=== PATIENT | female | born 1955 | race Caucasian/White ===

== ENCOUNTER 2016-03-07 19:33 | Emergency (ER) | payer BC ==
[~2016-03-07 19:33] MED LIST: /PANT40TA OR; /SUCR1TA OR; ACIPHEX OR; ALBUTEROL INH; ATEN100T OR; BACL10TA2; BACL10TA2 OR; BACL10TA2 PO; CETI10TA OR; CLON0.5T OR; DYMI137S; EFFE150C OR; ESTRACE CREAM PV; FLON0.05; Hydrocodone OR; KEFL500C7 PO; LAST0.25 OU; LIDO5DIS EXT; LIPI20TA OR; LISI10TA4 OR; LOSA25TA8 PO; LOTEMAX OU; MAGN500T2 PO; METO25TA2; MIRALEX OR; MULTIVIT PO; NEUR100C OR; NORT10CA2 OR; OMEP20TA7 OR; OMEPRAZOLE BICARB PO; PATADAY OU; PENNSAID TOP; RESTASIS EYE DROPS OU; SAVELLA OR; SEPT800T OR; SING10TA31 OR; TOPI50TA OR; TPS CREAM TOP; TRAM50TA2; TRAM50TA2 OR; TRAMADOL OR; TRAZ50TA OR; ULTR200T OR; ULTR300T; VENL100T PO; VENL25TA2 OR; VENTAER IN; VICO10TA11 PO; VICO5TAB; VICODINES TAB PO; VITAMIN B-6 PO; VOLT1GEL EX; VOLT1GEL TOP; ZOLO50TA PO; [UNRECOGNIZED DRUG - CODE] OR
[2016-03-07] MEDS ORDERED: CLOPIDOGREL 300 MG TAB (PLAVIX) ONE (19:34)
[2016-03-07] MEDS ORDERED: TENECTEPLASE 50 MG KIT (TNKase)(J3101) ONE (19:34)
[2016-03-07] MEDS ORDERED: NITROGLYCERIN 2% OINT 1 GM *U/D* PKT As Ordered ONE (20:07)
[2016-03-07] MEDS ORDERED: ISOVUE-370 76% 100ML VIAL (Q9967) As Ordered ONE (20:12)
[2016-03-07 20:19] LABS: BASO % 0.2 % (0.0-1.0); EOS # 0.1 K/mm3 (0.0-0.50); LARGE UNSTAINED CELL # 0.3 K/mm3 (0.0-0.4); LARGE UNSTAINED CELL % 2.4 % (0.0-4.0); LYMPH # 2.4 K/mm3 (1.5-4.5); LYMPH % 20.4 % (24.0-44.0); MEAN CORPUSCULAR HGB CONC 34.8 g/dl (32.0-36.5); MONO # 0.6 K/mm3 (0.0-0.8); MONO % 4.7 % (0.0-5.0); NEUTROPHILS # 8.3 K/mm3 (1.8-7.7); NEUTROPHILS % 71.3 % (36.0-66.0); PLATELET COUNT, AUTOMATED 302 k/mm3 (150-450); RED CELL DISTRIBUTION WIDTH 12.9 % (11.5-14.5); WHITE BLOOD COUNT 11.6 K/mm3 (4.0-10.0)
[2016-03-07 20:26] LABS: INR 0.91
[2016-03-07] MEDS ORDERED: LABETALOL HCL 100 MG/20 ML VIAL As Ordered ONE (20:33)
[2016-03-07] MEDS ORDERED: fentaNYL 100 MCG/2 ML INJECTION (J3010) As Ordered ONE ×2 (20:33→21:15)
[2016-03-07 20:40] LABS: ANION GAP 12 MEQ/L (8-16); BLOOD UREA NITROGEN 12 MG/DL (7-18); CALCIUM LEVEL 8.8 MG/DL (8.8-10.2); CARBON DIOXIDE LEVEL 24 MEQ/L (21-32); CHLORIDE LEVEL 104 MEQ/L (98-107); CREATININE FOR GFR 0.67 MG/DL (0.55-1.02); GLOMERULAR FILTRATION RATE > 60.0 (>45); GLUCOSE, FASTING 138 MG/DL (80-110); POTASSIUM SERUM 3.3 MEQ/L (3.5-5.1); SODIUM LEVEL 140 MEQ/L (136-145)
[2016-03-07] MEDS ORDERED: hydrALAZINE INJ 20 MG/ML VIAL As Ordered ONE (20:56)
[2016-03-07] MEDS ORDERED: FAMOTIDINE 20 MG TAB As Ordered ONE (20:56)
[2016-03-07] MEDS ORDERED: HEPARIN SOD (PORCINE) 5000 UNITS/ML VIAL As Ordered ONE (20:56)
[2016-03-07] MEDS ORDERED: HEPARIN 25,000 UNITS/250 ML D5W BAG (100 UNITS/ML) As Ordered ONE (20:56)
--- NOTE | 2016-03-07 21:00 | REPUSA ---
Reason for examination : Rule out dissection Comparison: None. Technique: CAT scan of the thoracic and abdominal aorta was obtained with initial precontrast localiz ation. Post contrast thin section dynamic CAT scan was obtained and three-dimensional reconstructions were performed on an independent work station. Findings: AORTA: No aneurysmal dilatation or dissection. Scattered atherosclerotic calcifications noted. LUNG PARENCHYMA : No acute infiltrate, effusion, mass, suspicious nodule, or pneumothorax. Mild bilat eral lower linear atelectasis. HILUM AND MEDIASTINUM : No mass, suspicious cystic lesion, or enlarged adenopathy.. PLEURA : No mass or suspicious thickening. LOWER NECK/THYROID : Unremarkable AXILLA: No mass or enlarged adenopathy. Solid organs of the abdomen and pelvis are suboptimally evaluated the phase of injection. LIVER : Unremarkable GALLBLADDER : Unremarkable SPLEEN : Unremarkable PANCREAS : Unremarkable ADRENAL GLANDS : Unremarkable KIDNEYS : Unremarkable RETROPERITONEUM : No ascites, extraluminal air, or enlarged adenopathy. BOWEL : Normal caliber PELVIS : Uterus and adnexa are unremarkable. Left gluteal spinal stimulator device with wiring termin ating in the dorsal spinal canal at approximately T6-T7. OSSEOUS STRUCTURES : No acute fracture or suspicious lesion. Multilevel degenerative spurring of the spine. IMPRESSION: No aortic aneurysm or dissection.
--- NOTE | 2016-03-07 21:38 | EDDOCDS ---
Nurse's Notes [facility] Name: Lianne Tuttle Age: 60 yrs Sex: Female : 1955 Arrival Date: 03/07/2016 Time: 19:33 Bed 4 Private MD: Bill Tapia M.D. Diagnosis: ST elevation (STEMI) myocardial infarction of anterior wall Presentation: 03/07 19:41 Red Flag criteria, patient assessed and taken directly to a bed. 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 4 baby aspirin. Adult Sepsis Screening: The patient does not have new or worsening altered mentation. Patient has a respiratory rate of greater than or equal to 22 (1 point). Suicide/Homicide risk assessment- the patient denies having any suicidal and/or homicidal ideations and does not present with any other emotional, behavioral or mental health complaints. 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 Transition of care: patient was not received from another setting of care. 19:42 Acuity: JACLYN Level 2 sls1 19:42 Method Of Arrival: Walkin/Carried/Asstd sls1 21:29 Adult Sepsis Screening: Patient has a qSOFA score of 0- Negative Sepsis Screen. tm5 Triage Assessment: 19:51 General: Appears uncomfortable, Behavior is appropriate for age, cooperative. Pain: sls1 Location: chest Pain currently is 10 out of 10 on a pain scale. Pt Declines HIV testing. The patient is triaged at the bedside. See Assessment in Nurses Notes section of ED record. Neurological: No deficits noted. Cardiovascular: Chest pain is described as Pain is 10 out of 10 on a pain scale. radiates Does not radiate. episodes are continuous began 30 minutes prior to arrival. Respiratory: Airway is patent Respiratory effort is even, unlabored, Respiratory pattern is regular, symmetrical, Parent/caregiver reports the patient having shortness of breath at rest on exertion. Derm: No deficits noted. Historical: - Allergies: darvocet; Darvon; Morphine (Anxiety); - Home Meds: 1. naproxen 500 mg Oral tab 1 tab 2. Ventolin HFA 90 mcg/actuation Nebulizer HFAA 1 puff every 4 hours 3. Boniva 150 mg oral tab 1 tab monthly 4. rizatriptan 10 mg oral tab 1 tab 5. alendronate 70 mg/75 mL oral soln 75 mL once wkly 6. Lidoderm 5 % Topical ptmd 1 patch once daily 7. baclofen 10 mg Oral tab 1 tab 3 times per day 8. albuterol sulfate 90 mcg/actuation Inhl aepb 2 puffs every 4 hours 9. atenolol 100 mg Oral tab 50 mg once daily 10. Lipitor 20 mg Oral tab 1 tab once daily 11. Zyrtec 10 mg Oral cap 10 mg daily 12. clonazepam 0.5 mg Oral TbDL 1 tab 2 times per day 13. Voltaren 1 % Topical gel 4 times per day 14. gabapentin 400 mg Oral cap 1 cap 3 times per day 15. magnesium oxide 400 mg Oral tab twice a day 16. montelukast 10 mg oral tab 1 tab once daily 17. multivitamin Oral tab 1 tab daily 18. nortriptyline 25 mg Oral cap nightly 19. Protonix 40 mg Oral TbEC 1 tab 2 times per day 20. Restasis 0.05 % ophthalmic dpet 1 drop 2 times per day 21. Carafate 1 gram Oral tab 1 tab 4 times per day 22. Topamax 100 mg Oral tab 1 tab 2 times per day 23. Randolph 10-325 mg Oral tab every 8 hours 24. trazodone 50 mg Oral tab 3 tabs nightly 25. losartan 25 mg oral tab 1 tab once daily 26. Lastacaft 0.25 % ophthalmic drop once daily 27. Zoloft 50 mg Oral tab 1 tab once daily 28. Dymista 137-50 mcg/spray nasal spry - PMHx: Fibromyalgia; Hypertension; Migraine Headaches; hyperlipidemia; Anxiety; GERD; - PSHx: LASER DISC SURGERY LOWER BACK; Tonsillectomy; Cervical Discectomy; ; Sinus Surgery; Cataract Surgery- Bilateral; - Social history: Smoking status: Patient states was never smoker of tobacco. No barriers to communication noted, The patient speaks fluent Chinese, Speaks appropriately for age. - Family history: Not pertinent. - : The pt / caregiver states he / she is not on anticoagulants. Home medication list is obtained from the patient. - Exposure Risk Screening:: None identified. Screenin:01 Screening information is obtained from the patient. Fall risk: At risk due to prior tm5 history of falls. Assistance ADL's: requires no assistance with activities of daily living. Abuse/DV Screen: The patient / caregiver reports he/she is: not in a situation that causes fear, pain or injury. Nutritional screening: No deficits noted. Advance Directives: Currently, there is a health care proxy, [place]. home support is adequate. Assessment: 19:59 General: Appears uncomfortable, Behavior is appropriate for age, cooperative. Pain: tm5 Location: xyphoid area and mid-sternal area Pain currently is 8 out of 10 on a pain scale. Quality of pain is described as heavy, pressure, sharp, Pain began 30 min ago. Neurological: Level of Consciousness is awake, alert, Oriented to person, place, time. Cardiovascular: Capillary refill < 3 seconds in right fingers Heart tones S1 S2 present Rhythm is sinus bradycardia. Respiratory: Airway is patent Respiratory effort is even, unlabored, Respiratory pattern is regular, symmetrical, Breath sounds are clear bilaterally. GI: No deficits noted. : No deficits noted. Derm: Skin is pink, warm & dry. normal. Musculoskeletal: No deficits noted. 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 tm5 20:30 Reassessment: Patient states symptoms have improved. per pt chest pain is about 9/10 at tm5 this time, MD aware of this . Cardiovascular: Rhythm is sinus rhythm No ectopy. 21:26 Reassessment: Patient appears in no apparent distress at this time. Patient states tm5 symptoms have improved. pt still complains of mid sternal chest pain 9/10. Cardiovascular: Rhythm is sinus rhythm No ectopy. Vital Signs: 19:35 Pulse 48; Resp 22; Temp 96.3; Pulse Ox 100% ; Weight 90.72 kg; Height 5 ft. 2 in. cmb (157.48 cm); Pain 8/10; 19:41 Pulse 42 LA; mb9 19:51 BP 212 / 115; sls1 19:51 BP 198 / 105 (auto/); tm5 19:51 Pulse 62 MON; Resp 20 S; Pulse Ox 99% on 2 lpm NC; Pain 8/10; tm5 20:03 Weight 104.24 kg; Height 5 ft. 2 in. (157.48 cm) (M); feb 20:04 BP 203 / 95 (auto/); tm5 20:05 Pulse 58 MON; Pulse Ox 97% ; tm5 20:13 BP 181 / 93 (auto/); tm5 20:13 Pulse 60 MON; Pulse Ox 97% ; tm5 20:15 BP 174 / 96; Pulse 69; Resp 20; Pulse Ox 98% on R/A; Pain 8/10; tm5 20:29 BP 185 / 109 (auto/); tm5 20:29 Pulse 64 MON; Resp 20 S; Pulse Ox 98% on 4 lpm NC; Pain 9/10; tm5 20:35 BP 191 / 98 (auto/); tm5 20:35 Pulse 62 MON; Pulse Ox 98% on 4 lpm NC; tm5 21:10 BP 162 / 85; Pulse 77; Resp 20; Pulse Ox 98% on 4 lpm NC; Pain 9/10; tm5 21:10 BP 174 / 96; Pulse 74; Resp 20; Pulse Ox 98% on 4 lpm NC; Pain 8/10; tm5 21:26 BP 126 / 75; Pulse 88; Resp 20; Temp 98.6(O); Pulse Ox 98% on 4 lpm NC; Pain 8/10; tm5 20:03 Body Mass Index 42.03 (104.24 kg, 157.48 cm) ankita Vitals: 19:35 Log In Time: March 07, 2016 at 19:33. b ED Course: 19:34 Patient visited by [place]. cmb 19:34 Patient moved to Waiting cmb 19:35 Bill Tapia is Private Physician. cmb 19:38 RN notified that patient meets Red Flag criteria. cmb 19:39 Patient moved to 4 cmb 19:44 Triage Initiated sls1 19:46 Howard Rockwell DO is Attending Physician. mm11 19:46 Patient visited by Howard Rockwell DO. mm11 19:48 EKG done. (by ED staff). Reviewed by Howard Rockwell DO. ls3 19:57 Patient visited by Minerva Mancuso RN. tm5 19:57 Inserted saline lock: 18 gauge in right antecubital area The patient tolerated the tm5 procedure well. 19:58 ED physician to see patient. tm5 19:58 Inserted saline lock: 20 gauge in left antecubital area The patient tolerated the tm5 procedure well. 19:58 Missed attempts: 20 gauge X 2 in right hand, in left hand. tm5 20:01 The patient / caregiver is instructed regarding the plan of care and ED course. Cardiac tm5 monitor on. Pulse ox on. NIBP on. Family accompanied patient. 20:01 Warm blanket given. Pillow given. tm5 20:01 O2 via nasal cannula \T\ 2L/min. tm5 20:03 Patient visited by Howard Rockwell DO. mm11 20:24 Daphney Mccurdy,SHABANA is Primary Nurse. [facility] 20:29 Patient visited by Minerva Mancuso RN. tm5 20:29 Patient moved back from CT. tm5 20:31 Patient visited by Minerva Mancuso RN. tm5 20:31 [facility] [place] was scanned into [employer] and attached to record. gjb 20:31 Notified attending ED physician of MD aware of pt's blood pressure remaining elevated & tm5 her chest pain is still severe 10/29. 20:36 Patient visited by Minerva Mancuso RN. tm5 21:13 CT Chest Angio R/O PE Returned. EDMS 21:25 Patient visited by Minerva Mancuso RN. tm5 21:26 EKG done. (by ED staff). Reviewed by Howard Rockwell DO. armond 21:27 Patient visited by Mariann Ruiz PCA. armond 21:28 No procedures done that require assistance. tm5 Administered Medications: 20:06 Not Given (Duplicate Order): heparin (Thrombolytic Protocol, 12 units/kg/hr)) 56614 mm11 units IV at 12 units/kg/hr once; Max. dose 1000units/hr. No Lovenox past 18hrs/ draw labs. 20:06 Not Given (Duplicate Order): heparin (Thrombolytic Protocol, 60 units/kg)) 60 units/kg mm11 IVP once; max 4000 units. Ensure no Lovenox in past 18hr, labs drawn 20:15 Drug: Nitro-Bid 1 inches [Nitro-Bid 2 % transdermal ointment (1 inches)] Route: mgs Transdermal; Site: anterior chest wall; 20:36 Drug: fentaNYL (PF) 50 mcg [fentanyl (PF) 50 mcg/mL injection solution (1 mL)] Route: tm5 IVP; Site: left antecubital; 21:10 Follow up: BP 174 / 96; Pulse 74 bpm; Resp 20 bpm; Pulse Ox 98% 4 lpm Nasal Cannula; tm5 Pain 8/10 Adult; Response: No Adverse Reaction; Pain is decreased 20:38 Drug: Labetalol 10 mg [labetalol 5 mg/mL intravenous solution (2 mL)] Route: IVP; Rate: mgs bolus; Infused Over: 2 mins; Site: right antecubital; 21:26 Follow up: Response: Blood pressure is improved; No Adverse Reaction tm5 21:05 Drug: Tenecteplase (pt >90kg) 50 mg [tenecteplase 50 mg intravenous kit] Route: IV; mgs Rate: bolus; Site: right antecubital; :32 Follow up: Response: No Adverse Reaction tm5 21:09 Drug: hydrALAZINE 20 mg [hydralazine 20 mg/mL injection solution] Route: IV; Rate: tm5 bolus; Site: left antecubital; : Follow up: Response: Blood pressure is improved; No Adverse Reaction tm5 21:12 Drug: heparin (Thrombolytic Protocol, 60 units/kg)) 4000 units [heparin (porcine) 5,000 tm5 unit/mL injection solution (0.8 mL)] {Co-Signature: mgs (Howard Saxena RN).} Route: IVP; Site: right antecubital; :25 Follow up: Response: No Adverse Reaction; No significant change. tm5 21:13 Drug: Famotidine 20 mg [famotidine 20 mg tablet (1 tabs)] Route: PO; tm5 21:13 Drug: heparin (Thrombolytic Protocol, 12 units/kg/hr)) 73790 units [heparin (porcine) tm5 25,000 unit/250 mL (100 unit/mL) in dextrose 5 % IV] {Co-Signature: mgs (Howard Saxena RN).} Route: IV; Rate: 1000 units/hr; Site: right antecubital; :25 Follow up: IV Status: Infusion continued on transport tm5 21:25 Drug: fentaNYL (PF) 75 mcg [fentanyl (PF) 50 mcg/mL injection solution (1.5 mL)] Route: tm5 IVP; Site: left antecubital; :26 Follow up: Response: Pt left department before re-evaluation is appropriate tm5 21:25 Drug: Plavix - Clopidogrel 300 mg [clopidogrel 75 mg tablet (4 tabs)] Route: PO; mar 11: Follow up: Response: Pt left department before re-evaluation is appropriate tm5 Order Results: Lab Order: Basic Metabolic Profile; SPEC'M 03/07/16 19:47 Test: GLUCOSE, FASTING; Value: 138; Range: 80-110; Abnormal: Above high normal; Units: MG/DL; Status: F Test: BLOOD UREA NITROGEN; Value: 12; Range: 7-18; Units: MG/DL; Status: F Test: CREATININE FOR GFR; Value: 0.67; Range: 0.55-1.02; Units: MG/DL; Status: F Test: GLOMERULAR FILTRATION RATE; Value: > 60.0; Range: >45; Status: F Test: SODIUM LEVEL; Value: 140; Range: 136-145; Units: MEQ/L; Status: F Test: POTASSIUM SERUM; Value: 3.3; Range: 3.5-5.1; Abnormal: Below low normal; Units: MEQ/L; Status: F Test: CHLORIDE LEVEL; Value: 104; Range: 98-107; Units: MEQ/L; Status: F Test: CARBON DIOXIDE LEVEL; Value: 24; Range: 21-32; Units: MEQ/L; Status: F Test: ANION GAP; Value: 12; Range: 8-16; Units: MEQ/L; Status: F Test: CALCIUM LEVEL; Value: 8.8; Range: 8.8-10.2; Units: MG/DL; Status: F Test Note: ; Units are mL/min/1.73 m2 Chronic Kidney Disease Staging per NKF: Stage I & II GFR >=60 Normal to Mildly Decreased Stage III GFR 30-59 Moderately Decreased Stage IV GFR 15-29 Severely Decreased Stage V GFR <15 Very Little GFR Left ESRD GFR <15 [address] TEACHERS' AIDE Lab Order: CBC with Diff; SPEC'M 03/07/16 19:47 Test: WHITE BLOOD COUNT; Value: 11.6; Range: 4.0-10.0; Abnormal: Above high normal; Units: K/mm3; Status: F Test: RED BLOOD COUNT; Value: 4.24; Range: 4.00-5.40; Units: M/mm3; Status: F Test: HEMOGLOBIN; Value: 13.5; Range: 12.0-16.0; Units: g/dl; Status: F Test: HEMATOCRIT; Value: 39.0; Range: 36.0-47.0; Units: %; Status: F Test: MEAN CORPUSCULAR VOLUME; Value: 92.0; Range: 80.0-96.0; Units: fl; Status: F Test: MEAN CORPUSCULAR HEMOGLOBIN; Value: 32.0; Range: 27.0-33.0; Units: pg; Status: F Test: MEAN CORPUSCULAR HGB CONC; Value: 34.8; Range: 32.0-36.5; Units: g/dl; Status: F Test: RED CELL DISTRIBUTION WIDTH; Value: 12.9; Range: 11.5-14.5; Units: %; Status: F Test: PLATELET COUNT, AUTOMATED; Value: 302; Range: 150-450; Units: k/mm3; Status: F Test: NEUTROPHILS %; Value: 71.3; Range: 36.0-66.0; Abnormal: Above high normal; Units: %; Status: F Test: LYMPH %; Value: 20.4; Range: 24.0-44.0; Abnormal: Below low normal; Units: %; Status: F Test: MONO %; Value: 4.7; Range: 0.0-5.0; Units: %; Status: F Test: EOS %; Value: 1.0; Range: 0.0-3.0; Units: %; Status: F Test: BASO %; Value: 0.2; Range: 0.0-1.0; Units: %; Status: F Test: LARGE UNSTAINED CELL %; Value: 2.4; Range: 0.0-4.0; Units: %; Status: F Test: NEUTROPHILS #; Value: 8.3; Range: 1.8-7.7; Abnormal: Above high normal; Units: K/mm3; Status: F Test: LYMPH #; Value: 2.4; Range: 1.5-4.5; Units: K/mm3; Status: F Test: MONO #; Value: 0.6; Range: 0.0-0.8; Units: K/mm3; Status: F Test: EOS #; Value: 0.1; Range: 0.0-0.50; Units: K/mm3; Status: F Test: BASO #; Value: 0.0; Range: 0.0-0.2; Units: K/mm3; Status: F Test: LARGE UNSTAINED CELL #; Value: 0.3; Range: 0.0-0.4; Units: K/mm3; Status: F Lab Order: Cardiac Injury Profile; [facility] 03/07/16 19:47 Test: CPK CREATINE PHOSPHOKINASE; Value: 106; Range: 26-192; Units: U/L; Status: F Test: CK-MB VALUE MASS; Value: 5.6; Range: 0.0-3.6; Abnormal: Above high normal; Units: NG/ML; Status: F Test: MB/CK RELATIVE INDEX; Value: 5.28; Range: < OR =4; Abnormal: Above high normal; Status: F Test Note: ; DIAGNOSIS CRITERIA MMB ng/ml Relative Index (RI) NON-AMI < or = 5 N/A PERKINS ZONE > 5 < or = 4 AMI > 5 > 4 Lab Order: PT/INR; [facility] 03/07/16 19:47 Test: PROTHROMBIN TIME; Value: 12.4; Range: 12.3-14.5; Units: SECONDS; Status: F Test: INR; Value: 0.91; Status: F Test Note: ; THERAPUTIC HUMAN INR VALUES INDICATIONS NORMAL RANGES PROPHYLAXIS/TREATMENT OF: VENOUS THROMBOSIS 2.0-3.0 PULMONARY EMBOLISM 2.0-3.0 PREVENTION OF SYSTEMIC EMBOLISM FROM: TISSUE HEART VALVES 2.0-3.0 ACUTE MYOCARDIAL INFARCTION 2.0-3.0 VALVULAR HEART DISEASE 2.0-3.0 ATRIAL FIBRILLATION 2.0-3.0 MECHANICAL VALVES(HIGH RISK) 2.5-3.5 RECURRENT MYOCARDIAL INFARCTION 2.5-3.5 Lab Order: PTT; [facility] 03/07/16 19:47 Test: PARTIAL THROMBOPLASTIN TIME; Value: 24.9; Range: 26.6-37.1; Abnormal: Below low normal; Units: SECONDS; Status: F Lab Order: Troponin; [facility] 03/07/16 19:47 Test: TROPONIN I; Value: 1.20; Range: < 0.10; Abnormal: Above high normal; Units: NG/ML; Status: F Test Note: ; Troponin I Reference Interval for Siemens [place] LOCI: 99th Percentile= 0.00-0.045 ng/ml Risk Stratification: <= 0.10 ng/ml Decreased Risk for Adverse Clinical Events. 0.10-1.50 ng/ml Increased Risk for Adverse Clinical Events. Evaluation of additional criterion and/or repeat testing in 2-6 hours is suggested to rule out myocardial damage. >= 1.50 ng/ml Indicative of Myocardial Injury. Radiology Order: CT Chest Angio R/O PE Test: CT Chest Angio R/O PE REASON FOR EXAMINATION: r/o dissection; ; Reason for examination : Rule out dissection; Comparison: None.; Technique: CAT scan of the thoracic and abdominal aorta was obtained with initial precontrast localiz; ation. Post contrast thin section dynamic CAT scan was obtained and three-dimensional reconstructions; were performed on an independent work station.; Findings:; AORTA: No aneurysmal dilatation or dissection. Scattered atherosclerotic calcifications noted.; LUNG PARENCHYMA : No acute infiltrate, effusion, mass, suspicious nodule, or pneumothorax. Mild bilat; eral lower linear atelectasis.; HILUM AND MEDIASTINUM : No mass, suspicious cystic lesion, or enlarged adenopathy..; PLEURA : No mass or suspicious thickening.; LOWER NECK/THYROID : Unremarkable; AXILLA: No mass or enlarged adenopathy.; Solid organs of the abdomen and pelvis are suboptimally evaluated the phase of injection.; LIVER : Unremarkable; GALLBLADDER : Unremarkable; SPLEEN : Unremarkable; PANCREAS : Unremarkable; ADRENAL GLANDS : Unremarkable; KIDNEYS : Unremarkable; RETROPERITONEUM : No ascites, extraluminal air, or enlarged adenopathy.; BOWEL : Normal caliber; PELVIS : Uterus and adnexa are unremarkable. Left gluteal spinal stimulator device with wiring termin; ating in the dorsal spinal canal at approximately T6-T7.; OSSEOUS STRUCTURES : No acute fracture or suspicious lesion. Multilevel degenerative spurring of the; spine.; IMPRESSION:; No aortic aneurysm or dissection.; ; Outcome: 20:59 ER care complete, transfer ordered by Provider. mm11 21:28 Discharge Assessment: Patient awake, alert and oriented x 3. No cognitive and/or tm5 functional deficits noted. Patient verbalized understanding of disposition instructions. patient administered narcotics - yes. Patient was admitted to the hospital or transferred to another facility. The following High Risk Discharge criteria are identified: None. Transferred to [facility]. by EMS ground report to accompanying personnel Julee Reyes & dice spotter Radha Larsen. Condition: good Condition: stable Condition: improved. CT Study completed. Property :Personal belongings accompany Pt. 21:34 Condition: unchanged. Admission hand-off: Report called to Renee Patterson RN on D unit [facility]. 21:37 Patient left the ED. ankita Signatures: Dispatcher [employer] EDMS Tiffany Smart RN Howard Plata, DO mm11 Mariann Ruiz, DIRECTOR NON PROFIT DIRECTOR NON PROFIT armond Karol Mack RN RN sls1 Daphney Mccurdy,RN RN [facility] [place] cmb Howard Saxena,SHABANA RN mgs Thomas SpragueRN RN mb9 Naomi Dover, DIRECTOR NON PROFIT DIRECTOR NON PROFIT ls3 Joanne Mireles Minerva AlbarranRN RN tm5 Howard Saxena RN mgs Corrections: (The following items were deleted from the chart) 19:39 19:35 Pulse 48bpm; Resp 22bpm; Pulse Ox 100%; Temp 96.3F; 90.72 kg; Height 5 ft. 2 in.; cmb BMI: 36.5; Pain 8/10; cmb MTDD
--- NOTE | 2016-03-07 21:38 | EDDOCDS ---
Physician Documentation [facility] Name: Lianne Tuttle Age: 60 yrs Sex: Female : 1955 Arrival Date: 03/07/2016 Time: 19:33 Bed 4 Private MD: Bill Tapia M.D. Disposition: 03/07/16 20:59 Transfer ordered to [facility]. Diagnosis is ST elevation (STEMI) myocardial infarction of anterior wall. - Reason for transfer: Higher level of care. - Accepting physician is Yuan. - Condition is Unchanged. - Problem is an acute exacerbation. - Symptoms have improved. Historical: - Allergies: darvocet; Darvon; Morphine (Anxiety); - Home Meds: 1. naproxen 500 mg Oral tab 1 tab 2. Ventolin HFA 90 mcg/actuation Nebulizer HFAA 1 puff every 4 hours 3. Boniva 150 mg oral tab 1 tab monthly 4. rizatriptan 10 mg oral tab 1 tab 5. alendronate 70 mg/75 mL oral soln 75 mL once wkly 6. Lidoderm 5 % Topical ptmd 1 patch once daily 7. baclofen 10 mg Oral tab 1 tab 3 times per day 8. albuterol sulfate 90 mcg/actuation Inhl aepb 2 puffs every 4 hours 9. atenolol 100 mg Oral tab 50 mg once daily 10. Lipitor 20 mg Oral tab 1 tab once daily 11. Zyrtec 10 mg Oral cap 10 mg daily 12. clonazepam 0.5 mg Oral TbDL 1 tab 2 times per day 13. Voltaren 1 % Topical gel 4 times per day 14. gabapentin 400 mg Oral cap 1 cap 3 times per day 15. magnesium oxide 400 mg Oral tab twice a day 16. montelukast 10 mg oral tab 1 tab once daily 17. multivitamin Oral tab 1 tab daily 18. nortriptyline 25 mg Oral cap nightly 19. Protonix 40 mg Oral TbEC 1 tab 2 times per day 20. Restasis 0.05 % ophthalmic dpet 1 drop 2 times per day 21. Carafate 1 gram Oral tab 1 tab 4 times per day 22. Topamax 100 mg Oral tab 1 tab 2 times per day 23. [place] 10-325 mg Oral tab every 8 hours 24. trazodone 50 mg Oral tab 3 tabs nightly 25. losartan 25 mg oral tab 1 tab once daily 26. Lastacaft 0.25 % ophthalmic drop once daily 27. Zoloft 50 mg Oral tab 1 tab once daily 28. Dymista 137-50 mcg/spray nasal spry - PMHx: Fibromyalgia; Hypertension; Migraine Headaches; hyperlipidemia; Anxiety; GERD; - PSHx: LASER DISC SURGERY LOWER BACK; Tonsillectomy; Cervical Discectomy; ; Sinus Surgery; Cataract Surgery- Bilateral; - Social history: Smoking status: Patient states was never smoker of tobacco. No barriers to communication noted, The patient speaks fluent Azeri, Speaks appropriately for age. - Family history: Not pertinent. - : The pt / caregiver states he / she is not on anticoagulants. Home medication list is obtained from the patient. - Exposure Risk Screening:: None identified. Vital Signs: 03/07 19:35 Pulse 48; Resp 22; Temp 96.3; Pulse Ox 100% ; Weight 90.72 kg / 200 lbs; Height 5 ft. 2 cmb in. (157.48 cm); Pain 8/10; 19:41 Pulse 42 LA; mb9 19:51 BP 212 / 115; sls1 19:51 BP 198 / 105 (auto/); tm5 19:51 Pulse 62 MON; Resp 20 S; Pulse Ox 99% on 2 lpm NC; Pain 8/10; tm5 20:03 Weight 104.24 kg / 229.81 lbs; Height 5 ft. 2 in. (157.48 cm) (M); feb 20:04 BP 203 / 95 (auto/); tm5 20:05 Pulse 58 MON; Pulse Ox 97% ; tm5 20:13 BP 181 / 93 (auto/); tm5 20:13 Pulse 60 MON; Pulse Ox 97% ; tm5 20:15 BP 174 / 96; Pulse 69; Resp 20; Pulse Ox 98% on R/A; Pain 8/10; tm5 20:29 BP 185 / 109 (auto/); tm5 20:29 Pulse 64 MON; Resp 20 S; Pulse Ox 98% on 4 lpm NC; Pain 9/10; tm5 20:35 BP 191 / 98 (auto/); tm5 20:35 Pulse 62 MON; Pulse Ox 98% on 4 lpm NC; tm5 21:10 BP 162 / 85; Pulse 77; Resp 20; Pulse Ox 98% on 4 lpm NC; Pain 9/10; tm5 21:10 BP 174 / 96; Pulse 74; Resp 20; Pulse Ox 98% on 4 lpm NC; Pain 8/10; tm5 21:26 BP 126 / 75; Pulse 88; Resp 20; Temp 98.6(O); Pulse Ox 98% on 4 lpm NC; Pain 8/10; tm5 20:03 Body Mass Index 42.03 (104.24 kg, 157.48 cm) ankita MDM: 19:43 ECG WITH READING ER PHYS+CARDIAG ordered. EDMS 20:03 Famotidine 20 mg PO once ordered. mm11 20:03 Nitro-Bid Ointment 2 % 1 inches Transdermal once ordered. mm11 20:03 Tenecteplase (pt >90kg) 50 mg IV at bolus bolus; IV push over 5 seconds, flush line mm11 with 10mL of NS or D5W. ordered. 20:03 heparin (Thrombolytic Protocol, 12 units/kg/hr)) 94983 units IV at 12 units/kg/hr once; mm11 Max. dose 1000units/hr. No Lovenox past 18hrs/ draw labs. ordered. 20:03 heparin (Thrombolytic Protocol, 60 units/kg)) 60 units/kg IVP once; max 4000 units. mm11 Ensure no Lovenox in past 18hr, labs drawn ordered. 20:03 Cupola Mechanic/Pulse Ox/q 15 min VS ordered. mm11 20:03 Draw and hold 1 red top tube ordered. mm11 20:03 IV Saline Lock x 2 ordered. mm11 20:03 Oxygen at 4L/Min NC or Home dosage ordered. mm11 20:03 Rhythm Strip to chart ordered. mm11 20:04 Basic Metabolic Profile Ordered. EDMS 20:04 CBC with Diff Ordered. EDMS 20:04 Cardiac Injury Profile Ordered. EDMS 20:04 PT/INR Ordered. EDMS 20:04 PTT Ordered. EDMS 20:04 Troponin Ordered. EDMS 20:04 Chest, 1 View Ordered. EDMS 20:04 CT Chest Angio R/O PE Ordered. EDMS 20:05 CT ABD & PELVIS: IV Contrast Only Ordered. EDMS 20:07 heparin (Thrombolytic Protocol, 12 units/kg/hr)) 49985 units IV at 1000 units/hr once; mm11 Max. dose 1000units/hr. No Lovenox past 18hrs/ draw labs. ordered. 20:07 heparin (Thrombolytic Protocol, 60 units/kg)) 4000 units IVP once; max 4000 units. mm11 Ensure no Lovenox in past 18hr, labs drawn ordered. 20:30 Labetalol 10 mg IVP at bolus once over 2 mins ordered. mm11 20:31 [facility] Payment Agreement was scanned into [employer] and attached to record. gjb 20:31 Financial registration complete. gjb 20:33 fentaNYL (PF) 50 mcg IVP once ordered. mm11 20:53 hydrALAZINE 20 mg IV at bolus once ordered. mm11 20:55 fentaNYL (PF) 75 mcg IVP once ordered. mm11 20:58 Basic Metabolic Profile Reviewed. mm11 20:58 CBC with Diff Reviewed. mm11 20:58 Cardiac Injury Profile Reviewed. mm11 20:58 PTT Reviewed. mm11 20:58 Troponin Reviewed. mm11 20:58 PT/INR Reviewed. mm11 21:22 Plavix - Clopidogrel 300 mg PO once ordered. mm11 21:23 ECG WITH READING ER PHYS+CARDIAG ordered. EDMS Administered Medications: 20:06 Not Given (Duplicate Order): heparin (Thrombolytic Protocol, 12 units/kg/hr)) 36096 mm11 units IV at 12 units/kg/hr once; Max. dose 1000units/hr. No Lovenox past 18hrs/ draw labs. 20:06 Not Given (Duplicate Order): heparin (Thrombolytic Protocol, 60 units/kg)) 60 units/kg mm11 IVP once; max 4000 units. Ensure no Lovenox in past 18hr, labs drawn 20:15 Drug: Nitro-Bid 1 inches [Nitro-Bid 2 % transdermal ointment (1 inches)] Route: mgs Transdermal; Site: anterior chest wall; 20:36 Drug: fentaNYL (PF) 50 mcg [fentanyl (PF) 50 mcg/mL injection solution (1 mL)] Route: tm5 IVP; Site: left antecubital; 21:10 Follow up: BP 174 / 96; Pulse 74 bpm; Resp 20 bpm; Pulse Ox 98% 4 lpm Nasal Cannula; tm5 Pain 8/10 Adult; Response: No Adverse Reaction; Pain is decreased 20:38 Drug: Labetalol 10 mg [labetalol 5 mg/mL intravenous solution (2 mL)] Route: IVP; Rate: mgs bolus; Infused Over: 2 mins; Site: right antecubital; : Follow up: Response: Blood pressure is improved; No Adverse Reaction tm5 21:05 Drug: Tenecteplase (pt >90kg) 50 mg [tenecteplase 50 mg intravenous kit] Route: IV; mgs Rate: bolus; Site: right antecubital; :32 Follow up: Response: No Adverse Reaction tm5 21:09 Drug: hydrALAZINE 20 mg [hydralazine 20 mg/mL injection solution] Route: IV; Rate: tm5 bolus; Site: left antecubital; Follow up: Response: Blood pressure is improved; No Adverse Reaction tm5 21:12 Drug: heparin (Thrombolytic Protocol, 60 units/kg)) 4000 units [heparin (porcine) 5,000 tm5 unit/mL injection solution (0.8 mL)] {Co-Signature: mgs (Howard Saxena RN).} Route: IVP; Site: right antecubital; Follow up: Response: No Adverse Reaction; No significant change. tm5 21:13 Drug: Famotidine 20 mg [famotidine 20 mg tablet (1 tabs)] Route: PO; 5 21:13 Drug: heparin (Thrombolytic Protocol, 12 units/kg/hr)) 06512 units [heparin (porcine) tm5 25,000 unit/250 mL (100 unit/mL) in dextrose 5 % IV] {Co-Signature: mgs (Howard Saxena RN).} Route: IV; Rate: 1000 units/hr; Site: right antecubital; Follow up: IV Status: Infusion continued on transport tm5 21:25 Drug: fentaNYL (PF) 75 mcg [fentanyl (PF) 50 mcg/mL injection solution (1.5 mL)] Route: tm5 IVP; Site: left antecubital; Follow up: Response: Pt left department before re-evaluation is appropriate tm5 21:25 Drug: Plavix - Clopidogrel 300 mg [clopidogrel 75 mg tablet (4 tabs)] Route: PO; mar 11 Follow up: Response: Pt left department before re-evaluation is appropriate tm5 Signatures: Dispatcher [employer] Tiffany Morley RN RN jan Maynard, Matthew, DO DO mm11 Karol Mack RN RN sls1 Joanne Mireles Tonya, RN RN tm5 Howard Saxena RN mgs Howard Saxena RN mgs The chart was reviewed and I authenticate all verbal orders and agree with the evaluation and treatment provided.Corrections: (The following items were deleted from the chart) 21:32 20:03 Oxygen at 15 Liters/Minute NRB Mask ordered. mm11 tm5 Attachments: 20:31 [facility] Payment Agreement gjb MTDD
--- NOTE | 2016-03-08 06:48 | REP ---
Clinical: Chest pain and suspected dissection . Comparison: 09/03/2015 . Findings: The mediastinum and cardiac silhouette are stable and within normal limits for portable technique. The lung avalos demonstrate minimal chronic changes and subtle linear plate-like atelectasis at the left lower lung zone. No acute consolidation, effusion, or pneumothorax. Skeletal structures are intact. Impression: Trace linear atelectasis in the left lung zone. Signed by Ari Francis MD 03/08/2016 06:39 A
--- NOTE | 2016-03-08 08:05 | ECGEPIP ---
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
--- NOTE | 2016-03-08 08:07 | ECGEPIP ---
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
--- NOTE | 2016-03-09 22:38 | EDDOCDS ---
Physician Documentation [facility] Name: Lianne Tuttle Age: 60 yrs Sex: Female : 1955 Arrival Date: 03/07/2016 Time: 19:33 Bed 4 Private MD: Bill Tapia M.D. Disposition: 03/07/16 20:59 Transfer ordered to [facility]. Diagnosis is ST elevation (STEMI) myocardial infarction of anterior wall. - Reason for transfer: Higher level of care. - Accepting physician is Yuan. - Condition is Unchanged. - Problem is an acute exacerbation. - Symptoms have improved. Historical: - Allergies: darvocet; Darvon; Morphine (Anxiety); - Home Meds: 1. naproxen 500 mg Oral tab 1 tab 2. Ventolin HFA 90 mcg/actuation Nebulizer HFAA 1 puff every 4 hours 3. Boniva 150 mg oral tab 1 tab monthly 4. rizatriptan 10 mg oral tab 1 tab 5. alendronate 70 mg/75 mL oral soln 75 mL once wkly 6. Lidoderm 5 % Topical ptmd 1 patch once daily 7. baclofen 10 mg Oral tab 1 tab 3 times per day 8. albuterol sulfate 90 mcg/actuation Inhl aepb 2 puffs every 4 hours 9. atenolol 100 mg Oral tab 50 mg once daily 10. Lipitor 20 mg Oral tab 1 tab once daily 11. Zyrtec 10 mg Oral cap 10 mg daily 12. clonazepam 0.5 mg Oral TbDL 1 tab 2 times per day 13. Voltaren 1 % Topical gel 4 times per day 14. gabapentin 400 mg Oral cap 1 cap 3 times per day 15. magnesium oxide 400 mg Oral tab twice a day 16. montelukast 10 mg oral tab 1 tab once daily 17. multivitamin Oral tab 1 tab daily 18. nortriptyline 25 mg Oral cap nightly 19. Protonix 40 mg Oral TbEC 1 tab 2 times per day 20. Restasis 0.05 % ophthalmic dpet 1 drop 2 times per day 21. Carafate 1 gram Oral tab 1 tab 4 times per day 22. Topamax 100 mg Oral tab 1 tab 2 times per day 23. [place] 10-325 mg Oral tab every 8 hours 24. trazodone 50 mg Oral tab 3 tabs nightly 25. losartan 25 mg oral tab 1 tab once daily 26. Lastacaft 0.25 % ophthalmic drop once daily 27. Zoloft 50 mg Oral tab 1 tab once daily 28. Dymista 137-50 mcg/spray nasal spry - PMHx: Fibromyalgia; Hypertension; Migraine Headaches; hyperlipidemia; Anxiety; GERD; - PSHx: LASER DISC SURGERY LOWER BACK; Tonsillectomy; Cervical Discectomy; ; Sinus Surgery; Cataract Surgery- Bilateral; - Social history: Smoking status: Patient states was never smoker of tobacco. No barriers to communication noted, The patient speaks fluent Croatian, Speaks appropriately for age. - Family history: Not pertinent. - : The pt / caregiver states he / she is not on anticoagulants. Home medication list is obtained from the patient. - Exposure Risk Screening:: None identified. Vital Signs: 03/07 19:35 Pulse 48; Resp 22; Temp 96.3; Pulse Ox 100% ; Weight 90.72 kg / 200 lbs; Height 5 ft. 2 cmb in. (157.48 cm); Pain 8/10; 19:41 Pulse 42 LA; mb9 19:51 BP 212 / 115; sls1 19:51 BP 198 / 105 (auto/); tm5 19:51 Pulse 62 MON; Resp 20 S; Pulse Ox 99% on 2 lpm NC; Pain 8/10; tm5 20:03 Weight 104.24 kg / 229.81 lbs; Height 5 ft. 2 in. (157.48 cm) (M); feb 20:04 BP 203 / 95 (auto/); tm5 20:05 Pulse 58 MON; Pulse Ox 97% ; tm5 20:13 BP 181 / 93 (auto/); tm5 20:13 Pulse 60 MON; Pulse Ox 97% ; tm5 20:15 BP 174 / 96; Pulse 69; Resp 20; Pulse Ox 98% on R/A; Pain 8/10; tm5 20:29 BP 185 / 109 (auto/); tm5 20:29 Pulse 64 MON; Resp 20 S; Pulse Ox 98% on 4 lpm NC; Pain 9/10; tm5 20:35 BP 191 / 98 (auto/); tm5 20:35 Pulse 62 MON; Pulse Ox 98% on 4 lpm NC; tm5 21:10 BP 162 / 85; Pulse 77; Resp 20; Pulse Ox 98% on 4 lpm NC; Pain 9/10; tm5 21:10 BP 174 / 96; Pulse 74; Resp 20; Pulse Ox 98% on 4 lpm NC; Pain 8/10; tm5 21:26 BP 126 / 75; Pulse 88; Resp 20; Temp 98.6(O); Pulse Ox 98% on 4 lpm NC; Pain 8/10; tm5 20:03 Body Mass Index 42.03 (104.24 kg, 157.48 cm) ankita MDM: 19:43 ECG WITH READING ER PHYS+CARDIAG ordered. EDMS 20:03 Famotidine 20 mg PO once ordered. mm11 20:03 Nitro-Bid Ointment 2 % 1 inches Transdermal once ordered. mm11 20:03 Tenecteplase (pt >90kg) 50 mg IV at bolus bolus; IV push over 5 seconds, flush line mm11 with 10mL of NS or D5W. ordered. 20:03 heparin (Thrombolytic Protocol, 12 units/kg/hr)) 31637 units IV at 12 units/kg/hr once; mm11 Max. dose 1000units/hr. No Lovenox past 18hrs/ draw labs. ordered. 20:03 heparin (Thrombolytic Protocol, 60 units/kg)) 60 units/kg IVP once; max 4000 units. mm11 Ensure no Lovenox in past 18hr, labs drawn ordered. 20:03 Surg Nurse/Pulse Ox/q 15 min VS ordered. mm11 20:03 Draw and hold 1 red top tube ordered. mm11 20:03 IV Saline Lock x 2 ordered. mm11 20:03 Oxygen at 4L/Min NC or Home dosage ordered. mm11 20:03 Rhythm Strip to chart ordered. mm11 20:04 Basic Metabolic Profile Ordered. EDMS 20:04 CBC with Diff Ordered. EDMS 20:04 Cardiac Injury Profile Ordered. EDMS 20:04 PT/INR Ordered. EDMS 20:04 PTT Ordered. EDMS 20:04 Troponin Ordered. EDMS 20:04 Chest, 1 View Ordered. EDMS 20:04 CT Chest Angio R/O PE Ordered. EDMS 20:05 CT ABD & PELVIS: IV Contrast Only Ordered. EDMS 20:07 heparin (Thrombolytic Protocol, 12 units/kg/hr)) 54352 units IV at 1000 units/hr once; mm11 Max. dose 1000units/hr. No Lovenox past 18hrs/ draw labs. ordered. 20:07 heparin (Thrombolytic Protocol, 60 units/kg)) 4000 units IVP once; max 4000 units. mm11 Ensure no Lovenox in past 18hr, labs drawn ordered. 20:30 Labetalol 10 mg IVP at bolus once over 2 mins ordered. mm11 20:31 [facility] Payment Agreement was scanned into [employer] and attached to record. gjb 20:31 Financial registration complete. gjb 20:33 fentaNYL (PF) 50 mcg IVP once ordered. mm11 20:53 hydrALAZINE 20 mg IV at bolus once ordered. mm11 20:55 fentaNYL (PF) 75 mcg IVP once ordered. mm11 20:58 Basic Metabolic Profile Reviewed. mm11 20:58 CBC with Diff Reviewed. mm11 20:58 Cardiac Injury Profile Reviewed. mm11 20:58 PTT Reviewed. mm11 20:58 Troponin Reviewed. mm11 20:58 PT/INR Reviewed. mm11 21:22 Plavix - Clopidogrel 300 mg PO once ordered. mm11 21:23 ECG WITH READING ER PHYS+CARDIAG ordered. EDMS 03/08 10:10 T-Sheet-- Draft Copy was scanned into [employer] and attached to record. gb 10:11 ECG/EKG was scanned into [employer] and attached to record. gb Administered Medications: 03/07 20:06 Not Given (Duplicate Order): heparin (Thrombolytic Protocol, 12 units/kg/hr)) 21242 mm11 units IV at 12 units/kg/hr once; Max. dose 1000units/hr. No Lovenox past 18hrs/ draw labs. 20:06 Not Given (Duplicate Order): heparin (Thrombolytic Protocol, 60 units/kg)) 60 units/kg mm11 IVP once; max 4000 units. Ensure no Lovenox in past 18hr, labs drawn 20:15 Drug: Nitro-Bid 1 inches [Nitro-Bid 2 % transdermal ointment (1 inches)] Route: mgs Transdermal; Site: anterior chest wall; 20:36 Drug: fentaNYL (PF) 50 mcg [fentanyl (PF) 50 mcg/mL injection solution (1 mL)] Route: tm5 IVP; Site: left antecubital; 21:10 Follow up: BP 174 / 96; Pulse 74 bpm; Resp 20 bpm; Pulse Ox 98% 4 lpm Nasal Cannula; tm5 Pain 8/10 Adult; Response: No Adverse Reaction; Pain is decreased 20:38 Drug: Labetalol 10 mg [labetalol 5 mg/mL intravenous solution (2 mL)] Route: IVP; Rate: mgs bolus; Infused Over: 2 mins; Site: right antecubital; 21:26 Follow up: Response: Blood pressure is improved; No Adverse Reaction tm5 21:05 Drug: Tenecteplase (pt >90kg) 50 mg [tenecteplase 50 mg intravenous kit] Route: IV; mgs Rate: bolus; Site: right antecubital; 21:32 Follow up: Response: No Adverse Reaction tm5 21:09 Drug: hydrALAZINE 20 mg [hydralazine 20 mg/mL injection solution] Route: IV; Rate: tm5 bolus; Site: left antecubital; 21:26 Follow up: Response: Blood pressure is improved; No Adverse Reaction tm5 21:12 Drug: heparin (Thrombolytic Protocol, 60 units/kg)) 4000 units [heparin (porcine) 5,000 tm5 unit/mL injection solution (0.8 mL)] {Co-Signature: mgs (Howard Saxena RN).} Route: IVP; Site: right antecubital; 21:25 Follow up: Response: No Adverse Reaction; No significant change. tm5 21:13 Drug: Famotidine 20 mg [famotidine 20 mg tablet (1 tabs)] Route: PO; tm5 21:13 Drug: heparin (Thrombolytic Protocol, 12 units/kg/hr)) 82215 units [heparin (porcine) tm5 25,000 unit/250 mL (100 unit/mL) in dextrose 5 % IV] {Co-Signature: mgs (Howard Saxena RN).} Route: IV; Rate: 1000 units/hr; Site: right antecubital; 21:25 Follow up: IV Status: Infusion continued on transport tm5 21:25 Drug: fentaNYL (PF) 75 mcg [fentanyl (PF) 50 mcg/mL injection solution (1.5 mL)] Route: tm5 IVP; Site: left antecubital; 21:26 Follow up: Response: Pt left department before re-evaluation is appropriate tm5 21:25 Drug: Plavix - Clopidogrel 300 mg [clopidogrel 75 mg tablet (4 tabs)] Route: PO; mar 11: Follow up: Response: Pt left department before re-evaluation is appropriate tm5 Signatures: Dispatcher [employer] Tiffany Morley, RN RN Yasmine Gillespie, Reg Reg gb Howard Rockwell, DO mm11 Karol Mack RN RN sls1 Joanne Mireles [facility] Minerva Mancuso RN RN tm5 Howard Saxena RN mgs Howard Saxena RN mgs The chart was reviewed and I authenticate all verbal orders and agree with the evaluation and treatment provided.Corrections: (The following items were deleted from the chart) 21:32 20:03 Oxygen at 15 Liters/Minute NRB Mask ordered. mm11 tm5 Attachments: 20:31 [facility] Payment Agreement b 03/08 10:10 T-Sheet-- Draft Copy gb 10:11 ECG/EKG gb Chart Complete MTDD
--- NOTE | 2016-03-09 22:38 | EDDOCDS ---
Physician Documentation [facility] Name: Lianne Tuttle Age: 60 yrs Sex: Female : 1955 Arrival Date: 03/07/2016 Time: 19:33 Bed 4 Private MD: Bill Tapia M.D. Disposition: 03/07/16 20:59 Transfer ordered to [facility]. Diagnosis is ST elevation (STEMI) myocardial infarction of anterior wall. - Reason for transfer: Higher level of care. - Accepting physician is Yuan. - Condition is Unchanged. - Problem is an acute exacerbation. - Symptoms have improved. Historical: - Allergies: darvocet; Darvon; Morphine (Anxiety); - Home Meds: 1. naproxen 500 mg Oral tab 1 tab 2. Ventolin HFA 90 mcg/actuation Nebulizer HFAA 1 puff every 4 hours 3. Boniva 150 mg oral tab 1 tab monthly 4. rizatriptan 10 mg oral tab 1 tab 5. alendronate 70 mg/75 mL oral soln 75 mL once wkly 6. Lidoderm 5 % Topical ptmd 1 patch once daily 7. baclofen 10 mg Oral tab 1 tab 3 times per day 8. albuterol sulfate 90 mcg/actuation Inhl aepb 2 puffs every 4 hours 9. atenolol 100 mg Oral tab 50 mg once daily 10. Lipitor 20 mg Oral tab 1 tab once daily 11. Zyrtec 10 mg Oral cap 10 mg daily 12. clonazepam 0.5 mg Oral TbDL 1 tab 2 times per day 13. Voltaren 1 % Topical gel 4 times per day 14. gabapentin 400 mg Oral cap 1 cap 3 times per day 15. magnesium oxide 400 mg Oral tab twice a day 16. montelukast 10 mg oral tab 1 tab once daily 17. multivitamin Oral tab 1 tab daily 18. nortriptyline 25 mg Oral cap nightly 19. Protonix 40 mg Oral TbEC 1 tab 2 times per day 20. Restasis 0.05 % ophthalmic dpet 1 drop 2 times per day 21. Carafate 1 gram Oral tab 1 tab 4 times per day 22. Topamax 100 mg Oral tab 1 tab 2 times per day 23. Milford 10-325 mg Oral tab every 8 hours 24. trazodone 50 mg Oral tab 3 tabs nightly 25. losartan 25 mg oral tab 1 tab once daily 26. Lastacaft 0.25 % ophthalmic drop once daily 27. Zoloft 50 mg Oral tab 1 tab once daily 28. Dymista 137-50 mcg/spray nasal spry - PMHx: Fibromyalgia; Hypertension; Migraine Headaches; hyperlipidemia; Anxiety; GERD; - PSHx: LASER DISC SURGERY LOWER BACK; Tonsillectomy; Cervical Discectomy; ; Sinus Surgery; Cataract Surgery- Bilateral; - Social history: Smoking status: Patient states was never smoker of tobacco. No barriers to communication noted, The patient speaks fluent Swedish, Speaks appropriately for age. - Family history: Not pertinent. - : The pt / caregiver states he / she is not on anticoagulants. Home medication list is obtained from the patient. - Exposure Risk Screening:: None identified. Vital Signs: 03/07 19:35 Pulse 48; Resp 22; Temp 96.3; Pulse Ox 100% ; Weight 90.72 kg / 200 lbs; Height 5 ft. 2 cmb in. (157.48 cm); Pain 8/10; 19:41 Pulse 42 LA; mb9 19:51 BP 212 / 115; sls1 19:51 BP 198 / 105 (auto/); tm5 19:51 Pulse 62 MON; Resp 20 S; Pulse Ox 99% on 2 lpm NC; Pain 8/10; tm5 20:03 Weight 104.24 kg / 229.81 lbs; Height 5 ft. 2 in. (157.48 cm) (M); feb 20:04 BP 203 / 95 (auto/); tm5 20:05 Pulse 58 MON; Pulse Ox 97% ; tm5 20:13 BP 181 / 93 (auto/); tm5 20:13 Pulse 60 MON; Pulse Ox 97% ; tm5 20:15 BP 174 / 96; Pulse 69; Resp 20; Pulse Ox 98% on R/A; Pain 8/10; tm5 20:29 BP 185 / 109 (auto/); tm5 20:29 Pulse 64 MON; Resp 20 S; Pulse Ox 98% on 4 lpm NC; Pain 9/10; tm5 20:35 BP 191 / 98 (auto/); tm5 20:35 Pulse 62 MON; Pulse Ox 98% on 4 lpm NC; tm5 21:10 BP 162 / 85; Pulse 77; Resp 20; Pulse Ox 98% on 4 lpm NC; Pain 9/10; tm5 21:10 BP 174 / 96; Pulse 74; Resp 20; Pulse Ox 98% on 4 lpm NC; Pain 8/10; tm5 21:26 BP 126 / 75; Pulse 88; Resp 20; Temp 98.6(O); Pulse Ox 98% on 4 lpm NC; Pain 8/10; tm5 20:03 Body Mass Index 42.03 (104.24 kg, 157.48 cm) ankita MDM: 19:43 ECG WITH READING ER PHYS+CARDIAG ordered. EDMS 20:03 Famotidine 20 mg PO once ordered. mm11 20:03 Nitro-Bid Ointment 2 % 1 inches Transdermal once ordered. mm11 20:03 Tenecteplase (pt >90kg) 50 mg IV at bolus bolus; IV push over 5 seconds, flush line mm11 with 10mL of NS or D5W. ordered. 20:03 heparin (Thrombolytic Protocol, 12 units/kg/hr)) 41479 units IV at 12 units/kg/hr once; mm11 Max. dose 1000units/hr. No Lovenox past 18hrs/ draw labs. ordered. 20:03 heparin (Thrombolytic Protocol, 60 units/kg)) 60 units/kg IVP once; max 4000 units. mm11 Ensure no Lovenox in past 18hr, labs drawn ordered. 20:03 Equine Vet/Pulse Ox/q 15 min VS ordered. mm11 20:03 Draw and hold 1 red top tube ordered. mm11 20:03 IV Saline Lock x 2 ordered. mm11 20:03 Oxygen at 4L/Min NC or Home dosage ordered. mm11 20:03 Rhythm Strip to chart ordered. mm11 20:04 Basic Metabolic Profile Ordered. EDMS 20:04 CBC with Diff Ordered. EDMS 20:04 Cardiac Injury Profile Ordered. EDMS 20:04 PT/INR Ordered. EDMS 20:04 PTT Ordered. EDMS 20:04 Troponin Ordered. EDMS 20:04 Chest, 1 View Ordered. EDMS 20:04 CT Chest Angio R/O PE Ordered. EDMS 20:05 CT ABD & PELVIS: IV Contrast Only Ordered. EDMS 20:07 heparin (Thrombolytic Protocol, 12 units/kg/hr)) 70837 units IV at 1000 units/hr once; mm11 Max. dose 1000units/hr. No Lovenox past 18hrs/ draw labs. ordered. 20:07 heparin (Thrombolytic Protocol, 60 units/kg)) 4000 units IVP once; max 4000 units. mm11 Ensure no Lovenox in past 18hr, labs drawn ordered. 20:30 Labetalol 10 mg IVP at bolus once over 2 mins ordered. mm11 20:31 [facility] Payment Agreement was scanned into [employer] and attached to record. gjb 20:31 Financial registration complete. gjb 20:33 fentaNYL (PF) 50 mcg IVP once ordered. mm11 20:53 hydrALAZINE 20 mg IV at bolus once ordered. mm11 20:55 fentaNYL (PF) 75 mcg IVP once ordered. mm11 20:58 Basic Metabolic Profile Reviewed. mm11 20:58 CBC with Diff Reviewed. mm11 20:58 Cardiac Injury Profile Reviewed. mm11 20:58 PTT Reviewed. mm11 20:58 Troponin Reviewed. mm11 20:58 PT/INR Reviewed. mm11 21:22 Plavix - Clopidogrel 300 mg PO once ordered. mm11 21:23 ECG WITH READING ER PHYS+CARDIAG ordered. EDMS 03/08 10:10 T-Sheet-- Draft Copy was scanned into [employer] and attached to record. gb 10:11 ECG/EKG was scanned into [employer] and attached to record. gb Administered Medications: 03/07 20:06 Not Given (Duplicate Order): heparin (Thrombolytic Protocol, 12 units/kg/hr)) 98627 mm11 units IV at 12 units/kg/hr once; Max. dose 1000units/hr. No Lovenox past 18hrs/ draw labs. 20:06 Not Given (Duplicate Order): heparin (Thrombolytic Protocol, 60 units/kg)) 60 units/kg mm11 IVP once; max 4000 units. Ensure no Lovenox in past 18hr, labs drawn 20:15 Drug: Nitro-Bid 1 inches [Nitro-Bid 2 % transdermal ointment (1 inches)] Route: mgs Transdermal; Site: anterior chest wall; 20:36 Drug: fentaNYL (PF) 50 mcg [fentanyl (PF) 50 mcg/mL injection solution (1 mL)] Route: tm5 IVP; Site: left antecubital; 21:10 Follow up: BP 174 / 96; Pulse 74 bpm; Resp 20 bpm; Pulse Ox 98% 4 lpm Nasal Cannula; tm5 Pain 8/10 Adult; Response: No Adverse Reaction; Pain is decreased 20:38 Drug: Labetalol 10 mg [labetalol 5 mg/mL intravenous solution (2 mL)] Route: IVP; Rate: mgs bolus; Infused Over: 2 mins; Site: right antecubital; 21:26 Follow up: Response: Blood pressure is improved; No Adverse Reaction tm5 21:05 Drug: Tenecteplase (pt >90kg) 50 mg [tenecteplase 50 mg intravenous kit] Route: IV; mgs Rate: bolus; Site: right antecubital; 21:32 Follow up: Response: No Adverse Reaction tm5 21:09 Drug: hydrALAZINE 20 mg [hydralazine 20 mg/mL injection solution] Route: IV; Rate: tm5 bolus; Site: left antecubital; 21:26 Follow up: Response: Blood pressure is improved; No Adverse Reaction tm5 21:12 Drug: heparin (Thrombolytic Protocol, 60 units/kg)) 4000 units [heparin (porcine) 5,000 tm5 unit/mL injection solution (0.8 mL)] {Co-Signature: mgs (Howard Saxena RN).} Route: IVP; Site: right antecubital; 21:25 Follow up: Response: No Adverse Reaction; No significant change. tm5 21:13 Drug: Famotidine 20 mg [famotidine 20 mg tablet (1 tabs)] Route: PO; tm5 21:13 Drug: heparin (Thrombolytic Protocol, 12 units/kg/hr)) 58420 units [heparin (porcine) tm5 25,000 unit/250 mL (100 unit/mL) in dextrose 5 % IV] {Co-Signature: mgs (Howard Saxena RN).} Route: IV; Rate: 1000 units/hr; Site: right antecubital; 21:25 Follow up: IV Status: Infusion continued on transport tm5 21:25 Drug: fentaNYL (PF) 75 mcg [fentanyl (PF) 50 mcg/mL injection solution (1.5 mL)] Route: tm5 IVP; Site: left antecubital; 21:26 Follow up: Response: Pt left department before re-evaluation is appropriate tm5 21:25 Drug: Plavix - Clopidogrel 300 mg [clopidogrel 75 mg tablet (4 tabs)] Route: PO; mar 11: Follow up: Response: Pt left department before re-evaluation is appropriate tm5 Signatures: Dispatcher [employer] Tiffany Morley, RN RN Yasmine Gillespie, Reg Reg gb Howard Rockwell, DO mm11 Karol Mack RN RN sls1 Joanne Mireles [facility] Minerva Mancuso RN RN tm5 Howard Saxena RN mgs Howard Saxena RN mgs The chart was reviewed and I authenticate all verbal orders and agree with the evaluation and treatment provided.Corrections: (The following items were deleted from the chart) 21:32 20:03 Oxygen at 15 Liters/Minute NRB Mask ordered. mm11 tm5 Attachments: 20:31 [facility] Payment Agreement b 03/08 10:10 T-Sheet-- Draft Copy gb 10:11 ECG/EKG gb Chart Complete MTDD
--- NOTE | 2016-03-09 22:38 | EDDOCDS ---
Nurse's Notes [facility] Name: Madyson Tuttle Age: 60 yrs Sex: Female : 1955 Arrival Date: 03/07/2016 Time: 19:33 Bed 4 Private MD: Bill Tapia M.D. Diagnosis: ST elevation (STEMI) myocardial infarction of anterior wall Presentation: 03/07 19:41 Red Flag criteria, patient assessed and taken directly to a bed. 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 4 baby aspirin. Adult Sepsis Screening: The patient does not have new or worsening altered mentation. Patient has a respiratory rate of greater than or equal to 22 (1 point). Suicide/Homicide risk assessment- the patient denies having any suicidal and/or homicidal ideations and does not present with any other emotional, behavioral or mental health complaints. Status: Patient is not a vice president consulting services or dependent. Transition of care: patient was not received from another setting of care. 19:42 Acuity: JACLYN Level 2 sls1 19:42 Method Of Arrival: Walkin/Carried/Asstd sls1 21:29 Adult Sepsis Screening: Patient has a qSOFA score of 0- Negative Sepsis Screen. tm5 Triage Assessment: 19:51 General: Appears uncomfortable, Behavior is appropriate for age, cooperative. Pain: sls1 Location: chest Pain currently is 10 out of 10 on a pain scale. Pt Declines HIV testing. The patient is triaged at the bedside. See Assessment in Nurses Notes section of ED record. Neurological: No deficits noted. Cardiovascular: Chest pain is described as Pain is 10 out of 10 on a pain scale. radiates Does not radiate. episodes are continuous began 30 minutes prior to arrival. Respiratory: Airway is patent Respiratory effort is even, unlabored, Respiratory pattern is regular, symmetrical, Parent/caregiver reports the patient having shortness of breath at rest on exertion. Derm: No deficits noted. Historical: - Allergies: darvocet; Darvon; Morphine (Anxiety); - Home Meds: 1. naproxen 500 mg Oral tab 1 tab 2. Ventolin HFA 90 mcg/actuation Nebulizer HFAA 1 puff every 4 hours 3. Boniva 150 mg oral tab 1 tab monthly 4. rizatriptan 10 mg oral tab 1 tab 5. alendronate 70 mg/75 mL oral soln 75 mL once wkly 6. Lidoderm 5 % Topical ptmd 1 patch once daily 7. baclofen 10 mg Oral tab 1 tab 3 times per day 8. albuterol sulfate 90 mcg/actuation Inhl aepb 2 puffs every 4 hours 9. atenolol 100 mg Oral tab 50 mg once daily 10. Lipitor 20 mg Oral tab 1 tab once daily 11. Zyrtec 10 mg Oral cap 10 mg daily 12. clonazepam 0.5 mg Oral TbDL 1 tab 2 times per day 13. Voltaren 1 % Topical gel 4 times per day 14. gabapentin 400 mg Oral cap 1 cap 3 times per day 15. magnesium oxide 400 mg Oral tab twice a day 16. montelukast 10 mg oral tab 1 tab once daily 17. multivitamin Oral tab 1 tab daily 18. nortriptyline 25 mg Oral cap nightly 19. Protonix 40 mg Oral TbEC 1 tab 2 times per day 20. Restasis 0.05 % ophthalmic dpet 1 drop 2 times per day 21. Carafate 1 gram Oral tab 1 tab 4 times per day 22. Topamax 100 mg Oral tab 1 tab 2 times per day 23. Mesick 10-325 mg Oral tab every 8 hours 24. trazodone 50 mg Oral tab 3 tabs nightly 25. losartan 25 mg oral tab 1 tab once daily 26. Lastacaft 0.25 % ophthalmic drop once daily 27. Zoloft 50 mg Oral tab 1 tab once daily 28. Dymista 137-50 mcg/spray nasal spry - PMHx: Fibromyalgia; Hypertension; Migraine Headaches; hyperlipidemia; Anxiety; GERD; - PSHx: LASER DISC SURGERY LOWER BACK; Tonsillectomy; Cervical Discectomy; ; Sinus Surgery; Cataract Surgery- Bilateral; - Social history: Smoking status: Patient states was never smoker of tobacco. No barriers to communication noted, The patient speaks fluent Maori, Speaks appropriately for age. - Family history: Not pertinent. - : The pt / caregiver states he / she is not on anticoagulants. Home medication list is obtained from the patient. - Exposure Risk Screening:: None identified. Screenin:01 Screening information is obtained from the patient. Fall risk: At risk due to prior tm5 history of falls. Assistance ADL's: requires no assistance with activities of daily living. Abuse/DV Screen: The patient / caregiver reports he/she is: not in a situation that causes fear, pain or injury. Nutritional screening: No deficits noted. Advance Directives: Currently, there is a health care proxy, Y[place]. home support is adequate. Assessment: 19:59 General: Appears uncomfortable, Behavior is appropriate for age, cooperative. Pain: tm5 Location: xyphoid area and mid-sternal area Pain currently is 8 out of 10 on a pain scale. Quality of pain is described as heavy, pressure, sharp, Pain began 30 min ago. Neurological: Level of Consciousness is awake, alert, Oriented to person, place, time. Cardiovascular: Capillary refill < 3 seconds in right fingers Heart tones S1 S2 present Rhythm is sinus bradycardia. Respiratory: Airway is patent Respiratory effort is even, unlabored, Respiratory pattern is regular, symmetrical, Breath sounds are clear bilaterally. GI: No deficits noted. : No deficits noted. Derm: Skin is pink, warm & dry. normal. Musculoskeletal: No deficits noted. 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 tm5 20:30 Reassessment: Patient states symptoms have improved. per pt chest pain is about 9/10 at tm5 this time, MD aware of this . Cardiovascular: Rhythm is sinus rhythm No ectopy. 21:26 Reassessment: Patient appears in no apparent distress at this time. Patient states tm5 symptoms have improved. pt still complains of mid sternal chest pain 9/10. Cardiovascular: Rhythm is sinus rhythm No ectopy. Vital Signs: 19:35 Pulse 48; Resp 22; Temp 96.3; Pulse Ox 100% ; Weight 90.72 kg; Height 5 ft. 2 in. cmb (157.48 cm); Pain 8/10; 19:41 Pulse 42 LA; mb9 19:51 BP 212 / 115; sls1 19:51 BP 198 / 105 (auto/); tm5 19:51 Pulse 62 MON; Resp 20 S; Pulse Ox 99% on 2 lpm NC; Pain 8/10; tm5 20:03 Weight 104.24 kg; Height 5 ft. 2 in. (157.48 cm) (M); feb 20:04 BP 203 / 95 (auto/); tm5 20:05 Pulse 58 MON; Pulse Ox 97% ; tm5 20:13 BP 181 / 93 (auto/); tm5 20:13 Pulse 60 MON; Pulse Ox 97% ; tm5 20:15 BP 174 / 96; Pulse 69; Resp 20; Pulse Ox 98% on R/A; Pain 8/10; tm5 20:29 BP 185 / 109 (auto/); tm5 20:29 Pulse 64 MON; Resp 20 S; Pulse Ox 98% on 4 lpm NC; Pain 9/10; tm5 20:35 BP 191 / 98 (auto/); tm5 20:35 Pulse 62 MON; Pulse Ox 98% on 4 lpm NC; tm5 21:10 BP 162 / 85; Pulse 77; Resp 20; Pulse Ox 98% on 4 lpm NC; Pain 9/10; tm5 21:10 BP 174 / 96; Pulse 74; Resp 20; Pulse Ox 98% on 4 lpm NC; Pain 8/10; tm5 21:26 BP 126 / 75; Pulse 88; Resp 20; Temp 98.6(O); Pulse Ox 98% on 4 lpm NC; Pain 8/10; tm5 20:03 Body Mass Index 42.03 (104.24 kg, 157.48 cm) ankita Vitals: 19:35 Log In Time: March 07, 2016 at 19:33. b ED Course: 19:34 Patient visited by [place]. cmb 19:34 Patient moved to Waiting cmb 19:35 Bill Tapia is Private Physician. cmb 19:38 RN notified that patient meets Red Flag criteria. cmb 19:39 Patient moved to 4 cmb 19:44 Triage Initiated sls1 19:46 Brandie Rockwell DO is Attending Physician. mm11 19:46 Patient visited by Brandie Rockwell DO. mm11 19:48 EKG done. (by ED staff). Reviewed by Brandie Rockwell DO. ls3 19:57 Patient visited by Minerva Mancuso RN. tm5 19:57 Inserted saline lock: 18 gauge in right antecubital area The patient tolerated the tm5 procedure well. 19:58 ED physician to see patient. tm5 19:58 Inserted saline lock: 20 gauge in left antecubital area The patient tolerated the tm5 procedure well. 19:58 Missed attempts: 20 gauge X 2 in right hand, in left hand. tm5 20:01 The patient / caregiver is instructed regarding the plan of care and ED course. Cardiac tm5 monitor on. Pulse ox on. NIBP on. Family accompanied patient. 20:01 Warm blanket given. Pillow given. tm5 20:01 O2 via nasal cannula \T\ 2L/min. tm5 20:03 Patient visited by Brandie Rockwell DO. mm11 20:24 Daphney Mccurdy,SHABANA is Primary Nurse. [facility] 20:29 Patient visited by Minerva Mancuso,SHABANA. tm5 20:29 Patient moved back from CT. tm5 20:31 Patient visited by Minerva Mancuso RN. tm5 20:31 [facility] Payment Agreement was scanned into Cognotion and attached to record. gjb 20:31 Notified attending ED physician of MD aware of pt's blood pressure remaining elevated & tm5 her chest pain is still severe 10/29. 20:36 Patient visited by Minerva Mancuso RN. tm5 21:13 CT Chest Angio R/O PE Returned. EDMS 21:25 Patient visited by Minerva Mancuso RN. tm5 21:26 EKG done. (by ED staff). Reviewed by Brandie Rockwell DO. armond 21:27 Patient visited by Mariann Ruiz PCA. armond 21:28 No procedures done that require assistance. tm5 18 06:58 Chest, 1 View Returned. EDMS 08:22 EKG-ADULT Returned. EDMS 08:22 EKG-ADULT Returned. EDMS 10:10 T-Sheet-- Draft Copy was scanned into Cognotion and attached to record. gb 10:11 ECG/EKG was scanned into Cognotion and attached to record. gb Administered Medications: 03/07 20:06 Not Given (Duplicate Order): heparin (Thrombolytic Protocol, 12 units/kg/hr)) 58540 mm11 units IV at 12 units/kg/hr once; Max. dose 1000units/hr. No Lovenox past 18hrs/ draw labs. 20:06 Not Given (Duplicate Order): heparin (Thrombolytic Protocol, 60 units/kg)) 60 units/kg mm11 IVP once; max 4000 units. Ensure no Lovenox in past 18hr, labs drawn 20:15 Drug: Nitro-Bid 1 inches [Nitro-Bid 2 % transdermal ointment (1 inches)] Route: mgs Transdermal; Site: anterior chest wall; 20:36 Drug: fentaNYL (PF) 50 mcg [fentanyl (PF) 50 mcg/mL injection solution (1 mL)] Route: tm5 IVP; Site: left antecubital; 21:10 Follow up: BP 174 / 96; Pulse 74 bpm; Resp 20 bpm; Pulse Ox 98% 4 lpm Nasal Cannula; tm5 Pain 8/10 Adult; Response: No Adverse Reaction; Pain is decreased 20:38 Drug: Labetalol 10 mg [labetalol 5 mg/mL intravenous solution (2 mL)] Route: IVP; Rate: mgs bolus; Infused Over: 2 mins; Site: right antecubital; 21:26 Follow up: Response: Blood pressure is improved; No Adverse Reaction tm5 21:05 Drug: Tenecteplase (pt >90kg) 50 mg [tenecteplase 50 mg intravenous kit] Route: IV; mgs Rate: bolus; Site: right antecubital; 21:32 Follow up: Response: No Adverse Reaction tm5 21:09 Drug: hydrALAZINE 20 mg [hydralazine 20 mg/mL injection solution] Route: IV; Rate: tm5 bolus; Site: left antecubital; 21:26 Follow up: Response: Blood pressure is improved; No Adverse Reaction tm5 21:12 Drug: heparin (Thrombolytic Protocol, 60 units/kg)) 4000 units [heparin (porcine) 5,000 tm5 unit/mL injection solution (0.8 mL)] {Co-Signature: mgs (Brandie Saxena RN).} Route: IVP; Site: right antecubital; 21:25 Follow up: Response: No Adverse Reaction; No significant change. tm5 21:13 Drug: Famotidine 20 mg [famotidine 20 mg tablet (1 tabs)] Route: PO; tm5 21:13 Drug: heparin (Thrombolytic Protocol, 12 units/kg/hr)) 88907 units [heparin (porcine) tm5 25,000 unit/250 mL (100 unit/mL) in dextrose 5 % IV] {Co-Signature: mgs (Brandie Saxena RN).} Route: IV; Rate: 1000 units/hr; Site: right antecubital; : Follow up: IV Status: Infusion continued on transport tm5 :25 Drug: fentaNYL (PF) 75 mcg [fentanyl (PF) 50 mcg/mL injection solution (1.5 mL)] Route: tm5 IVP; Site: left antecubital; : Follow up: Response: Pt left department before re-evaluation is appropriate tm5 : Drug: Plavix - Clopidogrel 300 mg [clopidogrel 75 mg tablet (4 tabs)] Route: PO; mar 11 Follow up: Response: Pt left department before re-evaluation is appropriate tm5 Order Results: Lab Order: Basic Metabolic Profile; SPEC'M 03/07/16 19:47 Test: GLUCOSE, FASTING; Value: 138; Range: 80-110; Abnormal: Above high normal; Units: MG/DL; Status: F Test: BLOOD UREA NITROGEN; Value: 12; Range: 7-18; Units: MG/DL; Status: F Test: CREATININE FOR GFR; Value: 0.67; Range: 0.55-1.02; Units: MG/DL; Status: F Test: GLOMERULAR FILTRATION RATE; Value: > 60.0; Range: >45; Status: F Test: SODIUM LEVEL; Value: 140; Range: 136-145; Units: MEQ/L; Status: F Test: POTASSIUM SERUM; Value: 3.3; Range: 3.5-5.1; Abnormal: Below low normal; Units: MEQ/L; Status: F Test: CHLORIDE LEVEL; Value: 104; Range: 98-107; Units: MEQ/L; Status: F Test: CARBON DIOXIDE LEVEL; Value: 24; Range: 21-32; Units: MEQ/L; Status: F Test: ANION GAP; Value: 12; Range: 8-16; Units: MEQ/L; Status: F Test: CALCIUM LEVEL; Value: 8.8; Range: 8.8-10.2; Units: MG/DL; Status: F Test Note: ; Units are mL/min/1.73 m2 Chronic Kidney Disease Staging per NKF: Stage I & II GFR >=60 Normal to Mildly Decreased Stage III GFR 30-59 Moderately Decreased Stage IV GFR 15-29 Severely Decreased Stage V GFR <15 Very Little GFR Left ESRD GFR <15 on HYDROGRAPHIC SURVEYOR Lab Order: CBC with Diff; SPEC'M 03/07/16 19:47 Test: WHITE BLOOD COUNT; Value: 11.6; Range: 4.0-10.0; Abnormal: Above high normal; Units: K/mm3; Status: F Test: RED BLOOD COUNT; Value: 4.24; Range: 4.00-5.40; Units: M/mm3; Status: F Test: HEMOGLOBIN; Value: 13.5; Range: 12.0-16.0; Units: g/dl; Status: F Test: HEMATOCRIT; Value: 39.0; Range: 36.0-47.0; Units: %; Status: F Test: MEAN CORPUSCULAR VOLUME; Value: 92.0; Range: 80.0-96.0; Units: fl; Status: F Test: MEAN CORPUSCULAR HEMOGLOBIN; Value: 32.0; Range: 27.0-33.0; Units: pg; Status: F Test: MEAN CORPUSCULAR HGB CONC; Value: 34.8; Range: 32.0-36.5; Units: g/dl; Status: F Test: RED CELL DISTRIBUTION WIDTH; Value: 12.9; Range: 11.5-14.5; Units: %; Status: F Test: PLATELET COUNT, AUTOMATED; Value: 302; Range: 150-450; Units: k/mm3; Status: F Test: NEUTROPHILS %; Value: 71.3; Range: 36.0-66.0; Abnormal: Above high normal; Units: %; Status: F Test: LYMPH %; Value: 20.4; Range: 24.0-44.0; Abnormal: Below low normal; Units: %; Status: F Test: MONO %; Value: 4.7; Range: 0.0-5.0; Units: %; Status: F Test: EOS %; Value: 1.0; Range: 0.0-3.0; Units: %; Status: F Test: BASO %; Value: 0.2; Range: 0.0-1.0; Units: %; Status: F Test: LARGE UNSTAINED CELL %; Value: 2.4; Range: 0.0-4.0; Units: %; Status: F Test: NEUTROPHILS #; Value: 8.3; Range: 1.8-7.7; Abnormal: Above high normal; Units: K/mm3; Status: F Test: LYMPH #; Value: 2.4; Range: 1.5-4.5; Units: K/mm3; Status: F Test: MONO #; Value: 0.6; Range: 0.0-0.8; Units: K/mm3; Status: F Test: EOS #; Value: 0.1; Range: 0.0-0.50; Units: K/mm3; Status: F Test: BASO #; Value: 0.0; Range: 0.0-0.2; Units: K/mm3; Status: F Test: LARGE UNSTAINED CELL #; Value: 0.3; Range: 0.0-0.4; Units: K/mm3; Status: F Lab Order: Cardiac Injury Profile; [facility]' 03/07/16 19:47 Test: CPK CREATINE PHOSPHOKINASE; Value: 106; Range: 26-192; Units: U/L; Status: F Test: CK-MB VALUE MASS; Value: 5.6; Range: 0.0-3.6; Abnormal: Above high normal; Units: NG/ML; Status: F Test: MB/CK RELATIVE INDEX; Value: 5.28; Range: < OR =4; Abnormal: Above high normal; Status: F Test Note: ; DIAGNOSIS CRITERIA MMB ng/ml Relative Index (RI) NON-AMI < or = 5 N/A PERKINS ZONE > 5 < or = 4 AMI > 5 > 4 Lab Order: PT/INR; [facility]' 03/07/16 19:47 Test: PROTHROMBIN TIME; Value: 12.4; Range: 12.3-14.5; Units: SECONDS; Status: F Test: INR; Value: 0.91; Status: F Test Note: ; THERAPUTIC HUMAN INR VALUES INDICATIONS NORMAL RANGES PROPHYLAXIS/TREATMENT OF: VENOUS THROMBOSIS 2.0-3.0 PULMONARY EMBOLISM 2.0-3.0 PREVENTION OF SYSTEMIC EMBOLISM FROM: TISSUE HEART VALVES 2.0-3.0 ACUTE MYOCARDIAL INFARCTION 2.0-3.0 VALVULAR HEART DISEASE 2.0-3.0 ATRIAL FIBRILLATION 2.0-3.0 MECHANICAL VALVES(HIGH RISK) 2.5-3.5 RECURRENT MYOCARDIAL INFARCTION 2.5-3.5 Lab Order: PTT; SPEC'M 03/07/16 19:47 Test: PARTIAL THROMBOPLASTIN TIME; Value: 24.9; Range: 26.6-37.1; Abnormal: Below low normal; Units: SECONDS; Status: F Lab Order: Troponin; SPEC'M 03/07/16 19:47 Test: TROPONIN I; Value: 1.20; Range: < 0.10; Abnormal: Above high normal; Units: NG/ML; Status: F Test Note: ; Troponin I Reference Interval for Siemens [place] LOCI: 99th Percentile= 0.00-0.045 ng/ml Risk Stratification: <= 0.10 ng/ml Decreased Risk for Adverse Clinical Events. 0.10-1.50 ng/ml Increased Risk for Adverse Clinical Events. Evaluation of additional criterion and/or repeat testing in 2-6 hours is suggested to rule out myocardial damage. >= 1.50 ng/ml Indicative of Myocardial Injury. 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; : 1955 Requested By: BRANDIE Kingston; Order Number: [id number] Reading MD: Myra Irving; Measurements; Intervals [place]; Rate: 65 P: -12; MA: 150 QRS: -10; QRSD: 88 T: 12; QT: 405; QTc: 424; Interpretive Statements; SINUS RHYTHM WITH FREQUENT VENTRICULAR PREMATURE COMPLEXES IN A BIGEMINAL; PATTERN; LOW QRS VOLTAGE IN PRECORDIAL LEADS; INFERIOR MYOCARDIAL INFARCTION, OF INDETERMINATE AGE WITH POSTERIOR EXTENSION; MARKED ST ELEVATION, CONSIDER ANTERIOR ACUTE HI; CLINICAL CORRELATION; Electronically Signed On 03-08-2016 8:04:57 EST by Myra Irving; Radiology Order: Chest, 1 View Test: Chest, 1 View REASON FOR EXAMINATION: prethrombolytic; Clinical: Chest pain and suspected dissection .; ; Comparison: 09/03/2015 .; ; Findings:; The mediastinum and cardiac silhouette are stable and within normal limits for; portable technique. The lung avalos demonstrate minimal chronic changes and; subtle linear plate-like atelectasis at the left lower lung zone. No acute; consolidation, effusion, or pneumothorax. Skeletal structures are intact.; ; Impression:; Trace linear atelectasis in the left lung zone.; ; ; Signed by; Ari Francis MD 03/08/2016 06:39 A; Radiology Order: CT Chest Angio R/O PE Test: CT Chest Angio R/O PE REASON FOR EXAMINATION: r/o dissection; ; Reason for examination : Rule out dissection; Comparison: None.; Technique: CAT scan of the thoracic and abdominal aorta was obtained with initial precontrast localiz; ation. Post contrast thin section dynamic CAT scan was obtained and three-dimensional reconstructions; were performed on an independent work station.; Findings:; AORTA: No aneurysmal dilatation or dissection. Scattered atherosclerotic calcifications noted.; LUNG PARENCHYMA : No acute infiltrate, effusion, mass, suspicious nodule, or pneumothorax. Mild bilat; eral lower linear atelectasis.; HILUM AND MEDIASTINUM : No mass, suspicious cystic lesion, or enlarged adenopathy..; PLEURA : No mass or suspicious thickening.; LOWER NECK/THYROID : Unremarkable; AXILLA: No mass or enlarged adenopathy.; Solid organs of the abdomen and pelvis are suboptimally evaluated the phase of injection.; LIVER : Unremarkable; GALLBLADDER : Unremarkable; SPLEEN : Unremarkable; PANCREAS : Unremarkable; ADRENAL GLANDS : Unremarkable; KIDNEYS : Unremarkable; RETROPERITONEUM : No ascites, extraluminal air, or enlarged adenopathy.; BOWEL : Normal caliber; PELVIS : Uterus and adnexa are unremarkable. Left gluteal spinal stimulator device with wiring termin; ating in the dorsal spinal canal at approximately T6-T7.; OSSEOUS STRUCTURES : No acute fracture or suspicious lesion. 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 mm11 21:28 Discharge Assessment: Patient awake, alert and oriented x 3. No cognitive and/or tm5 functional deficits noted. Patient verbalized understanding of disposition instructions. patient administered narcotics - yes. Patient was admitted to the hospital or transferred to another facility. The following High Risk Discharge criteria are identified: None. Transferred to [facility]. by EMS ground report to accompanying personnel Julee Reyes & radiology rn Radha Larsen. Condition: good Condition: stable Condition: improved. CT Study completed. Property :Personal belongings accompany Pt. 21:34 Condition: unchanged. Admission hand-off: Report called to Renee Patterson RN on D unit [facility]. 21:37 Patient left the ED. feb Signatures: Dispatcher [employer] EDMS Tiffany Smart RN RN jan Barnhardt, Gloria, Reg Reg Brandie Lozano, DO DO mm11 Mariann Ruiz, PERSONNEL CONSULTANT PERSONNEL CONSULTANT Karlo Tang, RN RN sls1 Daphney Mccurdy,RN RN Fern Abad cmb Brandie Saxena,RN RN mgs Thomas Sprague,RN RN mb9 Naomi Dover, PERSONNEL CONSULTANT PERSONNEL CONSULTANT ls3 Joanne Mirelesb Minerva Mancuso,SHABANA RN tm5 Brandie Saxena RN mgs Corrections: (The following items were deleted from the chart) 19:39 19:35 Pulse 48bpm; Resp 22bpm; Pulse Ox 100%; Temp 96.3F; 90.72 kg; Height 5 ft. 2 in.; cmb BMI: 36.5; Pain 8/10; cmb Chart Complete MTDD
== END 2016-03-07 21:37 | disposition short-term general hospital (02) ==
LOC: M ED 19:33
DX: I21.09 ST elevation (STEMI) myocardial infarction involving other coronary artery of anterior wall (principal); M79.7 Fibromyalgia; I10 Essential (primary) hypertension; G43.909 Migraine, unspecified, not intractable, without status migrainosus; E78.5 Hyperlipidemia, unspecified; F41.9 Anxiety disorder, unspecified; K21.9 Gastro-esophageal reflux disease without esophagitis; Z79.899 Other long term (current) drug therapy; Z88.5 Allergy status to narcotic agent
CPT/HCPCS: 36415; 71010; 71275; 74177; 80048; 82550; 82553; 85025; 85610; 85730; 93005; 93041; 96374; 96375; 96376; 99285; J3010; J3101; Q9967

== ENCOUNTER → 2016-03-17 | Outpatient (CLI) | payer BC ==
[2016-03-17 18:34] LABS: MEAN CORPUSCULAR HGB CONC 33.3 g/dl (32.0-36.5); MEAN CORPUSCULAR VOLUME 93.1 fl (80.0-96.0); RED CELL DISTRIBUTION WIDTH 13.4 % (11.5-14.5); WHITE BLOOD COUNT 10.5 K/mm3 (4.0-10.0)
[2016-03-17 18:43] LABS: ANION GAP 11 MEQ/L (8-16); BLOOD UREA NITROGEN 13 MG/DL (7-18); CALCIUM LEVEL 8.7 MG/DL (8.8-10.2); CARBON DIOXIDE LEVEL 25 MEQ/L (21-32); CHLORIDE LEVEL 100 MEQ/L (98-107); DIGOXIN LEVEL 1.1 NG/ML (0.5-2.0); GLOMERULAR FILTRATION RATE > 60.0 (>45); GLUCOSE, FASTING 89 MG/DL (80-110); POTASSIUM SERUM 3.6 MEQ/L (3.5-5.1); SODIUM LEVEL 136 MEQ/L (136-145)
== END ==
LOC: M LAB 16:51
PROVIDERS: ATTEND Internal Medicine Cardiovascular Disease
DX: I25.10 Atherosclerotic heart disease of native coronary artery without angina pectoris (principal)

== ENCOUNTER → 2016-04-21 | Outpatient (CLI) | payer BC ==
[2016-04-21 15:48] LABS: MEAN CORPUSCULAR HEMOGLOBIN 32.4 pg (27.0-33.0); MEAN CORPUSCULAR VOLUME 95.4 fl (80.0-96.0); RED CELL DISTRIBUTION WIDTH 14.2 % (11.5-14.5); WHITE BLOOD COUNT 7.1 K/mm3 (4.0-10.0)
[2016-04-21 16:07] LABS: ANION GAP 7 MEQ/L (8-16); BLOOD UREA NITROGEN 11 MG/DL (7-18); CALCIUM LEVEL 8.4 MG/DL (8.8-10.2); CARBON DIOXIDE LEVEL 29 MEQ/L (21-32); CHLORIDE LEVEL 105 MEQ/L (98-107); CREATININE FOR GFR 0.73 MG/DL (0.55-1.02); GLOMERULAR FILTRATION RATE > 60.0 (>45); GLUCOSE, FASTING 106 MG/DL (80-110); POTASSIUM SERUM 3.5 MEQ/L (3.5-5.1); SODIUM LEVEL 141 MEQ/L (136-145)
== END ==
LOC: M LAB 15:16
PROVIDERS: ATTEND Internal Medicine Cardiovascular Disease
DX: I25.10 Atherosclerotic heart disease of native coronary artery without angina pectoris (principal)

== ENCOUNTER 2016-08-25 15:24 | Emergency (ER) | payer MEDICARE, BC ==
[~2016-08-25] VITALS: Ht 157.5 cm; Wt 81.9 kg
[~2016-08-25 15:24] MED LIST changes: +KEFL500C17 PO; -KEFL500C7 PO
[2016-08-25] MEDS ORDERED: NITR0.4S14 (15:39)
[2016-08-25] MEDS ORDERED: LISI2.5T3 (15:39)
[2016-08-25] MEDS ORDERED: CLOP75TA2 (15:39)
[2016-08-25] MEDS ORDERED: ASPIRIN 81 MG CHEW TABLET PO ONE (16:00)
--- NOTE | 2016-08-25 16:29 | REP ---
Chest one-view HISTORY: Chest pain Comparison: 03/07/2016 The lungs are clear. The heart is normal in size. The pulmonary vasculature is normal in appearance. Impression: No acute disease. Signed by Anthony Gonzalez MD 08/25/2016 04:21 P
[2016-08-25 16:49] LABS: BASO % 0.5 % (0.0-1.0); EOS # 0.1 K/mm3 (0.0-0.50); EOS % 1.4 % (0.0-3.0); LARGE UNSTAINED CELL # 0.1 K/mm3 (0.0-0.4); LARGE UNSTAINED CELL % 1.2 % (0.0-4.0); MEAN CORPUSCULAR HEMOGLOBIN 31.6 pg (27.0-33.0); MEAN CORPUSCULAR HGB CONC 34.3 g/dl (32.0-36.5); MEAN CORPUSCULAR VOLUME 92.2 fl (80.0-96.0); MONO # 0.4 K/mm3 (0.0-0.8); NEUTROPHILS # 6.5 K/mm3 (1.8-7.7); NEUTROPHILS % 71.9 % (36.0-66.0); PLATELET COUNT, AUTOMATED 243 k/mm3 (150-450); RED CELL DISTRIBUTION WIDTH 13.5 % (11.5-14.5)
[2016-08-25 16:50] LABS: INR 0.89
[2016-08-25 17:11] LABS: ANION GAP 8 MEQ/L (8-16); BLOOD UREA NITROGEN 14 MG/DL (7-18); CALCIUM LEVEL 8.5 MG/DL (8.8-10.2); CARBON DIOXIDE LEVEL 23 MEQ/L (21-32); CHLORIDE LEVEL 107 MEQ/L (98-107); CREATININE FOR GFR 0.82 MG/DL (0.55-1.02); GLOMERULAR FILTRATION RATE > 60.0 (>45); GLUCOSE, FASTING 163 MG/DL (80-110); POTASSIUM SERUM 3.5 MEQ/L (3.5-5.1); SODIUM LEVEL 138 MEQ/L (136-145)
--- NOTE | 2016-08-25 21:02 | ECGEPIP ---
Stationary ECG Study [facility] - ED Test Date: 2016-08-25 Pat Name: MADYSON TRAORE Department: Room: - Gender: F [employer]: tk : 1955 Requested By: Moe Sorto Order Number: [id number] Reading MD: Myra Irving Measurements Intervals [place] Rate: 88 P: 123 ME: 365 QRS: 3 QRSD: 97 T: 17 QT: 356 QTc: 431 Interpretive Statements ARTIFACT SINUS RHYTHM ?PRIOR INFERIOR INFARCT NSTTW ABNORMALITY IN DISTRIBUTION OF 03/07/16 STEMI Electronically Signed On 08-25-2016 21:01:40 EDT by Myra Irving
[2016-08-26 01:05] VITALS: BP 148/81
--- NOTE | 2016-08-26 21:23 | ECGEPIP ---
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
== END 2016-08-26 01:16 | disposition home or self-care (01) ==
LOC: M ED 15:24
DX: I20.8 Other forms of angina pectoris (principal); I25.10 Atherosclerotic heart disease of native coronary artery without angina pectoris; I10 Essential (primary) hypertension; I25.2 Old myocardial infarction

== ENCOUNTER → 2017-03-22 | Outpatient (REF) | payer MEDICARE, BC | LOC: M LAB REF 16:44 | DX: N39.0 Urinary tract infection, site not specified (principal) | CPT/HCPCS: 87186 ==

== ENCOUNTER 2017-04-02 18:42 | Emergency (ER) | payer MEDICARE, BC ==
[2017-04-02] MEDS: ADACEL/BOOSTRIX VACCINE (DIPHTH/PERTUSS/ACELL/TETANUS)0.5ML SYR (90715) IM (20:00)
[2017-04-02] MEDS ORDERED: LIDOCAINE W/EPINEPHRINE 1% 20ML VIAL As Ordered (20:08)
[2017-04-02] MEDS: LIDOCAINE W/EPINEPHRINE 1% 20ML VIAL SC (20:15)
[2017-04-02] MEDS: NS 1,000 ML IV (22:14)
[2017-04-02 22:17] LABS: BASO # 0.1 10^3/uL (0.0-0.2); BASO % 0.4 % (0.0-1.0); EOS % 0.2 % (0.0-3.0); HEMOGLOBIN 11.4 g/dl (12.0-16.0); IMMATURE GRANULOCYTE % 0.4 % (0-3.0); LYMPH # 2.1 10^3/uL (1.5-4.5); LYMPH % 14.8 % (24.0-44.0); MEAN CORPUSCULAR HEMOGLOBIN 31.3 pg (27.0-33.0); MEAN CORPUSCULAR HGB CONC 33.5 g/dl (32.0-36.5); MEAN CORPUSCULAR VOLUME 93.4 fl (80.0-96.0); MONO # 0.7 10^3/uL (0.0-0.8); MONO % 4.9 % (0.0-5.0); NEUTROPHILS # 11.1 10^3/uL (1.8-7.7); NEUTROPHILS % 79.3 % (36.0-66.0); PLATELET COUNT, AUTOMATED 266 10^3/uL (150-450); RED BLOOD COUNT 3.64 10^6/uL (4.00-5.40); RED CELL DISTRIBUTION WIDTH 13.1 % (11.5-14.5); WHITE BLOOD COUNT 14.1 10^3/uL (4.0-10.0)
[2017-04-02] MEDS: ACETAMINOPHEN TAB 650MG DOSE (2X325MG) PO (22:33)
[2017-04-02 22:42] LABS: ANION GAP 10 MEQ/L (8-16); BLOOD UREA NITROGEN 11 MG/DL (7-18); CALCIUM LEVEL 8.5 MG/DL (8.8-10.2); CARBON DIOXIDE LEVEL 26 MEQ/L (21-32); CHLORIDE LEVEL 108 MEQ/L (98-107); CPK CREATINE PHOSPHOKINASE 72 U/L (26-192); GLOMERULAR FILTRATION RATE > 60.0 (>45); GLUCOSE, FASTING 116 MG/DL (70-100); MAGNESIUM LEVEL 2.1 MG/DL (1.8-2.4); MB/CK RELATIVE INDEX 1.38 (< OR =4); PHOSPHORUS LEVEL 3.4 MG/DL (2.5-4.9); POTASSIUM SERUM 3.7 MEQ/L (3.5-5.1); SODIUM LEVEL 144 MEQ/L (136-145); TROPONIN I < 0.02 NG/ML (< 0.10)
== END 2017-04-03 00:43 | disposition home or self-care (01) ==
LOC: M ED 04-03 00:43
DX: S01.01XA Laceration without foreign body of scalp, initial encounter (principal); S50.02XA Contusion of left elbow, initial encounter; W18.30XA Fall on same level, unspecified, initial encounter; Y92.018 Other place in single-family (private) house as the place of occurrence of the external cause; M79.642 Pain in left hand; I10 Essential (primary) hypertension; I25.10 Atherosclerotic heart disease of native coronary artery without angina pectoris; I25.2 Old myocardial infarction; M79.7 Fibromyalgia; Z79.899 Other long term (current) drug therapy; Z88.0 Allergy status to penicillin; Z88.5 Allergy status to narcotic agent; Z88.8 Allergy status to other drugs, medicaments and biological substances
CPT/HCPCS: 90715

== ENCOUNTER 2017-08-08 17:44 | Emergency (ER) | payer MEDICARE, BC ==
[2017-08-08 18:14] LABS: BASO # 0.1 10^3/uL (0.0-0.2); BASO % 0.6 % (0.0-1.0); EOS # 0.1 10^3/uL (0.0-0.50); EOS % 0.8 % (0.0-3.0); HEMATOCRIT 36.3 % (36.0-47.0); HEMOGLOBIN 12.2 g/dl (12.0-15.5); IMMATURE GRANULOCYTE % 0.1 % (0-3.0); LYMPH # 2.2 10^3/uL (1.5-4.5); LYMPH % 27.9 % (24.0-44.0); MEAN CORPUSCULAR HEMOGLOBIN 30.4 pg (27.0-33.0); MEAN CORPUSCULAR HGB CONC 33.6 g/dl (32.0-36.5); MEAN CORPUSCULAR VOLUME 90.5 fl (80.0-96.0); MONO # 0.6 10^3/uL (0.0-0.8); NEUTROPHILS % 62.6 % (36.0-66.0); PLATELET COUNT, AUTOMATED 270 10^3/uL (150-450); RED BLOOD COUNT 4.01 10^6/uL (4.00-5.40); RED CELL DISTRIBUTION WIDTH 13.7 % (11.5-14.5)
[2017-08-08] MEDS: GI COCKTAIL 50ML BTL(HYOSCYAMINE/MAALOX/LIDOCAINE VISCOUS)(1:3:1) PO (18:25)
[2017-08-08 18:31] LABS: INR 0.87; PROTHROMBIN TIME 11.9 SECONDS (12.4-14.5)
[2017-08-08 18:39] LABS: ALBUMIN 3.5 GM/DL (3.2-5.2); ALBUMIN/GLOBULIN RATIO 1.06 (1.00-1.93); ALKALINE PHOSPHATASE 106 U/L (45-117); ALT/SGPT 24 U/L (12-78); ANION GAP 11 MEQ/L (8-16); AST/SGOT 18 U/L (7-37); BILIRUBIN,DIRECT < 0.1 MG/DL (0.0-0.2); BILIRUBIN,TOTAL 0.2 MG/DL (0.2-1.0); BLOOD UREA NITROGEN 10 MG/DL (7-18); CALCIUM LEVEL 8.1 MG/DL (8.8-10.2); CARBON DIOXIDE LEVEL 24 MEQ/L (21-32); CHLORIDE LEVEL 105 MEQ/L (98-107); CPK CREATINE PHOSPHOKINASE 91 U/L (26-192); CREATININE FOR GFR 0.86 MG/DL (0.55-1.30); GLOMERULAR FILTRATION RATE > 60.0 (>45); GLUCOSE, FASTING 111 MG/DL (70-100); POTASSIUM SERUM 3.5 MEQ/L (3.5-5.1); SODIUM LEVEL 140 MEQ/L (136-145); TOTAL PROTEIN 6.8 GM/DL (6.4-8.2); TROPONIN I < 0.02 NG/ML (< 0.10)
[2017-08-08] MEDS: NITROGLYCERIN 0.4 MG SUBL TABLET SL (18:39)
[2017-08-08 18:45] LABS: CK-MB VALUE MASS < 1.0 NG/ML (<3.6); MB/CK RELATIVE INDEX 1.09 (< OR =4); NT-PRO BNP < 5 PG/ML (<125)
[2017-08-08 19:24] LABS: LIPASE 96 U/L (73-393)
[2017-08-09 00:47] LABS: CPK CREATINE PHOSPHOKINASE 84 U/L (26-192); TROPONIN I < 0.02 NG/ML (< 0.10)
[2017-08-09 00:48] LABS: CK-MB VALUE MASS 1.2 NG/ML (<3.6); MB/CK RELATIVE INDEX 1.42 (< OR =4)
== END 2017-08-09 01:26 | disposition home or self-care (01) ==
LOC: M ED 08-09 01:26
DX: R07.89 Other chest pain (principal); R06.02 Shortness of breath; I10 Essential (primary) hypertension; I25.2 Old myocardial infarction; E78.5 Hyperlipidemia, unspecified; J45.909 Unspecified asthma, uncomplicated; Z95.5 Presence of coronary angioplasty implant and graft; Z88.0 Allergy status to penicillin; Z88.5 Allergy status to narcotic agent; Z88.8 Allergy status to other drugs, medicaments and biological substances; Z79.899 Other long term (current) drug therapy; Z79.02 Long term (current) use of antithrombotics/antiplatelets
CPT/HCPCS: 71045

== ENCOUNTER → 2017-11-15 | Outpatient (REF) | payer MEDICARE, BC | LOC: M LAB REF 13:03 | DX: R30.0 Dysuria (principal); N76.0 Acute vaginitis | CPT/HCPCS: 87186 ==

== ENCOUNTER → 2018-04-12 | Outpatient (REF) | payer MEDICARE, BC ==
[~2018-04-12] MED LIST changes: +CLOP75TA2; +LISI2.5T5; +LOSA25TA14 PO; -LOSA25TA8 PO; +NITR0.4S14
[2018-04-12 17:51] LABS: INR 0.92; PROTHROMBIN TIME 12.5 SECONDS (12.1-14.4)
== END ==
LOC: M LAB REF 16:54 → M LABDRAW1 16:54
PROVIDERS: ATTEND Physician Assistant
DX: M17.0 Bilateral primary osteoarthritis of knee (principal)

== ENCOUNTER → 2018-05-27 | Outpatient (REF) | payer MEDICARE, BC ==
[~2018-05-27] MED LIST changes: -/PANT40TA OR; -/SUCR1TA OR; +ADVA115A INH; +ALBU17IN2 INH; +ALL10TAB28 PO; +ATOR40TA75 PO; +BACL1TAB8 PO; +CALCTAB38 PO; +CARV25TA PO; +CLON0.5T17 PO; -CLOP75TA2; +CLOP75TA2 PO; +FLON1SPR; +GABA-845 PO; +LISI-1046 PO; -LISI2.5T5; +MELA10CA2 PO; +MONT10TA2 PO; +NORT25CA2 PO; +OMEG1CAP16 PO; +OXYC30TA84 PO; +PANT40TA3 PO; +PERCOCET PO; +PROT1TAB2 OR; +SUCR1TA PO; +SUCR1TAB56 OR; +TOPI100T9 PO; +TRAZ1TAB14 PO
[2018-05-27 13:11] LABS: APPEARANCE, URINE CLEAR (CLEAR); BACTERIA, URINE AUTO NEGATIVE (NEGATIVE); BILIRUBIN, URINE AUTO NEGATIVE (NEGATIVE); BLOOD, URINE BLOOD NEGATIVE (NEGATIVE); COLOR, URINE STRAW (YELLOW); GLUCOSE, URINE (UA) AUTO NEGATIVE (NEGATIVE); KETONE, URINE AUTO NEGATIVE (NEGATIVE); LEUKOCYTE ESTERASE, URINE AUTO 2+ (NEGATIVE); NITRITE, URINE AUTO NEGATIVE (NEGATIVE); PROTEIN, URINE AUTO NEGATIVE (NEGATIVE); RBC, URINE AUTO 0 /HPF (0-3); SPECIFIC GRAVITY URINE AUTO 1.002 (1.002-1.035); SQUAMOUS EPITHELIAL CELL UR AU 0 /HPF (0-6); UROBILINOGEN, URINE AUTO 0.2 mg/dL (0.0-2.0); WBC, URINE AUTO 16 /HPF (0-3)
== END ==
LOC: M LAB REF 12:16
PROVIDERS: ATTEND Family Medicine
DX: Z01.818 Encounter for other preprocedural examination (principal)

== ENCOUNTER 2018-06-05 06:05 | Day surgery (SDC) | payer MEDICARE, BC ==
[~2018-06-05] VITALS: Ht 157.5 cm; Wt 84.1 kg
[2018-06-05] VITALS (7 sets, daily range): BP systolic 136–162; BP diastolic 57–90
[~2018-06-05 06:05] MED LIST changes: +LIDOCAINE 1% MDV 20ML VIAL SQ PRN
[2018-06-05] MEDS ORDERED: FAMOTIDINE/NS 20 MG/50 ML BAG (S0028) As Ordered ONE (06:39)
[2018-06-05] MEDS ORDERED: PROPOFOL 200 MG/20 ML VIAL As Ordered ONE (06:54)
[2018-06-05] MEDS ORDERED: ONDANSETRON 4MG/2ML VIAL (J2405) As Ordered ONE (06:55)
[2018-06-05] MEDS ORDERED: dexameTHASONE 4 MG/ML 1ML VIAL (J1100) As Ordered ONE (06:55)
[2018-06-05] MEDS ORDERED: KETOROLAC 60 MG/2 ML VIAL (J1885) As Ordered ONE (06:55)
[2018-06-05] MEDS ORDERED: LIDOCAINE 2% INJ 100 MG/5 ML SDV (FOR ANES.) As Ordered ONE (06:55)
[2018-06-05] MEDS ORDERED: ROCURONIUM BROMIDE 50 MG/5 ML VIAL As Ordered ONE (06:55)
[2018-06-05] MEDS ORDERED: SUGAMMADEX SODIUM 500 MG/5 ML VIAL (BRIDION) As Ordered ONE (06:55)
[2018-06-05] MEDS ORDERED: MIDAZOLAM INJ 5 MG/ML VIAL (J2250) As Ordered ONE (06:56)
[2018-06-05] MEDS ORDERED: fentaNYL 100 MCG/2 ML INJECTION (J3010) As Ordered ONE (06:57)
[2018-06-05] MEDS ORDERED: ceFAZolin 2 GM/D5W 50 ML IV BAG (J0690 PER 500MG) As Ordered ONE (07:05)
[2018-06-05] MEDS ORDERED: FLUORESCEIN 10% (100MG/ML) 5 ML VIAL As Ordered ONE (07:13)
[2018-06-05] MEDS ORDERED: BUPIVACAINE/EPIN 0.25% 30 ML VIAL As Ordered ONE (07:13)
[2018-06-05] MEDS ORDERED: KETAMINE HCL 200 MG/20 ML VIAL As Ordered ONE (08:02)
[2018-06-05] MEDS ORDERED: METHOCARBAMOL INJection 1,000 MG, VIAL MATE ADAPTER 1 EACH in NS 250 ML IV ONE (09:00)
[2018-06-05] MEDS ORDERED: LR 1,000 ML IV ONE (09:00)
[2018-06-05] MEDS ORDERED: ONDANSETRON 4MG/2ML VIAL (J2405) IV PRN (09:45)
[2018-06-05] MEDS ORDERED: oxyCODONE 5MG TAB PO PRN (09:45)
[2018-06-05] MEDS ORDERED: HYDROMORPHONE HCL 0.5 MG/ 0.5 ML SYRINGE (J1170 PER 1) IV PRN (09:45)
[2018-06-05] MEDS ORDERED: LR 1,000 ML IV SCH ×2 (09:45)
[2018-06-05] MEDS ORDERED: fentaNYL 100 MCG/2 ML INJECTION (J3010) IV PRN (09:45)
[2018-06-05] MEDS ORDERED: ACETAMINOPHEN 1000MG 100ML IV BTL (OFIRMEV) (J0131 PER 10MG) As Ordered ONE (10:47)
--- NOTE | 2018-06-05 11:11 | RO ---
DATE OF PROCEDURE: 06/05/2018 Lianne is a 63-year-old female with a history of postmenopausal bleeding, fibroid uterus, and ovarian cyst. Endometrial biopsy was done, which was negative. After extensive counseling in the office, a decision was made to proceed with a robotic-assisted total hysterectomy, bilateral salpingo-oophorectomy, and cystoscopy. The patient was met in the recovery room. The informed consent was reaffirmed. She was then taken back to the operating room. PREOPERATIVE DIAGNOSES: 1. Postmenopausal bleeding. 2. Fibroid uterus. 3. Ovarian cyst. POSTOPERATIVE DIAGNOSES: 1. Postmenopausal bleeding. 2. Fibroid uterus. 3. Ovarian cyst. 4. Pelvic adhesion. PROCEDURES: 1. Robotic-assisted total hysterectomy. 2. Bilateral salpingo-oophorectomy. 3. Lysis of adhesions. 4. Cystoscopy. ANESTHESIA: General. SURGEON: Jl Worley DO FISH RECEIVER: INA Randle COMPLICATION: None. ESTIMATED BLOOD LOSS: Less than 50 mL. Enlarged uterus, multiple pelvic adhesions with the bowel adherent to the pelvic sidewall, as well as adhesion on posterior cul-de-sac. The bladder was adherent to the lower uterine segment. On cystoscopy, bilateral ureteral jets were noted. No evidence of any bladder injury or urethral injury. DESCRIPTION OF PROCEDURE: After obtaining informed consent, the patient was taken to the operating room where general anesthetic was found to be adequate. She was then draped and prepped in usual sterile fashion in the dorsal lithotomy position. At this point, a Michelle catheter was placed in the bladder for drainage. We then placed a LETY II uterine manipulator. We then turned our attention to the abdomen, where it insufflated with CO2 gas through a Veress needle. An 8-mm supraumbilical incision was made for the camera port. We then placed two 8-mm left lateral port for robotic arm two and the assist port on the right side an 8-mm lateral port was placed for robotic arm one. At this point, the robot was brought to the patient's right side. The camera port was docked. Proper targeting of the operative site was done after passing the targeting sequence of both arm one and arm two was then docked in the usual fashion. At this point, the vessel sealer was placed in arm two, and the bipolar grasper in arm one. I then unscrubbed and went to the surgeon console and began the surgery. Upon evaluating the pelvis, multiple pelvic adhesions were seen. Using the vessel sealer and the bipolar grasper, those adhesions were taken down. The adhesions on the lower uterine segment were also freed with careful dissection, not to injure the bladder. At this point, the infundibulopelvic ligament was identified. This was grasped with the vessel sealer, cauterized, and cut. Serial bites were taken all the way down to the round ligament, the uterine arteries, which were also cauterized and cut. At this point, the anterior leaflet of the broad ligament was dissected to create a bladder flap. The bladder was pushed completely out of the operative field. The uterine arteries were completely secured with the vessel sealer and the bipolar grasper. I then turned my attention to the opposite side, which was done in a similar fashion, taking down the ovaries, tubes, and the uterine arteries on that side. The anterior leaflet of the broad ligament was dissected on that side also to complete the bladder flap, and the bladder was completely pushed out of the operative field. At this point, the vessel sealer was removed and Endo Shear introduced. Anterior and posterior colpotomy was performed. The uterus, bilateral fallopian tubes, and ovaries were removed through the vagina. This was left in place in the vagina to maintain pneumoperitoneum. The anesthesiologist gave 1 mL of Furacin to assist with cystoscopy. At this point, the Endo Shear was removed. A needle rolloff driver was introduced, and 2-0 V-Loc suture was introduced through the assist port, and the vaginal cuff was then closed in a running fashion using the 2-0 V-Loc suture. The peritoneum over the vaginal cuff was also closed in a running fashion. Pelvis copiously irrigated with normal saline and suctioned out. The needle was removed. All instruments removed. I then rescrubbed and went to the patient's side. Retrograde filled the bladder with approximately 230 mL of normal saline. The Michelle catheter was removed. A cystoscope was inserted, and a cystoscopy was performed. Bilateral ureteral jets were noted with yellow dye coming out of the ureters. No evidence of any bladder injury noted. At this point, the instruments were removed, and a Michelle catheter was replaced back in the bladder for drainage. I then went to the patient's abdomen, where all the robotic trocars were removed, and the ports were closed using 3-0 Vicryl in a subcuticular fashion. 0.25% Marcaine was placed for postoperative pain. The patient tolerated the procedure well. She was then transferred to recovery room in stable condition.
[2018-06-05] MEDS ORDERED: IBUP-1022 PO (12:00)
[2018-06-05] MEDS ORDERED: PERC5TAB12 PO (12:00)
[2018-06-05] MEDS: SIMETHICONE 80 MG CHEW TAB PO SCH ×3 (12:30→23:13)
[2018-06-05] MEDS: IBUPROFEN 800 MG TAB PO SCH ×3 (12:30→23:13)
[2018-06-05] MEDS: PERCOCET 5MG/325MG TAB PO PRN ×2 (12:32→21:29)
[2018-06-05] MEDS ORDERED: NORTRIPTYLINE 25 MG CAP PO SCH (21:00)
[2018-06-05] MEDS ORDERED: BACLOFEN 10 MG TAB PO SCH (21:00)
[2018-06-05] MEDS ORDERED: ATORVASTATIN 20 MG TAB PO SCH (21:00)
[2018-06-05] MEDS ORDERED: traZODone 50 MG TAB PO SCH (21:00)
[2018-06-06] VITALS: BP 139/78
[2018-06-06] MEDS ORDERED: ALBUTEROL 90 MCG/ACT 8GM HFA INHALER INH PRN
[2018-06-06] MEDS: CARVedilol 12.5 MG TAB PO SCH ×2 (01:13→08:28)
[2018-06-06] MEDS: TOPIRAMATE (TopAMAX) 100 MG TAB PO SCH ×2 (01:13→08:27)
[2018-06-06] MEDS: GABAPENTIN 400 MG CAP PO SCH ×2 (01:14→08:27)
[2018-06-06] MEDS: PANTOPRAZOLE 40MG TAB (PROTONIX) PO SCH ×2 (01:14→08:27)
[2018-06-06 04:00] VITALS: BP 131/76
--- NOTE | 2018-06-06 05:54 | CR.PDOC ---
General Date of Consultation: Jun 05, 2018 Referring Provider: MUNA DHILLON MD Attending Physician: Jl Worley DO Consultation REASON FOR CONSULTATION/CHIEF COMPLAINT: . Management of medical comorbidities. HISTORY OF PRESENT ILLNESS: . 63-year-old female with past medical history of hypertension, dyslipidemia, GERD, osteoarthritis, allergic rhinitis, chronic lower back pain, and fibromyalgia was admitted under the [facility] service for history of postmenopausal bleeding, fibroid uterus, and ovarian cyst. An endometrial biopsy was done which was apparently negative according to provider documentation. The patient was admitted here for robotic-assisted total hysterectomy, bilateral salpingectomy oophorectomy, and cystoscopy. The hospitalist service was consulted for management of the patient's medical comorbidities. At this time, patient denies any complaints of fevers, chills, chest pain, palpitations, abdominal pain, or any nausea/vomiting/diarrhea. ALLERGIES: Please see below. HOME MEDICATIONS: Please see below. PAST MEDICAL HISTORY: As noted above. PAST SURGICAL HISTORY: 1. She had back surgery in 2004. 2. Cervical discotomy in 1996. 3. (C) section deliveries in 1985 and 1988. 4. Tonsillectomy in 1962. 5. Sinus surgery in 1956. 6. Colonoscopy February 2013. 7. Inguinal hernia repair January 2013. 8. Sacral dorsal column stimulator implant 07/04/2013. 9. Left knee meniscal tear repair 07/27/2014. 10. Right shoulder surgery July 2013. SOCIAL HISTORY: Denies any tobacco, alcohol, illicit drug use REVIEW OF SYSTEMS: 10 point review of systems negative unless otherwise specified in HPI. PHYSICAL EXAMINATION: VITAL SIGNS: Please see below. GENERAL APPEARANCE: . Awake, alert, in no acute distress HEENT: . Normocephalic, atraumatic RESPIRATORY: . Clear to auscultation bilaterally CARDIOVASCULAR: . Normal rate, normal S1, S2 ABDOMEN: . Soft, robotic-assisted entry portal sites noted on abdominal wall. No tenderness to palpation. EXTREMITIES: . No erythema, no tenderness LABORATORY DATA: Please see below. ASSESSMENT/PLAN: s/p Robotic assisted Total Hysterectomy, B/L Salpingo-Oophorectomy, Lysis of Adhesions, Cystoscopy Further mgmt as per [facility] HTN Cont Current Meds Dyslipidemia Continue statin Chronic pain/fibromyalgia Continue home regimen as ordered Hx of CAD s/p stenting in 2016 May resume Plavix when cleared by [facility] following surgery Cont Coreg, Statin, Lisinopril DVT Prophylaxis SCDs/TEDs Thank you for allowing us to partake in the care of this patient. Please do not hesitate to reach out to our group for any further questions. Vital Signs/I&O Vital Signs Date Time Temp Pulse Resp B/P (MAP) Pulse Ox O2 Delivery O2 Flow Rate FiO2 06/06/18 04:00 98.3 83 20 131/76 (94) 96 2.0 I&O- Last 24 Hours up to 6 AM 06/06/18 06:00 Intake Total 2895 ml Output Total 4100 ml Balance -1205 ml Allergies Coded Allergies: amoxicillin (Unverified Adverse Reaction, Unknown, diarrhea, 05/29/18) cefuroxime (Unverified Adverse Reaction, Unknown, diarrhea, 05/29/18) clavulanic acid (Unverified Adverse Reaction, Unknown, diarrhea, 05/29/18) morphine (Unverified Adverse Reaction, Unknown, muscle twitching, jittery, 05/29/18) pregabalin (Unverified Adverse Reaction, Unknown, blurred vision, 05/29/18) propoxyphene (Unverified Adverse Reaction, Unknown, hallucinations, dizziness, 05/29/18) Home Medications Scheduled Alcaftadine (Lastacaft) 0.25 % Bhavana, 1 DROP OU DAILY, (Reported) Atorvastatin Calcium (Atorvastatin Calcium) 40 Mg Tablet, 40 MG PO DAILY, (Reported) Baclofen (Baclofen) 10 Mg Tablet, 20 MG PO QHS, (Reported) Baclofen (Baclofen) 10 Mg Tablet, 10 MG PO QAM, (Reported) Calcium Carb/Vit D3/Minerals (Calcium 600+D Plus Minerals Tb) 1 Each Tablet, 1 TAB PO DAILY, (Reported) Carvedilol (Carvedilol) 25 Mg Tablet, 25 MG PO BID, (Reported) Cetirizine HCl (Cetirizine HCl) 10 Mg Tablet, 10 MG PO DAILY, (Reported) Clonazepam (Clonazepam) 0.5 Mg Tab.rapdis, 0.5 MG PO BID, (Reported) Clopidogrel Bisulfate (Clopidogrel) 75 Mg Tab, 75 MG PO DAILY, #30 (Reported) Fluticasone Propion/Salmeterol (Advair Hfa 115-21 Mcg Inhaler) 12 Gm Hfa.aer.ad, 2 PUFFS INH BID, (Reported) Fluticasone Propionate (Flonase Allergy Relief) 9.9 Ml Bradley.susp, 50 MCG NA DAILY, (Reported) Gabapentin (Gabapentin) 400 Mg Capsule, 400 MG PO TID, (Reported) Ibuprofen (Ibuprofen) 600 Mg Tablet, 600 MG PO TID for pain for 10 Days, #30 with food Lisinopril (Lisinopril) 2.5 Mg Tab, 2.5 MG PO DAILY, #30 (Reported) Melatonin (Melatonin) 10 Mg Capsule, 10 MG PO QHS, (Reported) Montelukast Sodium (Montelukast Sodium) 10 Mg Tablet, 10 MG PO DAILY, (Reported) Nortriptyline HCl (Nortriptyline HCl) 25 Mg Capsule, 25 MG PO QHS, (Reported) [place]-3/Dha/Epa/Fish Oil ([place] 3 500 Softgel) 1 Each Capsule, 1 CAP PO DAILY, (Reported) Pantoprazole Sodium (Pantoprazole Sodium) 40 Mg Tablet.dr, 40 MG PO BID, (Reported) Sertraline Hcl (Zoloft) 50 Mg Tab, 50 MG PO DAILY, (Reported) Sucralfate (Sucralfate) 1 Gm Tablet, 1 GM PO TID, (Reported) Topiramate (Topiramate) 100 Mg Tablet, 100 MG PO BID, (Reported) Trazodone HCl (Trazodone HCl) 150 Mg Tablet, 150 MG PO QHS, (Reported) [Restasis Eye Drops] , 1 DROP OU BID, (Reported) Scheduled PRN Albuterol Sulfate (Proventil Hfa) 6.7 Gm Hfa.aer.ad, 2 MCG INH Q4HP PRN for SOB/WHEEZING, (Reported) Hydrocodone/Acetaminophen (Vicodin Hp 10-300 mg Tablet) 1 Tab Tab, 1 TAB PO Q6HP PRN for PAIN, (Reported) Nitroglycerin (Nitroglycerin) 0.4 Mg Sub, for CHEST PAIN, #25 (Reported) Oxycodone HCl/Acetaminophen (Percocet 5-325 mg Tablet) 1 Each Tablet, 1 TAB PO Q6H PRN for PAIN, #20 Oxycodone/Acetaminophen (Oxycodone-Acetaminophen 5-325) 1 Each Tablet, 1 TAB PO Q8HP PRN for PAIN, (Reported) MUNA DHILLON MD Jun 06, 2018 05:54
[2018-06-06] MEDS: SIMETHICONE 80 MG CHEW TAB PO SCH (06:06)
[2018-06-06] MEDS: IBUPROFEN 800 MG TAB PO SCH (06:06)
[2018-06-06 08:00] VITALS: BP 183/98
[2018-06-06 08:28] VITALS: BP 183/98
[2018-06-06 09:00] VITALS: BP 168/91
[2018-06-06] MEDS ORDERED: BACLOFEN 10 MG TAB PO SCH (09:00)
[2018-06-06] MEDS ORDERED: FLUTICASONE PROP 0.05% NASAL SPRAY 16 GM (FLONASE) SCH (09:00)
[2018-06-06] MEDS ORDERED: SUCRALFATE 1 GM TAB PO SCH (09:00)
[2018-06-06] MEDS ORDERED: LISINOPRIL *2.5 MG* TAB PO SCH (09:00)
[2018-06-06] MEDS ORDERED: MONTELUKAST 10 MG TAB PO SCH (09:00)
[2018-06-06] MEDS ORDERED: ADVAIR HFA 115/21MCG INHALER INH SCH (09:00)
[2018-06-06] MEDS ORDERED: SERTRALINE HCL 50 MG TAB PO SCH (09:00)
[2018-06-06] MEDS ORDERED: CETIRIZINE (ZyrTEC) 10 MG TAB PO SCH (09:00)
== END 2018-06-06 10:30 | disposition home or self-care (01) ==
LOC: M SDC 06:05 → M PED 11:23 → M SDC 06-06 10:30
PROVIDERS: ATTEND Obstetrics & Gynecology
DX: N95.0 Postmenopausal bleeding (principal); D25.1 Intramural leiomyoma of uterus; D25.2 Subserosal leiomyoma of uterus; N83.201 Unspecified ovarian cyst, right side; N83.02 Follicular cyst of left ovary; N83.8 Other noninflammatory disorders of ovary, fallopian tube and broad ligament; N73.6 Female pelvic peritoneal adhesions (postinfective); I25.10 Atherosclerotic heart disease of native coronary artery without angina pectoris; I25.2 Old myocardial infarction; I10 Essential (primary) hypertension; I49.2 Junctional premature depolarization; I25.5 Ischemic cardiomyopathy; E78.00 Pure hypercholesterolemia, unspecified; K21.9 Gastro-esophageal reflux disease without esophagitis; M12.9 Arthropathy, unspecified; M54.5 Low back pain; G89.29 Other chronic pain; M79.7 Fibromyalgia; G43.001 Migraine without aura, not intractable, with status migrainosus; J30.89 Other allergic rhinitis; R06.83 Snoring; G47.33 Obstructive sleep apnea (adult) (pediatric); Z88.1 Allergy status to other antibiotic agents; Z88.5 Allergy status to narcotic agent; Z88.8 Allergy status to other drugs, medicaments and biological substances; Z79.899 Other long term (current) drug therapy; Z96.89 Presence of other specified functional implants
CPT/HCPCS: 58571; 88307; 94640; J0131; J0690; J1100; J2250; J2405; J2800; J3010

== ENCOUNTER → 2018-07-25 | Outpatient (REF) | payer MEDICARE, BC ==
[~2018-07-25] MED LIST changes: +IBUP-1022 PO; -LIDOCAINE 1% MDV 20ML VIAL SQ PRN; +PERC5TAB12 PO
[2018-07-25 15:52] LABS: BASO # 0.1 10^3/uL (0.0-0.2); BASO % 0.6 % (0.0-1.0); EOS # 0.1 10^3/uL (0.0-0.50); EOS % 0.6 % (0.0-3.0); HEMATOCRIT 40.1 % (36.0-47.0); LYMPH # 2.5 10^3/uL (1.5-4.5); LYMPH % 24.4 % (24.0-44.0); MEAN CORPUSCULAR HGB CONC 32.4 g/dl (32.0-36.5); MEAN CORPUSCULAR VOLUME 95.5 fl (80.0-96.0); MONO # 0.7 10^3/uL (0.0-0.8); NEUTROPHILS # 6.8 10^3/uL (1.8-7.7); PLATELET COUNT, AUTOMATED 282 10^3/uL (150-450); WHITE BLOOD COUNT 10.2 10^3/uL (4.0-10.0)
[2018-07-25 15:57] LABS: C REACTIVE PROTEIN QUANTITATIV 0.51 MG/DL (0.00-0.30); RHEUMATOID FACTOR QUANT < 10.0 IU/ML (<15.0)
[2018-07-25 17:04] LABS: ERYTHROCYTE SEDIMENTATION RATE 17 mm/hr (0-30)
[2018-07-28 00:06] LABS: ANTINUCLEAR ANTIBODIES DIRECT Negative (Negative); Lyme Disease IgG/IgM Antibodie <0.91 ISR (0.00-0.90); Lyme Disease IgM Ab Quantitati <0.80 index (0.00-0.79)
== END ==
LOC: M LABDRAW1 12:19
PROVIDERS: ATTEND Orthopaedic Surgery
DX: M17.12 Unilateral primary osteoarthritis, left knee (principal)

== ENCOUNTER → 2019-03-31 | Outpatient (CLI) | payer MEDICARE, BC ==
[~2019-03-31] MED LIST changes: -ALBU17IN2 INH; -ALL10TAB28 PO; +ALL10TAB29 PO; +GABA600T4 PO; +ISOVUE-M 300 61% 15ML VIAL (Q9967) As Ordered ONE; +LIDOCAINE 1% MDV 20ML VIAL As Ordered ONE; +LIDODERM PATCH TD; +MAGN400C PO; -MONT10TA2 PO; +MONT10TA4 PO; +PROV108A INH; +TIOT18INH INH; +VENTAER INH
[2019-03-31 11:12] LABS: HEMATOCRIT 41.8 % (36.0-47.0); HEMOGLOBIN 13.6 g/dl (12.0-15.5); MEAN CORPUSCULAR HEMOGLOBIN 31.1 pg (27.0-33.0); MEAN CORPUSCULAR HGB CONC 32.5 g/dl (32.0-36.5); MEAN CORPUSCULAR VOLUME 95.7 fl (80.0-96.0); PLATELET COUNT, AUTOMATED 301 10^3/uL (150-450); RED BLOOD COUNT 4.37 10^6/uL (4.00-5.40); WHITE BLOOD COUNT 8.4 10^3/uL (4.0-10.0)
[2019-03-31 11:23] LABS: PROTHROMBIN TIME 12.9 SECONDS (11.8-14.0)
--- NOTE | 2019-03-31 13:11 | REPVR ---
PROCEDURE INFORMATION: Exam: CT Cervical Spine Without Contrast Exam date and time: 03/31/2019 12:23 PM Age: 63 years old Clinical indication: Condition or disease; Disc myelopathy; Vertebra area not specified TECHNIQUE: Imaging protocol: Computed tomography images of the cervical spine without contrast. Myelography was performed prior to imaging, please see separate report for comments on the procedure. Radiation optimization: All CT scans at this facility use at least one of these dose optimization techniques: automated exposure control; mA and/or kV adjustment per patient size (includes targeted exams where dose is matched to clinical indication); or iterative reconstruction. COMPARISON: CT Spine,cervical w/o contrast 04/02/2017 6:58 PM. FINDINGS: Vertebrae: Trace 1-2 mm of degenerative retrolisthesis of C6 on C7, as before. No acute fracture seen. Prior ACDF at C5-C6 with solid osseous bridging across the disc space. Diffuse disc height loss and spondylosis is moderate at C6-C7, as before. A focal, sclerotic lesion in the posterior aspect of C7 is unchanged, likely represents a bone island. Discs/Spinal canal/Neural foramina: C2-C3: Mild uncovertebral arthropathy, more so on the left without contribution to foraminal stenoses. The central spinal canal is patent. C3-C4: Subtle central disc protrusion does not contribute to central spinal canal stenosis. Minimal uncovertebral arthropathy without contribution to foraminal stenoses. C4-C5: 3 mm central disc protrusion nearly entirely effaces CSF anterior to the cord causing mild cord indentation. There is mild posterior ligamentum flavum buckling. Central spinal canal stenosis is [id number]; AP thecal sac diameter approximately 8 mm. The neural foramina remain patent. C5-C6: Prior ACDF. No stenoses. C6-C7: Trace retrolisthesis. Disc osteophyte complex partially effaces ventral thecal sac CSF without contributing to significant central spinal canal stenosis. Mild uncovertebral arthropathy without contribution to foraminal stenoses. C7-T1: Mild facet arthropathy. No stenoses. Soft tissues: Unremarkable. Lungs: Lung apices are normal. IMPRESSION: Central disc protrusion as well as mild posterior ligamentum flavum buckling at C4-C5 causing [id number] central spinal canal stenosis. Electronically signed by: Arielle Esquivel On 03/31/2019 13:09:41 PM
--- NOTE | 2019-03-31 13:20 | REPVR ---
PROCEDURE INFORMATION: Exam: CT Lumbar Spine Without Contrast Exam date and time: 03/31/2019 12:23 PM Age: 63 years old Clinical indication: Condition or disease; Other: Myelopathy TECHNIQUE: Imaging protocol: Computed tomography images of the lumbar spine without contrast. Radiation optimization: All CT scans at this facility use at least one of these dose optimization techniques: automated exposure control; mA and/or kV adjustment per patient size (includes targeted exams where dose is matched to clinical indication); or iterative reconstruction. COMPARISON: CT Spine, lumbar w/o contrast 04/02/2017 9:14 PM FINDINGS: Tubes, catheters and devices: A metallic stimulator device is partially visualized in the left back soft tissues. Vertebrae: Mild upper lumbar levoconvex scoliosis and lower lumbar dextroconvex scoliosis. No acute fracture seen. Exnh-bt-hjungikz disc height loss and spondylosis with vacuum change of disc space at L2-L3. Minimal disc height loss and endplate degenerative changes elsewhere. The conus medullaris ends normally. Discs/Spinal canal/Neural foramina: L1-L2: Mild facet arthropathy. Slight right eccentric disc osteophyte complex. No stenoses. L2-L3: Mild right eccentric disc osteophyte complex as well as mild to moderate right and mild left facet arthropathy. The central spinal canal remains patent. Mild right neural foraminal stenosis. No significant left neural foraminal narrowing. L3-L4: Mild disc bulge as well as mild to moderate facet arthropathy. No stenoses. L4-L5: Moderate facet arthropathy. The central spinal canal is patent. Mild left neural foraminal stenosis. No significant right neural foraminal narrowing. L5-S1: Moderate facet arthropathy. No stenoses. Sacrum/coccyx: Mild degenerative changes of the sacroiliac joints, more so on the right. Vasculature: The aorta demonstrates mild atherosclerosis. Soft tissues: Unremarkable. IMPRESSION: 1. Mild degenerative scoliosis. 2. Yfkz-tg-cnxzvxpp degenerative disc disease at L2-L3. 3. No significant stenoses. Electronically signed by: Arielle Esquivel On 03/31/2019 13:18:48 PM
--- NOTE | 2019-03-31 13:28 | REPVR ---
PROCEDURE INFORMATION: Exam: CT Thoracic Spine Without Contrast Exam date and time: 03/31/2019 12:23 PM Age: 63 years old Clinical indication: Condition or disease; Other: Myelopathy. TECHNIQUE: Imaging protocol: Computed tomography images of the thoracic spine without contrast. Myelography was performed prior to CT imaging, please see separate reports for comments. Radiation optimization: All CT scans at this facility use at least one of these dose optimization techniques: automated exposure control; mA and/or kV adjustment per patient size (includes targeted exams where dose is matched to clinical indication); or iterative reconstruction. COMPARISON: CT Spine,thoracic w/o contrast 04/02/2017 9:14 PM FINDINGS: Tubes, catheters and devices: Leads of the stimulator device enters the dorsal spinal canal beneath the T6 spinous process. Vertebrae: Mild midthoracic dextroconvex scoliosis and lower thoracic levoconvex scoliosis. No acute fracture seen. Discs/Spinal canal/Neural foramina: No significant focal disc protrusion or extrusion seen; a very subtle left paracentral disc protrusion at T6-7 minimally indents left ventral thecal sac. The thoracic central spinal canal appears patent at all levels. No significant foraminal stenoses. There is aiqw-qv-ygejqlrh lower thoracic degenerative disc disease; lower thoracic disc osteophyte complexes causes no more than minimal ventral thecal sac mass effect. Soft tissues: Unremarkable. Heart: There are coronary artery calcifications. Mediastinum: Small hiatal hernia. IMPRESSION: 1. Mild scoliosis. 2. Mcto-hf-wfwuwprc lower thoracic degenerative disc disease. 3. No stenoses. Electronically signed by: Arielle Esquivel On 03/31/2019 13:26:27 PM
[2019-03-31 14:20] VITALS: BP 145/82
--- NOTE | 2019-03-31 17:32 | REP ---
FLUORO GUIDED SPINAL INJECTION FOR CT MYELOGRAPHY The procedure was performed under the personal supervision of Dr. Milton. The patient is referred for CT myelography of the cervical, thoracic and lumbar spine. The benefits and risks including but not limited to pain infection bleeding and anaphylaxis were explained to the patient and informed consent was obtained. The L3-4 interspace was localized using fluoroscopic guidance. The skin was prepped and draped in a sterile fashion. 1% lidocaine was used as a local anesthetic. Using fluoroscopic guidance a 22-gauge spinal needle was inserted and advanced into the thecal sac. 10 ml of Isovue-M 300 was injected. The needle was then removed. The table was then tipped in Trendelenburg position and the contrast was run into the cervical spine. The patient was taken to CT scan for postprocedural imaging. The patient tolerated the procedure well and there were no immediate complications. After the appropriate amount of monitored convalescence the patient was discharged from the department. 0.7 minutes of fluoroscopy time was utilized for this procedure. Electronically Signed by CHARLES Simons 03/31/2019 04:22 P Electronically Signed by Robert Milton MD 03/31/2019 05:23 P
== END ==
LOC: M IRPRO 10:42
PROVIDERS: ATTEND Neurological Surgery
DX: M79.7 Fibromyalgia (principal); I10 Essential (primary) hypertension; E78.5 Hyperlipidemia, unspecified; K21.9 Gastro-esophageal reflux disease without esophagitis; M54.5 Low back pain; M12.9 Arthropathy, unspecified; J45.909 Unspecified asthma, uncomplicated; I20.9 Angina pectoris, unspecified
CPT/HCPCS: 72125; 72128; 72131; 72270; 85027; 85610; Q9967

== ENCOUNTER → 2019-04-24 | Outpatient (CLI) | payer MEDICARE, BC ==
[~2019-04-24] MED LIST changes: -ISOVUE-M 300 61% 15ML VIAL (Q9967) As Ordered ONE; -LIDOCAINE 1% MDV 20ML VIAL As Ordered ONE
== END ==
LOC: M LAB 12:28
PROVIDERS: ATTEND Physical Medicine & Rehabilitation
DX: G56.22 Lesion of ulnar nerve, left upper limb (principal); Z98.1 Arthrodesis status

== ENCOUNTER → 2019-08-01 | Outpatient (CLI) | payer MEDICARE, BC ==
[~2019-08-01] MED LIST changes: -ALL10TAB29 PO; +CETI-24 PO; -LISI-1046 PO; +LISI2.5T2 PO; +OXYC30TA PO; -OXYC30TA84 PO; +PANT40TA29 PO; -PANT40TA3 PO
[2019-08-01 13:29] LABS: PLATELET COUNT, AUTOMATED 307 10^3/uL (150-450)
[2019-08-01 13:37] LABS: INR 0.94; PROTHROMBIN TIME 12.3 SECONDS (11.8-14.0)
[2019-08-01 13:38] LABS: PARTIAL THROMBOPLASTIN TIME 29.6 SECONDS (25.0-38.4)
== END ==
LOC: M LAB 12:43
PROVIDERS: ATTEND Physician Assistant
DX: Z01.812 Encounter for preprocedural laboratory examination (principal); M47.22 Other spondylosis with radiculopathy, cervical region
CPT/HCPCS: 36415; 85027; 85610; 85730; 86235; G0463

== ENCOUNTER → 2019-08-01 | Outpatient (REF) | payer MEDICARE, BC ==
[~2019-08-01] MED LIST changes: +ALL10TAB29 PO; -CETI-24 PO; -PANT40TA29 PO; +PANT40TA3 PO
[2019-08-02 14:08] LABS: SSA SJOGRENS A <0.2 AI (0.0-0.9); SSB SJOGRENS B <0.2 AI (0.0-0.9)
== END ==
LOC: M SFHCRHEU 12:03
PROVIDERS: ATTEND Internal Medicine
DX: E50.7 Other ocular manifestations of vitamin A deficiency (principal)

== ENCOUNTER → 2019-08-08 | Outpatient (CLI) | payer MEDICARE, BC | LOC: M LABSMTC 10:37 | PROVIDERS: ATTEND Physical Medicine & Rehabilitation | DX: Z11.59 Encounter for screening for other viral diseases (principal) ==

== ENCOUNTER → 2019-11-13 | Outpatient (CLI) | payer MEDICARE, BC ==
[~2019-11-13] MED LIST changes: -ALL10TAB29 PO; +CETI-24 PO; +PANT40TA29 PO; -PANT40TA3 PO
--- NOTE | 2019-11-13 12:09 | REPMRS ---
Patient History The patient states she has not had a clinical breast exam in over a year. Patient is postmenopausal and had first child at age 30. Family history of pancreatic cancer at age 67 in brother. No Hormone Replacement Therapy 3D TOMOSYNTHESIS WAS PERFORMED. The [facility] lifetime risk for breast cancer is 7.6%. VOLPARA DENSITY A. Digital Woman Screen Mammo: November 13, 2019 - Exam #: [id number] Bilateral CC and MLO view(s) were taken. Technologist: Arielle Hammonds, Technologist Prior study comparison: November 11, 2018, bilateral digital mammo screening bilat, performed at [facility]. FINDINGS: There are scattered fibroglandular densities. There has been no change in the appearance of the mammogram from the prior studies. There is a mild amount of residual fibroglandular tissue which is fairly symmetric. There is no interval development of dominant mass, architectural distortion, or clustered microcalcification suggestive of malignancy. Assessment: BI-RADS/ACR category 1 mammogram. Negative Mammogram. Recommendation Routine screening mammogram in 1 year (for women over age 40). This mammogram was interpreted with the aid of an FDA-approved computer-aided dectection system. Electronically Signed By: Zhou Diaz MD 11/13/19 [id number]
--- NOTE | 2019-11-24 12:30 | DEXA ---
AP SPINE L1 - L4 1.286 0.7 2.4 LT FEMUR TOTAL 0.856 -1.2 0.1 LT NECK 0.807 -1.7 -0.1 RT FEMUR TOTAL 0.878 -1.0 0.2 RT NECK 0.815 -1.6 -0.1 TOTAL BODY TOTAL OTHER COMMENTS: Normal bone densitometry of the spine. There is low bone density of the hips. The increased density of the spine does represent significant change. The decreased density of the left hip does represent significant change. The decreased density of the right hip does represent a significant change. The density of the spine is increased 4.2% since the initial exam on 07/23/2009. The increased 3.0% since the most recent exam on 11/05/2015. The density of the left hip has decreased 5.0% since the initial exam on 07/23/2009. The density of the left hip has decreased 4.4% since the most recent exam on 11/05/2015. The density of the right hip has decreased 2.0% since the initial exam on 07/23/2009. The density of the right hip has decreased 3.4% since the most recent exam on 11/05/2015. FOLLOW-UP: Recommendation for the next bone density exam: 2 years. GALNIA
== END ==
LOC: M WHC 10:37
PROVIDERS: ATTEND Obstetrics & Gynecology
DX: Z12.31 Encounter for screening mammogram for malignant neoplasm of breast (principal); Z13.820 Encounter for screening for osteoporosis; Z78.0 Asymptomatic menopausal state; Z80.0 Family history of malignant neoplasm of digestive organs; M85.851 Other specified disorders of bone density and structure, right thigh; M85.852 Other specified disorders of bone density and structure, left thigh

== ENCOUNTER 2019-12-29 11:43 | Emergency (ER) | payer MEDICARE, BC ==
[~2019-12-29] VITALS: Ht 152.4 cm; Wt 91.8 kg
--- NOTE | 2019-12-29 12:53 | REP ---
INDICATION: CHEST PAIN. COMPARISON: August 08, 2017.. TECHNIQUE: Portable sitting AP chest x-ray. FINDINGS: Monitoring electrodes are seen. Dorsal column stimulator leads are noted in the thoracic canal. Ventral cervical spine diskectomy fusion plating is noted. There is linear fibrosis in the left base unchanged from the comparison study of August 08, 2017. Right hemidiaphragm remains slightly elevated. No infiltrate is seen. Pleural angles are sharp. Cardiomediastinal silhouette is unremarkable and unchanged. Pulmonary vasculature is not increased. No other bony abnormality. IMPRESSION: Linear fibrosis left base. These findings are unchanged from the comparison study. Dorsal column stimulator leads are noted. Ventral discectomy and fusion plating. Otherwise no acute disease. <Electronically signed by Dejon Milton > 12/29/19 [id number]
[2019-12-29 13:31] LABS: BASO # 0.1 10^3/uL (0.0-0.2); BASO % 0.6 % (0.0-1.0); EOS # 0.1 10^3/uL (0.0-0.5); EOS % 0.6 % (0.0-3.0); HEMATOCRIT 41.5 % (36.0-47.0); HEMOGLOBIN 13.4 g/dl (12.0-15.5); LYMPH # 2.2 10^3/uL (1.5-5.0); LYMPH % 23.3 % (24.0-44.0); MEAN CORPUSCULAR HEMOGLOBIN 30.2 pg (27.0-33.0); MEAN CORPUSCULAR HGB CONC 32.3 g/dl (32.0-36.5); MEAN CORPUSCULAR VOLUME 93.7 fl (80.0-96.0); MONO # 0.7 10^3/uL (0.0-0.8); MONO % 7.7 % (0.0-5.0); NEUTROPHILS # 6.5 10^3/uL (1.5-8.5); NEUTROPHILS % 67.5 % (36.0-66.0); PLATELET COUNT, AUTOMATED 288 10^3/uL (150-450); RED BLOOD COUNT 4.43 10^6/uL (4.00-5.40); WHITE BLOOD COUNT 9.6 10^3/uL (4.0-10.0)
[2019-12-29 14:05] LABS: ALBUMIN 3.5 GM/DL (3.2-5.2); ALT/SGPT 17 U/L (12-78); BILIRUBIN,DIRECT 0.1 MG/DL (0.0-0.2); BILIRUBIN,TOTAL 0.6 MG/DL (0.2-1.0); BLOOD UREA NITROGEN 10 MG/DL (7-18); CARBON DIOXIDE LEVEL 24 MEQ/L (21-32); CHLORIDE LEVEL 105 MEQ/L (98-107); CREATININE FOR GFR 0.84 MG/DL (0.55-1.30); GLOMERULAR FILTRATION RATE > 60.0 (>45); GLUCOSE, FASTING 80 MG/DL (70-100); NT-PRO BNP 176 PG/ML (<125); POTASSIUM SERUM 4.3 MEQ/L (3.5-5.1); SODIUM LEVEL 137 MEQ/L (136-145); TOTAL PROTEIN 6.8 GM/DL (6.4-8.2)
[2019-12-29 14:06] LABS: FREE T4 2.69 NG/DL (0.76-1.46); LIPASE 77 U/L (73-393)
[2019-12-29] MEDS ORDERED: ISOVUE-370 76% 100ML VIAL As Ordered ONE (14:17)
--- NOTE | 2019-12-29 14:45 | REP ---
INDICATION: r/o PE. COMPARISON: Comparison chest CT study with contrast March 07, 2016.. TECHNIQUE: Contrast dose: 75 ML of Isovue [address] technique: Helical scanning is acquired and overlapping 1.5 mm and contiguous 3 mm axial images are reformatted. In addition, maximum intensity projection and multiplanar re-formation images are generated in sagittal and coronal imaging projections. FINDINGS: There is good opacification in the pulmonary arterial tree. There is no evidence of vessel cut off or filling defect to suggest pulmonary embolus. Homogeneous opacity is seen in the thoracic aorta. There is no evidence of aneurysm or dissection. Lung window settings demonstrate linear platelike atelectatic changes in the left lower lobe and lingula at the left lung base and in the right middle lobe above the right hemidiaphragm. No pulmonary mass or significant nodule is appreciated.2 no infiltrate is seen. There are 2 dorsal column stimulators in the thoracic spinal column. The thoracic aorta enhances homogeneously and is normal in caliber. There is slight vascular calcification and some aortic tortuosity. No hilar or mediastinal mass or adenopathy is observed. Normal adrenal glands. The visualized upper abdominal structures are unremarkable. In the upper abdomen, IMPRESSION: No CT evidence of pulmonary embolus. Bibasilar platelike atelectasis. Dorsal column stimulator leads. Otherwise no active disease. <Electronically signed by Dejon Milton > 12/29/19 [id number]
[2019-12-29 17:00] VITALS: BP 146/85
--- NOTE | 2019-12-30 00:53 | ECGEPIP ---
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
--- NOTE | 2019-12-30 00:55 | ECGEPIP ---
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
--- NOTE | 2019-12-30 00:58 | ECGEPIP ---
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
== END 2019-12-29 17:10 | disposition home or self-care (01) ==
LOC: M ED 11:43
DX: R07.89 Other chest pain (principal); I11.0 Hypertensive heart disease with heart failure; I50.9 Heart failure, unspecified; E78.5 Hyperlipidemia, unspecified; G47.33 Obstructive sleep apnea (adult) (pediatric); K21.9 Gastro-esophageal reflux disease without esophagitis; M79.7 Fibromyalgia; G43.909 Migraine, unspecified, not intractable, without status migrainosus; Z79.899 Other long term (current) drug therapy; Z88.0 Allergy status to penicillin; Z88.5 Allergy status to narcotic agent; Z88.8 Allergy status to other drugs, medicaments and biological substances
CPT/HCPCS: 36415; 71045; 71275; 80048; 80076; 83690; 83880; 84439; 84443; 84484; 85025; 93005; 93041; 94760; 99285; Q9967

== ENCOUNTER → 2020-03-05 | Outpatient (REF) | payer MEDICARE, BC ==
[~2020-03-05] MED LIST changes: -MONT10TA4 PO; +MONT5TAB2 PO
== END ==
LOC: M LAB REF 16:28
PROVIDERS: ATTEND Nurse Practitioner Adult Health
DX: N39.0 Urinary tract infection, site not specified (principal)

== ENCOUNTER → 2020-06-17 | Outpatient (CLI) | payer MEDICARE, BC ==
[~2020-06-17] MED LIST changes: +MONT10TA10 PO; -MONT5TAB2 PO
--- NOTE | 2020-06-19 00:52 | ECWPNPC ---
PATIENT NAME: MADYSON TRAORE : 1955 GENDER: FEMALE VISIT DATE: 06/17/2020 DISCHARGE DATE: 06/17/20 1351 VISIT LOCKED DATE TIME: PHYSICIAN: CATRINA WILLS RESOURCE: CATRINA WILLS REASON FOR APPOINTMENT 1. MIGRAINES-TREATING FOR BOTOX ONLY. HISTORY OF PRESENT ILLNESS DEPRESSION SCREENIN-YEAR-OLD FEMALE IN FOR INITIAL PAIN CONSULT REGARDING MIGRAINES. PATIENT ADMITS TO GREATER THAN 15 MIGRAINES A MONTH. SHE FURTHER STATES THE MIGRAINES LASTED GREATER THAN 4 HOURS AND SEVERELY IMPACTS HER LIFE. PATIENT HAS HAD BOTOX INJECTIONS IN THE PAST FOR HER MIGRAINES WITH GOOD RESULTS EVIDENCED BY DECREASED MIGRAINES. PHQ-2 (2015 EDITION) LITTLE INTEREST OR PLEASURE IN DOING THINGS?NOT AT ALL FEELING DOWN, DEPRESSED, OR HOPELESS?NOT AT ALL TOTAL SCORE0 GENERAL: - - -. FALL RISK SCREENING: SCREENING 01/2021 FALL FROM GETTING THE NEWPAPER OUTSIDE IN FROM THE SNOW, HURT HER HIP FROM IT AND DID NOT GO THE ER. PAIN SCREENING: PATIENT HAS A COMPLAINT OF ACUTE OR CHRONIC PAIN :YES LOCATION OF PAIN:HEAD PAIN GOES DOWN INTO BOTH SHOULDERS INTENSITY OF PAIN (SCALE OF 1 TO 10):6 WHAT DOES YOUR PAIN FEEL LIKE:ACHING, TENDER DURATION:CONTINOUS, CONSTANT, ALL DAY PAIN IS INCREASED BY:ACTIVITIES PAIN IS DECREASED BY:USE OF PAIN MEDICATIONS, OTHERS RESTNG AND ICE NURSING NOTE: - - -. PAIN CENTER INTAKE QUESTIONS: DO YOU HAVE A HISTORY OF MRSA? :NO DO YOU TAKE A BLOOD THINNERS? :YES PLAVIX DO YOU HAVE ANY BLEEDING DISORDERS? :NO ANY NEW NUMBNESS OR WEAKNESS IN YOUR LEGS OR ARMS? :YES NUMBNESS IN LEFT LEGS ANY PACEMAKER,DEFIBRILLATOR, OR DORSAL COLUMN STIMULATOR? :YES DCS DO YOU HAVE ANY RASHES OR OPEN SORES? :NO ARE YOU ALLERGIC TO IV DYE? :NO ARE YOU DIABETIC? :NO ANY NEW PROBLEMS WITH YOUR MEDICATIONS? :NO HAVE YOU RECEIVED A VACCINE IN THE PAST 30 DAYS? :NO DO YOU PLAN TO RECEIVE A VACCINE IN THE NEXT 21 DAYS? :NO DO YOU NEED ANY PRESCRIPTION? :NO DO YOU TAKE ANY IMMUNOSUPPRESSIVE MEDICATIONS? :NO IS THERE A CHANCE YOU COULD BE ? :NO ARE YOU BREAST FEEDING? :NO CURRENT MEDICATIONS TAKING BISOPROLOL FUMARATE 10 MG TABLET 1 TABLET ORALLY ONCE A DAY TAKING ISOSORBIDE MONONITRATE ER 30 MG TABLET EXTENDED RELEASE 24 HOUR 1 TABLET IN THE MORNING ORALLY ONCE A DAY TAKING PLAVIX 75 MG TABLET 1 TABLET ORALLY ONCE A DAY TAKING ASPIR-81 TAKING RESTASIS 0.05 % EMULSION 1 DROP INTO AFFECTED EYE OPHTHALMIC TWICE A DAY TAKING ACETAMINOPHEN 500 MG TABLET 1 TABLET NEEDED ORALLY EVERY 6 HRS TAKING MAY USE CPAP BEFORE BEDTIME TAKING ZOLOFT 50 MG TABLET 1 TABLET ORALLY ONCE A DAY TAKING BACLOFEN 10 MG TABLET 1 TABLET NEEDED ORALLY TWICE A DAY TAKING LIDODERM 5 % PATCH 1 PATCH REMOVE AFTER 12 HOURS EXTERNALLY ONCE A DAY TAKING BOTOX 200 UNIT SOLUTION RECONSTITUTED DIRECTED INJECTION TAKING TOPIRAMATE 100 MG TABLET 1 TABLET ORALLY TWICE DAILY TAKING SUCRALFATE 1 GM TABLET 1 TABLET ON AN EMPTY STOMACH ORALLY FOUR TIMES DAILY TAKING NORTRIPTYLINE HCL 25 MG CAPSULE 1 CAPSULE ORALLY ONCE A DAY TAKING MONTELUKAST SODIUM 10 MG TABLET 1 TABLET ORALLY ONCE A DAY TAKING ALBUTEROL SULFATE HFA 108 (90 BASE) MCG/ACT AEROSOL SOLUTION 1 PUFF NEEDED INHALATION EVERY 4 HRS TAKING PANTOPRAZOLE SODIUM 40 MG TABLET DELAYED RELEASE 1 TABLET ORALLY TWICE DAILY TAKING LISINOPRIL 20 MG TABLET 1 TABLET ORALLY ONCE A DAY TAKING ADVAIR HFA 230-21 MCG/ACT AEROSOL 2 PUFFS INHALATION TWICE A DAY TAKING SERTRALINE HCL 50 MG TABLET 1 TABLET ORALLY ONCE A DAY TAKING TRAZODONE HCL 50 MG TABLET 1 TAB ORALLY THREE TIMES DAILY NEEDED TAKING ATORVASTATIN CALCIUM 80 MG TABLET 1 TABLET ORALLY ONCE A DAY TAKING GABAPENTIN 600 MG TABLET 1 TABLET ORALLY EVERY EVENING TAKING FLUTICASONE PROPIONATE 50 MCG/ACT SUSPENSION 1 SPRAY IN EACH NOSTRIL NASALLY TWICE A DAY TAKING SPIRIVA RESPIMAT 1.25 MCG/ACT AEROSOL SOLUTION 2 PUFFS INHALATION ONCE A DAY TAKING RESTASIS 0.05 % EMULSION 1 DROP INTO AFFECTED EYE OPHTHALMIC TWICE A DAY TAKING BACLOFEN 10 MG TABLET 1 TABLET WITH FOOD OR MILK ORALLY TWICE DAILY TAKING GABAPENTIN 400 MG CAPSULE 1 CAPSULE ORALLY EVERY MORNING TAKING MULTIVITAMIN - TABLET 1 TABLET ORALLY ONCE A DAY TAKING CALCIUM 600 MG TABLET 1 TABLET WITH MEALS ORALLY TWICE A DAY TAKING OXYCODONE-ACETAMINOPHEN 5-325 MG TABLET 1 TABLET NEEDED ORALLY EVERY 6 HRS UNKNOWN TOPIRAMATE 100 MG TABLET 1 TABLET ORALLY TWICE DAILY UNKNOWN CARVEDILOL 25 MG TABLET 1 TABLET WITH FOOD ORALLY TWICE A DAY MEDICATION LIST REVIEWED AND RECONCILED WITH THE PATIENT PAST MEDICAL HISTORY HEADACHE HYPERTENSION SLEEP APNEA HIP PAIN CHANGES IN VISION SINCE CATARACT REMOVAL HEART ATTACK HYPERCHOLESTEROLEMIA FIBROMYALGIA ALLERGIES MORPHINE SULFATE: JUMPY/JITTERY - SIDE EFFECTS DARVON: BUGGY/CRAWLING FEELING - SIDE EFFECTS DARVOCET-N 100: BUGGY/CRAWLING FEELING - SIDE EFFECTS LYRICA: VISION PROBLEMS - SIDE EFFECTS SURGICAL HISTORY SINUS SURGERY 1957 TONSILLECTOMY 1963 D&C 1969 C SECTION 2X NECK SURGERY 1996 CATARACTS, BILATERALLY 2008 HERNIA REPAIR 02/18/2013 SHOULDER SURGERY 2013 KNEE ARTHROSCOPY 09/2018 HAMMER TOE 02/2019 DORSAL COLUMN STIMULATOR 07/04/2013 HYSTERECTOMY CARDIAC STENTS FAMILY HISTORY FATHER: 65 YRS MOTHER: 62 YRS SIBLINGS: ALIVE, SISTER- RHEUMATOID ARTHRITIS SON(S): ALIVE 5 BROTHER(S) , 2 SISTER(S) - HEALTHY. 2 SON(S) - HEALTHY. LOST 3 BROTHER LAST YEAR 2019. SOCIAL HISTORY GENERAL: TOBACCO USE ARE YOU A:NONSMOKER LATEX QUESTIONNAIRE LATEX ALLERGY : HAVE YOU EVER DEVELOPED ANY TYPE OF REACTION AFTER HANDLING LATEX PRODUCTS SUCH RUBBER GLOVES, CONDOMS, DIAPHRAGMS, BALLOONS, SOCKS, OR UNDERWEAR?YES TAPE LATEX ALLERGY : HAVE YOU EVER DEVELOPED ANY TYPE OF REACTION DURING OR AFTER DENTAL APPOINTMENT, VAGINAL/RECTAL EXAMINATION, SURGICAL PROCEDURE, OR ANY OTHER EXPOSURE?NO LATEX RISK : HAVE YOU EVER HAD ANY DIFFICULTY BREATHING OR HIVES AFTER EATING OR HANDLING ANY FRUITS, OR VEGETABLES; SUCH KIWI, BANANAS, STONE FRUITS, OR CHESTNUTSNO LATEX RISK : DO YOU HAVE A PREVIOUS PERSONAL HISTORY OF MORE THAN NINE SURGERIES, SPINA BIFIDA, OR REPEATED CATHERIZATIONS? YES - PLEASE INDICATE : > 9 SURGERIES LATEX RISK : ARE YOU FREQUENTLY EXPOSED TO LATEX PRODUCTS IN YOUR OCCUPATION?NO DATE ASKED : 06/17/2020 ALCOHOL USE: YES, ONCE A YEAR. ALCOHOL SCREENING DID YOU HAVE A DRINK CONTAINING ALCOHOL IN THE PAST YEAR?YES HOW OFTEN DID YOU HAVE SIX OR MORE DRINKS ON ONE OCCASION IN THE PAST YEAR?NEVER (0 POINTS) HOW MANY DRINKS DID YOU HAVE ON A TYPICAL DAY WHEN YOU WERE DRINKING IN THE PAST YEAR?1 OR 2 (0 POINTS) HOW OFTEN DID YOU HAVE A DRINK CONTAINING ALCOHOL IN THE PAST YEAR?MONTHLY OR LESS (1 POINT) POINTS1 INTERPRETATIONNEGATIVE CAFFEINE CAFFEINE USE?YES HOW OFTEN AND HOW MUCH? 3/DAY LANGUAGE LANGUAGES SPOKEN:KHMER LEARNING BARRIERS / SPECIAL NEEDS BARRIERS TO LEARNING?NO HEARING IMPAIRED?YES :HEARING AIDES DONT HEAR THEM VISION IMPAIRED?YES :CORRECTIVE LENSES COGNITIVELY IMPAIRED?NO READINESS TO LEARN?YES LEARNING PREFERENCES?YES :HANDOUTS, DEMONSTRATION/VERBAL INSTRUCTION LEARNING CAPABILITIES PRESENT?YES EMOTIONAL BARRIERS?NO SPECIAL DEVICES?NO FINGER BUFF SEWER NEEDED?NO HOSPITALIZATION/MAJOR DIAGNOSTIC PROCEDURE SURGERY / CHILDBIRTH REVIEW OF SYSTEMS CONSTITUTIONAL: ANY RECENT FEVER NO . CHILLS NO . WEIGHT CHANGE OF UNKNOWN REASONS NO . MUSCULOSKELETAL: ANY UNUSUAL JOINT PAIN OR SWELLING NOT MENTIONED NO . SYSTEMIC LUPUS NO . ANY NEUROMUSCULAR DISORDER NOT MENTIONED NO . LYME DISEASE NO . GASTROENTEROLOGY: ANY NEW CHANGE IN BOWEL CONTROL? NO . HISTORY OF LIVER DISORDER NOT MENTIONED NO . HISTORY OF UNUSUAL ABDOMINAL PAIN OR CRAMPING NOT MENTIONED NO . NO CONSTIPATION. GENITOURINARY: ANY NEW CHANGE IN BLADDER CONTROL? NO . ANY RENAL/KIDNEY CONDITON NOT MENTIONED NO . NEUROLOGY: HISTORY OF TBI NOT MENTIONED NO . OTHER NEW NUMBNESS OR PAIN PATTERNS NOT MENTIONED NO . NEW ONSET DIZZINESS OR NEUROLOGICAL CHANGES NOT MENTIONED NO . HISTORY OF SEVERE HEADACHES NOT MENTIONED NO . HISTORY OF STROKE OR NEUROLOGICAL DISORDER NOT MENTIONED NO . CARDIOLOGY: HEART SURGERY NO . CONGESTIVE HEART FAILURE/FLUID OVERLOAD NOT MENTIONED NO . HISTORY OF CHEST PAIN,IRREGULAR HEART BEAT NOT MENTIONED NO . RESPIRATORY: SHORTNESS OF BREATH ON EXERTION, WHEEZES, UNUSUAL COUGH NOT MENTIONED NO . ENDOCRINOLOGY: ADRENAL GLAND OR THYROID DISORDERS NOT MENTIONED NO . UNUSUAL URINATION, DIZZINESS OR LETHARGY NOT MENTIONED NO . VITAL SIGNS WT 202.2 LBS, HT 62 IN, BMI 36.98 INDEX, BP 128/74 MM HG, HR 85 /MIN, RR 18 /MIN, TEMP 97.7 F, OXYGEN SAT % 93%, SAFE IN ENV? (Y/N) YES, NA INITIALS AW 1310T.FIDEL MATHUR. EXAMINATION GENERAL EXAMINATION: GENERALNO ACUTE DISTRESS, WELL NOURISHED AND HYDRATED. PSYCHAPPROPRIATE MOOD AND AFFECT . LUNGS:CLEAR TO AUSCULTATION BILATERALLY, NO WHEEZES, RHONCHI, RALES. HEART:NO MURMURS, REGULAR RATE AND RHYTHM. ASSESSMENTS CHRONIC MIGRAINE W/O AURA W/O STATUS MIGRAINOSUS, NOT INTRACTABLE - G43.709 (PRIMARY) TREATMENT CHRONIC MIGRAINE W/O AURA W/O STATUS MIGRAINOSUS, NOT INTRACTABLE NOTES: GIVEN PRESENTING SYMPTOMS AND RESULTS OF PHYSICAL EXAMINATION RECOMMEND BOTOX INJECTIONS FOR HER MIGRAINE HEADACHES WITH POSTPROCEDURAL FOLLOW-UP. PATIENT HAS EXPRESSED UNDERSTANDING OF AND WAS IN AGREEMENT WITH TREATMENT PLAN. GIVEN TIME TO ASK QUESTIONS AND EXPRESS CONCERNS. PRINTED AND REVIEWED PRE PROCEDURE TEACHING, PATIENT VERBALIZED UNDERSTANDING AARON MATHUR . PROCEDURE CODES [id number] ESTABILISHED PATIENT [facility] CHARGE DISPOSITION & COMMUNICATION FOLLOW UP POST PROCEDURE (REASON: BOTOX INJECTIONS TO THE HEAD, NECK AND SHOULDER AREAS) ELECTRONICALLY SIGNED BY INA JOE ON 06/18/2020 AT 08:47 AM EDT DISCLAIMER : THIS IS A VISIT SUMMARY EXTRACTED FROM THE [employer] CHART. IT IS NOT A COPY OF THE [employer] PROGRESS NOTE. GALINA
== END ==
LOC: M PAIN 13:00
PROVIDERS: ATTEND Family Medicine
DX: G43.709 Chronic migraine without aura, not intractable, without status migrainosus (principal); I10 Essential (primary) hypertension; G47.30 Sleep apnea, unspecified; E78.00 Pure hypercholesterolemia, unspecified; M79.7 Fibromyalgia; I25.2 Old myocardial infarction; H53.9 Unspecified visual disturbance; Z79.891 Long term (current) use of opiate analgesic; Z79.02 Long term (current) use of antithrombotics/antiplatelets; Z79.82 Long term (current) use of aspirin; Z79.899 Other long term (current) drug therapy; Z88.5 Allergy status to narcotic agent; Z88.8 Allergy status to other drugs, medicaments and biological substances

== ENCOUNTER → 2020-06-17 | Outpatient (CLI) | payer MEDICARE, BC ==
[~2020-06-17] MED LIST changes: +GABA-283 PO; -GABA-845 PO
== END ==
LOC: M LABSMTC 11:28
PROVIDERS: ATTEND Internal Medicine Cardiovascular Disease
DX: Z11.52 Encounter for screening for COVID-19 (principal)
CPT/HCPCS: G0463; U0003

== ENCOUNTER → 2020-07-10 | Outpatient (CLI) | payer MEDICARE, BC | LOC: M LABSMTC 11:15 | PROVIDERS: ATTEND Anesthesiology | DX: Z01.812 Encounter for preprocedural laboratory examination (principal); Z20.822 Contact with and (suspected) exposure to COVID-19 ==

== ENCOUNTER → 2020-07-15 | Outpatient (CLI) | payer MEDICARE, BC ==
[~2020-07-15] MED LIST changes: +BOTOX THERAPEUTIC 100 UNIT VIAL (J0585 PER 1 UNIT) IM ONE
--- NOTE | 2020-07-16 00:50 | ECWPNPC ---
PATIENT NAME: MADYSON TRAORE : 1955 GENDER: FEMALE VISIT DATE: 07/15/2020 DISCHARGE DATE: 07/15/20 1212 VISIT LOCKED DATE TIME: PHYSICIAN: KENA OWUSU MD RESOURCE: KENA OWUSU MD REASON FOR APPOINTMENT 1. BOTOX INJECTIONS TO THE HEAD, NECK AND SHOULDER AREAS HISTORY OF PRESENT ILLNESS GENERAL: -. FALL RISK SCREENING: SCREENING : ONE FALL REPORTED IN THE LAST YEAR WITHOUT INJURY. PAIN SCREENING: PATIENT HAS A COMPLAINT OF ACUTE OR CHRONIC PAIN :YES LOCATION OF PAIN:FACE, HEAD INTENSITY OF PAIN (SCALE OF 1 TO 10):5 WHAT DOES YOUR PAIN FEEL LIKE:THROBBING DURATION:CONTINOUS PAIN IS INCREASED BY:ACTIVITIES PAIN IS DECREASED BY: NOTHING NURSING NOTE: -. PAIN CENTER INTAKE QUESTIONS: DO YOU HAVE A HISTORY OF MRSA? :NO DO YOU TAKE A BLOOD THINNERS? :YES PLAVIX FOR A HEART CONDITION DO YOU HAVE ANY BLEEDING DISORDERS? :NO ANY NEW NUMBNESS OR WEAKNESS IN YOUR LEGS OR ARMS? :NO ANY PACEMAKER,DEFIBRILLATOR, OR DORSAL COLUMN STIMULATOR? :YES DCS DO YOU HAVE ANY RASHES OR OPEN SORES? :NO ARE YOU ALLERGIC TO IV DYE? :NO ARE YOU DIABETIC? :NO ANY NEW PROBLEMS WITH YOUR MEDICATIONS? :NO HAVE YOU RECEIVED A VACCINE IN THE PAST 30 DAYS? :NO DO YOU PLAN TO RECEIVE A VACCINE IN THE NEXT 21 DAYS? :NO DO YOU TAKE ANY IMMUNOSUPPRESSIVE MEDICATIONS? :NO ANY HISTORY OF SEIZURES? :NO ANY HISTORY OF CARDIAC ISSUES OR EVENTS? :YES MULTIPLE PA'S, LAST ONE 06/29/20 DO YOU HAVE ANY KIDNEY OR LIVER DISEASE? :NO DO YOU HAVE SLEEP APNEA? :YES DO YOU WEAR A CPAP?YES ANY RECENT HEAD INJURY? :NO DO YOU HAVE ANY NEW INFECTIONS? :NO IS THERE A CHANCE YOU COULD BE ? :NO ARE YOU BREAST FEEDING? :NO WHEN DID YOU LAST EAT? : -07/14/20 @ 1900 WHEN DID YOU LAST DRINK? : -07/15/20@ 0600 WHAT DID YOU LAST DRINK? : - NAME OF PERSON DRIVING YOU HOME? : DO YOU HAVE ANY OTHER QUESTIONS OR CONCERNS? : - CURRENT MEDICATIONS TAKING BISOPROLOL FUMARATE 10 MG TABLET 1 TABLET ORALLY ONCE A DAY TAKING ISOSORBIDE MONONITRATE ER 30 MG TABLET EXTENDED RELEASE 24 HOUR 1 TABLET IN THE MORNING ORALLY ONCE A DAY TAKING PLAVIX 75 MG TABLET 1 TABLET ORALLY ONCE A DAY TAKING ASPIR-81 TAKING RESTASIS 0.05 % EMULSION 1 DROP INTO AFFECTED EYE OPHTHALMIC TWICE A DAY TAKING ACETAMINOPHEN 500 MG TABLET 1 TABLET NEEDED ORALLY EVERY 6 HRS TAKING MAY USE CPAP BEFORE BEDTIME TAKING ZOLOFT 50 MG TABLET 1 TABLET ORALLY ONCE A DAY TAKING BACLOFEN 10 MG TABLET 1 TABLET NEEDED ORALLY TWICE A DAY TAKING LIDODERM 5 % PATCH 1 PATCH REMOVE AFTER 12 HOURS EXTERNALLY ONCE A DAY TAKING BOTOX 200 UNIT SOLUTION RECONSTITUTED DIRECTED INJECTION TAKING TOPIRAMATE 100 MG TABLET 1 TABLET ORALLY TWICE DAILY TAKING SUCRALFATE 1 GM TABLET 1 TABLET ON AN EMPTY STOMACH ORALLY FOUR TIMES DAILY TAKING NORTRIPTYLINE HCL 25 MG CAPSULE 1 CAPSULE ORALLY ONCE A DAY TAKING MONTELUKAST SODIUM 10 MG TABLET 1 TABLET ORALLY ONCE A DAY TAKING ALBUTEROL SULFATE HFA 108 (90 BASE) MCG/ACT AEROSOL SOLUTION 1 PUFF NEEDED INHALATION EVERY 4 HRS TAKING PANTOPRAZOLE SODIUM 40 MG TABLET DELAYED RELEASE 1 TABLET ORALLY TWICE DAILY TAKING LISINOPRIL 20 MG TABLET 1 TABLET ORALLY ONCE A DAY TAKING ADVAIR HFA 230-21 MCG/ACT AEROSOL 2 PUFFS INHALATION TWICE A DAY TAKING SERTRALINE HCL 50 MG TABLET 1 TABLET ORALLY ONCE A DAY TAKING TRAZODONE HCL 50 MG TABLET 1 TAB ORALLY THREE TIMES DAILY NEEDED TAKING ATORVASTATIN CALCIUM 80 MG TABLET 1 TABLET ORALLY ONCE A DAY TAKING GABAPENTIN 600 MG TABLET 1 TABLET ORALLY EVERY EVENING TAKING FLUTICASONE PROPIONATE 50 MCG/ACT SUSPENSION 1 SPRAY IN EACH NOSTRIL NASALLY TWICE A DAY TAKING SPIRIVA RESPIMAT 1.25 MCG/ACT AEROSOL SOLUTION 2 PUFFS INHALATION ONCE A DAY TAKING BACLOFEN 10 MG TABLET 1 TABLET WITH FOOD OR MILK ORALLY TWICE DAILY TAKING GABAPENTIN 400 MG CAPSULE 1 CAPSULE ORALLY EVERY MORNING TAKING MULTIVITAMIN - TABLET 1 TABLET ORALLY ONCE A DAY TAKING CALCIUM 600 MG TABLET 1 TABLET WITH MEALS ORALLY TWICE A DAY TAKING OXYCODONE-ACETAMINOPHEN 5-325 MG TABLET 1 TABLET NEEDED ORALLY EVERY 6 HRS NOT-TAKING RESTASIS 0.05 % EMULSION 1 DROP INTO AFFECTED EYE OPHTHALMIC TWICE A DAY NOT-TAKING BOTOX 100 UNIT SOLUTION RECONSTITUTED FOR IM INJECTION AT THE HEAD, NECK AND SHOULDER MUSCLES ICD G43.709 BOTOX APPOINTMENT ON 07/15/2020 AT 10:40 AM NOT-TAKING CARVEDILOL 25 MG TABLET 1 TABLET WITH FOOD ORALLY TWICE A DAY DISCONTINUED TOPIRAMATE 100 MG TABLET 1 TABLET ORALLY TWICE DAILY PAST MEDICAL HISTORY HEADACHE HYPERTENSION SLEEP APNEA HIP PAIN CHANGES IN VISION SINCE CATARACT REMOVAL HEART ATTACK HYPERCHOLESTEROLEMIA FIBROMYALGIA ALLERGIES MORPHINE SULFATE: JUMPY/JITTERY - SIDE EFFECTS DARVON: BUGGY/CRAWLING FEELING - SIDE EFFECTS DARVOCET-N 100: BUGGY/CRAWLING FEELING - SIDE EFFECTS LYRICA: VISION PROBLEMS - SIDE EFFECTS ADHESIVE BANDAGES PLASTIC FAMILY HISTORY FATHER: 65 YRS MOTHER: 62 YRS SIBLINGS: ALIVE, SISTER- RHEUMATOID ARTHRITIS SON(S): ALIVE 5 BROTHER(S) , 2 SISTER(S) - HEALTHY. 2 SON(S) - HEALTHY. LOST 3 BROTHER LAST YEAR 2019. SOCIAL HISTORY GENERAL: TOBACCO USE ARE YOU A:NONSMOKER LATEX QUESTIONNAIRE LATEX ALLERGY : HAVE YOU EVER DEVELOPED ANY TYPE OF REACTION AFTER HANDLING LATEX PRODUCTS SUCH RUBBER GLOVES, CONDOMS, DIAPHRAGMS, BALLOONS, SOCKS, OR UNDERWEAR?YES TAPE LATEX ALLERGY : HAVE YOU EVER DEVELOPED ANY TYPE OF REACTION DURING OR AFTER DENTAL APPOINTMENT, VAGINAL/RECTAL EXAMINATION, SURGICAL PROCEDURE, OR ANY OTHER EXPOSURE?NO DATE ASKED : 06/17/2020 LATEX RISK : HAVE YOU EVER HAD ANY DIFFICULTY BREATHING OR HIVES AFTER EATING OR HANDLING ANY FRUITS, OR VEGETABLES; SUCH KIWI, BANANAS, STONE FRUITS, OR CHESTNUTSNO LATEX RISK : DO YOU HAVE A PREVIOUS PERSONAL HISTORY OF MORE THAN NINE SURGERIES, SPINA BIFIDA, OR REPEATED CATHERIZATIONS? YES - PLEASE INDICATE : > 9 SURGERIES LATEX RISK : ARE YOU FREQUENTLY EXPOSED TO LATEX PRODUCTS IN YOUR OCCUPATION?NO ALCOHOL USE: YES, ONCE A YEAR. ALCOHOL SCREENING DID YOU HAVE A DRINK CONTAINING ALCOHOL IN THE PAST YEAR?YES HOW OFTEN DID YOU HAVE SIX OR MORE DRINKS ON ONE OCCASION IN THE PAST YEAR?NEVER (0 POINTS) HOW MANY DRINKS DID YOU HAVE ON A TYPICAL DAY WHEN YOU WERE DRINKING IN THE PAST YEAR?1 OR 2 (0 POINTS) HOW OFTEN DID YOU HAVE A DRINK CONTAINING ALCOHOL IN THE PAST YEAR?MONTHLY OR LESS (1 POINT) POINTS1 INTERPRETATIONNEGATIVE CAFFEINE CAFFEINE USE?YES HOW OFTEN AND HOW MUCH? 3/DAY LANGUAGE LANGUAGES SPOKEN:BELARUSIAN LEARNING BARRIERS / SPECIAL NEEDS BARRIERS TO LEARNING?NO HEARING IMPAIRED?YES VISION IMPAIRED?YES COGNITIVELY IMPAIRED?NO :HEARING AIDES DONT HEAR THEM :CORRECTIVE LENSES READINESS TO LEARN?YES LEARNING PREFERENCES?YES :HANDOUTS, DEMONSTRATION/VERBAL INSTRUCTION LEARNING CAPABILITIES PRESENT?YES EMOTIONAL BARRIERS?NO SPECIAL DEVICES?NO BRUSH MAKER MACHINE NEEDED?NO VITAL SIGNS WT 199 LBS, HT 62 IN, BMI 36.39 INDEX, BP 147/84 MM HG, HR 63 /MIN, RR 18 /MIN, TEMP 95.9 F, OXYGEN SAT % 94%, SAFE IN ENV? (Y/N) Y, NA INITIALS TN 10:44, REVIEWED BY: KYLEE. EXAMINATION GENERAL: THE PATIENT IS ALERT, ORIENTED TIMES THREE AND COOPERATIVE. LUNGS ARE CLEAR TO AUSCULTATION. HEART SHOWS REGULAR RHYTHM, NO MURMURS AND NO GALLOPS. ASSESSMENTS CHRONIC MIGRAINE - G43.709 (PRIMARY) TREATMENT CHRONIC MIGRAINE COMPLETION OF PROCEDURAL VISIT WHEN MEETS CRITERIAANGELLINNEA 07/15/2020 12:16:43 PM > CRITERIA MET @1152 OTHERS CONTINUE BISOPROLOL FUMARATE TABLET, 10 MG, 1 TABLET, ORALLY, ONCE A DAY NOTES: PAT DONE 07/14/20 EM. PROCEDURES PAIN NURSING RECORD PROCEDURE IN ROOM 1110, PHYSICIAN IN ROOM 1140, START 1141, FINISH 1151, PHYSICIAN OUT OF ROOM 1151, OUT OF ROOM 1205, ECG N/A, PATIENT SHIELDED N/A, SAFETY STRAP N/A, PREP ALCOHOL DR. OWUSU, DRESSING N/A LOC: 1. ALERT, [facility]IENTED, [facility] 1140 > RESP: 1. REGULAR, NO [facility]A, [facility] COLOR: 1. PINK, [facility]/15/2020 1140 SKIN: 1. WARM, DRY, [facility] 1140 POSITION: 2. SUPINE, 5. SITTING, [facility] 07/15/20 1140 VITALS: EXIT VITALS HR 77, 135/79, 94%, 4/10 PAIN R 14 , [facility] 1152 NOTES Adair ORTIZ RN COMPLETION OF PROCEDURE APPOINTMENT: POST PAIN 4 CHRONIC BACK PAIN, DRESSING SITE NO DRESSING, IV N/A, GAIT STEADY, TEACHING COMPLETED, PATIENT ACKNOWLEDGES UNDERSTANDING YES, PROCEDURE APPOINTMENT COMPLETED AT 1208 PN BOTOX INJECTIONS FIRST INJECTION PRE PROCEDURE DIAGNOSIS CHRONIC MIGRAINE HEADACHES POST PROCEDURE DIAGNOSIS CHRONIC MIGRAINE HEADACHES PROCEDURE BOTOX INJECTION AT THE HEAD, NECK AND SHOULDERS SURGEON DR. KENA OWUSU ORTHOTICS PROSTHETICS TECHNICIAN NONE ANESTHESIA NONE PRE PROCEDURE NOTE THE PATIENT HAS HISTORY OF CHRONIC MIGRAINE HEADACHES. I EVALUATED THE PATIENT AND REVIEWED THE CHART. I WENT OVER THE RISKS, ALTERNATIVES, AND BENEFITS ASSOCIATED WITH THIS PROCEDURE. THE PATIENT WOULD LIKE TO PROCEED AND GAVE CONSENT TO PERFORM THE PROCEDURE. THE PATIENT DENIES UNEXPLAINABLE WEIGHT LOSS, FEVER, CHILLS, OR NEW CHANGES IN URINARY OR BOWEL CONTROL. SHE EXPLAINED TO ME THAT SHE HAS BEE NRECIVING BOTOX INJECTIONS AT DR. MCKEON'S OFFICE FOR 5 YEARS. SHE WAS HAVING SEVERE HEADACHES WITH BLURRINESS AND COULD NOT FUNCTION EVERY DAY OF THE MONTH. SINCE DOING BOTOX, SHE ONLY HAS 3 TO 4 PER MONTH. THE PATIENT HAS USED THE MEDICATIONS LISTED IN THE CHART TO TREAT THE HEADACHES FOR MANY MONTHS BUT THE HEADACHES PERSIST DESCRIBED ABOVE. THE PATIENT IS COVID-19 NEGATIVE DESCRIPTION OF PROCEDURE THE PATIENT WAS BROUGHT TO THE PROCEDURE ROOM AND PLACED IN THE SUPINE POSITION. A TIMEOUT WAS PERFORMED WHERE THE CONSENTED SITE WAS VERIFIED WITH EVERYONE IN THE ROOM FOR THE PROCEDURE I USED A SOLUTION OF 5 UNITS OF BOTOX PER EACH 0.1 ML OF THE SOLUTION. I USED A 30-GAUGE NEEDLE TO INJECT THE SOLUTION AT THE SELECTED LOCATIONS. I INJECTED FIRST THE RIGHT AND LEFT PERMANENT MOLD SUPERVISOR MUSCLES. THE LANDMARK FOR BOTH INJECTIONS WAS APPROXIMATELY 1 CM ABOVE THE SUPERIOR MEDIAL EDGE OF THE EYEBROW. AFTER THESE TWO INJECTIONS, I INJECTED THE PROCERUS MUSCLE AT THE MIDLINE POINT BETWEEN THESE FIRST TWO INJECTIONS. THEN I PROCEEDED TO INJECT THE RIGHT AND LEFT FRONTALIS MUSCLE. TWO INJECTIONS WERE DONE IN EACH SIDE. THE FIRST INJECTION WAS DONE APPROXIMATELY 2 CM ABOVE THE FIRST INJECTION OF THE PERMANENT MOLD SUPERVISOR. THE SECOND INJECTION WAS DONE APPROXIMATELY 1.5 CM LATERAL TO THIS FIST INJECTION OF THE FRONTALIS OF EACH SIDE. AFTER THE INJECTIONS OVER THE FOREHEAD WERE DONE, THE PATIENT'S HEAD WAS TURNED TO THE LEFT SIDE AND WE STARTED TO WORK WITH THE RIGHT TEMPORALIS MUSCLE. FIRST INJECTION WAS DONE IN A VERTICAL LINE OF THE TRAGUS APPROXIMATELY 3 CM ABOVE THE TRAGUS. THE SECOND INJECTION WAS DONE APPROXIMATELY 2 CM ABOVE THE FIRST INJECTION. THE THIRD INJECTION WAS DONE APPROXIMATELY 1 CM FORWARD FROM THIS VERTICAL LINE CREATED AT THE LEVEL OF THE TRAGUS, SHELTER BETWEEN THESE TWO INJECTIONS. THE FOURTH INJECTION WAS DONE APPROXIMATELY 1.5 CM BACK FROM THE SECOND INJECTION TO THE TEMPORALIS IN LINE TO THE MIDPORTION OF THE EAR. THEN, WE PROCEEDED TO INJECT THE LEFT TEMPORALIS MUSCLE. WE CLEANED THE AREA WITH ALCOHOL AND PROCEEDED TO PERFORM THE SAME FOR INJECTIONS DESCRIBED ABOVE BUT IN THE LEFT TEMPORALIS MUSCLE USING THE SAME LANDMARKS. AFTER THESE INJECTIONS WERE DONE, THE PATIENT WAS SEATED. FIRST, WE STARTED TO INJECT THE LEFT AND RIGHT OCCIPITALIS MUSCLE. I INJECTED AT THE FOLLOWING PLACES IN THE RIGHT AND LEFT MUSCLE. THE FIRST INJECTION WAS DONE AT THE MIDPOINT POSITION BETWEEN THE MASTOID PROCESS AND THE INION OF THE OCCIPITAL PROTUBERANCE. THE SECOND INJECTION WAS DONE APPROXIMATELY 1.5 CM SUPERIOR AND LATERAL OF THIS POINT. THE THIRD INJECTION WAS DONE APPROXIMATELY 1.5 CM SUPERIOR AND MEDIAL TO THIS FIRST INJECTION. NEXT, I PROCEEDED TO INJECT THE RIGHT AND LEFT PARASPINAL MUSCLES. LANDMARK OF THE INJECTION WERE APPROXIMATELY: FIRST INJECTION 3 CM BELOW THE INION AND 1 CM LATERAL TO THE MIDLINE AND SECOND INJECTION AT EACH SIDE WAS DONE APPROXIMATELY 1.5 CM SUPERIOR AND LATERAL OF THE FIRST INJECTION. THE LAST GROUP OF INJECTIONS WAS DONE OVER THE RIGHT AND LEFT TRAPEZIUS MUSCLE OVER THE SHOULDERS AREA. THE FIRST INJECTION WAS DONE AT THE MIDPOINT BETWEEN THE INFLECTION POINT BETWEEN THE NECK AND SHOULDER AND THE ACROMION. THE SECOND AND THIRD INJECTIONS WERE DONE APPROXIMATELY 2.5 CM LATERAL AND MEDIAL FROM THIS FIRST INJECTION. SAME TARGETS WERE USED IN THE RIGHT AND LEFT SIDE. IN TOTAL, I INJECTED 155 UNITS OF BOTOX. THE MEDICATIONS WERE VERIFIED WITH THE NURSE. PROCEDURE WAS DONE WITHOUT EVIDENCE OF PARESTHESIA OR ANY COMPLICATIONS. THE PATIENT TOLERATED THE PROCEDURE VERY WELL. ESTIMATED BLOOD LOSS WAS LESS THAN 5 ML. THE PATIENT WAS SENT TO THE RECOVERY ROOM FOR OBSERVATIONS. INJECTIONS WERE DONE AFTER CLEANING WITH ALCOHOL, USING ASEPTIC TECHNIQUES POST PROCEDURE NOTE THE PROCEDURE DONE WAS DISCUSSED WITH THE PATIENT. THE PATIENT WILL BE SEEN IN A FOLLOW UP IN THE NEXT FEW WEEKS. I AM LOOKING FOR LONG LASTING PAIN RELIEF FOR THE PATIENT WITH THIS INTERVENTION. INSTRUCTIONS WERE GIVEN, QUESTIONS WERE ANSWERED, AND THE PATIENT EXPRESSED UNDERSTANDING AND AGREES WITH THE PLAN. I, BUDDY BAIRD, DOCUMENTED THE ABOVE INFORMATION ACTING A SCRIBE FOR DR. OWUSU. I HAVE REVIEWED THE ABOVE DOCUMENT, WRITTEN BY QUAN BAIRD, BURR BENCH OPERATOR, AND I VERIFY THAT IT IS ACCURATE PROCEDURE CODES 15374 CHEMODENERV MUSC MIGRAINE DISPOSITION & COMMUNICATION FOLLOW UP FOLLOW UP WITH EXHAUST MACHINE OPERATOR (REASON: POST BOTOX INJECTIONS TO HEAD, NECK AND SHOULDER AREA) ELECTRONICALLY SIGNED BY KENA OWUSU MD, MD ON 07/15/2020 AT 05:37 PM EDT DISCLAIMER : THIS IS A VISIT SUMMARY EXTRACTED FROM THE [employer] CHART. IT IS NOT A COPY OF THE [facility] PROGRESS NOTE. MTDD
== END ==
LOC: M PAIN 10:40
PROVIDERS: ATTEND Anesthesiology
DX: G43.709 Chronic migraine without aura, not intractable, without status migrainosus (principal); I10 Essential (primary) hypertension; G47.30 Sleep apnea, unspecified; E78.00 Pure hypercholesterolemia, unspecified; M79.7 Fibromyalgia; I25.2 Old myocardial infarction; Z98.49 Cataract extraction status, unspecified eye; Z79.02 Long term (current) use of antithrombotics/antiplatelets; Z79.82 Long term (current) use of aspirin; Z79.891 Long term (current) use of opiate analgesic; Z79.899 Other long term (current) drug therapy; Z88.5 Allergy status to narcotic agent; Z88.8 Allergy status to other drugs, medicaments and biological substances; Z91.048 Other nonmedicinal substance allergy status
CPT/HCPCS: 64615; J0585

== ENCOUNTER → 2020-08-16 | Outpatient (CLI) | payer MEDICARE, BC ==
[~2020-08-16] MED LIST changes: -BOTOX THERAPEUTIC 100 UNIT VIAL (J0585 PER 1 UNIT) IM ONE
--- NOTE | 2020-08-20 03:29 | ECWPNPC ---
PATIENT NAME: MADYSON TRAORE : 1955 GENDER: FEMALE VISIT DATE: 08/16/2020 DISCHARGE DATE: 08/16/20 1125 VISIT LOCKED DATE TIME: PHYSICIAN: CATRINA WILLS RESOURCE: CATRINA WILLS REASON FOR APPOINTMENT 1. POST BOTOX INJECTIONS TO HEAD, NECK AND SHOULDER AREA HISTORY OF PRESENT ILLNESS GENERAL: HPI 65-YEAR-OLD FEMALE IN FOR POST BOTOX INJECTION FOLLOW-UP. PATIENT FEELS THE PROCEDURE WAS SUCCESSFUL STATING THAT SHE HAS EXPERIENCED A SIGNIFICANT DECREASE IN THE STRENGTH OF HER MIGRAINES.. -. FALL RISK SCREENING: SCREENING ONE FALL REPORTED IN THE LAST YEAR WITH INJURY. PATIENT DID NOT SEEK IMMEDIATE MEDICAL TREATMENT.. PAIN SCREENING: PATIENT HAS A COMPLAINT OF ACUTE OR CHRONIC PAIN :YES LOCATION OF PAIN:HEAD, NECK, BOTH SHOULDERS INTENSITY OF PAIN (SCALE OF 1 TO 10):5 WHAT DOES YOUR PAIN FEEL LIKE:ACHING, CONTINOUS, OTHER PRESSURE IN NOSE AREA DURATION:CONTINOUS PAIN IS INCREASED BY:ACTIVITIES, PROLONGED STANDING PAIN IS DECREASED BY:USE OF PAIN MEDICATIONS, SITTING NURSING NOTE: -. PAIN CENTER INTAKE QUESTIONS: DO YOU HAVE A HISTORY OF MRSA? :NO DO YOU TAKE A BLOOD THINNERS? :YES PLAVIX DO YOU HAVE ANY BLEEDING DISORDERS? :NO ANY NEW NUMBNESS OR WEAKNESS IN YOUR LEGS OR ARMS? :YES NUMBNESS IN LEFT LEGS ANY PACEMAKER,DEFIBRILLATOR, OR DORSAL COLUMN STIMULATOR? :YES DCS DO YOU HAVE ANY RASHES OR OPEN SORES? :NO ARE YOU ALLERGIC TO IV DYE? :NO ARE YOU DIABETIC? :NO ANY NEW PROBLEMS WITH YOUR MEDICATIONS? :NO HAVE YOU RECEIVED A VACCINE IN THE PAST 30 DAYS? :NO SECOND COVID VACCINATION 04/17/2020, AND SHINGLES VACCINATION 06/2020. DO YOU PLAN TO RECEIVE A VACCINE IN THE NEXT 21 DAYS? :NO DO YOU NEED ANY PRESCRIPTION? :NO DO YOU TAKE ANY IMMUNOSUPPRESSIVE MEDICATIONS? :NO IS THERE A CHANCE YOU COULD BE ? :NO ARE YOU BREAST FEEDING? :NO CURRENT MEDICATIONS TAKING ISOSORBIDE MONONITRATE ER 30 MG TABLET EXTENDED RELEASE 24 HOUR 1 TABLET IN THE MORNING ORALLY ONCE A DAY TAKING PLAVIX 75 MG TABLET 1 TABLET ORALLY ONCE A DAY TAKING ASPIR-81 TAKING RESTASIS 0.05 % EMULSION 1 DROP INTO AFFECTED EYE OPHTHALMIC TWICE A DAY TAKING ACETAMINOPHEN 500 MG TABLET 1 TABLET NEEDED ORALLY EVERY 6 HRS TAKING MAY USE CPAP BEFORE BEDTIME TAKING ZOLOFT 50 MG TABLET 1 TABLET ORALLY ONCE A DAY TAKING BACLOFEN 10 MG TABLET 1 TABLET NEEDED ORALLY TWICE A DAY TAKING LIDODERM 5 % PATCH 1 PATCH REMOVE AFTER 12 HOURS EXTERNALLY ONCE A DAY TAKING BOTOX 200 UNIT SOLUTION RECONSTITUTED DIRECTED INJECTION TAKING TOPIRAMATE 100 MG TABLET 1 TABLET ORALLY TWICE DAILY TAKING SUCRALFATE 1 GM TABLET 1 TABLET ON AN EMPTY STOMACH ORALLY FOUR TIMES DAILY TAKING NORTRIPTYLINE HCL 25 MG CAPSULE 1 CAPSULE ORALLY ONCE A DAY TAKING MONTELUKAST SODIUM 10 MG TABLET 1 TABLET ORALLY ONCE A DAY TAKING ALBUTEROL SULFATE HFA 108 (90 BASE) MCG/ACT AEROSOL SOLUTION 1 PUFF NEEDED INHALATION EVERY 4 HRS TAKING PANTOPRAZOLE SODIUM 40 MG TABLET DELAYED RELEASE 1 TABLET ORALLY TWICE DAILY TAKING LISINOPRIL 20 MG TABLET 1 TABLET ORALLY ONCE A DAY TAKING ADVAIR HFA 230-21 MCG/ACT AEROSOL 2 PUFFS INHALATION TWICE A DAY TAKING SERTRALINE HCL 50 MG TABLET 1 TABLET ORALLY ONCE A DAY TAKING TRAZODONE HCL 50 MG TABLET 1 TAB ORALLY THREE TIMES DAILY NEEDED TAKING ATORVASTATIN CALCIUM 80 MG TABLET 1 TABLET ORALLY ONCE A DAY TAKING GABAPENTIN 600 MG TABLET 1 TABLET ORALLY EVERY EVENING TAKING FLUTICASONE PROPIONATE 50 MCG/ACT SUSPENSION 1 SPRAY IN EACH NOSTRIL NASALLY TWICE A DAY TAKING SPIRIVA RESPIMAT 1.25 MCG/ACT AEROSOL SOLUTION 2 PUFFS INHALATION ONCE A DAY TAKING BACLOFEN 10 MG TABLET 1 TABLET WITH FOOD OR MILK ORALLY TWICE DAILY TAKING GABAPENTIN 400 MG CAPSULE 1 CAPSULE ORALLY EVERY MORNING TAKING MULTIVITAMIN - TABLET 1 TABLET ORALLY ONCE A DAY TAKING CALCIUM 600 MG TABLET 1 TABLET WITH MEALS ORALLY TWICE A DAY TAKING OXYCODONE-ACETAMINOPHEN 5-325 MG TABLET 1 TABLET NEEDED ORALLY EVERY 6 HRS TAKING BISOPROLOL FUMARATE 10 MG TABLET 1 TABLET ORALLY ONCE A DAY TAKING RESTASIS 0.05 % EMULSION 1 DROP INTO AFFECTED EYE OPHTHALMIC TWICE A DAY TAKING BOTOX 100 UNIT SOLUTION RECONSTITUTED FOR IM INJECTION AT THE HEAD, NECK AND SHOULDER MUSCLES ICD G43.709 BOTOX APPOINTMENT ON 07/15/2020 AT 10:40 AM TAKING CARVEDILOL 25 MG TABLET 1 TABLET WITH FOOD ORALLY TWICE A DAY MEDICATION LIST REVIEWED AND RECONCILED WITH THE PATIENT PAST MEDICAL HISTORY HEADACHE HYPERTENSION SLEEP APNEA HIP PAIN CHANGES IN VISION SINCE CATARACT REMOVAL HEART ATTACK HYPERCHOLESTEROLEMIA FIBROMYALGIA ALLERGIES MORPHINE SULFATE: JUMPY/JITTERY - SIDE EFFECTS DARVON: BUGGY/CRAWLING FEELING - SIDE EFFECTS DARVOCET-N 100: BUGGY/CRAWLING FEELING - SIDE EFFECTS LYRICA: VISION PROBLEMS - SIDE EFFECTS ADHESIVE BANDAGES PLASTIC SOCIAL HISTORY GENERAL: TOBACCO USE ARE YOU A:NONSMOKER LATEX QUESTIONNAIRE LATEX ALLERGY : HAVE YOU EVER DEVELOPED ANY TYPE OF REACTION AFTER HANDLING LATEX PRODUCTS SUCH RUBBER GLOVES, CONDOMS, DIAPHRAGMS, BALLOONS, SOCKS, OR UNDERWEAR?YES TAPE LATEX ALLERGY : HAVE YOU EVER DEVELOPED ANY TYPE OF REACTION DURING OR AFTER DENTAL APPOINTMENT, VAGINAL/RECTAL EXAMINATION, SURGICAL PROCEDURE, OR ANY OTHER EXPOSURE?NO LATEX RISK : HAVE YOU EVER HAD ANY DIFFICULTY BREATHING OR HIVES AFTER EATING OR HANDLING ANY FRUITS, OR VEGETABLES; SUCH KIWI, BANANAS, STONE FRUITS, OR CHESTNUTSNO LATEX RISK : DO YOU HAVE A PREVIOUS PERSONAL HISTORY OF MORE THAN NINE SURGERIES, SPINA BIFIDA, OR REPEATED CATHERIZATIONS? YES - PLEASE INDICATE : > 9 SURGERIES LATEX RISK : ARE YOU FREQUENTLY EXPOSED TO LATEX PRODUCTS IN YOUR OCCUPATION?NO DATE ASKED : 08/16/2020 ALCOHOL USE: YES, ONCE A YEAR. ALCOHOL SCREENING DID YOU HAVE A DRINK CONTAINING ALCOHOL IN THE PAST YEAR?YES HOW OFTEN DID YOU HAVE SIX OR MORE DRINKS ON ONE OCCASION IN THE PAST YEAR?NEVER (0 POINTS) HOW MANY DRINKS DID YOU HAVE ON A TYPICAL DAY WHEN YOU WERE DRINKING IN THE PAST YEAR?1 OR 2 (0 POINTS) HOW OFTEN DID YOU HAVE A DRINK CONTAINING ALCOHOL IN THE PAST YEAR?MONTHLY OR LESS (1 POINT) POINTS1 INTERPRETATIONNEGATIVE RECREATIONAL DRUG USE DRUG USE?NO CAFFEINE CAFFEINE USE?YES HOW OFTEN AND HOW MUCH? 3/DAY LANGUAGE LANGUAGES SPOKEN:BELIZEAN LEARNING BARRIERS / SPECIAL NEEDS CHANGE FROM LAST VISIT?YES BARRIERS TO LEARNING?NO HEARING IMPAIRED?YES :HEARING AIDES DONT HEAR THEM VISION IMPAIRED?YES :CORRECTIVE LENSES COGNITIVELY IMPAIRED?NO READINESS TO LEARN?YES LEARNING PREFERENCES?YES :HANDOUTS, DEMONSTRATION/VERBAL INSTRUCTION LEARNING CAPABILITIES PRESENT?YES EMOTIONAL BARRIERS?NO SPECIAL DEVICES?NO HOUSEKEEPING DIRECTOR NEEDED?NO REVIEW OF SYSTEMS CONSTITUTIONAL: ANY RECENT FEVER NO . CHILLS NO . WEIGHT CHANGE OF UNKNOWN REASONS NO . GASTROENTEROLOGY: NEW UNEXPLAINABLE CHANGES IN BOWEL CONTROL NO . CONSTIPATION NO . GENITOURINARY: ANY NEW CHANGE IN BLADDER CONTROL? NO . NEUROLOGY: NEW ONSET DIZZINESS OR NEUROLOGICAL CHANGES NOT MENTIONED NO . NEW NUMBNESS OR PAIN PATTERNS NOT MENTIONED AND PERTINENT TO TODAY'S VISIT NO . CARDIOLOGY: NEW CHEST PRESSURE NO . PATIENT DENIES NO . RESPIRATORY: UNEXPLAINABLE COUGH NO . NEW SHORTNESS OF BREATH NO . VITAL SIGNS WT 199.6 LBS, HT 62 IN, BMI 36.50 INDEX, BP 171/83 MM HG, REPEAT BP 122/78 MANUAL, HR 83 /MIN, RR 18 /MIN, TEMP 98.6 F, OXYGEN SAT % 95%, SAFE IN ENV? (Y/N) YES, NA INITIALS SC 10:59, REVIEWED BY: SEE BP RETAKEN. 122/78. ADRIANA ANDERSON MA. EXAMINATION GENERAL EXAMINATION: GENERALNO ACUTE DISTRESS, WELL NOURISHED AND HYDRATED. PSYCHAPPROPRIATE MOOD AND AFFECT . LUNGS:CLEAR TO AUSCULTATION BILATERALLY, NO WHEEZES, RHONCHI, RALES. HEART:NO MURMURS, REGULAR RATE AND RHYTHM. ASSESSMENTS OTHER CHRONIC PAIN - G89.29 (PRIMARY) CHRONIC MIGRAINE W/O AURA W/O STATUS MIGRAINOSUS, NOT INTRACTABLE - G43.709, RISK: (NULL) TREATMENT OTHER CHRONIC PAIN PAIN PROCEDURE LOGDATE OF [id number]:BOTOX INJECTIONS TO THE HEAD, NECK AND SHOULDER AREASAMOUNT OF PRE SEDATE0/0RESULT:SIGNIFICANT DECREASE IN THE STRENGTH OF HER MIGRAINES. NOTES: 65-YEAR-OLD FEMALE IN FOR POST BOTOX INJECTION FOLLOW-UP. GIVEN PRESENTING SYMPTOMS RECOMMEND FOLLOW-UP IN 3 MONTHS. PATIENT HAS EXPRESSED UNDERSTANDING OF AND WAS IN AGREEMENT WITH TREATMENT PLAN. GIVEN TIME TO ASK QUESTIONS AND EXPRESS CONCERNS. PROCEDURE CODES FA211 ESTABILISHED PATIENT [facility] FACILITY CHARGE DISPOSITION & COMMUNICATION FOLLOW UP 3 MONTHS (REASON: MIGRAINE ) ELECTRONICALLY SIGNED BY INA JOE ON 08/19/2020 AT 07:56 AM EDT DISCLAIMER : THIS IS A VISIT SUMMARY EXTRACTED FROM THE [employer] CHART. IT IS NOT A COPY OF THE [employer] PROGRESS NOTE. GALINA
== END ==
LOC: M PAIN 10:45
PROVIDERS: ATTEND Family Medicine
DX: G89.29 Other chronic pain (principal); G43.709 Chronic migraine without aura, not intractable, without status migrainosus; I10 Essential (primary) hypertension; G47.30 Sleep apnea, unspecified; I25.2 Old myocardial infarction; E78.00 Pure hypercholesterolemia, unspecified; M79.7 Fibromyalgia; Z79.02 Long term (current) use of antithrombotics/antiplatelets; Z79.82 Long term (current) use of aspirin; Z79.891 Long term (current) use of opiate analgesic; Z79.899 Other long term (current) drug therapy; Z88.5 Allergy status to narcotic agent; Z88.8 Allergy status to other drugs, medicaments and biological substances; Z91.048 Other nonmedicinal substance allergy status

== ENCOUNTER → 2020-08-31 | Outpatient (CLI) | payer MEDICARE, BC ==
--- NOTE | 2020-08-31 12:17 | REP ---
INDICATION: RIGHT FOOT INJURY. COMPARISON: None. TECHNIQUE: Four views FINDINGS: The joint spaces are symmetric and relatively well maintained. There is no evidence of acute fracture or destructive osseous lesion. There are tiny plantar and retrocalcaneal heel spurs IMPRESSION: Chronic changes <Electronically signed by William Smith > 08/31/20 0901
== END ==
LOC: M RAD 11:06
PROVIDERS: ATTEND Physician Assistant Medical
DX: M77.31 Calcaneal spur, right foot (principal)

== ENCOUNTER → 2020-09-30 | Outpatient (CLI) | payer MEDICARE, BC ==
[~2020-09-30] MED LIST changes: -LISI2.5T2 PO; +LISI2.5T9 PO
== END ==
LOC: M PAIN 10:00
PROVIDERS: ATTEND Nurse Practitioner Family
DX: G43.709 Chronic migraine without aura, not intractable, without status migrainosus (principal); I10 Essential (primary) hypertension; G47.30 Sleep apnea, unspecified; E78.00 Pure hypercholesterolemia, unspecified; I25.2 Old myocardial infarction; M79.7 Fibromyalgia; Z98.41 Cataract extraction status, right eye; Z98.42 Cataract extraction status, left eye; Z79.891 Long term (current) use of opiate analgesic; Z79.899 Other long term (current) drug therapy; Z79.02 Long term (current) use of antithrombotics/antiplatelets; Z88.5 Allergy status to narcotic agent; Z88.8 Allergy status to other drugs, medicaments and biological substances; Z91.048 Other nonmedicinal substance allergy status

== ENCOUNTER → 2020-10-04 | Outpatient (REF) | payer MEDICARE, BC | LOC: M LAB REF 16:59 | PROVIDERS: ATTEND Family Medicine | DX: N39.0 Urinary tract infection, site not specified (principal); M54.5 Low back pain; D72.829 Elevated white blood cell count, unspecified ==

== ENCOUNTER 2020-11-01 14:50 | Emergency (ER) | payer MEDICARE, BC ==
[~2020-11-01] VITALS: Ht 154.9 cm; Wt 91.6 kg
--- NOTE | 2020-11-01 15:37 | REPVR ---
PROCEDURE INFORMATION: Exam: CT Head Without Contrast Exam date and time: 11/01/2020 3:20 PM Age: 65 years old Clinical indication: Injury or trauma; Fall; Blunt trauma (contusions or hematomas); Additional info: Fall, hit head, on blood thinner TECHNIQUE: Imaging protocol: Computed tomography of the head without contrast. Radiation optimization: All CT scans at this facility use at least one of these dose optimization techniques: automated exposure control; mA and/or kV adjustment per patient size (includes targeted exams where dose is matched to clinical indication); or iterative reconstruction. COMPARISON: CT Head without contrast 04/02/2017 6:58 PM FINDINGS: Brain: Normal. No hemorrhage. Unremarkable white matter. No mass effect. Cerebral ventricles: No ventriculomegaly. Paranasal sinuses: Visualized sinuses are unremarkable. No fluid levels. Mastoid air cells: Visualized mastoid air cells are well aerated. Vasculature: There is moderate calcification of the carotid siphons. Bones/joints: Unremarkable. No acute fracture. Soft tissues: Unremarkable. IMPRESSION: No acute intracranial abnormality. Electronically signed by: Brennon Ireland On 11/01/2020 15:37:47 PM
--- NOTE | 2020-11-01 15:40 | REPVR ---
PROCEDURE INFORMATION: Exam: CT Cervical Spine Without Contrast Exam date and time: 11/01/2020 3:20 PM Age: 65 years old Clinical indication: Injury or trauma; Fall; Blunt trauma; Additional info: Fall, hit head, on blood thinner TECHNIQUE: Imaging protocol: Computed tomography images of the cervical spine without contrast. Radiation optimization: All CT scans at this facility use at least one of these dose optimization techniques: automated exposure control; mA and/or kV adjustment per patient size (includes targeted exams where dose is matched to clinical indication); or iterative reconstruction. COMPARISON: CT Spine,cervical w/o contrast 03/31/2019 12:31 PM FINDINGS: Bones/joints: There is an ACDF from C5-C6. There is no evidence of fracture. Discs/Spinal canal/Neural foramina: No significant disc protrusion. No severe spinal canal stenosis. No significant neural foraminal narrowing. Thyroid: The thyroid gland is normal. Lungs: Lung apices are normal. Soft tissues: Unremarkable. IMPRESSION: There is no evidence of fracture. Electronically signed by: Brennon Ireland On 11/01/2020 15:40:16 PM
[2020-11-01] MEDS ORDERED: ACETAMINOPHEN 325 MG TAB PO ONE (18:00)
--- NOTE | 2020-11-01 18:40 | REP ---
INDICATION: fall. COMPARISON: None. TECHNIQUE: Four views FINDINGS: No acute fracture or destructive osseous lesion. IMPRESSION: No acute abnormality <Electronically signed by William Smith > 11/01/20 [id number]
--- NOTE | 2020-11-01 18:41 | REP ---
INDICATION: fall COMPARISON: None TECHNIQUE: Five views FINDINGS: There is slight patellar marginal osteophytosis. The compartments are symmetric and well maintained. There is no acute fracture, dislocation, or subluxation. IMPRESSION: Mild patellar degenerative changes. <Electronically signed by iWlliam Smith > 11/01/20 [id number]
[2020-11-01 19:16] LABS: BASO # 0.1 10^3/uL (0.0-0.2); BASO % 0.7 % (0.0-1.0); EOS % 0.4 % (0.0-3.0); HEMATOCRIT 39.5 % (36.0-47.0); HEMOGLOBIN 12.8 g/dl (12.0-15.5); LYMPH # 2.4 10^3/uL (1.5-5.0); LYMPH % 23.4 % (24.0-44.0); MEAN CORPUSCULAR HEMOGLOBIN 30.3 pg (27.0-33.0); MEAN CORPUSCULAR HGB CONC 32.4 g/dl (32.0-36.5); MEAN CORPUSCULAR VOLUME 93.6 fl (80.0-96.0); MONO # 0.7 10^3/uL (0.0-0.8); MONO % 6.9 % (2.0-8.0); NEUTROPHILS % 68.2 % (36.0-66.0); PLATELET COUNT, AUTOMATED 317 10^3/uL (150-450); RED BLOOD COUNT 4.22 10^6/uL (4.00-5.40); WHITE BLOOD COUNT 10.2 10^3/uL (4.0-10.0)
[2020-11-01 19:27] LABS: INR 0.87; PROTHROMBIN TIME 12.2 SECONDS (12.7-14.5)
[2020-11-01 19:28] LABS: PARTIAL THROMBOPLASTIN TIME 25.9 SECONDS (25.9-37.0)
[2020-11-01 20:06] VITALS: BP 170/80
== END 2020-11-01 20:39 | disposition home or self-care (01) ==
LOC: M ED 14:50
DX: S09.90XA Unspecified injury of head, initial encounter (principal); S60.222A Contusion of left hand, initial encounter; S80.01XA Contusion of right knee, initial encounter; S63.602A Unspecified sprain of left thumb, initial encounter; W18.39XA Other fall on same level, initial encounter; Y92.531 Health care provider office as the place of occurrence of the external cause; N39.0 Urinary tract infection, site not specified; I10 Essential (primary) hypertension; M79.7 Fibromyalgia; I25.2 Old myocardial infarction; Z95.5 Presence of coronary angioplasty implant and graft; Z79.01 Long term (current) use of anticoagulants; Z79.899 Other long term (current) drug therapy

== ENCOUNTER → 2020-11-01 | Outpatient (REF) | payer MEDICARE, BC ==
[2020-11-01 17:27] LABS: APPEARANCE, URINE HAZY (CLEAR); BACTERIA, URINE AUTO 2+ (NEGATIVE); BILIRUBIN, URINE AUTO NEGATIVE (NEGATIVE); BLOOD, URINE BLOOD NEGATIVE (NEGATIVE); COLOR, URINE STRAW (YELLOW); GLUCOSE, URINE (UA) AUTO NEGATIVE (NEGATIVE); KETONE, URINE AUTO NEGATIVE (NEGATIVE); LEUKOCYTE ESTERASE, URINE AUTO 1+ (NEGATIVE); MUCUS, URINE SMALL (NEGATIVE); NITRITE, URINE AUTO NEGATIVE (NEGATIVE); PROTEIN, URINE AUTO NEGATIVE (NEGATIVE); RBC, URINE AUTO 1 /HPF (0-3); SPECIFIC GRAVITY URINE AUTO 1.003 (1.002-1.035); SQUAMOUS EPITHELIAL CELL UR AU 3 /HPF (0-6); UROBILINOGEN, URINE AUTO 0.2 mg/dL (0.0-2.0); WBC, URINE AUTO 4 /HPF (0-3)
== END ==
LOC: M LAB REF 17:10
PROVIDERS: ATTEND Family Medicine
DX: N39.0 Urinary tract infection, site not specified (principal)

== ENCOUNTER → 2020-11-03 | Outpatient (CLI) | payer MEDICARE, BC | LOC: M LABSMTC 10:27 | PROVIDERS: ATTEND Anesthesiology | DX: Z11.52 Encounter for screening for COVID-19 (principal); Z20.822 Contact with and (suspected) exposure to COVID-19 ==

== ENCOUNTER → 2020-11-08 | Outpatient (CLI) | payer MEDICARE, BC | LOC: M PAIN 10:40 | PROVIDERS: ATTEND Anesthesiology | DX: G43.709 Chronic migraine without aura, not intractable, without status migrainosus (principal); L03.115 Cellulitis of right lower limb; I10 Essential (primary) hypertension; G47.30 Sleep apnea, unspecified; E78.00 Pure hypercholesterolemia, unspecified; M79.7 Fibromyalgia; I25.2 Old myocardial infarction; Z88.5 Allergy status to narcotic agent; Z88.8 Allergy status to other drugs, medicaments and biological substances; Z91.048 Other nonmedicinal substance allergy status ==

== ENCOUNTER → 2020-11-11 | Outpatient (CLI) | payer MEDICARE, BC ==
[~2020-11-11] MED LIST changes: +ADVA230A INH; +ATOR80TA59 PO; +BISO10TA13 PO; +CEPH500C PO; +DOXY-350 PO; +ISOS1TAB35 PO; +ISOVUE-370 76% 100ML VIAL ONE; +LIDO5DIS41 TD; +LISI20TA33 PO; +OYST500T25 PO; +REST0.05 OU; +TRAZ-257 PO
--- NOTE | 2020-11-11 17:06 | REP ---
INDICATION: CONTUSION OF RIGHT KNEE, SUBSEQUENT ENCOUNTER. COMPARISON: None. TECHNIQUE: Right {lower extremity duplex venous scanning is performed from the groin to the ankle level. FINDINGS: The deep veins are anechoic and fully compressible from the groin to the popliteal fossa in the right lower extremity. Color flow imaging is homogeneous. Spectral Doppler interrogation demonstrates intact respiratory variation in flow and normal manual augmentation of flow. There is no evidence of deep vein thrombosis above the knee. The right calf veins could not be seen due to edema. There is a fairly large prepatellar or peripatellar fluid collection anteriorly. This measures 6.7 x 1.4 x 7.7 cm. Hypoechoic fluid is seen within it. This may be post traumatic prepatellar bursitis or hematoma in the soft tissues. Doppler interrogation of the contralateral common femoral vein shows normal symmetric respiratory phasicity. IMPRESSION: No evidence of DVT in the right lower extremity femoropopliteal veins. No DVT in the visible portions of the calf veins. Prepatellar fluid collection, bursal versus hematoma. <Electronically signed by Dejon Milton > 11/11/20 [id number]
--- NOTE | 2020-11-11 17:57 | REP ---
INDICATION: CONTUSION OF RIGHT KNEE, SUBSEQUENT ENCOUNTER. COMPARISON: None. TECHNIQUE: CT right knee in the axial plane following the intravenous administration of 100 cc of Isovue 370. Sagittal and coronal reconstruction images performed. FINDINGS: There is no acute fracture or dislocation. No intrinsic osseous pathology is seen. There is a prepatellar hematoma measuring 7.7 x 2.0 x 7.4 cm. Venous varicosities are seen superficially medially Z. six there is mild diffuse soft tissue edema circumferentially. No enhancing mass is seen. IMPRESSION: No fracture or dislocation. Prepatellar hematoma. <Electronically signed by Zhou Diaz > 11/11/20 [id number]
== END ==
LOC: M RAD 16:06
PROVIDERS: ATTEND Physician Assistant
DX: M86.9 Osteomyelitis, unspecified (principal); S80.01XD Contusion of right knee, subsequent encounter; Y92.9 Unspecified place or not applicable; Y93.9 Activity, unspecified; Y99.9 Unspecified external cause status
CPT/HCPCS: 73701; 93971; Q9967

== ENCOUNTER 2020-11-12 15:36 | Observation (INO) | payer MEDICARE, BC ==
[~2020-11-12] VITALS: Ht 154.9 cm; Wt 90.3 kg
[~2020-11-12 15:36] MED LIST changes: -ADVA230A INH; -ATOR80TA59 PO; -BISO10TA13 PO; -CEPH500C PO; -DOXY-350 PO; -ISOS1TAB35 PO; -ISOVUE-370 76% 100ML VIAL ONE; -LIDO5DIS41 TD; -LISI20TA33 PO; -OYST500T25 PO; -REST0.05 OU; -TRAZ-257 PO
[2020-11-12] MEDS ORDERED: VANCOMYCIN HCL 1,750 MG in NS 250 ML IV ONE (19:15)
[2020-11-12] MEDS ORDERED: VANCOMYCIN HCL 1,000 MG, VIAL MATE ADAPTER 1 EACH in NS 250 ML IV ONE (19:30)
[2020-11-12] MEDS ORDERED: ATOR80TA59 PO (19:48)
[2020-11-12] MEDS ORDERED: TRAZ-257 PO (19:50)
[2020-11-12] MEDS ORDERED: ADVA230A INH (19:50)
[2020-11-12] MEDS ORDERED: ISOS1TAB35 PO (19:53)
[2020-11-12] MEDS ORDERED: CLOP75TA2 PO (19:53)
[2020-11-12] MEDS ORDERED: CEPH500C PO (19:53)
[2020-11-12] MEDS ORDERED: BISO10TA13 PO (19:53)
[2020-11-12] MEDS ORDERED: LIDO5DIS41 TD (19:53)
[2020-11-12] MEDS ORDERED: REST0.05 OU (19:53)
[2020-11-12] MEDS ORDERED: LISI20TA33 PO (19:54)
[2020-11-12] MEDS ORDERED: OYST500T25 PO (19:59)
[2020-11-12] MEDS ORDERED: HOME MED LIST COMPLETE! XX SCH (20:00)
[2020-11-12 20:26] LABS: BASO # 0.1 10^3/uL (0.0-0.2); BASO % 0.6 % (0.0-1.0); EOS # 0.1 10^3/uL (0.0-0.5); EOS % 1.3 % (0.0-3.0); HEMATOCRIT 38.2 % (36.0-47.0); HEMOGLOBIN 12.2 g/dl (12.0-15.5); LYMPH # 1.8 10^3/uL (1.5-5.0); MEAN CORPUSCULAR HEMOGLOBIN 30.3 pg (27.0-33.0); MEAN CORPUSCULAR HGB CONC 31.9 g/dl (32.0-36.5); MEAN CORPUSCULAR VOLUME 94.8 fl (80.0-96.0); MONO # 0.7 10^3/uL (0.0-0.8); MONO % 7.6 % (2.0-8.0); NEUTROPHILS # 6.1 10^3/uL (1.5-8.5); NEUTROPHILS % 69.2 % (36.0-66.0); PLATELET COUNT, AUTOMATED 304 10^3/uL (150-450); RED BLOOD COUNT 4.03 10^6/uL (4.00-5.40); WHITE BLOOD COUNT 8.8 10^3/uL (4.0-10.0)
[2020-11-12] MEDS ORDERED: VANCOMYCIN HCL 750 MG, VIAL MATE ADAPTER 1 EACH in NS 250 ML IV ONE (20:30)
[2020-11-12 20:48] LABS: ERYTHROCYTE SEDIMENTATION RATE 37 mm/hr (0-30)
[2020-11-12] MEDS: NORTRIPTYLINE 25 MG CAP PO SCH (21:00)
[2020-11-12 21:15] LABS: BLOOD UREA NITROGEN 6 MG/DL (7-18); C REACTIVE PROTEIN QUANTITATIV 3.05 MG/DL (0.00-0.30); CALCIUM LEVEL 7.8 MG/DL (8.8-10.2); CARBON DIOXIDE LEVEL 24 MEQ/L (21-32); CHLORIDE LEVEL 107 MEQ/L (98-107); GLOMERULAR FILTRATION RATE > 60.0 (>45); GLUCOSE, FASTING 78 MG/DL (70-100); POTASSIUM SERUM 5.9 MEQ/L (3.5-5.1); SODIUM LEVEL 138 MEQ/L (136-145)
[2020-11-13] MEDS ORDERED: RAMELTEON 8 MG TAB (ROZEREM) PO PRN (00:20)
[2020-11-13] MEDS ORDERED: ONDANSETRON 4MG/2ML VIAL IV PRN (00:20)
[2020-11-13] MEDS ORDERED: LIDOCAINE 5% (LIDODERM) PATCH TD PRN (00:20)
[2020-11-13] MEDS ORDERED: ALBUTEROL 90 MCG/ACT 8GM HFA INHALER INH PRN (00:20)
[2020-11-13] MEDS ORDERED: PERCOCET 5MG/325MG TAB PO PRN ×2 (00:20→14:00)
[2020-11-13] MEDS ORDERED: ACETAMINOPHEN TAB 650MG DOSE (2X325MG) PO PRN (00:20)
[2020-11-13 01:34] LABS: SOURCE, BODY FLUID RT KNEE; SYNOVIAL FLUID COLOR RED (COLORLESS)
[2020-11-13 02:05] VITALS: BP 164/88
--- NOTE | 2020-11-13 02:23 | HPEPDOC ---
General Date of Admission Nov 13, 2020 at 00:19 Date of Service: Nov 13, 2020 Chief Complaint The patient is a 65-year-old female admitted with a reason for visit of Cellulitis Of Right Knee. Source: Patient History of Present Illness Lianne Tuttle is a 65-year-old female with significant history of hypertension, hyperlipidemia, CAD, GERD, anxiety, chronic back pain, and OA who arrives with complaints of right knee pain. Patient reports that she fell on November 01 on her right knee. She describes she had a migraine and was walking up her front porch steps when the sunlight hit her and she at baseline has typical left lower extremity weakness from a former back surgery and she typically will have to step with her right foot first however she was distracted with the sunlight and her migraine -she stepped with her left leg and described "giving out" and landing on her right knee. She also described catching the right side of her face where she broke her glasses and has superficial bruising to her brow. Patient reports that she went to the ER and had a CAT scan done which was normal and she had abrasion to the right knee at the time. Unfortunately, over the course of the past week she was noted to have increased swelling to the right knee developed redness down towards the right lower extremity and associated moderate aching pain. Patient reports that she had seen her clinic doctor outpatient and was started on Keflex but as symptoms worsen she was recommended to come to the hospital. Patient describes increased bruising to the right lower extremity as well down towards her right foot. She reports that she is on Plavix. Patient describes s evere pain today 8 out of 10 aching and throbbing and a sensation of tightness. She reports that she could not even drive herself home yesterday because of the tightness in her foot as she tried to use the pedal. Pt denies hopkins, sinus congestion, sore throat, productive cough, sob, palpitations, chest pain, n/v/d, abdominal pain, sensory changes or syncope. CT of knee scribes hematoma 7 cm x 2 cm x 7 cm. Ortho consulted in ED and aspirated bloody fluid and sent to culture. Patient will be admitted for further evaluation management of presenting concerns. Home Medications Scheduled Atorvastatin Calcium (Atorvastatin Calcium) 80 Mg Tablet, 80 MG PO QHS, (Reported) Baclofen (Baclofen) 10 Mg Tablet, 10 MG PO BID, (Reported) Bisoprolol Fumarate (Bisoprolol Fumarate) 10 Mg Tablet, 10 MG PO DAILY, (Reported) Calcium Carbonate/Vitamin D3 (Calcium 500-Vit D3 400 Tablet) 1 Each Tablet, 1 TAB PO BID, (Reported) Cephalexin (Cephalexin) 500 Mg Capsule, 500 MG PO TID, (Reported) STARTED 11/08/20 X 10 DAYS Clopidogrel Bisulfate (Clopidogrel) 75 Mg Tablet, 75 MG PO QHS, (Reported) Cyclosporine (Restasis) 0.05% Droperette, 1 DROP OU BID, (Reported) Fluticasone Propion/Salmeterol (Advair Hfa 230-21 Mcg Inhaler) 12 Gm Hfa.aer.ad, 2 PUFF INH BID, (Reported) Fluticasone Propionate (Flonase Allergy Relief) 9.9 Ml Pioneer.susp, 50 MCG NA DAILY, (Reported) Gabapentin (Gabapentin) 400 Mg Capsule, 400 MG PO DAILY, (Reported) Gabapentin (Gabapentin) 600 Mg Tablet, 600 MG PO QHS, (Reported) Isosorbide Mononitrate (Isosorbide Mononitrate ER) 30 Mg Tab.er.24h, 30 MG PO DAILY, (Reported) Lisinopril (Lisinopril) 20 Mg Tablet, 20 MG PO QHS, (Reported) Melatonin (Melatonin) 10 Mg Capsule, 10 MG PO QHS, (Reported) Montelukast Sodium (Montelukast Sodium) 10 Mg Tablet, 10 MG PO DAILY, (Reported) Nortriptyline HCl (Nortriptyline HCl) 25 Mg Capsule, 25 MG PO QHS, (Reported) Pantoprazole Sodium (Pantoprazole Sodium) 40 Mg Tablet.dr, 40 MG PO BID, (Reported) Sertraline Hcl (Zoloft) 50 Mg Tab, 50 MG PO DAILY, (Reported) Sucralfate (Sucralfate) 1 Gm Tablet, 1 GM PO TID, (Reported) Topiramate (Topiramate) 100 Mg Tablet, 100 MG PO BID, (Reported) Trazodone HCl (Trazodone HCl) 100 Mg Tablet, 100 MG PO QHS, (Reported) Scheduled PRN Albuterol Sulfate (Proventil Hfa) 6.7 Gm Hfa.aer.ad, 2 MCG INH Q4HP PRN for SOB/WHEEZING, (Reported) Lidocaine (Lidoderm) 5% Adh..patch, 1 PATCH TD DAILY PRN for PAIN, (Reported) Apply to BACK, Remove patch after 12 hours Nitroglycerin (Nitroglycerin) 0.4 Mg Sub, for CHEST PAIN, (Reported) Oxycodone/Acetaminophen (Oxycodone-Acetaminophen 5-325) 1 Each Tablet, 1 TAB PO Q8HP PRN for PAIN, (Reported) Allergies Coded Allergies: acetaminophen (Verified Allergy, Unknown, 11/13/20) amoxicillin (Unverified Adverse Reaction, Unknown, diarrhea, 05/29/18) cefuroxime (Unverified Adverse Reaction, Unknown, diarrhea, 05/29/18) clavulanic acid (Unverified Adverse Reaction, Unknown, diarrhea, 05/29/18) morphine (Unverified Adverse Reaction, Unknown, muscle twitching, jittery, 05/29/18) pregabalin (Unverified Adverse Reaction, Unknown, blurred vision, 05/29/18) propoxyphene (Unverified Adverse Reaction, Unknown, hallucinations, dizziness, 05/29/18) Past Medical History Medical History Hyperlipidemia, hypertension, CAD, anxiety, GERD, chronic low back pain, JAY Surgical History , hysterectomy, hammertoe repair, cardiac stents, right foot surgery Family History Significant Family History: Cancer, Diabetes, Heart disease, Hypertension Social History * Smoker: Denies (Patient does report growing up in a household where her pare nts chain smoke and thus she was around 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 She reports support from family and helping to take care of him. A-FIB/CHADSVASC A-FIB History Current/History of A-Fib/PAF?: No Current PO Anticoag Therapy: No Review of Systems Constitutional: Denies: Chills, Fever, Night Sweats Eyes: Denies: Pain, Vision change ENT: Denies: Head Aches, Ear Pain, Dysphagia Skin: Denies: Rash, Lesions, Breakdown Pulmonary: Denies: Dyspnea, Cough Cardiovascular: Denies: Chest Pain, Palpitations, Orthopnea, Paroxysmal Noc. Dyspnea, Lt Headedness Gastrointestinal: Denies: Nausea, Vomiting, Abdominal Pain, Diarrhea Genitourinary: Denies: Dysuria, Frequency, Incontinence, Retention Hematologic: Reports: Bruising; Denies: Bleeding Excessively Musculoskeletal: Reports: Joint Pain; Denies: Neck Pain, Back Pain, Muscle Pain, Spasms Neurological: Denies: Weakness, Numbness, Change in speech, Confusion Psych: Reports: Mood Normal; Denies: Depression, Memory Issues Physical Examination General Exam: Positive: Alert, No Acute Distress Eye Exam: Positive: PERRLA, Conjunctiva & lids normal, EOMI; Negative: Sclera icteric ENT Exam: Positive: Atraumatic, Mucous membr. moist/pink, Pharynx Normal Neck Exam: Positive: Supple; Negative: JVD, thyromegaly Chest Exam: Positive: Clear to auscultation, Normal air movement Heart Exam: Positive: Rate Normal, Regular Rhythm, Normal S1, Normal S2; Negative: Murmurs, Rubs Telemetry: Positive: No significant arrhythmia Abdomen Exam: Positive: Normal bowel sounds, Soft; Negative: Tenderness, Hepatospenomegaly Extremity Exam: Positive: Normal pulses, Tenderness, Swelling (Right lower extremity 2 times a size of left lower extremity), Other (Right knee swelling and ecchymosis. Surrounding erythema); Negative: Clubbing, Cyanosis, Edema Skin Exam: Positive: Breakdown (Abrasion right knee), Other skin issue (+ Erythema right lower extremity above-knee down towards toes); Negative: Nl turgor and temperature, Lesion Neuro Exam: Positive: Normal Gait (Limited range of motion given swelling and pain to right knee), Normal Speech, Sensation Intact Psych Exam: Positive: Mental status NL, Mood NL, Oriented x 3 Vital Signs Vital Signs Date Time Temp Pulse Resp B/P (MAP) Pulse Ox O2 Delivery O2 Flow Rate FiO2 11/12/20 15:37 97.4 79 20 150/85 (106) 99 Room Air Laboratory Data Labs 24H Laboratory Tests 2 11/12/20 19:14: Immature Granulocyte % (Auto) 0.3, Neutrophils (%) (Auto) 69.2H, Lymphocytes (%) (Auto) 21.0L, Monocytes (%) (Auto) 7.6, Eosinophils (%) (Auto) 1.3, Basophils (%) (Auto) 0.6, Neutrophils # (Auto) 6.1, Lymphocytes # (Auto) 1.8, Monocytes # (Auto) 0.7, Eosinophils # (Auto) 0.1, Basophils # (Auto) 0.1, Nucleated Red Blood Cells % (auto) 0.0, Erythrocyte Sedimentation Rate 37H, Anion Gap 7L, Glomerular Filtration Rate > 60.0, Calcium Level 7.8L, C-Reactive Protein, Quantitative 3.05H 11/13/20 00:20: CBC/BMP Laboratory Tests 11/12/20 19:14 Microbiology Microbiology 11/13/20 Gram Stain, Received Pending 11/13/20 Wound Culture, Received Pending 11/13/20 Anaerobic Culture, Received Pending 11/12/20 Blood Culture, Received Pending 11/12/20 Blood Culture, Received Pending Assessment/Plan 1. Right knee hematoma: Concern for developing septic bursitis and associated lower extremity cellulitis. Patient afebrile, normotensive, not tachycardic and without leukocytosis. -Monitor for signs symptoms worsening infection -Empiric coverage with Vanco. Follow-up cultures for adjustment -Symptomatic/supportive care-immobilize extremity and elevate. Analgesics as needed. -A.m. labs -Appreciate orthopedic recommendations in a.m. 2. Hypertension: HTN: Monitor BP in setting of above. Continue home medications once reconciled. 3. GERD: Continue Protonix and Carafate. 4. JAY: CPAP at bedtime 5. CAD: Continue patient Plavix for cardiac stents. *Of note, patient reports that she has a back stimulator and this complicates EKG/telemetry monitoring. 6. Obesity: Complicates care 7. Chronic pain: Patient with back stimulator. -Continue as needed home pain management medications. -Encourage nonpharmacologic methods as adjunct. -Pending Ortho recommendations for PT continuation. Patient does report that she has bilateral hip pain and has been working with physical therapy prior to in [facility] [employer]. DVT prophylaxis: Inocencia score 5, heparin subcu CODE STATUS full code Disposition planning: Anticipate 2 midnight stay Plan / VTE VTE Prophylaxis Ordered?: Yes SAMANTHA FAUST NP Nov 13, 2020 00:36
[2020-11-13] MEDS: SUCRALFATE 1 GM TAB PO SCH ×4 (02:32→21:12)
[2020-11-13] MEDS: TOPIRAMATE (TopAMAX) 100 MG TAB PO SCH ×3 (02:33→21:12)
[2020-11-13] MEDS: GABAPENTIN 300 MG CAP PO SCH ×2 (02:33→21:13)
[2020-11-13] MEDS: ATORVASTATIN 20 MG TAB PO SCH ×2 (02:33→21:13)
[2020-11-13] MEDS: BACLOFEN 10 MG TAB PO SCH ×3 (02:34→21:14)
[2020-11-13] MEDS: CALCIUM/VITAMIN D 500 MG TAB PO SCH ×3 (02:34→21:13)
[2020-11-13] MEDS: traZODone 100 MG TAB PO SCH ×2 (02:35→21:12)
[2020-11-13] MEDS: PANTOPRAZOLE 40MG TAB (PROTONIX) PO SCH ×3 (02:35→21:14)
[2020-11-13] MEDS: CLOPIDOGREL 75 MG TAB PO SCH ×2 (02:35→21:13)
[2020-11-13] MEDS ORDERED: VANCOMYCIN HCL 1,000 MG, VIAL MATE ADAPTER 1 EACH in NS 250 ML IV SCH (06:00)
[2020-11-13 06:31] VITALS: BP 117/69
[2020-11-13 06:57] LABS: BASO # 0.1 10^3/uL (0.0-0.2); BASO % 0.6 % (0.0-1.0); EOS % 0.5 % (0.0-3.0); HEMATOCRIT 34.4 % (36.0-47.0); HEMOGLOBIN 11.2 g/dl (12.0-15.5); LYMPH # 1.6 10^3/uL (1.5-5.0); LYMPH % 18.9 % (24.0-44.0); MEAN CORPUSCULAR HEMOGLOBIN 30.5 pg (27.0-33.0); MEAN CORPUSCULAR HGB CONC 32.6 g/dl (32.0-36.5); MEAN CORPUSCULAR VOLUME 93.7 fl (80.0-96.0); MONO # 0.6 10^3/uL (0.0-0.8); MONO % 7.1 % (2.0-8.0); NEUTROPHILS # 6.1 10^3/uL (1.5-8.5); NEUTROPHILS % 72.5 % (36.0-66.0); PLATELET COUNT, AUTOMATED 304 10^3/uL (150-450); RED BLOOD COUNT 3.67 10^6/uL (4.00-5.40); WHITE BLOOD COUNT 8.4 10^3/uL (4.0-10.0)
[2020-11-13 07:42] LABS: BLOOD UREA NITROGEN 6 MG/DL (7-18); CALCIUM LEVEL 8.4 MG/DL (8.8-10.2); CARBON DIOXIDE LEVEL 25 MEQ/L (21-32); CHLORIDE LEVEL 109 MEQ/L (98-107); CREATININE FOR GFR 0.59 MG/DL (0.55-1.30); GLOMERULAR FILTRATION RATE > 60.0 (>45); GLUCOSE, FASTING 81 MG/DL (70-100); POTASSIUM SERUM 4.2 MEQ/L (3.5-5.1); SODIUM LEVEL 142 MEQ/L (136-145)
[2020-11-13] MEDS: LACTOBACILLUS ACIDOPHILUS CAP (BACID) PO SCH (08:15)
[2020-11-13] MEDS: bisoproloL fumarate 10 MG TAB PO SCH (08:15)
[2020-11-13] MEDS: GABAPENTIN 400MG CAP PO SCH (08:15)
[2020-11-13] MEDS: HEPARIN SOD (PORCINE) 5000UNITS/ML 1ML VIAL/SYRINGE SQ SCH ×2 (08:16→21:11)
[2020-11-13] MEDS: SERTRALINE HCL 50 MG TAB PO SCH (08:16)
[2020-11-13] MEDS: MONTELUKAST 10 MG TAB PO SCH (08:16)
[2020-11-13] MEDS: ISOSORBIDE MON. (IMDUR) 30 MG XR TAB PO SCH (08:16)
[2020-11-13] MEDS: FLUTICASONE PROP 0.05% NASAL SPRAY 16 GM (FLONASE) SCH (08:19)
--- NOTE | 2020-11-13 12:33 | ER ---
ER CONSULTATION DATE: 11/12/2020 TIME: 11 p.m. CONSULTING SERVICE: Orthopedic surgery. CONSULTING PHYSICIAN: Ramirez Ching MD HISTORY OF PRESENT ILLNESS: This is a 65-year-old female who fell on her right knee approximately 10 days prior. The patient has a healing eschar over her right knee and does have history of taking blood thinners. The patient has what appears to be septic versus aseptic prepatellar bursitis and surrounding cellulitis and healing anterior knee abrasion. The patient was seen by [facility] a few days prior and they ruled out patellar fracture. The patient presented to [facility] for further evaluation and treatment. MEDICAL HISTORY: Hypertension, hyperlipidemia and myocardial infarction in 2017. SURGICAL HISTORY: Stenting x4 of coronary arteries, esophageal surgery, x2. SOCIAL HISTORY: Nondrinker, nonsmoker, non IV drug user. Lives at home with her . ALLERGIES: MORPHINE. MEDICATIONS: 1. Plavix. 2. Lipitor. 3. Daily Aspirin. 4. Other unknown drugs at this time. REVIEW OF SYSTEMS: 14 point review of systems negative unless otherwise mentioned in HPI above. PHYSICAL EXAMINATION: GENERAL: Alert and oriented to person, time and place. RIGHT KNEE: Demonstrates eschar overlying the patella. This is a scab/eschar which appears to be in the healing phase. She has surrounding cellulitis with circumference of approximately 3 inches. She has had no knee effusion. However, she did have an effusion about the prepatellar region, septic versus aseptic. She had erythema of the skin in this region. The right lower extremity was otherwise neurovascularly intact. She had 5/5 motor strength in EHL, FHL, tibialis anterior, peroneal and yesterday this musculature showed intact to light touch to the deep and superficial peroneal, sural fascia and tibial nerve distributions. She had brisk capillary refill to the digits, 2+ posterior tibial and dorsalis pedis pulse. RADIOGRAPHS: None today. However, 10 days prior demonstrated mild tricompartmental osteoarthritis, no fracture of patella. CT scan obtained approximately two days prior demonstrates fluid collection within the prepatellar region. IMPRESSION: 65-year-old female with septic versus aseptic prepatellar bursitis and surrounding cellulitis. PROCEDURE: The patient was consented for prepatellar aspiration yielding 20 mL of hematogenous appearing fluid. PLAN: At this point in time the patient has a healing abrasion over the patella of her right knee as well as surrounding cellulitis and aseptic or septic prepatellar bursitis with resolving hematoma. Aspiration of the questioned fluid in the prepatellar region is pending laboratory analysis including bursal white blood cell count, aerobic and anaerobic specimens and Gram stain. Pending the cultures and the white blood cell count she will be treated accordingly with IV antibiotics. The patient will receive empirical antibiotics for her surrounding cellulitis of the knee and based on the cultures of the aspirant of the right prepatellar bursitis region these will be tailored to treat the aforementioned. At this point in time we recommend the patient remains toe-touch weightbearing to the right lower extremity and her right knee immobilized with extension with knee immobilizer. She will likely require IV antibiotics for her cellulitis and possible septic prepatellar bursitis. She likely will not require surgical intervention at this time until further laboratory analysis is achieved and likely then will be given several weeks' trial of IV antibiotics prior to any consideration of orthopedic surgery for this condition. Thank you for this interesting consult. GALINA
--- NOTE | 2020-11-13 13:47 | IPNPDOC ---
Text Note Date of Service The patient was seen on 11/13/20. NOTE Subjective: No new acute events overnight. Patient complains of right knee pain 4 out of 10. Objective: GENERAL APPEARANCE: NAD HEENT: no scleral icterus, no JVD, EOMI CARDIOVASCULAR: S1S2 LUNGS: Diminished lung sounds bilaterally ABDOMEN: soft & not tender w palpation MUSCULOSKELETAL: no cyanosis, right knee swelling, erythema of right distal extremity INTEGUMENT: no generalized pallor NEUROLOGICAL: cranial nerve function from 2-12 intact, follows commands, speech not dysarthric Assessment and plan: Patient is 65 years old female with past medical history of hypertension, hyperlipidemia, CAD, GERD, anxiety, chronic back pain, and OA who arrives with complaints of right knee pain. Patient was found to have right knee hematoma with cellulitis Right knee hematoma/bursitis/leg cellulitis/deconditioning Culture of aspiration fluid pending There is concern for prepatellar septic bursitis Continue vancomycin empirically PT/OT According to orthopedic team toe-touch weightbearing to the right lower extremity and her right knee immobilized with extension with knee immobilizer Hypertension Continue home meds Blood pressure under control GERD: Continue Protonix and Carafate. JAY: CPAP at bedtime CAD Patient denies any chest pain Continue home meds Obesity: Complicates care BMI of 37.6 Chronic back pain Continue pain management DVT prophylaxis with heparin twice daily VS,Fishbone, I+O VS, Fishbone, I+O Laboratory Tests 11/12/20 19:14 11/13/20 06:00 Vital Signs Date Time Temp Pulse Resp B/P (MAP) Pulse Ox O2 Delivery O2 Flow Rate FiO2 11/13/20 08:16 117/69 11/13/20 08:15 71 11/13/20 06:31 98.5 18 97 Room Air I&O- Last 24 Hours up to 6 AM 11/13/20 06:00 Intake Total 965 ml Output Total 0 ml Balance 965 ml GUILLAUME DAVILA DO Nov 13, 2020 13:47
[2020-11-13 14:00] VITALS: BP 119/69
[2020-11-13] MEDS: VANCOMYCIN HCL 750 MG, VIAL MATE ADAPTER 1 EACH in NS 250 ML IV SCH (15:59)
[2020-11-13] MEDS: ADVAIR HFA 230/21MCG INHALER INH SCH (20:11)
[2020-11-13] MEDS ORDERED: **NOTE PATIENT COMMENT** MISC XX PRN (21:00)
[2020-11-13] MEDS: NORTRIPTYLINE 25 MG CAP PO SCH (21:14)
[2020-11-13 22:05] VITALS: BP 156/85
[2020-11-14] MEDS: VANCOMYCIN HCL 750 MG, VIAL MATE ADAPTER 1 EACH in NS 250 ML IV SCH (00:08)
[2020-11-14 05:46] LABS: BASO # 0.1 10^3/uL (0.0-0.2); BASO % 0.7 % (0.0-1.0); EOS % 0.4 % (0.0-3.0); HEMATOCRIT 34.5 % (36.0-47.0); HEMOGLOBIN 11.3 g/dl (12.0-15.5); LYMPH # 1.8 10^3/uL (1.5-5.0); LYMPH % 25.7 % (24.0-44.0); MEAN CORPUSCULAR HEMOGLOBIN 30.9 pg (27.0-33.0); MEAN CORPUSCULAR HGB CONC 32.8 g/dl (32.0-36.5); MEAN CORPUSCULAR VOLUME 94.3 fl (80.0-96.0); MONO # 0.5 10^3/uL (0.0-0.8); MONO % 7.6 % (2.0-8.0); NEUTROPHILS # 4.5 10^3/uL (1.5-8.5); NEUTROPHILS % 65.2 % (36.0-66.0); PLATELET COUNT, AUTOMATED 290 10^3/uL (150-450); RED BLOOD COUNT 3.66 10^6/uL (4.00-5.40); WHITE BLOOD COUNT 6.8 10^3/uL (4.0-10.0)
[2020-11-14 06:22] VITALS: BP 152/82
[2020-11-14 07:43] LABS: BLOOD UREA NITROGEN 9 MG/DL (7-18); CALCIUM LEVEL 8.6 MG/DL (8.8-10.2); CARBON DIOXIDE LEVEL 24 MEQ/L (21-32); CHLORIDE LEVEL 109 MEQ/L (98-107); CREATININE FOR GFR 0.72 MG/DL (0.55-1.30); GLOMERULAR FILTRATION RATE > 60.0 (>45); GLUCOSE, FASTING 90 MG/DL (70-100); POTASSIUM SERUM 3.5 MEQ/L (3.5-5.1); SODIUM LEVEL 139 MEQ/L (136-145); VANCOMYCIN LEVEL TROUGH 23.1 UG/ML (10.0-20.0)
[2020-11-14] MEDS: ADVAIR HFA 230/21MCG INHALER INH SCH (07:46)
[2020-11-14] MEDS: TOPIRAMATE (TopAMAX) 100 MG TAB PO SCH (08:32)
[2020-11-14] MEDS: LACTOBACILLUS ACIDOPHILUS CAP (BACID) PO SCH (08:33)
[2020-11-14 08:34] VITALS: BP 152/82
[2020-11-14] MEDS: MONTELUKAST 10 MG TAB PO SCH (08:34)
[2020-11-14] MEDS: bisoproloL fumarate 10 MG TAB PO SCH (08:34)
[2020-11-14] MEDS: SUCRALFATE 1 GM TAB PO SCH (08:34)
[2020-11-14] MEDS: GABAPENTIN 400MG CAP PO SCH (08:35)
[2020-11-14] MEDS: SERTRALINE HCL 50 MG TAB PO SCH (08:35)
[2020-11-14] MEDS: ISOSORBIDE MON. (IMDUR) 30 MG XR TAB PO SCH (08:35)
[2020-11-14] MEDS: CALCIUM/VITAMIN D 500 MG TAB PO SCH (08:36)
[2020-11-14] MEDS: BACLOFEN 10 MG TAB PO SCH (08:36)
[2020-11-14] MEDS: PANTOPRAZOLE 40MG TAB (PROTONIX) PO SCH (08:36)
[2020-11-14] MEDS: HEPARIN SOD (PORCINE) 5000UNITS/ML 1ML VIAL/SYRINGE SQ SCH (08:37)
[2020-11-14] MEDS: FLUTICASONE PROP 0.05% NASAL SPRAY 16 GM (FLONASE) SCH (09:00)
[2020-11-14] MEDS ORDERED: DOXY-350 PO ×2 (09:24→10:28)
--- NOTE | 2020-11-14 12:39 | DS.PDOC ---
Discharge Summary General Date of Admission Nov 13, 2020 at 00:19 Date of Discharge 11/14/20 Discharge Summary PROCEDURES PERFORMED DURING STAY: [None]. ADMITTING DIAGNOSES: Right knee hematoma/bursitis/leg cellulitis/deconditioning Hypertension CAD Obesity Chronic back pain DISCHARGE DIAGNOSES: Right knee hematoma/bursitis/leg cellulitis/deconditioning Hypertension CAD Obesity Chronic back pain COMPLICATIONS/CHIEF COMPLAINT: Cellulitis Of Right Knee. HISTORY OF PRESENT ILLNESS: Lianne Tuttle is a 65-year-old female with significant history of hypertension, hyperlipidemia, CAD, GERD, anxiety, chronic back pain, and OA who arrives with complaints of right knee pain. Patient reports that she fell on November 01 on her right knee. She describes she had a migraine and was walking up her front porch steps when the sunlight hit her and she at baseline has typical left lower extremity weakness from a former back surgery and she typically will have to step with her right foot first however she was distracted with the sunlight and her migraine -she stepped with her left leg and described "giving out" and landing on her right knee. She also described catching the right side of her face where she broke her glasses and has superficial bruising to her brow. Patient reports that she went to the ER and had a CAT scan done which was normal and she had abrasion to the right knee at the time. Unfortunately, over the course of the past week she was noted to have increased swelling to the right knee developed redness down towards the right lower extremity and associated moderate aching pain. Patient reports that she had seen her clinic doctor outpatient and was started on Keflex but as symptoms worsen she was recommended to come to the hospital. Patient describes increased bruising to the right lower extremity as well down towards her right foot. She reports that she is on Plavix. Patient describes severe pain today 8 out of 10 aching and throbbing and a sensation of tightness. She reports that she could not even drive herself home yesterday because of the tightness in her foot as she tried to use the pedal. Pt denies hopkins, sinus congestion, sore throat, productive cough, sob, palpitations, chest pain, n/v/d, abdominal pain, sensory changes or syncope. CT of knee scribes hematoma 7 cm x 2 cm x 7 cm. Ortho consulted in ED and aspirated bloody fluid and sent to culture. Patient will be admitted for further evaluation management of presenting concerns. HOSPITAL COURSE: During the hospital stay the following issue addressed Right knee hematoma/bursitis/leg cellulitis/deconditioning Culture of aspiration fluid negative for microorganism. Anaerobic culture pending I discussed the case with Dr Ching, he recommended to discharge patient with close follow-up with orthopedic team Doxycycline 100 mg twice daily in the outpatient settings for the next 10 days DISCHARGE MEDICATIONS: Please see below. ALLERGIES: Please see below. PHYSICAL EXAMINATION ON DISCHARGE: VITAL SIGNS: Please see below. GENERAL APPEARANCE: NAD HEENT: no scleral icterus, no JVD, EOMI CARDIOVASCULAR: S1S2 LUNGS: Diminished lung sounds bilaterally ABDOMEN: soft & not tender w palpation MUSCULOSKELETAL: no cyanosis, right knee swelling, erythema of right distal extremity INTEGUMENT: no generalized pallor NEUROLOGICAL: cranial nerve function from 2-12 intact, follows commands, speech not dysarthric LABORATORY DATA: Please see below. IMAGING: COMPARISON: None. TECHNIQUE: CT right knee in the axial plane following the intravenous administration of 100 cc of Isovue 370. Sagittal and coronal reconstruction images performed. FINDINGS: There is no acute fracture or dislocation. No intrinsic osseous pathology is seen. There is a prepatellar hematoma measuring 7.7 x 2.0 x 7.4 cm. Venous varicosities are seen superficially medially Z. six there is mild diffuse soft tissue edema circumferentially. No enhancing mass is seen. IMPRESSION: No fracture or dislocation. Prepatellar hematoma. PROGNOSIS: Fair ACTIVITY: [As tolerated]. DIET: Cardiac DISPOSITION: 01 Home, Self-Care. DISCHARGE INSTRUCTIONS: According to orthopedic team toe-touch weightbearing to the right lower extremity and her right knee immobilized with extension with knee immobilizer ITEMS TO FOLLOWUP ON ON OUTPATIENT: Follow-up with orthopedic team DISCHARGE CONDITION: [Stable]. TIME SPENT ON DISCHARGE: 30minutes. Vital Signs/I&Os Vital Signs Date Time Temp Pulse Resp B/P (MAP) Pulse Ox O2 Delivery O2 Flow Rate FiO2 11/14/20 08:34 76 152/82 11/14/20 06:22 97.7 19 97 Room Air I&O- Last 24 Hours up to 6 AM 11/14/20 06:00 Intake Total 850 ml Output Total 1750 ml Balance -900 ml Laboratory Data Labs 24H Laboratory Tests 2 11/13/20 12:59: Vancomycin Level Trough 20.2H 11/14/20 05:10: Immature Granulocyte % (Auto) 0.4, Neutrophils (%) (Auto) 65.2, Lymphocytes (%) (Auto) 25.7, Monocytes (%) (Auto) 7.6, Eosinophils (%) (Auto) 0.4, Basophils (%) (Auto) 0.7, Neutrophils # (Auto) 4.5, Lymphocytes # (Auto) 1.8, Monocytes # (Auto) 0.5, Eosinophils # (Auto) 0.0, Basophils # (Auto) 0.1, Nucleated Red Blood Cells % (auto) 0.0, Lactic Acid Level 0.6 11/14/20 06:54: Vancomycin Level Trough 23.1H, Anion Gap 6L, Glomerular Filtration Rate > 60.0, Calcium Level 8.6L CBC/BMP Laboratory Tests 11/14/20 05:10 11/14/20 06:54 Microbiology Microbiology 11/13/20 Gram Stain - Final, Resulted 11/13/20 Wound Culture, Resulted Pending 11/13/20 Anaerobic Culture, Resulted Pending 11/12/20 Blood Culture - Preliminary, Resulted No growth after 24 hours . All specim... 11/12/20 Blood Culture - Preliminary, Resulted No growth after 24 hours . All specim... Discharge Medications Scheduled Atorvastatin Calcium (Atorvastatin Calcium) 80 Mg Tablet, 80 MG PO QHS, (Reported) Baclofen (Baclofen) 10 Mg Tablet, 10 MG PO BID, (Reported) Bisoprolol Fumarate (Bisoprolol Fumarate) 10 Mg Tablet, 10 MG PO DAILY, (Reported) Calcium Carbonate/Vitamin D3 (Calcium 500-Vit D3 400 Tablet) 1 Each Tablet, 1 TAB PO BID, (Reported) Clopidogrel Bisulfate (Clopidogrel) 75 Mg Tablet, 75 MG PO QHS, (Reported) Cyclosporine (Restasis) 0.05% [place], 1 DROP OU BID, (Reported) Doxycycline Monohydrate (Doxycycline) 100 Mg Capsule, 1 CAP PO BID Take pills with plenty of food Fluticasone Propion/Salmeterol (Advair Hfa 230-21 Mcg Inhaler) 12 Gm Hfa.aer.ad, 2 PUFF INH BID, (Reported) Fluticasone Propionate (Flonase Allergy Relief) 9.9 Ml [place].susp, 50 MCG NA DAILY, (Reported) Gabapentin (Gabapentin) 400 Mg Capsule, 400 MG PO DAILY, (Reported) Gabapentin (Gabapentin) 600 Mg Tablet, 600 MG PO QHS, (Reported) Isosorbide Mononitrate (Isosorbide Mononitrate ER) 30 Mg Tab.er.24h, 30 MG PO DAILY, (Reported) Lisinopril (Lisinopril) 20 Mg Tablet, 20 MG PO QHS, (Reported) Melatonin (Melatonin) 10 Mg Capsule, 10 MG PO QHS, (Reported) Montelukast Sodium (Montelukast Sodium) 10 Mg Tablet, 10 MG PO DAILY, (Reported) Nortriptyline HCl (Nortriptyline HCl) 25 Mg Capsule, 25 MG PO QHS, (Reported) Pantoprazole Sodium (Pantoprazole Sodium) 40 Mg Tablet.dr, 40 MG PO BID, (Reported) Sertraline Hcl (Zoloft) 50 Mg Tab, 50 MG PO DAILY, (Reported) Sucralfate (Sucralfate) 1 Gm Tablet, 1 GM PO TID, (Reported) Topiramate (Topiramate) 100 Mg Tablet, 100 MG PO BID, (Reported) Trazodone HCl (Trazodone HCl) 100 Mg Tablet, 100 MG PO QHS, (Reported) Scheduled PRN Albuterol Sulfate (Proventil Hfa) 6.7 Gm Hfa.aer.ad, 2 MCG INH Q4HP PRN for SOB/WHEEZING, (Reported) Lidocaine (Lidoderm) 5% Adh..patch, 1 PATCH TD DAILY PRN for PAIN, (Reported) Apply to BACK, Remove patch after 12 hours Nitroglycerin (Nitroglycerin) 0.4 Mg Sub, for CHEST PAIN, (Reported) Oxycodone/Acetaminophen (Oxycodone-Acetaminophen 5-325) 1 Each Tablet, 1 TAB PO Q8HP PRN for PAIN, (Reported) Allergies Coded Allergies: acetaminophen (Verified Allergy, Unknown, 11/13/20) amoxicillin (Unverified Adverse Reaction, Unknown, diarrhea, 05/29/18) cefuroxime (Unverified Adverse Reaction, Unknown, diarrhea, 05/29/18) clavulanic acid (Unverified Adverse Reaction, Unknown, diarrhea, 05/29/18) morphine (Unverified Adverse Reaction, Unknown, muscle twitching, jittery, 05/29/18) pregabalin (Unverified Adverse Reaction, Unknown, blurred vision, 05/29/18) propoxyphene (Unverified Adverse Reaction, Unknown, hallucinations, dizziness, 05/29/18) GUILLAUME DAVILA DO Nov 14, 2020 12:39
[2020-11-14] MEDS ORDERED: VANCOMYCIN HCL 1,000 MG, VIAL MATE ADAPTER 1 EACH in NS 250 ML IV SCH (15:00)
--- OUTSIDE RECORDS SUMMARY | 2020-12-09 09:34 | CCD | Continuity of Care Document ---
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 Name Role Phone Bill Tapia MD [facility] [phone] Problems Description No Active Problems Social History Type Date Description Comments Sex Unknown ETOH Use Denies alcohol use Tobacco Use Start: Unknown Patient has never smoked Allergies and adverse reactions Active Allergies Criticality Reaction | Severity Comments Date Darvon Unable to assess criticality | Severe 08/07/2014 Darvocet Unable to assess criticality | Severe 08/07/2014 Morphine Unable to assess criticality | Severe 08/07/2014 Medications Active Medications SIG Qnty Indications Ordering Provide r Date Gabapentin 400mg Capsules 1 tablet in the morning 90caps Elver Ray MD 10/15/2020 Gabapentin 600mg Tablets Take One Tablet By Mouth AT Bedtime 90tabs Elver Ray MD 02/16/20 Diclofenac Sodium 1% Gel apply 2 grams to the neck three times a day 100gm M79.601 Elver Ray MD 1 03/01/2018 Zyrtec Allergy 10mg Capsules 1 by mouth every day Cortney Diaz DO 08/07/2014 Aspirin 81 81mg Tablets 1 by mouth every day Unknown Sertraline HCL 50mg Tablets Tom Kim MD Topiramate 100mg Tablets Ragini Galvin RPA Pantoprazole Sodium 40mg Tablets Bill Tafoya MD Atorvastatin Calcium 40mg Tablets Bill Tapia MD Sucralfate 1gm Tablets Bill Tapia MD Spiriva Respimat 1.25mcg/Act Aerosol Unknown Nortriptyline HCL 25mg Capsules Ragini Galvin RPA Fluticasone Propionate 50mcg/Act Suspension Forrest Cuellar md Lidoderm 5% Patches use as directed on 12 hours off 12 hours up to 3 patches a day Unknown Digox 250mcg Tablets 1 by mouth every day Unknown Advair HFA 230-21mcg/Act Aerosol Unknown Zoloft 50mg Tablets 1 by mouth every day Unknown Lisinopril 2.5mg Tablets take one tablet by mouth at bedtime Unknown Carvedilol 25mg Tablets take 1 tablet by mouth twice a day. Unknown Ventolin HFA 108(90Base) mcg/Act A erosol 2 puffs four times a day as needed Unknown Trazodone HCL 50mg Tablets 3 po qd at bedtime Unknown Carafate 1gm Tablets 1 by mouth four times a day before meals and every at bedtime Unknown Restasis 0.05% Emulsion drop twice a day in ea eye Unknown Protonix 40mg Tablets DR 1 by mouth bid Unknown Montelukast Sodium 10mg Tablets 1 po qd Unknown Lipitor 40mg Tablets 1 by mouth every day Unknown Baclofen 10mg Tablets 1 by mo uth tid Unknown Immunizations Description No Information Available Vital Signs Date Vital Result Comment 11/04/2020 2:11pm Body Temperature 97.1 F Height 60.5 inches 5'0.50" Weight 198.12 lb BMI (Body Mass Index) 38.1 kg/m2 08/17/2020 3:02pm Body Temperature 97.2 F Height 61.75 inches 5'1.75" Weight 197.00 lb BMI (Body Mass Index) 36.3 kg/m2 Results Test Acquired Date Facility Test Result H/L Range Note CBC With Differential 11/23/[address] [address] (315)- - White Blood Count 10.5 10 High 4.0-10.0 Red Blood Count 4.06 10 Normal 4.00-5.40 Hemoglobin 12.5 g/dL Normal 12.0-15.5 Hematocrit 39.2 % Normal 36.0-47.0 Mean Corpuscular Volume 96.6 fl High 80.0-96.0 Mean Corpuscular Hemoglobin 30.8 pg Normal 27.0-33.0 Mean Corpuscular HGB Conc 31.9 g/dL Low 32.0-36.5 Red Cell Distribution Width 14.6 % High 11.5-14.5 Platelet Count, Automated 383 10 Normal 150-450 Neutrophils % 68.7 % High 36.0-66.0 Lymph % 22.5 % Low 24.0-44.0 [place] % 7.2 % Normal 2.0-8.0 Eos % 0.4 % Normal 0.0-3.0 Baso % 0.8 % Normal 0.0-1.0 Immature Granulocyte % 0.4 % Normal 0-3.0 Nucleated Red Blood Cell % 0.0 % Normal 0-0 Neutrophils # 7.2 10 Normal 1.5-8.5 Lymph # 2.4 10 Normal 1.5-5.0 [place] # 0.8 10 Normal 0.0-0.8 Eos # 0.0 10 Normal 0.0-0.5 Baso # 0.1 10 Normal 0.0-0.2 Laboratory test finding 11/23/2020 [facility] [address] [place] [address] (315)- - Erythrocyte Sedimentation Rate 27 mm/hr Normal 0-30 C Reactive Protein Quantitativ 0.94 mg/dL High 0.00-0.30 Procedures Date Code Description Status 11/23/2020 82534 Office/Outpatient Established Lo w MDM 20-29 Min Completed 11/11/2020 76912 Office/Outpatient Established Mo d MDM 30-39 Min Completed 11/11/2020 23031 X-Ray Knee Complete W/Obliques & Tunnel And/Or Standing Views Completed 11/04/2020 80532 Office/Outpatient Established Lo w MDM 20-29 Min Completed 10/29/2020 46245 Therapeutic Procedure, Each 15 M inutes Completed 10/27/2020 03346 Therapeutic Procedure, Each 15 M inutes Completed 10/22/2020 86052 Therapeutic Procedure, Each 15 M inutes Completed 10/19/2020 45552 Therapeutic Procedure, Each 15 M inutes Completed 10/15/2020 48532 Therapeutic Procedure, Each 15 M inutes Completed 10/12/2020 93368 Therapeutic Procedure, Each 15 M inutes Completed 10/08/2020 76993 Therapeutic Procedure, Each 15 M inutes Completed 10/05/2020 22640 Manual Therapy Each 15 Minutes C ompleted 10/05/2020 91743 Therapeutic Procedure, Each 15 M inutes Completed 09/29/2020 28191 Office/Outpatient Established Lo w MDM 20-29 Min Completed 09/29/2020 20682 Manual Therapy Each 15 Minutes C ompleted 09/29/2020 07539 Therapeutic Procedure, Each 15 M inutes Completed 09/29/2020 69503 Inject/Drain Joint/Bursa Major C ompleted 09/27/2020 87648 Therapeutic Procedure, Each 15 M inutes Completed 09/24/2020 43607 Therapeutic Procedure, Each 15 M inutes Completed 09/22/2020 59321 Therapeutic Procedure, Each 15 M inutes Completed 09/16/2020 71658 Manual Therapy Each 15 Minutes C ompleted 09/16/2020 64853 Therapeutic Procedure, Each 15 M inutes Completed 09/13/2020 66236 Manual Therapy Each 15 Minutes C ompleted 09/13/2020 43314 Therapeutic Procedure, Each 15 M inutes Completed 09/10/2020 66517 Manual Therapy Each 15 Minutes C ompleted 09/10/2020 99895 Therapeutic Procedure, Each 15 M inutes Completed 09/06/2020 82531 Manual Therapy Each 15 Minutes C ompleted 09/06/2020 42008 Therapeutic Procedure, Each 15 M inutes Completed 09/03/2020 16905 Manual Therapy Each 15 Minutes C ompleted 09/03/2020 70812 Therapeutic Procedure, Each 15 M inutes Completed 09/01/2020 17598 Manual Therapy Each 15 Minutes C ompleted 09/01/2020 29280 Therapeutic Procedure, Each 15 M inutes Completed 08/26/2020 19521 Physical Therapy Eval - Low Comp lexity Completed 08/17/2020 82250 Office/Outpatient Established Lo w MDM 20-29 Min Completed 08/17/2020 08339 X-Ray Hips Bilateral With Pelvis 3-4 Views Completed Medical Devices Description No Information Available Encounters Type Date Location Provider Dx Diagnosis Office Visit 11/23/2020 11:15a [place] Vivienne Aguero PA-C S80.01x D Contusion of right knee, subsequent encounter L03.115 Cellulitis of right lower li mb Office Visit 11/11/2020 2:40p [place] Tenzin Martin PA-C L0 3.115 Cellulitis of right lower limb M79.661 Pain in right lower leg Office Visit 11/04/2020 2:00p [place] Janeen Adair S80.01xA Contusion of right knee, initial encounter S60.212A Contusion of left wrist, ini tial encounter S60.211A Contusion of right wrist, in itial encounter Office Visit 09/29/2020 11:00a [place] Ol[place] M16.0 Bilateral primary osteoarthritis of hip M70.61 Trochanteric bursitis, right hip M70.62 Trochanteric bursitis, left hip M25.562 Pain in left knee Office Visit 08/17/2020 2:30p [place] [place] M16.0 Bilateral primary osteoarthritis of hip M70.61 Trochanteric bursitis, right hip M70.62 Trochanteric bursitis, left hip Assessments Date Code Description Provider 11/26/2020 M70.62 Trochanteric bursitis, left hip Fam Ksenia Short P.TDiane 11/26/2020 M70.61 Trochanteric bursitis, right hip Fam Ksenia Short P.TDiane 11/26/2020 M16.0 Bilateral primary osteoarthritis of hip Fam Ksenia Short P.TDiane 11/23/2020 S80.01xD Contusion of right knee, subsequ ent encounter Vivienne Aguero PA-C 11/23/2020 L03.115 Cellulitis of right lower limb Renee Aguero PA-C 11/11/2020 L03.115 Cellulitis of right lower limb B mario Martin PA-C 11/11/2020 M79.661 Pain in right lower leg Tenzin Martin PA-C 11/04/2020 S80.01xA Contusion of right knee, initial encounter Thomas Benavides, P.A. 11/04/2020 S60.212A Contusion of left wrist, initial encounter Thomas Benavides, P.A. 11/04/2020 S60.211A Contusion of right wrist, initia l encounter Thomas Benavides, P.A. 10/29/2020 M16.0 Bilateral primary osteoarthritis of hip Latonya Luci Power, TRAIN PLANNER 10/29/2020 M70.61 Trochanteric bursitis, right hip Latonya Luci Power, TRAIN PLANNER 10/29/2020 M70.62 Trochanteric bursitis, left hip Latonya Luci Power, TRAIN PLANNER 10/27/2020 M16.0 Bilateral primary osteoarthritis of hip Latonya Luci Power, TRAIN PLANNER 10/27/2020 M70.61 Trochanteric bursitis, right hip Latonya Luci Power, TRAIN PLANNER 10/27/2020 M70.62 Trochanteric bursitis, left hip Latonya Luci Power, TRAIN PLANNER 10/22/2020 M16.0 Bilateral primary osteoarthritis of hip Latonya Luci Power, TRAIN PLANNER 10/22/2020 M70.61 Trochanteric bursitis, right hip Latonya Luci Power, TRAIN PLANNER 10/22/2020 M70.62 Trochanteric bursitis, left hip Latonya Luci Power, TRAIN PLANNER 10/19/2020 M16.0 Bilateral primary osteoarthritis of hip Latonya Luci Power, TRAIN PLANNER 10/19/2020 M70.61 Trochanteric bursitis, right hip Latonya Luci Power, TRAIN PLANNER 10/19/2020 M70.62 Trochanteric bursitis, left hip Latonya Luci Power, TRAIN PLANNER 10/15/2020 M16.0 Bilateral primary osteoarthritis of hip Latonya Luci Power, TRAIN PLANNER 10/15/2020 M70.61 Trochanteric bursitis, right hip Latonya Luci Power, TRAIN PLANNER 10/15/2020 M70.62 Trochanteric bursitis, left hip Latonya Luci Power, TRAIN PLANNER 10/12/2020 M16.0 Bilateral primary osteoarthritis of hip Latonya Luci Power, TRAIN PLANNER 10/12/2020 M70.61 Trochanteric bursitis, right hip Latonya Luci Power, TRAIN PLANNER 10/12/2020 M70.62 Trochanteric bursitis, left hip Latonya Power, TRAIN PLANNER 10/08/2020 M16.0 Bilateral primary osteoarthritis of hip Latonya Luci Power, TRAIN PLANNER 10/08/2020 M70.61 Trochanteric bursitis, right hip Latonya Power, TRAIN PLANNER 10/08/2020 M70.62 Trochanteric bursitis, left hip Latonya Power, TRAIN PLANNER 10/05/2020 M16.0 Bilateral primary osteoarthritis of hip Fam Ksenia Cook P.T. 10/05/2020 M70.61 Trochanteric bursitis, right hip Fam Ksenia Cook P.T. 10/05/2020 M70.62 Trochanteric bursitis, left hip Fam Mccormack Cook P.T. 09/29/2020 M16.0 Bilateral primary osteoarthritis of hip Latonay Luci Power, TRAIN PLANNER 09/29/2020 M16.0 Bilateral primary osteoarthritis of hip Herrera IDiane Grant, PA 09/29/2020 M70.61 Trochanteric bursitis, right hip Herrera Rosanna Grant, PA 09/29/2020 M70.61 Trochanteric bursitis, right hip Latonya Power, TRAIN PLANNER 09/29/2020 M70.62 Trochanteric bursitis, left hip Herrerakraig Marte Rudy, PA 09/29/2020 M25.562 Pain in left knee Herrera Grant , PA 09/29/2020 M70.62 Trochanteric bursitis, left hip Latonya Power, TRAIN PLANNER 09/27/2020 M16.0 Bilateral primary osteoarthritis of hip Fam Ksenia Cook P.T. 09/27/2020 M70.61 Trochanteric bursitis, right hip Fam Deven. Cook P.T. 09/27/2020 M70.62 Trochanteric bursitis, left hip Fam Deven. Cook P.T. 09/24/2020 M16.0 Bilateral primary osteoarthritis of hip Fam Deven. Cook P.T. 09/24/2020 M70.61 Trochanteric bursitis, right hip Fam Mccormack Cook P.T. 09/24/2020 M70.62 Trochanteric bursitis, left hip Fam Mccormack Cook P.T. 09/22/2020 M16.0 Bilateral primary osteoarthritis of hip Fam Mccormack Cook P.T. 09/22/2020 M70.61 Trochanteric bursitis, right hip Fam Mccormack Cook P.T. 09/22/2020 M70.62 Trochanteric bursitis, left hip Fam Mccormack Cook P.T. 09/16/2020 M16.0 Bilateral primary osteoarthritis of hip Latonya Luci Power, TRAIN PLANNER 09/16/2020 M70.61 Trochanteric bursitis, right hip Latonya Luci Power, TRAIN PLANNER 09/16/2020 M70.62 Trochanteric bursitis, left hip Latonya Luci Power, TRAIN PLANNER 09/13/2020 M16.0 Bilateral primary osteoarthritis of hip Latonya Luci Power, TRAIN PLANNER 09/13/2020 M70.61 Trochanteric bursitis, right hip Latonya Luci Power, TRAIN PLANNER 09/13/2020 M70.62 Trochanteric bursitis, left hip Latonya Luci Power, TRAIN PLANNER 09/10/2020 M16.0 Bilateral primary osteoarthritis of hip Latonya Luci Power, TRAIN PLANNER 09/10/2020 M70.61 Trochanteric bursitis, right hip Latonya Luci Power, TRAIN PLANNER 09/10/2020 M70.62 Trochanteric bursitis, left hip Latonya Luci Power, TRAIN PLANNER 09/06/2020 M16.0 Bilateral primary osteoarthritis of hip Latonya Luci Power, TRAIN PLANNER 09/06/2020 M70.61 Trochanteric bursitis, right hip Latonya Luci Power, TRAIN PLANNER 09/06/2020 M70.62 Trochanteric bursitis, left hip Latonya Luci Power, TRAIN PLANNER 09/03/2020 M16.0 Bilateral primary osteoarthritis of hip Latonya Luci Power, TRAIN PLANNER 09/03/2020 M70.61 Trochanteric bursitis, right hip Latonya Luci Power, TRAIN PLANNER 09/03/2020 M70.62 Trochanteric bursitis, left hip Latonya Luci Power, TRAIN PLANNER 09/01/2020 M16.0 Bilateral primary osteoarthritis of hip Latonya Luci Power, TRAIN PLANNER 09/01/2020 M70.61 Trochanteric bursitis, right hip Latonya Luci Power, TRAIN PLANNER 09/01/2020 M70.62 Trochanteric bursitis, left hip Latonya Power, TRAIN PLANNER 08/26/2020 M16.0 Bilateral primary osteoarthritis of hip Fam Mccormack Han P.T. 08/26/2020 M70.61 Trochanteric bursitis, right hip Fam Mccormack Cook P.T. 08/26/2020 M70.62 Trochanteric bursitis, left hip Fam Mccormack Han P.T. 08/17/2020 M16.0 Bilateral primary osteoarthritis of hip Herrera Grant, RADHA 08/17/2020 M70.61 Trochanteric bursitis, right hip RADHA Pope 08/17/2020 M70.62 Trochanteric bursitis, left hip RADHA Pope Plan of Treatment Future Appointment(s):* 12/07/2020 9:30 am - Tenzin Martin PA-C at [place] * 12/02/2020 1:40 pm - RADHA Pope at [place] Functional Status Description No Information Available Mental Status Description No Information Available Referrals Refer to Dr Reason for Referral Status Appt Date Tenzin Martin PA-C CT RT KNEE With and Without Contrast per medicare no auth req based on medical necessity, per Karol Chau at [facility] no auth req as this is a supplemental plan, ref [id number],passed to [facility] to schedule sw. Created [address] [place] [id number] [phone] Tenzin Martin PA-C CT RT KNEE With and Without Contrast per medicare no auth req based on medical necessity, per Karol Chau at [facility] no auth req as this is a supplemental plan, ref [id number],passed to [facility] to schedule sw. Created [address] [place] [id number] [phone] Fam Short RPT NO AUTH REQUIRED. FOLLOWS R GUIDELINES. REF #[id number]. HW Created [address] [place] [address] [address] [place] [id number] [phone] Herrera Grant I, Pac [facility] Mark Hips no auth req based on medical necessity patient is going [place] [facility] [place] to PT Dept sw. Created [address] [place] [address] [address] [place] [phone]
--- OUTSIDE RECORDS SUMMARY | 2020-12-09 09:34 | CCD | Continuity of Care Document ---
Author Author Lab [facility] Lianne Amador Organization Unknown Address [address] [place] [id number] Phone Unavailable Care Team Providers Care Jewel Inserter Name Role Phone Cortney Diaz MD AUTM [phone] Ragini Galvin AUTM [phone] Forrest Cuellar MD AUTM Pancho Mayorga MD AUTM [phone] Bill Tapia MD AUTM [phone] [facility] Lab AUTM [phone] [facility] AUTM Problems Active Problems Provider Date Disorder of back Bill Tapia M.D. Onset: 06/29/2014 Obstructive sleep apnea syndrome Bill Tapia M.D. Onset: 06/29/2014 Migraine without aura, not refractory Bill Tapia M.D. O nset: 06/29/2014 Pure hypercholesterolemia Bill Tapia M.D. Onset: 2014 Degenerative joint disease involving multiple joints Bill Tapia M.D. Onset: 06/29/2014 Gastroesophageal reflux disease Bill Tapia M.D. Onset: 06/29/2014 Chronic rhinitis Bill Tapia M.D. Onset: 06/29/2014 Anemia Bill Tapia M.D. Onset: 06/29/2014 Edema Bill Tapia M.D. Onset: 06/29/2014 Varicose veins of lower extremity Bill Tapia M.D. Onset : 06/29/2014 Hypothyroidism Bill Tapia M.D. Onset: 06/29/2014 Fibromyositis Onset: Chronic depression Onset: Migraine with aura Onset: Chronic low back pain Onset: 11/14/2009 Varicose veins of lower extremity Bill Tapia M.D. Onset : 12/30/2014 Allergic rhinitis Bill Tapia M.D. Onset: 05/24/2015 Social History Type Date Description Comments Sex Unknown ETOH Use Rarely consumes alcohol Tobacco Use Start: Unknown Patient has never smoked Allergies and adverse reactions Active Allergies Criticality Reaction | Severity Comments Date Prevacid Unable to assess criticality not effectiv e 06/29/2014 Propoxyphene Unable to assess criticality room spinnin g 06/29/2014 Augmentin Unable to assess criticality diarrhea 06/29/2014 Celebrex Unable to assess criticality increased re flux symptoms 06/29/2014 Ceftin Unable to assess criticality diarrhea 06/29/2014 Prilosec Unable to assess criticality diarrhea 06/29/2014 Dexilant (formerly Kapidex) Unable to assess criticality diarrhea 06/29/2014 Codeine Unable to assess criticality constipATION 06/29/2014 Morphine Unable to assess criticality jittery 06/29/2014 Bandaids Unable to assess criticality Itching, redness 09/25/2019 Medications Active Medications SIG Qnty Indications Ordering Provide r Date Lisinopril 20mg Tablets 1 by mouth every day 30tabs Bill Tapia M.D. 07/02/2020 Nystatin 198537Tugl/GM Cream apply to affected area twice a day 90gm Bill Tapia M.D. 0 11/04/2019 Nystatin 550642Wxru/GM Ointment topical three times a day as needed rash 15gm Bill Tapia M.D. 10/06/2019 Trazodone HCL 100mg Tablets take one tablet by mouth at bedtime 90tabs Bill Tapia M.D. 08/15/2019 Advair HFA 115-21mcg/Act Aerosol inhale two puffs by mouth twice a day 36units Mika Wood 04/13/2017 Aspir-[address] 1 by mouth every day Bill Tapia M.D. 03/24/2016 Nitrostat 0.4mg Tablets Sub one under tongue every 5 minutes x 3 as needed for chest discomfort Bill Tapia M.D. 03/24/2016 Sertraline HCL 50mg Tablets Take One Tablet By Mouth Every Day 90tabs Tom Kim MD 02/28/2016 Miralax 3350NF Powder use 17grams daily as needed for constipation in juice or water. 527unjacey Tapia M.D. 09/06/2015 Magnesium 400mg Capsules 1 by mouth bid Bill Tapia M.D. 12/30/2014 Ventolin HFA 108(90Base) mcg/Act A erosol 2 puffs four times a day as needed 1unjacey Tapia M.D. 12/30/2014 Restasis 0.05% Emulsion 1 drop both eyes twice a day Bill Tapia M.D. 06/29/2014 Calcium 600+D 493-332le-Ycng Table ts 1 po bid Bill Tapia M.D. 06/29/2014 Carafate 1gm Tablets one tablet daily before meals and at bedtime 120tabs Mika Vargas 06/29/[address] 1 by mouth twice a day 180tabs Bill Tapia M.D. 06/29/2014 Multivitamins Capsules 1 by mouth every day Bill Tapia M.D. 06/29/2014 Montelukast Sodium 10mg Tablets 1 by mouth every day 90tabs Tom Kim MD 06/29/2014 Cetirizine HCL 10mg Tablets 1 by mouth every day 90tabs Bill Tapia M.D. 06/29/2014 Lidoderm 5% Patches apply 1 patch 12 hours on and 12 hours off as needed Ragini Galvin Baclofen 10mg Tablets 1 po t id Ragini Galvin Gabapentin 400mg Capsules take one capsule by mouth qam and 600mg qpm (per Ncog) Liliya Galvin sa Nortriptyline HCL 25mg Capsules take 1 capsule by mouth at bedtime Ragini Galvin 0 Topamax 100mg Tablets take one tablet by mouth twice a day Ragini Galvin Barker 10-325mg Tablets 1 by mouth every 8 hours as needed pain Hakan Crawford MD Lastacaft 0.25% Solution 1 drop both eyes every morning Pancho Mayorga MD 0 Plavix 75mg Tablets 1 by mouth every day Unknown Isosorbide Mononitrate ER 30mg Tablets ER 24HR 1 by mouth every day Unknown 000 Bisoprolol Fumarate 5mg Tablets 1 by mouth every day Unknown Atorvastatin Calcium 80mg Tablets 1 by mouth every day 90tamandeep Tapia M.D. History Medications Ciprofloxacin HCL 500mg Tablets 1 tab by mouth twice daily x 5 days 10tabs Bill Tapia M.D. 10/21/2020 - 11/11/2020 Medications Administered in Office Medication SIG Qnty Indications Ordering Provider Date Covid-19 vaccine, Unspecified Inj ection Unknown 04/17/2020 Covid-19 vaccine, Unspecified Inj ection Unknown 03/27/2020 Immunizations CPT Code Status Date Vaccine Lot # U-Flu Given 11/24/2019 Influenza,Unspecified 10903 Given 11/24/2019 Prevnar 13 U-Flu Given 11/27/2018 Influenza,Unspecified U-DtapHi Given 04/02/2017 DTap,Hib,IPV,Unspecified Q2037 Given 11/29/2015 Fluvirin Virus Vaccine [id number] 01 Q2037 Given 12/30/2014 Fluvirin Virus Vaccine 08372 01 Vital Signs Date Vital Result Comment 11/12/2020 2:07pm BP Systolic 138 mmHg BP Diastolic 88 mmHg Heart Rate 85 /min Height 61.75 inches 5'1.75" O2 % BldC Oximetry 99 % RM Air 11/11/2020 1:37pm BP Systolic 124 mmHg BP Diastolic 78 mmHg Heart Rate 83 /min Height 61.75 inches 5'1.75" Weight 200.00 lb O2 % BldC Oximetry 96 % RM Air BMI (Body Mass Index) 36.9 kg/m2 Results Test Acquired Date Facility Test Result H/L Range Note Laboratory test finding 11/12/2020 [facility] [address] [place] [address] [phone] Erythrocyte Sedimentation Rate 37 mm/hr High 0 -30 Basic Metabolic Profile 11/12/[address] [address] [phone] Glucose, Fasting 78 mg/dL Normal 70-100 Blood Urea Nitrogen 6 mg/dL Low 7-18 Creatinine For GFR 0.70 mg/dL Normal 0.55-1.30 Glomerular Filtration Rate > 60.0 Normal >45 1 Sodium Level 138 mEq/L Normal 136-145 Potassium Serum 5.9 mEq/L High 3.5-5.1 2 Chloride Level 107 mEq/L Normal 98-107 Carbon Dioxide Level 24 mEq/L Normal 21-32 Anion Gap 7 mEq/L Low 8-16 Calcium Level 7.8 mg/dL Low 8.8-10.2 Laboratory test finding 11/12/[address] [address] [phone] C Reactive Protein Quantitativ 3.05 mg/dL High 0 .00-0.30 CBC With Differential 11/12/[address] [address] [phone] White Blood Count 8.8 10 Normal 4.0-10.0 Red Blood Count 4.03 10 Normal 4.00-5.40 Hemoglobin 12.2 g/dL Normal 12.0-15.5 Hematocrit 38.2 % Normal 36.0-47.0 Mean Corpuscular Volume 94.8 fl Normal 80.0-96.0 Mean Corpuscular Hemoglobin 30.3 pg Normal 27.0-33.0 Mean Corpuscular HGB Conc 31.9 g/dL Low 32.0-36.5 Red Cell Distribution Width 14.4 % Normal 11.5-14.5 Platelet Count, Automated 304 10 Normal 150-450 Neutrophils % 69.2 % High 36.0-66.0 Lymph % 21.0 % Low 24.0-44.0 [place] % 7.6 % Normal 2.0-8.0 Eos % 1.3 % Normal 0.0-3.0 Baso % 0.6 % Normal 0.0-1.0 Immature Granulocyte % 0.3 % Normal 0-3.0 Nucleated Red Blood Cell % 0.0 % Normal 0-0 Neutrophils # 6.1 10 Normal 1.5-8.5 Lymph # 1.8 10 Normal 1.5-5.0 [place] # 0.7 10 Normal 0.0-0.8 Eos # 0.1 10 Normal 0.0-0.5 Baso # 0.1 10 Normal 0.0-0.2 Basic Metabolic Panel 11/10/2020 [facility] Hydraulic Press Operator: [place] [address] [phone] Glucose 79 mg/dL 74 - 99 3 BUN 7 mg/dL 7 - 18 Creatinine 0.8 mg/dL 0.6 - 1.3 Sodium 137 mEq/L 136 - 145 Potassium 3.6 mEq/L 3.5 - 5.1 Chloride 103 mEq/L 98 - 107 Carbon Dioxide 30 mEq/L 21 - 32 Calcium 8.5 mg/dL 8.5 - 10.1 GFR >= 60 mL/min >60 GFR >= 60 mL/min >60 4 Complete Blood Count 11/10/2020 [facility] Hydraulic Press Operator: [place] [address] [phone] WBC 9.2 x10*3/UL 4.1 - 10.9 RBC 3.89 x10*6/UL Low 4.20 - 6.30 Hemoglobin 12.1 g/dL 12.0 - 18.0 Hematocrit 35.1 % Low 37.0 - 51.0 MCV 90.2 fL 80.0 - 97.0 MCH 31.2 pg 26.0 - 32.0 MCHC 34.5 g/dL 31.0 - 38.0 RDW 14.1 % High 11.6 - 13.7 PLT 386 x10*3/UL 140 - 440 MPV 7.9 FL 7.8 - 11.0 Lymph % 17.1 % 10.0 - 58.5 Mid % 4.7 % 1.7 - 9.3 Neut % 78.2 % 37.0 - 92.0 Lymph # 1.5 x10*3/UL 0.6 - 4.1 Mid # 0.5 x10*3/UL 0.1 - 0.6 Neut # 7.2 x10*3/UL 2.0 - 7.8 Laboratory test finding 11/01/[address] [address] [phone] Urine Culture FULL REPORT IN L <SEE NOTE> Normal 5 Ua Routine 11/01/2020 [facility] nter [address] [place] [address] [phone] Appearance, Urine HAZY Normal Clear Color, Urine STRAW Normal Yellow PH,Urine 6.0 units Normal 5.0-9.0 Specific [place] Urine Auto 1.003 Normal 1.002-1.035 Protein, Urine Auto NEGATIVE mg/dL Normal Negative Glucose, Urine (Ua) Auto NEGATIVE mg/dL Normal Negative Ketone, Urine Auto NEGATIVE mg/dL Normal Negative Urobilinogen, Urine Auto 0.2 mg/dL Normal 0.0-2.0 Bilirubin, Urine Auto NEGATIVE Normal Negative Nitrite, Urine Auto NEGATIVE Normal Negative Leukocyte Esterase, Urine Auto 1+ High Negative Blood, Urine Blood NEGATIVE Normal Negative WBC, Urine Auto 4 /HPF High 0-3 RBC, Urine Auto 1 /HPF Normal 0-3 Bacteria, Urine Auto 2+ High Negative Squamous Epithelial Cell Ur AU 3 /HPF Normal 0-6 Mucus, Urine SMALL Normal Negative Hyaline Cast, Urine Auto 0 /LPF Normal 0-1 PT & Aptt 11/01/[address] [address] [phone] Prothrombin Time 12.2 seconds Normal 12.7-14.5 Inr 0.87 Normal 6 Partial Thromboplastin Time 25.9 seconds Normal 25.9-37.0 CBC With Differential 11/01/[address] [address] [phone] White Blood Count 10.2 10 High 4.0-10.0 Red Blood Count 4.22 10 Normal 4.00-5.40 Hemoglobin 12.8 g/dL Normal 12.0-15.5 Hematocrit 39.5 % Normal 36.0-47.0 Mean Corpuscular Volume 93.6 fl Normal 80.0-96.0 Mean Corpuscular Hemoglobin 30.3 pg Normal 27.0-33.0 Mean Corpuscular HGB Conc 32.4 g/dL Normal 32.0-36.5 Red Cell Distribution Width 14.2 % Normal 11.5-14.5 Platelet Count, Automated 317 10 Normal 150-450 Neutrophils % 68.2 % High 36.0-66.0 Lymph % 23.4 % Low 24.0-44.0 [place] % 6.9 % Normal 2.0-8.0 Eos % 0.4 % Normal 0.0-3.0 Baso % 0.7 % Normal 0.0-1.0 Immature Granulocyte % 0.4 % Normal 0-3.0 Nucleated Red Blood Cell % 0.0 % Normal 0-0 Neutrophils # 7.0 10 Normal 1.5-8.5 Lymph # 2.4 10 Normal 1.5-5.0 [place] # 0.7 10 Normal 0.0-0.8 Eos # 0.0 10 Normal 0.0-0.5 Baso # 0.1 10 Normal 0.0-0.2 Istat Chem8+ Panel 11/01/2020 [facility] nter [address] [place] [address] [phone] iSTAT HCT 41.0 % Normal 38.0-51.0 iSTAT Glucose 82 mg/dL Normal 70-105 iSTAT Sodium 137 mEq/L Normal 136-145 iSTAT Potassium 3.4 mEq/L Low 3.5-5.1 iSTAT CA++ 4.7 mg/dL Normal 4.5-5.3 iSTAT Chloride 105 mEq/L Normal 98-109 iSTAT Co2 21.0 MM/L Low 23.0-27.0 iSTAT BUN 5 mg/dL Low 8-26 iSTAT Creatinine 0.6 mg/dL Normal 0.6-1.3 Laboratory test finding 10/04/2020 [facility] [address] [place] [address] [phone] Urine Culture FULL REPORT IN L <SEE NOTE> Normal 7 Periph Smear For Oncol. Review 10/04/[address] [address] [phone] Slide Review Report Normal 8 Source PERIPHERAL SMEAR Normal 9 Reason For Review WBC/LEUKEMIA/CHRISTOPHER <SEE NOTE> Normal 10 Complete Blood Count 10/04/2020 [facility] Hydraulic Press Operator: [place] [address] [phone] WBC 13.3 x10*3/UL High 4.1 - 10.9 11 RBC 4.56 x10*6/UL 4.20 - 6.30 Hemoglobin 13.9 g/dL 12.0 - 18.0 Hematocrit 41.1 % 37.0 - 51.0 MCV 90.1 fL 80.0 - 97.0 MCH 30.5 pg 26.0 - 32.0 MCHC 33.8 g/dL 31.0 - 38.0 RDW 13.4 % 11.6 - 13.7 PLT 386 x10*3/UL 140 - 440 MPV 7.7 FL Low 7.8 - 11.0 Lymph % 16.3 % 10.0 - 58.5 Mid % 5.2 % 1.7 - 9.3 Neut % 78.5 % 37.0 - 92.0 Lymph # 2.1 x10*3/UL 0.6 - 4.1 Mid # 0.8 x10*3/UL High 0.1 - 0.6 Neut # 10.4 x10*3/UL High 2.0 - 7.8 Basic Metabolic Panel 10/04/2020 [facility] [employer]ulic [employer] Operator: Dr Tom Kim [place], [place] [id number] [phone] Glucose 84 mg/dL 74 - 99 12 BUN 9 mg/dL 7 - 18 Creatinine 0.8 mg/dL 0.6 - 1.3 Sodium 133 mEq/L Low 136 - 145 Potassium 3.7 mEq/L 3.5 - 5.1 Chloride 97 mEq/L Low 98 - 107 Carbon Dioxide 30 mEq/L 21 - 32 Calcium 9.0 mg/dL 8.5 - 10.1 GFR >= 60 mL/min >60 GFR >= 60 mL/min >60 13 Ua Dipstick Only 10/04/2020 [facility] Hydraulic Press Operator: Dr Tom Kim [place] [id number] [phone] Urine Color YELLOW Yellow Urine Appearance SL. HAZY Abnormal Clear Urine PH 6.5 units 5.0 - 9.0 Urine Specific [place] 1.005 1.005 - 1.030 Urine Leukocytes LARGE Abnormal Negative Urine Blood TRACE Abnormal Negative Urine Protein NEGATIVE Negative -Trace Urine Glucose NEGATIVE mg/dL Negative Urine Nitrite NEGATIVE Negative Urine Ketone NEGATIVE mg/dL Negative Urine Bilirubin NEGATIVE Negative Urine Urobilinogen 0.2 mg/dL 0.2 - 1.0 Laboratory test finding 10/04/2020 [facility] [address] [place] [address] [phone] Pathology Request For Service (SEE NOTE) 14 Complete Blood Count 09/30/2020 [facility] Hy[employer]ulic Press Operator: [place] [address] [phone] WBC 13.2 x10*3/UL High 4.1 - 10.9 15 RBC 4.37 x10*6/UL 4.20 - 6.30 Hemoglobin 13.3 g/dL 12.0 - 18.0 Hematocrit 39.6 % 37.0 - 51.0 MCV 90.4 fL 80.0 - 97.0 MCH 30.4 pg 26.0 - 32.0 MCHC 33.6 g/dL 31.0 - 38.0 RDW 13.7 % 11.6 - 13.7 PLT 381 x10*3/UL 140 - 440 MPV 7.9 FL 7.8 - 11.0 Lymph % 8.1 % Low 10.0 - 58.5 Mid % 2.9 % 1.7 - 9.3 Neut % 89.0 % 37.0 - 92.0 Lymph # 1.0 x10*3/UL 0.6 - 4.1 Mid # 0.4 x10*3/UL 0.1 - 0.6 Neut # 11.8 x10*3/UL High 2.0 - 7.8 Comprehensive Chem Profile 09/30/2020 [facility] [employer] Operator: [place] [address] [phone] Glucose 103 mg/dL High 74 - 99 16 BUN 8 mg/dL 7 - 18 Creatinine 0.9 mg/dL 0.6 - 1.3 Sodium 131 mEq/L Low 136 - 145 17 Potassium 4.3 mEq/L 3.5 - 5.1 Chloride 97 mEq/L Low 98 - 107 Carbon Dioxide 24 mEq/L 21 - 32 Calcium 9.7 mg/dL 8.5 - 10.1 Alk. Phosphatase 109 mg/dL 46 - 116 Total Bilirubin 0.5 mg/dL 0.2 - 1.0 Ast (Sgot) 23 U/L 15 - 37 Alt (SGPT) 31 U/L 12 - 78 Albumin 3.9 g/dL 3.4 - 5.0 Total Protein 7.0 g/dL 6.4 - 8.2 A/G Ratio 1.26 CALC 1.00 - 1.90 GFR >= 60 mL/min >60 GFR >= 60 mL/min >60 18 Lipid Profile 09/30/2020 [facility] Hydraulic Press Operator: [place] [address] [phone] Cholesterol 163 mg/dL 131 - 200 Triglycerides 93 mg/dL 30 - 150 HDL Cholesterol 72 mg/dL High 35 - 60 LDL (Calculated) 72 CALC 50 - 159 Laboratory test finding 09/30/2020 [facility] Hydraulic Press Operator: [place] [address] [phone] Thyroid Stimulating Hormone 0.38 uIU/mL 0.3 6 - 3.74 T4 Free 1.21 ng/dL 0.76 - 1.46 Coronavirus 2019 Nasopharygeal 06/17/[address] [id number] [phone] Coronavirus 2019 Nasopharygeal ASSAY INFORMATIO <SEE N OTE> 19 1 Units are mL/min/1.73 m2 Chronic Kidney Disease Staging per NKF: Stage I & II GFR >=60 Normal to Mildly Decreased Stage III GFR 30-59 Moderately Decreased Stage IV GFR 15-29 Severely Decreased Stage V GFR <15 Very Little GFR Left ESRD GFR <15 on OUTSOLE CEMENTER MACHINE 2 Testing was performed on a h emolysed specimen. Suggest recollection of specimen for more accurate test results. 3 100-125 mg/dL PRE-DIABET ES/FASTING >126 mg/dL DIABETES/FASTING 4 CHRONIC KIDNEY DISEASE STAGI NG PER NKF STAGE I & II GFR >= 60 NORMAL TO MILDLY DECREASED STAGE III GFR 30-59 MODERATELY DECREASED STAGE IV GFR 15-29 SEVERELY DECREASED STAGE V GFR <15 VERY LITTLE GFR LEFT ESRD GFR <15 ON OUTSOLE CEMENTER MACHINE 5 FULL REPORT IN LAB NOTES (eC W and [facility]). NO GROWTH 6 THERAPUTIC HUMAN INR VALUES INDICATIONS NORMAL RANGES PROPHYLAXIS/TREATMENT OF: VENOUS THROMBOSIS 2.0-3.0 PULMONARY EMBOLISM 2.0-3.0 PREVENTION OF SYSTEMIC EMBOLISM FROM: TISSUE HEART VALVES 2.0-3.0 ACUTE MYOCARDIAL INFARCTION 2.0-3.0 VALVULAR HEART DISEASE 2.0-3.0 ATRIAL FIBRILLATION 2.0-3.0 MECHANICAL VALVES(HIGH RISK) 2.5-3.5 RECURRENT MYOCARDIAL INFARCTION 2.5-3.5 7 FULL REPORT IN LAB NOTES (eC W and [facility]). NO GROWTH 8 Slide and/or specimen referr ed to Pathologist for review. Results of the review are located in the EMR Pathology module under Peripheral Smear when completed. 9 PERIPHERAL SMEAR 10 WBC/LEUKEMIA/BLAST 11 NOTE: RESULT VERIFIED. 12 100-125 mg/dL PRE-DIABET ES/FASTING >126 mg/dL DIABETES/FASTING 13 CHRONIC KIDNEY DISEASE STAGI NG PER NKF STAGE I & II GFR >= 60 NORMAL TO MILDLY DECREASED STAGE III GFR 30-59 MODERATELY DECREASED STAGE IV GFR 15-29 SEVERELY DECREASED STAGE V GFR <15 VERY LITTLE GFR LEFT ESRD GFR <15 ON OUTSOLE CEMENTER MACHINE 14 10/05/2020 - 841 PERPHERAL SMEAR REVIEW Peripheral smear: Leukocytosis associated with an increased in neutrophils. Erythrocytes appear normal in number and are overall normochromic. Nucleated red cells are not seen. Platelet count within normal limits. No blast forms are identified. 10/05/2020 - 841 Signed LUI DONNELLY MD 10/05/2020 0843 15 NOTE: RESULT VERIFIED. 16 100-125 mg/dL PRE-DIABET ES/FASTING >126 mg/dL DIABETES/FASTING 17 NOTE: RESULT VERIFIED. 18 CHRONIC KIDNEY DISEASE STAGI NG PER NKF STAGE I & II GFR >= 60 NORMAL TO MILDLY DECREASED STAGE III GFR 30-59 MODERATELY DECREASED STAGE IV GFR 15-29 SEVERELY DECREASED STAGE V GFR <15 VERY LITTLE GFR LEFT ESRD GFR <15 ON OUTSOLE CEMENTER MACHINE 19 ASSAY INFORMATION: Real Time RT-PCR NOTE: The COVID-19 assay has been cleared by the U.S. Food and Drug Administration under the Emergency Use Authorization (EUA). [facility] and [facility] are designated as high complexity laboratories by the Clinical Laboratory Improvement Amendments of 1988(CLIA) and are qualified to perform this test. Not Detected Procedures Date Code Description Status 11/12/2020 11146 Office/Outpatient Established SF MDM 10-19 Min Completed 11/11/2020 69042 Office/Outpatient Established Lo w MDM 20-29 Min Completed 11/10/2020 46801 Office/Outpatient Established Mo d MDM 30-39 Min Completed 11/01/2020 35519 Office/Outpatient Established Lo w MDM 20-29 Min Completed 10/13/2020 30527 Chronic Care MGMT 20 Mins Clinical Staff Time Per Calendar Month Completed 10/13/2020 87194 Chronic Care Management Services Ea Addl 20 Min Completed 10/04/2020 34189 Office/Outpatient Established Mo d MDM 30-39 Min Completed 08/31/2020 19860 Chronic Care MGMT 20 Mins Clinical Staff Time Per Calendar Month Completed 07/14/2020 77391 Chronic Care MGMT 20 Mins Clinical Staff Time Per Calendar Month Completed 07/14/2020 80297 Chronic Care Management Services Ea Addl 20 Min Completed 06/17/2020 69554 Chronic Care MGMT 20 Mins Clinical Staff Time Per Calendar Month Completed 06/17/2020 26028 Chronic Care Management Services Ea Addl 20 Min Completed 08/24/2011 [id number] Mammogram Completed 07/23/2009 [id number] Bone Mineral Density Test Comple [employer] Description No Information Available Encounters Type Date Location Provider Dx Diagnosis Office Visit 11/12/2020 2:00p Pee Barr JR PA L03.115 Cellulitis of right lower li mb R60.0 Localized edema Office Visit 11/11/2020 1:40p Pee Barr JR PA L03.115 Cellulitis of right lower li mb R60.0 Localized edema Office Visit 11/10/2020 1:40p [facility] collier JR PA L03.115 Cellulitis of right lower li mb R60.0 Localized edema Office Visit 11/01/2020 10:40a [facility] PA S81.011A Laceration without foreign b earlene, right knee, init encntr S61.012A Laceration w/o fb of left th umb w/o damage to nail, init S09.90xA Unspecified injury of head, initial encounter W10.1xxA Fall (on)(from) sidewalk cur b, initial encounter Y92.[address] of occurrence of the external cause I25.10 Athscl heart disease of [place] coronary artery w/o [facility] Office Visit 10/04/2020 11:30a [facility] Bill Tapia M.D. E78.00 Pure hypercholesterolemia, unspecified E03.9 Hypothyroidism, unspecified G47.33 Obstructive sleep apnea (ricki lt) (pediatric) K21.9 Gastro-esophageal reflux dis ease without esophagitis F34.1 Dysthymic disorder I25.10 Athscl heart disease of [place] coronary artery w/o [facility] I42.9 Cardiomyopathy, unspecified G43.001 Migraine w/o aura, not intra ctable, with status migrainosus M54.5 Low back pain M79.7 Fibromyalgia Assessments Date Code Description Provider 11/12/2020 L03.115 Cellulitis of right lower limb R RADHA Burk JR 11/12/2020 R60.0 Localized edema RADHA Chavez JR 11/11/2020 L03.115 Cellulitis of right lower limb R RADHA Burk JR 11/11/2020 R60.0 Localized edema RADHA Chavez JR 11/10/2020 L03.115 Cellulitis of right lower limb R RADHA Burk JR 11/10/2020 R60.0 Localized edema RADHA Chavez JR 11/01/2020 S81.011A Laceration without f oreign body, right knee, initial encounter RADHA Marin JR 11/01/2020 S61.012A Laceration without f oreign body of left thumb without damage to nail, initial encounter RADHA Marin JR 11/01/2020 S09.90xA Unspecified injury of head, init ial encounter RADHA Marin JR 11/01/2020 W10.1xxA Fall (on)(from) sidewalk curb, i nitial encounter RADHA Marin JR 11/01/2020 Y92.[address] of occu rrence of the external cause RADHA Marin JR 11/01/2020 I25.10 Atherosclerotic hear t disease of [place] coronary artery without angina pectoris RADHA Marin JR 10/13/2020 G47.33 Obstructive sleep apnea (adult) (pediatric) Bill Tapia M.D. 10/13/2020 K21.9 Gastro-esophageal reflux disease without esophagitis Bill Tapia M.D. 10/13/2020 E03.9 Hypothyroidism, unspecified Jonathan Tapia M.D. 10/04/2020 E78.00 Pure hypercholesterolemia, unspe cified Bill Tapia M.D. 10/04/2020 E03.9 Hypothyroidism, unspecified Jonathan Tapia M.D. 10/04/2020 G47.33 Obstructive sleep apnea (adult) (pediatric) Bill Tapia M.D. 10/04/2020 K21.9 Gastro-esophageal reflux disease without esophagitis Bill Tapia M.D. 10/04/2020 F34.1 Dysthymic disorder Bill fisher M.D. 10/04/2020 I25.10 Atherosclerotic hear t disease of [place] coronary artery without angina pectoris Bill Tapia M.D. 10/04/2020 I42.9 Cardiomyopathy, unspecified Jonathan Tapia M.D. 10/04/2020 G43.001 Migraine without aur a, not intractable, with status migrainosus Bill Tapia M.D. 10/04/2020 M54.5 Low back pain Bill Tapia M.D. 10/04/2020 M79.7 Fibromyalgia Bill Tapia M.D. 09/30/2020 E78.00 Pure hypercholesterolemia, unspe cified Bill Tapia M.D. 09/30/2020 E78.00 Pure hypercholesterolemia, unspe cified Lab Schedule 09/30/2020 E03.9 Hypothyroidism, unspecified Jonathan Tapia M.D. 09/30/2020 E03.9 Hypothyroidism, unspecified Lab Schedule 08/31/2020 G47.33 Obstructive sleep apnea (adult) (pediatric) Bill Tapia M.D. 08/31/2020 K21.9 Gastro-esophageal reflux disease without esophagitis Bill Tapia M.D. 08/31/2020 E03.9 Hypothyroidism, unspecified Jonathan Tapia M.D. 07/14/2020 G47.33 Obstructive sleep apnea (adult) (pediatric) Bill Tapia M.D. 07/14/2020 K21.9 Gastro-esophageal reflux disease without esophagitis Bill Tapia M.D. 07/14/2020 E78.00 Pure hypercholesterolemia, unspe cified Bill Tapia M.D. 06/17/2020 E78.00 Pure hypercholesterolemia, unspe cified Bill Tapia M.D. 06/17/2020 G47.33 Obstructive sleep apnea (adult) (pediatric) Bill Tapia M.D. 06/17/2020 F34.1 Dysthymic disorder Bill fisher M.D. 06/17/2020 K21.9 Gastro-esophageal reflux disease without esophagitis Bill Tapia M.D. Plan of Treatment Future Appointment(s):* 02/10/2021 10:30 am - [facility] 10/04/2020 - Bill Tapia M.D.* E78.00 Pure hypercholesterolemia, unspecified * E03.9 Hypothyroidism, unspecified * G47.33 Obstructive sleep apnea (adult) (pediatric) * K21.9 Gastro-esophageal reflux disease without esophagitis * F34.1 Dysthymic disorder * I25.10 Athscl heart disease of [place] coronary artery w/o ang pctrs * I42.9 Cardiomyopathy, unspecified * G43.001 Migraine w/o aura, not intractable, with status migrainosus * M54.5 Low back pain * M79.7 Fibromyalgia * * Comments:* 1. Hypercholesterolemia: She has been doing excellent on high- dose atorvastatin daily, will continue and monitor.2. Hypothyroidism: Decreased TSH level, although normal and FT4 normalized. We will continue to monitor.3. JAY: Doing generally well on CPAP most of the night. We discussed importance of regular use and she understands this. We will continue to monitor.4. GERD without esophagitis: Doing with Protonix 40 mg BID and Carafate 3 times a day. Her colonoscopy postponed secondary to her recent stent placement and will follow up appropriately with Dr. Brant Farnsworth. She had scopes for upper GI issues as well prior. We will monitor.5. Dysthymic disorder: Appears to be doing well on current regimen, will continue and monitor.6. Athscl heart disease of [place] coronary artery w/o ang pctrs: Doing well since cardiac catheterization on 06/22/[address] Gualberto Orlando, which showed critical in-stent restenosis in the mid LAD status post TUNG. She now has 2 stents in the LAD and has total 4 stents. She will continue to follow up with Dr. Reyes appropriately. We will continue to monitor.7. Cardiomyopathy: LVEF of 45-50% with heart cath in June 2020. Next echo this winter and will continue to follow up with Dr. Reyes appropriately.8. Migraine w/o aura, not intractable, with status migrainosus: Patient is on a number of medications and is following up Reuben Mederos at [facility] for Botox injections who left the practice. She was under the care of [facility] prior for migraine. She will continue to work with at [facility] to optimize her headaches.9. Low back pain: Chronic, generally stable. She has seen number of providers prior and now sees Dr. Crawford at pain clinic. She will follow up appropriately.10. Fibromyalgia: Stable and following up with multiple pain clinics.Ongoing cares: I am going to see her again in 4 months with CBC and CMP. If she has new problems or issues sooner she will let us know. Functional Status Description No Information Available Mental Status Description No Information Available Referrals Description No Information Available
--- OUTSIDE RECORDS SUMMARY | 2020-12-09 09:34 | CCD | Continuity of Care Document ---
Author Author Lianne LUCIANO PAMiriamC Organization Unknown Address [address] [place] [address] Phone [phone] Care Team Providers Care Brewmaster Name Role Phone Bill Tapia MD [facility] [phone] Problems Description No Active Problems Social History [...] H/L Range Note CBC With Differential 11/23/[address] [address] (315)- - White Blood Count 10.5 10 [...] 36.0-66.0 Lymph % 22.5 % Low 24.0-44.0 [place] % 7.2 % Normal 2.0-8.0 Eos % 0.4 % Normal 0.0-3.0 Baso % 0.8 % Normal 0.0-1.0 Immature Granulocyte % 0.4 % Normal 0-3.0 Nucleated Red Blood Cell % 0.0 % Normal 0-0 Neutrophils # 7.2 10 Normal 1.5-8.5 Lymph # 2.4 10 Normal 1.5-5.0 [place] # 0.8 10 Normal 0.0-0.8 Eos # 0.0 10 Normal 0.0-0.5 Baso # 0.1 10 Normal 0.0-0.2 Laboratory test finding 11/23/2020 [facility] [address] [place] [address] (315)- - Erythrocyte Sedimentation Rate 27 mm/hr Normal 0-30 C Reactive Protein Quantitativ 0.94 mg/dL High 0.00-0.30 Procedures Date Code Description Status 12/07/2020 42513 Office/Outpatient Established Mo d MDM 30-39 Min Completed 12/02/2020 28692 Office/Outpatient Established Lo w MDM 20-29 Min Completed 11/23/2020 37388 Office/Outpatient Established Lo w MDM 20-29 Min Completed 11/11/2020 48639 Office/Outpatient Established Mo d MDM 30-39 Min Completed 11/11/2020 69603 X-Ray Knee Complete W/Obliques & Tunnel And/Or Standing Views Completed 11/04/2020 55717 Office/Outpatient Established Lo w MDM 20-29 Min Completed 10/29/2020 66313 Therapeutic Procedure, Each 15 M inutes Completed 10/27/2020 33356 Therapeutic Procedure, Each 15 M inutes Completed 10/22/2020 37219 Therapeutic Procedure, Each 15 M inutes Completed 10/19/2020 77014 Therapeutic Procedure, Each 15 M inutes Completed 10/15/2020 39350 Therapeutic Procedure, Each 15 M inutes Completed 10/12/2020 33402 Therapeutic Procedure, Each 15 M inutes Completed 10/08/2020 13548 Therapeutic Procedure, Each 15 M inutes Completed 10/05/2020 05215 Manual Therapy Each 15 Minutes C ompleted 10/05/2020 21619 Therapeutic Procedure, Each 15 M inutes Completed 09/29/2020 59429 Inject/Drain Joint/Bursa Major C ompleted 09/29/2020 32189 Therapeutic Procedure, Each 15 M inutes Completed 09/29/2020 18666 Office/Outpatient Established Lo w MDM 20-29 Min Completed 09/29/2020 88052 Manual Therapy Each 15 Minutes C ompleted 09/27/2020 21167 Therapeutic Procedure, Each 15 M inutes Completed 09/24/2020 18923 Therapeutic Procedure, Each 15 M inutes Completed 09/22/2020 52001 Therapeutic Procedure, Each 15 M inutes Completed 09/16/2020 18660 Manual Therapy Each 15 Minutes C ompleted 09/16/2020 19888 Therapeutic Procedure, Each 15 M inutes Completed 09/13/2020 88149 Manual Therapy Each 15 Minutes C ompleted 09/13/2020 60926 Therapeutic Procedure, Each 15 M inutes Completed 09/10/2020 46882 Therapeutic Procedure, Each 15 M inutes Completed 09/10/2020 26531 Manual Therapy Each 15 Minutes C ompleted 09/06/2020 33169 Manual Therapy Each 15 Minutes C ompleted 09/06/2020 48324 Therapeutic Procedure, Each 15 M inutes Completed 09/03/2020 92541 Manual Therapy Each 15 Minutes C ompleted 09/03/2020 80779 Therapeutic Procedure, Each 15 M inutes Completed 09/01/2020 00018 Manual Therapy Each 15 Minutes C ompleted 09/01/2020 77785 Therapeutic Procedure, Each 15 M inutes Completed 08/26/2020 32628 Physical Therapy Eval - Low Comp lexity Completed 08/17/2020 61939 Office/Outpatient Established Lo w MDM 20-29 Min Completed 08/17/2020 30316 X-Ray Hips Bilateral With Pelvis 3-4 Views Completed Medical Devices Description No Information Available Encounters Type Date Location Provider Dx Diagnosis Office Visit 12/07/2020 9:30a [facility] Tenzin Luciano PA-C S8 0.01xD Contusion of right knee, subsequent encounter L03.115 Cellulitis of right lower li mb M70.62 Trochanteric bursitis, left hip M70.61 Trochanteric bursitis, right hip Office Visit 11/23/2020 11:15a Arp Vivienne Aguero PA-C S80.01x D Contusion of right knee, subsequent encounter L03.115 Cellulitis of right lower li mb Office Visit 11/11/2020 2:40p Arp Tenzin Luciano PA-C L0 3.115 Cellulitis of right lower limb M79.661 Pain in right lower leg Office Visit 11/04/2020 2:00p Arp Thomas Benavides, PDianeADiane S80.01xA Contusion of right knee, initial encounter S60.212A Contusion of left wrist, ini tial encounter S60.211A Contusion of right wrist, in itial encounter Office Visit 09/29/2020 11:00a Arp RADHA Pope M16.0 Bilateral primary osteoarthritis of hip M70.61 Trochanteric bursitis, right hip M70.62 Trochanteric bursitis, left hip M25.562 Pain in left knee Office Visit 08/17/2020 2:30p Arp RADHA Pope M16.0 Bilateral primary osteoarthritis of hip M70.61 Trochanteric bursitis, right hip M70.62 Trochanteric bursitis, left hip Assessments Date Code Description Provider 12/07/2020 S80.01xD Contusion of right knee, subsequ ent encounter Tenzin Luciano PA-C 12/07/2020 L03.115 Cellulitis of right lower limb B mario Luciano PA-C 12/07/2020 M70.62 Trochanteric bursitis, left hip Tenzin MikaDiane Luciano, REGINO 12/07/2020 M70.61 Trochanteric bursitis, right hip Mohankelly BrennanDiane Luciano, REGINO 12/02/2020 M70.62 Trochanteric bursitis, left hip Herrera CappsDiane Grant, RADHA 12/02/2020 M70.61 Trochanteric bursitis, right hip Herrera CappsDiane Grant, PA 11/26/2020 M70.62 Trochanteric bursitis, left hip Fam Mccormack Han P.T. 11/26/2020 M70.61 Trochanteric bursitis, right hip Fam Mccormack Han P.T. 11/26/2020 M16.0 Bilateral primary osteoarthritis of hip Fam Mccormack Han P.T. 11/23/2020 S80.01xD Contusion of right knee, subsequ ent encounter Vivienne Aguero PA-C 11/23/2020 L03.115 Cellulitis of right lower limb Renee Aguero PA-C 11/11/2020 L03.115 Cellulitis of right lower limb B mario Luciano PA-C 11/11/2020 M79.661 Pain in right lower leg Tenzin Luciano PA-C 11/04/2020 S80.01xA Contusion of right knee, initial encounter Thomas Benavides, P.A. 11/04/2020 S60.212A Contusion of left wrist, initial encounter Thomas Benavides P.A. 11/04/2020 S60.211A Contusion of right wrist, initia l encounter Thomas Benavides, P.A. 10/29/2020 M16.0 Bilateral primary osteoarthritis of hip Latonya Luci Power, AUDIO PRODUCTION ENGINEER 10/29/2020 M70.61 Trochanteric bursitis, right hip Latonya Luci Power, AUDIO PRODUCTION ENGINEER 10/29/2020 M70.62 Trochanteric bursitis, left hip Latonya Luci Power, AUDIO PRODUCTION ENGINEER 10/27/2020 M16.0 Bilateral primary osteoarthritis of hip Latonya Luci Power, AUDIO PRODUCTION ENGINEER 10/27/2020 M70.61 Trochanteric bursitis, right hip Latonya Luci Power, AUDIO PRODUCTION ENGINEER 10/27/2020 M70.62 Trochanteric bursitis, left hip Latonya Luci Power, AUDIO PRODUCTION ENGINEER 10/22/2020 M16.0 Bilateral primary osteoarthritis of hip Latonya Luci Power, AUDIO PRODUCTION ENGINEER 10/22/2020 M70.61 Trochanteric bursitis, right hip Latonya Luci Power, AUDIO PRODUCTION ENGINEER 10/22/2020 M70.62 Trochanteric bursitis, left hip Latonya Luci Power, AUDIO PRODUCTION ENGINEER 10/19/2020 M16.0 Bilateral primary osteoarthritis of hip Latonya Luci Power, AUDIO PRODUCTION ENGINEER 10/19/2020 M70.61 Trochanteric bursitis, right hip Latonya Luci Power, AUDIO PRODUCTION ENGINEER 10/19/2020 M70.62 Trochanteric bursitis, left hip Latonya Luci Power, AUDIO PRODUCTION ENGINEER 10/15/2020 M16.0 Bilateral primary osteoarthritis of hip Latonya Luci Powre, AUDIO PRODUCTION ENGINEER 10/15/2020 M70.61 Trochanteric bursitis, right hip Latonay Luci Power, AUDIO PRODUCTION ENGINEER 10/15/2020 M70.62 Trochanteric bursitis, left hip Latonya Luci Power, AUDIO PRODUCTION ENGINEER 10/12/2020 M16.0 Bilateral primary osteoarthritis of hip Latonya Luci Power, AUDIO PRODUCTION ENGINEER 10/12/2020 M70.61 Trochanteric bursitis, right hip Latonya Luci Power, AUDIO PRODUCTION ENGINEER 10/12/2020 M70.62 Trochanteric bursitis, left hip Latonya Luci Power, AUDIO PRODUCTION ENGINEER 10/08/2020 M16.0 Bilateral primary osteoarthritis of hip Latonya Luci Power, AUDIO PRODUCTION ENGINEER 10/08/2020 M70.61 Trochanteric bursitis, right hip Latonya Luci Power, AUDIO PRODUCTION ENGINEER 10/08/2020 M70.62 Trochanteric bursitis, left hip Latonya Luci Power, AUDIO PRODUCTION ENGINEER 10/05/2020 M16.0 Bilateral primary osteoarthritis of hip Famrocio Short P.T. 10/05/2020 M70.61 Trochanteric bursitis, right hip Fam Short P.T. 10/05/2020 M70.62 Trochanteric bursitis, left hip Fam Short P.T. 09/29/2020 M16.0 Bilateral primary osteoarthritis of hip Latonya Luci Power, AUDIO PRODUCTION ENGINEER 09/29/2020 M16.0 Bilateral primary osteoarthritis of hip Herrera Marte Rudy, PA 09/29/2020 M70.61 Trochanteric bursitis, right hip Herrera Marte Rudy, PA 09/29/2020 M70.61 Trochanteric bursitis, right hip Latonya Luci Power, AUDIO PRODUCTION ENGINEER 09/29/2020 M70.62 Trochanteric bursitis, left hip Herrera Marte Rudy, PA 09/29/2020 M25.562 Pain in left knee Herrera Marte Rudy , PA 09/29/2020 M70.62 Trochanteric bursitis, left hip Latonya Luci Power, AUDIO PRODUCTION ENGINEER 09/27/2020 M16.0 Bilateral primary osteoarthritis of hip Fam J. Cook P.T. 09/27/2020 M70.61 Trochanteric bursitis, right hip Fam J. Cook P.T. 09/27/2020 M70.62 Trochanteric bursitis, left hip Fam J. Cook P.T. 09/24/2020 M16.0 Bilateral primary osteoarthritis of hip Fam J. Cook P.T. 09/24/2020 M70.61 Trochanteric bursitis, right hip Fam J. Cook P.T. 09/24/2020 M70.62 Trochanteric bursitis, left hip Fam J. Cook P.T. 09/22/2020 M16.0 Bilateral primary osteoarthritis of hip Fam J. Cook P.T. 09/22/2020 M70.61 Trochanteric bursitis, right hip Fam J. Cook P.T. 09/22/2020 M70.62 Trochanteric bursitis, left hip Fam J. Cook P.T. 09/16/2020 M16.0 Bilateral primary osteoarthritis of hip Latonya Luci Power, AUDIO PRODUCTION ENGINEER 09/16/2020 M70.61 Trochanteric bursitis, right hip Latonya Luci Power, AUDIO PRODUCTION ENGINEER 09/16/2020 M70.62 Trochanteric bursitis, left hip Latonya Luci Power, AUDIO PRODUCTION ENGINEER 09/13/2020 M16.0 Bilateral primary osteoarthritis of hip Latonya Luci Power, AUDIO PRODUCTION ENGINEER 09/13/2020 M70.61 Trochanteric bursitis, right hip Latonya Luci Poewr, AUDIO PRODUCTION ENGINEER 09/13/2020 M70.62 Trochanteric bursitis, left hip Latonya Luci Power, AUDIO PRODUCTION ENGINEER 09/10/2020 M16.0 Bilateral primary osteoarthritis of hip Latonya Luci Power, AUDIO PRODUCTION ENGINEER 09/10/2020 M70.61 Trochanteric bursitis, right hip Latonya Luci Power, AUDIO PRODUCTION ENGINEER 09/10/2020 M70.62 Trochanteric bursitis, left hip Latonya Luci Power, AUDIO PRODUCTION ENGINEER 09/06/2020 M16.0 Bilateral primary osteoarthritis of hip Latonya Luci Power, AUDIO PRODUCTION ENGINEER 09/06/2020 M70.61 Trochanteric bursitis, right hip Latonya Luci Power, AUDIO PRODUCTION ENGINEER 09/06/2020 M70.62 Trochanteric bursitis, left hip Latonya Power, AUDIO PRODUCTION ENGINEER 09/03/2020 M16.0 Bilateral primary osteoarthritis of hip Latonya Luci Power, AUDIO PRODUCTION ENGINEER 09/03/2020 M70.61 Trochanteric bursitis, right hip Latonya Luci Power, AUDIO PRODUCTION ENGINEER 09/03/2020 M70.62 Trochanteric bursitis, left hip Latonya Luci Power, AUDIO PRODUCTION ENGINEER 09/01/2020 M16.0 Bilateral primary osteoarthritis of hip Latonya Luci Power, AUDIO PRODUCTION ENGINEER 09/01/2020 M70.61 Trochanteric bursitis, right hip Latonya Power, AUDIO PRODUCTION ENGINEER 09/01/2020 M70.62 Trochanteric bursitis, left hip Latonya Luci Power, AUDIO PRODUCTION ENGINEER 08/26/2020 M16.0 Bilateral primary osteoarthritis of hip Fam Short P.T. 08/26/2020 M70.61 Trochanteric bursitis, right hip Fam Short P.T. 08/26/2020 M70.62 Trochanteric bursitis, left hip Fam Ksenia Short P.T. 08/17/2020 M16.0 Bilateral primary osteoarthritis of hip Herrera Grant, RADHA 08/17/2020 M70.61 Trochanteric bursitis, right hip Herrera Grant, RADHA 08/17/2020 M70.62 Trochanteric bursitis, left hip RADHA Pope Plan of Treatment 12/07/2020 - Tenzin Luciano PA-C* S80.01xD Contusion of right knee, subsequent encounter* New Labs:* CBC With Differential, Ordered: 12/07/20 * Erythrocyte Sedimentation Rate, Ordered: 12/07/20 * High Sensitivity C-Reactive Protein, Ordered: 12/07/20 * Follow up:* in 4 weeks for rt knee recheck with bms * L03.115 Cellulitis of right lower limb * M70.62 Trochanteric bursitis, left hip * M70.61 Trochanteric bursitis, right hip Functional Status Description No Information Available Mental Status Description No Information Available Referrals Refer to Dr Reason for Referral Status Appt Date Tenzin Luciano PA-C CT RT KNEE With and Without Contrast per medicare no auth req based on medical necessity, per Karol Chau at [facility] no auth req as this is a supplemental plan, ref [id number],passed to [facility] to schedule sw. Created [address] [place] [address] [phone] [address]enzin Luciano PA-C CT RT KNEE With and Without Contrast per medicare no auth req based on medical necessity, per Karol Chau at [facility] no auth req as this is a supplemental plan, ref [id number],passed to [facility] to schedule sw. Created [address] [place] [address] [phone] Fam Short RPT NO AUTH REQUIRED. FOLLOWS R GUIDELINES. REF #[id number]. HW Created [address] [place] [address] [phone] Herrera Grant I, [facility] Hips no auth req based on medical necessity [facility] sw. Created [address] [id number] [phone]
--- OUTSIDE RECORDS SUMMARY | 2020-12-09 09:34 | CCD ---
"Continuity of Care Document (CCD) Created on: 12/06/2020 Lianne Tuttle External Reference #: [id number] : [id number] Sex: Female Author Author Lianne GALVIN P.A.-C. Organization Unknown Address [address] [place] [id number] Phone [phone] Care Team Providers Care Set Up Mechanic Coil Winding Machines Name Role Phone Bill Tapia M.D. AUTM [phone] Problems Active Problems Provider Date Migraine without aura Nidhi Gar M.D. Onset: 02/20/2014 Carpal tunnel syndrome Nidhi Gar M.D. Onset: 02/20/2014 Social History Type Date Description Comments Sex Unknown Tobacco Use Start: Unknown Patient has never smoked Allergies and adverse reactions Active Allergies Criticality Reaction | Severity Comments Date Morphine Unable to assess criticality 12/01/2009 Darvon Unable to assess criticality 12/01/2009 Darvocet Unable to assess criticality 12/01/2009 Lyrica Unable to assess criticality eyes bother 12/01/2009 NSAIDs Unable to assess criticality 12/01/2009 Dust Mites Unable to assess criticality 08/13/2013 Mold Unable to assess criticality 08/13/2013 Imitrex Unable to assess criticality palpitations 11/13/2013 Medications Active Medications SIG Qnty Indications Ordering Provide r Date Nortriptyline HCL 25mg Capsules Take One Capsule By Mouth Every Evening 90caps Nidhi Gar M.D. 01/27/2019 Cpap Mask And Supplies richard, g47.33 1units Nidhi Gar M.D. 08/08/2018 Topiramate 100mg Tablets Take One Tablet By Mouth Twice A Day (Maximum Daily Dose =2) 180tabs G43.019 Cesar Gar M.D. 06/05/2018 Lidoderm 5% Patches apply to neck and back for 12 hours on and 12 hours off 180units G43.019 Fran Ellis 08/14/2012 Baclofen 10mg Tablets Take One Tablet By Mouth Twice A Day 180tabs G43.019 Nidhi Gar M.D. 02/09/2012 History Medications Xray Right Foot right foot injury M21.371 Nidhi Gar M.D. 08/31/2020 - 12/01/2020 Immunizations Description No Information Available Vital Signs Date Vital Result Comment 11/30/2020 6:26am BP Systolic 140 mmHg BP Diastolic 80 mmHg Heart Rate 80 /min Respiratory Rate 16 /min 08/31/2020 6:57am BP Systolic 130 mmHg BP Diastolic 80 mmHg Heart Rate 68 /min Respiratory Rate 20 /min Results Description No Information Available Procedures Date Code Description Status 11/30/2020 12523 Office/Outpatient Established Mo d MDM 30-39 Min Completed 11/30/2020 3288F Fall Risk Assessment Documented Completed 08/31/2020 80594 Office/Outpatient Established Mo d MDM 30-39 Min Completed 08/31/2020 3288F Fall Risk Assessment Documented Completed Medical Devices Description No Information Available Encounters Type Date Location Provider Dx Diagnosis Office Visit 11/30/2020 1:45p Main office - [place] Ragini bernal, P.A.-C. G43.719 Chronic migraine w/o aura, intractable, w/o stat migr M54.81 Occipital neuralgia M54.2 Cervicalgia M79.7 Fibromyalgia M54.50 Low back pain, unspecified G63 Polyneuropathy in diseases c lassified elsewhere G47.33 Obstructive sleep apnea (ricki lt) (pediatric) Office Visit 08/31/2020 10:00a Main office - [place] Ragini bernal P.A.-C. M79.7 Fibromyalgia M54.2 Cervicalgia M54.5 Low back pain G63 Polyneuropathy in diseases c lassified elsewhere G43.719 Chronic migraine w/o aura, i ntractable, w/o stat migr M54.81 Occipital neuralgia G47.33 Obstructive sleep apnea (ricki lt) (pediatric) M21.371 Foot drop, right foot M79.605 Pain in left leg Assessments Date Code Description Provider 11/30/2020 G43.719 Chronic migraine wit hout aura, intractable, without status migrainosus Ragini Galvin P.A.-C. 11/30/2020 M54.81 Occipital neuralgia Ragini bernal P.A.-C. 11/30/2020 M54.2 Cervicalgia Ragini Galvin, P.A.-C. 11/30/2020 M79.7 Fibromyalgia Ragini Galvin P.A.-C. 11/30/2020 M54.50 Low back pain, unspecified Ragini aGlvin P.A.-C. 11/30/2020 G63 Polyneuropathy in diseases class ified elsewhere Ragini Galvin P.A.-C. 11/30/2020 G47.33 Obstructive sleep apnea (adult) (pediatric) Sue Blanco.A.-C. 08/31/2020 M79.7 Fibromyalgia Ragini Galvin P.A.-C. 08/31/2020 M54.2 Cervicalgia Ragini Galvin P.A.-C. 08/31/2020 M54.5 Low back pain Ragini Galvin P.A.-C. 08/31/2020 G63 Polyneuropathy in diseases class ified elsewhere Ragini Galvin P.A.-C. 08/31/2020 G43.719 Chronic migraine wit hout aura, intractable, without status migrainosus Ragini aGlvin P.A.-C. 08/31/2020 M54.81 Occipital neuralgia Ragini bernal P.A.-C. 08/31/2020 G47.33 Obstructive sleep apnea (adult) (pediatric) Sue Blanco.A.-C. 08/31/2020 M21.371 Foot drop, right foot Sue Martinez.ADiane-CDiane 08/31/2020 M79.605 Pain in left leg Ragini Galvin P.A.-C. Plan of Treatment Future Appointment(s):* 02/24/2021 9:00 am - Ragini Galvin P.A.-C. at [facility] 11/30/2020 - Ragini Galvin P.A.-C.* G43.719 Chronic migraine without aura, intractable, without status migrainosus* Comments:* Continue Topamax and nortriptyline with Botox injections at the pain clinic. * M54.81 Occipital neuralgia* Comments:* Follow up at [facility]. * M54.2 Cervicalgia* Comments:* Follow up at [facility]. * M79.7 Fibromyalgia* Comments:* She continues baclofen, gabapentin, nortriptyline, with oxycodone as needed. * M54.50 Low back pain, unspecified* Comments:* Follow up at [facility]. * G63 Polyneuropathy in diseases classified elsewhere* Comments:* She continues gabapentin and nortriptyline. * G47.33 Obstructive sleep apnea (adult) (pediatric)* Comments:* Continue CPAP. * Follow up:* 3 months Functional Status Description No Information Available Mental Status Description No Information Available Referrals Description No Information Available"
--- OUTSIDE RECORDS SUMMARY | 2020-12-09 09:34 | CCD | Continuity of Care Document ---
Author Author Lianne GALVIN P.A.-C. Organization Unknown Address [address] [place] [address] Phone [phone] Care Team Providers Care Coremaker Bench Name Role Phone Bill Tapia M.D. AUTM [phone] Problems Active Problems Provider Date Migraine without [...] SIG Qnty Indications Ordering Provide r Date Xray Right Foot right foot injury M21.371 Nidhi Gar M.D. 08/31/2020 Nortriptyline HCL 25mg Capsules Take One Capsule By Mouth Every Evening 90caps Nidhi Gar M.D. 01/27/2019 Cpap Mask And Supplies richard, g47.33 1units Nidhi Gar M.D. 08/08/2018 Topiramate 100mg Tablets Take One Tablet By Mouth Twice A Day (Maximum Daily Dose =2) 180tabs G43.019 Cesar Gar M.D. 06/05/2018 Botox 200Unit Solution Rec inject 155 units intramuscular into head neck and shoulders for migraines every 3 months wasting 45 units 1units Barby Lozoya M.D. 09/07/2015 Lidoderm 5% Patches apply to neck and back for 12 hours on and 12 hours off 180units G43.019 Fran Ellis 08/14/2012 Baclofen 10mg Tablets Take One Tablet By Mouth Twice A Day 180tabs G43.019 Nidhi Gar M.D. 02/09/2012 Zoloft 50mg Tablets 1 by mouth every day Unknown Immunizations Description No Information Available Vital Signs Date Vital Result Comment 08/31/2020 6:57am BP Systolic 130 mmHg BP Diastolic 80 mmHg Heart Rate 68 /min Respiratory Rate 20 /min 11/20/2019 8:26am BP Systolic 118 mmHg BP Diastolic 80 mmHg Heart Rate 76 /min Respiratory Rate 16 /min Results Description No Information Available Procedures Date Code Description Status 08/31/2020 92986 Office/Outpatient Established Mo d MDM 30-39 Min Completed 08/31/2020 3288F Fall Risk Assessment Documented Completed Medical Devices Description No Information Available Encounters Type Date Location Provider Dx Diagnosis Office Visit 08/31/2020 10:00a Main office - [place] Ragini bernal P.A.-C. M79.7 Fibromyalgia M54.2 Cervicalgia [...] wit hout aura, intractable, without status migrainosus Sue Blanco.A.-C. 11/30/2020 M54.81 Occipital neuralgia Sue Hardin.A.-C. 11/30/2020 M54.2 Cervicalgia Sue Blanco.A.-CDiane 11/30/2020 G56.03 Carpal tunnel syndrome, bilatera l upper limbs Jase BlancoA.-C. 11/30/2020 M79.7 Fibromyalgia Ragini Galvin, P.A.-C. 11/30/2020 M54.50 Low back pain, unspecified Ragini Galvin, P.A.-C. 11/30/2020 G63 Polyneuropathy in diseases class ified elsewhere Ragini Galvin P.A.-C. 11/30/2020 M21.371 Foot drop, right foot Ragini Ksenia casas, P.A.-C. 11/30/2020 M79.605 Pain in left leg Ragini Galvin , P.A.-C. 11/30/2020 G47.33 Obstructive sleep apnea (adult) (pediatric) Ragini Galvin P.A.-C. 08/31/2020 M79.7 Fibromyalgia Ragini Galvin, P.A.-C. 08/31/2020 M54.2 Cervicalgia Ragini Galvin P.A.-C. 08/31/2020 M54.5 Low back pain Ragini Galvin, P.A.-C. 08/31/2020 G63 Polyneuropathy in diseases class ified elsewhere Ragini Galvin P.A.-C. 08/31/2020 G43.719 Chronic migraine wit hout aura, intractable, without status migrainosus Ragini Galvin P.A.-C. 08/31/2020 M54.81 Occipital neuralgia Ragini bernal, P.A.-C. 08/31/2020 G47.33 Obstructive sleep apnea (adult) (pediatric) Ragini Galvin P.A.-C. 08/31/2020 M21.371 Foot drop, right foot Ragini casas, P.A.-C. 08/31/2020 M79.605 Pain in left leg Ragini Galvin P.A.-C. Plan of Treatment No Information Available Functional Status Description No Information Available Mental Status Description No Information Available Referrals Description No Information Available"
--- OUTSIDE RECORDS SUMMARY | 2020-12-09 09:34 | CCD | Continuity of Care Document ---
Author Author Lianne AGUERO PAMiriamC Organization Unknown Address [address] [place] [id number] Phone [phone] Care Team Providers Care Laborer Tanbark Name Role Phone Bill Tapia MD [facility] [phone] Problems Description No Active Problems Social History Type Date Description Comments Sex Unknown ETOH Use Denies alcohol use Tobacco Use Start: Unknown Patient has never smoked Allergies, Adverse Reactions, Alerts Active Allergies Criticality Reaction | Severity Comments [...] BMI (Body Mass Index) 36.3 kg/m2 Results Description No Information Available Procedures Date Code Description Status 11/23/2020 56033 Office/Outpatient Established Lo w MDM 20-29 Min Completed 11/11/2020 34462 Office/Outpatient Established Mo d MDM 30-39 Min Completed 11/11/2020 77375 X-Ray Knee Complete W/Obliques & Tunnel And/Or Standing Views Completed 11/04/2020 90319 Office/Outpatient Established Lo w MDM 20-29 Min Completed 10/29/2020 58665 Therapeutic Procedure, Each 15 M inutes Completed 10/27/2020 19076 Therapeutic Procedure, Each 15 M inutes Completed 10/22/2020 65831 Therapeutic Procedure, Each 15 M inutes Completed 10/19/2020 30736 Therapeutic Procedure, Each 15 M inutes Completed 10/15/2020 26678 Therapeutic Procedure, Each 15 M inutes Completed 10/12/2020 36507 Therapeutic Procedure, Each 15 M inutes Completed 10/08/2020 85655 Therapeutic Procedure, Each 15 M inutes Completed 10/05/2020 07792 Manual Therapy Each 15 Minutes C ompleted 10/05/2020 60428 Therapeutic Procedure, Each 15 M inutes Completed 09/29/2020 38824 Office/Outpatient Established Lo w MDM 20-29 Min Completed 09/29/2020 27457 Manual Therapy Each 15 Minutes C ompleted 09/29/2020 80671 Therapeutic Procedure, Each 15 M inutes Completed 09/29/2020 99866 Inject/Drain Joint/Bursa Major C ompleted 09/27/2020 02000 Therapeutic Procedure, Each 15 M inutes Completed 09/24/2020 91644 Therapeutic Procedure, Each 15 M inutes Completed 09/22/2020 35301 Therapeutic Procedure, Each 15 M inutes Completed 09/16/2020 26368 Manual Therapy Each 15 Minutes C ompleted 09/16/2020 37935 Therapeutic Procedure, Each 15 M inutes Completed 09/13/2020 26995 Manual Therapy Each 15 Minutes C ompleted 09/13/2020 44482 Therapeutic Procedure, Each 15 M inutes Completed 09/10/2020 75575 Manual Therapy Each 15 Minutes C ompleted 09/10/2020 13793 Therapeutic Procedure, Each 15 M inutes Completed 09/06/2020 78599 Manual Therapy Each 15 Minutes C ompleted 09/06/2020 47615 Therapeutic Procedure, Each 15 M inutes Completed 09/03/2020 35664 Manual Therapy Each 15 Minutes C ompleted 09/03/2020 61146 Therapeutic Procedure, Each 15 M inutes Completed 09/01/2020 91495 Manual Therapy Each 15 Minutes C ompleted 09/01/2020 45708 Therapeutic Procedure, Each 15 M inutes Completed 08/26/2020 58013 Physical Therapy Eval - Low Comp lexity Completed 08/17/2020 49532 Office/Outpatient Established Lo w MDM 20-29 Min Completed 08/17/2020 29922 X-Ray Hips Bilateral With Pelvis 3-4 Views Completed Medical Devices Description No Information Available Encounters Type Date Location Provider Dx Diagnosis Office Visit 11/23/2020 11:15a [place] Vivienne Aguero PA-C S80.01x D Contusion of right knee, subsequent encounter L03.115 Cellulitis of right lower li mb M70.41 Prepatellar bursitis, right knee Office Visit 11/11/2020 2:40p Jannie Martin PA-C L0 3.115 Cellulitis of right lower limb M79.661 Pain in right lower leg Office Visit 11/04/2020 2:00p [place], PBryon S80.01xA Contusion of right knee, initial encounter S60.212A Contusion of left wrist, ini tial encounter S60.211A Contusion of right wrist, in itial encounter Office Visit 09/29/2020 11:00a RADHA Weinberg M16.0 Bilateral primary osteoarthritis of hip M70.61 Trochanteric bursitis, right hip M70.62 Trochanteric bursitis, left hip M25.562 Pain in left knee Office Visit 08/17/2020 2:[place]p [place] M16.0 Bilateral primary osteoarthritis of hip M70.61 Trochanteric bursitis, right hip M70.62 Trochanteric bursitis, left hip Assessments Date Code Description Provider 11/23/2020 S80.01xD Contusion of right knee, subsequ ent encounter Vivienne Aguero PA-C 11/23/2020 L03.115 Cellulitis of right lower limb Renee Aguero PA-C 11/23/2020 M70.41 Prepatellar bursitis, right knee Vivienne Aguero PA-C 11/11/2020 L03.115 Cellulitis of right lower limb Celso Martin, REGINO 11/11/2020 M79.661 Pain in right lower leg Tenzin Martin, REGINO 11/04/2020 S80.01xA Contusion of right knee, initial encounter Thomas Benavides, P.A. 11/04/2020 S60.212A Contusion of left wrist, initial encounter Thomas Benavides, P.A. 11/04/2020 S60.211A Contusion of right wrist, initia l encounter Thomas Benavides, P.A. 10/29/2020 M16.0 Bilateral primary osteoarthritis of hip Latonya Luci Power, AQUATIC ECOLOGIST 10/29/2020 M70.61 Trochanteric bursitis, right hip Latonya Luci Power, AQUATIC ECOLOGIST 10/29/2020 M70.62 Trochanteric bursitis, left hip Latonya Luci Power, AQUATIC ECOLOGIST 10/27/2020 M16.0 Bilateral primary osteoarthritis of hip Latonya Luci Power, AQUATIC ECOLOGIST 10/27/2020 M70.61 Trochanteric bursitis, right hip Latonya Luci Power, AQUATIC ECOLOGIST 10/27/2020 M70.62 Trochanteric bursitis, left hip Latonya Luci Power, AQUATIC ECOLOGIST 10/22/2020 M16.0 Bilateral primary osteoarthritis of hip Latonya Luci Power, AQUATIC ECOLOGIST 10/22/2020 M70.61 Trochanteric bursitis, right hip Latonya Luci Power, AQUATIC ECOLOGIST 10/22/2020 M70.62 Trochanteric bursitis, left hip Latonya Luci Power, AQUATIC ECOLOGIST 10/19/2020 M16.0 Bilateral primary osteoarthritis of hip Latonya Luci Power, AQUATIC ECOLOGIST 10/19/2020 M70.61 Trochanteric bursitis, right hip Latonya Luci Power, AQUATIC ECOLOGIST 10/19/2020 M70.62 Trochanteric bursitis, left hip Latonya Luci Power, AQUATIC ECOLOGIST 10/15/2020 M16.0 Bilateral primary osteoarthritis of hip Latonya Luci Power, AQUATIC ECOLOGIST 10/15/2020 M70.61 Trochanteric bursitis, right hip Latonya Luci Power, AQUATIC ECOLOGIST 10/15/2020 M70.62 Trochanteric bursitis, left hip Latonya Luci Power, AQUATIC ECOLOGIST 10/12/2020 M16.0 Bilateral primary osteoarthritis of hip Latonya Luci Power, AQUATIC ECOLOGIST 10/12/2020 M70.61 Trochanteric bursitis, right hip Latonya Luci Power, AQUATIC ECOLOGIST 10/12/2020 M70.62 Trochanteric bursitis, left hip Latonya Power, AQUATIC ECOLOGIST 10/08/2020 M16.0 Bilateral primary osteoarthritis of hip Latonya Luci Power, AQUATIC ECOLOGIST 10/08/2020 M70.61 Trochanteric bursitis, right hip Latonya Luci Power, AQUATIC ECOLOGIST 10/08/2020 M70.62 Trochanteric bursitis, left hip Latonya Luci Power, AQUATIC ECOLOGIST 10/05/2020 M16.0 Bilateral primary osteoarthritis of hip Fam Ksenia Short P.T. 10/05/2020 M70.61 Trochanteric bursitis, right hip Famjohnie Short P.T. 10/05/2020 M70.62 Trochanteric bursitis, left hip Fam CarvalhoDiane Short P.T. 09/29/2020 M16.0 Bilateral primary osteoarthritis of hip Latonya Luci Power, AQUATIC ECOLOGIST 09/29/2020 M16.0 Bilateral primary osteoarthritis of hip Hrerera Grant, PA 09/29/2020 M70.61 Trochanteric bursitis, right hip Herrera Grant, PA 09/29/2020 M70.61 Trochanteric bursitis, right hip Latonya Power, AQUATIC ECOLOGIST 09/29/2020 M70.62 Trochanteric bursitis, left hip Herrera Grant, PA 09/29/2020 M25.562 Pain in left knee Herrera Grant , PA 09/29/2020 M70.62 Trochanteric bursitis, left hip Latonya Power, AQUATIC ECOLOGIST 09/27/2020 M16.0 Bilateral primary osteoarthritis of hip Fam Ksenia Short P.T. 09/27/2020 M70.61 Trochanteric bursitis, right hip Famjohnie Short P.T. 09/27/2020 M70.62 Trochanteric bursitis, left hip Fam Mccormack Cook P.T. 09/24/2020 M16.0 Bilateral primary osteoarthritis of hip Fam Mccormack Cook P.T. 09/24/2020 M70.61 Trochanteric bursitis, right hip Fam Mccormack Cook P.T. 09/24/2020 M70.62 Trochanteric bursitis, left hip Fam Mccormack Cook P.T. 09/22/2020 M16.0 Bilateral primary osteoarthritis of hip Fam Mccormack Cook P.T. 09/22/2020 M70.61 Trochanteric bursitis, right hip Fam Mccormack Cook P.T. 09/22/2020 M70.62 Trochanteric bursitis, left hip Fam Mccormack Cook P.T. 09/16/2020 M16.0 Bilateral primary osteoarthritis of hip Latonya Luci Power, AQUATIC ECOLOGIST 09/16/2020 M70.61 Trochanteric bursitis, right hip Latonya Luci Power, AQUATIC ECOLOGIST 09/16/2020 M70.62 Trochanteric bursitis, left hip Latonya Luci Power, AQUATIC ECOLOGIST 09/13/2020 M16.0 Bilateral primary osteoarthritis of hip Latonya Luci Power, AQUATIC ECOLOGIST 09/13/2020 M70.61 Trochanteric bursitis, right hip Latonya Luci Power, AQUATIC ECOLOGIST 09/13/2020 M70.62 Trochanteric bursitis, left hip Latonya Luci Power, AQUATIC ECOLOGIST 09/10/2020 M16.0 Bilateral primary osteoarthritis of hip Latonya Luci Power, AQUATIC ECOLOGIST 09/10/2020 M70.61 Trochanteric bursitis, right hip Latonya Luci Power, AQUATIC ECOLOGIST 09/10/2020 M70.62 Trochanteric bursitis, left hip Latonya Luci Power, AQUATIC ECOLOGIST 09/06/2020 M16.0 Bilateral primary osteoarthritis of hip Latonya Luci Power, AQUATIC ECOLOGIST 09/06/2020 M70.61 Trochanteric bursitis, right hip Latonya Luci Power, AQUATIC ECOLOGIST 09/06/2020 M70.62 Trochanteric bursitis, left hip Latonya Luci Power, AQUATIC ECOLOGIST 09/03/2020 M16.0 Bilateral primary osteoarthritis of hip Latonya Luci Power, AQUATIC ECOLOGIST 09/03/2020 M70.61 Trochanteric bursitis, right hip Latonya Luci Power, AQUATIC ECOLOGIST 09/03/2020 M70.62 Trochanteric bursitis, left hip Latonya Power, AQUATIC ECOLOGIST 09/01/2020 M16.0 Bilateral primary osteoarthritis of hip Latonya Luci Power, AQUATIC ECOLOGIST 09/01/2020 M70.61 Trochanteric bursitis, right hip Latonya Power, AQUATIC ECOLOGIST 09/01/2020 M70.62 Trochanteric bursitis, left hip Latonya Power, AQUATIC ECOLOGIST 08/26/2020 M16.0 Bilateral primary osteoarthritis of hip Fam Mccormack Cook P.T. 08/26/2020 M70.61 Trochanteric bursitis, right hip Fam Mccormack Cook P.T. 08/26/2020 M70.62 Trochanteric bursitis, left hip Fam Mccormack Cook P.T. 08/17/2020 M16.0 Bilateral primary osteoarthritis of hip RADHA Pope 08/17/2020 M70.61 Trochanteric bursitis, right hip RADHA Pope 08/17/2020 M70.62 Trochanteric bursitis, left hip RADHA Pope Plan of Treatment Future Appointment(s):* 12/07/2020 9:30 am - Tenzin Martin PA-C at [place] * 12/02/2020 1:40 pm - RADHA Pope at [place] 11/23/2020 - Vivienne Aguero PA-C* S80.01xD Contusion of right knee, subsequent encounter* New Labs:* CBC With Differential, Ordered: 11/23/20 * Erythrocyte Sedimentation Rate, Ordered: 11/23/20 * High Sensitivity C-Reactive Protein, Ordered: 11/23/20 * Follow up:* 1-2 weeks rt knee recheck with BMS * L03.115 Cellulitis of right lower limb * M70.41 Prepatellar bursitis, right knee Functional Status Description No Information Available Mental Status Description No Information Available Referrals Refer to Dr Reason for Referral Status Appt Date Tenzin Martin PA-C CT RT KNEE With and Without Contrast per medicare no auth req based on medical necessity, per Karol Chau at [facility] no auth req as this is a supplemental plan, ref [id number],passed to carmita to schedule sw. Created [address] [place] [address] [phone] Tenzin Martin, REGINO CT RT KNEE With and Without Contrast per medicare no auth req based on medical necessity, per Karol Chau at [facility] no auth req as this is a supplemental plan, ref [id number],passed to carmita to schedule sw. Created [address] [place] [address] [phone] Fam Short RPT NO AUTH REQUIRED. FOLLOWS R GUIDELINES. REF #[id number]. HW Created [address] [place] [address] [phone] Herrera Grant I, [facility] Hips no auth req based on medical necessity patient is going to [facility] passed to PT Dept sw. Created [address] [place] [phone]
--- OUTSIDE RECORDS SUMMARY | 2020-12-09 09:34 | CCD | Continuity of Care Document ---
Author Author Lianne AGUERO PAMiriamC Organization Unknown Address [address] [place] [address] Phone [phone] Care Team Providers Care Rubber Press Operator Name Role Phone Bill Tapia MD [facility] [phone] Problems Description No Active Problems Social History [...] H/L Range Note CBC With Differential 11/23/[address] [address] (315)- - White Blood Count 10.5 10 [...] 36.0-66.0 Lymph % 22.5 % Low 24.0-44.0 [place] % 7.2 % Normal 2.0-8.0 Eos % 0.4 % Normal 0.0-3.0 Baso % 0.8 % Normal 0.0-1.0 Immature Granulocyte % 0.4 % Normal 0-3.0 Nucleated Red Blood Cell % 0.0 % Normal 0-0 Neutrophils # 7.2 10 Normal 1.5-8.5 Lymph # 2.4 10 Normal 1.5-5.0 [place] # 0.8 10 Normal 0.0-0.8 Eos # 0.0 10 Normal 0.0-0.5 Baso # 0.1 10 Normal 0.0-0.2 Laboratory test finding 11/23/2020 [facility] [address] [place] [address] (315)- - Erythrocyte Sedimentation Rate 27 mm/hr Normal 0-30 C Reactive Protein Quantitativ 0.94 mg/dL High 0.00-0.30 Procedures Date Code Description Status 11/23/2020 84706 Office/Outpatient Established Lo w MDM 20-29 Min Completed 11/11/2020 87966 Office/Outpatient Established Mo d MDM 30-39 Min Completed 11/11/2020 46753 X-Ray Knee Complete W/Obliques & Tunnel And/Or Standing Views Completed 11/04/2020 02595 Office/Outpatient Established Lo w MDM 20-29 Min Completed 10/29/2020 13849 Therapeutic Procedure, Each 15 M inutes Completed 10/27/2020 11225 Therapeutic Procedure, Each 15 M inutes Completed 10/22/2020 07418 Therapeutic Procedure, Each 15 M inutes Completed 10/19/2020 77113 Therapeutic Procedure, Each 15 M inutes Completed 10/15/2020 31114 Therapeutic Procedure, Each 15 M inutes Completed 10/12/2020 33447 Therapeutic Procedure, Each 15 M inutes Completed 10/08/2020 68972 Therapeutic Procedure, Each 15 M inutes Completed 10/05/2020 33631 Manual Therapy Each 15 Minutes C ompleted 10/05/2020 48399 Therapeutic Procedure, Each 15 M inutes Completed 09/29/2020 81426 Office/Outpatient Established Lo w MDM 20-29 Min Completed 09/29/2020 11054 Manual Therapy Each 15 Minutes C ompleted 09/29/2020 31292 Therapeutic Procedure, Each 15 M inutes Completed 09/29/2020 63065 Inject/Drain Joint/Bursa Major C ompleted 09/27/2020 17393 Therapeutic Procedure, Each 15 M inutes Completed 09/24/2020 45954 Therapeutic Procedure, Each 15 M inutes Completed 09/22/2020 39944 Therapeutic Procedure, Each 15 M inutes Completed 09/16/2020 19951 Manual Therapy Each 15 Minutes C ompleted 09/16/2020 64720 Therapeutic Procedure, Each 15 M inutes Completed 09/13/2020 08176 Manual Therapy Each 15 Minutes C ompleted 09/13/2020 30539 Therapeutic Procedure, Each 15 M inutes Completed 09/10/2020 99839 Manual Therapy Each 15 Minutes C ompleted 09/10/2020 25591 Therapeutic Procedure, Each 15 M inutes Completed 09/06/2020 03151 Manual Therapy Each 15 Minutes C ompleted 09/06/2020 95347 Therapeutic Procedure, Each 15 M inutes Completed 09/03/2020 16600 Manual Therapy Each 15 Minutes C ompleted 09/03/2020 90824 Therapeutic Procedure, Each 15 M inutes Completed 09/01/2020 91502 Manual Therapy Each 15 Minutes C ompleted 09/01/2020 74599 Therapeutic Procedure, Each 15 M inutes Completed 08/26/2020 05707 Physical Therapy Eval - Low Comp lexity Completed 08/17/2020 73927 Office/Outpatient Established Lo w MDM 20-29 Min Completed 08/17/2020 22230 X-Ray Hips Bilateral With Pelvis 3-4 Views Completed Medical Devices Description No Information Available Encounters Type Date Location Provider Dx Diagnosis Office Visit 11/23/2020 11:15a [place] Vivienne Aguero PA-C S80.01x D Contusion of right knee, subsequent encounter L03.115 Cellulitis of right lower li mb Office Visit 11/11/2020 2:40p [place] Tenzin Martin PA-C L0 3.115 Cellulitis of right lower limb M79.661 Pain in right lower leg Office Visit 11/04/2020 2:00p [place] Janeen Adair S80.01xA Contusion of right knee, initial encounter S60.212A Contusion of left wrist, ini tial encounter S60.211A Contusion of right wrist, in itial encounter Office Visit 09/[place] M16.0 Bilateral primary osteoarthritis of hip M70.61 Trochanteric bursitis, right hip M70.62 Trochanteric bursitis, left hip M25.562 Pain in left knee Office Visit 08/17/2020 2[facility]p [facility] [place] M16.0 Bilateral primary osteoarthritis of hip [...] primary osteoarthritis of hip Latonya Luci Power, COMPOSING MACHINE OPERATOR/TENDER 10/29/2020 M70.61 Trochanteric bursitis, right hip Latonya Luci Power, COMPOSING MACHINE OPERATOR/TENDER 10/29/2020 M70.62 Trochanteric bursitis, left hip Latonya Luci Power, COMPOSING MACHINE OPERATOR/TENDER 10/27/2020 M16.0 Bilateral primary osteoarthritis of hip Latonya Luci Power, COMPOSING MACHINE OPERATOR/TENDER 10/27/2020 M70.61 Trochanteric bursitis, right hip Latonya Luci Power, COMPOSING MACHINE OPERATOR/TENDER 10/27/2020 M70.62 Trochanteric bursitis, left hip Latonya Luci Power, COMPOSING MACHINE OPERATOR/TENDER 10/22/2020 M16.0 Bilateral primary osteoarthritis of hip Latonya Luci Power, COMPOSING MACHINE OPERATOR/TENDER 10/22/2020 M70.61 Trochanteric bursitis, right hip Latonya Luci Power, COMPOSING MACHINE OPERATOR/TENDER 10/22/2020 M70.62 Trochanteric bursitis, left hip Latonya Luci Power, COMPOSING MACHINE OPERATOR/TENDER 10/19/2020 M16.0 Bilateral primary osteoarthritis of hip Latonya Luci Power, COMPOSING MACHINE OPERATOR/TENDER 10/19/2020 M70.61 Trochanteric bursitis, right hip Latonya Luci Power, COMPOSING MACHINE OPERATOR/TENDER 10/19/2020 M70.62 Trochanteric bursitis, left hip Latonya Luci Power, COMPOSING MACHINE OPERATOR/TENDER 10/15/2020 M16.0 Bilateral primary osteoarthritis of hip Latonya Luci Power, COMPOSING MACHINE OPERATOR/TENDER 10/15/2020 M70.61 Trochanteric bursitis, right hip Latonya Luci Power, COMPOSING MACHINE OPERATOR/TENDER 10/15/2020 M70.62 Trochanteric bursitis, left hip Latonya Luci Power, COMPOSING MACHINE OPERATOR/TENDER 10/12/2020 M16.0 Bilateral primary osteoarthritis of hip Latonya Luci Power, COMPOSING MACHINE OPERATOR/TENDER 10/12/2020 M70.61 Trochanteric bursitis, right hip Latonya Luci Power, COMPOSING MACHINE OPERATOR/TENDER 10/12/2020 M70.62 Trochanteric bursitis, left hip Latonya Power, COMPOSING MACHINE OPERATOR/TENDER 10/08/2020 M16.0 Bilateral primary osteoarthritis of hip Latonya Luci Power, COMPOSING MACHINE OPERATOR/TENDER 10/08/2020 M70.61 Trochanteric bursitis, right hip Latonya Power, COMPOSING MACHINE OPERATOR/TENDER 10/08/2020 M70.62 Trochanteric bursitis, left hip Latonya Power, COMPOSING MACHINE OPERATOR/TENDER 10/05/2020 M16.0 Bilateral primary osteoarthritis of hip Fam Ksenia Cook P.T. 10/05/2020 M70.61 Trochanteric bursitis, right hip Fam Ksenia Cook P.T. 10/05/2020 M70.62 Trochanteric bursitis, left hip Fam Mccormack Cook P.T. 09/29/2020 M16.0 Bilateral primary osteoarthritis of hip Latonya Luci Power, COMPOSING MACHINE OPERATOR/TENDER 09/29/2020 M16.0 Bilateral primary osteoarthritis of hip Herrera IDiane Grant, PA 09/29/2020 M70.61 Trochanteric bursitis, right hip Herrera Rosanna Grant, PA 09/29/2020 M70.61 Trochanteric bursitis, right hip Latonya Poewr, COMPOSING MACHINE OPERATOR/TENDER 09/29/2020 M70.62 Trochanteric bursitis, left hip Herrerakraig Marte Rudy, PA 09/29/2020 M25.562 Pain in left knee Herrera Grant , PA 09/29/2020 M70.62 Trochanteric bursitis, left hip Latonya Power, COMPOSING MACHINE OPERATOR/TENDER 09/27/2020 M16.0 Bilateral primary osteoarthritis of hip [...] primary osteoarthritis of hip Latonya Luci Power, COMPOSING MACHINE OPERATOR/TENDER 09/16/2020 M70.61 Trochanteric bursitis, right hip Latonya Luci Power, COMPOSING MACHINE OPERATOR/TENDER 09/16/2020 M70.62 Trochanteric bursitis, left hip Latonya Luci Power, COMPOSING MACHINE OPERATOR/TENDER 09/13/2020 M16.0 Bilateral primary osteoarthritis of hip Latonya Luci Power, COMPOSING MACHINE OPERATOR/TENDER 09/13/2020 M70.61 Trochanteric bursitis, right hip Latonya Luci Power, COMPOSING MACHINE OPERATOR/TENDER 09/13/2020 M70.62 Trochanteric bursitis, left hip Latonya Luci Power, COMPOSING MACHINE OPERATOR/TENDER 09/10/2020 M16.0 Bilateral primary osteoarthritis of hip Latonya Luci Power, COMPOSING MACHINE OPERATOR/TENDER 09/10/2020 M70.61 Trochanteric bursitis, right hip Latonya Luci Power, COMPOSING MACHINE OPERATOR/TENDER 09/10/2020 M70.62 Trochanteric bursitis, left hip Latonya Luci Power, COMPOSING MACHINE OPERATOR/TENDER 09/06/2020 M16.0 Bilateral primary osteoarthritis of hip Latonya Luci Power, COMPOSING MACHINE OPERATOR/TENDER 09/06/2020 M70.61 Trochanteric bursitis, right hip Latonya Luci Power, COMPOSING MACHINE OPERATOR/TENDER 09/06/2020 M70.62 Trochanteric bursitis, left hip Latonya Luci Power, COMPOSING MACHINE OPERATOR/TENDER 09/03/2020 M16.0 Bilateral primary osteoarthritis of hip Latonya Luci Power, COMPOSING MACHINE OPERATOR/TENDER 09/03/2020 M70.61 Trochanteric bursitis, right hip Latonya Luci Power, COMPOSING MACHINE OPERATOR/TENDER 09/03/2020 M70.62 Trochanteric bursitis, left hip Latonya Luci Power, COMPOSING MACHINE OPERATOR/TENDER 09/01/2020 M16.0 Bilateral primary osteoarthritis of hip Latonya Luci Power, COMPOSING MACHINE OPERATOR/TENDER 09/01/2020 M70.61 Trochanteric bursitis, right hip Latonya Luci Power, COMPOSING MACHINE OPERATOR/TENDER 09/01/2020 M70.62 Trochanteric bursitis, left hip Latonya Power, COMPOSING MACHINE OPERATOR/TENDER 08/26/2020 M16.0 Bilateral primary osteoarthritis of hip [...] 9:30 am - Tenzin Martin PA-C at [place] * 12/02/2020 1:40 pm - RADHA Pope at [place] Functional Status Description No Information Available Mental Status Description No Information Available Referrals Refer to Dr Reason for Referral Status Appt Date Tenzin Martin PA-C CT RT KNEE With and Without Contrast per medicare no auth req based on medical necessity, per Karol Chau at [facility] no auth req as this is a supplemental plan, ref [id number],passed to [facility] to schedule sw. Created [address] [place] [id number] [phone] Tenzin Martin PA-C CT RT KNEE With and Without Contrast per medicare no auth req based on medical necessity, per Karol Chau at [facility] no auth req as this is a supplemental plan, ref [id number],passed to [facility] to schedule sw. Created [address] [place] [phone] Fam Short RPT NO AUTH REQUIRED. FOLLOWS R GUIDELINES. REF #[id number]. HW Created [address] [place] [address] [address] [place] [phone] Herrera Grant I, [facility] Mark Hips no auth req based on medical necessity patient is going [facility] passed to PT Dept sw. Created [address] [place] [address] [address] [place] [phone]
--- OUTSIDE RECORDS SUMMARY | 2020-12-09 09:34 | CCD | Continuity of Care Document ---
Author Author Lianne PHILLIPS Organization Unknown Address [address], [place] [address] Phone [phone] Care Team Providers Care Shuttle Final Inspector Name Role Phone Hussein Zamarripa MD AUTMika Unavailable Adrienne Alejandre Unavailable Problems Active Problems Provider Date Allergic rhinitis due to house dust mite Forrest Phillips M.D. Onset: 10/22/2012 Note: 2+ reaction to dust mite on intrad ermal test. Completed 2012. Allergic rhinitis caused by mold Forrest Phillips M.D. O nset: 10/22/2012 Note: 2+ reaction to mold on intradermal test. Completed 2012. Dry eyes Onset: 06/27/2018 Moderate persistent asthma Onset: 2018 Gastroesophageal reflux disease Onset: 0 10/22/2012 Pure hypercholesterolemia CASH Tracy Onset: 11/26 Essential hypertension CASH Tracy Onset: 11/27/19 19 Social History Type Date Description Comments Sex Unknown Tobacco Use Reviewed: 11/26/20 Patient has never smoked Smoking Status Reviewed: 11/26/20 Patient has never smoked Allergies and adverse reactions Active Allergies Criticality Reaction | Severity Comments Date Morphine Unable to assess criticality muscle twitching/jitterin ess 10/12/2018 Lyrica Unable to assess criticality blurred vision 10/12/2018 Propoxyphene Unable to assess criticality Itching 12/26/2018 Adhesives Unable to assess criticality Itching, rash 12/29/2019 Medications Active Medications SIG Qnty Indications Ordering Provide r Date Bisoprolol Fumarate 10mg Tablets 1 by mouth once daily Forrest Phillips M.D. 05/26 Fluticasone Propionate 50mcg/Act Suspension Inhale 2 Sprays In Each Nostril Once Daily In The Evening 16unit s J30.Ivonne Phillips M.D. 05/26/2020 Isosorbide Dinitrate 30mg Tablets 1 by mouth once daily Forrest Phillips M.D. 05/26 Advair HFA 230-21mcg/Act Aerosol Inhale Two Puffs By Mouth Twice A Day 12units J45.Johnathon gramajo M.D. 05/28/2018 Spiriva Respimat 1.25mcg/Act Aeros ol inhale 2 puffs (2.5 mcg) by inhalation route once daily for 30 days 4gm J45Susan Phillips M.D. 02/23/2017 Trazodone HCL 100mg Tablets Bill Tapia, Clopidogrel Bisulfate 75mg Tablets Tracey Araujo, INSIDE FINISHER- Nitrostat 0.4mg Tablets Sub place 1 tablet (0.4 mg) by buccal route at the first sign of an attack; no more than 3 tabs are recommended within a 15 minute period. Unknown Lipitor 80mg Tablets take 1 tablet (40 mg) by oral route once daily Unknown Lisinopril 2.5mg Tablets take 1 tablet (2.5 mg) by oral route once daily Unknown Ventolin HFA 108(90Base) mcg/Act A erosol inhale 2 puffs by inhalation route every 4-6 hours as needed for coughing, wheezing, SOB 8gm Forrest Phillips M.D. Lidoderm 5% Patches apply 1 patch by transdermal route once daily (May wear up to 12hours.) Unknown Gabapentin 300mg Capsules take 1 capsule (300 mg) by oral route 3 times per day Unknown Cetirizine HCL 10mg Tablets take 1 tablet (10 mg) by oral route once daily 30tabs J30.Ivonne matson M.D. Topiramate 100mg Tablets take 1 tablet by oral route 2 times a day Unknown 00/00/0 000 Sucralfate 1gm Tablets take 1 tablet (1 gram) by oral route 2 times per day on an empty stomach Unknown Restasis Multidose 0.05% Emulsion instill 1 drop into affected eye(s) by ophthalmic route 2 times per day Unknown Pantoprazole Sodium 40mg Tablets D R take 1 tablet (40 mg) by oral route once daily Unknown Nortriptyline HCL 25mg Capsules take 1 capsule by oral route 4 times a day Unknown Singulair 10mg Tablets take 1 tablet (10 mg) by oral route once daily in the evening 30tabs J30.89 Forrest Phillips M.D. Magnesium Oxide 400(241.3Mg) mg Ta blets take 1 tablet by oral route 2 times a day Unknow n Immunizations Description No Information Available Vital Signs Date Vital Result Comment 11/26/2020 10:32am Weight 198.00 lb Heart Rate 85 /min BP Systolic 164 mmHg BP Diastolic 91 mmHg 05/26/2020 10:36am Weight 199.12 lb Height 60 inches 5'0" Heart Rate 92 /min Respiratory Rate 18 /min BP Systolic 145 mmHg BP Diastolic 87 mmHg BMI (Body Mass Index) 38.9 kg/m2 Results Description No Information Available Procedures Description No Information Available Medical Devices Description No Information Available Encounters Description No Information Available Assessments Description No Information Available Plan of Treatment Future Appointment(s):* 05/27/2021 10:00 am - Forrest Phillips M.D. at Main Office Functional Status Description No Information Available Mental Status Description No Information Available Referrals Description No Information Available
--- OUTSIDE RECORDS SUMMARY | 2020-12-09 09:34 | CCD | Continuity of Care Document ---
Author Author Lianne PHILLIPS Organization Unknown Address [address], [place] [address] Phone [phone] Care Team Providers Care Guitar Maker Name Role Phone Hussein Zamarripa MD AUTMika [...] Tapia, Clopidogrel Bisulfate 75mg Tablets Tracey Araujo, AUTOMATION QTP TESTER- Nitrostat 0.4mg Tablets Sub place 1 tablet [...] Information Available Procedures Date Code Description Status 11/26/2020 88935 Office/Outpatient Established Lo w MDM 20-29 Min Completed 11/26/2020 29759 Bronchodilation Resp onsiveness Spirometry Pre/Post Bronchodil Adm Completed Medical Devices Description No Information Available Encounters Type Date Location Provider Dx Diagnosis Office Visit 11/26/2020 10:30a Main Office Forrest Phillips M.D. J45.40 Moderate persistent asthma, uncomplicated J30.89 Other allergic rhinitis Assessments Date Code Description Provider 11/26/2020 J45.40 Moderate persistent asthma, unco mplicated Forrest Phillips M.D. 11/26/2020 J30.89 Other allergic rhinitis Forrest Phillips M.D. Plan of Treatment Future Appointment(s):* 05/27/2021 10:00 am - Forrest Phillips M.D. at Main Office 11/26/2020 - Forrest Chrostowski, M.D.* J45.40 Moderate persistent asthma, uncomplicated* Recommendations:* Should continue on current recommended treatment as directed (Advair BID, Singulair and Spiriva during colds only). It was explained that Advair and Singulair should be used consistently to be effective. I also explained the risks and benefits associated with the inhaled steroid part of this medication and proper MDI technique. It was explained that Singulair should be helping not only with the nasal congestion associated with her allergic rhinitis, but with her moderate persistent asthma as well. The patient should still use Ventolin prn cough and wheezing and for activity prophylaxis. * J30.89 Other allergic rhinitis* Recommendations:* Should stay on Singulair. The patient should restart using nasal spray every night. Flonase should be used consistently in order to be effective. Effective allergen avoidance measures were reviewed and recommended again. May also use oral antihistamine in order to suppress eye itching, itchy nose and sneezing when needed. * All * Follow up:* Routine follow up in 6 months with PFT. Sooner if needed. Functional Status Description No Information Available Mental Status Description No Information Available Referrals Description No Information Available
--- OUTSIDE RECORDS SUMMARY | 2020-12-09 09:35 | CCD | Continuity of Care Document ---
Author Author Lianne BENAVIDES P.A. Organization Unknown Address [address] [place] [address] [place] [address] Phone [phone] Care Team Providers Care Transfusion Aide Name Role Phone Bill Tapia MD [facility] [phone] Problems Description No Active Problems Social History [...] Information Available Procedures Date Code Description Status 11/11/2020 91643 X-Ray Knee Complete W/Obliques & Tunnel And/Or Standing Views Completed 11/11/2020 06786 Office/Outpatient Established Mo d MDM 30-39 Min Completed 11/04/2020 31614 Office/Outpatient Established Lo w MDM 20-29 Min Completed 10/29/2020 24634 Therapeutic Procedure, Each 15 M inutes Completed 10/27/2020 64916 Therapeutic Procedure, Each 15 M inutes Completed 10/22/2020 77263 Therapeutic Procedure, Each 15 M inutes Completed 10/19/2020 16013 Therapeutic Procedure, Each 15 M inutes Completed 10/15/2020 49016 Therapeutic Procedure, Each 15 M inutes Completed 10/12/2020 66744 Therapeutic Procedure, Each 15 M inutes Completed 10/08/2020 71107 Therapeutic Procedure, Each 15 M inutes Completed 10/05/2020 31348 Manual Therapy Each 15 Minutes C ompleted 10/05/2020 35060 Therapeutic Procedure, Each 15 M inutes Completed 09/29/2020 73121 Office/Outpatient Established Lo w MDM 20-29 Min Completed 09/29/2020 68345 Manual Therapy Each 15 Minutes C ompleted 09/29/2020 21193 Therapeutic Procedure, Each 15 M inutes Completed 09/29/2020 20434 Inject/Drain Joint/Bursa Major C ompleted 09/27/2020 24312 Therapeutic Procedure, Each 15 M inutes Completed 09/24/2020 70328 Therapeutic Procedure, Each 15 M inutes Completed 09/22/2020 05716 Therapeutic Procedure, Each 15 M inutes Completed 09/16/2020 76957 Manual Therapy Each 15 Minutes C ompleted 09/16/2020 86963 Therapeutic Procedure, Each 15 M inutes Completed 09/13/2020 16031 Manual Therapy Each 15 Minutes C ompleted 09/13/2020 04079 Therapeutic Procedure, Each 15 M inutes Completed 09/10/2020 28828 Manual Therapy Each 15 Minutes C ompleted 09/10/2020 06670 Therapeutic Procedure, Each 15 M inutes Completed 09/06/2020 76051 Manual Therapy Each 15 Minutes C ompleted 09/06/2020 84573 Therapeutic Procedure, Each 15 M inutes Completed 09/03/2020 96125 Manual Therapy Each 15 Minutes C ompleted 09/03/2020 45943 Therapeutic Procedure, Each 15 M inutes Completed 09/01/2020 72538 Manual Therapy Each 15 Minutes C ompleted 09/01/2020 17720 Therapeutic Procedure, Each 15 M inutes Completed 08/26/2020 54043 Physical Therapy Eval - Low Comp lexity Completed 08/17/2020 39778 Office/Outpatient Established Lo w MDM 20-29 Min Completed 08/17/2020 22662 X-Ray Hips Bilateral With Pelvis 3-4 Views Completed Medical Devices Description No Information Available Encounters Type Date Location Provider Dx Diagnosis Office Visit 11/11/2020 2:40p [place] PA-C S8 0.01xD Contusion of right knee, subsequent encounter Office Visit 11/04/2020 2:00p [place] Thomas Benavides PDianeADiane S80.01xA Contusion of right knee, initial encounter S60.212A Contusion of left wrist, ini tial encounter S60.211A Contusion of right wrist, in itial encounter Office Visit 09/29/2020 11:00a RADHA Weinberg M16.0 Bilateral primary osteoarthritis of hip M70.61 Trochanteric bursitis, right hip M70.62 Trochanteric bursitis, left hip M25.562 Pain in left knee Office Visit 08/17/2020 2:30p RADHA Weinberg M16.0 Bilateral primary osteoarthritis of hip M70.61 Trochanteric bursitis, right hip M70.62 Trochanteric bursitis, left hip Assessments Date Code Description Provider 11/11/2020 S80.01xD Contusion of right knee, subsequ ent encounter Tenzin Martin PA-C 11/04/2020 S80.01xA Contusion of right knee, initial encounter Thomas Benavides, P.A. 11/04/2020 S60.212A Contusion of left wrist, initial encounter Thomas Benavides P.A. 11/04/2020 S60.211A Contusion of right wrist, initia l encounter Thomas Benavides P.A. 10/29/2020 M16.0 Bilateral primary osteoarthritis of hip Latonya Luci Power, STEAM TENDER 10/29/2020 M70.61 Trochanteric bursitis, right hip Latonya Luci Power, STEAM TENDER 10/29/2020 M70.62 Trochanteric bursitis, left hip Latonya Luci Power, STEAM TENDER 10/27/2020 M16.0 Bilateral primary osteoarthritis of hip Latonya Luci Power, STEAM TENDER 10/27/2020 M70.61 Trochanteric bursitis, right hip Latonya Luci Power, STEAM TENDER 10/27/2020 M70.62 Trochanteric bursitis, left hip Latonya Luci Power, STEAM TENDER 10/22/2020 M16.0 Bilateral primary osteoarthritis of hip Latonya Luci Power, STEAM TENDER 10/22/2020 M70.61 Trochanteric bursitis, right hip Latonya Luci Power, STEAM TENDER 10/22/2020 M70.62 Trochanteric bursitis, left hip Latonya Luci Power, STEAM TENDER 10/19/2020 M16.0 Bilateral primary osteoarthritis of hip Latonya Luci Power, STEAM TENDER 10/19/2020 M70.61 Trochanteric bursitis, right hip Latonya Luci Power, STEAM TENDER 10/19/2020 M70.62 Trochanteric bursitis, left hip Latonya Luci Power, STEAM TENDER 10/15/2020 M16.0 Bilateral primary osteoarthritis of hip Latonya Luci Power, STEAM TENDER 10/15/2020 M70.61 Trochanteric bursitis, right hip Latonya Luci Power, STEAM TENDER 10/15/2020 M70.62 Trochanteric bursitis, left hip Latonya Luci Power, STEAM TENDER 10/12/2020 M16.0 Bilateral primary osteoarthritis of hip Latonya Luci Power, STEAM TENDER 10/12/2020 M70.61 Trochanteric bursitis, right hip Latonya Luci Power, STEAM TENDER 10/12/2020 M70.62 Trochanteric bursitis, left hip Latonya Luci Power, STEAM TENDER 10/08/2020 M16.0 Bilateral primary osteoarthritis of hip Latonya Luci Power, STEAM TENDER 10/08/2020 M70.61 Trochanteric bursitis, right hip Latonya Luci Power, STEAM TENDER 10/08/2020 M70.62 Trochanteric bursitis, left hip Latonya Luci Power, STEAM TENDER 10/05/2020 M16.0 Bilateral primary osteoarthritis of hip Fam J. Cook P.T. 10/05/2020 M70.61 Trochanteric bursitis, right hip Fam J. Cook P.T. 10/05/2020 M70.62 Trochanteric bursitis, left hip Fam J. Cook P.T. 09/29/2020 M16.0 Bilateral primary osteoarthritis of hip Latonya Luci Power, STEAM TENDER 09/29/2020 M16.0 Bilateral primary osteoarthritis of hip Herrera Marte Rudy, PA 09/29/2020 M70.61 Trochanteric bursitis, right hip Herrera Marte Rudy, PA 09/29/2020 M70.61 Trochanteric bursitis, right hip Latonya Luci Power, STEAM TENDER 09/29/2020 M70.62 Trochanteric bursitis, left hip Herrera Marte Rudy, PA 09/29/2020 M25.562 Pain in left knee Herrera Grant , PA 09/29/2020 M70.62 Trochanteric bursitis, left hip Latonya Power, STEAM TENDER 09/27/2020 M16.0 Bilateral primary osteoarthritis of hip [...] primary osteoarthritis of hip Latonya Luci Power, STEAM TENDER 09/16/2020 M70.61 Trochanteric bursitis, right hip Latonya Luci Power, STEAM TENDER 09/16/2020 M70.62 Trochanteric bursitis, left hip Latonya Luci Power, STEAM TENDER 09/13/2020 M16.0 Bilateral primary osteoarthritis of hip Latonya Luci Power, STEAM TENDER 09/13/2020 M70.61 Trochanteric bursitis, right hip Latonya Luci Power, STEAM TENDER 09/13/2020 M70.62 Trochanteric bursitis, left hip Latonya Luci Power, STEAM TENDER 09/10/2020 M16.0 Bilateral primary osteoarthritis of hip Latonya Luci Power, STEAM TENDER 09/10/2020 M70.61 Trochanteric bursitis, right hip Latonya Luci Power, STEAM TENDER 09/10/2020 M70.62 Trochanteric bursitis, left hip Latonya Luci Power, STEAM TENDER 09/06/2020 M16.0 Bilateral primary osteoarthritis of hip Latonya Luci Power, STEAM TENDER 09/06/2020 M70.61 Trochanteric bursitis, right hip Latonya Luci Power, STEAM TENDER 09/06/2020 M70.62 Trochanteric bursitis, left hip Latonya Luci Power, STEAM TENDER 09/03/2020 M16.0 Bilateral primary osteoarthritis of hip Latonya Luci Power, STEAM TENDER 09/03/2020 M70.61 Trochanteric bursitis, right hip Latonya Luci Power, STEAM TENDER 09/03/2020 M70.62 Trochanteric bursitis, left hip Latonya Luci Power, STEAM TENDER 09/01/2020 M16.0 Bilateral primary osteoarthritis of hip Latonya Luci Power, STEAM TENDER 09/01/2020 M70.61 Trochanteric bursitis, right hip Latonya Luci Power, STEAM TENDER 09/01/2020 M70.62 Trochanteric bursitis, left hip Latonya Luci Power, STEAM TENDER 08/26/2020 M16.0 Bilateral primary osteoarthritis of hip Fam Short P.T. 08/26/2020 M70.61 Trochanteric bursitis, right hip Fam Short P.T. 08/26/2020 M70.62 Trochanteric bursitis, left hip Fam Ksenia Short P.T. 08/17/2020 M16.0 Bilateral primary osteoarthritis of hip RADHA Pope 08/17/2020 M70.61 Trochanteric bursitis, right hip RADHA Pope 08/17/2020 M70.62 Trochanteric bursitis, left hip RADHA Pope Plan of Treatment Future Appointment(s):* 12/02/2020 1:40 pm - RADHA Pope at [place] Functional Status Description No Information Available Mental Status Description No Information Available Referrals Refer to Dr Reason for Referral Status Appt Date Tenzin Martin PA-C CT RT KNEE With and Without Contrast per medicare no auth req based on medical necessity, per Karol Chau at [facility] no auth req as this is a supplemental plan, ref [id number],passed to [facility] to schedule sw. Created [address] [place] [address] [phone] [address]enzin Martin PA-C CT RT KNEE With and Without Contrast per medicare no auth req based on medical necessity, per Karol Chau at [facility] no auth req as this is a supplemental plan, ref [id number],passed to [facility] to schedule sw. Created [address] [place] [address] [phone] Fam Short RPT NO AUTH REQUIRED. FOLLOWS R GUIDELINES. REF #[id number]. HW Created [address] [place] [address] [phone] [facility] Mark Hips no auth req based on medical necessity patient is going to [facility] passed to PT Dept sw. Created [facility] [place] [address] [phone]
--- OUTSIDE RECORDS SUMMARY | 2020-12-09 09:35 | CCD | Continuity of Care Document ---
Author Author Lianne ALBRECHT PA Organization Unknown Address [address] [facility] [address] [place] [address] Phone [phone] Care Team Providers Care Heart Specialist Name Role Phone Cortney Diaz MD AUT[facility] [phone] Ragini Galvin [facility] [phone] Forrest Cuellar MD [facility] Pancho Mayorga MD [facility] [phone] Bill Tapia MD [facility] [phone] [facility] AUTM [phone] [facility] AUTM Problems Active Problems [...] day 30tabs Bill Tapia M.D. 07/02/2020 Nystatin 509628Fboy/GM Cream apply to affected area twice a day 90gm Bill Tapia M.D. 0 11/04/2019 Nystatin 428702Pewo/GM Ointment topical three times a day as [...] day Bill Tapia M.D. 06/29/2014 Calcium 600+D [id number] Table ts 1 po bid Bill Tapia [...] by mouth twice a day Ragini Galvin Talpa 10-325mg Tablets 1 by mouth every 8 [...] 80mg Tablets 1 by mouth every day 90tabs Bill Tapia M.D. History Medications Ciprofloxacin HCL 500mg Tablets 1 tab by mouth twice daily x 5 days 10tabs Bill Tapia M.D. 10/21/2020 - 11/11/2020 Medications Administered in Office Medication SIG Qnty Indications Ordering Provider Date Covid-19 vaccine, Unspecified Inj ection Unknown 04/17/2020 Covid-19 vaccine, Unspecified Inj ection Unknown 03/27/2020 Immunizations CPT Code Status Date Vaccine Lot # U-Flu Given 11/24/2019 Influenza,Unspecified [id number] Given 11/24/2019 Prevnar 13 U-Flu Given 11/27/2018 Influenza,Unspecified U-[id number] Given 04/02/2017 DTap,Hib,IPV,Unspecified Q2037 Given 11/29/2015 Fluvirin Virus Vaccine 91560 01 Q2037 Given 12/30/2014 Fluvirin Virus Vaccine 44940 01 Vital Signs Date Vital Result Comment [...] H/L Range Note Laboratory test finding 11/12/[address] [address] [phone] Erythrocyte Sedimentation Rate 37 mm/hr High 0 -30 Basic Metabolic Profile 11/12/[address] [address] [phone] Glucose, Fasting 78 mg/dL Normal 70-100 Blood [...] mg/dL Low 8.8-10.2 Laboratory test finding 11/12/[address] [address] [phone] C Reactive Protein Quantitativ 3.05 mg/dL High 0 .00-0.30 CBC With Differential 11/12/[address] [address] [phone] White Blood Count 8.8 10 Normal 4.0-10.0 [...] 36.0-66.0 Lymph % 21.0 % Low 24.0-44.0 Bea[place]gard % 7.6 % Normal 2.0-8.0 Eos % 1.3 % Normal 0.0-3.0 Baso % 0.6 % Normal 0.0-1.0 Immature Granulocyte % 0.3 % Normal 0-3.0 Nucleated Red Blood Cell % 0.0 % Normal 0-0 Neutrophils # 6.1 10 Normal 1.5-8.5 Lymph # 1.8 10 Normal 1.5-5.0 Bea[place]gard # 0.7 10 Normal 0.0-0.8 Eos # 0.1 10 Normal 0.0-0.5 Baso # 0.1 10 Normal 0.0-0.2 Basic Metabolic Panel 11/10/2020 [facility] Claims Consultant: Dr Tom Kim [place], [place] [id number] [phone] Glucose 79 mg/dL 74 - 99 3 [...] mL/min >60 4 Complete Blood Count 11/10/2020 [facility] Claims Consultant: [place] [address] [phone] WBC 9.2 x10*3/UL 4.1 - 10.9 RBC [...] 2.0 - 7.8 Laboratory test finding 11/01/[address] [address] [phone] Urine Culture FULL REPORT IN L <SEE NOTE> Normal 5 Ua Routine 11/01/2020 [facility] [address] [place] [address] [phone] Appearance, Urine HAZY Normal Clear Color, Urine STRAW Normal Yellow PH,Urine 6.0 units Normal 5.0-9.0 Specific [place] Urine Auto 1.003 Normal 1.002-1.035 Protein, Urine [...] /LPF Normal 0-1 PT & Aptt 11/01/2020 [facility] nter [address] [place] [address] [phone] Prothrombin Time 12.2 seconds Normal 12.7-14.5 Inr 0.87 Normal 6 Partial Thromboplastin Time 25.9 seconds Normal 25.9-37.0 CBC With Differential 11/01/[address] [address] [phone] White Blood Count 10.2 10 High 4.0-10.0 [...] 36.0-66.0 Lymph % 23.4 % Low 24.0-44.0 Bea[place]gard % 6.9 % Normal 2.0-8.0 Eos % 0.4 % Normal 0.0-3.0 Baso % 0.7 % Normal 0.0-1.0 Immature Granulocyte % 0.4 % Normal 0-3.0 Nucleated Red Blood Cell % 0.0 % Normal 0-0 Neutrophils # 7.0 10 Normal 1.5-8.5 Lymph # 2.4 10 Normal 1.5-5.0 Bea[place]gard # 0.7 10 Normal 0.0-0.8 Eos # 0.0 10 Normal 0.0-0.5 Baso # 0.1 10 Normal 0.0-0.2 Istat Chem8+ Panel 11/01/2020 [facility] [address] [place] [address] [phone] iSTAT HCT 41.0 % Normal 38.0-51.0 iSTAT Glucose 82 mg/dL Normal 70-105 iSTAT Sodium 137 mEq/L Normal 136-145 iSTAT Potassium 3.4 mEq/L Low 3.5-5.1 iSTAT CA++ 4.7 mg/dL Normal 4.5-5.3 iSTAT Chloride 105 mEq/L Normal 98-109 iSTAT Co2 21.0 MM/L Low 23.0-27.0 iSTAT BUN 5 mg/dL Low 8-26 iSTAT Creatinine 0.6 mg/dL Normal 0.6-1.3 Laboratory test finding 10/04/2020 [facility] [address] [place] [address] [phone] Urine Culture FULL REPORT IN L <SEE NOTE> Normal 7 Periph Smear For Oncol. Review 10/04/2020 [facility] [address] [place] [address] [phone] Slide Review Report Normal 8 Source PERIPHERAL SMEAR Normal 9 Reason For Review WBC/LEUKEMIA/CHRISTOPHER <SEE NOTE> Normal 10 Complete Blood Count 10/04/2020 [facility] Claims Consultant: [place] [address] [phone] WBC 13.3 x10*3/UL High 4.1 - 10.9 [...] 2.0 - 7.8 Basic Metabolic Panel 10/04/2020 [facility] Claims Consultant: [place] [address] [phone] Glucose 84 mg/dL 74 - 99 12 [...] mL/min >60 13 Ua Dipstick Only 10/04/2020 [facility] Claims Consultant: [place] [address] [phone] Urine Color YELLOW Yellow Urine Appearance SL. HAZY Abnormal Clear Urine PH 6.5 units 5.0 - 9.0 Urine Specific [place] 1.005 1.005 - 1.030 Urine Leukocytes LARGE Abnormal Negative Urine Blood TRACE Abnormal Negative Urine Protein NEGATIVE Negative -Trace Urine Glucose NEGATIVE mg/dL Negative Urine Nitrite NEGATIVE Negative Urine Ketone NEGATIVE mg/dL Negative Urine Bilirubin NEGATIVE Negative Urine Urobilinogen 0.2 mg/dL 0.2 - 1.0 Laboratory test finding 10/04/2020 [facility] [address] [place] [address] [phone] Pathology Request For Service (SEE NOTE) 14 Complete Blood Count 09/30/2020 [facility] Claims Consultant: [place] [address] [phone] WBC 13.2 x10*3/UL High 4.1 - 10.9 [...] 2.0 - 7.8 Comprehensive Chem Profile 09/30/2020 [facility] Claims Consultant: [place] [address] [phone] Glucose 103 mg/dL High 74 - 99 [...] 60 mL/min >60 18 Lipid Profile 09/30/2020 [facility] Claims Consultant: Dr Tom Kim [place], [place] [address] [phone] Cholesterol 163 mg/dL 131 - 200 Triglycerides 93 mg/dL 30 - 150 HDL Cholesterol 72 mg/dL High 35 - 60 LDL (Calculated) 72 CALC 50 - 159 Laboratory test finding 09/30/2020 [facility] Claims Consultant: Dr Tom Kim [place] [id number] [phone] Thyroid Stimulating Hormone 0.38 uIU/mL 0.3 6 - 3.74 T4 Free 1.21 ng/dL 0.76 - 1.46 Coronavirus 2019 Nasopharygeal 06/17/[address] [address] [phone] Coronavirus 2019 Nasopharygeal ASSAY INFORMATIO <SEE N OTE> 19 1 Units are mL/min/1.73 m2 Chronic Kidney Disease Staging per NKF: Stage I & II GFR >=60 Normal to Mildly Decreased Stage III GFR 30-59 Moderately Decreased Stage IV GFR 15-29 Severely Decreased Stage V GFR <15 Very Little GFR Left ESRD GFR <15 on MEDICAL OFFICE TECHNOLOGY INSTRUCTOR 2 Testing was performed on a h [...] LITTLE GFR LEFT ESRD GFR <15 ON MEDICAL OFFICE TECHNOLOGY INSTRUCTOR 5 FULL REPORT IN LAB NOTES (eC [...] LITTLE GFR LEFT ESRD GFR <15 ON MEDICAL OFFICE TECHNOLOGY INSTRUCTOR 14 10/05/2020 - 0842 PERPHERAL SMEAR REVIEW Peripheral smear: Leukocytosis associated with an increased in neutrophils. Erythrocytes appear normal in number and are overall normochromic. Nucleated red cells are not seen. Platelet count within normal limits. No blast forms are identified. 10/05/2020 - 42 Signed LUI DONNELLY MD 10/05/2020 0843 15 [...] LITTLE GFR LEFT ESRD GFR <15 ON MEDICAL OFFICE TECHNOLOGY INSTRUCTOR 19 ASSAY INFORMATION: Real Time RT-PCR NOTE: The COVID-19 assay has been cleared by the U.S. Food and Drug Administration under the Emergency Use Authorization (EUA). [facility] are designated as high complexity laboratories by the Clinical Laboratory Improvement Amendments of 1988(CLIA) and are qualified to perform this test. Not Detected Procedures Date Code Description Status 11/12/2020 44971 Office/Outpatient Established SF MDM 10-19 Min Completed 11/11/2020 50846 Office/Outpatient Established Lo w MDM 20-29 Min Completed 11/10/2020 52626 Office/Outpatient Established Mo d MDM 30-39 Min Completed 11/01/2020 15795 Office/Outpatient Established Lo w MDM 20-29 Min Completed 10/13/2020 28670 Chronic Care MGMT 20 Mins Clinical Staff Time Per Calendar Month Completed 10/13/2020 26756 Chronic Care Management Services Ea Addl 20 Min Completed 10/04/2020 18700 Office/Outpatient Established Mo d MDM 30-39 Min Completed 08/31/2020 46155 Chronic Care MGMT 20 Mins Clinical Staff Time Per Calendar Month Completed 07/14/2020 43600 Chronic Care MGMT 20 Mins Clinical Staff Time Per Calendar Month Completed 07/14/2020 59575 Chronic Care Management Services Ea Addl 20 Min Completed 06/17/2020 19786 Chronic Care MGMT 20 Mins Clinical Staff Time Per Calendar Month Completed 06/17/2020 66713 Chronic Care Management Services Ea Addl 20 Min Completed 08/24/2011 29453102 Mammogram Completed 07/23/2009 [id number] Bone Mineral Density Test Comple [employer] Description No Information Available Encounters Type Date Location Provider Dx Diagnosis Office Visit 11/12/2020 2:00p [facility] collier JR PA L03.115 Cellulitis of right lower li mb R60.0 Localized edema Office Visit 11/11/2020 1:40p [facility] collier JR PA L03.115 [...] disease of [place] coronary artery w/o [facility] pctrs Office Visit 10/04/2020 11:[facility]a [facility] 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 I42.9 Cardiomyopathy, unspecified G43.001 Migraine w/o aura, not intra ctable, with status migrainosus M54.5 Low back pain M79.7 Fibromyalgia Assessments Date Code Description Provider 11/12/2020 L03.115 Cellulitis of right lower limb R ginny Albrecht JR, RADHA 11/12/2020 R60.0 Localized edema RADHA Chavez JR 11/11/2020 L03.115 Cellulitis of right lower limb R RADHA Burk JR 11/11/2020 R60.0 Localized edema Jake ruiz JR, RADHA 11/10/2020 L03.115 Cellulitis of right lower limb [...] 11/01/2020 I25.10 Atherosclerotic hear t disease of [place] coronary artery without angina pectoris RADHA Marin [...] 10/04/2020 I25.10 Atherosclerotic hear t disease of [place] coronary artery without angina pectoris Bill Tapia [...] 10:30 am - Bill Tap[facility] at [facility] 10/04/2020 - Bill Tapia M.D.* E78.00 Pure hypercholesterolemia, unspecified * E03.9 Hypothyroidism, unspecified * G47.33 Obstructive sleep apnea (adult) (pediatric) * K21.9 Gastro-esophageal reflux disease without esophagitis * F34.1 Dysthymic disorder * I25.10 Athscl heart disease of [place] coronary artery w/o ang pctrs * I42.9 [...] continue and monitor.6. Athscl heart disease of [place] coronary artery w/o ang pctrs: Doing well [...] and is following up Reuben Mederos at [facility] for Botox injections who left the practice. She was under the care of [facility] prior for migraine. She will continue to work with at [facility] to optimize her headaches.9. Low back pain: [...]
--- OUTSIDE RECORDS SUMMARY | 2020-12-09 09:35 | CCD | Continuity of Care Document ---
Author Author Lianne MARTIN PAMiriamC Organization Unknown Address [address] [place] [id number] Phone [phone] Care Team Providers Care Plate Corrector Name Role Phone Bill Tapia MD [facility] [phone] Problems Description No Active Problems Social History [...] Bill Tapia MD Sucralfate 1gm Tablets Bill Tapai MD Spiriva Respimat 1.25mcg/Act Aerosol Unknown Nortriptyline [...] Available Procedures Date Code Description Status 11/11/2020 84510 X-Ray Knee Complete W/Obliques & Tunnel And/Or Standing Views Completed 11/11/2020 92849 Office/Outpatient Established Mo d MDM 30-39 Min Completed 11/04/2020 19781 Office/Outpatient Established Lo w MDM 20-29 Min Completed 10/29/2020 62172 Therapeutic Procedure, Each 15 M inutes Completed 10/27/2020 53210 Therapeutic Procedure, Each 15 M inutes Completed 10/22/2020 94299 Therapeutic Procedure, Each 15 M inutes Completed 10/19/2020 09355 Therapeutic Procedure, Each 15 M inutes Completed 10/15/2020 15787 Therapeutic Procedure, Each 15 M inutes Completed 10/12/2020 93748 Therapeutic Procedure, Each 15 M inutes Completed 10/08/2020 77630 Therapeutic Procedure, Each 15 M inutes Completed 10/05/2020 34673 Manual Therapy Each 15 Minutes C ompleted 10/05/2020 85258 Therapeutic Procedure, Each 15 M inutes Completed 09/29/2020 58380 Office/Outpatient Established Lo w MDM 20-29 Min Completed 09/29/2020 58125 Manual Therapy Each 15 Minutes C ompleted 09/29/2020 28791 Therapeutic Procedure, Each 15 M inutes Completed 09/29/2020 98108 Inject/Drain Joint/Bursa Major C ompleted 09/27/2020 99879 Therapeutic Procedure, Each 15 M inutes Completed 09/24/2020 78067 Therapeutic Procedure, Each 15 M inutes Completed 09/22/2020 97096 Therapeutic Procedure, Each 15 M inutes Completed 09/16/2020 04952 Manual Therapy Each 15 Minutes C ompleted 09/16/2020 53820 Therapeutic Procedure, Each 15 M inutes Completed 09/13/2020 75779 Manual Therapy Each 15 Minutes C ompleted 09/13/2020 01271 Therapeutic Procedure, Each 15 M inutes Completed 09/10/2020 44203 Manual Therapy Each 15 Minutes C ompleted 09/10/2020 98262 Therapeutic Procedure, Each 15 M inutes Completed 09/06/2020 28644 Manual Therapy Each 15 Minutes C ompleted 09/06/2020 44761 Therapeutic Procedure, Each 15 M inutes Completed 09/03/2020 66840 Manual Therapy Each 15 Minutes C ompleted 09/03/2020 91834 Therapeutic Procedure, Each 15 M inutes Completed 09/01/2020 45689 Manual Therapy Each 15 Minutes C ompleted 09/01/2020 61857 Therapeutic Procedure, Each 15 M inutes Completed 08/26/2020 57116 Physical Therapy Eval - Low Comp lexity Completed 08/17/2020 78129 Office/Outpatient Established w [facility] 20-29 Min Completed 08/17/2020 32155 X-Ray Hips Bilateral With Pelvis 3-4 Views Completed Medical Devices Description No Information Available Encounters Type Date Location Provider Dx Diagnosis Office Visit 11/11/2020 2:40p [place] Tenzin Martin PA-C L0 3.115 Cellulitis of right lower limb M79.661 Pain in right lower leg Office Visit 11/04[place] 2[place] S80.01xA Contusion of right knee, initial encounter [...] hip Assessments Date Code Description Provider 11/11/2020 L03.115 Cellulitis of right lower limb B mario Martin PA-C 11/11/2020 M79.661 Pain in right lower leg Tenzin Martin PA-C 11/04/2020 S80.01xA Contusion of right knee, initial encounter Thomas Benavides PDianeA. 11/04/2020 S60.212A Contusion of left wrist, initial encounter Thomas Benavides PDianeA. 11/04/2020 S60.211A Contusion of right wrist, initia l encounter Thomas Benavides PDianeADiane 10/29/2020 M16.0 Bilateral primary osteoarthritis of hip Latonya Luci Power, HAT SPRAYER 10/29/2020 M70.61 Trochanteric bursitis, right hip Latonya Luci Power, HAT SPRAYER 10/29/2020 M70.62 Trochanteric bursitis, left hip Latonya Luci Power, HAT SPRAYER 10/27/2020 M16.0 Bilateral primary osteoarthritis of hip Latonya Luci Power, HAT SPRAYER 10/27/2020 M70.61 Trochanteric bursitis, right hip Latonya Luci Power, HAT SPRAYER 10/27/2020 M70.62 Trochanteric bursitis, left hip Latonya Luci Power, HAT SPRAYER 10/22/2020 M16.0 Bilateral primary osteoarthritis of hip Latonya Luci Power, HAT SPRAYER 10/22/2020 M70.61 Trochanteric bursitis, right hip Latonya Luci Power, HAT SPRAYER 10/22/2020 M70.62 Trochanteric bursitis, left hip Latonya Luci Power, HAT SPRAYER 10/19/2020 M16.0 Bilateral primary osteoarthritis of hip Latonya Luci Power, HAT SPRAYER 10/19/2020 M70.61 Trochanteric bursitis, right hip Latonya Luci Power, HAT SPRAYER 10/19/2020 M70.62 Trochanteric bursitis, left hip Latonya Luci Power, HAT SPRAYER 10/15/2020 M16.0 Bilateral primary osteoarthritis of hip Latonya Luci Power, HAT SPRAYER 10/15/2020 M70.61 Trochanteric bursitis, right hip Latonya Luci Power, HAT SPRAYER 10/15/2020 M70.62 Trochanteric bursitis, left hip Latonya Luci Power, HAT SPRAYER 10/12/2020 M16.0 Bilateral primary osteoarthritis of hip Latonya Luci Power, HAT SPRAYER 10/12/2020 M70.61 Trochanteric bursitis, right hip Latonya Luci Power, HAT SPRAYER 10/12/2020 M70.62 Trochanteric bursitis, left hip Latonya Luci Power, HAT SPRAYER 10/08/2020 M16.0 Bilateral primary osteoarthritis of hip Latonya Luci Power, HAT SPRAYER 10/08/2020 M70.61 Trochanteric bursitis, right hip Latonya Luci Power, HAT SPRAYER 10/08/2020 M70.62 Trochanteric bursitis, left hip Latonya Luci Power, HAT SPRAYER 10/05/2020 M16.0 Bilateral primary osteoarthritis of hip Fam J. Cook P.T. 10/05/2020 M70.61 Trochanteric bursitis, right hip Fam J. Cook P.T. 10/05/2020 M70.62 Trochanteric bursitis, left hip Fam Deven. Cook P.T. 09/29/2020 M16.0 Bilateral primary osteoarthritis of hip Latonya Luci Power, HAT SPRAYER 09/29/2020 M16.0 Bilateral primary osteoarthritis of hip Herrera IDiane Grant, PA 09/29/2020 M70.61 Trochanteric bursitis, right hip Herrera Rosanna Grant, PA 09/29/2020 M70.61 Trochanteric bursitis, right hip Latonya Power, HAT SPRAYER 09/29/2020 M70.62 Trochanteric bursitis, left hip Herrera Rosanna Grant, PA 09/29/2020 M25.562 Pain in left knee Herrera Grant , PA 09/29/2020 M70.62 Trochanteric bursitis, left hip Latonya Power, HAT SPRAYER 09/27/2020 M16.0 Bilateral primary osteoarthritis of hip [...] primary osteoarthritis of hip Latonya Luci Power, HAT SPRAYER 09/16/2020 M70.61 Trochanteric bursitis, right hip Latonya Luci Power, HAT SPRAYER 09/16/2020 M70.62 Trochanteric bursitis, left hip Latonya Luci Power, HAT SPRAYER 09/13/2020 M16.0 Bilateral primary osteoarthritis of hip Latonya Luci Power, HAT SPRAYER 09/13/2020 M70.61 Trochanteric bursitis, right hip Latonya Luci Power, HAT SPRAYER 09/13/2020 M70.62 Trochanteric bursitis, left hip Latonya Luci Power, HAT SPRAYER 09/10/2020 M16.0 Bilateral primary osteoarthritis of hip Latonya Luci Power, HAT SPRAYER 09/10/2020 M70.61 Trochanteric bursitis, right hip Latonya Luci Power, HAT SPRAYER 09/10/2020 M70.62 Trochanteric bursitis, left hip Latonya Luci Power, HAT SPRAYER 09/06/2020 M16.0 Bilateral primary osteoarthritis of hip Latonya Luci Power, HAT SPRAYER 09/06/2020 M70.61 Trochanteric bursitis, right hip Latonya Luci Power, HAT SPRAYER 09/06/2020 M70.62 Trochanteric bursitis, left hip Latonya Luci Power, HAT SPRAYER 09/03/2020 M16.0 Bilateral primary osteoarthritis of hip Latonya Luci Power, HAT SPRAYER 09/03/2020 M70.61 Trochanteric bursitis, right hip Latonya Luci Power, HAT SPRAYER 09/03/2020 M70.62 Trochanteric bursitis, left hip Latonya Luci Power, HAT SPRAYER 09/01/2020 M16.0 Bilateral primary osteoarthritis of hip Latonya Luci Power, HAT SPRAYER 09/01/2020 M70.61 Trochanteric bursitis, right hip Latonya Luci Power, HAT SPRAYER 09/01/2020 M70.62 Trochanteric bursitis, left hip Latonya Luci Power, HAT SPRAYER 08/26/2020 M16.0 Bilateral primary osteoarthritis of hip Fam Ksenia Short P.T. 08/26/2020 M70.61 Trochanteric bursitis, right hip Fam J. Cook P.TDiane 08/26/2020 M70.62 Trochanteric bursitis, left hip Fam Short P.T. 08/17/2020 M16.0 Bilateral primary osteoarthritis of hip RADHA Pope 08/17/2020 M70.61 Trochanteric bursitis, right hip RADHA Pope 08/17/2020 M70.62 Trochanteric bursitis, left hip RADHA Pope Plan of Treatment Future Appointment(s):* 12/02/2020 1:40 pm - RADHA Pope at [place] Functional Status Description No Information Available Mental Status Description No Information Available Referrals Refer to Dr Reason for Referral Status Appt Date Tenzin Martin PA-C CT RT KNEE With and Without Contrast per medicare no auth req based on medical necessity, per Karol Chau at [facility] no auth req as this is a supplemental plan, ref [id number],passed to [facility] to schedule sw. Created [address] [place] [address] [phone] Tenzin Martin PA-C CT RT KNEE With and Without Contrast per medicare no auth req based on medical necessity, per Karol Chau at [facility] no auth req as this is a supplemental plan, ref [id number],passed to [facility] to schedule sw. Created [address] [place] [address] [phone] Fam Short RPT NO AUTH REQUIRED. FOLLOWS R GUIDELINES. REF #[id number]. HW Created [address] [place] [address] [phone] [facility] Hips no auth req based on medical necessity patient is going to [facility] passed to PT Dept sw. Created [address] [place] [id number] [phone]
--- OUTSIDE RECORDS SUMMARY | 2020-12-09 09:35 | CCD ---
Author Organization Unknown Address [address] [place] [address] Phone [phone] Care Team Providers Care Ammonia Operator Name Role Phone AIME PARK MD 3 [phone] Allergies Code Code System Name Reaction Severity Status Onset DARVOCET-N 100 Active 04/10/2012 Darvon Active 04/10/2012 7052 RxNorm Morphine Active 04/10/2012 Sulfa (Sulfonamide Antibiotics) Hallucinations Moderate Active Medications Name Status Start Date Stop Date Advair HFA 115 mcg-21 mcg/actuation aero ant inhaler 1 spray twice a day Completed 08/19/2018 Advair HFA 230 mcg-21 mcg/actuation aerosol inhaler Active Not available Ajovy Syringe 225 mg/1.5 mL subcutaneous Active Not available albuterol sulfate HFA 90 mcg/actuation aerosol inhaler Active Not available atorvastatin 40 mg tablet Completed 2020 atorvastatin 80 mg tablet Active Not av ailable azelastine 137 mcg (0.1 %) nasal spray a erosol as needed Active Not available azithromycin 250 mg tablet Completed 01/09 baclofen 10 mg tablet Active Not availa ble bisoprolol fumarate 10 mg tablet Active Not available bisoprolol fumarate 5 mg tablet Take 1 tablet every day by oral route. Completed 03/09/2020 carvedilol 12.5 mg tablet Completed 2018 carvedilol 25 mg tablet Completed 11/20/19 cephalexin 500 mg capsule Active Not av ailable ciprofloxacin 250 mg tablet Completed 12/21 ciprofloxacin 500 mg tablet Active Not available clonazepam 0.5 mg tablet Completed 021 clopidogrel 75 mg tablet Active Not laith ilable clotrimazole-betamethasone 1 %-0.05 % topical cream Completed 01/09/2018 diclofenac 1 % topical gel Active Not a vailable doxycycline monohydrate 100 mg capsule Active Not available doxycycline monohydrate 100 mg tablet Completed 04/22/2018 Fluad 2019- 65yr up(PF)45 mcg(15 mcgx3 )/0.5 mL intramuscular syringe INJECT DIRECTED Active Not available fluorometholone 0.1 % eye drops,suspensi on as needed Active Not available fluticasone propionate 50 mcg/actuation nasal spray,suspension A ctive Not available Fluzone High-Dose Quad (PF) 240 mcg/0.7 mL IM syringe PHARMACIST ADMINISTERED IMMUNIZATION ADMINISTERED AT TIME OF DISPENSING Active Not available gabapentin 400 mg capsule Active Not av ailable gabapentin 600 mg tablet Active Not laith ilable hydrocodone 5 mg-acetaminophen 325 mg tablet Completed 03/09/2020 ibuprofen 600 mg tablet Take 1 tablet twice a day by oral route for 10 days. Completed 11/19/2020 isosorbide dinitrate 30 mg tablet Take 1 tablet twice a day by oral route. Completed 01/26/2020 isosorbide mononitrate ER 30 mg tablet,extended release 24 hr Ac tive Not available levofloxacin 250 mg tablet Take by oral route for 5 days. Completed 08/20/19 levofloxacin 500 mg tablet Completed 04/22 lisinopril 10 mg tablet Completed 11/20/19 21 lisinopril 2.5 mg tablet Completed 021 lisinopril 20 mg tablet Active Not avai lable lisinopril 5 mg tablet Completed montelukast 10 mg tablet TAKE ONE TABLET BY MOUTH EVERY DAY Active Not available nitrofurantoin monohydrate/macrocrystals 100 mg capsule Complete d 11/19/2020 nortriptyline 25 mg capsule Active Not available nystatin 100,000 unit/gram topical cream Completed 03/09/2020 nystatin 100,000 unit/gram topical ointm ent APPLY TOPICALLY TO RASH THREE TIMES A DAY NEEDED Active Not available ondansetron HCl 4 mg tablet Completed 08/2019 oxycodone 5 mg tablet Completed 01/26/2020 oxycodone-acetaminophen 5 mg-325 mg tablet Active Not available pantoprazole 40 mg tablet,delayed release Active Not available prednisolone acetate 1 % eye drops,suspension Active Not available Prevnar 13 (PF) 0.5 mL intramuscular syr madhu PHARMACIST ADMINISTERED IMMUNIZATION ADMINISTERED AT TIME OF DISPENSING Active Not available Restasis 0.05 % eye drops in a dropperette Completed 08/19/2018 Restasis MultiDose 0.05 % eye drops three times a day Active Not available sertraline 50 mg tablet Active Not avai lable Spiriva Respimat 1.25 mcg/actuation solution for inhalation Acti ve Not available sucralfate 1 gram tablet Active Not laith ilable sulfamethoxazole 800 mg-trimethoprim 160 mg tablet Completed 01/09/2018 terconazole 0.8 % vaginal cream Completed 01/09/2018 tizanidine 4 mg tablet Take by oral route for 10 days. Completed 019 topiramate 100 mg tablet Active Not laith ilable tramadol 50 mg tablet Take 3 tablets every day by oral route at bedtime. Completed 03/09/2020 trazodone 100 mg tablet Active Not avai lable trazodone 50 mg tablet Completed 0 Problems Name Status Onset Date Source Migraine Active 04/10/2012 History Hypertensive Disorder Active 04/10/2012 History Spondylosis without Myelopathy Active 04/10/2012 H istory Degeneration of Cervical Intervertebral Disc Active History Degeneration of Lumbosacral Intervertebral Disc Unknown 04/10/2012 History Degeneration of Lumbar Intervertebral Disc Active 04/10 History Post-laminectomy Syndrome Active 04/10/2012 Histor y Cervico-occipital Neuralgia Active 04/10/2012 Hist ory Joint Finding Active 04/10/2012 History Fibromyalgia Active 06/26/2012 History Inflammation of Sacroiliac Joint Unknown 09/05/2012 History Lumbosacral Radiculopathy Active 04/18/2013 Histor y Sciatic Neuropathy Active 09/15/2013 History Enthesopathy of Hip Region Unknown 03/26/2014 Histo ry Trochanteric Tendinitis Active 03/26/2014 History Prolapsed Lumbar Intervertebral Disc Active 12/02/2015 History Procedures Date Name Performed by 06/22/2020 Operation on Heart Valve Information not available 01/21/2020 Operation on Heart Valve Information not available 10/19/2019 Neurostimulation of Spinal Cord Tissue I nformation not available 03/18/2019 Hammer Toe Operation Notes: Information not available 02/19/2013 Foot/toes Surgery Procedure Notes: neuroma removed in right foot Information not available 02/19/2013 Knee Arthroscopy/surgery Notes: Information not available 02/19/2013 Shoulder Surgery Notes: bilateral Information not available 02/19/2002 Back Surgery Information not avai lable 02/20/1996 Neck Surgery Information not avai lable 02/20/1988 Section Notes: x2 1985 ,1988 Information not available 02/19/1963 Tonsillectomy Information not avai lable Hysterectomy/bladder Repair Information not available Notes: in 1985 and 1988, tonsi llectomy/adenoidectomy, neck surgery 1992, back surgery x 2 (1996,[address] Lo), DCS implant in 2013 by Robert Dela Cruz and Dr. Castillo, right shoulder in 2014, left shoulder on 06/15/2015. 09/07/2016 Results Lab Results None recorded. Past Encounters 11/19/2020 Lumbar Post-laminectomy Syndrome; Degeneration of Lumbar Intervertebral Disc; Degeneration of Lumbosacral Intervertebral Disc; Displacement of Lumbar Intervertebral Disc without Myelopathy; Intervertebral Disc Disorder; Spondylosis without Myelopathy; Lumbosacral Spondylosis without Myelopathy; Lumbar Radiculopathy; Fibromyalgia; Trochanteric Tendinitis; Cervico-occipital Neuralgia; Degeneration of Cervical Intervertebral Disc; Myofascial Pain Razia Hussein NP: [id number] [address], Ph. 03/09/2020 Lumbar Post-laminectomy Syndrome; Degeneration of Lumbar Intervertebral Disc; Degeneration of Lumbosacral Intervertebral Disc; Displacement of Lumbar Intervertebral Disc without Myelopathy; Intervertebral Disc Disorder; Spondylosis without Myelopathy; Lumbosacral Spondylosis without Myelopathy; Lumbar Radiculopathy; Fibromyalgia; Trochanteric Tendinitis; Cervico-occipital Neuralgia; Degeneration of Cervical Intervertebral Disc; Myofascial Pain Razia Hussein KENNEL ASSISTANT: [id number] [facility] [address], [facility] [email or web address] [place] [address], Ph. 01/26/2020 Lumbar Post-laminectomy Syndrome; Degeneration of Lumbar Intervertebral Disc; Degeneration of Lumbosacral Intervertebral Disc; Displacement of Lumbar Intervertebral Disc without Myelopathy; Intervertebral Disc Disorder; Spondylosis without Myelopathy; Lumbosacral Spondylosis without Myelopathy; Lumbar Radiculopathy; Fibromyalgia; Trochanteric Tendinitis; Cervico-occipital Neuralgia; Degeneration of Cervical Intervertebral Disc Razia Hussein KENNEL ASSISTANT: [id number] [address], Ph. 12/15/2019 Lumbar Post-laminectomy Syndrome; Degeneration of Lumbar Intervertebral Disc; Degeneration of Lumbosacral Intervertebral Disc; Displacement of Lumbar Intervertebral Disc without Myelopathy; Intervertebral Disc Disorder; Spondylosis without Myelopathy; Lumbosacral Spondylosis without Myelopathy; Lumbar Radiculopathy; Fibromyalgia; Trochanteric Tendinitis; Cervico-occipital Neuralgia; Degeneration of Cervical Intervertebral Disc Razia Hussein KENNEL ASSISTANT: [id number] [address], Ph. 11/07/2019 Lumbar Post-laminectomy Syndrome; Degeneration of Lumbar Intervertebral Disc; Degeneration of Lumbosacral Intervertebral Disc; Displacement of Lumbar Intervertebral Disc without Myelopathy; Intervertebral Disc Disorder; Spondylosis without Myelopathy; Lumbosacral Spondylosis without Myelopathy; Lumbar Radiculopathy; Fibromyalgia; Trochanteric Tendinitis; Cervico-occipital Neuralgia; Degeneration of Cervical Intervertebral Disc Razia Hussein KENNEL ASSISTANT: [id number] [address], Ph. 04/21/2019 Lumbar Post-laminectomy Syndrome; Degeneration of Lumbar Intervertebral Disc; Degeneration of Lumbosacral Intervertebral Disc; Displacement of Lumbar Intervertebral Disc without Myelopathy; Intervertebral Disc Disorder; Spondylosis without Myelopathy; Lumbosacral Spondylosis without Myelopathy; Lumbar Radiculopathy; Fibromyalgia; Trochanteric Tendinitis; Cervico-occipital Neuralgia; Degeneration of Cervical Intervertebral Disc Razia Hussein KENNEL ASSISTANT: [id number] [address], Ph. 03/03/2019 Lumbar Post-laminectomy Syndrome; Degeneration of Lumbar Intervertebral Disc; Degeneration of Lumbosacral Intervertebral Disc; Displacement of Lumbar Intervertebral Disc without Myelopathy; Intervertebral Disc Disorder; Spondylosis without Myelopathy; Lumbosacral Spondylosis without Myelopathy; Lumbar Radiculopathy; Fibromyalgia; Trochanteric Tendinitis; Cervico-occipital Neuralgia; Degeneration of Cervical Intervertebral Disc Razia Hussein KENNEL ASSISTANT: [id number] [address], [place] [address], Ph. 01/07/2019 Lumbar Post-laminectomy Syndrome; Degeneration of Lumbar Intervertebral Disc; Degeneration of Lumbosacral Intervertebral Disc; Displacement of Lumbar Intervertebral Disc without Myelopathy; Intervertebral Disc Disorder; Spondylosis without Myelopathy; Lumbosacral Spondylosis without Myelopathy; Lumbar Radiculopathy; Fibromyalgia; Trochanteric Tendinitis; Cervico-occipital Neuralgia; Degeneration of Cervical Intervertebral Disc Razia Hussein NP: [id number] [address] [address], [place] [address], Ph. 11/26/2018 Lumbar Post-laminectomy Syndrome; Degeneration of Lumbar Intervertebral Disc; Degeneration of Lumbosacral Intervertebral Disc; Displacement of Lumbar Intervertebral Disc without Myelopathy; Intervertebral Disc Disorder; Spondylosis without Myelopathy; Lumbosacral Spondylosis without Myelopathy; Lumbar Radiculopathy; Fibromyalgia; Trochanteric Tendinitis; Cervico-occipital Neuralgia; Degeneration of Cervical Intervertebral Disc Razia Hussein KENNEL ASSISTANT: [id number] [address] [address], [place] [address], Ph. 09/25/2018 Cervical Spondylosis without Myelopathy; Degeneration of Cervical Intervertebral Disc; Lumbar Post-laminectomy Syndrome; Degeneration of Lumbar Intervertebral Disc; Degeneration of Lumbosacral Intervertebral Disc; Displacement of Lumbar Intervertebral Disc without Myelopathy; Intervertebral Disc Disorder; Spondylosis without Myelopathy; Lumbosacral Spondylosis without Myelopathy; Lumbar Radiculopathy; Fibromyalgia; Trochanteric Tendinitis; Cervico-occipital Neuralgia Hakan Crawford MD: [id number] [facility] [address], [place] [address], Ph. 09/11/2018 Lumbar Post-laminectomy Syndrome; Degeneration of Lumbar Intervertebral Disc; Degeneration of Lumbosacral Intervertebral Disc; Displacement of Lumbar Intervertebral Disc without Myelopathy; Intervertebral Disc Disorder; Spondylosis without Myelopathy; Lumbosacral Spondylosis without Myelopathy; Lumbar Radiculopathy; Fibromyalgia; Trochanteric Tendinitis; Cervico-occipital Neuralgia; Degeneration of Cervical Intervertebral Disc Razia Hussein, KENNEL ASSISTANT: [id number] [facility] [address], [facility] [email or web address] [place] [address], Ph. 08/29/2018 Lumbar Post-laminectomy Syndrome; Degeneration of Lumbar Intervertebral Disc; Degeneration of Lumbosacral Intervertebral Disc; Displacement of Lumbar Intervertebral Disc without Myelopathy; Intervertebral Disc Disorder; Spondylosis without Myelopathy; Lumbosacral Spondylosis without Myelopathy; Lumbar Radiculopathy; Fibromyalgia; Trochanteric Tendinitis; Cervico-occipital Neuralgia; Degeneration of Cervical Intervertebral Disc Hakan Crawford MD: [id number] [address] [address], [facility] [email or web address] [place] [address], Ph. 08/26/2018 Lumbar Post-laminectomy Syndrome; Lumbar Radiculopathy; Degeneration of Lumbar Intervertebral Disc; Degeneration of Lumbosacral Intervertebral Disc; Displacement of Lumbar Intervertebral Disc without Myelopathy; Intervertebral Disc Disorder; Spondylosis without Myelopathy; Lumbosacral Spondylosis without Myelopathy; Fibromyalgia; Trochanteric Tendinitis; Cervico-occipital Neuralgia; Degeneration of Cervical Intervertebral Disc Hakan Crawford MD: [id number] [place] [address], Ph. 08/19/2018 Lumbar Post-laminectomy Syndrome; Degeneration of Lumbar Intervertebral Disc; Degeneration of Lumbosacral Intervertebral Disc; Displacement of Lumbar Intervertebral Disc without Myelopathy; Intervertebral Disc Disorder; Spondylosis without Myelopathy; Lumbosacral Spondylosis without Myelopathy; Lumbar Radiculopathy; Fibromyalgia; Trochanteric Tendinitis; Cervico-occipital Neuralgia; Degeneration of Cervical Intervertebral Disc Hakan Crawford MD: [id number] [facility] [address], [facility] [email or web address] [place] [address], Ph. 08/12/2018 Prolapsed Lumbar Intervertebral Disc; Fibromyalgia; Lumbosacral Radiculopathy; Degeneration of Lumbar Intervertebral Disc; Post-laminectomy Syndrome; Trochanteric Tendinitis; Sciatic Neuropathy; Spondylosis without Myelopathy; Degeneration of Cervical Intervertebral Disc; Cervico-occipital Neuralgia Razia Hussein KENNEL ASSISTANT: [id number] [address], Ph. 07/01/2018 Prolapsed Lumbar Intervertebral Disc; Fibromyalgia; Lumbosacral Radiculopathy; Degeneration of Lumbar Intervertebral Disc; Post-laminectomy Syndrome; Trochanteric Tendinitis; Sciatic Neuropathy; Spondylosis without Myelopathy; Degeneration of Cervical Intervertebral Disc; Cervico-occipital Neuralgia Razia Hussein, KENNEL ASSISTANT: [id number] [address], Ph. 05/20/2018 Prolapsed Lumbar Intervertebral Disc; Fibromyalgia; Lumbosacral Radiculopathy; Degeneration of Lumbar Intervertebral Disc; Post-laminectomy Syndrome; Trochanteric Tendinitis; Sciatic Neuropathy; Spondylosis without Myelopathy; Degeneration of Cervical Intervertebral Disc; Cervico-occipital Neuralgia Razia Hussein, KENNEL ASSISTANT: [id number] [address], Ph. 04/22/2018 Prolapsed Lumbar Intervertebral Disc; Fibromyalgia; Lumbosacral Radiculopathy; Degeneration of Lumbar Intervertebral Disc; Post-laminectomy Syndrome; Trochanteric Tendinitis; Sciatic Neuropathy; Spondylosis without Myelopathy; Degeneration of Cervical Intervertebral Disc; Cervico-occipital Neuralgia Razia Hussein, KENNEL ASSISTANT: [id number] [address], Ph. 02/05/2018 Prolapsed Lumbar Intervertebral Disc; Fibromyalgia; Lumbosacral Radiculopathy; Degeneration of Lumbar Intervertebral Disc; Post-laminectomy Syndrome; Trochanteric Tendinitis; Sciatic Neuropathy; Spondylosis without Myelopathy; Degeneration of Cervical Intervertebral Disc; Cervico-occipital Neuralgia Hakan Crawford MD: [id number] [address], Ph. 01/09/2018 Prolapsed Lumbar Intervertebral Disc; Fibromyalgia; Lumbosacral Radiculopathy; Degeneration of Lumbar Intervertebral Disc; Post-laminectomy Syndrome; Trochanteric Tendinitis; Sciatic Neuropathy; Spondylosis without Myelopathy; Degeneration of Cervical Intervertebral Disc; Cervico-occipital Neuralgia Razia Alcon Hussein, KENNEL ASSISTANT: [address], [address], [place] [address], Ph. Social History Tobacco Smoking Status Never Smoker Vaccine List None recorded. Plan of Care Reminders Provider Appointments None recorded. Lab None recorded. Referral None recorded. Procedures None recorded. Surgeries None recorded. Imaging None recorded. Vitals 11/19/2020 09:45AM FOLLOW-UP Height Blood Pressure 5 ft 2 in 126/92 mm[Hg] 03/09/2020 11:30AM FOLLOW-UP Height Blood Pressure 5 ft 2 in 161/89 mm[Hg] 01/26/2020 11:15AM FOLLOW-UP Height Blood Pressure 5 ft 2 in 166/95 mm[Hg] 12/15/2019 11:00AM FOLLOW-UP Height Blood Pressure 5 ft 2 in 175/95 mm[Hg] 11/07/2019 10:30AM FOLLOW-UP Height Blood Pressure 5 ft 2 in 147/87 mm[Hg] 04/21/2019 10:00AM FOLLOW-UP Height Blood Pressure 5 ft 2 in 147/87 mm[Hg] 03/03/2019 01:00PM FOLLOW-UP Height Blood Pressure 5 ft 2 in 155/97 mm[Hg] 01/07/2019 03:00PM FOLLOW-UP Height Weight BMI Blood Pressure 5 ft 2 in 190 lbs 34.8 kg/m2 196/105 mm[Hg] 11/26/2018 03:30PM FOLLOW-UP Height Weight BMI Blood Pressure 5 ft 2 in 190 lbs 34.8 kg/m2 135/93 mm[Hg] 09/11/2018 01:45PM FOLLOW-UP Height Weight BMI Blood Pressure 5 ft 2 in 190 lbs 34.8 kg/m2 148/90 mm[Hg] 08/29/2018 01:00PM FOLLOW-UP Height Weight BMI Blood Pressure 5 ft 2 in 190 lbs 34.8 kg/m2 158/95 mm[Hg] 08/26/2018 02:30PM Spinal cord stimulator phase I Height 5 ft 2 in 08/19/2018 01:00PM FOLLOW-UP Height Weight BMI Blood Pressure 5 ft 2 in 190 lbs 34.8 kg/m2 139/88 mm[Hg] 08/12/2018 11:15AM FOLLOW-UP Height Blood Pressure 5 ft 2 in 136/86 mm[Hg] 07/01/2018 11:15AM FOLLOW-UP Height Blood Pressure 5 ft 2 in 162/92 mm[Hg] 05/20/2018 11:00AM FOLLOW-UP Height Weight BMI Blood Pressure 5 ft 2 in 190 lbs 34.8 kg/m2 165/92 mm[Hg] 04/22/2018 11:30AM FOLLOW-UP Height Weight BMI Blood Pressure 5 ft 2 in 190 lbs 34.8 kg/m2 133/80 mm[Hg] 02/05/2018 01:00PM FOLLOW-UP Height Blood Pressure 5 ft 2 in 154/90 mm[Hg] 01/09/2018 01:30PM FOLLOW-UP Height Weight BMI Blood Pressure 5 ft 2 in 190 lbs 34.8 kg/m2 167/85 mm[Hg] 12/13/2017 Blood Pressure 149/96 mm[Hg] 11/16/2017 Blood Pressure 82/53 mm[Hg] 10/05/2017 Blood Pressure 136/88 mm[Hg] 08/24/2017 Weight BMI Blood Pressure 178 lbs 30.66 kg/m2 147/87 mm[Hg] 07/27/2017 Weight BMI Blood Pressure 178 lbs 30.66 kg/m2 110/72 mm[Hg] 06/15/2017 Weight BMI Blood Pressure 178 lbs 30.66 kg/m2 120/78 mm[Hg] 05/17/2017 Weight BMI Blood Pressure 178 lbs 30.66 kg/m2 114/70 mm[Hg] 03/23/2017 Weight BMI Blood Pressure 178 lbs 30.66 kg/m2 129/85 mm[Hg] 02/07/2017 Blood Pressure 133/83 mm[Hg] 01/15/2017 Blood Pressure 139/91 mm[Hg] 12/21/2016 Blood Pressure 143/88 mm[Hg] 12/07/2016 Weight BMI Blood Pressure 178 lbs 30.66 kg/m2 119/83 mm[Hg] 10/26/2016 Weight BMI Blood Pressure 166 lbs 28.60 kg/m2 110/79 mm[Hg] 09/28/2016 Blood Pressure 135/88 mm[Hg] 09/07/2016 Blood Pressure 109/73 mm[Hg] 07/27/2016 Blood Pressure 104/70 mm[Hg] 06/15/2016 Blood Pressure 136/89 mm[Hg] 05/18/2016 Blood Pressure 139/93 mm[Hg] 03/02/2016 Blood Pressure 166/75 mm[Hg] 02/23/2016 Blood Pressure (1) 145/102 mm[Hg] (2) 162/102 mm[Hg] 02/02/2016 Blood Pressure 171/99 mm[Hg] 01/17/2016 Blood Pressure 131/87 mm[Hg] 12/29/2015 Blood Pressure 175/90 mm[Hg] 12/02/2015 Blood Pressure 138/86 mm[Hg] 11/09/2015 Blood Pressure 118/82 mm[Hg] 11/03/2015 Blood Pressure 129/79 mm[Hg] 11/01/2015 Blood Pressure 132/82 mm[Hg] 09/20/2015 Blood Pressure 137/95 mm[Hg] 08/04/2015 Blood Pressure 102/76 mm[Hg] 06/23/2015 Blood Pressure 93/69 mm[Hg] 05/10/2015 Blood Pressure 154/90 mm[Hg] 04/12/2015 Blood Pressure 157/85 mm[Hg] 03/31/2015 Blood Pressure 153/97 mm[Hg] 03/18/2015 Blood Pressure 158/97 mm[Hg] 03/15/2015 Blood Pressure 109/73 mm[Hg] 03/08/2015 Blood Pressure 145/94 mm[Hg] 02/26/2015 Blood Pressure 130/84 mm[Hg] 02/11/2015 Blood Pressure 120/85 mm[Hg] 11/03/2014 Blood Pressure 118/82 mm[Hg] 10/14/2014 Blood Pressure 142/81 mm[Hg] 10/09/2014 Blood Pressure 164/98 mm[Hg] 09/18/2014 Blood Pressure 152/85 mm[Hg] 09/10/2014 Blood Pressure 124/73 mm[Hg] 08/06/2014 Blood Pressure 132/79 mm[Hg] 07/03/2014 Blood Pressure 136/93 mm[Hg] 07/01/2014 Blood Pressure 134/89 mm[Hg] 06/17/2014 Blood Pressure 120/76 mm[Hg] 05/20/2014 Blood Pressure 134/89 mm[Hg] 05/06/2014 Blood Pressure 115/76 mm[Hg] 04/30/2014 Weight BMI Blood Pressure 200 lbs 34.45 kg/m2 104/73 mm[Hg] 04/06/2014 Blood Pressure 143/86 mm[Hg] 03/26/2014 Blood Pressure 116/77 mm[Hg] 03/05/2014 Blood Pressure 160/98 mm[Hg] 02/03/2014 Blood Pressure 156/87 mm[Hg] 12/26/2013 Blood Pressure 116/83 mm[Hg] 11/10/2013 Blood Pressure 142/89 mm[Hg] 10/13/2013 Blood Pressure 93/75 mm[Hg] 09/15/2013 Blood Pressure 117/80 mm[Hg] 08/11/2013 Weight BMI Blood Pressure 197 lbs 33.94 kg/m2 143/85 mm[Hg] 06/30/2013 Blood Pressure 132/86 mm[Hg] 05/19/2013 Blood Pressure 122/76 mm[Hg] 04/23/2013 Blood Pressure 113/84 mm[Hg] 04/18/2013 Blood Pressure 146/93 mm[Hg] 04/14/2013 Blood Pressure 122/85 mm[Hg] 03/25/2013 Weight BMI Blood Pressure 195.8 lbs 33.73 kg/m2 119/82 mm[Hg] 01/22/2013 Blood Pressure 130/94 mm[Hg] 12/24/2012 Blood Pressure 135/89 mm[Hg] 12/10/2012 Blood Pressure 157/91 mm[Hg] 11/06/2012 Weight BMI Blood Pressure 199.8 lbs 34.42 kg/m2 150/96 mm[Hg] 10/14/2012 Blood Pressure 142/92 mm[Hg] 09/30/2012 Blood Pressure 132/82 mm[Hg] 09/24/2012 Weight BMI Blood Pressure 199.8 lbs 34.42 kg/m2 132/87 mm[Hg] 07/29/2012 Weight BMI Blood Pressure 199.8 lbs 34.42 kg/m2 123/79 mm[Hg] 06/10/2012 Weight BMI Blood Pressure 199.8 lbs 34.42 kg/m2 138/93 mm[Hg] 04/10/2012 Height Weight BMI Blood Pressure 5 ft 4 in 199.8 lbs 34.42 kg/m2 125/80 mm[Hg]
--- OUTSIDE RECORDS SUMMARY | 2020-12-09 09:35 | CCD | Continuity of Care Document ---
Author Author Lianne SPANGLER PA Organization Unknown Address [address] [facility] [address] [place] [address] Phone [phone] Care Team Providers Care Allied Health Instructor Name Role Phone Cortney Diaz MD AUTM [phone] Ragini Galvin AUTM [phone] Forrest Cuellar MD AUTM Pancho Mayorga MD AUTM [phone] Bill Tapia MD AUTM [phone] [facility] AUTM [phone] [facility] AUTM [phone] Problems Active Problems Provider Date Disorder of [...] day 30tabs Bill Tapia M.D. 07/02/2020 Nystatin 427893Apcm/GM Cream apply to affected area twice a day 90gm Bill Tapia M.D. 0 11/04/2019 Nystatin 272362Kbkp/GM Ointment topical three times a day as [...] day Bill Tapia M.D. 06/29/2014 Calcium 600+D [id number] Table ts 1 po bid Bill Tapia M.D. 06/29/2014 Carafate 1gm Tablets one tablet daily before meals and at bedtime 120tabs Bill Tapia M.D. 06/29/[address] 1 by mouth twice a day 180tabs Bill Tapia M.D. 06/29/2014 Multivitamins Capsules 1 by mouth every day Bill Tapia M.D. 06/29/2014 Montelukast Sodium 10mg Tablets 1 by mouth every day 90tabs Bill Tapia M.D. 06/29/2014 Cetirizine HCL 10mg Tablets 1 by [...] by mouth twice a day Ragini Galvin [place] 10-325mg Tablets 1 by mouth every 8 [...] Vaccine Lot # U-Flu Given 11/24/2019 Influenza,Unspecified [id number] Given 11/24/2019 Prevnar 13 U-Flu Given 11/27/2018 Influenza,Unspecified U-DtapHi Given 04/02/2017 DTap,Hib,IPV,Unspecified Q2037 Given 11/29/2015 Fluvirin Virus Vaccine 47985 01 Q2037 Given 12/30/2014 Fluvirin Virus Vaccine [id number] 01 Vital Signs Date Vital Result Comment [...] H/L Range Note Laboratory test finding 11/12/[address] [address] [phone] Erythrocyte Sedimentation Rate 37 mm/hr High 0 -30 Basic Metabolic Profile 11/12/[address] [address] [phone] Glucose, Fasting 78 mg/dL Normal 70-100 Blood [...] mg/dL Low 8.8-10.2 Laboratory test finding 11/12/[address] [address] [phone] C Reactive Protein Quantitativ 3.05 mg/dL High 0 .00-0.30 CBC With Differential 11/12/[address] [address] [phone] White Blood Count 8.8 10 Normal 4.0-10.0 [...] 36.0-66.0 Lymph % 21.0 % Low 24.0-44.0 [place] % 7.6 % Normal 2.0-8.0 Eos % 1.3 % Normal 0.0-3.0 Baso % 0.6 % Normal 0.0-1.0 Immature Granulocyte % 0.3 % Normal 0-3.0 Nucleated Red Blood Cell % 0.0 % Normal 0-0 Neutrophils # 6.1 10 Normal 1.5-8.5 Lymph # 1.8 10 Normal 1.5-5.0 [place] # 0.7 10 Normal 0.0-0.8 Eos # 0.1 10 Normal 0.0-0.5 Baso # 0.1 10 Normal 0.0-0.2 Basic Metabolic Panel 11/10/2020 [facility] Cop: [place] [address] [phone] Glucose 79 mg/dL 74 - 99 3 [...] mL/min >60 4 Complete Blood Count 11/10/2020 [facility] Cop: [place] [address] [phone] WBC 9.2 x10*3/UL 4.1 - 10.9 RBC [...] 2.0 - 7.8 Laboratory test finding 11/01/[address] [address] [phone] Urine Culture FULL REPORT IN L <SEE NOTE> Normal 5 Ua Routine 11/01/2020 [facility] nter [address] [place] [address] [phone] Appearance, Urine HAZY Normal Clear Color, Urine STRAW Normal Yellow PH,Urine 6.0 units Normal 5.0-9.0 Specific [place] Urine Auto 1.003 Normal 1.002-1.035 Protein, Urine [...] /LPF Normal 0-1 PT & Aptt 11/01/2020 [facility] nter [address] [place] [address] [phone] Prothrombin Time 12.2 seconds Normal 12.7-14.5 Inr 0.87 Normal 6 Partial Thromboplastin Time 25.9 seconds Normal 25.9-37.0 CBC With Differential 11/01/[address] [address] [phone] White Blood Count 10.2 10 High 4.0-10.0 [...] 36.0-66.0 Lymph % 23.4 % Low 24.0-44.0 [place] % 6.9 % Normal 2.0-8.0 Eos % 0.4 % Normal 0.0-3.0 Baso % 0.7 % Normal 0.0-1.0 Immature Granulocyte % 0.4 % Normal 0-3.0 Nucleated Red Blood Cell % 0.0 % Normal 0-0 Neutrophils # 7.0 10 Normal 1.5-8.5 Lymph # 2.4 10 Normal 1.5-5.0 [place] # 0.7 10 Normal 0.0-0.8 Eos # 0.0 10 Normal 0.0-0.5 Baso # 0.1 10 Normal 0.0-0.2 Istat Chem8+ Panel 11/01/2020 [facility] nter [address] [place] [address] [phone] iSTAT HCT 41.0 % Normal 38.0-51.0 iSTAT Glucose 82 mg/dL Normal 70-105 iSTAT Sodium 137 mEq/L Normal 136-145 iSTAT Potassium 3.4 mEq/L Low 3.5-5.1 iSTAT CA++ 4.7 mg/dL Normal 4.5-5.3 iSTAT Chloride 105 mEq/L Normal 98-109 iSTAT Co2 21.0 MM/L Low 23.0-27.0 iSTAT BUN 5 mg/dL Low 8-26 iSTAT Creatinine 0.6 mg/dL Normal 0.6-1.3 Laboratory test finding 10/04/2020 [facility] [address] [place] [address] [phone] Urine Culture FULL REPORT IN L <SEE NOTE> Normal 7 Periph Smear For Oncol. Review 10/04/2020 [facility] [address] [place] [address] [phone] Slide Review Report Normal 8 Source PERIPHERAL SMEAR Normal 9 Reason For Review WBC/LEUKEMIA/CHRISTOPHER <SEE NOTE> Normal 10 Complete Blood Count 10/04/2020 [facility] Cop: [place] [address] [phone] WBC 13.3 x10*3/UL High 4.1 - 10.9 [...] 2.0 - 7.8 Basic Metabolic Panel 10/04/2020 [facility] Cop: [place] [address] [phone] Glucose 84 mg/dL 74 - 99 12 [...] mL/min >60 13 Ua Dipstick Only 10/04/2020 [facility] Cop: Dr [place] [address] [phone] Urine Color YELLOW Yellow Urine Appearance SL. HAZY Abnormal Clear Urine PH 6.5 units 5.0 - 9.0 Urine Specific [place] 1.005 1.005 - 1.030 Urine Leukocytes LARGE Abnormal Negative Urine Blood TRACE Abnormal Negative Urine Protein NEGATIVE Negative -Trace Urine Glucose NEGATIVE mg/dL Negative Urine Nitrite NEGATIVE Negative Urine Ketone NEGATIVE mg/dL Negative Urine Bilirubin NEGATIVE Negative Urine Urobilinogen 0.2 mg/dL 0.2 - 1.0 Laboratory test finding 10/04/2020 [facility] [address] [place], [place] [address] [phone] Pathology Request For Service (SEE NOTE) 14 Complete Blood Count 09/30/2020 [facility] Cop: [place] [address] [phone] WBC 13.2 x10*3/UL High 4.1 - 10.9 [...] 2.0 - 7.8 Comprehensive Chem Profile 09/30/2020 [facility] Cop: [place] [address] [phone] Glucose 103 mg/dL High 74 - 99 [...] 60 mL/min >60 18 Lipid Profile 09/30/2020 [facility] Cop: [place] [address] [phone] Cholesterol 163 mg/dL 131 - 200 Triglycerides 93 mg/dL 30 - 150 HDL Cholesterol 72 mg/dL High 35 - 60 LDL (Calculated) 72 CALC 50 - 159 Laboratory test finding 09/30/2020 [facility] Cop: [place] [address] [phone] Thyroid Stimulating Hormone 0.38 uIU/mL 0.3 6 - 3.74 T4 Free 1.21 ng/dL 0.76 - 1.46 Coronavirus 2019 Nasopharygeal 06/17/[address] [address] [phone] Coronavirus 2019 Nasopharygeal ASSAY INFORMATIO <SEE N OTE> 19 1 Units are mL/min/1.73 m2 Chronic Kidney Disease Staging per NKF: Stage I & II GFR >=60 Normal to Mildly Decreased Stage III GFR 30-59 Moderately Decreased Stage IV GFR 15-29 Severely Decreased Stage V GFR <15 Very Little GFR Left ESRD GFR <15 on GENERAL TELLER 2 Testing was performed on a h [...] LITTLE GFR LEFT ESRD GFR <15 ON GENERAL TELLER 5 FULL REPORT IN LAB NOTES (eC [...] LITTLE GFR LEFT ESRD GFR <15 ON GENERAL TELLER 14 10/05/2020 - 08 PERPHERAL SMEAR REVIEW Peripheral smear: Leukocytosis associated [...] LITTLE GFR LEFT ESRD GFR <15 ON GENERAL TELLER 19 ASSAY INFORMATION: Real Time RT-PCR NOTE: The COVID-19 assay has been cleared by the U.S. Food and Drug Administration under the Emergency Use Authorization (EUA). [employer] [facility] [employer] are designated as high complexity laboratories by the Clinical Laboratory Improvement Amendments of 1988(CLIA) and are qualified to perform this test. Not Detected Procedures Date Code Description Status 11/11/2020 47315 Office/Outpatient Established Lo w MDM 20-29 Min Completed 11/10/2020 88247 Office/Outpatient Established Mo d MDM 30-39 Min Completed 11/01/2020 61317 Office/Outpatient Established Lo w MDM 20-29 Min Completed 10/04/2020 54528 Office/Outpatient Established Mo d MDM 30-39 Min Completed 08/31/2020 36627 Chronic Care MGMT 20 Mins Clinical Staff Time Per Calendar Month Completed 07/14/2020 58668 Chronic Care MGMT 20 Mins Clinical Staff Time Per Calendar Month Completed 07/14/2020 31238 [facility] Management [facility] Ea Addl 20 Min Completed 06/17/2020 16891 Chronic Care MGMT 20 Mins Clinical Staff Time Per Calendar Month Completed 06/17/2020 35818 Chronic Care Management Services Ea Addl 20 Min Completed 08/24/2011 86224969 Mammogram Completed 07/23/2009 490611657 Bone Mineral Density Test Comple [employer] Description No Information Available Encounters Type Date Location Provider Dx Diagnosis Office Visit 11/11/2020 [facility] L03.115 Cellulitis of right lower li mb R60.0 Localized edema Office Visit 11/10/2020 1:[facility]p [facility] L03.115 Cellulitis of right lower li mb R60.0 Localized edema Office Visit 11/01/2020 10:[facility]a [facility] S81.011A Laceration without foreign b earlene, right knee, init encntr S61.012A Laceration w/o fb of left th umb w/o damage to nail, init S09.90xA Unspecified injury of head, initial encounter W10.1xxA Fall (on)(from) sidewalk cur b, initial encounter Y92.[address] of occurrence of the external cause I25.10 Athscl heart disease of [place] coronary artery w/o ang pctrs Office Visit 10/04/2020 11:30a [facility] Bill Tapia M.D. E78.00 Pure hypercholesterolemia, unspecified E03.9 Hypothyroidism, unspecified G47.33 Obstructive sleep apnea (ricki lt) (pediatric) K21.9 Gastro-esophageal reflux dis ease without esophagitis F34.1 Dysthymic disorder I25.10 Athscl heart disease of [place] coronary artery w/o ang pctrs I42.9 Cardiomyopathy, unspecified G43.001 Migraine w/o aura, not intra ctable, with status migrainosus M54.5 Low back pain M79.7 Fibromyalgia Assessments Date Code Description Provider 11/12/2020 L03.115 Cellulitis of right lower limb R RADHA Burk JR 11/12/2020 R22.41 Localized swelling, mass and lum p, right lower limb RADHA Marin JR 11/11/2020 L03.115 Cellulitis of right lower [...] 11/01/2020 I25.10 Atherosclerotic hear t disease of [place] coronary artery without angina pectoris RADHA Marin JR 10/04/2020 E78.00 Pure hypercholesterolemia, unspe cified Bill Tapia M.D. 10/04/2020 E03.9 Hypothyroidism, unspecified Jonathan Tapia M.D. 10/04/2020 G47.33 Obstructive sleep apnea (adult) (pediatric) Bill Tapia M.D. 10/04/2020 K21.9 Gastro-esophageal reflux disease without esophagitis Bill Tapia M.D. 10/04/2020 F34.1 Dysthymic disorder Bill fisher M.D. 10/04/2020 I25.10 Atherosclerotic hear t disease of [place] coronary artery without angina pectoris Bill Tapia [...] 10:30 am - Bill Tapia M.D. at [facility]. 10/04/2020 - Bill Tapia M.D.* E78.00 Pure hypercholesterolemia, unspecified * E03.9 Hypothyroidism, unspecified * G47.33 Obstructive sleep apnea (adult) (pediatric) * K21.9 Gastro-esophageal reflux disease without esophagitis * F34.1 Dysthymic disorder * I25.10 Athscl heart disease of [place] coronary artery w/o ang pctrs * I42.9 [...] continue and monitor.6. Athscl heart disease of [place] coronary artery w/o ang pctrs: Doing well [...] and is following up Reuben Mederos at [facility] for Botox injections who left the practice. She was under the care of [facility] prior for migraine. She will continue to work with at [facility] to optimize her headaches.9. Low back pain: [...]
--- OUTSIDE RECORDS SUMMARY | 2020-12-09 09:35 | CCD | Continuity of Care Document ---
Author Author Lianne TAPIA M.D. Organization Unknown Address [address] [facility] [address] [place] [address] Phone [phone] Care Team Providers Care Substance Abuse Rn Name Role Phone Cortney Diaz MD AUTM [phone] Ragini Galvin AUTM [phone] Forrest Cuellar MD AUTM [phone] Pancho Mayorga MD AUTM [phone] Bill Tapia MD AUTM [phone] [facility] Lab AUTM [phone] [facility] AUTM [phone] Problems Active Problems Provider Date Disorder of [...] day 30tabs Bill Tapia M.D. 07/02/2020 Nystatin 223432Bnya/GM Cream apply to affected area twice a day 90gm Bill Tapia M.D. 0 11/04/2019 Nystatin 446465Tgcw/GM Ointment topical three times a day as [...] day Bill Tapia M.D. 06/29/2014 Calcium 600+D [id number] Table ts 1 po bid Bill Tapia [...] by mouth twice a day Ragini Galvin [place] 10-325mg Tablets 1 by mouth every 8 [...] Vaccine Lot # U-Flu Given 11/24/2019 Influenza,Unspecified 71265 Given 11/24/2019 Prevnar 13 U-Flu Given 11/27/2018 Influenza,Unspecified U-DtapHi Given 04/02/2017 DTap,Hib,IPV,Unspecified Q2037 Given 11/29/2015 Fluvirin Virus Vaccine 05343 01 Q2037 Given 12/30/2014 Fluvirin Virus Vaccine 67353 01 Vital Signs Date Vital Result Comment [...] H/L Range Note Laboratory test finding 11/12/[address] [address] [phone] Erythrocyte Sedimentation Rate 37 mm/hr High 0 -30 Basic Metabolic Profile 11/12/[address] [address] [phone] Glucose, Fasting 78 mg/dL Normal 70-100 Blood [...] mg/dL Low 8.8-10.2 Laboratory test finding 11/12/[address] [address] [phone] C Reactive Protein Quantitativ 3.05 mg/dL High 0 .00-0.30 CBC With Differential 11/12/[address] [address] [phone] White Blood Count 8.8 10 Normal 4.0-10.0 [...] 36.0-66.0 Lymph % 21.0 % Low 24.0-44.0 [place] % 7.6 % Normal 2.0-8.0 Eos % 1.3 % Normal 0.0-3.0 Baso % 0.6 % Normal 0.0-1.0 Immature Granulocyte % 0.3 % Normal 0-3.0 Nucleated Red Blood Cell % 0.0 % Normal 0-0 Neutrophils # 6.1 10 Normal 1.5-8.5 Lymph # 1.8 10 Normal 1.5-5.0 [place] # 0.7 10 Normal 0.0-0.8 Eos # 0.1 10 Normal 0.0-0.5 Baso # 0.1 10 Normal 0.0-0.2 Basic Metabolic Panel 11/10/2020 [facility] Tin Pot Operator: [place] [address] [phone] Glucose 79 mg/dL 74 - 99 3 [...] mL/min >60 4 Complete Blood Count 11/10/2020 [facility] Tin Pot Operator: [place] [address] [phone] WBC 9.2 x10*3/UL 4.1 - 10.9 RBC [...] 2.0 - 7.8 Laboratory test finding 11/01/[address] [address] [phone] Urine Culture FULL REPORT IN L <SEE NOTE> Normal 5 Ua Routine 11/01/2020 [facility] nter [address] [place] [address] [phone] Appearance, Urine HAZY Normal Clear Color, Urine STRAW Normal Yellow PH,Urine 6.0 units Normal 5.0-9.0 Specific [place] Urine Auto 1.003 Normal 1.002-1.035 Protein, Urine [...] /LPF Normal 0-1 PT & Aptt 11/01/2020 [facility] nter [address] [place] [address] [phone] Prothrombin Time 12.2 seconds Normal 12.7-14.5 Inr 0.87 Normal 6 Partial Thromboplastin Time 25.9 seconds Normal 25.9-37.0 CBC With Differential 11/01/[address] [address] [phone] White Blood Count 10.2 10 High 4.0-10.0 [...] 36.0-66.0 Lymph % 23.4 % Low 24.0-44.0 [place] % 6.9 % Normal 2.0-8.0 Eos % 0.4 % Normal 0.0-3.0 Baso % 0.7 % Normal 0.0-1.0 Immature Granulocyte % 0.4 % Normal 0-3.0 Nucleated Red Blood Cell % 0.0 % Normal 0-0 Neutrophils # 7.0 10 Normal 1.5-8.5 Lymph # 2.4 10 Normal 1.5-5.0 [place] # 0.7 10 Normal 0.0-0.8 Eos # 0.0 10 Normal 0.0-0.5 Baso # 0.1 10 Normal 0.0-0.2 Istat Chem8+ Panel 11/01/2020 [facility] nter [address] [place] [address] [phone] iSTAT HCT 41.0 % Normal 38.0-51.0 iSTAT Glucose 82 mg/dL Normal 70-105 iSTAT Sodium 137 mEq/L Normal 136-145 iSTAT Potassium 3.4 mEq/L Low 3.5-5.1 iSTAT CA++ 4.7 mg/dL Normal 4.5-5.3 iSTAT Chloride 105 mEq/L Normal 98-109 iSTAT Co2 21.0 MM/L Low 23.0-27.0 iSTAT BUN 5 mg/dL Low 8-26 iSTAT Creatinine 0.6 mg/dL Normal 0.6-1.3 Laboratory test finding 10/04/2020 [facility] [address] [place] [address] [phone] Urine Culture FULL REPORT IN L <SEE NOTE> Normal 7 Periph Smear For Oncol. Review 10/04/2020 [facility] [address] [place] [address] [phone] Slide Review Report Normal 8 Source PERIPHERAL SMEAR Normal 9 Reason For Review WBC/LEUKEMIA/CHRISTOPHER <SEE NOTE> Normal 10 Complete Blood Count 10/04/2020 [facility] Tin Pot Operator: [place] [address] [phone] WBC 13.3 x10*3/UL High 4.1 - 10.9 [...] 2.0 - 7.8 Basic Metabolic Panel 10/04/2020 [facility] Tin Pot Operator: [place] [address] [phone] Glucose 84 mg/dL 74 - 99 12 [...] mL/min >60 13 Ua Dipstick Only 10/04/2020 [facility] Tin Pot Operator: [place] [address] [phone] Urine Color YELLOW Yellow Urine Appearance SL. HAZY Abnormal Clear Urine PH 6.5 units 5.0 - 9.0 Urine Specific [place] 1.005 1.005 - 1.030 Urine Leukocytes LARGE Abnormal Negative Urine Blood TRACE Abnormal Negative Urine Protein NEGATIVE Negative -Trace Urine Glucose NEGATIVE mg/dL Negative Urine Nitrite NEGATIVE Negative Urine Ketone NEGATIVE mg/dL Negative Urine Bilirubin NEGATIVE Negative Urine Urobilinogen 0.2 mg/dL 0.2 - 1.0 Laboratory test finding 10/04/2020 [facility] [address] [place] [address] [phone] Pathology Request For Service (SEE NOTE) 14 Complete Blood Count 09/30/2020 [facility] Tin Pot Operator: [place] [address] [phone] WBC 13.2 x10*3/UL High 4.1 - 10.9 [...] 2.0 - 7.8 Comprehensive Chem Profile 09/30/2020 [facility] Tin Pot Operator: [place] [address] [phone] Glucose 103 mg/dL High 74 - 99 [...] 60 mL/min >60 18 Lipid Profile 09/30/2020 [facility] Tin Pot Operator: [place] [address] [phone] Cholesterol 163 mg/dL 131 - 200 Triglycerides 93 mg/dL 30 - 150 HDL Cholesterol 72 mg/dL High 35 - 60 LDL (Calculated) 72 CALC 50 - 159 Laboratory test finding 09/30/2020 [facility] Tin Pot Operator: [place] [address] [phone] Thyroid Stimulating Hormone 0.38 uIU/mL 0.3 6 - 3.74 T4 Free 1.21 ng/dL 0.76 - 1.46 Coronavirus 2019 Nasopharygeal 06/17/[address] [address] [phone] Coronavirus 2019 Nasopharygeal ASSAY INFORMATIO <SEE N OTE> 19 1 Units are mL/min/1.73 m2 Chronic Kidney Disease Staging per NKF: Stage I & II GFR >=60 Normal to Mildly Decreased Stage III GFR 30-59 Moderately Decreased Stage IV GFR 15-29 Severely Decreased Stage V GFR <15 Very Little GFR Left ESRD GFR <15 on COMMERCIAL DEVELOPMENT MANAGER 2 Testing was performed on a h [...] LITTLE GFR LEFT ESRD GFR <15 ON COMMERCIAL DEVELOPMENT MANAGER 5 FULL REPORT IN LAB NOTES (eC [...] LITTLE GFR LEFT ESRD GFR <15 ON COMMERCIAL DEVELOPMENT MANAGER 14 10/05/2020 - 08 PERPHERAL SMEAR REVIEW [...] LITTLE GFR LEFT ESRD GFR <15 ON COMMERCIAL DEVELOPMENT MANAGER 19 ASSAY INFORMATION: Real Time RT-PCR NOTE: The COVID-19 assay has been cleared by the U.S. Food and Drug Administration under the Emergency Use Authorization (EUA). [employer] and [employer] are designated as high complexity laboratories by the Clinical Laboratory Improvement Amendments of 1988(CLIA) and are qualified to perform this test. Not Detected Procedures Date Code Description Status 11/10/2020 67942 Office/Outpatient Established Mo d MDM 30-39 Min Completed 11/01/2020 34531 Office/Outpatient Established Lo w MDM 20-29 Min Completed 10/04/2020 38100 Office/Outpatient Established Mo d MDM 30-39 Min Completed 08/31/2020 52681 Chronic Care MGMT 20 Mins Clinical Staff Time Per Calendar Month Completed 07/14/2020 17983 Chronic Care MGMT 20 Mins Clinical Staff Time Per Calendar Month Completed 07/14/2020 45599 Chronic Care Management Services Ea Addl 20 Min Completed 06/17/2020 35994 Chronic Care MGMT 20 Mins Clinical Staff Time Per Calendar Month Completed 06/17/2020 75419 Chronic Care Management Services Ea Addl 20 Min Completed 08/24/2011 [id number] Mammogram Completed 07/23/2009 [id number] Bone Mineral Density Test Comple [employer] Description No Information Available Encounters Type Date Location Provider Dx Diagnosis Office Visit 11/10/2020 1:40p [facility] L03.115 Cellulitis of right lower li mb R60.0 Localized edema Office Visit 11/01/2020 10:40a [facility] PA S81.011A Laceration without [...] w/o ang pctrs Office Visit 10/04/2020 11:[facility]a [facility] E78.00 Pure hypercholesterolemia, unspecified E03.9 Hypothyroidism, unspecified G47.33 Obstructive sleep apnea (ricki lt) (pediatric) K21.9 Gastro-esophageal reflux dis ease without esophagitis F34.1 Dysthymic disorder I25.10 Athscl heart disease of [place] coronary artery w/o ang pctrs I42.9 Cardiomyopathy, unspecified G43.001 Migraine w/o aura, not intra ctable, with status migrainosus M54.5 Low back pain M79.7 Fibromyalgia Assessments Date Code Description Provider 11/12/2020 L03.115 Cellulitis of right lower limb R ginny Albrecht JR, RADHA 11/12/2020 R22.41 Localized swelling, mass and lum p, right lower limb Jake Albrecht JR, RADHA 11/11/2020 L03.115 Cellulitis of right lower limb R ginny Albrecht JR, RADHA 11/11/2020 R22.41 Localized swelling, mass and lum p, right lower limb Jake Albrecht JR, RADHA 11/10/2020 L03.115 Cellulitis of right lower limb R ginny Albrecht JR, RADHA 11/10/2020 R60.0 Localized edema RADHA Chavez JR [...] 11/01/2020 I25.10 Atherosclerotic hear t disease of [place] coronary artery without angina pectoris RADHA Marin JR 10/04/2020 E78.00 Pure hypercholesterolemia, unspe cified Bill Tapia M.D. 10/04/2020 E03.9 Hypothyroidism, unspecified Jonathan Tapia M.D. 10/04/2020 G47.33 Obstructive sleep apnea (adult) (pediatric) Bill Tapia M.D. 10/04/2020 K21.9 Gastro-esophageal reflux disease without esophagitis Bill Tapia M.D. 10/04/2020 F34.1 Dysthymic disorder Bill fisher M.D. 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 at [facility]. 10/04/2020 - Bill Tapia M.D.* E78.00 Pure hypercholesterolemia, unspecified * E03.9 Hypothyroidism, unspecified * G47.33 Obstructive sleep apnea (adult) (pediatric) * K21.9 Gastro-esophageal reflux disease without esophagitis * F34.1 Dysthymic disorder * I25.10 Athscl heart disease of [place] coronary artery w/o ang pctrs * I42.9 [...] continue and monitor.6. Athscl heart disease of [place] coronary artery w/o ang pctrs: Doing well [...] and is following up Reuben Mederos at [facility] for Botox injections who left the practice. She was under the care of [facility] prior for migraine. She will continue to work with at [facility] to optimize her headaches.9. Low back [...]
--- OUTSIDE RECORDS SUMMARY | 2020-12-09 09:36 | CCD | Continuity of Care Document ---
Author Author Lianne ALBRECHT PA Organization Unknown Address [address] [facility] [address] [place] [address] Phone [phone] Care Team Providers Care Inside Finisher Name Role Phone Cortney Diaz MD AUTM [phone] Ragini Galvin AUTM [phone] Forrest Cuellar MD AUTM Pancho Mayorga MD AUTM [phone] Bill Tapia MD AUTM [phone] [facility] Lab AUTM [phone] [facility] AUTM [phone] Problems Active Problems Provider Date Disorder of [...] day 30tabs Bill Tapia M.D. 07/02/2020 Nystatin 246493Gmpj/GM Cream apply to affected area twice a day 90gm Bill Tapia M.D. 0 11/04/2019 Nystatin 314575Yszb/GM Ointment topical three times a day as [...] day Bill Tapia M.D. 06/29/2014 Calcium 600+D 962-460ug-Dvml Table ts 1 po bid Bill Tapia [...] by mouth twice a day Ragini Galvin [place] 10-325mg Tablets 1 by mouth every 8 [...] Vaccine Lot # U-Flu Given 11/24/2019 Influenza,Unspecified [id number] Given 11/24/2019 Prevnar 13 U-Flu Given 11/27/2018 Influenza,Unspecified U-DtapHi Given 04/02/2017 DTap,Hib,IPV,Unspecified [id number] Given 11/29/2015 Fluvirin Virus Vaccine [id number] 01 Q2037 Given 12/30/2014 Fluvirin Virus Vaccine [id number] 01 Vital Signs Date Vital Result Comment [...] Date Facility Test Result H/L Range Note Complete Blood Count 11/10/2020 [facility] Manager Sustainability: Dr Tom Kim [place], [place] [id number] [phone] WBC 9.2 x10*3/UL 4.1 - 10.9 RBC [...] Neut # 7.2 x10*3/UL 2.0 - 7.8 Basic Metabolic Panel 11/10/2020 [facility] Manager Sustainability: [place] [address] [phone] Glucose 79 mg/dL 74 - 99 1 BUN 7 mg/dL 7 - 18 Creatinine 0.8 mg/dL 0.6 - 1.3 Sodium 137 mEq/L 136 - 145 Potassium 3.6 mEq/L 3.5 - 5.1 Chloride 103 mEq/L 98 - 107 Carbon Dioxide 30 mEq/L 21 - 32 Calcium 8.5 mg/dL 8.5 - 10.1 GFR >= 60 mL/min >60 GFR >= 60 mL/min >60 2 Istat Chem8+ Panel 11/01/2020 [facility] nter [address] [place], [place] [id number] [phone] iSTAT HCT 41.0 % Normal 38.0-51.0 iSTAT Glucose 82 mg/dL Normal 70-105 iSTAT Sodium 137 mEq/L Normal 136-145 iSTAT Potassium 3.4 mEq/L Low 3.5-5.1 iSTAT CA++ 4.7 mg/dL Normal 4.5-5.3 iSTAT Chloride 105 mEq/L Normal 98-109 iSTAT Co2 21.0 MM/L Low 23.0-27.0 iSTAT BUN 5 mg/dL Low 8-26 iSTAT Creatinine 0.6 mg/dL Normal 0.6-1.3 CBC With Differential 11/01/2020 [facility] [address] [place] [address] [phone] White Blood Count 10.2 10 High 4.0-10.0 [...] 36.0-66.0 Lymph % 23.4 % Low 24.0-44.0 [place] % 6.9 % Normal 2.0-8.0 Eos % 0.4 % Normal 0.0-3.0 Baso % 0.7 % Normal 0.0-1.0 Immature Granulocyte % 0.4 % Normal 0-3.0 Nucleated Red Blood Cell % 0.0 % Normal 0-0 Neutrophils # 7.0 10 Normal 1.5-8.5 Lymph # 2.4 10 Normal 1.5-5.0 [place] # 0.7 10 Normal 0.0-0.8 Eos # 0.0 10 Normal 0.0-0.5 Baso # 0.1 10 Normal 0.0-0.2 PT & Aptt 11/01/2020 [facility] nter [address] [place] [address] [phone] Prothrombin Time 12.2 seconds Normal 12.7-14.5 Inr 0.87 Normal 3 Partial Thromboplastin Time 25.9 seconds Normal 25.9-37.0 Ua Routine 11/01/2020 [facility] nter [address] [place] [address] [phone] Appearance, Urine HAZY Normal Clear Color, Urine STRAW Normal Yellow PH,Urine 6.0 units Normal 5.0-9.0 Specific [place] Urine Auto 1.003 Normal 1.002-1.035 Protein, Urine [...] Cast, Urine Auto 0 /LPF Normal 0-1 Laboratory test finding 11/01/[address] [address] [phone] Urine Culture FULL REPORT IN L <SEE NOTE> Normal 4 Periph Smear For Oncol. Review 10/04/[address] [address] [phone] Slide Review Report Normal 5 Source PERIPHERAL SMEAR Normal 6 Reason For Review WBC/LEUKEMIA/CHRISTOPHER <SEE NOTE> Normal 7 Laboratory test finding 10/04/[address] [address] [phone] Pathology Request For Service (SEE NOTE) 8 Ua Dipstick Only 10/04/2020 [facility] Manager Sustainability: [place] [address] [phone] Urine Color YELLOW Yellow Urine Appearance SL. HAZY Abnormal Clear Urine PH 6.5 units 5.0 - 9.0 Urine Specific [place] 1.005 1.005 - 1.030 Urine Leukocytes LARGE Abnormal Negative Urine Blood TRACE Abnormal Negative Urine Protein NEGATIVE Negative -Trace Urine Glucose NEGATIVE mg/dL Negative Urine Nitrite NEGATIVE Negative Urine Ketone NEGATIVE mg/dL Negative Urine Bilirubin NEGATIVE Negative Urine Urobilinogen 0.2 mg/dL 0.2 - 1.0 Basic Metabolic Panel 10/04/2020 [facility] Manager Sustainability: [place] [address] [phone] Glucose 84 mg/dL 74 - 99 9 BUN 9 mg/dL 7 - 18 Creatinine 0.8 mg/dL 0.6 - 1.3 Sodium 133 mEq/L Low 136 - 145 Potassium 3.7 mEq/L 3.5 - 5.1 Chloride 97 mEq/L Low 98 - 107 Carbon Dioxide 30 mEq/L 21 - 32 Calcium 9.0 mg/dL 8.5 - 10.1 GFR >= 60 mL/min >60 GFR >= 60 mL/min >60 10 Complete Blood Count 10/04/2020 [facility] Manager Sustainability: [place] [address] [phone] WBC 13.3 x10*3/UL High 4.1 - 10.9 [...] # 10.4 x10*3/UL High 2.0 - 7.8 Laboratory test finding 10/04/2020 [facility] [address] [place] [address] [phone] Urine Culture FULL REPORT IN L <SEE NOTE> Normal 12 Complete Blood Count 09/30/2020 [facility] Manager Sustainability: [place] [address] [phone] WBC 13.2 x10*3/UL High 4.1 - 10.9 13 RBC 4.37 x10*6/UL 4.20 - 6.30 Hemoglobin [...] 2.0 - 7.8 Comprehensive Chem Profile 09/30/2020 [facility] Manager Sustainability: [place] [address] [phone] Glucose 103 mg/dL High 74 - 99 14 BUN 8 mg/dL 7 - 18 Creatinine 0.9 mg/dL 0.6 - 1.3 Sodium 131 mEq/L Low 136 - 145 15 Potassium 4.3 mEq/L 3.5 - 5.1 Chloride [...] mL/min >60 GFR >= 60 mL/min >60 16 Lipid Profile 09/30/2020 [facility] Manager Sustainability: Dr Tom Kim [place], [place] [id number] [phone] Cholesterol 163 mg/dL 131 - 200 Triglycerides 93 mg/dL 30 - 150 HDL Cholesterol 72 mg/dL High 35 - 60 LDL (Calculated) 72 CALC 50 - 159 Laboratory test finding 09/30/2020 [facility] Manager Sustainability: Dr Tom Kim [place], [place] [address] [phone] Thyroid Stimulating Hormone 0.38 uIU/mL 0.3 6 - 3.74 T4 Free 1.21 ng/dL 0.76 - 1.46 Coronavirus 2019 Nasopharygeal 06/17/2020 [place] [address] [place] [address] [phone] Coronavirus 2019 Nasopharygeal ASSAY INFORMATIO <SEE N OTE> 17 1 100-125 mg/dL PRE-DIABET ES/FASTING >126 mg/dL DIABETES/FASTING 2 CHRONIC KIDNEY DISEASE STAGI NG PER NKF STAGE I & II GFR >= 60 NORMAL TO MILDLY DECREASED STAGE III GFR 30-59 MODERATELY DECREASED STAGE IV GFR 15-29 SEVERELY DECREASED STAGE V GFR <15 VERY LITTLE GFR LEFT ESRD GFR <15 ON MACHINE SET UP OPERATOR PAPER GOODS 3 THERAPUTIC HUMAN INR VALUES INDICATIONS NORMAL RANGES PROPHYLAXIS/TREATMENT OF: VENOUS THROMBOSIS 2.0-3.0 PULMONARY EMBOLISM 2.0-3.0 PREVENTION OF SYSTEMIC EMBOLISM FROM: TISSUE HEART VALVES 2.0-3.0 ACUTE MYOCARDIAL INFARCTION 2.0-3.0 VALVULAR HEART DISEASE 2.0-3.0 ATRIAL FIBRILLATION 2.0-3.0 MECHANICAL VALVES(HIGH RISK) 2.5-3.5 RECURRENT MYOCARDIAL INFARCTION 2.5-3.5 4 FULL REPORT IN LAB NOTES (eC W and Medent). NO GROWTH 5 Slide and/or specimen referr ed to Pathologist for review. Results of the review are located in the EMR Pathology module under Peripheral Smear when completed. 6 PERIPHERAL SMEAR 7 WBC/LEUKEMIA/BLAST 8 10/05/2020 - 0842 PERPHERAL SMEAR REVIEW Peripheral smear: Leukocytosis associated with an increased in neutrophils. Erythrocytes appear normal in number and are overall normochromic. Nucleated red cells are not seen. Platelet count within normal limits. No blast forms are identified. 10/05/2020 - 841 Signed LUI DONNELLY MD 10/05/2020 0843 9 100-125 mg/dL PRE-DIABET ES/FASTING >126 mg/dL DIABETES/FASTING 10 CHRONIC KIDNEY DISEASE STAGI NG PER NKF STAGE I & II GFR >= 60 NORMAL TO MILDLY DECREASED STAGE III GFR 30-59 MODERATELY DECREASED STAGE IV GFR 15-29 SEVERELY DECREASED STAGE V GFR <15 VERY LITTLE GFR LEFT ESRD GFR <15 ON MACHINE SET UP OPERATOR PAPER GOODS 11 NOTE: RESULT VERIFIED. 12 FULL REPORT IN LAB NOTES (eC W and [facility]). NO GROWTH 13 NOTE: RESULT VERIFIED. 14 100-125 mg/dL PRE-DIABET ES/FASTING >126 mg/dL DIABETES/FASTING 15 NOTE: RESULT VERIFIED. 16 CHRONIC KIDNEY DISEASE STAGI NG PER NKF STAGE I & II GFR >= 60 NORMAL TO MILDLY DECREASED STAGE III GFR 30-59 MODERATELY DECREASED STAGE IV GFR 15-29 SEVERELY DECREASED STAGE V GFR <15 VERY LITTLE GFR LEFT ESRD GFR <15 ON MACHINE SET UP OPERATOR PAPER GOODS 17 ASSAY INFORMATION: Real Time RT-PCR NOTE: The COVID-19 assay has been cleared by the U.S. Food and Drug Administration under the Emergency Use Authorization (EUA). [facility] and [facility] are designated as high complexity laboratories by the Clinical Laboratory Improvement Amendments of 1988(CLIA) and are qualified to perform this test. Not Detected Procedures Date Code Description Status 11/10/2020 81756 Office/Outpatient Established Mo d MDM 30-39 Min Completed 11/01/2020 26328 Office/Outpatient Established Lo w MDM 20-29 Min Completed 10/04/2020 31714 Office/Outpatient Established Mo d MDM 30-39 Min Completed 08/31/2020 56271 Chronic Care MGMT 20 Mins Clinical Staff Time Per Calendar Month Completed 07/14/2020 25010 Chronic Care MGMT 20 Mins Clinical Staff Time Per Calendar Month Completed 07/14/2020 29954 Chronic Care Management Services Ea Addl 20 Min Completed 06/17/2020 18082 Chronic Care MGMT 20 Mins Clinical Staff Time Per Calendar Month Completed 06/17/2020 80969 Chronic Care Management Services Ea Addl 20 Min Completed 08/24/2011 44066596 Mammogram Completed 07/23/2009 [id number] Bone Mineral Density Test Comple [place] Description No Information Available Encounters Type Date Location Provider Dx Diagnosis Office Visit 11/10/2020 1:40p [facility] PRADHA Yoder JR L03.115 Cellulitis of right lower li mb R60.0 Localized edema Office Visit 11/01/2020 10[facility] S81.011A Laceration without foreign [...] w/o ang pctrs Office Visit 10/04/2020 11:30a [facility] P.Daxa Tapia M.D. E78.00 Pure hypercholesterolemia, unspecified E03.9 [...] lower limb R RADHA Burk JR 11/11/2020 R22.41 Localized swelling, mass and lum p, right lower limb RADHA Marin JR 11/10/2020 L03.115 Cellulitis of right lower limb R ginny Deven Albrecht JR, RADHA 11/10/2020 R60.0 Localized edema [...] 11/01/2020 I25.10 Atherosclerotic hear t disease of [place] coronary artery without angina pectoris RADHA Marin JR 10/04/2020 E78.00 Pure hypercholesterolemia, unspe cified Bill Tapia M.D. 10/04/2020 E03.9 Hypothyroidism, unspecified Jonathan Tapia M.D. 10/04/2020 G47.33 Obstructive sleep apnea (adult) (pediatric) Bill Tapia M.D. 10/04/2020 K21.9 Gastro-esophageal reflux disease without esophagitis Bill Tapia M.D. 10/04/2020 F34.1 Dysthymic disorder Bill fisher M.D. 10/04/2020 I25.10 Atherosclerotic hear t disease of [place] coronary artery without angina pectoris Bill Tapia [...] 10:30 am - Bill Tapia M.D. at [facility] 10/04/2020 - Bill Tapia M.D.* E78.00 Pure hypercholesterolemia, unspecified * E03.9 Hypothyroidism, unspecified * G47.33 Obstructive sleep apnea (adult) (pediatric) * K21.9 Gastro-esophageal reflux disease without esophagitis * F34.1 Dysthymic disorder * I25.10 Athscl heart disease of [place] coronary artery w/o ang pctrs * I42.9 [...] continue and monitor.6. Athscl heart disease of [place] coronary artery w/o ang pctrs: Doing well [...] and is following up Reuben Mederos at [facility] for Botox injections who left the practice. She was under the care of [facility] prior for migraine. She will continue to work with at [facility] to optimize her headaches.9. Low back [...]
--- OUTSIDE RECORDS SUMMARY | 2020-12-09 09:36 | CCD | Continuity of Care Document ---
Author Author Lianne SPANGLER PA Organization Unknown Address [address] [facility] [address] [place] [address] Phone [phone] Care Team Providers Care Cage Clerk Name Role Phone Cortney Diaz MD AUTM [phone] Ragini Galvin AUTM [phone] Forrest Cuellar MD AUTM Pancho Mayorga MD AUTM [phone] Bill Tapia MD AUTM [phone] [facility] AUTM [phone] [facility] AUTM [phone] Problems Active Problems Provider Date Disorder of [...] day 30tabs Bill Tapia M.D. 07/02/2020 Nystatin 772085Rykc/GM Cream apply to affected area twice a day 90gm Bill Tapia M.D. 0 11/04/2019 Nystatin 445542Omco/GM Ointment topical three times a day as [...] Tablet By Mouth Every Day 90tabs Tom Kmi MD 02/28/2016 Miralax 3350NF Powder use 17grams [...] day Bill Tapia M.D. 06/29/2014 Calcium 600+D 229-864im-Wcac Table ts 1 po bid Bill Tapia [...] by mouth twice a day Ragini Galvin [place] 10-325mg Tablets 1 by mouth every 8 [...] Vaccine Lot # U-Flu Given 11/24/2019 Influenza,Unspecified 93832 Given 11/24/2019 Prevnar 13 U-Flu Given 11/27/2018 Influenza,Unspecified U-DtapHi Given 04/02/2017 DTap,Hib,IPV,Unspecified Q2037 Given 11/29/2015 Fluvirin Virus Vaccine 10541 01 Q2037 Given 12/30/2014 Fluvirin Virus Vaccine 79054 01 Vital Signs Date Vital Result Comment 11/11/2020 1:37pm BP Systolic 124 mmHg BP Diastolic 78 mmHg Heart Rate 83 /min Height 61.75 inches 5'1.75" Weight 200.00 lb O2 % BldC Oximetry 96 % RM Air BMI (Body Mass Index) 36.9 kg/m2 11/10/2020 1:42pm BP Systolic 132 mmHg BP Diastolic 80 mmHg Heart Rate 96 /min Height 61.75 inches 5'1.75" Weight 200.00 lb BMI (Body Mass Index) 36.9 kg/m2 Results Test Acquired Date Facility Test Result H/L Range Note Complete Blood Count 11/10/2020 [facility] Sock Lining Examiner: [place] [address] [phone] WBC 9.2 x10*3/UL 4.1 - 10.9 RBC [...] 2.0 - 7.8 Basic Metabolic Panel 11/10/2020 [facility] Sock Lining Examiner: Dr Tom Kim [place], [place] [address] [phone] Glucose 79 mg/dL 74 - 99 1 [...] mL/min >60 2 Istat Chem8+ Panel 11/01/2020 [facility] nter [address] [place] [address] [phone] iSTAT HCT 41.0 % Normal 38.0-51.0 iSTAT Glucose 82 mg/dL Normal 70-105 iSTAT Sodium 137 mEq/L Normal 136-145 iSTAT Potassium 3.4 mEq/L Low 3.5-5.1 iSTAT CA++ 4.7 mg/dL Normal 4.5-5.3 iSTAT Chloride 105 mEq/L Normal 98-109 iSTAT Co2 21.0 MM/L Low 23.0-27.0 iSTAT BUN 5 mg/dL Low 8-26 iSTAT Creatinine 0.6 mg/dL Normal 0.6-1.3 CBC With Differential 11/01/2020 [facility] [address] [place], [place] [address] [phone] White Blood Count 10.2 10 High 4.0-10.0 [...] 36.0-66.0 Lymph % 23.4 % Low 24.0-44.0 [place] % 6.9 % Normal 2.0-8.0 Eos % 0.4 % Normal 0.0-3.0 Baso % 0.7 % Normal 0.0-1.0 Immature Granulocyte % 0.4 % Normal 0-3.0 Nucleated Red Blood Cell % 0.0 % Normal 0-0 Neutrophils # 7.0 10 Normal 1.5-8.5 Lymph # 2.4 10 Normal 1.5-5.0 [place] # 0.7 10 Normal 0.0-0.8 Eos # 0.0 10 Normal 0.0-0.5 Baso # 0.1 10 Normal 0.0-0.2 PT & Aptt 11/01/2020 [facility] nter [address] [place] [address] [phone] Prothrombin Time 12.2 seconds Normal 12.7-14.5 Inr 0.87 Normal 3 Partial Thromboplastin Time 25.9 seconds Normal 25.9-37.0 Ua Routine 11/01/2020 [facility] nter [address] [place] [address] [phone] Appearance, Urine HAZY Normal Clear Color, Urine STRAW Normal Yellow PH,Urine 6.0 units Normal 5.0-9.0 Specific [place] Urine Auto 1.003 Normal 1.002-1.035 Protein, Urine [...] /LPF Normal 0-1 Laboratory test finding 11/01/[address] [address] [phone] Urine Culture FULL REPORT IN L <SEE NOTE> Normal 4 Periph Smear For Oncol. Review 10/04/[address] [address] [phone] Slide Review Report Normal 5 Source PERIPHERAL SMEAR Normal 6 Reason For Review WBC/LEUKEMIA/CHRISTOPHER <SEE NOTE> Normal 7 Laboratory test finding 10/04/[address] [address] [phone] Pathology Request For Service (SEE NOTE) 8 Ua Dipstick Only 10/04/2020 [facility] Sock Lining Examiner: [place] [address] [phone] Urine Color YELLOW Yellow Urine Appearance SL. HAZY Abnormal Clear Urine PH 6.5 units 5.0 - 9.0 Urine Specific [place] 1.005 1.005 - 1.030 Urine Leukocytes LARGE Abnormal Negative Urine Blood TRACE Abnormal Negative Urine Protein NEGATIVE Negative -Trace Urine Glucose NEGATIVE mg/dL Negative Urine Nitrite NEGATIVE Negative Urine Ketone NEGATIVE mg/dL Negative Urine Bilirubin NEGATIVE Negative Urine Urobilinogen 0.2 mg/dL 0.2 - 1.0 Basic Metabolic Panel 10/04/2020 [facility] Sock Lining Examiner: [place] [address] [phone] Glucose 84 mg/dL 74 - 99 9 [...] mL/min >60 10 Complete Blood Count 10/04/2020 [facility] Sock Lining Examiner: [place] [address] [phone] WBC 13.3 x10*3/UL High 4.1 - 10.9 [...] 2.0 - 7.8 Laboratory test finding 10/04/2020 [facility] [address] [place] [address] [phone] Urine Culture FULL REPORT IN L <SEE NOTE> Normal 12 Complete Blood Count 09/30/2020 [facility]fsa norris Sock Lining Examiner: [place] [address] [phone] WBC 13.2 x10*3/UL High 4.1 - 10.9 [...] 2.0 - 7.8 Comprehensive Chem Profile 09/30/2020 [facility] Sock Lining Examiner: [place] [address] [phone] Glucose 103 mg/dL High 74 - 99 [...] 60 mL/min >60 16 Lipid Profile 09/30/2020 [facility] Sock Lining Examiner: [place] [address] [phone] Cholesterol 163 mg/dL 131 - 200 Triglycerides 93 mg/dL 30 - 150 HDL Cholesterol 72 mg/dL High 35 - 60 LDL (Calculated) 72 CALC 50 - 159 Laboratory test finding 09/30/2020 [facility] Sock Lining Examiner: [place] [address] [phone] Thyroid Stimulating Hormone 0.38 uIU/mL 0.3 6 - 3.74 T4 Free 1.21 ng/dL 0.76 - 1.46 Coronavirus 2019 Nasopharygeal 06/17/2020 [place] [address] [place] 3706134 [phone] Coronavirus 2019 Nasopharygeal ASSAY INFORMATIO <SEE N OTE> 17 1 100-125 mg/dL PRE-DIABET ES/FASTING >126 mg/dL DIABETES/FASTING 2 CHRONIC KIDNEY DISEASE STAGI NG PER NKF STAGE I & II GFR >= 60 NORMAL TO MILDLY DECREASED STAGE III GFR 30-59 MODERATELY DECREASED STAGE IV GFR 15-29 SEVERELY DECREASED STAGE V GFR <15 VERY LITTLE GFR LEFT ESRD GFR <15 ON DISC RULER OPERATOR 3 THERAPUTIC HUMAN INR VALUES INDICATIONS NORMAL [...] LITTLE GFR LEFT ESRD GFR <15 ON DISC RULER OPERATOR 11 NOTE: RESULT VERIFIED. 12 FULL REPORT [...] LITTLE GFR LEFT ESRD GFR <15 ON DISC RULER OPERATOR 17 ASSAY INFORMATION: Real Time RT-PCR NOTE: The COVID-19 assay has been cleared by the U.S. Food and Drug Administration under the Emergency Use Authorization (EUA). [facility] and [facility] are designated as high complexity laboratories by the Clinical Laboratory Improvement Amendments of 1988(CLIA) and are qualified to perform this test. Not Detected Procedures Date Code Description Status 11/01/2020 78354 Office/Outpatient Established Lo w MDM 20-29 Min Completed 10/04/2020 00890 Office/Outpatient Established Mo d MDM 30-39 Min Completed 08/31/2020 68605 Chronic Care MGMT 20 Mins Clinical Staff Time Per Calendar Month Completed 07/14/2020 06914 Chronic Care MGMT 20 Mins Clinical Staff Time Per Calendar Month Completed 07/14/2020 65705 Chronic Care Management Services Ea Addl 20 Min Completed 06/17/2020 87724 Chronic Care MGMT 20 Mins Clinical Staff Time Per Calendar Month Completed 06/17/2020 25996 Chronic Care Management Services Ea Addl 20 Min Completed 08/24/2011 [id number] Mammogram Completed 07/23/2009 031233424 Bone Mineral Density Test Comple [place] Description No Information Available Encounters Type Date Location Provider Dx Diagnosis Office Visit 11/01/2020 10:40a [facility]RADHA Arroyo JR S81.011A Laceration without foreign b earlene, right [...] w/o ang pctrs Office Visit 10/04/2020 11:30a [facility]CDiane Tapia M.D. E78.00 Pure hypercholesterolemia, [...] M79.7 Fibromyalgia Assessments Date Code Description Provider 11/11/2020 L03.115 Cellulitis of right lower limb R RADHA Burk JR 11/11/2020 R22.41 Localized swelling, mass and lum p, right lower limb RADHA Marin JR 11/10/2020 L03.115 Cellulitis of right lower limb R RADHA Burk JR 11/10/2020 R22.41 Localized swelling, mass and lum p, right lower limb RADHA Marin JR 11/01/2020 S81.011A Laceration without f oreign [...] 11/01/2020 I25.10 Atherosclerotic hear t disease of [place] coronary artery without angina pectoris RADHA Marin JR 10/04/2020 E78.00 Pure hypercholesterolemia, unspe cified Bill Tapia M.D. 10/04/2020 E03.9 Hypothyroidism, unspecified Jonathan Tapia M.D. 10/04/2020 G47.33 Obstructive sleep apnea (adult) (pediatric) Blil Tapia M.D. 10/04/2020 K21.9 Gastro-esophageal reflux disease without esophagitis Bill Tapia M.D. 10/04/2020 F34.1 Dysthymic disorder Bill fisher M.D. 10/04/2020 I25.10 Atherosclerotic hear t disease of [place] coronary artery without angina pectoris Bill [...] 10:30 am - Bill Tapia M.D. at [facility] 10/04/2020 - Bill Tapia M.D.* E78.00 Pure hypercholesterolemia, unspecified * E03.9 Hypothyroidism, unspecified * G47.33 Obstructive sleep apnea (adult) (pediatric) * K21.9 Gastro-esophageal reflux disease without esophagitis * F34.1 Dysthymic disorder * I25.10 Athscl heart disease of [place] coronary artery w/o ang pctrs * [...] continue and monitor.6. Athscl heart disease of [place] coronary artery w/o ang pctrs: Doing [...] and is following up Reuben Mederos at [facility] for Botox injections who left the practice. She was under the care of [facility] prior for migraine. She will continue to work with at [facility] to optimize her headaches.9. Low back [...]
--- OUTSIDE RECORDS SUMMARY | 2020-12-09 09:36 | CCD | Continuity of Care Document ---
Author Author Lianne SPANGLER PA Organization Unknown Address [address] [facility] [address] [place] [address] Phone [phone] Care Team Providers Care Apparatus Repair Mechanic Name Role Phone Cortney Diaz MD AUTM [phone] Ragini Galvin AUTM [phone] Forrest Cuellar MD AUTM [phone] Pancho Mayorga MD AUTM [phone] Bill Tapia MD AUTM [phone] [facility] AUTM [phone] [facility] AUTM Problems Active Problems [...] day 30tabs Bill Tapia M.D. 07/02/2020 Nystatin 919167Ketk/GM Cream apply to affected area twice a day 90gm Bill Tapia M.D. 0 11/04/2019 Nystatin 508943Dwuu/GM Ointment topical three times a day as [...] day Bill Tapia M.D. 06/29/2014 Calcium 600+D 249-285wy-Fyzu Table ts 1 po bid Bill Tapia M.D. 06/29/2014 Carafate 1gm Tablets one tablet daily before meals and at bedtime 120tabs Bill Tapia M.D. 06/29/[address] 1 by mouth twice a day 180tabs Bill Tapia M.D. 06/29/2014 Multivitamins Capsules 1 by mouth every day Bill aTpia M.D. 06/29/2014 Montelukast Sodium 10mg Tablets 1 by mouth every day 90tabs Bill Tpaia M.D. 06/29/2014 Cetirizine HCL 10mg Tablets 1 [...] by mouth twice a day Ragini Galvin [place] 10-325mg Tablets 1 by mouth every [...] Vaccine Lot # U-Flu Given 11/24/2019 Influenza,Unspecified 88537 Given 11/24/2019 Prevnar 13 U-Flu Given 11/27/2018 Influenza,Unspecified U-DtapHi Given 04/02/2017 DTap,Hib,IPV,Unspecified Q2037 Given 11/29/2015 Fluvirin Virus Vaccine 49156 01 Q2037 Given 12/30/2014 Fluvirin Virus Vaccine 52087 01 Vital Signs Date Vital Result Comment [...] H/L Range Note Complete Blood Count 11/10/2020 [facility] Communicable Disease Specialist: [place] [address] [phone] WBC 9.2 x10*3/UL 4.1 - 10.9 RBC [...] 2.0 - 7.8 Basic Metabolic Panel 11/10/2020 [facility] Communicable Disease Specialist: Dr Tom Kim [place], [place] [id number] [phone] Glucose 79 mg/dL 74 - 99 1 [...] mL/min >60 2 Istat Chem8+ Panel 11/01/2020 [facility] nter [address] [place] [address] [phone] iSTAT HCT 41.0 % Normal 38.0-51.0 iSTAT Glucose 82 mg/dL Normal 70-105 iSTAT Sodium 137 mEq/L Normal 136-145 iSTAT Potassium 3.4 mEq/L Low 3.5-5.1 iSTAT CA++ 4.7 mg/dL Normal 4.5-5.3 iSTAT Chloride 105 mEq/L Normal 98-109 iSTAT Co2 21.0 MM/L Low 23.0-27.0 iSTAT BUN 5 mg/dL Low 8-26 iSTAT Creatinine 0.6 mg/dL Normal 0.6-1.3 CBC With Differential 11/01/2020 [facility] [address] [place], [place] [id number] [phone] White Blood Count 10.2 10 High 4.0-10.0 [...] 36.0-66.0 Lymph % 23.4 % Low 24.0-44.0 [place] % 6.9 % Normal 2.0-8.0 Eos % 0.4 % Normal 0.0-3.0 Baso % 0.7 % Normal 0.0-1.0 Immature Granulocyte % 0.4 % Normal 0-3.0 Nucleated Red Blood Cell % 0.0 % Normal 0-0 Neutrophils # 7.0 10 Normal 1.5-8.5 Lymph # 2.4 10 Normal 1.5-5.0 [place] # 0.7 10 Normal 0.0-0.8 Eos # 0.0 10 Normal 0.0-0.5 Baso # 0.1 10 Normal 0.0-0.2 PT & Aptt 11/01/2020 [facility] nter [address] [place] [address] [phone] Prothrombin Time 12.2 seconds Normal 12.7-14.5 Inr 0.87 Normal 3 Partial Thromboplastin Time 25.9 seconds Normal 25.9-37.0 Ua Routine 11/01/2020 [facility] nter [address] [place] [address] [phone] Appearance, Urine HAZY Normal Clear Color, Urine STRAW Normal Yellow PH,Urine 6.0 units Normal 5.0-9.0 Specific [place] Urine Auto 1.003 Normal 1.002-1.035 Protein, Urine [...] /LPF Normal 0-1 Laboratory test finding 11/01/[address] [address] [phone] Urine Culture FULL REPORT IN L <SEE NOTE> Normal 4 Periph Smear For Oncol. Review 10/04/[address] [address] [phone] Slide Review Report Normal 5 Source PERIPHERAL SMEAR Normal 6 Reason For Review WBC/LEUKEMIA/CHRISTOPHER <SEE NOTE> Normal 7 Laboratory test finding 10/04/[address] [address] [phone] Pathology Request For Service (SEE NOTE) 8 Ua Dipstick Only 10/04/2020 [facility] Communicable Disease Specialist: [place] [address] [phone] Urine Color YELLOW Yellow Urine Appearance SL. HAZY Abnormal Clear Urine PH 6.5 units 5.0 - 9.0 Urine Specific [place] 1.005 1.005 - 1.030 Urine Leukocytes LARGE Abnormal Negative Urine Blood TRACE Abnormal Negative Urine Protein NEGATIVE Negative -Trace Urine Glucose NEGATIVE mg/dL Negative Urine Nitrite NEGATIVE Negative Urine Ketone NEGATIVE mg/dL Negative Urine Bilirubin NEGATIVE Negative Urine Urobilinogen 0.2 mg/dL 0.2 - 1.0 Basic Metabolic Panel 10/04/2020 [facility] Communicable Disease Specialist: [place] [address] [phone] Glucose 84 mg/dL 74 - 99 9 [...] mL/min >60 10 Complete Blood Count 10/04/2020 [facility] Communicable Disease Specialist: [place] [address] [phone] WBC 13.3 x10*3/UL High 4.1 - 10.9 [...] 2.0 - 7.8 Laboratory test finding 10/04/2020 [facility] [address] [place] [address] [phone] Urine Culture FULL REPORT IN L <SEE NOTE> Normal 12 Complete Blood Count 09/30/2020 [facility] hafsa norris Communicable Disease Specialist: [place] [address] [phone] WBC 13.2 x10*3/UL High 4.1 - 10.9 [...] 2.0 - 7.8 Comprehensive Chem Profile 09/30/2020 [facility] reid Communicable Disease Specialist: [place] [address] [phone] Glucose 103 mg/dL High 74 - 99 [...] 60 mL/min >60 16 Lipid Profile 09/30/2020 [facility] Communicable Disease Specialist: [place] [address] [phone] Cholesterol 163 mg/dL 131 - 200 Triglycerides 93 mg/dL 30 - 150 HDL Cholesterol 72 mg/dL High 35 - 60 LDL (Calculated) 72 CALC 50 - 159 Laboratory test finding 09/30/2020 [facility] Communicable Disease Specialist: [place] [address] [phone] Thyroid Stimulating Hormone 0.38 uIU/mL 0.3 6 - 3.74 T4 Free 1.21 ng/dL 0.76 - 1.46 Coronavirus 2019 Nasopharygeal 06/17/2020 [place] [address] [place] [address]22 [phone] Coronavirus 2019 Nasopharygeal ASSAY INFORMATIO <SEE N OTE> 17 1 100-125 mg/dL PRE-DIABET ES/FASTING >126 mg/dL DIABETES/FASTING 2 CHRONIC KIDNEY DISEASE STAGI NG PER NKF STAGE I & II GFR >= 60 NORMAL TO MILDLY DECREASED STAGE III GFR 30-59 MODERATELY DECREASED STAGE IV GFR 15-29 SEVERELY DECREASED STAGE V GFR <15 VERY LITTLE GFR LEFT ESRD GFR <15 ON SQL BI DEVELOPER 3 THERAPUTIC HUMAN INR VALUES INDICATIONS NORMAL [...] LITTLE GFR LEFT ESRD GFR <15 ON SQL BI DEVELOPER 11 NOTE: RESULT VERIFIED. 12 FULL REPORT [...] LITTLE GFR LEFT ESRD GFR <15 ON SQL BI DEVELOPER 17 ASSAY INFORMATION: Real Time RT-PCR NOTE: The COVID-19 assay has been cleared by the U.S. Food and Drug Administration under the Emergency Use Authorization (EUA). [facility] [employer] are designated as high complexity laboratories by the Clinical Laboratory Improvement Amendments of 1988(CLIA) and are qualified to perform this test. Not Detected Procedures Date Code Description Status 11/01/2020 84366 Office/Outpatient Established Lo w MDM 20-29 Min Completed 10/04/2020 35349 Office/Outpatient Established Mo d MDM 30-39 Min Completed 08/31/2020 47776 Chronic Care MGMT 20 Mins Clinical Staff Time Per Calendar Month Completed 07/14/2020 78865 Chronic Care MGMT 20 Mins Clinical Staff Time Per Calendar Month Completed 07/14/2020 40721 [facility] Management [facility] Ea Addl 20 Min Completed 06/17/2020 27876 Chronic Care MGMT 20 Mins Clinical Staff Time Per Calendar Month Completed 06/17/2020 72688 Chronic Care Management Services Ea Addl 20 Min Completed 08/24/2011 [id number] Mammogram Completed 07/23/2009 [id number] Bone Mineral Density Test Comple [employer] [facility] Description No Information Available Encounters Type Date Location Provider Dx Diagnosis Office Visit 11/01/2020 10:40a [facility]RADHA Arroyo JR S81.011A Laceration without [...] w/o ang pctrs Office Visit 10/04/2020 11:30a [facility]CDiane Tapia M.D. E78.00 Pure hypercholesterolemia, [...] 11/01/2020 I25.10 Atherosclerotic hear t disease of [place] coronary artery without angina pectoris RADHA Marin JR 10/04/2020 E78.00 Pure hypercholesterolemia, unspe cified Bill Tapia M.D. 10/04/2020 E03.9 Hypothyroidism, unspecified Jonathan Tapia M.D. 10/04/2020 G47.33 Obstructive sleep apnea (adult) (pediatric) Bill Tapia M.D. 10/04/2020 K21.9 Gastro-esophageal reflux disease without esophagitis Bill Tapia M.D. 10/04/2020 F34.1 Dysthymic disorder Bill fisher M.D. 10/04/2020 I25.10 Atherosclerotic hear t disease of [place] coronary artery without angina pectoris Bill Tapia [...] 10:30 am - Bill Tapia M.D. at [facility] 10/04/2020 - Bill Tapia M.D.* E78.00 Pure hypercholesterolemia, unspecified * E03.9 Hypothyroidism, unspecified * G47.33 Obstructive sleep apnea (adult) (pediatric) * K21.9 Gastro-esophageal reflux disease without esophagitis * F34.1 Dysthymic disorder * I25.10 Athscl heart disease of [place] coronary artery w/o ang pctrs * I42.9 [...] continue and monitor.6. Athscl heart disease of [place] coronary artery w/o ang pctrs: Doing well [...] and is following up Reuben Mederos at [facility] for Botox injections who left the practice. She was under the care of [facility] prior for migraine. She will continue to work with at [facility] to optimize her headaches.9. Low [...]
--- OUTSIDE RECORDS SUMMARY | 2020-12-09 09:36 | CCD | Continuity of Care Document ---
Author Author Lianne SPANGLER PA Organization Unknown Address [address] [facility] [address] [place] [address] Phone [phone] Care Team Providers Care Financial Consultant Name Role Phone Cortney Diaz MD AUTM [phone] Ragini Galvin AUTM [phone] Forrest Cuellar MD AUTM Pancho Mayorga MD AUTM [phone] Bill Tapia MD AUTM [phone] [facility] AUTM [phone] [facility] AUTM [phone] Problems Active Problems Provider Date Disorder of [...] day 30tabs Bill Tapia M.D. 07/02/2020 Nystatin 250147Ykxf/GM Cream apply to affected area twice a day 90gm Bill Tapia M.D. 0 11/04/2019 Nystatin 093821Nkgm/GM Ointment topical three times a day as [...] day Bill Tapia M.D. 06/29/2014 Calcium 600+D 926-150mq-Umht Table ts 1 po bid Bill Tapia [...] Baclofen 10mg Tablets 1 po t id Raigni Galvin Gabapentin 400mg Capsules take one capsule by mouth qam and 600mg qpm (per Ncog) Liliya Galvin sa Nortriptyline HCL 25mg Capsules take 1 capsule by mouth at bedtime Ragini Galvin 0 Topamax 100mg Tablets take one tablet by mouth twice a day Ragini Galvin [place] 10-325mg Tablets 1 by mouth every 8 [...] Vaccine Lot # U-Flu Given 11/24/2019 Influenza,Unspecified 37075 Given 11/24/2019 Prevnar 13 U-Flu Given 11/27/2018 Influenza,Unspecified U-DtapHi Given 04/02/2017 DTap,Hib,IPV,Unspecified Q2037 Given 11/29/2015 Fluvirin Virus Vaccine 21459 01 Q2037 Given 12/30/2014 Fluvirin Virus Vaccine 39950 01 Vital Signs Date Vital Result Comment [...] H/L Range Note Complete Blood Count 11/10/2020 [facility] Nipple Maker: Dr Tom Kim [place], [place] [id number] [phone] WBC 9.2 x10*3/UL 4.1 - 10.9 RBC [...] 2.0 - 7.8 Basic Metabolic Panel 11/10/2020 [facility] Nipple Maker: [place] [address] [phone] Glucose 79 mg/dL 74 - 99 1 [...] mL/min >60 2 Istat Chem8+ Panel 11/01/2020 [facility] nter [address] [place], [place] [id number] [phone] iSTAT HCT 41.0 % Normal 38.0-51.0 iSTAT Glucose 82 mg/dL Normal 70-105 iSTAT Sodium 137 mEq/L Normal 136-145 iSTAT Potassium 3.4 mEq/L Low 3.5-5.1 iSTAT CA++ 4.7 mg/dL Normal 4.5-5.3 iSTAT Chloride 105 mEq/L Normal 98-109 iSTAT Co2 21.0 MM/L Low 23.0-27.0 iSTAT BUN 5 mg/dL Low 8-26 iSTAT Creatinine 0.6 mg/dL Normal 0.6-1.3 CBC With Differential 11/01/2020 [facility] [address] [place] [address] [phone] White Blood Count 10.2 10 High 4.0-10.0 [...] 36.0-66.0 Lymph % 23.4 % Low 24.0-44.0 [place] % 6.9 % Normal 2.0-8.0 Eos % 0.4 % Normal 0.0-3.0 Baso % 0.7 % Normal 0.0-1.0 Immature Granulocyte % 0.4 % Normal 0-3.0 Nucleated Red Blood Cell % 0.0 % Normal 0-0 Neutrophils # 7.0 10 Normal 1.5-8.5 Lymph # 2.4 10 Normal 1.5-5.0 [place] # 0.7 10 Normal 0.0-0.8 Eos # 0.0 10 Normal 0.0-0.5 Baso # 0.1 10 Normal 0.0-0.2 PT & Aptt 11/01/2020 [facility] nter [address] [place] [address] [phone] Prothrombin Time 12.2 seconds Normal 12.7-14.5 Inr 0.87 Normal 3 Partial Thromboplastin Time 25.9 seconds Normal 25.9-37.0 Ua Routine 11/01/2020 [facility] nter [address] [place] [address] [phone] Appearance, Urine HAZY Normal Clear Color, Urine STRAW Normal Yellow PH,Urine 6.0 units Normal 5.0-9.0 Specific [place] Urine Auto 1.003 Normal 1.002-1.035 Protein, Urine [...] /LPF Normal 0-1 Laboratory test finding 11/01/[address] [address] [phone] Urine Culture FULL REPORT IN L <SEE NOTE> Normal 4 Periph Smear For Oncol. Review 10/04/[address] [address] [phone] Slide Review Report Normal 5 Source PERIPHERAL SMEAR Normal 6 Reason For Review WBC/LEUKEMIA/CHRISTOPHER <SEE NOTE> Normal 7 Laboratory test finding 10/04/[address] [address] [phone] Pathology Request For Service (SEE NOTE) 8 Ua Dipstick Only 10/04/2020 [facility] Nipple Maker: [place] [address] [phone] Urine Color YELLOW Yellow Urine Appearance SL. HAZY Abnormal Clear Urine PH 6.5 units 5.0 - 9.0 Urine Specific [place] 1.005 1.005 - 1.030 Urine Leukocytes LARGE Abnormal Negative Urine Blood TRACE Abnormal Negative Urine Protein NEGATIVE Negative -Trace Urine Glucose NEGATIVE mg/dL Negative Urine Nitrite NEGATIVE Negative Urine Ketone NEGATIVE mg/dL Negative Urine Bilirubin NEGATIVE Negative Urine Urobilinogen 0.2 mg/dL 0.2 - 1.0 Basic Metabolic Panel 10/04/2020 [facility] Nipple Maker: [place] [address] [phone] Glucose 84 mg/dL 74 - 99 9 [...] mL/min >60 10 Complete Blood Count 10/04/2020 [facility] Nipple Maker: [place] [address] [phone] WBC 13.3 x10*3/UL High 4.1 - 10.9 [...] 2.0 - 7.8 Laboratory test finding 10/04/2020 [facility] [address] [place] [address] [phone] Urine Culture FULL REPORT IN L <SEE NOTE> Normal 12 Complete Blood Count 09/30/2020 [facility] Nipple Maker: [place] [address] [phone] WBC 13.2 x10*3/UL High 4.1 - 10.9 [...] 2.0 - 7.8 Comprehensive Chem Profile 09/30/2020 [facility] Nipple Maker: [place] [address] [phone] Glucose 103 mg/dL High 74 - 99 [...] 60 mL/min >60 16 Lipid Profile 09/30/2020 [facility] Nipple Maker: Dr Tom Kim [place], [place] [address] [phone] Cholesterol 163 mg/dL 131 - 200 Triglycerides 93 mg/dL 30 - 150 HDL Cholesterol 72 mg/dL High 35 - 60 LDL (Calculated) 72 CALC 50 - 159 Laboratory test finding 09/30/2020 [facility] Nipple Maker: Dr Tom Kim [place], [place] [address] [phone] Thyroid Stimulating Hormone 0.38 uIU/mL 0.3 6 - 3.74 T4 Free 1.21 ng/dL 0.76 - 1.46 Coronavirus 2019 Nasopharygeal 06/17/2020 [place] [address] [place] [address] [phone] Coronavirus 2019 Nasopharygeal ASSAY INFORMATIO <SEE N OTE> 17 1 100-125 mg/dL PRE-DIABET ES/FASTING >126 mg/dL DIABETES/FASTING 2 CHRONIC KIDNEY DISEASE STAGI NG PER NKF STAGE I & II GFR >= 60 NORMAL TO MILDLY DECREASED STAGE III GFR 30-59 MODERATELY DECREASED STAGE IV GFR 15-29 SEVERELY DECREASED STAGE V GFR <15 VERY LITTLE GFR LEFT ESRD GFR <15 ON MANAGER ERP 3 THERAPUTIC HUMAN INR VALUES INDICATIONS NORMAL [...] 42 Signed LUI DONNELLY MD 10/05/2020 0843 9 100-125 mg/dL PRE-DIABET ES/FASTING >126 mg/dL DIABETES/FASTING 10 CHRONIC KIDNEY DISEASE STAGI NG PER NKF STAGE I & II GFR >= 60 NORMAL TO MILDLY DECREASED STAGE III GFR 30-59 MODERATELY DECREASED STAGE IV GFR 15-29 SEVERELY DECREASED STAGE V GFR <15 VERY LITTLE GFR LEFT ESRD GFR <15 ON MANAGER ERP 11 NOTE: RESULT VERIFIED. 12 FULL REPORT [...] LITTLE GFR LEFT ESRD GFR <15 ON MANAGER ERP 17 ASSAY INFORMATION: Real Time RT-PCR NOTE: The COVID-19 assay has been cleared by the U.S. Food and Drug Administration under the Emergency Use Authorization (EUA). [employer] and [employer] are designated as high complexity laboratories by the Clinical Laboratory Improvement Amendments of 1988(CLIA) and are qualified to perform this test. Not Detected Procedures Date Code Description Status 11/01/2020 32282 Office/Outpatient Established Lo w MDM 20-29 Min Completed 10/04/2020 49027 Office/Outpatient Established Mo d MDM 30-39 Min Completed 08/31/2020 07020 Chronic Care MGMT 20 Mins Clinical Staff Time Per Calendar Month Completed 07/14/2020 31204 Chronic Care MGMT 20 Mins Clinical Staff Time Per Calendar Month Completed 07/14/2020 81292 Chronic Care Management Services Ea Addl 20 Min Completed 06/17/2020 82960 Chronic Care MGMT 20 Mins Clinical Staff Time Per Calendar Month Completed 06/17/2020 45101 Chronic Care Management Services Ea Addl 20 Min Completed 08/24/2011 [id number] Mammogram Completed 07/23/2009 [id number] Bone Mineral Density Test Comple [facility] Description No Information Available Encounters Type Date Location Provider Dx Diagnosis Office Visit 11/01/2020 10:40a [facility]CRADHA Zayas JR S81.011A Laceration without foreign b earlene, [...] w/o ang pctrs Office Visit 10/04/2020 11:30a [facility]CDiane Tapia M.D. E78.00 Pure hypercholesterolemia, [...] (on)(from) sidewalk curb, i nitial encounter RADHA aMrin JR 11/01/2020 Y92.[address] the [address] of occu rrence of the external cause RADHA Marin JR 11/01/2020 I25.10 Atherosclerotic hear t disease of [place] coronary artery without angina pectoris RADHA Marin JR 10/04/2020 E78.00 Pure hypercholesterolemia, unspe cified Bill Tapia M.D. 10/04/2020 E03.9 Hypothyroidism, unspecified Jonathan Tapia M.D. 10/04/2020 G47.33 Obstructive sleep apnea (adult) (pediatric) Bill Tapia M.D. 10/04/2020 K21.9 Gastro-esophageal reflux disease without esophagitis Bill Tapia M.D. 10/04/2020 F34.1 Dysthymic disorder Bill fisher M.D. 10/04/2020 I25.10 Atherosclerotic hear t disease of [place] coronary artery without angina pectoris Bill Tapia [...] 10:30 am - Bill Tapia M.D. at [facility] Functional Status Description No Information Available Mental Status Description No Information Available Referrals Description No Information Available
--- OUTSIDE RECORDS SUMMARY | 2020-12-09 09:40 | CCD ---
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 Name Role Phone [facility]aci [facility] Unavailable Unavailabl e Fish, [facility], PA-C Unavailable Unavailabl e Fish, [facility], PA-C Unavailable Unavailabl e Fish, [facility], PA-C Unavailable Unavailabl e Fish, [facility], PA-C Unavailable Unavailabl e Fish, [facility], PA-C Unavailable Unavailabl e Fish, [facility], PA-C Unavailable Unavailabl e Fish, [facility], PA-C Unavailable Unavailabl e Fish, [facility], PA-C Unavailable Unavailabl e Fish, [facility], PA-C Unavailable Unavailabl e Fish, [facility], PA-C Unavailable Unavailabl e Fish, [facility], PA-C Unavailable Unavailabl e Fish, [facility], PA-C Unavailable Unavailabl e Fish, [facility], PA-C Unavailable Unavailabl e Fish, [facility], PA-C Unavailable Unavailabl e Fish, [facility], PA-C Unavailable Unavailabl e Fish, [facility], PA-C Unavailable Unavailabl e Fish, [facility], PA-C Unavailable Unavailabl e Fish, [facility], PA-C Unavailable Unavailabl e Fish, [facility], PA-C Unavailable Unavailabl e Fish, [facility], PA-C Unavailable Unavailabl e Fish, [facility], PA-C Unavailable Unavailabl e Fish, [facility], PA-C Unavailable Unavailabl e Fish, [facility], PA-C Unavailable Unavailabl e Fish, [facility], PA-C Unavailable Unavailabl e Fish, [facility], PA-C Unavailable Unavailabl e Fish, [facility], PA-C Unavailable Unavailabl e Fish, [facility], PA-C Unavailable Unavailabl e Fish, [facility], PA-C Unavailable Unavailabl e Fish, [facility], PA-C Unavailable Unavailabl e Fish, [facility], PA-C Unavailable Unavailabl e Fish, [facility], PA-C Unavailable Unavailabl e Fish, [facility], PA-C Unavailable Unavailabl e Fish, [facility], PA-C Unavailable Unavailabl e Fish, [facility], PA-C Unavailable Unavailabl e JOHN PHILLIPS MD Unavailable Unavailable JOHN PHILLIPS MD Unavailable Unavailable JOHN PHILLIPS MD Unavailable Unavailable JOHN PHILLIPS MD Unavailable Unavailable JOHN PHILLIPS MD Unavailable Unavailable JOHN PHILLIPS MD Unavailable Unavailable JOHN PHILLIPS MD Unavailable Unavailable JOHN PHILLIPS MD Unavailable Unavailable JOHN PHILLIPS MD Unavailable Unavailable JOHN PHILLIPS MD Unavailable Unavailable JOHN PHILLIPS MD Unavailable Unavailable JOHN PHILLIPS MD Unavailable Unavailable JOHN PHILLIPS MD Unavailable Unavailable JOHN PHILLIPS MD Unavailable Unavailable JOHN PHILLIPS MD Unavailable Unavailable JOHN PHILLIPS MD Unavailable Unavailable JOHN PHILLIPS MD Unavailable Unavailable JOHN PHILLIPS MD Unavailable Unavailable CHROSTOWSKI, JOHN MD Unavailable Unavailable CHROSTOWSKI, JOHN MD Unavailable Unavailable CHROSTOWSKI, JOHN MD Unavailable Unavailable CHROSTOWSKI, JOHN MD Unavailable Unavailable CHROSTOWSKI, JOHN MD Unavailable Unavailable CHROSTOWSKI, JOHN MD Unavailable Unavailable CHROSTOWSKI, JOHN MD Unavailable Unavailable CHROSTOWSKI, JOHN MD Unavailable Unavailable CHROSTOWSKI, JOHN MD Unavailable Unavailable CHROSTOWSKI, JOHN MD Unavailable Unavailable CHROSTOWSKI, JOHN MD Unavailable Unavailable CHROSTOWSKI, JOHN MD Unavailable Unavailable CHROSTOWSKI, JOHN MD Unavailable Unavailable CHROSTOWSKI, JOHN MD Unavailable Unavailable CHROSTOWSKI, JOHN MD Unavailable Unavailable CHROSTOWSKI, JOHN MD Unavailable Unavailable CHROSTOWSKI, JOHN MD Unavailable Unavailable CHROSTOWSKI, JOHN MD Unavailable Unavailable CHROSTOWSKI, JOHN MD Unavailable Unavailable CHROSTOWSKI, JOHN MD Unavailable Unavailable CHROSTOWSKI, JOHN MD Unavailable Unavailable El-Khally, A Ziad MD Unavailable Unavailable El-Khally, A Ziad MD Unavailable Unavailable El-Khally, A Ziad MD Unavailable Unavailable El-Khally, A Ziad MD Unavailable Unavailable El-Khally, A Ziad MD Unavailable Unavailable El-Khally, A Ziad MD Unavailable Unavailable El-Khally, A Ziad MD Unavailable Unavailable El-Khally, A Ziad MD Unavailable Unavailable El-Khally, A Ziad MD Unavailable Unavailable El-Khally, A Ziad MD Unavailable Unavailable El-Khally, A Ziad MD Unavailable Unavailable El-Khally, A Ziad MD Unavailable Unavailable El-Khally, A Ziad MD Unavailable Unavailable El-Khally, A Ziad MD Unavailable Unavailable El-Khally, A Ziad MD Unavailable Unavailable El-Khally, A Ziad MD Unavailable Unavailable El-Khally, A Ziad MD Unavailable Unavailable El-Khally, A Ziad MD Unavailable Unavailable El-Khally, A Ziad MD Unavailable Unavailable El-Khally, A Ziad MD Unavailable Unavailable El-Khally, A Ziad MD Unavailable Unavailable El-Khally, A Ziad MD Unavailable Unavailable El-Khally, A Ziad MD Unavailable Unavailable El-Khally, A Ziad MD Unavailable Unavailable El-Khally, A Ziad MD Unavailable Unavailable El-Khally, A Ziad MD Unavailable Unavailable El-Khally, A Ziad MD Unavailable Unavailable El-Khally, A Ziad MD Unavailable Unavailable El-Khally, A Ziad MD Unavailable Unavailable El-Khally, A Ziad MD Unavailable Unavailable El-Khally, A Ziad MD Unavailable Unavailable El-Khally, A Ziad MD Unavailable Unavailable El-Khally, A Ziad MD Unavailable Unavailable El-Khally, A Ziad MD Unavailable Unavailable El-Khally, A Ziad MD Unavailable Unavailable El-Khally, A Ziad MD Unavailable Unavailable El-Khally, A Ziad MD Unavailable Unavailable El-Khally, A Ziad MD Unavailable Unavailable El-Khally, A Ziad MD Unavailable Unavailable El-Khally, A Ziad MD Unavailable Unavailable El-Khally, A Ziad MD Unavailable Unavailable El-Khally, A Ziad MD Unavailable Unavailable El-Khally, A Ziad MD Unavailable Unavailable Trickey, J Ragini PA Unavailable Unavailable Trickey, J Ragini PA Unavailable Unavailable Trickey, J Ragini PA Unavailable Unavailable Trickey, J Ragini PA Unavailable Unavailable Trickey, J Ragini PA Unavailable Unavailable Trickey, J Ragini PA Unavailable Unavailable Trickey, J Ragini PA Unavailable Unavailable Trickey, J Ragini PA Unavailable Unavailable Trickey, J Ragini PA Unavailable Unavailable Trickey, J Ragini PA Unavailable Unavailable Trickey, J Ragini PA Unavailable Unavailable Trickey, J Ragini PA Unavailable Unavailable Trickey, J Ragini PA Unavailable Unavailable Trickey, J Ragini PA Unavailable Unavailable Trickey, J Ragini PA Unavailable Unavailable Trickey, J Ragini PA Unavailable Unavailable Trickey, J Ragini PA Unavailable Unavailable Trickey, J Ragini PA Unavailable Unavailable Trickey, J Ragini PA Unavailable Unavailable Trickey, J Ragini PA Unavailable Unavailable Trickey, J Ragini PA Unavailable Unavailable Trickey, J Ragini PA Unavailable Unavailable Trickey, J Ragini PA Unavailable Unavailable Trickey, J Ragini PA Unavailable Unavailable Trickey, J Ragini PA Unavailable Unavailable Trickey, J Ragini PA Unavailable Unavailable Trickey, J Ragini PA Unavailable Unavailable Trickey, J Ragini PA Unavailable Unavailable Trickey, J Ragini PA Unavailable Unavailable Trickey, J Ragini PA Unavailable Unavailable Trickey, J Ragini PA Unavailable Unavailable Trickey, J Ragini PA Unavailable Unavailable Trickey, J Ragini PA Unavailable Unavailable Trickey, J Ragini PA Unavailable Unavailable Trickey, J Ragini PA Unavailable Unavailable Trickey, J Ragini PA Unavailable Unavailable Trickey, J Ragini PA Unavailable Unavailable Trickey, J Ragini PA Unavailable Unavailable Trickey, J Ragini PA Unavailable Unavailable Trickey, J Ragini PA Unavailable Unavailable Trickey, J Ragini PA Unavailable Unavailable Trickey, J Ragini PA Unavailable Unavailable Trickey, J Ragini PA Unavailable Unavailable Trickey, J Ragini PA Unavailable Unavailable Trickey, J Ragini PA Unavailable Unavailable Trickey, J Ragini PA Unavailable Unavailable Trickey, J Ragini PA Unavailable Unavailable Trickey, J Ragini PA Unavailable Unavailable Trickey, J Ragini PA Unavailable Unavailable Dela Cruz, M Robert PA Unavailable Unavailable Dela Cruz, M Robert PA Unavailable Unavailable Dela Cruz, M Robert PA Unavailable Unavailable Dela Cruz, M Robert PA Unavailable Unavailable Dela Cruz, M Robert PA Unavailable Unavailable Dela Cruz, M Robert PA Unavailable Unavailable Dela Cruz, M Robert PA Unavailable Unavailable Dela Cruz, M Robert PA Unavailable Unavailable Dela Cruz, M Robert PA Unavailable Unavailable Dela Cruz, M Robert PA Unavailable Unavailable Dela Cruz, M Robert PA Unavailable Unavailable Dela Cruz, M Robert PA Unavailable Unavailable Dela Cruz, M Robert PA Unavailable Unavailable Dela Cruz, M Orbert PA Unavailable Unavailable Dela Cruz, M Robert PA Unavailable Unavailable Dela Cruz, M Robert PA Unavailable Unavailable Dela Cruz, M Robert PA Unavailable Unavailable Dela Cruz, M Robert PA Unavailable Unavailable Dela Cruz, M Robert PA Unavailable Unavailable Dela Cruz, M Robert PA Unavailable Unavailable Dela Cruz, M Robert PA Unavailable Unavailable Dela Cruz, M Robert PA Unavailable Unavailable Dela Cruz, M Robert PA Unavailable Unavailable Dela Cruz, M Robert PA Unavailable Unavailable Dela Cruz, M Robert PA Unavailable Unavailable Dela Cruz, M Robert PA Unavailable Unavailable Dela Cruz, M Robert PA Unavailable Unavailable Dela Cruz, M Robert PA Unavailable Unavailable Dela Cruz, M Robetr PA Unavailable Unavailable Deal Cruz, M Robert PA Unavailable Unavailable Dela Cruz, M Robert PA Unavailable Unavailable Dela Cruz, M Robert PA Unavailable Unavailable Dela Cruz, M Robert PA Unavailable Unavailable Dela Cruz, M Robert PA Unavailable Unavailable Dela Cruz, M Robert PA Unavailable Unavailable Dela Cruz, M Robert PA Unavailable Unavailable Dela Cruz, M Robert PA Unavailable Unavailable Dela Cruz, M Robert PA Unavailable Unavailable Dela Cruz, M Robert PA Unavailable Unavailable Dela Cruz, M Robert PA Unavailable Unavailable Dela Cruz, M Robert PA Unavailable Unavailable Dela Cruz, M Robert PA Unavailable Unavailable Dela Cruz, M Robert PA Unavailable Unavailable Dela Cruz, M Robert PA Unavailable Unavailable Dela Cruz, M Robert PA Unavailable Unavailable Dela Cruz, M Robert PA Unavailable Unavailable Dela Cruz, M Robert PA Unavailable Unavailable Dela Cruz, M Robert PA Unavailable Unavailable Dela Cruz, M Robert PA Unavailable Unavailable Martin, M Barratt PA Unavailable Unavailable Martin, M Barratt PA Unavailable Unavailable Martin, M Barratt PA Unavailable Unavailable Martin, M Barratt PA Unavailable Unavailable Martin, M Barratt PA Unavailable Unavailable Martin, M Barratt PA Unavailable Unavailable Martin, M Barratt PA Unavailable Unavailable Martin, M Barratt PA Unavailable Unavailable Martin, M Barratt PA Unavailable Unavailable Martin, M Barratt PA Unavailable Unavailable Martin, M Barratt PA Unavailable Unavailable Martin, M Barratt PA Unavailable Unavailable Martin, M Barratt PA Unavailable Unavailable Martin, M Barratt PA Unavailable Unavailable Martin, M Barratt PA Unavailable Unavailable Martin, M Barratt PA Unavailable Unavailable Martin, M Barratt PA Unavailable Unavailable Martin, M Barratt PA Unavailable Unavailable Martin, M Barratt PA Unavailable Unavailable Martin, M Barratt PA Unavailable Unavailable Martin, M Barratt PA Unavailable Unavailable Martin, M Barratt PA Unavailable Unavailable Martin, M Barratt PA Unavailable Unavailable Martin, M Barratt PA Unavailable Unavailable Martin, M Barratt PA Unavailable Unavailable Martin, M Barratt PA Unavailable Unavailable Martin, M Barratt PA Unavailable Unavailable Martin, M Barratt PA Unavailable Unavailable Martin, M Barratt PA Unavailable Unavailable JOSE, BHUPENDRA PA Unavailable Unavailable JOSE, BHUPENDRA PA Unavailable Unavailable JOSE, BHUPENDRA PA Unavailable Unavailable JOSE, BHUPENDRA PA Unavailable Unavailable JOSE, BHUPENDRA PA Unavailable Unavailable JOSE, BHUPENDRA PA Unavailable Unavailable JOSE, BHUPENDRA PA Unavailable Unavailable JOSE, BHUPENDRA PA Unavailable Unavailable JOSE, BHUPENDRA PA Unavailable Unavailable JOSE, BHUPENDRA PA Unavailable Unavailable JOSE, BHUPENDRA PA Unavailable Unavailable JOSE, BHUPENDRA PA Unavailable Unavailable JOSE, BHUPENDRA PA Unavailable Unavailable JOSE, BHUPENDRA PA Unavailable Unavailable JOSE, BHUPENDRA PA Unavailable Unavailable JOSE, BHUPENDRA PA Unavailable Unavailable JOSE, BHUPENDRA PA Unavailable Unavailable JOSE, BHUPENDRA PA Unavailable Unavailable JOSE, BHUPENDRA PA Unavailable Unavailable JOSE, BHUPENDRA PA Unavailable Unavailable JOSE, BHUPENDRA PA Unavailable Unavailable JOSE, BHUPENDRA PA Unavailable Unavailable JOSE, BHUPENDRA PA Unavailable Unavailable JOSE, BHUPENDRA PA Unavailable Unavailable JOSE, BHUPENDRA PA Unavailable Unavailable JOSE, BHUPENDRA PA Unavailable Unavailable JOSE, BHUPENDRA PA Unavailable Unavailable JOSE, BHUPENDRA PA Unavailable Unavailable JOSE, BHUPENDRA PA Unavailable Unavailable JOSE, BHUPENDRA PA Unavailable Unavailable JOSE, BHUPENDRA PA Unavailable Unavailable JOSE, BHUPENDRA PA Unavailable Unavailable JOSE, BHUPENDRA PA Unavailable Unavailable JOSE, BHUPENDRA PA Unavailable Unavailable JOSE, BHUPENDRA PA Unavailable Unavailable JOSE, BHUPENDRA PA Unavailable Unavailable Jumalon, M Razia SUPERVISOR PHOTOCOMPOSITION Unavailable Unavailable Jumalon, M Razia SUPERVISOR PHOTOCOMPOSITION Unavailable Unavailable Jumalon, M Razia SUPERVISOR PHOTOCOMPOSITION Unavailable Unavailable Jumalon, M Razia SUPERVISOR PHOTOCOMPOSITION Unavailable Unavailable Jumalon, M Razia SUPERVISOR PHOTOCOMPOSITION Unavailable Unavailable Jumalon, M Razia SUPERVISOR PHOTOCOMPOSITION Unavailable Unavailable Jumalon, M Razia SUPERVISOR PHOTOCOMPOSITION Unavailable Unavailable Jumalon, M Razia SUPERVISOR PHOTOCOMPOSITION Unavailable Unavailable Jumalon, M Razia SUPERVISOR PHOTOCOMPOSITION Unavailable Unavailable Jumalon, M Razia SUPERVISOR PHOTOCOMPOSITION Unavailable Unavailable Jumalon, M Razia SUPERVISOR PHOTOCOMPOSITION Unavailable Unavailable Jumalon, M Razia SUPERVISOR PHOTOCOMPOSITION Unavailable Unavailable Jumalon, M Razia SUPERVISOR PHOTOCOMPOSITION Unavailable Unavailable Jumalon, M Razia SUPERVISOR PHOTOCOMPOSITION Unavailable Unavailable Jumalon, M Razia SUPERVISOR PHOTOCOMPOSITION Unavailable Unavailable Jumalon, M Razia SUPERVISOR PHOTOCOMPOSITION Unavailable Unavailable Jumalon, M Razia SUPERVISOR PHOTOCOMPOSITION Unavailable Unavailable Jumalon, M Razia SUPERVISOR PHOTOCOMPOSITION Unavailable Unavailable Jumalon, M Razia SUPERVISOR PHOTOCOMPOSITION Unavailable Unavailable Jumalon, M Razia SUPERVISOR PHOTOCOMPOSITION Unavailable Unavailable Jumalon, M Razia SUPERVISOR PHOTOCOMPOSITION Unavailable Unavailable Jumalon, M Razia SUPERVISOR PHOTOCOMPOSITION Unavailable Unavailable Jumalon, M Razia SUPERVISOR PHOTOCOMPOSITION Unavailable Unavailable Jumalon, M Razia SUPERVISOR PHOTOCOMPOSITION Unavailable Unavailable Jumalon, M Razia SUPERVISOR PHOTOCOMPOSITION Unavailable Unavailable Jumalon, M Razia SUPERVISOR PHOTOCOMPOSITION Unavailable Unavailable Jumalon, M Razia SUPERVISOR PHOTOCOMPOSITION Unavailable Unavailable Jumalon, M Razia SUPERVISOR PHOTOCOMPOSITION Unavailable Unavailable Jumalon, M Razia SUPERVISOR PHOTOCOMPOSITION Unavailable Unavailable Jumalon, M Razia SUPERVISOR PHOTOCOMPOSITION Unavailable Unavailable Rena Larsen, Kandi Deleon MD, FACS Unavailable Unavailable Kandi Clay MD, FACS Unavailable Unavailable Kandi Clay MD, FACS Unavailable Unavailable Kandi Clay MD, FACS Unavailable Unavailable Kandi Clay MD, FACS Unavailable Unavailable Chase Larsen, Kandi Deleon MD, FACS Unavailable Unavailable Chase Larsen, Kandi Deleon MD, FACS Unavailable Unavailable Chase Larsen, Kandi Deleon MD, FACS Unavailable Unavailable Chase Larsen, Kandi Deleon MD, FACS Unavailable Unavailable Chase Larsen, Kandi Deleon MD, FACS Unavailable Unavailable Chase Larsen, Kandi Deleon MD, FACS Unavailable Unavailable Chase Larsen, Kandi Deleon MD, FACS Unavailable Unavailable Chase Larsen, Kandi Deleon MD, FACS Unavailable Unavailable Chase Larsen, Kandi Deleon MD, FACS Unavailable Unavailable Chase Larsen, Kandi Deleon MD, FACS Unavailable Unavailable Chase Larsen, Kandi Deleon MD, FACS Unavailable Unavailable Chase Larsen, Kandi Deleon MD, FACS Unavailable Unavailable Chase Larsen, Kandi Deleon MD, FACS Unavailable Unavailable Chase Larsen, Kandi Deleon MD, FACS Unavailable Unavailable Chase Larsen, Kandi Deleon MD, FACS Unavailable Unavailable Chase Larsen, Kandi Deleon MD, FACS Unavailable Unavailable Chase Larsen, Kandi Deleon MD, FACS Unavailable Unavailable Chase Larsen, Kandi Deleon MD, FACS Unavailable Unavailable Chase Larsen, Kandi Deleon MD, FACS Unavailable Unavailable Chase Larsen, Kandi Deleon MD, FACS Unavailable Unavailable Chase Larsen, Kandi Deleon MD, FACS Unavailable Unavailable Chase Larsen, Kandi Deleon MD, FACS Unavailable Unavailable Chase Larsen, Kandi Deleon MD, FACS Unavailable Unavailable Chase Larsen, Kandi Deleon MD, FACS Unavailable Unavailable Chase Larsen, Kandi Deleon MD, FACS Unavailable Unavailable Chase Larsen, Kandi Deleon MD, FACS Unavailable Unavailable Chase Larsen, Kandi Deleon MD, FACS Unavailable Unavailable Chase Larsen, Kandi Deleon MD, FACS Unavailable Unavailable Chase Larsen, Kandi Deleon MD, FACS Unavailable Unavailable Chase Larsen, Kandi Deleon MD, FACS Unavailable Unavailable Chase Larsen, Kandi Deleon MD, FACS Unavailable Unavailable Chase Larsen, Kandi Deleon MD, FACS Unavailable Unavailable Chase Larsen, Kandi Deleon MD, FACS Unavailable Unavailable Chase Larsen, Kandi Deleon MD, FACS Unavailable Unavailable SleShayy miles MD Unavailable Unavailable SlemagokaShayy MD Unavailable Unavailable SlezkaShayy MD Unavailable Unavailable SlezkaDonovanjleanna LOPEZ Unavailable Unavailable SlezkaCostatech Unavailable Unavailable SlezkaDonovanjtech Unavailable Unavailable SlezkaShayy MD Unavailable Unavailable SlezkaDonovanjtech Unavailable Unavailable SlezkaDonovanjtech Unavailable Unavailable SlezkaDonovanjtech Unavailable Unavailable SlezkaDonovanjtech Unavailable Unavailable SlezkaDonovanjtech Unavailable Unavailable SlezkaDonovanjtech Unavailable Unavailable SlezkaDonovanjtech Unavailable Unavailable Slezka, Vojtech Unavailable Unavailable Slezka, Vojtech Unavailable Unavailable Shayy Reyes MD Unavailable Unavailable Shayy Reyes MD Unavailable Unavailable Shayy Reyes MD Unavailable Unavailable Shayy Reyes MD Unavailable Unavailable Shayy Reyes MD Unavailable Unavailable Shayy Reyes MD Unavailable Unavailable Shayy Reyes MD Unavailable Unavailable Shayy Reyes MD Unavailable Unavailable Shayy Reyes MD Unavailable Unavailable Shayy Reyes MD Unavailable Unavailable Shayy Reyes MD Unavailable Unavailable Shayy Reyes MD Unavailable Unavailable Shayy Reyes MD Unavailable Unavailable Shayy Reyes MD Unavailable Unavailable Shayy Reyes MD Unavailable Unavailable Shayy Reyes MD Unavailable Unavailable Shayy Reyes MD Unavailable Unavailable Shayy Reyes MD Unavailable Unavailable Shayy Reyes MD Unavailable Unavailable Shayy Reyes MD Unavailable Unavailable Shayy Reyes MD Unavailable Unavailable Shayy Reyes MD Unavailable Unavailable Shayy Reyes MD Unavailable Unavailable Shayy Reyes MD Unavailable Unavailable Shayy Reyes MD Unavailable Unavailable Shayy Reyes MD Unavailable Unavailable Shayy Reyes MD Unavailable Unavailable Shayy Reyes MD Unavailable Unavailable Shayy Reyes MD Unavailable Unavailable Shayy Reyes MD Unavailable Unavailable Shayy Reyes MD Unavailable Unavailable Shayy Reyes MD Unavailable Unavailable Shayy Reyes MD Unavailable Unavailable Shayy Reyes MD Unavailable Unavailable Shayy Reyes MD Unavailable Unavailable Shayy Reyes MD Unavailable Unavailable Shayy Reyes MD Unavailable Unavailable Shayy Reyes MD Unavailable Unavailable Shayy Reyes MD Unavailable Unavailable Shayy eRyes MD Unavailable Unavailable Shayy Reyes MD Unavailable Unavailable Shayy Reyes MD Unavailable Unavailable LePine, M Tracey OUTSOLE CEMENTER MACHINE Unavailable Unavailable LePine, M Tracey OUTSOLE CEMENTER MACHINE Unavailable Unavailable LePine, M Tracey OUTSOLE CEMENTER MACHINE Unavailable Unavailable LePine, M Tracey OUTSOLE CEMENTER MACHINE Unavailable Unavailable LePine, M Tracey OUTSOLE CEMENTER MACHINE Unavailable Unavailable LePine, M Tracey OUTSOLE CEMENTER MACHINE Unavailable Unavailable LePine, M Tracey OUTSOLE CEMENTER MACHINE Unavailable Unavailable LePine, M Tracey OUTSOLE CEMENTER MACHINE Unavailable Unavailable LePine, M Tracey OUTSOLE CEMENTER MACHINE Unavailable Unavailable LePine, M Tracey OUTSOLE CEMENTER MACHINE Unavailable Unavailable LePine, M Tracey OUTSOLE CEMENTER MACHINE Unavailable Unavailable LePine, M Tracey OUTSOLE CEMENTER MACHINE Unavailable Unavailable LePine, M Tracey OUTSOLE CEMENTER MACHINE Unavailable Unavailable LePine, M Tracey OUTSOLE CEMENTER MACHINE Unavailable Unavailable LePine, M Tracey OUTSOLE CEMENTER MACHINE Unavailable Unavailable LePine, M Tracey OUTSOLE CEMENTER MACHINE Unavailable Unavailable LePine, M Tracey OUTSOLE CEMENTER MACHINE Unavailable Unavailable LePine, M Tracey OUTSOLE CEMENTER MACHINE Unavailable Unavailable LePine, M Tracey OUTSOLE CEMENTER MACHINE Unavailable Unavailable LePine, M Tracey OUTSOLE CEMENTER MACHINE Unavailable Unavailable LePine, M Tracey OUTSOLE CEMENTER MACHINE Unavailable Unavailable LePine, M Tracey OUTSOLE CEMENTER MACHINE Unavailable Unavailable LePine, M Tracey OUTSOLE CEMENTER MACHINE Unavailable Unavailable LePine, M Tracey OUTSOLE CEMENTER MACHINE Unavailable Unavailable LePine, M Tracey OUTSOLE CEMENTER MACHINE Unavailable Unavailable LePine, M Tracey OUTSOLE CEMENTER MACHINE Unavailable Unavailable LePine, M Tracey OUTSOLE CEMENTER MACHINE Unavailable Unavailable LePine, M Tracey OUTSOLE CEMENTER MACHINE Unavailable Unavailable LePine, M Tracey OUTSOLE CEMENTER MACHINE Unavailable Unavailable LePine, M Tracey OUTSOLE CEMENTER MACHINE Unavailable Unavailable LePine, M Tracey OUTSOLE CEMENTER MACHINE Unavailable Unavailable LePine, M Tracey OUTSOLE CEMENTER MACHINE Unavailable Unavailable LePine, M Tracey OUTSOLE CEMENTER MACHINE Unavailable Unavailable LePine, M Tracey OUTSOLE CEMENTER MACHINE Unavailable Unavailable LePine, M Tracey OUTSOLE CEMENTER MACHINE Unavailable Unavailable LePine, M Tracey OUTSOLE CEMENTER MACHINE Unavailable Unavailable LePine, M Tracey OUTSOLE CEMENTER MACHINE Unavailable Unavailable LePine, M Tracey OUTSOLE CEMENTER MACHINE Unavailable Unavailable LePine, M Tracey OUTSOLE CEMENTER MACHINE Unavailable Unavailable LePine, M Tracey OUTSOLE CEMENTER MACHINE Unavailable Unavailable LePine, M Tracey OUTSOLE CEMENTER MACHINE Unavailable Unavailable LePine, M Tracey OUTSOLE CEMENTER MACHINE Unavailable Unavailable LePine, M Tracey OUTSOLE CEMENTER MACHINE Unavailable Unavailable LePine, M Tracey OUTSOLE CEMENTER MACHINE Unavailable Unavailable LePine, M Tracey OUTSOLE CEMENTER MACHINE Unavailable Unavailable LePine, M Tracey OUTSOLE CEMENTER MACHINE Unavailable Unavailable LePine, M Tracey OUTSOLE CEMENTER MACHINE Unavailable Unavailable LePine, M Tracey OUTSOLE CEMENTER MACHINE Unavailable Unavailable LePine, M Tracey OUTSOLE CEMENTER MACHINE Unavailable Unavailable LePine, M Tracey OUTSOLE CEMENTER MACHINE Unavailable Unavailable LePine, M Tracey OUTSOLE CEMENTER MACHINE Unavailable Unavailable LePine, M Tracey OUTSOLE CEMENTER MACHINE Unavailable Unavailable LePine, M Tracey OUTSOLE CEMENTER MACHINE Unavailable Unavailable LePine, M Tracey OUTSOLE CEMENTER MACHINE Unavailable Unavailable LePine, M Tracey OUTSOLE CEMENTER MACHINE Unavailable Unavailable LePine, M Tracey OUTSOLE CEMENTER MACHINE Unavailable Unavailable Jamshid Tapia MD Unavailable Unavailable Jamshid Tapia MD Unavailable Unavailable Jamshid Tapia MD Unavailable Unavailable Jamshid Tapia MD Unavailable Unavailable Jamshid Tapia MD Unavailable Unavailable Jamshid Tapia MD Unavailable Unavailable Jamshid Tapia MD Unavailable Unavailable Jamshid Tapia MD Unavailable Unavailable Jamshid Tapia MD Unavailable Unavailable Jamshid Tapia MD Unavailable Unavailable Jamshid Tapia MD Unavailable Unavailable Jamshid Tapia MD Unavailable Unavailable Jamshid Tapia MD Unavailable Unavailable Jamshid Tapia MD Unavailable Unavailable Jamshid Tapia MD Unavailable Unavailable Jamshid Tapia MD Unavailable Unavailable Jamshid Tapia Bill LOPEZ Unavailable Unavailable White F Bill LOPEZ Unavailable Unavailable White F Bill LOPEZ Unavailable Unavailable White F Bill LOPEZ Unavailable Unavailable White F Bill LOPEZ Unavailable Unavailable White F Bill LOPEZ Unavailable Unavailable White F Bill LOPEZ Unavailable Unavailable White F Bill LOPEZ Unavailable Unavailable White F Bill LOPEZ Unavailable Unavailable White F Bill LOPEZ Unavailable Unavailable White F Bill LOPEZ Unavailable Unavailable Regina F Bill LOPEZ Unavailable Unavailable White F Bill LOPEZ Unavailable Unavailable White F Bill LOPEZ Unavailable Unavailable White F Bill LOPEZ Unavailable Unavailable White F Bill LOPEZ Unavailable Unavailable White F Bill LOPEZ Unavailable Unavailable White F Bill LOPEZ Unavailable Unavailable White F Bill LOPEZ Unavailable Unavailable White F Bill LOPEZ Unavailable Unavailable White F Bill LOPEZ Unavailable Unavailable White F Bill LOPEZ Unavailable Unavailable White F Bill LOPEZ Unavailable Unavailable White F Bill LOPEZ Unavailable Unavailable Regina F Bill LOPEZ Unavailable Unavailable Regina F Bill LOPEZ Unavailable Unavailable Regina F Bill LOPEZ Unavailable Unavailable Regina F Bill LOPEZ Unavailable Unavailable Regina F Bill LOPEZ Unavailable Unavailable Regina F Bill LOPEZ Unavailable Unavailable Regina F Bill LOPEZ Unavailable Unavailable Regina F Bill LOPEZ Unavailable Unavailable Regina F Bill LOPEZ Unavailable Unavailable Regina F Bill LOPEZ Unavailable Unavailable Jamshid Tapia MD Unavailable Unavailable Jamshid Tapia MD Unavailable Unavailable Jamshid Tapia MD Unavailable Unavailable Jamshid Tapia MD Unavailable Unavailable Jamshid Tapia MD Unavailable Unavailable Jamshid Tapia MD Unavailable Unavailable Jamshid Tapia MD Unavailable Unavailable Jamshid Tapia MD Unavailable Unavailable Jamshid Tapia MD Unavailable Unavailable Jamshid Tapia MD Unavailable Unavailable Jamshid Tapia MD Unavailable Unavailable Jamshid Tapia MD Unavailable Unavailable Jamshid Tapia MD Unavailable Unavailable Jamshid Tapia MD Unavailable Unavailable Regina F Bill LOPEZ Unavailable Unavailable Regina F Bill LOPEZ Unavailable Unavailable Jamshid Tapia MD Unavailable Unavailable Jamshid Tapia MD Unavailable Unavailable Jamshid Tapia MD Unavailable Unavailable Jamshid Tapia MD Unavailable Unavailable Jamshid Tapia MD Unavailable Unavailable Jamshid Tapia MD Unavailable Unavailable Jamshid Tapia MD Unavailable Unavailable Jamshid Tapia MD Unavailable Unavailable Jamshid Tapia MD Unavailable Unavailable Jamshid Tapia MD Unavailable Unavailable Jamshid Tapia MD Unavailable Unavailable MCELHERAN, RUBÉN PA Unavailable Unavailable MCELHERAN, RUBÉN PA Unavailable Unavailable MCELHERAN, RUBÉN PA Unavailable Unavailable MCELHERAN, RUBÉN PA Unavailable Unavailable MCELHERAN, RUBÉN PA Unavailable Unavailable MCELHERAN, RUBÉN PA Unavailable Unavailable MCELHERAN, RUBÉN PA Unavailable Unavailable MCELHERAN, RUBÉN PA Unavailable Unavailable MCELHERAN, RUBÉN PA Unavailable Unavailable MCELHERAN, RUBÉN PA Unavailable Unavailable MCELHERAN, RUBÉN PA Unavailable Unavailable MCELHERAN, RUBÉN PA Unavailable Unavailable MCELHERAN, RUBÉN PA Unavailable Unavailable MCELHERAN, RUBÉN PA Unavailable Unavailable MCELHERAN, RUBÉN PA Unavailable Unavailable MCELHERAN, RUBÉN PA Unavailable Unavailable MCELHERAN, RUBÉN PA Unavailable Unavailable MCELHERAN, RUBÉN PA Unavailable Unavailable MCELHERAN, RUBÉN PA Unavailable Unavailable MCELHERAN, RUBÉN PA Unavailable Unavailable MCELHERAN, RUBÉN PA Unavailable Unavailable MCELHERAN, RUBÉN PA Unavailable Unavailable MCELHERAN, RUBÉN PA Unavailable Unavailable MCELHERAN, RUBÉN PA Unavailable Unavailable MCELHERAN, RUBÉN PA Unavailable Unavailable MCELHERAN, RUBÉN PA Unavailable Unavailable MCELHERAN, RUBÉN PA Unavailable Unavailable MCELHERAN, RUBÉN PA Unavailable Unavailable MCELHERAN, RUBÉN PA Unavailable Unavailable Jamshid Tapia MD Unavailable Unavailable Jamshid Tapia MD Unavailable Unavailable Jamshid Tapia MD Unavailable Unavailable Jamshid Tapia MD Unavailable Unavailable Jamshid Tapia MD Unavailable Unavailable Jamshid Tapia MD Unavailable Unavailable Jamshid Tapia MD Unavailable Unavailable Jamshid Tapia MD Unavailable Unavailable Jamshid Tapia MD Unavailable Unavailable Jamshid Tapia MD Unavailable Unavailable Jamshid Tapia MD Unavailable Unavailable Jamshid Tapia MD Unavailable Unavailable Jamshid Tapia MD Unavailable Unavailable Jamshid Tapia MD Unavailable Unavailable Jamshid Tapia MD Unavailable Unavailable Jamshid Tapia MD Unavailable Unavailable aJmshid Tapia MD Unavailable Unavailable Jamshid Tapia MD Unavailable Unavailable Jamshid Tapia MD Unavailable Unavailable Jamshid Tapia MD Unavailable Unavailable Jamshid Tapia MD Unavailable Unavailable Jamshid Tapia MD Unavailable Unavailable Jamshid Tapia MD Unavailable Unavailable Jamshid Tapia MD Unavailable Unavailable Jamshid Tpaia MD Unavailable Unavailable Jamshid Tapia MD Unavailable Unavailable Jamshid Tapia MD Unavailable Unavailable Jamshid Tapia MD Unavailable Unavailable Jamshid Tapia MD Unavailable Unavailable Jamshid Tapia MD Unavailable Unavailable Jamshid Tapia MD Unavailable Unavailable Jamshid Tapia MD Unavailable Unavailable Jamshid Tapia MD Unavailable Unavailable Jamshid Tapia MD Unavailable Unavailable Jamshid Tapia MD Unavailable Unavailable Jamshid Tapia MD Unavailable Unavailable Jamshid Tapia MD Unavailable Unavailable Jamshid Tapia MD Unavailable Unavailable Jamshid Tapia MD Unavailable Unavailable Jamshid Tapia MD Unavailable Unavailable Jamshid Tapia MD Unavailable Unavailable Jamshid Tapia MD Unavailable Unavailable Jamshid Tapia MD Unavailable Unavailable Jamshid Tapia MD Unavailable Unavailable Jamshid Tapia MD Unavailable Unavailable Jamshid Tapia MD Unavailable Unavailable Jamshid Tapai MD Unavailable Unavailable Jamshid Tapia MD Unavailable Unavailable Jamshid Tapia MD Unavailable Unavailable Jamshid Tapia MD Unavailable Unavailable Jamshid Tapia MD Unavailable Unavailable Jamshid Tapia MD Unavailable Unavailable Jamshid Tapia MD Unavailable Unavailable Jamshid Tapia MD Unavailable Unavailable Jamshid Tapia MD Unavailable Unavailable Jamshid Tapia MD Unavailable Unavailable Jamshid Tapia MD Unavailable Unavailable Jamshid Tapia MD Unavailable Unavailable Jamshid Tapia MD Unavailable Unavailable Jamshid Tapia MD Unavailable Unavailable Jamshid Tapia MD Unavailable Unavailable Jamshid Tapia MD Unavailable Unavailable Jamshid Tapia MD Unavailable Unavailable Jamshid Tapia MD Unavailable Unavailable Jamshid Tapia MD Unavailable Unavailable Jamshid Tapia MD Unavailable Unavailable Jamshid Tapia MD Unavailable Unavailable Jamshid Tapia MD Unavailable Unavailable Jamshid Tapia MD Unavailable Unavailable Jamshid Tapia MD Unavailable Unavailable Jamshid Tapia MD Unavailable Unavailable Jamshid Tapia MD Unavailable Unavailable Jamshid Tapia MD Unavailable Unavailable Jamshid Tapia MD Unavailable Unavailable Jamshid Tapia MD Unavailable Unavailable Jamshid Tapia MD Unavailable Unavailable Jamshid Tapia MD Unavailable Unavailable PICKERAL JR, J MARLENE PA-C Unavailable Unavailable PICKERAL JR, J MARLENE PA-C Unavailable Unavailable PICKERAL JR, J MARLENE PA-C Unavailable Unavailable PICKERAL JR, J MARLENE PA-C Unavailable Unavailable PICKERAL JR, J MARLENE PA-C Unavailable Unavailable PICKERAL JR, J MARLENE PA-C Unavailable Unavailable PICKERAL JR, J MARLENE PA-C Unavailable Unavailable PICKERAL JR, J MARLENE PA-C Unavailable Unavailable PICKERAL JR, J MARLENE PA-C Unavailable Unavailable PICKERAL JR, J MARLENE PA-C Unavailable Unavailable PICKERAL JR, J MARLENE PA-C Unavailable Unavailable PICKERAL JR, J MARLENE PA-C Unavailable Unavailable PICKERAL JR, J MARLENE PA-C Unavailable Unavailable PICKERAL JR, J MARLENE PA-C Unavailable Unavailable PICKERAL JR, J MARLENE PA-C Unavailable Unavailable PICKERAL JR, J MARLENE PA-C Unavailable Unavailable PICKERAL JR, J MARLENE PA-C Unavailable Unavailable PICKERAL JR, J MARLENE PA-C Unavailable Unavailable PICKERAL JR, J MARLENE PA-C Unavailable Unavailable PICKERAL JR, J MARLENE PA-C Unavailable Unavailable PICKERAL JR, J MARLENE PA-C Unavailable Unavailable PICKERAL JR, J MARLENE PA-C Unavailable Unavailable PICKERAL JR, J MARLENE PA-C Unavailable Unavailable PICKERAL JR, J MARLENE PA-C Unavailable Unavailable PICKERAL JR, J MARLENE PA-C Unavailable Unavailable PICKERAL JR, J MARLENE PA-C Unavailable Unavailable PICKERAL JR, J MARLENE PA-C Unavailable Unavailable DRAZEK, I KENA PA Unavailable Unavailable DRAZEK, I KENA PA Unavailable Unavailable DRAZEK, I KENA PA Unavailable Unavailable DRAZEK, I KENA PA Unavailable Unavailable DRAZEK, I KENA PA Unavailable Unavailable DRAZEK, I KENA PA Unavailable Unavailable DRAZEK, I KENA PA Unavailable Unavailable DRAZEK, I KENA PA Unavailable Unavailable DRAZEK, I KENA PA Unavailable Unavailable DRAZEK, I KENA PA Unavailable Unavailable DRAZEK, I KENA PA Unavailable Unavailable DRAZEK, I KENA PA Unavailable Unavailable DRAZEK, I KENA PA Unavailable Unavailable DRAZEK, I KENA PA Unavailable Unavailable DRAZEK, I KENA PA Unavailable Unavailable DRAZEK, I KENA PA Unavailable Unavailable DRAZEK, I KENA PA Unavailable Unavailable DRAZEK, I KENA PA Unavailable Unavailable DRAZEK, I KENA PA Unavailable Unavailable DRAZEK, I KENA PA Unavailable Unavailable DRAZEK, I KENA PA Unavailable Unavailable DRAZEK, I KENA PA Unavailable Unavailable DRAZEK, I KENA PA Unavailable Unavailable DRAZEK, I KENA PA Unavailable Unavailable DRAZEK, I KENA PA Unavailable Unavailable DRAZEK, I KENA PA Unavailable Unavailable DRAZEK, I KENA PA Unavailable Unavailable DRAZEK, I KENA PA Unavailable Unavailable DRAZEK, I KENA PA Unavailable Unavailable DRAZEK, I KENA PA Unavailable Unavailable Fons, M Tracey SUPERVISOR PHOTOCOMPOSITION Unavailable Unavailable Fons, M Tracey SUPERVISOR PHOTOCOMPOSITION Unavailable Unavailable Fons, M Tracey SUPERVISOR PHOTOCOMPOSITION Unavailable Unavailable Fons, M Tracey SUPERVISOR PHOTOCOMPOSITION Unavailable Unavailable Fons, M Tracey SUPERVISOR PHOTOCOMPOSITION Unavailable Unavailable Fons, M Tracey SUPERVISOR PHOTOCOMPOSITION Unavailable Unavailable Fons, M Tracey SUPERVISOR PHOTOCOMPOSITION Unavailable Unavailable Fons, M Tracey SUPERVISOR PHOTOCOMPOSITION Unavailable Unavailable Fons, M Tracey SUPERVISOR PHOTOCOMPOSITION Unavailable Unavailable Fons, M Tracey SUPERVISOR PHOTOCOMPOSITION Unavailable Unavailable Fons, M Tracey SUPERVISOR PHOTOCOMPOSITION Unavailable Unavailable Fons, M Tracey SUPERVISOR PHOTOCOMPOSITION Unavailable Unavailable Fons, M Tracey SUPERVISOR PHOTOCOMPOSITION Unavailable Unavailable Fons, M Tracey SUPERVISOR PHOTOCOMPOSITION Unavailable Unavailable Fons, M Tracey SUPERVISOR PHOTOCOMPOSITION Unavailable Unavailable Fons, M Tracey SUPERVISOR PHOTOCOMPOSITION Unavailable Unavailable Fons, M Tracey SUPERVISOR PHOTOCOMPOSITION Unavailable Unavailable Fons, M Tracey SUPERVISOR PHOTOCOMPOSITION Unavailable Unavailable Fons, M Tracey SUPERVISOR PHOTOCOMPOSITION Unavailable Unavailable Fons, M Tracey SUPERVISOR PHOTOCOMPOSITION Unavailable Unavailable Fons, M Tracey SUPERVISOR PHOTOCOMPOSITION Unavailable Unavailable Fons, M Tracey SUPERVISOR PHOTOCOMPOSITION Unavailable Unavailable Fons, M Tracey SUPERVISOR PHOTOCOMPOSITION Unavailable Unavailable Fons, M Tracey SUPERVISOR PHOTOCOMPOSITION Unavailable Unavailable Fons, M Tracey SUPERVISOR PHOTOCOMPOSITION Unavailable Unavailable Fons, M Tracey SUPERVISOR PHOTOCOMPOSITION Unavailable Unavailable Fons, M Tracey SUPERVISOR PHOTOCOMPOSITION Unavailable Unavailable Fons, M Tracey SUPERVISOR PHOTOCOMPOSITION Unavailable Unavailable Fons, M Tracey SUPERVISOR PHOTOCOMPOSITION Unavailable Unavailable Fons, M Tracey SUPERVISOR PHOTOCOMPOSITION Unavailable Unavailable Fons, M Tracey SUPERVISOR PHOTOCOMPOSITION Unavailable Unavailable Fons, M Tracey SUPERVISOR PHOTOCOMPOSITION Unavailable Unavailable Fons, M Tracey SUPERVISOR PHOTOCOMPOSITION Unavailable Unavailable Fons, M Tracey SUPERVISOR PHOTOCOMPOSITION Unavailable Unavailable Fons, M Tracey SUPERVISOR PHOTOCOMPOSITION Unavailable Unavailable Fons, M Tracey SUPERVISOR PHOTOCOMPOSITION Unavailable Unavailable Fons, M Tracey SUPERVISOR PHOTOCOMPOSITION Unavailable Unavailable Fons, M Tracey SUPERVISOR PHOTOCOMPOSITION Unavailable Unavailable Fons, M Tracey SUPERVISOR PHOTOCOMPOSITION Unavailable Unavailable Fons, M Tracey SUPERVISOR PHOTOCOMPOSITION Unavailable Unavailable Fons, M Tracey SUPERVISOR PHOTOCOMPOSITION Unavailable Unavailable Fons, M Tracey SUPERVISOR PHOTOCOMPOSITION Unavailable Unavailable Fons, M Tracey SUPERVISOR PHOTOCOMPOSITION Unavailable Unavailable Fons, M Tracey SUPERVISOR PHOTOCOMPOSITION Unavailable Unavailable Fons, M Tracey SUPERVISOR PHOTOCOMPOSITION Unavailable Unavailable Fons, M Tracey SUPERVISOR PHOTOCOMPOSITION Unavailable Unavailable Fons, M Tracey SUPERVISOR PHOTOCOMPOSITION Unavailable Unavailable Fons, M Tracey SUPERVISOR PHOTOCOMPOSITION Unavailable Unavailable Fons, M Tracey SUPERVISOR PHOTOCOMPOSITION Unavailable Unavailable Fons, M Tracey SUPERVISOR PHOTOCOMPOSITION Unavailable Unavailable Fons, M Tracey SUPERVISOR PHOTOCOMPOSITION Unavailable Unavailable Fons, M Tracey SUPERVISOR PHOTOCOMPOSITION Unavailable Unavailable Fons, M Tracey SUPERVISOR PHOTOCOMPOSITION Unavailable Unavailable Nancy, V JIA PA-C Unavailable Unavailable Perry, V JIA PA-C Unavailable Unavailable Perry, V JIA PA-C Unavailable Unavailable Nancy, V JIA PA-C Unavailable Unavailable Perry, V JIA PA-C Unavailable Unavailable Perry, V JIA PA-C Unavailable Unavailable Perry, V JIA PA-C Unavailable Unavailable Perry, V JIA PA-C Unavailable Unavailable Perry, V JIA PA-C Unavailable Unavailable Perry, V JIA PA-C Unavailable Unavailable Perry, V JIA PA-C Unavailable Unavailable Perry, V JIA PA-C Unavailable Unavailable Perry, V JIA PA-C Unavailable Unavailable Nancy, V JIA PA-C Unavailable Unavailable Deven Farnsworth JR, MD Unavailable Unavailable Deven Farnsworth JR, MD Unavailable Unavailable Deven Farnsworth JR, MD Unavailable Unavailable Deven Farnsworth JR, MD Unavailable Unavailable Deven Farnsworth JR, MD Unavailable Unavailable Deven Farnsworth JR, MD Unavailable Unavailable Deven Farnsworth JR, MD Unavailable Unavailable Deven Farnsworth JR, MD Unavailable Unavailable Deven Farnsworth JR, MD Unavailable Unavailable Deven Farnsworth JR, MD Unavailable Unavailable Deven Farnsworth JR, MD Unavailable Unavailable Deven Farnsworth JR, MD Unavailable Unavailable Deven Farnsworth JR, MD Unavailable Unavailable Deven Farnsworth JR, MD Unavailable Unavailable Deven Farnsworth JR, MD Unavailable Unavailable Deven Farnsworth JR, MD Unavailable Unavailable Deven Farnsworth JR, MD Unavailable Unavailable Deven Farnsworth JR, MD Unavailable Unavailable Deven Farnsworth JR, MD Unavailable Unavailable Deven Farnsworth JR, MD Unavailable Unavailable Deven Farnsworth JR, MD Unavailable Unavailable Deven Farnsworth JR, MD Unavailable Unavailable Deven Farnsworth JR, MD Unavailable Unavailable Deven Farnsworth JR, MD Unavailable Unavailable Deven Farnsworth JR, MD Unavailable Unavailable Deven Farnsworth JR, MD Unavailable Unavailable Deven Fransworth JR, MD Unavailable Unavailable Deven Farnsworth JR, MD Unavailable Unavailable Deven Farnsworth JR, MD Unavailable Unavailable Deven Farnsworth JR, MD Unavailable Unavailable Deven Farnsworth JR, MD Unavailable Unavailable Deven Farnsworth JR, MD Unavailable Unavailable Deven Farnsworth JR, MD Unavailable Unavailable Deven Farnsworth JR, MD Unavailable Unavailable Deven Farnsworth JR, MD Unavailable Unavailable Deven Farnsworth JR, MD Unavailable Unavailable Deven Farnsworth JR, MD Unavailable Unavailable Deven Farnsworth JR, MD Unavailable Unavailable Deven Farnsworth JR, MD Unavailable Unavailable Deven Farnsworth JR, MD Unavailable Unavailable Daja JR, J Brant MD Unavailable Unavailable Daja JR, J Brant MD Unavailable Unavailable Daja JR, J Brant MD Unavailable Unavailable Daja JR, J Brant MD Unavailable Unavailable Daja JR, J Brant MD Unavailable Unavailable Daja JR, J Brant MD Unavailable Unavailable Daja JR, J Brant MD Unavailable Unavailable Daja JR, J Brant MD Unavailable Unavailable Daja JR, J Brant MD Unavailable Unavailable Daja JR, J Brant MD Unavailable Unavailable Daja JR, J Brant MD Unavailable Unavailable Daja JR, J Brant MD Unavailable Unavailable Daja JR, J Brant MD Unavailable Unavailable Daja JR, J Brant MD Unavailable Unavailable Re-disclosure Warning The records that you are about to access may contain information from federally-assisted alcohol or drug abuse programs. If such information is present, then the following federally mandated warning applies: This information has been disclosed to you from records protected by federal confidentiality rules (42 CFR part 2). The federal rules prohibit you from making any further disclosure of this information unless further disclosure is expressly permitted by the written consent of the person to whom it pertains or as otherwise permitted by 42 CFR part 2. A general authorization for the release of medical or other information is NOT sufficient for this purpose. The Federal rules restrict any use of the information to criminally investigate or prosecute any alcohol or drug abuse patient.The records that you are about to access may contain highly sensitive health information, the redisclosure of which is protected by Article 27-F of the [facility] Public Health law. If you continue you may have access to information: Regarding HIV / AIDS; Provided by facilities licensed or operated by the [facility] Office of Mental Health; or Provided by the [facility] Office for People With Developmental Disabilities. If such information is present, then the following [facility] mandated warning applies: This information has been disclosed to you from confidential records which are protected by state law. State law prohibits you from making any further disclosure of this information without the specific written consent of the person to whom it pertains, or as otherwise permitted by law. Any unauthorized further disclosure in violation of state law may result in a fine or senior care sentence or both. A general authorization for the release of medical or other information is NOT sufficient authorization for further disc losure. Allergies and Adverse Reactions Type Description Substance Reaction Status Data Source(s ) Propensity to adverse reactions MORPHINE Morphine Acti ve [facility] Propensity to adverse reactions ADHESIVE TAPE Adhesive Tape Rash Low Active [facility] Low Family History Family Member Name Family Member Gender Family Member Status Date o f Status Description Data Source(s) Unknown Unknown Problem [facility] ([facility]) brothers in 40's with [place] and survived. Encounters Encounter Providers Location Date Indications Data Source(s ) Outpatient Attender: Tenzin GARCIA Physical Therapy 09:30:00 AM EDT [facility] ([facility]) Outpatient Attender: Ragini GARCIA Main office - [facility] 11/30/2020 01:45:00 PM EDT [facility] ([facility]) Outpatient Attender: JOHN PHILLIPS MD Main Office 11/26/2020 10:30:00 AM EDT [facility] ([facility]) OFFICE OUTPATIENT VISIT 15 MINUTES Attender: RADHA Collado-C Physical Therapy 11/23/2020 11:15:00 AM EDT [facility] ([facility]) Razia Hussein SEM MANAGER: [id number], [address], [place] [address], Ph. Attender: Razia Hussein [facility] - [facility] - Main Office 11/19/2020 12:00:00 AM EDT ATHE NA ([facility]) Outpatient Attender: MARLENE Escalante 0 11/12/2020 02:00:00 PM EDT [facility] ([facility] ) Outpatient Attender: Tenzin GARCIA Physical Therapy 02:40:00 PM EDT [facility] ([facility]) Outpatient Attender: MARLENE Escalante 0 11/11/2020 01:40:00 PM EDT [facility] ([facility] ) Outpatient Attender: MARLENE Escalante 0 11/10/2020 01:40:00 PM EDT [facility] ([facility] ) Outpatient Attender: BHUPENDRA García ry 11/08/2020 01:50:00 PM EDT [facility] ([facility]) Outpatient [address] [facility] [id number] 11/08/2020 12:00:00 AM EDT eCW1 ([facility]) OFFICE OUTPATIENT VISIT 15 MINUTES Attender: RUBÉN GARCIA Physical Therapy 11/04/2020 02:00:00 PM EDT [facility] ([facility]) Unknown [address] [facility] [place] [address] 11/04/2020 12:00:00 AM EDT eCW1 ([facility]) Outpatient Attender: MARLENE Escalante 0 11/01/2020 10:40:00 AM EDT [facility] ([facility] ) Unknown [address] [facility] [id number] 11/01/2020 12:00:00 AM EDT eCW1 ([facility]) Outpatient Attender: Bill Escalante 10/04 11:30:00 AM EDT [facility] ([facility] ) Outpatient [address] [facility] [id number] 09/30/2020 12:00:00 AM EDT eCW1 ([facility]) Unknown [address] [facility] [place] [address] 09/30/2020 12:00:00 AM EDT eCW1 ([facility]) OFFICE OUTPATIENT VISIT 15 MINUTES Attender: KENA GARCIA Phys ical Therapy 09/29/2020 11:00:00 AM EDT [facility] ([facility]) Outpatient Attender: Tracey BUCKLEY SJP.[email or web address].LEOPOLDO 12:00:00 AM EDT - 09/28/2020 10:42:[address] [facility] Outpatient Attender: Ragini GARCIA Main office - [facility] 08/31/2020 10:00:00 AM EDT [facility] ([facility]) OFFICE OUTPATIENT VISIT 15 MINUTES Attender: KENA GARCIA Phys ical Therapy 08/17/2020 02:30:00 PM EDT [facility] ([facility]) Outpatient [address] [facility] [address] 08/16/2020 12:00:00 AM EDT eCW1 ([facility]) (PN Proc 45) Pain Procedure 45 [address] [place] [address] 07/15/2020 12:00:00 AM EDT eCW1 ([facility]) Unknown [address] [facility] [id number] 07/14/2020 12:00:00 AM EDT eCW1 ([facility]) Unknown [address] [facility] [id number] 07/08/2020 12:00:00 AM EDT eCW1 ([facility]) Outpatient Attender: Tracey VASQUEZ-SJPDianeLEOPOLDO 11:10:28 AM EDT - 06/29/2020 12:17:[address] [facility] Outpatient Attender: Audra Gomes MDAdmitter: Audra su MD [email or web address] 06/22/2020 11:07:00 AM EDT - 06/22/2020 06:00:[address] [facility] Patient discharged. Unknown [address] [facility] [id number] 06/22/2020 12:00:00 AM EDT eCW1 ([facility]) Outpatient Attender: Tracey VASQUEZ-SJPDianeLEOPOLDO 06/17/2020 12:00:[address] [facility] Outpatient [address] [facility] [address] 06/17/2020 12:00:00 AM EDT eCW1 ([facility]) Outpatient Attender: Tracey Araujo FNPReferrer: Tracey HANKSP .LEOPOLDO-[email or web address].LEOPOLDO 06/15/2020 10:50:41 AM EDT - 06/15/2020 12:24:[address] [facility] Outpatient Attender: Tracey Araujo FNPReferrer: Tracey BUCKLEY SJP .LEOPOLDO-SJP 06/15/2020 10:50:16 AM EDT - 06/15/2020 12:23:33 PM EDT [facility] Outpatient Attender: JOHN PHILLIPS MD Main Office 05/26/2020 10:30:00 AM EDT [facility] ([facility]) Outpatient Attender: Brant Zamarripa/Kasey/Amrit/Jon miller 05/24/2020 03:15:00 PM EDT MEDENT ([facility], ) Outpatient Attender: Ragini GARCIA Main office [facility] 05/24/2020 11:30:00 AM EDT MEDENT ([facility] og, ) Outpatient Attender: Bill Escalante 05/03 03:00:00 PM EDT MEDENT ([facility] ) <td ID="encounterTypeDescriptionID0">1 Y ear Follow-Up</td><td>Pancho Larsen MD, FACS</td><td>Pancho Mayorga MD [facility]</td><td>04/27/2020</td><td>9:16AM</td><td>04/25/2019 11:59PM</td><td> <content ID="encounterDiagnosisID0-0">Essential Hypertension</content>, <content ID="encounterDiagnosisID0-1">Retinopathy Hypertensive</content>, <content ID="encounterDiagnosisID0-2">Conjunctivitis Chronic Allergic</content>, <content ID="encounterDiagnosisID0-3">Dry Eye Syndrome Both Eyes</content></td>Outpatient Attender: Pancho Larsen MD, FACS Pancho Mayorga MD [facility] 04/27/2020 09:16:00 AM EST - 04/25/2019 11:59:00 PM EST Retinopathy HypertensiveDry Eye Syndrome Both EyesEssential HypertensionConjunctivitis Chronic Allergic JERI (Pancho Larsen MD 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 Outpatient Attender: JIA WOODSLEOPOLDO-SJPDianeLEOPOLDO 12:00:00 AM EST - 03/11/2020 03:15:[address] [facility] Razia Hussein, SEM MANAGER: [address], [place] [address], Ph. Attender: Razia Jualma [facility] 03/09/2020 12:00:00 AM EST ATHE NA ([facility]) Razia Hussein, SEM MANAGER: [address], [place] [address], Ph. Attender: Razia Hussein [facility] 03/09/2020 12:00:00 AM EST ATHE NA ([facility]) Outpatient Attender: Tracey Escalante 03/05 02:00:00 PM EST MEDENT ([facility] ) Office Visit Attender: Ragini GARCIA [facility] 02/23/2020 09:45:00 AM EST MEDENT ([facility] ADEOLA hassan) Outpatient Attender: Tracey WOODSLEOPOLDO-SJPDianeLEOPOLDO 01/29/2020 12:00:[address] [facility] Outpatient Attender: Bill Escalante 01/27 10:30:00 AM EST MEDENT ([facility] ) Raziaamador Hussein, SEM MANAGER: [address], [place] [address], Ph. Attender: Razia Hussein [facility] - [facility] Office 01/26/2020 12:00:00 AM EST ATHE NA ([facility]) Razia Hussein, SEM MANAGER: [address], [place] [address], Ph. Attender: Razia Hussein [facility] - [facility] 01/26/2020 12:00:00 AM EST ATHE NA ([facility]) Razia Hussein, SEM MANAGER: [address], [facility] [place] [address], Ph. Attender: Razia Hussein [facility] - [facility] Office 01/26/2020 12:00:00 AM EST ATHE NA ([facility]) Outpatient Attender: Audra Gomes MDAdmitter: Audra us MD [id number] 01/21/2020 08:39:00 AM EST - 01/23/2020 03:40:[address] [facility] Patient discharged. Outpatient Referrer: Shayy VALVERDE.LEOPOLDO-[email or web address] 12/20 12:00:00 AM EST - 01/07/2020 12:39:[address] [facility] Outpatient Attender: Robert Dela Cruz PAConsultant: Bill fisher MD 01/05/2020 11:25:00 AM EST - 01/05/2020 11:25:00 AM EST [facility] Outpatient Attender: Shayy WOODSLEOPOLDO-SJP.LEOPOLDO 12/20 12:00:00 AM EST - 12/30/2019 02:49:[address] [facility] Outpatient Attender: JOHN PHILLIPS MD Main Office 12/29/2019 10:00:00 AM EST MEDENT ([facility] Razia Hussein, SEM MANAGER: [address], [place] [address], Ph. Attender: Razia Hussein [facility] 12/15/2019 12:00:00 AM EDT ATHE NA ([facility]) Raziaaguilar Rondon Sarahysoo, SEM MANAGER: [address], [address], [place] [address], Ph. Attender: Razia Hussein [facility] 12/15/2019 12:00:00 AM EDT ATHE NA ([facility]) Raziaamador Rondon Jovita, SEM MANAGER: [address], [place] [address], Ph. Attender: Razia Hussein [facility] 12/15/2019 12:00:00 AM EDT ATHE NA ([facility]) Raziaamador Rondon Jovita, SEM MANAGER: [address], [place] [address], Ph. Attender: Razia Hussein [facility] 12/15/2019 12:00:00 AM EDT ATHE NA ([facility]) Outpatient Attender: MARLENE Cee 11:00:00 AM EDT MEDENT ([facility] ) Outpatient Attender: Ragini GARCIA [facility] 11/20/2019 09:15:00 AM EDT MEDENT ([facility]) Razia Valenzuelaratnasoo, SEM MANAGER: [address], [place] [address], Ph. Attender: Razia Hussein [facility] 11/07/2019 12:00:00 AM EDT ATHAmador NA ([facility]) Razia Husesin, SEM MANAGER: [address], [place] [address], Ph. Attender: Razia Hussein [facility] 11/07/2019 12:00:00 AM EDT ATHAmador NA ([facility]) Razia Hussein, SEM MANAGER: [address], [place] [address], Ph. Attender: Razia Hussein [facility] 11/07/2019 12:00:00 AM EDT ATHAmador NA ([facility]) Razia Hussein, SEM MANAGER: [address], [place] [address], Ph. Attender: Razia Hussein [facility] 11/07/2019 12:00:00 AM EDT ATHAmador NA ([facility]) Razia Hussein, SEM MANAGER: [address], [place] [address], Ph. Attender: Razia Hussein [facility] 11/07/2019 12:00:00 AM EDT ATHAmador NA ([facility]) Immunizations Vaccine Date Status Description Data Source(s) COVID-19 VACCINE Let[employer] 04/17/2020 12:00:00 AM EST completed [facility] Vaccine Series Complete: YESThis Data wa s Submitted to [facility] Via [employer]. COVID-19 VACCINE Pfizer 03/27/2020 12:00:00 AM EST completed [facility] Vaccine Series Complete: NOThis Data was Submitted to [facility] Via [employer]. Pneumococcal conjugate PCV 13 11/24/2019 09:57:00 AM EDT completed MEDENT ([facility]) This CVX code allows reporting of a vacc ination when formulation is unknown (for example, when recording a Influenza vaccination when noted on a vaccination card) 11/24/2019 09:56:00 AM EDT completed MEDEN T ([facility]) Medications Medication Brand Name Start Date Product Form Dose Route Admi nistrative Instructions Pharmacy Instructions Status Indications Reaction Description Data Source(s) Cephalexin 500 MG Oral Tablet Cephalexin 11/08/2020 12:00:00 AM EDT ORAL active MEDENT ([facility]) onabotulinumtoxinA 100 UNT/ML Injectable Solution [Bot ox] Botox 100 UNIT Botox 100 UNIT 11/01/2020 12:00:00 AM EDT active Botox 100 UNIT eCW1 ([facility]) onabotulinumtoxinA 100 UNT/ML Injectable Solution [Bot ox] Botox 100 UNIT Botox 100 UNIT 11/01/2020 12:00:00 AM EDT active Botox 100 UNIT eCW1 ([facility]) onabotulinumtoxinA 100 UNT/ML Injectable Solution [Bot ox] Botox 100 UNIT Botox 100 UNIT 11/01/2020 12:00:00 AM EDT active Botox 100 UNIT eCW1 ([facility]) Ciprofloxacin 500 MG Oral Tablet Ciprofloxacin HCL 10/21/2020 12:00 :00 AM EDT ORAL completed MEDENT ([facility]) gabapentin 400 MG Oral Capsule Gabapentin 10/15/2020 12:00:00 AM EDT active Gabapentin MEDENT ([facility]) Xray Right Foot 08/31/2020 12:00:00 AM EDT co mpleted MEDENT ([facility]) onabotulinumtoxinA 100 UNT/ML Injectable Solution [Bot ox] Botox 100 UNIT Botox 100 UNIT 07/08/2020 12:00:00 AM EDT active Botox 100 UNIT eCW1 ([facility]) onabotulinumtoxinA 100 UNT/ML Injectable Solution [Bot ox] Botox 100 UNIT Botox 100 UNIT 07/08/2020 12:00:00 AM EDT active Botox 100 UNIT eCW1 ([facility]) onabotulinumtoxinA 100 UNT/ML Injectable Solution [Bot ox] Botox 100 UNIT Botox 100 UNIT 07/08/2020 12:00:00 AM EDT suspended Botox 100 UNIT eCW1 ([facility]) onabotulinumtoxinA 100 UNT/ML Injectable Solution [Bot ox] Botox 100 UNIT Botox 100 UNIT 07/08/2020 12:00:00 AM EDT active Botox 100 UNIT eCW1 ([facility]) onabotulinumtoxinA 100 UNT/ML Injectable Solution [Bot ox] Botox 100 UNIT Botox 100 UNIT 07/08/2020 12:00:00 AM EDT active Botox 100 UNIT eCW1 ([facility]) onabotulinumtoxinA 100 UNT/ML Injectable Solution [Bot ox] Botox 100 UNIT Botox 100 UNIT 07/08/2020 12:00:00 AM EDT active Botox 100 UNIT eCW1 ([facility]) onabotulinumtoxinA 100 UNT/ML Injectable Solution [Bot ox] Botox 100 UNIT Botox 100 UNIT 07/08/2020 12:00:00 AM EDT suspended Botox 100 UNIT eCW1 ([facility]) onabotulinumtoxinA 100 UNT/ML Injectable Solution [Bot ox] Botox 100 UNIT Botox 100 UNIT 07/08/2020 12:00:00 AM EDT active eCW1 ([facility]) onabotulinumtoxinA 100 UNT/ML Injectable Solution [Bot ox] Botox 100 UNIT Botox 100 UNIT 07/08/2020 12:00:00 AM EDT active Botox 100 UNIT eCW1 ([facility]) Lisinopril 20 MG Oral Tablet Lisinopril 07/02/2020 12:00:00 AM EDT ORAL active MEDENT ([facility]) Lisinopril 20 MG Oral Tablet lisinopril (PRINIVIL,ZEST RIL) 20 MG tablet lisinopril (PRINIVIL,ZESTRIL) 20 MG tablet 06/24/2020 12:00:00 AM EDT 20 mg Oral active Take 1 tablet (20 mg total) by mouth daily [facility] sodium chloride 0.9% (NS) infusion 2943-3312-50 06/22/2020 03:00:00 P M EDT Intravenous active at 100 mL/hr, Intravenous, Continuous, Starting on Sun06/22/20 at 1500, For 4 hours, Post-op [facility] Medication administered onsite normal saline flush 0.9 % injection 3 mL 33491-960-72 06/22/2020 03:00:00 PM EDT 3 mL Intravenous active 3 mL , Intravenous, PROTOCOL, First dose on Sun06/22/20 at 1500, Pre-op
flush per protocol, D/C Main IV fluid if appropriate
[facility] Medication administered onsite Nitroglycerin 0.4 MG Sublingual Tablet n itroglycerin (NITROSTAT) SL tablet 0.4 mg nitroglycerin (NITROSTAT) SL tablet 0.4 mg 06/22/2020 02:18:36 P M EDT 0.4 mg Sublingual active 0.4 mg, S ublingual, Every 5 min PRN, chest pain, Starting on Sun06/22/20 at 1418, Post-op
May administer every 5 minutes for 3 doses and call cardio lab MD.
[facility] Medication administered onsite 10 ML Atropine Sulfate 0.1 MG/ML Prefill ed Syringe atropine sulfate injection 0.5 mg atropine sulfate injection 0.5 mg 06/22/2020 02:18:35 PM EDT 0.5 mg active 0.5 mg, Intrave nous Push, Every 5 min PRN, other, As needed, for heart rate less than 60 BPM and the patient is hemodynamically unstable and/or SBP is less than 90mmHg, Starting on Sun06/22/20 at 1418, For 1 day, Post-op
Not to exceed a total of 3 mg or 0.04 mg/kg. Max of [address]
[facility] Medication administered onsite normal saline flush 0.9 % injection 3 mL [id number] 06/22/2020 02:00:00 PM EDT 3 mL Intravenous active 3 mL , Intravenous, Every 8 hours (scheduled), First dose on Sun06/22/20 at 1400, Pre-op
Rapid push positive pressure flushing shall be performed with a 10 cc normal saline syringe to check the PATENCY of a PIV site prior to any infusion therapy initiation unless resistance is met.
[facility] Medication administered onsite normal saline flush 0.9 % injection 3 mL 12272-753-50 06/22/2020 02:00:00 PM EDT 3 mL Intravenous active 3 mL , Intravenous, Every 8 hours (scheduled), First dose on Sun06/22/20 at 1400, Pre-op
Rapid push positive pressure flushing shall be performed with a 10 cc normal saline syringe to check the PATENCY of a PIV site prior to any infusion therapy initiation unless resistance is met.
[facility] Medication administered onsite clopidogrel 75 MG Oral Tablet clopidogrel (PLAVIX) tab let clopidogrel (PLAVIX) tablet 06/22/2020 01:43:32 PM EDT active As needed, Starting on Sun06/22/20 at 1343, Intra-Procedure [facility] Medication administered onsite iopamidol (ISOVUE-370) 76 % [id number] 06/22/2020 01:39:07 PM EDT active As needed, Starting on Sun06/22/20 at 1339, Intra-Proce [facility] Medication administered onsite 1 ML heparin sodium, porcine 1000 UNT/ML Injection hep nataliya (porcine) injection heparin (porcine) injection 06/22/2020 01:24:36 PM EDT active As needed, Starting on Sun06/22/20 at 1324, Intra-Procedure [facility] Medication administered onsite lidocaine 1 % injection 4751-1149-58 06/22/2020 01:19:50 PM EDT active As needed, Starting on Sun 1 at 1319, Intra-Procedure [facility] Medication administered onsite fentaNYL Citrate (PF) (SUBLIMAZE) injection 7873-9108-62 06/22/2020 01:12:36 PM EDT active As neede d, Starting on Sun06/22/20 at 1312, Intra-Procedure [facility] Medication administered onsite 2 ML Midazolam 1 MG/ML Injection midazolam (VERSED) in jection midazolam (VERSED) injection 06/22/2020 01:12:17 PM EDT active As needed, Starting on Sun06/22/20 at 1312, Intra-Procedure [facility] Medication administered onsite Aspirin 325 MG Oral Tablet aspirin tablet 325 mg aspirin tab let 325 mg 06/22/2020 01:00:00 PM EDT 325 mg Oral completed 325 mg, Oral, Once, On Sun06/22/20 at 1300, For 1 dose, Pre-op
Give if scheduled for cardiac or peripheral angioplasty/stent or carotid stenting. Administer AM dose prior to procedure if NOT taken at home. Max of 1 dose per day.
[facility] Medication administered onsite sodium chloride 0.9% (NS) infusion 4401-9478-38 06/22/2020 01:00:00 PM EDT 100 mL/h Intravenous active at 100 m L/hr, 100 mL/hr, Intravenous, Continuous, Starting on Sun06/22/20 at 1300, Pre-op
Start two hours prior to scheduled start time
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 Medication administered onsite clopidogrel 75 MG Oral Tablet clopidogrel (PLAVIX) 75 MG tablet clopidogrel (PLAVIX) 75 MG tablet 06/22/2020 12:00:00 AM EDT 75 mg Oral active Take 1 tablet (75 mg total) by mouth daily [facility] 24 HR Isosorbide Mononitrate 30 MG Exten ded Release Oral Tablet isosorbide mononitrate (IMDUR) 30 MG 24 hr tablet isosorbide mononitrate (IMDUR) 30 MG 24 hr tablet 06/16/2020 12:00:00 AM EDT active TAKE ONE TABLET BY MOUTH EVERY DAY [facility] Lisinopril 20 MG Oral Tablet lisinopril (PRINIVIL,ZEST RIL) 20 MG tablet lisinopril (PRINIVIL,ZESTRIL) 20 MG tablet 06/15/2020 12:00:00 AM EDT 20 mg Oral aborted Take 1 tablet (20 mg total) by mouth daily [facility] prednisolone acetate 10 MG/ML Ophthalmic Suspension prednisoLONE acetate (PRED FORTE) 1 % ophthalmic suspension prednisoLONE acetate (PRED FORTE) 1 % ophthalmic suspension 05/28/2020 12:00:00 AM EDT 1 [drp] active Administer 1 drop to both eyes as needed [facility] Fluticasone Propionate Fluticasone Propionate 05/26/2020 12:00:00 AM E DT active MEDENT ([facility] Isosorbide Dinitrate 30 MG Oral Tablet Isosorbide Dinitrate 05/26/2020 12:00:00 AM EDT ORAL active MEDENT ([facility] Bisoprolol Fumarate 10 MG Oral Tablet Bisoprolol Fumarate 12:00:00 AM EDT ORAL active MEDENT ([facility] clopidogrel 75 MG Oral Tablet clopidogrel (PLAVIX) 75 MG tablet clopidogrel (PLAVIX) 75 MG tablet 05/19/2020 12:00:00 AM EDT 75 mg Oral aborted Take 1 tablet (75 mg total) by mouth daily [facility] atorvastatin 80 MG Oral Tablet atorvastatin (LIPITOR) 80 MG tablet atorvastatin (LIPITOR) 80 MG tablet 04/28/2020 12:00:00 AM EST 80 mg Oral active Take 1 tablet (80 mg total) by mouth daily [facility] Bisoprolol Fumarate 10 MG Oral Tablet bisoprolol (ZEBE TA) 10 MG tablet bisoprolol (ZEBETA) 10 MG tablet 04/28/2020 12:00:00 AM EST active TAKE ONE TABLET BY MOUTH EVERY DAY [facility] gabapentin 400 MG Oral Capsule Gabapentin 400 MG Oral Capsule Gabapentin 400 MG Oral Capsule 04/27/2020 12:00:00 AM EST 1 activ e gabapentin 400 MG Oral Capsule JERI (Pancho Larsen MD [facility]) 24 HR Isosorbide Mononitrate 30 MG Exten ded Release Oral Tablet Isosorbide Mononitrate ER 30 MG Oral Tablet Extended Release 24 Hour Isosorbide Mononitrate ER 30 MG Oral Tablet Extended Release 24 Hour 04/27/2020 12:00:00 AM EST 1 active 24 HR isosorbide mononitr ate 30 MG Extended Release Oral Tablet JERI (Pancho Larsen MD [facility]) Bisoprolol Fumarate 10 MG Oral Tablet Bisoprolol Fumarate 10 MG Oral Tablet 04/27/2020 12:00:00 AM EST 1 active bisoprolol fumarate 10 MG Oral Tablet JERI (Pancho Larsen MD [facility]) prednisolone acetate 10 MG/ML Ophthalmic Suspension prednisoLONE Acetate 1% Ophthalmic Suspension prednisoLONE Acetate 1% Ophthalmic Suspension 04/28/19 12:00:00 AM EST active prednisolone acetate 10 MG/ML Ophthalmic Suspension JERI (Pancho Larsen MD [facility]) Lisinopril 10 MG Oral Tablet Lisinopril 10 MG Oral Tablet 12:00:00 AM EST 1 active lisinopril 10 MG Oral Tablet JERI (Pancho Larsen MD [facility]) atorvastatin 80 MG Oral Tablet [Lipitor] Lipitor 80 MG Oral Tablet Lipitor 80 MG Oral Tablet 04/27/2020 12:00:00 AM EST 1 activ e atorvastatin 80 MG Oral Tablet [Lipitor] JERI (Pancho Larsen MD [facility]) Trazodone Hydrochloride 100 MG Oral Tablet traZODone H Cl 100 MG Oral Tablet traZODone HCl 100 MG Oral Tablet 04/27/2020 12:00:00 AM EST 1 active trazodone hydrochloride 100 MG Oral Tablet JERI (Vashti Larsen MD [facility]) gabapentin 600 MG Oral Tablet Gabapentin 600 MG Oral T ablet Gabapentin 600 MG Oral Tablet 04/27/2020 12:00:00 AM EST 1 active gabapentin 600 MG Oral Tablet JERI (Pancho Larsen MD [facility]) 75 mg 04/20/2020 12:00:00 AM EST tablet 30 TAKE ONE TABLET BY MOUTH EVERY DAY TAKE ONE TABLET BY MOUTH EVERY DAY SOLD: 04/20/2020 [facility] Covid-19 vaccine, Unspecified 04/17/2020 12:00:00 AM EST completed [facility] ([facility]) Medication administered onsite Covid-19 vaccine, Unspecified 03/27/2020 12:00:00 AM EST completed MEDENT ([facility]) Medication administered onsite Lisinopril 10 MG Oral Tablet lisinopril (PRINIVIL,ZEST RIL) 10 MG tablet lisinopril (PRINIVIL,ZESTRIL) 10 MG tablet 03/11/2020 12:00:00 AM EST 10 mg Oral active Take 1 tablet (10 mg total) by mouth daily [facility] 120 ACTUAT Fluticasone propionate 0.23 M G/ACTUAT / salmeterol 0.021 MG/ACTUAT Metered Dose Inhaler [Advair] ADVAIR HFA 230-21 MCG/ACT inhaler ADVAIR HFA 230- 21 MCG/ACT inhaler 03/06/2020 12:00:00 AM EST 2 {puff} Inhalation active Inhale 2 puffs 2 (two) times a day [facility] NITROFURANTOIN, MACROCRYSTALS 25 MG / Ni trofurantoin, Monohydrate 75 MG Oral Capsule Nitrofurantoin Monohyd Macro 03/05/2020 12:00:00 AM EST active MEDENT ([facility]) 24 HR Isosorbide Mononitrate 30 MG Extended Release Or al Tablet ISOSORBIDE MONONITRATE 02/20/2020 12:00:00 AM EST tablet extended release 24 hr 30 TAKE ONE TABLET BY MOUTH EVERY DAY TAKE ONE TABLET BY MOUTH EVERY DAY SOLD: 02/20/2020 [facility] gabapentin 600 MG Oral Tablet Gabapentin 02/16/2020 12:00:00 AM EST active MEDENT ([facility] gabapentin 400 MG Oral Capsule Gabapentin 01/30/2020 12:00:00 AM EST active MEDENT ([facility]) Bisoprolol Fumarate 10 MG Oral Tablet bisoprolol (ZEBE TA) 10 MG tablet bisoprolol (ZEBETA) 10 MG tablet 01/29/2020 12:00:00 AM EST 10 mg Oral active Take 1 tablet (10 mg total) by m outh daily [facility] atorvastatin 80 MG Oral Tablet atorvastatin (LIPITOR) 80 MG tablet atorvastatin (LIPITOR) 80 MG tablet 01/29/2020 12:00:00 AM EST 80 mg Oral active Take 1 tablet (80 mg total) by mouth daily [facility] 24 HR Isosorbide Mononitrate 30 MG Exten ded Release Oral Tablet isosorbide mononitrate (IMDUR) 30 MG 24 hr tablet isosorbide mononitrate (IMDUR) 30 MG 24 hr tablet 01/24/2020 12:00:00 AM EST 30 mg Oral active Take 1 tablet (30 mg total) by mouth daily [facility] Bisoprolol Fumarate 5 MG Oral Tablet bisoprolol (ZEBET A) 5 MG tablet bisoprolol (ZEBETA) 5 MG tablet 01/24/2020 12:00:00 AM EST 5 mg Oral aborted Take 1 tablet (5 mg total) by mouth daily [facility] Lisinopril 5 MG Oral Tablet lisinopril (PRINIVIL,ZESTR IL) 5 MG tablet lisinopril (PRINIVIL,ZESTRIL) 5 MG tablet 01/23/2020 12:00:00 AM EST 5 mg O ral aborted Take 1 tablet (5 mg total) by mo uth daily [facility] clopidogrel 75 MG Oral Tablet clopidogrel (PLAVIX) 75 MG tablet clopidogrel (PLAVIX) 75 MG tablet 01/23/2020 12:00:00 AM EST 75 mg Oral completed Take 1 tablet (75 mg total) by mouth daily [facility] iopamidol (ISOVUE-370) 76 % 70 mL [id number] 01/22/2020 09:48:[address] 70 mL Intravenous completed 70 mL, Intrav enous, Once in imaging, contrast, Starting Nivia 01/22/20 at 2148, For [address] [facility] Medication administered onsite 24 HR Isosorbide Mononitrate 30 MG Exten ded Release Oral Tablet isosorbide mononitrate (IMDUR) 24 hr tablet 30 mg isosorbide mononitrate (IMDUR) 24 hr tablet 30 mg 01/22/2020 02:00:00 PM EST 30 mg Oral activ e 30 mg, Oral, Daily, First dose on Nivia 01/22/20 at 1400
Hold for SBP <100
[facility] Medication administered onsite Bisoprolol Fumarate 5 MG Oral Tablet bisoprolol (ZEBET A) tablet 5 mg bisoprolol (ZEBETA) tablet 5 mg 01/22/2020 02:00:00 PM EST 5 mg Oral active 5 mg, Oral, Daily, First dose on Sun01/22/[address] [facility] Medication administered onsite Aspirin 81 MG Delayed Release Oral Tablet aspirin EC t ablet 81 mg aspirin EC tablet 81 mg 01/22/2020 09:00:00 AM EST 81 mg Oral activ e 81 mg, Oral, Daily, First dose on Sun01/22/[address] [facility] Medication administered onsite gabapentin 800 MG Oral Tablet gabapentin (NEURONTIN) t ablet 400 mg gabapentin (NEURONTIN) tablet 400 mg 01/22/2020 09:00:00 AM EST 400 mg Oral active 400 mg, Oral, Daily, First dose on Sun01/22/[address] [facility] Medication administered onsite Famotidine (PEPCID) injection 20 mg [id number] 01/21/2020 11:00:0 0 PM EST 20 mg Intravenous completed 20 mg, I ntravenous, Once, Sun01/21/20 at 2300, For 1 dose
Refrigerated only product. Located in med refrigerator on unit. Dilute with sodium chloride 0.9% to equal 10 ml. Administration Rate = 20mg/[address]
[facility] Medication administered onsite Baclofen 10 MG Oral Tablet baclofen (LIORESAL) tablet 10 mg baclofen (LIORESAL) tablet 10 mg 01/21/2020 09:00:00 PM EST 10 mg Oral activ e 10 mg, Oral, 2 times daily, First dose on Sun01/21/[address] [facility] Medication administered onsite Cyclosporine 0.5 MG/ML Ophthalmic Suspen jag cycloSPORINE (RESTASIS) 0.05 % ophthalmic emulsion 1 drop cycloSPORINE (RESTASIS) 0.05 % ophthalmi c emulsion 1 drop 01/21/2020 09:00:00 PM EST 1 [drp] active 1 drop, Both Eyes, 2 times daily, First dose on Sun01/21/20 at 2100
For administration and preparation considerations, refer to Hazardous Drugs in the Workplace Policy on Intranet.
[facility] Medication administered onsite fluticasone (FLONASE) 50 MCG/ACT nasal spray 1 spray [id number] 01/21/2020 09:00:00 PM EST 1 {spray} active 1 spray, Each Nare, 2 times daily, First dose on Sun01/21/[address] [facility] Medication administered onsite lidocaine (ASPERCREME) 4 % 2 patch [id number] 01/21/2020 09:00:00 PM EST 2 {patch} Transdermal active 2 patch, [place] sdermal, Administer over 12 Hours, Every 24 hours (relative), First dose on Sun01/21/[address] [facility] Medication administered onsite Nortriptyline 25 MG Oral Capsule nortriptyline (PAMELO R) capsule 25 mg nortriptyline (PAMELOR) capsule 25 mg 01/21/2020 09:00:00 PM EST 25 m g Oral active 25 mg, Oral, Nightly, First dose on Sun01/21/[address] [facility] Medication administered onsite montelukast 10 MG Oral Tablet montelukast (SINGULAIR) tablet 10 mg montelukast (SINGULAIR) tablet 10 mg 01/21/2020 09:00:00 PM EST 10 mg Oral active 10 mg, Oral, Nightly, First dose on Sun01/21/[address] [facility] Medication administered onsite pantoprazole 40 MG Delayed Release Oral Tablet pantoprazole (PROTONIX) EC tablet 40 mg pantoprazole (PROTONIX) EC tablet 40 mg 01/21/2020 09:00:[address] 40 mg Oral active Gastroesophageal Reflux Diseas e 40 mg, Oral, 2 times daily, Indications: Gastroesophageal Reflux Disease, First dose on Sun01/21/[address] [facility] Gastroesophageal Reflux Disease Medication administered onsite Sucralfate 1000 MG Oral Tablet sucralfate (CARAFATE) t ablet 1 g sucralfate (CARAFATE) tablet 1 g 01/21/2020 09:00:00 PM EST 1 g Oral active 1 g, Oral, 2 times daily, First dose on Sun01/21/20 at 2100
If patient is unable to swallow the tablet, Nursing should dissolve tablet in 10-15 ml of water prior to administration. Sucralfate should NOT be administered via feeding tubes.
[facility] Medication administered onsite traZODone (DESYREL) tablet 150 mg 01/21/2020 09:00:00 PM EST 150 mg Oral active 150 mg, Oral, Nightly, First dose on Sun01/21/[address] [facility] Medication administered onsite topiramate 100 MG Oral Tablet topiramate (TOPAMAX) tab let 100 mg topiramate (TOPAMAX) tablet 100 mg 01/21/2020 09:00:00 PM EST 100 mg Oral active 100 mg, Oral, 2 times daily, First dose on Sun01/21/20 at 2100
For administration and preparation considerations, refer to Hazardous Drugs in the Workplace Policy on Intranet.
[facility] Medication administered onsite gabapentin 300 MG Oral Capsule gabapentin (NEURONTIN) capsule 600 mg gabapentin (NEURONTIN) capsule 600 mg 01/21/2020 09:00:00 PM EST 600 mg Oral active 600 mg, Oral, Nightly, First dose on Sun01/21/[address] [facility] Medication administered onsite carvedilol 25 MG Oral Tablet carvedilol (COREG) tablet 25 mg carvedilol (COREG) tablet 25 mg 01/21/2020 06:00:00 PM EST 25 mg Oral abort ed 25 mg, Oral, 2 times daily with meals, First dose on Sun01/21/[address] [facility] Medication administered onsite Sertraline 50 MG Oral Tablet sertraline (ZOLOFT) table t 50 mg sertraline (ZOLOFT) tablet 50 mg 01/21/2020 06:00:00 PM EST 50 mg Oral active 50 mg, Oral, Daily, First dose on Sun01/21/[address] [facility] Medication administered onsite Ipratropium [place]ou[place] 0.2 MG/ML Inhalant S olution ipratropium (ATROVENT) 0.02 % nebulizer solution 0.5 mg ipratropium (ATROVENT) 0.02 % nebulizer solution 0.5 mg 01/21/2020 04:00:00 PM EST 0.5 mg active 0.5 mg, Nebulization, 4 times daily, First dose on Sun01/21/[address] [facility] Medication administered onsite atorvastatin 40 MG Oral Tablet atorvastatin (LIPITOR) tablet 40 mg atorvastatin (LIPITOR) tablet 40 mg 01/21/2020 02:00:00 PM EST 40 mg Oral active 40 mg, Oral, Daily, First dose on Sun01/21/[address] [facility] Medication administered onsite clopidogrel 75 MG Oral Tablet clopidogrel (PLAVIX) tab let 75 mg clopidogrel (PLAVIX) tablet 75 mg 01/21/2020 02:00:00 PM EST 75 mg Oral active 75 mg, Oral, Daily, First dose on Sun01/21/[address] [facility] Medication administered onsite 60 ACTUAT formoterol fumarate 0.005 MG/A CTUAT / mometasone furoate 0.2 MG/ACTUAT Metered Dose Inhaler mometasone-formoterol (DULERA) 200-5 MCG/ACT inhaler 2 puff mometasone-formoterol (DULERA) 200-5 MCG/ACT inhaler 2 puff 01/21/2020 02:00:00 PM EST 2 {puff} Inhalation active 2 puff, Inhalation, 2 times daily, First dose on Sun01/21/[address] [facility] Medication administered onsite Nitroglycerin 0.4 MG Sublingual Tablet n itroglycerin (NITROSTAT) SL tablet 0.4 mg nitroglycerin (NITROSTAT) SL tablet 0.4 mg 01/21/2020 01:13:58 P M EST 0.4 mg Sublingual active 0.4 mg, S ublingual, Every 5 min PRN, chest pain, Starting Sun01/21/20 at 1313, Post-op
May administer every 5 minutes for 3 doses and call cardio lab MD.
[facility] Medication administered onsite Acetaminophen 325 MG Oral Tablet acetaminophen (TYLENO L) 325 MG tablet 650 mg acetaminophen (TYLENOL) 325 MG tablet 650 mg 01/21/2020 01:13:58 PM EST 650 mg Oral active 650 mg, Or al, Every 4 hours PRN, headaches, and non cardiac pain, Starting Sun01/21/20 at 1313, Post-op
"Maximum dose of acetaminophen is 4,000 mg from all sources in 24 hours."
[facility] Medication administered onsite Acetaminophen 325 MG / Oxycodone Hydroch loride 5 MG Oral Tablet oxyCODONE- acetaminophen (PERCOCET) 5-325 MG 1 tablet oxyCODONE-acetaminophen (PERCOCET) 5- 325 MG 1 tablet 01/21/2020 12:58:31 PM EST 1 {tbl} Oral a ctive 1 tablet, Oral, Every 8 hours PRN, moderate pain (4-6), Starting Sun01/21/20 at 1258, For [address] [facility] Medication administered onsite Albuterol 0.83 MG/ML Inhalant Solution a lbuterol (PROVENTIL) nebulizer solution 2.5 mg albuterol (PROVENTIL) nebulizer solution 2.5 mg 2019 12:57:10 PM EST 2.5 mg active 2.5 mg, Nebulization, RT every 4 hours as needed, shortness of breath, Starting Sun01/21/[address] [facility] Medication administered onsite sodium chloride 0.9% (NS) infusion [id number] 01/21/2020 10:00:00 AM EST 100 mL/h Intravenous active at 100 m L/hr, 100 mL/hr, Intravenous, Continuous, Starting Sun01/21/20 at 1000, Pre-op
Start two hours prior to scheduled start time
[facility] Medication administered onsite Aspirin 325 MG Oral Tablet aspirin tablet 325 mg aspirin tab let 325 mg 01/21/2020 10:00:00 AM EST 325 mg Oral completed 325 mg, Oral, Once, Sun01/21/20 at 1000, For 1 dose, Pre-op
Give if scheduled for cardiac or peripheral angioplasty/stent or carotid stenting. Administer AM dose prior to procedure if NOT taken at home. Max of 1 dose per day.
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 Medication administered onsite Trazodone Hydrochloride 100 MG Oral Tablet traZODone ( DESYREL) 100 MG tablet traZODone (DESYREL) 100 MG tablet 01/08/2020 12:00:00 AM EST 100 mg active 100 mg nightly [facility] clopidogrel 75 MG Oral Tablet clopidogrel (PLAVIX) 75 MG tablet clopidogrel (PLAVIX) 75 MG tablet 12/30/2019 12:00:00 AM EST 75 mg Oral aborted Take 1 tablet (75 mg total) by mouth daily [facility] 120 ACTUAT Fluticasone propionate 0.23 M G/ACTUAT / salmeterol 0.021 MG/ACTUAT Metered Dose Inhaler [Advair] ADVAIR HFA 230-21 MCG/ACT inhaler ADVAIR HFA 230- 21 MCG/ACT inhaler 12/09/2019 12:00:00 AM EDT 1 {inhaler} Oral aborted Take 1 Inhaler by mouth 2 (two) times a day [facility] gabapentin 600 MG Oral Tablet gabapentin (NEURONTIN) 6 00 MG tablet gabapentin (NEURONTIN) 600 MG tablet 11/11/2019 12:00:[address] [facility] Nystatin [id number] UNT/ML Topical Cream Nystatin 11/04/2019 12:00:00 AM EDT active [facility] ([facility]) montelukast 10 MG Oral Tablet MONTELUKAST SODIUM 10/15/2019 12:0 0:00 AM EDT tablet 90 TAKE ONE TABLET BY MOUTH EVERY D AY TAKE ONE TABLET BY MOUTH EVERY DAY SOLD: 08/19/2020 [facility] montelukast 10 MG Oral Tablet MONTELUKAST SODIUM 10/15/2019 12:0 0:00 AM EDT tablet 90 TAKE ONE TABLET BY MOUTH EVERY D AY TAKE ONE TABLET BY MOUTH EVERY DAY SOLD: 02/02/2020 [facility] montelukast 10 MG Oral Tablet MONTELUKAST SODIUM 10/15/2019 12:0 0:00 AM EDT tablet 90 TAKE ONE TABLET BY MOUTH EVERY D AY TAKE ONE TABLET BY MOUTH EVERY DAY SOLD: 10/21/2019 [facility] montelukast 10 MG Oral Tablet MONTELUKAST SODIUM 10/15/2019 12:0 0:00 AM EDT tablet 90 TAKE ONE TABLET BY MOUTH EVERY D AY TAKE ONE TABLET BY MOUTH EVERY DAY SOLD: 05/20/2020 [facility] Magnesium Hydroxide 80 MG/ML Oral Suspen jag magnesium hydroxide (MILK OF MAGNESIA) 400 MG/5ML suspension 45 mL magnesium hydroxide (MILK OF MAGNESIA) 4 00 MG/5ML suspension 45 mL 09/15/2019 10:00:00 PM EDT 45 mL Oral active 45 mL, Oral, Nightly, First dose on Sun09/15/19 at 2200, For 30 days
If serum creatinine > 2 notify provider before administering.
[facility] Medication administered onsite sennosides, SNF 8.6 MG Oral Tablet senna tablet 2 tablet sen na tablet 2 tablet 09/15/2019 11:07:07 AM EDT 2 {tbl} Oral active 2 tablet, Oral, Nightly PRN, Constipation, Starting Sun09/15/19 at 1107, For 30 days [facility] Medication administered onsite sennosides, SNF 35.2 MG/ML Oral Solution senna (SENOKO T) syrup 10 mL senna (SENOKOT) syrup 10 mL 09/15/2019 11:07:07 AM EDT 10 mL Oral active 10 mL, Oral, Nightly PRN, Constipation, Starting Sun09/15/19 at 1107, For 30 days [facility] Medication administered onsite Acetaminophen 325 MG Oral Tablet acetaminophen (TYLENO L) tablet 650 mg acetaminophen (TYLENOL) tablet 650 mg 09/15/2019 11:07:06 AM EDT 65 0 mg Oral active 650 mg, Oral, E very 6 hours PRN, Mild Pain (Pain Scale Score 1- 3), Headaches, Fever, Starting Sun09/15/19 at 1107, For 30 days
Maximum daily dose of acetaminophen is 3,000 mg from all sources in 24 hours.
[facility] Medication administered onsite Bisacodyl 10 MG Rectal Suppository bisacodyl (DULCOLAX ) suppository 10 mg bisacodyl (DULCOLAX) suppository 10 mg 09/15/2019 11:07:06 AM EDT 10 mg Rectal active 10 mg, Rectal, Every 72 hours PRN, Constipation, Starting 09/15/19 at 1107, For 30 days
Hold if patient has had BM within the past 2 days.
[facility] Medication administered onsite carvedilol 25 MG Oral Tablet carvedilol (COREG) 25 MG tablet carvedilol (COREG) 25 MG tablet 08/11/2019 12:00:00 AM EDT 25 mg Oral abort ed Take 1 tablet (25 mg total) by mouth 2 (two) times a day with meals [facility] atorvastatin 40 MG Oral Tablet [Lipitor] Lipitor 40 MG Oral Tablet Lipitor 40 MG Oral Tablet 04/25/2019 12:00:00 AM EST 1 abort ed atorvastatin 40 MG Oral Tablet [Lipitor] JERI (Pancho Larsen MD [facility]) carvedilol 25 MG Oral Tablet Carvedilol 25 MG Oral Tab let Carvedilol 25 MG Oral Tablet 04/25/2019 12:00:00 AM EST 1 aborted carvedilol 25 MG Oral Tablet JERI (Pancho Larsen MD [facility]) fluticasone (FLONASE) 50 MCG/ACT nasal spray [id number] 02/22/2019 12:00:00 AM EST aborted [facility] Lisinopril 2.5 MG Oral Tablet Lisinopril 2.5MG Oral Ta blet Lisinopril 2.5MG Oral Tablet 04/16/2018 12:00:00 AM EST 1 aborted lisinopril 2.5 MG Oral Tablet JERI (Pancho Larsen MD [facility]) loteprednol etabonate 0.005 MG/MG Ophtha lmic Ointment [Lotemax] Lotemax 0.5% Ophthalmic Ointment Lotemax 0.5% Ophthalmic Ointment 02/08/2018 12:00:00 AM EST aborted loteprednol etab karlie 0.005 MG/MG Ophthalmic Ointment [Lotemax] JERI (Pancho Larsen MD [facility]) Lisinopril 2.5 MG Oral Tablet lisinopril (PRINIVIL,ZES TRIL) 2.5 MG tablet lisinopril (PRINIVIL,ZESTRIL) 2.5 MG tablet 05/17/2016 12:00:00 AM EDT 2.5 mg Oral aborted Take 2.[address] [facility] atorvastatin 40 MG Oral Tablet atorvastatin (LIPITOR) 40 MG tablet atorvastatin (LIPITOR) 40 MG tablet 03/17/2016 12:00:00 AM EST aborted LIPITOR [address] [facility] Melatonin 10 MG Oral Tablet Melatonin 10 MG TABS Melatonin 1 0 MG TABS 03/17/2016 12:00:00 AM EST 10 mg Oral aborted Take 1 [address] mouth [address] [facility] alcaftadine 2.5 MG/ML Ophthalmic Solutio n [Lastacaft] Lastacaft 0.25% Ophthalmic Solution Lastacaft 0.25% Ophthalmic Solution 01/20/2016 12:00:00 AM EST 1 aborted alcaftadine 2.5 MG/ML Oph thalmic Solution [Lastacaft] JERI (Pancho Larsen MD [facility]) gabapentin 400 MG Oral Capsule Gabapentin 400 MG Capsu le Gabapentin 400 MG Capsule 11/03/2014 12:00:00 AM EDT 1 aborted gabapentin 400 MG Oral Capsule JERI (Pancho Larsen MD [facility]) Trazodone Hydrochloride 50 MG Oral Tablet traZODone HC l 50 MG OR TABS traZODone HCl 50 MG OR TABS 01/12/2014 12:00:00 AM EST 3 aborted trazodone hydrochloride 50 MG Oral Tablet JERI (Pancho Larsen MD [facility]) tramadol hydrochloride 50 MG Oral Tablet tramadol 50 mg tablet Take 3 tablets every day by oral route at bedtime. tramadol 50 mg tablet Take 3 tablets coral ry day by oral route at bedtime. 3 complete d tramadol hydrochloride [address] ([facility]) Lisinopril 2.5 MG Oral Tablet lisinopril 2.5 mg tablet lisin opril 2.5 mg tablet completed lisinopril 2.[address] ([facility]) Bisoprolol Fumarate 5 MG Oral Tablet bis oprolol fumarate 5 mg tablet Take 1 tablet every day by oral route. bisoprolol fumarate 5 mg tablet Take 1 t ablet every day by oral route. 1 completed bisoprolol fumarate [address] ([facility]) Diclofenac Sodium 0.01 MG/MG Topical Gel Diclofenac So dium 1 % GEL Diclofenac Sodium 1 % GEL aborted diclofena c 1 % topical gel [facility] Acetaminophen 325 MG / Hydrocodone Miranda trate 5 MG Oral Tablet hydrocodone 5 mg- acetaminophen 325 mg tablet hydrocodone 5 mg-acetaminophen 325 mg tablet completed acetaminophen 325 MG / hydrocodone bitartrate [address] ([facility]) atorvastatin 40 MG Oral Tablet atorvastatin 40 mg tabl et atorvastatin 40 mg tablet completed atorvastatin [address] ([facility]) Ondansetron 4 MG Oral Tablet ondansetron HCl 4 mg tabl et ondansetron HCl 4 mg tablet completed ondansetron 4 M G Oral Tablet COURT ([facility]) Oxycodone Hydrochloride 5 MG Oral Tablet oxycodone 5 m g tablet oxycodone 5 mg tablet completed oxycodone hydro chloride [address] ([facility]) Oxycodone Hydrochloride 5 MG Oral Tablet oxyCODONE (ROXICODONE) 5 MG immediate release tablet oxyCODONE (ROXICODONE) 5 MG immediate release tablet aborted oxycodone 5 mg tablet [facility] fluticasone propionate 50 mcg/actuation nasal spray,suspension [id number] completed fluticasone propionate 0.05 MG/ACTUAT Metered Dose Nasal [place] [address] ([facility]) Nystatin [id number] UNT/ML Topical Cream nystatin 100,000 unit/gram topical cream nystatin 100,000 unit/gram topical cream completed nystatin [id number] UNT/ML Topical Cream COURT ([facility]) Trazodone Hydrochloride 150 MG Oral Tablet traZODone ( DESYREL) 150 MG tablet traZODone (DESYREL) 150 MG tablet 150 mg Oral abor benitez Take 150 mg by mouth nightly [facility] atorvastatin 40 MG Oral Tablet atorvastatin 40 mg tabl et atorvastatin 40 mg tablet completed atorvastatin [address] ([facility]) Acetaminophen 325 MG / Hydrocodone Miranda trate 5 MG Oral Tablet hydrocodone 5 mg- acetaminophen 325 mg tablet hydrocodone 5 mg-acetaminophen 325 mg tablet completed acetaminophen 325 MG / hydrocodone bitartrate [address] ([facility]) Ondansetron 4 MG Oral Tablet ondansetron HCl 4 mg tabl et ondansetron HCl 4 mg tablet completed ondansetron 4 M G Oral Tablet COURT ([facility]) 24 HR Isosorbide Mononitrate 30 MG Exten ded Release Oral Tablet isosorbide mononitrate (IMDUR) 30 MG 24 hr tablet isosorbide mononitrate (IMDUR) 30 MG 24 hr tablet aborted isosor bide mononitrate ER 30 mg tablet,extended release 24 hr TAKE ONE TABLET BY MOUTH EVERY DAY [facility] NITROFURANTOIN, MACROCRYSTALS 25 MG / Ni trofurantoin, Monohydrate 75 MG Oral Capsule nitrofurantoin monohydrate/macrocrystals 100 mg capsule nitrofurantoin monohydrate/macrocrystals 100 mg capsule completed nitrofurantoin, macrocrystals 25 MG / nitrofurantoin, monohydrate [address] ([facility]) Lisinopril 5 MG Oral Tablet lisinopril 5 mg tablet lisinopril 5 mg ta blet completed lisinopril [address] ([facility]) Oxycodone Hydrochloride 5 MG Oral Tablet oxycodone 5 m g tablet oxycodone 5 mg tablet completed oxycodone hydro chloride [address] ([facility]) Trazodone Hydrochloride 50 MG Oral Tablet trazodone 50 mg tablet trazodone 50 mg tablet completed trazodone hydr ochloride [address] ([facility]) tramadol hydrochloride 50 MG Oral Tablet tramadol 50 mg tablet Take 3 tablets every day by oral route at bedtime. tramadol 50 mg tablet Take 3 tablets coral ry day by oral route at bedtime. 3 complete d tramadol hydrochloride [address] ([facility]) Trazodone Hydrochloride 50 MG Oral Tablet trazodone 50 mg tablet trazodone 50 mg tablet completed trazodone hydr ochloride [address] ([facility]) CALCIUM CARBONATE-VITAMIN D PO 1 {tbl} Oral aborted Take 1 tablet by mouth 2 (two) times a day [facility] Oxycodone Hydrochloride 5 MG Oral Tablet oxycodone 5 m g tablet oxycodone 5 mg tablet completed oxycodone hydro chloride [address] ([facility]) Isosorbide Dinitrate 30 MG Oral Tablet i sosorbide dinitrate 30 mg tablet Take 1 tablet twice a day by oral route. isosorbide dinitrate 30 mg tablet Take 1 tablet twice a day by oral route. 1 comp leted isosorbide dinitrate [address] ([facility]) Isosorbide Dinitrate 30 MG Oral Tablet i sosorbide dinitrate 30 mg tablet Take 1 tablet twice a day by oral route. isosorbide dinitrate 30 mg tablet Take 1 tablet twice a day by oral route. 1 comp leted isosorbide dinitrate [address] ([facility]) Ibuprofen 600 MG Oral Tablet ibuprofen 6 00 mg tablet Take 1 tablet twice a day by oral route for 10 days. ibuprofen 600 mg tablet Take 1 tablet tw ice a day by oral route for 10 days. 1 completed ibuprofen [address] ([facility]) Clonazepam 0.5 MG Oral Tablet clonazepam 0.5 mg tablet clona zepam 0.5 mg tablet completed clonazepam 0.[address] ([facility]) Nystatin [id number] UNT/ML Topical Cream nystatin 100,000 unit/gram topical cream nystatin 100,000 unit/gram topical cream completed nystatin [id number] UNT/ML Topical Cream COURT ([facility]) Bisoprolol Fumarate 5 MG Oral Tablet bis oprolol fumarate 5 mg tablet Take 1 tablet every day by oral route. bisoprolol fumarate 5 mg tablet Take 1 t ablet every day by oral route. 1 completed bisoprolol fumarate [address] ([facility]) fluticasone propionate 50 mcg/actuation nasal spray,suspension [id number] completed fluticasone propionate 0.05 MG/ACTUAT Metered Dose Nasal [place] [address] ([facility]) Lisinopril 10 MG Oral Tablet lisinopril 10 mg tablet lisinopril 10 mg tablet completed lisinopril [address] ([facility]) carvedilol 25 MG Oral Tablet carvedilol 25 mg tablet carvedilol 25 mg tablet completed carvedilol [address] ([facility]) 120 ACTUAT Fluticasone propionate 0.115 MG/ACTUAT / salmeterol 0.021 MG/ACTUAT Metered Dose Inhaler fluticasone-salmeterol (ADVAIR HFA) 115-21 MCG/ACT inhaler fluticasone-salmeterol (ADVAIR HFA) 115-21 MCG/ACT inhaler 2 {puff} Oral aborted Take [address] by mouth daily [facility] Lisinopril 2.5 MG Oral Tablet lisinopril 2.5 mg tablet lisin opril 2.5 mg tablet completed lisinopril 2.[address] ([facility]) Ondansetron 4 MG Oral Tablet ondansetron HCl 4 mg tabl et ondansetron HCl 4 mg tablet completed ondansetron 4 M G Oral Tablet [facility] ([facility] [facility]) Isosorbide Dinitrate 30 MG Oral Tablet i sosorbide dinitrate 30 mg tablet Take 1 tablet twice a day by oral route. isosorbide dinitrate 30 mg tablet Take 1 tablet twice a day by oral route. 1 comp leted isosorbide dinitrate [address] ([facility]) Trazodone Hydrochloride 50 MG Oral Tablet trazodone 50 mg tablet trazodone 50 mg tablet completed trazodone hydr ochloride [address] ([facility]) Insurance Providers Payer name Policy type / Coverage type Policy ID Covered libertarian ID Covered libertarian's relationship to hogan Policy Hogan Plan Information [facility] Part B [id number] 2.16.840.1.151628.3.227.99.991.946458.0 Family Dependent [id number] [facility] Part B [id number] Family Dependent [id number] [facility] Part B [id number] 2.840.1.482875.3.227.99.991.039517.0 Family Dependent [id number] BS [employer] Part B [id number] 2.16840.1.791500.3.227.99.991.741201.0 Family Dependent [id number] BS [employer] Medig[employer] Part B [id number] 2.16840.1.377186.3.227.99.991.133392.0 Family Dependent [id number] BS [employer] Medigap Part B [id number] 2.840.1.392069.3.227.99.991.243581.0 Family Dependent [id number] BS [employer] Medigap Part B [id number] MRN.[id number] Family Dependent [id number] BS [employer] Med[employer] Part B [id number] 2.0.1.239156.3.227.99.991.685779.0 Family Dependent [id number] BS [employer] Medig[employer] Part B [id number] MRN.[id number] Family Dependent [id number] BS [employer] Medig[employer] Part B [id number] 2.840.1.319120.3.227.99.991.081770.0 Family Dependent [id number] BS [employer] Medigap Part B [id number] MRN.[id number] Family Dependent [id number] BS [employer] Med[employer] Part B [id number] 2.0.1.118028.3.227.99.991.678009.0 Family Dependent [id number] BS [employer] Medig[employer] Part B [id number] 2.0.1.155354.3.227.99.991.669791.0 Family Dependent [id number] BS [employer] Medig[employer] Part B [id number] 2.0.1.044483.3.227.99.991.867335.0 Family Dependent [id number] BS [employer] Medig[employer] Part B [id number] 2...128169.3.227.99.991.656469.0 Family Dependent [id number] [employer] MEDICAL CLAIMS [id number] HU2 [id number] [employer] PPO 2 [id number] 2 [id number] Lifetime Benefit Solut Medigap Part B 84574 Family Depen dent Rmsco/Lifetime Nacho Solut Medigap Part B 53626 Family Dep endent Lifetime Benefit Solut Medigap Part B 36975 Family Depen dent Rmsco/Lifetime Nacho Solut [place] Part B 35550 Family Dep endent BS [employer] Medig[employer] Part B [id number] 2..1.559001.3.227.99.991.230725.0 Self [id number] BS [employer] Medigap Part B [id number] Self BS [employer] Commercial 302/802 035395 Self 302/802 BS Filiberto Trad/MX Medigap Part B [id number] 2.0.1.900395.3.227.99.4595.72824.0 Self [id number] [facility] HMO/PPO/POS [id number] 0 [id number] BS [employer] Medigap Part B [id number] 2..1.380513.3.227.99.991.650174.0 Self [id number] Excellus [facility] Medigap Part B [id number] 2.0.1.21833 3.3.227.99.8646.4431.0 Self [id number] BS [employer] Commercial [id number] 2.0.1.624740.3.227.99.991.317074.0 Self [id number] BS [place] Trad/MX Commercial 802 [id number] Self 802 Excellus [facility] Health Maintenance Organization (HMO) [id number] 2.0.1.994603.3.227.99.8646.4431.0 Self U [id number] [facility]OTHER [id number] 0 [id number] Blue Ppo Commercial [id number] Self EXCELLUS H [id number] Self [id number] EBS-RMSCO [id number] 1 [id number] EBSRMSCO LIFETIME BENEFIT SOLU [id number] Spo [id number] RMSCO [id number] 1 [id number] EBS-RMSCO [id number] 1 [id number] EXCELLUS [facility] [id number] Nichole UFU [id number] Lifetime Benefit Solution Medigap Part B [id number] 2..1.623177.3.227.99.991.979124.0 Family Dependent [id number] Lifetime Benefit Solution Medigap Part B 488346 Family De pendent BS [place] Trad/MX Medigap Part B [id number] 2..1.781658.3.227.99.4595.75261.0 Family Dependent [id number] BS [place] Trad/MX Medigap Part B [id number] 2..1.679591.3.227.99.4595.74962.0 Family Dependent [id number] BS [place] Trad/MX Commercial 802 64947 Self 802 BS [place] Trad/MX Commercial [id number] 2..1.268422.3.227.99.4595.92489.0 Self [id number] BS [place] Trad/MX Medigap Part B [id number] 2.0.1.015985.3.227.99.4595.97134.0 Self [id number] BCBS [place] PPO 302/307 [id number] SP [id number] BS [place] Trad/MX Medigap Part B [id number] 2.0.1.885607.3.227.99.4595.20528.0 Self [id number] BS [place] Trad/MX Medigap Part B [id number] 2.0.1.358564.3.227.99.4595.98590.0 Self [id number] BS [place] Trad/MX Commercial [id number] Self BS [place] Trad/MX Medigap Part B [id number] 2.0.1.606769.3.227.99.4595.81446.0 Self [id number] BS [place] Trad/MX Commercial [id number] 2.0.1.879295.3.227.99.4595.61590.0 Self [id number] BCBS OF [place] 306/806 [id number] SP [id number] MEDICARE [id number] xxxxxxxxxxx [id number] MEDICARE A [id number] Self [id number] A MEDICARE A [id number] Self [id number] MEDICARE [id number] Nichole [id number] Y51 BS [employer] Medig[employer] Part B [id number] 2..1.689002.3.227.99.991.653220.0 Family Dependent [id number] BS [employer] Medigap Part B [id number] 2.0.1.266969.3.227.99.991.014275.0 Family Dependent [id number] BS [employer] Medigap Part B [id number] MRN.[id number] Family Dependent [id number] BS [employer] Medigap Part B [id number] 2.0.1.491071.3.227.99.991.907393.0 Family Dependent [id number] BS [employer] Medigap Part B 302/802 749273 Family Dependent 302/802 BS [employer] Medigap Part B [id number] 2.0.1.450414.3.227.99.991.266704.0 Family Dependent [id number] BS [employer] Medigap Part B [id number] 2...317938.3.227.99.991.479692.0 Family Dependent [id number] BS [employer] Medigap Part B [id number] MRN.[id number] Family Dependent [id number] BS [employer] Medigap Part B [id number] 2..1.104784.3.227.99.991.839793.0 Family Dependent [id number] BS [employer] Medigap Part B [id number] 2.0.1.480296.3.227.99.991.753181.0 Family Dependent [id number] BS [employer] Medigap Part B [id number] 2..1.655302.3.227.99.991.355631.0 Family Dependent [id number] BS [employer] Medigap Part B [id number] MRN.[id number] Family Dependent [id number] BS [employer] Medigap Part B [id number] 2.0.1.279697.3.227.99.991.439950.0 Family Dependent [id number] BS [employer] Medigap Part B [id number] 2.0.1.191910.3.227.99.991.685779.0 Family Dependent [id number] BS [employer] Medigap Part B [id number] 2.0.1.419351.3.227.99.991.353805.0 Family Dependent [id number] BS [employer] Medigap Part B [id number] MRN.[id number] Family Dependent [id number] BS [employer] Medig[employer] Part B [id number] 2.0.1.419473.3.227.99.991.194968.0 Family Dependent [id number] BS [employer]ig[employer] Part B [id number] 2.0.1.333480.3.227.99.991.442917.0 Family Dependent [id number] BS [employer] Medigap Part B [id number] 2.0.1.590093.3.227.99.991.517367.0 Family Dependent [id number] BS [employer] Medigap Part B [id number] 2.0.1.050520.3.227.99.991.877558.0 Family Dependent [id number] BS [employer] Medig[employer] Part B [id number] 2.0.1.295538.3.227.99.991.562267.0 Family Dependent [id number] EXCELLUS BCBS [id number] xxxxxxxxxxxx [phone] [id number] EXCELLUS BCBS [id number] Spo VYW [id number] EXCELLUS BCBS [id number] Spo VYW [id number] MEDICARE [id number] Nichole [id number] A Medicare Natl Govt Servic Medicare Primary [id number] 2.840.1.611474.3.227.99.4595.03242.0 Self [id number] Medicare Natl Govt Servic Medicare Primary [id number] 2.16840.1.253695.3.227.99.4595.23084.0 Self [id number] Medicare Natl Govt Servic Medicare Primary [id number] 2.840.1.679404.3.227.99.4595.73320.0 Self [id number] Medicare Natl Govt Servic Medicare Primary [id number] 2.840.1.540702.3.227.99.4595.17372.0 Self [id number] Medicare Natl Govt Servic Medicare Primary [id number] 2.16840.1.915004.3.227.99.4595.75259.0 Self [id number] Medicare Natl Govt Servic Medicare Primary [id number] 2.840.1.299831.3.227.99.4595.47742.0 Self [id number] BS [employer] Medig[employer] Part B [id number] 2.840.1.441383.3.227.99.991.261026.0 Family Dependent [id number] BS [employer] Medigap Part B [id number] 2.840.1.428132.3.227.99.991.617900.0 Family Dependent [id number] EXCELLUS C [id number] Spouse [id number] [facility] Part B [id number] 2.0.1.909592.3.227.99.991.742006.0 Family Dependent [id number] [place] Medicare Primary [id number] MRN.[id number] Self [id number] Medicare [place] Medicare Primary [id number] MRN.[id number] Self [id number] [place] Medicare Primary [id number] 2.0.1.227792.3.227.99.991.742720.0 Self [id number] [place] Medicare Primary [id number] MRN.[id number] Self [id number] Medicare [place] Medicare Primary [id number] 2.840.1.310269.3.227.99.991.484359.0 Self [id number] Medicare [place] Medicare Primary [id number] 2.16840.1.960263.3.227.99.991.584318.0 Self [id number] [place] Medicare Primary [id number] MRN.[id number] Self [id number] Medicare [place] Medicare Primary [id number] 2.840.1.702953.3.227.99.991.890923.0 Self [id number] Medicare [place] Medicare Primary [id number] 2.16840.1.270827.3.227.99.991.771009.0 Self [id number] Medicare [place] Medicare Primary [id number] 2.0.1.270075.3.227.99.991.362297.0 Self [id number] Medicare [place] Medicare Primary [id number] 2.840.1.448214.3.227.99.991.577024.0 Self [id number] MEDICARE [id number] SP [id number] Y51 EXCELLUS BC-BS PPO 306 [id number] SP [id number] BCBS of [facility] [place] Other 0 [id number] Family D ependent Eric Fleming 0 Medicare Part B of [facility] 0 [id number] 1 Self 0 EXCELLUS [place] BS [id number] 01 [id number] MEDICARE PART A [facility] [id number] 18 [id number] MEDICARE C [id number] S [id number] Y51 EXCELLUS BCBS B [id number] S [id number] MEDICARE [id number] SP [id number] Y51 BCBS [place] PPO 302/307 [id number] HU2 [id number] BCBS of [facility] [place] Other 0 [id number] Family D ependent Eric Fleming 0 Medicare Part B of [facility] Other 0 [id number] 1 Self 0 EXCELLUS [place] BS UNAVAILABLE 01 UNAVAILABLE BCBS ..1.840403.3.441 [id number] Blue Cross/Bl ue Shield .0.1.662288.3.441 Lifetime Benefit Solutions .0.1.215589.3.441 105 [id number] Commercial Insurance Co. .1.403170.3.441 EBS[employer] 2.16.840.1.941401.3.441 [id number] Commercial Insurance Co. 2.840.1.181733.3.441 BCBS 2.840.1.821608.3.441 [id number] Blue Cross/Bl ue Shield 2.840.1.769510.3.441 BCBS 2.840.1.828822.3.441 [id number] Blue Cross/Bl ue Shield 2.0.1.055532.3.441 Medicare 2.840.1.172020.3.441 [id number] Medicare Part B 2.0.1.665587.3.441 BC/BS Of [facility] Part B [id number] MRN.[id number] Self [id number] Medicare Part B Medicare Primary [id number] MRN.[id number] Self [id number] BC/BS Of [facility] Part B [id number] MRN.[id number] Family Dependent [id number] Lifetime Benefit ([employer]) Commercial [id number] 2.0.1.367179.3.227.99.4595.69444.0 Family Dependent [id number] BCBS OF [place] 306/806 [id number] [id number] BC/BS Of [facility] [id number] 2.0.1.849997.3.227.99.1037.28843.0 Self [id number] Medicare Part B Medicare Primary [id number] 2.0.1.764372.3.227.99.1037.98751.0 Self [id number] BC/BS Of [facility] Part B [id number] 2.16.840.1.737053.3.227.99.1037.00299.0 Self [id number] Medicare Part B Medicare Primary [id number] 2.16.840.1.065167.3.227.99.1037.89009.0 Self [id number] BLUE CROSS BLUE SHIELD -O/P [id number] 01 [id number] MEDICARE PART A -O/P [id number] 18 [id number] BC[facility]BS [facility] [id number] 2.16840.1.677635.3.227.99.1037.02567.0 Self [id number] Medicare Part B Medicare Primary [id number] 2.16840.1.775921.3.227.99.1037.60956.0 Self [id number] MEDICARE C [id number] S [id number] A MEDICARE PART A -O/P [id number] 18 [id number] MEDICARE PART A [facility] [id number] 18 [id number] MEDICARE [id number] SP [id number] A BC/BS Of [facility] Part B [id number] 2.16840.1.580993.3.227.99.1037.34993.0 Self [id number] Medicare Part B Medicare Primary [id number] 2.16.840.1.499144.3.227.99.1037.68404.0 Self [id number] Medicare [place] Medicare Primary [id number] 2.16840.1.391752.3.227.99.991.577449.0 Self [id number] Medicare [place] Medicare Primary [id number] 2.16.840.1.460242.3.227.99.991.592834.0 Self [id number] Medicare [place] Medicare Primary [id number] 2.16.840.1.258709.3.227.99.991.284073.0 Self [id number] BC/BS Of [facility] Part B [id number] 2.0.1.209755.3.227.99.1037.51310.0 Self [id number] Medicare Part B Medicare Primary [id number] 2.0.1.225733.3.227.99.1037.88219.0 Self [id number] [employer] [place] OPTIONS C [id number] S [id number] Medicare [place] Medicare Primary [id number] 2.0.1.613395.3.227.99.991.940092.0 Self [id number] BC/BS Of [facility] Part B [id number] 2.0.1.505798.3.227.99.1037.03821.0 Self [id number] Medicare Part B Medicare Primary [id number] 2..1.673662.3.227.99.1037.96348.0 Self [id number] Medicare [place] Medicare Primary [id number] 2..1.341446.3.227.99.991.478507.0 Self [id number] EXCELLUS BCBS B [id number] S UFU [id number] EXCELLUS BCBS B [id number] S [id number] [id number] Medicare [place] Medicare Primary [id number] 2.0.1.254496.3.227.99.991.677298.0 Self [id number] Medicare [place] Medicare Primary [id number] 2.0.1.351976.3.227.99.991.026470.0 Self [id number] BC/BS Of [facility] Part B [id number] 2.0.1.838867.3.227.99.1037.06463.0 Self [id number] Medicare Part B Medicare Primary [id number] 2.0.1.513318.3.227.99.1037.51932.0 Self [id number] Lifetime Benefit Solution Medigap Part B [id number] 2.160.1.702994.3.227.99.991.358545.0 Family Dependent [id number] Medicare [place] Medicare Primary [id number] 2.16.0.1.679829.3.227.99.991.533277.0 Self [id number] Excellus BCBS Medigap Part B [id number] 2.160.1.35664 3.3.227.99.8646.4431.0 Self [id number] Medicare [place]/NGS Medicare Primary [id number] 2.160.1.516440.3.227.99.8646.4431.0 Self 0 [id number] MEDICARE C [id number] S [id number] Excellus BCBS Medigap Part B [id number] 2.0.1.45709 3.3.227.99.8646.4431.0 Self [id number] BC/BS Of [employer] [facility] [employer] [id number] 2.0.1.256265.3.227.99.1037.68149.0 Self [id number] BC/BS Of [employer] [place] Commercial [id number] 2.0.1.656075.3.227.99.1037.59114.0 Family Dependent [id number] BC/BS Of [facility] Medigap Part B [id number] 2.0.1.919011.3.227.99.1037.15132.0 Self [id number] Lifetime Benefit Solution Medigap Part B [id number] 2.0.1.399529.3.227.99.991.835693.0 Family Dependent [id number] Lifetime Benefit Solution Medigap Part B [id number] Family De pendent EXCELLUS BS B [id number] S UFU [id number] Lifetime Benefit ([employer]) Commercial [id number] Family Depende nt BC/BS Of [employer] [facility] Medigap Part B 93894 Family Dep endent BC/BS Of [employer] [place] Commercial 79435 Self LIFETIME BENEFIT SOLUTIO O [id number] P [id number] BCBS Excellus Ppo U/W Medigap Part B 17569 Self BCBS Excellus Ppo U/W Medigap Part B 37941 Self BCBS Excellus Ppo U/W Medigap Part B 25553 Family Depend ent BCBS Excellus Ppo U/W Commercial 43618 Self BC/BS Of [employer] [place] Commercial 08467 Family Depende nt BCBS [place] PPO 302/307 [id number] SP [id number] BLUE CROSS OTHER 1 [id number] SP [id number] EXCELLUS BCBS B UNAVAILABLE P UNAV AILABLE BC/BS [employer] [place] Medigap Part B 38565 Self BC/BS [employer] [facility] Medigap Part B 66743 Self LIFETIME BENEFIT SOLUTIONS [id number] SP [id number] BCBS [place] PPO 302/307 [id number] SP [id number] Lifetime Benefit Solution Commercial 36244 Family Depend ent LIFETIME BENEFIT SOLUTIO S [id number] P [id number] RMSCO S [id number] S [id number] SELF PAY 2 UNAVAILABLE 1 UNAVAILA BLE BC EXC PLANS 1 [id number] 1 [id number] EXCELLUS BC-BS PPO 306 [id number] HU2 [id number] Problems, Conditions, and Diagnoses Code Display Name Description Problem Type Effective Dates Data Source(s) E66.09 Other obesity due to excess calories Oth er obesity due to excess calories Diagnosis 09/28/2020 09:58:[address] 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 G47.33 Obstructive sleep apnea (adult) (pediatr ic) Obstructive sleep apnea (adult) (pediatr Diagnosis 09/28/2020 09:58:[address] [facility] E78.49 Other hyperlipidemia Other hyperlipidemia Diagnosis 09/28/2020 09:58:[address] [facility] I10 Essential (primary) hypertension Essential (primary) h ypertension Diagnosis 09/28/2020 09:58:[address] 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 I25.5 Ischemic cardiomyopathy Ischemic cardiomyopathy Diagno sis 09/28/2020 09:58:[address] [facility] I25.2 Old myocardial infarction Old myocardial infarction Di agnosis 06/22/2020 11:07:[address] [facility] R07.89 Other chest pain Other chest pain Diagnosis 06/22/2020 11 :07:[address] [facility] Z98.61 Coronary angioplasty status Coronary angioplasty statu s Diagnosis 06/22/2020 11:07:[address] [facility] Z01.810 Encounter for preprocedural cardiovascul ar examination Encounter for preprocedural cardiovascul Diagnosis 06/15/2020 10:50:41 AM EDT [facility] E78.5 Hyperlipidemia, unspecified Hyperlipidemia, unspecifie d Diagnosis 04/02/2020 11:02:[address] [facility] I21.02 ST elevation (STEMI) myocard ial infarction involving left anterior descending coronary artery ST elevation (STEMI) myocardial infarcti Diagnosis 01/21/2020 08:39:[address] [facility] G89.29 Chronic pain Other chronic pain Problem 08/13/2020 12:0 0:00 AM EDT eCW1 ([facility]) G43.709 [id number] Chronic migraine Problem 07/15/2020 12:00:00 AM EDT eCW1 ([facility]) G43.709 [id number] Chronic migraine w/o aura w/o status migrainosus, not intractable Problem 06/17/2020 12:00:00 AM EDT eCW1 ([facility]) I25.[address] elevation myocardial infar ction (STEMI) History of ST elevation myocardial infarction (STEMI) [id number] 06/17/2020 12:00:[address] [facility] R07.89 Other chest pain Other chest pain [id number] 06/17/2020 12 :00:[address] [facility] Z98.61 Coronary angioplasty status Coronary angioplasty statu s [id number] 06/17/2020 12:00:[address] [facility] G47.33 JAY on CPAP JAY on CPAP [id number] 01/14/2020 12:00:00 AM [facility] I10 Essential hypertension Essential hypertension [id number] 01/14/2020 12:00:00 AM [facility] Surgeries/Procedures Procedure Description Date Indications Data Source(s) OFFICE OUTPATIENT VISIT 25 MINUTES 12/07/2020 12:00:00 AM EDT [facility] ([facility] ) OFFICE OUTPATIENT VISIT 15 MINUTES 12/02/2020 12:00:00 AM EDT [facility] ([facility] ) FALLS RISK ASSESSMENT DOCUMENTED 11/30/2020 12:00:00 A M EDT [facility] ([facility]) OFFICE OUTPATIENT VISIT 25 MINUTES 11/30/2020 12:00:00 AM EDT [facility] ([facility] ) BRNCDILAT RSPSE SPMTRY PRE&POST-BRNCDILAT ADMN 021 12:00:00 AM EDT [facility] ([facility]) OFFICE OUTPATIENT VISIT 15 MINUTES 11/26/2020 12:00:00 AM EDT [facility] ([facility]) OFFICE OUTPATIENT VISIT 15 MINUTES 11/23/2020 12:00:00 AM EDT [facility] ([facility] ) OFFICE OUTPATIENT VISIT 10 MINUTES 11/12/2020 12:00:00 AM EDT [facility] ([facility]) RADIOLOGIC EXAM KNEE COMPLETE 4/MORE VIEWS 11/11/2020 12:00:00 AM EDT [facility] ([facility] ) OFFICE OUTPATIENT VISIT 25 MINUTES 11/11/2020 12:00:00 AM EDT [facility] ([facility] ) OFFICE OUTPATIENT VISIT 15 MINUTES 11/11/2020 12:00:00 AM EDT [facility] ([facility]) OFFICE OUTPATIENT VISIT 25 MINUTES 11/10/2020 12:00:00 AM EDT [facility] ([facility]) OFFICE OUTPATIENT NEW 30 MINUTES 11/08/2020 12:00:00 A M EDT [facility] OFFICE OUTPATIENT VISIT 15 MINUTES 11/04/2020 12:00:00 AM EDT [facility] ([facility] ) OFFICE OUTPATIENT VISIT 15 MINUTES 11/01/2020 12:00:00 AM EDT [facility] ([facility]) THERAPEUTIC PX 1/> AREAS EACH 15 MIN EXERCISES 12:00:00 AM EDT [facility] ([facility] ) THERAPEUTIC PX 1/> AREAS EACH 15 MIN EXERCISES 12:00:00 AM EDT [facility] ([facility] ) THERAPEUTIC PX 1/> AREAS EACH 15 MIN EXERCISES 12:00:00 AM EDT [facility] ([facility] ) THERAPEUTIC PX 1/> AREAS EACH 15 MIN EXERCISES 12:00:00 AM EDT [facility] ([facility] ) THERAPEUTIC PX 1/> AREAS EACH 15 MIN EXERCISES 12:00:00 AM EDT [facility] ([facility] ) APPLICATION MODALITY 1/> AREAS HOT/COLD PACKS 10/16/19 12:00:00 AM EDT [facility] ([facility] ) Chronic Care Management Services Ea Addl 20 Min 2020 12:00:00 AM EDT [facility] ([facility]) Chronic Care MGMT 20 Mins Clinical Staff Time Per Calendar M onth 10/13/2020 12:00:00 AM EDT [facility] ([facility] ) THERAPEUTIC PX 1/> AREAS EACH 15 MIN EXERCISES 12:00:00 AM EDT [facility] ([facility] ) THERAPEUTIC PX 1/> AREAS EACH 15 MIN EXERCISES 12:00:00 AM EDT [facility] ([facility] ) THERAPEUTIC PX 1/> AREAS EACH 15 MIN EXERCISES 12:00:00 AM EDT [facility] ([facility] ) MANUAL THERAPY TQS 1/> REGIONS EACH 15 MINUTES 12:00:00 AM EDT [facility] ([facility] ) OFFICE OUTPATIENT VISIT 25 MINUTES 10/04/2020 12:00:00 AM EDT [facility] ([facility]) MANUAL THERAPY TQS 1/> REGIONS EACH 15 MINUTES 12:00:00 AM EDT [facility] ([facility] ) OFFICE OUTPATIENT VISIT 15 MINUTES 09/29/2020 12:00:00 AM EDT [facility] ([facility] ) THERAPEUTIC PX 1/> AREAS EACH 15 MIN EXERCISES 12:00:00 AM EDT [facility] ([facility] ) ARTHROCENTESIS ASPIR&/INJECTION MAJOR JT/BURSA 12:00:00 AM EDT [facility] ([facility] ) THERAPEUTIC PX 1/> AREAS EACH 15 MIN EXERCISES 12:00:00 AM EDT [facility] ([facility] ) THERAPEUTIC PX 1/> AREAS EACH 15 MIN EXERCISES 12:00:00 AM EDT [facility] [facility] THERAPEUTIC PX 1/> AREAS EACH 15 MIN EXERCISES 12:00:00 AM EDT MED[facility] ([facility] ) THERAPEUTIC PX 1/> AREAS EACH 15 MIN EXERCISES 12:00:00 AM EDT [facility] ([facility] ) MANUAL THERAPY TQS 1/> REGIONS EACH 15 MINUTES 12:00:00 AM EDT [facility] ([facility] ) THERAPEUTIC PX 1/> AREAS EACH 15 MIN EXERCISES 12:00:00 AM EDT [facility] ([facility] ) MANUAL THERAPY TQS 1/> REGIONS EACH 15 MINUTES 12:00:00 AM EDT [facility] ([facility] ) MANUAL THERAPY TQS 1/> REGIONS EACH 15 MINUTES 12:00:00 AM EDT [facility] ([facility] ) THERAPEUTIC PX 1/> AREAS EACH 15 MIN EXERCISES 12:00:00 AM EDT [facility] ([facility] ) THERAPEUTIC PX 1/> AREAS EACH 15 MIN EXERCISES 12:00:00 AM EDT [facility] ([facility] ) MANUAL THERAPY TQS 1/> REGIONS EACH 15 MINUTES 12:00:00 AM EDT [facility] ([facility] ) THERAPEUTIC PX 1/> AREAS EACH 15 MIN EXERCISES 12:00:00 AM EDT [facility] ([facility] ) MANUAL THERAPY TQS 1/> REGIONS EACH 15 MINUTES 12:00:00 AM EDT [facility] ([facility] ) THERAPEUTIC PX 1/> AREAS EACH 15 MIN EXERCISES 12:00:00 AM EDT [facility] ([facility] ) MANUAL THERAPY TQS 1/> REGIONS EACH 15 MINUTES 12:00:00 AM EDT [facility] ([facility] ) FALLS RISK ASSESSMENT DOCUMENTED 08/31/2020 12:00:00 A M EDT MED[facility] ([facility] ) OFFICE OUTPATIENT VISIT 25 MINUTES 08/31/2020 12:00:00 AM EDT [facility] ([facility] ) Chronic Care MGMT 20 Mins Clinical Staff Time Per Calendar M [facility] 08/31/2020 12:00:00 AM EDT [facility] ([facility] ) Physical Therapy Eval - Low Complexity 08/26/2020 12:0 0:00 AM EDT [facility] ([facility] ) X-Ray Hips Bilateral With Pelvis 3-4 Views 08/17/2020 12:00:00 AM EDT [facility] ([facility] ) OFFICE OUTPATIENT VISIT 15 MINUTES 08/17/2020 12:00:00 AM EDT [facility] ([facility] ) OFFICE OUTPATIENT VISIT 25 MINUTES 08/17/2020 12:00:00 AM EDT [facility] ([facility] ) Pain Procedure Log 08/16/2020 12:00:00 AM EDT eCW1 ([facility]) Chronic Care Management Services Ea Addl 20 Min 2020 12:00:00 AM EDT MEDHEIDI ([facility]) Chronic Care MGMT 20 Mins Clinical Staff Time Per Calendar M ont 07/14/2020 12:00:00 AM EDT MEDENT ([facility] ) ECG ROUTINE ECG W/LEAST 12 LDS TRCG ONLY W/O I&R <td>E CG 12- LEAD</td><td>Routine</td><td>06/22/2020 2:28 PM EDT</td><td></td><td></td> 06/22/2020 02:28:[address] [facility] CARDIAC CATHETERIZATION <td>CARDIAC CATHETERIZATION</td><td>Routine</td><td>06/22/2020 1:36 PM EDT</td><td> Cardiomyopathy, ischemic Coronary artery disease involving sycuan coronary artery of sycuan heart without angina pectoris Coronary angioplasty status Other chest pain Other hyperlipidemia Essential hypertension JAY on CPAP Obesity due to excess calories, unspecified classification, unspecified whether serious comorbidity present History of ST elevation myocardial infarction (STEMI)</td><td> </td> 06/22/2020 01:36:[address] elevation myocardial infar ction (STEMI)Obesity due to excess calories, unspecified classification, unspecified whether serious comorbidity presentOSA on CPAPEssential hypertensionOther hyperlipidemiaOther chest painCoronary angioplasty statusCoronary artery disease involving sycuan coronary artery of sycuan heart without angina pectorisCardiomyopathy, ischemic [facility] History of ST elevation myocardial infar ction (STEMI) Obesity due to excess calories, unspecif ied classification, unspecified whether serious comorbidity present JAY on CPAP Essential hypertension Other hyperlipidemia Other chest pain Coronary angioplasty status Coronary artery disease involving sycuan coronary artery of sycuan heart without angina pectoris Cardiomyopathy, ischemic ECG ROUTINE ECG W/LEAST 12 LDS TRCG ONLY W/O I&R <td>E CG 12- LEAD</td><td>Routine</td><td>06/22/2020 11:46 AM EDT</td><td></td><td></td> 06/22/2020 11:46:[address] [facility] Operation on Heart Valve 06/22/2020 12:00:[address] ([facility]) Chronic Care Management Services Ea Addl 20 Min 2020 12:00:00 AM EDT MEDENT ([facility]) Chronic Care MGMT 20 Mins Clinical Staff Time Per Calendar M onth 06/17/2020 12:00:00 AM EDT MEDENT ([facility] ) BRNCDILAT RSPSE SPMTRY PRE&POST-BRNCDILAT ADMN 021 12:00:00 AM EDT [facility] ([facility]) OFFICE OUTPATIENT VISIT 25 MINUTES 05/24/2020 12:00:00 AM EDT MED[facility] ([facility] ) OFFICE OUTPATIENT VISIT 25 MINUTES 05/03/2020 12:00:00 AM EDT MED[facility] ([facility]) Surgical / procedural history : 2 C-Sect ions, Cautery in nose due to nose bleed (Dr. Hussein Zamarripa), Stimulator inserted into back June 2013, Right Shoulder Surgery in July 2013, Throat [id number], Left Knee Surgery 07/2014, 1 heart stent 02/2016, Hysterectomy June 2018, Knee Surgery September 2018, Hammer Toe Surgery 02/2019, 2 heart stents and cleaning of other stent 02/2019 Surgical / procedural history : 2 C-Sections, Cautery in nose due to nose bleed (Dr. Hussein Zamarripa), Stimulator inserted into back June 2013, Right Shoulder Surgery in July 2013, Throat [id number], Left Knee Surgery 07/2014, 1 heart stent 02/2016, Hysterectomy June 2018, Knee Surgery September 2018, Hammer Toe Surgery 02/2019, 2 heart stents and cleaning of other stent 02/201904/27/2020 12:00:00 AM EST JERI (Pancho Larsen MD [facility]) Comprehensive eye exam established patient Comprehensi ve eye exam established patient 04/27/2020 12:00:00 AM EST JERI (Chauncey Larsen MD [facility]) CHEMODNRVTJ MUSC MUSC INNERVATED FACIAL NRV 03/12/2020 12:00:00 AM EST [facility] ([facility] ) TROPONIN QUANTITATIVE <td>TROPONIN I</td><td>Routi ne</td><td>01/23/2020 6:20 AM EST</td><td></td><td> </td> 01/23/2020 11:20:[address] [facility] BLOOD COUNT COMPLETE AUTOMATED <td>CBC</td><td>Routine </td><td>01/23/2020 6:20 AM EST</td><td></td><td> </td> 01/23/2020 11:20:[address] [facility] BASIC METABOLIC PANEL CALCIUM TOTAL <td>BASIC METABOLI C PANEL</td><td>Routine</td><td>01/23/2020 6:20 AM EST</td><td></td><td> </td> 01/23/2020 11:20:[address] [facility] CT ANGIOGRAPHY CHEST W/CONTRAST/NONCONTRAST <td>CT ANG IOGRAM CHEST</td><td>Routine</td><td>01/22/2020 10:06 PM EST</td><td></td><td> </td> 01/23/2020 03:06:[address] [facility] CREATINE KINASE MB FRACTION ONLY <td>CKMB</td><td>Rout ine</td><td>01/22/2020 9:02 PM EST</td><td></td><td> </td> 01/23/2020 02:02:[address] [facility] TROPONIN QUANTITATIVE <td>TROPONIN I</td><td>Add-O n</td><td>01/22/2020 4:14 PM EST</td><td></td><td> </td> 01/22/2020 09:14:[address] [facility] FIBRIN DGRADJ PRODUCTS D-DIMER QUANTITATIVE <td>D-DIME R, QUANTITATIVE</td><td>STAT</td><td>01/22/2020 4:14 PM EST</td><td></td><td> </td> 01/22/2020 09:14:[address] [facility] CMB <td>CMB</td><td>STAT</td><td >01/22/2020 1:26 PM EST</td><td></td><td> </td> 01/22/2020 06:26:[address] [facility] TROPONIN QUANTITATIVE <td>TROPONIN I</td><td>STAT< /td><td>01/22/2020 1:26 PM EST</td><td></td><td> </td> 01/22/2020 06:26:[address] [facility] CREATINE KINASE MB FRACTION ONLY <td>CKMB</td><td>STAT </td><td>01/22/2020 1:26 PM EST</td><td></td><td> </td> 01/22/2020 06:26:[address] [facility] ECG ROUTINE ECG W/LEAST 12 LDS W/I&R <td>ECG 12- LEAD</td><td>Routine</td><td>01/22/2020 11:51 AM EST</td><td></td><td></td> 01/22/2020 04:51:[address] [facility] ECG ROUTINE ECG W/LEAST 12 LDS TRCG ONLY W/O I&R <td>E CG 12- LEAD</td><td>Routine</td><td>01/22/2020 5:11 AM EST</td><td></td><td></td> 01/22/2020 10:11:[address] [facility] BASIC METABOLIC PANEL CALCIUM TOTAL <td>BASIC METABOLI C PANEL</td><td>Routine</td><td>01/22/2020 4:43 AM EST</td><td></td><td> </td> 01/22/2020 09:43:[address] [facility] ECG ROUTINE ECG W/LEAST 12 LDS TRCG ONLY W/O I&R <td>E CG 12- LEAD</td><td>Routine</td><td>01/21/2020 1:19 PM EST</td><td></td><td></td> 01/21/2020 06:19:[address] [facility] CARDIAC CATHETERIZATION <td>CARDIAC CATHETERIZATION</td><td>Routine</td><td>01/21/2020 12:47 PM EST</td><td> Coronary angioplasty status Cardiomyopathy, ischemic Hyperlipidemia, unspecified hyperlipidemia type ST elevation (STEMI) myocardial infarction involving left anterior descending coronary artery Essential hypertension JAY on CPAP</td><td> </td> 01/21/2020 05:47:04 PM EST JAY on CPAPEssential hypertensionST elev ation (STEMI) myocardial infarction involving left anterior descending coronary arteryHyperlipidemia, unspecified hyperlipidemia typeCardiomyopathy, ischemicCoronary angioplasty status [facility] JAY on CPAP Essential hypertension ST elevation (STEMI) myocardial infarcti on involving left anterior descending coronary artery Hyperlipidemia, unspecified hyperlipidem ia type Cardiomyopathy, ischemic Coronary angioplasty status ECG ROUTINE ECG W/LEAST 12 LDS TRCG ONLY W/O I&R <td>E CG 12- LEAD</td><td>Routine</td><td>01/21/2020 8:59 AM EST</td><td></td><td></td> 01/21/2020 01:59:[address] [facility] Operation on Heart Valve 01/21/2020 12:00:[address] ([facility]) Operation on Heart Valve 01/21/2020 12:00:[address] ([facility]) CHEMODNRVTJ MUSC MUSC INNERVATED FACIAL NRV 12/11/2019 12:00:00 AM EDT MEDENT ([facility] ) Needle electromyography, each extremity, with related paraspinal areas, when performed, done with nerve conduction, amplitude and latency/velocity study; complete, five or more muscles studied, innervated by three or more nerves or four or more spinal levels (list separately in addition to the code for primary procedure). 11/24/2019 12:00:00 AM EDT MEDEN T ([facility] ) Needle electromyography, each extremity, with related paraspinal areas, when performed, done with nerve conduction, amplitude and latency/velocity study; complete, five or more muscles studied, innervated by three or more nerves or four or more spinal levels (list separately in addition to the code for primary procedure). 11/24/2019 12:00:00 AM EDT MEDEN T ([facility] ) Needle Electromyography Non Extremity Done With Nerve Conduc tion 11/24/2019 12:00:00 AM EDT [facility] ([facility]) [address] Nerve conduction studies 13 or more studies NEW 201211/24/2019 12:00:00 AM EDT [facility] ([facility] ) Neurostimulation of Spinal Cord Tissue 10/19/2019 12:0 0:[address] ([facility]) Neurostimulation of Spinal Cord Tissue 10/19/2019 12:0 0:[address] ([facility]) Neurostimulation of Spinal Cord Tissue 10/19/2019 12:0 0:[address] ([facility]) Neurostimulation of Spinal Cord Tissue 10/19/2019 12:0 0:[address] ([facility]) Neurostimulation of Spinal Cord Tissue 10/19/2019 12:0 0:[address] ([facility]) Results ID Date Data Source [id number] 11/23/2020 01:12:00 PM EDT [facility] ([facility]) Name Value Range Interpretation Code Description Data Viki rce(s) Supporting Document(s) C reactive protein [Mass/volume] in Serum or Plasma by High sensitivity method 0.94 mg/dL 0.00-0.30 [facility] ([facility]) Erythrocyte sedimentation rate by Westergren method 27 mm/hr 0-30 [facility] ([facility]) ID Date Data Source [id number] 11/23/2020 01:12:00 PM EDT [facility] ([facility]) Name Value Range Interpretation Code Description Data Viki e(s) Supporting Document(s) Red Blood Count 4.06 10 4.00-5.40 [facility] ([facility]) Hemoglobin 12.5 g/dL 12.0-15.5 MED[facility] ([facility]) White Blood Count 10.5 10 4.0-10.0 MED[facility] ([facility]) Mean Corpuscular Volume 96.6 fl 80.0-96.0 M EDENT ([facility]) Hematocrit 39.2 % 36.0-47.0 MED[facility] ([facility]) Red Cell Distribution Width 14.6 % 11.5-14.5 MED[facility] ([facility]) Mean Corpuscular HGB Conc 31.9 g/dL 32.0-36.5 MED[facility] ([facility]) Mean Corpuscular Hemoglobin 30.8 pg 27.0-33.0 MED[facility] ([facility]) Platelet Count, Automated 383 10 150-450 MED[facility] ([facility]) Neutrophils % 68.7 % 36.0-66.0 MED[facility] ([facility]) Eos % 0.4 % 0.0-3.0 [facility] ([facility]) Lymph % 22.5 % 24.0-44.0 MED[facility] ([facility]) [place] % 7.2 % 2.0-8.0 MED[facility] ([facility]) Nucleated Red Blood Cell % 0.0 % 0-0 MED ENT ([facility]) Immature Granulocyte % 0.4 % 0-3.0 [facility] ([facility]) Baso % 0.8 % 0.0-1.0 [facility] ([facility]) Neutrophils # 7.2 10 1.5-8.5 MED[facility] ([facility]) Lymph # 2.4 10 1.5-5.0 [facility] ([facility]) Baso # 0.1 10 0.0-0.2 [facility] ([facility]) Eos # 0.0 10 0.0-0.5 [facility] ([facility]) [place] # 0.8 10 0.0-0.8 MED[facility] ([facility]) ID Date Data Source [id number] 11/13/2020 12:31:00 AM EDT [facility] Name Value Range Interpretation Code Description Data Viki rce(s) Supporting Document(s) SARS coronavirus 2 RNA [Presence] in Res piratory specimen by BRO with probe detection NEGATIVE [place] This lab was ordered by [facility] a nd reported by [facility]. ID Date Data Source [id number] 11/12/2020 07:14:00 PM EDT MEDENT ([facility]) Name Value Range Interpretation Code Description Data Viki rce(s) Supporting Document(s) White Blood Count 8.8 10 4.0-10.0 MEDENT ([facility]) Hemoglobin 12.2 g/dL 12.0-15.5 [facility] Red Blood Count 4.03 10 4.00-5.40 MEDENT ([facility]) Mean Corpuscular Volume 94.8 fl 80.0-96.0 MEDENT ([facility]) Mean Corpuscular Hemoglobin 30.3 pg 27.0-33.0 ME DENT ([facility]) Hematocrit 38.2 % 36.0-47.0 MEDENT ([facility]) Mean Corpuscular HGB Conc 31.9 g/dL 32.0-36.5 MEDE NT ([facility]) Red Cell Distribution Width 14.4 % 11.5-14.5 [place] DENT ([facility]) Neutrophils % 69.2 % 36.0-66.0 MEDENT ([facility]) Lymph % 21.0 % 24.0-44.0 [facility]) Platelet Count, Automated 304 10 150-450 MEDE NT ([facility]) [place] % 7.6 % 2.0-8.0 [facility]) Eos % 1.3 % 0.0-3.0 [facility]) Baso % 0.6 % 0.0-1.0 [facility]) Immature Granulocyte % 0.3 % 0-3.0 MEDENT ([facility]) Nucleated Red Blood Cell % 0.0 % 0-0 MED ENT ([facility]) Neutrophils # 6.1 10 1.5-8.5 MEDENT ([facility]) Lymph # 1.8 10 1.5-5.0 [facility]) [place] # 0.7 10 0.0-0.8 [facility] Baso # 0.1 10 0.0-0.2 [facility] Eos # 0.1 10 0.0-0.5 [facility]) ID Date Data Source [id number] 11/12/2020 07:14:00 PM EDT MEDENT ([facility]) Name Value Range Interpretation Code Description Data Viki rce(s) Supporting Document(s) C reactive protein [Mass/volume] in Serum or Plasma by High sensitivity method 3.05 mg/dL 0.00-0.30 MEDENT ([facility] ) ID Date Data Source [id number] 11/12/2020 07:14:00 PM EDT MED[facility] ([facility]) Name Value Range Interpretation Code Description Data Viki rce(s) Supporting Document(s) Glucose, Fasting 78 mg/dL 70-100 MEDENT ([facility]) Blood Urea Nitrogen 6 mg/dL 7-18 MEDENT ([facility]) Creatinine For GFR 0.70 mg/dL 0.55-1.30 MEDENT ([facility]) Glomerular Filtration Rate Laboratory test result [facility] ([facility]) <content>Units are mL/min/1.73 m2</content>
<content></content>
<content>Chronic Kidney Disease Staging per NKF:</content>
<content></content>
<content>Stage I & II GFR >=60 Normal to Mildly Decreased</content>
<content>Stage III GFR 30- 59 Moderately Decreased</content>
<content>Stage IV GFR 15-29 Severely Decreased</content>
<content>Stage V GFR <15 Very Little GFR Left</content>
<content>ESRD GFR <15 on ACTIVITIES ATTENDANT</content>
<content></content> Potassium Serum 5.9 meq/L 3.5-5.1 MEDENT ([facility]) Testing was performed on a hemolysed spe cimen. Suggest recollection of specimen for more accurate test results. Sodium Level 138 meq/L 136-145 MEDENT ([facility]) Carbon Dioxide Level 24 meq/L 21-32 MEDENT ([facility]) Anion Gap 7 meq/L 8-16 [facility] ([facility] Chloride Level 107 meq/L 98-107 MEDENT ([facility]) Calcium Level 7.8 mg/dL 8.8-10.2 MEDENT ([facility]) ID Date Data Source [id number] 11/12/2020 07:14:00 PM EDT MEDENT ([facility]) Name Value Range Interpretation Code Description Data Ivki rce(s) Supporting Document(s) Erythrocyte sedimentation rate by Westergren method 37 mm/hr 0-30 MEDENT ([facility]) ID Date Data Source [id number] 11/10/2020 01:59:00 PM EDT MED[facility] ([facility] Name Value Range Interpretation Code Description Data Viki rce(s) Supporting Document(s) Erythrocytes [#/volume] in Blood by Automated count 3.89 x10*6/UL 4.2 0-6.30 MEDENT ([facility]) Leukocytes [#/volume] in Blood by Automated count 9.2 x10*3/UL 4.1-10 .9 MEDENT ([facility]) Hemoglobin [Mass/volume] in Blood 12.1 g/dL 12.0-18.0 MED[facility] ([facility]) MCV 90.2 fL 80.0-97.0 [facility] ([facility]) MCH 31.2 pg 26.0-32.0 [facility] ([facility]) Hematocrit [Volume Fraction] of Blood by Automated count 35.1 % 3 7.0-51.0 MEDENT ([facility]) Platelets [#/volume] in Blood by Automated count 386 x10*3/UL 140-440 MED[facility] ([facility]) Erythrocyte distribution width [Ratio] by Automated count 14.1 % 11.6-13.7 MED[facility] ([facility]) MCHC 34.5 g/dL 31.0-38.0 [facility] Mid % 4.7 % 1.7-9.3 [facility] Lymph % 17.1 % 10.0-58.5 [facility] ([facility]) MPV 7.9 FL 7.8-11.0 [facility] ([facility]) Mid # 0.5 x10*3/UL 0.1-0.6 MED[facility] ([facility]) Neut % 78.2 % 37.0-92.0 [facility] ([facility]) Lymph # 1.5 x10*3/UL 0.6-4.1 MED[facility] ([facility]) Neut # 7.2 x10*3/UL 2.0-7.8 MED[facility] ([facility]) ID Date Data Source [id number] 11/10/2020 01:59:00 PM EDT MEDENT ([facility]) Name Value Range Interpretation Code Description Data Viki rce(s) Supporting Document(s) Glucose [Mass/volume] in Serum or Plasma 79 mg/dL 74-99 MED[facility] ([facility]) 100-125 mg/dL PRE-DIABETES/FASTING >126 mg/dL DIABETES/FASTING Urea nitrogen [Mass/volume] in Serum or Plasma 7 mg/dL 7-18 MED[facility] ([facility]) Creatinine 0.8 mg/dL 0.6-1.3 MEDENT ([facility]) Sodium [Moles/volume] in Serum or Plasma 137 meq/L 136-145 MED[facility] ([facility]) Potassium [Moles/volume] in Serum or Plasma 3.6 meq/L 3.5-5.1 MED[facility] ([facility]) Chloride [Moles/volume] in Serum or Plasma 103 meq/L 98-107 [facility] Carbon dioxide, total [Moles/volume] in Serum or Plasma 30 meq/L 21 -32 [facility] ([facility]) Glomerular filtration rate/1.73 sq M pre dicted among blacks [Volume Rate/Area] in Serum or Plasma by Creatinine-based formula (MDRD) Laboratory test result [facility] ([facility]) <content>CHRONIC KIDNEY DISEASE STAGING PER NKF</content>
<content></content>
<content>STAGE I & II GFR >= 60 NORMAL TO MILDLY DECREASED</content>
<content>STAGE III GFR 30-59 MODERATELY DECREASED</content>
<content>STAGE IV GFR 15-29 SEVERELY DECREASED</content>
<content>STAGE V GFR <15 VERY LITTLE GFR LEFT</content>
<content>ESRD GFR <15 ON ACTIVITIES ATTENDANT</content>
<content></content> Glomerular filtration rate/1.73 sq M pre dicted among non-blacks [Volume Rate/Area] in Serum or Plasma by Creatinine-based formula (MDRD) Laboratory test result [facility] ([facility] ) Calcium [Mass/volume] in Serum or Plasma 8.5 mg/dL 8.5-10.1 [facility] ([facility]) ID Date Data Source [id number] 11/03/2020 10:30:00 AM EDT [facility] Name Value Range Interpretation Code Description Data Viki rce(s) Supporting Document(s) SARS-CoV-2 (COVID-19) RNA [Presence] in Respiratory specimen by BRO with probe detection Not Detected [facility] This lab was ordered by [facility] and reported by [employer]. ID Date Data Source [id number] 11/01/2020 06:49:00 PM EDT [facility] ([facility] Name Value Range Interpretation Code Description Data Viki rce(s) Supporting Document(s) Laboratory test finding (navigational concept) 41.0 % 38.0-51.0 [facility] Laboratory test finding (navigational concept) 137 meq/L 136-145 [facility] ([facility]) Laboratory test finding (navigational concept) 82 mg/dL 70-105 [facility] ([facility]) Laboratory test finding (navigational concept) 3.4 meq/L 3.5-5.1 [facility] ([facility]) Laboratory test finding (navigational concept) 21.0 MM/L 23.0-27.0 [facility] ([facility]) Laboratory test finding (navigational concept) 105 meq/L 98-109 [facility] ([facility]) Laboratory test finding (navigational concept) 4.7 mg/dL 4.5-5.3 [facility] ([facility]) Laboratory test finding (navigational concept) 5 mg/dL 8-26 [facility] ([facility]) Laboratory test finding (navigational concept) 0.6 mg/dL 0.6-1.3 [facility] ([facility]) ID Date Data Source [id number] 11/01/2020 06:44:00 PM EDT [facility] ([facility]) Name Value Range Interpretation Code Description Data Viki rce(s) Supporting Document(s) White Blood Count 10.2 10 4.0-10.0 MED[facility] ([facility]) Red Blood Count 4.22 10 4.00-5.40 MED[facility] ([facility]) Hemoglobin 12.8 g/dL 12.0-15.5 [facility] ([facility]) Hematocrit 39.5 % 36.0-47.0 [facility] ([facility]) Mean Corpuscular Volume 93.6 fl 80.0-96.0 [facility] ([facility]) Mean Corpuscular HGB Conc 32.4 g/dL 32.0-36.5 MEDE NT ([facility]) Mean Corpuscular Hemoglobin 30.3 pg 27.0-33.0 [place] D[place] ([facility]) Platelet Count, Automated 317 10 150-450 MEDE NT ([facility]) Neutrophils % 68.2 % 36.0-66.0 MED[facility] ([facility]) Red Cell Distribution Width 14.2 % 11.5-14.5 ME DENT ([facility] [facility] Lymph % 23.4 % 24.0-44.0 [facility] ([facility]) Eos % 0.4 % 0.0-3.0 [facility] ([facility]) [place] % 6.9 % 2.0-8.0 [facility] ([facility]) Immature Granulocyte % 0.4 % 0-3.0 [facility] ([facility]) Baso % 0.7 % 0.0-1.0 [facility] ([facility]) Neutrophils # 7.0 10 1.5-8.5 [facility] ([facility]) Nucleated Red Blood Cell % 0.0 % 0-0 [facility] ([facility]) Eos # 0.0 10 0.0-0.5 [facility] ([facility]) [place] # 0.7 10 0.0-0.8 [facility] ([facility]) Lymph # 2.4 10 1.5-5.0 [facility] ([facility]) Baso # 0.1 10 0.0-0.2 [facility] ([facility]) ID Date Data Source [id number] 11/01/2020 06:44:00 PM EDT [facility] ([facility]) Name Value Range Interpretation Code Description Data Viki rce(s) Supporting Document(s) Inr 0.87 [facility] ([facility]) THERAPUTIC HUMAN INR VALUES INDICATIONS NORMAL RANGES PROPHYLAXIS/TREATMENT OF: VENOUS THROMBOSIS 2.0-3.0 PULMONARY EMBOLISM 2.0-3.0 PREVENTION OF SYSTEMIC EMBOLISM FROM: TISSUE HEART VALVES 2.0-3.0 ACUTE MYOCARDIAL INFARCTION 2.0-3.0 VALVULAR HEART DISEASE 2.0-3.0 ATRIAL FIBRILLATION 2.0-3.0 MECHANICAL VALVES(HIGH RISK) 2.5-3.5 RECURRENT MYOCARDIAL INFARCTION 2.5-3.5 Prothrombin Time 12.2 s 12.7-14.5 [facility] ([facility]) Partial Thromboplastin Time 25.9 s 25.9-37.0 [facility] ([facility]) ID Date Data Source [id number] 11/01/2020 10:46:00 AM EDT [facility] ([facility]) Name Value Range Interpretation Code Description Data Viki rce(s) Supporting Document(s) Appearance, Urine Laboratory test result [facility] ([facility]) Color, Urine Laboratory test result [facility] NT ([facility]) PH,Urine 6.0 units 5.0-9.0 [facility]) Protein, Urine Auto Laboratory test result [facility] ([facility]) Specific [place] Urine Auto 1.003 1.002-1.035 [facility] ([facility]) Glucose, Urine (Ua) Auto Laboratory test result [facility] ([facility]) Ketone, Urine Auto Laboratory test result [facility] ([facility]) Urobilinogen, Urine Auto 0.2 mg/dL 0.0-2.0 [facility] T ([facility]) Bilirubin, Urine Auto Laboratory test result [facility] ([facility]) Nitrite, Urine Auto Laboratory test result [facility] ([facility]) Leukocyte Esterase, Urine Auto Laboratory test result [facility] ([facility]) WBC, Urine Auto 4 /HPF 0-3 [facility] ([facility]) Blood, Urine Blood Laboratory test result [facility] ([facility]) Bacteria, Urine Auto Laboratory test result [facility] ([facility]) RBC, Urine Auto 1 /HPF 0-3 [facility] ([facility]) Mucus, Urine Laboratory test result [facility] NT ([facility]) Squamous Epithelial Cell Ur AU 3 /HPF 0-6 [facility] ([facility]) Hyaline Cast, Urine Auto 0 /LPF 0-1 [facility] T ([facility]) ID Date Data Source [id number] 11/01/2020 10:46:00 AM EDT [facility]) Name Value Range Interpretation Code Description Data Viki rce(s) Supporting Document(s) Bacteria identified in Urine by Culture Laboratory test result [facility] ([facility]) FULL REPORT IN LAB NOTES (eCW and [facility] ). NO GROWTH ID Date Data Source [id number] 10/04/2020 01:10:00 PM EDT [facility] ([facility]) Name Value Range Interpretation Code Description Data Viki rce(s) Supporting Document(s) Slide Review Laboratory test result [facility] NT ([facility]) Slide and/or specimen referred to Pathol ogmeghana for review. Results of the review are located in the EMR Pathology module under Peripheral Smear when completed. Reason For Review Laboratory test result [facility] ([facility]) WBC/LEUKEMIA/BLAST Source Laboratory test result [facility] ([facility]) PERIPHERAL SMEAR ID Date Data Source [id number] 10/04/2020 01:10:00 PM EDT [facility] ([facility]) Name Value Range Interpretation Code Description Data Viki rce(s) Supporting Document(s) Bacteria identified in Urine by Culture Laboratory test result [facility] ([facility]) FULL REPORT IN LAB NOTES (eCW and [facility] ). NO GROWTH ID Date Data Source [id number] 10/04/2020 12:42:00 PM EDT [facility] ([facility]) Name Value Range Interpretation Code Description Data Viki rce(s) Supporting Document(s) Surgical pathology study Laboratory test result [facility] ([facility]) 10/05/2020 - 0842 PERPHERAL SMEAR REVIEW Peripheral smear: Leukocytosis associated with an increased in neutrophils. Erythrocytes appear normal in number and are overall normochromic. Nucleated red cells are not seen. Platelet count within normal limits. No blast forms are identified. 10/05/2020 - 42 Signed LUI DONNELLY MD 10/05/2020 0843 ID Date Data Source [id number] 10/04/2020 12:42:00 PM EDT [facility] ([facility]) Name Value Range Interpretation Code Description Data Viki rce(s) Supporting Document(s) Urine PH 6.5 units 5.0-9.0 [facility]) Urine Appearance Laboratory test result Abnormal (applies to non-numeric results) [facility] ([facility]) Urine Color Laboratory test result [facility] T ([facility]) Urine Blood Laboratory test result Abnormal (applies to non-numeric results) [facility] ([facility]) Urine Leukocytes Laboratory test result Abnormal (applies to non-numeric results) [facility] ([facility]) Specific gravity of Urine 1.005 1.005-1.030 [place] [facility] ([facility]) Urine Protein Laboratory test result 0-0 [facility] ([facility]) Glucose [Presence] in Urine Laboratory test result [facility] ([facility]) Urine Nitrite Laboratory test result [facility] ([facility]) Urine Urobilinogen 0.2 mg/dL 0.2-1.0 [facility] Urine Ketone Laboratory test result [facility] [place] [place] [facility] ([facility]) Bilirubin.total [Mass/volume] in Serum or Plasma Laboratory test resu lt [facility] ([facility]) ID Date Data Source [id number] 10/04/2020 12:42:00 PM EDT [facility] ([facility]) Name Value Range Interpretation Code Description Data Viki rce(s) Supporting Document(s) Glucose [Mass/volume] in Serum or Plasma 84 mg/dL 74-99 [facility] ([facility]) 100-125 mg/dL PRE-DIABETES/FASTING >126 mg/dL DIABETES/FASTING Sodium [Moles/volume] in Serum or Plasma 133 meq/L 136-145 [facility] ([facility]) Urea nitrogen [Mass/volume] in Serum or Plasma 9 mg/dL 7-18 [facility]) Creatinine 0.8 mg/dL 0.6-1.3 [facility] Carbon dioxide, total [Moles/volume] in Serum or Plasma 30 meq/L 21 -32 [facility] ([facility]) Chloride [Moles/volume] in Serum or Plasma 97 meq/L 98-107 [facility] ([facility]) Calcium [Mass/volume] in Serum or Plasma 9.0 mg/dL 8.5-10.1 [facility] ([facility]) Potassium [Moles/volume] in Serum or Plasma 3.7 meq/L 3.5-5.1 [facility] ([facility]) Glomerular filtration rate/1.73 sq M pre dicted among non-blacks [Volume Rate/Area] in Serum or Plasma by Creatinine-based formula (MDRD) Laboratory test result [facility] ([facility] ) Glomerular filtration rate/1.73 sq M pre dicted among blacks [Volume Rate/Area] in Serum or Plasma by Creatinine-based formula (MDRD) Laboratory test result [facility] ([facility]) <content>CHRONIC KIDNEY DISEASE STAGING PER NKF</content>
<content></content>
<content>STAGE I & II GFR >= 60 NORMAL TO MILDLY DECREASED</content>
<content>STAGE III GFR 30-59 MODERATELY DECREASED</content>
<content>STAGE IV GFR 15-29 SEVERELY DECREASED</content>
<content>STAGE V GFR <15 VERY LITTLE GFR LEFT</content>
<content>ESRD GFR <15 ON ACTIVITIES ATTENDANT</content>
<content></content> ID Date Data Source [id number] 10/04/2020 12:42:00 PM EDT [facility] ([facility]) Name Value Range Interpretation Code Description Data Viki rce(s) Supporting Document(s) Erythrocytes [#/volume] in Blood by Automated count 4.56 x10*6/UL 4.2 0-6.30 [facility] ([facility]) Leukocytes [#/volume] in Blood by Automated count 13.3 x10*3/UL 4.1-1 0.9 [facility] ([facility]) NOTE: RESULT VERIFIED. Hemoglobin [Mass/volume] in Blood 13.9 g/dL 12.0-18.0 [facility] ([facility]) MCV 90.1 fL 80.0-97.0 [facility] ([facility]) MCH 30.5 pg 26.0-32.0 [facility] ([facility]) Hematocrit [Volume Fraction] of Blood by Automated count 41.1 % 3 7.0-51.0 [facility] ([facility]) Erythrocyte distribution width [Ratio] by Automated count 13.4 % 11.6-13.7 [facility] ([facility]) Platelets [#/volume] in Blood by Automated count 386 x10*3/UL 140-440 [facility] ([facility]) MCHC 33.8 g/dL 31.0-38.0 [facility]) Mid % 5.2 % 1.7-9.3 [facility]) MPV 7.7 FL 7.8-11.0 [facility]) Lymph % 16.3 % 10.0-58.5 [facility]) Mid # 0.8 x10*3/UL 0.1-0.6 [facility] ([facility]) Neut % 78.5 % 37.0-92.0 [facility]) Lymph # 2.1 x10*3/UL 0.6-4.1 [facility] ([facility]) Neut # 10.4 x10*3/UL 2.0-7.8 [facility] ([facility]) ID Date Data Source [id number] 09/30/2020 11:39:00 AM EDT [facility] ([facility]) Name Value Range Interpretation Code Description Data Viki rce(s) Supporting Document(s) Thyrotropin [Units/volume] in Serum or Plasma by Detec tion limit <= 0.05 mIU/L 0.38 uIU/mL 0.36-3.74 [facility] ([facility] ) Thyroxine (T4) free [Mass/volume] in Serum or Plasma 1.21 ng/dL 0.76- 1.46 [facility] ([facility]) ID Date Data Source [id number] 09/30/2020 11:39:00 AM EDT [facility] ([facility]) Name Value Range Interpretation Code Description Data Viki rce(s) Supporting Document(s) Cholesterol [Mass/volume] in Serum or Plasma 163 mg/dL 131-200 [facility] ([facility]) Cholesterol in HDL [Mass/volume] in Serum or Plasma 72 mg/dL 35-60 [facility] ([facility]) Triglyceride [Mass/volume] in Serum or Plasma 93 mg/dL 30-150 [facility] ([facility]) Cholesterol in LDL [Mass/volume] in Serum or Plasma by calcu lation 72 CALC 50-159 [facility] ([facility]) ID Date Data Source [id number] 09/30/2020 11:39:00 AM EDT [facility] ([facility]) Name Value Range Interpretation Code Description Data Viki rce(s) Supporting Document(s) Glucose [Mass/volume] in Serum or Plasma 103 mg/dL 74-99 [facility] ([facility]) 100-125 mg/dL PRE-DIABETES/FASTING >126 mg/dL DIABETES/FASTING Urea nitrogen [Mass/volume] in Serum or Plasma 8 mg/dL 7-18 [facility] ([facility]) Creatinine 0.9 mg/dL 0.6-1.3 [facility] ([facility]) Sodium [Moles/volume] in Serum or Plasma 131 meq/L 136-145 [facility] ([facility]) NOTE: RESULT VERIFIED. Chloride [Moles/volume] in Serum or Plasma 97 meq/L 98-107 [facility] ([facility]) Potassium [Moles/volume] in Serum or Plasma 4.3 meq/L 3.5-5.1 [facility] ([facility]) Calcium [Mass/volume] in Serum or Plasma 9.7 mg/dL 8.5-10.1 [facility] ([facility]) Carbon dioxide, total [Moles/volume] in Serum or Plasma 24 meq/L 21 -32 [facility] ([facility]) Total Bilirubin 0.5 mg/dL 0.2-1.0 [facility] ([facility]) Alkaline phosphatase isoenzyme [Units/volume] in Serum or Pl asma 109 mg/dL 46-116 [facility] ([facility]) Aspartate aminotransferase [Enzymatic activity/volume] in Serum or Plasma 23 U/L 15-37 [facility] ([facility] ) Proteinase 3 Ab [Units/volume] in Serum 7.0 g/dL 6.4-8.2 [facility] ([facility]) Albumin [Mass/volume] in Serum or Plasma 3.9 g/dL 3.4-5.0 [facility] ([facility]) Alanine aminotransferase [Enzymatic activity/volume] in Seru m or Plasma 31 U/L 12-78 [facility] ([facility]) A/G Ratio 1.26 CALC 1.00-1.90 [facility] ([facility]) Glomerular filtration rate/1.73 sq M pre dicted among non-blacks [Volume Rate/Area] in Serum or Plasma by Creatinine-based formula (MDRD) Laboratory test result [facility] ([facility] ) Glomerular filtration rate/1.73 sq M pre dicted among blacks [Volume Rate/Area] in Serum or Plasma by Creatinine-based formula (MDRD) Laboratory test result [facility] ([facility]) <content>CHRONIC KIDNEY DISEASE STAGING PER NKF</content>
<content></content>
<content>STAGE I & II GFR >= 60 NORMAL TO MILDLY DECREASED</content>
<content>STAGE III GFR 30-59 MODERATELY DECREASED</content>
<content>STAGE IV GFR 15-29 SEVERELY DECREASED</content>
<content>STAGE V GFR <15 VERY LITTLE GFR LEFT</content>
<content>ESRD GFR <15 ON ACTIVITIES ATTENDANT</content>
<content></content> ID Date Data Source [id number] 09/30/2020 11:39:00 AM EDT [facility] ([facility]) Name Value Range Interpretation Code Description Data Viki rce(s) Supporting Document(s) Leukocytes [#/volume] in Blood by Automated count 13.2 x10*3/UL 4.1-1 0.9 [facility] ([facility]) NOTE: RESULT VERIFIED. Hemoglobin [Mass/volume] in Blood 13.3 g/dL 12.0-18.0 [facility] ([facility]) Erythrocytes [#/volume] in Blood by Automated count 4.37 x10*6/UL 4.2 0-6.30 [facility] ([facility]) MCV 90.4 fL 80.0-97.0 [facility] ([facility]) Hematocrit [Volume Fraction] of Blood by Automated count 39.6 % 3 7.0-51.0 [facility] ([facility]) MCH 30.4 pg 26.0-32.0 [facility] ([facility]) Erythrocyte distribution width [Ratio] by Automated count 13.7 % 11.6-13.7 [facility] ([facility]) Platelets [#/volume] in Blood by Automated count 381 x10*3/UL 140-440 [facility] ([facility]) MCHC 33.6 g/dL 31.0-38.0 [facility]) MPV 7.9 FL 7.8-11.0 [facility] Lymph % 8.1 % 10.0-58.5 [facility] Mid % 2.9 % 1.7-9.3 [facility] Lymph # 1.0 x10*3/UL 0.6-4.1 [facility] ([facility]) Neut % 89.0 % 37.0-92.0 [facility] Neut # 11.8 x10*3/UL 2.0-7.8 [facility] ([facility]) Mid # 0.4 x10*3/UL 0.1-0.6 [facility] ([facility]) ID Date Data Source [id number] 07/10/2020 11:30:00 AM EDT [facility] Name Value Range Interpretation Code Description Data Viki rce(s) Supporting Document(s) SARS-CoV-2 (COVID-19) RNA [Presence] in Respiratory specimen by BRO with probe detection Not Detected [facility] This lab was ordered by [facility] and reported by [employer] ID Date Data Source [id number] 06/22/2020 03:28:[address] [facility] Name Value Range Interpretation Code Description Data Viki rce(s) Supporting Document(s) EKG [facility] HCWILu3jAyDTEtZso0YsNaLkTHEtKY3xirq4C9L7bSYnY7JctKBec4zdQ0SyZ9GhOVTsPUCFRI8PvWPg jb2 [file] +5dSs/Pharmacy Picking Tech/7DQg6NdK9Idz/8JtzIZ2vFPo4ZOt7lGM p8b3mp8nY8Cjjh7vnADppGnLN58j4pR4luJSKomuopKtXx9o8dT7odZLVvnirgRSk72Jyc7Rrr1TRLb0 0WId95mquMzXve1U6pPnzZ5xzHhXhk8nyjUsGfb2RZe4UwQDCv/ZtGW3olHgNpvxqAScM+hm7EkAs36w aWIkiwReWtWx/Eh5aU+EfZqxwGy54a3YAahLJJhKRS kicZKAHMYTWceiTj/Utoa0gdLKQPNL6bwJF8SIElwqqfyYY6vX2UFQn40fRMdjyh7V042AS86iDKwafA M/WG59DaPTHdxLQDH1nOVPZe4tFjwVTYWx1nSo+ZkgIoc4OnWRjQmcKMVT7NMRL3KllAyEbo2V3yIYid R8Gg/zgwHQtUx0TzsgeXSuVdpdGZ6Qh0mjhPqcKtsD AEwlsNieJXFE0sEDajpLLVUNRXE5h//j//O//rv7LJH/jMr/+v/99//6/8r/+7//9f//7//4X9WX+9/7 Rd6+3Bf/7+rL/Q/F7Djxw1l76qxI/EH1n7C5z5rCk/bmqN6vVhLIb4sn8zZ8u7c+tZYdhRV0r6/cE/X5 lRv1+ZW76/JK0cQEvHU/7VQCEDA7MEk1Vx9gVYkXcB ksz1ZlqpxOyOjdF+LqiI7ExlZ1wqi4l1LP+Gcgguasn2f2BzALL/SILkJnEY1dnK7qW+6pz6/cU5//k/ tPv/q6UWunMF/g/MNS+Pxh/XKb1obDN7hLEt6c7vkpR6V4k3ioEVVqvxzsHLD9jVEplNy2DcFZIIf3Gb +q468Nbs60I0doJtutsWlfuPYFGMT09XIdcZM8tEB/ z/xWensQ1qPYuNJje+0QcG29zOAm0TgykXbDfmnm9naCu48c+WHFd+O7MFmpRciu/m9cMmCzcOPd0pwY ebgjyam3hBI1W6cSN3xu675V+nSi2JS7rii6YXqmWycVKOc6YzdIkHlqR+QuXO+y3xy+Wx89t+/ORz+P d+Pjn8P/rtL+cK9j/vCqz6/cdT/7B3ir717qgw4+5d 6flLrN9f++sXa/crM+/6IjYHf3v7e/cLmGGziBz+A/e/ADXmcRHwcOWlAnJCJ10usk1QLOrMGPh9g2ty w6nrjydaj9ob/uxg/jHdv0epyDy6seMKh7Jzjsidf4+t16tzV+ENXB3Z1b7ood8m/8b2LqqbX2qJI/C7 kHcg/pLyyvy8O7nr0d9nA13o1yTx/q2k/iO+enj5W9 ckxfmcEek8Mdp4G+n/apSnA86v4ZsdH33+KRb74X4uqb5n4bM8/fvb4bF+04SwjXve7/dapft/18Kit7 UwT6315+uOC1qeXrEp+iPp/rNRl/w/XLGzIHmyXLlpZ59BKtjESy68+YIbJQvKPVtPQrOPD2tXGJ5hIp Idls9ad37e5waaU7eURn/G/i8/VijSoyhhPuzPUo1e 4kf5NYcfxj/2temV1rAEvvRqE3ZKrihGFqUuiKkKcM8+/gfGgdmk5Ef23dXf6xZ/NZfzHV9wIIVV3wT0 lAVBonvVcO0BFkqSnJICtLioMv2wmjngm+lcG/MvhXBv/CDqEU0roV8u/8qwX/pv3ye9ruiRf8aA79xB bzRz61pnpSGid8SsuKhID62S2H/VcuNgtjNmjohV9Z YMjVGeelc3+FFsBGY87z4CoFg+b+Cwa4jToILd+OPRFos6ejmGk4y9BZp4VH+Srinivas/JdseN94kGq/6vpU azk+D3w+/tUq/8rrO+xkd3ora/btsVz+FtPwr6g19ZyZQziRs7/qqiC1QhkkyV25olxq0a2/8fGOJr2g Yrrt8Jx2ov91F8udSAYZ2zdeo+Qwp7K1wVkfRIxbu1 /N/+u+5U8QEKnRL3ATs+AEPoPLXjWWkZWQW/xl1WRH0JNwxQwB2QNM0i3gfchF0aw/F3X4twSOk6tz// JmMyfhsj1j1igT1jf68lj+e87c0L/LlXUj/y73+mcUl0fzh2x5c/vPN+oe035bjw7z0G0stdd//aUb8m 9/ycteXf/KBsn3d2fmF7y409PMdnkhuMadyK6ouJEj uYyf4/IpMWaKfR7KZEfCCOuEOhSxrw7jvFNm2914N73XIUDKETFZlo6fLCLLba0aYfs6eU2Q39bhqScz U2V3eIzXStPu8PM1VxoqhR3b3oBm4pcxaI/ADhzAuL+O++eoR1t3bTEKpgcx0Nk9cd2lb7/l8K8c/pVH As/71/fEcxz+le95H/Michelle+r0ATtfOZ/8bwLP+8jhXz n8K4d/8FslH10ao851nPLVsxBv5QTnkSLyjo/7EWAFNmDILf+gtOVl4DKuccQgMrJ0p8W/LtGqWs5OyC 8K+FcB/zzbYaJ6l0Q9jeMzedUte6qiXO/lEXXzyo189X6G71ie1TXWBPzFMJEYqSZ9hMNVTvvyoL7IWz pX4qTJIdZUvckuB4Pod/p8/+IZRKJJdZojTe2ipv+6 MZYo/6qx/nySKP/K6/P1iy9F+Xu2iHXc/JxYGziBz+Dyr+47K8q/OxVSo5lN29bkx2K+d+AYfcq/unGw 8ImbhU/3DTO0zVi2wzNJXdpZwN9T+sml6kisEdO5n2w/brGHYtYzIPWYWuWQJoUFujD02YLeptZ13w5a D0MWEcCGhdCuS948JJElB9VTn+t67/fP+JNxBBjjfG ie2dix620CORkAM4l6TO7RSlmKoz/AwDX1L6t7y09cV065/Jf5Iu397Z+PI7zwLzx0pBOtV014RkIV5c /LHwV6aCYtvIRM3mCKXEzMK/0MpnXmIOOIa2bNQ41LkcnhVen8gdl7vpj0sxf1ppttq0139Ny6nnH+tR G/3qjxfoZegp90nIo8A0Sy8CtC1odBABvZHQsLS/DY 571mHbpXAmNe+QMswPM+2j7vo+4G8TCNDr0k+7w9gc/gsleNBXjWvztm/btjATtwAG/iSH49jvT/uLcA Q+3u71yk1nwsl/L3JwNY86n51i9w/+8ZnGOfN/dbaCbaDOCT6TUKjQZChCv3iK4pyL3JjjQ8QS9M5QJ6 V8PN7Z5DR7fWSz3kEHzozC2E5/Bj5TO1416687AETj [file] ++ipn6D1i9e1fnITt8i6bz+35/0/3652j7/tUd43xE iZnPbu+3WMa+P7z8/zHI21LIX6vn6y4wC6SGc9+4vaflTlecVBo/OkPW9IA255dNTT/NamPXJ/uTQ3f7 v7vP/9j4x2MscFyF9O7ZAH5UU2n4cx9woVdesPak11F0h5OT20Qw5n2rD66/398+/aNCp4tkh47jChzh XpUaWhOawci04YRnqa0MexAeRm9pkpo56w4d+Can3c 32/bMLZyWUX/j5y/jesi/GtZNmUarl3YA9x+/t9jE55Bg97PZ6IAAGLtN6okya/tvA2qzS2jpoAjXnpdxH PH3+5Tf0z7L/Qw1gz3T4ya7ziZxy2PuhdSZc1abV3pHVrmhoKytCWcOG5TJI5ik5PqUnU3TQDrl2CcKM gqEUj1xESrKMptwyEue9VkqjlbN9Gxi7GzPjGiZNLj JtZkNax8DQOoBiJ8tXGaCfIeBPTeV0FqCCWzYrL3XmIjSTNZOK5VZJDfnaXzWvNiMRY+CkFnEK0lggmc YSEnf5MnGXnkYKyjZJLvZ0S1eMhpNAIwV0HeiN02WRGtS9FnnuF5AMJ1YWGsTsClKAGowDMvLCEpNHU+ NwBiYY5yzznkACHrd9ChAYzxKRZ9fG6eVMpMGTUREA lRRNzsPqC4h22xrpXMMSBkEAZfRU0DnrFmcUqnviGfxPSxRXG8AhMzASS6FCTbSLR9PRNUQDVrAVTzAD YhIGWtI9DuaZquZKjQNHEEFDkEBUdbDhIen2K3VQHvlzHIEevWKPeyLoICCMMpLKMtFhW0FLArKAWvA8 ByciXwpGAeHZLZGEgmMpatYGZaqH1gqXdyX3OnLUE3 h0NoAV0VS2OuRDSyOXLUGGB8x6BrELRvgqjomrstRkGwPVJmIXBuERXlCB5Roa2orNWitwZpTGOMSNcy HdufEC0yaWqjduouN4DzqMMeYUR+OdPdHM2vzt6+DwWjNRKfQnz7WGAyNSjzVAIySDQwMLGsZ4goFMTk RmRxMCCpXaDmFK3Jf0ZamGZxZb1fzqCyHkgMtFSlTm vhSJVhXRSrLLTyFrQEMMTwJORuVNOhARY6CGRyORBoEMrjNZIaAYF0QXz4BMOfBDQiHV7iSbVwVYTyRO s5KKSoTPFaEEBwykQWIXLkCSV0WAkwNJKhQPQmDJCyRAqvKMQpWLUkCYIoCPW3ILT0CMUuAhGxKFNiLK TkAHOjWUSoFRCpwnHHFBKcVWZnMXB5TYUiKFHnVEJf RJosWERnMCSqFYtdIHBdCRZjKE6nVnPdLHYuDTDyEFrcMQGxYTGkeqRTTVPeGJIrBALzAOQrVCOpRZJa DCtoNXIlWMYdWNZnUTIeRITfQY0pVfOgZIUlLLA6KWJoHXDoEDGukfHGEPAmNKSxWKc8TAMnVZTmZPHd WNkjUZFvFGZcWJU9QQToRRKdVO9xHcTdNXJqEAS4Ry GnYXAeAJYhupALKATqKKKyTPB8VjDuGWAwVXBuCRnaSAHlYAXqJUdqDOPhJRUnHT1yOtPoMVMuOSDgFY krEKVwOHMpvfSQDTWkZQGkNXYbPmKyBIDiKAQtQHeqXSBhDBP7IhQaJVRkGNFiQC6pBdXgRXSbZDI5QR kgMDAwMDAgbiAKMDAwMDAwMTczNCAwMDAwBuIAow DMUiDVStNVT2MRAhFHYmQO2bNlMiFHTzBTSwTPAkYmQ4TdHpXsDUwQHwyGkbbtj7PMxmT6c9GZMcLIcz AC4itrUqEPYyLybcAd0elLO7QKWeKsyZXt4Zw7EgvcV8dsZfBxK7KvNqVtIhMD7E ID Date Data Source [id number] 06/22/2020 01:40:[address] [facility] Name Value Range Interpretation Code Description Data Viki rce(s) Supporting Document(s) &PDF [facility] TPXOVs9oZzGOSmKz30/FAQwsKKAao3XqOJdbODj1OGixFQWxH6HokZsmGNiNFWpSBWvMPfJZRWMqHSL9 waW [file] stoker [file] 3HMqDHWRE5MFFPI1lx+SEM MANAGER+oh0F6zNCeruve1ha/azKA4VrsJWZO2YtE6GbgnhRWyY1sW7vxPo08j3eTh [file] yjx2GyJ4eLINgLBf3aoERIOA3QN3XaCscUvX+KIjSXOK+vVq3kDpz4IaxqjaILaUyeEHFn0SmM+project management director/d [file] XbnyOvLuKG6RZy4AEiU5UHB7uQPjYf7PZGKcEGRZTqLdEA0NNNb= ID Date Data Source [id number] 06/22/2020 12:40:[address] [facility] Name Value Range Interpretation Code Description Data Viki rce(s) Supporting Document(s) EKG [facility] TBUGEv8sZzPYHwIbu3UvYtKjUIVnWX8vknd9H4Q6rUYvJ2WjtADyu6dlB0QgE8HfNEPuUPPRHN3LbXGh jb2 [file] q6E6qvZDTDamRoQ17dhYgMp8fwym5waJt4hvgJ+MfDLJE/D4zq7k8wBBc//5Fp4/0/znv//care center manager//8ZePP f//r58DP//394w00I2/917/99b/87f/40/z587f/+6//9re/4By1f8ALc5Qeg//7t3/2f0dqc94s//zz [file] t/Sb/7oSbUhYZQ+xzHHemM77kajZny/c/yu5dM [file] HfRapBFv8Qo0OcdaW7ndLlMwPgFVskIgNbIF3A ID Date Data Source [id number] 06/18/2020 07:38:00 AM EDT [facility] FASTING: UNKNOWNReceived: 06/18/2020 at 07:10:00 QPT: [facility], [address], [address] [place] [address], [phone], Efra Mendez MD Received: 06/18/2020 at 07:10:00 QPT : [facility], [address], [address] [place] [address], [phone], Efra Mendez MD Received: 06/18/2020 at 07:10:00 QPT : [facility], [address], [address] [place] [address], [phone], Efra Mendez MD Name Value Range Interpretation Code Description Data Viki rce(s) Supporting Document(s) Cholesterol [Mass/volume] in Serum or Plasma 152 mg/dL <20 0 Normal (applies to non-numeric results) [facility] Cholesterol in HDL [Mass/volume] in Serum or Plasma 57 mg/dL > OR = 50 Normal (applies to non-numeric results) [facility] Triglyceride [Mass/volume] in Serum or Plasma 131 mg/dL <1 50 Normal (applies to non-numeric results) [facility] Cholesterol in LDL [Mass/volume] in Serum or Plasma by calculation 74 mg/dL (calc) Normal (applies to non-numeric results) [facility] Reference range: <100Desirable range <10 0 mg/dL for primary prevention;<70 mg/dL for patients with CHD or diabetic patientswith > or = 2 CHD risk factors.LDL-C is now calculated using the Jadyncalculation, which is a validated novel method providingbetter accuracy than the Friedewald equation in theestimation of LDL-C.Sergey SS et al. MARYCARMEN. 2013;310(19): 2489-4169(http://education.iSoccer.CityCiv/faq/YXG416) Cholesterol.total/Cholesterol in HDL [Mass Ratio] in Serum o r Plasma 2.7 (calc) <5.0 Normal (applies to non-numeric results) [facility] Cholesterol non HDL [Mass/volume] in Serum or Plasma 95 mg/dL (c alc) <130 Normal (applies to non-numeric results) [facility] For patients with diabetes plus 1 major ASCVD riskfactor, treating to a non-HDL-C goal of <100 mg/dL(LDL-C of <70 mg/dL) is considered a therapeuticoption. ID Date Data Source [id number] 06/18/2020 07:38:00 AM EDT [facility] FASTING: UNKNOWNReceived: 06/18/2020 at 07:10:00 QPT: [facility], [address], [address] [place], [phone], Efra Mendez MD Received: 06/18/2020 at 07:10:00 QPT : [facility] [facility], [address], [address] [place], [address], Efra Mendez MD Received: 06/18/2020 at 07:10:00 QPT : [facility], [address], [address] [place], [address], Efra Mendez MD Name Value Range Interpretation Code Description Data Viki rce(s) Supporting Document(s) Glucose [Mass/volume] in Serum or Plasma 95 mg/dL 65-99 Normal (applies to non- numeric results) [facility] Fasting reference interval Urea nitrogen [Mass/volume] in Serum or Plasma 8 mg/dL 7 -25 Normal (applies to non-numeric results) [facility] Creatinine [Mass/volume] in Serum or Plasma 0.79 mg/dL 0.50 -0.99 Normal (applies to non-numeric results) [facility] For patients >49 years of age, the refer ence limitfor Creatinine is approximately 13% higher for peopleidentified as -Australian. eGFR NON-AFR. FRENCH 77 mL/min/1.73m2 > OR = 60 Normal ( applies to non-numeric results) [facility] eGFR 90 mL/min/1.73m2 > OR = 60 Normal (a pplies to non-numeric results) [facility] Urea nitrogen/Creatinine [Mass Ratio] in Serum or Plasma NOT APPLICABLE (calc) 6-22 [facility] Sodium [Moles/volume] in Serum or Plasma 134 mmol/L 135-146 Below low normal [facility] Potassium [Moles/volume] in Serum or Plasma 4.1 mmol/L 3.5- 5.3 Normal (applies to non-numeric results) [facility] Chloride [Moles/volume] in Serum or Plasma 101 mmol/L 98-11 0 Normal (applies to non-numeric results) [facility] Carbon dioxide, total [Moles/volume] in Serum or Plasma 26 mmol/ L 20-32 Normal (applies to non-numeric results) [facility] Calcium [Mass/volume] in Serum or Plasma 9.1 mg/dL 8.6-10. 4 Normal (applies to non-numeric results) [facility] ID Date Data Source [id number] 06/18/2020 07:38:00 AM EDT [facility] FASTING: UNKNOWNReceived: 06/18/2020 at 07:10:00 QPT: [facility], [address], [address] [place], [address], Efra Mendez MD Received: 06/18/2020 at 07:10:00 QPT : [facility], [address], [address] [place], [address], Efra Mendez MD Received: 06/18/2020 at 07:10:00 QPT : [facility], [address], [address] [place], [address], Efra Mendez MD Name Value Range Interpretation Code Description Data Viki rce(s) Supporting Document(s) Leukocytes [#/volume] in Blood by Automated count 8.7 Thousand/u L 3.8-10.8 Normal (applies to non-numeric results) [facility] Erythrocytes [#/volume] in Blood by Automated count 4.24 Million /uL 3.80-5.10 Normal (applies to non-numeric results) [facility] Hemoglobin [Mass/volume] in Blood 13.1 g/dL 11.7-15.5 Normal (applies to non- numeric results) [facility] Hematocrit [Volume Fraction] of Blood by Automated count 37.8 % 35.0-45.0 Normal (applies to non-numeric results) [facility] Erythrocyte mean corpuscular volume [Entitic volume] by Auto mated count 89.2 fL 80.0-100.0 Normal (applies to non-numeric results) [facility] Erythrocyte mean corpuscular hemoglobin [Entitic mass] by Automated count 30.9 pg 27.0-33.0 Normal (applies to non-numeric results) [facility] Erythrocyte mean corpuscular hemoglobin concentration [Mass/volume] by Automated count 34.7 g/dL 32.0-36.0 Normal (applies to non-numeric results) [facility] Erythrocyte distribution width [Ratio] by Automated count 13.3 % 11.0-15.0 Normal (applies to non-numeric results) [facility] Platelets [#/volume] in Blood by Automated count 319 Thousand/uL 140-400 Normal (applies to non-numeric results) [facility] Platelet mean volume [Entitic volume] in Blood by Love 10. 0 fL 7.5-12.5 Normal (applies to non-numeric results) [facility] Neutrophils [#/volume] in Blood by Automated count 5725 cells/uL 3406-9482 Normal (applies to non-numeric results) [facility] Lymphocytes [#/volume] in Blood by Automated count 2192 cells/uL 850-3900 Normal (applies to non-numeric results) [facility] Monocytes [#/volume] in Blood by Automated count 661 cells/uL 200-950 Normal (applies to non-numeric results) [facility] Eosinophils [#/volume] in Blood by Automated count 61 cells/uL 15-500 Normal (applies to non-numeric results) [facility] Basophils [#/volume] in Blood by Automated count 61 cells/uL 0-200 Normal (applies to non-numeric results) [facility] Neutrophils/100 leukocytes in Blood by Automated count 65.8 % 38-80 Normal (applies to non-numeric results) [facility] Lymphocytes/100 leukocytes in Blood by Automated count 25.2 % 15-49 Normal (applies to non-numeric results) [facility] Monocytes/100 leukocytes in Blood by Automated count 7.6 % 0-13 Normal (applies to non-numeric results) [facility] Eosinophils/100 leukocytes in Blood by Automated count 0.7 % 0-8 Normal (applies to non-numeric results) [facility] Basophils/100 leukocytes in Blood by Automated count 0.7 % 0-2 Normal (applies to non-numeric results) [facility] ID Date Data Source [id number] 06/17/2020 11:30:00 AM EDT [facility] ([facility]) Name Value Range Interpretation Code Description Data Viki rce(s) Supporting Document(s) Coronavirus 2019 Nasopharygeal Laboratory test result [facility]) ASSAY INFORMATION: Real Time RT-PCR NOTE: The COVID-19 assay has been cleared by the U.S. Food and Drug Administration under the Emergency Use Authorization (EUA). [employer] and [employer] are designated as high complexity laboratories by the Clinical Laboratory Improvement Amendments of 1988(CLIA) and are qualified to perform this test. Not Detected ID Date Data Source [id number] 06/17/2020 11:30:00 AM EDT [facility] Name Value Range Interpretation Code Description Data Viki rce(s) Supporting Document(s) SARS-CoV-2 (COVID-19) RNA [Presence] in Respiratory specimen by BRO with probe detection Not Detected [facility] This lab was ordered by [facility] and reported by [employer]. ID Date Data Source [id number] 06/15/2020 07:10:[address] [facility] Name Value Range Interpretation Code Description Data Viki rce(s) Supporting Document(s) &PDF [facility] PFSJVz5bOsLGCwXl68/DGPauZKNhr3AoTLvvRIl4TBiuCAIlW5WsaCluAYeRZGrHYSxHEnRVXLZdKMW7 FcG [file] AgICAgICAgICAgICAgICAgICAgICAgICAgICAgICAg DEJvIDXeTPBiJDRrPAVyBLPaRFCfXXXoYLFhFRHxEXUvQWPsLAWoOFSfSOPlHBUsSHOoPNXjMT4CXRWh ICAgICAgICAgICAgICAgICAgICAgICAgICAgICAgICAgICAgICAgICAgICAgICAgICAgICAgICAgICAg ICAgICAgICAgICAgICAgICAgICAgICAgICAgICAgIC AhQYRfZI4XPUBfUMIdUBXeKIDlSRSoHUPwJCBlAZSpRGUmFSJrIIDoRMSuWUMeWBXqQEBvSGMnWXIqVR TwGMAlBCTfXMHiKVPwIHVlTDAjNUQuYNCdZCIjQMGlGJKkQSMaOPPoQOZcRHBgKY2AMLHzOYUkAQZwFR AgICAgICAgICAgICAgICAgICAgICAgICAgICAgICAg JFXwXGCvDEOiGGUkNMZeEISuMAYsCOPvKSBvLDXuYOBcORXrGNKiVWLwHQMfAPWrADTbHXHnHTDkTV3R ICAgICAgICAgICAgICAgICAgICAgICAgICAgICAgICAgICAgICAgICAgICAgICAgICAgICAgICAgICAg ICAgICAgICAgICAgICAgICAgICAgICAgICAgICAgIC YsFZYaCBRkGG5RFVWuGANlFMQoTRKaUSFgDNFbAMAiZFVjLKZmOMMeLIRaXZHlADBcOGCuWPRmZCMvML YsGUXsSPTtHCGkDDDtMQUaXZKvCBIhYYRkPQQsKQXwZIBwLJPhTBMvWWSqILVzNVWeLO6AVKGtOWYxSH AgICAgICAgICAgICAgICAgICAgICAgICAgICAgICAg ICAgICAgICAgICAgICAgICAgICAgICAgICAgICAgICAgICAgICAgICAgICAgICAgICAgICAgICAgICAg WV1OJEUyTLPxKTWaBFFxAXJuSEWzUDUxCJQqKCEdRIYoEOQzJUZfTRSgMXOuROKgKKFxAJCuKSUlBLVk ICAgICAgICAgICAgICAgICAgICAgICAgICAgICAgIC QsJJRnZKKeILUfHG4XZHNgWZKoLAFpMTItMNTrQYExGYIkVWWvIDIjLOPrPCJlALFrACFtVODfHCQlUQ XtQGApBQTxJSLvXBYoLZRdQUIuZYPkQXUjPLJjPJFfUUOnOQXvCPZjUKKxGIPmMKSuDBMoJK5UBW57uS Aop2C3EHCbVD6aclt/Wm3ZGNdcqmTbwLAtUW9XNbMu VR1xnc3BVzHqOI9bmu0SJRsKDeYoZ6N2nQLgIIEgTGXZUbYgM08mKSrdIa55JWmnXHVsMoUcLHx7Fg8F UgSyW3fgJCBuMgD3XNLmEjI5VBEhCgYcZVzsCV5Fj7EmzNGoUOq+Jw5IME1tx1JyVZkcVQIqJS5woj1T SMmOPtKlZ0B9eCPvQ4O5WPulHr4PLGHsTFKaCuFxZC YAFQukTO3GWQ8ytjO0IC6CdNUgWJCoJDEajSPrBXt6N41mkIYiAQjhYS2RAGD+Bryan+Km6GRKDyQJJmDV KvXyQbUQFQGtKhK64yzLTkIVRaZBR1DJWqLu9YCTJvQ8TsuhCisSbnukJfBRYpDFSXRV4TOHoizjXnrN NltGmpOL58hDmqGC0AVh1CCfGlBZ2cey9SgASfSp9S YGVzNM6ZEIZyNUXdTTJyOFK9TQUjHlIsRSzxNPEyVLYfUII5SQPcWTExHY8ITqLvUDJfDZRoYYGaKMWn CMJmmz3PLOMlJBNjGTh1JmTcPFRhJFDnPWhvHNItSHCoKEupOTCtKKIgHC2JElSnEKJhCDC9MYhpNOWx GZDifh6JZXGsLXYjSUX7JZDeNIRuLUCfPWsyLZEqIR W2LpG3LUQmCOAdGQ2GQtVmRMIbCIE9AiQgBRQnAQRmwu3TJNApQKWnLabxHRQlKZVoMHDzOXiuCGFlPK F3BCL5MJMcRUXyYZ4UGvRuHNLfPMyfGACaIJFfQLWczf4AHKNqNFXcAYM9BSPpZNJgLYUjRIwfDSJkRX P1NjT0RKGaWNRmMN1FSpUwJHVlULx1WKMxFFBgFLEp cg5CPSEtYWCbZPQvIeXkXNZoOEFuHGxzSIAqYFD2ZiL6FSXgQRAoSA9UGnLlIFOzUVr2ZNzuUJAzLTQs oi4ESFLdSMZgXSq2NbXxRTGbDDEzPFnqUEBmMESmXLM1PDEoACCsBV4YVpXqHXTbSCJkWMAwAUImHMJw kg8BFKFoNEQkRTR6YIKdCJWuDGLlKYruAVDjYRIbWG q0ECGjTFUuKX3VCvGgACPvJGHlDtYcUIPoTMAdat3BVBMxZXOxUkK8VjXaGMUkZTDoMMomVXYtFTDwBl poUHKmPLVvND9USdRwSVQiVVW6TYCmLZMjLPBxgx7JFNIcNOGcFuFoTzKwWYRjDXJkTEnaMBOuXPO2QP R2EQEdMMEjQW6GAqQcNGpvMDWGDpv7QVkeM2s4LKPf TA7JR5Nhv3LcNoipCJHBVEjnVF8qqeHaQWLiIm0YY1wUSqwhDmLhNvJjA4SdDOccOXV0ZnIhGiX5AAWr ZgTrH0U7QK3bLYQdJRCdJNSbBMX6OYIdSkmpZ3VmZmtcWKCnSAD5VRsaLsUoYV2XSd5WXlO3POI4zWUw Tx9ADUQuNXLJFfXoEI3EIHn= ID Date Data Source [id number] 05/03/2020 02:47:00 PM EDT [facility] ([facility]) Name Value Range Interpretation Code Description Data Viki rce(s) Supporting Document(s) Glucose [Mass/volume] in Serum or Plasma 103 mg/dL 74-99 [facility] ([facility]) 100-125 mg/dL PRE-DIABETES/FASTING >126 mg/dL DIABETES/FASTING Urea nitrogen [Mass/volume] in Serum or Plasma 7 mg/dL 7-18 [facility] ([facility]) Creatinine 0.9 mg/dL 0.6-1.3 [facility] ([facility]) Sodium [Moles/volume] in Serum or Plasma 137 meq/L 136-145 [facility] ([facility]) Potassium [Moles/volume] in Serum or Plasma 3.8 meq/L 3.5-5.1 [facility] ([facility]) Carbon dioxide, total [Moles/volume] in Serum or Plasma 26 meq/L 21 -32 [facility] ([facility]) Chloride [Moles/volume] in Serum or Plasma 101 meq/L 98-107 [facility] ([facility]) Calcium [Mass/volume] in Serum or Plasma 8.6 mg/dL 8.5-10.1 [facility] ([facility]) Alkaline phosphatase isoenzyme [Units/volume] in Serum or Pl asma 112 mg/dL 46-116 [facility] ([facility]) Aspartate aminotransferase [Enzymatic activity/volume] in Serum or Plasma 20 U/L 15-37 [facility] ([facility] ) Total Bilirubin 0.3 mg/dL 0.2-1.0 [facility] ([facility]) Alanine aminotransferase [Enzymatic activity/volume] in Seru m or Plasma 25 U/L 12-78 [facility] ([facility]) Proteinase 3 Ab [Units/volume] in Serum 6.8 g/dL 6.4-8.2 [facility] ([facility]) Albumin [Mass/volume] in Serum or Plasma 3.8 g/dL 3.4-5.0 [facility] ([facility]) A/G Ratio 1.27 CALC 1.00-1.90 [facility] ([facility]) Glomerular filtration rate/1.73 sq M pre dicted among blacks [Volume Rate/Area] in Serum or Plasma by Creatinine-based formula (MDRD) Laboratory test result [facility] ([facility]) <content>CHRONIC KIDNEY DISEASE STAGING PER NKF</content>
<content></content>
<content>STAGE I & II GFR >= 60 NORMAL TO MILDLY DECREASED</content>
<content>STAGE III GFR 30-59 MODERATELY DECREASED</content>
<content>STAGE IV GFR 15-29 SEVERELY DECREASED</content>
<content>STAGE V GFR <15 VERY LITTLE GFR LEFT</content>
<content>ESRD GFR <15 ON ACTIVITIES ATTENDANT</content>
<content></content> Glomerular filtration rate/1.73 sq M pre dicted among non-blacks [Volume Rate/Area] in Serum or Plasma by Creatinine-based formula (MDRD) Laboratory test result [facility] ([facility] ) ID Date Data Source [id number] 05/03/2020 02:47:00 PM EDT [facility] ([facility]) Name Value Range Interpretation Code Description Data Viki rce(s) Supporting Document(s) Leukocytes [#/volume] in Blood by Automated count 9.9 x10*3/UL 4.1-10 .9 [facility] ([facility]) Erythrocytes [#/volume] in Blood by Automated count 4.18 x10*6/UL 4.2 0-6.30 [facility] ([facility]) Hemoglobin [Mass/volume] in Blood 13.0 g/dL 12.0-18.0 [facility] ([facility]) MCV 90.1 fL 80.0-97.0 [facility] ([facility]) MCH 31.0 pg 26.0-32.0 [facility] ([facility]) Hematocrit [Volume Fraction] of Blood by Automated count 37.7 % 3 7.0-51.0 [facility] ([facility]) MCHC 34.4 g/dL 31.0-38.0 [facility] ([facility]) Erythrocyte distribution width [Ratio] by Automated count 13.3 % 11.6-13.7 [facility] ([facility]) Platelets [#/volume] in Blood by Automated count 310 x10*3/UL 140-440 [facility] ([facility]) MPV 8.0 FL 7.8-11.0 [facility] ([facility]) Lymph % 21.1 % 10.0-58.5 [facility] ([facility]) Mid % 4.8 % 1.7-9.3 [facility] ([facility]) Neut % 74.1 % 37.0-92.0 [facility] ([facility]) Lymph # 2.1 x10*3/UL 0.6-4.1 [facility] ([facility]) Mid # 0.4 x10*3/UL 0.1-0.6 [facility] ([facility]) Neut # 7.4 x10*3/UL 2.0-7.8 [facility] ([facility]) ID Date Data Source [id number] 03/05/2020 03:00:00 PM EST [facility] ([facility]) Name Value Range Interpretation Code Description Data Viki rce(s) Supporting Document(s) Bacteria identified in Urine by Culture Laboratory test result [facility] ([facility]) FULL REPORT IN LAB NOTES ([facility] and [facility] ). SPECIMEN APPEARS CONTAMINATED ID Date Data Source [id number] 03/05/2020 03:00:00 PM EST [facility] ([facility]) Name Value Range Interpretation Code Description Data Viki rce(s) Supporting Document(s) Urine PH 6.0 units 5.0-9.0 [facility] ([facility]) Urine Appearance Laboratory test result Abnormal (applies to non-numeric results) [facility] ([facility]) Urine Color Laboratory test result [facility] ([facility]) Urine Blood Laboratory test result Abnormal (applies to non-numeric results) [facility] ([facility]) Urine Leukocytes Laboratory test result Abnormal (applies to non-numeric results) [facility] ([facility]) Specific gravity of Urine 1.005 1.005-1.030 [facility] ([facility]) Urine Protein Laboratory test result 0-0 [facility] ([facility]) Glucose [Presence] in Urine Laboratory test result [facility] ([facility]) Urine Nitrite Laboratory test result [facility] ([facility]) Bilirubin.total [Mass/volume] in Serum or Plasma Laboratory test resu lt [facility] ([facility]) Urine Ketone Laboratory test result [facility] ([facility]) Urine Urobilinogen 0.2 mg/dL 0.2-1.0 [facility] ([facility]) ID Date Data Source [id number] 01/28/2020 11:20:00 AM EST [facility] ([facility]) Name Value Range Interpretation Code Description Data Viki rce(s) Supporting Document(s) Thyrotropin [Units/volume] in Serum or Plasma by Detec tion limit <= 0.05 mIU/L 2.85 uIU/mL 0.36-3.74 [facility] ([facility] ) ID Date Data Source [id number] 01/28/2020 11:20:00 AM EST [facility] ([facility]) Name Value Range Interpretation Code Description Data Viki rce(s) Supporting Document(s) Cholesterol [Mass/volume] in Serum or Plasma 167 mg/dL 131-200 [facility] Cholesterol in LDL [Mass/volume] in Serum or Plasma by calcu lation 82 CALC 50-159 [facility] ([facility]) Cholesterol in HDL [Mass/volume] in Serum or Plasma 59 mg/dL 35-60 [facility] ([facility]) Triglyceride [Mass/volume] in Serum or Plasma 129 mg/dL 30-150 [facility] ID Date Data Source [id number] 01/28/2020 11:20:00 AM EST [facility] ([facility]) Name Value Range Interpretation Code Description Data Viki rce(s) Supporting Document(s) Glucose [Mass/volume] in Serum or Plasma 90 mg/dL 74-99 [facility] ([facility]) 100-125 mg/dL PRE-DIABETES/FASTING >126 mg/dL DIABETES/FASTING Urea nitrogen [Mass/volume] in Serum or Plasma 10 mg/dL 7-18 [facility] ([facility]) Sodium [Moles/volume] in Serum or Plasma 140 meq/L 136-145 [facility] ([facility]) Creatinine 0.9 mg/dL 0.6-1.3 [facility] Chloride [Moles/volume] in Serum or Plasma 102 meq/L 98-107 [facility] ([facility]) Carbon dioxide, total [Moles/volume] in Serum or Plasma 31 meq/L 21 -32 [facility] ([facility]) Potassium [Moles/volume] in Serum or Plasma 4.0 meq/L 3.5-5.1 [facility] ([facility]) Calcium [Mass/volume] in Serum or Plasma 9.4 mg/dL 8.5-10.1 [facility] ([facility]) Total Bilirubin 0.5 mg/dL 0.2-1.0 [facility] ([facility]) Alkaline phosphatase isoenzyme [Units/volume] in Serum or Pl asma 107 mg/dL 46-116 [facility] ([facility]) Alanine aminotransferase [Enzymatic activity/volume] in Seru m or Plasma 22 U/L 12-78 [facility] ([facility]) Aspartate aminotransferase [Enzymatic activity/volume] in Serum or Plasma 17 U/L 15-37 [facility] ([facility] ) Albumin [Mass/volume] in Serum or Plasma 3.9 g/dL 3.4-5.0 [facility] ([facility]) A/G Ratio 1.26 CALC 1.00-1.90 [facility]) Proteinase 3 Ab [Units/volume] in Serum 7.0 g/dL 6.4-8.2 [facility] ([facility]) Glomerular filtration rate/1.73 sq M pre dicted among non-blacks [Volume Rate/Area] in Serum or Plasma by Creatinine-based formula (MDRD) Laboratory test result [facility] ) Glomerular filtration rate/1.73 sq M pre dicted among blacks [Volume Rate/Area] in Serum or Plasma by Creatinine-based formula (MDRD) Laboratory test result [facility] ([facility]) <content>CHRONIC KIDNEY DISEASE STAGING PER NKF</content>
<content></content>
<content>STAGE I & II GFR >= 60 NORMAL TO MILDLY DECREASED</content>
<content>STAGE III GFR 30-59 MODERATELY DECREASED</content>
<content>STAGE IV GFR 15-29 SEVERELY DECREASED</content>
<content>STAGE V GFR <15 VERY LITTLE GFR LEFT</content>
<content>ESRD GFR <15 ON ACTIVITIES ATTENDANT</content>
<content></content> ID Date Data Source [id number] 01/28/2020 11:20:00 AM EST [facility] ([facility]) Name Value Range Interpretation Code Description Data Viki rce(s) Supporting Document(s) Leukocytes [#/volume] in Blood by Automated count 7.7 x10*3/UL 4.1-10 .9 [facility] ([facility]) Hemoglobin [Mass/volume] in Blood 13.4 g/dL 12.0-18.0 [facility] ([facility]) Erythrocytes [#/volume] in Blood by Automated count 4.41 x10*6/UL 4.2 0-6.30 [facility] ([facility]) Hematocrit [Volume Fraction] of Blood by Automated count 39.5 % 3 7.0-51.0 [facility] ([facility]) MCV 89.6 fL 80.0-97.0 [facility] MCH 30.3 pg 26.0-32.0 [facility] ([facility]) Erythrocyte distribution width [Ratio] by Automated count 13.4 % 11.6-13.7 [facility] ([facility]) MCHC 33.8 g/dL 31.0-38.0 [facility]) MPV 8.5 FL 7.8-11.0 [facility]) Platelets [#/volume] in Blood by Automated count 313 x10*3/UL 140-440 [facility] ([facility]) Mid % 5.7 % 1.7-9.3 [facility]) Neut % 72.1 % 37.0-92.0 [facility]) Lymph % 22.2 % 10.0-58.5 [facility]) Mid # 0.4 x10*3/UL 0.1-0.6 [facility] ([facility]) Neut # 5.6 x10*3/UL 2.0-7.8 [facility] ([facility]) Lymph # 1.7 x10*3/UL 0.6-4.1 [facility] ([facility]) ID Date Data Source [id number] 01/23/2020 01:33:19 PM EST [facility] INFORMATIONPatient MRN Name Date of Age Gend*PT [id number] Lianne Tuttle 1955 64 years F OBSPT Location Admission Date/Time Visit ID Attending [id number] 01/21/20 0839 --- Audra Gomes MD([id number]) EPI ID CSN Admitting Provider [id number] Audra Gmoes MD([id number])Physician Discharge Summary Lianne TuttleMRN: [id number] date: 01/21/2020Attending Physician: Audra Gomes MDAdmission Diagnosis: Unstable anginaSecondary Diagnoses: Active Problems: ST elevation (STEMI) myocardial infarction involving left anterior descendingcoronary artery Hyperlipidemia Cardiomyopathy, ischemic Coronary angioplasty status Essential hypertension JAY on CPAPPrinciple Procedures:Cardiac catheterization 01/21/2020:64-year-old woman with coronary artery disease post myocardial infarction andbare-metal stent to the LAD in 2017 now presenting with recurrent angina and anabnormal stress test. She had a prolonged episode of angina this morning atrest.1. Total occlusion inside the previously deployed stent with diffuse diseasedistal to the stent status post difficult recanalization with 2 overlappingdrug-eluting stents.2. Moderate left ventricular systolic dysfunction.3. Right radial access. The patient will be on dual antiplatelet therapy for at least a year. CTA chest 01/22/2020:No filling defects from the main pulmonary artery to the proximal segmentalarterial branches to suggest a pulmonary embolism. Evaluation of the distalbranches is limited due to motion artifact. Mild multifocal bilateral ground-glass opacity. These findings are nonspecificand may be related to motion. Imaging characteristics can also be seen in viralor atypical infections, pulmonary edema or inflammatory pneumonitis.Indication for Admission: post cardiac catheterizationHospital Course & Complications:HPI: the patient is a 64 year old female with history of ischemiccardiomyopathy, hypertension, JAY, GERD and asthma. She had prior stenting tothe LAD in 2016 and presented with recurrent angina and an abnormal stresstest. She had resting angina in the morning and presented for cardiaccatheterization on 01/21/2020. She was found to have a total occlusion inside herpreviously deployed stent with diffuse disease distal to the stent. Stp PCI withDES x2 overlapping. It was a difficult intervention and she was kept forobservation. DAPT was recommended for at least one year. She continued to havemild intermittent chest pain as well as exertional dyspnea. No changes on ECG.Her d-dimer was borderline and she had a CTA of her chest that did not show apulmonary embolism. Her telemetry has been quiet. She tells me she still hasintermittent chest pressure that is a 1-2/10 at rest. She has ambulated aroundthe unit and denies recurrence of dyspnea and no chest pain with activity. Herblood pressure this morning was significantly elevated. Her carvedilol has beenchanged to Zebeta, imdur has been added. Her renal function is normal. Her JACOB-Ihas been held due to dye load and will be restarted as an outpatient. We willincrease the dose for better blood pressure control. The patient is stable fordischarge. She will follow up with Dr. Reyes's office next week.Past Medical History:Past Medical History:Diagnosis Date Asthma Cardiomyopathy, ischemic Chronic low back pain Essential hypertension Fibromyalgia affecting multiple sites Gastroesophageal reflux disease without esophagitis History of nuclear stress test 08/2016 LVEF 62%, small area of apical infarct but no ischemia Hx of cardiac cath 03/07/2016 EF 45%. PCI/BMS to mLAD for 1v CAD. No reflow in dLAD. Intra-aortic balloonpump. Hyperlipidemia JAY on CPAP ST elevation (STEMI) myocardial infarction involving left anterior descendingcoronary artery 03/07/2016Most Recent Labs:BMP:Lab ResultsComponent Value Date NA 140 01/23/2020 K 3.9 01/23/2020 CL 109 (H) 01/23/2020 CO2 22 01/23/2020 ANIONGAP 9 01/23/2020 CALCIUM 8.9 01/23/2020 GLU 73 01/23/2020 BUN 13 01/23/2020 CREATININE 0.75 01/23/2020 GFRAA >60 01/23/2020 GFRNONAA >60 01/23/2020Cardiac:Lab ResultsComponent Value Date TROPONINI 0.06 (H) 01/23/2020 PROBNP 176 12/29/2019CBC Brief:Lab ResultsComponent Value Date WBC 8.4 01/23/2020 HGB 12.5 01/23/2020 HCT 37.6 01/23/2020 PLT 251 01/23/2020D-Dimer:Lab ResultsComponent Value Date DDAT 0.58 (H) 01/22/2020HgbA1c:Lab ResultsComponent Value Date HGBA1C 5.6 03/08/2016Hyperlipidemia:Lab ResultsComponent Value Date CHOL 171 08/29/2019 TRIG 130 08/29/2019 HDL 62 08/29/2019 CHOLHDL 3.3 03/08/2016 LDL 105 04/30/2017 LDLCALC 83 08/29/2019Thyroid:Lab ResultsComponent Value Date TSH 1.00 12/29/2019Medications:Your medication listSTART taking these medications Instructions Last Dose Given Morning Afternoon Evening Bedtime As Neededbisoprolol 5 MG tabletCommonly known as: ZEBETAStart taking on: January 24, 2020 Take 1 tablet (5 mg total) by mouth dailyisosorbide mononitrate 30 MG 24 hr tabletCommonly known as: IMDURStart taking on: January 24, 2020 Take 1 tablet (30 mg total) by mouth dailyCHANGE how you take these medications Instructions Last Dose Given Morning Afternoon Evening Bedtime As NeededAdvair HFA 115-21 MCG/ACT inhalerGeneric drug: fluticasone-salmeterolWhat changed: Another medication with the same name was removed. Continuetaking this medication, and follow the directions you see here. Take 2 puffs by mouth dailylisinopril 5 MG tabletCommonly known as: CLAUDIOZESTRILWhat changed: medication strength how much to take Take 1 tablet (5 mg total) by mouth dailyMelatonin 1 MG CapsWhat changed: Another medication with the same name was removed. Continuetaking this medication, and follow the directions you see here. 10 mgCONTINUE taking these medications Instructions Last Dose Given Morning Afternoon Evening Bedtime As Neededalbuterol 108 (90 Base) MCG/ACT inhalerCommonly known as: PROVENTIL HFA;VENTOLIN HFA Inhale 2 puffs every 4 (four) hours as needed for wheezingaspirin 81 MG EC tablet ASPIRIN 81 MG TBECbaclofen 10 MG tabletCommonly known as: LIORESAL Take 10 mg by mouth 2 (two) times a dayCALCIUM 1200 PO Take 1 tablet by mouth dailycetirizine 10 MG tabletCommonly known as: ZyrTEC Take 10 mg by mouth dailyclopidogrel 75 MG tabletCommonly known as: PLAVIX Take 1 tablet (75 mg total) by mouth dailycycloSPORINE 0.05 % ophthalmic emulsionCommonly known as: RESTASIS Administer 1 drop to both eyes 2 (two) times a dayDaily Estephania per tablet Take 1 tablet by mouth dailygabapentin 400 MG capsuleFor: 600mg at bedtime 400 mg in amCommonly known as: NEURONTIN Take 600 mg by mouth 2 (two) times a daylidocaine 5 %Commonly known as: LIDODERM Place 2 patches on the skin daily (1 patch to lower back, 1 patch to left hip)Remove & Discard patch within 12 hours or as directed by Lipitor 40 MG tabletGeneric drug: atorvastatin LIPITOR 40 MG TABSmagnesium oxide 400 MG tabletCommonly known as: MAG-OX Take 400 mg by mouthMiraLax 17 GM/SCOOP powderGeneric drug: polyethylene glycol Take 17 g by mouthmontelukast 10 MG tabletCommonly known as: SINGULAIR Take 10 mg by mouth nightlyNitrostat 0.4 MG SL tabletGeneric drug: nitroglycerin NITROSTAT 0.4 MG SUBLnortriptyline 25 MG capsuleCommonly known as: PAMELOR Take 25 mg by mouth nightlynystatin creamCommonly known as: MYCOSTATIN Apply 1 application topicallyoxyCODONE-acetaminophen 5-325 MG per tabletCommonly known as: PERCOCET Take 1 tablet by mouth every 8 (eight) hours as needed for painpantoprazole 40 MG tabletCommonly known as: PROTONIX Take 40 mg by mouth 2 (two) times a daysertraline 50 MG tabletCommonly known as: ZOLOFT Take 50 mg by mouth dailySpiriva Respimat 1.25 MCG/ACT AersGeneric drug: Tiotropium Allouez Monohydratesucralfate 1 g tabletCommonly known as: CARAFATE Take 1 g by mouth 2 (two) times a daytopiramate 100 MG tabletCommonly known as: TOPAMAX Take 100 mg by mouth 2 (two) times a daytraZODone 150 MG tabletCommonly known as: DESYREL Take 150 mg by mouth nightlySTOP taking these medicationsCALCIUM CARBONATE-VITAMIN D POcarvedilol 25 MG tabletCommonly known as: COREGfluticasone 50 MCG/ACT nasal sprayCommonly known as: FLONASEWhere to Get Your MedicationsThese medications were sent to [facility] [id number] [address] bisoprolol 5 MG tablet clopidogrel 75 MG tablet isosorbide mononitrate 30 MG 24 hr tablet lisinopril 5 MG tabletDischarge Exam:Vitals: Temp: [97.4 F-98 F] 97.6 FHeart Rate: [70-89] 77Resp: [16-18] 17BP: (131-180)/(71-94) 157/92Pleasant, comfortable, not in acute distress.Awake, alert, oriented times 3.Moves all extremities.Lungs: Clear to auscultation bilaterally.Heart: regular rate and rhythm, S1, S2 normal, no murmur, click, rub or gallopAbdomen: Soft, nontender, bowel sounds present.Extremities: No edema. +2 pulses bilaterally radial, femoral, and dorsalis pedis. Right radial sitewith no bleeding, no complications, healing appropriately.Skin: No rash or lumps.Discharged Condition:stableDisposition: Home or Self CareFollow Up: As scheduled with Tracey Araujo NPSignature: HUBER Phelpsate: January 23, 2020Time: 12:19 PM Name Value Range Interpretation Code Description Data Viki rce(s) Supporting Document(s) ID Date Data Source [id number] 01/23/2020 08:04:21 AM EST [facility] Name Value Range Interpretation Code Description Data Viki rce(s) Supporting Document(s) TROPONIN I 0.06 ng/mL (<0.05) H [facility] Less than 0.05: Myocardial injury unlike lyGreater than or equal to 0.05: Highly suggestive of myocardial injuryCorrelation with rise and/or fall ofserial troponins, clinical symptomsand ECG changes is necessary. ID Date Data Source [id number] 01/23/2020 08:04:21 AM EST [facility] Name Value Range Interpretation Code Description Data Viki rce(s) Supporting Document(s) SODIUM 140 mmol/L (136-145) [facility] POTASSIUM 3.9 mmol/L (3.6-5.2) [facility] CHLORIDE 109 mmol/L (100-108) H [facility] CO2 22 mmol/L (22-31) [facility] ANION GAP 9 mmol/L (7-16) [facility] UREA NITROGEN 13 mg/dL (7-24) [facility] CREATININE 0.75 mg/dL (0.60-1.00) [facility] BUN/CREAT RATIO 17.3 RATIO (10.0-20.0) [facility] GLUCOSE 73 mg/dL (70-99) [facility] CALCIUM 8.9 mg/dL (8.4-10.2) [facility] GFR >60 ml/min/1.73m2 (>59) [facility] GFR ( AMER) >60 ml/min/1.73m2 (>59) [facility] GFR INTERPRETATION [facility] --NORMAL KIDNEY FUNCTION OR MILD DISEASE - GFR >OR= 60CHRONIC KIDNEY DISEASE - GFR 15 - 59RENAL FAILURE - GFR <15 Est. GFR calculation based on the MDRDstudy equation, which assumes a steadystate for creatinine. Est. GFR should notbe used for medication dosing. ID Date Data Source [id number] 01/23/2020 07:25:09 AM EST [facility] Name Value Range Interpretation Code Description Data Viki rce(s) Supporting Document(s) WBC 8.4 10*3/uL (4.1-11.0) [facility] RBC 4.06 10*6/uL (4.00-5.40) [facility] HGB 12.5 g/dL (12.0-16.0) [facility] HCT 37.6 % (36.0-47.0) [facility] PERFORMED AT [address] [place] [address] [address] [place] [address] MCV 92.6 fL (80.0-95.0) [facility] MCH 30.8 pg (27.0-32.0) [facility] MCHC 33.2 g/dL (32.0-36.0) [facility] RDW 13.9 % (10.5-14.5) [facility] PLT 251 10*3/uL (150-450) [facility] MPV 8.6 fL (7.1-10.7) [facility] ID Date Data Source [id number] 01/22/2020 11:41:26 PM EST [address] [id number] Name: Lianne EscamillaGeraldo: 1955Sex: FOrdering Provider: CARLOS Mary Prov: CARLOS Sethi Provider: Procedure Performed: CT ANGIOGRAM CHESTExam Date: 01/22/2020 21:55MRN: [id number] Number: [id number] Class: INFORMATION: Exam: CT Angiography Chest With Contrast Exam date and time: 01/22/2020 9:55 PM Age: 64 years old Clinical indication: Abnormal findings; Abnormal diagnostic tests; Elevated d-dimer; Prior surgery; Surgery type: 3 stents placed - spinal cord stimulator; Additional info: Chest pain, pe suspected, low/intermediate prob, positive d- dimer TECHNIQUE: Imaging protocol: Computed tomographic angiography of the chest with intravenous contrast. 3D rendering (Not supervised by radiologist): MIP and/or 3D reconstructed images were created by the technologist. Radiation optimization: All CT scans at this facility use at least one of these dose optimization techniques: automated exposure control; mA and/or kV adjustment per patient size (includes targeted exams where dose is matched to clinical indication); or iterative reconstruction. Contrast material: ISOVUE 370; Contrast volume: 70 ml; Contrast route: INTRAVENOUS (IV); COMPARISON: CR XR CHEST PORTABLE 03/15/2016 7:21 AM FINDINGS: Pulmonary arteries: No filling defects from the main pulmonary artery to the proximal segmental arterial branches to suggest a pulmonary embolism. Evaluation of the distal branches is limited due to motion artifact. Aorta: No aortic aneurysm. No aortic dissection. Lungs: Bilateral dependent atelectasis. Nonspecific mild multifocal ground-glass opacity .Pleural space: No pneumothorax. No pleural effusion. Heart: Evidence of prior cardiac surgery. The heart is borderline enlarged. There is atherosclerotic calcification of the coronary arteries. Lymph nodes: No lymphadenopathy by CT size criteria. Bones/joints: Intracanicular neurostimulator wires entering the spinal canal at T10-T11 and terminating at T9-T10 , also at T7-T8 and terminating at T6-T7. Partially visualized lower cervical metallic anterior spinal fixation. Multilevel degenerative changes of the spine. There is no evidence of acute fracture. Soft tissues: No fluid collection or focal mass. IMPRESSION: No filling defects from the main pulmonary artery to the proximal segmental arterial branches to suggest a pulmonary embolism. Evaluation of the distal branches is limited due to motion artifact. Mild multifocal bilateral ground-glass opacity. These findings are nonspecific and may be related to motion. Imaging characteristics can also be seen in viral or atypical infections, pulmonary edema or inflammatory pneumonitis.Report electronically signed by: CARMEN SALAZAR MD on 01/22/2020 23:41:26 Name Value Range Interpretation Code Description Data Viki rce(s) Supporting Document(s) ID Date Data Source [id number] 01/22/2020 11:07:30 PM EST [facility] Name Value Range Interpretation Code Description Data Viki rce(s) Supporting Document(s) CK 53 U/L (26-192) [facility] TOTAL CK <56, MASS MB NOT INDICATED. ID Date Data Source [id number] 01/22/2020 07:00:59 PM EST [facility] Name Value Range Interpretation Code Description Data Viki rce(s) Supporting Document(s) TROPONIN I 0.08 ng/mL (<0.05) H [facility] Less than 0.05: Myocardial injury unlike lyGreater than or equal to 0.05: Highly suggestive of myocardial injuryCorrelation with rise and/or fall ofserial troponins, clinical symptomsand ECG changes is necessary. ID Date Data Source [id number] 01/22/2020 05:39:38 PM EST [facility] Name Value Range Interpretation Code Description Data Viki rce(s) Supporting Document(s) D-DIMER,SENSITIVE 0.58 mg/L (<0.50) H [facility] ID Date Data Source [id number] 01/22/2020 04:34:23 PM EST [facility] Name Value Range Interpretation Code Description Data Viki rce(s) Supporting Document(s) CKMB 1.3 ng/mL (0.0-5.0) [facility] CKMB RELATIVE INDEX 2.2 {index_val} (0.0-4.0) [facility] ID Date Data Source [id number] 01/22/2020 04:22:12 PM EST [facility] Name Value Range Interpretation Code Description Data Viki rce(s) Supporting Document(s) TROPONIN I 0.10 ng/mL (<0.05) H [facility] Less than 0.05: Myocardial injury unlike lyGreater than or equal to 0.05: Highly suggestive of myocardial injuryCorrelation with rise and/or fall ofserial troponins, clinical symptomsand ECG changes is necessary. ID Date Data Source [id number] 01/22/2020 04:22:12 PM EST [facility] Name Value Range Interpretation Code Description Data Viki rce(s) Supporting Document(s) CK 59 U/L (26-192) [facility] ID Date Data Source [id number] 01/22/2020 12:48:[address] [facility] Name Value Range Interpretation Code Description Data Viki rce(s) Supporting Document(s) EKG [facility] COBYAm7oOjODUgKra9RdHuLrALNmHH2jzmt9V5J2yFMnU7SenFEmu4wpN2LgO6IaZQZjHRKGXX6GoNZr jb2 [file] [id number]+L+tQM4g8nd943WjAQh3m0u yedU7f2Ez1Mv9G8iopZHUsM3gALyizLlyMP2+Gt3jv12B95bywZI/3iOb+KWUv5ya76x2/pLk/WPTT3g dpfWF9Wmwn+4MlH+3N/oJFq8F250Z/8IZBb/ysab/K+lG6Fsaik8GYmcHbNaXR0JHihJnSWB9N2eVSvA u8vH59v/b3oM7+RkLYG1jQvNS5Y5/l/174KumNrzTx PwMz4GfEe8Gslt6N1tD/UNN+dcOg9/dzZa1usF6RBq513AoHBq+v4v9V/L+G/6bzN4ymw5TBvkEuy/8q 9hf50ahkLm35y/cY1m6fxl+KbpBjoPuHcOs/0Rx0ECqZ+gU5G/T+3lfH+T87uEbUWjX1tZdOqms281rq 6PNDuOeBxFclB+70S47pivTHVD+Px4u8o73xl3Nle8 D3+41EiFt5qv2+9OxGxy0tfML/C2tytm2xhW3Bvmd9c1/2wy6SRxSesd7xarP6lUU7zS7cfxy7v//tO5 j/nP5/9NPeDK/k5JHN1j0ND/iOp9TSxZYunhDf+c6BnEP/T7uqMi5Z/qdBhl7068cSt+C/zsmc8/725f l1y7vwZKQp/GvvC4O+QD/gpiyq6WZey0eArYal9u/Z ev5M6NSZ7G4DFBscq491QuCRW1D+62hvm9oMgyKpeRI552NRitX9F478gmA+EgpBWmoRznN0oT0jCHyg /nbO9Fd/U8w6wq40X/pr7joH+mvusq/FR8c2lTQ4jgsomCSLAf6nG3m7w4crXY/UWlP7rX+ds8c5b3w2 IGdDfs/ZnrckoKQ5IB/drrJfZVhafuKrrNuYoE/Q+z iFwX2qdBL5F+1LjNX6B4l17e4hNByZw2iLopT/K78ggkp6TtxoebzD8E0ngyfScj3omPXj/JUlvso+U+ evUo52/qEWXsnukQgd0wnSL2YUlRnsy103az0G03a+OSfzaxydg/rUy671/Uf5n5Jry/tk2TbthQ6y+Y Afj9K0nqWzZ/l/N6Wa5B097DsT/9nIB9wbjl/nnMP4 Z+L/pM01O0yo9j011/ZyDuL/nYp6Ao5AK+m9/5utoqcL0dvHZf5x5m/7pr2/PMi09gMbBVtUaX5Z749d xt834AYmMH9RfevLgTy95JzymOQAc9G/TYxc3tgr0+4/ia+ybob+GRwcCB3f1rj/ZmivTciZXR/D+DX0 Z+AxU9Y22JGI9sLQ5pBxFHRuTeQ+qrIwXyW+Srq3vd 2891PMGz+bY/y6IL10/R3/r+P/dfy/ohIqePjkfs47Mr4b1/0jc/y/ycxLQO2yvco5Qj9EFL/MV4H/Nz EqYm5rDnAm7Ttkai22nrTd/5BCcPnlp3Z4aM0PTtsUfq+k8WK8iJ/TflXpF+Wj5Gzm01R/Xh/oo/Ww+n kDVqtrbaE94wsdrG0CLCj/mP1/QooI0Var6Vmbg7Zw dKy/eU8Q6gyQgMPtN/Z5b6OlmSxUN/PVHqCnfSPT9/ja023pjli6L60B7Fl+Ybk/HIZR1l41ilej9bra rH+rs5q3wBR01/fgOQ5//2yI4fexj/jX/dm/D/Darek/Cvvxf86/Hria+KPj+EQe/sHF57jpMTY7yeWgt5 s3+O9L0/1Iywckl4Hqt73xcr56f/Bj831RV/B330fO RSc3Jis+crH/9726UW0/nZR3//+xFTTtP89Hx/1Efvh/pAewfam/iq6rlQ/4X0+30/pcGfBPp1Gmy8L/ UcW0xPiOECJg8v1ifE81+ZlrlhpbF9wP122VU6Fk8zgBU0iqWdG2q0eJgQO+1ZsmED6rvUrYUrOFisyx zvUJ/zQ/h9z/lDmxorUf58/q69kx08RkEQmrVbU/rz HUxkVpnp06mp8iTZqUWeTy9RuoNbHc7NHU5CDpeVnc7APM8IA5822Pw/83LRDd5icdvdj8y6pI/e8PtO d92g9/e+2/jnXS0h57K4b31nNP1dSs8auk2o5gd64zitd9oE5J8ptazP9hu4Jo4TN7Fshx7Pydj85Uzf zb+jo9A82fSlc/y/Vg5Qrh8UA+vBJ+Kpti8vrumE4N 29Qbut14t7yJ/lpgg7bvS61r3Qad6ad7Z/3C2QidXBs8Drt+/vuefHHnq9ubzOnb7dOMXBQ6Z+WodPe7 MOab/aAfnL7G202hq/fuxXL/tlxdfos11I/+d3zf220DuawhB32hhcSamyQ89ywjvoN0X9W69rkkk+de m/0m7AYGZtdd3EplRKtRjqT4kzn1Ztgx+78bZn2m4E n8d+FJq02mbZYgn3Yqs7BQuxc515X3u5tLp83wv699tu078vvRzdU90TU1EDkYL3246d4Z1OX7LV2+9u +7Pvxs++MypQ5hS+7gX5C/PWvmS9fzUkn8hi20T35e8gE11gSTPoe5Xfs0tNA+ON+EjcV9fsuOUXYAEs kL7bG5+LZmlcJJzy0IZ6zaa7iqlyBQb5b8cEm9tDGm X9ECyuoZ+3vsTo+ZvNzitNhHvneHBy2tS6SmDn6e9g+v+N/5+vO4oufPLId3+XClsUKkabcat1d4/OPo RUWSvn3+E2HUud75MGGccaJIF94rxaf9O+1Tdd1uN8nZ6V70/n1tXhcU63pY9Q67TatU71bo/5ynNtXP kqdTJ+5au0t/ErX6V+uk594mMEgdIj/NXnVPrqc+75 i1985yJtr4/LTnc30xp+mC3MdeApk02ou+Pa5yNP+OaXhLonn46+D/ps+dln6+w2pq0SQ6+/nveD+V5m f78O+smwXwhmB56v8nI613OQjuY3q9PL+sbamD5AY7wGY4cd5VrDr/nZlyBfka/Ib/qI09Z2CT/KV5W2 0jsqx6Hws5Q6RxxEW5OdX7/10nhuIB/7lWG/sr4/cm h9j69dHsvL5/D92kR+smdj15QbzV+dj9m42n3y/luvKu9LV2x+1g5obLiuFtkj1nnZ1jxo0kXL3z4/+u 7zke/+H/fTdc3HR+0FRkhKhbUekNmz0dabW/z47Brc3G4N9tTw4fCZg2M0Is3WB/dzcT/ojvXseL+O9Z c7d9xc7Mkzri2dR8s05tzsmA//Kenneth/9J3148iW/sr9 IL/i3r56On49t+8H+/Physical [employer] Employee/aRDf+Fyr0fnt93wMmC8/shP22/4WSjf+is/hvyN/L4/2mPKt6W/gC21oxkf [file] ggMDAwMDAgbiAKMDAwMDAwMDQwOSAwMDAwMCBuIAow TZIvWMNlOXSlMOZbGLYdMW4bCbIkCQUhVLS2FQKmYZFtMOXxagWNJDWhQAMqVMd7XTDoJQIrRCJdDGxb NTZmYCAeYGX4CTBnEBOtUX1oSqQoXUErOVY6MtDsYYOkOWCpmyENCUTrXXYpQPG6UsKfTUNhVWBrJEqy HQUqYDTrXPjxNWVbIUDpWR1oIyAzULCzZUMvDWzbQU HoKVXkfcLGIANpGVQiWAZqTrRhKEDvERTdWNapOBOwZXb5GVUsFPXqFWOwPG2hRoJaFOTiLLF6ERejNW EiKEGlpyOMTFXdCEBiROhmMKFfYOGvLXCvCEglGJBmINWdAJU5NJAdCTXzKK2yKzXaLUCcUDWgEWFqHg P0TuUkYbJQiCFljKgdfdz5UYtgL2y5JIGmBTvlWT1v yqOpYVQuGvmyPx0jdUQ0NSYjGcwHSk3Uz0CmjiB5yaYjObd2ACAhAzCcVP7P ID Date Data Source [id number] 01/22/2020 07:27:[address] [facility] Name Value Range Interpretation Code Description Data Viki rce(s) Supporting Document(s) EKG [facility] DAAPUb1pQlNFKeUyd9VyPxMvHBBgEF1bbgo4F1T8tTWoM5VdzHMcd0ajZ2CgN3KlVMZnQPQPPY8PbGRh jb2 [file] 1j24uiBl/vp analysis/k5N90mW56606S//k3jea86Y+9+6q1Ndv44t/bnbGm+osBRP7x6fvYYL09+2ApNhG0PVn [file] ZiAKMDAwMDAwMDAxNiAwMDAwMCBuIAowMDAwMDAwMD g8NOPfQHDaJV8vOfPtKFWtFTBpFLDfENMrVFLackKEQSCrOHRxHPY2WVCxWWDkRPCxXOarCEEyYETyLA Y6HNFbHSXnMH5eXhToHQInVQH7HbIeDHTmEBUqszEQBDUiRGAhUUE4VYHvUQRpCFOmHZwtCVNmAZBkSg R6HIZgSLYoZK5gZrRiOEAcEIX1CCOrWPVsHDJbbwMR YRYpIGXtKYp6ExLzRUIvOWLsQVhqCAOyFGLrNXlgXPXuDBLsRQ2aDcZiCJInBYMxOPLoLRYqLOYvrzAN YCQqUWAaOCK0GoHoXPGuOEBwMWgdPTPvWRCoULT9XUBeLTPdQS2tRuOcIXEaWAZ4TvVuVDUzMOEujtED CKPyZMLyIYCoCPWhKJPjKUBfSPdxGRNqZRVoQnD6FR ElIOQjZJ3vYjZvKOBqNJQ0OZArWCWwMAAoggWXGRPnCOXxWQVdDQZ6IIIdUSVsJXr9lxVaiGAwUlq1Mo 1HjLkmJAB6Np0XegTmTIYyUIKHYi7Lk329YDLqDCEDSpg+TzhxvQMlsLvqKXQOVLC2MhGTUQJJE1Y= ID Date Data Source [id number] 01/22/2020 07:49:53 AM EST [facility] Name Value Range Interpretation Code Description Data Viki rce(s) Supporting Document(s) SODIUM 141 mmol/L (136-145) [facility] POTASSIUM 3.9 mmol/L (3.6-5.2) [facility] CHLORIDE 110 mmol/L (100-108) H [facility] CO2 25 mmol/L (22-31) [facility] ANION GAP 6 mmol/L (7-16) L [facility] UREA NITROGEN 12 mg/dL (7-24) [facility] CREATININE 0.72 mg/dL (0.60-1.00) [facility] BUN/CREAT RATIO 16.7 RATIO (10.0-20.0) [facility] GLUCOSE 83 mg/dL (70-99) [facility] CALCIUM 8.3 mg/dL (8.4-10.2) L [facility] GFR >60 ml/min/1.73m2 (>59) [facility] GFR ( AMER) >60 ml/min/1.73m2 (>59) [facility] GFR INTERPRETATION [facility] --NORMAL KIDNEY FUNCTION OR MILD DISEASE - GFR >OR= 60CHRONIC KIDNEY DISEASE - GFR 15 - 59RENAL FAILURE - GFR <15 Est. GFR calculation based on the MDRDstudy equation, which assumes a steadystate for creatinine. Est. GFR should notbe used for medication dosing. ID Date Data Source [id number] 01/21/2020 02:12:[address] [facility] Name Value Range Interpretation Code Description Data Viki rce(s) Supporting Document(s) EKG [facility] XTWRZh9hCaVVRnVfp4NaCaGqVTAnAK5pnhd8R2N1iULsY5MuyNFuq5hzV3NoI0LiOQRpXNCZLO7JrPSv jb2 [file] NwolJUVPRg== ID Date Data Source [id number] 01/21/2020 12:51:[address] [facility] Name Value Range Interpretation Code Description Data Viki rce(s) Supporting Document(s) &PDF [facility] SZPGZt6fDrLOFuSn64/OULdxJNMba6KwXDaxLDh3UJmwTUHcZ7FthTweMGjSDWwHHQxBZeEAAKBcBULx FcG [file] YKw252b73xKN+cF/xaAiFu9OPRCbCwsCa/qCTuH7+HGh+kXRAwMDLrNsrpmaQnbld0G7hG+care center manager+ZCX3g9 [file] rsS+IDQQAEx9mESf2LVIw3zdwhOKw1/374df9trQKO0fhU4934vCyv0f+student education specialist+bUO+6L5p89C5LgI7uY8 [file] /deep fat fry [file] ICAgICAgICAgICAgICAgICAgICAgICAgICAgICAgIC AgICAgICAgICAgICAgICAgICAgICAgICAgICAgICAgICAgICAgICAgICAgICAgICAgICANCiAgICAgIC AgICAgICAgICAgICAgICAgICAgICAgICAgICAgICAgICAgICAgICAgICAgICAgICAgICAgICAgICAgIC AgICAgICAgICAgICAgICAgICAgICAgICAgICAgICAg ICANCiAgICAgICAgICAgICAgICAgICAgICAgICAgICAgICAgICAgICAgICAgICAgICAgICAgICAgICAg ICAgICAgICAgICAgICAgICAgICAgICAgICAgICAgICAgICAgICAgICAgICANCiAgICAgICAgICAgICAg ICAgICAgICAgICAgICAgICAgICAgICAgICAgICAgIC AgICAgICAgICAgICAgICAgICAgICAgICAgICAgICAgICAgICAgICAgICAgICAgICAgICAgICANCiAgIC AgICAgICAgICAgICAgICAgICAgICAgICAgICAgICAgICAgICAgICAgICAgICAgICAgICAgICAgICAgIC AgICAgICAgICAgICAgICAgICAgICAgICAgICAgICAg ICAgICANCiAgICAgICAgICAgICAgICAgICAgICAgICAgICAgICAgICAgICAgICAgICAgICAgICAgICAg ICAgICAgICAgICAgICAgICAgICAgICAgICAgICAgICAgICAgICAgICAgICAgICANCiAgICAgICAgICAg ICAgICAgICAgICAgICAgICAgICAgICAgICAgICAgIC AgICAgICAgICAgICAgICAgICAgICAgICAgICAgICAgICAgICAgICAgICAgICAgICAgICAgICAgICANCi AgICAgICAgICAgICAgICAgICAgICAgICAgICAgICAgICAgICAgICAgICAgICAgICAgICAgICAgICAgIC AgICAgICAgICAgICAgICAgICAgICAgICAgICAgICAg ICAgICAgICANCiAgICAgICAgICAgICAgICAgICAgICAgICAgICAgICAgICAgICAgICAgICAgICAgICAg ICAgICAgICAgICAgICAgICAgICAgICAgICAgICAgICAgICAgICAgICAgICAgICAgICANCiAgICAgICAg ICAgICAgICAgICAgICAgICAgICAgICAgICAgICAgIC AgICAgICAgICAgICAgICAgICAgICAgICAgICAgICAgICAgICAgICAgICAgICAgICAgICAgICAgICAgIC ANCjw/bSRfJ7ruuAQzhdY8Y9ioYx7YUs8WEE4el0TeGGOcVGscgrWkXnpYTiMaEQXwZjoVFwi6PIvhFR 0AfXNbZ0BhN4AaXOjrPS2TVOFrFJMvlJOfDANoHFWi PvE2JJDjXVzfAJ9FoUPaEKvcOXIbJFSeMlLhVEScXHZlSNZdSUYpMQYVGARzYCYbFaZtOPQuIQSwNYab VDCGJE3BLjBgC6OusI91ZNhEEv3+UEwfzgUdBdlGZpV0LBSds6OdJOd6BR9KNFUtRnhhu9OeTyEbRALU QBqeNQ6IIEX8OHZ1IGWhUm1KJUBjJ589qaAgRP8KYn 9FMzQvXK9qdt1JShOtSUUtBniTVnc2XEhdWD6ByKPtAIzDtQRlQX29vmzAPqPrM6Anl8YqVkE9CFOdFd FhHUnmTAAyPmI9DO95aUhdKN0BRHZeCTJuDM99SGF2VXMlLx0JTt3RWtZvBX4bps5SFhOgTXRuNwwEIm h9QKvqPL9RbVOoB7CmpULjr2mPUxYwU8OVSVGoRWGo Mx4MBTZhUoGzVGOnMUrtZI6fUXCzRQQIyFrqsvB0MX6KRO5ucqSyRV4AUkKeBd4hCw9ZRaBnM2IyO3Oc QXMuEYEPOXlxQN5WFMtkXR0dHH3Ll9EHlCYkwY6xfs9SMVLeADNmEzncjb6ETctgJ2K4tSgaTZPsEhIx ULCWDQfjME4FPRAwYVL1XMNbBlCjVQGBHoGoQ26aUS 5MR2Wfa65rRsJ4JRJnAmHqRXhmKM72vBjfrdXodBIxhMowLT4PPo2+DQplbmRvYmoNCnhyZWYNCjAgMz yFSjZhQVCiNJVtBUSrKbJ8BdAaGs8USDWgDBEhIQJgLpBiJKXeTUZyDNccSCRvGXreOfV4UEBuYEMdRR 2UBaFdOVBmDBAgCOjjYRNqBJShqe6PKOJtKOItYQL1 HSSyZUQvQKNeKXmdXCDoZMXzFwUgPCHrAQKdXM5XKlDwCIDzAXB2MnFlJQElRVQojp4IEFZyBSEpCKZj QXHqIQPnJSKmJKhoCIQtNZD2HVRbGUFnHNRsXL5ADkMxWVVlMYG8EMGvGFFjNTSqhw6DXBInLLJoNxDq GOMcWRNtTEHfIYmlGFGnWUY0Juq4GSMkLKKoTX4ANu UtLYDzCVe6RRVtOFOoGVMpbj5WQKWzIIEsKPC7SAGfICFtUXSnXCkoKYXuVFCnJiW2PCFjGJCwRT6LOq EnYZBrMAK8AiSeSPIpQITdlv1QKOSbIWBlVDqwXKZbSTOiEGFyHGdvZCAcMUHdRGJ7NJJkFKEgLY4MAx VvGWZsOHIdNdDfCQHcVFXtzw4EFUKtEDSyEQXxFYNi IGCdEKCaVLhwQSZlEUQ3GWDjBWSqTBLqMH2VQiFeMJOpKCM3HCHrGAHoQVSrwy2EXOXeTWWlQJZ0NtIl SSJnKIQlGZcwZCFsOGC7LQV9JBAlPSPjGS3ZRoDhQSSsBVUyZKUyXMJnOUEvde5TOZUdOHClOGk5UzYk SGCbKGXdJMugWZUyABEoZqK2HVOoBLUfYF8YVqOlQA VdBaN8FsOpHTSuNKXeki0ZGOGxWYE7SmE4FwOiCIWkBCEmCGuaSYIkGIFdHHTnOWPgHQSuXU9CSxPfUK QdMqXzJVkmKFUcYQZulp0PCRUaKBB1HqZsYxJrDRJoTHWcTHuoGKPhATwsSmC7NBPtZDUiGI6NEzVoXG JaZRK9PXcbYWUqJIVnqc1GDRCcPGR0VFGgSIDrETFm RDPfPWzmMJKmVUc6Cnv2PGPcSBHrXZ9WRwJrXGDjWGW4QSMcAJZaKNElyk3SvFHnqHuruo8PDLdEYl8E zVpzIVN1HIxcOt3ckYWhHlYsIDWMZw8BpgQsXLSiPKNUDOdaCCXaVJtkI4SuOeWnG6JoRAc9TjQiTLBs ToNgJpOdOYZ6NcXdNfF7BGOiFJZcRBP4YzPvWSzzVL MwYjNmYWNjMzAwZDliNGE+RX5cASo+Fu3Gn6BtjvY1ehKqPCm2RApzPN0IJIIXL8LKSl== ID Date Data Source [id number] 01/21/2020 09:20:[address] [facility] Name Value Range Interpretation Code Description Data Viki rce(s) Supporting Document(s) EKG 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/8PvZn8MY+pFoEPvFLxiifWscfhb4rO+18 [file] 93XjCh3ng8frdM/3Qb64p6grURuD7yS837YK5V9ky6 Kvwrpvo+3kjLaTM/V0D9727/uUV49IywSifszQ1dc50puRZ+NqYzzvfo/vvKSKPWU6QH/IBnlBdsgBGX vAnvNw73CeO4bGqxHvzP3cKGAp4VzLqfPbCqZ/IkmsSMELkOfsT9BZ8vmgxcg0cbYfERbOHT1eqT/Br2 wT85Ki2YrMhBYEL1A4Wttjg56qEy9XelD/WaujQV3s O17zbFhWwF/gVwZ+EpQVYe9e1Yts/X8U1jhUHost+5ugZnV6LuMJXdwbek7KSiPvtq52NC7p/5Ulvzrz piW/pixj0LdX15oF3g3+Qyb8YxnTjd35G+Q7L6812lsRI8psW+DDcVZ0oJqyA2Pn1KdqjmVikgydUddm Df0JO4XQefut0L+teARsOzRSw43xoCI6HxSj+121v5 dqfVP397tq4ZL0tTb8Yyp5m0410ld6p4xcb67na06r7lSCD+Xhi705L68Sl19H2Gvg9PtUioSk/SU9/6 5jr/Xn92GAtI5L3d+59N8dPO0p+K+K7f0id1cqPbk9qdMwKuUeycWt06DLn1dqtMk22Ifu0EgYk5Fmgw bn2ShKQgp23n8n+KHPcGdPghDmJjiKhb2UUeSsJ+Se say82Lm24ocpx/8l737bt6x8k8+3N0xid95qoo4lMxanr5t59Uxju197SDihHD/X1/5imNf6Ao+9Sh61 bp7GLsOQD6CR6Jytqi/OsTAr+bZXJ0kdQmDF/wb8ahW/Otcp/2Q9faGaALgmd/Mn676VwdtF5d4dpua2 post splitter/oo5OaeRm+MK9GFO1mDo9D0xg6pmPky/g+YJfrc B7tB/UKgpoE4vSH+GOp8C8u4do1IzP/5XDf+SeXoz2Tj6+5U/u9du5sy6vwR49OLx0csg3gzh8bWOyPa /4I169Dwa+oGN/6NWmZVpGic4s/UcYotj1qjChFJIVbXcsC8JB+/g8tF7Gp+UrRfognyPsHukFn7271V ZREfmtvbSeTxxFi650+MWECkh8rgV/2pIhW94WZbQV /TfDtsz4rt08M72s0x+J41it9S9IppfhlYQ/ro521jUMJuJr3YH8Fcg6i/3tvtpO+up1qK/aby4rs6vt 9a87+tlxv95+DAoxN25DAUZb+CKNDhs2qFDgXnmVp322+ULJJea4mZNpJeaUu802/Audie/5XDf+AEf887 [file] dsOH+y+3n/578/FId6fWMOqjXK5yLE+O3tp+3V0Pf/tmnh9Zo/9C6tabytoW0eBTbe/un/+6f4/2+wells fB0Gz60Z80WRKO8R+uu7DNJY4v/RNVEZ9BhLIn8E1ybqoeVK++Lej5jft6/+v53frFE4R0uuTMGm4SN7 +TqwSAVrnbqEx4a4Hw/n5OVDfax7a/iotw6u6v7y3W Bhoc5Pa6jir6g5/aekS/931b0xU//bYDKOwkS5j52/7/sP7+c/eypvob8ik3GpsB/nL/O6+eMYXRZjT4 bd0wOm7r+3zqmIyn2JH0QOoVh9ys0Gzk9jR8rwr3z/OwSBgwd8Hc4umy1vdGpReX5KLSIbLOQ1eAwh88 1ZVBVOrZgoV4/u/wFpH+q0JjPfPXD9hfLkkMjvjzGa YdjBFIdrELZuMga8HH6VcMVdOSVdQ5T7FXFhgc1gNHKoSAQyoWYyHgUiMWWMHO2NiLKuPF2LKVh1OFHc GSZjEoTaGKBzdbS1GVNiYGHqRARcE0DqvdQmeAJwALEwHy6+EP8as0IwEqTqNCMlZop3MN4KdJTwOL6S iVLeeQ4lvsRlG266rdIdHNQxIdclg0UxGEoqTAUUOS 3MFUD1JFC7YQPgPy3+HX7qe7ByEaOmDHXjKfh2MB6LwGBao6IzQO8OP8FkUWWsBTTNZVI9f2EnZBPais ambitpL2VoVGZ4iD1rZOZ8DCJlUCcoXBYjIOMsUeT7ZuEqOWpwEGXzONTkYAIjBJVoRCc6tXPcUE2FG0 AwDWAvXLPDHYAybgWqHm9gSIpZKPtSCWCWHB3WDUNt TOLwFYXfEOOdOD8SoOXzXGM2VFmVILKGMOrXXVcpVjKjl2S9MYCnX5OmETZcnpKfIXXCGMlyVjbqUY4a tVkokakgG8GanOFlBDXRGOTaNJYcJJGlANAlO9Iec5A1T2ZhQAqGFZDTFPtJEGarVrP1b38mhlLWUMYt ZXMpID4+ZN5sp9VvIf0HMSYpGT8vqne5FW0KdAEeBF 7XSKofdqApP8bxauJuZdCkTKRYYG1yJ6VprN09UPM+ErIuIG1dmae4syJaLpKcUJMmBYTcPTMtYQnzYH YbIRPgZNXwSHG0DNX2CBLiZxKuFGEvDQLbVtnkDMKnGCMrlwDKADRjBMZ2DSykZYVrUMDsINMuZJpsNB XmBICuQtwvSVHcBEXdMN1kPaTfYHMgYXTvRIAvOoV8 GsWiGsCQKCNbAZTmVEXyDgVhCIDsKVYaFEmpHDGcLPLrCKl5BYXuMKJkDZ0zSdXzGKPlKUSxRYTjDTTv PKYwksCPBURzLRMiCHT8SBZzOZSjRKDfHOcjNXGcKVKyPNK3PKBkECVsLX6fLjUrODWeBRU4JjGkSCEy PSDkdkAEQNDoHHMtEOH0XIDtSXIrMGMxAMbmWILzVE PbLwH1PEWbWOLdZK2vLpZfHZXvTNG3ZRElHKTuKTBmhqXUCTYdKUGbBXq8LxQyAMCwEELbLScpKPUsUU RtEZbbORAuZKFkCW5tNsMlKCVaYWGfYNLaPRFwJTBvfyUXQMOsWLRaCWW3XnMrWGInISGnGBkvZMKnUV OxIJN1UGKnALZtGD3wYdXtWGEpLGT7YNPlZYEgUDMn rdSKVDRbVJMxBIEzRHPkMGIdRKCiASlcTLBeYHFyNrU9AQBwGOXsLO9hIlCfQAEcQRB2BXEnEQXuSNIs ujNYISDcXJMxMFDlWZP7HFJoQJGsJUh6ikXjfKVfZzm9Kd3QaYogBWQ3Av5OdqCqYOCwFFZITj7Tt914 IDUgMCBSCgo+LtbspNAncPvrVHVLZPOtFLXVPJQTM8M= ID Date Data Source [id number] 01/16/2020 12:00:00 AM EST [facility] Name Value Range Interpretation Code Description Data Viki rce(s) Supporting Document(s) SARS coronavirus 2 RNA [Presence] in Res piratory specimen by BRO with probe detection [facility] This lab was ordered by Molina Valderrama and reported by [facility]. ID Date Data Source [id number] 12/29/2019 03:20:00 PM EST MEDENT ([facility]) Name Value Range Interpretation Code Description Data Viki rce(s) Supporting Document(s) Laboratory test finding (navigational concept) 0.01 ng/mL 0.00-0.08 [facility] ([facility]) ID Date Data Source [id number] 12/29/2019 12:36:00 PM EST MEDENT ([facility]) Name Value Range Interpretation Code Description Data Viki rce(s) Supporting Document(s) Lipoprotein lipase [Enzymatic activity/volume] in Serum or Plasm a 77 U/L 73-393 [facility] Natriuretic peptide.B prohormone N-Terminal [Mass/volu me] in Serum or Plasma 176 pg/mL [facility] ([facility] ) Thyrotropin [Units/volume] in Serum or Plasma by Detec tion limit <= 0.05 mIU/L 1.020 uIU/ML 0.358-3.740 [facility] ) Thyroxine (T4) free [Mass/volume] in Serum or Plasma 2.69 ng/dL 0.76- 1.46 [facility]) ID Date Data Source [id number] 12/29/2019 12:36:00 PM EST MEDENT ([facility]) Name Value Range Interpretation Code Description Data Viki rce(s) Supporting Document(s) Glucose, Fasting 80 mg/dL 70-100 MED[facility] ([facility]) Blood Urea Nitrogen 10 mg/dL 7-18 MEDENT ([facility]) Creatinine For GFR 0.84 mg/dL 0.55-1.30 MED[facility] ([facility]) Sodium Level 137 meq/L 136-145 MED[facility] ([facility]) Glomerular Filtration Rate Laboratory test result [facility] ([facility]) <content>Units are mL/min/1.73 m2</content>
<content></content>
<content>Chronic Kidney Disease Staging per NKF:</content>
<content></content>
<content>Stage I & II GFR >=60 Normal to Mildly Decreased</content>
<content>Stage III GFR 30- 59 Moderately Decreased</content>
<content>Stage IV GFR 15-29 Severely Decreased</content>
<content>Stage V GFR <15 Very Little GFR Left</content>
<content>ESRD GFR <15 on ACTIVITIES ATTENDANT</content>
<content></content> Potassium Serum 4.3 meq/L 3.5-5.1 MEDENT ([facility]) Carbon Dioxide Level 24 meq/L 21-32 MED[facility] ([facility]) Chloride Level 105 meq/L 98-107 MEDENT ([facility]) Calcium Level 9.0 mg/dL 8.8-10.2 MEDENT ([facility]) Anion Gap 8 meq/L 8-16 [facility] ([facility]) ID Date Data Source [id number] 12/29/2019 12:36:00 PM EST MEDENT ([facility]) Name Value Range Interpretation Code Description Data Viki rce(s) Supporting Document(s) Ast/Sgot 16 U/L 7-37 [facility] ([facility]) Bilirubin,Total 0.6 mg/dL 0.2-1.0 MED[facility] ([facility]) Alt/SGPT 17 U/L 12-78 [facility] ([facility]) Alkaline Phosphatase 114 U/L 45-117 MEDENT ([facility]) Bilirubin,Direct 0.1 mg/dL 0.0-0.2 MEDENT ([facility]) Albumin/Globulin Ratio 1.1 1.2-2.2 MED[facility] ([facility]) Total Protein 6.8 GM/DL 6.4-8.2 MEDENT ([facility]) Albumin 3.5 GM/DL 3.2-5.2 [facility] ([facility]) ID Date Data Source [id number] 12/29/2019 12:36:00 PM EST MEDENT ([facility]) Name Value Range Interpretation Code Description Data Viki rce(s) Supporting Document(s) White Blood Count 9.6 10 4.0-10.0 MEDENT ([facility]) Red Blood Count 4.43 10 4.00-5.40 MED[facility] ([facility]) Hemoglobin 13.4 g/dL 12.0-15.5 [facility] ([facility]) Hematocrit 41.5 % 36.0-47.0 [facility] Mean Corpuscular Hemoglobin 30.2 pg 27.0-33.0 ME DENT ([facility]) Mean Corpuscular Volume 93.7 fl 80.0-96.0 MEDENT ([facility]) Red Cell Distribution Width 13.5 % 11.5-14.5 [facility] D[facility] ([facility]) Mean Corpuscular HGB Conc 32.3 g/dL 32.0-36.5 MEDE NT ([facility]) Platelet Count, Automated 288 10 150-450 MEDE NT ([facility]) Neutrophils % 67.5 % 36.0-66.0 MEDENT ([facility]) Lymph % 23.3 % 24.0-44.0 [facility] ([facility]) [place] % 7.7 % 0.0-5.0 [facility] ([facility]) Eos % 0.6 % 0.0-3.0 [facility] ([facility]) Immature Granulocyte % 0.3 % 0-3.0 MED[facility] ([facility]) Baso % 0.6 % 0.0-1.0 [facility] ([facility]) Nucleated Red Blood Cell % 0.0 % 0-0 MED ENT ([facility]) Neutrophils # 6.5 10 1.5-8.5 MEDENT ([facility]) [place] # 0.7 10 0.0-0.8 [facility] ([facility]) Lymph # 2.2 10 1.5-5.0 [facility] ([facility]) Eos # 0.1 10 0.0-0.5 [facility] ([facility]) Baso # 0.1 10 0.0-0.2 [facility] ([facility]) ID Date Data Source [id number] 12/29/2019 12:36:00 PM EST MEDENT ([facility]) Name Value Range Interpretation Code Description Data Viki rce(s) Supporting Document(s) Laboratory test finding (navigational concept) 0.00 ng/mL 0.00-0.08 MEDENT ([facility]) ID Date Data Source [id number] 12/22/2019 12:00:00 AM EST [facility] Patient Name: LIANNE [id number] [facility] Date of : 1955RENNY Valderrama [address] Date of Exam: 12/22/2019PH#: Fax: [phone] EXAM: CT CERVICAL SPINE WITHOUT CONTRASTCLINICAL INFORMATION: Neck pain. Numbness in both hands. History ofsurgery 1996.Comparison study 03/31/2019.CT FINDINGS:The patient is status post ventral diskectomy and fusion plating across theC5-6 disc level as before. Vertebral body heights are preserved.Alignment is normal. There is mild degenerative narrowing of the C4-5 kownlnd-hx-rzwrycgs degenerative narrowing of the C6-7 disc spaces. There isanterior osteophyte formation at C6-7 and mild posterior osteophyticridging is seen at C6-7. No neural foraminal narrowing is appreciated.At C4-5, there is mild right-sided uncovertebral spurring. No significantforaminal stenosis is seen.At C3-4 and C2-3, there is no significant abnormality. 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 The C5-6 disc appears fused with no evidence of residual orrecurrent disc protrusion.Degenerative disc disease at C4-5 and C6-7, unchanged from the comparisonCT study 03/31/2019. The prior study was a CT myelogram and it showed tobetter advantage a central focal disc protrusion at C4-5. This is lessconspicuous but probably unchanged. There is some right-sideduncovertebral spurring at C4-5. No new disc protrusion seen.Accredited by the [employer] in [place].BRADLEY Campos/Mustapha euceda for referring LIANNE TUTTLE to our office.Electronically Signed - ROBERT CHILDERS MD 12/23/19 14:53 Name Value Range Interpretation Code Description Data Viki rce(s) Supporting Document(s) Procedure Social History Code Duration Value Status Description Data Source(s ) Smoking 11/26/2020 12:00:00 AM EDT Patient has never smoked co mpleted Patient has never smoked MEDENT ([facility] ) Smoking 11/04/2020 12:00:00 AM EDT Never Smoker completed Never S moker eCW1 ([facility]) Smoking 11/04/2020 12:00:00 AM EDT Never Smoker completed Never S moker eCW1 ([facility]) Smoking 09/30/2020 12:00:00 AM EDT Never Smoker completed Never S moker eCW1 ([facility]) Smoking 09/30/2020 12:00:00 AM EDT Never Smoker completed Never S moker eCW1 ([facility]) Smoking 09/30/2020 12:00:00 AM EDT Never Smoker completed Never S moker eCW1 ([facility]) Smoking 08/16/2020 12:00:00 AM EDT Never Smoker completed Never S moker eCW1 ([facility]) Smoking 07/15/2020 12:00:00 AM EDT Never Smoker completed Never S moker eCW1 ([facility]) Smoking 07/14/2020 12:00:00 AM EDT Never Smoker completed Never S moker eCW1 ([facility]) Smoking 07/01/2020 12:00:00 AM EDT Never Smoker completed Never S moker eCW1 ([facility]) Alcohol intake 06/29/2020 12:00:00 AM EDT Ex-drinker (finding) comp leted Ex- drinker (finding) [facility] Alcohol intake 06/22/2020 12:00:00 AM EDT Ex-drinker (finding) comp leted Ex- drinker (finding) [facility] Smoking 06/17/2020 12:00:00 AM EDT Never Smoker completed Never S moker eCW1 ([facility]) Smoking 06/17/2020 12:00:00 AM EDT Never Smoker completed Never S moker eCW1 ([facility]) Smoking 04/27/2020 09:54:39 AM EST Never smoked tobacco (findi ng) completed Never smoked tobacco (finding) JERI (Pancho Larsen [facility]) Alcohol intake 03/11/2020 12:00:00 AM EST Not Currently completed [facility] Smoking 03/11/2020 12:00:00 AM EST Never smoker completed Never s moker [facility] Alcohol intake 01/29/2020 12:00:00 AM EST Not Currently completed [facility] Smoking 01/29/2020 12:00:00 AM EST Never smoker completed Never s moker [facility] Alcohol intake 01/21/2020 12:00:00 AM EST Not Currently completed [facility] Smoking 01/21/2020 12:00:00 AM EST Never smoker completed Never s moker [facility] Vital Signs ID Date Data Source [id number] Name Value Range Interpretation Code Description Data Source(s) Systolic blood pressure 140 mm[Hg] 140 mm[Hg] M EDENT ([facility]) Respiratory rate 16 /min 16 /min MEDENT ( [facility]) Diastolic blood pressure 80 mm[Hg] 80 mm[Hg] MEDENT ([facility]) Heart rate 80 /min 80 /min MEDENT ([facility]) Diastolic blood pressure 91 mm[Hg] 91 mm[Hg] [facility] ([facility]) Body weight 198.00 [lb_av] 198.00 [lb_av] MEDEN T ([facility]) Heart rate 85 /min 85 /min [facility] ([facility] Systolic blood pressure 164 mm[Hg] 164 mm[Hg] M EDENT ([facility]) Diastolic blood pressure 92 mm[Hg] 92 mm[Hg] COURT ([facility]) Body height 62 [in_i] 62 [in_i] COURT ([facility]) Systolic blood pressure 126 mm[Hg] 126 mm[Hg] A THENA ([facility]) Diastolic blood pressure 88 mm[Hg] 88 mm[Hg] MEDENT ([facility]) Heart rate 85 /min 85 /min [facility] ([facility]) Body height 61.75 [in_i] 61.75 [in_i] MEDENT ([facility]) 5'1.75" Systolic blood pressure 138 mm[Hg] 138 mm[Hg] M EDENT ([facility]) Oxygen saturation in Arterial blood by Pulse oximetry 99 % 99 % MEDENT ([facility]) RM Air Body height 61.75 [in_i] 61.75 [in_i] MEDENT ([facility]) 5'1.75" Body weight 200.00 [lb_av] 200.00 [lb_av] MEDEN T ([facility]) Diastolic blood pressure 78 mm[Hg] 78 mm[Hg] MEDENT ([facility]) Systolic blood pressure 124 mm[Hg] 124 mm[Hg] M EDENT ([facility]) Heart rate 83 /min 83 /min MED[facility] ([facility]) Oxygen saturation in Arterial blood by Pulse oximetry 96 % 96 % MEDENT ([facility]) RM Air Body mass index (BMI) [Ratio] 36.9 kg/m2 36.9 k g/m2 MEDENT ([facility]) Systolic blood pressure 132 mm[Hg] 132 mm[Hg] M EDENT ([facility]) Diastolic blood pressure 80 mm[Hg] 80 mm[Hg] MEDENT ([facility]) Heart rate 96 /min 96 /min MED[facility] ([facility]) Body height 61.75 [in_i] 61.75 [in_i] MEDENT ([facility]) 5'1.75" Body weight 200.00 [lb_av] 200.00 [lb_av] MEDEN T ([facility]) Body mass index (BMI) [Ratio] 36.9 kg/m2 36.9 k g/m2 MEDENT ([facility]) Systolic blood pressure 152 mm[Hg] 152 mm[Hg] M EDENT ([facility], [facility]) Diastolic blood pressure 89 mm[Hg] 89 mm[Hg] MEDENT ([facility] [place], [facility]) Heart rate 90 /min 90 /min MEDENT ([facility], [facility]) Respiratory rate 16 /min 16 /min MEDENT ( [facility] [place], [facility]) Oxygen saturation in Arterial blood by Pulse oximetry 97 % 97 % MEDENT ([facility] [place], [facility]) Body temperature 98.5 [degF] 98.5 [degF] MEDENT ([facility], [facility]) Body weight 200.00 [lb_av] 200.00 [lb_av] MEDEN T ([facility], [facility]) Body height 64 [in_i] 64 [in_i] MEDENT ([facility]) 5'4" Body mass index (BMI) [Ratio] 34.3 kg/m2 34.3 k g/m2 MEDENT ([facility] [place], [facility]) Body weight 199.6 [lb_av] 199.6 [lb_av] eCW1 ([facility]) Body weight 90.54 kg 90.54 kg W1 ([facility]) Body height 62 [in_i] 62 [in_i] eCW1 ([facility]) Body mass index (BMI) [Ratio] 36.50 kg/m2 36.50 kg/m2 eCW1 ([facility]) Heart rate 80 /min 80 /min eCW1 ([facility]) Respiratory rate 18 /min 18 /min eCW1 ([facility]) Body temperature 97.6 [degF] 97.6 [degF] eCW1 ( [facility]) Systolic blood pressure 190 mm[Hg] 190 mm[Hg] e CW1 ([facility]) Diastolic blood pressure 86 mm[Hg] 86 mm[Hg] eCW1 ([facility]) Body height 60.5 [in_i] 60.5 [in_i] MEDENT ([facility]) 5'0.50" Body weight 198.12 [lb_av] 198.12 [lb_av] MEDEN T ([facility]) Body mass index (BMI) [Ratio] 38.1 kg/m2 38.1 k g/m2 MEDENT ([facility]) Body temperature 97.1 [degF] 97.1 [degF] MEDENT ([facility]) Systolic blood pressure 138 mm[Hg] 138 mm[Hg] M EDENT ([facility]) Diastolic blood pressure 88 mm[Hg] 88 mm[Hg] MEDENT ([facility]) Heart rate 85 /min 85 /min MEDENT ([facility]) Body height 61.75 [in_i] 61.75 [in_i] MEDENT ([facility]) 5'1.75" Body weight 201.00 [lb_av] 201.00 [lb_av] MEDEN T ([facility]) Oxygen saturation in Arterial blood by Pulse oximetry 96 % 96 % MEDENT ([facility]) Air Body mass index (BMI) [Ratio] 37.1 kg/m2 37.1 k g/m2 MEDENT ([facility]) Body height 61.75 [in_i] 61.75 [in_i] MEDENT ([facility]) 5'1.75" Body weight 197.00 [lb_av] 197.00 [lb_av] MEDEN T ([facility]) Body mass index (BMI) [Ratio] 36.3 kg/m2 36.3 k g/m2 MEDENT ([facility]) Systolic blood pressure 130 mm[Hg] 130 mm[Hg] M EDENT ([facility]) Diastolic blood pressure 74 mm[Hg] 74 mm[Hg] MEDENT ([facility]) Heart rate 76 /min 76 /min MEDENT ([facility]) Body height 62 [in_i] 62 [in_i] W1 ([facility]) Body weight 198 [lb_av] 198 [lb_av] eCW1 ([facility]) Body mass index (BMI) [Ratio] 36.21 kg/m2 36.21 kg/m2 [facility] ([facility]) Heart rate 83 /min 83 /min eCW1 ([facility]) Respiratory rate 18 /min 18 /min eCW1 ([facility]) Body temperature 98.2 [degF] 98.2 [degF] eCW1 ( [facility]) Systolic blood pressure 181 mm[Hg] 181 mm[Hg] e CW1 ([facility]) Diastolic blood pressure 98 mm[Hg] 98 mm[Hg] eCW1 ([facility]) Heart rate 68 /min 68 /min MEDENT ([facility] ) Diastolic blood pressure 80 mm[Hg] 80 mm[Hg] MEDENT ([facility] ) Respiratory rate 20 /min 20 /min MEDENT ( [facility] ) Systolic blood pressure 130 mm[Hg] 130 mm[Hg] M EDENT ([facility] ) Body temperature 97.2 [degF] 97.2 [degF] MEDENT ([facility] ) Body mass index (BMI) [Ratio] 36.3 kg/m2 36.3 k g/m2 MEDENT ([facility] ) Body weight 197.00 [lb_av] 197.00 [lb_av] MEDEN T ([facility] ) Body height 61.75 [in_i] 61.75 [in_i] MEDENT ([facility] ) 5'1.75" Body mass index (BMI) [Ratio] 36.50 kg/m2 36.50 kg/m2 eCW1 ([facility]) Body weight 199.6 [lb_av] 199.6 [lb_av] eCW1 ([facility]) Body height 62 [in_i] 62 [in_i] eCW1 ([facility]) Heart rate 83 /min 83 /min eCW1 ([facility]) Respiratory rate 18 /min 18 /min eCW1 ([facility]) Body temperature 98.6 [degF] 98.6 [degF] eCW1 ( [facility]) Systolic blood pressure 171 mm[Hg] 171 mm[Hg] e CW1 ([facility]) Diastolic blood pressure 83 mm[Hg] 83 mm[Hg] eCW1 ([facility]) Body weight 199 [lb_av] 199 [lb_av] eCW1 ([facility]) Body height 62 [in_i] 62 [in_i] eCW1 ([facility]) Body mass index (BMI) [Ratio] 36.39 kg/m2 36.39 kg/m2 eCW1 ([facility]) Heart rate 63 /min 63 /min eCW1 ([facility]) Respiratory rate 18 /min 18 /min eCW1 ([facility]) Body temperature 95.9 [degF] 95.9 [degF] eCW1 ( [facility]) Systolic blood pressure 147 mm[Hg] 147 mm[Hg] e CW1 ([facility]) Diastolic blood pressure 84 mm[Hg] 84 mm[Hg] eCW1 ([facility]) Systolic blood pressure 138 mm[Hg] 138 mm[Hg] [facility] Diastolic blood pressure 90 mm[Hg] 90 mm[Hg] [facility] Heart rate 74 /min 74 /min [facility] Respiratory rate 18 /min 18 /min [facility] Body weight 91.[address] [facility] Body mass index (BMI) [Ratio] 33.71 kg/m2 33.71 kg/m2 [facility] Oxygen saturation in Arterial blood by Pulse oximetry 96 % 96 % [facility] Systolic blood pressure 107 mm[Hg] 107 mm[Hg] [facility] Diastolic blood pressure 81 mm[Hg] 81 mm[Hg] [facility] Heart rate 75 /min 75 /min [facility] Body temperature 36.56 Joan 36.56 Joan [facility] Respiratory rate 18 /min 18 /min [facility] Oxygen saturation in Arterial blood by Pulse oximetry 96 % 96 % [facility] Body height 165.[address] [facility] Body weight 88.[address] [facility] Body mass index (BMI) [Ratio] 32.61 kg/m2 32.61 kg/m2 [facility] Body weight 202.2 [lb_av] 202.2 [lb_av] eCW1 ([facility]) Body height 62 [in_i] 62 [in_i] eCW1 ([facility]) Body mass index (BMI) [Ratio] 36.98 kg/m2 36.98 kg/m2 eCW1 ([facility]) Heart rate 85 /min 85 /min eCW1 ([facility]) Respiratory rate 18 /min 18 /min eCW1 ([facility]) Body temperature 97.7 [degF] 97.7 [degF] eCW1 ( [facility]) Systolic blood pressure 128 mm[Hg] 128 mm[Hg] e CW1 ([facility]) Diastolic blood pressure 74 mm[Hg] 74 mm[Hg] eCW1 ([facility]) Body height 60 [in_i] 60 [in_i] MEDENT ([facility]" Body weight 199.12 [lb_av] 199.12 [lb_av] MEDEN T ([facility]) Diastolic blood pressure 87 mm[Hg] 87 mm[Hg] MEDENT ([facility]) Body mass index (BMI) [Ratio] 38.9 kg/m2 38.9 k g/m2 MEDENT ([facility]) Heart rate 92 /min 92 /min MEDENT ([facility] Respiratory rate 18 /min 18 /min MEDENT ( [facility]) Systolic blood pressure 145 mm[Hg] 145 mm[Hg] M EDENT ([facility]) Systolic blood pressure 155 mm[Hg] 155 mm[Hg] M EDENT ([facility] ) Body weight 202.25 [lb_av] 202.25 [lb_av] MEDEN T ([facility], ) Body mass index (BMI) [Ratio] 35.8 kg/m2 35.8 k g/m2 MEDENT ([facility]) [place] body weight 115 [lb_av] 115 [lb_av] MEDEN T ([facility]) Body weight 91.741 kg 91.741 kg MEDENT ([facility]) Body surface area Derived from formula 1.94 m2 1.94 m2 MEDENT ([facility]) Diastolic blood pressure 94 mm[Hg] 94 mm[Hg] MEDENT ([facility]) Body height 63 [in_i] 63 [in_i] MEDENT ([facility]) 5'3" Systolic blood pressure 120 mm[Hg] 120 mm[Hg] M EDENT ([facility]) Body weight 201.38 [lb_av] 201.38 [lb_av] MEDEN T ([facility]) Oxygen saturation in Arterial blood by Pulse oximetry 99 % 99 % MEDENT ([facility]) Air Body mass index (BMI) [Ratio] 37.1 kg/m2 37.1 k g/m2 MEDENT ([facility]) Diastolic blood pressure 80 mm[Hg] 80 mm[Hg] MEDENT ([facility]) Heart rate 87 /min 87 /min MEDENT ([facility]) Body height 61.75 [in_i] 61.75 [in_i] MEDENT ([facility]) 5'1.75" Systolic blood pressure 126 mm[Hg] 126 mm[Hg] [place] [facility] pressure 74 mm[Hg] 74 mm[Hg] [facility] Heart rate 78 /min 78 /min [facility] Body weight 91.[address] [facility] Body mass index (BMI) [Ratio] 36.76 kg/m2 36.76 kg/m2 [facility] Oxygen saturation in Arterial blood by Pulse oximetry 97 % 97 % [facility] Diastolic blood pressure 89 mm[Hg] 89 mm[Hg] COURT ([facility] Body height 62 [in_i] 62 [in_i] COURT ([facility]) Systolic blood pressure 161 mm[Hg] 161 mm[Hg] A THENA ([facility]) Diastolic blood pressure 89 mm[Hg] 89 mm[Hg] COURT ([facility]) Body height 62 [in_i] 62 [in_i] COURT ([facility]) Systolic blood pressure 161 mm[Hg] 161 mm[Hg] A THENA ([facility]) Diastolic blood pressure 90 mm[Hg] 90 mm[Hg] MEDENT ([facility]) Systolic blood pressure 134 mm[Hg] 134 mm[Hg] M EDENT ([facility]) Body weight 200.00 [lb_av] 200.00 [lb_av] MEDEN T ([facility]) Oxygen saturation in Arterial blood by Pulse oximetry 98 % 98 % MEDENT ([facility]) Body mass index (BMI) [Ratio] 36.9 kg/m2 36.9 k g/m2 MEDENT ([facility]) Body height 61.75 [in_i] 61.75 [in_i] MEDENT ([facility]) 5'1.75" Heart rate 80 /min 80 /min MEDENT ([facility]) Systolic blood pressure 128 mm[Hg] 128 mm[Hg] [facility] Diastolic blood pressure 90 mm[Hg] 90 mm[Hg] [facility] Heart rate 91 /min 91 /min [facility] Body height 157.[address] [facility] Body weight 90.[address] [facility] Body mass index (BMI) [Ratio] 36.58 kg/m2 36.58 kg/m2 [facility] Oxygen saturation in Arterial blood by Pulse oximetry 95 % 95 % [facility] Heart rate 80 /min 80 /min MEDENT ([facility]) Systolic blood pressure 178 mm[Hg] 178 mm[Hg] M EDENT ([facility]) headaches Systolic blood pressure 150 mm[Hg] 150 mm[Hg] M EDENT ([facility]) Body mass index (BMI) [Ratio] 36.9 kg/m2 36.9 k g/m2 MEDENT ([facility]) Diastolic blood pressure 100 mm[Hg] 100 mm[Hg] MEDENT ([facility]) headaches Diastolic blood pressure 88 mm[Hg] 88 mm[Hg] MEDENT ([facility]) Body height 61.75 [in_i] 61.75 [in_i] THAIENT ([facility]) 5'1.75" Body weight 200.00 [lb_av] 200.00 [lb_av] MEDEN T ([facility]) Diastolic blood pressure 95 mm[Hg] 95 mm[Hg] COURT ([facility]) Body height 62 [in_i] 62 [in_i] COURT ([facility]) Systolic blood pressure 166 mm[Hg] 166 mm[Hg] A THENA ([facility]) Diastolic blood pressure 95 mm[Hg] 95 mm[Hg] COURT ([facility]) Body height 62 [in_i] 62 [in_i] COURT ([facility]) Systolic blood pressure 166 mm[Hg] 166 mm[Hg] A THENA ([facility]) Diastolic blood pressure 95 mm[Hg] 95 mm[Hg] COURT ([facility]) Body height 62 [in_i] 62 [in_i] COURT ([facility]) Systolic blood pressure 166 mm[Hg] 166 mm[Hg] A THENA ([facility]) Systolic blood pressure 157 mm[Hg] 157 mm[Hg] [facility] Diastolic blood pressure 92 mm[Hg] 92 mm[Hg] [facility] Heart rate 77 /min 77 /min [facility] Body temperature 36.44 Joan 36.44 Joan [facility] Respiratory rate 17 /min 17 /min [facility] Oxygen saturation in Arterial blood by Pulse oximetry 95 % 95 % [facility] Body weight 89.[address] [facility] Body mass index (BMI) [Ratio] 38.53 kg/m2 38.53 kg/m2 [facility] Body height 152.[address] [facility] Systolic blood pressure 145 mm[Hg] 145 mm[Hg] M EDENT ([facility]) Diastolic blood pressure 96 mm[Hg] 96 mm[Hg] MEDENT ([facility]) Heart rate 74 /min 74 /min MEDENT ([facility]) Body temperature 97.1 [degF] 97.1 [degF] MEDENT ([facility]) Respiratory rate 16 /min 16 /min MEDENT ( [facility]) Oxygen saturation in Arterial blood by Pulse oximetry 94 % 94 % MEDENT ([facility]) Heart rate 87 /min 87 /min MEDENT ([facility] Respiratory rate 16 /min 16 /min MEDENT ( [facility] Body weight 202.50 [lb_av] 202.50 [lb_av] MEDEN T ([facility]) Body height 60 [in_i] 60 [in_i] MEDENT ([facility] 5'0" Systolic blood pressure 151 mm[Hg] 151 mm[Hg] M EDENT ([facility] Diastolic blood pressure 87 mm[Hg] 87 mm[Hg] MED[facility] ([facility] Body mass index (BMI) [Ratio] 39.5 kg/m2 39.5 k g/m2 MED[facility] ([facility] Diastolic blood pressure 95 mm[Hg] 95 mm[Hg] COURT ([facility]) Body height 62 [in_i] 62 [in_i] COURT ([facility]) Systolic blood pressure 175 mm[Hg] 175 mm[Hg] A THENA ([facility]) Diastolic blood pressure 95 mm[Hg] 95 mm[Hg] COURT ([facility]) Body height 62 [in_i] 62 [in_i] COURT ([facility]) Systolic blood pressure 175 mm[Hg] 175 mm[Hg] A THENA ([facility]) Diastolic blood pressure 95 mm[Hg] 95 mm[Hg] COURT ([facility]) Body height 62 [in_i] 62 [in_i] COURT ([facility]) Systolic blood pressure 175 mm[Hg] 175 mm[Hg] A THENA ([facility]) Diastolic blood pressure 95 mm[Hg] 95 mm[Hg] COURT ([facility]) Body height 62 [in_i] 62 [in_i] COURT ([facility]) Systolic blood pressure 175 mm[Hg] 175 mm[Hg] A THENA ([facility]) Diastolic blood pressure 80 mm[Hg] 80 mm[Hg] MEDENT ([facility]) Systolic blood pressure 130 mm[Hg] 130 mm[Hg] M EDENT ([facility]) Body mass index (BMI) [Ratio] 37.6 kg/m2 37.6 k g/m2 MEDENT ([facility]) Body weight 204.00 [lb_av] 204.00 [lb_av] MEDEN T ([facility]) Body height 61.75 [in_i] 61.75 [in_i] MEDENT ([facility]) 5'1.75" Heart rate 76 /min 76 /min MEDENT ([facility] ) Respiratory rate 16 /min 16 /min MEDENT ( [facility]) Systolic blood pressure 118 mm[Hg] 118 mm[Hg] [facility] Diastolic blood pressure 80 mm[Hg] 80 mm[Hg] MEDENT ([facility] ) Diastolic blood pressure 87 mm[Hg] 87 mm[Hg] COURT ([facility]) Diastolic blood pressure 87 mm[Hg] 87 mm[Hg] COURT ([facility]) Body height 62 [in_i] 62 [in_i] COURT ([facility]) Systolic blood pressure 147 mm[Hg] 147 mm[Hg] A THENA ([facility]) Body height 62 [in_i] 62 [in_i] COURT ([facility]) Systolic blood pressure 147 mm[Hg] 147 mm[Hg] A THENA ([facility]) Diastolic blood pressure 87 mm[Hg] 87 mm[Hg] COURT ([facility]) Body height 62 [in_i] 62 [in_i] COURT ([facility]) Systolic blood pressure 147 mm[Hg] 147 mm[Hg] A THENA ([facility]) Diastolic blood pressure 87 mm[Hg] 87 mm[Hg] COURT ([facility]) Body height 62 [in_i] 62 [in_i] COURT ([facility]) Systolic blood pressure 147 mm[Hg] 147 mm[Hg] A THENA ([facility]) Diastolic blood pressure 87 mm[Hg] 87 mm[Hg] COURT ([facility]) Body height 62 [in_i] 62 [in_i] COURT ([facility]) Systolic blood pressure 147 mm[Hg] 147 mm[Hg] A THENA ([facility]) Patient Treatment Plan of Care Planned Activity Planned Date Details Description Data Source (s) onabotulinumtoxinA 100 UNT/ML Injectable Solution [Bot ox] 11/01/2020 12:00:00 AM EDT eCW1 ([facility]) onabotulinumtoxinA 100 UNT/ML Injectable Solution [Bot ox] 07/08/2020 12:00:00 AM EDT eCW1 ([facility]) Lisinopril 20 MG Oral Tablet 06/24/2020 12:00:[address] [facility] normal saline flush 0.9 % injection 3 mL 06/22/2020 03:00:[address] [facility] sodium chloride 0.9% (NS) infusion 06/22/2020 03:00:[address] [facility] Nitroglycerin 0.4 MG Sublingual Tablet 06/22/2020 02:18:[address] [facility] 10 ML Atropine Sulfate 0.1 MG/ML Prefilled Syringe 06/22/2020 02 :18:[address] [facility] normal saline flush 0.9 % injection 3 mL 06/22/2020 02:00:[address] [facility] normal saline flush 0.9 % injection 3 mL 06/22/2020 02:00:[address] [facility] clopidogrel 75 MG Oral Tablet 06/22/2020 12:00:[address] [facility] 24 HR Isosorbide Mononitrate 30 MG Extended Release Or al Tablet 06/16/2020 12:00:[address] [facility] Lisinopril 20 MG Oral Tablet 06/15/2020 12:00:[address] [facility] prednisolone acetate 10 MG/ML Ophthalmic Suspension 05/29/19 12:00:[address] [facility] clopidogrel 75 MG Oral Tablet 05/19/2020 12:00:[address] [facility] atorvastatin 80 MG Oral Tablet 04/28/2020 12:00:[address] [facility] Bisoprolol Fumarate 10 MG Oral Tablet 04/28/2020 12:00:[address] [facility] prednisolone acetate 10 MG/ML Ophthalmic Suspension 04/28/19 12:00:00 AM EST [place] (Pancho Larsen MD [facility]) Lisinopril 10 MG Oral Tablet 03/11/2020 12:00:[address] [facility] 120 ACTUAT Fluticasone propionate 0.23 M G/ACTUAT / salmeterol 0.021 MG/ACTUAT Metered Dose Inhaler [Advair] 03/06/2020 12:00:[address] [facility] Bisoprolol Fumarate 10 MG Oral Tablet 01/29/2020 12:00:[address] [facility] atorvastatin 80 MG Oral Tablet 01/29/2020 12:00:[address] [facility] 24 HR Isosorbide Mononitrate 30 MG Extended Release Or al Tablet 01/24/2020 12:00:[address] [facility] Bisoprolol Fumarate 5 MG Oral Tablet 01/24/2020 12:00:[address] [facility] Lisinopril 5 MG Oral Tablet 01/23/2020 12:00:[address] [facility] clopidogrel 75 MG Oral Tablet 01/23/2020 12:00:[address] [facility] Trazodone Hydrochloride 100 MG Oral Tablet 01/08/2020 12:00:00 AM E [facility] clopidogrel 75 MG Oral Tablet 12/30/2019 12:00:[address] [facility] 120 ACTUAT Fluticasone propionate 0.23 M G/ACTUAT / salmeterol 0.021 MG/ACTUAT Metered Dose Inhaler [Advair] 12/09/2019 12:00:[address] [facility] gabapentin 600 MG Oral Tablet 11/11/2019 12:00:[address] [facility] Magnesium Hydroxide 80 MG/ML Oral Suspension 09/15/2019 10:00:00 PM [facility] 8.6 MG Oral Tablet 09/15/2019 11:07:07 AM [facility] 35.2 MG/ML Oral Solution 09/15/2019 11:07:07 AM [facility] Acetaminophen 325 MG Oral Tablet 09/15/2019 11:07:06 AM [facility] Bisacodyl 10 MG Rectal Suppository 09/15/2019 11:07:06 AM [facility] carvedilol 25 MG Oral Tablet 08/11/2019 12:00:[address] [facility] fluticasone (FLONASE) 50 MCG/ACT nasal spray 02/22/2019 12:00:[address] [facility] loteprednol etabonate 0.005 MG/MG Ophthalmic Ointment [Lotemax] 02/08/2018 12:00:00 AM [facility] (Pancho Larsen MD [facility]) Lisinopril 2.5 MG Oral Tablet 05/17/2016 12:00:[address] [facility] atorvastatin 40 MG Oral Tablet 03/17/2016 12:00:[address] [facility] Melatonin 10 MG Oral Tablet 03/17/2016 12:00:[address] [facility] alcaftadine 2.5 MG/ML Ophthalmic Solution [Lastacaft] 01/20/2016 12:00:00 AM EST [place] (Pancho Larsen MD [facility]) Trazodone Hydrochloride [address] ([facility]) tramadol hydrochloride [address] ([facility]) Oxycodone Hydrochloride [address] ([facility]) Ondansetron [address] ([facility]) Nystatin 767229 UNT/ML Topical Cream COURT ([facility]) NITROFURANTOIN, MACROCRYSTALS 25 MG / Ni trofurantoin, Monohydrate [address] ([facility]) Lisinopril [address] ([facility]) Lisinopril 2.[address] ([facility] Lisinopril [address] ([facility]) Isosorbide Dinitrate [address] ([facility]) Ibuprofen [address] ([facility]) Acetaminophen 325 MG / Hydrocodone Bitartrate [address] ([facility]) Clonazepam 0.[address] ([facility]) carvedilol [address] ([facility]) Bisoprolol Fumarate [address] ([facility]) atorvastatin [address] ([facility]) 24 HR Isosorbide Mononitrate 30 MG Extended Release Oral Tablet [facility] Oxycodone Hydrochloride [address] [facility] Diclofenac Sodium 0.01 MG/MG Topical Gel [facility] 120 ACTUAT Fluticasone propionate 0.115 MG/ACTUAT / salmeterol 0.021 MG/ACTUAT Metered Dose Inhaler [facility] Trazodone Hydrochloride [address] [facility] Trazodone Hydrochloride [address] ([facility]) tramadol hydrochloride [address] ([facility]) Oxycodone Hydrochloride [address] ([facility]) Ondansetron [address] ([facility]) Nystatin 126958 UNT/ML Topical Cream COURT ([facility]) Lisinopril 2.[address] ([facility]) Isosorbide Dinitrate [address] ([facility]) Acetaminophen 325 MG / Hydrocodone Bitartrate [address] ([facility]) fluticasone propionate 50 mcg/actuation nasal spray,suspension COURT ([facility]) Bisoprolol Fumarate [address] ([facility]) atorvastatin [address] ([facility]) Oxycodone Hydrochloride [address] ([facility]) Ondansetron [address] ([facility]) Isosorbide Dinitrate [address] ([facility]) fluticasone propionate 50 mcg/actuation nasal spray,suspension COURT ([facility]) CALCIUM CARBONATE-VITAMIN D PO [facility] Trazodone Hydrochloride [address] ([facility])
== END 2020-11-14 11:15 | disposition home or self-care (01) ==
LOC: M ED 15:36 → M MS5PR 15:37 → UNDOADMOB 11-13 00:19 → M ED INP 11-13 00:19 → M MS5PR 11-13 02:03 → UNDODISOB 11-14 11:15
PROVIDERS: ADMIT Internal Medicine; ATTEND Internal Medicine
DX: M70.41 Prepatellar bursitis, right knee (principal); L03.115 Cellulitis of right lower limb; S80.211A Abrasion, right knee, initial encounter; S80.01XA Contusion of right knee, initial encounter; W01.0XXA Fall on same level from slipping, tripping and stumbling without subsequent striking against object, initial encounter; Y92.018 Other place in single-family (private) house as the place of occurrence of the external cause; M17.11 Unilateral primary osteoarthritis, right knee; I10 Essential (primary) hypertension; E78.5 Hyperlipidemia, unspecified; I25.2 Old myocardial infarction; Z95.5 Presence of coronary angioplasty implant and graft; I25.10 Atherosclerotic heart disease of native coronary artery without angina pectoris; J45.909 Unspecified asthma, uncomplicated; K21.9 Gastro-esophageal reflux disease without esophagitis; M54.9 Dorsalgia, unspecified; Z96.82 Presence of neurostimulator; E66.9 Obesity, unspecified; F41.9 Anxiety disorder, unspecified; Z79.899 Other long term (current) drug therapy; Z79.02 Long term (current) use of antithrombotics/antiplatelets; Z79.82 Long term (current) use of aspirin; Z79.2 Long term (current) use of antibiotics; Z88.6 Allergy status to analgesic agent; Z88.0 Allergy status to penicillin; Z88.1 Allergy status to other antibiotic agents; Z88.5 Allergy status to narcotic agent; Z88.8 Allergy status to other drugs, medicaments and biological substances
CPT/HCPCS: 20610; 36415; 80048; 80202; 83605; 85025; 85652; 86140; 87040; 87070; 87075; 87205; 89051; 96365; 96366; 96372; 97161; 99284; G0378; J1644; J3370; U0002

== ENCOUNTER → 2020-11-23 | Outpatient (CLI) | payer MEDICARE, BC ==
[~2020-11-23] MED LIST changes: +ADVA230A INH; +ATOR80TA59 PO; +BISO10TA13 PO; +CEPH500C PO; +DOXY-350 PO; +ISOS1TAB35 PO; +LIDO5DIS41 TD; +LISI20TA33 PO; +OYST500T25 PO; +REST0.05 OU; +TRAZ-257 PO
[2020-11-23 14:05] LABS: BASO # 0.1 10^3/uL (0.0-0.2); BASO % 0.8 % (0.0-1.0); EOS % 0.4 % (0.0-3.0); HEMATOCRIT 39.2 % (36.0-47.0); HEMOGLOBIN 12.5 g/dl (12.0-15.5); LYMPH # 2.4 10^3/uL (1.5-5.0); LYMPH % 22.5 % (24.0-44.0); MEAN CORPUSCULAR HEMOGLOBIN 30.8 pg (27.0-33.0); MEAN CORPUSCULAR HGB CONC 31.9 g/dl (32.0-36.5); MEAN CORPUSCULAR VOLUME 96.6 fl (80.0-96.0); MONO # 0.8 10^3/uL (0.0-0.8); MONO % 7.2 % (2.0-8.0); NEUTROPHILS # 7.2 10^3/uL (1.5-8.5); NEUTROPHILS % 68.7 % (36.0-66.0); PLATELET COUNT, AUTOMATED 383 10^3/uL (150-450); RED BLOOD COUNT 4.06 10^6/uL (4.00-5.40); WHITE BLOOD COUNT 10.5 10^3/uL (4.0-10.0)
[2020-11-23 14:25] LABS: ERYTHROCYTE SEDIMENTATION RATE 27 mm/hr (0-30)
== END ==
LOC: M LAB 12:49
PROVIDERS: ATTEND Physician Assistant Surgical
DX: S80.01XD Contusion of right knee, subsequent encounter (principal)

== ENCOUNTER → 2020-12-07 | Outpatient (CLI) | payer MEDICARE, BC ==
[2020-12-07 13:00] LABS: BASO # 0.1 10^3/uL (0.0-0.2); BASO % 0.7 % (0.0-1.0); EOS % 0.5 % (0.0-3.0); HEMATOCRIT 38.5 % (36.0-47.0); HEMOGLOBIN 12.3 g/dl (12.0-15.5); LYMPH % 24.9 % (24.0-44.0); MEAN CORPUSCULAR HEMOGLOBIN 30.2 pg (27.0-33.0); MEAN CORPUSCULAR HGB CONC 31.9 g/dl (32.0-36.5); MEAN CORPUSCULAR VOLUME 94.6 fl (80.0-96.0); MONO # 0.6 10^3/uL (0.0-0.8); MONO % 6.8 % (2.0-8.0); NEUTROPHILS # 5.4 10^3/uL (1.5-8.5); NEUTROPHILS % 66.6 % (36.0-66.0); PLATELET COUNT, AUTOMATED 311 10^3/uL (150-450); RED BLOOD COUNT 4.07 10^6/uL (4.00-5.40); WHITE BLOOD COUNT 8.1 10^3/uL (4.0-10.0)
[2020-12-07 13:35] LABS: ERYTHROCYTE SEDIMENTATION RATE 24 mm/hr (0-30)
== END ==
LOC: M LAB 11:43
PROVIDERS: ATTEND Physician Assistant
DX: S80.01XD Contusion of right knee, subsequent encounter (principal); X58.XXXD Exposure to other specified factors, subsequent encounter; Y92.89 Other specified places as the place of occurrence of the external cause

== ENCOUNTER 2021-01-22 21:10 | Inpatient (IN) | payer MEDICARE, BC ==
[~2021-01-22] VITALS: Ht 154.9 cm; Wt 88.5 kg
--- OUTSIDE RECORDS SUMMARY | 2021-01-22 21:21 | CCD | Continuity of Care Document ---
Author Author Lianne PAINTER [facility] Organization Unknown Address [address] [place] [address] [place] [address] Phone [phone] Care Team Providers Care Land Clearer Name Role Phone Bill Tapia MD [facility] [phone] Problems Description No Information Available Social History Type Date Description Comments Sex Unknown ETOH Use Denies alcohol use Tobacco Use Start: Unknown Patient has never smoked Tobacco Use Start: Unknown The Patient Has Never Vaped Smoking Status Reviewed: 01/07/21 The Patient Has Never Vaped Allergies and adverse reactions Active Allergies Criticality Reaction | Severity Comments Date Morphine Unable to assess criticality jittery 11/23/2011 Lyrica Unable to assess criticality blurred vision 11/23/2011 Darvocet Unable to assess criticality hallucinations 11/23/2011 Medications Active Medications SIG Qnty Indications Ordering Provide r Date Amoxicillin 875mg Tablets take one tablet every 12 hrs.x 10 days. 20tabs J01.10 Tom Kim JR., M.D. 01/07/2021 Albuterol Fha 90mcg/Act Aerosol 2 puffs q4hrs./prn sob or wheezing Unknown Flonase Allergy Relief Unknown Advair Diskus Unknown Ec-[id number] Unknown Plavix Unknown Lisinopril 20mg Tablets 1 by mouth every day Unknown Oxycodone-Acetaminophen 5-325mg Ta blets last dose yesterday Unknown Trazodone HCL 50mg Tablets po qhs 30tabs Unknown Topiramate 100mg Tablets bid Unknown Sucralfate 1gm Tablets qid Unknown Restasis 0.05% Emulsion Unknown Miralax [id number] Packet one dose daily as needed if no bowel movement for 3 days. Unknown Pantoprazole Sodium 40mg Tablets DR bid Unknown Nortriptyline HCL 25mg Capsules qd Unknown Mvi daily Unknown Singulair 10mg Tablets 1hs - take one tablet by mouth at bedtime Unknown Magnesium 400mg Capsules bid Unknown Lidocaine Patches od Unknown 000 Gabapentin 100mg Capsules tid Unknown Flonase 50mcg/Act Suspension 1 spray per nostril bid Unknown Clonazepam 0.5mg Tablets bid Unknown Cetirizine HCL 10mg Tablets 1 po qd Unknown Atorvastatin Calcium 20mg Tablets 1 po qd Unknown Atenolol 100mg Tablets qd Unknown History Medications Cephalexin 500mg Tablets 1 tab by mouth three times a day for 10 days 30tabs L03.116 Tom Kim JR., M.D. 11/08/2020 - 11/17/2020 Immunizations Description No Information Available Vital Signs Date Vital Result Comment 01/07/2021 2:11pm BP Systolic 123 mmHg BP Diastolic 84 mmHg Heart Rate 98 /min Respiratory Rate 12 /min O2 % BldC Oximetry 98 % Body Temperature 97.8 F Weight 200.00 lb Height 62 inches 5'2" BMI (Body Mass Index) 36.6 kg/m2 Pain Level 6 11/08/2020 4:34pm BP Systolic 152 mmHg BP Diastolic 89 mmHg Heart Rate 90 /min Respiratory Rate 16 /min O2 % BldC Oximetry 97 % Body Temperature 98.5 F Weight 200.00 lb Height 64 inches 5'4" BMI (Body Mass Index) 34.3 kg/m2 Pain Level 9 Results Description No Information Available Procedures Date Code Description Status 01/07/2021 51162 Office/Outpatient Established Lo w MDM 20-29 Min Completed 11/08/2020 30610 Office/Outpatient New Low MDM 30 -44 Minutes Completed Medical Devices Description No Information Available Encounters Type Date Location Provider Dx Diagnosis Office Visit 01/07/2021 12:25p Main Office RADHA Benjamin J01 .10 Acute frontal sinusitis, unspecified R05.9 Cough, unspecified Z20.828 Contact w and exposure to ot h viral communicable diseases Office Visit 11/08/2020 1:50p Main Office Oswaldo Laws, P.A. L0 3.116 Cellulitis of left lower limb Assessments Date Code Description Provider 01/07/2021 J01.10 Acute frontal sinusitis, unspeci fied RADHA Benjamin 01/07/2021 R05.9 Cough, unspecified RADHA Akhtar 01/07/2021 Z20.828 Contact with and (heard spected) exposure to other viral communicable diseases RADHA Benjamin 11/08/2020 L03.116 Cellulitis of left lower limb Chanel Laws, P.A. Plan of Treatment No Information Available Functional Status Description No Information Available Mental Status Description No Information Available Referrals Description No Information Available
--- OUTSIDE RECORDS SUMMARY | 2021-01-22 21:21 | CCD | Continuity of Care Document ---
Author Author Lianne SUMMERS DPT Organization Unknown Address [address] [place] [id number] Phone [phone] Care Team Providers Care Fisher Lampara Net Name Role Phone Bill Tapia MD [facility] [phone] Problems Description No Active Problems Social History [...] Result H/L Range Note CBC With Differential 12/07/[address] [address] (315)- - White Blood Count 8.1 10 Normal 4.0-10.0 Red Blood Count 4.07 10 Normal 4.00-5.40 Hemoglobin 12.3 g/dL Normal 12.0-15.5 Hematocrit 38.5 % Normal 36.0-47.0 Mean Corpuscular Volume 94.6 fl Normal 80.0-96.0 Mean Corpuscular Hemoglobin 30.2 pg Normal 27.0-33.0 Mean Corpuscular HGB Conc 31.9 g/dL Low 32.0-36.5 Red Cell Distribution Width 14.3 % Normal 11.5-14.5 Platelet Count, Automated 311 10 Normal 150-450 Neutrophils % 66.6 % High 36.0-66.0 Lymph % 24.9 % Normal 24.0-44.0 [place] % 6.8 % Normal 2.0-8.0 Eos % 0.5 % Normal 0.0-3.0 Baso % 0.7 % Normal 0.0-1.0 Immature Granulocyte % 0.5 % Normal 0-3.0 Nucleated Red Blood Cell % 0.0 % Normal 0-0 Neutrophils # 5.4 10 Normal 1.5-8.5 Lymph # 2.0 10 Normal 1.5-5.0 [place] # 0.6 10 Normal 0.0-0.8 Eos # 0.0 10 Normal 0.0-0.5 Baso # 0.1 10 Normal 0.0-0.2 Laboratory test finding 12/07/2020 [facility] [address] [place] [address] [phone] - Erythrocyte Sedimentation Rate 24 mm/hr Normal 0-30 C Reactive Protein Quantitativ 0.95 mg/dL High 0.00-0.30 CBC With Differential 11/23/2020 [facility] [address] [place] [address] (315)- - White Blood Count 10.5 10 [...] 36.0-66.0 Lymph % 22.5 % Low 24.0-44.0 [place] % 7.2 % Normal 2.0-8.0 Eos % 0.4 % Normal 0.0-3.0 Baso % 0.8 % Normal 0.0-1.0 Immature Granulocyte % 0.4 % Normal 0-3.0 Nucleated Red Blood Cell % 0.0 % Normal 0-0 Neutrophils # 7.2 10 Normal 1.5-8.5 Lymph # 2.4 10 Normal 1.5-5.0 [place] # 0.8 10 Normal 0.0-0.8 Eos # 0.0 10 Normal 0.0-0.5 Baso # 0.1 10 Normal 0.0-0.2 Laboratory test finding 11/23/2020 [facility] [address] [place] [address] [phone])- - Erythrocyte Sedimentation Rate 27 mm/hr Normal 0-30 C Reactive Protein Quantitativ 0.94 mg/dL High 0.00-0.30 Procedures Date Code Description Status 12/27/2020 45823 Therapeutic Procedure, Each 15 M inutes Completed 12/23/2020 63935 Manual Therapy Each 15 Minutes C ompleted 12/23/2020 70495 Therapeutic Procedure, Each 15 M inutes Completed 12/20/2020 89140 Physical Therapy Eval - Low Comp lexity Completed 12/07/2020 09378 Office/Outpatient Established Mo d MDM 30-39 Min Completed 12/02/2020 37918 Phone Evaluation/Management By Sue marquez 5-10 Mins Completed 11/23/2020 45625 Office/Outpatient Established Lo w MDM 20-29 Min Completed 11/11/2020 02220 Office/Outpatient Established Mo d MDM 30-39 Min Completed 11/11/2020 22653 X-Ray Knee Complete W/Obliques & Tunnel And/Or Standing Views Completed 11/04/2020 96727 Office/Outpatient Established Lo w MDM 20-29 Min Completed 10/29/2020 07627 Therapeutic Procedure, Each 15 M inutes Completed 10/27/2020 00824 Therapeutic Procedure, Each 15 M inutes Completed 10/22/2020 57157 Therapeutic Procedure, Each 15 M inutes Completed 10/19/2020 51069 Therapeutic Procedure, Each 15 M inutes Completed 10/15/2020 90069 Therapeutic Procedure, Each 15 M inutes Completed 10/12/2020 39794 Therapeutic Procedure, Each 15 M inutes Completed 10/08/2020 66307 Therapeutic Procedure, Each 15 M inutes Completed 10/05/2020 10669 Manual Therapy Each 15 Minutes C ompleted 10/05/2020 12269 Therapeutic Procedure, Each 15 M inutes Completed 09/29/2020 15099 Inject/Drain Joint/Bursa Major C ompleted 09/29/2020 37318 Manual Therapy Each 15 Minutes C ompleted 09/29/2020 79475 Office/Outpatient Established Lo w MDM 20-29 Min Completed 09/29/2020 30334 Therapeutic Procedure, Each 15 M inutes Completed 09/27/2020 32929 Therapeutic Procedure, Each 15 M inutes Completed 09/24/2020 49285 Therapeutic Procedure, Each 15 M inutes Completed 09/22/2020 75442 Therapeutic Procedure, Each 15 M inutes Completed 09/16/2020 31185 Manual Therapy Each 15 Minutes C ompleted 09/16/2020 68602 Therapeutic Procedure, Each 15 M inutes Completed 09/13/2020 14329 Manual Therapy Each 15 Minutes C ompleted 09/13/2020 31086 Therapeutic Procedure, Each 15 M inutes Completed 09/10/2020 31762 Therapeutic Procedure, Each 15 M inutes Completed 09/10/2020 11233 Manual Therapy Each 15 Minutes C ompleted 09/06/2020 82149 Manual Therapy Each 15 Minutes C ompleted 09/06/2020 68079 Therapeutic Procedure, Each 15 M inutes Completed 09/03/2020 97709 Manual Therapy Each 15 Minutes C ompleted 09/03/2020 37619 Therapeutic Procedure, Each 15 M inutes Completed 09/01/2020 68313 Manual Therapy Each 15 Minutes C ompleted 09/01/2020 44164 Therapeutic Procedure, Each 15 M inutes Completed 08/26/2020 08596 Physical Therapy Eval - Low Comp lexity Completed 08/17/2020 50928 Office/Outpatient Established Lo w MDM 20-29 Min Completed 08/17/2020 28556 X-Ray Hips Bilateral With Pelvis 3-4 Views Completed Medical Devices Description No Information Available Encounters Type Date Location Provider Dx Diagnosis Office Visit 12/07/2020 9:30a Jannie Martin PA-C S8 0.01xD Contusion of right knee, subsequent encounter L03.115 Cellulitis of right lower li mb M70.62 Trochanteric bursitis, left hip M70.61 Trochanteric bursitis, right hip Office Visit 12/02/2020 1:40p RADHA Weinberg M70.62 Trochanteric bursitis, left hip M70.61 Trochanteric bursitis, right hip Office Visit 11/23/2020 11:15a Jannie Aguero PA-C S80.01x D Contusion of right knee, subsequent encounter L03.115 Cellulitis of right lower li mb Office Visit 11/11/2020 2:40p Jannei Martin PA-C L0 3.115 Cellulitis of right lower limb M79.661 Pain in right lower leg Office Visit 11/04/2020 2:00p Jannie Benavides, P.ADiane S80.01xA Contusion of right knee, initial encounter [...] left hip Assessments Date Code Description Provider 12/27/2020 S80.01xD Contusion of right knee, subsequ ent encounter Latonya Power, WIRE DRAWER 12/27/2020 M70.62 Trochanteric bursitis, left hip Latonya Power, WIRE DRAWER 12/23/2020 S80.01xD Contusion of right knee, subsequ ent encounter Vin Peters Elginkraig, PT, DPT 12/23/2020 M70.62 Trochanteric bursitis, left hip Vin Peters Elginkraig, PT, DPT 12/20/2020 S80.01xD Contusion of right knee, subsequ ent encounter Vin Peters Melina, PT, DPT 12/20/2020 M70.62 Trochanteric bursitis, left hip Vin Peters Melina, PT, DPT 12/07/2020 S80.01xD Contusion of right knee, subsequ ent encounter Tenzin Martin PA-C 12/07/2020 L03.115 Cellulitis of right lower limb B mario Martin PA-C 12/07/2020 M70.62 Trochanteric bursitis, left hip Tenzin Martin PA-C 12/07/2020 M70.61 Trochanteric bursitis, right hip Tenzin Martin PA-C 12/02/2020 M70.62 Trochanteric bursitis, left hip Herrera Grant, RADHA 12/02/2020 M70.61 Trochanteric bursitis, right hip Herrera Grant, PA 11/26/2020 M70.62 Trochanteric bursitis, left hip Fam Short P.T. 11/26/2020 M70.61 Trochanteric bursitis, right hip Fam Short P.T. 11/26/2020 M16.0 Bilateral primary osteoarthritis of hip Fam Short P.T. 11/23/2020 S80.01xD Contusion of right knee, [...] primary osteoarthritis of hip Latonya Luci Power, WIRE DRAWER 10/29/2020 M70.61 Trochanteric bursitis, right hip Latonya Luci Power, WIRE DRAWER 10/29/2020 M70.62 Trochanteric bursitis, left hip Latonya Luci Power, WIRE DRAWER 10/27/2020 M16.0 Bilateral primary osteoarthritis of hip Latonya Luci Power, WIRE DRAWER 10/27/2020 M70.61 Trochanteric bursitis, right hip Latonya Luci Power, WIRE DRAWER 10/27/2020 M70.62 Trochanteric bursitis, left hip Latonya Luci Power, WIRE DRAWER 10/22/2020 M16.0 Bilateral primary osteoarthritis of hip Latonya Luci Power, WIRE DRAWER 10/22/2020 M70.61 Trochanteric bursitis, right hip Latonya Luci Power, WIRE DRAWER 10/22/2020 M70.62 Trochanteric bursitis, left hip Latonya Luci Power, WIRE DRAWER 10/19/2020 M16.0 Bilateral primary osteoarthritis of hip Latonya Luci Power, WIRE DRAWER 10/19/2020 M70.61 Trochanteric bursitis, right hip Latonya Luci Power, WIRE DRAWER 10/19/2020 M70.62 Trochanteric bursitis, left hip Latonya Luci Power, WIRE DRAWER 10/15/2020 M16.0 Bilateral primary osteoarthritis of hip Latonya Luci Power, WIRE DRAWER 10/15/2020 M70.61 Trochanteric bursitis, right hip Latonya Luci Power, WIRE DRAWER 10/15/2020 M70.62 Trochanteric bursitis, left hip Latonya Luci Power, WIRE DRAWER 10/12/2020 M16.0 Bilateral primary osteoarthritis of hip Latonya Luci Power, WIRE DRAWER 10/12/2020 M70.61 Trochanteric bursitis, right hip Latonya Lcui Power, WIRE DRAWER 10/12/2020 M70.62 Trochanteric bursitis, left hip Latonya Power, WIRE DRAWER 10/08/2020 M16.0 Bilateral primary osteoarthritis of hip Latonya Luci Power, WIRE DRAWER 10/08/2020 M70.61 Trochanteric bursitis, right hip Latonya Power, WIRE DRAWER 10/08/2020 M70.62 Trochanteric bursitis, left hip Latonya Power, WIRE DRAWER 10/05/2020 M16.0 Bilateral primary osteoarthritis of hip Fam Deven. Cook P.T. 10/05/2020 M70.61 Trochanteric bursitis, right hip Fam Deven. Cook P.T. 10/05/2020 M70.62 Trochanteric bursitis, left hip Fam Deven. Cook P.T. 09/29/2020 M16.0 Bilateral primary osteoarthritis of hip Latonya Luci Power, WIRE DRAWER 09/29/2020 M16.0 Bilateral primary osteoarthritis of hip Herrera Rosanna Rudy, PA 09/29/2020 M70.61 Trochanteric bursitis, right hip Herrera Marte Rudy, PA 09/29/2020 M70.61 Trochanteric bursitis, right hip Latonya Power, WIRE DRAWER 09/29/2020 M70.62 Trochanteric bursitis, left hip Herrera Marte Rudy, PA 09/29/2020 M25.562 Pain in left knee Herrera Grant , PA 09/29/2020 M70.62 Trochanteric bursitis, left hip Latonya Power, WIRE DRAWER 09/27/2020 M16.0 Bilateral primary osteoarthritis of hip Fam Deven. Cook P.T. 09/27/2020 M70.61 Trochanteric bursitis, right hip Fam J. Cook P.T. 09/27/2020 M70.62 Trochanteric bursitis, left hip Fam J. Cook P.T. 09/24/2020 M16.0 Bilateral primary osteoarthritis of hip Fam J. Cook P.T. 09/24/2020 M70.61 Trochanteric bursitis, right hip Fam J. Cook P.T. 09/24/2020 M70.62 Trochanteric bursitis, left hip Fam Mccormack Han P.T. 09/22/2020 M16.0 Bilateral primary osteoarthritis of hip Fam Short P.T. 09/22/2020 M70.61 Trochanteric bursitis, right hip Fam Short P.T. 09/22/2020 M70.62 Trochanteric bursitis, left hip Fam Short P.T. 09/16/2020 M16.0 Bilateral primary osteoarthritis of hip Latonya Luci Power, WIRE DRAWER 09/16/2020 M70.61 Trochanteric bursitis, right hip Latonya Luci Power, WIRE DRAWER 09/16/2020 M70.62 Trochanteric bursitis, left hip Latonya Luci Power, WIRE DRAWER 09/13/2020 M16.0 Bilateral primary osteoarthritis of hip Latonya Luci Power, WIRE DRAWER 09/13/2020 M70.61 Trochanteric bursitis, right hip Latonya Luci Power, WIRE DRAWER 09/13/2020 M70.62 Trochanteric bursitis, left hip Latonya Luci Power, WIRE DRAWER 09/10/2020 M16.0 Bilateral primary osteoarthritis of hip Latonya Luci Power, WIRE DRAWER 09/10/2020 M70.61 Trochanteric bursitis, right hip Latonya Luci Power, WIRE DRAWER 09/10/2020 M70.62 Trochanteric bursitis, left hip Latonya Luci Power, WIRE DRAWER 09/06/2020 M16.0 Bilateral primary osteoarthritis of hip Latonya Luci Power, WIRE DRAWER 09/06/2020 M70.61 Trochanteric bursitis, right hip Latonya Luci Power, WIRE DRAWER 09/06/2020 M70.62 Trochanteric bursitis, left hip Latonya Luci Power, WIRE DRAWER 09/03/2020 M16.0 Bilateral primary osteoarthritis of hip Latonya Luci Power, WIRE DRAWER 09/03/2020 M70.61 Trochanteric bursitis, right hip Latonya Luci Power, WIRE DRAWER 09/03/2020 M70.62 Trochanteric bursitis, left hip Latonya Luci Power, WIRE DRAWER 09/01/2020 M16.0 Bilateral primary osteoarthritis of hip Latonya Luci Power, WIRE DRAWER 09/01/2020 M70.61 Trochanteric bursitis, right hip Latonya Power, WIRE DRAWER 09/01/2020 M70.62 Trochanteric bursitis, left hip Latonya Power, WIRE DRAWER 08/26/2020 M16.0 Bilateral primary osteoarthritis of hip Fam Mccormack Cook P.T. 08/26/2020 M70.61 Trochanteric bursitis, right hip Fam Mccormack Cook P.T. 08/26/2020 M70.62 Trochanteric bursitis, left hip Fam Mccormack Han P.T. 08/17/2020 M16.0 Bilateral primary osteoarthritis of hip Herrera Grant, PA 08/17/2020 M70.61 Trochanteric bursitis, right hip Herrera Grant, PA 08/17/2020 M70.62 Trochanteric bursitis, left hip RADHA Pope Plan of Treatment Future Appointment(s):* 01/07/2021 11:30 am - Vin Summers, PT, DPT at Physical Therapy * 01/03/2021 11:00 am - Latonya Power WIRE DRAWER at Physical Therapy * 12/30/2020 11:00 am - Latonya Power PTA at Physical Therapy * 01/07/2021 10:45 am - Tenzin Martin PA-C at [place] Functional Status Description No Information Available Mental Status Description No Information Available Referrals Refer to Dr Reason for Referral Status Appt Date Tenzin Martin PA-C CT RT KNEE With and Without Contrast per medicare no auth req based on medical necessity, per Karol Chau at [facility] no auth req as this is a supplemental plan, ref [id number],passed to carmita to schedule sw. Created [address] [place] [address] [phone] Tenzin Martin PA-C CT RT KNEE With and Without Contrast per medicare no auth req based on medical necessity, per Karol Chau at [facility] no auth req as this is a supplemental plan, ref [id number],passed to carmita to schedule sw. Created [address] [address] [phone] Fam Short, RPT NO AUTH REQUIRED. FOLLOWS [facility] GUIDELINES. REF #[id number]. HW Created [facility] [place] [phone] Herrera Grant I, Pac [facility] Mark Hips no auth req based on medical necessity patient is going to [facility] passed to PT Dept sw. Created [address] [place] [phone]
--- OUTSIDE RECORDS SUMMARY | 2021-01-22 21:21 | CCD | Continuity of Care Document ---
Author Author Lianne POWER [facility] Organization Unknown Address [address] [address] Phone [phone] Care Team Providers Care Panel Machine Tender Name Role Phone Bill Tapia MD [facility] [email or web address]] [phone] Problems Description No Active Problems Social History [...] H/L Range Note CBC With Differential 12/07/2020 [facility] [address] [place] [address] (315)- - White Blood Count 8.1 10 [...] 36.0-66.0 Lymph % 24.9 % Normal 24.0-44.0 Yates % 6.8 % Normal 2.0-8.0 Eos % 0.5 % Normal 0.0-3.0 Baso % 0.7 % Normal 0.0-1.0 Immature Granulocyte % 0.5 % Normal 0-3.0 Nucleated Red Blood Cell % 0.0 % Normal 0-0 Neutrophils # 5.4 10 Normal 1.5-8.5 Lymph # 2.0 10 Normal 1.5-5.0 Yates # 0.6 10 Normal 0.0-0.8 Eos # 0.0 10 Normal 0.0-0.5 Baso # 0.1 10 Normal 0.0-0.2 Laboratory test finding 12/07/2020 [facility] [address] [place] [phone] - Erythrocyte Sedimentation Rate 24 mm/hr Normal 0-30 C Reactive Protein Quantitativ 0.95 mg/dL High 0.00-0.30 CBC With Differential 11/23/[address] [address] (315)- - White Blood Count 10.5 10 [...] 36.0-66.0 Lymph % 22.5 % Low 24.0-44.0 Yates % 7.2 % Normal 2.0-8.0 Eos % 0.4 % Normal 0.0-3.0 Baso % 0.8 % Normal 0.0-1.0 Immature Granulocyte % 0.4 % Normal 0-3.0 Nucleated Red Blood Cell % 0.0 % Normal 0-0 Neutrophils # 7.2 10 Normal 1.5-8.5 Lymph # 2.4 10 Normal 1.5-5.0 Yates # 0.8 10 Normal 0.0-0.8 Eos # 0.0 10 Normal 0.0-0.5 Baso # 0.1 10 Normal 0.0-0.2 Laboratory test finding 11/23/2020 [facility] [address] [place] [address] [phone])- - Erythrocyte Sedimentation Rate 27 mm/hr Normal 0-30 C Reactive Protein Quantitativ 0.94 mg/dL High 0.00-0.30 Procedures Date Code Description Status 12/27/2020 98351 Therapeutic Procedure, Each 15 M inutes Completed 12/23/2020 07065 Manual Therapy Each 15 Minutes C ompleted 12/23/2020 42545 Therapeutic Procedure, Each 15 M inutes Completed 12/20/2020 46218 Physical Therapy Eval - Low Comp lexity Completed 12/07/2020 74079 Office/Outpatient Established Mo d MDM 30-39 Min Completed 12/02/2020 78643 Phone Evaluation/Management By Sue marquez 5-10 Mins Completed 11/23/2020 41541 Office/Outpatient Established Lo w MDM 20-29 Min Completed 11/11/2020 37214 Office/Outpatient Established Mo d MDM 30-39 Min Completed 11/11/2020 96975 X-Ray Knee Complete W/Obliques & Tunnel And/Or Standing Views Completed 11/04/2020 05528 Office/Outpatient Established Lo w MDM 20-29 Min Completed 10/29/2020 67989 Therapeutic Procedure, Each 15 M inutes Completed 10/27/2020 23037 Therapeutic Procedure, Each 15 M inutes Completed 10/22/2020 44092 Therapeutic Procedure, Each 15 M inutes Completed 10/19/2020 73025 Therapeutic Procedure, Each 15 M inutes Completed 10/15/2020 54631 Therapeutic Procedure, Each 15 M inutes Completed 10/12/2020 17684 Therapeutic Procedure, Each 15 M inutes Completed 10/08/2020 48104 Therapeutic Procedure, Each 15 M inutes Completed 10/05/2020 01986 Manual Therapy Each 15 Minutes C ompleted 10/05/2020 68540 Therapeutic Procedure, Each 15 M inutes Completed 09/29/2020 25063 Inject/Drain Joint/Bursa Major C ompleted 09/29/2020 30643 Manual Therapy Each 15 Minutes C ompleted 09/29/2020 10192 Office/Outpatient Established Lo w MDM 20-29 Min Completed 09/29/2020 45420 Therapeutic Procedure, Each 15 M inutes Completed 09/27/2020 69303 Therapeutic Procedure, Each 15 M inutes Completed 09/24/2020 67140 Therapeutic Procedure, Each 15 M inutes Completed 09/22/2020 90403 Therapeutic Procedure, Each 15 M inutes Completed 09/16/2020 78070 Manual Therapy Each 15 Minutes C ompleted 09/16/2020 60517 Therapeutic Procedure, Each 15 M inutes Completed 09/13/2020 32915 Manual Therapy Each 15 Minutes C ompleted 09/13/2020 88823 Therapeutic Procedure, Each 15 M inutes Completed 09/10/2020 00429 Therapeutic Procedure, Each 15 M inutes Completed 09/10/2020 31104 Manual Therapy Each 15 Minutes C ompleted 09/06/2020 32225 Manual Therapy Each 15 Minutes C ompleted 09/06/2020 52712 Therapeutic Procedure, Each 15 M inutes Completed 09/03/2020 70657 Manual Therapy Each 15 Minutes C ompleted 09/03/2020 64971 Therapeutic Procedure, Each 15 M inutes Completed 09/01/2020 51312 Manual Therapy Each 15 Minutes C ompleted 09/01/2020 87824 Therapeutic Procedure, Each 15 M inutes Completed 08/26/2020 96380 Physical Therapy Eval - Low Comp lexity Completed 08/17/2020 60045 Office/Outpatient Established Lo w MDM 20-29 Min Completed 08/17/2020 42249 X-Ray Hips Bilateral With Pelvis 3-4 Views [...] lower li mb Office Visit 11/11/2020 2:40p Jannie Martin PA-C [...] right knee, subsequ ent encounter Latonya Power, [employer]OTHING AND TEXTILES TEACHER 12/27/2020 M70.62 Trochanteric bursitis, left hip Latonya Luci Power, [employer]OTH[employer] AND TEXTIL[employer] TEACHER 12/23/2020 S80.01xD Contusion of right knee, subsequ ent encounter Vin Summers, PT, DPT 12/23/2020 M70.62 Trochanteric bursitis, left hip Vin Summers, PT, DPT 12/20/2020 S80.01xD Contusion of right knee, subsequ ent encounter Vin Peters Elginkraig, PT, DPT 12/20/2020 M70.62 Trochanteric bursitis, left hip Vin Peters Elginkraig, PT, DPT 12/07/2020 S80.01xD Contusion of right knee, subsequ ent encounter Tenzin Martin PA-C 12/07/2020 L03.115 Cellulitis of right lower limb B mario Martin PA-C 12/07/2020 M70.62 Trochanteric bursitis, left hip Tenzin Martin PA-C 12/07/2020 M70.61 Trochanteric bursitis, right hip Tenzin Martin PA-C 12/02/2020 M70.62 Trochanteric bursitis, left hip Herrera Grant, RADHA 12/02/2020 M70.61 Trochanteric bursitis, right hip Herrera Grant, RADHA 11/26/2020 M70.62 Trochanteric bursitis, left hip Fam Short P.TDiane 11/26/2020 M70.61 Trochanteric bursitis, right hip Fam Short P.T. 11/26/2020 M16.0 Bilateral primary osteoarthritis of hip Famrocio Short P.T. 11/23/2020 S80.01xD Contusion of right [...] primary osteoarthritis of hip Latonya Luci Power, [employer] TEACHER 10/29/2020 M70.61 Trochanteric bursitis, right hip Latonya Luci Power, [employer]OTH[employer] AND TEXTIL[employer] TEACHER 10/29/2020 M70.62 Trochanteric bursitis, left hip Latonya Luci Power, [employer]OTH[employer] AND TEXTILES TEACHER 10/27/2020 M16.0 Bilateral primary osteoarthritis of hip Latonya Luci Power, [employer]OTH[employer] AND TEXTILES TEACHER 10/27/2020 M70.61 Trochanteric bursitis, right hip Latonya Luci Power, [employer]OTH[employer] AND TEXTIL[employer] TEACHER 10/27/2020 M70.62 Trochanteric bursitis, left hip Latonya Luci Power, [employer]OTH[employer] AND TEXTIL[employer] TEACHER 10/22/2020 M16.0 Bilateral primary osteoarthritis of hip Latonya Luci Power, [employer]OTH[employer] AND TEXTIL[employer] TEACHER 10/22/2020 M70.61 Trochanteric bursitis, right hip Latonya Luci Power, [employer]OTH[employer] AND TEXTILES TEACHER 10/22/2020 M70.62 Trochanteric bursitis, left hip Latonya Luci Power, [employer]OTH[employer] AND TEXTILES TEACHER 10/19/2020 M16.0 Bilateral primary osteoarthritis of hip Latonya Luci Power, [employer]OTH[employer] AND TEXTILES TEACHER 10/19/2020 M70.61 Trochanteric bursitis, right hip Latonya Luci Power, [employer]OTH[employer] AND TEXTILES TEACHER 10/19/2020 M70.62 Trochanteric bursitis, left hip Latonya Luci Power, [employer]OTH[employer] AND TEXTIL[employer] TEACHER 10/15/2020 M16.0 Bilateral primary osteoarthritis of hip Latonya Luci Power, [employer]OTH[employer] AND TEXTILES TEACHER 10/15/2020 M70.61 Trochanteric bursitis, right hip Latonya Luci Power, [employer]OTH[employer] AND TEXTILES TEACHER 10/15/2020 M70.62 Trochanteric bursitis, left hip Latonya Luci Power, [employer]OTH[employer] AND TEXTIL[employer] TEACHER 10/12/2020 M16.0 Bilateral primary osteoarthritis of hip Latonya Luci Power, [employer]OTH[employer] AND TEXTIL[employer] TEACHER 10/12/2020 M70.61 Trochanteric bursitis, right hip Latonya Luci Power, [employer]OTH[employer] AND TEXTIL[employer] TEACHER 10/12/2020 M70.62 Trochanteric bursitis, left hip Latonya Power, [employer]OTH[employer] AND TEXTILES TEACHER 10/08/2020 M16.0 Bilateral primary osteoarthritis of hip Latonya Luci Power, [employer]OTH[employer] AND TEXTIL[employer] TEACHER 10/08/2020 M70.61 Trochanteric bursitis, right hip Latonya Power, [employer]OTH[employer] AND TEXTIL[employer] TEACHER 10/08/2020 M70.62 Trochanteric bursitis, left hip Latonya Power, [employer]OTH[employer] AND TEXTILES TEACHER 10/05/2020 M16.0 Bilateral primary osteoarthritis of hip Fam Deven. Cook P.T. 10/05/2020 M70.61 Trochanteric bursitis, right hip Fam Deven. Cook P.T. 10/05/2020 M70.62 Trochanteric bursitis, left hip Fam Deven. Cook P.T. 09/29/2020 M16.0 Bilateral primary osteoarthritis of hip Latonya Luci Power, [employer]OTH[employer] AND TEXTIL[employer] TEACHER 09/29/2020 M16.0 Bilateral primary osteoarthritis of hip Herrera Rosanna Rudy, PA 09/29/2020 M70.61 Trochanteric bursitis, right hip Herrera CappsDiane Grant, PA 09/29/2020 M70.61 Trochanteric bursitis, right hip Latonya Power, [employer] AND TEXTIL[employer] TEACHER 09/29/2020 M70.62 Trochanteric bursitis, left hip Herrera Marte Rudy, PA 09/29/2020 M25.562 Pain in left knee Herrera Grant , PA 09/29/2020 M70.62 Trochanteric bursitis, left hip Latonya Power, [employer]OTH[employer] AND TEXTILES TEACHER 09/27/2020 M16.0 Bilateral primary osteoarthritis of hip Fam Deven. Cook P.T. 09/27/2020 M70.61 Trochanteric bursitis, right hip Fam Deven. Cook P.T. 09/27/2020 M70.62 Trochanteric bursitis, left hip Fam Deven. Cook P.T. 09/24/2020 M16.0 Bilateral primary osteoarthritis of hip Fam J. Cook P.T. 09/24/2020 M70.61 Trochanteric bursitis, right hip Fam Deven. Cook P.T. 09/24/2020 M70.62 Trochanteric bursitis, left hip Fam Mccormack Cook P.T. 09/22/2020 M16.0 Bilateral primary osteoarthritis of hip Fam Short P.T. 09/22/2020 M70.61 Trochanteric bursitis, right hip Fam Short P.T. 09/22/2020 M70.62 Trochanteric bursitis, left hip Fam Short P.T. 09/16/2020 M16.0 Bilateral primary osteoarthritis of hip Latonya Luci Power, [employer]OTH[employer] AND TEXTILES TEACHER 09/16/2020 M70.61 Trochanteric bursitis, right hip Latonya Luci Power, [employer]OTH[employer] AND TEXTILES TEACHER 09/16/2020 M70.62 Trochanteric bursitis, left hip Latonya Luci Power, [employer]OTH[employer] AND TEXTILES TEACHER 09/13/2020 M16.0 Bilateral primary osteoarthritis of hip Latonya Luci Power, [employer]OTH[employer] AND TEXTILES TEACHER 09/13/2020 M70.61 Trochanteric bursitis, right hip Latonya Luci Power, [employer]OTH[employer] AND TEXTILES TEACHER 09/13/2020 M70.62 Trochanteric bursitis, left hip Latonya Luci Power, [employer]OTH[employer] AND TEXTILES TEACHER 09/10/2020 M16.0 Bilateral primary osteoarthritis of hip Latonya Luci Power, [employer]OTH[employer] AND TEXTILES TEACHER 09/10/2020 M70.61 Trochanteric bursitis, right hip Latonya Luci Power, CLOTHING AND TEXTILES TEACHER 09/10/2020 M70.62 Trochanteric bursitis, left hip Latonya Luci Power, [employer]OTHING AND TEXTILES TEACHER 09/06/2020 M16.0 Bilateral primary osteoarthritis of hip Latonya Luci Power, [employer]OTH[employer] AND TEXTILES TEACHER 09/06/2020 M70.61 Trochanteric bursitis, right hip Latonya Luci Power, [employer]OTH[employer] AND TEXTILES TEACHER 09/06/2020 M70.62 Trochanteric bursitis, left hip Latonya Luci Power, CLOTH[employer] AND TEXTILES TEACHER 09/03/2020 M16.0 Bilateral primary osteoarthritis of hip Latonya Luci Power, [employer]OTH[employer] AND TEXTILES TEACHER 09/03/2020 M70.61 Trochanteric bursitis, right hip Latonya Luci Power, CLOTHING AND TEXTILES TEACHER 09/03/2020 M70.62 Trochanteric bursitis, left hip Latonya Luci Power, [employer]OTH[employer] AND TEXTILES TEACHER 09/01/2020 M16.0 Bilateral primary osteoarthritis of hip Latonya Luci Power, [employer]OTH[employer] AND TEXTILES TEACHER 09/01/2020 M70.61 Trochanteric bursitis, right hip Latonya Power, [employer]OTH[employer] AND TEXTILES TEACHER 09/01/2020 M70.62 Trochanteric bursitis, left hip Latonya Power, [employer]OTH[employer] AND TEXTILES TEACHER 08/26/2020 M16.0 Bilateral primary osteoarthritis of hip [...] * 01/03/2021 11:00 am - Latonya Power CLOTHING AND TEXTILES TEACHER at Physical Therapy * 12/30/2020 11:00 am - Latonya Power PTA at Physical Therapy * 01/07/2021 10:45 am - Tenzin Martin PA-C at [place] Functional Status Description No Information Available Mental Status Description No Information Available Referrals Refer to Dr Reason for Referral Status Appt Date Tenzin Martin PA-C CT RT KNEE With and Without Contrast per medicare no auth req based on medical necessity, per Karol Chau at [facility] no auth req as this is a supplemental plan, ref [id number],passed to carmita to schedule sw. Created [address] [place], [place] [id number] [phone] Tenzin Martin PA-C CT RT KNEE With and Without Contrast per medicare no auth req based on medical necessity, per Karol Chau at [facility] no auth req as this is a supplemental plan, ref [id number],passed to carmita to schedule sw. Created [facility] [address] [address] [phone] Fam Short, RPT NO AUTH REQUIRED. FOLLOWS [facility] GUIDELINES. REF #[id number]. HW Created [address] [place], [place] [id number] [phone] Herrera Grant I, Pac Physical Therapy Mark Hips no auth req based on medical necessity patient is going to [facility] passed to PT Dept sw. Created [address] [place] [id number] [phone]
--- OUTSIDE RECORDS SUMMARY | 2021-01-22 21:21 | CCD | Continuity of Care Document ---
Author Author Lianne [facility] Organization Unknown Address [address], [address] [place] [address] Phone [phone] Care Team Providers Care Charging Crane Operator Name Role Phone Bill Tapia MD [facility] [phone] Problems Description No Information Available Social History Type Date Description Comments Sex Unknown ETOH Use Rarely consumes alcohol Tobacco Use Start: Unknown Patient has never smoked Sun Exposure minimum amount of sun exposure Sun Exposure Has never used tanning bed Sun Exposure Has never experienced blistering from sunburns Sun Exposure Does not use sunscreen Allergies and adverse reactions Active Allergies Criticality Reaction | Severity Comments Date sulfa Unable to assess criticality 01/02/2019 Propoxyphene Unable to assess criticality 01/02/2019 Morphine Sulfate Unable to assess criticality 01/02/2019 Medications Active Medications SIG Qnty Indications Ordering Provide r Date Nitrostat 0.4mg Tablets Sub [facility] 01/02/2019 Trazodone HCL 50mg Tablets [facility] 01/02/2019 Topamax 100mg Tablets [facility] 01/02/2019 Restasis 0.05% Emulsion [facility] 01/02/2019 Protonix 40mg Packet [facility] 01/02/2019 Nortriptyline HCL 25mg Capsules [facility] 01/02/2019 Montelukast Sodium 10mg Tablets 1 by mouth every day 90tabs [facility] 01/02/2019 Gabapentin 600mg Tablets [facility] 01/02/2019 Lipitor 20mg Tablets take 1 by mouth at bedtime with water 30tabs [facility] 019 Albuterol Sulfate (2 .5mg/3ML) 0.083% Nebulizer [facility] 2018 Baclofen 10mg Tablets [facility] 01/02/2019 Lidoderm 5% Patches [facility] 01/02/2019 Ventolin HFA 108(90Base) mcg/Act A erosol 1-2 puffs every 4 hours as needed [facility] 01/02/2019 Lisinopril 2.5mg Tablets [facility] 01/02/2019 Advair HFA 45-21mcg/Act Aerosol [facility] 01/02/2019 Zyrtec Allergy 10mg Capsules 1 by mouth every day 90caps [facility] 01/02/2019 Clopidogrel Bisulfate Unknown Sucralfate Unknown Spiriva Respimat Unknown 00 Sertraline HCL Unknown Pantoprazole Sodium Unknown Oxycodone-Acetaminophen Unknown 0 Aspirin Unknown Miralax Unknown Melatonin Unknown Magnesium Oxide Unknown 0 Plavix Unknown Immunizations Description No Information Available Vital Signs Date Vital Result Comment 12/16/2020 2:53pm BP Systolic 155 mmHg BP Diastolic 88 mmHg Heart Rate 85 /min Weight 200.00 lb 01/13/2020 9:50am BP Systolic 140 mmHg BP Diastolic 80 mmHg Weight 201.00 lb Body Temperature 99.0 F Results Test Acquired Date Facility Test Result H/L Range Note [facility] Pathology 12/16/2020 [facility] Icd9 Code ICD9 Code: D22.5 1, 2 PDFReport SEE IMAGE 1 No further treatment 2 ICD9 Code: D22.5 Protocol: mario Clinical Text: ATYPICAL NEVUS Final Diagnosis: COMPOUND MELANOCYTIC NEVUS. Gross Text: Two specimens were received in the same vial. The first specimen grossly was oval in shape and measured 5 x 3 mm. on the surface and 1 mm. deep. The second specimen grossly was oval in shape and measured 5 x 3 mm. on the surface and 1 mm. deep. All of the tissue was submitted for processing. Microscopic Description: Sections show nests of small nevomelanocytes along the dermoepidermal junction and in the dermis. CPT: 09044*1 Procedures Date Code Description Status 12/16/2020 37598 Office/Outpatient Established Mo d MDM 30-39 Min Completed 12/16/2020 90221 Shave Biopsy Of Skin, Single Les ion Completed Medical Devices Description No Information Available Encounters Type Date Location Provider Dx Diagnosis Office Visit 12/16/2020 2:30p Main Office CASH [facility]ulk[facility] D 48.5 Neoplasm of uncertain behavior of skin D22.5 Melanocytic nevi of trunk L82.1 Other seborrheic keratosis I83.93 Asymptomatic varicose veins of bilateral lower extremities D22.72 Melanocytic nevi of left low er limb, including hip D22.71 Melanocytic nevi of right lo wer limb, including hip Z12.83 Encounter for screening for malignant neoplasm of skin Assessments Date Code Description Provider 12/16/2020 D48.5 Neoplasm of uncertain behavior o f skin PAIGE FaulknerC 12/16/2020 D22.5 Melanocytic nevi of trunk INA Faulkner-C 12/16/2020 L82.1 Other seborrheic keratosis INA Bolton-C 12/16/2020 I83.93 Asymptomatic varicose veins of b ilateral lower extremities INA Faulkner-C 12/16/2020 D22.72 Melanocytic nevi of left lower l imb, including hip INA Faulkner-C 12/16/2020 D22.71 Melanocytic nevi of right lower limb, including hip INA Faulkner-C 12/16/2020 Z12.83 Encounter for screening for sherly gnant neoplasm of skin CASH Faulkner Plan of Treatment Future Appointment(s):* 12/19/2021 11:30 am - CASH Faulkner at Main Office 12/16/2020 - CASH Faulkner* D48.5 Neoplasm of uncertain behavior of skin* Comments:* Shave biopsy today, L buttock - atypical nevusDiscussed risks of biopsy to includes scarring, infection, need for further treatment. Alternative to the biopsy is watchful waitingInformed consent for biopsy signed and photographs takenVerified , name and sites. The area was prepped with alcohol and anesthesized with 1% Lidocaine with Epinephrine. The wound was dressed with band-aid and Vaseline. Patient tolerated well with no complications. Specimen sent to pathology Wound care instructions given Will call with pathology when availableInstructed to call with any problems * D22.5 Melanocytic nevi of trunk* Comments:* Nevi on trunk appear healthy. Monitor for changes. Sun protection and sunscreen use discussed. Literature given on monthly self-skin evaluations Should any moles change in shape or color, itch, bleed or burn, pt. will contact office for evaluation sooner than their interval appointment. * L82.1 Other seborrheic keratosis* Comments:* Reassurance.Discussed seborrheic keratoses are benign warty growths, patients will get more of them as they age. * I83.93 Asymptomatic varicose veins of bilateral lower extremities* Comments:* Discussed that no treatment is necessary for these unless they become symptomatic.Reassurance.Call with problems. * D22.72 Melanocytic nevi of left lower limb, including hip* Comments:* Nevi on L leg appear healthy. Monitor for changes. * D22.71 Melanocytic nevi of right lower limb, including hip* Comments:* Nevi on R leg appear healthy. Monitor for changes. * Z12.83 Encounter for screening for malignant neoplasm of skin* Comments:* See above. * Follow up:* Yearly/PRN - [facility] Functional Status Description No Information Available Mental Status Description No Information Available Referrals Description No Information Available"
--- OUTSIDE RECORDS SUMMARY | 2021-01-22 21:21 | CCD | Continuity of Care Document ---
Author Author Lianne PAINTER [facility] Organization Unknown Address [address] [place] [address] [place] [address] Phone [phone] Care Team Providers Care Director Software Quality Assurance Name Role Phone Bill Tapia MD [facility] [phone] Problems Description No Information Available Social History [...] Available Procedures Date Code Description Status 01/07/2021 64105 Office/Outpatient Established Lo w MDM 20-29 Min Completed 11/08/2020 81716 Office/Outpatient New Low MDM 30 -44 Minutes [...]
--- OUTSIDE RECORDS SUMMARY | 2021-01-22 21:21 | CCD | Continuity of Care Document ---
Author Author Lianne SUMMERS DPT Organization Unknown Address [address] [place] [address] Phone [phone] Care Team Providers Care Dispatcher Maintenance Name Role Phone Bill Tapia MD [facility] [phone] Problems Description No Active Problems Social History [...] every day Unknown Sertraline HCL 50mg Tablets Tmo Kim MD Topiramate 100mg Tablets Ragini Galvin [...] H/L Range Note CBC With Differential 12/07/[address] [address] (315)- - White Blood Count 8.1 10 [...] 36.0-66.0 Lymph % 24.9 % Normal 24.0-44.0 [place] % 6.8 % Normal 2.0-8.0 Eos % 0.5 % Normal 0.0-3.0 Baso % 0.7 % Normal 0.0-1.0 Immature Granulocyte % 0.5 % Normal 0-3.0 Nucleated Red Blood Cell % 0.0 % Normal 0-0 Neutrophils # 5.4 10 Normal 1.5-8.5 Lymph # 2.0 10 Normal 1.5-5.0 [place] # 0.6 10 Normal 0.0-0.8 Eos # 0.0 10 Normal 0.0-0.5 Baso # 0.1 10 Normal 0.0-0.2 Laboratory test finding 12/07/2020 [facility] [address] [place] [address] (315)- - Erythrocyte Sedimentation Rate 24 mm/hr Normal 0-30 C Reactive Protein Quantitativ 0.95 mg/dL High 0.00-0.30 CBC With Differential 11/23/2020 [facility] [address] [place] [address] (315)- - White Blood Count 10.5 10 [...] 10 Normal 0.0-0.2 Laboratory test finding 11/23/2020 [facility] [address] [place] [address] ([phone] - Erythrocyte Sedimentation Rate 27 mm/hr Normal 0-30 C Reactive Protein Quantitativ 0.94 mg/dL High 0.00-0.30 Procedures Date Code Description Status 12/27/2020 87100 Therapeutic Procedure, Each 15 M inutes Completed 12/23/2020 10029 Manual Therapy Each 15 Minutes C ompleted 12/23/2020 05014 Therapeutic Procedure, Each 15 M inutes Completed 12/20/2020 72566 Physical Therapy Eval - Low Comp lexity Completed 12/07/2020 46635 Office/Outpatient Established Mo d MDM 30-39 Min Completed 12/02/2020 70980 Phone Evaluation/Management By Sue marquez 5-10 Mins Completed 11/23/2020 51173 Office/Outpatient Established Lo w MDM 20-29 Min Completed 11/11/2020 29541 Office/Outpatient Established Mo d MDM 30-39 Min Completed 11/11/2020 38424 X-Ray Knee Complete W/Obliques & Tunnel And/Or Standing Views Completed 11/04/2020 47074 Office/Outpatient Established Lo w MDM 20-29 Min Completed 10/29/2020 91054 Therapeutic Procedure, Each 15 M inutes Completed 10/27/2020 90824 Therapeutic Procedure, Each 15 M inutes Completed 10/22/2020 29242 Therapeutic Procedure, Each 15 M inutes Completed 10/19/2020 37261 Therapeutic Procedure, Each 15 M inutes Completed 10/15/2020 90058 Therapeutic Procedure, Each 15 M inutes Completed 10/12/2020 84779 Therapeutic Procedure, Each 15 M inutes Completed 10/08/2020 48234 Therapeutic Procedure, Each 15 M inutes Completed 10/05/2020 39856 Manual Therapy Each 15 Minutes C ompleted 10/05/2020 57086 Therapeutic Procedure, Each 15 M inutes Completed 09/29/2020 22208 Inject/Drain Joint/Bursa Major C ompleted 09/29/2020 92234 Manual Therapy Each 15 Minutes C ompleted 09/29/2020 90760 Office/Outpatient Established Lo w MDM 20-29 Min Completed 09/29/2020 03918 Therapeutic Procedure, Each 15 M inutes Completed 09/27/2020 79449 Therapeutic Procedure, Each 15 M inutes Completed 09/24/2020 69841 Therapeutic Procedure, Each 15 M inutes Completed 09/22/2020 77421 Therapeutic Procedure, Each 15 M inutes Completed 09/16/2020 40291 Manual Therapy Each 15 Minutes C ompleted 09/16/2020 69311 Therapeutic Procedure, Each 15 M inutes Completed 09/13/2020 78757 Manual Therapy Each 15 Minutes C ompleted 09/13/2020 73471 Therapeutic Procedure, Each 15 M inutes Completed 09/10/2020 29004 Therapeutic Procedure, Each 15 M inutes Completed 09/10/2020 65184 Manual Therapy Each 15 Minutes C ompleted 09/06/2020 81333 Manual Therapy Each 15 Minutes C ompleted 09/06/2020 48293 Therapeutic Procedure, Each 15 M inutes Completed 09/03/2020 50365 Manual Therapy Each 15 Minutes C ompleted 09/03/2020 94416 Therapeutic Procedure, Each 15 M inutes Completed 09/01/2020 09572 Manual Therapy Each 15 Minutes C ompleted 09/01/2020 77469 Therapeutic Procedure, Each 15 M inutes Completed 08/26/2020 77569 Physical Therapy Eval - Low Comp lexity Completed 08/17/2020 07677 Office/Outpatient Established Lo w MDM 20-29 Min Completed 08/17/2020 45699 X-Ray Hips Bilateral With Pelvis 3-4 Views [...] right knee, subsequ ent encounter Latonya Power, [employer] 12/27/2020 M70.62 Trochanteric bursitis, left hip Latonya Power, [employer] CLE[employer]ER 12/23/2020 S80.01xD Contusion of right knee, subsequ [...] primary osteoarthritis of hip Latonya Luci Power, [employer]ER 10/29/2020 M70.61 Trochanteric bursitis, right hip Latonya Luci Power, [employer] CLE[employer]ER 10/29/2020 M70.62 Trochanteric bursitis, left hip Latonya Luci Power, [employer] CLE[employer]ER 10/27/2020 M16.0 Bilateral primary osteoarthritis of hip Latonya Luci Power, [employer] CLE[employer]ER 10/27/2020 M70.61 Trochanteric bursitis, right hip Latonya Luci Power, [employer] CLE[employer]ER 10/27/2020 M70.62 Trochanteric bursitis, left hip Latonya Luci Power, [employer] CLE[employer]ER 10/22/2020 M16.0 Bilateral primary osteoarthritis of hip Latonya Luci Power, [employer] CLE[employer]ER 10/22/2020 M70.61 Trochanteric bursitis, right hip Latonya Luci Power, [employer]RINE CLE[employer]ER 10/22/2020 M70.62 Trochanteric bursitis, left hip Latonya Luci Power, [employer] CLE[employer]ER 10/19/2020 M16.0 Bilateral primary osteoarthritis of hip Latonya Luci Power, [employer] CLE[employer]ER 10/19/2020 M70.61 Trochanteric bursitis, right hip Latonya Luci Power, [employer]INE CLE[employer]ER 10/19/2020 M70.62 Trochanteric bursitis, left hip Latonya Luci Power, [employer] CLE[employer]ER 10/15/2020 M16.0 Bilateral primary osteoarthritis of hip Latonya Luci Power, [employer] CLE[employer]ER 10/15/2020 M70.61 Trochanteric bursitis, right hip Latonya Luci Power, [employer] CLE[employer]ER 10/15/2020 M70.62 Trochanteric bursitis, left hip Latonya Luci Power, [employer] CLE[employer]ER 10/12/2020 M16.0 Bilateral primary osteoarthritis of hip Latonya Luci Power, [employer] CLE[employer]ER 10/12/2020 M70.61 Trochanteric bursitis, right hip Latonya Luci Power, [employer] CLE[employer]ER 10/12/2020 M70.62 Trochanteric bursitis, left hip Latonya Power, [employer] CLE[employer]ER 10/08/2020 M16.0 Bilateral primary osteoarthritis of hip Latonya Luci Power, [employer] CLE[employer]ER 10/08/2020 M70.61 Trochanteric bursitis, right hip Latonya Power, [employer] CLE[employer]ER 10/08/2020 M70.62 Trochanteric bursitis, left hip Latonya Power, [employer] CLE[employer]ER 10/05/2020 M16.0 Bilateral primary osteoarthritis of hip Fam Deven. Cook P.T. 10/05/2020 M70.61 Trochanteric bursitis, right hip Fam Deven. Cook P.T. 10/05/2020 M70.62 Trochanteric bursitis, left hip Fam Deven. Cook P.T. 09/29/2020 M16.0 Bilateral primary osteoarthritis of hip Latonya Luci Power, [employer] 09/29/2020 M16.0 Bilateral primary osteoarthritis of hip Herrera Rosanna Rudy, PA 09/29/2020 M70.61 Trochanteric bursitis, right hip Herrera Marte Rudy, PA 09/29/2020 M70.61 Trochanteric bursitis, right hip Latonya Power, [employer] 09/29/2020 M70.62 Trochanteric bursitis, left hip Herrera Marte Rudy, PA 09/29/2020 M25.562 Pain in left knee Herrera Grant , PA 09/29/2020 M70.62 Trochanteric bursitis, left hip Latonya Power, [employer]ER 09/27/2020 M16.0 Bilateral primary osteoarthritis of hip [...] primary osteoarthritis of hip Latonya Luci Power, [employer] CLE[employer]ER 09/16/2020 M70.61 Trochanteric bursitis, right hip Latonya Luci Power, [employer] CLE[employer]ER 09/16/2020 M70.62 Trochanteric bursitis, left hip Latonya Luci Power, [employer] CLE[employer]ER 09/13/2020 M16.0 Bilateral primary osteoarthritis of hip Latonya Luci Power, [employer] CLE[employer]ER 09/13/2020 M70.61 Trochanteric bursitis, right hip Latonya Luci Power, [employer] CLE[employer]ER 09/13/2020 M70.62 Trochanteric bursitis, left hip Latonya Luci Power, [employer] CLE[employer]ER 09/10/2020 M16.0 Bilateral primary osteoarthritis of hip Latonya Luci Power, [employer] CLE[employer]ER 09/10/2020 M70.61 Trochanteric bursitis, right hip Latonya Luci Power, [employer] CLE[employer]ER 09/10/2020 M70.62 Trochanteric bursitis, left hip Latonya Luci Power, [employer] CLE[employer]ER 09/06/2020 M16.0 Bilateral primary osteoarthritis of hip Latonya Luci Power, [employer] CLE[employer]ER 09/06/2020 M70.61 Trochanteric bursitis, right hip Latonya Luci Power, [employer] CLE[employer]ER 09/06/2020 M70.62 Trochanteric bursitis, left hip Latonya Luci Power, [employer] CLE[employer]ER 09/03/2020 M16.0 Bilateral primary osteoarthritis of hip Latonya Luci Power, [employer] CLE[employer]ER 09/03/2020 M70.61 Trochanteric bursitis, right hip Latonya Luci Power, [employer]INE CLE[employer]ER 09/03/2020 M70.62 Trochanteric bursitis, left hip Latonya Luci Power, [employer] CLE[employer]ER 09/01/2020 M16.0 Bilateral primary osteoarthritis of hip Latonya Luci Power, [employer] CLE[employer]ER 09/01/2020 M70.61 Trochanteric bursitis, right hip Latonya Power, [employer] CLE[employer]ER 09/01/2020 M70.62 Trochanteric bursitis, left hip Latonya Power, [employer]INE CLE[employer]ER 08/26/2020 M16.0 Bilateral primary osteoarthritis of hip [...] * 01/03/2021 11:00 am - Latonya Power [employer]RINE CLEANER at Physical Therapy * 12/30/2020 11:00 am - Latonya Power PTA at Physical Therapy * 01/07/2021 10:45 am - Tenzin Martin PA-C at [facility] Functional Status Description No Information Available Mental Status Description No Information Available Referrals Refer to Dr Reason for Referral Status Appt Date Tenzin Martin PA-C CT RT KNEE With and Without Contrast per medicare no auth req based on medical necessity, per Karol Chau at [facility] no auth req as this is a supplemental plan, ref [id number],passed to carmita to schedule sw. Created [address] [place] [address] [phone] Tenzin Martin PA-C CT RT KNEE With and Without Contrast per medicare no auth req based on medical necessity, per Karol Chau at [facility] no auth req as this is a supplemental plan, ref [id number],passed to carmita to schedule sw. Created [address] [address] [phone] Fam Short, RPT NO AUTH REQUIRED. FOLLOWS [facility] GUIDELINES. REF #[id number]. HW Created [facility] [place] [id number] [phone] Herrera Grant I, Pac Physical Therapy Mark Hips no auth req based on medical necessity patient is going to [facility] passed to PT Dept sw. Created [address] [place] [address] [phone]
--- OUTSIDE RECORDS SUMMARY | 2021-01-22 21:21 | CCD ---
Author Organization Unknown Address [address] [place] [address] Phone [phone] Care Team Providers Care Backend Java Developer Name Role Phone AIME PARK MD 3 [phone] Allergies Code Code System Name Reaction Severity Status Onset DARVOCET-N 100 Active 04/10 Darvon Active 04/10/2012 7052 RxNorm Morphine Active 04/10/2012 Sulfa (Sulfonamide Antibiotics) Hallucinations Mod erate Active Medications Name Status Start Date Stop [...] tablet Completed 11/20/19 cephalexin 500 mg capsule Completed 2020 ciprofloxacin 250 mg tablet Completed 12/21 ciprofloxacin 500 mg tablet Active Not available clonazepam 0.5 mg tablet Completed 021 clopidogrel 75 mg tablet Active Not laith ilable clotrimazole-betamethasone 1 %-0.05 % topical cream Completed 01/09/2018 diclofenac 1 % topical gel Active Not a vailable doxycycline monohydrate 100 mg capsule Completed 12/31/2020 doxycycline monohydrate 100 mg tablet Completed 04/22/2018 [...] mg tablet Completed montelukast 10 mg tablet Active Not laith ilable nitrofurantoin monohydrate/macrocrystals 100 mg capsule Complete d [...] avai lable trazodone 50 mg tablet Completed Problems Name Status Onset Date Source Migraine [...] Results Lab Results None recorded. Past Encounters 12/31/2020 Lumbar Post-laminectomy Syndrome; Degeneration of Lumbar Intervertebral Disc; Degeneration of Lumbosacral Intervertebral Disc; Displacement of Lumbar Intervertebral Disc without Myelopathy; Intervertebral Disc Disorder; Spondylosis without Myelopathy; Lumbosacral Spondylosis without Myelopathy; Lumbar Radiculopathy; Fibromyalgia; Trochanteric Tendinitis; Cervico-occipital Neuralgia; Degeneration of Cervical Intervertebral Disc; Myofascial Pain Razia Hussein RAILROAD SHOP INSPECTOR: [id number] [facility] [address], [facility] [place] [address], Ph. 11/19/2020 Lumbar Post-laminectomy Syndrome; Degeneration of Lumbar Intervertebral Disc; Degeneration of Lumbosacral Intervertebral Disc; Displacement of Lumbar Intervertebral Disc without Myelopathy; Intervertebral Disc Disorder; Spondylosis without Myelopathy; Lumbosacral Spondylosis without Myelopathy; Lumbar Radiculopathy; Fibromyalgia; Trochanteric Tendinitis; Cervico-occipital Neuralgia; Degeneration of Cervical Intervertebral Disc; Myofascial Pain Razia Hussein RAILROAD SHOP INSPECTOR: [id number] [facility] [address], [facility] [place] [address], Ph. 03/09/2020 Lumbar Post-laminectomy Syndrome; Degeneration of Lumbar Intervertebral Disc; Degeneration of Lumbosacral Intervertebral Disc; Displacement of Lumbar Intervertebral Disc without Myelopathy; Intervertebral Disc Disorder; Spondylosis without Myelopathy; Lumbosacral Spondylosis without Myelopathy; Lumbar Radiculopathy; Fibromyalgia; Trochanteric Tendinitis; Cervico-occipital Neuralgia; Degeneration of Cervical Intervertebral Disc; Myofascial Pain Razia Hussein [employer]ILRO[employer] SHOP INSPECTOR: [id number] [address], [place] [address], Ph. 01/26/2020 Lumbar Post-laminectomy Syndrome; Degeneration of Lumbar Intervertebral Disc; Degeneration of Lumbosacral Intervertebral Disc; Displacement of Lumbar Intervertebral Disc without Myelopathy; Intervertebral Disc Disorder; Spondylosis without Myelopathy; Lumbosacral Spondylosis without Myelopathy; Lumbar Radiculopathy; Fibromyalgia; Trochanteric Tendinitis; Cervico-occipital Neuralgia; Degeneration of Cervical Intervertebral Disc Razia Hussein RAILRO[employer] SHOP INSPECTOR: [id number] [address], [place] [address], Ph. 12/15/2019 Lumbar Post-laminectomy Syndrome; Degeneration of Lumbar Intervertebral Disc; Degeneration of Lumbosacral Intervertebral Disc; Displacement of Lumbar Intervertebral Disc without Myelopathy; Intervertebral Disc Disorder; Spondylosis without Myelopathy; Lumbosacral Spondylosis without Myelopathy; Lumbar Radiculopathy; Fibromyalgia; Trochanteric Tendinitis; Cervico-occipital Neuralgia; Degeneration of Cervical Intervertebral Disc Razia Hussein RAILRO[employer] SHOP INSPECTOR: [address] [address], Ph. 11/07/2019 Lumbar Post-laminectomy Syndrome; Degeneration of Lumbar Intervertebral Disc; Degeneration of Lumbosacral Intervertebral Disc; Displacement of Lumbar Intervertebral Disc without Myelopathy; Intervertebral Disc Disorder; Spondylosis without Myelopathy; Lumbosacral Spondylosis without Myelopathy; Lumbar Radiculopathy; Fibromyalgia; Trochanteric Tendinitis; Cervico-occipital Neuralgia; Degeneration of Cervical Intervertebral Disc Razia Hussein [employer]RO[employer] SHOP INSPECTOR: [id number] [facility] [address], [place] [address], Ph. 04/21/2019 Lumbar Post-laminectomy Syndrome; Degeneration of Lumbar Intervertebral Disc; Degeneration of Lumbosacral Intervertebral Disc; Displacement of Lumbar Intervertebral Disc without Myelopathy; Intervertebral Disc Disorder; Spondylosis without Myelopathy; Lumbosacral Spondylosis without Myelopathy; Lumbar Radiculopathy; Fibromyalgia; Trochanteric Tendinitis; Cervico-occipital Neuralgia; Degeneration of Cervical Intervertebral Disc Razia Hussein, RAILRO[employer] SHOP INSPECTOR: [id number] [facility] [address], [place] [address], Ph. 03/03/2019 Lumbar Post-laminectomy Syndrome; Degeneration of Lumbar Intervertebral Disc; Degeneration of Lumbosacral Intervertebral Disc; Displacement of Lumbar Intervertebral Disc without Myelopathy; Intervertebral Disc Disorder; Spondylosis without Myelopathy; Lumbosacral Spondylosis without Myelopathy; Lumbar Radiculopathy; Fibromyalgia; Trochanteric Tendinitis; Cervico-occipital Neuralgia; Degeneration of Cervical Intervertebral Disc Razia Hussein, [employer]RO[employer] SHOP INSPECTOR: [id number] [facility] [address], [place] [address], Ph. 01/07/2019 Lumbar Post-laminectomy Syndrome; Degeneration of Lumbar Intervertebral Disc; Degeneration of Lumbosacral Intervertebral Disc; Displacement of Lumbar Intervertebral Disc without Myelopathy; Intervertebral Disc Disorder; Spondylosis without Myelopathy; Lumbosacral Spondylosis without Myelopathy; Lumbar Radiculopathy; Fibromyalgia; Trochanteric Tendinitis; Cervico-occipital Neuralgia; Degeneration of Cervical Intervertebral Disc Razia Hussein, RAILRO[employer] SHOP INSPECTOR: [id number] [address], [place] [address], Ph. 11/26/2018 Lumbar Post-laminectomy Syndrome; Degeneration of Lumbar Intervertebral Disc; Degeneration of Lumbosacral Intervertebral Disc; Displacement of Lumbar Intervertebral Disc without Myelopathy; Intervertebral Disc Disorder; Spondylosis without Myelopathy; Lumbosacral Spondylosis without Myelopathy; Lumbar Radiculopathy; Fibromyalgia; Trochanteric Tendinitis; Cervico-occipital Neuralgia; Degeneration of Cervical Intervertebral Disc Razia Hussein, RAILRO[employer] SHOP INSPECTOR: [id number] [facility] [address], [place] [address], Ph. 09/25/2018 Cervical Spondylosis without Myelopathy; Degeneration of Cervical Intervertebral Disc; Lumbar Post-laminectomy Syndrome; Degeneration of Lumbar Intervertebral Disc; Degeneration of Lumbosacral Intervertebral Disc; Displacement of Lumbar Intervertebral Disc without Myelopathy; Intervertebral Disc Disorder; Spondylosis without Myelopathy; Lumbosacral Spondylosis without Myelopathy; Lumbar Radiculopathy; Fibromyalgia; Trochanteric Tendinitis; Cervico-occipital Neuralgia Hakan Crawford MD: [id number] [address], [place] [address], Ph. 09/11/2018 Lumbar Post-laminectomy Syndrome; Degeneration of Lumbar Intervertebral Disc; Degeneration of Lumbosacral Intervertebral Disc; Displacement of Lumbar Intervertebral Disc without Myelopathy; Intervertebral Disc Disorder; Spondylosis without Myelopathy; Lumbosacral Spondylosis without Myelopathy; Lumbar Radiculopathy; Fibromyalgia; Trochanteric Tendinitis; Cervico-occipital Neuralgia; Degeneration of Cervical Intervertebral Disc Razia Hussein NP: [id number] [address], Ph. 08/29/2018 Lumbar Post-laminectomy Syndrome; Degeneration of Lumbar Intervertebral Disc; Degeneration of Lumbosacral Intervertebral Disc; Displacement of Lumbar Intervertebral Disc without Myelopathy; Intervertebral Disc Disorder; Spondylosis without Myelopathy; Lumbosacral Spondylosis without Myelopathy; Lumbar Radiculopathy; Fibromyalgia; Trochanteric Tendinitis; Cervico-occipital Neuralgia; Degeneration of Cervical Intervertebral Disc Hakan Crawford MD: [address] [address], Ph. 08/26/2018 Lumbar Post-laminectomy Syndrome; Lumbar Radiculopathy; Degeneration of Lumbar Intervertebral Disc; Degeneration of Lumbosacral Intervertebral Disc; Displacement of Lumbar Intervertebral Disc without Myelopathy; Intervertebral Disc Disorder; Spondylosis without Myelopathy; Lumbosacral Spondylosis without Myelopathy; Fibromyalgia; Trochanteric Tendinitis; Cervico-occipital Neuralgia; Degeneration of Cervical Intervertebral Disc Hakan Crawford MD: [id number] [address], [place] [address], Ph. 08/19/2018 Lumbar Post-laminectomy Syndrome; Degeneration of Lumbar Intervertebral Disc; Degeneration of Lumbosacral Intervertebral Disc; Displacement of Lumbar Intervertebral Disc without Myelopathy; Intervertebral Disc Disorder; Spondylosis without Myelopathy; Lumbosacral Spondylosis without Myelopathy; Lumbar Radiculopathy; Fibromyalgia; Trochanteric Tendinitis; Cervico-occipital Neuralgia; Degeneration of Cervical Intervertebral Disc Hakan Crawford MD: [id number] [address] [address], [place] [address], Ph. 08/12/2018 Prolapsed Lumbar Intervertebral Disc; Fibromyalgia; Lumbosacral Radiculopathy; Degeneration of Lumbar Intervertebral Disc; Post-laminectomy Syndrome; Trochanteric Tendinitis; Sciatic Neuropathy; Spondylosis without Myelopathy; Degeneration of Cervical Intervertebral Disc; Cervico-occipital Neuralgia Razia Hussein, [employer]ILRO[employer] SHOP INSPECTOR: [address] [address], Ph. 07/01/2018 Prolapsed Lumbar Intervertebral Disc; Fibromyalgia; Lumbosacral Radiculopathy; Degeneration of Lumbar Intervertebral Disc; Post-laminectomy Syndrome; Trochanteric Tendinitis; Sciatic Neuropathy; Spondylosis without Myelopathy; Degeneration of Cervical Intervertebral Disc; Cervico-occipital Neuralgia Razia Hussein [employer]ILRO[employer] SHOP INSPECTOR: [address] [place] [address], Ph. 05/20/2018 Prolapsed Lumbar Intervertebral Disc; Fibromyalgia; Lumbosacral Radiculopathy; Degeneration of Lumbar Intervertebral Disc; Post-laminectomy Syndrome; Trochanteric Tendinitis; Sciatic Neuropathy; Spondylosis without Myelopathy; Degeneration of Cervical Intervertebral Disc; Cervico-occipital Neuralgia Razia Hussein [employer]ILRO[employer] SHOP INSPECTOR: [address] [address], Ph. 04/22/2018 Prolapsed Lumbar Intervertebral Disc; Fibromyalgia; Lumbosacral Radiculopathy; Degeneration of Lumbar Intervertebral Disc; Post-laminectomy Syndrome; Trochanteric Tendinitis; Sciatic Neuropathy; Spondylosis without Myelopathy; Degeneration of Cervical Intervertebral Disc; Cervico-occipital Neuralgia Razia Hussein [employer]RO[employer] SHOP INSPECTOR: [id number] [address], [place] [address], Ph. 02/05/2018 Prolapsed Lumbar Intervertebral Disc; Fibromyalgia; Lumbosacral Radiculopathy; Degeneration of Lumbar Intervertebral Disc; Post-laminectomy Syndrome; Trochanteric Tendinitis; Sciatic Neuropathy; Spondylosis without Myelopathy; Degeneration of Cervical Intervertebral Disc; Cervico-occipital Neuralgia Hakan Crawford MD: [id number] [address], [place] [address], Ph. 01/09/2018 Prolapsed Lumbar Intervertebral Disc; Fibromyalgia; Lumbosacral Radiculopathy; Degeneration of Lumbar Intervertebral Disc; Post-laminectomy Syndrome; Trochanteric Tendinitis; Sciatic Neuropathy; Spondylosis without Myelopathy; Degeneration of Cervical Intervertebral Disc; Cervico-occipital Neuralgia Razia Hussein NP: [id number] [facility] [address], [facility] [place] [address], Ph. Social History Tobacco Smoking Status Never [...]
--- OUTSIDE RECORDS SUMMARY | 2021-01-22 21:21 | CCD ---
Author Organization Unknown Address [address] [place] [address] Phone [phone] Care Team Providers Care Life Agent Name Role Phone AIME PARK MD 3 [phone] Allergies Code Code System Name Reaction Severity [...] Cervical Intervertebral Disc; Myofascial Pain Razia Hussein BREAD WRAPPING MACHINE FEEDER: [id number] [facility] [address], [facility] [place] [address], Ph. 11/19/2020 Lumbar Post-laminectomy Syndrome; Degeneration of Lumbar Intervertebral Disc; Degeneration of Lumbosacral Intervertebral Disc; Displacement of Lumbar Intervertebral Disc without Myelopathy; Intervertebral Disc Disorder; Spondylosis without Myelopathy; Lumbosacral Spondylosis without Myelopathy; Lumbar Radiculopathy; Fibromyalgia; Trochanteric Tendinitis; Cervico-occipital Neuralgia; Degeneration of Cervical Intervertebral Disc; Myofascial Pain Razia Hussein BREAD WRAPPING MACHINE FEEDER: [address] [facility] [address], [facility] [place] [address], Ph. 03/09/2020 Lumbar Post-laminectomy Syndrome; Degeneration of Lumbar Intervertebral Disc; Degeneration of Lumbosacral Intervertebral Disc; Displacement of Lumbar Intervertebral Disc without Myelopathy; Intervertebral Disc Disorder; Spondylosis without Myelopathy; Lumbosacral Spondylosis without Myelopathy; Lumbar Radiculopathy; Fibromyalgia; Trochanteric Tendinitis; Cervico-occipital Neuralgia; Degeneration of Cervical Intervertebral Disc; Myofascial Pain Razia Hussein BREAD WRAPPING MACHINE FEEDER: [address] [address], [place] [address], Ph. 01/26/2020 Lumbar Post-laminectomy Syndrome; Degeneration of Lumbar Intervertebral Disc; Degeneration of Lumbosacral Intervertebral Disc; Displacement of Lumbar Intervertebral Disc without Myelopathy; Intervertebral Disc Disorder; Spondylosis without Myelopathy; Lumbosacral Spondylosis without Myelopathy; Lumbar Radiculopathy; Fibromyalgia; Trochanteric Tendinitis; Cervico-occipital Neuralgia; Degeneration of Cervical Intervertebral Disc Razia Hussein BREAD WRAPPING MACHINE FEEDER: [address] [address], [place] [address], Ph. 12/15/2019 Lumbar Post-laminectomy Syndrome; Degeneration of Lumbar Intervertebral Disc; Degeneration of Lumbosacral Intervertebral Disc; Displacement of Lumbar Intervertebral Disc without Myelopathy; Intervertebral Disc Disorder; Spondylosis without Myelopathy; Lumbosacral Spondylosis without Myelopathy; Lumbar Radiculopathy; Fibromyalgia; Trochanteric Tendinitis; Cervico-occipital Neuralgia; Degeneration of Cervical Intervertebral Disc Razia Hussein BREAD WRAPPING MACHINE FEEDER: [address] [address], Ph. 11/07/2019 Lumbar Post-laminectomy Syndrome; Degeneration of Lumbar Intervertebral Disc; Degeneration of Lumbosacral Intervertebral Disc; Displacement of Lumbar Intervertebral Disc without Myelopathy; Intervertebral Disc Disorder; Spondylosis without Myelopathy; Lumbosacral Spondylosis without Myelopathy; Lumbar Radiculopathy; Fibromyalgia; Trochanteric Tendinitis; Cervico-occipital Neuralgia; Degeneration of Cervical Intervertebral Disc Razia Hussein BREAD WRAPPING MACHINE FEEDER: [address] [facility] [address], [place] [address], Ph. 04/21/2019 Lumbar Post-laminectomy Syndrome; Degeneration of Lumbar Intervertebral Disc; Degeneration of Lumbosacral Intervertebral Disc; Displacement of Lumbar Intervertebral Disc without Myelopathy; Intervertebral Disc Disorder; Spondylosis without Myelopathy; Lumbosacral Spondylosis without Myelopathy; Lumbar Radiculopathy; Fibromyalgia; Trochanteric Tendinitis; Cervico-occipital Neuralgia; Degeneration of Cervical Intervertebral Disc Razia Hussein, BREAD WRAPPING MACHINE FEEDER: [address] [facility] [address], [place] [address], Ph. 03/03/2019 Lumbar Post-laminectomy Syndrome; Degeneration of Lumbar Intervertebral Disc; Degeneration of Lumbosacral Intervertebral Disc; Displacement of Lumbar Intervertebral Disc without Myelopathy; Intervertebral Disc Disorder; Spondylosis without Myelopathy; Lumbosacral Spondylosis without Myelopathy; Lumbar Radiculopathy; Fibromyalgia; Trochanteric Tendinitis; Cervico-occipital Neuralgia; Degeneration of Cervical Intervertebral Disc Razia Hussein, BREAD WRAPPING MACHINE FEEDER: [address] [facility] [address], [place] [address], Ph. 01/07/2019 Lumbar Post-laminectomy Syndrome; Degeneration of Lumbar Intervertebral Disc; Degeneration of Lumbosacral Intervertebral Disc; Displacement of Lumbar Intervertebral Disc without Myelopathy; Intervertebral Disc Disorder; Spondylosis without Myelopathy; Lumbosacral Spondylosis without Myelopathy; Lumbar Radiculopathy; Fibromyalgia; Trochanteric Tendinitis; Cervico-occipital Neuralgia; Degeneration of Cervical Intervertebral Disc Razia Hussein, BREAD WRAPPING MACHINE FEEDER: [address] [address], [place] [address], Ph. 11/26/2018 Lumbar Post-laminectomy Syndrome; Degeneration of Lumbar Intervertebral Disc; Degeneration of Lumbosacral Intervertebral Disc; Displacement of Lumbar Intervertebral Disc without Myelopathy; Intervertebral Disc Disorder; Spondylosis without Myelopathy; Lumbosacral Spondylosis without Myelopathy; Lumbar Radiculopathy; Fibromyalgia; Trochanteric Tendinitis; Cervico-occipital Neuralgia; Degeneration of Cervical Intervertebral Disc Razia Hussein, BREAD WRAPPING MACHINE FEEDER: [address] [facility] [address], [place] [address], Ph. 09/25/2018 Cervical Spondylosis without Myelopathy; Degeneration of Cervical Intervertebral Disc; Lumbar Post-laminectomy Syndrome; Degeneration of Lumbar Intervertebral Disc; Degeneration of Lumbosacral Intervertebral Disc; Displacement of Lumbar Intervertebral Disc without Myelopathy; Intervertebral Disc Disorder; Spondylosis without Myelopathy; Lumbosacral Spondylosis without Myelopathy; Lumbar Radiculopathy; Fibromyalgia; Trochanteric Tendinitis; Cervico-occipital Neuralgia Hakan Crawford MD: [address] [address], [place] [address], Ph. 09/11/2018 Lumbar Post-laminectomy Syndrome; Degeneration of Lumbar Intervertebral Disc; Degeneration of Lumbosacral Intervertebral Disc; Displacement of Lumbar Intervertebral Disc without Myelopathy; Intervertebral Disc Disorder; Spondylosis without Myelopathy; Lumbosacral Spondylosis without Myelopathy; Lumbar Radiculopathy; Fibromyalgia; Trochanteric Tendinitis; Cervico-occipital Neuralgia; Degeneration of Cervical Intervertebral Disc Razia Hussein NP: [id number] [address], Ph. 08/29/2018 Lumbar Post-laminectomy Syndrome; Degeneration of Lumbar Intervertebral Disc; Degeneration of Lumbosacral Intervertebral Disc; Displacement of Lumbar Intervertebral Disc without Myelopathy; Intervertebral Disc Disorder; Spondylosis without Myelopathy; Lumbosacral Spondylosis without Myelopathy; Lumbar Radiculopathy; Fibromyalgia; Trochanteric Tendinitis; Cervico-occipital Neuralgia; Degeneration of Cervical Intervertebral Disc Hakan Crawford MD: [address] [address], Ph. 08/26/2018 Lumbar Post-laminectomy Syndrome; Lumbar Radiculopathy; Degeneration of Lumbar Intervertebral Disc; Degeneration of Lumbosacral Intervertebral Disc; Displacement of Lumbar Intervertebral Disc without Myelopathy; Intervertebral Disc Disorder; Spondylosis without Myelopathy; Lumbosacral Spondylosis without Myelopathy; Fibromyalgia; Trochanteric Tendinitis; Cervico-occipital Neuralgia; Degeneration of Cervical Intervertebral Disc Hakan Crawford MD: [address] [address], [place] [address], Ph. 08/19/2018 Lumbar Post-laminectomy Syndrome; Degeneration of Lumbar Intervertebral Disc; Degeneration of Lumbosacral Intervertebral Disc; Displacement of Lumbar Intervertebral Disc without Myelopathy; Intervertebral Disc Disorder; Spondylosis without Myelopathy; Lumbosacral Spondylosis without Myelopathy; Lumbar Radiculopathy; Fibromyalgia; Trochanteric Tendinitis; Cervico-occipital Neuralgia; Degeneration of Cervical Intervertebral Disc Hakan Crawford MD: [address] [address], [place] [address], Ph. 08/12/2018 Prolapsed Lumbar Intervertebral Disc; Fibromyalgia; Lumbosacral Radiculopathy; Degeneration of Lumbar Intervertebral Disc; Post-laminectomy Syndrome; Trochanteric Tendinitis; Sciatic Neuropathy; Spondylosis without Myelopathy; Degeneration of Cervical Intervertebral Disc; Cervico-occipital Neuralgia Razia Hussein, BREAD WRAPPING MACHINE FEEDER: [address] [address], Ph. 07/01/2018 Prolapsed Lumbar Intervertebral Disc; Fibromyalgia; Lumbosacral Radiculopathy; Degeneration of Lumbar Intervertebral Disc; Post-laminectomy Syndrome; Trochanteric Tendinitis; Sciatic Neuropathy; Spondylosis without Myelopathy; Degeneration of Cervical Intervertebral Disc; Cervico-occipital Neuralgia Razia Hussein BREAD WRAPPING MACHINE FEEDER: [address] [place] [address], Ph. 05/20/2018 Prolapsed Lumbar Intervertebral Disc; Fibromyalgia; Lumbosacral Radiculopathy; Degeneration of Lumbar Intervertebral Disc; Post-laminectomy Syndrome; Trochanteric Tendinitis; Sciatic Neuropathy; Spondylosis without Myelopathy; Degeneration of Cervical Intervertebral Disc; Cervico-occipital Neuralgia Razia Hussein BREAD WRAPPING MACHINE FEEDER: [address] [address], Ph. 04/22/2018 Prolapsed Lumbar Intervertebral Disc; Fibromyalgia; Lumbosacral Radiculopathy; Degeneration of Lumbar Intervertebral Disc; Post-laminectomy Syndrome; Trochanteric Tendinitis; Sciatic Neuropathy; Spondylosis without Myelopathy; Degeneration of Cervical Intervertebral Disc; Cervico-occipital Neuralgia Razia Hussein BREAD WRAPPING MACHINE FEEDER: [address] [address], [place] [address], Ph. 02/05/2018 Prolapsed Lumbar Intervertebral Disc; Fibromyalgia; Lumbosacral Radiculopathy; Degeneration of Lumbar Intervertebral Disc; Post-laminectomy Syndrome; Trochanteric Tendinitis; Sciatic Neuropathy; Spondylosis without Myelopathy; Degeneration of Cervical Intervertebral Disc; Cervico-occipital Neuralgia Hakan Crawford MD: [address] [address], [place] [address], Ph. 01/09/2018 Prolapsed Lumbar Intervertebral Disc; Fibromyalgia; Lumbosacral Radiculopathy; Degeneration of Lumbar Intervertebral Disc; Post-laminectomy Syndrome; Trochanteric Tendinitis; Sciatic Neuropathy; Spondylosis without Myelopathy; Degeneration of Cervical Intervertebral Disc; Cervico-occipital Neuralgia Razia Hussein NP: [id number] [facility] [address], [facility] [place] [address], Ph. Social History Tobacco Smoking Status Never [...]
--- OUTSIDE RECORDS SUMMARY | 2021-01-22 21:22 | CCD | Continuity of Care Document ---
Author Author Lianne SUMMERS DPT Organization Unknown Address [address] [place] [address] Phone [phone] Care Team Providers Care Felt Finisher Name Role Phone Bill Tapia MD [facility] [phone] Problems Description No Active Problems Social History [...] H/L Range Note CBC With Differential 12/07/[address] [address] (315)- - White Blood Count 8.1 10 [...] 36.0-66.0 Lymph % 24.9 % Normal 24.0-44.0 [place] % 6.8 % Normal 2.0-8.0 Eos % 0.5 % Normal 0.0-3.0 Baso % 0.7 % Normal 0.0-1.0 Immature Granulocyte % 0.5 % Normal 0-3.0 Nucleated Red Blood Cell % 0.0 % Normal 0-0 Neutrophils # 5.4 10 Normal 1.5-8.5 Lymph # 2.0 10 Normal 1.5-5.0 [place] # 0.6 10 Normal 0.0-0.8 Eos # 0.0 10 Normal 0.0-0.5 Baso # 0.1 10 Normal 0.0-0.2 Laboratory test finding 12/07/2020 [facility] [address] [place] [address] (315)- - Erythrocyte Sedimentation Rate 24 mm/hr Normal 0-30 C Reactive Protein Quantitativ 0.95 mg/dL High 0.00-0.30 CBC With Differential 11/23/2020 [facility] [address] [place] [address] (315)- - White Blood Count 10.5 10 [...] 36.0-66.0 Lymph % 22.5 % Low 24.0-44.0 [place] % 7.2 % Normal 2.0-8.0 Eos % 0.4 % Normal 0.0-3.0 Baso % 0.8 % Normal 0.0-1.0 Immature Granulocyte % 0.4 % Normal 0-3.0 Nucleated Red Blood Cell % 0.0 % Normal 0-0 Neutrophils # 7.2 10 Normal 1.5-8.5 Lymph # 2.4 10 Normal 1.5-5.0 [place] # 0.8 10 Normal 0.0-0.8 Eos # 0.0 10 Normal 0.0-0.5 Baso # 0.1 10 Normal 0.0-0.2 Laboratory test finding 11/23/2020 [facility] [address] [place] [address] (547)- - Erythrocyte Sedimentation Rate 27 mm/hr Normal 0-30 C Reactive Protein Quantitativ 0.94 mg/dL High 0.00-0.30 Procedures Date Code Description Status 12/20/2020 39197 Physical Therapy Eval - Low Comp lexity Completed 12/07/2020 87637 Office/Outpatient Established Mo d MDM 30-39 Min Completed 12/02/2020 48272 Phone Evaluation/Management By Sue marquez 5-10 Mins Completed 11/23/2020 10665 Office/Outpatient Established Lo w MDM 20-29 Min Completed 11/11/2020 36641 Office/Outpatient Established Mo d MDM 30-39 Min Completed 11/11/2020 00485 X-Ray Knee Complete W/Obliques & Tunnel And/Or Standing Views Completed 11/04/2020 64057 Office/Outpatient Established Lo w MDM 20-29 Min Completed 10/29/2020 80021 Therapeutic Procedure, Each 15 M inutes Completed 10/27/2020 78421 Therapeutic Procedure, Each 15 M inutes Completed 10/22/2020 50941 Therapeutic Procedure, Each 15 M inutes Completed 10/19/2020 92932 Therapeutic Procedure, Each 15 M inutes Completed 10/15/2020 48499 Therapeutic Procedure, Each 15 M inutes Completed 10/12/2020 01500 Therapeutic Procedure, Each 15 M inutes Completed 10/08/2020 09376 Therapeutic Procedure, Each 15 M inutes Completed 10/05/2020 03144 Manual Therapy Each 15 Minutes C ompleted 10/05/2020 68689 Therapeutic Procedure, Each 15 M inutes Completed 09/29/2020 37570 Inject/Drain Joint/Bursa Major C ompleted 09/29/2020 66374 Therapeutic Procedure, Each 15 M inutes Completed 09/29/2020 71894 Office/Outpatient Established Lo w MDM 20-29 Min Completed 09/29/2020 03878 Manual Therapy Each 15 Minutes C ompleted 09/27/2020 46899 Therapeutic Procedure, Each 15 M inutes Completed 09/24/2020 44366 Therapeutic Procedure, Each 15 M inutes Completed 09/22/2020 98286 Therapeutic Procedure, Each 15 M inutes Completed 09/16/2020 72719 Manual Therapy Each 15 Minutes C ompleted 09/16/2020 89728 Therapeutic Procedure, Each 15 M inutes Completed 09/13/2020 77355 Manual Therapy Each 15 Minutes C ompleted 09/13/2020 99792 Therapeutic Procedure, Each 15 M inutes Completed 09/10/2020 83776 Therapeutic Procedure, Each 15 M inutes Completed 09/10/2020 27377 Manual Therapy Each 15 Minutes C ompleted 09/06/2020 12593 Manual Therapy Each 15 Minutes C ompleted 09/06/2020 92141 Therapeutic Procedure, Each 15 M inutes Completed 09/03/2020 61724 Manual Therapy Each 15 Minutes C ompleted 09/03/2020 80746 Therapeutic Procedure, Each 15 M inutes Completed 09/01/2020 45544 Manual Therapy Each 15 Minutes C ompleted 09/01/2020 92469 Therapeutic Procedure, Each 15 M inutes Completed 08/26/2020 04519 Physical Therapy Eval - Low Comp lexity Completed 08/17/2020 56895 Office/Outpatient Established Lo w MDM 20-29 Min Completed 08/17/2020 05619 X-Ray Hips Bilateral With Pelvis 3-4 Views Completed Medical Devices Description No Information Available Encounters Type Date Location Provider Dx Diagnosis Office Visit 12/07/2020 9:30a [place] Tenzin Martin PA-C S8 0.01xD Contusion of right knee, subsequent encounter L03.115 Cellulitis of right lower li mb M70.62 Trochanteric bursitis, left hip M70.61 Trochanteric bursitis, right hip Office Visit 12/02/2020 1:40p [place] RADHA Pope M70.62 Trochanteric bursitis, left hip M70.61 Trochanteric bursitis, right hip Office Visit 11/23/2020 11:15a [place] Aguero PA-C S80.01x D Contusion of right knee, subsequent encounter L03.115 Cellulitis of right lower li mb Office Visit 11/11/2020 2:40p [place] Tenzin Martin PA-C L0 3.115 Cellulitis of right lower limb M79.661 Pain in right lower leg Office Visit 11/04/2020 2:00p [place] Janeen Adair S80.01xA Contusion of right knee, initial encounter S60.212A Contusion of left wrist, ini tial encounter S60.211A Contusion of right wrist, in itial encounter Office Visit 09/29/2020 11:00a [place] Olmedo M16.0 Bilateral primary osteoarthritis of hip M70.61 Trochanteric bursitis, right hip M70.62 Trochanteric bursitis, left hip M25.562 Pain in left knee Office Visit 08/17/2020 2:30p [place] Olmed[place] M16.0 Bilateral primary osteoarthritis of hip M70.61 Trochanteric bursitis, right hip M70.62 Trochanteric bursitis, left hip Assessments Date Code Description Provider 12/20/2020 S80.01xD Contusion of right knee, subsequ ent encounter Vin Summers PT, DPT 12/20/2020 M70.62 Trochanteric bursitis, left hip Vin Summers PT, DPT 12/07/2020 S80.01xD Contusion of right knee, subsequ ent encounter Tenzin Martin PA-C 12/07/2020 L03.115 Cellulitis of right lower limb B mario Martin PA-C 12/07/2020 M70.62 Trochanteric bursitis, left hip Tenizn Martin, REGINO 12/07/2020 M70.61 Trochanteric bursitis, right hip Tenzin MikaDiane Martin, REGINO 12/02/2020 M70.62 Trochanteric bursitis, left hip Herrera CappsDiane Grant, PA 12/02/2020 M70.61 Trochanteric bursitis, right hip Herrera Rosanna Grant, PA 11/26/2020 M70.62 Trochanteric bursitis, left hip Fam Mccormack Han P.T. 11/26/2020 M70.61 Trochanteric bursitis, right hip Fam Mccormack Han P.T. 11/26/2020 M16.0 Bilateral primary osteoarthritis of hip Fam CarvalhoDiane Short P.T. 11/23/2020 S80.01xD Contusion of right knee, subsequ ent encounter Vivienne Aguero PA-C 11/23/2020 L03.115 Cellulitis of right lower limb Renee Aguero PA-C 11/11/2020 L03.115 Cellulitis of right lower limb B mario Martin PA-C 11/11/2020 M79.661 Pain in right lower leg Tenzin Martin PA-C 11/04/2020 S80.01xA Contusion of right knee, initial encounter Thomas Benavides, P.ADiane 11/04/2020 S60.212A Contusion of left wrist, initial encounter Thomas Benavides P.ADiane 11/04/2020 S60.211A Contusion of right wrist, initia l encounter Thomas Benavides P.ADiane 10/29/2020 M16.0 Bilateral primary osteoarthritis of hip Latonya Luci Power, RESEARCH ADVISOR 10/29/2020 M70.61 Trochanteric bursitis, right hip Latonya Power, RESEARCH ADVISOR 10/29/2020 M70.62 Trochanteric bursitis, left hip Latonyamaxim Power, RESEARCH ADVISOR 10/27/2020 M16.0 Bilateral primary osteoarthritis of hip Latonya Luci Tono, RESEARCH ADVISOR 10/27/2020 M70.61 Trochanteric bursitis, right hip Latonya Luci Power, RESEARCH ADVISOR 10/27/2020 M70.62 Trochanteric bursitis, left hip Latonya Luci Power, RESEARCH ADVISOR 10/22/2020 M16.0 Bilateral primary osteoarthritis of hip Latonya Luci Power, RESEARCH ADVISOR 10/22/2020 M70.61 Trochanteric bursitis, right hip Latonya Luci Power, RESEARCH ADVISOR 10/22/2020 M70.62 Trochanteric bursitis, left hip Latonya Luci Power, RESEARCH ADVISOR 10/19/2020 M16.0 Bilateral primary osteoarthritis of hip Latonya Luci Power, RESEARCH ADVISOR 10/19/2020 M70.61 Trochanteric bursitis, right hip Latonya Luci Power, RESEARCH ADVISOR 10/19/2020 M70.62 Trochanteric bursitis, left hip Latonya Luci Power, RESEARCH ADVISOR 10/15/2020 M16.0 Bilateral primary osteoarthritis of hip Latonya Luci Power, RESEARCH ADVISOR 10/15/2020 M70.61 Trochanteric bursitis, right hip Latonya Luci Power, RESEARCH ADVISOR 10/15/2020 M70.62 Trochanteric bursitis, left hip Latonya Luci Power, RESEARCH ADVISOR 10/12/2020 M16.0 Bilateral primary osteoarthritis of hip Latonya Luci Power, RESEARCH ADVISOR 10/12/2020 M70.61 Trochanteric bursitis, right hip Latonya Luci Power, RESEARCH ADVISOR 10/12/2020 M70.62 Trochanteric bursitis, left hip Latonya Luci Power, RESEARCH ADVISOR 10/08/2020 M16.0 Bilateral primary osteoarthritis of hip Latonya Luci Power, RESEARCH ADVISOR 10/08/2020 M70.61 Trochanteric bursitis, right hip Latonya Luci Power, RESEARCH ADVISOR 10/08/2020 M70.62 Trochanteric bursitis, left hip Latonya Luci Power, RESEARCH ADVISOR 10/05/2020 M16.0 Bilateral primary osteoarthritis of hip Fam Short P.T. 10/05/2020 M70.61 Trochanteric bursitis, right hip Fam Short P.T. 10/05/2020 M70.62 Trochanteric bursitis, left hip Fam Deven. Cook P.T. 09/29/2020 M16.0 Bilateral primary osteoarthritis of hip Latonya Luci Power, RESEARCH ADVISOR 09/29/2020 M16.0 Bilateral primary osteoarthritis of hip Herrera Marte Rudy, PA 09/29/2020 M70.61 Trochanteric bursitis, right hip Herrera Marte Rudy, PA 09/29/2020 M70.61 Trochanteric bursitis, right hip Latonya Luci Power, RESEARCH ADVISOR 09/29/2020 M70.62 Trochanteric bursitis, left hip Herrera Marte Rudy, PA 09/29/2020 M25.562 Pain in left knee Herrerakraig Marte Rudy , PA 09/29/2020 M70.62 Trochanteric bursitis, left hip Latonya Power, RESEARCH ADVISOR 09/27/2020 M16.0 Bilateral primary osteoarthritis of hip [...] primary osteoarthritis of hip Latonya Luci Power, RESEARCH ADVISOR 09/16/2020 M70.61 Trochanteric bursitis, right hip Latonya Luci Power, RESEARCH ADVISOR 09/16/2020 M70.62 Trochanteric bursitis, left hip Latonya Luci Power, RESEARCH ADVISOR 09/13/2020 M16.0 Bilateral primary osteoarthritis of hip Latonya Luci Power, RESEARCH ADVISOR 09/13/2020 M70.61 Trochanteric bursitis, right hip Latonya Luci Power, RESEARCH ADVISOR 09/13/2020 M70.62 Trochanteric bursitis, left hip Latonya Luci Power, RESEARCH ADVISOR 09/10/2020 M16.0 Bilateral primary osteoarthritis of hip Latonya Luci Power, RESEARCH ADVISOR 09/10/2020 M70.61 Trochanteric bursitis, right hip Latonya Luci Power, RESEARCH ADVISOR 09/10/2020 M70.62 Trochanteric bursitis, left hip Latonya Luci Power, RESEARCH ADVISOR 09/06/2020 M16.0 Bilateral primary osteoarthritis of hip Latonya Luci Power, RESEARCH ADVISOR 09/06/2020 M70.61 Trochanteric bursitis, right hip Latonya Luci Power, RESEARCH ADVISOR 09/06/2020 M70.62 Trochanteric bursitis, left hip Latonya Luci Power, RESEARCH ADVISOR 09/03/2020 M16.0 Bilateral primary osteoarthritis of hip Latonya Luci Power, RESEARCH ADVISOR 09/03/2020 M70.61 Trochanteric bursitis, right hip Latonya Luci Power, RESEARCH ADVISOR 09/03/2020 M70.62 Trochanteric bursitis, left hip Latonya Luci Power, RESEARCH ADVISOR 09/01/2020 M16.0 Bilateral primary osteoarthritis of hip Latonya Luci Power, RESEARCH ADVISOR 09/01/2020 M70.61 Trochanteric bursitis, right hip Latonya Luci Power, RESEARCH ADVISOR 09/01/2020 M70.62 Trochanteric bursitis, left hip Latonya Luci Power, RESEARCH ADVISOR 08/26/2020 M16.0 Bilateral primary osteoarthritis of hip Fam Short P.T. 08/26/2020 M70.61 Trochanteric bursitis, right hip Fam Ksenia Short P.T. 08/26/2020 M70.62 Trochanteric bursitis, left hip Famrocio Short P.T. 08/17/2020 M16.0 Bilateral primary osteoarthritis of hip Herrera Grant, [place] 08/17/2020 M70.61 Trochanteric bursitis, right hip RADHA Pope 08/17/2020 M70.62 Trochanteric bursitis, left hip RADHA Pope Plan of Treatment Future Appointment(s):* 12/27/2020 11:00 am - Latonya Power, RESEARCH ADVISOR at Physical Therapy * 12/30/2020 11:00 am - Latonya Power, RESEARCH ADVISOR at Physical Therapy * 01/07/2021 10:45 am - Tenzin Martin PA-C at [place] Functional Status Description No Information Available Mental Status Description No Information Available Referrals Refer to Dr Reason for Referral Status Appt Date Tenzin Martin PA-C CT RT KNEE With and Without Contrast per medicare no auth req based on medical necessity, per Karol Chau at [facility] no auth req as this is a supplemental plan, ref [id number],passed to [facility] to schedule sw. Created [address] [place] [address] [phone] Tenzin Martin PA-C CT RT KNEE With and Without Contrast per medicare no auth req based on medical necessity, per Karol Chau at [facility] no auth req as this is a supplemental plan, ref [id number],passed to [facility] to schedule sw. Created [address] [place] [address] [phone] Fam Short RPT NO AUTH REQUIRED. FOLLOWS R GUIDELINES. REF #[id number]. HW Created [address] [place] [address] [phone] [facility] Mark Hips no auth req based on medical necessity patient is going to [facility] passed to PT Dept sw. Created [facility] [place] [address] [phone]
--- OUTSIDE RECORDS SUMMARY | 2021-01-22 21:22 | CCD | Continuity of Care Document ---
Author Author Lianne ALAMO PA Organization Unknown Address [address] [place] [address], [address] [address] Phone [phone] Care Team Providers Care Security Guard Name Role Phone Bill Tapia MD [facility] [phone] Problems Description No Active Problems Social History [...] H/L Range Note CBC With Differential 12/07/2020 [facility] [address] [place] [address] (315)- - White Blood Count 8.1 10 [...] 36.0-66.0 Lymph % 24.9 % Normal 24.0-44.0 Green[place] % 6.8 % Normal 2.0-8.0 Eos % 0.5 % Normal 0.0-3.0 Baso % 0.7 % Normal 0.0-1.0 Immature Granulocyte % 0.5 % Normal 0-3.0 Nucleated Red Blood Cell % 0.0 % Normal 0-0 Neutrophils # 5.4 10 Normal 1.5-8.5 Lymph # 2.0 10 Normal 1.5-5.0 Greenwood # 0.6 10 Normal 0.0-0.8 Eos # 0.0 10 Normal 0.0-0.5 Baso # 0.1 10 Normal 0.0-0.2 Laboratory test finding 12/07/2020 [facility] [address] [place] [address] (315)- - Erythrocyte Sedimentation Rate 24 mm/hr Normal 0-30 C Reactive Protein Quantitativ 0.95 mg/dL High 0.00-0.30 CBC With Differential 11/23/2020 [facility] [address] [place] [address] (315)- - White Blood Count 10.5 10 [...] 36.0-66.0 Lymph % 22.5 % Low 24.0-44.0 Greenwood % 7.2 % Normal 2.0-8.0 Eos % 0.4 % Normal 0.0-3.0 Baso % 0.8 % Normal 0.0-1.0 Immature Granulocyte % 0.4 % Normal 0-3.0 Nucleated Red Blood Cell % 0.0 % Normal 0-0 Neutrophils # 7.2 10 Normal 1.5-8.5 Lymph # 2.4 10 Normal 1.5-5.0 Greenwood # 0.8 10 Normal 0.0-0.8 Eos # 0.0 10 Normal 0.0-0.5 Baso # 0.1 10 Normal 0.0-0.2 Laboratory test finding 11/23/2020 [facility] [address] [place] [address] [phone])- - Erythrocyte Sedimentation Rate 27 mm/hr Normal 0-30 C Reactive Protein Quantitativ 0.94 mg/dL High 0.00-0.30 Procedures Date Code Description Status 12/07/2020 55080 Office/Outpatient Established Mo d MDM 30-39 Min Completed 12/02/2020 15507 Phone Evaluation/Management By Sue marquez 5-10 Mins Completed 11/23/2020 57964 Office/Outpatient Established Lo w MDM 20-29 Min Completed 11/11/2020 19944 Office/Outpatient Established Mo d MDM 30-39 Min Completed 11/11/2020 70204 X-Ray Knee Complete W/Obliques & Tunnel And/Or Standing Views Completed 11/04/2020 71730 Office/Outpatient Established Lo w MDM 20-29 Min Completed 10/29/2020 79770 Therapeutic Procedure, Each 15 M inutes Completed 10/27/2020 10480 Therapeutic Procedure, Each 15 M inutes Completed 10/22/2020 27318 Therapeutic Procedure, Each 15 M inutes Completed 10/19/2020 41737 Therapeutic Procedure, Each 15 M inutes Completed 10/15/2020 77313 Therapeutic Procedure, Each 15 M inutes Completed 10/12/2020 89534 Therapeutic Procedure, Each 15 M inutes Completed 10/08/2020 71360 Therapeutic Procedure, Each 15 M inutes Completed 10/05/2020 83787 Manual Therapy Each 15 Minutes C ompleted 10/05/2020 74876 Therapeutic Procedure, Each 15 M inutes Completed 09/29/2020 01929 Inject/Drain Joint/Bursa Major C ompleted 09/29/2020 29431 Therapeutic Procedure, Each 15 M inutes Completed 09/29/2020 35754 Office/Outpatient Established Lo w MDM 20-29 Min Completed 09/29/2020 96955 Manual Therapy Each 15 Minutes C ompleted 09/27/2020 15501 Therapeutic Procedure, Each 15 M inutes Completed 09/24/2020 09691 Therapeutic Procedure, Each 15 M inutes Completed 09/22/2020 14741 Therapeutic Procedure, Each 15 M inutes Completed 09/16/2020 16496 Manual Therapy Each 15 Minutes C ompleted 09/16/2020 85423 Therapeutic Procedure, Each 15 M inutes Completed 09/13/2020 78366 Manual Therapy Each 15 Minutes C ompleted 09/13/2020 62350 Therapeutic Procedure, Each 15 M inutes Completed 09/10/2020 17188 Therapeutic Procedure, Each 15 M inutes Completed 09/10/2020 31488 Manual Therapy Each 15 Minutes C ompleted 09/06/2020 65559 Manual Therapy Each 15 Minutes C ompleted 09/06/2020 13064 Therapeutic Procedure, Each 15 M inutes Completed 09/03/2020 45657 Manual Therapy Each 15 Minutes C ompleted 09/03/2020 84860 Therapeutic Procedure, Each 15 M inutes Completed 09/01/2020 59032 Manual Therapy Each 15 Minutes C ompleted 09/01/2020 93709 Therapeutic Procedure, Each 15 M inutes Completed 08/26/2020 59793 Physical Therapy Eval - Low Comp lexity Completed 08/17/2020 81595 Office/Outpatient Established Lo w MDM 20-29 Min Completed 08/17/2020 29393 X-Ray Hips Bilateral With Pelvis 3-4 Views Completed Medical Devices Description No Information Available Encounters Type Date Location Provider Dx Diagnosis Office Visit 12/07/2020 9:30a [facility] Barratt M. Martin, PA-C S8 0.01xD Contusion of right knee, subsequent encounter L03.115 Cellulitis of right lower li mb M70.62 Trochanteric bursitis, left hip M70.61 Trochanteric bursitis, right hip Office Visit 12/02/2020 1:40p [facility] RADHA Pope M70.62 Trochanteric bursitis, left hip M70.61 Trochanteric bursitis, right hip Office Visit 11/23/2020 11:15a [facility] Vivienne Aguero PA-C S80.01x D Contusion of right knee, subsequent encounter L03.115 Cellulitis of right lower li mb Office Visit 11/11/2020 2:40p [facility] Tenzin Martin PA-C L0 3.115 Cellulitis of right lower limb M79.661 Pain in right lower leg Office Visit 11/04/2020 2:00p [facility] Thomas Benavides PDianeADiane S80.01xA Contusion of right knee, initial encounter S60.212A Contusion of left wrist, ini tial encounter S60.211A Contusion of right wrist, in itial encounter Office Visit 09/29/2020 11:00a [facility] M16.0 Bilateral primary osteoarthritis of hip M70.61 Trochanteric bursitis, right hip M70.62 Trochanteric bursitis, left hip M25.562 Pain in left knee Office Visit 08/17/2020 2:30p [facility] M16.0 Bilateral primary osteoarthritis of hip [...] 12/02/2020 M70.62 Trochanteric bursitis, left hip Herrera Rosanna Alamo, RADHA 12/02/2020 M70.61 Trochanteric bursitis, right hip Herrera Rosanna Alamo, RADHA 11/26/2020 M70.62 Trochanteric bursitis, left hip [...] primary osteoarthritis of hip Latonya Luci Power, CREDIT COLLECTIONS CLERK 10/29/2020 M70.61 Trochanteric bursitis, right hip Latonya Luci Power, CREDIT COLLECTIONS CLERK 10/29/2020 M70.62 Trochanteric bursitis, left hip Latonya Luci Power, CREDIT COLLECTIONS CLERK 10/27/2020 M16.0 Bilateral primary osteoarthritis of hip Latonya Luci Power, CREDIT COLLECTIONS CLERK 10/27/2020 M70.61 Trochanteric bursitis, right hip Latonya Luci Power, CREDIT COLLECTIONS CLERK 10/27/2020 M70.62 Trochanteric bursitis, left hip Latonya Luci Power, CREDIT COLLECTIONS CLERK 10/22/2020 M16.0 Bilateral primary osteoarthritis of hip Latonya Luci Power, CREDIT COLLECTIONS CLERK 10/22/2020 M70.61 Trochanteric bursitis, right hip Latnoya Luci Power, CREDIT COLLECTIONS CLERK 10/22/2020 M70.62 Trochanteric bursitis, left hip Latonya Luci Power, CREDIT COLLECTIONS CLERK 10/19/2020 M16.0 Bilateral primary osteoarthritis of hip Latonya Luci Power, CREDIT COLLECTIONS CLERK 10/19/2020 M70.61 Trochanteric bursitis, right hip Latonya Luci Power, CREDIT COLLECTIONS CLERK 10/19/2020 M70.62 Trochanteric bursitis, left hip Latonya Luci Power, CREDIT COLLECTIONS CLERK 10/15/2020 M16.0 Bilateral primary osteoarthritis of hip Latonya Luci Power, CREDIT COLLECTIONS CLERK 10/15/2020 M70.61 Trochanteric bursitis, right hip Latonya Luci Power, CREDIT COLLECTIONS CLERK 10/15/2020 M70.62 Trochanteric bursitis, left hip Latonya Luci Power, CREDIT COLLECTIONS CLERK 10/12/2020 M16.0 Bilateral primary osteoarthritis of hip Latonya Luci Power, CREDIT COLLECTIONS CLERK 10/12/2020 M70.61 Trochanteric bursitis, right hip Latonya Luci Power, CREDIT COLLECTIONS CLERK 10/12/2020 M70.62 Trochanteric bursitis, left hip Latonya Luci Power, CREDIT COLLECTIONS CLERK 10/08/2020 M16.0 Bilateral primary osteoarthritis of hip Latonya Luci Power, CREDIT COLLECTIONS CLERK 10/08/2020 M70.61 Trochanteric bursitis, right hip Latonya Luci Power, CREDIT COLLECTIONS CLERK 10/08/2020 M70.62 Trochanteric bursitis, left hip Latonya Luci Power, CREDIT COLLECTIONS CLERK 10/05/2020 M16.0 Bilateral primary osteoarthritis of hip Fam Ksenia Short P.T. 10/05/2020 M70.61 Trochanteric bursitis, right hip Fam Ksenia Short P.T. 10/05/2020 M70.62 Trochanteric bursitis, left hip Fam Ksenia Short P.T. 09/29/2020 M16.0 Bilateral primary osteoarthritis of hip Latonya Luci Power, CREDIT COLLECTIONS CLERK 09/29/2020 M16.0 Bilateral primary osteoarthritis of hip Herrera Alamo, PA 09/29/2020 M70.61 Trochanteric bursitis, right hip Herrera Marte Rudy, PA 09/29/2020 M70.61 Trochanteric bursitis, right hip Latonya Luci Power, CREDIT COLLECTIONS CLERK 09/29/2020 M70.62 Trochanteric bursitis, left hip Herrera Marte Rudy, PA 09/29/2020 M25.562 Pain in left knee Herrerakraig Marte Rudy , PA 09/29/2020 M70.62 Trochanteric bursitis, left hip Latonya Luci Power, CREDIT COLLECTIONS CLERK 09/27/2020 M16.0 Bilateral primary osteoarthritis of hip Fam J. Cook P.T. 09/27/2020 M70.61 Trochanteric bursitis, right hip Fam Deven. Cook P.T. 09/27/2020 M70.62 Trochanteric bursitis, left hip Fam Deven. Cook P.T. 09/24/2020 M16.0 Bilateral primary osteoarthritis of hip Fam J. Cook P.T. 09/24/2020 M70.61 Trochanteric bursitis, right hip Fam J. Cook P.T. 09/24/2020 M70.62 Trochanteric bursitis, left hip Fma J. Cook P.T. 09/22/2020 M16.0 Bilateral primary osteoarthritis of hip Fam J. Cook P.T. 09/22/2020 M70.61 Trochanteric bursitis, right hip Fam Deven. Cook P.T. 09/22/2020 M70.62 Trochanteric bursitis, left hip Fam Deven. Cook P.T. 09/16/2020 M16.0 Bilateral primary osteoarthritis of hip Latonya Luci Power, CREDIT COLLECTIONS CLERK 09/16/2020 M70.61 Trochanteric bursitis, right hip Latonya Luci Power, CREDIT COLLECTIONS CLERK 09/16/2020 M70.62 Trochanteric bursitis, left hip Latonya Luci Power, CREDIT COLLECTIONS CLERK 09/13/2020 M16.0 Bilateral primary osteoarthritis of hip Latonya Luci Power, CREDIT COLLECTIONS CLERK 09/13/2020 M70.61 Trochanteric bursitis, right hip Latonya Luci Power, CREDIT COLLECTIONS CLERK 09/13/2020 M70.62 Trochanteric bursitis, left hip Latonya Luci Power, CREDIT COLLECTIONS CLERK 09/10/2020 M16.0 Bilateral primary osteoarthritis of hip Latonya Luci Power, CREDIT COLLECTIONS CLERK 09/10/2020 M70.61 Trochanteric bursitis, right hip Latonya Luci Power, CREDIT COLLECTIONS CLERK 09/10/2020 M70.62 Trochanteric bursitis, left hip Latonya Luci Power, CREDIT COLLECTIONS CLERK 09/06/2020 M16.0 Bilateral primary osteoarthritis of hip Latonya Luci Power, CREDIT COLLECTIONS CLERK 09/06/2020 M70.61 Trochanteric bursitis, right hip Latonya Luci Power, CREDIT COLLECTIONS CLERK 09/06/2020 M70.62 Trochanteric bursitis, left hip Latonya Luci Power, CREDIT COLLECTIONS CLERK 09/03/2020 M16.0 Bilateral primary osteoarthritis of hip Latonya Luci Power, CREDIT COLLECTIONS CLERK 09/03/2020 M70.61 Trochanteric bursitis, right hip Latonya Luci Power, CREDIT COLLECTIONS CLERK 09/03/2020 M70.62 Trochanteric bursitis, left hip Latonya Luci Power, CREDIT COLLECTIONS CLERK 09/01/2020 M16.0 Bilateral primary osteoarthritis of hip Latonya Luci Power, CREDIT COLLECTIONS CLERK 09/01/2020 M70.61 Trochanteric bursitis, right hip Latonya Luci Power, CREDIT COLLECTIONS CLERK 09/01/2020 M70.62 Trochanteric bursitis, left hip Latonya Luci Power, CREDIT COLLECTIONS CLERK 08/26/2020 M16.0 Bilateral primary osteoarthritis of hip Fam Ksenia Short P.T. 08/26/2020 M70.61 Trochanteric bursitis, right hip Fam Ksenia Short P.T. 08/26/2020 M70.62 Trochanteric bursitis, left hip Fam J. Han P.T. 08/17/2020 M16.0 Bilateral primary osteoarthritis of hip RADHA Pope 08/17/2020 M70.61 Trochanteric bursitis, right hip RADHA Pope 08/17/2020 M70.62 Trochanteric bursitis, left hip RADHA Pope Plan of Treatment Future Appointment(s):* 12/20/2020 10:30 am - Vin Summers, PT, DPT at Physical Therapy * 01/07/2021 10:45 am - Tenzin Martin PA-C at [facility] Functional Status Description No Information Available Mental Status Description No Information Available Referrals Refer to Dr Reason for Referral Status Appt Date Tenzin Martin PA-C CT RT KNEE With and Without Contrast per medicare no auth req based on medical necessity, per Karol Chau at [facility] no auth req as this is a supplemental plan, ref [id number],passed to [facility] to schedule sw. Created [address] [place] [address] [phone] Tenzin Martin PA-C CT RT KNEE With and Without Contrast per medicare no auth req based on medical necessity, per Karol Chau at [facility] no auth req as this is a supplemental plan, ref [id number],passed to [facility] to schedule sw. Created [address] [place] [address] [phone] Fam Short, JAYA NO AUTH REQUIRED. FOLLOWS R GUIDELINES. REF #[id number]. HW Created [address] [place] [address] [phone] Herrera Alamo I, Pac [facility] Mark Hips no auth req based on medical necessity patient is going to [facility] passed to PT Dept sw. Created [address] [address] [phone]
--- OUTSIDE RECORDS SUMMARY | 2021-01-22 21:22 | CCD | Continuity of Care Document ---
Author Author Lianne LUCIANO PAMiriamC Organization Unknown Address [address] [place] [id number] Phone [phone] Care Team Providers Care Consumer Marketing Specialist Name Role Phone Bill Tapia MD [facility] [phone] Problems Description No Active Problems Social History [...] H/L Range Note CBC With Differential 12/07/2020 [facility] [address] [place] [address] (315)- - White Blood Count 8.1 10 [...] 36.0-66.0 Lymph % 24.9 % Normal 24.0-44.0 Burnet % 6.8 % Normal 2.0-8.0 Eos % 0.5 % Normal 0.0-3.0 Baso % 0.7 % Normal 0.0-1.0 Immature Granulocyte % 0.5 % Normal 0-3.0 Nucleated Red Blood Cell % 0.0 % Normal 0-0 Neutrophils # 5.4 10 Normal 1.5-8.5 Lymph # 2.0 10 Normal 1.5-5.0 Burnet # 0.6 10 Normal 0.0-0.8 Eos # 0.0 10 Normal 0.0-0.5 Baso # 0.1 10 Normal 0.0-0.2 Laboratory test finding 12/07/2020 [facility] [address] [place] [address] (315)- - Erythrocyte Sedimentation Rate 24 mm/hr Normal 0-30 C Reactive Protein Quantitativ 0.95 mg/dL High 0.00-0.30 CBC With Differential 11/23/2020 [facility] [address] [place] [address] (315)- - White Blood Count 10.5 10 [...] 36.0-66.0 Lymph % 22.5 % Low 24.0-44.0 Burnet % 7.2 % Normal 2.0-8.0 Eos % 0.4 % Normal 0.0-3.0 Baso % 0.8 % Normal 0.0-1.0 Immature Granulocyte % 0.4 % Normal 0-3.0 Nucleated Red Blood Cell % 0.0 % Normal 0-0 Neutrophils # 7.2 10 Normal 1.5-8.5 Lymph # 2.4 10 Normal 1.5-5.0 Burnet # 0.8 10 Normal 0.0-0.8 Eos # 0.0 10 Normal 0.0-0.5 Baso # 0.1 10 Normal 0.0-0.2 Laboratory test finding 11/23/2020 [facility] [address] [place] [address] [phone] - Erythrocyte Sedimentation Rate 27 mm/hr Normal 0-30 C Reactive Protein Quantitativ 0.94 mg/dL High 0.00-0.30 Procedures Date Code Description Status 12/07/2020 21227 Office/Outpatient Established Mo d MDM 30-39 Min Completed 12/02/2020 40324 Phone Evaluation/Management By Sue marquez 5-10 Mins Completed 11/23/2020 02763 Office/Outpatient Established Lo w MDM 20-29 Min Completed 11/11/2020 81785 Office/Outpatient Established Mo d MDM 30-39 Min Completed 11/11/2020 95090 X-Ray Knee Complete W/Obliques & Tunnel And/Or Standing Views Completed 11/04/2020 01580 Office/Outpatient Established Lo w MDM 20-29 Min Completed 10/29/2020 26294 Therapeutic Procedure, Each 15 M inutes Completed 10/27/2020 06661 Therapeutic Procedure, Each 15 M inutes Completed 10/22/2020 59047 Therapeutic Procedure, Each 15 M inutes Completed 10/19/2020 27560 Therapeutic Procedure, Each 15 M inutes Completed 10/15/2020 76619 Therapeutic Procedure, Each 15 M inutes Completed 10/12/2020 59953 Therapeutic Procedure, Each 15 M inutes Completed 10/08/2020 02906 Therapeutic Procedure, Each 15 M inutes Completed 10/05/2020 29357 Manual Therapy Each 15 Minutes C ompleted 10/05/2020 86924 Therapeutic Procedure, Each 15 M inutes Completed 09/29/2020 29904 Inject/Drain Joint/Bursa Major C ompleted 09/29/2020 96193 Therapeutic Procedure, Each 15 M inutes Completed 09/29/2020 50592 Office/Outpatient Established Lo w MDM 20-29 Min Completed 09/29/2020 46512 Manual Therapy Each 15 Minutes C ompleted 09/27/2020 33820 Therapeutic Procedure, Each 15 M inutes Completed 09/24/2020 42302 Therapeutic Procedure, Each 15 M inutes Completed 09/22/2020 01226 Therapeutic Procedure, Each 15 M inutes Completed 09/16/2020 60773 Manual Therapy Each 15 Minutes C ompleted 09/16/2020 46412 Therapeutic Procedure, Each 15 M inutes Completed 09/13/2020 55965 Manual Therapy Each 15 Minutes C ompleted 09/13/2020 59581 Therapeutic Procedure, Each 15 M inutes Completed 09/10/2020 88538 Therapeutic Procedure, Each 15 M inutes Completed 09/10/2020 99368 Manual Therapy Each 15 Minutes C ompleted 09/06/2020 81829 Manual Therapy Each 15 Minutes C ompleted 09/06/2020 57378 Therapeutic Procedure, Each 15 M inutes Completed 09/03/2020 51038 Manual Therapy Each 15 Minutes C ompleted 09/03/2020 57029 Therapeutic Procedure, Each 15 M inutes Completed 09/01/2020 17845 Manual Therapy Each 15 Minutes C ompleted 09/01/2020 44366 Therapeutic Procedure, Each 15 M inutes Completed 08/26/2020 17201 Physical Therapy Eval - Low Comp lexity Completed 08/17/2020 52938 Office/Outpatient Established Lo w MDM 20-29 Min Completed 08/17/2020 18633 X-Ray Hips Bilateral With Pelvis 3-4 Views Completed Medical Devices Description No Information Available Encounters Type Date Location Provider Dx Diagnosis Office Visit 12/07/2020 9:30a Jannie Luciano PA-C S8 0.01xD Contusion of right knee, subsequent encounter L03.115 Cellulitis of right lower li mb M70.62 Trochanteric bursitis, left hip M70.61 Trochanteric bursitis, right hip Office Visit 12/02/2020 1:40p [place] RADHA Pope M70.62 Trochanteric bursitis, left hip M70.61 Trochanteric bursitis, right hip Office Visit 11/23/2020 11:15a [place] Vivienne Aguero PA-C S80.01x D Contusion of right knee, subsequent encounter L03.115 Cellulitis of right lower li mb Office Visit 11/11/2020 2:40p [place] Tenzin Luciano PA-C L0 3.115 Cellulitis of right lower limb M79.661 Pain in right lower leg Office Visit 11/04/2020 2:00p [place] Janeen Adair S80.01xA Contusion of right knee, initial encounter S60.212A Contusion of left wrist, ini tial encounter S60.211A Contusion of right wrist, in itial encounter Office Visit 09/29/2020 11[place] M16.0 Bilateral primary osteoarthritis of hip M70.61 Trochanteric bursitis, right hip M70.62 Trochanteric bursitis, left hip M25.562 Pain in left knee Office Visit 08/17/2020 2:30p [place] RADHA Pope M16.0 Bilateral primary osteoarthritis of hip M70.61 Trochanteric bursitis, right hip M70.62 Trochanteric bursitis, left hip Assessments Date Code Description Provider 12/07/2020 S80.01xD Contusion of right knee, subsequ ent encounter Tenzin Luciano PA-C 12/07/2020 L03.115 Cellulitis of right lower limb B mario Luciano PA-C 12/07/2020 M70.62 Trochanteric bursitis, left hip Tenzin Luciano PA-C 12/07/2020 M70.61 Trochanteric bursitis, right hip Tenzin Luciano PA-C 12/02/2020 M70.62 Trochanteric bursitis, left hip Herrera Rosanna Grant, RADHA 12/02/2020 M70.61 Trochanteric bursitis, right hip Herrera CappsDiane Grant, RADHA 11/26/2020 M70.62 Trochanteric bursitis, left [...] primary osteoarthritis of hip Latonya Luci Power, PERINATAL NURSE 10/29/2020 M70.61 Trochanteric bursitis, right hip Latonya Luci Power, PERINATAL NURSE 10/29/2020 M70.62 Trochanteric bursitis, left hip Latonya Luci Power, PERINATAL NURSE 10/27/2020 M16.0 Bilateral primary osteoarthritis of hip Latonya Luci Power, PERINATAL NURSE 10/27/2020 M70.61 Trochanteric bursitis, right hip Latonya Luci Power, PERINATAL NURSE 10/27/2020 M70.62 Trochanteric bursitis, left hip Latonya Luci Power, PERINATAL NURSE 10/22/2020 M16.0 Bilateral primary osteoarthritis of hip Latonya Luci Power, PERINATAL NURSE 10/22/2020 M70.61 Trochanteric bursitis, right hip Latonya Luci Power, PERINATAL NURSE 10/22/2020 M70.62 Trochanteric bursitis, left hip Latonya Lcui Power, PERINATAL NURSE 10/19/2020 M16.0 Bilateral primary osteoarthritis of hip Latonya Luci Power, PERINATAL NURSE 10/19/2020 M70.61 Trochanteric bursitis, right hip Latonya Luci Power, PERINATAL NURSE 10/19/2020 M70.62 Trochanteric bursitis, left hip Latonya Luci Power, PERINATAL NURSE 10/15/2020 M16.0 Bilateral primary osteoarthritis of hip Latonya Luci Power, PERINATAL NURSE 10/15/2020 M70.61 Trochanteric bursitis, right hip Latonya Luci Power, PERINATAL NURSE 10/15/2020 M70.62 Trochanteric bursitis, left hip Latonya Luci Power, PERINATAL NURSE 10/12/2020 M16.0 Bilateral primary osteoarthritis of hip Latonya Luci Power, PERINATAL NURSE 10/12/2020 M70.61 Trochanteric bursitis, right hip Latonya Luci Power, PERINATAL NURSE 10/12/2020 M70.62 Trochanteric bursitis, left hip Latonya Luci Power, PERINATAL NURSE 10/08/2020 M16.0 Bilateral primary osteoarthritis of hip Latonya Luci Power, PERINATAL NURSE 10/08/2020 M70.61 Trochanteric bursitis, right hip Latonya Luci Power, PERINATAL NURSE 10/08/2020 M70.62 Trochanteric bursitis, left hip Latonya Luci Power, PERINATAL NURSE 10/05/2020 M16.0 Bilateral primary osteoarthritis of hip Fam Short P.T. 10/05/2020 M70.61 Trochanteric bursitis, right hip Fam Ksenia Short P.T. 10/05/2020 M70.62 Trochanteric bursitis, left hip Fam Ksenia Short P.T. 09/29/2020 M16.0 Bilateral primary osteoarthritis of hip Latonya Luci Power, PERINATAL NURSE 09/29/2020 M16.0 Bilateral primary osteoarthritis of hip Herrera Grant, PA 09/29/2020 M70.61 Trochanteric bursitis, right hip Herrera Marte Rudy, PA 09/29/2020 M70.61 Trochanteric bursitis, right hip Latonya Luci Power, PERINATAL NURSE 09/29/2020 M70.62 Trochanteric bursitis, left hip Herrera Marte Rudy, PA 09/29/2020 M25.562 Pain in left knee Herrerakraig Marte Rudy , PA 09/29/2020 M70.62 Trochanteric bursitis, left hip Latonya Luci Power, PERINATAL NURSE 09/27/2020 M16.0 Bilateral primary osteoarthritis of hip [...] primary osteoarthritis of hip Latonya Luci Power, PERINATAL NURSE 09/16/2020 M70.61 Trochanteric bursitis, right hip Latonya Luci Power, PERINATAL NURSE 09/16/2020 M70.62 Trochanteric bursitis, left hip Latonya Luci Power, PERINATAL NURSE 09/13/2020 M16.0 Bilateral primary osteoarthritis of hip Latonya Luci Power, PERINATAL NURSE 09/13/2020 M70.61 Trochanteric bursitis, right hip Latonya Luci Power, PERINATAL NURSE 09/13/2020 M70.62 Trochanteric bursitis, left hip Latonya Luci Power, PERINATAL NURSE 09/10/2020 M16.0 Bilateral primary osteoarthritis of hip Latonya Luci Power, PERINATAL NURSE 09/10/2020 M70.61 Trochanteric bursitis, right hip Latonya Luci Power, PERINATAL NURSE 09/10/2020 M70.62 Trochanteric bursitis, left hip Latonya Luci Power, PERINATAL NURSE 09/06/2020 M16.0 Bilateral primary osteoarthritis of hip Latonya Luci Power, PERINATAL NURSE 09/06/2020 M70.61 Trochanteric bursitis, right hip Latonya Luci Power, PERINATAL NURSE 09/06/2020 M70.62 Trochanteric bursitis, left hip Latonya Luci Power, PERINATAL NURSE 09/03/2020 M16.0 Bilateral primary osteoarthritis of hip Latonya Luci Power, PERINATAL NURSE 09/03/2020 M70.61 Trochanteric bursitis, right hip Latonya Luci Power, PERINATAL NURSE 09/03/2020 M70.62 Trochanteric bursitis, left hip Latonya Luci Power, PERINATAL NURSE 09/01/2020 M16.0 Bilateral primary osteoarthritis of hip Latonya Luci Power, PERINATAL NURSE 09/01/2020 M70.61 Trochanteric bursitis, right hip Latonya Luci Power, PERINATAL NURSE 09/01/2020 M70.62 Trochanteric bursitis, left hip Latonya Luci Power, PERINATAL NURSE 08/26/2020 M16.0 Bilateral primary osteoarthritis of hip Fam Deven. Han P.T. 08/26/2020 M70.61 Trochanteric bursitis, right hip Fam Deven. Han P.T. 08/26/2020 M70.62 Trochanteric bursitis, left hip Fam J. Han P.T. 08/17/2020 M16.0 Bilateral primary osteoarthritis of hip RADHA Pope 08/17/2020 M70.61 Trochanteric bursitis, right hip RADHA Pope 08/17/2020 M70.62 Trochanteric bursitis, left hip RADHA Pope Plan of Treatment Future Appointment(s):* 12/20/2020 10:30 am - Vin Summers, PT, DPT at Physical Therapy * 01/07/2021 10:45 am - Tenzin Luciano PA-C at [place] Functional Status Description No Information Available Mental Status Description No Information Available Referrals Refer to Dr Reason for Referral Status Appt Date Tenzin Luciano PA-C CT RT KNEE With and Without Contrast per medicare no auth req based on medical necessity, per Karol Chau at [facility] no auth req as this is a supplemental plan, ref [id number],passed to [facility] to schedule sw. Created [address] [place] [address] [phone] [address]enzin Luciano PA-C CT RT KNEE With and Without Contrast per medicare no auth req based on medical necessity, per Karol Chau at [facility] no auth req as this is a supplemental plan, ref [id number],passed to [facility] to schedule sw. Created [address] [place] [address] [phone] Fam Short RPT NO AUTH REQUIRED. FOLLOWS R GUIDELINES. REF #[id number]. HW Created [address] [place] [address] [phone] Herrera Grant I, [facility] Mark Hips no auth req based on medical necessity patient is going to [facility] passed to PT Dept sw. Created [address] [place] [id number] [phone]
--- OUTSIDE RECORDS SUMMARY | 2021-01-22 21:22 | CCD | Continuity of Care Document ---
Author Author Lianne POWER [facility] Organization Unknown Address [address] [address] Phone [phone] Care Team Providers Care Soda Flaker Name Role Phone Bill Tapia MD [facility] [phone] Problems Description No Active Problems Social History [...] H/L Range Note CBC With Differential 12/07/2020 [facility] [address] [place] [address] (315)- - White Blood Count 8.1 10 [...] 36.0-66.0 Lymph % 24.9 % Normal 24.0-44.0 [place] % 6.8 % Normal 2.0-8.0 Eos % 0.5 % Normal 0.0-3.0 Baso % 0.7 % Normal 0.0-1.0 Immature Granulocyte % 0.5 % Normal 0-3.0 Nucleated Red Blood Cell % 0.0 % Normal 0-0 Neutrophils # 5.4 10 Normal 1.5-8.5 Lymph # 2.0 10 Normal 1.5-5.0 [place] # 0.6 10 Normal 0.0-0.8 Eos # 0.0 10 Normal 0.0-0.5 Baso # 0.1 10 Normal 0.0-0.2 Laboratory test finding 12/07/2020 [facility] [address] [place] [address] (315)- - Erythrocyte Sedimentation Rate 24 mm/hr Normal 0-30 C Reactive Protein Quantitativ 0.95 mg/dL High 0.00-0.30 CBC With Differential 11/23/[address] [address] (315)- - White Blood Count 10.5 10 [...] 36.0-66.0 Lymph % 22.5 % Low 24.0-44.0 [place] % 7.2 % Normal 2.0-8.0 Eos % 0.4 % Normal 0.0-3.0 Baso % 0.8 % Normal 0.0-1.0 Immature Granulocyte % 0.4 % Normal 0-3.0 Nucleated Red Blood Cell % 0.0 % Normal 0-0 Neutrophils # 7.2 10 Normal 1.5-8.5 Lymph # 2.4 10 Normal 1.5-5.0 [place] # 0.8 10 Normal 0.0-0.8 Eos # 0.0 10 Normal 0.0-0.5 Baso # 0.1 10 Normal 0.0-0.2 Laboratory test finding 11/23/2020 [facility] [address] [place] [address] (824)- - Erythrocyte Sedimentation Rate 27 mm/hr Normal 0-30 C Reactive Protein Quantitativ 0.94 mg/dL High 0.00-0.30 Procedures Date Code Description Status 12/23/2020 52979 Therapeutic Procedure, Each 15 M inutes Completed 12/23/2020 97666 Manual Therapy Each 15 Minutes C ompleted 12/20/2020 27522 Physical Therapy Eval - Low Comp lexity Completed 12/07/2020 01971 Office/Outpatient Established Mo d MDM 30-39 Min Completed 12/02/2020 81083 Phone Evaluation/Management By Sue marquez 5-10 Mins Completed 11/23/2020 57075 Office/Outpatient Established Lo w MDM 20-29 Min Completed 11/11/2020 25916 Office/Outpatient Established Mo d MDM 30-39 Min Completed 11/11/2020 33407 X-Ray Knee Complete W/Obliques & Tunnel And/Or Standing Views Completed 11/04/2020 13896 Office/Outpatient Established Lo w MDM 20-29 Min Completed 10/29/2020 14564 Therapeutic Procedure, Each 15 M inutes Completed 10/27/2020 49264 Therapeutic Procedure, Each 15 M inutes Completed 10/22/2020 04956 Therapeutic Procedure, Each 15 M inutes Completed 10/19/2020 50172 Therapeutic Procedure, Each 15 M inutes Completed 10/15/2020 76857 Therapeutic Procedure, Each 15 M inutes Completed 10/12/2020 37354 Therapeutic Procedure, Each 15 M inutes Completed 10/08/2020 57476 Therapeutic Procedure, Each 15 M inutes Completed 10/05/2020 74067 Manual Therapy Each 15 Minutes C ompleted 10/05/2020 67197 Therapeutic Procedure, Each 15 M inutes Completed 09/29/2020 59642 Inject/Drain Joint/Bursa Major C ompleted 09/29/2020 12981 Therapeutic Procedure, Each 15 M inutes Completed 09/29/2020 67019 Office/Outpatient Established Lo w MDM 20-29 Min Completed 09/29/2020 85567 Manual Therapy Each 15 Minutes C ompleted 09/27/2020 87623 Therapeutic Procedure, Each 15 M inutes Completed 09/24/2020 47477 Therapeutic Procedure, Each 15 M inutes Completed 09/22/2020 55525 Therapeutic Procedure, Each 15 M inutes Completed 09/16/2020 20314 Manual Therapy Each 15 Minutes C ompleted 09/16/2020 94406 Therapeutic Procedure, Each 15 M inutes Completed 09/13/2020 39737 Manual Therapy Each 15 Minutes C ompleted 09/13/2020 17693 Therapeutic Procedure, Each 15 M inutes Completed 09/10/2020 62727 Therapeutic Procedure, Each 15 M inutes Completed 09/10/2020 78050 Manual Therapy Each 15 Minutes C ompleted 09/06/2020 14441 Manual Therapy Each 15 Minutes C ompleted 09/06/2020 65009 Therapeutic Procedure, Each 15 M inutes Completed 09/03/2020 91299 Manual Therapy Each 15 Minutes C ompleted 09/03/2020 17023 Therapeutic Procedure, Each 15 M inutes Completed 09/01/2020 30594 Manual Therapy Each 15 Minutes C ompleted 09/01/2020 91327 Therapeutic Procedure, Each 15 M inutes Completed 08/26/2020 94515 Physical Therapy Eval - Low Comp lexity Completed 08/17/2020 65805 Office/Outpatient Established Lo w MDM 20-29 Min Completed 08/17/2020 75698 X-Ray Hips Bilateral With Pelvis 3-4 Views Completed Medical Devices Description No Information Available Encounters Type Date Location Provider Dx Diagnosis Office Visit 12/07/2020 9:30a [place] PA-C S8 0.01xD Contusion of right knee, subsequent encounter L03.115 Cellulitis of right lower li mb M70.62 Trochanteric bursitis, left hip M70.61 Trochanteric bursitis, right hip Office Visit 12/02/2020 1:[place]p [place] [place] M70.62 Trochanteric bursitis, left hip M70.61 Trochanteric bursitis, right hip Office Visit 11/23/2020 11:15a [place] Agu[place] PA-C S80.01x D Contusion of right knee, subsequent encounter L03.115 Cellulitis of right lower li mb Office Visit 11/11/2020 2:40p [place] Tenzin Martin PA-C L0 3.115 Cellulitis of right lower limb M79.661 Pain in right lower leg Office Visit 11/04/2020 2:00p [place] Benav[place], P.ADiane S80.01xA Contusion of right knee, initial encounter S60.212A Contusion of left wrist, ini tial encounter S60.211A Contusion of right wrist, in itial encounter Office Visit 09/29/2020 11:00a [place] Ol[place] M16.0 Bilateral primary osteoarthritis of hip M70.61 Trochanteric bursitis, right hip M70.62 Trochanteric bursitis, left hip M25.562 Pain in left knee Office Visit 08/17/2020 2:30p [place] Ol[place] M16.0 Bilateral primary osteoarthritis of hip M70.61 Trochanteric bursitis, right hip M70.62 Trochanteric bursitis, left hip Assessments Date Code Description Provider 12/23/2020 S80.01xD Contusion of right knee, subsequ [...] 12/07/2020 M70.62 Trochanteric bursitis, left hip Tenzin Martin, REGINO 12/07/2020 M70.61 Trochanteric bursitis, right hip Tenzin Martin, REGINO 12/02/2020 M70.62 Trochanteric bursitis, left [...] of right wrist, initia l encounter Thomas Saab Mcelheran, P.A. 10/29/2020 M16.0 Bilateral primary osteoarthritis of hip Latonya Luci Power, [employer]ER 10/29/2020 M70.61 Trochanteric bursitis, right hip Latonya Luci Power, [employer]URE [employer]ER 10/29/2020 M70.62 Trochanteric bursitis, left hip Latonya Luci Power, [employer]ER 10/27/2020 M16.0 Bilateral primary osteoarthritis of hip Latonya Luci Power, [employer]URE [employer]ER 10/27/2020 M70.61 Trochanteric bursitis, right hip Latonya Luci Power, [employer]URE [employer]ER 10/27/2020 M70.62 Trochanteric bursitis, left hip Latonya Luci Power, [employer]URE POL[employer]ER 10/22/2020 M16.0 Bilateral primary osteoarthritis of hip Latonya Luci Power, [employer]URE [employer]ER 10/22/2020 M70.61 Trochanteric bursitis, right hip Latonya Luci Power, S[employer]URE POLISHER 10/22/2020 M70.62 Trochanteric bursitis, left hip Latonya Luci Power, [employer]URE POL[employer]ER 10/19/2020 M16.0 Bilateral primary osteoarthritis of hip Latonya Luci Power, [employer]URE [employer]ER 10/19/2020 M70.61 Trochanteric bursitis, right hip Latonya Luci Power, SUTURE POLISHER 10/19/2020 M70.62 Trochanteric bursitis, left hip Latonya Luci Power, S[employer]URE [employer]ISHER 10/15/2020 M16.0 Bilateral primary osteoarthritis of hip Latonya Luci Power, [employer]URE [employer]ER 10/15/2020 M70.61 Trochanteric bursitis, right hip Latonya Luci Power, SUTURE POLISHER 10/15/2020 M70.62 Trochanteric bursitis, left hip Latonya Luci Power, [employer]UTURE POLISHER 10/12/2020 M16.0 Bilateral primary osteoarthritis of hip Latonya Luci Power, [employer]UTURE POLISHER 10/12/2020 M70.61 Trochanteric bursitis, right hip Altonya Luci Power, [employer]URE POLISHER 10/12/2020 M70.62 Trochanteric bursitis, left hip Latonya Luci Power, [employer]URE [employer]ER 10/08/2020 M16.0 Bilateral primary osteoarthritis of hip Latonya Luci Power, [employer]URE POLISHER 10/08/2020 M70.61 Trochanteric bursitis, right hip Latonya Luci Power, [employer]URE POLISHER 10/08/2020 M70.62 Trochanteric bursitis, left hip Latonya Luci Power, [employer]URE POL[employer]ER 10/05/2020 M16.0 Bilateral primary osteoarthritis of hip Fam J. Cook P.T. 10/05/2020 M70.61 Trochanteric bursitis, right hip Fam J. Cook P.T. 10/05/2020 M70.62 Trochanteric bursitis, left hip Fam Deven. Cook P.T. 09/29/2020 M16.0 Bilateral primary osteoarthritis of hip Latonya Luci Power, [employer]ER 09/29/2020 M16.0 Bilateral primary osteoarthritis of hip Herrera CappsDiane Grant, PA 09/29/2020 M70.61 Trochanteric bursitis, right hip Herrera Rosanna Grant, PA 09/29/2020 M70.61 Trochanteric bursitis, right hip Latonya Power, [employer]ER 09/29/2020 M70.62 Trochanteric bursitis, left hip Herrera IDiane Grant, PA 09/29/2020 M25.562 Pain in left knee Herrera Grant , PA 09/29/2020 M70.62 Trochanteric bursitis, left hip Latonya Power, [employer]ER 09/27/2020 M16.0 Bilateral primary osteoarthritis of hip [...] M70.61 Trochanteric bursitis, right hip Fam J. Han P.T. 09/22/2020 M70.62 Trochanteric bursitis, left hip Fam Mccormack Han P.T. 09/16/2020 M16.0 Bilateral primary osteoarthritis of hip Latonya Luci Power, [employer]URE POL[employer]ER 09/16/2020 M70.61 Trochanteric bursitis, right hip Latonya Luci Power, S[employer]URE POLISHER 09/16/2020 M70.62 Trochanteric bursitis, left hip Latonya Luci Power, [employer]URE POLISHER 09/13/2020 M16.0 Bilateral primary osteoarthritis of hip Latonya Luci Power, [employer]URE POLISHER 09/13/2020 M70.61 Trochanteric bursitis, right hip Latonya Luci Power, S[employer]URE POLISHER 09/13/2020 M70.62 Trochanteric bursitis, left hip Latonya Luci Power, [employer]URE POLISHER 09/10/2020 M16.0 Bilateral primary osteoarthritis of hip Latonya Luci Power, [employer]URE POLISHER 09/10/2020 M70.61 Trochanteric bursitis, right hip Latonya Luci Power, SUTURE POLISHER 09/10/2020 M70.62 Trochanteric bursitis, left hip Latonya Luci Power, SUTURE POLISHER 09/06/2020 M16.0 Bilateral primary osteoarthritis of hip Latonya Luci Power, S[employer]URE POLISHER 09/06/2020 M70.61 Trochanteric bursitis, right hip Latonya Luci Power, SUTURE POLISHER 09/06/2020 M70.62 Trochanteric bursitis, left hip Latonya Luci Power, SUTURE POLISHER 09/03/2020 M16.0 Bilateral primary osteoarthritis of hip Latonya Luci Power, SUTURE POLISHER 09/03/2020 M70.61 Trochanteric bursitis, right hip Latonya Luci Power, SUTURE POLISHER 09/03/2020 M70.62 Trochanteric bursitis, left hip Latonya Luci Power, S[employer]URE POLISHER 09/01/2020 M16.0 Bilateral primary osteoarthritis of hip Latonya Luci Power, SUTURE POLISHER 09/01/2020 M70.61 Trochanteric bursitis, right hip Latonya Luci Power, SUTURE POLISHER 09/01/2020 M70.62 Trochanteric bursitis, left hip Latonya Luci Power, SUTURE POLISHER 08/26/2020 M16.0 Bilateral primary osteoarthritis of hip Fam Mccormack Han P.T. 08/26/2020 M70.61 Trochanteric bursitis, right hip Fam Mccormack Han P.T. 08/26/2020 M70.62 Trochanteric bursitis, left hip Fam Mccormack Han P.T. 08/17/2020 M16.0 Bilateral primary osteoarthritis of hip RADHA Pope 08/17/2020 M70.61 Trochanteric bursitis, right hip Herrera IDiane Grant PA 08/17/2020 M70.62 Trochanteric bursitis, left hip Herrera IRADHA Ochoa Plan of Treatment Future Appointment(s):* 01/07/2021 11:30 am - Vin Summers, PT, DPT at Physical Therapy * 01/03/2021 11:00 am - Latonya Power, SUTURE POLISHER at Physical Therapy * 12/30/2020 11:00 am - Latonya Power PTA at Physical Therapy * 01/07/2021 10:45 am - Tenzin Martin PA-C at [place] Functional Status Description No Information Available Mental Status Description No Information Available Referrals Refer to Dr Reason for Referral Status Appt Date Tenzin Martin PA-C CT RT KNEE With and Without Contrast per medicare no auth req based on medical necessity, per Karol Chau at [facility] no auth req as this is a supplemental plan, ref [id number],passed to [facility] to schedule sw. Created [facility] [place] [address] [phone] [address]enzin Martin PA-C CT RT KNEE With and Without Contrast per medicare no auth req based on medical necessity, per Karol Chau at [facility] no auth req as this is a supplemental plan, ref [id number],passed to [facility] to schedule sw. Created [facility] [place] [address] [phone] Fam Short RPT NO AUTH REQUIRED. FOLLOWS R GUIDELINES. REF #[id number]. HW Created [address] [place] [address] [phone] Herrera Grant I, Pac [facility] Mark Hips no auth req based on medical necessity patient is going to [facility] passed to PT Dept sw. Created [address] [facility] [address] [place] [address] [phone]
--- OUTSIDE RECORDS SUMMARY | 2021-01-22 21:25 | CCD ---
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 Name Role Phone Laci Sayda [facility], PA-C Unavailable Unavailabl e Fish, Sayda [facility], PA-C Unavailable Unavailabl e Fish, Sayda [facility], PA-C Unavailable Unavailabl e Fish, Sayda [facility], PA-C Unavailable Unavailabl e Fish, Sayda [facility], PA-C Unavailable Unavailabl e Fish, Sayda [facility], PA-C Unavailable Unavailabl e Fish, Sayda [facility], PA-C Unavailable Unavailabl e Fish, Sayda [facility], PA-C Unavailable Unavailabl e Fish, Sayda [facility], PA-C Unavailable Unavailabl e Fish, Sayda [facility], PA-C Unavailable Unavailabl e Fish, Sayda [facility], PA-C Unavailable Unavailabl e Fish, Sayda [facility], PA-C Unavailable Unavailabl e Fish, Sayda [facility], PA-C Unavailable Unavailabl e Fish, Sayda [facility], PA-C Unavailable Unavailabl e Fish, Sayda [facility], PA-C Unavailable Unavailabl e Fish, Sayda Vivienne [facility], PA-C Unavailable Unavailabl e Fish, [facility], PA-C Unavailable Unavailabl e Fish, [facility], PA-C Unavailable Unavailabl e Fish, [facility], PA-C Unavailable Unavailabl e Fish, [facility], PA-C Unavailable Unavailabl e Fish, [facility], PA-C Unavailable Unavailabl e Fish, [facility], PA-C Unavailable Unavailabl e Fish, [facility], PA-C Unavailable Unavailabl e Fish, [facility], PA-C Unavailable Unavailabl e Fish, [facility], PA-C Unavailable Unavailabl e Fish, [facility], PA-C Unavailable Unavailabl e Fish, [facility], PA-C Unavailable Unavailabl e Fish, [facility], PA-C Unavailable Unavailabl e Fish, [facility], PA-C Unavailable Unavailabl e Fish, [facility], PA-C Unavailable Unavailabl e Fish, [facility], PA-C Unavailable Unavailabl e Fish, [facility], PA-C Unavailable Unavailabl e Fish, [facility], PA-C Unavailable Unavailabl e Fish, [facility], PA-C Unavailable Unavailabl e Fish, [facility], PA-C Unavailable Unavailabl e Fish, [facility], PA-C Unavailable Unavailabl e JOHN PHILLIPS [...] J Ragini PA Unavailable Unavailable Trickey, J Raigni PA Unavailable Unavailable Trickey, J Ragini PA [...] BHUPENDRA PA Unavailable Unavailable Jumalon, M Razia DIE CASTER Unavailable Unavailable Jumalon, M Razia DIE CASTER Unavailable Unavailable Jumalon, M Razia DIE CASTER Unavailable Unavailable Jumalon, M Razia DIE CASTER Unavailable Unavailable Jumalon, M Razia DIE CASTER Unavailable Unavailable Jumalon, M Razia DIE CASTER Unavailable Unavailable Jumalon, M Razia DIE CASTER Unavailable Unavailable Jumalon, M Razia DIE CASTER Unavailable Unavailable Jumalon, M Razia DIE CASTER Unavailable Unavailable Jumalon, M Razia DIE CASTER Unavailable Unavailable Jumalon, M Razia DIE CASTER Unavailable Unavailable Jumalon, M Razia DIE CASTER Unavailable Unavailable Jumalon, M Razia DIE CASTER Unavailable Unavailable Jumalon, M Razia DIE CASTER Unavailable Unavailable Jumalon, M Razia DIE CASTER Unavailable Unavailable Jumalon, M Razia DIE CASTER Unavailable Unavailable Jumalon, M Razia DIE CASTER Unavailable Unavailable Jumalon, M Razia DIE CASTER Unavailable Unavailable Jumalon, M Razia DIE CASTER Unavailable Unavailable Jumalon, M Razia DIE CASTER Unavailable Unavailable Jumalon, M Razia DIE CASTER Unavailable Unavailable Jumalon, M Razia DIE CASTER Unavailable Unavailable Jumalon, M Raiza DIE CASTER Unavailable Unavailable Jumalon, M Razia DIE CASTER Unavailable Unavailable Jumalon, M Razia DIE CASTER Unavailable Unavailable Jumalon, M Razia DIE CASTER Unavailable Unavailable Jumalon, M Razia DIE CASTER Unavailable Unavailable Jumalon, M Razia DIE CASTER Unavailable Unavailable Jumalon, M Razia DIE CASTER Unavailable Unavailable Jumalon, M Razia DIE CASTER Unavailable Unavailable Rena Larsen, Kandi Deleon MD, [...] MD, FACS Unavailable Unavailable Chase Larsen, Kandi eDleon MD, FACS Unavailable Unavailable Chase Larsen, Kandi [...] Larsen, Kandi Deleon MD, FACS Unavailable Unavailable Hcase Larsen, Kandi Deleon MD, FACS Unavailable Unavailable Chase Larsen, Kandi Deleon MD, FACS Unavailable Unavailable Chase Larsen, Kandi Deleon MD, FACS Unavailable Unavailable Chase Larsen, Kandi Deleon MD, FACS Unavailable Unavailable Chase Larsen, Kandi Deleon MD, FACS Unavailable Unavailable Chase Larsen, Kandi Deleon MD, FACS Unavailable Unavailable LePine, M Tracey HEALTH CONSULTANT Unavailable Unavailable LePine, M Tracey HEALTH CONSULTANT Unavailable Unavailable LePine, M Tracey HEALTH CONSULTANT Unavailable Unavailable LePine, M Tracey HEALTH CONSULTANT Unavailable Unavailable LePine, M Tracey HEALTH CONSULTANT Unavailable Unavailable LePine, M Tracey HEALTH CONSULTANT Unavailable Unavailable LePine, M Tracey HEALTH CONSULTANT Unavailable Unavailable LePine, M Tracey HEALTH CONSULTANT Unavailable Unavailable LePine, M Tracey HEALTH CONSULTANT Unavailable Unavailable LePine, M Tracey HEALTH CONSULTANT Unavailable Unavailable LePine, M Tracey HEALTH CONSULTANT Unavailable Unavailable LePine, M Tracey HEALTH CONSULTANT Unavailable Unavailable LePine, M Tracey HEALTH CONSULTANT Unavailable Unavailable LePine, M Tracey HEALTH CONSULTANT Unavailable Unavailable LePine, M Tracey HEALTH CONSULTANT Unavailable Unavailable LePine, M Tracey HEALTH CONSULTANT Unavailable Unavailable LePine, M Tracey HEALTH CONSULTANT Unavailable Unavailable LePine, M Tracey HEALTH CONSULTANT Unavailable Unavailable LePine, M Tracey HEALTH CONSULTANT Unavailable Unavailable LePine, M Tracey HEALTH CONSULTANT Unavailable Unavailable LePine, M Tracey HEALTH CONSULTANT Unavailable Unavailable LePine, M Tracey HEALTH CONSULTANT Unavailable Unavailable LePine, M Tracey HEALTH CONSULTANT Unavailable Unavailable LePine, M Tracey HEALTH CONSULTANT Unavailable Unavailable LePine, M Tracey HEALTH CONSULTANT Unavailable Unavailable LePine, M Tracey HEALTH CONSULTANT Unavailable Unavailable LePine, M Tracey HEALTH CONSULTANT Unavailable Unavailable LePine, M Tracey HEALTH CONSULTANT Unavailable Unavailable LePine, M Tracey HEALTH CONSULTANT Unavailable Unavailable LePine, M Tracey HEALTH CONSULTANT Unavailable Unavailable LePine, M Tracey HEALTH CONSULTANT Unavailable Unavailable LePine, M Tracey HEALTH CONSULTANT Unavailable Unavailable LePine, M Tracey HEALTH CONSULTANT Unavailable Unavailable LePine, M Tracey HEALTH CONSULTANT Unavailable Unavailable LePine, M Tracey HEALTH CONSULTANT Unavailable Unavailable LePine, M Tracey HEALTH CONSULTANT Unavailable Unavailable LePine, M Tracey HEALTH CONSULTANT Unavailable Unavailable LePine, M Tracey HEALTH CONSULTANT Unavailable Unavailable LePine, M Tracey HEALTH CONSULTANT Unavailable Unavailable LePine, M Tracey HEALTH CONSULTANT Unavailable Unavailable LePine, M Tracey HEALTH CONSULTANT Unavailable Unavailable LePine, M Tracey HEALTH CONSULTANT Unavailable Unavailable LePine, M Tracey HEALTH CONSULTANT Unavailable Unavailable LePine, M Tracey HEALTH CONSULTANT Unavailable Unavailable LePine, M Tracey HEALTH CONSULTANT Unavailable Unavailable LePine, M Tracey HEALTH CONSULTANT Unavailable Unavailable LePine, M Tracey HEALTH CONSULTANT Unavailable Unavailable LePine, M Tracey HEALTH CONSULTANT Unavailable Unavailable LePine, M Tracey HEALTH CONSULTANT Unavailable Unavailable LePine, M Tracey HEALTH CONSULTANT Unavailable Unavailable LePine, M Tracey HEALTH CONSULTANT Unavailable Unavailable LePine, M Tracey HEALTH CONSULTANT Unavailable Unavailable LePine, M Tracey HEALTH CONSULTANT Unavailable Unavailable LePine, M Tracey HEALTH CONSULTANT Unavailable Unavailable LePine, M Tracey HEALTH CONSULTANT Unavailable Unavailable LePine, M Tracey HEALTH CONSULTANT Unavailable Unavailable LePine, M Tracey HEALTH CONSULTANT Unavailable Unavailable Jamshid Tapia MD Unavailable Unavailable [...] Unavailable Unavailable Jamshid Tapia MD Unavailable Unavailable LETTIERE, A RUBÉN PA Unavailable Unavailable LETTIERE, A RUBÉN PA Unavailable Unavailable LETTIERE, A RUBÉN PA Unavailable Unavailable LETTIERE, A RUBÉN PA Unavailable Unavailable LETTIERE, A RUBÉN PA Unavailable Unavailable LETTIERE, A RUBÉN PA Unavailable Unavailable LETTIERE, A RUBÉN PA Unavailable Unavailable LETTIERE, A RUBÉN PA Unavailable Unavailable LETTIERE, A RUBÉN PA Unavailable Unavailable LETTIERE, A RUBÉN PA Unavailable Unavailable LETTIERE, A RUBÉN PA Unavailable Unavailable LETTIERE, A RUBÉN PA Unavailable Unavailable LETTIERE, A RUBÉN PA Unavailable Unavailable LETTIERE, A RUBÉN PA Unavailable Unavailable LETTIERE, A RUBÉN PA Unavailable Unavailable LETTIERE, A RUBÉN PA Unavailable Unavailable LETTIERE, A RUBÉN PA Unavailable Unavailable LETTIERE, A RUBÉN PA Unavailable Unavailable LETTIERE, A RUBÉN PA Unavailable Unavailable LETTIERE, A RUBÉN PA Unavailable Unavailable LETTIERE, A RUBÉN PA Unavailable Unavailable LETTIERE, A RUBÉN PA Unavailable Unavailable LETTIERE, A RUBÉN PA Unavailable Unavailable LETTIERE, A RUBÉN PA Unavailable Unavailable LETTIERE, A RUBÉN PA Unavailable Unavailable LETTIERE, A RUBÉN PA Unavailable Unavailable LETTIERE, A RUBÉN PA Unavailable Unavailable LETTIERE, A RUBÉN PA Unavailable Unavailable LETTIERE, A RUBÉN PA Unavailable Unavailable LETTIERE, A RUBÉN PA Unavailable Unavailable LETTIERE, A RUBÉN PA Unavailable Unavailable MCELHERAN, RUBÉN PA [...] Unavailable Unavailable Jamshid Tapia MD Unavailable Unavailable White F Bill LOPEZ Unavailable Unavailable White F Billkimberley LOPEZ Unavailable Unavailable White, F Bill Unavailable Unavailable White F Bill Unavailable Unavailable White F Billkimberley LOPEZ Unavailable Unavailable White F Bill Unavailable Unavailable White F Billkimberley LOPEZ Unavailable Unavailable White F Bill Unavailable Unavailable White, F Bill Unavailable Unavailable White, F Bill Unavailable Unavailable White, F Bill Unavailable Unavailable White F Bill Unavailable Unavailable White F Bill Unavailable Unavailable White, F Bill Unavailable Unavailable White, F Bill Unavailable Unavailable White, F Bill Unavailable Unavailable White, F Bill Unavailable Unavailable White, F Bill Unavailable Unavailable White, F Bill Unavailable Unavailable White, F Bill Unavailable Unavailable White, F Bill Unavailable Unavailable White F Bill Unavailable Unavailable White F Bill LOPEZ Unavailable Unavailable White F Bill LPOEZ Unavailable Unavailable White F Bill LOPEZ Unavailable [...] Unavailable White F Bill LOPEZ Unavailable Unavailable Regnia F Bill LOPEZ Unavailable Unavailable Regina F Bill LOPEZ Unavailable Unavailable Regina F Bill LOPEZ Unavailable Unavailable Regina F Bill LOPEZ Unavailable Unavailable Regina F Bill LOPEZ Unavailable Unavailable Regina F Bill LOPEZ Unavailable Unavailable Jamshid Tapia MD Unavailable Unavailable White, F Bill MD Unavailable Unavailable Jamshid Tapia MD Unavailable [...] PICKERAL JR, J MARLENE PA-C Unavailable Unavailable Pierre, D Apple DIE CASTER-C Unavailable Unavailable Pierre, D Apple DIE CASTER-C Unavailable Unavailable Pierre, D Apple DIE CASTER-C Unavailable Unavailable Pierre, D Apple DIE CASTER-C Unavailable Unavailable Pierre, D Apple DIE CASTER-C Unavailable Unavailable Pierre, D Apple DIE CASTER-C Unavailable Unavailable Pierre, D Apple DIE CASTER-C Unavailable Unavailable Shayy Reyes MD Unavailable Unavailable [...] Unavailable Unavailable Shayy Reyes MD Unavailable Unavailable DRAZEK, I KENA PA Unavailable [...] KENA PA Unavailable Unavailable Fons, M Tracey DIE CASTER Unavailable Unavailable Fons, M Tracey DIE CASTER Unavailable Unavailable Fons, M Tracey DIE CASTER Unavailable Unavailable Fons, M Tracey DIE CASTER Unavailable Unavailable Fons, M Tracey DIE CASTER Unavailable Unavailable Fons, M Tracey DIE CASTER Unavailable Unavailable Fons, M Tracey DIE CASTER Unavailable Unavailable Fons, M Tracey DIE CASTER Unavailable Unavailable Fons, M Tracey DIE CASTER Unavailable Unavailable Fons, M Tracey DIE CASTER Unavailable Unavailable Fons, M Tracey DIE CASTER Unavailable Unavailable Fons, M Tracey DIE CASTER Unavailable Unavailable Fons, M Tracey DIE CASTER Unavailable Unavailable Fons, M Tracey DIE CASTER Unavailable Unavailable Fons, M Tracey DIE CASTER Unavailable Unavailable Fons, M Tracey DIE CASTER Unavailable Unavailable Fons, M Tracey DIE CASTER Unavailable Unavailable Fons, M Tracey DIE CASTER Unavailable Unavailable Fons, M Tracey DIE CASTER Unavailable Unavailable Fons, M Tracey DIE CASTER Unavailable Unavailable Fons, M Tracey DIE CASTER Unavailable Unavailable Fons, M Tracey DIE CASTER Unavailable Unavailable Fons, M Tracey DIE CASTER Unavailable Unavailable Fons, M Tracey DIE CASTER Unavailable Unavailable Fons, M Tracey DIE CASTER Unavailable Unavailable Fons, M Tracey DIE CASTER Unavailable Unavailable Fons, M Tracey DIE CASTER Unavailable Unavailable Fons, M Tracey DIE CASTER Unavailable Unavailable Fons, M Tracey DIE CASTER Unavailable Unavailable Fons, M Tracey DIE CASTER Unavailable Unavailable Fons, M Tracey DIE CASTER Unavailable Unavailable Fons, M Tracey DIE CASTER Unavailable Unavailable Fons, M Tracey DIE CASTER Unavailable Unavailable Fons, M Tracey DIE CASTER Unavailable Unavailable Fons, M Tracey DIE CASTER Unavailable Unavailable Fons, M Tracey DIE CASTER Unavailable Unavailable Fons, M Tracey DIE CASTER Unavailable Unavailable Fons, M Tracey DIE CASTER Unavailable Unavailable Fons, M Tracey DIE CASTER Unavailable Unavailable Fons, M Tracey DIE CASTER Unavailable Unavailable Fons, M Tracey DIE CASTER Unavailable Unavailable Fons, M Tracey DIE CASTER Unavailable Unavailable Fons, M Tracey DIE CASTER Unavailable Unavailable Fons, M Tracey DIE CASTER Unavailable Unavailable Fons, M Tracey DIE CASTER Unavailable Unavailable Fons, M Tracey DIE CASTER Unavailable Unavailable Fons, M Tracey DIE CASTER Unavailable Unavailable Fons, M Tracey DIE CASTER Unavailable Unavailable Fons, M Tracey DIE CASTER Unavailable Unavailable Fons, M Tracey DIE CASTER Unavailable Unavailable Fons, M Tracey DIE CASTER Unavailable Unavailable Fons, M Tracey DIE CASTER Unavailable Unavailable Fons, M Tracey DIE CASTER Unavailable Unavailable Bibb, V JIA PA-C Unavailable Unavailable Nancy, V JIA PA-C Unavailable Unavailable Nancy, V JIA PA-C Unavailable Unavailable Bibb, V JIA PA-C Unavailable Unavailable Bibb, V JIA PA-C Unavailable Unavailable Bibb, V JIA PA-C Unavailable Unavailable Bibb, V JIA PA-C Unavailable Unavailable Bibb, V JIA PA-C Unavailable Unavailable Bibb, V JIA PA-C Unavailable Unavailable Nancy, V JIA PA-C Unavailable Unavailable Bibb, V JIA PA-C Unavailable Unavailable Bibb, V JIA PA-C Unavailable Unavailable Bibb, V JIA PA-C Unavailable Unavailable Nancy, V [...] Unavailable Deven Farnsworth JR, MD Unavailable Unavailable Re-disclosure Warning The records [...] is protected by Article 27-F of the [facility] Public Health law. If you continue you may have access to information: Regarding HIV / AIDS; Provided by facilities licensed or operated by the [facility] Office of Mental Health; or Provided by the [facility] Office for People With Developmental Disabilities. If such information is present, then the following [facility] mandated warning applies: This information [...] may result in a fine or senior living sentence or both. A general authorization for the release of medical or other information is NOT sufficient authorization for further disc losure. Allergies and Adverse Reactions Type Description Substance Reaction Status Data Source(s ) Propensity to adverse reactions MORPHINE Morphine Acti ve [facility] Propensity to adverse reactions ADHESIVE TAPE Adhesive Tape Rash Low Active [facility] Low Family History Family Member Name Family Member Gender Family Member Status Date o f Status Description Data Source(s) Unknown Unknown Problem MEDENT ([facility]) brothers in 40's with [place] and survived. Encounters Encounter Providers Location Date Indications Data Source(s ) Outpatient Attender: RUBÉN chance 01/07/2021 11:25:00 AM EST [facility] ([facility]) Razia Valenzuelaalma, CERTIFIED MEDICAL ASST: [address] [place] [address], Ph. Attender: Razia Hussein [facility] - [facility] - Main Office 12/31/2020 12:00:00 AM EST ATHE NA ([facility]) Razia Alcon Hussein, CERTIFIED MEDICAL ASST: [address], [place] [address], Ph. Attender: Razia Hussein [facility] - Main Office 12/31/2020 12:00:00 AM EST ATHE NA ([facility]) Outpatient Attender: Apple Pierre DIE CASTER-C Main Office 12/16/2020 02:30:00 PM EDT MED[facility] ([facility]) Outpatient Attender: Tenzin GARCIA Physical Therapy 09:30:00 AM EDT MED[facility] ([facility]) Office Visit Attender: KENA GARCIA Physical Therapy 2020 01:40:00 PM EDT [facility] ([facility]) Outpatient Attender: Ragini GARCIA Main office - [facility] 11/30/2020 01:45:00 PM EDT [facility] ([facility]) Outpatient Attender: JOHN PHILLIPS MD Main Office 11/26/2020 10:30:00 AM EDT [facility] ([facility]) OFFICE OUTPATIENT VISIT 15 MINUTES Attender: Vivienne PICKENS PA-C Physical Therapy 11/23/2020 11:15:00 AM EDT MED[facility] ([facility]) Razia Alcon Hussein, CERTIFIED MEDICAL ASST: [address], [address], [place] [address], Ph. Attender: Razia Hussein [facility] 11/19/2020 12:00:00 AM EDT ATHE NA ([facility]) Razia Hussein, CERTIFIED MEDICAL ASST: [address], [address], [place] [address], Ph. Attender: Razia Hussein [facility] 11/19/2020 12:00:00 AM EDT ATHE NA ([facility]) Razia Hussein, CERTIFIED MEDICAL ASST: [address], [place] [address], Ph. Attender: Razia Hussein [facility] 11/19/2020 12:00:00 AM EDT ATHE NA ([facility]) Outpatient Attender: MARLENE Escalante 0 11/12/2020 02:00:00 PM EDT MEDENT ([facility] ) Outpatient Attender: Tenzin GARCIA Physical Therapy 02:40:00 PM EDT MED[facility] ([facility]) Outpatient Attender: MARLENE Escalante 0 11/11/2020 01:40:00 PM EDT MEDENT ([facility] ) Outpatient Attender: MARLENE Escalante 0 11/10/2020 01:40:00 PM EDT MED[facility] ([facility] ) Outpatient Attender: BHUPENDRA scott 11/08/2020 01:50:00 PM EDT [facility] Outpatient [address] [facility] [address] 11/08/2020 12:00:00 AM EDT eCW1 ([facility]) OFFICE OUTPATIENT VISIT 15 MINUTES Attender: RUBÉN GARCIA Physical Therapy 11/04/2020 02:00:00 PM EDT MED[facility] ([facility]) Unknown [address] [facility] [id number] 11/04/2020 12:00:00 AM EDT eCW1 ([facility]) Outpatient Attender: MARLENE Escalante 0 11/01/2020 10:40:00 AM EDT MED[facility] ([facility] ) Unknown [address] [facility] [place] [address] 11/01/2020 12:00:00 AM EDT eCW1 ([facility]) Outpatient Attender: Bill Escalante 10/04 11:30:00 AM EDT [facility] ([facility] ) Outpatient [address] [facility] [place] [address] 09/30/2020 12:00:00 AM EDT eCW1 ([facility]) Unknown [address] [facility] [place] [address] 09/30/2020 12:00:00 AM EDT eCW1 ([facility]) OFFICE OUTPATIENT VISIT 15 MINUTES Attender: KENA GARCIA Phys ical Therapy 09/29/2020 11:00:00 AM EDT MED[facility] ([facility]) Outpatient Attender: Tracey BUCKLEY SJP.LEOPOLDO-SJP.LEOPOLDO 12:00:00 AM EDT - 09/28/2020 10:42:21 AM EDT [facility] Outpatient Attender: Ragini GARCIA Main office - [facility] 08/31/2020 10:00:00 AM EDT MED[facility] ([facility]) OFFICE OUTPATIENT VISIT 15 MINUTES Attender: KENA GARCIA Phys ical Therapy 08/17/2020 02:30:00 PM EDT [facility] ([facility]) Outpatient [address] [facility] [place] [address] 08/16/2020 12:00:00 AM EDT eCW1 ([facility]) (PN Proc 45) Pain Procedure 45 [address] [place] [address] 07/15/2020 12:00:00 AM EDT eCW1 ([facility]) Unknown [address] [facility], [facility] [address] 07/14/2020 12:00:00 AM EDT eCW1 ([facility]) Unknown [address] [facility], [facility] [address] 07/08/2020 12:00:00 AM EDT eCW1 ([facility]) Outpatient Attender: Tracey VASQUEZ-SJPDianeLEOPOLDO 11:10:28 AM EDT - 06/29/2020 12:17:52 PM EDT [facility] Outpatient Attender: Audra Gomes MDAdmitter: Audra us MD [email or web address] 06/22/2020 11:07:00 AM EDT - 06/22/2020 06:00:00 PM EDT [facility] Patient discharged. Unknown [address] [facility] [id number] 06/22/2020 12:00:00 AM EDT eCW1 ([facility]) Outpatient Attender: Tracey VASQUEZ-SJPDianeLEOPOLDO 06/17/2020 12:00:00 AM EDT [facility] Outpatient [address] [facility] [id number] 06/17/2020 12:00:00 AM EDT eCW1 ([facility]) Outpatient Attender: Tracey Araujo FNPReferrer: Tracey MYERS-SJPDianeLEOPOLDO 06/15/2020 10:50:41 AM EDT - 06/15/2020 12:24:30 PM EDT [facility] Outpatient Attender: Tracey Araujo FNPReferrer: Tracey MYERS-SJSue 06/15/2020 10:50:16 AM EDT - 06/15/2020 12:23:33 PM EDT [facility] Outpatient Attender: JOHN PHILLIPS MD Main Office 05/26/2020 10:30:00 AM EDT [facility] ([facility]) Outpatient Attender: Brant Zamarripa/Kasey/Amrit/Rein dl 05/24/2020 03:15:00 PM EDT MED[facility] ([facility]) Outpatient Attender: Ragini GARCIA Main office [facility] 05/24/2020 11:30:00 AM EDT MED[facility] ([facility]) Outpatient Attender: Bill Escalante 05/03 03:00:00 PM EDT MEDENT ([facility] ) Outpatient<td ID="encounterTypeDescripti [email or web address]">1 Year Follow-Up</td><td>Pancho Mayorga MD, FACS</td><td>Pancho Mayorga MD [facility]</td><td>04/27/2020</td><td>9:16AM</td><td>04/25/2019 11:59PM</td> <td><content ID="encounterDiagnosisID0-0">Essential Hypertension</content>, <content ID="encounterDiagnosisID0-1">Retinopathy Hypertensive</content>, <content ID="encounterDiagnosisID0-2">Conjunctivitis Chronic Allergic</content>, <content ID="encounterDiagnosisID0-3">Dry Eye Syndrome Both Eyes</content></td> Attender: Pancho Larsen MD, FACS Pancho Mayorga MD [facility] 04/27/2020 09:16:0 0 AM EST - 04/25/2019 11:59:00 PM EST Retinopathy HypertensiveDry Eye Syndrome Both EyesEssential HypertensionConjunctivitis Chronic Allergic ELLIOTT (Pancho Larsen MD [facility]) 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 Attender: Razia Hussein [facility] 03/09/2020 12:00:00 AM EST ATHE NA ([facility]) Razia Hussein, CERTIFIED MEDICAL ASST: [address], [place] [address], Ph. Attender: Razia Hussein [facility] 03/09/2020 12:00:00 AM EST ATHE NA ([facility]) [facility]ia [facility], CERTIFIED MEDICAL ASST: [address], [place] [address], Ph. Attender: Razia Hussein [facility] 03/09/2020 12:00:00 AM EST ATHE NA ([facility]) Razia Richardson [facility], CERTIFIED MEDICAL ASST: [address], [place] [address], Ph. Attender: Razia Hussein [facility] 03/09/2020 12:00:00 AM EST ATHE NA ([facility]) Outpatient Attender: Tarcey Escalante 03/05 02:00:00 PM EST MEDENT ([facility] ) Office Visit Attender: Ragini GARCIA [facility] 02/23/2020 09:45:00 AM EST MEDENT ([facility]) Outpatient Attender: Tracey BUCKLEY [email or web address] 01/29/2020 12:00:00 AM EST [facility] Outpatient Attender: Bill Escalante 01/27 10:30:00 AM EST MEDENT ([facility] ) Razia Rondon Jovita, CERTIFIED MEDICAL ASST: [address], [place] [address], Ph. Attender: Razia Hussein [facility] 01/26/2020 12:00:00 AM EST ATHE NA ([facility]) Razia Hussein, CERTIFIED MEDICAL ASST: [address], [place] [address], Ph. Attender: Razia Weatherssoo [facility] 01/26/2020 12:00:00 AM EST ATHE NA ([facility]) Razia Rondon Sarahysoo, CERTIFIED MEDICAL ASST: [address], [place] [address], Ph. Attender: Razia Hussein [facility] 01/26/2020 12:00:00 AM EST ATHE NA ([facility]) Razia Rondon Biancaalma, CERTIFIED MEDICAL ASST: [address], [place] [address], Ph. Attender: Razia Hussein [facility] 01/26/2020 12:00:00 AM EST ATHE NA ([facility]) Razia Hussein, CERTIFIED MEDICAL ASST: [address], [place] [address], Ph. Attender: Razia Jovita [facility] 01/26/2020 12:00:00 AM EST ATHE NA ([facility]) Outpatient Attender: Audra Gomes MDAdmitter: Audra us MD [id number] 01/21/2020 08:39:00 AM EST - 01/23/2020 03:40:00 PM EST [facility] Patient discharged. Outpatient Referrer: Shayy Reyes MD [email or web address] 12/20 12:00:00 AM EST - 01/07/2020 12:39:01 PM EST [facility] Outpatient Attender: Rboert Dela Cruz PAConsultant: Bill fisher MD 01/05/2020 11:25:00 AM EST - 01/05/2020 11:25:[address] [facility] Outpatient Attender: Shayy Reyes MD [email or web address] 12/20 12:00:00 AM EST - 12/30/2019 02:49:16 PM EST [facility] Outpatient Attender: JOHN PHILLIPS MD Main Office 12/29/2019 10:00:00 AM EST [facility] ([facility], CERTIFIED MEDICAL ASST: [address], [facility] [place] [address], Ph. Attender: Razia Weatherssoo [facility] Office 12/15/2019 12:00:00 AM EDT ATHE NA ([facility]) Razia Bryantgabrielle [facility], CERTIFIED MEDICAL ASST: [address], [place] [address], Ph. Attender: Razia Valenzuelaalma [facility] Office 12/15/2019 12:00:00 AM EDT ATHE NA ([facility]) Razia Mannylos angeleskimberley Jovita, CERTIFIED MEDICAL ASST: [address], [place] [address], Ph. Attender: Razia Hussein [facility] 12/15/2019 12:00:00 AM EDT ATHAmador NA ([facility]) Razia Hussein, CERTIFIED MEDICAL ASST: [address], [place] [address], Ph. Attender: Razia uHssein [facility] 12/15/2019 12:00:00 AM EDT ATHE NA ([facility]) Razia Hussein, CERTIFIED MEDICAL ASST: [address], [address], [place] [address], Ph. Attender: Razia Hussein [facility] 12/15/2019 12:00:00 AM EDT ATHAmador NA ([facility]) Razia Hussein, CERTIFIED MEDICAL ASST: [address], [place] [address], Ph. Attender: Razia Hussein [facility] 12/15/2019 12:00:00 AM EDT ATHAmador PEARSON ([facility]) Outpatient Attender: MARLENE Cee 11:00:00 AM EDT MEDENT ([facility] ) Immunizations Vaccine Date Status Description Data Source(s) COVID-19 VACCINE Pfizer 12/11/2020 12:00:00 AM EDT completed [facility] Vaccine Series Complete: YESThis Data wa s Submitted to [facility] [employer]. COVID-19 VACCINE Pfizer 04/17/2020 12:00:00 AM EST completed [facility] Vaccine Series Complete: YESThis Data wa s Submitted to [facility] [employer]. COVID-19 VACCINE Pfizer 03/27/2020 12:00:00 AM EST completed [facility] Vaccine Series Complete: NOThis Data was Submitted to [facility] [employer]. Pneumococcal conjugate PCV 13 11/24/2019 09:57:00 AM EDT completed MEDENT ([facility]) This CVX code allows reporting of a vacc ination when formulation is unknown (for example, when recording a Influenza vaccination when noted on a vaccination card) 11/24/2019 09:56:00 AM EDT completed MEDEN T ([facility]) Medications Medication Brand Name Start Date Product Form Dose Route Admi nistrative Instructions Pharmacy Instructions Status Indications Reaction Description Data Source(s) Amoxicillin 875 MG Oral Tablet Amoxicillin 01/07/2021 12:00:00 AM EST active MEDENT ([facility]) Cephalexin 500 MG Oral Tablet Cephalexin 11/08/2020 12:00:00 AM EDT ORAL completed MEDENT ([facility]) onabotulinumtoxinA 100 UNT/ML Injectable Solution [Bot ox] Botox 100 UNIT Botox 100 UNIT 11/01/2020 12:00:00 AM EDT active Botox 100 UNIT eCW1 ([facility]) onabotulinumtoxinA 100 UNT/ML Injectable Solution [Bot ox] Botox 100 UNIT Botox 100 UNIT 11/01/2020 12:00:00 AM EDT active Botox 100 UNIT eCW1 ([facility]) onabotulinumtoxinA 100 UNT/ML Injectable Solution [Bot ox] Botox 100 UNIT Botox 100 UNIT 11/01/2020 12:00:00 AM EDT active Botox 100 UNIT eCW1 ([facility]) Ciprofloxacin 500 MG Oral Tablet Ciprofloxacin HCL 10/21/2020 12:00 :00 AM EDT ORAL completed [facility] ([facility]) gabapentin 400 MG Oral Capsule Gabapentin 10/15/2020 12:00:00 AM EDT active Gabapentin [facility] ([facility]) Xray Right Foot 08/31/2020 12:00:00 AM EDT co mpleted MEDENT ([facility]) onabotulinumtoxinA 100 UNT/ML Injectable Solution [Bot ox] Botox 100 UNIT Botox 100 UNIT 07/08/2020 12:00:00 AM EDT active Botox 100 UNIT eCW1 ([facility]) onabotulinumtoxinA 100 UNT/ML Injectable Solution [Bot ox] Botox 100 UNIT Botox 100 UNIT 07/08/2020 12:00:00 AM EDT active Botox 100 UNIT eCW1 ([facility]) onabotulinumtoxinA 100 UNT/ML Injectable Solution [Bot ox] Botox 100 UNIT Botox 100 UNIT 07/08/2020 12:00:00 AM EDT suspended Botox 100 UNIT eCW1 ([facility]) onabotulinumtoxinA 100 UNT/ML Injectable Solution [Bot ox] Botox 100 UNIT Botox 100 UNIT 07/08/2020 12:00:00 AM EDT active Botox 100 UNIT eCW1 ([facility]) onabotulinumtoxinA 100 UNT/ML Injectable Solution [Bot ox] Botox 100 UNIT Botox 100 UNIT 07/08/2020 12:00:00 AM EDT active Botox 100 UNIT eCW1 ([facility]) onabotulinumtoxinA 100 UNT/ML Injectable Solution [Bot ox] Botox 100 UNIT Botox 100 UNIT 07/08/2020 12:00:00 AM EDT active Botox 100 UNIT eCW1 ([facility]) onabotulinumtoxinA 100 UNT/ML Injectable Solution [Bot ox] Botox 100 UNIT Botox 100 UNIT 07/08/2020 12:00:00 AM EDT suspended Botox 100 UNIT eCW1 ([facility]) onabotulinumtoxinA 100 UNT/ML Injectable Solution [Bot ox] Botox 100 UNIT Botox 100 UNIT 07/08/2020 12:00:00 AM EDT active eCW1 ([facility]) onabotulinumtoxinA 100 UNT/ML Injectable Solution [Bot ox] Botox 100 UNIT Botox 100 UNIT 07/08/2020 12:00:00 AM EDT active Botox 100 UNIT eCW1 ([facility]) Lisinopril 20 MG Oral Tablet Lisinopril 07/02/2020 12:00:00 AM EDT ORAL active MED[facility] ([facility]) Lisinopril 20 MG Oral Tablet lisinopril (PRINIVIL,ZEST RIL) 20 MG tablet lisinopril (PRINIVIL,ZESTRIL) 20 MG tablet 06/24/2020 12:00:00 AM EDT 20 mg Oral active Take 1 tablet (20 mg total) by mouth daily [facility] sodium chloride 0.9% (NS) infusion [id number] 06/22/2020 03:00:00 P M EDT Intravenous active at 100 mL/hr, Intravenous, Continuous, Starting on Sun06/22/20 at 1500, For 4 hours, Post-op [facility] Medication administered onsite normal saline flush 0.9 % injection 3 mL [id number] 06/22/2020 03:00:00 PM EDT 3 mL Intravenous active 3 mL , Intravenous, PROTOCOL, First dose on Sun06/22/20 at 1500, Pre-op
flush per protocol, D/C Main IV fluid if appropriate
[facility] Medication administered onsite Nitroglycerin 0.4 MG Sublingual Tablet n itroglycerin (NITROSTAT) SL tablet 0.4 mg nitroglycerin (NITROSTAT) SL tablet 0.4 mg 06/22/2020 02:18:36 P M EDT 0.4 mg Sublingual active 0.4 mg, S ublingual, Every 5 min PRN, chest pain, Starting on Sun06/22/20 at 1418, Post-op
May administer every 5 minutes for 3 doses and call cardio lab MD.
[facility] Medication administered onsite 10 ML Atropine Sulfate [...] or 0.04 mg/kg. Max of 6 doses
[facility] Medication administered onsite normal saline flush 0.9 % injection 3 mL [id number] 06/22/2020 02:00:00 PM EDT 3 mL Intravenous active 3 mL , Intravenous, Every 8 hours (scheduled), First dose on Sun06/22/20 at 1400, Pre-op
Rapid push positive pressure flushing shall be performed with a 10 cc normal saline syringe to check the PATENCY of a PIV site prior to any infusion therapy initiation unless resistance is met.
[facility] Medication administered onsite normal saline flush 0.9 % injection 3 mL [id number] 06/22/2020 02:00:00 PM EDT 3 mL Intravenous active 3 mL , Intravenous, Every 8 hours (scheduled), First dose on Sun06/22/20 at 1400, Pre-op
Rapid push positive pressure flushing shall be performed with a 10 cc normal saline syringe to check the PATENCY of a PIV site prior to any infusion therapy initiation unless resistance is met.
[facility] Medication administered onsite clopidogrel 75 MG Oral Tablet clopidogrel (PLAVIX) tab let clopidogrel (PLAVIX) tablet 06/22/2020 01:43:32 PM EDT active As needed, Starting on Sun06/22/20 at 1343, Intra-Procedure [facility] Medication administered onsite iopamidol (ISOVUE-370) 76 % [id number] 06/22/2020 01:39:07 PM EDT active As needed, Starting on Sun06/22/20 at 1339, Intra-Proce dure [facility] Medication administered onsite 1 ML heparin sodium, porcine 1000 UNT/ML Injection hep nataliya (porcine) injection heparin (porcine) injection 06/22/2020 01:24:36 PM EDT active As needed, Starting on Sun06/22/20 at 1324, Intra-Procedure [facility] Medication administered onsite lidocaine 1 % injection [id number] 06/22/2020 01:19:50 PM EDT active As needed, Starting on Sun 1 at 1319, Intra-Procedure [facility] Medication administered onsite fentaNYL Citrate (PF) (SUBLIMAZE) injection [id number] 06/22/2020 01:12:36 PM EDT active As neede d, Starting on Sun06/22/20 at 1312, Intra-Procedure [facility] Medication administered onsite 2 ML Midazolam 1 MG/ML Injection midazolam (VERSED) in jection midazolam (VERSED) injection 06/22/2020 01:12:17 PM EDT active As needed, Starting on Sun06/22/20 at 1312, Intra-Procedure [facility] Medication administered onsite Aspirin 325 MG Oral [...] home. Max of 1 dose per day.
[facility] Medication administered onsite sodium chloride 0.9% (NS) infusion [id number] 06/22/2020 01:00:00 PM EDT 100 mL/h Intravenous active at 100 m L/hr, 100 mL/hr, Intravenous, Continuous, Starting on Sun06/22/20 at 1300, Pre-op
Start two hours prior to scheduled start time
[facility] Medication administered onsite Diphenhydramine Hydrochloride 50 MG Oral Capsule diphenhydrAMINE (BENADRYL) capsule 50 mg diphenhydrAMINE (BENADRYL) capsule 50 mg 06/22/2020 01 :00:00 PM EDT 50 mg Oral completed 50 mg, Oral, score caller, On Sun06/22/20 at 1300, For 1 dose, Pre-op [facility] Medication administered onsite clopidogrel 75 MG Oral Tablet clopidogrel (PLAVIX) 75 MG tablet clopidogrel (PLAVIX) 75 MG tablet 06/22/2020 12:00:00 AM EDT 75 mg Oral active Take 1 tablet (75 mg total) by mouth daily [facility] 24 HR Isosorbide Mononitrate 30 MG Exten ded Release Oral Tablet isosorbide mononitrate (IMDUR) 30 MG 24 hr tablet isosorbide mononitrate (IMDUR) 30 MG 24 hr tablet 06/16/2020 12:00:00 AM EDT active TAKE ONE TABLET BY MOUTH EVERY DAY [facility] Lisinopril 20 MG Oral Tablet lisinopril (PRINIVIL,ZEST RIL) 20 MG tablet lisinopril (PRINIVIL,ZESTRIL) 20 MG tablet 06/15/2020 12:00:00 AM EDT 20 mg Oral aborted Take 1 tablet (20 mg total) by mouth daily [facility] prednisolone acetate 10 MG/ML Ophthalmic Suspension prednisoLONE acetate (PRED FORTE) 1 % ophthalmic suspension prednisoLONE acetate (PRED FORTE) 1 % ophthalmic suspension 05/28/2020 12:00:00 AM EDT 1 [drp] active Administer 1 drop to both eyes as needed [facility] Fluticasone Propionate Fluticasone Propionate 05/26/2020 12:00:00 AM E DT active [facility] ([facility] Isosorbide Dinitrate 30 MG Oral Tablet Isosorbide Dinitrate 05/26/2020 12:00:00 AM EDT ORAL active [facility] ([facility] Bisoprolol Fumarate 10 MG Oral Tablet Bisoprolol Fumarate 12:00:00 AM EDT ORAL active [facility] ([facility] clopidogrel 75 MG Oral Tablet clopidogrel (PLAVIX) 75 MG tablet clopidogrel (PLAVIX) 75 MG tablet 05/19/2020 12:00:00 AM EDT 75 mg Oral aborted Take 1 tablet (75 mg total) by mouth daily [facility] atorvastatin 80 MG Oral Tablet atorvastatin (LIPITOR) 80 MG tablet atorvastatin (LIPITOR) 80 MG tablet 04/28/2020 12:00:00 AM EST 80 mg Oral active Take 1 tablet (80 mg total) by mouth daily [facility] Bisoprolol Fumarate 10 MG Oral Tablet bisoprolol (ZEBE TA) 10 MG tablet bisoprolol (ZEBETA) 10 MG tablet 04/28/2020 12:00:00 AM EST active TAKE ONE TABLET BY MOUTH EVERY DAY [facility] gabapentin 400 MG Oral Capsule Gabapentin 400 MG Oral Capsule Gabapentin 400 MG Oral Capsule 04/27/2020 12:00:00 AM EST 1 activ e gabapentin 400 MG Oral Capsule JERI (Pancho Larsen MD [facility]) 24 HR Isosorbide Mononitrate 30 MG Exten ded Release Oral Tablet Isosorbide Mononitrate ER 30 MG Oral Tablet Extended Release 24 Hour Isosorbide Mononitrate ER 30 MG Oral Tablet Extended Release 24 Hour 04/27/2020 12:00:00 AM EST 1 active 24 HR isosorbide mononitr ate 30 MG Extended Release Oral Tablet JERI (Pancho Larsen MD [facility]) Bisoprolol Fumarate 10 MG Oral Tablet Bisoprolol Fumarate 10 MG Oral Tablet 04/27/2020 12:00:00 AM EST 1 active bisoprolol fumarate 10 MG Oral Tablet JERI (Pancho Larsen [facility]) prednisolone acetate 10 MG/ML Ophthalmic Suspension prednisoLONE Acetate 1% Ophthalmic Suspension prednisoLONE Acetate 1% Ophthalmic Suspension 04/28/19 12:00:00 AM EST active prednisolone acetate 10 MG/ML Ophthalmic Suspension JERI (Pancho Larsen [facility]) Lisinopril 10 MG Oral Tablet Lisinopril 10 MG Oral Tablet 12:00:00 AM EST 1 active lisinopril 10 MG Oral Tablet JERI (Pancho Larsen [facility]) atorvastatin 80 MG Oral Tablet [Lipitor] Lipitor 80 MG Oral Tablet Lipitor 80 MG Oral Tablet 04/27/2020 12:00:00 AM EST 1 activ e atorvastatin 80 MG Oral Tablet [Lipitor] JERI (Pancho Larsen MD [facility]) Trazodone Hydrochloride 100 MG Oral Tablet traZODone H Cl 100 MG Oral Tablet traZODone HCl 100 MG Oral Tablet 04/27/2020 12:00:00 AM EST 1 active trazodone hydrochloride 100 MG Oral Tablet JERI (Vashti Larsen [facility]) gabapentin 600 MG Oral Tablet Gabapentin 600 MG Oral T ablet Gabapentin 600 MG Oral Tablet 04/27/2020 12:00:00 AM EST 1 active gabapentin 600 MG Oral Tablet JERI (Pancho Larsen [facility]) 75 mg 04/20/2020 12:00:00 AM EST tablet 30 TAKE ONE TABLET BY MOUTH EVERY DAY TAKE ONE TABLET BY MOUTH EVERY DAY SOLD: 04/20/2020 [facility] Covid-19 vaccine, Unspecified 04/17/2020 12:00:00 AM EST completed [facility] Medication administered onsite Covid-19 vaccine, Unspecified 03/27/2020 12:00:00 AM EST completed [facility] ([facility] Medication administered onsite Lisinopril 10 MG Oral Tablet lisinopril (PRINIVIL,ZEST RIL) 10 MG tablet lisinopril (PRINIVIL,ZESTRIL) 10 MG tablet 03/11/2020 12:00:00 AM EST 10 mg Oral active Take 1 tablet (10 mg total) by mouth daily [facility] 120 ACTUAT Fluticasone propionate 0.23 M G/ACTUAT / salmeterol 0.021 MG/ACTUAT Metered Dose Inhaler [Advair] ADVAIR HFA 230-21 MCG/ACT inhaler ADVAIR HFA 230- 21 MCG/ACT inhaler 03/06/2020 12:00:00 AM EST 2 {puff} Inhalation active Inhale 2 puffs 2 (two) times a day [facility] NITROFURANTOIN, MACROCRYSTALS 25 MG / Ni trofurantoin, Monohydrate 75 MG Oral Capsule Nitrofurantoin Monohyd Macro 03/05/2020 12:00:00 AM EST active MEDENT ([facility]) 24 HR Isosorbide Mononitrate 30 MG Extended Release Or al Tablet ISOSORBIDE MONONITRATE 02/20/2020 12:00:00 AM EST tablet extended release 24 hr 30 TAKE ONE TABLET BY MOUTH EVERY DAY TAKE ONE TABLET BY MOUTH EVERY DAY SOLD: 02/20/2020 [facility] gabapentin 600 MG Oral Tablet Gabapentin 02/16/2020 12:00:00 AM EST active [facility] ([facility] ) gabapentin 400 MG Oral Capsule Gabapentin 01/30/2020 12:00:00 AM EST active [facility] ([facility] ) Bisoprolol Fumarate 10 MG Oral Tablet bisoprolol (ZEBE TA) 10 MG tablet bisoprolol (ZEBETA) 10 MG tablet 01/29/2020 12:00:00 AM EST 10 mg Oral active Take 1 tablet (10 mg total) by m outh daily [facility] atorvastatin 80 MG Oral Tablet atorvastatin (LIPITOR) 80 MG tablet atorvastatin (LIPITOR) 80 MG tablet 01/29/2020 12:00:00 AM EST 80 mg Oral active Take 1 tablet (80 mg total) by mouth daily [facility] 24 HR Isosorbide Mononitrate 30 MG Exten ded Release Oral Tablet isosorbide mononitrate (IMDUR) 30 MG 24 hr tablet isosorbide mononitrate (IMDUR) 30 MG 24 hr tablet 01/24/2020 12:00:00 AM EST 30 mg Oral active Take 1 tablet (30 mg total) by mouth daily [facility] Bisoprolol Fumarate 5 MG Oral Tablet bisoprolol (ZEBET A) 5 MG tablet bisoprolol (ZEBETA) 5 MG tablet 01/24/2020 12:00:00 AM EST 5 mg Oral aborted Take 1 tablet (5 mg total) by mouth daily [facility] Lisinopril 5 MG Oral Tablet lisinopril (PRINIVIL,ZESTR IL) 5 MG tablet lisinopril (PRINIVIL,ZESTRIL) 5 MG tablet 01/23/2020 12:00:00 AM EST 5 mg O ral aborted Take 1 tablet (5 mg total) by mo [facility] daily [facility] clopidogrel 75 MG Oral Tablet clopidogrel (PLAVIX) 75 MG tablet clopidogrel (PLAVIX) 75 MG tablet 01/23/2020 12:00:00 AM EST 75 mg Oral completed Take 1 tablet (75 mg total) by mouth daily [facility] iopamidol (ISOVUE-370) 76 % 70 mL [id number] 01/22/2020 09:48:[address] 70 mL Intravenous completed 70 mL, Intrav enous, Once in imaging, contrast, Starting Nivia 01/22/20 at 2148, For 1 dose [facility] Medication administered onsite 24 HR Isosorbide Mononitrate 30 MG Exten ded Release Oral Tablet isosorbide mononitrate (IMDUR) 24 hr tablet 30 mg isosorbide mononitrate (IMDUR) 24 hr tablet 30 mg 01/22/2020 02:00:00 PM EST 30 mg Oral activ e 30 mg, Oral, Daily, First dose on Sun01/22/20 at 1400
Hold for SBP <100
[facility] Medication administered onsite Bisoprolol Fumarate 5 MG Oral Tablet bisoprolol (ZEBET A) tablet 5 mg bisoprolol (ZEBETA) tablet 5 mg 01/22/2020 02:00:00 PM EST 5 mg Oral active 5 mg, Oral, Daily, First dose on Sun01/22/20 at 1400 [facility] Medication administered onsite Aspirin 81 MG Delayed Release Oral Tablet aspirin EC t ablet 81 mg aspirin EC tablet 81 mg 01/22/2020 09:00:00 AM EST 81 mg Oral activ e 81 mg, Oral, Daily, First dose on Sun01/22/20 at 0900 [facility] Medication administered onsite gabapentin 800 MG Oral Tablet gabapentin (NEURONTIN) t ablet 400 mg gabapentin (NEURONTIN) tablet 400 mg 01/22/2020 09:00:00 AM EST 400 mg Oral active 400 mg, Oral, Daily, First dose on Sun01/22/20 at 0900 [facility] Medication administered onsite Famotidine (PEPCID) injection 20 mg [id number] 01/21/2020 11:00:0 0 PM EST 20 mg Intravenous completed 20 mg, I ntravenous, Once, Sun01/21/20 at 2300, For 1 dose
Refrigerated only product. Located in med refrigerator on unit. Dilute with sodium chloride 0.9% to equal 10 ml. Administration Rate = 20mg/2 minutes
[facility] Medication administered onsite Baclofen 10 MG Oral Tablet baclofen (LIORESAL) tablet 10 mg baclofen (LIORESAL) tablet 10 mg 01/21/2020 09:00:00 PM EST 10 mg Oral activ e 10 mg, Oral, 2 times daily, First dose on Sun01/21/20 at 2100 [facility] Medication administered onsite Cyclosporine 0.5 MG/ML Ophthalmic Suspen jag cycloSPORINE (RESTASIS) 0.05 % ophthalmic emulsion 1 drop cycloSPORINE (RESTASIS) 0.05 % ophthalmi c emulsion 1 drop 01/21/2020 09:00:00 PM EST 1 [drp] active 1 drop, Both Eyes, 2 times daily, First dose on Sun01/21/20 at 2099
For administration and preparation considerations, refer to Hazardous Drugs in the Workplace Policy on [employer].
[facility] Medication administered onsite fluticasone (FLONASE) 50 MCG/ACT nasal spray 1 spray [id number] 01/21/2020 09:00:00 PM EST 1 {spray} active 1 spray, Each Nare, 2 times daily, First dose on Sun01/21/20 at 2099 [facility] Medication administered onsite lidocaine (ASPERCREME) 4 % 2 patch [id number] 01/21/2020 09:00:00 PM EST 2 {patch} Transdermal active 2 patch, [place]man sdermal, Administer over 12 Hours, Every 24 hours (relative), First dose on Sun01/21/20 at 2099 [facility] Medication administered onsite Nortriptyline 25 MG Oral Capsule nortriptyline (PAMELO R) capsule 25 mg nortriptyline (PAMELOR) capsule 25 mg 01/21/2020 09:00:00 PM EST 25 m g Oral active 25 mg, Oral, Nightly, First dose on Sun01/21/20 at 2099 [facility] Medication administered onsite montelukast 10 MG Oral Tablet montelukast (SINGULAIR) tablet 10 mg montelukast (SINGULAIR) tablet 10 mg 01/21/2020 09:00:00 PM EST 10 mg Oral active 10 mg, Oral, Nightly, First dose on Sun01/21/20 at 2099 [facility] Medication administered onsite pantoprazole 40 MG Delayed Release Oral Tablet pantoprazole (PROTONIX) EC tablet 40 mg pantoprazole (PROTONIX) EC tablet 40 mg 01/21/2020 09:00:[address] 40 mg Oral active Gastroesophageal Reflux Diseas e 40 mg, Oral, 2 times daily, Indications: Gastroesophageal Reflux Disease, First dose on Sun01/21/20 at 2099 [facility] Gastroesophageal Reflux Disease Medication administered onsite Sucralfate [...] should NOT be administered via feeding tubes.
[facility] Medication administered onsite traZODone (DESYREL) tablet 150 mg 01/21/2020 09:00:00 PM EST 150 mg Oral active 150 mg, Oral, Nightly, First dose on Sun01/21/20 at 2100 [facility] Medication administered onsite topiramate 100 MG Oral Tablet topiramate (TOPAMAX) tab let 100 mg topiramate (TOPAMAX) tablet 100 mg 01/21/2020 09:00:00 PM EST 100 mg Oral active 100 mg, Oral, 2 times daily, First dose on Sun01/21/20 at 2100
For administration and preparation considerations, refer to Hazardous Drugs in the Workplace Policy on Intranet.
[facility] Medication administered onsite gabapentin 300 MG Oral Capsule gabapentin (NEURONTIN) capsule 600 mg gabapentin (NEURONTIN) capsule 600 mg 01/21/2020 09:00:00 PM EST 600 mg Oral active 600 mg, Oral, Nightly, First dose on Sun01/21/20 at 2100 [facility] Medication administered onsite carvedilol 25 MG Oral Tablet carvedilol (COREG) tablet 25 mg carvedilol (COREG) tablet 25 mg 01/21/2020 06:00:00 PM EST 25 mg Oral abort ed 25 mg, Oral, 2 times daily with meals, First dose on Sun01/21/20 at 1800 [facility] Medication administered onsite Sertraline 50 MG Oral Tablet sertraline (ZOLOFT) table t 50 mg sertraline (ZOLOFT) tablet 50 mg 01/21/2020 06:00:00 PM EST 50 mg Oral active 50 mg, Oral, Daily, First dose on Sun01/21/20 at 1800 [facility] Medication administered onsite Ipratropium [place] 0.2 MG/ML Inhalant S olution ipratropium (ATROVENT) 0.02 % nebulizer solution 0.5 mg ipratropium (ATROVENT) 0.02 % nebulizer solution 0.5 mg 01/21/2020 04:00:00 PM EST 0.5 mg active 0.5 mg, Nebulization, 4 times daily, First dose on Sun01/21/20 at 1600 [facility] Medication administered onsite atorvastatin 40 MG Oral Tablet atorvastatin (LIPITOR) tablet 40 mg atorvastatin (LIPITOR) tablet 40 mg 01/21/2020 02:00:00 PM EST 40 mg Oral active 40 mg, Oral, Daily, First dose on Sun01/21/20 at 1400 [facility] Medication administered onsite clopidogrel 75 MG Oral Tablet clopidogrel (PLAVIX) tab let 75 mg clopidogrel (PLAVIX) tablet 75 mg 01/21/2020 02:00:00 PM EST 75 mg Oral active 75 mg, Oral, Daily, First dose on Sun01/21/20 at 1400 [facility] Medication administered onsite 60 ACTUAT formoterol fumarate 0.005 MG/A CTUAT / mometasone furoate 0.2 MG/ACTUAT Metered Dose Inhaler mometasone-formoterol (DULERA) 200-5 MCG/ACT inhaler 2 puff mometasone-formoterol (DULERA) 200-5 MCG/ACT inhaler 2 puff 01/21/2020 02:00:00 PM EST 2 {puff} Inhalation active 2 puff, Inhalation, 2 times daily, First dose on Sun01/21/20 at 1400 [facility] Medication administered onsite Nitroglycerin 0.4 MG Sublingual Tablet n itroglycerin (NITROSTAT) SL tablet 0.4 mg nitroglycerin (NITROSTAT) SL tablet 0.4 mg 01/21/2020 01:13:58 P M EST 0.4 mg Sublingual active 0.4 mg, S ublingual, Every 5 min PRN, chest pain, Starting Sun01/21/20 at 1313, Post-op
May administer every 5 minutes for 3 doses and call cardio lab MD.
[facility] Medication administered onsite Acetaminophen 325 MG Oral Tablet acetaminophen (TYLENO L) 325 MG tablet 650 mg acetaminophen (TYLENOL) 325 MG tablet 650 mg 01/21/2020 01:13:58 PM EST 650 mg Oral active 650 mg, Or al, Every 4 hours PRN, headaches, and non cardiac pain, Starting Sun01/21/20 at 1313, Post-op
"Maximum dose of acetaminophen is 4,000 mg from all sources in 24 hours."
[facility] Medication administered onsite Acetaminophen 325 MG / Oxycodone Hydroch loride 5 MG Oral Tablet oxyCODONE- acetaminophen (PERCOCET) 5-325 MG 1 tablet oxyCODONE-acetaminophen (PERCOCET) 5- 325 MG 1 tablet 01/21/2020 12:58:31 PM EST 1 {tbl} Oral a ctive 1 tablet, Oral, Every 8 hours PRN, moderate pain (4-6), Starting Sun01/21/20 at 1258, For 7 days [facility] Medication administered onsite Albuterol 0.83 MG/ML Inhalant Solution a lbuterol (PROVENTIL) nebulizer solution 2.5 mg albuterol (PROVENTIL) nebulizer solution 2.5 mg 2019 12:57:10 PM EST 2.5 mg active 2.5 mg, Nebulization, RT every 4 hours as needed, shortness of breath, Starting Sun01/21/20 at 1257 [facility] Medication administered onsite sodium chloride 0.9% (NS) infusion 3954-9568-82 01/21/2020 10:00:00 AM EST 100 mL/h Intravenous active at 100 m L/hr, 100 mL/hr, Intravenous, Continuous, Starting Sun01/21/20 at 1000, Pre-op
Start two hours prior to scheduled start time
[facility] Medication administered onsite Aspirin 325 MG Oral [...] home. Max of 1 dose per day.
[facility] Medication administered onsite Diphenhydramine Hydrochloride 50 MG Oral Capsule diphenhydrAMINE (BENADRYL) capsule 50 mg diphenhydrAMINE (BENADRYL) capsule 50 mg 01/21/2020 10 :00:00 AM EST 50 mg Oral completed 50 mg, Oral, score caller, Sun01/21/20 at 1000, For 1 dose, Pre-op [facility] Medication administered onsite Trazodone Hydrochloride 100 MG Oral Tablet traZODone ( DESYREL) 100 MG tablet traZODone (DESYREL) 100 MG tablet 01/08/2020 12:00:00 AM EST 100 mg active 100 mg nightly [facility] clopidogrel 75 MG Oral Tablet clopidogrel (PLAVIX) 75 MG tablet clopidogrel (PLAVIX) 75 MG tablet 12/30/2019 12:00:00 AM EST 75 mg Oral aborted Take 1 tablet (75 mg total) by mouth daily [facility] 120 ACTUAT Fluticasone propionate 0.23 M G/ACTUAT / salmeterol 0.021 MG/ACTUAT Metered Dose Inhaler [Advair] ADVAIR HFA 230-21 MCG/ACT inhaler ADVAIR HFA 230- 21 MCG/ACT inhaler 12/09/2019 12:00:00 AM EDT 1 {inhaler} Oral aborted Take 1 Inhaler by mouth 2 (two) times a day [facility] gabapentin 600 MG Oral Tablet gabapentin (NEURONTIN) 6 00 MG tablet gabapentin (NEURONTIN) 600 MG tablet 11/11/2019 12:00:00 AM EDT aborted [facility] montelukast 10 MG Oral Tablet MONTELUKAST SODIUM 10/15/2019 12:0 0:00 AM EDT tablet 90 TAKE ONE TABLET BY MOUTH EVERY D AY TAKE ONE TABLET BY MOUTH EVERY DAY SOLD: 08/19/2020 Jose Lopez s montelukast 10 MG Oral Tablet MONTELUKAST SODIUM 10/15/2019 12:0 0:00 AM EDT tablet 90 TAKE ONE TABLET BY MOUTH EVERY D AY TAKE ONE TABLET BY MOUTH EVERY DAY SOLD: 02/02/2020 Jose Lopez s montelukast 10 MG Oral Tablet MONTELUKAST SODIUM 10/15/2019 12:0 0:00 AM EDT tablet 90 TAKE ONE TABLET BY MOUTH EVERY D AY TAKE ONE TABLET BY MOUTH EVERY DAY SOLD: 05/20/2020 Jose norris carvedilol 25 MG Oral Tablet carvedilol (COREG) 25 MG tablet carvedilol (COREG) 25 MG tablet 08/11/2019 12:00:00 AM EDT 25 mg Oral abort ed Take 1 tablet (25 mg total) by mouth 2 (two) times a day with meals [facility] atorvastatin 40 MG Oral Tablet [Lipitor] Lipitor 40 MG Oral Tablet Lipitor 40 MG Oral Tablet 04/25/2019 12:00:00 AM EST 1 abort ed atorvastatin 40 MG Oral Tablet [Lipitor] JERI (Pancho Larsen MD [facility]) carvedilol 25 MG Oral Tablet Carvedilol 25 MG Oral Tab let Carvedilol 25 MG Oral Tablet 04/25/2019 12:00:00 AM EST 1 aborted carvedilol 25 MG Oral Tablet JERI (Pancho Larsen MD [facility]) fluticasone (FLONASE) 50 MCG/ACT nasal spray [id number] 02/22/2019 12:00:00 AM EST aborted [facility] Lisinopril 2.5 MG Oral Tablet Lisinopril 2.5MG Oral Ta blet Lisinopril 2.5MG Oral Tablet 04/16/2018 12:00:00 AM EST 1 aborted lisinopril 2.5 MG Oral Tablet JEIR (Pancho Larsen MD [facility]) loteprednol etabonate 0.005 MG/MG Ophtha lmic Ointment [Lotemax] Lotemax 0.5% Ophthalmic Ointment Lotemax 0.5% Ophthalmic Ointment 02/08/2018 12:00:00 AM EST aborted loteprednol etab karlie 0.005 MG/MG Ophthalmic Ointment [Lotemax] JERI (Pancho Larsen MD [facility]) Lisinopril 2.5 MG Oral Tablet lisinopril (PRINIVIL,ZES TRIL) 2.5 MG tablet lisinopril (PRINIVIL,ZESTRIL) 2.5 MG tablet 05/17/2016 12:00:00 AM EDT 2.5 mg Oral aborted Take 2.5 mg by mouth daily [facility] atorvastatin 40 MG Oral Tablet atorvastatin (LIPITOR) 40 MG tablet atorvastatin (LIPITOR) 40 MG tablet 03/17/2016 12:00:00 AM EST aborted LIPITOR 40 MG TABS [facility] Melatonin 10 MG Oral Tablet Melatonin 10 MG TABS Melatonin 1 0 MG TABS 03/17/2016 12:00:00 AM EST 10 mg Oral aborted Take 1 0 mg by mouth daily [facility] alcaftadine 2.5 MG/ML Ophthalmic Solutio n [Lastacaft] Lastacaft 0.25% Ophthalmic Solution Lastacaft 0.25% Ophthalmic Solution 01/20/2016 12:00:00 AM EST 1 aborted alcaftadine 2.5 MG/ML Oph thalmic Solution [Lastacaft] JERI (Pancho Larsen MD [facility]) gabapentin 400 MG Oral Capsule Gabapentin 400 MG Capsu le Gabapentin 400 MG Capsule 11/03/2014 12:00:00 AM EDT 1 aborted gabapentin 400 MG Oral Capsule JERI (Pancho Larsen MD [facility]) Trazodone Hydrochloride 50 MG Oral Tablet traZODone HC l 50 MG OR TABS traZODone HCl 50 MG OR TABS 01/12/2014 12:00:00 AM EST 3 aborted trazodone hydrochloride 50 MG Oral Tablet JERI (Pancho Larsen MD [facility]) tramadol hydrochloride 50 MG Oral Tablet tramadol 50 mg tablet Take 3 tablets every day by oral route at bedtime. tramadol 50 mg tablet Take 3 tablets coral ry day by oral route at bedtime. 3 complete d tramadol hydrochloride [address] ([facility]) Lisinopril 2.5 MG Oral Tablet lisinopril 2.5 mg tablet lisin opril 2.5 mg tablet completed lisinopril 2.[address] ([facility]) Bisoprolol Fumarate 5 MG Oral Tablet bis oprolol fumarate 5 mg tablet Take 1 tablet every day by oral route. bisoprolol fumarate 5 mg tablet Take 1 t ablet every day by oral route. 1 completed bisoprolol fumarate [address] ([facility]) Diclofenac Sodium 0.01 MG/MG Topical Gel Diclofenac So dium 1 % GEL Diclofenac Sodium 1 % GEL aborted diclofena c 1 % topical gel [facility] Ibuprofen 600 MG Oral Tablet ibuprofen 6 00 mg tablet Take 1 tablet twice a day by oral route for 10 days. ibuprofen 600 mg tablet Take 1 tablet tw ice a day by oral route for 10 days. 1 completed ibuprofen [address] ([facility]) Acetaminophen 325 MG / Hydrocodone Miranda trate 5 MG Oral Tablet hydrocodone 5 mg- acetaminophen 325 mg tablet hydrocodone 5 mg-acetaminophen 325 mg tablet completed acetaminophen 325 MG / hydrocodone bitartrate [address] ([facility]) atorvastatin 40 MG Oral Tablet atorvastatin 40 mg tabl et atorvastatin 40 mg tablet completed atorvastatin [address] ([facility]) Ondansetron 4 MG Oral Tablet ondansetron HCl 4 mg tabl et ondansetron HCl 4 mg tablet completed ondansetron 4 M G Oral Tablet COURT ([facility]) Oxycodone Hydrochloride 5 MG Oral Tablet oxycodone 5 m g tablet oxycodone 5 mg tablet completed oxycodone hydro chloride [address] ([facility]) Oxycodone Hydrochloride 5 MG Oral Tablet oxyCODONE (ROXICODONE) 5 MG immediate release tablet oxyCODONE (ROXICODONE) 5 MG immediate release tablet aborted oxycodone 5 mg tablet [facility] atorvastatin 40 MG Oral Tablet atorvastatin 40 mg tabl et atorvastatin 40 mg tablet completed atorvastatin [address] ([facility]) Trazodone Hydrochloride 50 MG Oral Tablet trazodone 50 mg tablet trazodone 50 mg tablet completed trazodone hydr ochloride [address] ([facility]) Lisinopril 5 MG Oral Tablet lisinopril 5 mg tablet lisinopril 5 mg ta blet completed lisinopril [address] ([facility]) Lisinopril 5 MG Oral Tablet lisinopril 5 mg tablet lisinopril 5 mg ta blet completed lisinopril [address] ([facility]) Lisinopril 2.5 MG Oral Tablet lisinopril 2.5 mg tablet lisin opril 2.5 mg tablet completed lisinopril 2.[address] ([facility]) fluticasone propionate 50 mcg/actuation nasal spray,suspension [id number] completed fluticasone propionate 0.05 MG/ACTUAT Metered Dose Nasal [place] COURT ([facility]) Oxycodone Hydrochloride 5 MG Oral Tablet oxycodone 5 m g tablet oxycodone 5 mg tablet completed oxycodone hydro chloride [address] ([facility]) Lisinopril 10 MG Oral Tablet lisinopril 10 mg tablet lisinopril 10 mg tablet completed lisinopril [address] ([facility]) Nystatin [id number] UNT/ML Topical Cream nystatin 100,000 unit/gram topical cream nystatin 100,000 unit/gram topical cream completed nystatin [id number] UNT/ML Topical Cream COURT ([facility]) Trazodone Hydrochloride 150 MG Oral Tablet traZODone ( DESYREL) 150 MG tablet traZODone (DESYREL) 150 MG tablet 150 mg Oral abor benitez Take 150 mg by mouth nightly [facility] atorvastatin 40 MG Oral Tablet atorvastatin 40 mg tabl et atorvastatin 40 mg tablet completed atorvastatin [address] ([facility]) Acetaminophen 325 MG / Hydrocodone Miranda trate 5 MG Oral Tablet hydrocodone 5 mg- acetaminophen 325 mg tablet hydrocodone 5 mg-acetaminophen 325 mg tablet completed acetaminophen 325 MG / hydrocodone bitartrate [address] ([facility]) Ondansetron 4 MG Oral Tablet ondansetron HCl 4 mg tabl et ondansetron HCl 4 mg tablet completed ondansetron 4 M G Oral Tablet COURT ([facility]) Trazodone Hydrochloride 50 MG Oral Tablet trazodone 50 mg tablet trazodone 50 mg tablet completed trazodone hydr ochloride [address] ([facility]) NITROFURANTOIN, MACROCRYSTALS 25 MG / Ni trofurantoin, Monohydrate 75 MG Oral Capsule nitrofurantoin monohydrate/macrocrystals 100 mg capsule nitrofurantoin monohydrate/macrocrystals 100 mg capsule completed nitrofurantoin, macrocrystals 25 MG / nitrofurantoin, monohydrate [address] ([facility]) Ondansetron 4 MG Oral Tablet ondansetron HCl 4 mg tabl et ondansetron HCl 4 mg tablet completed ondansetron 4 M G Oral Tablet COURT ([facility]) 24 HR Isosorbide Mononitrate 30 MG Exten ded Release Oral Tablet isosorbide mononitrate (IMDUR) 30 MG 24 hr tablet isosorbide mononitrate (IMDUR) 30 MG 24 hr tablet aborted isosor bide mononitrate ER 30 mg tablet,extended release 24 hr TAKE ONE TABLET BY MOUTH EVERY DAY [facility] Isosorbide Dinitrate 30 MG Oral Tablet i sosorbide dinitrate 30 mg tablet Take 1 tablet twice a day by oral route. isosorbide dinitrate 30 mg tablet Take 1 tablet twice a day by oral route. 1 comp leted isosorbide dinitrate [address] ([facility]) Cephalexin 500 MG Oral Capsule cephalexin 500 mg capsu le cephalexin 500 mg capsule completed cephalexin [address] ([facility]) Bisoprolol Fumarate 5 MG Oral Tablet bis oprolol fumarate 5 mg tablet Take 1 tablet every day by oral route. bisoprolol fumarate 5 mg tablet Take 1 t ablet every day by oral route. 1 completed bisoprolol fumarate [address] ([facility]) NITROFURANTOIN, MACROCRYSTALS 25 MG / Ni trofurantoin, Monohydrate 75 MG Oral Capsule nitrofurantoin monohydrate/macrocrystals 100 mg capsule nitrofurantoin monohydrate/macrocrystals 100 mg capsule completed nitrofurantoin, macrocrystals 25 MG / nitrofurantoin, monohydrate [address] ([facility]) tramadol hydrochloride 50 MG Oral Tablet tramadol 50 mg tablet Take 3 tablets every day by oral route at bedtime. tramadol 50 mg tablet Take 3 tablets coral ry day by oral route at bedtime. 3 complete d tramadol hydrochloride [address] ([facility]) Oxycodone Hydrochloride 5 MG Oral Tablet oxycodone 5 m g tablet oxycodone 5 mg tablet completed oxycodone hydro chloride [address] ([facility]) Nystatin [id number] UNT/ML Topical Cream nystatin 100,000 unit/gram topical cream nystatin 100,000 unit/gram topical cream completed nystatin [id number] UNT/ML Topical Cream COURT ([facility]) Lisinopril 5 MG Oral Tablet lisinopril 5 mg tablet lisinopril 5 mg ta blet completed lisinopril [address] ([facility]) Oxycodone Hydrochloride 5 MG Oral Tablet oxycodone 5 m g tablet oxycodone 5 mg tablet completed oxycodone hydro chloride [address] ([facility]) Ondansetron 4 MG Oral Tablet ondansetron HCl 4 mg tabl et ondansetron HCl 4 mg tablet completed ondansetron 4 M G Oral Tablet COURT ([facility]) Nystatin [id number] UNT/ML Topical Cream nystatin 100,000 unit/gram topical cream nystatin 100,000 unit/gram topical cream completed nystatin [id number] UNT/ML Topical Cream COURT ([facility]) Lisinopril 10 MG Oral Tablet lisinopril 10 mg tablet lisinopril 10 mg tablet completed lisinopril [address] ([facility]) Trazodone Hydrochloride 50 MG Oral Tablet trazodone 50 mg tablet trazodone 50 mg tablet completed trazodone hydr ochloride [address] ([facility]) Clonazepam 0.5 MG Oral Tablet clonazepam 0.5 mg tablet clona zepam 0.5 mg tablet completed clonazepam 0.[address] ([facility]) tramadol hydrochloride 50 MG Oral Tablet tramadol 50 mg tablet Take 3 tablets every day by oral route at bedtime. tramadol 50 mg tablet Take 3 tablets coral ry day by oral route at bedtime. 3 complete d tramadol hydrochloride [address] ([facility]) atorvastatin 40 MG Oral Tablet atorvastatin 40 mg tabl et atorvastatin 40 mg tablet completed atorvastatin [address] ([facility]) Trazodone Hydrochloride 50 MG Oral Tablet trazodone 50 mg tablet trazodone 50 mg tablet completed trazodone hydr ochloride [address] ([facility]) Clonazepam 0.5 MG Oral Tablet clonazepam 0.5 mg tablet clona zepam 0.5 mg tablet completed clonazepam 0.[address] ([facility]) NITROFURANTOIN, MACROCRYSTALS 25 MG / Ni trofurantoin, Monohydrate 75 MG Oral Capsule nitrofurantoin monohydrate/macrocrystals 100 mg capsule nitrofurantoin monohydrate/macrocrystals 100 mg capsule completed nitrofurantoin, macrocrystals 25 MG / nitrofurantoin, monohydrate [address] ([facility]) CALCIUM CARBONATE-VITAMIN D PO 1 {tbl} Oral aborted Take 1 tablet by mouth 2 (two) times a day [facility] Oxycodone Hydrochloride 5 MG Oral Tablet oxycodone 5 m g tablet oxycodone 5 mg tablet completed oxycodone hydro chloride [address] ([facility]) tramadol hydrochloride 50 MG Oral Tablet tramadol 50 mg tablet Take 3 tablets every day by oral route at bedtime. tramadol 50 mg tablet Take 3 tablets coral ry day by oral route at bedtime. 3 complete d tramadol hydrochloride [address] ([facility]) carvedilol 25 MG Oral Tablet carvedilol 25 mg tablet carvedilol 25 mg tablet completed carvedilol [address] ([facility]) Ibuprofen 600 MG Oral Tablet ibuprofen 6 00 mg tablet Take 1 tablet twice a day by oral route for 10 days. ibuprofen 600 mg tablet Take 1 tablet tw ice a day by oral route for 10 days. 1 completed ibuprofen [address] ([facility]) Isosorbide Dinitrate 30 MG Oral Tablet i sosorbide dinitrate 30 mg tablet Take 1 tablet twice a day by oral route. isosorbide dinitrate 30 mg tablet Take 1 tablet twice a day by oral route. 1 comp leted isosorbide dinitrate [address] ([facility]) Isosorbide Dinitrate 30 MG Oral Tablet i sosorbide dinitrate 30 mg tablet Take 1 tablet twice a day by oral route. isosorbide dinitrate 30 mg tablet Take 1 tablet twice a day by oral route. 1 comp leted isosorbide dinitrate [address] ([facility]) Acetaminophen 325 MG / Hydrocodone Miranda trate 5 MG Oral Tablet hydrocodone 5 mg- acetaminophen 325 mg tablet hydrocodone 5 mg-acetaminophen 325 mg tablet completed acetaminophen 325 MG / hydrocodone bitartrate [address] ([facility]) Lisinopril 2.5 MG Oral Tablet lisinopril 2.5 mg tablet lisin opril 2.5 mg tablet completed lisinopril 2.[address] ([facility]) Doxycycline Monohydrate 100 MG Oral Caps ule doxycycline monohydrate 100 mg capsule doxycycline monohydrate 100 mg capsule completed doxycycline monohydrate [address] ([facility]) Ibuprofen 600 MG Oral Tablet ibuprofen 6 00 mg tablet Take 1 tablet twice a day by oral route for 10 days. ibuprofen 600 mg tablet Take 1 tablet tw ice a day by oral route for 10 days. 1 completed ibuprofen [address] ([facility]) Clonazepam 0.5 MG Oral Tablet clonazepam 0.5 mg tablet clona zepam 0.5 mg tablet completed clonazepam 0.[address] ([facility]) Nystatin [id number] UNT/ML Topical Cream nystatin 100,000 unit/gram topical cream nystatin 100,000 unit/gram topical cream completed nystatin [id number] UNT/ML Topical Cream COURT ([facility]) Bisoprolol Fumarate 5 MG Oral Tablet bis oprolol fumarate 5 mg tablet Take 1 tablet every day by oral route. bisoprolol fumarate 5 mg tablet Take 1 t ablet every day by oral route. 1 completed bisoprolol fumarate [address] ([facility]) Isosorbide Dinitrate 30 MG Oral Tablet i sosorbide dinitrate 30 mg tablet Take 1 tablet twice a day by oral route. isosorbide dinitrate 30 mg tablet Take 1 tablet twice a day by oral route. 1 comp leted isosorbide dinitrate [address] ([facility]) fluticasone propionate 50 mcg/actuation nasal spray,suspension [id number] completed fluticasone propionate 0.05 MG/ACTUAT Metered Dose Nasal [place] OCURT ([facility]) Acetaminophen 325 MG / Hydrocodone Miranda trate 5 MG Oral Tablet hydrocodone 5 mg- acetaminophen 325 mg tablet hydrocodone 5 mg-acetaminophen 325 mg tablet completed acetaminophen 325 MG / hydrocodone bitartrate [address] ([facility]) Cephalexin 500 MG Oral Capsule cephalexin 500 mg capsu le cephalexin 500 mg capsule completed cephalexin [address] ([facility]) Lisinopril 10 MG Oral Tablet lisinopril 10 mg tablet lisinopril 10 mg tablet completed lisinopril [address] ([facility]) carvedilol 25 MG Oral Tablet carvedilol 25 mg tablet carvedilol 25 mg tablet completed carvedilol [address] ([facility]) carvedilol 25 MG Oral Tablet carvedilol 25 mg tablet carvedilol 25 mg tablet completed carvedilol [address] ([facility]) 120 ACTUAT Fluticasone propionate 0.115 MG/ACTUAT / salmeterol 0.021 MG/ACTUAT Metered Dose Inhaler fluticasone-salmeterol (ADVAIR HFA) 115-21 MCG/ACT inhaler fluticasone-salmeterol (ADVAIR HFA) 115-21 MCG/ACT inhaler 2 {puff} Oral aborted Take 2 puffs by mouth daily [facility] Lisinopril 2.5 MG Oral Tablet lisinopril 2.5 mg tablet lisin opril 2.5 mg tablet completed lisinopril 2.[address] ([facility]) Bisoprolol Fumarate 5 MG Oral Tablet bis oprolol fumarate 5 mg tablet Take 1 tablet every day by oral route. bisoprolol fumarate 5 mg tablet Take 1 t ablet every day by oral route. 1 completed bisoprolol fumarate [address] ([facility]) Ondansetron 4 MG Oral Tablet ondansetron HCl 4 mg tabl et ondansetron HCl 4 mg tablet completed ondansetron 4 M G Oral Tablet COURT ([facility]) Isosorbide Dinitrate 30 MG Oral Tablet i sosorbide dinitrate 30 mg tablet Take 1 tablet twice a day by oral route. isosorbide dinitrate 30 mg tablet Take 1 tablet twice a day by oral route. 1 comp leted isosorbide dinitrate [address] ([facility]) Trazodone Hydrochloride 50 MG Oral Tablet trazodone 50 mg tablet trazodone 50 mg tablet completed trazodone hydr ochloride [address] ([facility]) Doxycycline Monohydrate 100 MG Oral Caps ule doxycycline monohydrate 100 mg capsule doxycycline monohydrate 100 mg capsule completed doxycycline monohydrate [address] ([facility]) Insurance Providers Payer name Policy type / Coverage type Policy ID Covered green party ID Covered green party's relationship to hogan Policy Hogan Plan Information BS [place] Medigap Part B [id number] 2.0.1.387614.3.227.99.991.287473.0 Family Dependent [id number] BS [place] Medigap Part B [id number] Family Dependent [id number] BS [place] [facility] [id number] 2.0.1.437308.3.227.99.991.199507.0 Family Dependent [id number] BS [place] [facility] Part B [id number] 2.0.1.893129.3.227.99.991.420939.0 Family Dependent [id number] BS [place] [facility] Part B [id number] 2.0.1.940791.3.227.99.991.858955.0 Family Dependent [id number] BS [place] Medigap Part B [id number] 2.0.1.434391.3.227.99.991.892326.0 Family Dependent [id number] BS [place] [facility] [id number].[id number] Family Dependent [id number] BS [place] Medigap Part B [id number] 2.0.1.515442.3.227.99.991.438020.0 Family Dependent [id number] BS [place] Medigap Part B [id number] Family Dependent [id number] BS [place] Medigap Part B [id number] 2.0.1.581916.3.227.99.991.167093.0 Family Dependent [id number] BS [place] Medigap Part B [id number].[id number] Family Dependent [id number] BS [place] Medigap Part B [id number] 2.0.1.804204.3.227.99.991.850764.0 Family Dependent [id number] BS [place] Medigap Part B [id number] 2.0.1.255484.3.227.99.991.930428.0 Family Dependent [id number] BS [place] Medigap Part B [id number] 2.0.1.539291.3.227.99.991.853676.0 Family Dependent [id number] BS [place] Medigap Part B [id number] 2.840.1.575083.3.227.99.991.344144.0 Family Dependent [id number] [employer] MEDICAL CLAIMS [id number] HU2 [id number] RMSCO PPO 2 [id number] 2 [id number] Lifetime Benefit Solut Medigap Part B 21249 Family Depen dent Rmsco/Lifetime Nacho Solut Medigap Part B 93400 Family Dep endent Lifetime Benefit Solut Medigap Part B 96615 Family Depen dent Rmsco/Lifetime Nacho Solut Medigap Part B 18891 Family Dep endent BS [place] Medigap Part B [id number] 2.16840.1.770466.3.227.99.991.996803.0 Self [id number] BS [place] Medigap Part B [id number] Self BS [place] Commercial 302/802 [id number] Self 302/802 BS Filiberto Trad/MX [facility] Part B [id number] 2.0.1.977318.3.227.99.4595.43187.0 Self [id number] [facility] [id number] 0 [id number] BS [place] Medigap Part B [id number] 2.0.1.930333.3.227.99.991.326168.0 Self [id number] Excellus [facility] [id number] 2.0.1.77312 3.3.227.99.8646.4431.0 Self [id number] BS [place] Commercial [id number] 2.0.1.883721.3.227.99.991.146460.0 Self [id number] BS [place] Trad/MX Commercial 802 [id number] Self 802 Excellus [facility] Health Maintenance Organization (HMO) [id number] 2.16840.1.712351.3.227.99.8646.4431.0 Self U [id number] [facility] HMO/PPO/POS/EPO/OTHER [id number] 0 [id number] Blue Ppo Commercial [id number] Self EXCELLUS H [id number] Self [id number] EBS-RMSCO [id number] 1 [id number] EBSRMSCO LIFETIME BENEFIT SOLU [id number] Spo [id number] RMSCO [id number] 1 [id number] EBS-RMSCO [id number] 1 [id number] EXCELLUS BCBS [id number] Nichole UFU [id number] Lifetime Benefit Solution Medigap Part B [id number] 2..1.168901.3.227.99.991.715974.0 Family Dependent [id number] Lifetime Benefit Solution Medigap Part B 545414 Family De pendent BS [place] Trad/MX Medigap Part B [id number] 2..1.452863.3.227.99.4595.25367.0 Family Dependent [id number] BS [place] Trad/MX Medigap Part B [id number] 2...933622.3.227.99.4595.40243.0 Family Dependent [id number] BS [place] Trad/MX Commercial 802 17857 Self 802 BS [place] Trad/MX Commercial [id number] 2..1.628860.3.227.99.4595.83588.0 Self [id number] BS [place] Trad/MX Medigap Part B [id number] 2..1.605108.3.227.99.4595.05384.0 Self [id number] BCBS [place] PPO 302/307 [id number] SP [id number] BS [place] Trad/MX Medigap Part B [id number] 2..1.346305.3.227.99.4595.46680.0 Self [id number] BS [place] Trad/MX Medigap Part B [id number] 2..1.424032.3.227.99.4595.46366.0 Self [id number] BS [place] Trad/MX Commercial [id number] Self BS [place] Trad/MX Medigap Part B [id number] 2..1.057564.3.227.99.4595.35034.0 Self [id number] BS [place] Trad/MX Commercial [id number] 2...968067.3.227.99.4595.01696.0 Self [id number] BCBS OF [place] 306/806 [id number] SP [id number] MEDICARE [id number] xxxxxxxxxxx [id number] MEDICARE A [id number] Self [id number] MEDICARE A [id number] Self [id number] MEDICARE [id number] Nichole [id number] Y51 BS [place] Medigap Part B [id number] 2...332905.3.227.99.991.483508.0 Family Dependent [id number] BS [place] Medigap Part B [id number] 2...273714.3.227.99.991.679626.0 Family Dependent [id number] BS [place] Medigap Part B [id number].[id number] Family Dependent [id number] BS [place] Medigap Part B [id number] ...536452.3.227.99.991.630248.0 Family Dependent [id number] BS [place] Medigap Part B 302/802 086167 Family Dependent 302/802 BS [place] Medigap Part B [id number] 2..1.554904.3.227.99.991.848509.0 Family Dependent [id number] BS [place] Medigap Part B [id number] 2..1.483445.3.227.99.991.140028.0 Family Dependent [id number] BS [place] Medigap Part B [id number].[id number] Family Dependent [id number] BS [place] Medigap Part B [id number] 2.0.1.799317.3.227.99.991.273103.0 Family Dependent [id number] BS [place] Medigap Part B [id number] 2.0.1.546484.3.227.99.991.519221.0 Family Dependent [id number] BS [place] Medigap Part B [id number] 2...629971.3.227.99.991.388084.0 Family Dependent [id number] BS [place] Medigap Part B [id number].[id number] Family Dependent [id number] BS [place] Medigap Part B [id number] 2..1.637305.3.227.99.991.075348.0 Family Dependent [id number] BS [place] Medigap Part B [id number] 2..1.735420.3.227.99.991.632511.0 Family Dependent [id number] BS [place] Medigap Part B [id number] 2..1.948133.3.227.99.991.898933.0 Family Dependent [id number] BS [place] Medigap Part B [id number].[id number] Family Dependent [id number] BS [place] Medigap Part B [id number] 2.0.1.096897.3.227.99.991.117156.0 Family Dependent [id number] BS [place] Medigap Part B [id number] 2.0.1.175833.3.227.99.991.051407.0 Family Dependent [id number] BS [place] Medigap Part B [id number] 2.0.1.067509.3.227.99.991.934778.0 Family Dependent [id number] BS [place] Medigap Part B [id number] 2..1.268684.3.227.99.991.168532.0 Family Dependent [id number] BS [place] Medigap Part B [id number] 2..1.928242.3.227.99.991.105371.0 Family Dependent [id number] EXCELLUS BCBS [id number] xxxxxxxxxxxx [phone] [id number] EXCELLUS BCBS [id number] Spo VYW [id number] EXCELLUS BCBS [id number] Spo VYW [id number] MEDICARE [id number] Nichole [id number] A Medicare Natl [facility] Medicare Primary [id number] 2.0.1.211837.3.227.99.4595.38380.0 Self [id number] Medicare Natl Govt Servic Medicare Primary [id number] 2.0.1.726897.3.227.99.4595.24104.0 Self [id number] Medicare Natl [facility] Medicare Primary [id number] 2.0.1.595529.3.227.99.4595.50900.0 Self [id number] Medicare Natl [facility] Medicare Primary [id number] 2.0.1.265240.3.227.99.4595.57606.0 Self [id number] Medicare [facility] Govt Servic Medicare Primary [id number] 2.16.840.1.542694.3.227.99.4595.40989.0 Self [id number] Medicare [facility] Govt Servic Medicare Primary [id number] 2.16840.1.026445.3.227.99.4595.97223.0 Self [id number] BS [place] Medigap Part B [id number] 2.840.1.707828.3.227.99.991.077941.0 Family Dependent [id number] BS [place] Medigap Part B [id number] 2.0.1.573946.3.227.99.991.873205.0 Family Dependent [id number] EXCELLUS C [id number] Spouse [id number] BS [place] Medigap Part B [id number] 2.0.1.173691.3.227.99.991.662945.0 Family Dependent [id number] [place] Primary [id number] MRN.[id number] Self [id number] [place] Medicare Primary [id number] MRN.[id number] Self [id number] [place] Medicare Primary [id number] 2.840.1.400572.3.227.99.991.997741.0 Self [id number] [place] Medicare Primary [id number] MRN.[id number] Self [id number] [place] Medicare Primary [id number] 2.16.840.1.348099.3.227.99.991.316644.0 Self [id number] [place] Medicare Primary [id number] 2.16.840.1.477554.3.227.99.991.094348.0 Self [id number] [place] Medicare Primary [id number] MRN.[id number] Self [id number] [place] Medicare Primary [id number] 2.16.840.1.105716.3.227.99.991.569904.0 Self [id number] [place] Medicare Primary [id number] 2.16.840.1.080954.3.227.99.991.876354.0 Self [id number] [place] Medicare Primary [id number] 2.16.840.1.132841.3.227.99.991.440794.0 Self [id number] [place] Medicare Primary [id number] 2.16.840.1.087688.3.227.99.991.625176.0 Self [id number] MEDICARE [id number] SP [id number] Y51 EXCELLUS BC-BS PPO 306 [id number] SP [id number] BCBS of [place] Other 0 [id number] Family D ependent Eric Ailey 0 Medicare Part B of [place] Other 0 [id number] 1 Self 0 EXCELLUS CNY [facility] BS [id number] 01 [id number] MEDICARE PART A [facility] [id number] 18 [id number] MEDICARE [id number] S [id number] Y51 EXCELLUS BCBS B [id number] S [id number] [id number] MEDICARE [id number] SP [id number] BCBS [place] PPO 302/307 [id number] HU2 [id number] BCBS of [facility] Other 0 [id number] Family D ependent Eric Tuttle 0 Medicare Part B of [place] Other 0 [id number] 1 Self 0 EXCELLUS CNY [place] BS UNAVAILABLE 01 UNAVAILABLE BCBS 2.0.1.126887.3.441 [id number] Blue Cross/Bl ue Shield 2.0.1.843371.3.441 Lifetime Benefit Solutions 2.840.1.802563.3.441 105 [id number] Commercial Insurance Co. 2.0.1.545139.3.441 [employer] 2.0.1.660678.3.441 [id number] Commercial Insurance Co. 2.0.1.724989.3.441 BCBS 2.840.1.348871.3.441 [id number] Blue Cross/Bl ue Shield 2.840.1.587598.3.441 BCBS 2.840.1.284153.3.441 [id number] Blue Cross/Bl ue Shield 2.0.1.266488.3.441 Medicare 2.840.1.820136.3.441 [id number] Medicare Part B 2.0.1.415990.3.441 BC/BS Of Lizzeth Jannie [facility] Part B [id number] MRN.[id number] Self [id number] Medicare Part B Medicare Primary [id number] MRN.[id number] Self [id number] BC/BS Of [place] [facility] Part B [id number] MRN.[id number] Family Dependent [id number] Lifetime Benefit (Rmsco) Commercial [id number] 2.16.840.1.786415.3.227.99.4595.84069.0 Family Dependent [id number] BCBS OF [place] 306/806 [id number] UNK2 [id number] BC/BS Of [place] [facility] Part B [id number] 2.16.840.1.261627.3.227.99.1037.32944.0 Self [id number] Medicare Part B Medicare Primary [id number] 2.16.840.1.066883.3.227.99.1037.24424.0 Self [id number] BC/BS Of [place] [facility] Part B [id number] 2.16.840.1.076777.3.227.99.1037.18380.0 Self [id number] Medicare Part B Medicare Primary [id number] 2.16.840.1.355746.3.227.99.1037.91079.0 Self [id number] BLUE CROSS BLUE SHIELD -O/P [id number] 01 [id number] MEDICARE PART A -O/P [id number] 18 [id number] BC/BS [facility] [place] [facility] Part [facility] [id number] 2.16.840.1.044829.3.227.99.1037.12218.0 Self [id number] Medicare Part B Medicare Primary [id number] 2.16.840.1.311919.3.227.99.1037.45403.0 Self [id number] MEDICARE C [id number] S [id number] A MEDICARE PART A -O/P [id number] 18 [id number] MEDICARE PART A [facility] [id number] 18 [id number] MEDICARE [id number] A BC/BS Of [place] [facility] Part B [id number] 2.16.840.1.045023.3.227.99.1037.21150.0 Self [id number] Medicare Part B Medicare Primary [id number] 2.16.840.1.812314.3.227.99.1037.50455.0 Self [id number] [place] Medicare Primary [id number] 2.16.840.1.585728.3.227.99.991.184523.0 Self [id number] Medicare [place] Medicare Primary [id number] 2.16.840.1.926903.3.227.99.991.698062.0 Self [id number] [place] Medicare Primary [id number] 2.16.0.1.655464.3.227.99.991.765637.0 Self [id number] BC/BS [facility] [place] [facility] [id number] 2.16840.1.358645.3.227.99.1037.15026.0 Self [id number] Medicare Part B Medicare Primary [id number] 2.16.840.1.859129.3.227.99.1037.24113.0 Self [id number] [place] SVC OPTIONS C [id number] S [id number] [place] Medicare Primary [id number] 2.16.840.1.480819.3.227.99.991.001996.0 Self [id number] BC/BS Of [place] [facility] Part B [id number] 2.16.840.1.429804.3.227.99.1037.53632.0 Self [id number] Medicare Part B Medicare Primary [id number] 2.16.840.1.733646.3.227.99.1037.17609.0 Self [id number] [place] Medicare Primary [id number] 2.0.1.420030.3.227.99.991.215515.0 Self [id number] EXCELLUS BS B [id number] S [id number] [id number] EXCELLUS BS B [id number] S [id number] Medicare [place] Medicare Primary [id number] 2.0.1.101606.3.227.99.991.835319.0 Self [id number] Medicare [place] Medicare Primary [id number] 2.0.1.221738.3.227.99.991.702869.0 Self [id number] BC/BS Of [facility] Medigap Part B [id number] 2.0.1.256670.3.227.99.1037.65034.0 Self [id number] Medicare Part B Medicare Primary [id number] 2.0.1.000538.3.227.99.1037.21129.0 Self [id number] Lifetime Benefit Solution Medigap Part B [id number] 2.0.1.563294.3.227.99.991.673435.0 Family Dependent [id number] Medicare [place] Medicare Primary [id number] 2.0.1.170736.3.227.99.991.425854.0 Self [id number] [facility] [id number] 2.0.1.01680 3.3.227.99.8646.4431.0 Self [id number] Medicare [place]/NGS Medicare Primary [id number] 2.0.1.919821.3.227.99.8646.4431.0 Self [id number] MEDICARE C [id number] S [id number] Excellus [facility] Medigap Part B [id number] 2.0.1.68239 3.3.227.99.8646.4431.0 Self [id number] BC/BS Of [place] Commercial [id number] 2.16.840.1.339673.3.227.99.1037.47836.0 Self [id number] BC/BS Of [place] Commercial [id number] 2.16.840.1.897380.3.227.99.1037.23095.0 Family Dependent [id number] BC/BS Of [place] [facility] Part B [id number] 2.16.840.1.055045.3.227.99.1037.45413.0 Self [id number] Lifetime Benefit Solution [facility] Part B [id number] 2..840.1.766798.3.227.99.991.479587.0 Family Dependent [id number] Lifetime Benefit Solution [facility] Part B [id number] Family De pendent EXCELLUS BCBS B [id number] S UFU [id number] Lifetime Benefit ([employer]ms[employer]) Commercial 20484 Family Depende nt BC/BS Of [place] Medigap Part B 26072 Family Dep endent BC/BS Of [place] Commercial 35026 Self LIFETIME BENEFIT SOLUTIO O [id number] P [id number] BCBS Excellus Ppo U/W [facility] Part B 54508 Self BCBS Excellus Ppo U/W [facility] Part B 84098 Self BCBS Excellus Ppo U/W [facility] Part B 21751 Family Depend ent BCBS Excellus Ppo U/W Commercial 11341 Self BC/BS Of [place] Commercial 74523 Family Depende nt BCBS [place] PPO 302/307 [id number] SP [id number] BLUE CROSS OTHER 1 [id number] SP [id number] EXCELLUS BCBS B UNAVAILABLE P UNAV AILABLE BC/BS [place] [facility] 55670 Self BC/BS [place] [facility] Part B 59532 Self LIFETIME BENEFIT SOLUTIONS [id number] SP [id number] BCBS [place] PPO 302/307 [id number] SP [id number] Lifetime Benefit Solution Commercial 18355 Family Depend ent LIFETIME BENEFIT SOLUTIO S [id number] P [id number] RMSCO S [id number] S [id number] SELF PAY 2 UNAVAILABLE 1 UNAVAILA BLE BC EXC PLANS 1 [id number] 1 UFU2 [id number] DAJUAN BC-BS PPO 306 [id number] HU2 [id number] Problems, Conditions, and Diagnoses Code Display Name Description Problem Type Effective Dates Data Source(s) E66.09 Other obesity due to excess calories Oth er obesity due to excess calories Diagnosis 09/28/2020 09:58:02 AM EDT [facility] 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 Dependence on other enabling machines an Diagnosis 09/28/2020 09:58:02 AM EDT [facility] G47.33 Obstructive sleep apnea (adult) (pediatr ic) Obstructive sleep apnea (adult) (pediatr Diagnosis 09/28/2020 09:58:02 AM EDT [facility] E78.49 Other hyperlipidemia Other hyperlipidemia Diagnosis 09/28/2020 09:58:02 AM EDT [facility] I10 Essential (primary) hypertension Essential (primary) h ypertension Diagnosis 09/28/2020 09:58:02 AM EDT [facility] I25.10 Atherosclerotic heart diseas e of [place] coronary artery without angina pectoris Atherosclerotic heart disease of [place] Diagnosis 09/28/2020 09:58:02 AM EDT [facility] I25.5 Ischemic cardiomyopathy Ischemic cardiomyopathy Diagno sis 09/28/2020 09:58:02 AM EDT [facility] I25.2 Old myocardial infarction Old myocardial infarction Di agnosis 06/22/2020 11:07:00 AM EDT [facility] R07.89 Other chest pain Other chest pain Diagnosis 06/22/2020 11 :07:00 AM EDT [facility] Z98.61 Coronary angioplasty status Coronary angioplasty statu s Diagnosis 06/22/2020 11:07:00 AM EDT [facility] Z01.810 Encounter for preprocedural cardiovascul ar examination Encounter for preprocedural cardiovascul Diagnosis 06/15/2020 10:50:[address] [facility] E78.5 Hyperlipidemia, unspecified Hyperlipidemia, unspecifie d Diagnosis 04/02/2020 11:02:09 AM EST [facility] I21.02 ST elevation (STEMI) myocard ial infarction involving left anterior descending coronary artery ST elevation (STEMI) myocardial infarcti Diagnosis 01/21/2020 08:39:00 AM EST [facility] G89.29 Chronic pain Other chronic pain Problem 08/13/2020 12:0 0:00 AM EDT eCW1 ([facility]) G43.709 [id number] Chronic migraine Problem 07/15/2020 12:00:00 AM EDT eC1 ([facility]) G43.709 [id number] Chronic migraine w/o aura w/o status migrainosus, not intractable Problem 06/17/2020 12:00:00 AM EDT eCW1 ([facility]) I25.[address] elevation myocardial infar ction (STEMI) History of ST elevation myocardial infarction (STEMI) [id number] 06/17/2020 12:00:00 AM EDT [facility] R07.89 Other chest pain Other chest pain [id number] 06/17/2020 12 :00:00 AM EDT [facility] Z98.61 Coronary angioplasty status Coronary angioplasty statu s [id number] 06/17/2020 12:00:00 AM EDT [facility] G47.33 JAY on CPAP JAY on CPAP [id number] 01/14/2020 12:00:00 AM [facility] I10 Essential hypertension Essential hypertension [id number] 01/14/2020 12:00:00 AM [facility] Surgeries/Procedures Procedure Description Date Indications Data Source(s) OFFICE OUTPATIENT VISIT 15 MINUTES 01/07/2021 12:00:00 AM [facility]) THERAPEUTIC PX 1/> AREAS EACH 15 MIN EXERCISES 12:00:00 AM EST [facility] ([facility] ) MANUAL THERAPY TQS 1/> REGIONS EACH 15 MINUTES 12:00:00 AM EDT [facility] ([facility]) THERAPEUTIC PX 1/> AREAS EACH 15 MIN EXERCISES 12:00:00 AM EDT [facility] ([facility]) Physical Therapy Eval - Low Complexity 12/20/2020 12:0 0:00 AM EDT [facility] ([facility]) Shave Biopsy Of Skin, Single Lesion 12/16/2020 12:00:0 0 AM EDT [facility] ([facility]) OFFICE OUTPATIENT VISIT 25 MINUTES 12/16/2020 12:00:00 AM EDT [facility] ([facility]) OFFICE OUTPATIENT VISIT 25 MINUTES 12/07/2020 12:00:00 AM EDT [facility] ([facility] ) OFFICE OUTPATIENT VISIT 25 MINUTES 12/07/2020 12:00:00 AM EDT [facility] ([facility]) PHYSICIAN TELEPHONE EVALUATION 5-10 MIN 12/02/2020 12: 00:00 AM EDT [facility] ([facility] ) OFFICE OUTPATIENT VISIT 15 MINUTES 12/02/2020 12:00:00 AM EDT [facility] ([facility] ) FALLS RISK ASSESSMENT DOCUMENTED 11/30/2020 12:00:00 A M EDT [facility] ([facility] ) OFFICE OUTPATIENT VISIT 25 MINUTES 11/30/2020 12:00:00 AM EDT [facility] ([facility] ) BRNCDILAT RSPSE SPMTRY PRE&POST-BRNCDILAT ADMN 12:00:00 AM EDT [facility] ([facility]) OFFICE OUTPATIENT VISIT 15 MINUTES 11/26/2020 12:00:00 AM EDT MEDENT ([facility]) OFFICE OUTPATIENT VISIT 15 MINUTES 11/23/2020 12:00:00 AM EDT MEDENT ([facility] ) OFFICE OUTPATIENT VISIT 10 MINUTES 11/12/2020 12:00:00 AM EDT MEDENT ([facility]) RADIOLOGIC EXAM KNEE COMPLETE 4/MORE VIEWS 11/11/2020 12:00:00 AM EDT MEDENT ([facility]) OFFICE OUTPATIENT VISIT 25 MINUTES 11/11/2020 12:00:00 AM EDT MEDENT ([facility]) OFFICE OUTPATIENT VISIT 15 MINUTES 11/11/2020 12:00:00 AM EDT MEDENT ([facility]) OFFICE OUTPATIENT VISIT 25 MINUTES 11/10/2020 12:00:00 AM EDT MEDENT ([facility]) OFFICE OUTPATIENT NEW 30 MINUTES 11/08/2020 12:00:00 A M EDT MEDENT ([facility]) OFFICE OUTPATIENT VISIT 15 MINUTES 11/04/2020 12:00:00 AM EDT MEDENT ([facility] ) OFFICE OUTPATIENT VISIT 15 MINUTES 11/01/2020 12:00:00 AM EDT MEDENT ([facility]) THERAPEUTIC PX 1/> AREAS EACH 15 MIN EXERCISES 12:00:00 AM EDT MEDENT ([facility] ) THERAPEUTIC PX 1/> AREAS EACH 15 MIN EXERCISES 12:00:00 AM EDT MEDENT ([facility] ) THERAPEUTIC PX 1/> AREAS EACH 15 MIN EXERCISES 12:00:00 AM EDT MEDENT ([facility]) THERAPEUTIC PX 1/> AREAS EACH 15 MIN EXERCISES 12:00:00 AM EDT MEDENT ([facility] ) THERAPEUTIC PX 1/> AREAS EACH 15 MIN EXERCISES 12:00:00 AM EDT MEDENT ([facility] ) APPLICATION MODALITY 1/> AREAS HOT/COLD PACKS 10/16/19 12:00:00 AM EDT MEDENT ([facility] ) Chronic Care Management Services Ea Addl 20 Min 2020 12:00:00 AM EDT MEDENT ([facility]) Chronic Care MGMT 20 Mins Clinical Staff Time Per Calendar M onth 10/13/2020 12:00:00 AM EDT MEDENT ([facility] ) THERAPEUTIC PX 1/> AREAS EACH 15 MIN EXERCISES 12:00:00 AM EDT MEDENT ([facility] ) THERAPEUTIC PX 1/> AREAS EACH 15 MIN EXERCISES 12:00:00 AM EDT MEDENT ([facility] ) THERAPEUTIC PX 1/> AREAS EACH 15 MIN EXERCISES 12:00:00 AM EDT MEDENT ([facility] ) MANUAL THERAPY TQS 1/> REGIONS EACH 15 MINUTES 12:00:00 AM EDT MEDENT ([facility] ) OFFICE OUTPATIENT VISIT 25 MINUTES 10/04/2020 12:00:00 AM EDT MEDENT ([facility]) MANUAL THERAPY TQS 1/> REGIONS EACH 15 MINUTES 12:00:00 AM EDT MEDENT ([facility] ) OFFICE OUTPATIENT VISIT 15 MINUTES 09/29/2020 12:00:00 AM EDT MEDENT ([facility] ) THERAPEUTIC PX 1/> AREAS EACH 15 MIN EXERCISES 12:00:00 AM EDT MEDENT ([facility] ) ARTHROCENTESIS ASPIR&/INJECTION MAJOR JT/BURSA 12:00:00 AM EDT MEDENT ([facility] ) THERAPEUTIC PX 1/> AREAS EACH 15 MIN EXERCISES 12:00:00 AM EDT MEDENT ([facility] ) THERAPEUTIC PX 1/> AREAS EACH 15 MIN EXERCISES 12:00:00 AM EDT MEDENT ([facility] ) THERAPEUTIC PX 1/> AREAS EACH 15 MIN EXERCISES 12:00:00 AM EDT MEDENT ([facility] ) THERAPEUTIC PX 1/> AREAS EACH 15 MIN EXERCISES 12:00:00 AM EDT MEDENT ([facility] ) MANUAL THERAPY TQS 1/> REGIONS EACH 15 MINUTES 12:00:00 AM EDT MEDENT ([facility] ) THERAPEUTIC PX 1/> AREAS EACH 15 MIN EXERCISES 12:00:00 AM EDT MEDENT ([facility] ) MANUAL THERAPY TQS 1/> REGIONS EACH 15 MINUTES 021 12:00:00 AM EDT MEDENT ([facility] ) MANUAL THERAPY TQS 1/> REGIONS EACH 15 MINUTES 12:00:00 AM EDT MEDENT ([facility] ) THERAPEUTIC PX 1/> AREAS EACH 15 MIN EXERCISES 12:00:00 AM EDT MEDENT ([facility] ) THERAPEUTIC PX 1/> AREAS EACH 15 MIN EXERCISES 12:00:00 AM EDT MEDENT ([facility] ) MANUAL THERAPY TQS 1/> REGIONS EACH 15 MINUTES 12:00:00 AM EDT MEDENT ([facility] ) THERAPEUTIC PX 1/> AREAS EACH 15 MIN EXERCISES 12:00:00 AM EDT MEDENT ([facility] ) MANUAL THERAPY TQS 1/> REGIONS EACH 15 MINUTES 12:00:00 AM EDT MEDENT ([facility] ) THERAPEUTIC PX 1/> AREAS EACH 15 MIN EXERCISES 12:00:00 AM EDT MEDENT ([facility] ) MANUAL THERAPY TQS 1/> REGIONS EACH 15 MINUTES 12:00:00 AM EDT MEDENT ([facility] ) FALLS RISK ASSESSMENT DOCUMENTED 08/31/2020 12:00:00 A M EDT MEDENT ([facility]) OFFICE OUTPATIENT VISIT 25 MINUTES 08/31/2020 12:00:00 AM EDT MEDENT ([facility] ) Chronic Care MGMT 20 Mins Clinical Staff Time Per Calendar M ont 08/31/2020 12:00:00 AM EDT MEDENT ([facility] ) Physical Therapy Eval - Low Complexity 08/26/2020 12:0 0:00 AM EDT MEDENT ([facility] ) X-Ray Hips Bilateral With Pelvis 3-4 Views 08/17/2020 12:00:00 AM EDT MEDENT ([facility] ) OFFICE OUTPATIENT VISIT 15 MINUTES 08/17/2020 12:00:00 AM EDT MEDENT ([facility] ) OFFICE OUTPATIENT VISIT 25 MINUTES 08/17/2020 12:00:00 AM EDT MEDENT ([facility] ) Pain Procedure Log 08/16/2020 12:00:00 AM EDT eCW1 ([facility]) Chronic Care Management Services Ea Addl 20 Min 2020 12:00:00 AM EDT MEDHEIDI ([facility]) Chronic Care MGMT 20 Mins Clinical Staff Time Per Calendar M ont 07/14/2020 12:00:00 AM EDT JAMILAH ([facility] ) ECG ROUTINE ECG W/LEAST 12 LDS TRCG ONLY W/O I&R <td>E CG 12- LEAD</td><td>Routine</td><td>06/22/2020 2:28 PM EDT</td><td></td><td></td> 06/22/2020 02:28:03 PM EDT [facility] CARDIAC CATHETERIZATION <td>CARDIAC CATHETERIZATION</td><td>Routine</td><td>06/22/2020 1:36 PM EDT</td><td> Cardiomyopathy, ischemic Coronary artery disease involving galena coronary artery of galena heart without angina pectoris Coronary angioplasty status [...] chest painCoronary angioplasty statusCoronary artery disease involving galena coronary artery of galena heart without angina pectorisCardiomyopathy, ischemic [facility] History of ST elevation myocardial infar ction (STEMI) Obesity due to excess calories, unspecif ied classification, unspecified whether serious comorbidity present JAY on CPAP Essential hypertension Other hyperlipidemia Other chest pain Coronary angioplasty status Coronary artery disease involving galena coronary artery of galena heart without angina pectoris Cardiomyopathy, ischemic ECG ROUTINE ECG W/LEAST 12 LDS TRCG ONLY W/O I&R <td>E CG 12- LEAD</td><td>Routine</td><td>06/22/2020 11:46 AM EDT</td><td></td><td></td> 06/22/2020 11:46:22 AM EDT [facility] Operation on Heart Valve 06/22/2020 12:00:[address] ([facility]) Operation on Heart Valve 06/22/2020 12:00:[address] ([facility]) Operation on Heart Valve 06/22/2020 12:00:[address] ([facility]) Chronic Care Management Services Ea Addl 20 Min 2020 12:00:00 AM EDT MEDENT ([facility]) Chronic Care MGMT 20 Mins Clinical Staff Time Per Calendar M onth 06/17/2020 12:00:00 AM EDT MEDENT ([facility] ) BRNCDILAT RSPSE SPMTRY PRE&POST-BRNCDILAT ADMN 021 12:00:00 AM EDT MEDENT ([facility]) OFFICE OUTPATIENT VISIT 25 MINUTES 05/24/2020 12:00:00 AM EDT MEDENT ([facility] ) OFFICE OUTPATIENT VISIT 25 MINUTES 05/03/2020 12:00:00 AM EDT MEDENT ([facility]) Surgical / procedural history : 2 C-Sect ions, Cautery in nose due to nose bleed (Dr. Hussein Zamarripa), Stimulator inserted into back June 2013, Right Shoulder Surgery in July 2013, Throat [id number], Left Knee Surgery 07/2014, 1 heart stent 02/2016, Hysterectomy June 2018, Knee Surgery September 2018, Hammer Toe Surgery 02/2019, 2 heart stents and cleaning of other stent 02/2019 Surgical / procedural history : 2 C-Sections, Cautery in nose due to nose bleed (Dr. Hussein Zamarripa), Stimulator inserted into back June 2013, Right Shoulder Surgery in July 2013, Throat [id number], Left Knee Surgery 07/2014, 1 heart stent 02/2016, Hysterectomy June 2018, Knee Surgery September 2018, Hammer Toe Surgery 02/2019, 2 heart stents and cleaning of other stent 02/201904/27/2020 12:00:00 AM EST JERI (Pancho Larsen MD [facility]) Comprehensive eye exam established patient Comprehensi ve eye exam established patient 04/27/2020 12:00:00 AM EST JERI (Chauncey Larsen MD [facility]) CHEMODNRVTJ MUSC MUSC INNERVATED FACIAL NRV 03/12/2020 12:00:00 AM EST MEDENT ([facility]) TROPONIN QUANTITATIVE <td>TROPONIN I</td><td>Routi ne</td><td>01/23/2020 6:20 AM EST</td><td></td><td> </td> 01/23/2020 11:20:00 AM EST [facility] BLOOD COUNT COMPLETE AUTOMATED <td>CBC</td><td>Routine </td><td>01/23/2020 6:20 AM EST</td><td></td><td> </td> 01/23/2020 11:20:00 AM EST [facility] BASIC METABOLIC PANEL CALCIUM TOTAL <td>BASIC METABOLI C PANEL</td><td>Routine</td><td>01/23/2020 6:20 AM EST</td><td></td><td> </td> 01/23/2020 11:20:00 AM EST [facility] CT ANGIOGRAPHY CHEST W/CONTRAST/NONCONTRAST <td>CT ANG IOGRAM CHEST</td><td>Routine</td><td>01/22/2020 10:06 PM EST</td><td></td><td> </td> 01/23/2020 03:06:19 AM EST [facility] CREATINE KINASE MB FRACTION ONLY <td>CKMB</td><td>Rout ine</td><td>01/22/2020 9:02 PM EST</td><td></td><td> </td> 01/23/2020 02:02:00 AM EST [facility] TROPONIN QUANTITATIVE <td>TROPONIN I</td><td>Add-O n</td><td>01/22/2020 4:14 PM EST</td><td></td><td> </td> 01/22/2020 09:14:00 PM EST [facility] FIBRIN DGRADJ PRODUCTS D-DIMER QUANTITATIVE <td>D-DIME R, QUANTITATIVE</td><td>STAT</td><td>01/22/2020 4:14 PM EST</td><td></td><td> </td> 01/22/2020 09:14:00 PM EST [facility] CMB <td>CMB</td><td>STAT</td><td >01/22/2020 1:26 PM EST</td><td></td><td> </td> 01/22/2020 06:26:00 PM EST [facility] TROPONIN QUANTITATIVE <td>TROPONIN I</td><td>STAT< /td><td>01/22/2020 1:26 PM EST</td><td></td><td> </td> 01/22/2020 06:26:00 PM EST [facility] CREATINE KINASE MB FRACTION ONLY <td>CKMB</td><td>STAT </td><td>01/22/2020 1:26 PM EST</td><td></td><td> </td> 01/22/2020 06:26:00 PM EST [facility] ECG ROUTINE ECG W/LEAST 12 LDS W/I&R <td>ECG 12- LEAD</td><td>Routine</td><td>01/22/2020 11:51 AM EST</td><td></td><td></td> 01/22/2020 04:51:46 PM EST [facility] ECG ROUTINE ECG W/LEAST 12 LDS TRCG ONLY W/O I&R <td>E CG 12- LEAD</td><td>Routine</td><td>01/22/2020 5:11 AM EST</td><td></td><td></td> 01/22/2020 10:11:01 AM EST [facility] BASIC METABOLIC PANEL CALCIUM TOTAL <td>BASIC METABOLI C PANEL</td><td>Routine</td><td>01/22/2020 4:43 AM EST</td><td></td><td> </td> 01/22/2020 09:43:00 AM EST [facility] ECG ROUTINE ECG W/LEAST 12 LDS TRCG ONLY W/O I&R <td>E CG 12- LEAD</td><td>Routine</td><td>01/21/2020 1:19 PM EST</td><td></td><td></td> 01/21/2020 06:19:33 PM EST [facility] CARDIAC CATHETERIZATION <td>CARDIAC CATHETERIZATION</td><td>Routine</td><td>01/21/2020 12:47 PM EST</td><td> Coronary angioplasty status Cardiomyopathy, ischemic Hyperlipidemia, unspecified hyperlipidemia type ST elevation (STEMI) myocardial infarction involving left anterior descending coronary artery Essential hypertension JAY on CPAP</td><td> </td> 01/21/2020 05:47:04 PM EST JAY on CPAPEssential hypertensionST elev ation (STEMI) myocardial infarction involving left anterior descending coronary arteryHyperlipidemia, unspecified hyperlipidemia typeCardiomyopathy, ischemicCoronary angioplasty status [facility] JAY on CPAP Essential hypertension ST elevation (STEMI) myocardial infarcti on involving left anterior descending coronary artery Hyperlipidemia, unspecified hyperlipidem ia type Cardiomyopathy, ischemic Coronary angioplasty status ECG ROUTINE ECG W/LEAST 12 LDS TRCG ONLY W/O I&R <td>E CG 12- LEAD</td><td>Routine</td><td>01/21/2020 8:59 AM EST</td><td></td><td></td> 01/21/2020 01:59:03 PM EST [facility] Operation on Heart Valve 01/21/2020 12:00:[address] ([facility]) Operation on Heart Valve 01/21/2020 12:00:[address] ([facility]) Operation on Heart Valve 01/21/2020 12:00:[address] ([facility]) Operation on Heart Valve 01/21/2020 12:00:[address] ([facility]) CHEMODNRVTJ MUSC MUSC INNERVATED FACIAL NRV 12/11/2019 12:00:00 AM EDT MEDENT ([facility] ) Needle electromyography, each extremity, with related paraspinal areas, when performed, done with nerve conduction, amplitude and latency/velocity study; complete, five or more muscles studied, innervated by three or more nerves or four or more spinal levels (list separately in addition to the code for primary procedure). 11/24/2019 12:00:00 AM EDT MEDEN T ([facility] ) Needle electromyography, each extremity, with related paraspinal areas, when performed, done with nerve conduction, amplitude and latency/velocity study; complete, five or more muscles studied, innervated by three or more nerves or four or more spinal levels (list separately in addition to the code for primary procedure). 11/24/2019 12:00:00 AM EDT MEDEN T ([facility] ) Needle Electromyography Non Extremity Done With Nerve Conduc tion 11/24/2019 12:00:00 AM EDT MEDENT ([facility]) [address] Nerve conduction studies 13 or more studies NEW 201211/24/2019 12:00:00 AM EDT [facility] Results ID Date Data Source [id number] 01/07/2021 12:00:00 AM EST [facility] Name Value Range Interpretation Code Description Data Viki rce(s) Supporting Document(s) SARS-CoV2 Rapid Antigen Negative [facility] This lab was reported by [facility]. ID Date Data Source [id number] 12/16/2020 03:29:00 PM EDT MEDENT ([facility]) Name Value Range Interpretation Code Description Data Viki rce(s) Supporting Document(s) Laboratory test finding (navigational concept) Laboratory test result MEDENT ([facility]) No further treatment Laboratory test finding (navigational concept) Laboratory test result MEDENT ([facility]) No further treatment ID Date Data Source [id number] 12/07/2020 11:57:00 AM EDT MEDENT ([facility]) Name Value Range Interpretation Code Description Data Viki rce(s) Supporting Document(s) C reactive protein [Mass/volume] in Serum or Plasma by High sensitivity method 0.95 mg/dL 0.00-0.30 MED[facility] ([facility]) Erythrocyte sedimentation rate by Westergren method 24 mm/hr 0-30 MEDENT ([facility]) ID Date Data Source [id number] 12/07/2020 11:57:00 AM EDT MEDENT ([facility]) Name Value Range Interpretation Code Description Data Viki rce(s) Supporting Document(s) White Blood Count 8.1 10 4.0-10.0 MEDENT ([facility]) Red Blood Count 4.07 10 4.00-5.40 MEDENT ([facility]) Hemoglobin 12.3 g/dL 12.0-15.5 MEDENT ([facility]) Mean Corpuscular Volume 94.6 fl 80.0-96.0 M EDENT ([facility]) Mean Corpuscular Hemoglobin 30.2 pg 27.0-33.0 MEDENT ([facility]) Hematocrit 38.5 % 36.0-47.0 MED[facility] ([facility]) Platelet Count, Automated 311 10 150-450 MEDENT ([facility]) Red Cell Distribution Width 14.3 % 11.5-14.5 MEDENT ([facility]) Mean Corpuscular HGB Conc 31.9 g/dL 32.0-36.5 MEDENT ([facility]) Neutrophils % 66.6 % 36.0-66.0 MED[facility] Lymph % 24.9 % 24.0-44.0 [facility] ([facility] Manati % 6.8 % 2.0-8.0 MEDENT ([facility]) Baso % 0.7 % 0.0-1.0 MED[facility] ([facility]) Immature Granulocyte % 0.5 % 0-3.0 MEDENT ([facility]) Eos % 0.5 % 0.0-3.0 MED[facility] ([facility]) Nucleated Red Blood Cell % 0.0 % 0-0 MED ENT ([facility]) Neutrophils # 5.4 10 1.5-8.5 [facility] ([facility] Manati # 0.6 10 0.0-0.8 [facility] ([facility]) Lymph # 2.0 10 1.5-5.0 [facility] ([facility]) Baso # 0.1 10 0.0-0.2 [facility] ([facility] Eos # 0.0 10 0.0-0.5 [facility] ([facility]) ID Date Data Source [id number] 11/23/2020 01:12:00 PM EDT MEDENT ([facility]) Name Value Range Interpretation Code Description Data Viki rce(s) Supporting Document(s) Erythrocyte sedimentation rate by Westergren method 27 mm/hr 0-30 MEDENT ([facility]) C reactive protein [Mass/volume] in Serum or Plasma by High sensitivity method 0.94 mg/dL 0.00-0.30 MED[facility] ([facility]) ID Date Data Source [id number] 11/23/2020 01:12:00 PM EDT MEDENT ([facility]) Name Value Range Interpretation Code Description Data Viki rce(s) Supporting Document(s) White Blood Count 10.5 10 4.0-10.0 MEDENT ([facility]) Red Blood Count 4.06 10 4.00-5.40 MEDENT ([facility]) Hemoglobin 12.5 g/dL 12.0-15.5 MEDENT ([facility]) Hematocrit 39.2 % 36.0-47.0 MEDENT ([facility]) Mean Corpuscular HGB Conc 31.9 g/dL 32.0-36.5 MEDENT ([facility]) Mean Corpuscular Hemoglobin 30.8 pg 27.0-33.0 MEDENT ([facility]) Mean Corpuscular Volume 96.6 fl 80.0-96.0 M EDENT ([facility]) Red Cell Distribution Width 14.6 % 11.5-14.5 MEDENT ([facility]) Platelet Count, Automated 383 10 150-450 MED[facility] ([facility]) Lymph % 22.5 % 24.0-44.0 [facility] Neutrophils % 68.7 % 36.0-66.0 [facility] Manati % 7.2 % 2.0-8.0 [facility] Immature Granulocyte % 0.4 % 0-3.0 [facility] ([facility]) Eos % 0.4 % 0.0-3.0 [facility] Baso % 0.8 % 0.0-1.0 [facility] Nucleated Red Blood Cell % 0.0 % 0-0 MED ENT ([facility]) Neutrophils # 7.2 10 1.5-8.5 [facility] ([facility] Lymph # 2.4 10 1.5-5.0 [facility] Baso # 0.1 10 0.0-0.2 [facility] Eos # 0.0 10 0.0-0.5 [facility] ([facility] Manati # 0.8 10 0.0-0.8 [facility]) ID Date Data Source [id number] 11/13/2020 12:31:00 AM EDT [facility] Name Value Range Interpretation Code Description Data Viki rce(s) Supporting Document(s) SARS coronavirus 2 RNA [Presence] in Res piratory specimen by BRO with probe detection NEGATIVE [facility] This lab was ordered by [facility] a nd reported by [facility]. ID Date Data Source [id number] 11/12/2020 07:14:00 PM EDT MEDENT ([facility]) Name Value Range Interpretation Code Description Data Viki rce(s) Supporting Document(s) White Blood Count 8.8 10 4.0-10.0 MEDENT ([facility]) Hemoglobin 12.2 g/dL 12.0-15.5 [facility] Red Blood Count 4.03 10 4.00-5.40 MEDENT ([facility]) Mean Corpuscular Volume 94.8 fl 80.0-96.0 MEDENT ([facility]) Mean Corpuscular Hemoglobin 30.3 pg 27.0-33.0 ME DENT ([facility]) Hematocrit 38.2 % 36.0-47.0 [facility] Mean Corpuscular HGB Conc 31.9 g/dL 32.0-36.5 MEDE NT ([facility]) Red Cell Distribution Width 14.4 % 11.5-14.5 ME DENT ([facility]) Neutrophils % 69.2 % 36.0-66.0 MEDENT ([facility]) Lymph % 21.0 % 24.0-44.0 [facility]) Platelet Count, Automated 304 10 150-450 MEDE NT ([facility]) Manati % 7.6 % 2.0-8.0 [facility] Eos % 1.3 % 0.0-3.0 [facility] Baso % 0.6 % 0.0-1.0 [facility] Immature Granulocyte % 0.3 % 0-3.0 MEDENT ([facility]) Nucleated Red Blood Cell % 0.0 % 0-0 MED ENT ([facility]) Neutrophils # 6.1 10 1.5-8.5 MEDENT ([facility]) Lymph # 1.8 10 1.5-5.0 [facility] [place] # 0.7 10 0.0-0.8 [facility] Baso # 0.1 10 0.0-0.2 [facility] Eos # 0.1 10 0.0-0.5 [facility] ID Date Data Source [id number] 11/12/2020 07:14:00 PM EDT MEDENT ([facility]) Name Value Range Interpretation Code Description Data Viki rce(s) Supporting Document(s) C reactive protein [Mass/volume] in Serum or Plasma by High sensitivity method 3.05 mg/dL 0.00-0.30 MEDENT ([facility] ) ID Date Data Source [id number] 11/12/2020 07:14:00 PM EDT MEDENT ([facility]) Name Value Range Interpretation Code Description Data Viki rce(s) Supporting Document(s) Glucose, Fasting 78 mg/dL 70-100 MEDENT ([facility]) Blood Urea Nitrogen 6 mg/dL 7-18 MEDENT ([facility]) Creatinine For GFR 0.70 mg/dL 0.55-1.30 MEDENT ([facility]) Glomerular Filtration Rate Laboratory test result MEDENT ([facility]) <content>Units are mL/min/1.73 m2</content>
<content></content>
<content>Chronic Kidney Disease Staging per NKF:</content>
<content></content>
<content>Stage I & II GFR >=60 Normal to Mildly Decreased</content>
<content>Stage III GFR 30- 59 Moderately Decreased</content>
<content>Stage IV GFR 15-29 Severely Decreased</content>
<content>Stage V GFR <15 Very Little GFR Left</content>
<content>ESRD GFR <15 on EVENT EXECUTIVE</content>
<content></content> Potassium Serum 5.9 meq/L 3.5-5.1 MEDENT ([facility]) Testing was performed on a hemolysed spe cimen. Suggest recollection of specimen for more accurate test results. Sodium Level 138 meq/L 136-145 MEDENT ([facility]) Carbon Dioxide Level 24 meq/L 21-32 [facility] Anion Gap 7 meq/L 8-16 MED[facility] ([facility]) Chloride Level 107 meq/L 98-107 MEDENT ([facility]) Calcium Level 7.8 mg/dL 8.8-10.2 MEDENT ([facility]) ID Date Data Source [id number] 11/12/2020 07:14:00 PM EDT MEDENT ([facility]) Name Value Range Interpretation Code Description Data Viki rce(s) Supporting Document(s) Erythrocyte sedimentation rate by Westergren method 37 mm/hr 0-30 MEDENT ([facility]) ID Date Data Source [id number] 11/10/2020 01:59:00 PM EDT MEDENT ([facility]) Name Value Range Interpretation Code Description Data Viki rce(s) Supporting Document(s) Erythrocytes [#/volume] in Blood by Automated count 3.89 x10*6/UL 4.2 0-6.30 MEDENT ([facility]) Leukocytes [#/volume] in Blood by Automated count 9.2 x10*3/UL 4.1-10 .9 MEDENT ([facility]) Hemoglobin [Mass/volume] in Blood 12.1 g/dL 12.0-18.0 MEDENT ([facility]) MCV 90.2 fL 80.0-97.0 [facility] [facility] MCH 31.2 pg 26.0-32.0 MEDENT ([facility]) Hematocrit [Volume Fraction] of Blood by Automated count 35.1 % 3 7.0-51.0 [facility] ([facility]) Platelets [#/volume] in Blood by Automated count 386 x10*3/UL 140-440 [facility] ([facility]) Erythrocyte distribution width [Ratio] by Automated count 14.1 % 11.6-13.7 [facility] ([facility]) MCHC 34.5 g/dL 31.0-38.0 [facility] ([place] [facility]) Mid % 4.7 % 1.7-9.3 [facility] ([place] [facility]) Lymph % 17.1 % 10.0-58.5 [facility] ([place] [facility]) MPV 7.9 FL 7.8-11.0 [facility] ([place] [facility]) Mid # 0.5 x10*3/UL 0.1-0.6 [facility] ([facility]) Neut % 78.2 % 37.0-92.0 [facility] ([place] [facility]) Lymph # 1.5 x10*3/UL 0.6-4.1 [facility] ([facility]) Neut # 7.2 x10*3/UL 2.0-7.8 [facility] ([facility]) ID Date Data Source [id number] 11/10/2020 01:59:00 PM EDT [facility] ([facility]) Name Value Range Interpretation Code Description Data Viki rce(s) Supporting Document(s) Glucose [Mass/volume] in Serum or Plasma 79 mg/dL 74-99 [facility] ([facility]) 100-125 mg/dL PRE-DIABETES/FASTING >126 mg/dL DIABETES/FASTING Urea nitrogen [Mass/volume] in Serum or Plasma 7 mg/dL 7-18 [facility] ([facility]) Creatinine 0.8 mg/dL 0.6-1.3 [facility] ([facility]) Sodium [Moles/volume] in Serum or Plasma 137 meq/L 136-145 [facility] ([facility]) Potassium [Moles/volume] in Serum or Plasma 3.6 meq/L 3.5-5.1 [facility] ([facility]) Chloride [Moles/volume] in Serum or Plasma 103 meq/L 98-107 [facility] ([facility]) Carbon dioxide, total [Moles/volume] in Serum or Plasma 30 meq/L 21 -32 [facility] ([facility]) Glomerular filtration rate/1.73 sq M pre dicted among blacks [Volume Rate/Area] in Serum or Plasma by Creatinine-based formula (MDRD) Laboratory test result [facility] ([facility]) <content>CHRONIC KIDNEY DISEASE STAGING PER NKF</content>
<content></content>
<content>STAGE I & II GFR >= 60 NORMAL TO MILDLY DECREASED</content>
<content>STAGE III GFR 30-59 MODERATELY DECREASED</content>
<content>STAGE IV GFR 15-29 SEVERELY DECREASED</content>
<content>STAGE V GFR <15 VERY LITTLE GFR LEFT</content>
<content>ESRD GFR <15 ON EVENT EXECUTIVE</content>
<content></content> Glomerular filtration rate/1.73 sq M pre dicted among non-blacks [Volume Rate/Area] in Serum or Plasma by Creatinine-based formula (MDRD) Laboratory test result [facility] ([facility] ) Calcium [Mass/volume] in Serum or Plasma 8.5 mg/dL 8.5-10.1 [facility] ([facility]) ID Date Data Source [id number] 11/03/2020 10:30:00 AM EDT [facility] Name Value Range Interpretation Code Description Data Viki rce(s) Supporting Document(s) SARS-CoV-2 (COVID-19) RNA [Presence] in Respiratory specimen by BRO with probe detection Not Detected [facility] This lab was ordered by [facility] and reported by [facility] [employer]. ID Date Data Source [id number] 11/01/2020 06:49:00 PM EDT [facility] ([facility]) Name Value Range Interpretation Code Description Data Viki rce(s) Supporting Document(s) Laboratory test finding (navigational concept) 41.0 % 38.0-51.0 [facility] ([facility]) Laboratory test finding (navigational concept) 137 meq/L 136-145 [facility] ([facility]) Laboratory test finding (navigational concept) 82 mg/dL 70-105 [facility] ([facility]) Laboratory test finding (navigational concept) 3.4 meq/L 3.5-5.1 [facility] ([facility]) Laboratory test finding (navigational concept) 21.0 MM/L 23.0-27.0 [facility] ([facility]) Laboratory test finding (navigational concept) 105 meq/L 98-109 [facility] ([facility]) Laboratory test finding (navigational concept) 4.7 mg/dL 4.5-5.3 [facility] ([facility]) Laboratory test finding (navigational concept) 5 mg/dL 8-26 [facility] ([facility]) Laboratory test finding (navigational concept) 0.6 mg/dL 0.6-1.3 [facility] ([facility]) ID Date Data Source [id number] 11/01/2020 06:44:00 PM EDT [facility] ([facility]) Name Value Range Interpretation Code Description Data Viki rce(s) Supporting Document(s) White Blood Count 10.2 10 4.0-10.0 [facility] ([facility]) Red Blood Count 4.22 10 4.00-5.40 [facility] ([facility]) Hemoglobin 12.8 g/dL 12.0-15.5 [facility] [place] [facility] Hematocrit 39.5 % 36.0-47.0 [facility] [place] [facility] Mean Corpuscular Volume 93.6 fl 80.0-96.0 [facility] ([facility]) Mean Corpuscular HGB Conc 32.4 g/dL 32.0-36.5 [facility] ([facility]) Mean Corpuscular Hemoglobin 30.3 pg 27.0-33.0 [facility] ([facility]) Platelet Count, Automated 317 10 150-450 [facility] ([facility]) Neutrophils % 68.2 % 36.0-66.0 [facility] ([facility]) Red Cell Distribution Width 14.2 % 11.5-14.5 [facility] ([facility]) Lymph % 23.4 % 24.0-44.0 [facility] [facility]) Eos % 0.4 % 0.0-3.0 [facility] ([place] [facility]) [place] % 6.9 % 2.0-8.0 [facility] [facility]) Immature Granulocyte % 0.4 % 0-3.0 [facility] ([facility]) Baso % 0.7 % 0.0-1.0 [facility] ([place] [facility]) Neutrophils # 7.0 10 1.5-8.5 [facility] ([facility]) Nucleated Red Blood Cell % 0.0 % 0-0 [facility] ([facility]) Eos # 0.0 10 0.0-0.5 [facility] ([place] [facility]) [place] # 0.7 10 0.0-0.8 [facility] ([place] [facility]) Lymph # 2.4 10 1.5-5.0 [facility] [facility]) Baso # 0.1 10 0.0-0.2 [facility] ([facility]) ID Date Data Source [id number] 11/01/2020 06:44:00 PM EDT [facility] ([facility]) Name Value Range Interpretation Code Description Data Viki rce(s) Supporting Document(s) Inr 0.87 [facility] ([facility]) THERAPUTIC HUMAN INR VALUES INDICATIONS NORMAL RANGES PROPHYLAXIS/TREATMENT OF: VENOUS THROMBOSIS 2.0-3.0 PULMONARY EMBOLISM 2.0-3.0 PREVENTION OF SYSTEMIC EMBOLISM FROM: TISSUE HEART VALVES 2.0-3.0 ACUTE MYOCARDIAL INFARCTION 2.0-3.0 VALVULAR HEART DISEASE 2.0-3.0 ATRIAL FIBRILLATION 2.0-3.0 MECHANICAL VALVES(HIGH RISK) 2.5-3.5 RECURRENT MYOCARDIAL INFARCTION 2.5-3.5 Prothrombin Time 12.2 s 12.7-14.5 [facility] ([facility]) Partial Thromboplastin Time 25.9 s 25.9-37.0 [facility] ([facility]) ID Date Data Source [id number] 11/01/2020 10:46:00 AM EDT [facility] ([facility]) Name Value Range Interpretation Code Description Data Viki rce(s) Supporting Document(s) Appearance, Urine Laboratory test result [facility] ([facility]) Color, Urine Laboratory test result [facility] ([facility]) PH,Urine 6.0 units 5.0-9.0 [facility] ([facility]) Protein, Urine Auto Laboratory test result [facility] ([facility]) Specific Flom Urine Auto 1.003 1.002-1.035 [facility] ([facility]) Glucose, Urine (Ua) Auto Laboratory test result [facility] ([facility]) Ketone, Urine Auto Laboratory test result [facility] ([facility]) Urobilinogen, Urine Auto 0.2 mg/dL 0.0-2.0 [facility] ([facility]) Bilirubin, Urine Auto Laboratory test result [facility] ([facility]) Nitrite, Urine Auto Laboratory test result [facility] ([facility]) Leukocyte Esterase, Urine Auto Laboratory test result [facility] ([facility]) WBC, Urine Auto 4 /HPF 0-3 [facility] ([facility]) Blood, Urine Blood Laboratory test result [facility] ([facility]) Bacteria, Urine Auto Laboratory test result [facility] ([facility]) RBC, Urine Auto 1 /HPF 0-3 [facility] ([facility]) Mucus, Urine Laboratory test result [facility] ([facility]) Squamous Epithelial Cell Ur AU 3 /HPF 0-6 [facility] ([facility]) Hyaline Cast, Urine Auto 0 /LPF 0-1 [facility] ([facility]) ID Date Data Source [id number] 11/01/2020 10:46:00 AM EDT [facility] ([facility]) Name Value Range Interpretation Code Description Data Viki rce(s) Supporting Document(s) Bacteria identified in Urine by Culture Laboratory test result [facility] ([facility]) FULL REPORT IN LAB NOTES ([facility]CW and [facility] ). NO GROWTH ID Date Data Source [id number] 10/04/2020 01:10:00 PM EDT [facility] ([facility]) Name Value Range Interpretation Code Description Data Viki rce(s) Supporting Document(s) Slide Review Laboratory test result [facility] NT ([facility]) Slide and/or specimen referred to Pathol ogist for review. Results of the review are located in the EMR Pathology module under Peripheral Smear when completed. Reason For Review Laboratory test result [facility] ([facility]) WBC/LEUKEMIA/BLAST Source Laboratory test result [facility] ([facility]) PERIPHERAL SMEAR ID Date Data Source [id number] 10/04/2020 01:10:00 PM EDT [facility] ([facility]) Name Value Range Interpretation Code Description Data Viki rce(s) Supporting Document(s) Bacteria identified in Urine by Culture Laboratory test result [facility] ([facility]) FULL REPORT IN LAB NOTES ([facility] and [facility] ). NO GROWTH ID Date Data Source [id number] 10/04/2020 12:42:00 PM EDT [facility] ([facility]) Name Value Range Interpretation Code Description Data Viki rce(s) Supporting Document(s) Surgical pathology study Laboratory test result [facility] ([facility]) 10/05/2020 - 841 PERPHERAL SMEAR REVIEW Peripheral smear: Leukocytosis associated with an increased in neutrophils. Erythrocytes appear normal in number and are overall normochromic. Nucleated red cells are not seen. Platelet count within normal limits. No blast forms are identified. 10/05/2020 - 841 Signed LUI DONNELLY MD 10/05/2020 0843 ID Date Data Source [id number] 10/04/2020 12:42:00 PM EDT [facility] ([facility]) Name Value Range Interpretation Code Description Data Viki rce(s) Supporting Document(s) Urine PH 6.5 units 5.0-9.0 [facility] ([place] [facility]) Urine Appearance Laboratory test result Abnormal (applies to non-numeric results) [facility] ([facility]) Urine Color Laboratory test result [facility] ([facility]) Urine Blood Laboratory test result Abnormal (applies to non-numeric results) [facility] ([facility]) Urine Leukocytes Laboratory test result Abnormal (applies to non-numeric results) [facility] ([facility]) Specific gravity of Urine 1.005 1.005-1.030 [place] [facility] ([facility]) Urine Protein Laboratory test result 0-0 [facility] ([facility]) Glucose [Presence] in Urine [facility]) Urine Nitrite Laboratory test result [facility] ([facility]) Urine Urobilinogen 0.2 mg/dL 0.2-1.0 [facility] ([facility]) Urine Ketone Laboratory test result [facility] ([facility]) Bilirubin.total [Mass/volume] in Serum or Plasma Laboratory test resu lt [facility] ([facility]) ID Date Data Source [id number] 10/04/2020 12:42:00 PM EDT [facility]) Name Value Range Interpretation Code Description Data Viki rce(s) Supporting Document(s) Glucose [Mass/volume] in Serum or Plasma 84 mg/dL 74-99 [facility] ([facility]) 100-125 mg/dL PRE-DIABETES/FASTING >126 mg/dL DIABETES/FASTING Sodium [Moles/volume] in Serum or Plasma 133 meq/L 136-145 [facility] ([facility]) Urea nitrogen [Mass/volume] in Serum or Plasma 9 mg/dL 7-18 [facility] ([facility]) Creatinine 0.8 mg/dL 0.6-1.3 [facility] ([facility]) Carbon dioxide, total [Moles/volume] in Serum or Plasma 30 meq/L 21 -32 [facility] ([facility]) Chloride [Moles/volume] in Serum or Plasma 97 meq/L 98-107 [facility] ([facility]) Calcium [Mass/volume] in Serum or Plasma 9.0 mg/dL 8.5-10.1 [facility] ([facility]) Potassium [Moles/volume] in Serum or Plasma 3.7 meq/L 3.5-5.1 [facility] ([facility]) Glomerular filtration rate/1.73 sq M pre dicted among non-blacks [Volume Rate/Area] in Serum or Plasma by Creatinine-based formula (MDRD) Laboratory test result [facility] ([facility] ) Glomerular filtration rate/1.73 sq M pre dicted among blacks [Volume Rate/Area] in Serum or Plasma by Creatinine-based formula (MDRD) Laboratory test result [facility] ([facility]) <content>CHRONIC KIDNEY DISEASE STAGING PER NKF</content>
<content></content>
<content>STAGE I & II GFR >= 60 NORMAL TO MILDLY DECREASED</content>
<content>STAGE III GFR 30-59 MODERATELY DECREASED</content>
<content>STAGE IV GFR 15-29 SEVERELY DECREASED</content>
<content>STAGE V GFR <15 VERY LITTLE GFR LEFT</content>
<content>ESRD GFR <15 ON EVENT EXECUTIVE</content>
<content></content> ID Date Data Source [id number] 10/04/2020 12:42:00 PM EDT [facility] ([facility]) Name Value Range Interpretation Code Description Data Viki rce(s) Supporting Document(s) Erythrocytes [#/volume] in Blood by Automated count 4.56 x10*6/UL 4.2 0-6.30 [facility] ([facility]) Leukocytes [#/volume] in Blood by Automated count 13.3 x10*3/UL 4.1-1 0.9 [facility] ([facility]) NOTE: RESULT VERIFIED. Hemoglobin [Mass/volume] in Blood 13.9 g/dL 12.0-18.0 [facility] ([facility]) MCV 90.1 fL 80.0-97.0 [facility] ([place] [facility]) MCH 30.5 pg 26.0-32.0 [facility] ([place] [facility]) Hematocrit [Volume Fraction] of Blood by Automated count 41.1 % 3 7.0-51.0 [facility] ([facility]) Erythrocyte distribution width [Ratio] by Automated count 13.4 % 11.6-13.7 [facility] ([facility]) Platelets [#/volume] in Blood by Automated count 386 x10*3/UL 140-440 [facility] ([facility]) MCHC 33.8 g/dL 31.0-38.0 [facility] ([place] [facility]) Mid % 5.2 % 1.7-9.3 [facility] ([place] [facility]) MPV 7.7 FL 7.8-11.0 [facility] ([place] [facility]) Lymph % 16.3 % 10.0-58.5 [facility] ([place] [facility]) Mid # 0.8 x10*3/UL 0.1-0.6 [facility] ([facility]) Neut % 78.5 % 37.0-92.0 [facility] [facility] Lymph # 2.1 x10*3/UL 0.6-4.1 [facility] ([facility]) Neut # 10.4 x10*3/UL 2.0-7.8 [facility] ([facility]) ID Date Data Source [id number] 09/30/2020 11:39:00 AM EDT [facility] ([facility]) Name Value Range Interpretation Code Description Data Viki rce(s) Supporting Document(s) Thyrotropin [Units/volume] in Serum or Plasma by Detec tion limit <= 0.05 mIU/L 0.38 uIU/mL 0.36-3.74 [facility] ([facility] ) Thyroxine (T4) free [Mass/volume] in Serum or Plasma 1.21 ng/dL 0.76- 1.46 [facility] ([facility]) ID Date Data Source [id number] 09/30/2020 11:39:00 AM EDT [facility] ([facility]) Name Value Range Interpretation Code Description Data Viki rce(s) Supporting Document(s) Cholesterol [Mass/volume] in Serum or Plasma 163 mg/dL 131-200 [facility] ([facility]) Cholesterol in HDL [Mass/volume] in Serum or Plasma 72 mg/dL 35-60 [facility] ([facility]) Triglyceride [Mass/volume] in Serum or Plasma 93 mg/dL 30-150 [facility] ([facility]) Cholesterol in LDL [Mass/volume] in Serum or Plasma by calcu lation 72 CALC 50-159 [facility] ([facility]) ID Date Data Source [id number] 09/30/2020 11:39:00 AM EDT [facility] ([facility]) Name Value Range Interpretation Code Description Data Viki rce(s) Supporting Document(s) Glucose [Mass/volume] in Serum or Plasma 103 mg/dL 74-99 [facility] ([facility]) 100-125 mg/dL PRE-DIABETES/FASTING >126 mg/dL DIABETES/FASTING Urea nitrogen [Mass/volume] in Serum or Plasma 8 mg/dL 7-18 [facility] ([facility]) Creatinine 0.9 mg/dL 0.6-1.3 [facility] ([place] [facility] Sodium [Moles/volume] in Serum or Plasma 131 meq/L 136-145 [facility] ([facility]) NOTE: RESULT VERIFIED. Chloride [Moles/volume] in Serum or Plasma 97 meq/L 98-107 [facility] ([facility]) Potassium [Moles/volume] in Serum or Plasma 4.3 meq/L 3.5-5.1 [facility] ([facility]) Calcium [Mass/volume] in Serum or Plasma 9.7 mg/dL 8.5-10.1 [facility] ([facility]) Carbon dioxide, total [Moles/volume] in Serum or Plasma 24 meq/L 21 -32 [facility] ([facility]) Total Bilirubin 0.5 mg/dL 0.2-1.0 [facility] ([facility]) Alkaline phosphatase isoenzyme [Units/volume] in Serum or Pl asma 109 mg/dL 46-116 [facility] ([facility]) Aspartate aminotransferase [Enzymatic activity/volume] in Serum or Plasma 23 U/L 15-37 [facility] ([facility] ) Proteinase 3 Ab [Units/volume] in Serum 7.0 g/dL 6.4-8.2 [facility] ([facility]) Albumin [Mass/volume] in Serum or Plasma 3.9 g/dL 3.4-5.0 [facility] ([facility]) Alanine aminotransferase [Enzymatic activity/volume] in Seru m or Plasma 31 U/L 12-78 [facility] ([facility]) A/G Ratio 1.26 CALC 1.00-1.90 [facility] ([place] [facility]) Glomerular filtration rate/1.73 sq M pre dicted among non-blacks [Volume Rate/Area] in Serum or Plasma by Creatinine-based formula (MDRD) Laboratory test result [facility] ([facility] ) Glomerular filtration rate/1.73 sq M pre dicted among blacks [Volume Rate/Area] in Serum or Plasma by Creatinine-based formula (MDRD) Laboratory test result [facility] ([facility]) <content>CHRONIC KIDNEY DISEASE STAGING PER NKF</content>
<content></content>
<content>STAGE I & II GFR >= 60 NORMAL TO MILDLY DECREASED</content>
<content>STAGE III GFR 30-59 MODERATELY DECREASED</content>
<content>STAGE IV GFR 15-29 SEVERELY DECREASED</content>
<content>STAGE V GFR <15 VERY LITTLE GFR LEFT</content>
<content>ESRD GFR <15 ON EVENT EXECUTIVE</content>
<content></content> ID Date Data Source [id number] 09/30/2020 11:39:00 AM EDT [facility] ([facility]) Name Value Range Interpretation Code Description Data Viki rce(s) Supporting Document(s) Leukocytes [#/volume] in Blood by Automated count 13.2 x10*3/UL 4.1-1 0.9 [facility] ([facility]) NOTE: RESULT VERIFIED. Hemoglobin [Mass/volume] in Blood 13.3 g/dL 12.0-18.0 [facility] ([facility]) Erythrocytes [#/volume] in Blood by Automated count 4.37 x10*6/UL 4.2 0-6.30 [facility] ([facility]) MCV 90.4 fL 80.0-97.0 [facility] ([place] [facility]) Hematocrit [Volume Fraction] of Blood by Automated count 39.6 % 3 7.0-51.0 [facility] ([facility]) MCH 30.4 pg 26.0-32.0 [facility] ([place] [facility]) Erythrocyte distribution width [Ratio] by Automated count 13.7 % 11.6-13.7 [facility] ([facility]) Platelets [#/volume] in Blood by Automated count 381 x10*3/UL 140-440 [facility] ([facility]) MCHC 33.6 g/dL 31.0-38.0 [facility] [facility] MPV 7.9 FL 7.8-11.0 [facility] [facility] Lymph % 8.1 % 10.0-58.5 [facility] [facility] Mid % 2.9 % 1.7-9.3 [facility] [facility] Lymph # 1.0 x10*3/UL 0.6-4.1 [facility] ([facility]) Neut % 89.0 % 37.0-92.0 [facility] [facility] Neut # 11.8 x10*3/UL 2.0-7.8 [facility] ([facility]) Mid # 0.4 x10*3/UL 0.1-0.6 [facility] ([facility]) ID Date Data Source [id number] 07/10/2020 11:30:00 AM EDT [facility] Name Value Range Interpretation Code Description Data Viki rce(s) Supporting Document(s) SARS-CoV-2 (COVID-19) RNA [Presence] in Respiratory specimen by BRO with probe detection Not Detected [facility] This lab was ordered by [facility] and reported by [facility] [employer]. ID Date Data Source [id number] 06/22/2020 03:28:46 PM EDT [facility] Name Value Range Interpretation Code Description Data Viki rce(s) Supporting Document(s) EKG [facility] QUWBDw3eFsVWNxJie6XqXpGrTTIeKN2vvrp3C1V2qBDsW8LtfOAkz4jwN3JtX0JxGZBtYDPRVU1ReGDk jb2 [file] +5dSs/[employer]/8DZy9AxW9Ksl/3FrkMI8jPPq9ULw2iFC u8c6su9nX7Kovi6zmCGkxCnAS38v1tY1boIKLufknlQxQg4n5jM2uqUFUauxiqQCn10Jyb4Trx1FJYr0 5XNc58vsdErOza1T1qJfiX6zxKhIpr9wxwTcHeb1AAt5FmLHAi/EoVQ3fmChYktmyWWiF+md8KlKl02u aWIkiwReWtWx/Eh5aU+DrZjerWi75a4VPggEEKyHZM kicZKAHMYTWceiTj/Bnmo5qwNJNBPP1bkJF8QYWnyzxmcMR4xH4OYDp88gILpzov7H867YY02aUUdbdH M/IU24VoCWStdTDZT8sBHGZn1pGsqJVSJt7nGa+DsoGnk2CmQZsDpgLGWA9QFOF0CrsYwZdh5P5pAZwj R8Gg/iafXSxFa5WunecHWgNbhjVJ6Ui3zxsAsxVseX IOhppMliRIFH3aDZfkhEMAMXSLL2l//j//O//rv7LJH/jMr/+v/99//6/8r/+7//9f//7//4X9WX+9/7 Rd6+3Bf/7+rL/Q/Q6Cdid6v18gwW/PF3o7Y8t1jUx/evkN9eTqZOe1af0hX7k3a+iTOgiLT0z4/cE/X5 lRv1+ZW76/DD6oCVxPM/6LKMKSY4HXj4Ka8qAMhFxB clf6QmbnlAfZjnW+BsuD2AfjT3qmx2l6QL+Renzybiv4r1GhXUR/TCBkOhHV2mxL3yW+6pz6/cU5//k/ tPv/q9CJxpCI/g/MNS+Pxh/PQl1spBE9kPEi7h1egmS5D1n8ilPAPsytzrCTN8eFTujWl0XbCDDEn7Ec +m449Jzc98R7diNlklnPsseZJVURH86TJrlBB7pPU/ z/uEtnoK2rQCrJQyx+4AqM57jRQc1NwqwKrTuxnx3kkWv04g+WHFd+C1CDpiFgwk/j3iVwNiqLKf7onQ nghikgs8uSP7C7yRL3pf831P+aUc5NH0uej0PNcsHluQHZp4BemAwQghA+QuXO+y3xy+Wx89t+/ORz+P d+Pjn8P/rtL+cK9j/vCqz6/cdT/9T3vr194dhk3+5d 3yvNdI5t++sXa/crM+/3QkEBe3j6z/cLmGGziBz+A/e/AKTqvBGtiCWvByNFH70yqf8ISJfDCIh0x4ez k4ckirnhc7ns/uxg/uYsp3cwmIi2fjITl8Rpwqwih7+t16tzV+MUJI0C3c8rva7e/2c3EzucG2gFX/C7 kHcg/oQwotm7J6nl8v5lX05a5nZb/q2k/iO+enj5W9 seosiiDxx6Daf9P+n/lcIuS60u6SdmU72+MPo78W0jdx6h4jV0/fvb4bF+39SpiGwu8/dapft/18Kit7 MkE8614+vYP0boVoMt+iPp/rNRl/w/XKDhKIvdFVioX64CZmoMEz36+EIyEQiAPPaJLtAKW8jZGT6hMb Slzd4tg45m0vmzS5sSKw/G/i8/FnwFmcduXtgPVx3l 8fn7RVsbpc/6dhjX0oQWcdUxR1ZPbizABhPnfOnOxZ1+/dfDzlfg5Fc60cMs8gO/OMzaKY2bCGWG1rC8 bLLNryzJuO3IDskZlTZCsHzfNm3irkuzj+lcG/MvhXBv/JFaAD8iqF0d/8qwX/eq4cc0rtyYa2fL90vZ jnKq70bvlGSny8LseOzTL90A2G/OngAmhpKxtedE7C YMjVGeelc3+TExYHA88y7MvVs+b+Anv1dBkBUe+EQUNhw4fdbMq6v6CZx8DY+Srinivas/MwcsB62lLh/6vpU azk+D3w+/tUq/8rrO+iqd0pdw/btsVz+NcMkp5s43WkXKmlHs2/xibO6AkdyqE24pqyn3f8/2rOPVw4j Dbys2Qj7ed45O5olNFVV8xlsj+Uqj9I4qQejQNhgw6 /N/+u+1F8HBBdID3RYt+AEPoPLXjWWkZWQW/nw7UQC6RKerRgU2CUD8a0jpwcN1bx/B9Z4keRPh9fg// QdXokwtw5p0xiN3ns99dn+e87c0L/LlXUj/y73+evEw6uft8x6e/vPN+po835oby9d1I2kuqu//aUb8m 9/ycteXf/BCkd9p5fzZ7r056ELmodacLjbzZ2taRFf uYyf4/ChTSqJfI2QHGrOSUqMMsHbfm4azTZz4214A37DQWTLJZGMuq2rZGBKsm9jAst5nG2V68ttrCdv N8C8jCaXApIc9VD7RmvubW5k6cYu4ngbfK/ADhzAuL+O++vzJ5y4kWPEtwfj0Er3za7yn4/l8K8c/pVH As/71/fEcxz+le95H/Michelle+b4GIyvKY/8bwLP+8jhXz n8K4d/2WivH39bp758nUVMxsFy2NXliQNgte/7EWAFNmDILf+fdKPt4XOsqsNfVfB3u3T/SxNqPn6IaG 8K+FcB/ovrOfB5p6G0aoSgzwNjk6kwOU/yDISvss545M2W69kb3UGKYPbTDRQMeES3uYNWWwydtK6RNn vB1gQSPbTIfvchH2Yhu/p8/+RGSXXOrKokGm7pfd+6 MZYo/6qx/nySKP/K6/P1iy9F+Pv6sYDs/JxYGziBz+Dyr+47K8q/WpYCa7mF80rqx9E+d+AYfcq/unGw 8ImbhU/4KOI4eAs7kaNOKvoTcA4K+vlh6mjaDcW3u1m/siMEPyDvQWHKBbAWDwNYdyI02JAzcaG39f7j A7DHMkMUozHxP604EPJoY6YAq+t67/fP+JNxBBjjfG br3imn165YDWnMK8h7NP3FXpwJpc/ZyIN1S9g5o31hE686/Sd8Ev477B+UL8fgSjd8aACbT843LuGL0h /FAcC6fIOclOWO8zOZNKbES/3PnoNqLLZOs5dYU70ViyvkRdd7qci8wbx7fqr8jkhyr4372Ca7bqI+tR G/9rieyrHyst06yCl9W5Os2IsG8weDGEaIKIpXC/DY 571mHbpXAmNe+QMswPM+2j7vo+3I5IPJGz8j+7w9gc/gsleNBXjWvztm/btjATtwAG/hYZ17jxV/uLcA Q+7b27yn1ygcj/K2KzWH63h16d3t/+8ZnGOfN/vzuUypVERX5RRUfWFNxMt2iB2bjS9EjcM6QN4W8RX3 Z6DY4M9KF9uBHn2qRIihvA5I7/Xm2UB5635270PTPw [file] ++llp5R8v9k1ocPHc2v6jz+35/0/3652j7/nHa56tI iZnPbu+3WMa+P7z8/hCO20MTI5ne6l7sO7BQi9+4vaflTlecVBo/DjIL0KC391mCNR/NamPXJ/uTQ3f7 v7vP/5y7k0HazEiB1V8VSN4QG7y4hw4gwDphxEeg33W1z9RC28Cu8d4uT63/398+/qLJe4mtf64mJmxs TpKyImRshey16VYzee5LlhXhMq6empw42x7t+Can3c 32/bMLZyWUX/j5y/jesi/QpUJnWjrl5NG8x+/t1kP50Fy86BP8RXGNDaJ7hiku/caZ9opR6yzsCeCuzldZ PH3+0Cg2m7R/Vt1cg9I8pl3jaBeb2AeqdRVz1ndW6vTCyuncOmeJUiNU0FEN8hx3OsNuH4GDKmp3XiJF xkZHn9hREaZRfapdHxf0OdatqcR6Sat1GcOuHrJMSa EcJgLes4ULGaPyM6fZRoDvNyYWMhG3NfFCRtPgM1SgNqFXQVTN1GCAAupeTyRvGqYXQ+ZhZzKH0dqhpb SENhs9NrZEbjWDbuMRPfK0G9iSdpRNCfL0IzhR54BLScU0MpxqV1WOA3KJTaWyLgNSOenKWcGPGzTRW+ SpBlTG6okjicGVZcg4ZiLFcaOAR5sE5vQQhXOIGZWA vFJSxcQtK0l11duoZYBDOjBAXjRY2LtxWrtYeyjaIffHKmHQJ3MyMbDKX7OEAiXSJ9SYVRNTZtPDQsYY RePUJiB5OghOdhWCrGUIJFTCkWNIywMoMts4Y7JGProkXKDkaJTLhuDkVFHIZaBRZiHlZ0JNCyWAQwY0 YehaQriMPhBWAAAUrcOwpjULIbuZ9hqLhfJ2EhBJL8 l7DuUH2RP1AiNOKwKOMIVJN0c8CrLFKgvmqhyhtrHyTeIXIuTYOrPQQqBM5Cvz1pjWOpzsOcYDYNWDiz BebwQS3swWxxjwvpK7MxhWQrTIR+CkFxMF2vfi9+CxTwBIUkRau3VJLyROcpHMGySHAaXTOpM0yoVVTs TmIrESDeAsImFP9Xt0QziGNkUg7ekpApZhlBhMTbNe ghKTQfOSMaBBYvOgYQHJAoMBLvZFHkTSC3QAGlVZUpZLekDQSsHMA1KMd4NMUkERLgVT1dByJiEKHrBE e4WARoZUVbXOUdltTBECLqPTM3EBusQINmPIEwCXZoHJzkTSKfGDAgBNIdOIY7CQH4YWTzGhChLCOtGT NiLPEfYJIwMAWqhcEWSPFuVHLzJZF8AXGzSIZoCCMf GBxdKWOkRETaZPadBTVtZTAgDF2nPxFyQIWgOBJlBGlyUCFqSYXmvtLCRNOmHZRgBDBnGGUwLOIdBWWp JDzfRYXfPWYdVDCgEWFqVUZeCP9mAhEdVBRwLJU8ONCgURNlLNJoqcXBAQDbXXVsPWw6DLUbOUVeVBBt CQwlQTRbKQSpART1BTEcSRAiLO5mRyXmAHBcZXS4Vx MkRCEiBCCvxtIYSAUqHAHrQKA7GaUqNFTmZWPjWDyiLZRuUVHcHBvqQMDgNMYgZK6iOvAfFCCvDNMbKN xvTBCwZMWkofEZLFWcTUXlJRMrKwWtLQZsEHVbEJtwVSRaTZY2VgTzMJMrWCThXN7mJkDqESRcNTX2AC kgMDAwMDAgbiAKMDAwMDAwMTczNCAwMDAwMCBuIAow YYQbAEBeWPX0LSMeSCSiTE9lImBcDARcBCFfQOVnRdY0PrBmQbESqJFvnSjpliz2ZSumW3e2MQInBHpf DV6wioMvYRVnCeebJf8vuGH1YJMvCqxINz1Lh0NtviN2ggAvGgU5GqUhBbRmLP1V ID Date Data Source [id number] 06/22/2020 01:40:29 PM EDT [facility] Name Value Range Interpretation Code Description Data Viki rce(s) Supporting Document(s) &PDF [facility] VVBXSe5bStQFBhQx30/CXRwnSFHns4KmLTezUOl0WZrjMTSbH1ZhrAjmPEyVAVsNZCiASsINFQXjXUQ8 waW [file] b3gUiYidAXEReR+2LTi9p5oORlSE+UMUhzv3B+dryland farmer [file] 5LMlZHSZK2ACVIL6de+CERTIFIED MEDICAL ASST+fo6Q6wHHubrfe7et/gcFL9HpjMVTK1VdD7ZttjuAUiG9qD4wfEs61c6xGh [file] oeg9SgC3rJHYzXBg4vjTXMNA9IW2FeDubHoE+KIjSXOK+pRj3hNjq3FrkszcILnWqsXNDm0EnG+unloading checker/d [file] AgICAgICAgICAgICAgICAgICAgICAgICAgICAgICAg ULUqMZBjVLUzPIZrMGLiNDJhZGYhRGIsWYNyZNZcZCRqEYZgONRtKIZsZZYfGG9UGWDlHLZuGWBpVLWm ICAgICAgICAgICAgICAgICAgICAgICAgICAgICAgICAgICAgICAgICAgICAgICAgICAgICAgICAgICAg XGNpNOInYSJkJLQwKPQeBBGnEVLfELEmRXWuNS0ROX AgICAgICAgICAgICAgICAgICAgICAgICAgICAgICAgICAgICAgICAgICAgICAgICAgICAgICAgICAgIC MsPFOvMHMhDVRnDPNkSHKnCAIdMNLhBKZzUTIiJOWdSERjPLFkER2RYANjJNNrNNZmCWHoSBUhFBCuKW AgICAgICAgICAgICAgICAgICAgICAgICAgICAgICAg JYOkSVNfESUzTWGtGRZbFRKcMANlEQWoEHWdYYCyZXHzBGAnLQUlOIWsRQCxHUBzGQ3NFRLjFMLpWHUe ICAgICAgICAgICAgICAgICAgICAgICAgICAgICAgICAgICAgICAgICAgICAgICAgICAgICAgICAgICAg ICAgICAgICAgICAgICAgICAgICAgICAgICAgICAgIA 0KICAgICAgICAgICAgICAgICAgICAgICAgICAgICAgICAgICAgICAgICAgICAgICAgICAgICAgICAgIC QeSBPiACWbURBuPBWfGMHkLVQmIDHwAEQlNJZvALMoZQIdNBYvEAUyFK9KQRZtDQQmVXIhTLFeSZVbTE AgICAgICAgICAgICAgICAgICAgICAgICAgICAgICAg XFYfQOJbCINqORZqVXEkLZTcEPLxSRByRTAcJXJvDQRdWLPwKFReNGGkXGLvHPKdVCFnQD0PEUKlDKUw ICAgICAgICAgICAgICAgICAgICAgICAgICAgICAgICAgICAgICAgICAgICAgICAgICAgICAgICAgICAg ICAgICAgICAgICAgICAgICAgICAgICAgICAgICAgIC NyTS4GBJHcMVIwGAHxPKQnLWNyPCVbWCQgQPYxEFGaLMMzXSAvCFTcHGDlUSOkBPHoIVAvDSLzDCMlZZ InCZYfEBGnHHLnQVRcPGRnIEDqXPOvZVEiKOYwIMXjOQJmLCMzZWNlRGHnQJ0ZEDYjNHPbWFPqAYLnYP AgICAgICAgICAgICAgICAgICAgICAgICAgICAgICAg AOVvCAGbFCVuNVSkAFBjDSWxAXWdHPNsHBRhQRShLJQuYLNzPVNkMDOvQLUkFFQxPPMdZKPhLS3VOG62 mZCif8S1EDMzTX9ikeu/Pv6JBTjksfLllGImRA6RLvQrAG2ayb0YYcWmAN9wil4DSJgAZeNlW5X0dXHp UDJqEPUFBiRbN54fCBaiOf25HUisIAEdAdWeJXi3Xy 2LDxDbB4heMVVhXvE1SRIlGhZ2WKJzPaJ7XXAkCaReBDQeABJqQVXtEJZZLZR9KHPjTaFoWJbrIH3Lh8 QgfHJ7VWd+Oi2MFG0ci2FyXOrsMIFoJI9hcu6HAAaMZsRjM9PqqvX4NJX4UJRgWw2YHFSvBVJddEAlID KzZANTVhGhA1AxjS61MOEWXm4+DQplbmRvYmoNCjM1 GTPuw8WfJCe5TL8IAKVfUDh3iEFbRS2hlJQqmTZxWBjlIF7XEYG2JQlyBoFqGPBaM4wZOpEvYQN8BNMi sInxZI8TSzMqV9IavvSrcAScYKKhOQLARg7+UZxccdVvAbfQImU2ELKrs2RbXMl4OT2YRRGpQRhfHZ8Y PGPqeK1ePZlwHT4RJcNmNpZxVRFAFgEyD62onIDtYC u1N7JaMyLnLNCtAhlsHCYiFKivHlKoXLQpGfNoZTgcWE8+ID4+OCarIX8EZDxizqHrQOPyXz4GISZeDP UhFL8tGHVrXVXoO4Y8hYvzGOODBnGsF1mbvnskPM0kCNXlK523eQzdrxCeEKU5MLGjBv4FRSIaUGF0BJ StdNQyClDiWMQERGilZL0GpVJqLUG8mX0aTVgoZLWe URJtM5cVSlLdlDflNO31gCibrpOthEUvTNu+Zu3PUG7zb1XqSMp0nwDpFObjHPC7RGdjHPYqICOtBPVg FZH6GNN8HNFONgBlKCTrAUEpGNitTAArQLXuyu0BHZTlXBR9CQioDEWcASYyMOLeJKgkUVPvPJahOiD6 PAHnEZJxAV2ZMbLeQRXsUKYbJYlyGYXuTEBkyz8POX PiSNVtFkT1PQKiILSeVUXdFIqbLSDkVUAxCpq6GFIuVQZvKG8XLiIqUPIeWXGkNZLiPKLuUXBsrh1UUY WmJYGlNXFoTpKeKSByQPFdKSwqERZzZBE2MaazZLIqTJZqLV4RIgDxPIDxUFJ6GDIdXWOpETTpgk6KHD JgLXXyIUV0KpQkDPAbOTIyFEzfWFEuSJO7TWcmBTNy RMTaSU4EUzXsNGSnBVG6NlciBYOqCWInvn4EACDxNZQbHFh3XFYqVATjGTQaVRjqFWVjVRGpBSV0CRTg ZPChOC9LXuEfETOyOOJhLiVkFVLdVMBdpx7AFHPpHMGtJgP2FUWhRGJjYDMyKLkxNXJvOVRtNcddEFSu UDJlVS9MCxXeZSKnRQB4TeDhBQLrKCRvfz4KCEOxOV UmYSXtFdMaFGApRPYmBWkmHFWnEGD5AdV1JYCqUHZaGI8TTeXdUKAxDHB0MPVgURPhYJWyaw6NAJUoRP ZnBOIaLfWtKBUbCDYzZImsJAZmHNDkROI6OGUoVRYdIX5DQtNqSVOiOjPwZiNkLHMmINVfos8ROMCwEL K1NwZbIQDpQZZfMVAnCQtgRQIiEFDpFZE0SWEtSRXx IM4DFoEwZXXhDsU7TIUfWDEaGSDkrs1OPLWnWXC7ABK9NlTjKOTpNWXxYCtzQCMrIYZ2YlX8UKObAZOf CU6XGpDmOKEiXaLpEdVdHTZhZGZqfi9CPWCpWWG1VPscPkIsKDOjEMQaENhwWMSfUHrmFyU4EYPkRAKj FR2VJmUqCAKcOTA9UkUmIXLbORHuyl5ZUBPuJFP3QW wiUqFdUTGqGFBmJIihWOPhDIbeNDW5WXSdGJRpRW6IObSaBXwxYGSYTsy5ZHveW2i0VKIwAq1RN9Ptu8 WbIiZkMJWXJFrcCE9eqrIyKJTlDy1TO6nABvp9IJN2ExVrSPG1L1M5KzSkRqIeNGE4QGJ5XOM1UGS7Vp 3yFKy0JEkmRkUxBUo4KUFqDVUsQMJ2XdTeTGD4Wxn8 VuimNwFsYZ8BSz4NTlE5LBV9nURdEk9CHOQuWGAZAmRhTB1PYQk= ID Date Data Source [id number] 06/22/2020 12:40:06 PM EDT [facility] Name Value Range Interpretation Code Description Data Viki rce(s) Supporting Document(s) EKG [facility] UDSDBw7gYcZSVdVxj5OeFjWrOXWmJN9jpzs3W3K6aUXsV0GbpJTeu1fxQ9WhQ8GwNQMmJOZBMX9HlHNy jb2 [file] d5O4mnZKLYreLxD88zwRkZz5rmxf5zcPr8wigR+MfDLJE/M9aq2h7tNWt//5Fp4/0/znv//button inspector//8ZePP f//r58DP//429d91E0/917/99b/87f/40/z587f/+6//9re/3Jh6t7HAz2Tpf//7t3/3m7xta78z//zz [file] t/Sb/7oSbUhYZQ+oiMVfhD97ndtGoa/c/yu5dM [file] WwUqaLJc5Qd8IfoaP6bcZdHlRjXBvaApIkVX9F ID Date Data Source [id number] 06/18/2020 07:38:00 AM EDT [facility] FASTING: UNKNOWNReceived: 06/18/2020 at 07:10:00 QPT: [facility], [address], [address] [place] [address], [phone], Efra Mendez MD Received: 06/18/2020 at 07:10:00 QPT : [facility], [address] [place] [address], [phone], Efra Mendez MD Received: 06/18/2020 at 07:10:00 QPT : [facility], [address] , [address] [place] [address], [phone], Efra Mendez MD Name Value Range Interpretation [...] of LDL-C.Sergey SS et al. MARYCARMEN. 2013;310(19): 4901-4917([email or web address]://education.[email or web address]/faq/AUW112) Cholesterol.total/Cholesterol in HDL [Mass Ratio] in Serum [...] considered a therapeuticoption. ID Date Data Source [id number] 06/18/2020 07:38:00 AM EDT [facility] FASTING: UNKNOWNReceived: 06/18/2020 at 07:10:00 QPT: [facility], [address], [address] [place] [address], [phone], Efra Mendez MD Received: 06/18/2020 at 07:10:00 QPT : [facility], [address], [address] [place] [address], [phone], Efra Mendez MD Received: 06/18/2020 at 07:10:00 QPT : [facility], [address], [address] [place] [address], [phone], Efra Mendez MD Name Value Range Interpretation [...] is approximately 13% higher for peopleidentified as -Cymraes. eGFR NON-AFR. NAMIBIAN 77 mL/min/1.73m2 > OR = 60 Normal [...] results) [facility] ID Date Data Source [id number] 06/18/2020 07:38:00 AM EDT [facility] FASTING: UNKNOWNReceived: 06/18/2020 at 07:10:00 QPT: [facility], [address], [address] [place] [address], [phone], Efra Mendez MD Received: 06/18/2020 at 07:10:00 QPT : [facility], [address], [address] [place] [address], [phone] MD Received: 06/18/2020 at 07:10:00 QPT : [facility], [address], [address] [place] [address], [phone], Efra Mendez MD Name Value Range Interpretation [...] mean volume [Entitic volume] in Blood by Terrell-Albaro 10. 0 fL 7.5-12.5 Normal (applies to non-numeric results) [facility] Neutrophils [#/volume] in Blood by Automated count 5725 cells/uL [phone] Normal (applies to non-numeric results) [facility] [...] results) [facility] ID Date Data Source [id number] 06/17/2020 11:30:00 AM EDT [facility] ([facility]) Name Value Range Interpretation Code Description Data Viki rce(s) Supporting Document(s) Coronavirus 2019 Nasopharygeal Laboratory test result [facility] ([facility]) ASSAY INFORMATION: Real Time RT-PCR NOTE: The COVID-19 assay has been cleared by the U.S. Food and Drug Administration under the Emergency Use Authorization (EUA). [employer] and [facility] are designated as high complexity laboratories by the Clinical Laboratory Improvement Amendments of 1988(CLIA) and are qualified to perform this test. Not Detected ID Date Data Source [id number] 06/17/2020 11:30:00 AM EDT [facility] Name Value Range Interpretation Code Description Data Viki rce(s) Supporting Document(s) SARS-CoV-2 (COVID-19) RNA [Presence] in Respiratory specimen by BRO with probe detection Not Detected [facility] This lab was ordered by [facility] and reported by [facility] [employer] [facility]. ID Date Data Source [id number] 06/15/2020 07:10:34 PM EDT [facility] Name Value Range Interpretation Code Description Data Viki rce(s) Supporting Document(s) &PDF [facility] ZIMVGs7eRfXLWzEm93/GIWfaNGVci5ZxRVueUTp8CNpbAJJqA8SurAfwOAvJORpXXEoYCdCSMYXjRMO6 [facility] [file] AgICAgICAgICAgICAgICAgICAgICAgICAgICAgICAg AJPeZPWsJOIbOLPeLJRfTLXmBHZyNJPzKXKdIHNcACMdGFMvXTQoHWIyPRUmMJUgCVGiBMFrRH4AVQAl ICAgICAgICAgICAgICAgICAgICAgICAgICAgICAgICAgICAgICAgICAgICAgICAgICAgICAgICAgICAg ICAgICAgICAgICAgICAgICAgICAgICAgICAgICAgIC NvKWAgCK3ALREbHVVfYHLfZNVwHFNcQBFqYKEkKHZnRNWaMCNrHYUyOIBlKPVvSBOuONBcGVFzGHWwAH WzYQYaYMNzRZZeAGUgPBBtWLYdZBKdAENwNZWpBSMtXIKqGXNmJGBcMHLwKSCvWB5UURFwNSIyCDMbIT AgICAgICAgICAgICAgICAgICAgICAgICAgICAgICAg SCEaOHVxCGGeOPJmWNSoSXCmLTXvRZMyESSrUEKpBGLhJTNtCDCgTWAcXUIpAOPbFDCbFMEeUKNgMK1J ICAgICAgICAgICAgICAgICAgICAgICAgICAgICAgICAgICAgICAgICAgICAgICAgICAgICAgICAgICAg ICAgICAgICAgICAgICAgICAgICAgICAgICAgICAgIC HsSZGdMZLcGB4JYYOhDFOtKOZuOJVhCRLzXNUpQQCiRMRpBBXoOBUzPGZiEKSyZRZwWORyPVHiGXXuQP XxSPGbSKJzNBIuNLLeEQEzMKBpGHNjPXYlWWLhTKKtSNQdAPNxROUnTCWwOKQpFFKnCK9TVHLkKQFjYK AgICAgICAgICAgICAgICAgICAgICAgICAgICAgICAg ICAgICAgICAgICAgICAgICAgICAgICAgICAgICAgICAgICAgICAgICAgICAgICAgICAgICAgICAgICAg AK6QHSMgPLUuNDTcYGXiQNLnKRXjDUEtAMNdHOMeXHStGUAfYBQsJLAfNBInHYRcWOIyVKZuUOPdPBWi ICAgICAgICAgICAgICAgICAgICAgICAgICAgICAgIC BnXEOmSGYgXYRcKM3ONDKmJOGmNZLmYHFnDTIsDSNwFDDmVOTcQSBfLRZiACSpUFOuSZAwTOGlRQBiJF IaLKMxRNVlKCNvAQQgBWCpQDOjJTVuIILxTRPjDEFgDBMrZTDcJCMxZGDtYEOfHOFpZWGxJK6RJH27oS Fqo6P2YSVyKU7nlmp/Sp1SJGvhefIkxKOvXX0MLhPj CD6eie0KWmHkNJ7ogv5DRZyDVdHqQ7C8lXRnMYKhORZUAlHuV94lHEojHn11ZXzsRMPtAsGnCJc9Dp9F OjWrB8tzXNMgCxK6WQXgDaJ0BUAiNyJiDBnvJL5Ik4JfgYHsBBm+Ru5PDR6bt0XsKYbqPKJuSH8xoz1Z YKsLWuFfI1K3rQDkO2M8EVuhNd2VXOCqMSCuXtMfLR XSPYgnWU0TKE1vxrS1OR0PrXOqDMVyMCVdaSCoJTk1S92wiGUkAFhsUA2GAZC+Bryan+Aq8ZSJExFYAuQU TkAuGjRMKFMgLtA51egQYkCKGcHLV0QLZcHf3XZEYfR3VzvrLvaTtzwbZkHBWdZQRSEM6QBWqvmrOyyH HjeGtvIJ84kNgmBU7KUi8HXdMeJW7ogj3NiGKbSr7S KTBuNQ4BFSYpQVPlHSHaNNL1FEAkBkQcOYcyCMYfJUHhBFA1PNSxOKViPD0LItQtUUTsIMCiROUzQREy KVLjdz1RAPImXLUyUGv0DlJbTJAtWUDuZTinANTvFOHmBUoxTDAtYQLdSV5EMxPhJKYvJJE8DFlgCSHt ZMPcvk4IDCWiKWXoMCO9UGIaYSCxQDXkDJygXTSeHW Y8OvC9VRJlKGPhHA9VGsKjGCDjXCB3DgQaWIFpTUBfqx9QXVTpBQCwNqbuDEYmGDDrICOvZBtyOESyDB C2MJR2LDVzIURuCO1XVoQiTMJgZXncPGYeUEZcLONnlf5XXXMgPJWvKKI4KIUfCCNoQMSrGPwhMQAyLC V5MkM5JILrLYTsVY1LYxTvQULuDSb5SEOgLMMvQXNx ku2DUGPtCHBsMIWiUxQhTQPdCWCrQSyrLVJqBAH8BqS1NGNbSBUzOR9ZHxEfCIPiVZc4LZqvSLTjESOo he2HDZBvCQUwKHk7WgWlTFOtPPQnVIwyCKSfRDKoGLQ8XNZcIRJaPE3RZgLzNDNvKFQeNYUgYXBsFIVx gl0ZHVHiWSXvBOY8NOHtLZByIJNpBPzkRFTzVXXtYS g0HYLwGZQkDO4KIfIfDZMxTLLuNfFiGUCcPJLlob5SWLUiRUDtXsX6UjJoBRYqLTTfQEicHCEzBZAbIj tqKNPqXFLsFY4ZRjKfRDYwTXX2TZGgYPKhEVXwny2NSZLqQITpAlNrKxXkFWXjXUZkWExmNDLiELB9NB O2WPOpIUVbHY0NLrKfAOzxUXOWNie1JWgoU6g1DLSh QX9HR7Xsj6MfUurwYZPXYUkdYM6dckFaXLPfMh6GZ4rBFxbmQeBkOqMfX6YlIEutSCH8UoEjMjO1GQOv PqGuG7A9ZM6lRUMdRQQnUSRfTAU1BYApDywqE3KvVayoSPYpNTP1PDigSyFwSL5OKk5XZnV8YQQ0pSZx Sd7YCWOgYBMMIcXjIQ4GBUw= ID Date Data Source [id number] 05/03/2020 02:47:00 PM EDT [facility] ([facility]) Name Value Range Interpretation Code Description Data Viki rce(s) Supporting Document(s) Glucose [Mass/volume] in Serum or Plasma 103 mg/dL 74-99 [facility] ([facility]) 100-125 mg/dL PRE-DIABETES/FASTING >126 mg/dL DIABETES/FASTING Urea nitrogen [Mass/volume] in Serum or Plasma 7 mg/dL 7-18 [facility] ([facility]) Creatinine 0.9 mg/dL 0.6-1.3 [facility] Sodium [Moles/volume] in Serum or Plasma 137 meq/L 136-145 [facility] ([facility]) Potassium [Moles/volume] in Serum or Plasma 3.8 meq/L 3.5-5.1 [facility] ([facility]) Carbon dioxide, total [Moles/volume] in Serum or Plasma 26 meq/L 21 -32 [facility] ([facility]) Chloride [Moles/volume] in Serum or Plasma 101 meq/L 98-107 [facility] ([facility]) Calcium [Mass/volume] in Serum or Plasma 8.6 mg/dL 8.5-10.1 [facility] ([facility]) Alkaline phosphatase isoenzyme [Units/volume] in Serum or Pl asma 112 mg/dL 46-116 [facility] ([facility]) Aspartate aminotransferase [Enzymatic activity/volume] in Serum or Plasma 20 U/L 15-37 [facility] ([facility] ) Total Bilirubin 0.3 mg/dL 0.2-1.0 [facility] ([facility]) Alanine aminotransferase [Enzymatic activity/volume] in Seru m or Plasma 25 U/L 12-78 [facility] ([facility]) Proteinase 3 Ab [Units/volume] in Serum 6.8 g/dL 6.4-8.2 [facility] ([facility]) Albumin [Mass/volume] in Serum or Plasma 3.8 g/dL 3.4-5.0 [facility] ([facility]) A/G Ratio 1.27 CALC 1.00-1.90 [facility] [place]) Glomerular filtration rate/1.73 sq M pre dicted among blacks [Volume Rate/Area] in Serum or Plasma by Creatinine-based formula (MDRD) Laboratory test result [facility]) <content>CHRONIC KIDNEY DISEASE STAGING PER NKF</content>
<content></content>
<content>STAGE I & II GFR >= 60 NORMAL TO MILDLY DECREASED</content>
<content>STAGE III GFR 30-59 MODERATELY DECREASED</content>
<content>STAGE IV GFR 15-29 SEVERELY DECREASED</content>
<content>STAGE V GFR <15 VERY LITTLE GFR LEFT</content>
<content>ESRD GFR <15 ON EVENT EXECUTIVE</content>
<content></content> Glomerular filtration rate/1.73 sq M pre dicted among non-blacks [Volume Rate/Area] in Serum or Plasma by Creatinine-based formula (MDRD) Laboratory test result [facility] ([facility] ) ID Date Data Source [id number] 05/03/2020 02:47:00 PM EDT [facility] ([facility]) Name Value Range Interpretation Code Description Data Viki rce(s) Supporting Document(s) Leukocytes [#/volume] in Blood by Automated count 9.9 x10*3/UL 4.1-10 .9 [facility] ([facility] Erythrocytes [#/volume] in Blood by Automated count 4.18 x10*6/UL 4.2 0-6.30 [facility] ([facility] [place] Hemoglobin [Mass/volume] in Blood 13.0 g/dL 12.0-18.0 [facility] ([facility]) MCV 90.1 fL 80.0-97.0 [facility] [facility]) MCH 31.0 pg 26.0-32.0 [facility] ([facility]) Hematocrit [Volume Fraction] of Blood by Automated count 37.7 % 3 7.0-51.0 [facility] ([facility] [place] [facility] MCHC 34.4 g/dL 31.0-38.0 [facility] ([facility]) Erythrocyte distribution width [Ratio] by Automated count 13.3 % 11.6-13.7 [facility] ([facility] [place] [facility] Platelets [#/volume] in Blood by Automated count 310 x10*3/UL 140-440 [facility] ([facility] [place] MPV 8.0 FL 7.8-11.0 [facility] ([place] [facility]) Lymph % 21.1 % 10.0-58.5 [facility] ([place] [facility]) Mid % 4.8 % 1.7-9.3 [facility] ([place] [facility]) Neut % 74.1 % 37.0-92.0 [facility] ([facility]) Lymph # 2.1 x10*3/UL 0.6-4.1 [facility] ([facility]) Mid # 0.4 x10*3/UL 0.1-0.6 [facility] ([facility]) Neut # 7.4 x10*3/UL 2.0-7.8 [facility] ([facility]) ID Date Data Source [id number] 03/05/2020 03:00:00 PM EST [facility] ([facility]) Name Value Range Interpretation Code Description Data Viki rce(s) Supporting Document(s) Bacteria identified in Urine by Culture Laboratory test result [facility] ([place] [facility]) FULL REPORT IN LAB NOTES ([facility] and [facility] ). SPECIMEN APPEARS CONTAMINATED ID Date Data Source [id number] 03/05/2020 03:00:00 PM EST [facility] ([facility]) Name Value Range Interpretation Code Description Data Viki rce(s) Supporting Document(s) Urine PH 6.0 units 5.0-9.0 [facility] ([facility]) Urine Appearance Laboratory test result Abnormal (applies to non-numeric results) [facility] ([facility]) Urine Color Laboratory test result [facility] ([place] [facility]) Urine Blood Laboratory test result Abnormal (applies to non-numeric results) [facility] [facility]) Urine Leukocytes Laboratory test result Abnormal (applies to non-numeric results) [facility] [place]) Specific gravity of Urine 1.005 1.005-1.030 [place] [facility] ([place]) Urine Protein Laboratory test result 0-0 [facility] ([facility]) Glucose [Presence] in Urine Laboratory test result [facility] ([facility]) Urine Nitrite Laboratory test result [facility] ([facility]) Bilirubin.total [Mass/volume] in Serum or Plasma Laboratory test resu lt [facility] ([facility]) Urine Ketone Laboratory test result [facility] ([place] [facility]) Urine Urobilinogen 0.2 mg/dL 0.2-1.0 [facility] ([facility]) ID Date Data Source [id number] 01/28/2020 11:20:00 AM EST [facility] ([facility]) Name Value Range Interpretation Code Description Data Viki rce(s) Supporting Document(s) Thyrotropin [Units/volume] in Serum or Plasma by Detec tion limit <= 0.05 mIU/L 2.85 uIU/mL 0.36-3.74 [facility] ([facility] ) ID Date Data Source [id number] 01/28/2020 11:20:00 AM EST [facility] ([facility]) Name Value Range Interpretation Code Description Data Viki rce(s) Supporting Document(s) Cholesterol [Mass/volume] in Serum or Plasma 167 mg/dL 131-200 [facility] ([facility]) Cholesterol in LDL [Mass/volume] in Serum or Plasma by calcu lation 82 CALC 50-159 [facility] ([facility]) Cholesterol in HDL [Mass/volume] in Serum or Plasma 59 mg/dL 35-60 [facility] ([facility]) Triglyceride [Mass/volume] in Serum or Plasma 129 mg/dL 30-150 [facility] ([facility]) ID Date Data Source [id number] 01/28/2020 11:20:00 AM EST [facility] ([facility]) Name Value Range Interpretation Code Description Data Viki rce(s) Supporting Document(s) Glucose [Mass/volume] in Serum or Plasma 90 mg/dL 74-99 [facility] ([facility]) 100-125 mg/dL PRE-DIABETES/FASTING >126 mg/dL DIABETES/FASTING Urea nitrogen [Mass/volume] in Serum or Plasma 10 mg/dL 7-18 [facility] ([facility]) Sodium [Moles/volume] in Serum or Plasma 140 meq/L 136-145 [facility] ([facility]) Creatinine 0.9 mg/dL 0.6-1.3 [facility] [place] [facility] Chloride [Moles/volume] in Serum or Plasma 102 meq/L 98-107 [facility] ([facility]) Carbon dioxide, total [Moles/volume] in Serum or Plasma 31 meq/L 21 -32 [facility] ([facility]) Potassium [Moles/volume] in Serum or Plasma 4.0 meq/L 3.5-5.1 [facility] ([facility]) Calcium [Mass/volume] in Serum or Plasma 9.4 mg/dL 8.5-10.1 [facility] ([facility]) Total Bilirubin 0.5 mg/dL 0.2-1.0 [facility] ([facility]) Alkaline phosphatase isoenzyme [Units/volume] in Serum or Pl asma 107 mg/dL 46-116 [facility] ([facility]) Alanine aminotransferase [Enzymatic activity/volume] in Seru m or Plasma 22 U/L 12-78 [facility] ([facility]) Aspartate aminotransferase [Enzymatic activity/volume] in Serum or Plasma 17 U/L 15-37 [facility] ([facility] ) Albumin [Mass/volume] in Serum or Plasma 3.9 g/dL 3.4-5.0 [facility] ([facility]) A/G Ratio 1.26 CALC 1.00-1.90 [facility] [facility]) Proteinase 3 Ab [Units/volume] in Serum 7.0 g/dL 6.4-8.2 [facility] ([facility]) Glomerular filtration rate/1.73 sq M pre dicted among non-blacks [Volume Rate/Area] in Serum or Plasma by Creatinine-based formula (MDRD) Laboratory test result [facility] ([place] [facility] Glomerular filtration rate/1.73 sq M pre dicted among blacks [Volume Rate/Area] in Serum or Plasma by Creatinine-based formula (MDRD) Laboratory test result [facility] ([place] [facility]) <content>CHRONIC KIDNEY DISEASE STAGING PER NKF</content>
<content></content>
<content>STAGE I & II GFR >= 60 NORMAL TO MILDLY DECREASED</content>
<content>STAGE III GFR 30-59 MODERATELY DECREASED</content>
<content>STAGE IV GFR 15-29 SEVERELY DECREASED</content>
<content>STAGE V GFR <15 VERY LITTLE GFR LEFT</content>
<content>ESRD GFR <15 ON EVENT EXECUTIVE</content>
<content></content> ID Date Data Source [id number] 01/28/2020 11:20:00 AM EST [facility] ([facility]) Name Value Range Interpretation Code Description Data Viki rce(s) Supporting Document(s) Leukocytes [#/volume] in Blood by Automated count 7.7 x10*3/UL 4.1-10 .9 [facility] ([facility]) Hemoglobin [Mass/volume] in Blood 13.4 g/dL 12.0-18.0 [facility] ([facility]) Erythrocytes [#/volume] in Blood by Automated count 4.41 x10*6/UL 4.2 0-6.30 [facility] ([facility]) Hematocrit [Volume Fraction] of Blood by Automated count 39.5 % 3 7.0-51.0 [facility] ([facility]) MCV 89.6 fL 80.0-97.0 [facility] [facility]) MCH 30.3 pg 26.0-32.0 [facility] ([place] [facility]) Erythrocyte distribution width [Ratio] by Automated count 13.4 % 11.6-13.7 [facility] ([facility]) MCHC 33.8 g/dL 31.0-38.0 [facility] ([place] [facility]) MPV 8.5 FL 7.8-11.0 [facility] ([place] [facility]) Platelets [#/volume] in Blood by Automated count 313 x10*3/UL 140-440 [facility] ([facility]) Mid % 5.7 % 1.7-9.3 [facility] ([place] [facility]) Neut % 72.1 % 37.0-92.0 [facility] ([place] [facility]) Lymph % 22.2 % 10.0-58.5 [facility] ([place] [facility]) Mid # 0.4 x10*3/UL 0.1-0.6 [facility] ([facility]) Neut # 5.6 x10*3/UL 2.0-7.8 [facility] ([facility]) Lymph # 1.7 x10*3/UL 0.6-4.1 [facility] ([facility]) ID Date Data Source [id number] 01/23/2020 01:33:19 PM [facility] INFORMATIONPatient MRN Name Date of Age Gend*PT [id number] Lianne Tuttle 1955 64 years F OBSPT Location Admission Date/Time Visit ID Attending [id number] 01/21/20 0839 --- Audra Gomes MD([id number]) EPI ID CSN Admitting Provider [id number] Audra Gomes MD([id number])Physician Discharge Summary Lianne TuttleMRN: [id number] date: 01/21/2020Attending Physician: Audra Gomes MDAdmission Diagnosis: [...] She had prior stenting tothe LAD in 2017 and presented with recurrent angina and an [...] mouth dailylisinopril 5 MG tabletCommonly known as: PRINIVIL,ZESTRILWhat changed: medication strength how much to take [...] dailySpiriva Respimat 1.25 MCG/ACT AersGeneric drug: Tiotropium [place] Monohydratesucralfate 1 g tabletCommonly known as: CARAFATE [...] Get Your MedicationsThese medications were sent to [id number] - [place], [place] - [address] [facility] [address] [facility] [address] bisoprolol 5 MG tablet clopidogrel 75 MG [...] rce(s) Supporting Document(s) ID Date Data Source [id number] 01/23/2020 08:04:21 AM EST [facility] Name Value Range Interpretation Code Description Data [facility] rce(s) Supporting Document(s) TROPONIN I 0.06 ng/mL (<0.05) H [facility] Less than 0.05: Myocardial injury unlike lyGreater than or equal to 0.05: Highly suggestive of myocardial injuryCorrelation with rise and/or fall ofserial troponins, clinical symptomsand ECG changes is necessary. ID Date Data Source [id number] 01/23/2020 08:04:21 AM EST [facility] Name Value Range Interpretation Code Description Data Viki rce(s) Supporting Document(s) SODIUM 140 mmol/L (136-145) [facility] POTASSIUM 3.9 mmol/L (3.6-5.2) [facility] CHLORIDE 109 mmol/L (100-108) H [facility] CO2 22 mmol/L (22-31) [facility] ANION GAP 9 mmol/L (7-16) [facility] UREA NITROGEN 13 mg/dL (7-24) [facility] CREATININE 0.75 mg/dL (0.60-1.00) [facility] BUN/CREAT RATIO 17.3 RATIO (10.0-20.0) [facility] GLUCOSE 73 mg/dL (70-99) [facility] CALCIUM 8.9 mg/dL (8.4-10.2) [facility] GFR >60 ml/min/1.73m2 (>59) [facility] GFR ( AMER) >60 ml/min/1.73m2 (>59) [facility] GFR INTERPRETATION [facility] --NORMAL KIDNEY FUNCTION OR MILD DISEASE - GFR >OR= 60CHRONIC KIDNEY DISEASE - GFR 15 - 59RENAL FAILURE - GFR <15 Est. GFR calculation based on the MDRDstudy equation, which assumes a steadystate for creatinine. Est. GFR should notbe used for medication dosing. ID Date Data Source [id number] 01/23/2020 07:25:09 AM EST [facility] Name Value Range Interpretation Code Description Data Viki rce(s) Supporting Document(s) WBC 8.4 10*3/uL (4.1-11.0) [facility] [place] RBC 4.06 10*6/uL (4.00-5.40) [facility] HGB 12.5 g/dL (12.0-16.0) [facility] HCT 37.6 % (36.0-47.0) [facility] PERFORMED AT [address] [place] [address] [place] [address] MCV 92.6 fL (80.0-95.0) [facility] MCH 30.8 pg (27.0-32.0) [facility] MCHC 33.2 g/dL (32.0-36.0) [facility] RDW 13.9 % (10.5-14.5) [facility] PLT 251 10*3/uL (150-450) [facility] MPV 8.6 fL (7.1-10.7) [facility] ID Date Data Source [id number] 01/22/2020 11:41:[address] [address]Hamgubr Name: Lianne AcostaB: 1955Sex: FOrdering Provider: CARLOS Mary Prov: CARLOS Sethi Provider: Procedure Performed: CT ANGIOGRAM CHESTExam Date: 01/22/2020 21:55MRN: [id number] Number: [id number] Class: INFORMATION: Exam: CT Angiography Chest With [...] rce(s) Supporting Document(s) ID Date Data Source [id number] 01/22/2020 11:07:30 PM EST [facility] Name Value Range Interpretation Code Description Data Viki rce(s) Supporting Document(s) CK 53 U/L (26-192) [facility] TOTAL CK <56, MASS MB NOT INDICATED. ID Date Data Source [id number] 01/22/2020 07:00:59 PM EST [facility] Name Value Range Interpretation Code Description Data Viki rce(s) Supporting Document(s) TROPONIN I 0.08 ng/mL (<0.05) H [facility] Less than 0.05: Myocardial injury unlike lyGreater than or equal to 0.05: Highly suggestive of myocardial injuryCorrelation with rise and/or fall ofserial troponins, clinical symptomsand ECG changes is necessary. ID Date Data Source [id number] 01/22/2020 05:39:38 PM EST [facility] Name Value Range Interpretation Code Description Data Viki rce(s) Supporting Document(s) D-DIMER,SENSITIVE 0.58 mg/L (<0.50) H [facility] ID Date Data Source [id number] 01/22/2020 04:34:23 PM EST [facility] Name Value Range Interpretation Code Description Data Viki rce(s) Supporting Document(s) CKMB 1.3 ng/mL (0.0-5.0) [facility] CKMB RELATIVE INDEX 2.2 {index_val} (0.0-4.0) [facility] ID Date Data Source [id number] 01/22/2020 04:22:12 PM EST [facility] Name Value Range Interpretation Code Description Data Viki rce(s) Supporting Document(s) TROPONIN I 0.10 ng/mL (<0.05) H [facility] Less than 0.05: Myocardial injury unlike lyGreater than or equal to 0.05: Highly suggestive of myocardial injuryCorrelation with rise and/or fall ofserial troponins, clinical symptomsand ECG changes is necessary. ID Date Data Source [id number] 01/22/2020 04:22:12 PM EST [facility] Name Value Range Interpretation Code Description Data Viki rce(s) Supporting Document(s) CK 59 U/L (26-192) [facility] ID Date Data Source [id number] 01/22/2020 12:48:55 PM EST [facility] Name Value Range Interpretation Code Description Data Viki rce(s) Supporting Document(s) EKG [facility] JUTDEh6cLvTGViYpd3CsXhJhJETwOI3uifg7S0S2yTDdH6GecTSad7osQ9SnQ3MxZNXtCYXIIR0YvDPc jb2 [file] LUvT4B2k4k8jHcNEKImM0OzZGBF/zdCBoeAfu0jAREyPbwRikl87GjzHsd3rl+business office manager+yayMG1miUIW+2L [file] k31t5el5rj77ceA5DG8+L+cRM4h1uy794NwJYd6v6j dpgA7z1Cm0Kv7K8wfwBHLrN3wIGepfGqvBX9+Qh9hb92E00okuUE/3iOb+YLDn1sz78b6/pLk/WPTT3g ykaCC9Aexq+4MlH+3N/lTQt3Y285A/8IZBb/ysab/K+kI6Wljfj4OAfiWiKgQS2GXlmBvWGB8V4nNCaZ k5zI18n/b3oM7+DhBBO1hGnFD3X0/l/174KumNrzTx MuOy9LtFl9Bwzt2J1qZ/UNN+dcOg9/npJa3qcB7XBc621TwKYh+v4v9V/L+G/4lfL2wxz7LZyiIym/8q 4ro54texEb23s/iG0o9urn+KbpBjoPuHcOs/7Bk7QKbY+gU5G/T+3lfH+S69tLqZZcE9aVuVnhh373ow 6PNDuOeBxFclB+32D60yhtLBDY+Ws8k4d16bk3Fox4 D3+20OeBi3yn8+0GwYzg3jqHQ/D6wian7khC8Txsm1v3/9wt9AQtMzmc4kdzP2oCZ8hC7ucoo0y//tO5 j/nP5/9NPeDK/h2GNE0t6SD/gOv9DMsIHivuQj+c6BnEP/S4urZx3O/frAzm8318fFc+C/zsmc8/725f l1x0cjDDBw/GvvC4O+QD/mcxjv5JJwe7hShXba9x/Z hy5Z9MMB1D7TFYgcr340BjJFX2O+67dog4pBbvZlbOI662XOugJ8M974viG+BqhKIvvYvdF9uS7sHZxc /nbO9Fd/B5d5zp93E/pr7joH+mvusq/VF7w2xIN0fihxxECAQa9hS4v2l6ojXV/OQnN4fH+oe7r5j4t2 IGdDfs/FbfktaIJ4ZW/drrJfZVhafuKrrNuYoE/Q+z wJzR8lvAA7E+9LjEP7K4f48m2yVTlLk0lBkeH/Y91jbmn6EftrdnwA7P6iicwJtn2aoZRr/JUlvso+U+ evUo52/xJAFoetpOga1zmLV5MOyPavz836ve8A38y+OSfzaxydg/aNp993/Jy2g3Mal/jk7EeufV6q+Y Xbj4L1rjScB/l/V4Ok2G725EuB/2oPG0bdqd/nnMP4 Z+L/bA35O1uw4o608/ZyDuL/sMx5Lq6FJ+m9/9klnxgW1wlWWu1g1i/7pr2/CGa11tFvKFnItJ7Z410e cr933TBxAN3HlivTeMl98UfaxOEXd4W/HDoh7lcv1+4/ia+ybob+LMjbOP8x7ix/ZmivTciZXR/D+DX0 Z+HjT3R48PHQ2kRE2fChISVdYrJ+qrIwXyW+Srq3vd 2891PMGz+bY/y6IL10/R3/r+P/dfy/ltHhxWexdt50Pw8u8/0jc/y/vjdMEC3uaur8Gi2BKD/MV4H/Nz DeVz1jTkGr7Ebhll86bcOz/8IHzJonk6N9jR9OHioSdh+g2IM5rU/TflXpF+Zm3Pbb31F/Xh/oo/Ww+n zJVadlihO38yibkI0VDOd/mP1/QjwB8Pxe1Ezzy8Ic dKy/cY3H6fyXvNXpA/Y7u6IpgKgRR/PVHqCnfSPT9/wo532pmra2L90N9Ev+Ybk/STHH1x38fwzk9hvq rH+nc5k6qNM71/fgOQ5//6jV1tzsf/jX/dm/D/Darek/Cvvxf86/Hria+KPj+EQe/kZJ99elHXV8vuSyw2 s3+O9L0/3Zkqpid6Kxi46xyp38q/Ux253ZN/B330fO AQp8Lef+crH/4652RG3/nZR3//+nOUUjS94Fm/1Efvh/pAewfam/iq6rlQ/4X0+30/yuVqDVw8Avm1R/ UwZ5dAuAIGXs7p5quT05+AbwhuwdL2jF210BE8Mq3fvKM5exDaK0v7cYkMM+8VrjJK1osAuZZjYMrumw zvUJ/zQ/h9z/eNnmmkZk23/e49dg00OdSOkeBgS/rz ODexSttj88el2mYYzHTjKw5FggEcBz7EFN0GZfdAnz2HSI5EM5463Pd/58SUOs8iwwlet2r4eA/e8PtO d92g9/e+2/scCV7g27R5z08hBC0sYc4qxm6k7am14piiq8xO3V9reabL3xu7Na9EI1Aiep0Kjwv95Ril zb+rc6M41zGop/y/Jt6Blh6OI+vBJ+Frmz5byfqB7J 15Phle83k9eY/hfrv1ftY33s1Nef8ry9K/0H1JckNNq4Tdd+/terqSQgs7mqsFuz0rQVUMF0I+WodPe7 MOab/rNbcJ2M073dn/fuxXL/iqmsqxh14Q/+d1ai398NbxncK75ccgFvcfB78dsqokX3N5B40oong+de m/5s5JURUzim0SvtRFyXnmH9ukm7Sxco+22cBw9e2D n8d+SEc93iaIFrr4Ahk4OKaps721O9d9nWk33mj974mu630koMrcT65BJ1ZGwYQ6094k6K4XB9KY4+9u +7Pvxs++KalX4cG+7gX5C/JRarN1ejSnh4kq54E84h5fE45kALMti1Hpp6eMJ+ON+LjoY6rmuRLWCPPx kL7bG5+RMbcmKSnn6OQ1tfi5aqlnIYc1v3kKv5yIXg X0EVsvuO+3vsTo+QoVcgbQcQozxJPc8gK0SxUn1v2b+v+N/5+mJ9qprFUAi5+NLwcYIglxrkd0y1/OPo RUWSvn3+X5NOxb43ZUBqokSRA86qktk0B+4Lqj1xC0zI2S08/k0aMftN82eQ1V72AqxC12dp/5ynNtXP kqdTJ+5au0t/ErX6V+bq527wQHwuTh/NXnVPrqc+75 f5532pAfh2/WUtz61ie+uH4KiaWzw31mr+Pa5yNP+WyGeJllb62+D/ps+dln6+e0mn8YM0+/nveD+V5m f78O+gxsOscmC36w4mE710KJtnF9v5GQ+bzrxU4VW6oGW7xs3PbKz/nZlyBfka/Ib/kB82R5DF/KV5W2 5ifdi2Gwx5I7AfnPT4AiR3/10nhuIB/7lWG/sr4/cm l6u24aLuiL4/D92kR+gahu40IqgW+td6v54o7u/xvkFi8ZV1e+3d3unDjqFqkv8jkI1fni2mSK8y8/+u 7zke/+H/kBif9IG+5SMraLvfUrrLct3hnmR/m03Wte5O3A8rQz8rFCp7J0Xa9YE/dzcT/ojvXseL+O9Z y3b1ks1Ndgpc3nE1v48brokR//Kenneth/5Z2143qB/sr9 IL/g3q03Ry28k+8H+/Principal Consultant/aRDf+Bfg5tyo07wPbE4/shP22/4WSjf+is/hvyN/L4/4hIFj4L/dN45ncsc [file] ggMDAwMDAgbiAKMDAwMDAwMDQwOSAwMDAwMCBuIAow OPNxWVReBOQzTISzBVMlJL2lXqSzFWNiQAV6TPEoUPPfCUFcksRFSPDdHWTgREk2QFWgEHVcIHAxAVgr YJZwZHFmGRF2WBOdLDBpKD0oMzAmURSoLSY8RoSaIKGlORXnstZMMCWfAQWnBNQ1HnSwMUMtVENmDUls VEMgGDVePCyoBQCkNTKwRE6oKyLgBFSfTNHvOQktOS VgTWNrjqURPXQpNUPzPZMvDzIvYLPjNFRaFXoiEERsCFv7FPWrBHViICLcWO9dFrFtNYPhWSK5VZeiYT GuBOKfkpWGYMIyVOBsTMsjKFToDJLtZIRyLQbgLPVfJLPeYUS3UGGzNIApIB5tXwPxRLRyIGCxPCArSg G7LbXwTsCAyDKeqJwcfxs2NBxjM9s5MKGuCSiaBR9v nhRdVKCkTxzqIq9cfQD9KIEmSkgKEe1Rp2BuywS7opJpXpg3KVQbCuTjHS5L ID Date Data Source [id number] 01/22/2020 07:27:18 AM EST [facility] Name Value Range Interpretation Code Description Data Viki rce(s) Supporting Document(s) EKG [facility] CIHYDb4uXdGDFnCqq6FlNxMgRQGlFA3ddjf7J9D1jXZmN9RlfLBbo8kpQ0FwQ5JrKXDuDTOQLO6SqCXz jb2 [file] 7n32dvXc/vp biology/y7U17eO83314A//o3sqz01Q+9+4q1Tso72h/bnbGm+sqZEO2j3ucVRL05+3HuKxP1YQz [file] ZiAKMDAwMDAwMDAxNiAwMDAwMCBuIAowMDAwMDAwMD m8PAGqJTPjGB7yJsDpSBXkNJXvRRWrJLDjEVZgddEMRNPtMZPqWPP8NOLwYHMdNATjIHdsAUNpURYoKK A6LLXaKKCpJQ3jOvJhWWMgOGE6EsMkSPPnVPVkqeMODTUtUCVpTHD1NSTbJFGfJAVtIAtvEDKqCIHmZt B1QPGrQJPiWF5pNzKjSRLeMLK2SHHvUGOwXZMlcwES BQRvKKCcWPa9EvLfQATlZZClKGbhAUAoLZKuFPhvNGYjELRhAV7zNyVgPYFfIVDxDBKdHVNoSWYhoyYE YSTbSPMsDEM8TqQsIOYhOXOnNRigQCLdMXMyBDV6LAOvAINhQY1oRsLuHLFyORL1WlExDZQlDBYbyyKW PDAaUDDuDBLlRWBqHIWoARGfFYuxSKBxXOHmIwT0TV KwSTPwEP2cZlSzRXSsQWV9XCUbYIYsUBAjnyKMSOEgQMZpKCRpLNS3MZNdDSVjYUw4lzLhaVSdDae9Iv 8JjFaxCOR1Ob3JxeCtALOaOAGUCv3Yd093ZJIiJLHOAqi+GlaheZWobEhoTKJQIWM5IgDORHDQX1F= ID Date Data Source [id number] 01/22/2020 07:49:53 AM EST [facility] Name Value Range Interpretation Code Description Data Viki rce(s) Supporting Document(s) SODIUM 141 mmol/L (136-145) [facility] POTASSIUM 3.9 mmol/L (3.6-5.2) [facility] CHLORIDE 110 mmol/L (100-108) H [facility] CO2 25 mmol/L (22-31) [facility] ANION GAP 6 mmol/L (7-16) L [facility] UREA NITROGEN 12 mg/dL (7-24) [facility] CREATININE 0.72 mg/dL (0.60-1.00) [facility] BUN/CREAT RATIO 16.7 RATIO (10.0-20.0) [facility] GLUCOSE 83 mg/dL (70-99) [facility] CALCIUM 8.3 mg/dL (8.4-10.2) L [facility] GFR >60 ml/min/1.73m2 (>59) [facility] GFR ( AMER) >60 ml/min/1.73m2 (>59) [facility] GFR INTERPRETATION [facility] --NORMAL KIDNEY FUNCTION OR MILD DISEASE - GFR >OR= 60CHRONIC KIDNEY DISEASE - GFR 15 - 59RENAL FAILURE - GFR <15 Est. GFR calculation based on the MDRDstudy equation, which assumes a steadystate for creatinine. Est. GFR should notbe used for medication dosing. ID Date Data Source [id number] 01/21/2020 02:12:20 PM EST [facility] Name Value Range Interpretation Code Description Data Viki rce(s) Supporting Document(s) EKG [facility] ECLKNd7oRsXLOcLnj7CkGrGdNYXfEO3npqt9T9Y1zVVjA9WukOLkh8iwV2PmE7BfSTCmYEILSI8FmOCy jb2 [file] NwolJUVPRg== ID Date Data Source [id number] 01/21/2020 12:51:43 PM EST [facility] Name Value Range Interpretation Code Description Data Viki rce(s) Supporting Document(s) &PDF [facility] GOYRXb0lXhSKZqCe53/UXYizPKJgb8CbRHjwMAo2SLnsFFDlO6YznPtpVIxCJSfFAAuEXoZBGRZxBPUe FcG [file] SIi186s02uTX+cF/ebOmIo7QCMCfYqlGo/qCTuH7+HGh+sTVCcGIMbIkwqvrLkzgv2P1tO+button inspector+ZCX3g9 [file] rsS+UNVZKLt1cCRb7GSQy8ynecFBl8/324cm0nsFKF5awC2740gEoo0l+grand jury deputy sheriff+bUO+3L1e41U9EbK8wK4 [file] /home management supervisor/Dvw00eb2s1gFdJEIhR4WpX+LqRuniqqoici1akXeswyISdbysrGrFhQI4t16fPh/MAKAieMvDjx [file] ICAgICAgICAgICAgICAgICAgICAgICAgICAgICAgIC AgICAgICAgICAgICAgICAgICAgICAgICAgICAgICAgICAgICAgICAgICAgICAgICAgICANCiAgICAgIC AgICAgICAgICAgICAgICAgICAgICAgICAgICAgICAgICAgICAgICAgICAgICAgICAgICAgICAgICAgIC AgICAgICAgICAgICAgICAgICAgICAgICAgICAgICAg ICANCiAgICAgICAgICAgICAgICAgICAgICAgICAgICAgICAgICAgICAgICAgICAgICAgICAgICAgICAg ICAgICAgICAgICAgICAgICAgICAgICAgICAgICAgICAgICAgICAgICAgICANCiAgICAgICAgICAgICAg ICAgICAgICAgICAgICAgICAgICAgICAgICAgICAgIC AgICAgICAgICAgICAgICAgICAgICAgICAgICAgICAgICAgICAgICAgICAgICAgICAgICAgICANCiAgIC AgICAgICAgICAgICAgICAgICAgICAgICAgICAgICAgICAgICAgICAgICAgICAgICAgICAgICAgICAgIC AgICAgICAgICAgICAgICAgICAgICAgICAgICAgICAg ICAgICANCiAgICAgICAgICAgICAgICAgICAgICAgICAgICAgICAgICAgICAgICAgICAgICAgICAgICAg ICAgICAgICAgICAgICAgICAgICAgICAgICAgICAgICAgICAgICAgICAgICAgICANCiAgICAgICAgICAg ICAgICAgICAgICAgICAgICAgICAgICAgICAgICAgIC AgICAgICAgICAgICAgICAgICAgICAgICAgICAgICAgICAgICAgICAgICAgICAgICAgICAgICAgICANCi AgICAgICAgICAgICAgICAgICAgICAgICAgICAgICAgICAgICAgICAgICAgICAgICAgICAgICAgICAgIC AgICAgICAgICAgICAgICAgICAgICAgICAgICAgICAg ICAgICAgICANCiAgICAgICAgICAgICAgICAgICAgICAgICAgICAgICAgICAgICAgICAgICAgICAgICAg ICAgICAgICAgICAgICAgICAgICAgICAgICAgICAgICAgICAgICAgICAgICAgICAgICANCiAgICAgICAg ICAgICAgICAgICAgICAgICAgICAgICAgICAgICAgIC AgICAgICAgICAgICAgICAgICAgICAgICAgICAgICAgICAgICAgICAgICAgICAgICAgICAgICAgICAgIC ANCjw/qUQjJ6gmrPRjhuM0U6ozXw0NRq8NPQ6kh2DgIWZeTKfojrIzTtzBYyGvTEDmGhgWTfw3FEwlLB 6SkRDoD3LtC1DeVYmaYG4WIZRoKWKogEQdLHRdBPCo AwM4IKSxEAuwRP4AbFMrLBeiVYFzSAEfQeWvVQCyUMAnERJxGNNoUBPLHGBqUIMuMjThHDAtSDKkGIzl VQEGHQ7AMoIfV4CtaA09PAoQQr3+MDqzslOlYyuDLaA8QXSbd8DhEMk5YU5NQHJwZfihp0QzLyBsUJRI UXreVZ1HBNM9CYG3HPApZv6ZCNGtS559lyUwNR4BNs 9VFoYkWO4yvb9TCjOkSNAyUgnONsz2ITdmCK3KpBNrOPpWcYPqPT85udxZTpDsZ9Mpd1TaHqI8ZJDcSw IvWHddHKCpDjU6KR61uLrySS4DVPYpDMVkBX55IRO4ZZHrIe7XMd1MTxGpQI4zus0QYoSfZAIuDaxLGp y6EWmzMO1RdZUrB3WypMWkk9uCGuGgV3XQABSdBPWt Kb0NSWNaMzJzKBWgSDosHT0iUOXpACWVmDsdfjB2SG3HIU1wmzYyDQ0EOcYeIg7jFl2SKpWkN9FtD5Zc EQWdZXKWYQalGO4ISKvkHU1xOP9Qw9FDhKLqgO2tzj3EQBAcQQPuFzbdzc6YBdrvF1I6cPzfHNQyCxBj DNPKNIfeHN0DYAUsOKA4ODGbHpOhSQBQGlXzF53lOY 8IB3Xlv86kZmM2OMIzZoBiNYeoBE39fLmcejIepUZyqUgbZN3JKe4+DQplbmRvYmoNCnhyZWYNCjAgMz hEWyPlUDHbGAAeVDTlOyW3KvWaEk6SQPGxLLRhVQGvJuYzBNCkMIVlBSxjHLRgVHniSiS6MTOmTWLgIA 3GDyPhEIZdSFFwWBkkLPUwMBJrcj0SVMXhKBDxFEP0 HIYxFWKvSAEmFCjmHCMoFELsRcDnARQmHVPyLE9CTlQyJDQdIBN3EkHjILCvAGRmwd4OVBMuKLNyACRp TWXfLTXdXZIjEHknHUZbTCQ7AXIgYRQyZFWpOO1XVdYzEEZnALR9ZKKlJTObBQRotv7VWVGnVWXzBuSl EOYvEZEoQZOyHWzaECDiMAH1Lsa1ORIwWCKdPI0YNu YbIQOaZZp5ZHAdDZLmFZNeqd7ODXTiZITnCGN9AXCwNDChWZRrKNfkFIVrZDGcBxG7ZSUaIYKjKE6IPr NyZBHsEHB0RlOwJMNsFEUbaj5QDARrJSSyTEmdJHWvOJVyCXToWSgeDKOtRHJeGRV1RXSwXKBeIV2NJy YdAKAiOTBgSjOpBIDzIURock8UPGPwZCQoPGAzOVKs UVVqEZRlSVitUIAnWJH5WTPcPIYkEGNfME1AFfZzBCBlMQV9MLKfOPGwUXUoxe0GDLJfRCPuMKQ6PaIl BCBsCGLoGXtxYSRmYAC1RCA3XVZcZIVvYD7HEmAfYIOjUFDkLTBdCBWdZQTpkm6WVSXdCFCyXSy6GhVo KSVvAMLuYScsVRGnJGYvVeJ2HTAkQTZwLQ0FYrKlUJ BrIiQ3QaXaXNHvBSXpko9XUTLmURP4OcA1HeBiFHQpADCkGUxwCPKcHIQvBSAsOFPzYNHvDO9VVeAjNM YuNyBhSRcbDAQcHQGqah3GBCGxXJK5RaCtAhQkIOWuCJLvUEzrUCGaSPjwZpL9OVBuNDTbWG0HGcCwMB GqOYU4AJyeDKYvSLJevl8CXWQoTBD9BUWgQZObMUTy KJUkWAypYALvPLs4Hcl3LAUtLVQbAO6JFkEkLWVlWDX9DBCvISCxDFKopp9KxGPxfFtjor0HXJaUBd5J yRqbHMX5KJizZe9ldZNqUfPkCNZCYf7TtnUtIBJlOBCGWAcuIFBeXSrhP8ClJwZzM5RfWDl7KmLeAJKf NbNcCqTwULI0OfAtRcU7DKAdJRRvFZL3KjRlVXwbVH MwYjNmYWNjMzAwZDliNGE+JV7sGZn+Zg4Qj6AulhH5obZhADp5KOgiSW1PLCXJD5YYJh== ID Date Data Source [id number] 01/21/2020 09:20:05 AM EST [facility] Name Value Range Interpretation Code Description Data Viki rce(s) Supporting Document(s) EKG [facility] FURRRb7zKpVSIbWxo6HhErDbDKJpKN8oczq6P4A4uXRmK0VvkXXuk7dbQ8KsO2FmSSFrGROREB9IiJNi jb2 [file] 42VaOf9px4yigO/2Uf97q2ojIBwF2hZ124RD5D9zw3 Kvwrpvo+3kjLaTM/A1B4671/lON95ScfFiswtW8en17laPM+NqYzzvfo/btBFLVOI2MF/IBnlBdsgBGX uZbyHe36YfL6sVuoPfeT3hCDJb9DtPdxXyUeC/ZvvhHVRDjUhwI7QV3ywqsdl7lcXlAPaNND8frK/Br2 gA35Zq6OqKuKZHN0C0Jtqyk96fZa4FcgN/QvwmDY2a T46ncIxBjL/gVwZ+AtOFDh8o3Cjd/N4B8qfYNjhs+8ojCvV3ZxHZBlhfwu6TXkBorp03MW1s/5Ulvzrz piW/qiaw6LbO28nY2j1+Fuq9DvoVrz01I+L0S1520doIM6poR+KNbBV1hLcwP5Rr8JcmciFewfbkYnyz Hk4XX5BSsiry1U+buEJvGzYTh56tnWI3IxYu+121v5 egyTI559gg6IV9yRz9Kio8d7999en9c3cyt24tn12d2rQYL+Bab131L14Ui30X2Wgm7EsDosDm/SU9/6 5jr/Sj90BBeL6B2a+19L9pOB5z+K+U4x8yk0tvBpg1beChDaMcuxGq31ZDs8bcsBn11Hef7ZnNy1Jehn ys2IjUZxb68u1h+LIUxAnEzpQjXkpWzp9PHcBfC+Se eim75Zc27vhrl/8f430wd4f1g6+4L2fkl49omd1uNtvyt4g46Zqad202QTzhJN/X1/3xpSu0Rq+9Sh61 ss4HIvTKN2OR5Zezfa/OsTAr+jUPZ5kwZvWX/wb8ahW/Otcp/0S3pmUpOLcue/Fu681TznwJ1z0xlwz1 medicare nurse/jz0BkfTh+SE6QQH9rSm0V2bn1yfXue/g+YJfrc B7tB/GUqfbT3uPO+JCe5R2k1na9EbD/5XDf+PfZge0Gy4+5U/x5vs6we8reX33NXs4tfv8bnd5bGVcXh /8N823Mpr+oGN/2UKyKShOzp2z/WwUngn9fqDiQEVKxXzxG7LU+/y7zX8St+XtKbueejUzIvyEc2813R ZBKaldsnOyBxzEp169+WMNEtt6ugS/5tXzB84GDwPI /HrWnff8sj59K62m8h+B24zh6G2FrfiotGO/dy673rFUNjPv5UA7Zox5g/3tvtpO+up1qK/jww5ll0kt 9a87+tlxv95+ZKpoP00XQCCo+JZJJwz1oDBwMwyBo988+DRVFvn2bAXmKbnUv859/Audie/5XDf+CQr007 [file] dsOH+y+3n/578/MTy6lMYCfrVQ6vYB+O3tp+3V0Pf/dnrs1Lk/6D4mpwzkxW5lHZwb/un/+6f4/2+wells cG4Pi74K42FHWO1N+av6SKRI0w/VAIFV8NkOZk1D5irafdXR++Hew4rab0/+l58ctNE3C5roIQYr1JD9 +SfoXWKrkuyLr5b1Ua/d9ULRhkt6f/ywic6i1d7g5W Hnwp0Xk9lpu4p2/aekS/856e6jT//sHLIHtdA2i39/7/sP7+c/kqcfmx3zz7PklO/nL/O6+eMYXRZjT4 nt8nAz1v+5qvmBvt2EN0MEhCv3ct5Pic0qX4xmj7f/OoOPyja5Nb2hbj0plGiAmZ7EPRBvWKY5gMnp87 5WDSCZcRwzY7/u/wFpH+h6ScAtADF0ijKefCckxoWj WioAAVfxAXGwCvt7VQ2EiZXtUTIaS2F0SHAgos2zOSNaLBWpeVFkCwNuQVNCYO7VeBBtLU9VRUx1LIMb OLKyPlNdZJNoarB2QYTeDXFjVSVfH3FwtbJvzQDdGLFfZu3+BN2gj4TsLpDqXGOiDws2CU6DuHKvIK8F nAEnjJ6kfmVsB736xoAfGKQnBmznh0OtTYsgXPQIHB 1JFPV4LLJ5LJOzBq5+TM6va0NcFtAxOBXlKlo0VC3MnZAzv2ItJW6MM6EhILXtEGLAUCV9a5QuJMYsaw sxhepuJ7YvFAI7cK3hTTS5UXMgDBseZLOqDCOjWtI3IjNaYWfhELXgAVKqJJOuYFRqUTv1kVGoOW6WR3 LxTQXwTILDHUJwlqDrYs9nQGpNTDcOGULKNK6NUQXn VLUmZLVnAOTxWG3LfHHzQRH9RVyLCZZFRQhAVEnlQvHoo8J1HSSdZ9StDJHuoyPsLFUZEAaxAxzmQH2m kZfmzgjwS5XhmSMaPXXXWPYnXDCuQERuCJUeA7Vfl9I7H5UnIIdHYQLGYXzJASjxMkA2l90zpdZJFLZo ZXMpID4+YS6tz3AhYm2VQMQwDF1jbmz6UP4CrCQfTQ 9ORQzdqcRuF6kevqSiMjWiYFBSDV6mH8HiwE44RKP+VpRoME7tbcf8wnKeEfUkVCAhVSTwECYaUNzsLD IiKQLcZVPqAIE7ZQX4MZCgClIgXVCmTAJpTnwhCSIqWRAyaeWOTEMtDFP7QAlbHSVkFHOqTPUaKCxzMA PsNXIuCjodPTRlVIZdHT9gDkJzNCBoTPNwXTGeAhS5 SuZrMhWOXGVmTIIzILHpReFqRDAyXNLjEYcjZJLnMZWuYPh1EFYnMDViID7tAwCiELYdTQHhIRBaFLZm EBOmpxHIOSZoFGIgLPM4PSPyBCJvUOLkZYmaYZJuPXIdKXV3ZFYbXCXiUS2lQzKcLPMbMQL8MhUaTPCh CNXiqmVBSHMqGZUfJUY9YVInIUOvSYWiNQepAFJlCF LvOoW7ZMWqAQZwGZ4wQzIcQFEqTLU7ZAEkRHFvRYNwplLAMVQeXTWaZGa8JmMmTNOwKETqQUosPDEmVE IdZBunGYReTNJqOD2pSoLkRGCgFVXdIXBgNOZmETUxpjLYFVNuMCCeIES7UdDgEERhHFLkFVecGXZtEE DeLSS1RQLdPHEoIU7wXvOdRTSiQBI0AQLfVUPsHLJo qyZGTQPrRRAbFYLaLDUbVWAbXHWiZVmhTBOzIOWyEyJ8YHPoMIRzGY1lEhCwUQDhATF9JOXgMARkFIAk taVQPLFyCAAhQPJtLTP7IZCuOGHuLTw2xoVyyOJnMff4Ch7RdQgeZMJ1Wg7GqcQcGMUiVEJUKz0Cg463 IDUgMCBSCgo+LjcboBMfwJuqJHVMWRYiGKMFVAVBH2L= ID Date Data Source [id number] 01/16/2020 12:00:00 AM EST [facility] Name Value Range Interpretation Code Description Data Viki rce(s) Supporting Document(s) SARS coronavirus 2 RNA [Presence] in Res piratory specimen by BRO with probe detection [facility] This lab was ordered by [facility] and reported by [facility]. ID Date Data Source [id number] 12/29/2019 03:20:00 PM EST [facility] ([facility]) Name Value Range Interpretation Code Description Data Viki rce(s) Supporting Document(s) Laboratory test finding (navigational concept) 0.01 ng/mL 0.00-0.08 [facility] ([facility]) ID Date Data Source [id number] 12/29/2019 12:36:00 PM EST [facility] ([facility]) Name Value Range Interpretation Code Description Data Viki rce(s) Supporting Document(s) Lipoprotein lipase [Enzymatic activity/volume] in Serum or Plasm a 77 U/L 73-393 [facility] Natriuretic peptide.B prohormone N-Terminal [Mass/volu me] in Serum or Plasma 176 pg/mL [facility] Thyrotropin [Units/volume] in Serum or Plasma by Detec tion limit <= 0.05 mIU/L 1.020 uIU/ML 0.358-3.740 [facility] Thyroxine (T4) free [Mass/volume] in Serum or Plasma 2.69 ng/dL 0.76- 1.46 [facility] ID Date Data Source [id number] 12/29/2019 12:36:00 PM EST [facility] ([facility]) Name Value Range Interpretation Code Description Data Viki rce(s) Supporting Document(s) Glucose, Fasting 80 mg/dL 70-100 [facility] ([facility]) Blood Urea Nitrogen 10 mg/dL 7-18 [facility] ([facility]) Creatinine For GFR 0.84 mg/dL 0.55-1.30 [facility] ([facility]) Sodium Level 137 meq/L 136-145 [facility] ([facility]) Glomerular Filtration Rate Laboratory test result [facility] ([facility]) <content>Units are mL/min/1.73 m2</content>
<content></content>
<content>Chronic Kidney Disease Staging per NKF:</content>
<content></content>
<content>Stage I & II GFR >=60 Normal to Mildly Decreased</content>
<content>Stage III GFR 30- 59 Moderately Decreased</content>
<content>Stage IV GFR 15-29 Severely Decreased</content>
<content>Stage V GFR <15 Very Little GFR Left</content>
<content>ESRD GFR <15 on EVENT EXECUTIVE</content>
<content></content> Potassium Serum 4.3 meq/L 3.5-5.1 MEDENT ([facility]) Carbon Dioxide Level 24 meq/L 21-32 MEDENT ([facility]) Chloride Level 105 meq/L 98-107 MEDENT ([facility]) Calcium Level 9.0 mg/dL 8.8-10.2 MEDENT ([facility]) Anion Gap 8 meq/L 8-16 MEDENT ([facility]) ID Date Data Source [id number] 12/29/2019 12:36:00 PM EST MEDENT ([facility]) Name Value Range Interpretation Code Description Data Viki rce(s) Supporting Document(s) Ast/Sgot 16 U/L 7-37 MEDENT ([place] [facility]) Bilirubin,Total 0.6 mg/dL 0.2-1.0 MEDENT ([facility]) Alt/SGPT 17 U/L 12-78 MEDENT ([place] [facility]) Alkaline Phosphatase 114 U/L 45-117 MEDENT ([facility]) Bilirubin,Direct 0.1 mg/dL 0.0-0.2 MEDENT ([facility]) Albumin/Globulin Ratio 1.1 1.2-2.2 MEDENT ([place] [facility]) Total Protein 6.8 GM/DL 6.4-8.2 MEDENT ([facility]) Albumin 3.5 GM/DL 3.2-5.2 MEDENT ([place] [facility]) ID Date Data Source [id number] 12/29/2019 12:36:00 PM EST MEDENT ([facility]) Name Value Range Interpretation Code Description Data Viki rce(s) Supporting Document(s) White Blood Count 9.6 10 4.0-10.0 MEDENT ([facility]) Red Blood Count 4.43 10 4.00-5.40 MEDENT ([facility]) Hemoglobin 13.4 g/dL 12.0-15.5 MEDENT ([place] [facility]) Hematocrit 41.5 % 36.0-47.0 MEDENT ([facility]) Mean Corpuscular Hemoglobin 30.2 pg 27.0-33.0 [place] DENT ([place] [facility]) Mean Corpuscular Volume 93.7 fl 80.0-96.0 MEDENT ([place] [facility]) Red Cell Distribution Width 13.5 % 11.5-14.5 [place] DENT ([place] [facility]) Mean Corpuscular HGB Conc 32.3 g/dL 32.0-36.5 MEDE NT ([place] [facility]) Platelet Count, Automated 288 10 150-450 MEDE NT ([place] [facility]) Neutrophils % 67.5 % 36.0-66.0 MEDENT ([facility]) Lymph % 23.3 % 24.0-44.0 MEDENT ([place] [facility]) [place] % 7.7 % 0.0-5.0 MEDENT ([place] [facility]) Eos % 0.6 % 0.0-3.0 MEDENT ([place] [facility]) Immature Granulocyte % 0.3 % 0-3.0 MEDENT ([place] [facility]) Baso % 0.6 % 0.0-1.0 MEDENT ([place] [facility]) Nucleated Red Blood Cell % 0.0 % 0-0 MED ENT ([place] [facility]) Neutrophils # 6.5 10 1.5-8.5 MEDENT ([facility]) [place] # 0.7 10 0.0-0.8 MEDENT ([place] [facility]) Lymph # 2.2 10 1.5-5.0 [facility] [facility] Eos # 0.1 10 0.0-0.5 [facility] [facility] Baso # 0.1 10 0.0-0.2 MEDENT ([place] [facility]) ID Date Data Source [id number] 12/29/2019 12:36:00 PM EST MEDENT ([facility]) Name Value Range Interpretation Code Description Data Viki rce(s) Supporting Document(s) Laboratory test finding (navigational concept) 0.00 ng/mL 0.00-0.08 MEDENT ([place] [facility]) ID Date Data Source [id number] 12/22/2019 12:00:00 AM EST [facility] Patient Name: CASSANDRA TUTTLE [facility] Date of : 1955[place] [address] Date of Exam: 12/22/2019#: Fax: [phone] EXAM: CT CERVICAL SPINE WITHOUT CONTRASTCLINICAL INFORMATION: Neck pain. Numbness in both hands. History ofsurgery 1996.Comparison study 03/31/2019.CT FINDINGS:The patient is status post ventral diskectomy and fusion plating across theC5-6 disc level as before. Vertebral body heights are preserved.Alignment is normal. There is mild degenerative narrowing of the C4-5 [id number] degenerative narrowing of the C6-7 disc spaces. [...] No new disc protrusion seen.Accredited by the [employer] in [place].BRADLEY Campos/Mustapha you for referring LIANNE TUTTLE to our office.Electronically Signed - ROBERT CHILDERS MD 12/23/19 14:53 Name Value Range Interpretation Code Description Data Viki rce(s) Supporting Document(s) Procedure Social History Code Duration Value Status Description Data Source(s ) Smoking 11/26/2020 12:00:00 AM EDT Patient has never smoked co mpleted Patient has never smoked MEDENT ([facility] ) Smoking 11/04/2020 12:00:00 AM EDT Never Smoker completed Never S moker eCW1 ([facility]) Smoking 11/04/2020 12:00:00 AM EDT Never Smoker completed Never S moker eCW1 ([facility]) Smoking 09/30/2020 12:00:00 AM EDT Never Smoker completed Never S moker eCW1 ([facility]) Smoking 09/30/2020 12:00:00 AM EDT Never Smoker completed Never S moker eCW1 ([facility]) Smoking 09/30/2020 12:00:00 AM EDT Never Smoker completed Never S moker eCW1 ([facility]) Smoking 08/16/2020 12:00:00 AM EDT Never Smoker completed Never S moker eCW1 ([facility]) Smoking 07/15/2020 12:00:00 AM EDT Never Smoker completed Never S moker eCW1 ([facility]) Smoking 07/14/2020 12:00:00 AM EDT Never Smoker completed Never S moker eCW1 ([facility]) Smoking 07/01/2020 12:00:00 AM EDT Never Smoker completed Never S moker eCW1 ([facility]) Alcohol intake 06/29/2020 12:00:00 AM EDT Ex-drinker (finding) comp leted Ex- drinker (finding) [facility] Alcohol intake 06/22/2020 12:00:00 AM EDT Ex-drinker (finding) comp leted Ex- drinker (finding) [facility] Smoking 06/17/2020 12:00:00 AM EDT Never Smoker completed Never S moker eCW1 ([facility]) Smoking 06/17/2020 12:00:00 AM EDT Never Smoker completed Never S moker eCW1 ([facility]) Smoking 04/27/2020 09:54:39 AM EST Never smoked tobacco (findi ng) completed Never smoked tobacco (finding) JERI (Pancho Larsen MD [facility]) Alcohol intake 03/11/2020 12:00:00 AM EST Not Currently completed [facility] Smoking 03/11/2020 12:00:00 AM EST Never smoker completed Never s moker [facility] Alcohol intake 01/29/2020 12:00:00 AM EST Not Currently completed [facility] Smoking 01/29/2020 12:00:00 AM EST Never smoker completed Never s moker [facility] Alcohol intake 01/21/2020 12:00:00 AM EST Not Currently completed [facility] Smoking 01/21/2020 12:00:00 AM EST Never smoker completed Never s moker [facility] Vital Signs ID Date Data Source UNK Name Value Range Interpretation Code Description Data Source(s) Body weight 200.00 [lb_av] 200.00 [lb_av] MEDEN T ([facility], [facility]) Systolic blood pressure 123 mm[Hg] 123 mm[Hg] M EDENT ([facility], [facility]) Diastolic blood pressure 84 mm[Hg] 84 mm[Hg] MEDENT ([facility], [facility]) Heart rate 98 /min 98 /min MEDENT ([facility], [facility]) Respiratory rate 12 /min 12 /min [facility] ( [facility]) Oxygen saturation in Arterial blood by Pulse oximetry 98 % 98 % [facility] ([facility]) Body temperature 97.8 [degF] 97.8 [degF] [facility]) Body height 62 [in_i] 62 [in_i] MEDENT ([facility]) 5'2" Body mass index (BMI) [Ratio] 36.6 kg/m2 36.6 k g/m2 [facility] ([facility]) Systolic blood pressure 155 mm[Hg] 155 mm[Hg] M EDENT ([facility]) Diastolic blood pressure 88 mm[Hg] 88 mm[Hg] MEDENT ([facility]) Heart rate 85 /min 85 /min MEDENT ([facility]) Body weight 200.00 [lb_av] 200.00 [lb_av] MEDEN T ([facility]) Systolic blood pressure 140 mm[Hg] 140 mm[Hg] M EDENT ([facility], ) Respiratory rate 16 /min 16 /min MEDENT ( [facility], ) Diastolic blood pressure 80 mm[Hg] 80 mm[Hg] MEDENT ([facility]) Heart rate 80 /min 80 /min MEDENT ([facility], ) Diastolic blood pressure 91 mm[Hg] 91 mm[Hg] MEDENT ([facility]) Body weight 198.00 [lb_av] 198.00 [lb_av] MEDEN T ([facility]) Heart rate 85 /min 85 /min MEDENT ([facility]) Systolic blood pressure 164 mm[Hg] 164 mm[Hg] M EDENT ([facility]) Diastolic blood pressure 92 mm[Hg] 92 mm[Hg] COURT ([facility]) Body height 62 [in_i] 62 [in_i] COURT ([facility]) Systolic blood pressure 126 mm[Hg] 126 mm[Hg] A THENA ([facility]) Diastolic blood pressure 92 mm[Hg] 92 mm[Hg] COURT ([facility]) Body height 62 [in_i] 62 [in_i] COURT ([facility]) Systolic blood pressure 126 mm[Hg] 126 mm[Hg] A THENA ([facility]) Diastolic blood pressure 92 mm[Hg] 92 mm[Hg] COURT ([facility]) Body height 62 [in_i] 62 [in_i] COURT ([facility]) Systolic blood pressure 126 mm[Hg] 126 mm[Hg] A THENA ([facility]) Diastolic blood pressure 88 mm[Hg] 88 mm[Hg] MEDENT ([place] [facility]) Heart rate 85 /min 85 /min MEDENT ([facility]) Body height 61.75 [in_i] 61.75 [in_i] MEDENT ([facility]) 5'1.75" Systolic blood pressure 138 mm[Hg] 138 mm[Hg] M EDHEIDI ([place] [facility]) Oxygen saturation in Arterial blood by Pulse oximetry 99 % 99 % MEDENT ([place] [facility]) Air Body height 61.75 [in_i] 61.75 [in_i] MEDENT ([facility]) 5'1.75" Body weight 200.00 [lb_av] 200.00 [lb_av] MEDEN T ([place] [facility]) Diastolic blood pressure 78 mm[Hg] 78 mm[Hg] MEDHEIDI ([place] [facility]) Systolic blood pressure 124 mm[Hg] 124 mm[Hg] M EDENT ([place] [facility]) Heart rate 83 /min 83 /min [facility] Oxygen saturation in Arterial blood by Pulse oximetry 96 % 96 % MEDENT ([place] [facility]) Air Body mass index (BMI) [Ratio] 36.9 kg/m2 36.9 k g/m2 MEDENT ([place] [facility]) Heart rate 96 /min 96 /min MEDENT ([facility]) Systolic blood pressure 132 mm[Hg] 132 mm[Hg] M EDENT ([place] [facility]) Diastolic blood pressure 80 mm[Hg] 80 mm[Hg] MEDENT ([place] [facility]) Body height 61.75 [in_i] 61.75 [in_i] MEDENT ([facility]) 5'1.75" Body weight 200.00 [lb_av] 200.00 [lb_av] MEDEN T ([place] [facility]) Body mass index (BMI) [Ratio] 36.9 kg/m2 36.9 k g/m2 MEDENT ([place] [facility]) Systolic blood pressure 152 mm[Hg] 152 mm[Hg] EDENT ([place] [facility]) Diastolic blood pressure 89 mm[Hg] 89 mm[Hg] [facility] ([place] [facility]) Heart rate 90 /min 90 /min MED[facility] ([facility]) Respiratory rate 16 /min 16 /min MEDENT ( [place] [facility], [facility]) Oxygen saturation in Arterial blood by Pulse oximetry 97 % 97 % [facility] ([place] [facility]) Body temperature 98.5 [degF] 98.5 [degF] [facility] ([place] [facility], [facility]) Body weight 200.00 [lb_av] 200.00 [lb_av] MEDEN T ([place] [facility], [facility]) Body height 64 [in_i] 64 [in_i] MEDENT ([facility], [facility]) 5'4" Body mass index (BMI) [Ratio] 34.3 kg/m2 34.3 k g/m2 MEDENT ([place] [facility], [facility]) Body weight 199.6 [lb_av] 199.6 [lb_av] eCW1 ([facility]) Body weight 90.54 kg 90.54 kg eCW1 ([facility]) Body height 62 [in_i] 62 [in_i] eCW1 ([facility]) Body mass index (BMI) [Ratio] 36.50 kg/m2 36.50 kg/m2 eCW1 ([facility]) Heart rate 80 /min 80 /min eCW1 ([facility]) Respiratory rate 18 /min 18 /min eCW1 ([facility]) Body temperature 97.6 [degF] 97.6 [degF] eCW1 ( [facility]) Systolic blood pressure 190 mm[Hg] 190 mm[Hg] e CW1 ([facility]) Diastolic blood pressure 86 mm[Hg] 86 mm[Hg] eCW1 ([facility]) Body temperature 97.1 [degF] 97.1 [degF] MEDENT ([facility]) Body mass index (BMI) [Ratio] 38.1 kg/m2 38.1 k g/m2 MEDENT ([facility]) Body height 60.5 [in_i] 60.5 [in_i] MEDENT ([facility]) 5'0.50" Body weight 198.12 [lb_av] 198.12 [lb_av] MEDEN T ([facility]) Systolic blood pressure 138 mm[Hg] 138 mm[Hg] M EDENT ([place] [facility]) Diastolic blood pressure 88 mm[Hg] 88 mm[Hg] MEDENT ([place] [facility]) Heart rate 85 /min 85 /min MEDENT ([facility]) Body height 61.75 [in_i] 61.75 [in_i] MEDENT ([facility]) 5'1.75" Body weight 201.00 [lb_av] 201.00 [lb_av] MEDEN T ([place] [facility]) Oxygen saturation in Arterial blood by Pulse oximetry 96 % 96 % MEDENT ([place] [facility]) RM Air Body mass index (BMI) [Ratio] 37.1 kg/m2 37.1 k g/m2 MEDENT ([place] [facility]) Body height 61.75 [in_i] 61.75 [in_i] MEDENT ([facility] 5'1.75" Body weight 197.00 [lb_av] 197.00 [lb_av] MEDEN T ([place] [facility]) Body mass index (BMI) [Ratio] 36.3 kg/m2 36.3 k g/m2 MEDENT ([place] [facility]) Systolic blood pressure 130 mm[Hg] 130 mm[Hg] M EDENT ([place] [facility]) Diastolic blood pressure 74 mm[Hg] 74 mm[Hg] MEDENT ([place] [facility]) Heart rate 76 /min 76 /min MEDENT ([facility]) Body height 62 [in_i] 62 [in_i] eCW1 ([facility]) Body weight 198 [lb_av] 198 [lb_av] eCW1 ([facility]) Body mass index (BMI) [Ratio] 36.21 kg/m2 36.21 kg/m2 eCW1 ([facility]) Heart rate 83 /min 83 /min eCW1 ([facility]) Respiratory rate 18 /min 18 /min eCW1 ([facility]) Body temperature 98.2 [degF] 98.2 [degF] eCW1 ( [facility]) Systolic blood pressure 181 mm[Hg] 181 mm[Hg] e CW1 ([facility]) Diastolic blood pressure 98 mm[Hg] 98 mm[Hg] eCW1 ([facility]) Heart rate 68 /min 68 /min MEDENT ([facility]) Diastolic blood pressure 80 mm[Hg] 80 mm[Hg] MEDENT ([facility]) Respiratory rate 20 /min 20 /min MEDENT ( [facility]) Systolic blood pressure 130 mm[Hg] 130 mm[Hg] M EDENT ([facility]) Body mass index (BMI) [Ratio] 36.3 kg/m2 36.3 k g/m2 MEDENT ([facility]) Body height 61.75 [in_i] 61.75 [in_i] MEDENT ([facility]) 5'1.75" Body temperature 97.2 [degF] 97.2 [degF] MEDENT ([facility]) Body weight 197.00 [lb_av] 197.00 [lb_av] MEDEN T ([facility]) Heart rate 83 /min 83 /min eCW1 ([facility]) Body mass index (BMI) [Ratio] 36.50 kg/m2 36.50 kg/m2 eCW1 ([facility]) Systolic blood pressure 171 mm[Hg] 171 mm[Hg] e CW1 ([facility]) Body weight 199.6 [lb_av] 199.6 [lb_av] eCW1 ([facility]) Body height 62 [in_i] 62 [in_i] eCW1 ([facility]) Diastolic blood pressure 83 mm[Hg] 83 mm[Hg] eCW1 ([facility]) Respiratory rate 18 /min 18 /min eCW1 ([facility]) Body temperature 98.6 [degF] 98.6 [degF] eCW1 ( [facility]) Body weight 199 [lb_av] 199 [lb_av] eCW1 ([facility]) Body height 62 [in_i] 62 [in_i] eCW1 ([facility]) Body mass index (BMI) [Ratio] 36.39 kg/m2 36.39 kg/m2 eCW1 ([facility]) Heart rate 63 /min 63 /min eCW1 ([facility]) Respiratory rate 18 /min 18 /min eCW1 ([facility]) Body temperature 95.9 [degF] 95.9 [degF] eCW1 ( [facility]) Systolic blood pressure 147 mm[Hg] 147 mm[Hg] e CW1 ([facility]) Diastolic blood pressure 84 mm[Hg] 84 mm[Hg] eCW1 ([facility]) Systolic blood pressure 138 mm[Hg] 138 mm[Hg] [facility] Diastolic blood pressure 90 mm[Hg] 90 mm[Hg] [facility] Heart rate 74 /min 74 /min [facility] Respiratory rate 18 /min 18 /min [facility] Body weight 91.899 kg 91.899 kg [facility] Body mass index (BMI) [Ratio] 33.71 kg/m2 33.71 kg/m2 [facility] Oxygen saturation in Arterial blood by Pulse oximetry 96 % 96 % [facility] Systolic blood pressure 107 mm[Hg] 107 mm[Hg] [facility] Diastolic blood pressure 81 mm[Hg] 81 mm[Hg] [facility] Heart rate 75 /min 75 /min [facility] Body temperature 36.56 Joan 36.56 Joan [facility] Respiratory rate 18 /min 18 /min [facility] Oxygen saturation in Arterial blood by Pulse oximetry 96 % 96 % [facility] Body height 165.1 cm 165.1 cm [facility] Body weight 88.9 kg 88.9 kg [facility] Body mass index (BMI) [Ratio] 32.61 kg/m2 32.61 kg/m2 [facility] Body weight 202.2 [lb_av] 202.2 [lb_av] eCW1 ([facility]) Body height 62 [in_i] 62 [in_i] eCW1 ([facility]) Body mass index (BMI) [Ratio] 36.98 kg/m2 36.98 kg/m2 eCW1 ([facility]) Heart rate 85 /min 85 /min eCW1 ([facility]) Respiratory rate 18 /min 18 /min eCW1 ([facility]) Body temperature 97.7 [degF] 97.7 [degF] eCW1 ( [facility]) Systolic blood pressure 128 mm[Hg] 128 mm[Hg] e CW1 ([facility]) Diastolic blood pressure 74 mm[Hg] 74 mm[Hg] eCW1 ([facility]) Heart rate 92 /min 92 /min MEDENT ([facility] Body height 60 [in_i] 60 [in_i] MEDENT ([facility]) 5'0" Diastolic blood pressure 87 mm[Hg] 87 mm[Hg] [facility] ([facility]) Body mass index (BMI) [Ratio] 38.9 kg/m2 38.9 k g/m2 [facility] ([facility]) Respiratory rate 18 /min 18 /min [facility] ( [facility]) Systolic blood pressure 145 mm[Hg] 145 mm[Hg] [facility]) Body weight 199.12 [lb_av] 199.12 [lb_av] MEDEN T ([facility]) Systolic blood pressure 155 mm[Hg] 155 mm[Hg] [facility] ([facility]) Diastolic blood pressure 94 mm[Hg] 94 mm[Hg] [facility] ([facility]) Body height 63 [in_i] 63 [in_i] [facility] ([facility]) 5'3" Body weight 91.741 kg 91.741 kg [facility] ([facility]) Body surface area Derived from formula 1.94 m2 1.94 m2 [facility] ([facility]) Body weight 202.25 [lb_av] 202.25 [lb_av] MEDEN T ([facility]) Body mass index (BMI) [Ratio] 35.8 kg/m2 35.8 k g/m2 [facility] ([facility]) [place] body weight 115 [lb_av] 115 [lb_av] MEDEN T ([facility]) Body weight 201.38 [lb_av] 201.38 [lb_av] [facility] [facility] Oxygen saturation in Arterial blood by Pulse oximetry 99 % 99 % [facility] ([place] [facility]) Air Body mass index (BMI) [Ratio] 37.1 kg/m2 37.1 k g/m2 [facility] ([place] [facility]) Diastolic blood pressure 80 mm[Hg] 80 mm[Hg] [facility] ([place] [facility]) Systolic blood pressure 120 mm[Hg] 120 mm[Hg] M BHAVNA ([place] [facility]) Heart rate 87 /min 87 /min JAMILAH ([facility]) Body height 61.75 [in_i] 61.75 [in_i] JAMILAH ([facility]) 5'1.75" Systolic blood pressure 126 mm[Hg] 126 mm[Hg] [facility] Diastolic blood pressure 74 mm[Hg] 74 mm[Hg] [facility] Heart rate 78 /min 78 /min [facility] Body weight 91.173 kg 91.173 kg [facility] Body mass index (BMI) [Ratio] 36.76 kg/m2 36.76 kg/m2 [facility] Oxygen saturation in Arterial blood by Pulse oximetry 97 % 97 % [facility] Diastolic blood pressure 89 mm[Hg] 89 mm[Hg] COURT ([facility]) Systolic blood pressure 161 mm[Hg] 161 mm[Hg] A THENA ([facility]) Body height 62 [in_i] 62 [in_i] COURT ([facility]) Systolic blood pressure 161 mm[Hg] 161 mm[Hg] A THENA ([facility]) Diastolic blood pressure 89 mm[Hg] 89 mm[Hg] COURT ([facility]) Body height 62 [in_i] 62 [in_i] COURT ([facility]) Diastolic blood pressure 89 mm[Hg] 89 mm[Hg] COURT ([facility]) Body height 62 [in_i] 62 [in_i] COURT ([facility]) Systolic blood pressure 161 mm[Hg] 161 mm[Hg] A THENA ([facility]) Body height 62 [in_i] 62 [in_i] COURT ([facility]) Systolic blood pressure 161 mm[Hg] 161 mm[Hg] A THENA ([facility]) Diastolic blood pressure 89 mm[Hg] 89 mm[Hg] COURT ([facility]) Systolic blood pressure 134 mm[Hg] 134 mm[Hg] M BHAVNA ([place] [facility]) Body weight 200.00 [lb_av] 200.00 [lb_av] MEDEN T ([facility]) Oxygen saturation in Arterial blood by Pulse oximetry 98 % 98 % MEDENT ([facility] [place] [facility]) Body mass index (BMI) [Ratio] 36.9 kg/m2 36.9 k g/m2 MEDENT ([place] [facility]) Diastolic blood pressure 90 mm[Hg] 90 mm[Hg] MEDENT ([place] [facility]) Body height 61.75 [in_i] 61.75 [in_i] MED[facility] 5'1.75" Heart rate 80 /min 80 /min [facility] ([facility]) Systolic blood pressure 128 mm[Hg] 128 mm[Hg] [facility] Diastolic blood pressure 90 mm[Hg] 90 mm[Hg] [facility] Heart rate 91 /min 91 /min [facility] Body height 157.5 cm 157.5 cm [facility] Body weight 90.719 kg 90.719 kg [facility] Body mass index (BMI) [Ratio] 36.58 kg/m2 36.58 kg/m2 [facility] Oxygen saturation in Arterial blood by Pulse oximetry 95 % 95 % [facility] Heart rate 80 /min 80 /min [facility] ([facility]) Systolic blood pressure 178 mm[Hg] 178 mm[Hg] EDENT ([place] [facility]) headaches Systolic blood pressure 150 mm[Hg] 150 mm[Hg] [facility] [facility] Body mass index (BMI) [Ratio] 36.9 kg/m2 36.9 k g/m2 MEDENT ([facility] [place] [facility]) Diastolic blood pressure 100 mm[Hg] 100 mm[Hg] MEDENT ([facility] [place] [facility]) headaches Diastolic blood pressure 88 mm[Hg] 88 mm[Hg] MEDENT ([facility]) Body height 61.75 [in_i] 61.75 [in_i] MEDENT ([facility]) 5'1.75" Body weight 200.00 [lb_av] 200.00 [lb_av] MEDEN T ([facility]) Diastolic blood pressure 95 mm[Hg] 95 mm[Hg] COURT ([facility]) Body height 62 [in_i] 62 [in_i] COURT ([facility]) Systolic blood pressure 166 mm[Hg] 166 mm[Hg] A THENA ([facility]) Body height 62 [in_i] 62 [in_i] COURT ([facility]) Diastolic blood pressure 95 mm[Hg] 95 mm[Hg] COURT ([facility]) Systolic blood pressure 166 mm[Hg] 166 mm[Hg] A THENA ([facility]) Diastolic blood pressure 95 mm[Hg] 95 mm[Hg] COURT ([facility]) Body height 62 [in_i] 62 [in_i] COURT ([facility]) Systolic blood pressure 166 mm[Hg] 166 mm[Hg] A THENA ([facility]) Diastolic blood pressure 95 mm[Hg] 95 mm[Hg] COURT ([facility]) Body height 62 [in_i] 62 [in_i] COURT ([facility]) Systolic blood pressure 166 mm[Hg] 166 mm[Hg] A THENA ([facility]) Diastolic blood pressure 95 mm[Hg] 95 mm[Hg] COURT ([facility]) Body height 62 [in_i] 62 [in_i] COURT ([facility]) Systolic blood pressure 166 mm[Hg] 166 mm[Hg] A THENA ([facility]) Systolic blood pressure 157 mm[Hg] 157 mm[Hg] [facility] Diastolic blood pressure 92 mm[Hg] 92 mm[Hg] [facility] Heart rate 77 /min 77 /min [facility] Body temperature 36.44 Joan 36.44 Joan [facility] Respiratory rate 17 /min 17 /min [facility] Oxygen saturation in Arterial blood by Pulse oximetry 95 % 95 % [facility] Body weight 89.5 kg 89.5 kg [facility] Body mass index (BMI) [Ratio] 38.53 kg/m2 38.53 kg/m2 [facility] Body height 152.4 cm 152.4 cm [facility] Systolic blood pressure 140 mm[Hg] 140 mm[Hg] M EDENT ([facility]) Diastolic blood pressure 80 mm[Hg] 80 mm[Hg] MEDENT ([facility]) Body weight 201.00 [lb_av] 201.00 [lb_av] MEDEN T ([facility]) Body temperature 99.0 [degF] 99.0 [degF] MEDENT ([facility]) Systolic blood pressure 145 mm[Hg] 145 mm[Hg] M EDENT ([facility]) Diastolic blood pressure 96 mm[Hg] 96 mm[Hg] MEDENT ([facility]) Heart rate 74 /min 74 /min MEDENT ([facility]) Body temperature 97.1 [degF] 97.1 [degF] MEDENT ([facility]) Respiratory rate 16 /min 16 /min MEDENT ( [facility]) Oxygen saturation in Arterial blood by Pulse oximetry 94 % 94 % MEDENT ([facility]) Heart rate 87 /min 87 /min MEDENT ([facility] Respiratory rate 16 /min 16 /min MEDENT ( [facility]) Body weight 202.50 [lb_av] 202.50 [lb_av] MEDEN T ([facility]) Body height 60 [in_i] 60 [in_i] MEDENT ([facility] 5'0" Systolic blood pressure 151 mm[Hg] 151 mm[Hg] M EDENT ([facility]) Diastolic blood pressure 87 mm[Hg] 87 mm[Hg] MEDENT ([facility]) Body mass index (BMI) [Ratio] 39.5 kg/m2 39.5 k g/m2 MEDENT ([facility]) Diastolic blood pressure 95 mm[Hg] 95 mm[Hg] COURT ([facility]) Body height 62 [in_i] 62 [in_i] COURT ([facility]) Systolic blood pressure 175 mm[Hg] 175 mm[Hg] A THENA ([facility]) Systolic blood pressure 175 mm[Hg] 175 mm[Hg] A THENA ([facility]) Diastolic blood pressure 95 mm[Hg] 95 mm[Hg] COURT ([facility]) Body height 62 [in_i] 62 [in_i] COURT ([facility]) Diastolic blood pressure 95 mm[Hg] 95 mm[Hg] COURT ([facility]) Body height 62 [in_i] 62 [in_i] COURT ([facility]) Systolic blood pressure 175 mm[Hg] 175 mm[Hg] A THENA ([facility]) Diastolic blood pressure 95 mm[Hg] 95 mm[Hg] COURT ([facility]) Body height 62 [in_i] 62 [in_i] COURT ([facility]) Systolic blood pressure 175 mm[Hg] 175 mm[Hg] A THENA ([facility]) Diastolic blood pressure 95 mm[Hg] 95 mm[Hg] COURT ([facility]) Body height 62 [in_i] 62 [in_i] COURT ([facility]) Systolic blood pressure 175 mm[Hg] 175 mm[Hg] A THENA ([facility]) Diastolic blood pressure 95 mm[Hg] 95 mm[Hg] COURT ([facility]) Body height 62 [in_i] 62 [in_i] COURT ([facility]) Systolic blood pressure 175 mm[Hg] 175 mm[Hg] A THENA ([facility]) Systolic blood pressure 130 mm[Hg] 130 mm[Hg] M EDHEIDI ([facility]) Body height 61.75 [in_i] 61.75 [in_i] JAMILAH ([facility]) 5'1.75" Diastolic blood pressure 80 mm[Hg] 80 mm[Hg] JAMILAH ([facility]) Body mass index (BMI) [Ratio] 37.6 kg/m2 37.6 k g/m2 JAMILAH ([facility]) Body weight 204.00 [lb_av] 204.00 [lb_av] PETERSON Aguirre ([facility]) Patient Treatment Plan of Care Planned Activity Planned Date Details Description Data Source (s) onabotulinumtoxinA 100 UNT/ML Injectable Solution [Bot ox] 11/01/2020 12:00:00 AM EDT eCW1 ([facility]) onabotulinumtoxinA 100 UNT/ML Injectable Solution [Bot ox] 07/08/2020 12:00:00 AM EDT eCW1 ([facility]) Lisinopril 20 MG Oral Tablet 06/24/2020 12:00:00 AM EDT [facility] normal saline flush 0.9 % injection 3 mL 06/22/2020 03:00:00 PM EDT [facility] sodium chloride 0.9% (NS) infusion 06/22/2020 03:00:00 PM EDT [facility] Nitroglycerin 0.4 MG Sublingual Tablet 06/22/2020 02:18:36 PM EDT [facility] 10 ML Atropine Sulfate 0.1 MG/ML Prefilled Syringe 06/22/2020 02 :18:35 PM EDT [facility] normal saline flush 0.9 % injection 3 mL 06/22/2020 02:00:00 PM EDT [facility] normal saline flush 0.9 % injection 3 mL 06/22/2020 02:00:00 PM EDT [facility] clopidogrel 75 MG Oral Tablet 06/22/2020 12:00:00 AM EDT [facility] 24 HR Isosorbide Mononitrate 30 MG Extended Release Or al Tablet 06/16/2020 12:00:00 AM EDT [facility] Lisinopril 20 MG Oral Tablet 06/15/2020 12:00:00 AM EDT [facility] prednisolone acetate 10 MG/ML Ophthalmic Suspension 05/29/19 12:00:00 AM EDT [facility] clopidogrel 75 MG Oral Tablet 05/19/2020 12:00:00 AM EDT [facility] atorvastatin 80 MG Oral Tablet 04/28/2020 12:00:00 AM EST [facility] Bisoprolol Fumarate 10 MG Oral Tablet 04/28/2020 12:00:00 AM EST [facility] prednisolone acetate 10 MG/ML Ophthalmic Suspension 04/28/19 12:00:00 AM EST ELLIOTT (Pancho [facility]en [facility]) Lisinopril 10 MG Oral Tablet 03/11/2020 12:00:00 AM EST [facility] 120 ACTUAT Fluticasone propionate 0.23 M G/ACTUAT / salmeterol 0.021 MG/ACTUAT Metered Dose Inhaler [Advair] 03/06/2020 12:00:00 AM EST [facility] Bisoprolol Fumarate 10 MG Oral Tablet 01/29/2020 12:00:00 AM EST [facility] atorvastatin 80 MG Oral Tablet 01/29/2020 12:00:00 AM EST [facility] 24 HR Isosorbide Mononitrate 30 MG Extended Release Or al Tablet 01/24/2020 12:00:00 AM EST [facility] Bisoprolol Fumarate 5 MG Oral Tablet 01/24/2020 12:00:00 AM EST [facility] Lisinopril 5 MG Oral Tablet 01/23/2020 12:00:00 AM EST [facility] clopidogrel 75 MG Oral Tablet 01/23/2020 12:00:00 AM EST [facility] Trazodone Hydrochloride 100 MG Oral Tablet 01/08/2020 12:00:00 AM E [facility] clopidogrel 75 MG Oral Tablet 12/30/2019 12:00:00 AM EST [facility] 120 ACTUAT Fluticasone propionate 0.23 M G/ACTUAT / salmeterol 0.021 MG/ACTUAT Metered Dose Inhaler [Advair] 12/09/2019 12:00:00 AM EDT [facility] gabapentin 600 MG Oral Tablet 11/11/2019 12:00:00 AM EDT [facility] carvedilol 25 MG Oral Tablet 08/11/2019 12:00:00 AM EDT [facility] fluticasone (FLONASE) 50 MCG/ACT nasal spray 02/22/2019 12:00:00 AM EST [facility] loteprednol etabonate 0.005 MG/MG Ophthalmic Ointment [Lotemax] 02/08/2018 12:00:00 AM EST JERI ([facility]) Lisinopril 2.5 MG Oral Tablet 05/17/2016 12:00:00 AM EDT [facility] atorvastatin 40 MG Oral Tablet 03/17/2016 12:00:00 AM EST [facility] Melatonin 10 MG Oral Tablet 03/17/2016 12:00:00 AM EST [facility] alcaftadine 2.5 MG/ML Ophthalmic Solution [Lastacaft] 01/20/2016 12:00:00 AM EST JERI ([facility]) Oxycodone Hydrochloride [address] ([facility]) Ondansetron [address] ([facility]) Nystatin 346892 UNT/ML Topical Cream COURT ([facility]) NITROFURANTOIN, MACROCRYSTALS 25 MG / Ni trofurantoin, Monohydrate [address] [facility] Lisinopril [address] ([facility]) Lisinopril 2.[address] ([facility]) Lisinopril [address] ([facility]) Isosorbide Dinitrate [address] ([facility]) Ibuprofen [address] ([facility]) Acetaminophen 325 MG / Hydrocodone Bitartrate [address] ([facility]) Doxycycline Monohydrate [address] ([facility]) Clonazepam 0.[address] ([facility]) Cephalexin [address] ([facility]) carvedilol [address] ([facility]) Bisoprolol Fumarate [address] ([facility]) atorvastatin [address] ([facility]) Trazodone Hydrochloride [address] ([facility]) tramadol hydrochloride [address] ([facility]) Oxycodone Hydrochloride [address] ([facility]) Ondansetron 4 MG Oral Tablet COUTR ([facility]) Nystatin [id number] UNT/ML Topical Cream COURT ([facility]) NITROFURANTOIN, MACROCRYSTALS 25 MG / Ni trofurantoin, Monohydrate [address] [facility] Lisinopril [address] ([facility]) Lisinopril 2.[address] ([facility] Lisinopril [address] ([facility]) Isosorbide Dinitrate [address] ([facility]) Ibuprofen [address] ([facility]) Acetaminophen 325 MG / Hydrocodone Bitartrate [address] ([facility]) Clonazepam 0.[address] ([facility]) carvedilol [address] ([facility]) Bisoprolol Fumarate [address] ([facility]) atorvastatin [address] ([facility]) Trazodone Hydrochloride [address] ([facility]) tramadol hydrochloride [address] ([facility]) Oxycodone Hydrochloride [address] ([facility]) Ondansetron [address] ([facility]) Nystatin [id number] UNT/ML Topical Cream COURT ([facility]) NITROFURANTOIN, MACROCRYSTALS 25 MG / Ni trofurantoin, Monohydrate [address] ([facility]) Lisinopril [address] ([facility]) Lisinopril 2.[address] ([facility]) Lisinopril [address] ([facility]) Isosorbide Dinitrate [address] ([facility]) Ibuprofen [address] ([facility]) Acetaminophen 325 MG / Hydrocodone Bitartrate [address] ([facility]) Doxycycline Monohydrate [address] ([facility]) Clonazepam 0.[address] ([facility]) Cephalexin [address] ([facility]) carvedilol [address] ([facility]) Bisoprolol Fumarate [address] ([facility]) atorvastatin [address] ([facility]) Trazodone Hydrochloride [address] ([facility]) tramadol hydrochloride [address] ([facility]) 24 HR Isosorbide Mononitrate 30 MG Extended Release Oral Tablet [facility] Oxycodone Hydrochloride 5 MG Oral Tablet [facility] Diclofenac Sodium 0.01 MG/MG Topical Gel [facility] 120 ACTUAT Fluticasone propionate 0.115 MG/ACTUAT / salmeterol 0.021 MG/ACTUAT Metered Dose Inhaler [facility] Trazodone Hydrochloride 150 MG Oral Tablet [facility] Trazodone Hydrochloride [address] ([facility]) tramadol hydrochloride [address] ([facility]) Oxycodone Hydrochloride [address] ([facility]) Ondansetron [address] ([facility]) Nystatin 860300 UNT/ML Topical Cream COURT ([facility]) Lisinopril 2.[address] ([facility]) Isosorbide Dinitrate [address] ([facility]) Acetaminophen 325 MG / Hydrocodone Bitartrate [address] ([facility]) fluticasone propionate 50 mcg/actuation nasal spray,suspension COURT ([facility]) Bisoprolol Fumarate [address] ([facility]) atorvastatin [address] ([facility]) Oxycodone Hydrochloride [address] ([facility]) Ondansetron [address] ([facility]) Isosorbide Dinitrate [address] ([facility]) fluticasone propionate 50 mcg/actuation nasal spray,suspension COURT ([facility]) CALCIUM CARBONATE-VITAMIN D PO [facility] Trazodone Hydrochloride [address] ([facility])
[2021-01-22 22:17] LABS: VENOUS BASE EXCESS -1.1 (-2.0-2.0); VENOUS HCO3 23.8 MEQ/L (23.0-27.0); VENOUS O2 SATURATION 70.7 % (60.0-80.0); VENOUS PARTIAL PRESSURE CO2 40.6 mmHg (38.0-50.0); VENOUS PARTIAL PRESSURE O2 36.2 mmHg (30.0-50.0); VENOUS PH 7.386 UNITS (7.330-7.430); VENOUS STANDARD HCO3 22.9 MEQ/L; VENOUS TOTAL CO2 25.1 MEQ/L (24.0-28.0)
[2021-01-22 22:40] LABS: BASO # 0.1 10^3/uL (0.0-0.2); BASO % 0.4 % (0.0-1.0); EOS % 0.3 % (0.0-3.0); HEMATOCRIT 38.3 % (36.0-47.0); HEMOGLOBIN 12.5 g/dl (12.0-15.5); LYMPH # 1.1 10^3/uL (1.5-5.0); LYMPH % 9.5 % (24.0-44.0); MEAN CORPUSCULAR HEMOGLOBIN 30.1 pg (27.0-33.0); MEAN CORPUSCULAR HGB CONC 32.6 g/dl (32.0-36.5); MEAN CORPUSCULAR VOLUME 92.3 fl (80.0-96.0); MONO # 1.3 10^3/uL (0.0-0.8); MONO % 11.3 % (2.0-8.0); PLATELET COUNT, AUTOMATED 324 10^3/uL (150-450); RED BLOOD COUNT 4.15 10^6/uL (4.00-5.40); WHITE BLOOD COUNT 11.5 10^3/uL (4.0-10.0)
--- OUTSIDE RECORDS SUMMARY | 2021-01-22 22:41 | CCD ---
Author Author [facility] Organization [facility] Address Unknown Phone Unavailable Care Team Providers Care Quilting Supervisor Name Role Phone Laci Sayda Palafox [facility], PA-C Unavailable Unavailabl e Fish, Sayda [facility], PA-C Unavailable Unavailabl e Fish, Sayda [facility], PA-C Unavailable Unavailabl e Fish, Sayda [facility], PA-C Unavailable Unavailabl e Fish, Sayda [facility], PA-C Unavailable Unavailabl e Fish, Sayda [facility], PA-C Unavailable Unavailabl e Fish, Sayda [facility], PA-C Unavailable Unavailabl e Fish, Sayda [facility], PA-C Unavailable Unavailabl e Fish, Sayda [facility], PA-C Unavailable Unavailabl e Fish, Sayda [facility], PA-C Unavailable Unavailabl e Fish, Sayda [facility], PA-C Unavailable Unavailabl e Fish, Sayda [facility], PA-C Unavailable Unavailabl e Fish, Sayda [facility], PA-C Unavailable Unavailabl e Fish, Sayda [facility], PA-C Unavailable Unavailabl e Fish, Sayda [facility], PA-C Unavailable Unavailabl e Fish, Sayda Vivienne [facility], PA-C Unavailable Unavailabl e Fish, [facility], PA-C Unavailable Unavailabl e Fish, [facility], PA-C Unavailable Unavailabl e Fish, [facility], PA-C Unavailable Unavailabl e Fish, [facility], PA-C Unavailable Unavailabl e Fish, [facility], PA-C Unavailable Unavailabl e Fish, [facility], PA-C Unavailable Unavailabl e Fish, [facility], PA-C Unavailable Unavailabl e Fish, [facility], PA-C Unavailable Unavailabl e Fish, [facility], PA-C Unavailable Unavailabl e Fish, [facility], PA-C Unavailable Unavailabl e Fish, [facility], PA-C Unavailable Unavailabl e Fish, [facility], PA-C Unavailable Unavailabl e Fish, [facility], PA-C Unavailable Unavailabl e Fish, [facility], PA-C Unavailable Unavailabl e Fish, [facility], PA-C Unavailable Unavailabl e Fish, [facility], PA-C Unavailable Unavailabl e Fish, [facility], PA-C Unavailable Unavailabl e Fish, [facility], PA-C Unavailable Unavailabl e Fish, [facility], PA-C Unavailable Unavailabl e Fish, [facility], PA-C Unavailable Unavailabl e JOHN PHILLIPS [...] Unavailable Martin, M Barratt PA Unavailable Unavailable Mratin, M Barratt PA Unavailable Unavailable Martin, M [...] Unavailable Unavailable JOSE, BHUPENDRA PA Unavailable Unavailable OJSE, BHUPENDRA PA Unavailable Unavailable JOSE, BHUPENDRA PA Unavailable Unavailable JOSE, BHUPENDRA PA Unavailable Unavailable JOSE, BHUPENDRA PA Unavailable Unavailable JOSE, BHUPENDAR PA Unavailable Unavailable JOSE, BHUPENDRA PA Unavailable [...] BHUPENDRA PA Unavailable Unavailable Jumalon, M Razia CELERY STRIPPER Unavailable Unavailable Jumalon, M Razia CELERY STRIPPER Unavailable Unavailable Jumalon, M Razia CELERY STRIPPER Unavailable Unavailable Jumalon, M Razia CELERY STRIPPER Unavailable Unavailable Jumalon, M Razia CELERY STRIPPER Unavailable Unavailable Jumalon, M Razia CELERY STRIPPER Unavailable Unavailable Jumalon, M Razia CELERY STRIPPER Unavailable Unavailable Jumalon, M Razia CELERY STRIPPER Unavailable Unavailable Jumalon, M Razia CELERY STRIPPER Unavailable Unavailable Jumalon, M Razia CELERY STRIPPER Unavailable Unavailable Jumalon, M Razia CELERY STRIPPER Unavailable Unavailable Jumalon, M Razia CELERY STRIPPER Unavailable Unavailable Jumalon, M Razia CELERY STRIPPER Unavailable Unavailable Jumalon, M Razia CELERY STRIPPER Unavailable Unavailable Jumalon, M Razia CELERY STRIPPER Unavailable Unavailable Jumalon, M Razia CELERY STRIPPER Unavailable Unavailable Jumalon, M Razia CELERY STRIPPER Unavailable Unavailable Jumalon, M Razia CELERY STRIPPER Unavailable Unavailable Jumalon, M Razia CELERY STRIPPER Unavailable Unavailable Jumalon, M Razia CELERY STRIPPER Unavailable Unavailable Jumalon, M Razia CELERY STRIPPER Unavailable Unavailable Jumalon, M Razia CELERY STRIPPER Unavailable Unavailable Jumalon, M Razia CELERY STRIPPER Unavailable Unavailable Jumalon, M Razia CELERY STRIPPER Unavailable Unavailable Jumalon, M Razia CELERY STRIPPER Unavailable Unavailable Jumalon, M Razia CELERY STRIPPER Unavailable Unavailable Jumalon, M Razia CELERY STRIPPER Unavailable Unavailable Jumalon, M Razia CELERY STRIPPER Unavailable Unavailable Jumalon, M Razia CELERY STRIPPER Unavailable Unavailable Jumalon, M Razia CELERY STRIPPER Unavailable Unavailable Rena Larsen, Kandi Deleon MD, [...] MD, FACS Unavailable Unavailable LePine, M Tracey ROLL ON MAN Unavailable Unavailable LePine, M Tracey ROLL ON MAN Unavailable Unavailable LePine, M Tracey ROLL ON MAN Unavailable Unavailable LePine, M Tracey ROLL ON MAN Unavailable Unavailable LePine, M Tracey ROLL ON MAN Unavailable Unavailable LePine, M Tracey ROLL ON MAN Unavailable Unavailable LePine, M Tracey ROLL ON MAN Unavailable Unavailable LePine, M Tracey ROLL ON MAN Unavailable Unavailable LePine, M Tracey ROLL ON MAN Unavailable Unavailable LePine, M Tracey ROLL ON MAN Unavailable Unavailable LePine, M Tracey ROLL ON MAN Unavailable Unavailable LePine, M Tracey ROLL ON MAN Unavailable Unavailable LePine, M Tracey ROLL ON MAN Unavailable Unavailable LePine, M Tracey ROLL ON MAN Unavailable Unavailable LePine, M Tracey ROLL ON MAN Unavailable Unavailable LePine, M Tracey ROLL ON MAN Unavailable Unavailable LePine, M Tracey ROLL ON MAN Unavailable Unavailable LePine, M Tracey ROLL ON MAN Unavailable Unavailable LePine, M Tracey ROLL ON MAN Unavailable Unavailable LePine, M Tracey ROLL ON MAN Unavailable Unavailable LePine, M Tracey ROLL ON MAN Unavailable Unavailable LePine, M Tracey ROLL ON MAN Unavailable Unavailable LePine, M Tracey ROLL ON MAN Unavailable Unavailable LePine, M Tracey ROLL ON MAN Unavailable Unavailable LePine, M Tracey ROLL ON MAN Unavailable Unavailable LePine, M Tracey ROLL ON MAN Unavailable Unavailable LePine, M Tracey ROLL ON MAN Unavailable Unavailable LePine, M Tracey ROLL ON MAN Unavailable Unavailable LePine, M Tracey ROLL ON MAN Unavailable Unavailable LePine, M Tracey ROLL ON MAN Unavailable Unavailable LePine, M Tracey ROLL ON MAN Unavailable Unavailable LePine, M Tracey ROLL ON MAN Unavailable Unavailable LePine, M Tracey ROLL ON MAN Unavailable Unavailable LePine, M Tracey ROLL ON MAN Unavailable Unavailable LePine, M Tracey ROLL ON MAN Unavailable Unavailable LePine, M Tracey ROLL ON MAN Unavailable Unavailable LePine, M Tracey ROLL ON MAN Unavailable Unavailable LePine, M Tracey ROLL ON MAN Unavailable Unavailable LePine, M Tracey ROLL ON MAN Unavailable Unavailable LePine, M Tracey ROLL ON MAN Unavailable Unavailable LePine, M Tracey ROLL ON MAN Unavailable Unavailable LePine, M Tracey ROLL ON MAN Unavailable Unavailable LePine, M Tracey ROLL ON MAN Unavailable Unavailable LePine, M Tracey ROLL ON MAN Unavailable Unavailable LePine, M Tracey ROLL ON MAN Unavailable Unavailable LePine, M Tracey ROLL ON MAN Unavailable Unavailable LePine, M Tracey ROLL ON MAN Unavailable Unavailable LePine, M Tracey ROLL ON MAN Unavailable Unavailable LePine, M Tracey ROLL ON MAN Unavailable Unavailable LePine, M Tracey ROLL ON MAN Unavailable Unavailable LePine, M Tracey ROLL ON MAN Unavailable Unavailable LePine, M Tracey ROLL ON MAN Unavailable Unavailable LePine, M Tracey ROLL ON MAN Unavailable Unavailable LePine, M Tracey ROLL ON MAN Unavailable Unavailable LePine, M Tracey ROLL ON MAN Unavailable Unavailable LePine, M Tracey ROLL ON MAN Unavailable Unavailable LePine, M Tracey ROLL ON MAN Unavailable Unavailable Jamshid Tapia MD Unavailable Unavailable [...] Unavailable Unavailable Jamshid Tapia MD Unavailable Unavailable Jamsihd Tapia MD Unavailable Unavailable Jamshid Tapia MD [...] Unavailable Jamshid Tapia MD Unavailable Unavailable Jamshid aTpia MD Unavailable Unavailable Jamshid Tapia MD Unavailable [...] MARLENE PA-C Unavailable Unavailable Pierre, D Apple CELERY STRIPPER-C Unavailable Unavailable Pierre, D Apple CELERY STRIPPER-C Unavailable Unavailable Pierre, D Appel CELERY STRIPPER-C Unavailable Unavailable Pierre, D Apple CELERY STRIPPER-C Unavailable Unavailable Pierre, D Apple CELERY STRIPPER-C Unavailable Unavailable Pierre, D Apple CELERY STRIPPER-C Unavailable Unavailable Pierre, D Apple CELERY STRIPPER-C Unavailable Unavailable Shayy Reyes MD Unavailable Unavailable [...] KENA PA Unavailable Unavailable Fons, M Tracey CELERY STRIPPER Unavailable Unavailable Fons, M Tracey CELERY STRIPPER Unavailable Unavailable Fons, M Tracey CELERY STRIPPER Unavailable Unavailable Fons, M Tracey CELERY STRIPPER Unavailable Unavailable Fons, M Tracey CELERY STRIPPER Unavailable Unavailable Fons, M Tracey CELERY STRIPPER Unavailable Unavailable Fons, M Tracey CELERY STRIPPER Unavailable Unavailable Fons, M Tracey CELERY STRIPPER Unavailable Unavailable Fons, M Tracey CELERY STRIPPER Unavailable Unavailable Fons, M Tracey CELERY STRIPPER Unavailable Unavailable Fons, M Tracey CELERY STRIPPER Unavailable Unavailable Fons, M Tracey CELERY STRIPPER Unavailable Unavailable Fons, M Tracey CELERY STRIPPER Unavailable Unavailable Fons, M Tracey CELERY STRIPPER Unavailable Unavailable Fons, M Tracey CELERY STRIPPER Unavailable Unavailable Fons, M Tracey CELERY STRIPPER Unavailable Unavailable Fons, M Tracey CELERY STRIPPER Unavailable Unavailable Fons, M Tracey CELERY STRIPPER Unavailable Unavailable Fons, M Tracey CELERY STRIPPER Unavailable Unavailable Fons, M Tracey CELERY STRIPPER Unavailable Unavailable Fons, M Tracey CELERY STRIPPER Unavailable Unavailable Fons, M Tracey CELERY STRIPPER Unavailable Unavailable Fons, M Tracey CELERY STRIPPER Unavailable Unavailable Fons, M Tracey CELERY STRIPPER Unavailable Unavailable Fons, M Tracey CELERY STRIPPER Unavailable Unavailable Fons, M Tracey CELERY STRIPPER Unavailable Unavailable Fons, M Tracey CELERY STRIPPER Unavailable Unavailable Fons, M Tracey CELERY STRIPPER Unavailable Unavailable Fons, M Tracey CELERY STRIPPER Unavailable Unavailable Fons, M Tracey CELERY STRIPPER Unavailable Unavailable Fons, M Tracey CELERY STRIPPER Unavailable Unavailable Fons, M Tracey CELERY STRIPPER Unavailable Unavailable Fons, M Tracey CELERY STRIPPER Unavailable Unavailable Fons, M Tracey CELERY STRIPPER Unavailable Unavailable Fons, M Tracey CELERY STRIPPER Unavailable Unavailable Fons, M Tracey CELERY STRIPPER Unavailable Unavailable Fons, M Tracey CELERY STRIPPER Unavailable Unavailable Fons, M Tracey CELERY STRIPPER Unavailable Unavailable Fons, M Tracey CELERY STRIPPER Unavailable Unavailable Fons, M Tracey CELERY STRIPPER Unavailable Unavailable Fons, M Tracey CELERY STRIPPER Unavailable Unavailable Fons, M Tracey CELERY STRIPPER Unavailable Unavailable Fons, M Tracey CELERY STRIPPER Unavailable Unavailable Fons, M Tracey CELERY STRIPPER Unavailable Unavailable Fons, M Tracey CELERY STRIPPER Unavailable Unavailable Fons, M Tracey CELERY STRIPPER Unavailable Unavailable Fons, M Tracey CELERY STRIPPER Unavailable Unavailable Fons, M Tracey CELERY STRIPPER Unavailable Unavailable Fons, M Tracey CELERY STRIPPER Unavailable Unavailable Fons, M Tracey CELERY STRIPPER Unavailable Unavailable Fons, M Tracey CELERY STRIPPER Unavailable Unavailable Fons, M Tracey CELERY STRIPPER Unavailable Unavailable Fons, M Tracey CELERY STRIPPER Unavailable Unavailable Campbell, V JIA PA-C Unavailable Unavailable Nancy, V JIA PA-C Unavailable Unavailable Nancy, V JIA PA-C Unavailable Unavailable Campbell, V JIA PA-C Unavailable Unavailable Campbell, V JIA PA-C Unavailable Unavailable Campbell, V JIA PA-C Unavailable Unavailable Campbell, V JIA PA-C Unavailable Unavailable Campbell, V JIA PA-C Unavailable Unavailable Campbell, V JIA PA-C Unavailable Unavailable Nancy, V JIA PA-C Unavailable Unavailable Campbell, V JIA PA-C Unavailable Unavailable Campbell, V JIA PA-C Unavailable Unavailable Campbell, V JIA PA-C Unavailable Unavailable Nancy, V [...] Unavailable Deven Farnsworth JR, MD Unavailable Unavailable Deevn Farnsworth JR, MD Unavailable Unavailable Deven Farnsworth [...] is protected by Article 27-F of the [facility] Public Health law. If you continue you may have access to information: Regarding HIV / AIDS; Provided by facilities licensed or operated by the [facility] Office of Mental Health; or Provided by the [facility] Office for People With Developmental Disabilities. If such information is present, then the following [facility] mandated warning applies: This information has [...] law may result in a fine or usp sentence or both. A general authorization for the release of medical or other information is NOT sufficient authorization for further disc losure. Allergies and Adverse Reactions Type Description Substance Reaction Status Data Source(s ) Propensity to adverse reactions MORPHINE Morphine Acti ve [facility] Propensity to adverse reactions ADHESIVE TAPE Adhesive Tape Rash Low Active [facility] Low Family History Family Member Name Family Member Gender Family Member Status Date o f Status Description Data Source(s) Unknown Unknown Problem MEDENT ([facility]) brothers in 40's with [place] and survived. Encounters Encounter Providers Location Date Indications Data Source(s ) Outpatient Attender: RUBÉN chance 01/07/2021 11:25:00 AM EST [facility] ([facility], [facility]) Razia Valenzuelaalma, 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: [address], [place] [address], Ph. Attender: Razia Hussein [facility] - [facility] - Main Office 12/31/2020 12:00:00 AM EST ATHE NA ([facility]) Razia Alcon Hussein, 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: [address], [place] [address], Ph. Attender: Razia Hussein [facility] - Main Office 12/31/2020 12:00:00 AM EST ATHE NA ([facility]) Outpatient Attender: Apple Pierre CELERY STRIPPER-C Main Office 12/16/2020 02:30:00 PM EDT [facility] ([facility]) Outpatient Attender: Tenzin GARCIA Physical Therapy 09:30:00 AM EDT MEDENT ([facility]) Office Visit Attender: KENA GARCIA Physical Therapy 2020 01:40:00 PM EDT MED[facility] ([facility]) Outpatient Attender: Ragini GARCIA Main office - [facility] 11/30/2020 01:45:00 PM EDT MED[facility] ([facility]) Outpatient Attender: JOHN PHILLIPS MD Main Office 11/26/2020 10:30:00 AM EDT [facility] ([facility]) OFFICE OUTPATIENT VISIT 15 MINUTES Attender: Vivienne PICKENS PA-C Physical Therapy 11/23/2020 11:15:00 AM EDT MEDENT ([facility]) Razia Alcon Hussein, 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: [address], [address], [place] [address], Ph. Attender: Razia Hussein [facility] 11/19/2020 12:00:00 AM EDT ATHE NA ([facility]) Razia Hussein, 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: [address], [address], [place] [address], Ph. Attender: Razia Hussein [facility] 11/19/2020 12:00:00 AM EDT ATHE NA ([facility]) Razia Hussein, 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: [address], [place] [address], Ph. Attender: Razia Hussein [facility] 11/19/2020 12:00:00 AM EDT ATHE NA ([facility]) Outpatient Attender: MARLENE Escalante 0 11/12/2020 02:00:00 PM EDT MEDENT ([facility] ) Outpatient Attender: Tenzin GARCIA Physical Therapy 02:40:00 PM EDT MEDENT ([facility]) Outpatient Attender: MARLENE Escalante 0 11/11/2020 01:40:00 PM EDT MED[facility] ([facility] ) Outpatient Attender: MARLENE Escalante 0 11/10/2020 01:40:00 PM EDT MED[facility] ([facility] ) Outpatient Attender: BHUPENDRA scott 11/08/2020 01:50:00 PM EDT [facility] ([facility] Out[place] [address] [facility] [address] 11/08/2020 12:00:00 AM EDT eCW1 ([facility]) OFFICE OUTPATIENT VISIT 15 MINUTES Attender: RUBÉN GARCIA Physical Therapy 11/04/2020 02:00:00 PM EDT MEDENT ([facility]) Unknown [address] [facility] [address] 11/04/2020 12:00:00 AM EDT eCW1 ([facility]) Outpatient Attender: MARLENE Escalante 0 11/01/2020 10:40:00 AM EDT MED[facility] ([facility] ) Unknown [address] [facility] [place] [address] 11/01/2020 12:00:00 AM EDT eCW1 ([facility]) Outpatient Attender: Bill Escalante 10/04 11:30:00 AM EDT [facility] ([facility] ) Outpatient [address] [facility] [place] [address] 09/30/2020 12:00:00 AM EDT eCW1 ([facility]) Unknown [address] [facility] Y [address] 09/30/2020 12:00:00 AM EDT eCW1 ([facility]) OFFICE OUTPATIENT VISIT 15 MINUTES Attender: KENA GARCIA Phys ical Therapy 09/29/2020 11:00:00 AM EDT MEDENT ([facility]) Outpatient Attender: Tracey BUCKLEY SJP.LEOPOLDO-SJP.LEOPOLDO 12:00:00 AM EDT - 09/28/2020 10:42:21 AM EDT [facility] Outpatient Attender: Ragini GARCIA Main office - [facility] 08/31/2020 10:00:00 AM EDT MEDENT ([facility]) OFFICE OUTPATIENT VISIT 15 MINUTES Attender: KENA GARCIA Phys ical Therapy 08/17/2020 02:30:00 PM EDT MED[facility] ([facility]) Outpatient [address] [facility] [place] [address] 08/16/2020 12:00:00 AM EDT eCW1 ([facility]) (PN Proc 45) Pain Procedure 45 [address] [place] [address] 07/15/2020 12:00:00 AM EDT eCW1 ([facility]) Unknown [address] [facility], [facility] [address] 07/14/2020 12:00:00 AM EDT eCW1 ([facility]) Unknown [address] [facility], [facility] [address] 07/08/2020 12:00:00 AM EDT eCW1 ([facility]) Outpatient Attender: Tracey VASQUEZ-SJPDianeLEOPOLDO 11:10:28 AM EDT - 06/29/2020 12:17:52 PM EDT [facility] Outpatient Attender: Audra Gomes MDAdmitter: Audra us MD [email or web address] 06/22/2020 11:07:00 AM EDT - 06/22/2020 06:00:00 PM EDT [facility] Patient discharged. Unknown [address] [facility] [id number] 06/22/2020 12:00:00 AM EDT eCW1 ([facility]) Outpatient Attender: Tracey VASQUEZ-SJPDianeLEOPOLDO 06/17/2020 12:00:00 AM EDT [facility] Outpatient [address] [facility] [id number] 06/17/2020 12:00:00 AM EDT eCW1 ([facility]) Outpatient Attender: Tracey Araujo FNPReferrer: Tracey MYERS-SJPDianeLEOPOLDO 06/15/2020 10:50:41 AM EDT - 06/15/2020 12:24:30 PM EDT [facility] Outpatient Attender: Trcaey Araujo FNPReferrer: Tracey MYERS-SJSue 06/15/2020 10:50:16 AM EDT - 06/15/2020 12:23:33 PM EDT [facility] Outpatient Attender: JOHN PHILLIPS MD Main Office 05/26/2020 10:30:00 AM EDT MED[facility] ([facility]) Outpatient Attender: Brant Zamarripa/Kasey/Amrit/Rein dl 05/24/2020 03:15:00 PM EDT MEDENT ([facility]) Outpatient Attender: Ragini GARCIA Main office [facility] 05/24/2020 11:30:00 AM EDT MEDENT ([facility]) Outpatient Attender: Bill Escalante 05/03 03:00:00 PM EDT MEDENT ([facility] ) <td ID="encounterTypeDescriptionID0">1 Y ear Follow-Up</td><td>Pancho Larsen MD, FACS</td><td>Pancho Mayorga MD [facility]</td><td>04/27/2020</td><td>9:16AM</td><td>04/25/2019 11:59PM</td><td> <content ID="encounterDiagnosisID0-0">Essential Hypertension</content>, <content ID="encounterDiagnosisID0-1">Retinopathy Hypertensive</content>, <content ID="encounterDiagnosisID0-2">Conjunctivitis Chronic Allergic</content>, <content ID="encounterDiagnosisID0-3">Dry Eye Syndrome Both Eyes</content></td>Outpatient Attender: Pancho Larsen MD, FACS Pancho Mayorga MD [facility] 04/27/2020 09:16:00 AM EST - 04/25/2019 11:59:00 PM EST Retinopathy HypertensiveDry Eye Syndrome Both EyesEssential HypertensionConjunctivitis Chronic Allergic JERI (Pancho Larsen MD [facility]) 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 Attender: Razia Hussein [facility] 03/09/2020 12:00:00 AM EST ATHE NA ([facility]) Razia Hussein, 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: [address], [place] [address], Ph. Attender: Razia Hussein [facility] 03/09/2020 12:00:00 AM EST ATHE NA ([facility]) [facility], 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: [address], [place] [address], Ph. Attender: Razia Hussein [facility] 03/09/2020 12:00:00 AM EST ATHE NA ([facility]) [facility], 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: [address], [place] [address], Ph. Attender: Razia Hussein [facility] 03/09/2020 12:00:00 AM EST ATHE NA ([facility]) Outpatient Attender: Tracey Escalante 03/05 02:00:00 PM EST MEDENT ([facility] ) Office Visit Attender: Ragini GARCIA [facility] 02/23/2020 09:45:00 AM EST MEDENT ([facility]) Outpatient Attender: Tracey BUCKLEY SJP.LEOPOLDO-SJP.LOEPOLDO 01/29/2020 12:00:00 AM EST [facility] Outpatient Attender: Bill Escalante 01/27 10:30:00 AM EST MEDENT ([facility] ) Razia Rondon Jovita, 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: [address], [place] [address], Ph. Attender: Razia Weatherssoo [facility] 01/26/2020 12:00:00 AM EST ATHE NA ([facility]) Razia Hussein, 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: [address], [place] [address], Ph. Attender: Razia Jovita [facility] 01/26/2020 12:00:00 AM EST ATHE NA ([facility]) Razia Rondon Sarahysoo, 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: [address], [place] [address], Ph. Attender: Razia Biancaalma [facility] 01/26/2020 12:00:00 AM EST ATHE NA ([facility]) Razia Rondon Sarahysoo, 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: [address], [place] [address], Ph. Attender: Razia Hussein [facility] 01/26/2020 12:00:00 AM EST ATHE NA ([facility]) Razia Hussein, 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: [address], [place] [address], Ph. Attender: Razia Hussein [facility] 01/26/2020 12:00:00 AM EST ATHE NA ([facility]) Outpatient Attender: Audra Gomes MDAdmitter: Audra us MD [id number] 01/21/2020 08:39:00 AM EST - 01/23/2020 03:40:00 PM EST [facility] Patient discharged. Outpatient Referrer: Shayy Reyes MD [email or web address] 12/20 12:00:00 AM EST - 01/07/2020 12:39:01 PM EST [facility] Outpatient Attender: Robert Dela Cruz PAConsultant: Bill fisher MD 01/05/2020 11:25:00 AM EST - 01/05/2020 11:25:00 AM EST [facility] Outpatient Attender: Shayy Reyes MD [email or web address] 12/20 12:00:00 AM EST - 12/30/2019 02:49:16 PM EST [facility] Outpatient Attender: JOHN PHILLIPS MD Main Office 12/29/2019 10:00:00 AM EST MEDENT ([facility] [place], 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: [address], [place] [address], Ph. Attender: Razia Valenzuelaalma [facility] Office 12/15/2019 12:00:00 AM EDT ATHE NA ([facility]) Razia [facility], 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: [address], [place] [address], Ph. Attender: Razia Hussein [facility] - Main Office 12/15/2019 12:00:00 AM EDT ATHE NA ([facility]) [facility]ia [facility], 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: [address], [place] [address], Ph. Attender: Razia Hussein [facility] 12/15/2019 12:00:00 AM EDT ATHAmador NA ([facility]) Razia Hussein, 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: [address], [place] [address], Ph. Attender: Razia Hussein [facility] 12/15/2019 12:00:00 AM EDT ATHE NA ([facility]) Razia Hussein, 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: [address], [place] [address], Ph. Attender: Razia Hussein [facility] 12/15/2019 12:00:00 AM EDT ATHAmador NA ([facility]) Razia Hussein, 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: [address], [place] [address], Ph. Attender: Razia Hussein [facility] 12/15/2019 12:00:00 AM EDT DOMENICA PEARSON ([facility]) Outpatient Attender: MARLENE Cee 11:00:00 AM EDT MEDENT ([facility] ) Immunizations Vaccine Date Status Description Data Source(s) COVID-19 VACCINE Pfizer 12/11/2020 12:00:00 AM EDT completed [place] Vaccine Series Complete: YESThis Data wa s Submitted to [facility] Via [employer]. COVID-19 VACCINE Pfizer 04/17/2020 12:00:00 AM EST completed [place] Vaccine Series Complete: YESThis Data wa s Submitted to [facility] Via [employer]. COVID-19 VACCINE Pfizer 03/27/2020 12:00:00 AM EST completed [place] Vaccine Series Complete: NOThis Data was Submitted to [facility] Via [employer]. Pneumococcal conjugate PCV 13 11/24/2019 09:57:00 AM EDT completed MEDENT ([facility]) This CVX code allows reporting of a vacc ination when formulation is unknown (for example, when recording a Influenza vaccination when noted on a vaccination card) 11/24/2019 09:56:00 AM EDT completed MEDEN T ([facility]) Medications Medication Brand Name Start Date Product Form Dose Route Admi nistrative Instructions Pharmacy Instructions Status Indications Reaction Description Data Source(s) Amoxicillin 875 MG Oral Tablet Amoxicillin 01/07/2021 12:00:00 AM EST active MEDENT ([facility]) Cephalexin 500 MG Oral Tablet Cephalexin 11/08/2020 12:00:00 AM EDT ORAL completed MEDENT ([facility]) onabotulinumtoxinA 100 UNT/ML Injectable Solution [Bot ox] Botox 100 UNIT Botox 100 UNIT 11/01/2020 12:00:00 AM EDT active Botox 100 UNIT eCW1 ([facility]) onabotulinumtoxinA 100 UNT/ML Injectable Solution [Bot ox] Botox 100 UNIT Botox 100 UNIT 11/01/2020 12:00:00 AM EDT active Botox 100 UNIT eCW1 ([facility]) onabotulinumtoxinA 100 UNT/ML Injectable Solution [Bot ox] Botox 100 UNIT Botox 100 UNIT 11/01/2020 12:00:00 AM EDT active Botox 100 UNIT eCW1 ([facility]) Ciprofloxacin 500 MG Oral Tablet Ciprofloxacin HCL 10/21/2020 12:00 :00 AM EDT ORAL completed MEDENT ([facility]) gabapentin 400 MG Oral Capsule Gabapentin 10/15/2020 12:00:00 AM EDT active Gabapentin MEDENT ([facility]) Xray Right Foot 08/31/2020 12:00:00 AM EDT co mpleted MEDENT ([facility]) onabotulinumtoxinA 100 UNT/ML Injectable Solution [Bot ox] Botox 100 UNIT Botox 100 UNIT 07/08/2020 12:00:00 AM EDT active Botox 100 UNIT eCW1 ([facility]) onabotulinumtoxinA 100 UNT/ML Injectable Solution [Bot ox] Botox 100 UNIT Botox 100 UNIT 07/08/2020 12:00:00 AM EDT active Botox 100 UNIT eCW1 ([facility]) onabotulinumtoxinA 100 UNT/ML Injectable Solution [Bot ox] Botox 100 UNIT Botox 100 UNIT 07/08/2020 12:00:00 AM EDT suspended Botox 100 UNIT eCW1 ([facility]) onabotulinumtoxinA 100 UNT/ML Injectable Solution [Bot ox] Botox 100 UNIT Botox 100 UNIT 07/08/2020 12:00:00 AM EDT active Botox 100 UNIT eCW1 ([facility]) onabotulinumtoxinA 100 UNT/ML Injectable Solution [Bot ox] Botox 100 UNIT Botox 100 UNIT 07/08/2020 12:00:00 AM EDT active Botox 100 UNIT eCW1 ([facility]) onabotulinumtoxinA 100 UNT/ML Injectable Solution [Bot ox] Botox 100 UNIT Botox 100 UNIT 07/08/2020 12:00:00 AM EDT active Botox 100 UNIT eCW1 ([facility]) onabotulinumtoxinA 100 UNT/ML Injectable Solution [Bot ox] Botox 100 UNIT Botox 100 UNIT 07/08/2020 12:00:00 AM EDT suspended Botox 100 UNIT eCW1 ([facility]) onabotulinumtoxinA 100 UNT/ML Injectable Solution [Bot ox] Botox 100 UNIT Botox 100 UNIT 07/08/2020 12:00:00 AM EDT active eCW1 ([facility]) onabotulinumtoxinA 100 UNT/ML Injectable Solution [Bot ox] Botox 100 UNIT Botox 100 UNIT 07/08/2020 12:00:00 AM EDT active Botox 100 UNIT eCW1 ([facility]) Lisinopril 20 MG Oral Tablet Lisinopril 07/02/2020 12:00:00 AM EDT ORAL active MEDENT ([facility]) Lisinopril 20 MG Oral Tablet lisinopril (PRINIVIL,ZEST RIL) 20 MG tablet lisinopril (PRINIVIL,ZESTRIL) 20 MG tablet 06/24/2020 12:00:00 AM EDT 20 mg Oral active Take 1 tablet (20 mg total) by mouth daily [facility] sodium chloride 0.9% (NS) infusion [id number] 06/22/2020 03:00:00 P M EDT Intravenous active at 100 mL/hr, Intravenous, Continuous, Starting on Sun06/22/20 at 1500, For 4 hours, Post-op [facility] Medication administered onsite normal saline flush 0.9 % injection 3 mL [id number] 06/22/2020 03:00:00 PM EDT 3 mL Intravenous active 3 mL , Intravenous, PROTOCOL, First dose on Sun06/22/20 at 1500, Pre-op
flush per protocol, D/C Main IV fluid if appropriate
[facility] Medication administered onsite Nitroglycerin 0.4 MG Sublingual Tablet n itroglycerin (NITROSTAT) SL tablet 0.4 mg nitroglycerin (NITROSTAT) SL tablet 0.4 mg 06/22/2020 02:18:36 P M EDT 0.4 mg Sublingual active 0.4 mg, S ublingual, Every 5 min PRN, chest pain, Starting on Sun06/22/20 at 1418, Post-op
May administer every 5 minutes for 3 doses and call cardio lab MD.
[facility] Medication administered onsite 10 ML Atropine Sulfate [...] or 0.04 mg/kg. Max of 6 doses
[facility] Medication administered onsite normal saline flush 0.9 % injection 3 mL [id number] 06/22/2020 02:00:00 PM EDT 3 mL Intravenous active 3 mL , Intravenous, Every 8 hours (scheduled), First dose on Sun06/22/20 at 1400, Pre-op
Rapid push positive pressure flushing shall be performed with a 10 cc normal saline syringe to check the PATENCY of a PIV site prior to any infusion therapy initiation unless resistance is met.
[facility] Medication administered onsite normal saline flush 0.9 % injection 3 mL [id number] 06/22/2020 02:00:00 PM EDT 3 mL Intravenous active 3 mL , Intravenous, Every 8 hours (scheduled), First dose on Sun06/22/20 at 1400, Pre-op
Rapid push positive pressure flushing shall be performed with a 10 cc normal saline syringe to check the PATENCY of a PIV site prior to any infusion therapy initiation unless resistance is met.
[facility] Medication administered onsite clopidogrel 75 MG Oral Tablet clopidogrel (PLAVIX) tab let clopidogrel (PLAVIX) tablet 06/22/2020 01:43:32 PM EDT active As needed, Starting on Sun06/22/20 at 1343, Intra-Procedure [facility] Medication administered onsite iopamidol (ISOVUE-370) 76 % [id number] 06/22/2020 01:39:07 PM EDT active As needed, Starting on Sun06/22/20 at 1339, Intra-Proce dure [facility] Medication administered onsite 1 ML heparin sodium, porcine 1000 UNT/ML Injection hep nataliya (porcine) injection heparin (porcine) injection 06/22/2020 01:24:36 PM EDT active As needed, Starting on Sun06/22/20 at 1324, Intra-Procedure [facility] Medication administered onsite lidocaine 1 % injection [id number] 06/22/2020 01:19:50 PM EDT active As needed, Starting on Sun 1 at 1319, Intra-Procedure [facility] Medication administered onsite fentaNYL Citrate (PF) (SUBLIMAZE) injection [id number] 06/22/2020 01:12:36 PM EDT active As neede d, Starting on Sun06/22/20 at 1312, Intra-Procedure [facility] Medication administered onsite 2 ML Midazolam 1 MG/ML Injection midazolam (VERSED) in jection midazolam (VERSED) injection 06/22/2020 01:12:17 PM EDT active As needed, Starting on Sun06/22/20 at 1312, Intra-Procedure [facility] Medication administered onsite Aspirin 325 MG Oral [...] home. Max of 1 dose per day.
[facility] Medication administered onsite sodium chloride 0.9% (NS) infusion [id number] 06/22/2020 01:00:00 PM EDT 100 mL/h Intravenous active at 100 m L/hr, 100 mL/hr, Intravenous, Continuous, Starting on Sun06/22/20 at 1300, Pre-op
Start two hours prior to scheduled start time
[facility] Medication administered onsite Diphenhydramine Hydrochloride 50 MG Oral Capsule diphenhydrAMINE (BENADRYL) capsule 50 mg diphenhydrAMINE (BENADRYL) capsule 50 mg 06/22/2020 01 :00:00 PM EDT 50 mg Oral completed 50 mg, Oral, call out clerk, On Sun06/22/20 at 1300, For 1 dose, Pre-op [facility] Medication administered onsite clopidogrel 75 MG Oral Tablet clopidogrel (PLAVIX) 75 MG tablet clopidogrel (PLAVIX) 75 MG tablet 06/22/2020 12:00:00 AM EDT 75 mg Oral active Take 1 tablet (75 mg total) by mouth daily [facility] 24 HR Isosorbide Mononitrate 30 MG Exten ded Release Oral Tablet isosorbide mononitrate (IMDUR) 30 MG 24 hr tablet isosorbide mononitrate (IMDUR) 30 MG 24 hr tablet 06/16/2020 12:00:00 AM EDT active TAKE ONE TABLET BY MOUTH EVERY DAY [facility] Lisinopril 20 MG Oral Tablet lisinopril (PRINIVIL,ZEST RIL) 20 MG tablet lisinopril (PRINIVIL,ZESTRIL) 20 MG tablet 06/15/2020 12:00:00 AM EDT 20 mg Oral aborted Take 1 tablet (20 mg total) by mouth daily [facility] prednisolone acetate 10 MG/ML Ophthalmic Suspension prednisoLONE acetate (PRED FORTE) 1 % ophthalmic suspension prednisoLONE acetate (PRED FORTE) 1 % ophthalmic suspension 05/28/2020 12:00:00 AM EDT 1 [drp] active Administer 1 drop to both eyes as needed [facility] Fluticasone Propionate Fluticasone Propionate 05/26/2020 12:00:00 AM E DT active MEDENT ([facility] Isosorbide Dinitrate 30 MG Oral Tablet Isosorbide Dinitrate 05/26/2020 12:00:00 AM EDT ORAL active MEDENT ([facility] Bisoprolol Fumarate 10 MG Oral Tablet Bisoprolol Fumarate 12:00:00 AM EDT ORAL active MEDENT ([facility] clopidogrel 75 MG Oral Tablet clopidogrel (PLAVIX) 75 MG tablet clopidogrel (PLAVIX) 75 MG tablet 05/19/2020 12:00:00 AM EDT 75 mg Oral aborted Take 1 tablet (75 mg total) by mouth daily [facility] atorvastatin 80 MG Oral Tablet atorvastatin (LIPITOR) 80 MG tablet atorvastatin (LIPITOR) 80 MG tablet 04/28/2020 12:00:00 AM EST 80 mg Oral active Take 1 tablet (80 mg total) by mouth daily [facility] Bisoprolol Fumarate 10 MG Oral Tablet bisoprolol (ZEBE TA) 10 MG tablet bisoprolol (ZEBETA) 10 MG tablet 04/28/2020 12:00:00 AM EST active TAKE ONE TABLET BY MOUTH EVERY DAY [facility] gabapentin 400 MG Oral Capsule Gabapentin 400 MG Oral Capsule Gabapentin 400 MG Oral Capsule 04/27/2020 12:00:00 AM EST 1 activ e gabapentin 400 MG Oral Capsule JERI (Pancho Larsen MD [facility]) 24 HR Isosorbide Mononitrate 30 MG Exten ded Release Oral Tablet Isosorbide Mononitrate ER 30 MG Oral Tablet Extended Release 24 Hour Isosorbide Mononitrate ER 30 MG Oral Tablet Extended Release 24 Hour 04/27/2020 12:00:00 AM EST 1 active 24 HR isosorbide mononitr ate 30 MG Extended Release Oral Tablet JERI (Pancho Larsen MD [facility]) Bisoprolol Fumarate 10 MG Oral Tablet Bisoprolol Fumarate 10 MG Oral Tablet 04/27/2020 12:00:00 AM EST 1 active bisoprolol fumarate 10 MG Oral Tablet JERI (Pancho Larsen MD [facility]) prednisolone acetate 10 MG/ML Ophthalmic Suspension prednisoLONE Acetate 1% Ophthalmic Suspension prednisoLONE Acetate 1% Ophthalmic Suspension 04/28/19 12:00:00 AM EST active prednisolone acetate 10 MG/ML Ophthalmic Suspension JERI (Pancho Larsen MD [facility]) Lisinopril 10 MG Oral Tablet Lisinopril 10 MG Oral Tablet 12:00:00 AM EST 1 active lisinopril 10 MG Oral Tablet JERI (Pancho Larsen MD [facility]) atorvastatin 80 MG Oral Tablet [Lipitor] Lipitor 80 MG Oral Tablet Lipitor 80 MG Oral Tablet 04/27/2020 12:00:00 AM EST 1 activ e atorvastatin 80 MG Oral Tablet [Lipitor] JERI (Pancho Larsen MD [facility]) Trazodone Hydrochloride 100 MG Oral Tablet traZODone H Cl 100 MG Oral Tablet traZODone HCl 100 MG Oral Tablet 04/27/2020 12:00:00 AM EST 1 active trazodone hydrochloride 100 MG Oral Tablet JERI (Vashti Larsen MD [facility]) gabapentin 600 MG Oral Tablet Gabapentin 600 MG Oral T ablet Gabapentin 600 MG Oral Tablet 04/27/2020 12:00:00 AM EST 1 active gabapentin 600 MG Oral Tablet JERI (Pancho Larsen MD [facility]) 75 mg 04/20/2020 12:00:00 AM EST tablet 30 TAKE ONE TABLET BY MOUTH EVERY DAY TAKE ONE TABLET BY MOUTH EVERY DAY SOLD: 04/20/2020 [facility] Covid-19 vaccine, Unspecified 04/17/2020 12:00:00 AM EST completed MEDENT ([facility]) Medication administered onsite Covid-19 vaccine, Unspecified 03/27/2020 12:00:00 AM EST completed MEDENT ([facility]) Medication administered onsite Lisinopril 10 MG Oral Tablet lisinopril (PRINIVIL,ZEST RIL) 10 MG tablet lisinopril (PRINIVIL,ZESTRIL) 10 MG tablet 03/11/2020 12:00:00 AM EST 10 mg Oral active Take 1 tablet (10 mg total) by mouth daily [facility] 120 ACTUAT Fluticasone propionate 0.23 M G/ACTUAT / salmeterol 0.021 MG/ACTUAT Metered Dose Inhaler [Advair] ADVAIR HFA 230-21 MCG/ACT inhaler ADVAIR HFA 230- 21 MCG/ACT inhaler 03/06/2020 12:00:00 AM EST 2 {puff} Inhalation active Inhale 2 puffs 2 (two) times a day [facility] NITROFURANTOIN, MACROCRYSTALS 25 MG / Ni [...] Gabapentin 02/16/2020 12:00:00 AM EST active MEDENT ([facility] gabapentin 400 MG Oral Capsule Gabapentin 01/30/2020 12:00:00 AM EST active MEDENT ([facility] ) Bisoprolol Fumarate 10 MG Oral Tablet bisoprolol (ZEBE TA) 10 MG tablet bisoprolol (ZEBETA) 10 MG tablet 01/29/2020 12:00:00 AM EST 10 mg Oral active Take 1 tablet (10 mg total) by m outh daily [facility] atorvastatin 80 MG Oral Tablet atorvastatin (LIPITOR) 80 MG tablet atorvastatin (LIPITOR) 80 MG tablet 01/29/2020 12:00:00 AM EST 80 mg Oral active Take 1 tablet (80 mg total) by mouth daily [facility] 24 HR Isosorbide Mononitrate 30 MG Exten ded Release Oral Tablet isosorbide mononitrate (IMDUR) 30 MG 24 hr tablet isosorbide mononitrate (IMDUR) 30 MG 24 hr tablet 01/24/2020 12:00:00 AM EST 30 mg Oral active Take 1 tablet (30 mg total) by mouth daily [facility] Bisoprolol Fumarate 5 MG Oral Tablet bisoprolol (ZEBET A) 5 MG tablet bisoprolol (ZEBETA) 5 MG tablet 01/24/2020 12:00:00 AM EST 5 mg Oral aborted Take 1 tablet (5 mg total) by mouth daily [facility] Lisinopril 5 MG Oral Tablet lisinopril (PRINIVIL,ZESTR IL) 5 MG tablet lisinopril (PRINIVIL,ZESTRIL) 5 MG tablet 01/23/2020 12:00:00 AM EST 5 mg O ral aborted Take 1 tablet (5 mg total) by mo [facility] daily [facility] clopidogrel 75 MG Oral Tablet clopidogrel (PLAVIX) 75 MG tablet clopidogrel (PLAVIX) 75 MG tablet 01/23/2020 12:00:00 AM EST 75 mg Oral completed Take 1 tablet (75 mg total) by mouth daily [facility] iopamidol (ISOVUE-370) 76 % 70 mL [id number] 01/22/2020 09:48:[address] 70 mL Intravenous completed 70 mL, Intrav enous, Once in imaging, contrast, Starting Nivia 01/22/20 at 2148, For 1 dose [facility] Medication administered onsite 24 HR Isosorbide Mononitrate 30 MG Exten ded Release Oral Tablet isosorbide mononitrate (IMDUR) 24 hr tablet 30 mg isosorbide mononitrate (IMDUR) 24 hr tablet 30 mg 01/22/2020 02:00:00 PM EST 30 mg Oral activ e 30 mg, Oral, Daily, First dose on Sun01/22/20 at 1400
Hold for SBP <100
[facility] Medication administered onsite Bisoprolol Fumarate 5 MG Oral Tablet bisoprolol (ZEBET A) tablet 5 mg bisoprolol (ZEBETA) tablet 5 mg 01/22/2020 02:00:00 PM EST 5 mg Oral active 5 mg, Oral, Daily, First dose on Sun01/22/20 at 1400 [facility] Medication administered onsite Aspirin 81 MG Delayed Release Oral Tablet aspirin EC t ablet 81 mg aspirin EC tablet 81 mg 01/22/2020 09:00:00 AM EST 81 mg Oral activ e 81 mg, Oral, Daily, First dose on Sun01/22/20 at 0900 [facility] Medication administered onsite gabapentin 800 MG Oral Tablet gabapentin (NEURONTIN) t ablet 400 mg gabapentin (NEURONTIN) tablet 400 mg 01/22/2020 09:00:00 AM EST 400 mg Oral active 400 mg, Oral, Daily, First dose on Sun01/22/20 at 0900 [facility] Medication administered onsite Famotidine (PEPCID) injection 20 mg [id number] 01/21/2020 11:00:0 0 PM EST 20 mg Intravenous completed 20 mg, I ntravenous, Once, Sun01/21/20 at 2300, For 1 dose
Refrigerated only product. Located in med refrigerator on unit. Dilute with sodium chloride 0.9% to equal 10 ml. Administration Rate = 20mg/2 minutes
[facility] Medication administered onsite Baclofen 10 MG Oral Tablet baclofen (LIORESAL) tablet 10 mg baclofen (LIORESAL) tablet 10 mg 01/21/2020 09:00:00 PM EST 10 mg Oral activ e 10 mg, Oral, 2 times daily, First dose on Sun01/21/20 at 2100 [facility] Medication administered onsite Cyclosporine 0.5 MG/ML Ophthalmic Suspen jag cycloSPORINE (RESTASIS) 0.05 % ophthalmic emulsion 1 drop cycloSPORINE (RESTASIS) 0.05 % ophthalmi c emulsion 1 drop 01/21/2020 09:00:00 PM EST 1 [drp] active 1 drop, Both Eyes, 2 times daily, First dose on Sun01/21/20 at 2099
For administration and preparation considerations, refer to Hazardous Drugs in the Workplace Policy on Intr[employer].
[facility] Medication administered onsite fluticasone (FLONASE) 50 MCG/ACT nasal spray 1 spray [id number] 01/21/2020 09:00:00 PM EST 1 {spray} active 1 spray, Each Nare, 2 times daily, First dose on Sun01/21/20 at 2099 [facility] Medication administered onsite lidocaine (ASPERCREME) 4 % 2 patch [id number] 01/21/2020 09:00:00 PM EST 2 {patch} Transdermal active 2 patch, [place] sdermal, Administer over 12 Hours, Every 24 hours (relative), First dose on Sun01/21/20 at 2099 [facility] Medication administered onsite Nortriptyline 25 MG Oral Capsule nortriptyline (PAMELO R) capsule 25 mg nortriptyline (PAMELOR) capsule 25 mg 01/21/2020 09:00:00 PM EST 25 m g Oral active 25 mg, Oral, Nightly, First dose on Sun01/21/20 at 2099 [facility] Medication administered onsite montelukast 10 MG Oral Tablet montelukast (SINGULAIR) tablet 10 mg montelukast (SINGULAIR) tablet 10 mg 01/21/2020 09:00:00 PM EST 10 mg Oral active 10 mg, Oral, Nightly, First dose on Sun01/21/20 at 2099 [facility] Medication administered onsite pantoprazole 40 MG Delayed Release Oral Tablet pantoprazole (PROTONIX) EC tablet 40 mg pantoprazole (PROTONIX) EC tablet 40 mg 01/21/2020 09:00:[address] 40 mg Oral active Gastroesophageal Reflux Diseas e 40 mg, Oral, 2 times daily, Indications: Gastroesophageal Reflux Disease, First dose on Sun01/21/20 at 2099 [facility] Gastroesophageal Reflux Disease Medication administered onsite Sucralfate [...] should NOT be administered via feeding tubes.
[facility] Medication administered onsite traZODone (DESYREL) tablet 150 mg 01/21/2020 09:00:00 PM EST 150 mg Oral active 150 mg, Oral, Nightly, First dose on Sun01/21/20 at 2100 [facility] Medication administered onsite topiramate 100 MG Oral Tablet topiramate (TOPAMAX) tab let 100 mg topiramate (TOPAMAX) tablet 100 mg 01/21/2020 09:00:00 PM EST 100 mg Oral active 100 mg, Oral, 2 times daily, First dose on Sun01/21/20 at 2100
For administration and preparation considerations, refer to Hazardous Drugs in the Workplace Policy on Intr[employer]et.
[facility] Medication administered onsite gabapentin 300 MG Oral Capsule gabapentin (NEURONTIN) capsule 600 mg gabapentin (NEURONTIN) capsule 600 mg 01/21/2020 09:00:00 PM EST 600 mg Oral active 600 mg, Oral, Nightly, First dose on Sun01/21/20 at 2100 [facility] Medication administered onsite carvedilol 25 MG Oral Tablet carvedilol (COREG) tablet 25 mg carvedilol (COREG) tablet 25 mg 01/21/2020 06:00:00 PM EST 25 mg Oral abort ed 25 mg, Oral, 2 times daily with meals, First dose on Sun01/21/20 at 1800 [facility] Medication administered onsite Sertraline 50 MG Oral Tablet sertraline (ZOLOFT) table t 50 mg sertraline (ZOLOFT) tablet 50 mg 01/21/2020 06:00:00 PM EST 50 mg Oral active 50 mg, Oral, Daily, First dose on Sun01/21/20 at 1800 [facility] Medication administered onsite Ipratropium Galt 0.2 MG/ML Inhalant S olution ipratropium (ATROVENT) 0.02 % nebulizer solution 0.5 mg ipratropium (ATROVENT) 0.02 % nebulizer solution 0.5 mg 01/21/2020 04:00:00 PM EST 0.5 mg active 0.5 mg, Nebulization, 4 times daily, First dose on Sun01/21/20 at 1600 [facility] Medication administered onsite atorvastatin 40 MG Oral Tablet atorvastatin (LIPITOR) tablet 40 mg atorvastatin (LIPITOR) tablet 40 mg 01/21/2020 02:00:00 PM EST 40 mg Oral active 40 mg, Oral, Daily, First dose on Sun01/21/20 at 1400 [facility] Medication administered onsite clopidogrel 75 MG Oral Tablet clopidogrel (PLAVIX) tab let 75 mg clopidogrel (PLAVIX) tablet 75 mg 01/21/2020 02:00:00 PM EST 75 mg Oral active 75 mg, Oral, Daily, First dose on Sun01/21/20 at 1400 [facility] Medication administered onsite 60 ACTUAT formoterol fumarate 0.005 MG/A CTUAT / mometasone furoate 0.2 MG/ACTUAT Metered Dose Inhaler mometasone-formoterol (DULERA) 200-5 MCG/ACT inhaler 2 puff mometasone-formoterol (DULERA) 200-5 MCG/ACT inhaler 2 puff 01/21/2020 02:00:00 PM EST 2 {puff} Inhalation active 2 puff, Inhalation, 2 times daily, First dose on Sun01/21/20 at 1400 [facility] Medication administered onsite Nitroglycerin 0.4 MG Sublingual Tablet n itroglycerin (NITROSTAT) SL tablet 0.4 mg nitroglycerin (NITROSTAT) SL tablet 0.4 mg 01/21/2020 01:13:58 P M EST 0.4 mg Sublingual active 0.4 mg, S ublingual, Every 5 min PRN, chest pain, Starting Sun01/21/20 at 1313, Post-op
May administer every 5 minutes for 3 doses and call cardio lab MD.
[facility] Medication administered onsite Acetaminophen 325 MG Oral Tablet acetaminophen (TYLENO L) 325 MG tablet 650 mg acetaminophen (TYLENOL) 325 MG tablet 650 mg 01/21/2020 01:13:58 PM EST 650 mg Oral active 650 mg, Or al, Every 4 hours PRN, headaches, and non cardiac pain, Starting Sun01/21/20 at 1313, Post-op
"Maximum dose of acetaminophen is 4,000 mg from all sources in 24 hours."
[facility] Medication administered onsite Acetaminophen 325 MG / Oxycodone Hydroch loride 5 MG Oral Tablet oxyCODONE- acetaminophen (PERCOCET) 5-325 MG 1 tablet oxyCODONE-acetaminophen (PERCOCET) 5- 325 MG 1 tablet 01/21/2020 12:58:31 PM EST 1 {tbl} Oral a ctive 1 tablet, Oral, Every 8 hours PRN, moderate pain (4-6), Starting Sun01/21/20 at 1258, For 7 days [facility] Medication administered onsite Albuterol 0.83 MG/ML Inhalant Solution a lbuterol (PROVENTIL) nebulizer solution 2.5 mg albuterol (PROVENTIL) nebulizer solution 2.5 mg 2019 12:57:10 PM EST 2.5 mg active 2.5 mg, Nebulization, RT every 4 hours as needed, shortness of breath, Starting Sun01/21/20 at 1257 [facility] Medication administered onsite sodium chloride 0.9% (NS) infusion 0772-8259-30 01/21/2020 10:00:00 AM EST 100 mL/h Intravenous active at 100 m L/hr, 100 mL/hr, Intravenous, Continuous, Starting Sun01/21/20 at 1000, Pre-op
Start two hours prior to scheduled start time
[facility] Medication administered onsite Aspirin 325 MG Oral [...] home. Max of 1 dose per day.
[facility] Medication administered onsite Diphenhydramine Hydrochloride 50 MG Oral Capsule diphenhydrAMINE (BENADRYL) capsule 50 mg diphenhydrAMINE (BENADRYL) capsule 50 mg 01/21/2020 10 :00:00 AM EST 50 mg Oral completed 50 mg, Oral, call out clerk, Sun01/21/20 at 1000, For 1 dose, Pre-op [facility] Medication administered onsite Trazodone Hydrochloride 100 MG Oral Tablet traZODone ( DESYREL) 100 MG tablet traZODone (DESYREL) 100 MG tablet 01/08/2020 12:00:00 AM EST 100 mg active 100 mg nightly [facility] clopidogrel 75 MG Oral Tablet clopidogrel (PLAVIX) 75 MG tablet clopidogrel (PLAVIX) 75 MG tablet 12/30/2019 12:00:00 AM EST 75 mg Oral aborted Take 1 tablet (75 mg total) by mouth daily [facility] 120 ACTUAT Fluticasone propionate 0.23 M G/ACTUAT / salmeterol 0.021 MG/ACTUAT Metered Dose Inhaler [Advair] ADVAIR HFA 230-21 MCG/ACT inhaler ADVAIR HFA 230- 21 MCG/ACT inhaler 12/09/2019 12:00:00 AM EDT 1 {inhaler} Oral aborted Take 1 Inhaler by mouth 2 (two) times a day [facility] gabapentin 600 MG Oral Tablet gabapentin (NEURONTIN) 6 00 MG tablet gabapentin (NEURONTIN) 600 MG tablet 11/11/2019 12:00:00 AM EDT aborted [facility] montelukast 10 MG Oral Tablet MONTELUKAST SODIUM [...] 2 (two) times a day with meals [facility] atorvastatin 40 MG Oral Tablet [Lipitor] Lipitor 40 MG Oral Tablet Lipitor 40 MG Oral Tablet 04/25/2019 12:00:00 AM EST 1 abort ed atorvastatin 40 MG Oral Tablet [Lipitor] JERI (Pancho Larsen MD [facility]) carvedilol 25 MG Oral Tablet Carvedilol 25 MG Oral Tab let Carvedilol 25 MG Oral Tablet 04/25/2019 12:00:00 AM EST 1 aborted carvedilol 25 MG Oral Tablet JERI (Pancho Larsen MD [facility]) fluticasone (FLONASE) 50 MCG/ACT nasal spray [id number] 02/22/2019 12:00:00 AM EST aborted [facility] Lisinopril 2.5 MG Oral Tablet Lisinopril 2.5MG Oral Ta blet Lisinopril 2.5MG Oral Tablet 04/16/2018 12:00:00 AM EST 1 aborted lisinopril 2.5 MG Oral Tablet JERI (Pancho Larsen MD [facility]) loteprednol etabonate 0.005 MG/MG Ophtha lmic Ointment [Lotemax] Lotemax 0.5% Ophthalmic Ointment Lotemax 0.5% Ophthalmic Ointment 02/08/2018 12:00:00 AM EST aborted loteprednol etab karlie 0.005 MG/MG Ophthalmic Ointment [Lotemax] JERI (Pancho Larsen MD [facility]) Lisinopril 2.5 MG Oral Tablet lisinopril (PRINIVIL,ZES TRIL) 2.5 MG tablet lisinopril (PRINIVIL,ZESTRIL) 2.5 MG tablet 05/17/2016 12:00:00 AM EDT 2.5 mg Oral aborted Take 2.5 mg by mouth daily [facility] atorvastatin 40 MG Oral Tablet atorvastatin (LIPITOR) 40 MG tablet atorvastatin (LIPITOR) 40 MG tablet 03/17/2016 12:00:00 AM EST aborted LIPITOR 40 MG TABS [facility] Melatonin 10 MG Oral Tablet Melatonin 10 MG TABS Melatonin 1 0 MG TABS 03/17/2016 12:00:00 AM EST 10 mg Oral aborted Take 1 0 mg by mouth daily [facility] alcaftadine 2.5 MG/ML Ophthalmic Solutio n [Lastacaft] Lastacaft 0.25% Ophthalmic Solution Lastacaft 0.25% Ophthalmic Solution 01/20/2016 12:00:00 AM EST 1 aborted alcaftadine 2.5 MG/ML Oph thalmic Solution [Lastacaft] JERI (Pancho Larsen MD [facility]) gabapentin 400 MG Oral Capsule Gabapentin 400 MG Capsu le Gabapentin 400 MG Capsule 11/03/2014 12:00:00 AM EDT 1 aborted gabapentin 400 MG Oral Capsule JERI (Pancho Larsen MD [facility]) Trazodone Hydrochloride 50 MG Oral Tablet traZODone HC l 50 MG OR TABS traZODone HCl 50 MG OR TABS 01/12/2014 12:00:00 AM EST 3 aborted trazodone hydrochloride 50 MG Oral Tablet JERI (Pancho Larsen MD [facility]) tramadol hydrochloride 50 MG Oral Tablet tramadol 50 mg tablet Take 3 tablets every day by oral route at bedtime. tramadol 50 mg tablet Take 3 tablets coral ry day by oral route at bedtime. 3 complete d tramadol hydrochloride [address] ([facility]) Lisinopril 2.5 MG Oral Tablet lisinopril 2.5 mg tablet lisin opril 2.5 mg tablet completed lisinopril 2.[address] ([facility]) Bisoprolol Fumarate 5 MG Oral Tablet bis oprolol fumarate 5 mg tablet Take 1 tablet every day by oral route. bisoprolol fumarate 5 mg tablet Take 1 t ablet every day by oral route. 1 completed bisoprolol fumarate [address] ([facility]) Diclofenac Sodium 0.01 MG/MG Topical Gel Diclofenac So dium 1 % GEL Diclofenac Sodium 1 % GEL aborted diclofena c 1 % topical gel [facility] Ibuprofen 600 MG Oral Tablet ibuprofen 6 00 mg tablet Take 1 tablet twice a day by oral route for 10 days. ibuprofen 600 mg tablet Take 1 tablet tw ice a day by oral route for 10 days. 1 completed ibuprofen [address] ([facility]) Acetaminophen 325 MG / Hydrocodone Miranda trate 5 MG Oral Tablet hydrocodone 5 mg- acetaminophen 325 mg tablet hydrocodone 5 mg-acetaminophen 325 mg tablet completed acetaminophen 325 MG / hydrocodone bitartrate [address] ([facility]) atorvastatin 40 MG Oral Tablet atorvastatin 40 mg tabl et atorvastatin 40 mg tablet completed atorvastatin [address] ([facility]) Ondansetron 4 MG Oral Tablet ondansetron HCl 4 mg tabl et ondansetron HCl 4 mg tablet completed ondansetron 4 M G Oral Tablet COURT ([facility]) Oxycodone Hydrochloride 5 MG Oral Tablet oxycodone 5 m g tablet oxycodone 5 mg tablet completed oxycodone hydro chloride [address] ([facility]) Oxycodone Hydrochloride 5 MG Oral Tablet oxyCODONE (ROXICODONE) 5 MG immediate release tablet oxyCODONE (ROXICODONE) 5 MG immediate release tablet aborted oxycodone 5 mg tablet [facility] atorvastatin 40 MG Oral Tablet atorvastatin 40 mg tabl et atorvastatin 40 mg tablet completed atorvastatin [address] ([facility]) Trazodone Hydrochloride 50 MG Oral Tablet trazodone 50 mg tablet trazodone 50 mg tablet completed trazodone hydr ochloride [address] ([facility]) Lisinopril 5 MG Oral Tablet lisinopril 5 mg tablet lisinopril 5 mg ta blet completed lisinopril [address] ([facility]) Lisinopril 5 MG Oral Tablet lisinopril 5 mg tablet lisinopril 5 mg ta blet completed lisinopril [address] ([facility]) Lisinopril 2.5 MG Oral Tablet lisinopril 2.5 mg tablet lisin opril 2.5 mg tablet completed lisinopril 2.[address] ([facility]) fluticasone propionate 50 mcg/actuation nasal spray,suspension [id number] completed fluticasone propionate 0.05 MG/ACTUAT Metered Dose Nasal [place] COURT ([facility]) Oxycodone Hydrochloride 5 MG Oral Tablet oxycodone 5 m g tablet oxycodone 5 mg tablet completed oxycodone hydro chloride [address] ([facility]) Lisinopril 10 MG Oral Tablet lisinopril 10 mg tablet lisinopril 10 mg tablet completed lisinopril [address] ([facility]) Nystatin [id number] UNT/ML Topical Cream nystatin 100,000 unit/gram topical cream nystatin 100,000 unit/gram topical cream completed nystatin 478317 UNT/ML Topical Cream COURT ([facility]) Trazodone Hydrochloride 150 MG Oral Tablet traZODone ( DESYREL) 150 MG tablet traZODone (DESYREL) 150 MG tablet 150 mg Oral abor benitez Take 150 mg by mouth nightly [facility] atorvastatin 40 MG Oral Tablet atorvastatin 40 mg tabl et atorvastatin 40 mg tablet completed atorvastatin [address] ([facility]) Acetaminophen 325 MG / Hydrocodone Miranda trate 5 MG Oral Tablet hydrocodone 5 mg- acetaminophen 325 mg tablet hydrocodone 5 mg-acetaminophen 325 mg tablet completed acetaminophen 325 MG / hydrocodone bitartrate [address] ([facility]) Ondansetron 4 MG Oral Tablet ondansetron HCl 4 mg tabl et ondansetron HCl 4 mg tablet completed ondansetron 4 M G Oral Tablet COURT ([facility]) Trazodone Hydrochloride 50 MG Oral Tablet trazodone 50 mg tablet trazodone 50 mg tablet completed trazodone hydr ochloride [address] ([facility]) NITROFURANTOIN, MACROCRYSTALS 25 MG / Ni trofurantoin, Monohydrate 75 MG Oral Capsule nitrofurantoin monohydrate/macrocrystals 100 mg capsule nitrofurantoin monohydrate/macrocrystals 100 mg capsule completed nitrofurantoin, macrocrystals 25 MG / nitrofurantoin, monohydrate [address] ([facility]) Ondansetron 4 MG Oral Tablet ondansetron HCl 4 mg tabl et ondansetron HCl 4 mg tablet completed ondansetron 4 M G Oral Tablet COURT ([facility]) 24 HR Isosorbide Mononitrate 30 MG Exten ded Release Oral Tablet isosorbide mononitrate (IMDUR) 30 MG 24 hr tablet isosorbide mononitrate (IMDUR) 30 MG 24 hr tablet aborted isosor bide mononitrate ER 30 mg tablet,extended release 24 hr TAKE ONE TABLET BY MOUTH EVERY DAY [facility] Isosorbide Dinitrate 30 MG Oral Tablet i sosorbide dinitrate 30 mg tablet Take 1 tablet twice a day by oral route. isosorbide dinitrate 30 mg tablet Take 1 tablet twice a day by oral route. 1 comp leted isosorbide dinitrate [address] ([facility]) Cephalexin 500 MG Oral Capsule cephalexin 500 mg capsu le cephalexin 500 mg capsule completed cephalexin [address] ([facility]) Bisoprolol Fumarate 5 MG Oral Tablet bis oprolol fumarate 5 mg tablet Take 1 tablet every day by oral route. bisoprolol fumarate 5 mg tablet Take 1 t ablet every day by oral route. 1 completed bisoprolol fumarate [address] ([facility]) NITROFURANTOIN, MACROCRYSTALS 25 MG / Ni trofurantoin, Monohydrate 75 MG Oral Capsule nitrofurantoin monohydrate/macrocrystals 100 mg capsule nitrofurantoin monohydrate/macrocrystals 100 mg capsule completed nitrofurantoin, macrocrystals 25 MG / nitrofurantoin, monohydrate [address] ([facility]) tramadol hydrochloride 50 MG Oral Tablet tramadol 50 mg tablet Take 3 tablets every day by oral route at bedtime. tramadol 50 mg tablet Take 3 tablets coral ry day by oral route at bedtime. 3 complete d tramadol hydrochloride [address] ([facility]) Oxycodone Hydrochloride 5 MG Oral Tablet oxycodone 5 m g tablet oxycodone 5 mg tablet completed oxycodone hydro chloride [address] ([facility]) Nystatin 459453 UNT/ML Topical Cream nystatin 100,000 unit/gram topical cream nystatin 100,000 unit/gram topical cream completed nystatin 035818 UNT/ML Topical Cream COURT ([facility]) Lisinopril 5 MG Oral Tablet lisinopril 5 mg tablet lisinopril 5 mg ta blet completed lisinopril [address] ([facility]) Oxycodone Hydrochloride 5 MG Oral Tablet oxycodone 5 m g tablet oxycodone 5 mg tablet completed oxycodone hydro chloride [address] ([facility]) Ondansetron 4 MG Oral Tablet ondansetron HCl 4 mg tabl et ondansetron HCl 4 mg tablet completed ondansetron 4 M G Oral Tablet COURT ([facility]) Nystatin [id number] UNT/ML Topical Cream nystatin 100,000 unit/gram topical cream nystatin 100,000 unit/gram topical cream completed nystatin 755907 UNT/ML Topical Cream COURT ([facility]) Lisinopril 10 MG Oral Tablet lisinopril 10 mg tablet lisinopril 10 mg tablet completed lisinopril [address] ([facility]) Trazodone Hydrochloride 50 MG Oral Tablet trazodone 50 mg tablet trazodone 50 mg tablet completed trazodone hydr ochloride [address] ([facility]) Clonazepam 0.5 MG Oral Tablet clonazepam 0.5 mg tablet clona zepam 0.5 mg tablet completed clonazepam 0.[address] ([facility]) tramadol hydrochloride 50 MG Oral Tablet tramadol 50 mg tablet Take 3 tablets every day by oral route at bedtime. tramadol 50 mg tablet Take 3 tablets coral ry day by oral route at bedtime. 3 complete d tramadol hydrochloride [address] ([facility]) atorvastatin 40 MG Oral Tablet atorvastatin 40 mg tabl et atorvastatin 40 mg tablet completed atorvastatin [address] ([facility]) Trazodone Hydrochloride 50 MG Oral Tablet trazodone 50 mg tablet trazodone 50 mg tablet completed trazodone hydr ochloride [address] ([facility]) Clonazepam 0.5 MG Oral Tablet clonazepam 0.5 mg tablet clona zepam 0.5 mg tablet completed clonazepam 0.[address] ([facility]) NITROFURANTOIN, MACROCRYSTALS 25 MG / Ni trofurantoin, Monohydrate 75 MG Oral Capsule nitrofurantoin monohydrate/macrocrystals 100 mg capsule nitrofurantoin monohydrate/macrocrystals 100 mg capsule completed nitrofurantoin, macrocrystals 25 MG / nitrofurantoin, monohydrate [address] ([facility]) CALCIUM CARBONATE-VITAMIN D PO 1 {tbl} Oral aborted Take 1 tablet by mouth 2 (two) times a day [facility] Oxycodone Hydrochloride 5 MG Oral Tablet oxycodone 5 m g tablet oxycodone 5 mg tablet completed oxycodone hydro chloride [address] ([facility]) tramadol hydrochloride 50 MG Oral Tablet tramadol 50 mg tablet Take 3 tablets every day by oral route at bedtime. tramadol 50 mg tablet Take 3 tablets coral ry day by oral route at bedtime. 3 complete d tramadol hydrochloride [address] ([facility]) carvedilol 25 MG Oral Tablet carvedilol 25 mg tablet carvedilol 25 mg tablet completed carvedilol [address] ([facility]) Ibuprofen 600 MG Oral Tablet ibuprofen 6 00 mg tablet Take 1 tablet twice a day by oral route for 10 days. ibuprofen 600 mg tablet Take 1 tablet tw ice a day by oral route for 10 days. 1 completed ibuprofen [address] ([facility]) Isosorbide Dinitrate 30 MG Oral Tablet i sosorbide dinitrate 30 mg tablet Take 1 tablet twice a day by oral route. isosorbide dinitrate 30 mg tablet Take 1 tablet twice a day by oral route. 1 comp leted isosorbide dinitrate [address] ([facility]) Isosorbide Dinitrate 30 MG Oral Tablet i sosorbide dinitrate 30 mg tablet Take 1 tablet twice a day by oral route. isosorbide dinitrate 30 mg tablet Take 1 tablet twice a day by oral route. 1 comp leted isosorbide dinitrate [address] ([facility]) Acetaminophen 325 MG / Hydrocodone Miranda trate 5 MG Oral Tablet hydrocodone 5 mg- acetaminophen 325 mg tablet hydrocodone 5 mg-acetaminophen 325 mg tablet completed acetaminophen 325 MG / hydrocodone bitartrate [address] ([facility]) Lisinopril 2.5 MG Oral Tablet lisinopril 2.5 mg tablet lisin opril 2.5 mg tablet completed lisinopril 2.[address] ([facility]) Doxycycline Monohydrate 100 MG Oral Caps ule doxycycline monohydrate 100 mg capsule doxycycline monohydrate 100 mg capsule completed doxycycline monohydrate [address] ([facility]) Ibuprofen 600 MG Oral Tablet ibuprofen 6 00 mg tablet Take 1 tablet twice a day by oral route for 10 days. ibuprofen 600 mg tablet Take 1 tablet tw ice a day by oral route for 10 days. 1 completed ibuprofen [address] ([facility]) Clonazepam 0.5 MG Oral Tablet clonazepam 0.5 mg tablet clona zepam 0.5 mg tablet completed clonazepam 0.[address] ([facility]) Nystatin [id number] UNT/ML Topical Cream nystatin 100,000 unit/gram topical cream nystatin 100,000 unit/gram topical cream completed nystatin 486406 UNT/ML Topical Cream COURT ([facility]) Bisoprolol Fumarate 5 MG Oral Tablet bis oprolol fumarate 5 mg tablet Take 1 tablet every day by oral route. bisoprolol fumarate 5 mg tablet Take 1 t ablet every day by oral route. 1 completed bisoprolol fumarate [address] ([facility]) Isosorbide Dinitrate 30 MG Oral Tablet i sosorbide dinitrate 30 mg tablet Take 1 tablet twice a day by oral route. isosorbide dinitrate 30 mg tablet Take 1 tablet twice a day by oral route. 1 comp leted isosorbide dinitrate [address] ([facility]) fluticasone propionate 50 mcg/actuation nasal spray,suspension [id number] completed fluticasone propionate 0.05 MG/ACTUAT Metered Dose Nasal [place] COURT ([facility]) Acetaminophen 325 MG / Hydrocodone Miranda trate 5 MG Oral Tablet hydrocodone 5 mg- acetaminophen 325 mg tablet hydrocodone 5 mg-acetaminophen 325 mg tablet completed acetaminophen 325 MG / hydrocodone bitartrate [address] ([facility]) Cephalexin 500 MG Oral Capsule cephalexin 500 mg capsu le cephalexin 500 mg capsule completed cephalexin [address] ([facility]) Lisinopril 10 MG Oral Tablet lisinopril 10 mg tablet lisinopril 10 mg tablet completed lisinopril [address] ([facility]) carvedilol 25 MG Oral Tablet carvedilol 25 mg tablet carvedilol 25 mg tablet completed carvedilol [address] ([facility]) carvedilol 25 MG Oral Tablet carvedilol 25 mg tablet carvedilol 25 mg tablet completed carvedilol [address] ([facility]) 120 ACTUAT Fluticasone propionate 0.115 MG/ACTUAT / salmeterol 0.021 MG/ACTUAT Metered Dose Inhaler fluticasone-salmeterol (ADVAIR HFA) 115-21 MCG/ACT inhaler fluticasone-salmeterol (ADVAIR HFA) 115-21 MCG/ACT inhaler 2 {puff} Oral aborted Take 2 puffs by mouth daily [facility] Lisinopril 2.5 MG Oral Tablet lisinopril 2.5 mg tablet lisin opril 2.5 mg tablet completed lisinopril 2.[address] ([facility]) Bisoprolol Fumarate 5 MG Oral Tablet bis oprolol fumarate 5 mg tablet Take 1 tablet every day by oral route. bisoprolol fumarate 5 mg tablet Take 1 t ablet every day by oral route. 1 completed bisoprolol fumarate [address] ([facility]) Ondansetron 4 MG Oral Tablet ondansetron HCl 4 mg tabl et ondansetron HCl 4 mg tablet completed ondansetron 4 M G Oral Tablet COURT ([facility]) Isosorbide Dinitrate 30 MG Oral Tablet i sosorbide dinitrate 30 mg tablet Take 1 tablet twice a day by oral route. isosorbide dinitrate 30 mg tablet Take 1 tablet twice a day by oral route. 1 comp leted isosorbide dinitrate [address] ([facility]) Trazodone Hydrochloride 50 MG Oral Tablet trazodone 50 mg tablet trazodone 50 mg tablet completed trazodone hydr ochloride [address] ([facility]) Doxycycline Monohydrate 100 MG Oral Caps ule doxycycline monohydrate 100 mg capsule doxycycline monohydrate 100 mg capsule completed doxycycline monohydrate 100 MG Oral Capsule CUORT ([facility]) Insurance Providers Payer name Policy type / Coverage type Policy ID Covered libertarian ID Covered libertarian's relationship to hogan Policy [employer] Plan Information BS [place] [employer] [place] [id number] Family Dependent [id number] [place] [employer] [place] [id number] Family Dependent [id number] BS [place] [facility] Part B [id number] Family Dependent [id number] [place] [facility] Part B [id number] Family Dependent [id number] BS [place] [facility] Part B [id number] Family Dependent [id number] BS [place] [facility] Part B [id number] Family Dependent [id number] BS [place] [facility] Part B [id number] Family Dependent [id number] BS [place] [employer] Part [employer] [id number] Family Dependent [id number] BS [place] [employer] [id number] Family Dependent [id number] BS [place] Medigap Part B [id number] 2.0.1.069112.3.227.99.991.508486.0 Family Dependent [id number] BS [place] Medigap Part B [id number].[id number] Family Dependent [id number] BS [place] Medigap Part B [id number] 2.0.1.609225.3.227.99.991.599836.0 Family Dependent [id number] BS [place] Medigap Part B [id number] 2.0.1.609324.3.227.99.991.070744.0 Family Dependent [id number] BS [place] Medigap Part B [id number] 2.0.1.523328.3.227.99.991.095574.0 Family Dependent [id number] BS [place] Medigap Part B [id number] 2.0.1.579413.3.227.99.991.151553.0 Family Dependent [id number] RMSCO MEDICAL CLAIMS [id number] HU2 [id number] RMSCO PPO 2 [id number] 2 [id number] Lifetime Benefit Solut Medigap Part B 53036 Family Depen dent Rmsco/Lifetime Nacho Solut Medigap Part B 67272 Family Dep endent Lifetime Benefit Solut Medigap Part B 63295 Family Depen dent Rmsco/Lifetime Nacho Solut Medigap Part B 60622 Family Dep endent BS [place] Medigap Part B [id number] 2.16840.1.007416.3.227.99.991.141794.0 Self [id number] BS [place] Medigap Part B 058423 Self BS [place] Commercial 302/802 660372 Self 302/802 BS Filiberto Trad/MX Medigap Part B [id number] 2.160.1.225302.3.227.99.4595.69615.0 Self [id number] [facility] [id number] 0 [id number] BS [place] Medigap Part B [id number] 2.0.1.234653.3.227.99.991.382211.0 Self [id number] [facility] [id number] 2.0.1.04735 3.3.227.99.8646.4431.0 Self [id number] BS [place] Commercial [id number] 2.0.1.676208.3.227.99.991.310295.0 Self [id number] BS [place] Trad/MX Commercial 802 [id number] Self 802 Excellus [facility] Health Maintenance Organization (HMO) [id number] 2.16840.1.566574.3.227.99.8646.4431.0 Self U [id number] [facility] HMO/PPO/POS/EPO/OTHER [id number] 0 [id number] Blue Ppo Commercial [id number] Self EXCELLUS H [id number] Self [id number] EBS-RMSCO [id number] 1 [id number] EBSRMSCO LIFETIME BENEFIT SOLU [id number] Spo [id number] RMSCO [id number] 1 [id number] EBS-RMSCO [id number] 1 [id number] EXCELLUS BCBS [id number] Nichole UFU [id number] Lifetime Benefit Solution Medigap Part B [id number] 2..1.980927.3.227.99.991.711567.0 Family Dependent [id number] Lifetime Benefit Solution Medigap Part B 330380 Family De pendent BS [place] Trad/MX Medigap Part B [id number] 2..1.103226.3.227.99.4595.45608.0 Family Dependent [id number] BS [place] Trad/MX Medigap Part B [id number] 2..1.938952.3.227.99.4595.97481.0 Family Dependent [id number] BS Fil[place]erto Trad/MX Commercial 802 61666 Self 802 BS [place] Trad/MX Commercial [id number] 2..1.693495.3.227.99.4595.33089.0 Self [id number] BS [place] Trad/MX Medigap Part B [id number] 2..1.470671.3.227.99.4595.53162.0 Self [id number] BCBS [place] PPO 302/307 [id number] SP [id number] BS [place] Trad/MX Medigap Part B [id number] 2..1.571684.3.227.99.4595.02773.0 Self [id number] BS [place] Trad/MX Medigap Part B [id number] 2..1.159645.3.227.99.4595.77189.0 Self [id number] BS [place] Trad/MX Commercial 84522 Self BS Filiberto Trad/MX Medigap Part B [id number] 2..1.686489.3.227.99.4595.55943.0 Self [id number] BS [place] Trad/MX Commercial [id number] 2...120838.3.227.99.4595.58078.0 Self [id number] BCBS OF [place] 306/806 [id number] SP [id number] MEDICARE [id number] xxxxxxxxxxx [id number] MEDICARE A [id number] Self [id number] A MEDICARE A [id number] Self [id number] Y51 MEDICARE [id number] Nichole [id number] Y51 BS [place] Medigap Part B [id number] 2...691901.3.227.99.991.824238.0 Family Dependent [id number] BS [place] Medigap Part B [id number] 2...581877.3.227.99.991.926017.0 Family Dependent [id number] BS [place] Medigap Part B [id number] MRN.[id number] Family Dependent [id number] BS [place] Medigap Part B [id number] ...887744.3.227.99.991.765272.0 Family Dependent [id number] BS [place] Medigap Part B 302/802 644342 Family Dependent 302/802 BS [place] Medigap Part B [id number] 2..1.035490.3.227.99.991.337353.0 Family Dependent [id number] BS [place] Medigap Part B [id number] 2..1.380471.3.227.99.991.159907.0 Family Dependent [id number] BS [place] Medigap Part B [id number] MRN.[id number] Family Dependent [id number] BS [place] Medigap Part B [id number] 2.0.1.343659.3.227.99.991.040423.0 Family Dependent [id number] BS [place] Medigap Part B [id number] 2.0.1.408550.3.227.99.991.189290.0 Family Dependent [id number] BS [place] Medigap Part B [id number] 2.0.1.641476.3.227.99.991.423882.0 Family Dependent [id number] BS [place] Medigap Part B [id number] MRN.[id number] Family Dependent [id number] BS [place] Medigap Part B [id number] 2.0.1.103728.3.227.99.991.436675.0 Family Dependent [id number] BS [place] Medigap Part B [id number] 2..1.672086.3.227.99.991.666274.0 Family Dependent [id number] BS [place] Medigap Part B [id number] 2.0.1.170520.3.227.99.991.362468.0 Family Dependent [id number] BS [place] Medigap Part B [id number] MRN.[id number] Family Dependent [id number] BS [place] Medigap Part B [id number] 2.0.1.056130.3.227.99.991.360234.0 Family Dependent [id number] BS [place] Medigap Part B [id number] 2.0.1.187386.3.227.99.991.701460.0 Family Dependent [id number] BS [place] Medigap Part B [id number] 2.0.1.844878.3.227.99.991.587666.0 Family Dependent [id number] BS [place] Medigap Part B [id number] 2..1.262042.3.227.99.991.435435.0 Family Dependent [id number] BS [place] Medig[place] Part B [id number] 2..1.218104.3.227.99.991.369384.0 Family Dependent [id number] EXCELLUS BCBS [id number] xxxxxxxxxxxx [phone] [id number] EXCELLUS BCBS [id number] Spo VYW [id number] EXCELLUS BCBS [id number] Spo VYW [id number] MEDICARE [id number] Nichole [id number] A Medicare Natl Govt Servic Medicare Primary [id number] 2.0.1.780695.3.227.99.4595.19699.0 Self [id number] Medicare Natl Govt Servic Medicare Primary [id number] 2.0.1.438901.3.227.99.4595.02771.0 Self [id number] Medicare Natl Govt Servic Medicare Primary [id number] 2.0.1.623887.3.227.99.4595.34076.0 Self [id number] Medicare [facility]l [facility] Primary [id number] 2.16.840.1.455916.3.227.99.4595.53085.0 Self [id number] Medicare Natl Govt Servic Medicare Primary [id number] 2..840.1.505051.3.227.99.4595.32798.0 Self [id number] Medicare [facility] Govt Servic Medicare Primary [id number] 2.840.1.786425.3.227.99.4595.61553.0 Self [id number] BS [place] Medigap Part B [id number] 2.840.1.643235.3.227.99.991.297663.0 Family Dependent [id number] BS [place] Medigap Part B [id number] 2.0.1.272456.3.227.99.991.946327.0 Family Dependent [id number] EXCELLUS C [id number] Spouse [id number] BS [place] Medigap Part B [id number] 2.840.1.343781.3.227.99.991.269786.0 Family Dependent [id number] [place] Primary [id number] MRN.[id number] Self [id number] [place] Medicare Primary [id number] MRN.[id number] Self [id number] [place] Medicare Primary [id number] 2.840.1.129591.3.227.99.991.671725.0 Self [id number] [place] Medicare Primary [id number] MRN.[id number] Self [id number] [place] Medicare Primary [id number] 2.16.840.1.353113.3.227.99.991.240930.0 Self [id number] [place] Medicare Primary [id number] 2.16.840.1.457394.3.227.99.991.696031.0 Self [id number] [place] Medicare Primary [id number] MRN.[id number] Self [id number] Medicare [place] Medicare Primary [id number] 2.16.840.1.029266.3.227.99.991.875088.0 Self [id number] [place] Medicare Primary [id number] 2.16.840.1.986459.3.227.99.991.647645.0 Self [id number] [place] Medicare Primary [id number] 2.16.840.1.779810.3.227.99.991.892661.0 Self [id number] [place] Medicare Primary [id number] 2.16.840.1.509585.3.227.99.991.339541.0 Self [id number] MEDICARE [id number] SP [id number] Y51 EXCELLUS BC-BS PPO 306 [id number] SP [id number] BCBS of [place] Other 0 [id number] Family D ependent [place] 0 Medicare Part B of [place] Other 0 [id number] 1 Self 0 EXCELLUS CNY [facility] [id number] 01 [id number] MEDICARE PART A [facility] [id number] 18 [id number] MEDICARE [id number] S [id number] Y51 EXCELLUS BCBS B [id number] S VYW [id number] MEDICARE [id number] SP [id number] Y51 BCBS [place] PPO 302/307 [id number] HU2 [id number] BCBS of [facility] Other 0 [id number] Family D ependent Eric [place] 0 Medicare Part B of [facility] Other 0 [id number] Self 0 EXCELLUS CN[place] BS UNAVAILABLE 01 UNAVAILABLE BCBS 2.0.1.254566.3.441 [id number] Blue Cross/Bl ue Shield 2.0.1.056108.3.441 Lifetime Benefit Solutions 2.840.1.272698.3.441 105 [id number] Commercial Insurance Co. 2.0.1.806732.3.441 [employer] 2.0.1.682669.3.441 [id number] Commercial Insurance Co. 2.0.1.260875.3.441 BCBS 2.840.1.085971.3.441 [id number] Blue Cross/Bl ue Shield 2.840.1.125330.3.441 BCBS 2.840.1.141485.3.441 [id number] Blue Cross/Bl ue Shield 2.0.1.488716.3.441 Medicare 2.840.1.758384.3.441 [id number] Medicare Part B 2.0.1.896955.3.441 BC/BS Of Lizzeth Jannie [facility] Part B [id number] MRN.[id number] Self [id number] Medicare Part B Medicare Primary [id number] MRN.[id number] Self [id number] BC/BS Of [place] [facility] Part B [id number] MRN.[id number] Family Dependent [id number] Lifetime Benefit (Rms[employer]) Commercial [id number] 2.16.840.1.580133.3.227.99.4595.53279.0 Family Dependent [id number] BCBS OF [place] 306/806 [id number] [id number] BC/BS Of [place] [facility] Part B [id number] 2.16.840.1.291576.3.227.99.1037.92270.0 Self [id number] Medicare Part B Medicare Primary [id number] 2.16.840.1.169914.3.227.99.1037.41532.0 Self [id number] [facility] [facility] [id number] 2.16.840.1.573401.3.227.99.1037.23693.0 Self [id number] Medicare Part B Medicare Primary [id number] 2.16.840.1.540925.3.227.99.1037.13231.0 Self [id number] BLUE CROSS BLUE SHIELD -O/P [id number] 01 [id number] MEDICARE PART A -O/P [id number] 18 [id number] BC/BS [facility] [place] [facility] Part B [id number] 2.16.840.1.880705.3.227.99.1037.24567.0 Self [id number] Medicare Part B Medicare Primary [id number] 2.16.840.1.942225.3.227.99.1037.58141.0 Self [id number] MEDICARE C [id number] S [id number] A MEDICARE PART A -O/P [id number] 18 [id number] MEDICARE PART A [facility] [id number] 18 [id number] MEDICARE [id number] BC/BS [facility] [place] [facility] Part B [id number] 2.16.840.1.353875.3.227.99.1037.99944.0 Self [id number] Medicare Part B Medicare Primary [id number] 2.16.840.1.585576.3.227.99.1037.99832.0 Self [id number] [place] Medicare Primary [id number] 2.16.840.1.976256.3.227.99.991.021383.0 Self [id number] [place] Medicare Primary [id number] 2.16.840.1.878470.3.227.99.991.639735.0 Self [id number] [place] Medicare Primary [id number] 2.16.840.1.441455.3.227.99.991.671349.0 Self [id number] BC/BS [facility] [place] [facility] Part B [id number] 2.16.840.1.313768.3.227.99.1037.17972.0 Self [id number] Medicare Part B Medicare Primary [id number] 2.16.840.1.947071.3.227.99.1037.43990.0 Self [id number] [place] S[employer] OPTIONS C [id number] S [id number] [place] Medicare Primary [id number] 2.16.840.1.127036.3.227.99.991.481271.0 Self [id number] BC/BS Of [place] [facility] Part B [id number] 2.16.840.1.747015.3.227.99.1037.07248.0 Self [id number] Medicare Part B Medicare Primary [id number] 2.16.840.1.623467.3.227.99.1037.97191.0 Self [id number] [place] Medicare Primary [id number] 2.0.1.554597.3.227.99.991.145655.0 Self [id number] EXCELLUS BS B [id number] S UFU [id number] EXCELLUS BS B [id number] S [id number] [id number] [place] Medicare Primary [id number] 2.0.1.629071.3.227.99.991.221247.0 Self [id number] [place] Medicare Primary [id number] 2.0.1.050550.3.227.99.991.685623.0 Self [id number] BC/BS Of [facility] Medigap Part B [id number] 2.0.1.749555.3.227.99.1037.37302.0 Self [id number] Medicare Part B Medicare Primary [id number] 2.0.1.379134.3.227.99.1037.55774.0 Self [id number] Lifetime Benefit Solution Medigap Part B [id number] 2.0.1.572245.3.227.99.991.647945.0 Family Dependent [id number] Medicare [place] Medicare Primary [id number] 2.0.1.862673.3.227.99.991.869612.0 Self [id number] [facility] [id number] 2.0.1.42155 3.3.227.99.8646.4431.0 Self [id number] Medicare [place]/NGS Medicare Primary [id number] 2.0.1.123509.3.227.99.8646.4431.0 Self [id number] MEDICARE C [id number] S [id number] Excellus BS Medigap Part B [id number] 2.0.1.93303 3.3.227.99.8646.4431.0 Self [id number] BC/BS Of [place] Commercial [id number] 2.16.840.1.798388.3.227.99.1037.85252.0 Self [id number] BC/BS Of [place] Commercial [id number] 2.16.840.1.820600.3.227.99.1037.56510.0 Family Dependent [id number] BC/BS Of [place] [facility] Part B [id number] 2.16.840.1.760460.3.227.99.1037.49938.0 Self [id number] Lifetime Benefit Solution [facility] Part B [id number] 2..840.1.488562.3.227.99.991.482614.0 Family Dependent [id number] Lifetime Benefit Solution [facility] Part B 764391 Family De pendent EXCELLUS BCBS B [id number] S UFU [id number] Lifetime Benefit ([employer]ms[employer]) Commercial [id number] Family Depende nt BC/BS [facility] [place] [facility] 36225 Family Dep endent BC/BS Of [place] Commercial [id number] Self LIFETIME BENEFIT SOLUTIO O [id number] P [id number] BCBS Excellus Ppo U[facility]W [facility] 55677 Self BCBS Excellus Ppo U[facility]W [facility] Part [facility] 59363 Self BCBS Excellus Ppo U[facility]W [facility] Part [facility] 05280 Family Depend ent BCBS Excellus Ppo U/W Commercial [id number] Self BC/BS Of [place] Commercial [id number] Family Depende nt BCBS [place] PPO 302/307 [id number] SP [id number] BLUE CROSS OTHER 1 [id number] SP [id number] EXCELLUS BCBS B UNAVAILABLE P UNAV AILABLE BC/BS [place] [facility] Part [facility] 18734 Self BC/BS [place] [facility] Part [facility] 27851 Self LIFETIME BENEFIT SOLUTIONS [id number] SP [id number] BCBS [place] PPO 302/307 [id number] SP [id number] Lifetime Benefit Solution Commercial [id number] Family Depend ent LIFETIME BENEFIT SOLUTIO S [id number] P [id number] RMSCO S [id number] S [id number] SELF PAY 2 UNAVAILABLE 1 UNAVAILA BLE BC EXC PLANS 1 [id number] UFU2 [id number] DAJUAN BC-BS PPO 306 [id number] HU2 [id number] Problems, Conditions, and Diagnoses Code Display Name Description Problem Type Effective Dates Data Source(s) E66.09 Other obesity due to excess calories Oth er obesity due to excess calories Diagnosis 09/28/2020 09:58:02 AM EDT [facility] 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 Dependence on other enabling machines an Diagnosis 09/28/2020 09:58:02 AM EDT [facility] G47.33 Obstructive sleep apnea (adult) (pediatr ic) Obstructive sleep apnea (adult) (pediatr Diagnosis 09/28/2020 09:58:02 AM EDT [facility] E78.49 Other hyperlipidemia Other hyperlipidemia Diagnosis 09/28/2020 09:58:02 AM EDT [facility] I10 Essential (primary) hypertension Essential (primary) h ypertension Diagnosis 09/28/2020 09:58:02 AM EDT [facility] I25.10 Atherosclerotic heart diseas e of [place] coronary artery without angina pectoris Atherosclerotic heart disease of [place] Diagnosis 09/28/2020 09:58:02 AM EDT [facility] I25.5 Ischemic cardiomyopathy Ischemic cardiomyopathy Diagno sis 09/28/2020 09:58:02 AM EDT [facility] I25.2 Old myocardial infarction Old myocardial infarction Di agnosis 06/22/2020 11:07:00 AM EDT [facility] R07.89 Other chest pain Other chest pain Diagnosis 06/22/2020 11 :07:00 AM EDT [facility] Z98.61 Coronary angioplasty status Coronary angioplasty statu s Diagnosis 06/22/2020 11:07:00 AM EDT [facility] Z01.810 Encounter for preprocedural cardiovascul ar examination Encounter for preprocedural cardiovascul Diagnosis 06/15/2020 10:50:41 AM EDT [facility] E78.5 Hyperlipidemia, unspecified Hyperlipidemia, unspecifie d Diagnosis 04/02/2020 11:02:09 AM EST [facility] I21.02 ST elevation (STEMI) myocard ial infarction involving left anterior descending coronary artery ST elevation (STEMI) myocardial infarcti Diagnosis 01/21/2020 08:39:00 AM EST [facility] G89.29 Chronic pain Other chronic pain Problem 08/13/2020 12:0 0:00 AM EDT eC1 ([facility]) G43.709 [id number] Chronic migraine Problem 07/15/2020 12:00:00 AM EDT eC ([facility]) G43.709 [id number] Chronic migraine w/o aura w/o status migrainosus, not intractable Problem 06/17/2020 12:00:00 AM EDT eCW1 ([facility]) I25.[address] elevation myocardial infar ction (STEMI) History of ST elevation myocardial infarction (STEMI) [id number] 06/17/2020 12:00:00 AM EDT [facility] R07.89 Other chest pain Other chest pain [id number] 06/17/2020 12 :00:00 AM EDT [facility] Z98.61 Coronary angioplasty status Coronary angioplasty statu s [id number] 06/17/2020 12:00:00 AM EDT [facility] G47.33 JAY on CPAP JAY on CPAP [id number] 01/14/2020 12:00:[address] [facility] I10 Essential hypertension Essential hypertension [id number] 01/14/2020 12:00:[address] [facility] Surgeries/Procedures Procedure Description Date Indications Data Source(s) OFFICE OUTPATIENT VISIT 15 MINUTES 01/07/2021 12:00:00 AM EST [facility] ([facility]) THERAPEUTIC PX 1/> AREAS EACH 15 MIN EXERCISES 12:00:00 AM EST [facility] ([facility] ) MANUAL THERAPY TQS 1/> REGIONS EACH 15 MINUTES 12:00:00 AM EDT [facility] ([facility] ) THERAPEUTIC PX 1/> AREAS EACH 15 MIN EXERCISES 12:00:00 AM EDT [facility] ([facility]) Physical Therapy Eval - Low Complexity 12/20/2020 12:0 0:00 AM EDT [facility] ([facility]) Shave Biopsy Of Skin, Single Lesion 12/16/2020 12:00:0 0 AM EDT [facility] ([facility]) OFFICE OUTPATIENT VISIT 25 MINUTES 12/16/2020 12:00:00 AM EDT [facility] ([facility]) OFFICE OUTPATIENT VISIT 25 MINUTES 12/07/2020 12:00:00 AM EDT [facility] ([facility] ) OFFICE OUTPATIENT VISIT 25 MINUTES 12/07/2020 12:00:00 AM EDT [facility] ([facility]) PHYSICIAN TELEPHONE EVALUATION 5-10 MIN 12/02/2020 12: 00:00 AM EDT [facility] ([facility] ) OFFICE OUTPATIENT VISIT 15 MINUTES 12/02/2020 12:00:00 AM EDT [facility] ([facility] ) FALLS RISK ASSESSMENT DOCUMENTED 11/30/2020 12:00:00 A M EDT [facility] ([facility] ) OFFICE OUTPATIENT VISIT 25 MINUTES 11/30/2020 12:00:00 AM EDT [facility] ([facility] ) BRNCDILAT RSPSE SPMTRY PRE&POST-BRNCDILAT ADMN 12:00:00 AM EDT [facility] ([facility]) OFFICE OUTPATIENT VISIT 15 MINUTES 11/26/2020 12:00:00 AM EDT [facility] ([facility]) OFFICE OUTPATIENT VISIT 15 MINUTES 11/23/2020 12:00:00 AM EDT [facility] ([facility] ) OFFICE OUTPATIENT VISIT 10 MINUTES 11/12/2020 12:00:00 AM EDT [facility] ([facility]) RADIOLOGIC EXAM KNEE COMPLETE 4/MORE VIEWS 11/11/2020 12:00:00 AM EDT [facility] ([facility]) OFFICE OUTPATIENT VISIT 25 MINUTES 11/11/2020 12:00:00 AM EDT [facility] ([facility]) OFFICE OUTPATIENT VISIT 15 MINUTES 11/11/2020 12:00:00 AM EDT [facility] ([facility]) OFFICE OUTPATIENT VISIT 25 MINUTES 11/10/2020 12:00:00 AM EDT [facility] ([facility]) OFFICE OUTPATIENT NEW 30 MINUTES 11/08/2020 12:00:00 A M EDT [facility] ([facility]) OFFICE OUTPATIENT VISIT 15 MINUTES 11/04/2020 12:00:00 AM EDT [facility] ([facility] OFFICE OUTPATIENT VISIT 15 MINUTES 11/01/2020 12:00:00 AM EDT [facility] ([facility]) THERAPEUTIC PX 1/> AREAS EACH 15 MIN EXERCISES 12:00:00 AM EDT [facility] ([facility] ) THERAPEUTIC PX 1/> AREAS EACH 15 MIN EXERCISES 12:00:00 AM EDT [facility] ([facility] ) THERAPEUTIC PX 1/> AREAS EACH 15 MIN EXERCISES 12:00:00 AM EDT [facility] ([facility] ) THERAPEUTIC PX 1/> AREAS EACH 15 MIN EXERCISES 12:00:00 AM EDT [facility] ([facility] ) THERAPEUTIC PX 1/> AREAS EACH 15 MIN EXERCISES 12:00:00 AM EDT [facility] ([facility] ) APPLICATION MODALITY 1/> AREAS HOT/COLD PACKS 10/16/19 12:00:00 AM EDT [facility] ([facility] ) Chronic Care Management Services Ea Addl 20 Min 2020 12:00:00 AM EDT [facility] ([facility]) Chronic Care MGMT 20 Mins Clinical Staff Time Per Calendar M onth 10/13/2020 12:00:00 AM EDT [facility] ([facility] ) THERAPEUTIC PX 1/> AREAS EACH 15 MIN EXERCISES 12:00:00 AM EDT [facility] ([facility] ) THERAPEUTIC PX 1/> AREAS EACH 15 MIN EXERCISES 12:00:00 AM EDT [facility] ([facility] ) THERAPEUTIC PX 1/> AREAS EACH 15 MIN EXERCISES 12:00:00 AM EDT [facility] ([facility] ) MANUAL THERAPY TQS 1/> REGIONS EACH 15 MINUTES 12:00:00 AM EDT [facility] ([facility] ) OFFICE OUTPATIENT VISIT 25 MINUTES 10/04/2020 12:00:00 AM EDT [facility] ([facility]) MANUAL THERAPY TQS 1/> REGIONS EACH 15 MINUTES 12:00:00 AM EDT [facility] ([facility] ) OFFICE OUTPATIENT VISIT 15 MINUTES 09/29/2020 12:00:00 AM EDT [facility] ([facility] ) THERAPEUTIC PX 1/> AREAS EACH 15 MIN EXERCISES 12:00:00 AM EDT [facility] ([facility] ) ARTHROCENTESIS ASPIR&/INJECTION MAJOR JT/BURSA 12:00:00 AM EDT [facility] ([facility] ) THERAPEUTIC PX 1/> AREAS EACH 15 MIN EXERCISES 12:00:00 AM EDT [facility] ([facility] ) THERAPEUTIC PX 1/> AREAS EACH 15 MIN EXERCISES 12:00:00 AM EDT [facility] ([facility] ) THERAPEUTIC PX 1/> AREAS EACH 15 MIN EXERCISES 12:00:00 AM EDT [facility] ([facility] ) THERAPEUTIC PX 1/> AREAS EACH 15 MIN EXERCISES 12:00:00 AM EDT [facility] ([facility] ) MANUAL THERAPY TQS 1/> REGIONS EACH 15 MINUTES 12:00:00 AM EDT [facility] ([facility] ) THERAPEUTIC PX 1/> AREAS EACH 15 MIN EXERCISES 12:00:00 AM EDT [facility] ([facility] ) MANUAL THERAPY TQS 1/> REGIONS EACH 15 MINUTES 12:00:00 AM EDT [facility] ([facility] ) MANUAL THERAPY TQS 1/> REGIONS EACH 15 MINUTES 12:00:00 AM EDT [facility] ([facility] ) THERAPEUTIC PX 1/> AREAS EACH 15 MIN EXERCISES 12:00:00 AM EDT [facility] ([facility] ) THERAPEUTIC PX 1/> AREAS EACH 15 MIN EXERCISES 12:00:00 AM EDT [facility] ([facility] ) MANUAL THERAPY TQS 1/> REGIONS EACH 15 MINUTES 12:00:00 AM EDT MEDENT ([facility] ) THERAPEUTIC PX 1/> AREAS EACH 15 MIN EXERCISES 12:00:00 AM EDT MEDENT ([facility] ) MANUAL THERAPY TQS 1/> REGIONS EACH 15 MINUTES 12:00:00 AM EDT MEDENT ([facility] ) THERAPEUTIC PX 1/> AREAS EACH 15 MIN EXERCISES 12:00:00 AM EDT MEDENT ([facility] ) MANUAL THERAPY TQS 1/> REGIONS EACH 15 MINUTES 12:00:00 AM EDT MEDENT ([facility] ) FALLS RISK ASSESSMENT DOCUMENTED 08/31/2020 12:00:00 A M EDT MEDENT ([facility]) OFFICE OUTPATIENT VISIT 25 MINUTES 08/31/2020 12:00:00 AM EDT MEDENT ([facility] ) Chronic Care MGMT 20 Mins Clinical Staff Time Per Calendar M [facility] 08/31/2020 12:00:00 AM EDT MEDENT ([facility] ) Physical Therapy Eval - Low Complexity 08/26/2020 12:0 0:00 AM EDT MEDENT ([facility] ) X-Ray Hips Bilateral With Pelvis 3-4 Views 08/17/2020 12:00:00 AM EDT MEDENT ([facility] ) OFFICE OUTPATIENT VISIT 15 MINUTES 08/17/2020 12:00:00 AM EDT MEDENT ([facility] ) OFFICE OUTPATIENT VISIT 25 MINUTES 08/17/2020 12:00:00 AM EDT MEDENT ([facility] ) Pain Procedure Log 08/16/2020 12:00:00 AM EDT [email or web address] ([facility]) Chronic Care Management Services Ea Addl 20 Min 2020 12:00:00 AM EDT MEDENT ([facility]) Chronic Care MGMT 20 Mins Clinical Staff Time Per Calendar M ont 07/14/2020 12:00:00 AM EDT JAMILAH ([facility] ) ECG ROUTINE ECG W/LEAST 12 LDS TRCG ONLY W/O I&R <td>E CG 12- LEAD</td><td>Routine</td><td>06/22/2020 2:28 PM EDT</td><td></td><td></td> 06/22/2020 02:28:03 PM EDT [facility] CARDIAC CATHETERIZATION <td>CARDIAC CATHETERIZATION</td><td>Routine</td><td>06/22/2020 1:36 PM EDT</td><td> Cardiomyopathy, ischemic Coronary artery disease involving [place] coronary artery of [place] heart without angina pectoris Coronary angioplasty status [...] chest painCoronary angioplasty statusCoronary artery disease involving [place] coronary artery of [place] heart without angina pectorisCardiomyopathy, ischemic [facility] History of ST elevation myocardial infar ction (STEMI) Obesity due to excess calories, unspecif ied classification, unspecified whether serious comorbidity present JAY on CPAP Essential hypertension Other hyperlipidemia Other chest pain Coronary angioplasty status Coronary artery disease involving [place] coronary artery of [place] heart without angina pectoris Cardiomyopathy, ischemic ECG ROUTINE ECG W/LEAST 12 LDS TRCG ONLY W/O I&R <td>E CG 12- LEAD</td><td>Routine</td><td>06/22/2020 11:46 AM EDT</td><td></td><td></td> 06/22/2020 11:46:22 AM EDT [facility] Operation on Heart Valve 06/22/2020 12:00:[address] ([facility]) Operation on Heart Valve 06/22/2020 12:00:[address] ([facility]) Operation on Heart Valve 06/22/2020 12:00:[address] ([facility]) Chronic Care Management Services Ea Addl 20 Min 2020 12:00:00 AM EDT MEDENT ([facility]) Chronic Care MGMT 20 Mins Clinical Staff Time Per Calendar M onth 06/17/2020 12:00:00 AM EDT MEDENT ([facility] ) BRNCDILAT RSPSE SPMTRY PRE&POST-BRNCDILAT ADMN 021 12:00:00 AM EDT MEDENT ([facility]) OFFICE OUTPATIENT VISIT 25 MINUTES 05/24/2020 12:00:00 AM EDT MEDENT ([facility] ) OFFICE OUTPATIENT VISIT 25 MINUTES 05/03/2020 12:00:00 AM EDT MEDENT ([facility]) Surgical / procedural history : 2 C-Sect ions, Cautery in nose due to nose bleed (Dr. Hussein Zamarripa), Stimulator inserted into back June 2013, Right Shoulder Surgery in July 2013, Throat [id number], Left Knee Surgery 07/2014, 1 heart stent 02/2016, Hysterectomy June 2018, Knee Surgery September 2018, Hammer Toe Surgery 02/2019, 2 heart stents and cleaning of other stent 02/2019 Surgical / procedural history : 2 C-Sections, Cautery in nose due to nose bleed (Dr. Hussein Zamarripa), Stimulator inserted into back June 2013, Right Shoulder Surgery in July 2013, Throat [id number], Left Knee Surgery 07/2014, 1 heart stent 02/2016, Hysterectomy June 2018, Knee Surgery September 2018, Hammer Toe Surgery 02/2019, 2 heart stents and cleaning of other stent 02/201904/27/2020 12:00:00 AM EST JERI (Pancho Larsen MD [facility]) Comprehensive eye exam established patient Comprehensi ve eye exam established patient 04/27/2020 12:00:00 AM EST JERI (Chauncey Larsen MD [facility]) CHEMODNRVTJ MUSC MUSC INNERVATED FACIAL NRV 03/12/2020 12:00:00 AM EST MEDENT ([facility]) TROPONIN QUANTITATIVE <td>TROPONIN I</td><td>Routi ne</td><td>01/23/2020 6:20 AM EST</td><td></td><td> </td> 01/23/2020 11:20:00 AM EST [facility] BLOOD COUNT COMPLETE AUTOMATED <td>CBC</td><td>Routine </td><td>01/23/2020 6:20 AM EST</td><td></td><td> </td> 01/23/2020 11:20:00 AM EST [facility] BASIC METABOLIC PANEL CALCIUM TOTAL <td>BASIC METABOLI C PANEL</td><td>Routine</td><td>01/23/2020 6:20 AM EST</td><td></td><td> </td> 01/23/2020 11:20:00 AM EST [facility] CT ANGIOGRAPHY CHEST W/CONTRAST/NONCONTRAST <td>CT ANG IOGRAM CHEST</td><td>Routine</td><td>01/22/2020 10:06 PM EST</td><td></td><td> </td> 01/23/2020 03:06:19 AM EST [facility] CREATINE KINASE MB FRACTION ONLY <td>CKMB</td><td>Rout ine</td><td>01/22/2020 9:02 PM EST</td><td></td><td> </td> 01/23/2020 02:02:00 AM EST [facility] TROPONIN QUANTITATIVE <td>TROPONIN I</td><td>Add-O n</td><td>01/22/2020 4:14 PM EST</td><td></td><td> </td> 01/22/2020 09:14:00 PM EST [facility] FIBRIN DGRADJ PRODUCTS D-DIMER QUANTITATIVE <td>D-DIME R, QUANTITATIVE</td><td>STAT</td><td>01/22/2020 4:14 PM EST</td><td></td><td> </td> 01/22/2020 09:14:00 PM EST [facility] CMB <td>CMB</td><td>STAT</td><td >01/22/2020 1:26 PM EST</td><td></td><td> </td> 01/22/2020 06:26:00 PM EST [facility] TROPONIN QUANTITATIVE <td>TROPONIN I</td><td>STAT< /td><td>01/22/2020 1:26 PM EST</td><td></td><td> </td> 01/22/2020 06:26:00 PM EST [facility] CREATINE KINASE MB FRACTION ONLY <td>CKMB</td><td>STAT </td><td>01/22/2020 1:26 PM EST</td><td></td><td> </td> 01/22/2020 06:26:00 PM EST [facility] ECG ROUTINE ECG W/LEAST 12 LDS W/I&R <td>ECG 12- LEAD</td><td>Routine</td><td>01/22/2020 11:51 AM EST</td><td></td><td></td> 01/22/2020 04:51:46 PM EST [facility] ECG ROUTINE ECG W/LEAST 12 LDS TRCG ONLY W/O I&R <td>E CG 12- LEAD</td><td>Routine</td><td>01/22/2020 5:11 AM EST</td><td></td><td></td> 01/22/2020 10:11:01 AM EST [facility] BASIC METABOLIC PANEL CALCIUM TOTAL <td>BASIC METABOLI C PANEL</td><td>Routine</td><td>01/22/2020 4:43 AM EST</td><td></td><td> </td> 01/22/2020 09:43:00 AM EST [facility] ECG ROUTINE ECG W/LEAST 12 LDS TRCG ONLY W/O I&R <td>E CG 12- LEAD</td><td>Routine</td><td>01/21/2020 1:19 PM EST</td><td></td><td></td> 01/21/2020 06:19:33 PM EST [facility] CARDIAC CATHETERIZATION <td>CARDIAC CATHETERIZATION</td><td>Routine</td><td>01/21/2020 12:47 PM EST</td><td> Coronary angioplasty status Cardiomyopathy, ischemic Hyperlipidemia, unspecified hyperlipidemia type ST elevation (STEMI) myocardial infarction involving left anterior descending coronary artery Essential hypertension JAY on CPAP</td><td> </td> 01/21/2020 05:47:04 PM EST JAY on CPAPEssential hypertensionST elev ation (STEMI) myocardial infarction involving left anterior descending coronary arteryHyperlipidemia, unspecified hyperlipidemia typeCardiomyopathy, ischemicCoronary angioplasty status [facility] JAY on CPAP Essential hypertension ST elevation (STEMI) myocardial infarcti on involving left anterior descending coronary artery Hyperlipidemia, unspecified hyperlipidem ia type Cardiomyopathy, ischemic Coronary angioplasty status ECG ROUTINE ECG W/LEAST 12 LDS TRCG ONLY W/O I&R <td>E CG 12- LEAD</td><td>Routine</td><td>01/21/2020 8:59 AM EST</td><td></td><td></td> 01/21/2020 01:59:03 PM EST [facility] Operation on Heart Valve 01/21/2020 12:00:[address] ([facility]) Operation on Heart Valve 01/21/2020 12:00:[address] ([facility]) Operation on Heart Valve 01/21/2020 12:00:[address] ([facility]) Operation on Heart Valve 01/21/2020 12:00:[address] ([facility]) CHEMODNRVTJ MUSC MUSC INNERVATED FACIAL NRV 12/11/2019 12:00:00 AM EDT MEDENT ([facility] ) Needle electromyography, each extremity, with related paraspinal areas, when performed, done with nerve conduction, amplitude and latency/velocity study; complete, five or more muscles studied, innervated by three or more nerves or four or more spinal levels (list separately in addition to the code for primary procedure). 11/24/2019 12:00:00 AM EDT MEDEN T ([facility] ) Needle electromyography, each extremity, with related paraspinal areas, when performed, done with nerve conduction, amplitude and latency/velocity study; complete, five or more muscles studied, innervated by three or more nerves or four or more spinal levels (list separately in addition to the code for primary procedure). 11/24/2019 12:00:00 AM EDT MEDEN T ([facility] ) Needle Electromyography Non Extremity Done With Nerve Conduc tion 11/24/2019 12:00:00 AM EDT MEDENT ([facility]) [id number] Nerve conduction studies 13 or more studies NEW 201211/24/2019 12:00:00 AM EDT MEDENT ([facility] ) Results ID Date Data Source [id number] 01/07/2021 12:00:00 AM EST [facility] Name Value Range Interpretation Code Description Data Viki rce(s) Supporting Document(s) SARS-CoV2 Rapid Antigen Negative [facility] This lab was reported by Jannie Cazares. ID Date Data Source [id number] 12/16/2020 03:29:00 PM EDT MEDENT ([facility]) Name Value Range Interpretation Code Description Data Viki rce(s) Supporting Document(s) Laboratory test finding (navigational concept) Laboratory test result MEDENT ([facility]) No further treatment Laboratory test finding (navigational concept) Laboratory test result MEDENT ([facility]) No further treatment ID Date Data Source [id number] 12/07/2020 11:57:00 AM EDT MEDENT ([facility]) Name Value Range Interpretation Code Description Data Viki rce(s) Supporting Document(s) C reactive protein [Mass/volume] in Serum or Plasma by High sensitivity method 0.95 mg/dL 0.00-0.30 [facility] ([facility]) Erythrocyte sedimentation rate by Westergren method 24 mm/hr 0-30 MED[facility] ([facility]) ID Date Data Source [id number] 12/07/2020 11:57:00 AM EDT MEDENT ([facility]) Name Value Range Interpretation Code Description Data Viki rce(s) Supporting Document(s) White Blood Count 8.1 10 4.0-10.0 MEDENT ([facility]) Red Blood Count 4.07 10 4.00-5.40 MED[facility] ([facility]) Hemoglobin 12.3 g/dL 12.0-15.5 MEDENT ([facility]) Mean Corpuscular Volume 94.6 fl 80.0-96.0 M EDENT ([facility]) Mean Corpuscular Hemoglobin 30.2 pg 27.0-33.0 MEDENT ([facility]) Hematocrit 38.5 % 36.0-47.0 MED[facility] ([facility]) Platelet Count, Automated 311 10 150-450 MED[facility] ([facility]) Red Cell Distribution Width 14.3 % 11.5-14.5 MED[facility] ([facility]) Mean Corpuscular HGB Conc 31.9 g/dL 32.0-36.5 MEDENT ([facility]) Neutrophils % 66.6 % 36.0-66.0 MED[facility] ([facility]) Lymph % 24.9 % 24.0-44.0 [facility]) Childress % 6.8 % 2.0-8.0 MEDENT ([facility]) Baso % 0.7 % 0.0-1.0 MEDENT ([facility]) Immature Granulocyte % 0.5 % 0-3.0 MEDENT ([facility]) Eos % 0.5 % 0.0-3.0 [facility] ([facility]) Nucleated Red Blood Cell % 0.0 % 0-0 MED ENT ([facility]) Neutrophils # 5.4 10 1.5-8.5 MEDENT ([facility]) Childress # 0.6 10 0.0-0.8 [facility] ([facility]) Lymph # 2.0 10 1.5-5.0 [facility] ([facility]) Baso # 0.1 10 0.0-0.2 [facility] ([facility]) Eos # 0.0 10 0.0-0.5 [facility] ([facility]) ID Date Data Source [id number] 11/23/2020 01:12:00 PM EDT MEDENT ([facility]) Name Value Range Interpretation Code Description Data Viki rce(s) Supporting Document(s) Erythrocyte sedimentation rate by Westergren method 27 mm/hr 0-30 MED[facility] ([facility]) C reactive protein [Mass/volume] in Serum or Plasma by High sensitivity method 0.94 mg/dL 0.00-0.30 [facility] ([facility]) ID Date Data Source [id number] 11/23/2020 01:12:00 PM EDT MED[facility] ([facility]) Name Value Range Interpretation Code Description Data Viki rce(s) Supporting Document(s) White Blood Count 10.5 10 4.0-10.0 [facility] ([facility]) Red Blood Count 4.06 10 4.00-5.40 MED[facility] ([facility]) Hemoglobin 12.5 g/dL 12.0-15.5 MEDENT ([facility]) Hematocrit 39.2 % 36.0-47.0 MED[facility] ([facility]) Mean Corpuscular HGB Conc 31.9 g/dL 32.0-36.5 MEDENT ([facility]) Mean Corpuscular Hemoglobin 30.8 pg 27.0-33.0 MED[facility] ([facility]) Mean Corpuscular Volume 96.6 fl 80.0-96.0 M EDENT ([facility]) Red Cell Distribution Width 14.6 % 11.5-14.5 MEDENT ([facility]) Platelet Count, Automated 383 10 150-450 [facility] ([facility]) Lymph % 22.5 % 24.0-44.0 [facility] Neutrophils % 68.7 % 36.0-66.0 [facility]) Childress % 7.2 % 2.0-8.0 [facility] Immature Granulocyte % 0.4 % 0-3.0 [facility] ([facility]) Eos % 0.4 % 0.0-3.0 [facility] Baso % 0.8 % 0.0-1.0 [facility] Nucleated Red Blood Cell % 0.0 % 0-0 MED ENT ([facility]) Neutrophils # 7.2 10 1.5-8.5 [facility]) Lymph # 2.4 10 1.5-5.0 [facility] Baso # 0.1 10 0.0-0.2 [facility] Eos # 0.0 10 0.0-0.5 [facility] Child[place] # 0.8 10 0.0-0.8 [facility] ID Date Data Source [id number] 11/13/2020 12:31:00 AM EDT [facility] Name Value Range Interpretation Code Description Data Viki rce(s) Supporting Document(s) SARS coronavirus 2 RNA [Presence] in Res piratory specimen by BRO with probe detection NEGATIVE [facility] This lab was ordered by [facility] a nd reported by [facility]. ID Date Data Source [id number] 11/12/2020 07:14:00 PM EDT MEDENT ([facility]) Name Value Range Interpretation Code Description Data Viki rce(s) Supporting Document(s) White Blood Count 8.8 10 4.0-10.0 MEDENT ([facility]) Hemoglobin 12.2 g/dL 12.0-15.5 [facility] Red Blood Count 4.03 10 4.00-5.40 MEDENT ([facility]) Mean Corpuscular Volume 94.8 fl 80.0-96.0 MEDENT ([facility]) Mean Corpuscular Hemoglobin 30.3 pg 27.0-33.0 ME DENT ([facility]) Hematocrit 38.2 % 36.0-47.0 [facility] Mean Corpuscular HGB Conc 31.9 g/dL 32.0-36.5 MEDE NT ([facility]) Red Cell Distribution Width 14.4 % 11.5-14.5 ME DENT ([facility]) Neutrophils % 69.2 % 36.0-66.0 MEDENT ([facility]) Lymph % 21.0 % 24.0-44.0 [facility]) Platelet Count, Automated 304 10 150-450 MEDE NT ([facility]) Childress % 7.6 % 2.0-8.0 [facility]) Eos % 1.3 % 0.0-3.0 [facility]) Baso % 0.6 % 0.0-1.0 [facility]) Immature Granulocyte % 0.3 % 0-3.0 MEDENT ([facility]) Nucleated Red Blood Cell % 0.0 % 0-0 MED ENT ([facility]) Neutrophils # 6.1 10 1.5-8.5 MEDENT ([facility]) Lymph # 1.8 10 1.5-5.0 [facility]) Childress # 0.7 10 0.0-0.8 [facility]) Baso # 0.1 10 0.0-0.2 [facility]) Eos # 0.1 10 0.0-0.5 [facility]) ID Date Data Source [id number] 11/12/2020 07:14:00 PM EDT MEDENT ([facility]) Name Value Range Interpretation Code Description Data Viki rce(s) Supporting Document(s) C reactive protein [Mass/volume] in Serum or Plasma by High sensitivity method 3.05 mg/dL 0.00-0.30 MEDENT ([facility] ) ID Date Data Source [id number] 11/12/2020 07:14:00 PM EDT MEDENT ([facility]) Name Value Range Interpretation Code Description Data Viki rce(s) Supporting Document(s) Glucose, Fasting 78 mg/dL 70-100 MEDENT ([facility]) Blood Urea Nitrogen 6 mg/dL 7-18 MEDENT ([facility]) Creatinine For GFR 0.70 mg/dL 0.55-1.30 MEDENT ([facility]) Glomerular Filtration Rate Laboratory test result MEDENT ([facility]) <content>Units are mL/min/1.73 m2</content>
<content></content>
<content>Chronic Kidney Disease Staging per NKF:</content>
<content></content>
<content>Stage I & II GFR >=60 Normal to Mildly Decreased</content>
<content>Stage III GFR 30- 59 Moderately Decreased</content>
<content>Stage IV GFR 15-29 Severely Decreased</content>
<content>Stage V GFR <15 Very Little GFR Left</content>
<content>ESRD GFR <15 on LADIES' HAT TRIMMER</content>
<content></content> Potassium Serum 5.9 meq/L 3.5-5.1 MEDENT ([facility]) Testing was performed on a hemolysed spe cimen. Suggest recollection of specimen for more accurate test results. Sodium Level 138 meq/L 136-145 MEDENT ([facility]) Carbon Dioxide Level 24 meq/L 21-32 [facility] Anion Gap 7 meq/L 8-16 [facility] [facility]) Chloride Level 107 meq/L 98-107 MEDENT ([facility]) Calcium Level 7.8 mg/dL 8.8-10.2 MEDENT ([facility]) ID Date Data Source [id number] 11/12/2020 07:14:00 PM EDT MEDENT ([facility]) Name Value Range Interpretation Code Description Data Viki rce(s) Supporting Document(s) Erythrocyte sedimentation rate by Westergren method 37 mm/hr 0-30 MEDENT ([facility]) ID Date Data Source [id number] 11/10/2020 01:59:00 PM EDT MEDENT ([facility]) Name Value Range Interpretation Code Description Data Viki rce(s) Supporting Document(s) Erythrocytes [#/volume] in Blood by Automated count 3.89 x10*6/UL 4.2 0-6.30 MEDENT ([facility]) Leukocytes [#/volume] in Blood by Automated count 9.2 x10*3/UL 4.1-10 .9 MEDENT ([facility]) Hemoglobin [Mass/volume] in Blood 12.1 g/dL 12.0-18.0 MEDENT ([facility]) MCV 90.2 fL 80.0-97.0 [facility] [facility] MCH 31.2 pg 26.0-32.0 MEDENT ([facility]) Hematocrit [Volume Fraction] of Blood by Automated count 35.1 % 3 7.0-51.0 [facility] Platelets [#/volume] in Blood by Automated count 386 x10*3/UL 140-440 [facility] Erythrocyte distribution width [Ratio] by Automated count 14.1 % 11.6-13.7 [facility] MCHC 34.5 g/dL 31.0-38.0 [facility] [facility]) Mid % 4.7 % 1.7-9.3 [facility] [facility]) Lymph % 17.1 % 10.0-58.5 [facility] [facility] MPV 7.9 FL 7.8-11.0 [facility] [facility]) Mid # 0.5 x10*3/UL 0.1-0.6 MED[facility] ([facility]) Neut % 78.2 % 37.0-92.0 [facility] [facility] Lymph # 1.5 x10*3/UL 0.6-4.1 MEDENT ([facility]) Neut # 7.2 x10*3/UL 2.0-7.8 MEDENT ([facility]) ID Date Data Source [id number] 11/10/2020 01:59:00 PM EDT MEDENT ([facility]) Name Value Range Interpretation Code Description Data Viki rce(s) Supporting Document(s) Glucose [Mass/volume] in Serum or Plasma 79 mg/dL 74-99 MED[facility] ([facility]) 100-125 mg/dL PRE-DIABETES/FASTING >126 mg/dL DIABETES/FASTING Urea nitrogen [Mass/volume] in Serum or Plasma 7 mg/dL 7-18 MEDENT ([facility]) Creatinine 0.8 mg/dL 0.6-1.3 MEDENT ([facility]) Sodium [Moles/volume] in Serum or Plasma 137 meq/L 136-145 MED[facility] ([facility]) Potassium [Moles/volume] in Serum or Plasma 3.6 meq/L 3.5-5.1 MEDENT ([facility]) Chloride [Moles/volume] in Serum or Plasma 103 meq/L 98-107 MED[facility] ([facility]) Carbon dioxide, total [Moles/volume] in Serum or Plasma 30 meq/L 21 -32 [facility] Glomerular filtration rate/1.73 sq M pre dicted among blacks [Volume Rate/Area] in Serum or Plasma by Creatinine-based formula (MDRD) Laboratory test result [facility] <content>CHRONIC KIDNEY DISEASE STAGING PER NKF</content>
<content></content>
<content>STAGE I & II GFR >= 60 NORMAL TO MILDLY DECREASED</content>
<content>STAGE III GFR 30-59 MODERATELY DECREASED</content>
<content>STAGE IV GFR 15-29 SEVERELY DECREASED</content>
<content>STAGE V GFR <15 VERY LITTLE GFR LEFT</content>
<content>ESRD GFR <15 ON LADIES' HAT TRIMMER</content>
<content></content> Glomerular filtration rate/1.73 sq M pre dicted among non-blacks [Volume Rate/Area] in Serum or Plasma by Creatinine-based formula (MDRD) Laboratory test result MEDENT ([facility] ) Calcium [Mass/volume] in Serum or Plasma 8.5 mg/dL 8.5-10.1 [facility] ([facility]) ID Date Data Source [id number] 11/03/2020 10:30:00 AM EDT [facility] Name Value Range Interpretation Code Description Data Viki rce(s) Supporting Document(s) SARS-CoV-2 (COVID-19) RNA [Presence] in Respiratory specimen by BRO with probe detection Not Detected [facility] This lab was ordered by [facility] and reported by [employer]. ID Date Data Source [id number] 11/01/2020 06:49:00 PM EDT [facility] Name Value Range Interpretation Code Description Data Viki rce(s) Supporting Document(s) Laboratory test finding (navigational concept) 41.0 % 38.0-51.0 MED[facility] ([facility]) Laboratory test finding (navigational concept) 137 meq/L 136-145 [facility] ([facility]) Laboratory test finding (navigational concept) 82 mg/dL 70-105 [facility] ([facility]) Laboratory test finding (navigational concept) 3.4 meq/L 3.5-5.1 [facility] ([facility]) Laboratory test finding (navigational concept) 21.0 MM/L 23.0-27.0 [facility] ([facility]) Laboratory test finding (navigational concept) 105 meq/L 98-109 [facility] ([facility]) Laboratory test finding (navigational concept) 4.7 mg/dL 4.5-5.3 [facility] ([facility]) Laboratory test finding (navigational concept) 5 mg/dL 8-26 [facility] ([facility]) Laboratory test finding (navigational concept) 0.6 mg/dL 0.6-1.3 [facility] ([facility]) ID Date Data Source [id number] 11/01/2020 06:44:00 PM EDT [facility] ([facility] Name Value Range Interpretation Code Description Data Viki rce(s) Supporting Document(s) White Blood Count 10.2 10 4.0-10.0 [facility] ([facility]) Red Blood Count 4.22 10 4.00-5.40 [facility] ([facility]) Hemoglobin 12.8 g/dL 12.0-15.5 [facility] Hematocrit 39.5 % 36.0-47.0 [facility] Mean Corpuscular Volume 93.6 fl 80.0-96.0 [facility] ([facility]) Mean Corpuscular HGB Conc 32.4 g/dL 32.0-36.5 MEDE NT ([facility]) Mean Corpuscular Hemoglobin 30.3 pg 27.0-33.0 ME D[facility] ([facility]) Platelet Count, Automated 317 10 150-450 [facility] NT ([facility]) Neutrophils % 68.2 % 36.0-66.0 [facility] Red Cell Distribution Width 14.2 % 11.5-14.5 [facility] ([facility]) Lymph % 23.4 % 24.0-44.0 [facility] Eos % 0.4 % 0.0-3.0 [facility] [place] % 6.9 % 2.0-8.0 [facility] Immature Granulocyte % 0.4 % 0-3.0 [facility] ([facility]) Baso % 0.7 % 0.0-1.0 [facility] Neutrophils # 7.0 10 1.5-8.5 [facility] ([facility]) Nucleated Red Blood Cell % 0.0 % 0-0 MED ENT ([facility]) Eos # 0.0 10 0.0-0.5 [facility] [place] # 0.7 10 0.0-0.8 [facility] Lymph # 2.4 10 1.5-5.0 [facility] Baso # 0.1 10 0.0-0.2 [facility] ([facility]) ID Date Data Source [id number] 11/01/2020 06:44:00 PM EDT [facility] Name Value Range Interpretation Code Description Data Viki rce(s) Supporting Document(s) Inr 0.87 [facility] ([facility]) THERAPUTIC HUMAN INR VALUES INDICATIONS NORMAL RANGES PROPHYLAXIS/TREATMENT OF: VENOUS THROMBOSIS 2.0-3.0 PULMONARY EMBOLISM 2.0-3.0 PREVENTION OF SYSTEMIC EMBOLISM FROM: TISSUE HEART VALVES 2.0-3.0 ACUTE MYOCARDIAL INFARCTION 2.0-3.0 VALVULAR HEART DISEASE 2.0-3.0 ATRIAL FIBRILLATION 2.0-3.0 MECHANICAL VALVES(HIGH RISK) 2.5-3.5 RECURRENT MYOCARDIAL INFARCTION 2.5-3.5 Prothrombin Time 12.2 s 12.7-14.5 [facility] ([facility] Partial Thromboplastin Time 25.9 s 25.9-37.0 [facility] ID Date Data Source [id number] 11/01/2020 10:46:00 AM EDT [facility] Name Value Range Interpretation Code Description Data Viki rce(s) Supporting Document(s) Appearance, Urine Laboratory test result [facility] Color, Urine Laboratory test result [facility] PH,Urine 6.0 units 5.0-9.0 [facility] ([facility]) Protein, Urine Auto Laboratory test result [facility] Specific [place] Urine Auto 1.003 1.002-1.035 [facility] Glucose, Urine (Ua) Auto Laboratory test result [facility] Ketone, Urine Auto Laboratory test result [facility] Urobilinogen, Urine Auto 0.2 mg/dL 0.0-2.0 [facility] T [facility] Bilirubin, Urine Auto Laboratory test result [facility] Nitrite, Urine Auto Laboratory test result [facility] ([facility]) Leukocyte Esterase, Urine Auto Laboratory test result [facility] ([facility]) WBC, Urine Auto 4 /HPF 0-3 [facility] ([facility]) Blood, Urine Blood Laboratory test result [facility] ([facility]) Bacteria, Urine Auto Laboratory test result [facility] RBC, Urine Auto 1 /HPF 0-3 [facility] ([facility]) Mucus, Urine Laboratory test result [facility] Squamous Epithelial Cell Ur AU 3 /HPF 0-6 [facility] Hyaline Cast, Urine Auto 0 /LPF 0-1 [facility] ID Date Data Source [id number] 11/01/2020 10:46:00 AM EDT [facility] ([facility] Name Value Range Interpretation Code Description Data Viki rce(s) Supporting Document(s) Bacteria identified in Urine by Culture Laboratory test result [facility] FULL REPORT IN LAB NOTES (eCW and [facility] ). NO GROWTH ID Date Data Source [id number] 10/04/2020 01:10:00 PM EDT [facility] ([facility] Name Value Range Interpretation Code Description Data Viki rce(s) Supporting Document(s) Slide Review Laboratory test result MEDE NT ([facility]) Slide and/or specimen referred to Pathol ogist for review. Results of the review are located in the EMR Pathology module under Peripheral Smear when completed. Reason For Review Laboratory test result [facility] WBC/LEUKEMIA/BLAST Source Laboratory test result [facility] PERIPHERAL SMEAR ID Date Data Source [id number] 10/04/2020 01:10:00 PM EDT [facility] ([facility] Name Value Range Interpretation Code Description Data Viki rce(s) Supporting Document(s) Bacteria identified in Urine by Culture Laboratory test result [facility] FULL REPORT IN LAB NOTES ([facility] and [facility] ). NO GROWTH ID Date Data Source [id number] 10/04/2020 12:42:00 PM EDT [facility] ([facility]) Name Value Range Interpretation Code Description Data Viki rce(s) Supporting Document(s) Surgical pathology study Laboratory test result [facility] ([facility]) 10/05/2020 - 841 PERPHERAL SMEAR REVIEW Peripheral smear: Leukocytosis associated with an increased in neutrophils. Erythrocytes appear normal in number and are overall normochromic. Nucleated red cells are not seen. Platelet count within normal limits. No blast forms are identified. 10/05/2020 - 841 Signed LUI DONNELLY MD 10/05/2020 0843 ID Date Data Source [id number] 10/04/2020 12:42:00 PM EDT [facility] Name Value Range Interpretation Code Description Data Viki rce(s) Supporting Document(s) Urine PH 6.5 units 5.0-9.0 [facility] Urine Appearance Laboratory test result Abnormal (applies to non-numeric results) [facility] ([facility]) Urine Color Laboratory test result [facility]EN T ([facility]) Urine Blood Laboratory test result Abnormal (applies to non-numeric results) [facility] ([facility]) Urine Leukocytes Laboratory test result Abnormal (applies to non-numeric results) [facility] Specific gravity of Urine 1.005 1.005-1.030 [facility] ([facility]) Urine Protein Laboratory test result 0-0 MED ENT ([facility]) Glucose [Presence] in [facility]rine [facility] Urine Nitrite Laboratory test result [facility] ([facility]) Urine Urobilinogen 0.2 mg/dL 0.2-1.0 [facility] ([facility]) Urine Ketone Laboratory test result [facility] Bilirubin.total [Mass/volume] in Serum or Plasma Laboratory test resu lt [facility] ([facility]) ID Date Data Source [id number] 10/04/2020 12:42:[address] [facility] Name Value Range Interpretation Code Description Data Viki rce(s) Supporting Document(s) Glucose [Mass/volume] in Serum or Plasma 84 mg/dL 74-99 [facility] ([facility]) 100-125 mg/dL PRE-DIABETES/FASTING >126 mg/dL DIABETES/FASTING Sodium [Moles/volume] in Serum or Plasma 133 meq/L 136-145 [facility] ([facility]) Urea nitrogen [Mass/volume] in Serum or Plasma 9 mg/dL 7-18 [facility] ([facility]) Creatinine 0.8 mg/dL 0.6-1.3 [facility] Carbon dioxide, total [Moles/volume] in Serum or Plasma 30 meq/L 21 -32 [facility] ([facility]) Chloride [Moles/volume] in Serum or Plasma 97 meq/L 98-107 [facility] ([facility]) Calcium [Mass/volume] in Serum or Plasma 9.0 mg/dL 8.5-10.1 [facility] ([facility]) Potassium [Moles/volume] in Serum or Plasma 3.7 meq/L 3.5-5.1 [facility] ([facility]) Glomerular filtration rate/1.73 sq M pre dicted among non-blacks [Volume Rate/Area] in Serum or Plasma by Creatinine-based formula (MDRD) Laboratory test result [facility] ([facility] ) Glomerular filtration rate/1.73 sq M pre dicted among blacks [Volume Rate/Area] in Serum or Plasma by Creatinine-based formula (MDRD) Laboratory test result [facility] ([facility]) <content>CHRONIC KIDNEY DISEASE STAGING PER NKF</content>
<content></content>
<content>STAGE I & II GFR >= 60 NORMAL TO MILDLY DECREASED</content>
<content>STAGE III GFR 30-59 MODERATELY DECREASED</content>
<content>STAGE IV GFR 15-29 SEVERELY DECREASED</content>
<content>STAGE V GFR <15 VERY LITTLE GFR LEFT</content>
<content>ESRD GFR <15 ON LADIES' HAT TRIMMER</content>
<content></content> ID Date Data Source [id number] 10/04/2020 12:42:00 PM EDT [facility] ([facility]) Name Value Range Interpretation Code Description Data Viki rce(s) Supporting Document(s) Erythrocytes [#/volume] in Blood by Automated count 4.56 x10*6/UL 4.2 0-6.30 [facility] ([facility]) Leukocytes [#/volume] in Blood by Automated count 13.3 x10*3/UL 4.1-1 0.9 [facility] ([facility]) NOTE: RESULT VERIFIED. Hemoglobin [Mass/volume] in Blood 13.9 g/dL 12.0-18.0 [facility] ([facility]) MCV 90.1 fL 80.0-97.0 [facility] [facility] MCH 30.5 pg 26.0-32.0 [facility] [facility] Hematocrit [Volume Fraction] of Blood by Automated count 41.1 % 3 7.0-51.0 [facility] ([facility]) Erythrocyte distribution width [Ratio] by Automated count 13.4 % 11.6-13.7 [facility] ([facility]) Platelets [#/volume] in Blood by Automated count 386 x10*3/UL 140-440 [facility] ([facility]) MCHC 33.8 g/dL 31.0-38.0 [facility] [facility]) Mid % 5.2 % 1.7-9.3 [facility] [facility] MPV 7.7 FL 7.8-11.0 [facility] [facility] Lymph % 16.3 % 10.0-58.5 [facility] [facility] Mid # 0.8 x10*3/UL 0.1-0.6 [facility] ([facility]) Neut % 78.5 % 37.0-92.0 [facility] [facility] Lymph # 2.1 x10*3/UL 0.6-4.1 [facility] ([facility]) Neut # 10.4 x10*3/UL 2.0-7.8 [facility] ([facility]) ID Date Data Source [id number] 09/30/2020 11:39:00 AM EDT [facility] ([facility]) Name Value Range Interpretation Code Description Data Viki rce(s) Supporting Document(s) Thyrotropin [Units/volume] in Serum or Plasma by Detec tion limit <= 0.05 mIU/L 0.38 uIU/mL 0.36-3.74 [facility] ([facility] ) Thyroxine (T4) free [Mass/volume] in Serum or Plasma 1.21 ng/dL 0.76- 1.46 [facility] ([facility]) ID Date Data Source [id number] 09/30/2020 11:39:00 AM EDT [facility] ([facility]) Name Value Range Interpretation Code Description Data Viki rce(s) Supporting Document(s) Cholesterol [Mass/volume] in Serum or Plasma 163 mg/dL 131-200 [facility] ([facility]) Cholesterol in HDL [Mass/volume] in Serum or Plasma 72 mg/dL 35-60 [facility] ([facility]) Triglyceride [Mass/volume] in Serum or Plasma 93 mg/dL 30-150 [facility] ([facility]) Cholesterol in LDL [Mass/volume] in Serum or Plasma by calcu lation 72 CALC 50-159 [facility] ID Date Data Source [id number] 09/30/2020 11:39:00 AM EDT [facility] Name Value Range Interpretation Code Description Data Viki rce(s) Supporting Document(s) Glucose [Mass/volume] in Serum or Plasma 103 mg/dL 74-99 [facility] ([facility]) 100-125 mg/dL PRE-DIABETES/FASTING >126 mg/dL DIABETES/FASTING Urea nitrogen [Mass/volume] in Serum or Plasma 8 mg/dL 7-18 [facility] ([facility]) Creatinine 0.9 mg/dL 0.6-1.3 [facility] Sodium [Moles/volume] in Serum or Plasma 131 meq/L 136-145 [facility] ([facility]) NOTE: RESULT VERIFIED. Chloride [Moles/volume] in Serum or Plasma 97 meq/L 98-107 [facility] ([facility]) Potassium [Moles/volume] in Serum or Plasma 4.3 meq/L 3.5-5.1 [facility] ([facility]) Calcium [Mass/volume] in Serum or Plasma 9.7 mg/dL 8.5-10.1 [facility] ([facility]) Carbon dioxide, total [Moles/volume] in Serum or Plasma 24 meq/L 21 -32 [facility] ([facility]) Total Bilirubin 0.5 mg/dL 0.2-1.0 [facility] ([facility]) Alkaline phosphatase isoenzyme [Units/volume] in Serum or Pl asma 109 mg/dL 46-116 [facility] ([facility]) Aspartate aminotransferase [Enzymatic activity/volume] in Serum or Plasma 23 U/L 15-37 [facility] ([facility] ) Proteinase 3 Ab [Units/volume] in Serum 7.0 g/dL 6.4-8.2 [facility] ([facility]) Albumin [Mass/volume] in Serum or Plasma 3.9 g/dL 3.4-5.0 [facility] ([facility]) Alanine aminotransferase [Enzymatic activity/volume] in Seru m or Plasma 31 U/L 12-78 [facility] ([facility]) A/G Ratio 1.26 CALC 1.00-1.90 [facility] Glomerular filtration rate/1.73 sq M pre dicted among non-blacks [Volume Rate/Area] in Serum or Plasma by Creatinine-based formula (MDRD) Laboratory test result [facility] Glomerular filtration rate/1.73 sq M pre dicted among blacks [Volume Rate/Area] in Serum or Plasma by Creatinine-based formula (MDRD) Laboratory test result [facility] ([facility]) <content>CHRONIC KIDNEY DISEASE STAGING PER NKF</content>
<content></content>
<content>STAGE I & II GFR >= 60 NORMAL TO MILDLY DECREASED</content>
<content>STAGE III GFR 30-59 MODERATELY DECREASED</content>
<content>STAGE IV GFR 15-29 SEVERELY DECREASED</content>
<content>STAGE V GFR <15 VERY LITTLE GFR LEFT</content>
<content>ESRD GFR <15 ON LADIES' HAT TRIMMER</content>
<content></content> ID Date Data Source [id number] 09/30/2020 11:39:00 AM EDT [facility] ([facility]) Name Value Range Interpretation Code Description Data Viki rce(s) Supporting Document(s) Leukocytes [#/volume] in Blood by Automated count 13.2 x10*3/UL 4.1-1 0.9 [facility] ([facility]) NOTE: RESULT VERIFIED. Hemoglobin [Mass/volume] in Blood 13.3 g/dL 12.0-18.0 [facility] ([facility]) Erythrocytes [#/volume] in Blood by Automated count 4.37 x10*6/UL 4.2 0-6.30 [facility] ([facility]) MCV 90.4 fL 80.0-97.0 [facility] [facility] Hematocrit [Volume Fraction] of Blood by Automated count 39.6 % 3 7.0-51.0 [facility] ([facility]) MCH 30.4 pg 26.0-32.0 [facility] [facility] Erythrocyte distribution width [Ratio] by Automated count 13.7 % 11.6-13.7 [facility] ([facility]) Platelets [#/volume] in Blood by Automated count 381 x10*3/UL 140-440 [facility] ([facility]) MCHC 33.6 g/dL 31.0-38.0 [facility] [facility] MPV 7.9 FL 7.8-11.0 [facility] [facility] Lymph % 8.1 % 10.0-58.5 [facility] [facility] Mid % 2.9 % 1.7-9.3 [facility] [facility] Lymph # 1.0 x10*3/UL 0.6-4.1 [facility] ([facility]) Neut % 89.0 % 37.0-92.0 [facility] [facility] Neut # 11.8 x10*3/UL 2.0-7.8 [facility] ([facility]) Mid # 0.4 x10*3/UL 0.1-0.6 [facility] ([facility]) ID Date Data Source [id number] 07/10/2020 11:30:00 AM EDT [facility] Name Value Range Interpretation Code Description Data Viki rce(s) Supporting Document(s) SARS-CoV-2 (COVID-19) RNA [Presence] in Respiratory specimen by BRO with probe detection Not Detected [facility] This lab was ordered by [facility] and reported by [employer]. ID Date Data Source [id number] 06/22/2020 03:28:46 PM EDT [facility] Name Value Range Interpretation Code Description Data Viki rce(s) Supporting Document([facility]) [facility]x7aXrFVRjWot3AzEcAtSHVfUQ1kimw3Q8D4fAIaJ6NpjBPja9ghU0BbO9QlZMQmKWEYMB3LjFMa jb2 [file] +5dSs/[employer]/4MGc1TdN9Hju/2CoqLP9cXDy5UTh8mCW t6z8sw0pO0Tfui6cfFSftIdPG76d9jS2oiPYXlrgfeFmGp6g1oU6zhCCIjtbiuBWx45Edq1Knv9YWLa8 9WAy75kacYmDks4T0rAgiE3ojKpLsi4ozyHzTef5XNb6ZtDWRl/ZdPX3jgHdAstgmDSpO+vk7PfDe31c aWIkiwReWtWx/Eh5aU+VvSnjfVp70x2ACqpXTAyTTX kicZKAHMYTWceiTj/Ztgt4fkDPRXRT3osJQ2VWZwimwrxVO5mX0UXXa15bLIugxk2D469LU12iIFzxzN M/ZR18XcZUWgvFZDZ3rZGDLb9zRfvZTUZo3vUc+RadRwc3IiZXuZtrNQWW4DNRS2WmfKbKgm3X3bUZmw R8Gg/apcLSqEz2FnpmdLQaShokXP4Xa8eltSrsVohU AHiwqYtbWJXI1uUGrvxCHIHGILP7l//j//O//rv7LJH/jMr/+v/99//6/8r/+7//9f//7//4X9WX+9/7 Rd6+3Bf/7+rL/Q/X7Cchi6v16cnP/QM8a9Z7a6kIp/bjxI5nAiXZo2qs2yG0z9i+vXLhwBQ9q2/cE/X5 lRv1+ZW76/AR5hOFbKC/4DZLXFL3IWz9Xm9fHOzDmS mti0LrcvfJqQheH+MifH2IqsU1huk0k2OH+Gghvkmxz8t1VwYYQ/WPFmVeNQ4fiU9nC+6pz6/cU5//k/ tPv/k5RQnoST/g/MNS+Pxh/CHj5qgRQ5lKBa6b9jfsE4L1w6noJFKokjbgKXM4fHFrmKd6QwVTJMt3Yo +z034Wgm86T5bhHvptgJthiRZWWGM81WHtjEZ2nRZ/ z/lWbqrV6cWYiARol+5DjY23pKOe5DjqkVvFfgfe7beRo96q+WHFd+E7DZowIepx/d2gZbZfeSYe0gsU jydffxx5tCV9Q0iJC4cg086Z+dTp6RB3jhr2EGpvPfvZVVs0ApoUfLrzA+QuXO+y3xy+Wx89t+/ORz+P d+Pjn8P/rtL+cK9j/vCqz6/cdT/3S4ga572tum6+5d 0auNjR0x++sXa/crM+/7XqSDt0n1o/cLmGGziBz+A/e/IZUpkEDpuAYvDhBMQ73sbf5SEHkCJEt0v2go e9zwkhkxj6ig/uxg/gNar7vuoIu5lkQPj3Glvlozc9+t16tzV+MIKD9J1l5haw3h/5c3DqbiA0vCF/C7 kHcg/mIyrhy3C8oh5x1mO56m5jNb/q2k/iO+enj5W9 tocbvzKpi7Lha9Z+n/ilPjD34g6UroQ49+JPy79H2ovf7e9fH6/fvb4bF+43BsfXwn3/dapft/18Kit7 BgG7524+sZK0lbMqLb+iPp/rNRl/w/APVxGLtiJVhkF21LAntMOk18+SLeKWaOMUsOKtLHF5aQPS6eOw Xeik0pb37w9awgY5sLTo/G/i8/CakZzetaGasDYs3i 9xz7RGxqth/2clpV5lSFduXvP9VGxyuJTvZeiQbWcA3+/leKcmzw4Iy44sOx3yJ/AVtnLA0dQYGI2eI7 hJXJdtiKlL6UIlhRhIGEyStbIs4zckkkv+lcG/MvhXBv/LOuDL2gaC2b/8qwX/vv9or2mcnYz2dJ74mI qkHx59mxwLQmx2JgmUlXU85J8R/XnzApooWfrdiF6O YMjVGeelc3+FOcPJC85y0MtQl+b+Fku3sEoHDi+MGAXvg3cvpQe4d8BBy6RZ+Srinivas/PothY09uHh/6vpU azk+D3w+/tUq/8rrO+cdf3jtw/btsVz+RhQwl9o08YoCRndFv8/rdxI4QlptjZ45bxrc3h4/5xMISe3k Moky7Vt0rc47U9ufVPJR1yyzd+Msm7H1tPkkMRszs3 /N/+u+1W7ELOhPF4EEx+AEPoPLXjWWkZWQW/rx0DGG5FEkrTdT8DUB2a5zhoqL5qa/T7Y1xaIJo5ni// JrWqthsv6m4stB0cg70zb+e87c0L/LlXUj/y73+zvUu8qlo6z9j/vPN+tv103nse3m9Z4dife//aUb8m 9/ycteXf/NQug5w4mdS0e911LOqdasqFwqcW8ugWLz uYyf4/AmVTzSwL1MVHpVVMmFUrGfcr6gkUNm7765P14WOZDIUGGHew6lINEXqs6xRxb6tW2P93tzkEnm W0W8jAuSDlQl4BO3LsgmqM4d7oEp3kpyfK/ADhzAuL+O++xrH8b6oJICtyoc3Si3sm8yu5/l8K8c/pVH As/71/fEcxz+le95H/Michelle+n8INcjWH/8bwLP+8jhXz n8K4d/0CgdE64zw604aGFUabCs5GLfmKOvuw/7EWAFNmDILf+jrQYd7IJicgPbWyY8c7M/RzLiHy4XlH 8K+FcB/nhhAqG0f2V0yjAegyAnf4hsBW/tFEMbvm016Z9R95om3COZDEgOLTPCkAG7cESOPofhkE1PKp pO5pJAVmPKjxcxB9Qzp/p8/+PLHOSWsBwgTe3fhh+6 MZYo/6qx/nySKP/K6/P1iy9F+Hw0wKPr/JxYGziBz+Dyr+47K8q/YjAKl2uF46jgt1S+d+AYfcq/unGw 8ImbhU/9ZXO1fOu1hpUHEnnVeE0S+tyw4srcUwL7q9p/jcXJLmNqRVIFYgJZPeEThdR95SQvwmN18b7j T8VERiXVcsWtK470BRIcC7MSu+t67/fP+JNxBBjjfG cs9rdz453GEGrUE9k6CO1UOrcRsd/ZzDX1Y0v8p94lQ708/Ug6Gm051C+ED3tqGmd9sDJxK765UxBZ9l /BMaD5tCFpdJHG9yORVIbEY/4XrhBrGHOQg7mRS23VcoskXhy4pbr6qqu8rnt2csdcf9656Vb1snY+tR G/9ljgcqObeb95mEb6G9Pf0OdH8juLNQnIEFnTL/DY 571mHbpXAmNe+QMswPM+2j7vo+7U2KFEBl0t+7w9gc/gsleNBXjWvztm/btjATtwAG/bWV85ygT/uLcA Q+1t22ey5qqvy/D4ZqDB53b35d0l/+8ZnGOfN/wscNbwFIGW4JHKvJCRtPb3uC7njF4ExuD6UY4Z2SB6 C1SX8R1NH5dVMh8bXWaohR3C4/[id number] [file] ++vvi3I0d5a0ssKPc5r1ob+35/0/3652j7/dFm10qG iZnPbu+3WMa+P7z8/qWD16DLC3dl2p7oA8HGo9+4vaflTlecVBo/SeKO7WK620eNDB/NamPXJ/uTQ3f7 v7vP/8o2r8KtpSdE8N6RCT3ZM9n4zm1aqLusnQbg41G0z2OS60Tx7n5yP51/398+/iGHk7yhe39iBcoq FeYuBoZxway62ATfeh1OemCzTi0imie09d0g+Can3c 32/bMLZyWUX/j5y/jesi/AwKKgDpjm0BP9v+/x3sQ38Mr85GE9OUNQOnM0dnsu/mhJ0oyK4ivxSsWmzghC PH3+4Ea4t4D/Km6fv5W7zr1xeHzf4HowcVMe4svG8rSWpobsZmwHDaEO9HXX9ax5DfInH7DCVvj7DjEF dtJHa7nLIuFFfzbiImp4DcpggvP1Lqe1SlUpQmBQZr WnAaBwv5QBQxZwU8bYIfZwYbXPAzS9EfLYZxRfM3NmHsMCNTHK7KCZFjugVtJfPsJPD+IvWkLA5mraqp WNQmq8TwQMobSPpeFQXnZ3C8eAcsVDFzX8EtoF82MMUiP2NmgmK1SYI5FOBxLzQkVYTelEKlDHYsSSV+ TuQqHV6hmfkpAWWps3OtMGrqASA3yW1vCTcHBSUXRE cGZGfkLfB3l88hzfGRDNLoDJNwPP0DycJnsDhxzlMemAMuQKT5MzIkLFQ2KXKtSYO5ZWRYPCLmUPWhGP TgUOMvX5AvhIzjNIwNLNHFMVoJRRmlTaYjj0F2TUBvchWNZztIFCphIyWVGRXxHYLpNtK7GKZqDOCzZ4 QnczNqmAVmYJREVMljZzhuYLQpfY4kkSrrE6PdOVT5 a4McVT0GJ7PxQDHhYCTDKYJ7c4SwDHSubklfrmftWcTdYXFcJKBqUEZyHN6Jpr4vgSRaqnGjYHWHBOvs QirtLP9wrCnbbwlaN5LhmFEnPCO+XeIqEB2whw4+NvEsWZIxVev2KHFeLZrpTWLjETDpQLAtQ5wkLOZy NbOrPQDdPaFvCX6Da0JenFJeQs0tqdXmRnyMwTWvRo erQTPeCGBmOHMdCoEFZXSvREXyAAUrHDR1XTDyGQHzWYyyRKSmDHJ0GRd8YMZgXBKsBH4rSdBkOZViOT c3SBYaFGWxAFWsopOXWTIuTQW0RMfwOHEbPKWpHMWqPTciTNDxQXCdCVDbCAF3QAA4BCOcPyKaRTIuFP LrYUUnGHNvXYPbfwHFBUMvUVSnTHS6LHUeGFKjJQEt GLjpMFRzYQWaEXfdHNBdQYKsQU6oJqHwEVFxXSAnTSdbQSLoQJCphoPGCCBqDIYzVSRfOUOqZBWiWLVk WDciINLxNKIuYLEnHBKyGYZmNV1rFsTrABHyDTF2YSPoNBVpUBHmwlHBXPXdDPDrIWe7PHKmVAEpVOVn ECgjYWQyFUFoUOK5ZHGmCOTiAF6gImBuZZTgANZ0Gt RaCYAkLHDwdcHPPFMqPZXbMYJ4XvBqUNIuTCYsIIfmPCZaPSSaFEqvSXWzQSRsAH7eDbPmKVXyRIPuVA lgTOEeCHHmwrGAMSWqJMKiVEJyKcFyUBKkYHAtRFopGPOuMRM1DuNrHXVmRPHeFB3jDqLvDVGdSCB1DG kgMDAwMDAgbiAKMDAwMDAwMTczNCAwMDAwMCBuIAow DEOmOEElXEV2AEZzICMzXV3aCoKsFTXbNRNoCLRpKgT5RzBxZnYThMAwtSrzyyu1ZPjuS4c8SEXhKCdl XZ5gsuLnZFNlEvlsAc0ytUH2XXNyNurPRg3Qb6XtreC2xrRbKhC8WqVnEtInVN3N ID Date Data Source [id number] 06/22/2020 01:40:29 PM EDT [facility] Name Value Range Interpretation Code Description Data Viki rce(s) Supporting Document(s) &PDF [facility] CHHEEt5wTkVBXpWm25/NZPrzPUMtj4YrNCzhLTw8DKqpZVSmL0LmnTprVJmJXXjWAZjMIaJPBPYfETZ5 waW [file] m6jEjTyxPTTFmG+1BVk6h7fGAiKG+JXRhba7Y+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 [file] 7BOpUFGVR7RULVV7ye+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+be6V5sSAagxpq7nw/ocPC6OmtBOLU8VzN8OabjmEPgA5xW4ccMt40i2uSy [file] vld0HfW2nIEGgOAa5slBCMDL7PN2YrSjnZuX+KIjSXOK+aKo9bCin3JrathyGJsBbwCYFm9XvN+abstract writer/d [file] AgICAgICAgICAgICAgICAgICAgICAgICAgICAgICAg GHVxMVLxIKOkCMVbCVUfEDGnIQXgZIHnGRKhYFTlXQTmTNXiJIXmMFSiAILwCL7IRLMqHXBqZAGbEXCj ICAgICAgICAgICAgICAgICAgICAgICAgICAgICAgICAgICAgICAgICAgICAgICAgICAgICAgICAgICAg SEZvERApAERlEABeDFVcRIHbJSPaBQAbIBZrPI4MNI AgICAgICAgICAgICAgICAgICAgICAgICAgICAgICAgICAgICAgICAgICAgICAgICAgICAgICAgICAgIC KaJFKxUDUmTKXzHHSaJNHlMVZxPTNcCVUjEMXrQWEoMMLmEIYbCI9EEHUcPZVxDCZiADNgIRWxAIMpWY AgICAgICAgICAgICAgICAgICAgICAgICAgICAgICAg SIUwHCUqVHCkHXJhQNUtWRApLXOqCYJdKEMsCXZmVOEiDEWjRPNhPEZdXBJfSAFdPT7KHDFpUYDvDTMv ICAgICAgICAgICAgICAgICAgICAgICAgICAgICAgICAgICAgICAgICAgICAgICAgICAgICAgICAgICAg ICAgICAgICAgICAgICAgICAgICAgICAgICAgICAgIA 0KICAgICAgICAgICAgICAgICAgICAgICAgICAgICAgICAgICAgICAgICAgICAgICAgICAgICAgICAgIC CgNHVtBUJsYRYfOYYaGQDaBXMwHVYwYTLqCKItDMVdNOBlPSYfMECiPJ0OFELsPYEuBSOhHMFiIYRsJN AgICAgICAgICAgICAgICAgICAgICAgICAgICAgICAg NGJcBNRmDPAdSXBhAVSiMNDzEZHuFRIkIMGqXDXrCVKuCYEhHBIiYYGdAWSyEJZaHNInPD6JURWxCMLm ICAgICAgICAgICAgICAgICAgICAgICAgICAgICAgICAgICAgICAgICAgICAgICAgICAgICAgICAgICAg ICAgICAgICAgICAgICAgICAgICAgICAgICAgICAgIC BbYA0ZNKAyHIJoTDXfPOHrVHMiNCUqZIUdXTXwCRTbHVUqLCIcUTOmFJKaZQLwDQHcOYIvSZDmOAEnWV MzVCGiRWQeGVNiEKJkUNLlCKYzLGWyUSIaYUSaLBZnGVMcZICbGFFeIIXjFU7QIGLfIAPhDKRwDRWsYP AgICAgICAgICAgICAgICAgICAgICAgICAgICAgICAg GSEtPOVrORAkZOQgWKYxKIUiCDSrDJHpUVVkGDLpFCVsQROhGXPrMOLhPSLyBTEsSMVnKDIhFF5BFL97 lOLyq2N7NUWhRN9svoc/Gv1MUYafhgZymYJaEQ7GXdXpVZ2yse2TNtQeLC1xfu2XBMeDItOpB2D0kMTp CSMwLBIJGrHvI31vPGnkSp44JTfkPWXhRdXoMFs0Vs 7SCmHtS9jxCOZmIzZ0HEYtUsQ5JOWtUrM3GQRfWlBqGGHcSDBvCJVbWMOCZYL2UGHqBlVyWHkiLK2Za0 WqvXN7NIe+Pa5CCU0fy4FlNAcmAKWkWR2kko5GYIhIJxFbU2BgoaP3YZD8BPDlGi7WNGXcPCGzjXMpRU XgSVJSVeDlY1IkjV10FGPUZr2+DQplbmRvYmoNCjM1 RQPwt8KeCZu7TE8UZCBtSBh6dKKkXI2cyOYoqLKdLJenSS3GMYE9LCnqCwXiYGUtN5iMIjSgUVI4WELq vYipKB1JIhRxT2ZqitHggMTqAHQkWLECVy0+LAdtufIfBhnQHuC5TBVzc0OuBRw7GP0DHQKeBFfiZT0V OXLhvV3tRDdaKQ9EXfBtNcFkJBSAAfAaY73hfOAmUJ j2O9WwTaTvNRGkMlflIDLaZTpcVxRxKKWaLtKrAQurHT7+ID4+EAptEU0JDOllpkMlEKAfLn3GOSLvNN PeHG4gUYEsNBJhP4T4xZutXSWGIeZmT4payhqpWS1iIOYqA330vClkjeDuIZT1WAUbJt2NLARjAPH1QJ SwyEGdUcCbHOZUCEgeUC5FjXDsNWC3lS6sFPkiXDWs MCPmH1qLNwAwiTtyGD23tJiijkMmqLPeJWe+Xo3CRC4xs7QtHDs1nfAxPPmbQXH9XUjyLRYsLPThLFXx VUD8PBW9UGYPAlPmTLIvBTNiREczQKDzNIPzii3ZMNAaZDN0CHztGCYnFXGoROGqNMliIHVbUXaqYfP1 IUIwVECaKH9CNxYqWZTlWRLvBWvqGUYaUNVuwf5MGT UfFNAwXsP7PFXiEVEyMWOuAAkoSYBdKBWiCuu4GOFtVWBgJQ5MNyPfMTVzHAAtMYTgRANeYSUrok6TGN NhWCPtKHMpKfXmJTUfKLOkWRqbQUZqPHD2UqzjHQOuKTCfRC2OGyAkRDCdHCS1SCQtZHXwTGHcma8FSW MhBMGdSJG7IuLbFXMtUBJuBGcoYOTwMKF1QKqxIFIr WGYmPR7UQmWvTRGaFFL9ZimkLKXbVTVjlx3OXXTrNHKdLZk2DYBsOERwKXXmJZhsOYXmFYIoBSM0QMDy UGMfRD6SKfEsAPClDJTtFrPnIFLpEHDlpr9ZUCFxECOpPrB7PODwHHUsLWAhETzeKUDqOYRiCtemQFXs YCCaML4BSiJnZYHgWNT9HlPaKJVvWENhuu5YPGXfGP PiEWItJtHfGDCgPAOoEGfvEEFvWFV2JuJ0NCCzNQUeMQ8QTmQtNEIxJBJ7VWYmDEXuQTNdhw1LFGZwZS PuTYUzDcPlJOFgCPKnAZexTNCbOGCmWIX2DCPnPGHlHW0APyQrYAXjUmAbByUcTPOyYTBgpv9SYEIpNW V6ZmFaLFUrDFWaDLAvSXydZHZrBCMwNQC4PTVbXUIh SU4SNgDdHUIcQpW9QCWeIOTvGSAuht9TMLOcGLP8HEU3JhPhTWYsNVJnLPloJRJxWBV2MgH9SHLtRBGx KL5GSaYrVWOxLdRxGiZrGXQcWFVoog3UYFFnUTP9ADclSzHbIGMsWFVkGYtlVUPfPOmkLbI9TKNwQSZm KY1SDsZvBLSsUHG9QkOfYPJaLUIeiq4UASOkIIU6OS beDqPwBCKhZVFkTQpiVHUwSKahMAZ6XBJdLXZkRJ3TUvSgODrsPJJLEcd1PCvbN5x6NEMlFu8GN8Luf3 DeKzPvGWSWYYerXM5lidGkUCPmQx3RJ2xTQpp7IKC8LmEkYVC0K4D4OhQmMhSnNIL1TTC6AIS8JUV3Fn 2uVBi9IZxcKcUiYTr0AWChSAYgSVJ9DdCvVMT2Cad8 TqbqQdKfTX8SGf0ZGzE6BZU2fZOjAy0IIXBsHFEVWjCdKH4KIQg= ID Date Data Source [id number] 06/22/2020 12:40:06 PM EDT [facility] Name Value Range Interpretation Code Description Data Viki rce(s) Supporting Document(s) EKG [facility] QHWKHk5nGkDLOpRmh1AxCvPvZCGdHP7qiig9I8D2aOXfT0RkhKLvi5vwS5DpP7FlDHMeXPKZEF9AyXWb jb2 [file] l8V2jrMEEPhaLwH54fnKlTf2oljy8euHy5anaT+MfDLJE/I7vj1m9uEVp//5Fp4/0/znv//facility practice specialist//8ZePP f//r58DP//927d85N0/917/99b/87f/40/z587f/+6//9re/1Ym4q6CYl2Pyt//7t3/1w1day61m//zz [file] t/Sb/7oSbUhYZQ+boZIjqD96kcdKve/c/yu5dM [file] TrRwzCNu6Vf0MvxrY5vsTkNeGvPFvlPgLdGH1S ID Date Data Source [id number] 06/18/2020 07:38:00 AM EDT [facility] FASTING: UNKNOWNReceived: 06/18/2020 at 07:10:00 QPT: [facility], [address], [address] [place] [address], [phone], Efra Mendez MD Received: 06/18/2020 at 07:10:00 QPT : [facility], [address] , [address] [place] [address], [phone], Efra Mendez MD Received: 06/18/2020 at 07:10:00 QPT : [facility], [address] , [address] [place] [address], [phone], Efra Mendez MD Name Value Range Interpretation [...] of LDL-C.Sergey SS et al. MARYCARMEN. 2013;310(19): 0843-2049(http://education.[employer]/faq/WNE578) Cholesterol.total/Cholesterol in HDL [Mass Ratio] in Serum [...] considered a therapeuticoption. ID Date Data Source [id number] 06/18/2020 07:38:00 AM EDT [facility] FASTING: UNKNOWNReceived: 06/18/2020 at 07:10:00 QPT: [facility], [address], [address] [place] [address], [phone], Efra Mendez MD Received: 06/18/2020 at 07:10:00 QPT : [facility], [address], [address] [place] [address], [phone], Efra Mendez MD Received: 06/18/2020 at 07:10:00 QPT : [facility], [address], [address] [place] [address], [phone], Efra Mendez MD Name Value Range Interpretation [...] is approximately 13% higher for peopleidentified as -Argent[place]. eGFR NON-AFR. SCOTTISH 77 mL/min/1.73m2 > OR = 60 Normal [...] results) [facility] ID Date Data Source [id number] 06/18/2020 07:38:00 AM EDT [facility] FASTING: UNKNOWNReceived: 06/18/2020 at 07:10:00 QPT: [facility], [address], [address] [place] [address], [phone], Efra Mendez MD Received: 06/18/2020 at 07:10:00 QPT : [facility], [address], [address] [place] [address], [phone], Efra Mendez MD Received: 06/18/2020 at 07:10:00 QPT : [facility], [address], [address] [place] [address], [phone], Efra Mendez MD Name Value Range Interpretation [...] in Blood by Automated count 5725 cells/uL [id number] Normal (applies to non-numeric results) [facility] [...] results) [facility] ID Date Data Source [id number] 06/17/2020 11:30:00 AM EDT [facility] ([facility]) Name Value Range Interpretation Code Description Data Viki rce(s) Supporting Document(s) Coronavirus 2019 Nasopharygeal Laboratory test result [facility] ([facility]) ASSAY INFORMATION: Real Time RT-PCR NOTE: The COVID-19 assay has been cleared by the U.S. Food and Drug Administration under the Emergency Use Authorization (EUA). [facility] and [employer] are designated as high complexity laboratories by the Clinical Laboratory Improvement Amendments of 1988(CLIA) and are qualified to perform this test. Not Detected ID Date Data Source [id number] 06/17/2020 11:30:00 AM EDT [facility] Name Value Range Interpretation Code Description Data Viki rce(s) Supporting Document(s) SARS-CoV-2 (COVID-19) RNA [Presence] in Respiratory specimen by BRO with probe detection Not Detected [facility] This lab was ordered by [facility] and reported by [employer]. ID Date Data Source [id number] 06/15/2020 07:10:34 PM EDT [facility] Name Value Range Interpretation Code Description Data Viki rce(s) Supporting Document(s) &PDF [facility] FHYTUr5wAxBTVfUo04/SJNwyZMHtv5NiTDhuXJh9ARomSSRsV5TysHxbIBmQTLmHXVrZNqUJHALxSFB2 [facility] [place] AgICAgICAgICAgICAgICAgICAgICAgICAgICAgICAg AREeZFEuVHVoDEKjUSJwKIYhEUSzHKTuCULjPPVkFVPwRFReBPIpKFUbLXUfBNOhGLEsORZxCO3DDYTl ICAgICAgICAgICAgICAgICAgICAgICAgICAgICAgICAgICAgICAgICAgICAgICAgICAgICAgICAgICAg ICAgICAgICAgICAgICAgICAgICAgICAgICAgICAgIC VwHXEePV2WCAAxOCIqRDSuDBQmJJEkHDFvQTUeIUIsGTQmKMUzEGTjVZXhNCGcIXMsYDCmJXSuJDMfDK XbPVWgPFAeQJDvYVQdCZRnIUGoEEAxCZFcRLYxLQYcISVaWYAgCWPaCEExIYAtAD7AJALfUWLhSUPuZP AgICAgICAgICAgICAgICAgICAgICAgICAgICAgICAg KLRxIQRuUKOmASKeMVZcOTKyVQGuQVQmXKJsXTVjOKUnTUPxKLDhDNDdZSKrLSUmHRGxXAAoCFRvNE0K ICAgICAgICAgICAgICAgICAgICAgICAgICAgICAgICAgICAgICAgICAgICAgICAgICAgICAgICAgICAg ICAgICAgICAgICAgICAgICAgICAgICAgICAgICAgIC FjHHNqKEBvVV3XNEZcGLXxJRQwTTQwRVQlXGOjHTGgAYBkUYIcXAXhDEHkKFPdIZUeGXLoVTPuIYCjPN ZaRQTdMMQsOSApQGCtMGStZUAlUYNoYKEhFLPzYLZgBHQkTVKbGVLuMXMsAFYlJVHqIZ7XKBXfPIQqQU AgICAgICAgICAgICAgICAgICAgICAgICAgICAgICAg ICAgICAgICAgICAgICAgICAgICAgICAgICAgICAgICAgICAgICAgICAgICAgICAgICAgICAgICAgICAg CW2YUHYuQEGcWEYrJKWqGKKbKJRjPZWkNTEhEMWjRSCbUEToNKVkNBEeHEBuAJRbLWGqRYPoKSFfHSCp ICAgICAgICAgICAgICAgICAgICAgICAgICAgICAgIC YdJRTpZLQbDDEgIF5YUFHiVZGlEIUjSTHsEWQnNSBdXVCyTUPtLYMtMRBtRIHnVQBpFSYyPOAvGPWiMN JoSEFeUAUtFYCmDDFeSQXjBTLjSEYfDTMcATBxTSAgLYAyQZHkMWRiLVJeLIUqJWNhAHDfDT8ORH61aA Ncl0U1PYWxCY1mgvr/Jm2BSNummgQosLNcDV1BCzYq ES2dgs5UYaTnLN6fqt9BOQsNAtHlI0K3zGZqMYDgTDUIBpVrD18hMDedGg65ODedABYlGkSoMZu4Od0J UkPqD2ffWJCwOgU1PCEwPtA0XTLuIiQoZHexHC2Li7QffDAaOLr+Lk3HMP1ka2XfEFfnSKNhTC6fek7Q OMuJNdTdM6N6bVNdB2H6VRdiBf0GNMLwYMMsOjKaAU XLGQemMY6UPY1mvoN8WB2NhTSyGVCpFVUbjKCwXKn6F24vgJTsNRbcJJ1WLCZ+Bryan+Vi8DLBJdQCFjIO LwAcLeDJOOAnIlQ81huFRoGOAqULA1LHPhFw1GNBWaB3NvytEoqCrbysVnVHBtEMFYPY5BEOcsauOwzF QylLohEJ81cVisWF6UEt8FRtYjGS8qgo8HmFBjQf7H NDUeHA2XIZNyQMDdPJFfRZX1HSSdVtMuYJcmSWXgDUXmCXJ2KNXsKSKwQR9IPsLgEKXtFCZxYLLuBQKs JUMwik2QUEXtRFRgOEc6DlXfVTYaCFDvMDksVFFhGVSgYInjTXFsTJMhXW2HXfOmNNQtLYQ2EVeuZJIf UUBfla4CBQNbACHgXID4YJMyZVNrXIViFNrpXKEzWQ I0RhT0PITkKMWaCM2DEmKjNOPhEET4LpVbBIZpJEYjxy8WVJMtYTAvZytbFURgBVUaUQRxXIfxAMYlUI Z8CHU2OZZrQRNaUW4JAbEpPIGuALbuUNOfLXHkRQJizh9PWULhLJFlRZL2LYPoBURjGIPrAJbsOHHpEO Z7XyJ9HIJaAVWpOD2UWoMsTFMhESu0HXJsUGMcAYZb bm1BYZTwVIVaPECoLxYaWSPtQTJhSGtfGMViPSU8BpT0XROkNFAdCG5NLyGbNSWgBUn9XWlfPZRyIQRz ye1KBHQjTYOuIKz6HiTjOBKwUZGqRPfeGORgHQZoNOW3FXYuIEZpHF4OMsTiNRInDQHdMQYbYNVhEMBo qd2YSSUgNONpMRY4NBQdUHWfRCVfWWriGNQvIXAhAQ w0FOHjFMNnYV8JUbGcUYZrNUQvQhQvASEpCMRqcz4IAQVtXPIiCbZ7MzBcPCUkWBRaUOsjSYWhVZAtFv uvLCLpJIAxZW6KNhOfSTFqCIJ4CWUhHAKaZJRnmd3CUVUtUIShBbIePwZhAPDfNPThUNfpFCWrRIY9GH C8OOZaWMIdEC3JDkUjCFztALYXZjh6AXmdW3c7IGEh VU6ZU8Lny7UvPltxFQNPEDvdMW4czjUoGBDbLf4DU1oKQfexQhXzSdNdE7UsBQxiKVU9LqNvTmI1RNUm BnNgJ0P7QH9wBXPyMJIoWOIjYHT8NPPrYzfcZ6WkVwzlAGNzHBG5JTmfNlOxZX7NMf6KVhZ8GRE3oSVz Og3KBAKzYFGZQuVsTW0BGBd= ID Date Data Source [id number] 05/03/2020 02:47:00 PM EDT [facility] ([facility]) Name Value Range Interpretation Code Description Data Viki rce(s) Supporting Document(s) Glucose [Mass/volume] in Serum or Plasma 103 mg/dL 74-99 [facility] ([facility]) 100-125 mg/dL PRE-DIABETES/FASTING >126 mg/dL DIABETES/FASTING Urea nitrogen [Mass/volume] in Serum or Plasma 7 mg/dL 7-18 [facility] ([facility]) Creatinine 0.9 mg/dL 0.6-1.3 [facility] Sodium [Moles/volume] in Serum or Plasma 137 meq/L 136-145 [facility] ([facility]) Potassium [Moles/volume] in Serum or Plasma 3.8 meq/L 3.5-5.1 [facility] ([facility]) Carbon dioxide, total [Moles/volume] in Serum or Plasma 26 meq/L 21 -32 [facility] ([facility]) Chloride [Moles/volume] in Serum or Plasma 101 meq/L 98-107 [facility] ([facility]) Calcium [Mass/volume] in Serum or Plasma 8.6 mg/dL 8.5-10.1 [facility] ([facility]) Alkaline phosphatase isoenzyme [Units/volume] in Serum or Pl asma 112 mg/dL 46-116 [facility] ([facility]) Aspartate aminotransferase [Enzymatic activity/volume] in Serum or Plasma 20 U/L 15-37 [facility] ([facility] ) Total Bilirubin 0.3 mg/dL 0.2-1.0 [facility] ([facility]) Alanine aminotransferase [Enzymatic activity/volume] in Seru m or Plasma 25 U/L 12-78 [facility] ([facility]) Proteinase 3 Ab [Units/volume] in Serum 6.8 g/dL 6.4-8.2 [facility] ([facility]) Albumin [Mass/volume] in Serum or Plasma 3.8 g/dL 3.4-5.0 [facility] ([facility]) A/G Ratio 1.27 CALC 1.00-1.90 [facility] Glomerular filtration rate/1.73 sq M pre dicted among blacks [Volume Rate/Area] in Serum or Plasma by Creatinine-based formula (MDRD) Laboratory test result [facility] <content>CHRONIC KIDNEY DISEASE STAGING PER NKF</content>
<content></content>
<content>STAGE I & II GFR >= 60 NORMAL TO MILDLY DECREASED</content>
<content>STAGE III GFR 30-59 MODERATELY DECREASED</content>
<content>STAGE IV GFR 15-29 SEVERELY DECREASED</content>
<content>STAGE V GFR <15 VERY LITTLE GFR LEFT</content>
<content>ESRD GFR <15 ON LADIES' HAT TRIMMER</content>
<content></content> Glomerular filtration rate/1.73 sq M pre dicted among non-blacks [Volume Rate/Area] in Serum or Plasma by Creatinine-based formula (MDRD) Laboratory test result [facility] ID Date Data Source [id number] 05/03/2020 02:47:00 PM EDT [facility] Name Value Range Interpretation Code Description Data Viki rce(s) Supporting Document(s) Leukocytes [#/volume] in Blood by Automated count 9.9 x10*3/UL 4.1-10 .9 [facility] Erythrocytes [#/volume] in Blood by Automated count 4.18 x10*6/UL 4.2 0-6.30 [facility] Hemoglobin [Mass/volume] in Blood 13.0 g/dL 12.0-18.0 [facility] ([facility]) MCV 90.1 fL 80.0-97.0 [facility] MCH 31.0 pg 26.0-32.0 [facility] ([facility]) Hematocrit [Volume Fraction] of Blood by Automated count 37.7 % 3 7.0-51.0 [facility] MCHC 34.4 g/dL 31.0-38.0 [facility] ([facility]) Erythrocyte distribution width [Ratio] by Automated count 13.3 % 11.6-13.7 [facility] Platelets [#/volume] in Blood by Automated count 310 x10*3/UL 140-440 [facility] ([facility]) MPV 8.0 FL 7.8-11.0 [facility] Lymph % 21.1 % 10.0-58.5 [facility] Mid % 4.8 % 1.7-9.3 [facility] Neut % 74.1 % 37.0-92.0 [facility] Lymph # 2.1 x10*3/UL 0.6-4.1 [facility] ([facility]) Mid # 0.4 x10*3/UL 0.1-0.6 [facility] ([facility]) Neut # 7.4 x10*3/UL 2.0-7.8 [facility] ([facility]) ID Date Data Source [id number] 03/05/2020 03:00:00 PM EST [facility] ([facility]) Name Value Range Interpretation Code Description Data Viki rce(s) Supporting Document(s) Bacteria identified in Urine by Culture Laboratory test result [facility] FULL REPORT IN LAB NOTES ([facility] and [facility] ). SPECIMEN APPEARS CONTAMINATED ID Date Data Source [id number] 03/05/2020 03:00:00 PM EST [facility] ([facility]) Name Value Range Interpretation Code Description Data Viki rce(s) Supporting Document(s) Urine PH 6.0 units 5.0-9.0 [facility] ([facility]) Urine Appearance Laboratory test result Abnormal (applies to non-numeric results) [facility] ([facility]) Urine Color Laboratory test result [facility] ([facility]) Urine Blood Laboratory test result Abnormal (applies to non-numeric results) [facility] ([facility]) Urine Leukocytes Laboratory test result Abnormal (applies to non-numeric results) [facility] ([facility]) Specific gravity of Urine 1.005 1.005-1.030 [facility] Urine Protein Laboratory test result 0-0 [facility] ([facility]) Glucose [Presence] in Urine Laboratory test result [facility] ([facility]) Urine Nitrite Laboratory test result [facility] ([facility]) Bilirubin.total [Mass/volume] in Serum or Plasma Laboratory test resu lt [facility] ([facility]) Urine Ketone Laboratory test result [facility] ([facility]) Urine Urobilinogen 0.2 mg/dL 0.2-1.0 [facility] ([facility]) ID Date Data Source [id number] 01/28/2020 11:20:00 AM EST [facility] ([facility]) Name Value Range Interpretation Code Description Data Viki rce(s) Supporting Document(s) Thyrotropin [Units/volume] in Serum or Plasma by Detec tion limit <= 0.05 mIU/L 2.85 uIU/mL 0.36-3.74 [facility] ([facility] ) ID Date Data Source [id number] 01/28/2020 11:20:00 AM EST [facility] ([facility]) Name Value Range Interpretation Code Description Data Viki rce(s) Supporting Document(s) Cholesterol [Mass/volume] in Serum or Plasma 167 mg/dL 131-200 [facility] ([facility]) Cholesterol in LDL [Mass/volume] in Serum or Plasma by calcu lation 82 CALC 50-159 [facility] ([facility]) Cholesterol in HDL [Mass/volume] in Serum or Plasma 59 mg/dL 35-60 [facility] ([facility]) Triglyceride [Mass/volume] in Serum or Plasma 129 mg/dL 30-150 [facility] ([facility]) ID Date Data Source [id number] 01/28/2020 11:20:00 AM EST [facility] ([facility]) Name Value Range Interpretation Code Description Data Viki rce(s) Supporting Document(s) Glucose [Mass/volume] in Serum or Plasma 90 mg/dL 74-99 [facility] ([facility]) 100-125 mg/dL PRE-DIABETES/FASTING >126 mg/dL DIABETES/FASTING Urea nitrogen [Mass/volume] in Serum or Plasma 10 mg/dL 7-18 [facility] ([facility]) Sodium [Moles/volume] in Serum or Plasma 140 meq/L 136-145 [facility] ([facility]) Creatinine 0.9 mg/dL 0.6-1.3 [facility] Chloride [Moles/volume] in Serum or Plasma 102 meq/L 98-107 [facility] ([facility]) Carbon dioxide, total [Moles/volume] in Serum or Plasma 31 meq/L 21 -32 [facility] ([facility]) Potassium [Moles/volume] in Serum or Plasma 4.0 meq/L 3.5-5.1 [facility] ([facility]) Calcium [Mass/volume] in Serum or Plasma 9.4 mg/dL 8.5-10.1 [facility] ([facility]) Total Bilirubin 0.5 mg/dL 0.2-1.0 [facility] ([facility]) Alkaline phosphatase isoenzyme [Units/volume] in Serum or Pl asma 107 mg/dL 46-116 [facility] ([facility]) Alanine aminotransferase [Enzymatic activity/volume] in Seru m or Plasma 22 U/L 12-78 [facility] ([facility]) Aspartate aminotransferase [Enzymatic activity/volume] in Serum or Plasma 17 U/L 15-37 [facility] ([facility] ) Albumin [Mass/volume] in Serum or Plasma 3.9 g/dL 3.4-5.0 [facility] ([facility]) A/G Ratio 1.26 CALC 1.00-1.90 [facility] Proteinase 3 Ab [Units/volume] in Serum 7.0 g/dL 6.4-8.2 [facility] ([facility]) Glomerular filtration rate/1.73 sq M pre dicted among non-blacks [Volume Rate/Area] in Serum or Plasma by Creatinine-based formula (MDRD) Laboratory test result [facility] Glomerular filtration rate/1.73 sq M pre dicted among blacks [Volume Rate/Area] in Serum or Plasma by Creatinine-based formula (MDRD) Laboratory test result [facility] <content>CHRONIC KIDNEY DISEASE STAGING PER NKF</content>
<content></content>
<content>STAGE I & II GFR >= 60 NORMAL TO MILDLY DECREASED</content>
<content>STAGE III GFR 30-59 MODERATELY DECREASED</content>
<content>STAGE IV GFR 15-29 SEVERELY DECREASED</content>
<content>STAGE V GFR <15 VERY LITTLE GFR LEFT</content>
<content>ESRD GFR <15 ON LADIES' HAT TRIMMER</content>
<content></content> ID Date Data Source [id number] 01/28/2020 11:20:00 AM EST [facility] ([facility]) Name Value Range Interpretation Code Description Data Viki rce(s) Supporting Document(s) Leukocytes [#/volume] in Blood by Automated count 7.7 x10*3/UL 4.1-10 .9 [facility] ([facility]) Hemoglobin [Mass/volume] in Blood 13.4 g/dL 12.0-18.0 [facility] ([facility]) Erythrocytes [#/volume] in Blood by Automated count 4.41 x10*6/UL 4.2 0-6.30 [facility] ([facility]) Hematocrit [Volume Fraction] of Blood by Automated count 39.5 % 3 7.0-51.0 [facility] ([facility]) MCV 89.6 fL 80.0-97.0 [facility] MCH 30.3 pg 26.0-32.0 [facility] Erythrocyte distribution width [Ratio] by Automated count 13.4 % 11.6-13.7 [facility] ([facility]) MCHC 33.8 g/dL 31.0-38.0 [facility] MPV 8.5 FL 7.8-11.0 [facility] Platelets [#/volume] in Blood by Automated count 313 x10*3/UL 140-440 [facility] ([facility]) Mid % 5.7 % 1.7-9.3 [facility] Neut % 72.1 % 37.0-92.0 [facility] [facility] Lymph % 22.2 % 10.0-58.5 [facility] [facility] Mid # 0.4 x10*3/UL 0.1-0.6 [facility] ([facility]) Neut # 5.6 x10*3/UL 2.0-7.8 [facility] ([facility]) Lymph # 1.7 x10*3/UL 0.6-4.1 [facility] ([facility]) ID Date Data Source [id number] 01/23/2020 01:33:19 PM EST [facility]PAT[facility] NT INFORMATIONPatient MRN Name Date of Age Gend*PT [id number] Lianne Tuttle 1955 64 years F OBSPT Location Admission Date/Time Visit ID Attending [id number] 01/21/20 0839 --- Audra Gomes MD([id number]) EPI ID CSN Admitting Provider [id number] Audra Gomes MD([id number])Physician Discharge Summary Lianne TuttleMRN: [id number] date: 01/21/2020Attending Physician: Audra Gomes MDAdmission Diagnosis: [...] within 12 hours or as directed by MDLipitor 40 MG tabletGeneric drug: atorvastatin LIPITOR 40 [...] dailySpiriva Respimat 1.25 MCG/ACT AersGeneric drug: Tiotropium [place]alt Monohydratesucralfate 1 g tabletCommonly known as: CARAFATE [...] were sent to [id number] [place], [place] [facility] [address] [facility] [address], [facility] [id number] bisoprolol 5 MG tablet clopidogrel 75 MG [...] rce(s) Supporting Document(s) ID Date Data Source [id number] 01/23/2020 08:04:21 AM EST [facility] Name Value Range Interpretation Code Description Data [facility] rce(s) Supporting Document(s) TROPONIN I 0.06 ng/mL (<0.05) H [facility] Less than 0.05: Myocardial injury unlike lyGreater than or equal to 0.05: Highly suggestive of myocardial injuryCorrelation with rise and/or fall ofserial troponins, clinical symptomsand ECG changes is necessary. ID Date Data Source [id number] 01/23/2020 08:04:21 AM EST [facility] Name Value Range Interpretation Code Description Data Viki rce(s) Supporting Document(s) SODIUM 140 mmol/L (136-145) [facility] POTASSIUM 3.9 mmol/L (3.6-5.2) [facility] CHLORIDE 109 mmol/L (100-108) H [facility] CO2 22 mmol/L (22-31) [facility] ANION GAP 9 mmol/L (7-16) [facility] UREA NITROGEN 13 mg/dL (7-24) [facility] CREATININE 0.75 mg/dL (0.60-1.00) [facility] BUN/CREAT RATIO 17.3 RATIO (10.0-20.0) [facility] GLUCOSE 73 mg/dL (70-99) [facility] CALCIUM 8.9 mg/dL (8.4-10.2) [facility] GFR >60 ml/min/1.73m2 (>59) [facility] GFR ( AMER) >60 ml/min/1.73m2 (>59) [facility] GFR INTERPRETATION [facility] --NORMAL KIDNEY FUNCTION OR MILD DISEASE - GFR >OR= 60CHRONIC KIDNEY DISEASE - GFR 15 - 59RENAL FAILURE - GFR <15 Est. GFR calculation based on the MDRDstudy equation, which assumes a steadystate for creatinine. Est. GFR should notbe used for medication dosing. ID Date Data Source [id number] 01/23/2020 07:25:09 AM EST [facility] Name Value Range Interpretation Code Description Data Ivki rce(s) Supporting Document(s) WBC 8.4 10*3/uL (4.1-11.0) [facility] RBC 4.06 10*6/uL (4.00-5.40) [facility] HGB 12.5 g/dL (12.0-16.0) [facility] HCT 37.6 % (36.0-47.0) [facility] PERFORMED AT [address] [place] [address] [place] [address] MCV 92.6 fL (80.0-95.0) [facility] MCH 30.8 pg (27.0-32.0) [facility] MCHC 33.2 g/dL (32.0-36.0) [facility] RDW 13.9 % (10.5-14.5) [facility] PLT 251 10*3/uL (150-450) [facility] MPV 8.6 fL (7.1-10.7) [facility] ID Date Data Source [id number] 01/22/2020 11:41:[address] [address] Name: Lianne TuttleB: 1955Sex: FOrdering Provider: CARLOS Mary Prov: CARLOS Sethi Provider: Procedure Performed: CT ANGIOGRAM CHESTExam Date: 01/22/2020 21:55MRN: [id number] Number: [id number] Class: INFORMATION: Exam: CT Angiography Chest With [...] rce(s) Supporting Document(s) ID Date Data Source [id number] 01/22/2020 11:07:30 PM EST [facility] Name Value Range Interpretation Code Description Data Viki rce(s) Supporting Document(s) CK 53 U/L (26-192) [facility] TOTAL CK <56, MASS MB NOT INDICATED. ID Date Data Source [id number] 01/22/2020 07:00:59 PM EST [facility] Name Value Range Interpretation Code Description Data Viki rce(s) Supporting Document(s) TROPONIN I 0.08 ng/mL (<0.05) H [facility] Less than 0.05: Myocardial injury unlike lyGreater than or equal to 0.05: Highly suggestive of myocardial injuryCorrelation with rise and/or fall ofserial troponins, clinical symptomsand ECG changes is necessary. ID Date Data Source [id number] 01/22/2020 05:39:38 PM EST [facility] Name Value Range Interpretation Code Description Data Viki rce(s) Supporting Document(s) D-DIMER,SENSITIVE 0.58 mg/L (<0.50) H [facility] ID Date Data Source [id number] 01/22/2020 04:34:23 PM EST [facility] [facility] Name Value Range Interpretation Code Description Data Viki rce(s) Supporting Document(s) CKMB 1.3 ng/mL (0.0-5.0) [facility] CKMB RELATIVE INDEX 2.2 {index_val} (0.0-4.0) [facility] ID Date Data Source [id number] 01/22/2020 04:22:12 PM EST [facility] [place] [facility] Name Value Range Interpretation Code Description Data Viki rce(s) Supporting Document(s) TROPONIN I 0.10 ng/mL (<0.05) H [facility] Y Less than 0.05: Myocardial injury unlike lyGreater than or equal to 0.05: Highly suggestive of myocardial injuryCorrelation with rise and/or fall ofserial troponins, clinical symptomsand ECG changes is necessary. ID Date Data Source [id number] 01/22/2020 04:22:12 PM EST [facility] Name Value Range Interpretation Code Description Data Viki rce(s) Supporting Document(s) CK 59 U/L (26-192) [facility] [place] [facility] ID Date Data Source [id number] 01/22/2020 12:48:55 PM EST [facility] Name Value Range Interpretation Code Description Data Viki rce(s) Supporting Document(s) EKG [facility] SUCVPw2qYeKPOhVjb4FeHqNjKIZvOO8wvrw4D4K9tVBvS8BlcMGdu9ilX2RhR2WoLJQcZWGBWS3IaSYo jb2 [file] QPsM6T7w6m0wMhGZGNaG0KkNZCJ/hmKVhePkj7xOHKgSegXjll63NcvGqd1be+ballet dancer+lvxEC7rhANO+2L [file] [id number]+L+eBI9f9ix323EgRBo6p1o rfrD1a5Lh7Tm7P4vuyPDAxN2oTNhidRxbLI4+Of7rg42C40yivTZ/3iOb+MHLz4sz90u1/pLk/WPTT3g hugBQ2Zkut+4MlH+3N/sPLy0L673C/8IZBb/ysab/K+iN7Tldoc7CAmxEiPrQD3EJiuUyHOA9N9tICwE i5lS56w/b3oM7+KyOHO4wPtPZ7S9/l/174KumNrzTx NoTg1PjMl7Wzlx9E1sG/UNN+dcOg9/rqMu4hgA2UBn373TdVEw+v4v9V/L+G/7rtU2vxc5FYsvMna/8q 2bi44kcgRp42e/vI3w6iby+KbpBjoPuHcOs/3Bj2UGoT+gU5G/T+3lfH+I28nYsTXhD5zMzSlrr636mu 6PNDuOeBxFclB+44M41iweKPOP+Ea8s0d91hg6Tld9 D3+60PbAp7yw8+4KgGzg6cnYW/J7vfpx9pnW1Bsvn8y0/9aw0DWkSljm0jzbM0cFY0uR9rpmy2k//tO5 j/nP5/9NPeDK/y8UFE0o4YI/vWx7KEjPOuyfFj+c6BnEP/Y3ubNi4Z/xzXme3909mVq+C/zsmc8/725f d3k2ekPBTo/GvvC4O+QD/gsxlz6BGgy7hQdNae5i/Z xq4U5KYT9E1BOGlvr000EqZJI9O+57wgd0lZkkTyuSX178XUdvJ2Z164wqX+MxiPLqgMycO9jZ6fQJhg /nbO9Fd/K0z7zy96B/pr7joH+mvusq/KV3h7fCG5cyaulZARXd4nB9r2o1aoQB/DSkI0kV+mv7v2w9c5 IGdDfs/SqhuovTG2SR/drrJfZVhafuKrrNuYoE/Q+z mIyC2trXK1Y+9AyRL2U4m38d4pEBlGd6cKnbQ/W43xwwg3KapiextW3G2ayihCwf7unALx/JUlvso+U+ evUo52/qSLHcaotZup5jrQB6OMgVqix277np7X63a+OSfzaxydg/lFn233/Qc8a1Htg/qk8LwkeU6s+Y Wjo7A3ubQoJ/l/S4Jk1V841JcJ/5yPF1txqj/nnMP4 Z+L/uL17C6kj5t787/ZyDuL/hKy4Dw9MM+m9/7yuclsD7tbMJs0l2c/7pr2/BQf78tXrUItFrL2F340p sj849VYeBF6FfmlErZm28QydmPVMg8J/WJnw5wpo3+4/ia+ybob+WGfrGM3j3nz/ZmivTciZXR/D+DX0 Z+DtD5S04UTU5nLX1hMxJRIxOeD+qrIwXyW+Srq3vd 2891PMGz+bY/y6IL10/R3/r+P/dfy/fhTgcKuewc43Sk2z7/0jc/y/jfaZQK7atyt6Do9WEY/MV4H/Nz JaNv4fIzDm3Negat41jfTv/1ATyWapg2A4eY5JTtoUbv+s1FN2fQ/TflXpF+Mp4Lwa31T/Xh/oo/Ww+n uKShfwggS67reiuS9SZHa/mP1/PyvL9Pko3Dxni8Gz dKy/cT8I3kzEwQRtO/H4w4GtaMhVX/PVHqCnfSPT9/qz918nupa1X99W8If+Ybk/GMGS9x92gshz2kgr rH+mv4p4qRZ95/fgOQ5//8hY9euln/jX/dm/D/Darek/Cvvxf86/Hria+KPj+EQe/iAJ74dlMZE4fmDar1 s3+O9L0/0Wzxhav6Uqq98aid79b/Xp741MC/B330fO WOy0Ckk+crH/8872HM1/nZR3//+uQQXqV18Nj/1Efvh/pAewfam/iq6rlQ/4X0+30/uzDeTNt7Xix4B/ RvQ0cUsNSVCj6f8ykY27+ZfhxmozZ4uV977IT9An6tfYH1qdEmN2g5xMyTS+5ImgWO3seRyFZmBNlecd zvUJ/zQ/h9z/sXezsbHk36/x69mh01CiUHvoIuY/rz GRiyIhxp07ho9hEAcRJtFk1ZzpBiRq1DLP2URzbWgi7KDD0XW2807Vm/96RGSs0qbotdz3l6eN/e8PtO d92g9/e+2/tyCE2a77O9o25hRM7uLz0qnp1i7bl96azdp7qL5D0bumyV7bn7Ed6MY1Iqqt9Vpvk42Wha zb+cb6L62iGev/y/Az5Nrx7GX+vBJ+Uydc1kbdmT4T 13Tviy83x1eC/ktiz4onZ00m1Kur8bq0T/8Z7UavXKx6Cqp+/tdljGHmz8fkbZob5xNXLWH0Y+WodPe7 MOab/hHnyG8L824qc/fuxXL/bclbnju81M/+i0nh469UhohiD37rcsZlowA21qwyytE9J6K93ieqt+de m/2y8ZOLHyjp2WcdSGeHfnA2ppy7Vape+84fKd8k2Y n8d+PDn67igNUiz6Gjw3JEjlf274G3m7lPe28pt146iv634utHwwT33YA9MFzET0655o6T5FT4UK5+9u +7Pvxs++DqrS5rB+7gX5C/TNgpF8jhUux6ia19J03o1jX94fJDTrd8Ovx1yDQ+ON+VykF6cvpRKIZZQp kL7bG5+JIfhgMAyu5GZ1kwr7ucbaVXf9j6kLy5eLQl Q9NZiujC+3vsTo+VoRhxfXeNckvRSm9hR4DhMx2p6r+v+N/5+jL8ahgPKCa4+ACulKUgakhez8f9/OPo RUWSvn3+S9YHge46AFWczcWIJ24tzxu4N+0Rnt8pK6lU7D92/y1mSgtD34kP6B90LbgO57di/5ynNtXP kqdTJ+5au0t/ErX6V+tq125cPVioVf/NXnVPrqc+75 f0665xYrg2/CCyn31fw+zR5FcoMcr00dt+Pa5yNP+GoVzBozo96+D/ps+dln6+r0jj1WN0+/nveD+V5m f78O+tciTrjxB14k0xD794MHicF6c9JJ+homoR8LE8hKZ8ii1PwPo/nZlyBfka/Ib/dF88L5OY/KV5W2 7mume4Dkc4W7TbtDW2IkS7/10nhuIB/7lWG/sr4/cm k6w93sNkmG7/D92kR+opue17NilG+vq7j20x9d/capOd0UP2c+1k4ywWgyZsyv8zqD3wzo6tGN9z4/+u 7zke/+H/rKzl7QG+7OCrsZyiExfHme3fvuL/r87Jjy3T8T9lLr3uCDf7S2Xl7QE/dzcT/ojvXseL+O9Z a6x3on7Pmgmx0gB8e38bsuoK//Kenneth/9O0232sB/sr9 IL/f5a78Fw82u+8H+/Sail Repairer/aRDf+Dnt0rac09dQhV6/shP22/4WSjf+is/hvyN/L4/3dYWf7T/zH47yklz [file] ggMDAwMDAgbiAKMDAwMDAwMDQwOSAwMDAwMCBuIAow OVErEVSyRSUaIEJtXLHrYR2uKrHjERJeBJJ3MFBoQTXzHGQxxqRPTSDxJDFzEMx8OXEgCLDtIAXnABiq JQHhVPBkCRL4AOPxCKEdEF6eYiAoRVLeVGZ0VhKuAZYfSMLsbnEXJUHcLBTlGZS8DgUnKENtWGEeCTmw SXVfEZItLWduHGGuRAFjMY7uZhVqZLNxTBAeLGlmFE SdWCBdujSUKGHrNWFbRVCrUjBtMRXhVNSjARkoENViBSw8WHWpBSOeANThFP5bIePwUJRrULW2RBanCJ KdFJIzsvXPFAXiZIMpMQodZHUyYXKaGCKcSEewKGUcEFBtAUT8NWQuPVEaIE7gUxXpFLJlIIFyWZTyLz F5OmRaAzZLvFOiuRbdjph2DCwlV5t9GZCjKFdqRB2b cdNuECQwOifvXf0zoAJ8OTUoJrzKJq9Qv9DcydB7fbDbBrb5PZKsLaKlNN5U ID Date Data Source [id number] 01/22/2020 07:27:18 AM EST [facility] Name Value Range Interpretation Code Description Data Viki rce(s) Supporting Document(s) EKG [facility] SCGOAk0tSiHPGdTvt9JkDjHiIOEuBK7occy9L1O7kDRpJ1LcoJQjt8jvB2FeW6CsFCUjCOGJRN3KhSUw jb2 [file] 6f30erQe/vp training/y3Y07tC95064Z//c3zzi52J+9+1o2Tns95m/bnbGm+vrZMP4p2vjHGD41+2DmQiT1BGg [file] ZiAKMDAwMDAwMDAxNiAwMDAwMCBuIAowMDAwMDAwMD a7RMNuLURtWC4dSgXnDJVaQRXwTIEzSDWbUZYsddYUYPMaEVKwNFN8MABtYKBhPZQnKWroQJOcBTZhKB D3JOWgGGLnCW8qFjCrDNBzUVZ4EhDxGPItZAAtbgIQDXTbUCVaLUF4AFElIDWzCIPcUVruYXOnFGWlQf Z4CCJrHVEyQS6uXvEsTYZxRLM8MBEqLXPuLSWsemOW JVSvOGMaJVn3BaMkRVHxXVFuIJenLAPjNALoQYrhSOHkXNUnSW5bZgSzUXXvYDBeDFUwGNPrXKYoohGA EXHoKTVhRQT9KrQbGGHtHHIjFBmnXCDbZHUlNXX0NERbSXNlRG6uQzNuTKQoJSM5NfJlOFZfENCrrnAT BZNhBEExMXXxDYFjPXIeFFKkRGquCEUrTEYdOeN8EC AuCZIcHI9jTeHiUQSmSIU3QTDbQAStDQVpbbLQJKBqTBFjYZGuZBP6RPRzPUFgRTz3bbKyhMCkDxh6Wo 3XmMkgTBN6Wh9HemBhQHOuGURZJu4Ah894FYRvVMLVUsq+IxzprEUnyVneHWUFLSM1HcTYZDOSV2R= ID Date Data Source [id number] 01/22/2020 07:49:53 AM EST [facility] [place] [facility] Name Value Range Interpretation Code Description Data Viki rce(s) Supporting Document(s) SODIUM 141 mmol/L (136-145) [facility] [place] [facility] POTASSIUM 3.9 mmol/L (3.6-5.2) [facility] [place] [facility] CHLORIDE 110 mmol/L (100-108) H [facility] [place] [facility] CO2 25 mmol/L (22-31) [facility] ANION GAP 6 mmol/L (7-16) L [facility] [place] [facility] UREA NITROGEN 12 mg/dL (7-24) [facility] [place] [facility] CREATININE 0.72 mg/dL (0.60-1.00) [facility] [place] [facility] BUN/CREAT RATIO 16.7 RATIO (10.0-20.0) [facility] GLUCOSE 83 mg/dL (70-99) [facility] [place] [facility] CALCIUM 8.3 mg/dL (8.4-10.2) L [facility] [place] [facility] GFR >60 ml/min/1.73m2 (>59) [facility] GFR ( AMER) >60 ml/min/1.73m2 (>59) [facility] GFR INTERPRETATION [facility] --NORMAL KIDNEY FUNCTION OR MILD DISEASE - GFR >OR= 60CHRONIC KIDNEY DISEASE - GFR 15 - 59RENAL FAILURE - GFR <15 Est. GFR calculation based on the MDRDstudy equation, which assumes a steadystate for creatinine. Est. GFR should notbe used for medication dosing. ID Date Data Source [id number] 01/21/2020 02:12:20 PM EST [facility] Name Value Range Interpretation Code Description Data Viki rce(s) Supporting Document(s) EKG [facility] UGAEWn8fEnHJTgOvq1NoBbIcCSHnJG5bsay1M0X9bCYgM1HxcWTej8lpX4WdA5ZrWVCyLTAJIE3HwWAv jb2 [file] NwolJUVPRg== ID Date Data Source [id number] 01/21/2020 12:51:43 PM EST [facility] Name Value Range Interpretation Code Description Data Viki rce(s) Supporting Document(s) &PDF [facility] IZVLIo7vYuREXwCe39/EVBbnVYRvq1KaYSscJFu9YBqdKKYpA3RxqNfbNEdWMLuYHIbCQaLBEOQyQWVf FcG [file] GGn978e40hOB+cF/toAhOb9CJJSrSeuGh/qCTuH7+HGh+eMFLcWMQbEbjtpuTtoqe5H9sB+facility practice specialist+ZCX3g9 [file] rsS+VZXJLTh4nMPq3AOCs4kbhvNQd0/172qi5zwQHC4zhK6813pIls1g+medicare contact specialist+bUO+8R4k96W3PaS2sP9 [file] /dialysis patient care technician/Gae61hp1s0sZmKYFnL4CzX+FgBxoosijbze8djXaypfJHsgxjfTcYcCA2c95tYn/MAKAieMvDjx [file] ICAgICAgICAgICAgICAgICAgICAgICAgICAgICAgIC AgICAgICAgICAgICAgICAgICAgICAgICAgICAgICAgICAgICAgICAgICAgICAgICAgICANCiAgICAgIC AgICAgICAgICAgICAgICAgICAgICAgICAgICAgICAgICAgICAgICAgICAgICAgICAgICAgICAgICAgIC AgICAgICAgICAgICAgICAgICAgICAgICAgICAgICAg ICANCiAgICAgICAgICAgICAgICAgICAgICAgICAgICAgICAgICAgICAgICAgICAgICAgICAgICAgICAg ICAgICAgICAgICAgICAgICAgICAgICAgICAgICAgICAgICAgICAgICAgICANCiAgICAgICAgICAgICAg ICAgICAgICAgICAgICAgICAgICAgICAgICAgICAgIC AgICAgICAgICAgICAgICAgICAgICAgICAgICAgICAgICAgICAgICAgICAgICAgICAgICAgICANCiAgIC AgICAgICAgICAgICAgICAgICAgICAgICAgICAgICAgICAgICAgICAgICAgICAgICAgICAgICAgICAgIC AgICAgICAgICAgICAgICAgICAgICAgICAgICAgICAg ICAgICANCiAgICAgICAgICAgICAgICAgICAgICAgICAgICAgICAgICAgICAgICAgICAgICAgICAgICAg ICAgICAgICAgICAgICAgICAgICAgICAgICAgICAgICAgICAgICAgICAgICAgICANCiAgICAgICAgICAg ICAgICAgICAgICAgICAgICAgICAgICAgICAgICAgIC AgICAgICAgICAgICAgICAgICAgICAgICAgICAgICAgICAgICAgICAgICAgICAgICAgICAgICAgICANCi AgICAgICAgICAgICAgICAgICAgICAgICAgICAgICAgICAgICAgICAgICAgICAgICAgICAgICAgICAgIC AgICAgICAgICAgICAgICAgICAgICAgICAgICAgICAg ICAgICAgICANCiAgICAgICAgICAgICAgICAgICAgICAgICAgICAgICAgICAgICAgICAgICAgICAgICAg ICAgICAgICAgICAgICAgICAgICAgICAgICAgICAgICAgICAgICAgICAgICAgICAgICANCiAgICAgICAg ICAgICAgICAgICAgICAgICAgICAgICAgICAgICAgIC AgICAgICAgICAgICAgICAgICAgICAgICAgICAgICAgICAgICAgICAgICAgICAgICAgICAgICAgICAgIC ANCjw/fCRbL2hkdEMnzsT7N7moEh5SHu0ROH7jw3QoSQUiGNfhcwEbFkgQVsKxIDAvRsiJYgc3HYuuXM 3LnTNlS4HzT7GxIGkbWQ2UHVDhNLJncQOpEFElNOUu SbG3XTGkHVnjAH2EkQJoLMlfBNHzNLBnTuJwRPBfGUEqEYYbREVbEGNFZJXhCCIhPrUjITGxOCXsOPqj GENYLX7NJsQsP2VqwH50TLuZEo6+BGiplxBaPetVQpH2WKLpk8OsZFc9UH3SVGHqIphlf0LsRjImBNEK ULnqJS6FFTS7MUL8KSYaTk7AGMAvD894zzQrOW1TSm 4RKbEnSX1obv5GEaTfRNNeXnhFPaa9LGucMT2ZyLIbUPhKnQCnUV48kkiFLwIcQ3Tmp8XwEpS2PXPuSs VoVSulYVJbDmF2HU92iCyeOI2MXZJbOFRvMY97GUM6FRRoUn5AOm3OSzQmBM8del3IXkJlNJTmOhvRSz n8OSdfJT1AuKGeU2VqtKPya5uURzSzY6ERCOLiTCYt Jp9JTKAtCcWcRQMjXLmmAF6tPNVxTUOKeLzbedY0WO6PUC8pjjLtZC4ITgFgFt1sVj5MSaWcM7FuO3Kf JVDkRTMTOBdyMO0TKZbtPI9dAK1Ei7IWzCEikH8dpu4AJWGvETYxXebsti8BHkklQ6N0hHayZBAvRmYu QZYZAQaeCR3GFVOoONS3IVPdNtTsMYHEVpJrJ04qVD 3BF2Qfz74fUjS3JRRvBmAiGIpeVT80qDzdrbTesQQbbOjzXW6BSy2+DQplbmRvYmoNCnhyZWYNCjAgMz lOAbAgTYKhQEMlNCSgOlC7DjVmWn4HBBYlRHXuFCAaLySjCNReHRGsULofYEFsBFpdBcV5WBYqOZUbIX 5RTiYqWTDaQOYmKYcuPEMxKBRcro1PHDLjBNTlMGJ5 FQPxJHAaJVXhGRwvKASiWQDvCmRlJRVgBNRuMI3TWtStYRHmVCF7NkQtHXPiTFTpsm3UYVXjCYHqIQFz RRNkRLJoTTAmZUebYDFbCZU9SSCzDUUcCRTsSP6HWqLkQTTmBDV1SOOiTIUjBDIxkb2QEIDmXOQiMaXg DOGcSHJvKMJyLXkrUNPpMZR7Set8MGUiIBUiWR7EFs XgDESvZKb8AXTbHFPyOYIiwc7JLKMeMCFuTEZ9SXOxJBTxYDQaFUzjHSAxSAUsEkG4DDKoDZQxTB0TSb JvGTUmENV0XtLjSJLkWXMqna5SXHCcNHZxEOmhUWDyBLMfPGGcUJegOGMmCQQnRQO1CYMsNEBrUF9YIl UqCMJeSQBhDxXjMIRgEBTuol3MLADwIGUpLDRlFYUu HBLxBWWbYWttZDMeAXE3TGCvQDLvXMOzPH6EOcWcDRVmPFH1ZKAqVYCgDGCxjr3OAMHwNXBxSNP4JjSk HMNxIQBdAQttWNSjRQP3LBB2HCKiTWXiXH5NUcDzFVYaZDXrMHHgYJOlFZVzbe7PJWKaWMFsRGk7ZmEf ZOIaLXElLSpfFMMiKHHiNlT2IROvMVVbDU4YYvIeIL WrAmF0RoPzZQFpNWKrfx6FPWXhLCV5ImV5IfAtNTJjZNUqIXdjLYNkCXYpIGJeYTGxCARhFF9MTzAsOL AbUcJzANxxISOdKRLxid4KUXIeGTA9NaBaTaUeQLQoGTUsOCftWPKyLZstXvW8INNzPTEfCH1QYhHoFV YkZGD5OXknMVVbVHQogy6NMITpPIB2PSFmUMBqZBRu TVXtDBhpRGJdVWt9Wnx6ZHChNGNyHC6ILaGdWYNxHLE1HYVaILZmSOTfio4LxLAjjMwdyq6KYUlWLi6D tGlmQDR1GEwcUz9tmIPsFrWhZFMOCj9YlbVgTSLwEIHLCCagNXSeSUfiZ6QeIfEfQ7JjMPh6NoLuLFCg TaOlAxGqEVF2MpZeFoH2EZZeQZHoGBT7SkHjRFqrRM MwYjNmYWNjMzAwZDliNGE+OG6pLVl+Zs0Om2EtsiF5snLsMDk2UGkbDG6EDJXEY8ZUWr== ID Date Data Source [id number] 01/21/2020 09:20:05 AM EST [facility] Name Value Range Interpretation Code Description Data Viki rce(s) Supporting Document(s) EKG [facility] XKLGPa4pLtDKYiKgb7CcUbQoBLJbRD4atsc3M2A0qMZwJ2UzoXSlo6egQ0RzR4VeGBCsUPGCYA4HiGPu jb2 [file] JosPYl/VJ+t/tE3Gj9oI68pAXkRE9gTKR1ez3t4B7h/parts casting machine operator/1FrRx3SR+gSnOQhDYewqnGwkxjr4uS+18 [file] 97TxRf9mu6eyzD/2Ec50y0zsLNzP3cJ651XI9I6vp0 Kvwrpvo+3kjLaTM/O2H8083/rAM49TorAkqiaY7pr20eiSJ+NqYzzvfo/vtBTZXLN0FC/IBnlBdsgBGX pAcrFk62ZhH6uWbyLmeY7zLMWb0GcLtsLlFeY/XnoiBDDDrDkwZ1YU1wmtiad3qmVaQQpRUG7vkP/Br2 oL30Lw3QuOeEIWC0P2Konqc11dOn4EziQ/BxelAM2k G51qoOhPlC/gVwZ+MnEXYm3p8Rau/J0D9yyNBvuz+0wpQuK5CgSRRppvnf3LDmEiga99OC3o/5Ulvzrz piW/ftjf9BjK49aA5a9+Gre6TdnMsc64E+G9T3645poUW0mlK+WCeFX2wFihR2Us3ZvhrsIgcqhkNazw Sd7KE4JEvilt1U+maPJgIgEMz01qyUJ9ZkVb+121v5 fztPR109hc6UG0qBw1Wfd0c1257kx3j5pgz70kd91l3xMOO+Bzj015Q71Xi84T2Efj6DlShcYz/SU9/6 5jr/Cx68CQwM0V5l+85V8xJP2j+K+E7n7kt7abZjn5xtEhFuKfevUl44JEd1dyeYa13Nbl5ShRw1Lwsq xe7EzENys04a4q+YXKaHxCcpJqRdcWqu5PNoCdG+Se rkz04Xp89byzl/4u832iw1g9e8+6K6lfw71ffw4lOhbqs7p88Dhtr221LPbnFP/X1/4xsTi7Lp+9Sh61 bs1NFeCIX0CP0Zsked/OsTAr+nZUB0esQyNN/wb8ahW/Otcp/4D1bmFiMQmsl/Xd227VobfP3e6vdqs0 nuclear plant instrument technician/xr0SpmSs+WI4RGV8cBj0T6xb3tpBsw/g+YJfrc B7tB/UYjfyZ6hPN+SBu6F9h9jf3ZsC/5XDf+ChVgg6Xa0+5U/k9lk6mi3ytY40VEx4cds4ekw7rWYyWx /3U335Tfk+oGN/9YYqZEqGuc9d/UvVypb3xkGvIURMwHvhP5RY+/b0qM4Fw+HtOglosvFgNhoUl3878W CSGozmplGjPlnMf110+IJGKps6awV/5oGfT89RKbGT /NbWlbj1ve58X61h7x+H15tv2H5DzzbjiKF/tc760uNHIbHw4VJ3Rpl2d/3tvtpO+up1qK/pxn4cf8iz 9a87+tlxv95+RDweB06SOTGg+OAGJse2hKRpCqmJi118+ZXCGkl4fXEhUsiBq518/Audie/5XDf+INx616 [file] dsOH+y+3n/578/NTb5bTHRlhFV7jZR+O3tp+3V0Pf/nxxd1Eu/1J6karehgA4hVLvu/un/+6f4/2+wells tA1Jy66Q16MQJO9L+zq8MSUP4s/DYUJV5XjGOa1J1nkcvsRK++Kym7qvi4/+d78fqDS7E9pePLYr1LV3 +ZaaOJMpismWw7j7Kv/l3BIOhyg5l/edpa1p8h4q4D Haty6Rj7tqo1r2/aekS/043f1wJ//rYGODxlM2g30/7/sP7+c/swbmit1kx4BckY/nL/O6+eMYXRZjT4 il6sCh0g+2pnqFzr8DE5TAlYq6bz9Bkm2zM7kxw3y/EwVCnkx0Lb3xuz4nrPoUhA8LOLHmDHO9jQih05 1BUYRTiIceD5/u/wFpH+e3MpAlUED0rtWtsIhcblUw VtjWXMhuCHGqPut8LA6AgVLzCXUmU0X9DQOjuv7gJJPlZJIhcLFcVcFdXNDKUX5RyOGxPT2NLJm2GBEp UHAkLwHbVUVglhT9RVChRDBhAWIaL4DfukSigAUeXLBsTc8+PS7ae8KrMeOaUHWtBfl1XP7ThFPyZU2M mBVquP3rptVzP237hjGfJLJgZvccf5FnVHphSGUMOF 2ASQR3IYV8MGQzUr9+QT6oo3LpUcJkWFQaZvy6DO9KmHZtk9ZbZK0DR7UqXJEeQXZQFVH0p5UfJMLqdx ptnmepJ9GlLYF3sE9xDBZ4IWCcTUetICKaOIZfSjC7XtCaYVfjFBMcHJFlVNXxLXCaKHh1mIKmXI9UD0 KbAKSmSEHRPSFdyoXkYt1yTXsPGHmNLLPXEY0GITMl RVLyCENzLGXsQP7JpXPwNCI0GApUKPTLGZuWCKbgKzDnm9G9HHItU5HzEMTwrbYkSMSGTZhqOkieIL3l iEkrdtgqR0UjrVLsUMFIYYIoPOMdQKGrDNApB7Tcw2P6P2PiAOiIVIHYCKeMEImzFtF6j20ineYLKEFp ZXMpID4+NL6hh8UxYl9FUKYmMN8nckh8FL2TaFHaXR 0RJPlstoNoG2mufyQoHlNpUGTXYU8jB5PbxO77NBD+AzEyYQ3ryxs2ogTgSnLlCRAcSHFzENXkYMacSF YjGKCjPUBnYUZ7GQR6FXXnWcFzYBDtETDtThphAHYeJNSfbvXPAWVhRKV7GGdaXAIsAXDiNLTuGLxwYC LmROJnQrunDVBmGHXpFO8jUmNbOFRdXCFeYWGcUeV1 GcYiBpIFKXRbIQJfUIFzCmLiXXDpVMSyFYijTYCsMVWqZZb2TEVbKVEfFI9oQdBrKIJbMBCtVVZbUFIy IXYhejNCSXRbKOKrXYW6PEYaISJfQLKoQPblZDRmNLKhNVS8HVCnCNNtTS9gEePnJUCtZXA6WfOgANDj VVWqswOFASNnHRXtBFS6MRMkPJVqFYFpAVbcKFQrTH XfEeQ4BZRhGXNlBV1uWzLyEPZiTLH2HGOwFPXkKVGrqeOXKGQeNSMaNUu3PrCjNPGbKKAoOYepFUAbJF JxKIorJUNhFOFiII6yBhXkLASsEMVgSWKgIBNyTLWdceAATHTwJUEbWTO6UqXxXPDkBMXoWPudNLTjKJ PbJTJ2CCDtCPIvUL9cKfJtPRRaKKJ9PFZcBPOlSBHh uaOBPLNeUQTdKUGuOMRcSBOsQTZmITthSPEnIKVoGvY9RKSwMFYjDB0kBvTxGAWeYND8KOUrMGTqMYFy yvAMTSUxCMVpEXFvHYS4CAPuYXFgRBc9fpDvhDYnMrr7Sb0QhCjnMTP1Vg7GhaQfYUIbNXDPNg8Ax816 IDUgMCBSCgo+PofebISxkExiOFZDDFWzCUBKRPWMQ0T= ID Date Data Source [id number] 01/16/2020 12:00:00 AM EST [facility] Name Value Range Interpretation Code Description Data Viki rce(s) Supporting Document(s) SARS coronavirus 2 RNA [Presence] in Res piratory specimen by BRO with probe detection [facility] This lab was ordered by [facility] and reported by [facility] [employer]. ID Date Data Source [id number] 12/29/2019 03:20:00 PM EST [facility] ([facility]) Name Value Range Interpretation Code Description Data Viki rce(s) Supporting Document(s) Laboratory test finding (navigational concept) 0.01 ng/mL 0.00-0.08 [facility] ([facility]) ID Date Data Source [id number] 12/29/2019 12:36:00 PM EST [facility] ([facility]) Name Value Range Interpretation Code Description Data Viki rce(s) Supporting Document(s) Lipoprotein lipase [Enzymatic activity/volume] in Serum or Plasm a 77 U/L 73-393 [facility] ([facility]) Natriuretic peptide.B prohormone N-Terminal [Mass/volu me] in Serum or Plasma 176 pg/mL [facility] ([facility] ) Thyrotropin [Units/volume] in Serum or Plasma by Detec tion limit <= 0.05 mIU/L 1.020 uIU/ML 0.358-3.740 [facility] ([facility] ) Thyroxine (T4) free [Mass/volume] in Serum or Plasma 2.69 ng/dL 0.76- 1.46 [facility] ([facility]) ID Date Data Source [id number] 12/29/2019 12:36:00 PM EST [facility] ([facility]) Name Value Range Interpretation Code Description Data Viki rce(s) Supporting Document(s) Glucose, Fasting 80 mg/dL 70-100 [facility] ([facility]) Blood Urea Nitrogen 10 mg/dL 7-18 [facility] ([facility]) Creatinine For GFR 0.84 mg/dL 0.55-1.30 [facility] ([facility]) Sodium Level 137 meq/L 136-145 [facility] ([facility]) Glomerular Filtration Rate Laboratory test result [facility] [facility] <content>Units are mL/min/1.73 m2</content>
<content></content>
<content>Chronic Kidney Disease Staging per NKF:</content>
<content></content>
<content>Stage I & II GFR >=60 Normal to Mildly Decreased</content>
<content>Stage III GFR 30- 59 Moderately Decreased</content>
<content>Stage IV GFR 15-29 Severely Decreased</content>
<content>Stage V GFR <15 Very Little GFR Left</content>
<content>ESRD GFR <15 on [employer]</content>
<content></content> Potassium Serum 4.3 meq/L 3.5-5.1 [facility] ([facility]) Carbon Dioxide Level 24 meq/L 21-32 [facility] Chloride Level 105 meq/L 98-107 [facility] ([facility]) Calcium Level 9.0 mg/dL 8.8-10.2 [facility] ([facility]) Anion Gap 8 meq/L 8-16 [facility] ([facility]) ID Date Data Source [id number] 12/29/2019 12:36:00 PM EST [facility] ([facility]) Name Value Range Interpretation Code Description Data Viki rce(s) Supporting Document(s) Ast/Sgot 16 U/L 7-37 [facility] ([place] [facility]) Bilirubin,Total 0.6 mg/dL 0.2-1.0 [facility] ([facility]) Alt/SGPT 17 U/L 12-78 [facility] ([place] [facility]) Alkaline Phosphatase 114 U/L 45-117 [facility] ([facility]) Bilirubin,Direct 0.1 mg/dL 0.0-0.2 [facility] ([facility]) Albumin/Globulin Ratio 1.1 1.2-2.2 [facility] ([facility]) Total Protein 6.8 GM/DL 6.4-8.2 [facility] ([facility]) Albumin 3.5 GM/DL 3.2-5.2 [facility] [facility] ID Date Data Source [id number] 12/29/2019 12:36:00 PM EST [facility] ([facility]) Name Value Range Interpretation Code Description Data Viki rce(s) Supporting Document(s) White Blood Count 9.6 10 4.0-10.0 [facility] ([facility]) Red Blood Count 4.43 10 4.00-5.40 [facility] ([facility]) Hemoglobin 13.4 g/dL 12.0-15.5 [facility] ([place] [facility]) Hematocrit 41.5 % 36.0-47.0 [facility] ([facility]) Mean Corpuscular Hemoglobin 30.2 pg 27.0-33.0 [facility] ([facility]) Mean Corpuscular Volume 93.7 fl 80.0-96.0 [facility] ([facility]) Red Cell Distribution Width 13.5 % 11.5-14.5 [facility] ([facility]) Mean Corpuscular HGB Conc 32.3 g/dL 32.0-36.5 [facility] ([facility]) Platelet Count, Automated 288 10 150-450 [facility] ([facility]) Neutrophils % 67.5 % 36.0-66.0 [facility] ([facility]) Lymph % 23.3 % 24.0-44.0 [facility] [facility]) Childress % 7.7 % 0.0-5.0 [facility] [facility]) Eos % 0.6 % 0.0-3.0 [facility] [facility]) Immature Granulocyte % 0.3 % 0-3.0 [facility] ([facility]) Baso % 0.6 % 0.0-1.0 [facility] [facility]) Nucleated Red Blood Cell % 0.0 % 0-0 [facility] ([facility] [facility]) Neutrophils # 6.5 10 1.5-8.5 [facility] ([facility]) Childress # 0.7 10 0.0-0.8 [facility] [facility] Lymph # 2.2 10 1.5-5.0 [facility] [facility]) Eos # 0.1 10 0.0-0.5 [facility] ([place] [facility]) Baso # 0.1 10 0.0-0.2 [facility] ([place] [facility]) ID Date Data Source [id number] 12/29/2019 12:36:00 PM EST [facility] ([facility]) Name Value Range Interpretation Code Description Data Viki rce(s) Supporting Document(s) Laboratory test finding (navigational concept) 0.00 ng/mL 0.00-0.08 [facility] ([facility] [facility]) ID Date Data Source [id number] 12/22/2019 12:00:00 AM EST [facility] Patient Name: CASSANDRA TUTTLE [facility] Date of : 1955[place] [address] Date of Exam: 12/22/2019#: Fax: [phone] EXAM: CT CERVICAL SPINE WITHOUT CONTRASTCLINICAL INFORMATION: Neck pain. Numbness in both hands. History ofsurgery 1996.Comparison study 03/31/2019.CT FINDINGS:The patient is status post ventral diskectomy and fusion plating across theC5-6 disc level as before. Vertebral body heights are preserved.Alignment is normal. There is mild degenerative narrowing of the C4-5 [id number] degenerative narrowing of the C6-7 disc spaces. [...] No new disc protrusion seen.Accredited by the [employer] in [place].BRADLEY Campos/Mustapha you [...] [facility] ([facility] ) Smoking 11/04/2020 12:00:00 AM EDT Never Smoker completed Never S moker eCW1 ([facility]) Smoking 11/04/2020 12:00:00 AM EDT Never Smoker completed Never S moker eCW1 ([facility]) Smoking 09/30/2020 12:00:00 AM EDT Never Smoker completed Never S moker eCW1 ([facility]) Smoking 09/30/2020 12:00:00 AM EDT Never Smoker completed Never S moker eCW1 ([facility]) Smoking 09/30/2020 12:00:00 AM EDT Never Smoker completed Never S moker eCW1 ([facility]) Smoking 08/16/2020 12:00:00 AM EDT Never Smoker completed Never S moker eCW1 ([facility]) Smoking 07/15/2020 12:00:00 AM EDT Never Smoker completed Never S moker eCW1 ([facility]) Smoking 07/14/2020 12:00:00 AM EDT Never Smoker completed Never S moker eCW1 ([facility]) Smoking 07/01/2020 12:00:00 AM EDT Never Smoker completed Never S moker eCW1 ([facility]) Alcohol intake 06/29/2020 12:00:00 AM EDT Ex-drinker (finding) comp leted Ex- drinker (finding) [facility] Alcohol intake 06/22/2020 12:00:00 AM EDT Ex-drinker (finding) comp leted Ex- drinker (finding) [facility] Smoking 06/17/2020 12:00:00 AM EDT Never Smoker completed Never S moker eCW1 ([facility]) Smoking 06/17/2020 12:00:00 AM EDT Never Smoker completed Never S moker eCW1 ([facility]) Smoking 04/27/2020 09:54:39 AM EST Never smoked tobacco (findi ng) completed Never smoked tobacco (finding) JERI (Pancho Larsen MD [facility]) Alcohol intake 03/11/2020 12:00:00 AM EST Not Currently completed [facility] Smoking 03/11/2020 12:00:00 AM EST Never smoker completed Never s moker [facility] Alcohol intake 01/29/2020 12:00:00 AM EST Not Currently completed [facility] Smoking 01/29/2020 12:00:00 AM EST Never smoker completed Never s moker [facility] Alcohol intake 01/21/2020 12:00:00 AM EST Not Currently completed [facility] Smoking 01/21/2020 12:00:00 AM EST Never smoker completed Never s basiliaker [facility] Vital Signs ID Date Data Source [id number] Name Value Range Interpretation Code Description Data Source(s) Systolic blood pressure 123 mm[Hg] 123 mm[Hg] M [facility] ([facility], [facility]) Body weight 200.00 [lb_av] 200.00 [lb_av] [facility] [facility], [facility]) Body height 62 [in_i] 62 [in_i] MEDENT ([facility], [facility]) 5'2" Body mass index (BMI) [Ratio] 36.6 kg/m2 36.6 k g/m2 MEDENT ([facility]) Diastolic blood pressure 84 mm[Hg] 84 mm[Hg] MEDENT ([facility]) Heart rate 98 /min 98 /min MEDENT ([facility], [facility]) Respiratory rate 12 /min 12 /min [facility] ( [facility]) Oxygen saturation in Arterial blood by Pulse oximetry 98 % 98 % [facility] ([facility]) Body temperature 97.8 [degF] 97.8 [degF] [facility] ([facility]) Systolic blood pressure 155 mm[Hg] 155 mm[Hg] [facility] ([facility]) Diastolic blood pressure 88 mm[Hg] 88 mm[Hg] MEDENT ([facility]) Heart rate 85 /min 85 /min MEDENT ([facility]) Body weight 200.00 [lb_av] 200.00 [lb_av] MEDEN T ([facility]) Systolic blood pressure 140 mm[Hg] 140 mm[Hg] M EDENT ([facility], ) Diastolic blood pressure 80 mm[Hg] 80 mm[Hg] MEDENT ([facility]) Heart rate 80 /min 80 /min MEDENT ([facility], ) Respiratory rate 16 /min 16 /min MEDENT ( [facility], ) Body weight 198.00 [lb_av] 198.00 [lb_av] MEDEN T ([facility]) Diastolic blood pressure 91 mm[Hg] 91 mm[Hg] MEDENT ([facility]) Heart rate 85 /min 85 /min MEDENT ([facility] Systolic blood pressure 164 mm[Hg] 164 mm[Hg] M EDENT ([facility]) Diastolic blood pressure 92 mm[Hg] 92 mm[Hg] COURT ([facility]) Systolic blood pressure 126 mm[Hg] 126 mm[Hg] A THENA ([facility]) Body height 62 [in_i] 62 [in_i] COURT ([facility]) Diastolic blood pressure 92 mm[Hg] 92 mm[Hg] COURT ([facility]) Body height 62 [in_i] 62 [in_i] COURT ([facility]) Systolic blood pressure 126 mm[Hg] 126 mm[Hg] A THENA ([facility]) Diastolic blood pressure 92 mm[Hg] 92 mm[Hg] COURT ([facility]) Body height 62 [in_i] 62 [in_i] COURT ([facility]) Systolic blood pressure 126 mm[Hg] 126 mm[Hg] A THENA ([facility]) Diastolic blood pressure 88 mm[Hg] 88 mm[Hg] MEDENT ([facility]) Heart rate 85 /min 85 /min MEDENT ([facility]) Body height 61.75 [in_i] 61.75 [in_i] MEDENT ([facility]) 5'1.75" Systolic blood pressure 138 mm[Hg] 138 mm[Hg] M EDENT ([facility]) Oxygen saturation in Arterial blood by Pulse oximetry 99 % 99 % MEDENT ([facility]) RM Air Body weight 200.00 [lb_av] 200.00 [lb_av] MEDEN T ([facility]) Body height 61.75 [in_i] 61.75 [in_i] [facility]ENT [facility] 5'1.75" Diastolic blood pressure 78 mm[Hg] 78 mm[Hg] MEDENT ([facility]) Systolic blood pressure 124 mm[Hg] 124 mm[Hg] M EDENT ([facility]) Heart rate 83 /min 83 /min [facility] Oxygen saturation in Arterial blood by Pulse oximetry 96 % 96 % MEDENT ([facility]) Air Body mass index (BMI) [Ratio] 36.9 kg/m2 36.9 k g/m2 MEDENT ([facility]) Diastolic blood pressure 80 mm[Hg] 80 mm[Hg] MEDENT ([facility]) Systolic blood pressure 132 mm[Hg] 132 mm[Hg] M EDENT ([facility]) Heart rate 96 /min 96 /min MEDENT ([facility]) Body height 61.75 [in_i] 61.75 [in_i] [facility] ( [facility] 5'1.75" Body weight 200.00 [lb_av] 200.00 [lb_av] MEDEN T ([facility]) Body mass index (BMI) [Ratio] 36.9 kg/m2 36.9 k g/m2 MEDENT ([facility]) Systolic blood pressure 152 mm[Hg] 152 mm[Hg] EDENT ([facility], [facility]) Diastolic blood pressure 89 mm[Hg] 89 mm[Hg] MEDENT ([facility], [facility]) Heart rate 90 /min 90 /min MEDENT ([facility]) Respiratory rate 16 /min 16 /min MEDENT ( [facility], [facility]) Oxygen saturation in Arterial blood by Pulse oximetry 97 % 97 % [facility] ([facility], [facility]) Body temperature 98.5 [degF] 98.5 [degF] [facility] ([facility], [facility]) Body weight 200.00 [lb_av] 200.00 [lb_av] MEDEN T ([facility], [facility]) Body height 64 [in_i] 64 [in_i] MEDENT ([facility], [facility]) 5'4" Body mass index (BMI) [Ratio] 34.3 kg/m2 34.3 k g/m2 MEDENT ([facility], [facility]) Body weight 199.6 [lb_av] 199.6 [lb_av] eCW1 ([facility]) Body weight 90.54 kg 90.54 kg eCW1 ([facility]) Body height 62 [in_i] 62 [in_i] eCW1 ([facility]) Body mass index (BMI) [Ratio] 36.50 kg/m2 36.50 kg/m2 eCW1 ([facility]) Heart rate 80 /min 80 /min eCW1 ([facility]) Respiratory rate 18 /min 18 /min eCW1 ([facility]) Body temperature 97.6 [degF] 97.6 [degF] eCW1 ( [facility]) Systolic blood pressure 190 mm[Hg] 190 mm[Hg] e CW1 ([facility]) Diastolic blood pressure 86 mm[Hg] 86 mm[Hg] eCW1 ([facility]) Body temperature 97.1 [degF] 97.1 [degF] MEDENT ([facility]) Body mass index (BMI) [Ratio] 38.1 kg/m2 38.1 k g/m2 MEDENT ([facility]) Body height 60.5 [in_i] 60.5 [in_i] MEDENT ([facility]) 5'0.50" Body weight 198.12 [lb_av] 198.12 [lb_av] MEDEN T ([facility]) Systolic blood pressure 138 mm[Hg] 138 mm[Hg] M EDENT ([facility]) Diastolic blood pressure 88 mm[Hg] 88 mm[Hg] MEDENT ([facility]) Heart rate 85 /min 85 /min MEDENT ([facility]) Body height 61.75 [in_i] 61.75 [in_i] [facility] ( [facility] 5'1.75" Body weight 201.00 [lb_av] 201.00 [lb_av] MEDEN T ([facility]) Oxygen saturation in Arterial blood by Pulse oximetry 96 % 96 % MEDENT ([facility]) RM Air Body mass index (BMI) [Ratio] 37.1 kg/m2 37.1 k g/m2 MEDENT ([facility]) Body height 61.75 [in_i] 61.75 [in_i] MEDENT ([facility]) 5'1.75" Body weight 197.00 [lb_av] 197.00 [lb_av] MEDEN T ([facility]) Body mass index (BMI) [Ratio] 36.3 kg/m2 36.3 k g/m2 MEDENT ([facility]) Systolic blood pressure 130 mm[Hg] 130 mm[Hg] M EDENT ([facility]) Diastolic blood pressure 74 mm[Hg] 74 mm[Hg] MEDENT ([facility]) Heart rate 76 /min 76 /min MEDENT ([facility]) Body weight 198 [lb_av] 198 [lb_av] eCW1 ([facility]) Body height 62 [in_i] 62 [in_i] eCW1 ([facility]) Body mass index (BMI) [Ratio] 36.21 kg/m2 36.21 kg/m2 eCW1 ([facility]) Heart rate 83 /min 83 /min eCW1 ([facility]) Respiratory rate 18 /min 18 /min eCW1 ([facility]) Body temperature 98.2 [degF] 98.2 [degF] eCW1 ( [facility]) Systolic blood pressure 181 mm[Hg] 181 mm[Hg] e CW1 ([facility]) Diastolic blood pressure 98 mm[Hg] 98 mm[Hg] eCW1 ([facility]) Diastolic blood pressure 80 mm[Hg] 80 mm[Hg] MEDENT ([facility], ) Heart rate 68 /min 68 /min MEDENT ([facility], ) Respiratory rate 20 /min 20 /min MEDENT ( [facility], ) Systolic blood pressure 130 mm[Hg] 130 mm[Hg] M EDENT ([facility], ) Body mass index (BMI) [Ratio] 36.3 kg/m2 36.3 k g/m2 MEDENT ([facility]) Body temperature 97.2 [degF] 97.2 [degF] MEDENT ([facility]) Body height 61.75 [in_i] 61.75 [in_i] MEDENT ([facility]) 5'1.75" Body weight 197.00 [lb_av] 197.00 [lb_av] MEDEN T ([facility]) Body mass index (BMI) [Ratio] 36.50 kg/m2 36.50 kg/m2 eCW1 ([facility]) Body weight 199.6 [lb_av] 199.6 [lb_av] eCW1 ([facility]) Body height 62 [in_i] 62 [in_i] eCW1 ([facility]) Systolic blood pressure 171 mm[Hg] 171 mm[Hg] e CW1 ([facility]) Diastolic blood pressure 83 mm[Hg] 83 mm[Hg] eCW1 ([facility]) Heart rate 83 /min 83 /min eCW1 ([facility]) Respiratory rate 18 /min 18 /min eCW1 ([facility]) Body temperature 98.6 [degF] 98.6 [degF] eCW1 ( [facility]) Body weight 199 [lb_av] 199 [lb_av] eCW1 ([facility]) Body height 62 [in_i] 62 [in_i] eCW1 ([facility]) Body mass index (BMI) [Ratio] 36.39 kg/m2 36.39 kg/m2 eCW1 ([facility]) Heart rate 63 /min 63 /min eCW1 ([facility]) Respiratory rate 18 /min 18 /min eCW1 ([facility]) Body temperature 95.9 [degF] 95.9 [degF] eCW1 ( [facility]) Systolic blood pressure 147 mm[Hg] 147 mm[Hg] e CW1 ([facility]) Diastolic blood pressure 84 mm[Hg] 84 mm[Hg] eCW1 ([facility]) Systolic blood pressure 138 mm[Hg] 138 mm[Hg] [facility] Diastolic blood pressure 90 mm[Hg] 90 mm[Hg] [facility] Heart rate 74 /min 74 /min [facility] Respiratory rate 18 /min 18 /min [facility] Body weight 91.899 kg 91.899 kg [facility] Body mass index (BMI) [Ratio] 33.71 kg/m2 33.71 kg/m2 [facility] Oxygen saturation in Arterial blood by Pulse oximetry 96 % 96 % [facility] Systolic blood pressure 107 mm[Hg] 107 mm[Hg] [facility] Diastolic blood pressure 81 mm[Hg] 81 mm[Hg] [facility] Heart rate 75 /min 75 /min [facility] Body temperature 36.56 Joan 36.56 Joan [facility] Respiratory rate 18 /min 18 /min [facility] Oxygen saturation in Arterial blood by Pulse oximetry 96 % 96 % [facility] Body height 165.1 cm 165.1 cm [facility] Body weight 88.9 kg 88.9 kg [facility] Body mass index (BMI) [Ratio] 32.61 kg/m2 32.61 kg/m2 [facility] Body weight 202.2 [lb_av] 202.2 [lb_av] eCW1 ([facility]) Body height 62 [in_i] 62 [in_i] eCW1 ([facility]) Body mass index (BMI) [Ratio] 36.98 kg/m2 36.98 kg/m2 eCW1 ([facility]) Heart rate 85 /min 85 /min eCW1 ([facility]) Respiratory rate 18 /min 18 /min eCW1 ([facility]) Body temperature 97.7 [degF] 97.7 [degF] eCW1 ( [facility]) Systolic blood pressure 128 mm[Hg] 128 mm[Hg] e CW1 ([facility]) Diastolic blood pressure 74 mm[Hg] 74 mm[Hg] eCW1 ([facility]) Heart rate 92 /min 92 /min MEDENT ([facility] Body height 60 [in_i] 60 [in_i] MEDENT ([facility]) 5'0" Body weight 199.12 [lb_av] 199.12 [lb_av] MEDEN T ([facility]) Diastolic blood pressure 87 mm[Hg] 87 mm[Hg] [facility] ([facility]) Body mass index (BMI) [Ratio] 38.9 kg/m2 38.9 k g/m2 [facility] ([facility]) Respiratory rate 18 /min 18 /min [facility] ( [facility]) Systolic blood pressure 145 mm[Hg] 145 mm[Hg] [facility] ([facility]) Diastolic blood pressure 94 mm[Hg] 94 mm[Hg] [facility] ([facility]) Systolic blood pressure 155 mm[Hg] 155 mm[Hg] [facility] ([facility]) Body height 63 [in_i] 63 [in_i] [facility] ([facility]) 5'3" Body weight 202.25 [lb_av] 202.25 [lb_av] MEDEN T ([facility]) Body mass index (BMI) [Ratio] 35.8 kg/m2 35.8 k g/m2 [facility] ([facility]) [place] body weight 115 [lb_av] 115 [lb_av] [facility] Body surface area Derived from formula 1.94 m2 1.94 m2 [facility] ([facility]) Body weight 91.741 kg 91.741 kg [facility] ([facility]) Systolic blood pressure 120 mm[Hg] 120 mm[Hg] [facility] ([facility]) Body weight 201.38 [lb_av] 201.38 [lb_av] MEDEN T ([facility]) Oxygen saturation in Arterial blood by Pulse oximetry 99 % 99 % [facility] ([facility]) RM Air Diastolic blood pressure 80 mm[Hg] 80 mm[Hg] [facility] ([facility]) Body mass index (BMI) [Ratio] 37.1 kg/m2 37.1 k g/m2 MEDENT ([facility]) Heart rate 87 /min 87 /min MEDENT ([facility]) Body height 61.75 [in_i] 61.75 [in_i] MEDENT ([facility]) 5'1.75" Systolic blood pressure 126 mm[Hg] 126 mm[Hg] [facility] Diastolic blood pressure 74 mm[Hg] 74 mm[Hg] [facility] Heart rate 78 /min 78 /min [facility] Body weight 91.173 kg 91.173 kg [facility] Body mass index (BMI) [Ratio] 36.76 kg/m2 36.76 kg/m2 [facility] Oxygen saturation in Arterial blood by Pulse oximetry 97 % 97 % [facility] Systolic blood pressure 161 mm[Hg] 161 mm[Hg] A THENA ([facility]) Diastolic blood pressure 89 mm[Hg] 89 mm[Hg] COURT ([facility]) Body height 62 [in_i] 62 [in_i] COURT ([facility]) Systolic blood pressure 161 mm[Hg] 161 mm[Hg] A THENA ([facility]) Diastolic blood pressure 89 mm[Hg] 89 mm[Hg] COURT ([facility]) Body height 62 [in_i] 62 [in_i] COURT ([facility]) Diastolic blood pressure 89 mm[Hg] 89 mm[Hg] COURT ([facility]) Body height 62 [in_i] 62 [in_i] COURT ([facility]) Systolic blood pressure 161 mm[Hg] 161 mm[Hg] A THENA ([facility]) Body height 62 [in_i] 62 [in_i] COURT ([facility]) Diastolic blood pressure 89 mm[Hg] 89 mm[Hg] COURT ([facility]) Systolic blood pressure 161 mm[Hg] 161 mm[Hg] A THENA ([facility]) Systolic blood pressure 134 mm[Hg] 134 mm[Hg] M BHAVNA ([facility]) Diastolic blood pressure 90 mm[Hg] 90 mm[Hg] MEDENT ([facility]) Body height 61.75 [in_i] 61.75 [in_i] MEDENT ([facility]) 5'1.75" Body weight 200.00 [lb_av] 200.00 [lb_av] MEDEN T ([facility]) Oxygen saturation in Arterial blood by Pulse oximetry 98 % 98 % MEDENT ([facility]) Body mass index (BMI) [Ratio] 36.9 kg/m2 36.9 k g/m2 MEDENT ([facility]) Heart rate 80 /min 80 /min MEDENT ([facility]) Systolic blood pressure 128 mm[Hg] 128 mm[Hg] [facility] Diastolic blood pressure 90 mm[Hg] 90 mm[Hg] [facility] Heart rate 91 /min 91 /min [facility] Body height 157.5 cm 157.5 cm [facility] Body weight 90.719 kg 90.719 kg [facility] Body mass index (BMI) [Ratio] 36.58 kg/m2 36.58 kg/m2 [facility] Oxygen saturation in Arterial blood by Pulse oximetry 95 % 95 % [facility] Heart rate 80 /min 80 /min [facility] ([facility]) Systolic blood pressure 178 mm[Hg] 178 mm[Hg] M EDENT ([facility]) headaches Systolic blood pressure 150 mm[Hg] 150 mm[Hg] M EDENT ([facility]) Diastolic blood pressure 100 mm[Hg] 100 mm[Hg] MEDENT ([facility]) headaches Body mass index (BMI) [Ratio] 36.9 kg/m2 36.9 k g/m2 MEDENT ([facility]) Diastolic blood pressure 88 mm[Hg] 88 mm[Hg] MEDENT ([facility]) Body height 61.75 [in_i] 61.75 [in_i] MEDENT ([facility]) 5'1.75" Body weight 200.00 [lb_av] 200.00 [lb_av] MEDEN T ([facility]) Diastolic blood pressure 95 mm[Hg] 95 mm[Hg] COURT ([facility]) Body height 62 [in_i] 62 [in_i] COURT ([facility]) Systolic blood pressure 166 mm[Hg] 166 mm[Hg] A THENA ([facility]) Body height 62 [in_i] 62 [in_i] COURT ([facility]) Systolic blood pressure 166 mm[Hg] 166 mm[Hg] A THENA ([facility]) Diastolic blood pressure 95 mm[Hg] 95 mm[Hg] COURT ([facility]) Diastolic blood pressure 95 mm[Hg] 95 mm[Hg] COURT ([facility]) Body height 62 [in_i] 62 [in_i] COURT ([facility]) Systolic blood pressure 166 mm[Hg] 166 mm[Hg] A THENA ([facility]) Diastolic blood pressure 95 mm[Hg] 95 mm[Hg] COURT ([facility]) Body height 62 [in_i] 62 [in_i] COURT ([facility]) Systolic blood pressure 166 mm[Hg] 166 mm[Hg] A THENA ([facility]) Diastolic blood pressure 95 mm[Hg] 95 mm[Hg] COURT ([facility]) Body height 62 [in_i] 62 [in_i] COURT ([facility]) Systolic blood pressure 166 mm[Hg] 166 mm[Hg] A THENA ([facility]) Systolic blood pressure 157 mm[Hg] 157 mm[Hg] [facility] Diastolic blood pressure 92 mm[Hg] 92 mm[Hg] [facility] Heart rate 77 /min 77 /min [facility] Body temperature 36.44 Joan 36.44 Joan [facility] Respiratory rate 17 /min 17 /min [facility] Oxygen saturation in Arterial blood by Pulse oximetry 95 % 95 % [facility] Body weight 89.5 kg 89.5 kg [facility] Body mass index (BMI) [Ratio] 38.53 kg/m2 38.53 kg/m2 [facility] Body height 152.4 cm 152.4 cm [facility] Systolic blood pressure 140 mm[Hg] 140 mm[Hg] M EDENT ([facility]) Diastolic blood pressure 80 mm[Hg] 80 mm[Hg] MEDENT ([facility]) Body weight 201.00 [lb_av] 201.00 [lb_av] MEDEN T ([facility]) Body temperature 99.0 [degF] 99.0 [degF] MEDENT ([facility]) Systolic blood pressure 145 mm[Hg] 145 mm[Hg] M EDENT ([facility]) Diastolic blood pressure 96 mm[Hg] 96 mm[Hg] MEDENT ([facility]) Heart rate 74 /min 74 /min MEDENT ([facility]) Body temperature 97.1 [degF] 97.1 [degF] MEDENT ([facility]) Respiratory rate 16 /min 16 /min MEDENT ( [facility]) Oxygen saturation in Arterial blood by Pulse oximetry 94 % 94 % MEDENT ([facility]) Heart rate 87 /min 87 /min MEDENT ([facility] Respiratory rate 16 /min 16 /min MEDENT [...] mm[Hg] 95 mm[Hg] COURT ([facility]) Body height 62 [in_i] 62 [in_i] COURT ([facility]) Systolic blood pressure 175 mm[Hg] 175 mm[Hg] A THENA ([facility]) Diastolic blood pressure 95 mm[Hg] 95 mm[Hg] COURT ([facility]) Systolic blood pressure 175 mm[Hg] 175 mm[Hg] A THENA ([facility]) Body height 62 [in_i] 62 [in_i] COURT ([facility]) Diastolic blood pressure 95 mm[Hg] 95 mm[Hg] COURT ([facility]) Body height 62 [in_i] 62 [in_i] COURT ([facility]) Systolic blood pressure 175 mm[Hg] 175 mm[Hg] A THENA ([facility]) Diastolic blood pressure 95 mm[Hg] 95 mm[Hg] COURT ([facility]) Body height 62 [in_i] 62 [in_i] COURT ([facility]) Systolic blood pressure 175 mm[Hg] 175 mm[Hg] A THENA ([facility]) Diastolic blood pressure 95 mm[Hg] 95 mm[Hg] COURT ([facility]) Body height 62 [in_i] 62 [in_i] COURT ([facility]) Systolic blood pressure 175 mm[Hg] 175 mm[Hg] A THENA ([facility]) Diastolic blood pressure 95 mm[Hg] 95 mm[Hg] COURT ([facility]) Body height 62 [in_i] 62 [in_i] COURT ([facility]) Systolic blood pressure 175 mm[Hg] 175 mm[Hg] A THENA ([facility]) Diastolic blood pressure 80 mm[Hg] 80 mm[Hg] JAMILAH ([facility]) Body weight 204.00 [lb_av] 204.00 [lb_av] THAIEN T ([facility]) Body height 61.75 [in_i] 61.75 [in_i] JAMILAH ([facility]) 5'1.75" Systolic blood pressure 130 mm[Hg] 130 mm[Hg] M BHAVNA ([facility]) Body mass index (BMI) [Ratio] 37.6 kg/m2 37.6 k g/m2 JAMILAH ([facility]) Patient Treatment Plan of Care Planned Activity Planned Date Details Description Data Source (s) onabotulinumtoxinA 100 UNT/ML Injectable Solution [Bot ox] 11/01/2020 12:00:00 AM EDT eCW1 ([facility]) onabotulinumtoxinA 100 UNT/ML Injectable Solution [Bot ox] 07/08/2020 12:00:00 AM EDT eCW1 ([facility]) Lisinopril 20 MG Oral Tablet 06/24/2020 12:00:00 AM EDT [facility] normal saline flush 0.9 % injection 3 mL 06/22/2020 03:00:00 PM EDT [facility] sodium chloride 0.9% (NS) infusion 06/22/2020 03:00:00 PM EDT [facility] Nitroglycerin 0.4 MG Sublingual Tablet 06/22/2020 02:18:36 PM EDT [facility] 10 ML Atropine Sulfate 0.1 MG/ML Prefilled Syringe 06/22/2020 02 :18:35 PM EDT [facility] normal saline flush 0.9 % injection 3 mL 06/22/2020 02:00:00 PM EDT [facility] normal saline flush 0.9 % injection 3 mL 06/22/2020 02:00:00 PM EDT [facility] clopidogrel 75 MG Oral Tablet 06/22/2020 12:00:00 AM EDT [facility] 24 HR Isosorbide Mononitrate 30 MG Extended Release Or al Tablet 06/16/2020 12:00:00 AM EDT [facility] Lisinopril 20 MG Oral Tablet 06/15/2020 12:00:00 AM EDT [facility] prednisolone acetate 10 MG/ML Ophthalmic Suspension 05/29/19 12:00:00 AM EDT [facility] clopidogrel 75 MG Oral Tablet 05/19/2020 12:00:00 AM EDT [facility] atorvastatin 80 MG Oral Tablet 04/28/2020 12:00:00 AM EST [facility] Bisoprolol Fumarate 10 MG Oral Tablet 04/28/2020 12:00:00 AM EST [facility] prednisolone acetate 10 MG/ML Ophthalmic Suspension 04/28/19 12:00:00 AM EST [place] (Pancho Larsen MD [facility]) Lisinopril 10 MG Oral Tablet 03/11/2020 12:00:00 AM EST [facility] 120 ACTUAT Fluticasone propionate 0.23 M G/ACTUAT / salmeterol 0.021 MG/ACTUAT Metered Dose Inhaler [Advair] 03/06/2020 12:00:00 AM EST [facility] Bisoprolol Fumarate 10 MG Oral Tablet 01/29/2020 12:00:00 AM EST [facility] atorvastatin 80 MG Oral Tablet 01/29/2020 12:00:00 AM EST [facility] 24 HR Isosorbide Mononitrate 30 MG Extended Release Or al Tablet 01/24/2020 12:00:00 AM EST [facility] Bisoprolol Fumarate 5 MG Oral Tablet 01/24/2020 12:00:00 AM EST [facility] Lisinopril 5 MG Oral Tablet 01/23/2020 12:00:00 AM EST [facility] clopidogrel 75 MG Oral Tablet 01/23/2020 12:00:00 AM EST [facility] Trazodone Hydrochloride 100 MG Oral Tablet 01/08/2020 12:00:00 AM E [facility] clopidogrel 75 MG Oral Tablet 12/30/2019 12:00:00 AM EST [facility] 120 ACTUAT Fluticasone propionate 0.23 M G/ACTUAT / salmeterol 0.021 MG/ACTUAT Metered Dose Inhaler [Advair] 12/09/2019 12:00:00 AM EDT [facility] gabapentin 600 MG Oral Tablet 11/11/2019 12:00:00 AM EDT [facility] carvedilol 25 MG Oral Tablet 08/11/2019 12:00:00 AM EDT [facility] fluticasone (FLONASE) 50 MCG/ACT nasal spray 02/22/2019 12:00:00 AM EST [facility] loteprednol etabonate 0.005 MG/MG Ophthalmic Ointment [Lotemax] 02/08/2018 12:00:00 AM EST [facility] (Pancho Larsen MD [facility]) Lisinopril 2.5 MG Oral Tablet 05/17/2016 12:00:00 AM EDT [facility] atorvastatin 40 MG Oral Tablet 03/17/2016 12:00:00 AM EST [facility] Melatonin 10 MG Oral Tablet 03/17/2016 12:00:00 AM EST [facility] alcaftadine 2.5 MG/ML Ophthalmic Solution [Lastacaft] 01/20/2016 12:00:00 AM EST [facility]I (Pancho Larsen MD [facility]) Oxycodone Hydrochloride [address] ([facility]) Ondansetron [address] ([facility]) Nystatin 342044 UNT/ML Topical Cream COURT ([facility]) NITROFURANTOIN, MACROCRYSTALS 25 MG / Ni trofurantoin, Monohydrate [address] [facility] Lisinopril [address] ([facility]) Lisinopril 2.[address] ([facility]) Lisinopril [address] ([facility]) Isosorbide Dinitrate [address] ([facility]) Ibuprofen [address] ([facility]) Acetaminophen 325 MG / Hydrocodone Bitartrate [address] ([facility]) Doxycycline Monohydrate [address] ([facility]) Clonazepam 0.[address] ([facility]) Cephalexin [address] ([facility]) carvedilol [address] ([facility]) Bisoprolol Fumarate [address] ([facility]) atorvastatin [address] ([facility]) Trazodone Hydrochloride [address] ([facility]) tramadol hydrochloride [address] ([facility]) Oxycodone Hydrochloride [address] ([facility]) Ondansetron [address] ([facility]) Nystatin [id number] UNT/ML Topical Cream COURT ([facility]) NITROFURANTOIN, MACROCRYSTALS 25 MG / Ni trofurantoin, Monohydrate [address] ([facility]) Lisinopril [address] ([facility]) Lisinopril 2.[address] ([facility]) Lisinopril [address] ([facility]) Isosorbide Dinitrate [address] ([facility]) Ibuprofen [address] ([facility]) Acetaminophen 325 MG / Hydrocodone Bitartrate [address] ([facility]) Clonazepam 0.[address] ([facility]) carvedilol [address] ([facility]) Bisoprolol Fumarate [address] ([facility]) atorvastatin 40 MG Oral Tablet CUORT ([facility]) Trazodone Hydrochloride [address] ([facility]) tramadol hydrochloride [address] ([facility]) Oxycodone Hydrochloride [address] ([facility]) Ondansetron [address] ([facility]) Nystatin [id number] UNT/ML Topical Cream COURT ([facility]) NITROFURANTOIN, MACROCRYSTALS 25 MG / Ni trofurantoin, Monohydrate [address] [facility] Lisinopril [address] ([facility]) Lisinopril 2.[address] ([facility] Lisinopril [address] ([facility]) Isosorbide Dinitrate [address] ([facility]) Ibuprofen [address] ([facility] Acetaminophen 325 MG / Hydrocodone Bitartrate [address] ([facility]) Doxycycline Monohydrate [address] ([facility] Clonazepam 0.[address] ([facility]) Cephalexin [address] ([facility]) carvedilol [address] ([facility] Bisoprolol Fumarate [address] ([facility]) atorvastatin [address] ([facility]) Trazodone Hydrochloride [address] ([facility]) tramadol hydrochloride [address] ([facility]) 24 HR Isosorbide Mononitrate 30 MG Extended Release Oral Tablet [facility] Oxycodone Hydrochloride 5 MG Oral Tablet [facility] Diclofenac Sodium 0.01 MG/MG Topical Gel [facility] 120 ACTUAT Fluticasone propionate 0.115 MG/ACTUAT / salmeterol 0.021 MG/ACTUAT Metered Dose Inhaler [facility] Trazodone Hydrochloride 150 MG Oral Tablet [facility] Trazodone Hydrochloride [address] ([facility]) tramadol hydrochloride [address] ([facility]) Oxycodone Hydrochloride [address] ([facility]) Ondansetron [address] ([facility]) Nystatin [id number] UNT/ML Topical Cream COURT ([facility]) Lisinopril 2.[address] ([facility]) Isosorbide Dinitrate [address] ([facility]) Acetaminophen 325 MG / Hydrocodone Bitartrate [address] ([facility]) fluticasone propionate 50 mcg/actuation nasal spray,suspension COURT ([facility]) Bisoprolol Fumarate [address] ([facility]) atorvastatin [address] ([facility]) Oxycodone Hydrochloride [address] ([facility]) Ondansetron [address] ([facility]) Isosorbide Dinitrate [address] ([facility]) fluticasone propionate 50 mcg/actuation nasal spray,suspension COURT ([facility]) CALCIUM CARBONATE-VITAMIN D PO [facility] Trazodone Hydrochloride [address] ([facility])
[2021-01-22 22:51] LABS: INR 1.09; PROTHROMBIN TIME 14.6 SECONDS (12.7-14.5)
[2021-01-22 22:52] LABS: PARTIAL THROMBOPLASTIN TIME 38.2 SECONDS (25.9-37.0)
[2021-01-22] MEDS ORDERED: cefTRIAXone SOD 2 GM in D5W MINI-BAG PLUS 50 ML IV ONE (23:00)
[2021-01-22 23:16] LABS: ALBUMIN 2.8 GM/DL (3.2-5.2); ALT/SGPT 84 U/L (12-78); BILIRUBIN,DIRECT 0.5 MG/DL (0.0-0.2); BILIRUBIN,TOTAL 0.9 MG/DL (0.2-1.0); BLOOD UREA NITROGEN 10 MG/DL (7-18); CALCIUM LEVEL 8.5 MG/DL (8.8-10.2); CARBON DIOXIDE LEVEL 22 MEQ/L (21-32); CHLORIDE LEVEL 100 MEQ/L (98-107); GLOMERULAR FILTRATION RATE > 60.0 (>45); GLUCOSE, FASTING 111 MG/DL (70-100); NT-PRO BNP 424 PG/ML (<125); POTASSIUM SERUM 4.1 MEQ/L (3.5-5.1); SODIUM LEVEL 132 MEQ/L (136-145); THYROID STIMULATING HORMONE 0.198 uIU/ML (0.358-3.740); TOTAL PROTEIN 6.9 GM/DL (6.4-8.2)
[2021-01-23] VITALS (8 sets, daily range): BP systolic 120–153; BP diastolic 79–92; O2SAT 90–95
[2021-01-23] MEDS ORDERED: LEVALBUTEROL 1.25 MG/0.5 ML CONCENTRATE NEB NEB PRN (00:15)
--- OUTSIDE RECORDS SUMMARY | 2021-01-23 00:30 | CCD ---
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 Name Role Phone Laci Sayda [facility] [facility], PA-C Unavailable Unavailabl e Fish, Sayda [facility], PA-C Unavailable Unavailabl e Fish, Sayda [facility], PA-C Unavailable Unavailabl e Fish, Sayda [facility], PA-C Unavailable Unavailabl e Fish, Sayda [facility], PA-C Unavailable Unavailabl e Fish, Sayda [facility], PA-C Unavailable Unavailabl e Fish, Sayda [facility], PA-C Unavailable Unavailabl e Fish, Sayda [facility], PA-C Unavailable Unavailabl e Fish, Sayda [facility], PA-C Unavailable Unavailabl e Fish, Sayda [facility], PA-C Unavailable Unavailabl e Fish, Sayda [facility], PA-C Unavailable Unavailabl e Fish, Sayda [facility], PA-C Unavailable Unavailabl e Fish, Sayda [facility], PA-C Unavailable Unavailabl e Fish, Sayda [facility], PA-C Unavailable Unavailabl e Fish, Sayda [facility], PA-C Unavailable Unavailabl e Fish, Sayda Vivienne MPAS, PA-C Unavailable Unavailabl e Fish, [facility], PA-C Unavailable Unavailabl e Fish, [facility], PA-C Unavailable Unavailabl e Fish, [facility], PA-C Unavailable Unavailabl e Fish, [facility], PA-C Unavailable Unavailabl e Fish, [facility], PA-C Unavailable Unavailabl e Fish, [facility], PA-C Unavailable Unavailabl e Fish, [facility], PA-C Unavailable Unavailabl e Fish, [facility], PA-C Unavailable Unavailabl e Fish, [facility], PA-C Unavailable Unavailabl e Fish, [facility], PA-C Unavailable Unavailabl e Fish, [facility], PA-C Unavailable Unavailabl e Fish, [facility], PA-C Unavailable Unavailabl e Fish, [facility], PA-C Unavailable Unavailabl e Fish, [facility], PA-C Unavailable Unavailabl e Fish, [facility], PA-C Unavailable Unavailabl e Fish, [facility], PA-C Unavailable Unavailabl e Fish, [facility], PA-C Unavailable Unavailabl e Fish, [facility], PA-C Unavailable Unavailabl e Fish, [facility], PA-C Unavailable Unavailabl e Fish, [facility], PA-C Unavailable Unavailabl e JOHN PHILLIPS [...] J Ragini PA Unavailable Unavailable Trickey, J Ragiin PA Unavailable Unavailable Trickey, J Ragini PA [...] Unavailable JOSE, BHUPENDRA PA Unavailable Unavailable JOSE, BHPUENDRA PA Unavailable Unavailable JOSE, BHUPENDRA PA Unavailable Unavailable JOSE, BHUPENDRA PA Unavailable Unavailable JOSE, BHUPENDRA PA Unavailable Unavailable JOSE, BHUPENDRA PA Unavailable Unavailable JOSE, BHUPENDRA PA Unavailable Unavailable JOSE, BHUPENDRA PA Unavailable Unavailable JOSE, BHUPENDRA PA Unavailable Unavailable Jumalon, M Razia CONTINUUM OF CARE MANAGER Unavailable Unavailable Jumalon, M Razia CONTINUUM OF CARE MANAGER Unavailable Unavailable Jumalon, M Razia CONTINUUM OF CARE MANAGER Unavailable Unavailable Jumalon, M Razia CONTINUUM OF CARE MANAGER Unavailable Unavailable Jumalon, M Razia CONTINUUM OF CARE MANAGER Unavailable Unavailable Jumalon, M Razia CONTINUUM OF CARE MANAGER Unavailable Unavailable Jumalon, M Razia CONTINUUM OF CARE MANAGER Unavailable Unavailable Jumalon, M Razia CONTINUUM OF CARE MANAGER Unavailable Unavailable Jumalon, M Razia CONTINUUM OF CARE MANAGER Unavailable Unavailable Jumalon, M Razia CONTINUUM OF CARE MANAGER Unavailable Unavailable Jumalon, M Razia CONTINUUM OF CARE MANAGER Unavailable Unavailable Jumalon, M Razia CONTINUUM OF CARE MANAGER Unavailable Unavailable Jumalon, M Razia CONTINUUM OF CARE MANAGER Unavailable Unavailable Jumalon, M Razia CONTINUUM OF CARE MANAGER Unavailable Unavailable Jumalon, M Razia CONTINUUM OF CARE MANAGER Unavailable Unavailable Jumalon, M Razia CONTINUUM OF CARE MANAGER Unavailable Unavailable Jumalon, M Razia CONTINUUM OF CARE MANAGER Unavailable Unavailable Jumalon, M Razia CONTINUUM OF CARE MANAGER Unavailable Unavailable Jumalon, M Razia CONTINUUM OF CARE MANAGER Unavailable Unavailable Jumalon, M Razia CONTINUUM OF CARE MANAGER Unavailable Unavailable Jumalon, M Razia CONTINUUM OF CARE MANAGER Unavailable Unavailable Jumalon, M Razia CONTINUUM OF CARE MANAGER Unavailable Unavailable Jumalon, M Razia CONTINUUM OF CARE MANAGER Unavailable Unavailable Jumalon, M Razia CONTINUUM OF CARE MANAGER Unavailable Unavailable Jumalon, M Razia CONTINUUM OF CARE MANAGER Unavailable Unavailable Jumalon, M Razia CONTINUUM OF CARE MANAGER Unavailable Unavailable Jumalon, M Razia CONTINUUM OF CARE MANAGER Unavailable Unavailable Jumalon, M Razia CONTINUUM OF CARE MANAGER Unavailable Unavailable Jumalon, M Razia CONTINUUM OF CARE MANAGER Unavailable Unavailable Jumalon, M Razia CONTINUUM OF CARE MANAGER Unavailable Unavailable Rena Larsen, Kandi Deleon MD, [...] Kandi Deleon MD, FACS Unavailable Unavailable Chase Larsne, Kandi Deleon MD, FACS Unavailable Unavailable Chase [...] MD, FACS Unavailable Unavailable LePine, M Tracey PSYCHOLOGIST RESEARCH ASSISTANT Unavailable Unavailable LePine, M Tracey PSYCHOLOGIST RESEARCH ASSISTANT Unavailable Unavailable LePine, M Tracey PSYCHOLOGIST RESEARCH ASSISTANT Unavailable Unavailable LePine, M Tracey PSYCHOLOGIST RESEARCH ASSISTANT Unavailable Unavailable LePine, M Tracey PSYCHOLOGIST RESEARCH ASSISTANT Unavailable Unavailable LePine, M Tracey PSYCHOLOGIST RESEARCH ASSISTANT Unavailable Unavailable LePine, M Tracey PSYCHOLOGIST RESEARCH ASSISTANT Unavailable Unavailable LePine, M Tracey PSYCHOLOGIST RESEARCH ASSISTANT Unavailable Unavailable Le[place]ine, M Tracey PSYCHOLOGIST RESEARCH ASSISTANT Unavailable Unavailable Le[place]ine, M Tracey PSYCHOLOGIST RESEARCH ASSISTANT Unavailable Unavailable LePine, M Tracey PSYCHOLOGIST RESEARCH ASSISTANT Unavailable Unavailable LePine, M Tracey PSYCHOLOGIST RESEARCH ASSISTANT Unavailable Unavailable Le[place]ine, M Tracey PSYCHOLOGIST RESEARCH ASSISTANT Unavailable Unavailable LePine, M Tracey PSYCHOLOGIST RESEARCH ASSISTANT Unavailable Unavailable Le[place]ine, M Tracey PSYCHOLOGIST RESEARCH ASSISTANT Unavailable Unavailable Le[place]ine, M Tracey PSYCHOLOGIST RESEARCH ASSISTANT Unavailable Unavailable [place]ine, M Tracey PSYCHOLOGIST RESEARCH ASSISTANT Unavailable Unavailable [place], M Tracey PSYCHOLOGIST RESEARCH ASSISTANT Unavailable Unavailable Le[place]ine, M Tracey PSYCHOLOGIST RESEARCH ASSISTANT Unavailable Unavailable Le[place]ine, M Tracey PSYCHOLOGIST RESEARCH ASSISTANT Unavailable Unavailable Le[place]ine, M Tracey PSYCHOLOGIST RESEARCH ASSISTANT Unavailable Unavailable Le[place]ine, M Tracey PSYCHOLOGIST RESEARCH ASSISTANT Unavailable Unavailable Le[place]ine, M Tracey PSYCHOLOGIST RESEARCH ASSISTANT Unavailable Unavailable Le[place]ine, M Tracey PSYCHOLOGIST RESEARCH ASSISTANT Unavailable Unavailable Le[place]ine, M Tracey PSYCHOLOGIST RESEARCH ASSISTANT Unavailable Unavailable Le[place]ine, M Tracey PSYCHOLOGIST RESEARCH ASSISTANT Unavailable Unavailable LePine, M Tracey PSYCHOLOGIST RESEARCH ASSISTANT Unavailable Unavailable LePine, M Tracey PSYCHOLOGIST RESEARCH ASSISTANT Unavailable Unavailable LePine, M Tracey PSYCHOLOGIST RESEARCH ASSISTANT Unavailable Unavailable LePine, M Tracey PSYCHOLOGIST RESEARCH ASSISTANT Unavailable Unavailable LePine, M Tracey PSYCHOLOGIST RESEARCH ASSISTANT Unavailable Unavailable Le[place]ine, M Tracey PSYCHOLOGIST RESEARCH ASSISTANT Unavailable Unavailable Le[place]ine, M Tracey PSYCHOLOGIST RESEARCH ASSISTANT Unavailable Unavailable LePine, M Tracey PSYCHOLOGIST RESEARCH ASSISTANT Unavailable Unavailable LePine, M Tracey PSYCHOLOGIST RESEARCH ASSISTANT Unavailable Unavailable LePine, M Tracey PSYCHOLOGIST RESEARCH ASSISTANT Unavailable Unavailable LePine, M Tracey PSYCHOLOGIST RESEARCH ASSISTANT Unavailable Unavailable LePine, M Tracey PSYCHOLOGIST RESEARCH ASSISTANT Unavailable Unavailable LePine, M Tracey PSYCHOLOGIST RESEARCH ASSISTANT Unavailable Unavailable Le[place]ine, M Tracey PSYCHOLOGIST RESEARCH ASSISTANT Unavailable Unavailable Le[place]ine, M Tracey PSYCHOLOGIST RESEARCH ASSISTANT Unavailable Unavailable Le[place]ine, M Tracey PSYCHOLOGIST RESEARCH ASSISTANT Unavailable Unavailable LePine, M Tracey PSYCHOLOGIST RESEARCH ASSISTANT Unavailable Unavailable LePine, M Tracey PSYCHOLOGIST RESEARCH ASSISTANT Unavailable Unavailable [place]ine, M Tracey PSYCHOLOGIST RESEARCH ASSISTANT Unavailable Unavailable [place], M Tracey PSYCHOLOGIST RESEARCH ASSISTANT Unavailable Unavailable [place]ine, M Tracey PSYCHOLOGIST RESEARCH ASSISTANT Unavailable Unavailable [place], M Tracey PSYCHOLOGIST RESEARCH ASSISTANT Unavailable Unavailable [place], M Tracey PSYCHOLOGIST RESEARCH ASSISTANT Unavailable Unavailable Le[place]ine, M Tracey PSYCHOLOGIST RESEARCH ASSISTANT Unavailable Unavailable Le[place]ine, M Tracey PSYCHOLOGIST RESEARCH ASSISTANT Unavailable Unavailable Le[place]ine, M Tracey PSYCHOLOGIST RESEARCH ASSISTANT Unavailable Unavailable Le[place]ine, M Tracey PSYCHOLOGIST RESEARCH ASSISTANT Unavailable Unavailable Le[place]ine, M Tracey PSYCHOLOGIST RESEARCH ASSISTANT Unavailable Unavailable Le[place]ine, M Tracey PSYCHOLOGIST RESEARCH ASSISTANT Unavailable Unavailable [place], M Tracey PSYCHOLOGIST RESEARCH ASSISTANT Unavailable Unavailable [place], M Tracey PSYCHOLOGIST RESEARCH ASSISTANT Unavailable Unavailable Jamshid Tapia MD Unavailable Unavailable [...] Bill LOPEZ Unavailable Unavailable White F Bill LOEPZ Unavailable Unavailable White F Bill LOPEZ Unavailable [...] MARLENE PA-C Unavailable Unavailable Pierre, D Apple CONTINUUM OF CARE MANAGER-C Unavailable Unavailable Pierre, D Apple CONTINUUM OF CARE MANAGER-C Unavailable Unavailable Pierre, D Apple CONTINUUM OF CARE MANAGER-C Unavailable Unavailable Pierre, D Apple CONTINUUM OF CARE MANAGER-C Unavailable Unavailable Pierre, D Apple CONTINUUM OF CARE MANAGER-C Unavailable Unavailable Pierre, D Apple CONTINUUM OF CARE MANAGER-C Unavailable Unavailable Pierre, D Apple CONTINUUM OF CARE MANAGER-C Unavailable Unavailable Shayy Reyes MD Unavailable Unavailable [...] KENA PA Unavailable Unavailable Fons, M Tracey CONTINUUM OF CARE MANAGER Unavailable Unavailable Fons, M Tracey CONTINUUM OF CARE MANAGER Unavailable Unavailable Fons, M Tracey CONTINUUM OF CARE MANAGER Unavailable Unavailable Fons, M Tracey CONTINUUM OF CARE MANAGER Unavailable Unavailable Fons, M Tracey CONTINUUM OF CARE MANAGER Unavailable Unavailable Fons, M Tracey CONTINUUM OF CARE MANAGER Unavailable Unavailable Fons, M Tracey CONTINUUM OF CARE MANAGER Unavailable Unavailable Fons, M Tracey CONTINUUM OF CARE MANAGER Unavailable Unavailable Fons, M Tracey CONTINUUM OF CARE MANAGER Unavailable Unavailable Fons, M Tracey CONTINUUM OF CARE MANAGER Unavailable Unavailable Fons, M Tracey CONTINUUM OF CARE MANAGER Unavailable Unavailable Fons, M Tracey CONTINUUM OF CARE MANAGER Unavailable Unavailable Fons, M Tracey CONTINUUM OF CARE MANAGER Unavailable Unavailable Fons, M Tracey CONTINUUM OF CARE MANAGER Unavailable Unavailable Fons, M Tracey CONTINUUM OF CARE MANAGER Unavailable Unavailable Fons, M Tracey CONTINUUM OF CARE MANAGER Unavailable Unavailable Fons, M Tracey CONTINUUM OF CARE MANAGER Unavailable Unavailable Fons, M Tracey CONTINUUM OF CARE MANAGER Unavailable Unavailable Fons, M Tracey CONTINUUM OF CARE MANAGER Unavailable Unavailable Fons, M Tracey CONTINUUM OF CARE MANAGER Unavailable Unavailable Fons, M Tracey CONTINUUM OF CARE MANAGER Unavailable Unavailable Fons, M Tracey CONTINUUM OF CARE MANAGER Unavailable Unavailable Fons, M Tracey CONTINUUM OF CARE MANAGER Unavailable Unavailable Fons, M Tracey CONTINUUM OF CARE MANAGER Unavailable Unavailable Fons, M Tracey CONTINUUM OF CARE MANAGER Unavailable Unavailable Fons, M Tracey CONTINUUM OF CARE MANAGER Unavailable Unavailable Fons, M Tracey CONTINUUM OF CARE MANAGER Unavailable Unavailable Fons, M Tracey CONTINUUM OF CARE MANAGER Unavailable Unavailable Fons, M Tracey CONTINUUM OF CARE MANAGER Unavailable Unavailable Fons, M Tracey CONTINUUM OF CARE MANAGER Unavailable Unavailable Fons, M Tracey CONTINUUM OF CARE MANAGER Unavailable Unavailable Fons, M Tracey CONTINUUM OF CARE MANAGER Unavailable Unavailable Fons, M Tracey CONTINUUM OF CARE MANAGER Unavailable Unavailable Fons, M Tracey CONTINUUM OF CARE MANAGER Unavailable Unavailable Fons, M Tracey CONTINUUM OF CARE MANAGER Unavailable Unavailable Fons, M Tracey CONTINUUM OF CARE MANAGER Unavailable Unavailable Fons, M Tracey CONTINUUM OF CARE MANAGER Unavailable Unavailable Fons, M Tracey CONTINUUM OF CARE MANAGER Unavailable Unavailable Fons, M Tracey CONTINUUM OF CARE MANAGER Unavailable Unavailable Fons, M Tracey CONTINUUM OF CARE MANAGER Unavailable Unavailable Fons, M Tracey CONTINUUM OF CARE MANAGER Unavailable Unavailable Fons, M Tracey CONTINUUM OF CARE MANAGER Unavailable Unavailable Fons, M Tracey CONTINUUM OF CARE MANAGER Unavailable Unavailable Fons, M Tracey CONTINUUM OF CARE MANAGER Unavailable Unavailable Fons, M Tracey CONTINUUM OF CARE MANAGER Unavailable Unavailable Fons, M Tracey CONTINUUM OF CARE MANAGER Unavailable Unavailable Fons, M Tracey CONTINUUM OF CARE MANAGER Unavailable Unavailable Fons, M Tracey CONTINUUM OF CARE MANAGER Unavailable Unavailable Fons, M Tracey CONTINUUM OF CARE MANAGER Unavailable Unavailable Fons, M Tracey CONTINUUM OF CARE MANAGER Unavailable Unavailable Fons, M Tracey CONTINUUM OF CARE MANAGER Unavailable Unavailable Fons, M Tracey CONTINUUM OF CARE MANAGER Unavailable Unavailable Fons, M Tracey CONTINUUM OF CARE MANAGER Unavailable Unavailable [place], V JIA PA-C Unavailable Unavailable Nancy, V JIA PA-C Unavailable Unavailable Nancy, V JIA PA-C Unavailable Unavailable [place], V JIA PA-C Unavailable Unavailable [place], V JIA PA-C Unavailable Unavailable [place], V JIA PA-C Unavailable Unavailable [place], V JIA PA-C Unavailable Unavailable [place], V JIA PA-C Unavailable Unavailable [place], V JIA PA-C Unavailable Unavailable Nancy, V JIA PA-C Unavailable Unavailable [place], V JIA PA-C Unavailable Unavailable [place], V JIA PA-C Unavailable Unavailable [place], V JIA PA-C Unavailable Unavailable Nancy, V [...] is protected by Article 27-F of the [facility] Public Health law. If you continue you may have access to information: Regarding HIV / AIDS; Provided by facilities licensed or operated by the [facility] Office of Mental Health; or Provided by the [facility] Office for People With Developmental Disabilities. If such information is present, then the following [facility] mandated warning applies: This information has [...] law may result in a fine or penitentiary sentence or both. A general authorization for the release of medical or other information is NOT sufficient authorization for further disc losure. Allergies and Adverse Reactions Type Description Substance Reaction Status Data Source(s ) Propensity to adverse reactions MORPHINE Morphine Acti ve [facility] Propensity to adverse reactions ADHESIVE TAPE Adhesive Tape Rash Low Active [facility] Low Family History Family Member Name Family Member Gender Family Member Status Date o f Status Description Data Source(s) Unknown Unknown Problem MEDENT ([facility]) brothers in 40's with OK and survived. Encounters Encounter Providers Location Date Indications Data Source(s ) Outpatient Attender: RUBÉN chance 01/07/2021 11:25:00 AM EST MED[facility] ([facility], [facility]) Razia Valenzuelaalma, ASSET PROTECTION PROFESSIONAL: [id number], [place] [address], Ph. Attender: Razia Hussein [facility] - [facility] - Main Office 12/31/2020 12:00:00 AM EST ATHE NA ([facility]) Razia Alcon Hussein, ASSET PROTECTION PROFESSIONAL: [address], [place] [address], Ph. Attender: Razia Hussein [facility] - Main Office 12/31/2020 12:00:00 AM EST ATHE NA ([facility]) Outpatient Attender: Apple Pierre CONTINUUM OF CARE MANAGER-C Main Office 12/16/2020 02:30:00 PM EDT MEDENT ([facility]) Outpatient Attender: Tenzin GARCIA Physical Therapy 09:30:00 AM EDT MEDENT ([facility]) Office Visit Attender: KENA GARCIA Physical Therapy 2020 01:40:00 PM EDT MED[facility] ([facility]) Outpatient Attender: Ragini GARCIA Main office - [facility] 11/30/2020 01:45:00 PM EDT MED[facility] ([facility]) Outpatient Attender: JOHN PHILLIPS MD Main Office 11/26/2020 10:30:00 AM EDT MED[facility] ([facility]) OFFICE OUTPATIENT VISIT 15 MINUTES Attender: Vivienne PICKENS PA-C Physical Therapy 11/23/2020 11:15:00 AM EDT MEDENT ([facility]) Razia Alcon Hussein, ASSET PROTECTION PROFESSIONAL: [address], [address], [place] [address], Ph. Attender: Razia Hussein [facility] 11/19/2020 12:00:00 AM EDT ATHE NA ([facility]) Razia Hussein, ASSET PROTECTION PROFESSIONAL: [address], [address], [place] [address], Ph. Attender: Razia Hussein [facility] 11/19/2020 12:00:00 AM EDT ATHE NA ([facility]) Razia Hussein, ASSET PROTECTION PROFESSIONAL: [address], [place] [address], Ph. Attender: Razia Hussein [facility] 11/19/2020 12:00:00 AM EDT ATHE NA ([facility]) Outpatient Attender: MARLENE Escalante 0 11/12/2020 02:00:00 PM EDT MEDENT ([facility] ) Outpatient Attender: Tenzin GARCIA Physical Therapy 02:40:00 PM EDT MEDENT ([facility]) Outpatient Attender: MARLENE Escalante 0 11/11/2020 01:40:00 PM EDT MEDENT ([facility] ) Outpatient Attender: MARLENE Escalante 0 11/10/2020 01:40:00 PM EDT MEDENT ([facility] ) Outpatient Attender: BHUPENDRA scott 11/08/2020 01:50:00 PM EDT MED[facility] ([facility]) Outpatient [address] [facility] [address] 11/08/2020 12:00:00 AM EDT eCW1 ([facility]) OFFICE OUTPATIENT VISIT 15 MINUTES Attender: RUBÉN GARCIA Physical Therapy 11/04/2020 02:00:00 PM EDT MEDENT ([facility]) Unknown [address] [facility] [id number] 11/04/2020 12:00:00 AM EDT eCW1 ([facility]) Outpatient Attender: MARLENE Escalante 0 11/01/2020 10:40:00 AM EDT MEDENT ([facility] ) Unknown [address] [facility] [place] [address] 11/01/2020 12:00:00 AM EDT eCW1 ([facility]) Outpatient Attender: Bill Escalante 10/04 11:30:00 AM EDT MEDENT ([facility] ) Outpatient [address] [facility] [place] [address] 09/30/2020 12:00:00 AM EDT eCW1 ([facility]) Unknown [address] [facility] [place] [address] 09/30/2020 12:00:00 AM EDT eCW1 ([facility]) OFFICE OUTPATIENT VISIT 15 MINUTES Attender: KENA GARCIA Phys ical Therapy 09/29/2020 11:00:00 AM EDT MEDENT ([facility]) Outpatient Attender: Tracey BUCKLEY SJP.LEOPOLDO-SJP.LEOPOLDO 12:00:00 AM EDT - 09/28/2020 10:42:21 AM EDT [facility] Outpatient Attender: Ragini GARCIA Main office - [facility] 08/31/2020 10:00:00 AM EDT MEDENT ([facility]) OFFICE OUTPATIENT VISIT 15 MINUTES Attender: KENA GARCIA Phys ical Therapy 08/17/2020 02:30:00 PM EDT MEDENT ([facility]) Outpatient [address] [facility] [place] [id number] 08/16/2020 12:00:00 AM EDT eCW1 ([facility]) (PN Proc 45) Pain Procedure 45 [address] [place] [address] 07/15/2020 12:00:00 AM EDT eCW1 ([facility]) Unknown [address] [facility], [facility] [address] 07/14/2020 12:00:00 AM EDT eCW1 ([facility]) Unknown [address] [facility], [facility] [address] 07/08/2020 12:00:00 AM EDT eCW1 ([facility]) Outpatient Attender: Tracey VASQUEZ-SJPDianeLEOPOLDO 11:10:28 AM EDT - 06/29/2020 12:17:52 PM EDT [facility] Outpatient Attender: Audra Gomes MDAdmitter: Audra us MD [email or web address] 06/22/2020 11:07:00 AM EDT - 06/22/2020 06:00:00 PM EDT [facility] Patient discharged. Unknown [address] [facility] [id number] 06/22/2020 12:00:00 AM EDT eCW1 ([facility]) Outpatient Attender: Tracey VASQUEZ-SJPDianeLEOPOLDO 06/17/2020 12:00:00 AM EDT [facility] Outpatient [address] [facility] [id number] 06/17/2020 12:00:00 AM EDT eCW1 ([facility]) Outpatient Attender: Tracey Araujo FNPReferrer: Tracey MYERS-SJPDianeLEOPOLDO 06/15/2020 10:50:41 AM EDT - 06/15/2020 12:24:30 PM EDT [facility] Outpatient Attender: Tracey Araujo FNPReferrer: Tracey MYERS-SJSue 06/15/2020 10:50:16 AM EDT - 06/15/2020 12:23:33 PM EDT [facility] Outpatient Attender: JOHN PHILLIPS MD Main Office 05/26/2020 10:30:00 AM EDT MEDENT ([facility]) Outpatient Attender: Brant Zamarripa/Kasey/Amrit/Rein dl 05/24/2020 03:15:00 PM EDT MEDENT ([facility]) Outpatient Attender: Ragini GARCIA Main office [facility] 05/24/2020 11:30:00 AM EDT MEDENT ([facility]) Outpatient Attender: Bill Escalante 05/03 03:00:00 PM EDT MEDENT ([facility] ) Outpatient<td ID="encounterTypeDescripti onID0">1 Year Follow-Up</td><td>Pancho Mayorga MD, FACS</td><td>Pancho Mayorga MD [facility]</td><td>04/27/2020</td><td>9:16AM</td><td>04/25/2019 11:59PM</td> <td><content ID="encounterDiagnosisID0-0">Essential Hypertension</content>, <content ID="encounterDiagnosisID0-1">Retinopathy Hypertensive</content>, <content ID="encounterDiagnosisID0-2">Conjunctivitis Chronic Allergic</content>, <content ID="encounterDiagnosisID0-3">Dry Eye Syndrome Both Eyes</content></td> Attender: Pancho Larsen MD, FACS Pnacho Mayorga MD [facility] 04/27/2020 09:16:0 0 AM EST - 04/25/2019 11:59:00 PM EST Retinopathy HypertensiveDry Eye Syndrome Both EyesEssential HypertensionConjunctivitis Chronic Allergic ONG (Pancho Larsen MD [facility]) 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 Attender: Razia Hussein [facility] 03/09/2020 12:00:00 AM EST ATHE NA ([facility]) Razia Hussein, ASSET PROTECTION PROFESSIONAL: [address], [place] [address], Ph. Attender: Razia Hussein [facility] 03/09/2020 12:00:00 AM EST ATHE NA ([facility]) Razia [facility], ASSET PROTECTION PROFESSIONAL: [address], [place] [address], Ph. Attender: Razia Hussein [facility] 03/09/2020 12:00:00 AM EST ATHE NA ([facility]) Razia Richardson [facility], ASSET PROTECTION PROFESSIONAL: [address], [place] [address], Ph. Attender: Razia Hussein [facility] 03/09/2020 12:00:00 AM EST ATHE NA ([facility]) Outpatient Attender: Tracey Escalante 03/05 02:00:00 PM EST MEDENT ([facility] ) Office Visit Attender: Ragini GARCIA [facility] 02/23/2020 09:45:00 AM EST MEDENT ([facility]) Outpatient Attender: Tracey BUCKLEY [email or web address] 01/29/2020 12:00:00 AM EST [facility] Outpatient Attender: Bill Escalante 01/27 10:30:00 AM EST MEDENT ([facility] ) Razia Rondon Jovita, ASSET PROTECTION PROFESSIONAL: [address], [place] [address], Ph. Attender: Razia Hussein [facility] 01/26/2020 12:00:00 AM EST ATHE NA ([facility]) Razia Hussein, ASSET PROTECTION PROFESSIONAL: [address], [place] [address], Ph. Attender: Razia Weatherssoo [facility] 01/26/2020 12:00:00 AM EST ATHE NA ([facility]) Razia Rondon Sarahysoo, ASSET PROTECTION PROFESSIONAL: [address], [place] [address], Ph. Attender: Razia Hussein [facility] 01/26/2020 12:00:00 AM EST ATHE NA ([facility]) Razia Rondon Biancaalma, ASSET PROTECTION PROFESSIONAL: [address], [place] [address], Ph. Attender: Razia Hussein [facility] 01/26/2020 12:00:00 AM EST ATHE NA ([facility]) Razia Hussein, ASSET PROTECTION PROFESSIONAL: [address], [place] [address], Ph. Attender: Razia Jovita [facility] 01/26/2020 12:00:00 AM EST ATHE NA ([facility]) Outpatient Attender: Audra Gomes MDAdmitter: Audra us MD [id number] 01/21/2020 08:39:00 AM EST - 01/23/2020 03:40:00 PM EST [facility] Patient discharged. Outpatient Referrer: Shayy Reyes MD [email or web address] 12/20 12:00:00 AM EST - 01/07/2020 12:39:01 PM EST [facility] Outpatient Attender: Robert Dela Cruz PAConsultant: Bill fisher MD 01/05/2020 11:25:00 AM EST - 01/05/2020 11:25:00 AM EST [facility] Outpatient Attender: Shayy Reyes MD [email or web address] 12/20 12:00:00 AM EST - 12/30/2019 02:49:16 PM EST [facility] Outpatient Attender: JOHN PHILLIPS MD Main Office 12/29/2019 10:00:00 AM EST MEDENT ([facility]) Razia Richardson [facility], ASSET PROTECTION PROFESSIONAL: [address], [facility] [place] [address], Ph. Attender: Razia Weatherssoo [facility] Office 12/15/2019 12:00:00 AM EDT ATHE NA ([facility]) Razia Bryantgabrielle [facility], ASSET PROTECTION PROFESSIONAL: [address], [place] [address], Ph. Attender: Razia Valenzuelaalma [facility] Office 12/15/2019 12:00:00 AM EDT ATHE NA ([facility]) Razia Mannyshannonkimberley Jovita, ASSET PROTECTION PROFESSIONAL: [address], [place] [address], Ph. Attender: Razia Hussein [facility] 12/15/2019 12:00:00 AM EDT ATHAmador NA ([facility]) Razia Hussein, ASSET PROTECTION PROFESSIONAL: [address], [place] [address], Ph. Attender: Razia Hussein [facility] 12/15/2019 12:00:00 AM EDT ATHE NA ([facility]) Razia Hussein, ASSET PROTECTION PROFESSIONAL: [address], [address], [place] [address], Ph. Attender: Razia Hussein [facility] 12/15/2019 12:00:00 AM EDT ATHAmador NA ([facility]) Razia Hussein, ASSET PROTECTION PROFESSIONAL: [address], [place] [address], Ph. Attender: Razia Hussein [facility] 12/15/2019 12:00:00 AM EDT ATHAmador PEASRON ([facility]) Outpatient Attender: MARLENE Cee 11:00:00 AM EDT MEDENT ([facility] ) Immunizations Vaccine Date Status Description Data Source(s) COVID-19 VACCINE Pfizer 12/11/2020 12:00:00 AM EDT completed [facility] Vaccine Series Complete: YESThis Data wa s Submitted to [facility] Via [employer]. COVID-19 VACCINE Pfizer 04/17/2020 12:00:00 AM EST completed [facility] Vaccine Series Complete: YESThis Data wa s Submitted to [facility] Via [employer]. COVID-19 VACCINE Pfizer 03/27/2020 12:00:00 AM EST completed [facility] Vaccine Series Complete: NOThis Data was Submitted to [facility] Via [employer]. Pneumococcal conjugate PCV 13 11/24/2019 09:57:00 AM EDT completed MEDENT ([facility]) This CVX code allows reporting of a vacc ination when formulation is unknown (for example, when recording a Influenza vaccination when noted on a vaccination card) 11/24/2019 09:56:00 AM EDT completed MEDEN T ([facility]) Medications Medication Brand Name Start Date Product Form Dose Route Admi nistrative Instructions Pharmacy Instructions Status Indications Reaction Description Data Source(s) Amoxicillin 875 MG Oral Tablet Amoxicillin 01/07/2021 12:00:00 AM EST active MEDENT ([facility]) Cephalexin 500 MG Oral Tablet Cephalexin 11/08/2020 12:00:00 AM EDT ORAL completed MEDENT ([facility]) onabotulinumtoxinA 100 UNT/ML Injectable Solution [Bot ox] Botox 100 UNIT Botox 100 UNIT 11/01/2020 12:00:00 AM EDT active Botox 100 UNIT eCW1 ([facility]) onabotulinumtoxinA 100 UNT/ML Injectable Solution [Bot ox] Botox 100 UNIT Botox 100 UNIT 11/01/2020 12:00:00 AM EDT active Botox 100 UNIT eCW1 ([facility]) onabotulinumtoxinA 100 UNT/ML Injectable Solution [Bot ox] Botox 100 UNIT Botox 100 UNIT 11/01/2020 12:00:00 AM EDT active Botox 100 UNIT eCW1 ([facility]) Ciprofloxacin 500 MG Oral Tablet Ciprofloxacin HCL 10/21/2020 12:00 :00 AM EDT ORAL completed MEDENT ([facility]) gabapentin 400 MG Oral Capsule Gabapentin 10/15/2020 12:00:00 AM EDT active Gabapentin MEDENT ([facility]) Xray Right Foot 08/31/2020 12:00:00 AM EDT co mpleted MEDENT ([facility]) onabotulinumtoxinA 100 UNT/ML Injectable Solution [Bot ox] Botox 100 UNIT Botox 100 UNIT 07/08/2020 12:00:00 AM EDT active Botox 100 UNIT eCW1 ([facility]) onabotulinumtoxinA 100 UNT/ML Injectable Solution [Bot ox] Botox 100 UNIT Botox 100 UNIT 07/08/2020 12:00:00 AM EDT active Botox 100 UNIT eCW1 ([facility]) onabotulinumtoxinA 100 UNT/ML Injectable Solution [Bot ox] Botox 100 UNIT Botox 100 UNIT 07/08/2020 12:00:00 AM EDT suspended Botox 100 UNIT eCW1 ([facility]) onabotulinumtoxinA 100 UNT/ML Injectable Solution [Bot ox] Botox 100 UNIT Botox 100 UNIT 07/08/2020 12:00:00 AM EDT active Botox 100 UNIT eCW1 ([facility]) onabotulinumtoxinA 100 UNT/ML Injectable Solution [Bot ox] Botox 100 UNIT Botox 100 UNIT 07/08/2020 12:00:00 AM EDT active Botox 100 UNIT eCW1 ([facility]) onabotulinumtoxinA 100 UNT/ML Injectable Solution [Bot ox] Botox 100 UNIT Botox 100 UNIT 07/08/2020 12:00:00 AM EDT active Botox 100 UNIT eCW1 ([facility]) onabotulinumtoxinA 100 UNT/ML Injectable Solution [Bot ox] Botox 100 UNIT Botox 100 UNIT 07/08/2020 12:00:00 AM EDT suspended Botox 100 UNIT eCW1 ([facility]) onabotulinumtoxinA 100 UNT/ML Injectable Solution [Bot ox] Botox 100 UNIT Botox 100 UNIT 07/08/2020 12:00:00 AM EDT active eCW1 ([facility]) onabotulinumtoxinA 100 UNT/ML Injectable Solution [Bot ox] Botox 100 UNIT Botox 100 UNIT 07/08/2020 12:00:00 AM EDT active Botox 100 UNIT eCW1 ([facility]) Lisinopril 20 MG Oral Tablet Lisinopril 07/02/2020 12:00:00 AM EDT ORAL active MEDENT ([facility]) Lisinopril 20 MG Oral Tablet lisinopril (PRINIVIL,ZEST RIL) 20 MG tablet lisinopril (PRINIVIL,ZESTRIL) 20 MG tablet 06/24/2020 12:00:00 AM EDT 20 mg Oral active Take 1 tablet (20 mg total) by mouth daily [facility] sodium chloride 0.9% (NS) infusion [id number] 06/22/2020 03:00:00 P M EDT Intravenous active at 100 mL/hr, Intravenous, Continuous, Starting on Sun06/22/20 at 1500, For 4 hours, Post-op [facility] Medication administered onsite normal saline flush 0.9 % injection 3 mL [id number] 06/22/2020 03:00:00 PM EDT 3 mL Intravenous active 3 mL , Intravenous, PROTOCOL, First dose on Sun06/22/20 at 1500, Pre-op
flush per protocol, D/C Main IV fluid if appropriate
[facility] Medication administered onsite Nitroglycerin 0.4 MG Sublingual Tablet n itroglycerin (NITROSTAT) SL tablet 0.4 mg nitroglycerin (NITROSTAT) SL tablet 0.4 mg 06/22/2020 02:18:36 P M EDT 0.4 mg Sublingual active 0.4 mg, S ublingual, Every 5 min PRN, chest pain, Starting on Sun06/22/20 at 1418, Post-op
May administer every 5 minutes for 3 doses and call cardio lab MD.
[facility] Medication administered onsite 10 ML Atropine [...] or 0.04 mg/kg. Max of 6 doses
[facility] Medication administered onsite normal saline flush 0.9 % injection 3 mL [id number] 06/22/2020 02:00:00 PM EDT 3 mL Intravenous active 3 mL , Intravenous, Every 8 hours (scheduled), First dose on Sun06/22/20 at 1400, Pre-op
Rapid push positive pressure flushing shall be performed with a 10 cc normal saline syringe to check the PATENCY of a PIV site prior to any infusion therapy initiation unless resistance is met.
[facility] Medication administered onsite normal saline flush 0.9 % injection 3 mL [id number] 06/22/2020 02:00:00 PM EDT 3 mL Intravenous active 3 mL , Intravenous, Every 8 hours (scheduled), First dose on Sun06/22/20 at 1400, Pre-op
Rapid push positive pressure flushing shall be performed with a 10 cc normal saline syringe to check the PATENCY of a PIV site prior to any infusion therapy initiation unless resistance is met.
[facility] Medication administered onsite clopidogrel 75 MG Oral Tablet clopidogrel (PLAVIX) tab let clopidogrel (PLAVIX) tablet 06/22/2020 01:43:32 PM EDT active As needed, Starting on Sun06/22/20 at 1343, Intra-Procedure [facility] Medication administered onsite iopamidol (ISOVUE-370) 76 % [id number] 06/22/2020 01:39:07 PM EDT active As needed, Starting on Sun06/22/20 at 1339, Intra-Proce dure [facility] Medication administered onsite 1 ML heparin sodium, porcine 1000 UNT/ML Injection hep nataliya (porcine) injection heparin (porcine) injection 06/22/2020 01:24:36 PM EDT active As needed, Starting on Sun06/22/20 at 1324, Intra-Procedure [facility] Medication administered onsite lidocaine 1 % injection [id number] 06/22/2020 01:19:50 PM EDT active As needed, Starting on Sun 1 at 1319, Intra-Procedure [facility] Medication administered onsite fentaNYL Citrate (PF) (SUBLIMAZE) injection [id number] 06/22/2020 01:12:36 PM EDT active As neede d, Starting on Sun06/22/20 at 1312, Intra-Procedure [facility] Medication administered onsite 2 ML Midazolam 1 MG/ML Injection midazolam (VERSED) in jection midazolam (VERSED) injection 06/22/2020 01:12:17 PM EDT active As needed, Starting on Sun06/22/20 at 1312, Intra-Procedure [facility] Medication administered onsite Aspirin 325 MG [...] home. Max of 1 dose per day.
[facility] Medication administered onsite sodium chloride 0.9% (NS) infusion [id number] 06/22/2020 01:00:00 PM EDT 100 mL/h Intravenous active at 100 m L/hr, 100 mL/hr, Intravenous, Continuous, Starting on Sun06/22/20 at 1300, Pre-op
Start two hours prior to scheduled start time
[facility] Medication administered onsite Diphenhydramine Hydrochloride 50 MG Oral Capsule diphenhydrAMINE (BENADRYL) capsule 50 mg diphenhydrAMINE (BENADRYL) capsule 50 mg 06/22/2020 01 :00:00 PM EDT 50 mg Oral completed 50 mg, Oral, associate director, On Sun06/22/20 at 1300, For 1 dose, Pre-op [facility] Medication administered onsite clopidogrel 75 MG Oral Tablet clopidogrel (PLAVIX) 75 MG tablet clopidogrel (PLAVIX) 75 MG tablet 06/22/2020 12:00:00 AM EDT 75 mg Oral active Take 1 tablet (75 mg total) by mouth daily [facility] 24 HR Isosorbide Mononitrate 30 MG Exten ded Release Oral Tablet isosorbide mononitrate (IMDUR) 30 MG 24 hr tablet isosorbide mononitrate (IMDUR) 30 MG 24 hr tablet 06/16/2020 12:00:00 AM EDT active TAKE ONE TABLET BY MOUTH EVERY DAY [facility] Lisinopril 20 MG Oral Tablet lisinopril (PRINIVIL,ZEST RIL) 20 MG tablet lisinopril (PRINIVIL,ZESTRIL) 20 MG tablet 06/15/2020 12:00:00 AM EDT 20 mg Oral aborted Take 1 tablet (20 mg total) by mouth daily [facility] prednisolone acetate 10 MG/ML Ophthalmic Suspension prednisoLONE acetate (PRED FORTE) 1 % ophthalmic suspension prednisoLONE acetate (PRED FORTE) 1 % ophthalmic suspension 05/28/2020 12:00:00 AM EDT 1 [drp] active Administer 1 drop to both eyes as needed [facility] Fluticasone Propionate Fluticasone Propionate 05/26/2020 12:00:00 AM E DT active MEDENT ([facility]) Isosorbide Dinitrate 30 MG Oral Tablet Isosorbide Dinitrate 05/26/2020 12:00:00 AM EDT ORAL active MEDENT ([facility] Bisoprolol Fumarate 10 MG Oral Tablet Bisoprolol Fumarate 12:00:00 AM EDT ORAL active MED[facility] ([facility] clopidogrel 75 MG Oral Tablet clopidogrel (PLAVIX) 75 MG tablet clopidogrel (PLAVIX) 75 MG tablet 05/19/2020 12:00:00 AM EDT 75 mg Oral aborted Take 1 tablet (75 mg total) by mouth daily [facility] atorvastatin 80 MG Oral Tablet atorvastatin (LIPITOR) 80 MG tablet atorvastatin (LIPITOR) 80 MG tablet 04/28/2020 12:00:00 AM EST 80 mg Oral active Take 1 tablet (80 mg total) by mouth daily [facility] Bisoprolol Fumarate 10 MG Oral Tablet bisoprolol (ZEBE TA) 10 MG tablet bisoprolol (ZEBETA) 10 MG tablet 04/28/2020 12:00:00 AM EST active TAKE ONE TABLET BY MOUTH EVERY DAY [facility] gabapentin 400 MG Oral Capsule Gabapentin 400 MG Oral Capsule Gabapentin 400 MG Oral Capsule 04/27/2020 12:00:00 AM EST 1 activ e gabapentin 400 MG Oral Capsule JERI (Pancho Larsen MD [facility]) 24 HR Isosorbide Mononitrate 30 MG Exten ded Release Oral Tablet Isosorbide Mononitrate ER 30 MG Oral Tablet Extended Release 24 Hour Isosorbide Mononitrate ER 30 MG Oral Tablet Extended Release 24 Hour 04/27/2020 12:00:00 AM EST 1 active 24 HR isosorbide mononitr ate 30 MG Extended Release Oral Tablet JERI (Pancho Larsen MD [facility]) Bisoprolol Fumarate 10 MG Oral Tablet Bisoprolol Fumarate 10 MG Oral Tablet 04/27/2020 12:00:00 AM EST 1 active bisoprolol fumarate 10 MG Oral Tablet JERI (Pancho Larsen MD [facility]) prednisolone acetate 10 MG/ML Ophthalmic Suspension prednisoLONE Acetate 1% Ophthalmic Suspension prednisoLONE Acetate 1% Ophthalmic Suspension 04/28/19 12:00:00 AM EST active prednisolone acetate 10 MG/ML Ophthalmic Suspension JERI (Pancho Larsen MD [facility]) Lisinopril 10 MG Oral Tablet Lisinopril 10 MG Oral Tablet 12:00:00 AM EST 1 active lisinopril 10 MG Oral Tablet JERI (Pancho Larsen MD [facility]) atorvastatin 80 MG Oral Tablet [Lipitor] Lipitor 80 MG Oral Tablet Lipitor 80 MG Oral Tablet 04/27/2020 12:00:00 AM EST 1 activ e atorvastatin 80 MG Oral Tablet [Lipitor] JERI (Pancho Larsen MD [facility]) Trazodone Hydrochloride 100 MG Oral Tablet traZODone H Cl 100 MG Oral Tablet traZODone HCl 100 MG Oral Tablet 04/27/2020 12:00:00 AM EST 1 active trazodone hydrochloride 100 MG Oral Tablet JERI (Vashti Larsen MD [facility]) gabapentin 600 MG Oral Tablet Gabapentin 600 MG Oral T ablet Gabapentin 600 MG Oral Tablet 04/27/2020 12:00:00 AM EST 1 active gabapentin 600 MG Oral Tablet JERI (Pancho Larsen MD [facility]) 75 mg 04/20/2020 12:00:00 AM EST tablet 30 TAKE ONE TABLET BY MOUTH EVERY DAY TAKE ONE TABLET BY MOUTH EVERY DAY SOLD: 04/20/2020 [facility] Covid-19 vaccine, Unspecified 04/17/2020 12:00:00 AM EST completed [facility] ([facility] Medication administered onsite Covid-19 vaccine, Unspecified 03/27/2020 12:00:00 AM EST completed [facility] ([facility] Medication administered onsite Lisinopril 10 MG Oral Tablet lisinopril (PRINIVIL,ZEST RIL) 10 MG tablet lisinopril (PRINIVIL,ZESTRIL) 10 MG tablet 03/11/2020 12:00:00 AM EST 10 mg Oral active Take 1 tablet (10 mg total) by mouth daily [facility] 120 ACTUAT Fluticasone propionate 0.23 M G/ACTUAT / salmeterol 0.021 MG/ACTUAT Metered Dose Inhaler [Advair] ADVAIR HFA 230-21 MCG/ACT inhaler ADVAIR HFA 230- 21 MCG/ACT inhaler 03/06/2020 12:00:00 AM EST 2 {puff} Inhalation active Inhale 2 puffs 2 (two) times a day [facility] NITROFURANTOIN, MACROCRYSTALS 25 MG / Ni [...] Gabapentin 02/16/2020 12:00:00 AM EST active MEDENT ([facility] ) gabapentin 400 MG Oral Capsule Gabapentin 01/30/2020 12:00:00 AM EST active MEDENT ([facility] ) Bisoprolol Fumarate 10 MG Oral Tablet bisoprolol (ZEBE TA) 10 MG tablet bisoprolol (ZEBETA) 10 MG tablet 01/29/2020 12:00:00 AM EST 10 mg Oral active Take 1 tablet (10 mg total) by m outh daily [facility] atorvastatin 80 MG Oral Tablet atorvastatin (LIPITOR) 80 MG tablet atorvastatin (LIPITOR) 80 MG tablet 01/29/2020 12:00:00 AM EST 80 mg Oral active Take 1 tablet (80 mg total) by mouth daily [facility] 24 HR Isosorbide Mononitrate 30 MG Exten ded Release Oral Tablet isosorbide mononitrate (IMDUR) 30 MG 24 hr tablet isosorbide mononitrate (IMDUR) 30 MG 24 hr tablet 01/24/2020 12:00:00 AM EST 30 mg Oral active Take 1 tablet (30 mg total) by mouth daily [facility] Bisoprolol Fumarate 5 MG Oral Tablet bisoprolol (ZEBET A) 5 MG tablet bisoprolol (ZEBETA) 5 MG tablet 01/24/2020 12:00:00 AM EST 5 mg Oral aborted Take 1 tablet (5 mg total) by mouth daily [facility] Lisinopril 5 MG Oral Tablet lisinopril (PRINIVIL,ZESTR IL) 5 MG tablet lisinopril (PRINIVIL,ZESTRIL) 5 MG tablet 01/23/2020 12:00:00 AM EST 5 mg O ral aborted Take 1 tablet (5 mg total) by mo [facility] daily [facility] clopidogrel 75 MG Oral Tablet clopidogrel (PLAVIX) 75 MG tablet clopidogrel (PLAVIX) 75 MG tablet 01/23/2020 12:00:00 AM EST 75 mg Oral completed Take 1 tablet (75 mg total) by mouth daily [facility] iopamidol (ISOVUE-370) 76 % 70 mL [id number] 01/22/2020 09:48:[address] 70 mL Intravenous completed 70 mL, Intrav enous, Once in imaging, contrast, Starting Nivia 01/22/20 at 2148, For 1 dose [facility] Medication administered onsite 24 HR Isosorbide Mononitrate 30 MG Exten ded Release Oral Tablet isosorbide mononitrate (IMDUR) 24 hr tablet 30 mg isosorbide mononitrate (IMDUR) 24 hr tablet 30 mg 01/22/2020 02:00:00 PM EST 30 mg Oral activ e 30 mg, Oral, Daily, First dose on Sun01/22/20 at 1400
Hold for SBP <100
[facility] Medication administered onsite Bisoprolol Fumarate 5 MG Oral Tablet bisoprolol (ZEBET A) tablet 5 mg bisoprolol (ZEBETA) tablet 5 mg 01/22/2020 02:00:00 PM EST 5 mg Oral active 5 mg, Oral, Daily, First dose on Sun01/22/20 at 1400 [facility] Medication administered onsite Aspirin 81 MG Delayed Release Oral Tablet aspirin EC t ablet 81 mg aspirin EC tablet 81 mg 01/22/2020 09:00:00 AM EST 81 mg Oral activ e 81 mg, Oral, Daily, First dose on Sun01/22/20 at 0900 [facility] Medication administered onsite gabapentin 800 MG Oral Tablet gabapentin (NEURONTIN) t ablet 400 mg gabapentin (NEURONTIN) tablet 400 mg 01/22/2020 09:00:00 AM EST 400 mg Oral active 400 mg, Oral, Daily, First dose on Sun01/22/20 at 0900 [facility] Medication administered onsite Famotidine (PEPCID) injection 20 mg [id number] 01/21/2020 11:00:0 0 PM EST 20 mg Intravenous completed 20 mg, I ntravenous, Once, Sun01/21/20 at 2300, For 1 dose
Refrigerated only product. Located in med refrigerator on unit. Dilute with sodium chloride 0.9% to equal 10 ml. Administration Rate = 20mg/2 minutes
[facility] Medication administered onsite Baclofen 10 MG Oral Tablet baclofen (LIORESAL) tablet 10 mg baclofen (LIORESAL) tablet 10 mg 01/21/2020 09:00:00 PM EST 10 mg Oral activ e 10 mg, Oral, 2 times daily, First dose on Sun01/21/20 at 2100 [facility] Medication administered onsite Cyclosporine 0.5 MG/ML Ophthalmic Suspen jag cycloSPORINE (RESTASIS) 0.05 % ophthalmic emulsion 1 drop cycloSPORINE (RESTASIS) 0.05 % ophthalmi c emulsion 1 drop 01/21/2020 09:00:00 PM EST 1 [drp] active 1 drop, Both Eyes, 2 times daily, First dose on Sun01/21/20 at 2099
For administration and preparation considerations, refer to Hazardous Drugs in the Workplace Policy on Intr[employer].
[facility] Medication administered onsite fluticasone (FLONASE) 50 MCG/ACT nasal spray 1 spray [id number] 01/21/2020 09:00:00 PM EST 1 {spray} active 1 spray, Each Nare, 2 times daily, First dose on Sun01/21/20 at 2099 [facility] Medication administered onsite lidocaine (ASPERCREME) 4 % 2 patch [id number] 01/21/2020 09:00:00 PM EST 2 {patch} Transdermal active 2 patch, Gusman sdermal, Administer over 12 Hours, Every 24 hours (relative), First dose on Sun01/21/20 at 2099 [facility] Medication administered onsite Nortriptyline 25 MG Oral Capsule nortriptyline (PAMELO R) capsule 25 mg nortriptyline (PAMELOR) capsule 25 mg 01/21/2020 09:00:00 PM EST 25 m g Oral active 25 mg, Oral, Nightly, First dose on Sun01/21/20 at 2099 [facility] Medication administered onsite montelukast 10 MG Oral Tablet montelukast (SINGULAIR) tablet 10 mg montelukast (SINGULAIR) tablet 10 mg 01/21/2020 09:00:00 PM EST 10 mg Oral active 10 mg, Oral, Nightly, First dose on Sun01/21/20 at 2099 [facility] Medication administered onsite pantoprazole 40 MG Delayed Release Oral Tablet pantoprazole (PROTONIX) EC tablet 40 mg pantoprazole (PROTONIX) EC tablet 40 mg 01/21/2020 09:00:[address] 40 mg Oral active Gastroesophageal Reflux Diseas e 40 mg, Oral, 2 times daily, Indications: Gastroesophageal Reflux Disease, First dose on Sun01/21/20 at 2099 [facility] Gastroesophageal Reflux Disease Medication administered onsite [...] should NOT be administered via feeding tubes.
[facility] Medication administered onsite traZODone (DESYREL) tablet 150 mg 01/21/2020 09:00:00 PM EST 150 mg Oral active 150 mg, Oral, Nightly, First dose on Sun01/21/20 at 2100 [facility] Medication administered onsite topiramate 100 MG Oral Tablet topiramate (TOPAMAX) tab let 100 mg topiramate (TOPAMAX) tablet 100 mg 01/21/2020 09:00:00 PM EST 100 mg Oral active 100 mg, Oral, 2 times daily, First dose on Sun01/21/20 at 2100
For administration and preparation considerations, refer to Hazardous Drugs in the Workplace Policy on Intranet.
[facility] Medication administered onsite gabapentin 300 MG Oral Capsule gabapentin (NEURONTIN) capsule 600 mg gabapentin (NEURONTIN) capsule 600 mg 01/21/2020 09:00:00 PM EST 600 mg Oral active 600 mg, Oral, Nightly, First dose on Sun01/21/20 at 2100 [facility] Medication administered onsite carvedilol 25 MG Oral Tablet carvedilol (COREG) tablet 25 mg carvedilol (COREG) tablet 25 mg 01/21/2020 06:00:00 PM EST 25 mg Oral abort ed 25 mg, Oral, 2 times daily with meals, First dose on Sun01/21/20 at 1800 [facility] Medication administered onsite Sertraline 50 MG Oral Tablet sertraline (ZOLOFT) table t 50 mg sertraline (ZOLOFT) tablet 50 mg 01/21/2020 06:00:00 PM EST 50 mg Oral active 50 mg, Oral, Daily, First dose on Sun01/21/20 at 1800 [facility] Medication administered onsite Ipratropium [place] 0.2 MG/ML Inhalant S olution ipratropium (ATROVENT) 0.02 % nebulizer solution 0.5 mg ipratropium (ATROVENT) 0.02 % nebulizer solution 0.5 mg 01/21/2020 04:00:00 PM EST 0.5 mg active 0.5 mg, Nebulization, 4 times daily, First dose on Sun01/21/20 at 1600 [facility] Medication administered onsite atorvastatin 40 MG Oral Tablet atorvastatin (LIPITOR) tablet 40 mg atorvastatin (LIPITOR) tablet 40 mg 01/21/2020 02:00:00 PM EST 40 mg Oral active 40 mg, Oral, Daily, First dose on Sun01/21/20 at 1400 [facility] Medication administered onsite clopidogrel 75 MG Oral Tablet clopidogrel (PLAVIX) tab let 75 mg clopidogrel (PLAVIX) tablet 75 mg 01/21/2020 02:00:00 PM EST 75 mg Oral active 75 mg, Oral, Daily, First dose on Sun01/21/20 at 1400 [facility] Medication administered onsite 60 ACTUAT formoterol fumarate 0.005 MG/A CTUAT / mometasone furoate 0.2 MG/ACTUAT Metered Dose Inhaler mometasone-formoterol (DULERA) 200-5 MCG/ACT inhaler 2 puff mometasone-formoterol (DULERA) 200-5 MCG/ACT inhaler 2 puff 01/21/2020 02:00:00 PM EST 2 {puff} Inhalation active 2 puff, Inhalation, 2 times daily, First dose on Sun01/21/20 at 1400 [facility] Medication administered onsite Nitroglycerin 0.4 MG Sublingual Tablet n itroglycerin (NITROSTAT) SL tablet 0.4 mg nitroglycerin (NITROSTAT) SL tablet 0.4 mg 01/21/2020 01:13:58 P M EST 0.4 mg Sublingual active 0.4 mg, S ublingual, Every 5 min PRN, chest pain, Starting Sun01/21/20 at 1313, Post-op
May administer every 5 minutes for 3 doses and call cardio lab MD.
[facility] Medication administered onsite Acetaminophen 325 MG Oral Tablet acetaminophen (TYLENO L) 325 MG tablet 650 mg acetaminophen (TYLENOL) 325 MG tablet 650 mg 01/21/2020 01:13:58 PM EST 650 mg Oral active 650 mg, Or al, Every 4 hours PRN, headaches, and non cardiac pain, Starting Sun01/21/20 at 1313, Post-op
"Maximum dose of acetaminophen is 4,000 mg from all sources in 24 hours."
[facility] Medication administered onsite Acetaminophen 325 MG / Oxycodone Hydroch loride 5 MG Oral Tablet oxyCODONE- acetaminophen (PERCOCET) 5-325 MG 1 tablet oxyCODONE-acetaminophen (PERCOCET) 5- 325 MG 1 tablet 01/21/2020 12:58:31 PM EST 1 {tbl} Oral a ctive 1 tablet, Oral, Every 8 hours PRN, moderate pain (4-6), Starting Sun01/21/20 at 1258, For 7 days [facility] Medication administered onsite Albuterol 0.83 MG/ML Inhalant Solution a lbuterol (PROVENTIL) nebulizer solution 2.5 mg albuterol (PROVENTIL) nebulizer solution 2.5 mg 2019 12:57:10 PM EST 2.5 mg active 2.5 mg, Nebulization, RT every 4 hours as needed, shortness of breath, Starting Sun01/21/20 at 1257 [facility] Medication administered onsite sodium chloride 0.9% (NS) infusion 2874-5714-37 01/21/2020 10:00:00 AM EST 100 mL/h Intravenous active at 100 m L/hr, 100 mL/hr, Intravenous, Continuous, Starting Sun01/21/20 at 1000, Pre-op
Start two hours prior to scheduled start time
[facility] Medication administered onsite Aspirin 325 MG [...] home. Max of 1 dose per day.
[facility] Medication administered onsite Diphenhydramine Hydrochloride 50 MG Oral Capsule diphenhydrAMINE (BENADRYL) capsule 50 mg diphenhydrAMINE (BENADRYL) capsule 50 mg 01/21/2020 10 :00:00 AM EST 50 mg Oral completed 50 mg, Oral, associate director, Sun01/21/20 at 1000, For 1 dose, Pre-op [facility] Medication administered onsite Trazodone Hydrochloride 100 MG Oral Tablet traZODone ( DESYREL) 100 MG tablet traZODone (DESYREL) 100 MG tablet 01/08/2020 12:00:00 AM EST 100 mg active 100 mg nightly [facility] clopidogrel 75 MG Oral Tablet clopidogrel (PLAVIX) 75 MG tablet clopidogrel (PLAVIX) 75 MG tablet 12/30/2019 12:00:00 AM EST 75 mg Oral aborted Take 1 tablet (75 mg total) by mouth daily [facility] 120 ACTUAT Fluticasone propionate 0.23 M G/ACTUAT / salmeterol 0.021 MG/ACTUAT Metered Dose Inhaler [Advair] ADVAIR HFA 230-21 MCG/ACT inhaler ADVAIR HFA 230- 21 MCG/ACT inhaler 12/09/2019 12:00:00 AM EDT 1 {inhaler} Oral aborted Take 1 Inhaler by mouth 2 (two) times a day [facility] gabapentin 600 MG Oral Tablet gabapentin (NEURONTIN) 6 00 MG tablet gabapentin (NEURONTIN) 600 MG tablet 11/11/2019 12:00:00 AM EDT aborted [facility] montelukast 10 MG Oral Tablet MONTELUKAST [...] 2 (two) times a day with meals [facility] atorvastatin 40 MG Oral Tablet [Lipitor] Lipitor 40 MG Oral Tablet Lipitor 40 MG Oral Tablet 04/25/2019 12:00:00 AM EST 1 abort ed atorvastatin 40 MG Oral Tablet [Lipitor] JERI (Pancho Larsen MD [facility]) carvedilol 25 MG Oral Tablet Carvedilol 25 MG Oral Tab let Carvedilol 25 MG Oral Tablet 04/25/2019 12:00:00 AM EST 1 aborted carvedilol 25 MG Oral Tablet JERI (Pancho Larsen MD [facility]) fluticasone (FLONASE) 50 MCG/ACT nasal spray [id number] 02/22/2019 12:00:00 AM EST aborted [facility] Lisinopril 2.5 MG Oral Tablet Lisinopril 2.5MG Oral Ta blet Lisinopril 2.5MG Oral Tablet 04/16/2018 12:00:00 AM EST 1 aborted lisinopril 2.5 MG Oral Tablet JERI (Pancho Larsen MD [facility]) loteprednol etabonate 0.005 MG/MG Ophtha lmic Ointment [Lotemax] Lotemax 0.5% Ophthalmic Ointment Lotemax 0.5% Ophthalmic Ointment 02/08/2018 12:00:00 AM EST aborted loteprednol etab karlie 0.005 MG/MG Ophthalmic Ointment [Lotemax] JERI (Pancho Larsen MD [facility]) Lisinopril 2.5 MG Oral Tablet lisinopril (PRINIVIL,ZES TRIL) 2.5 MG tablet lisinopril (PRINIVIL,ZESTRIL) 2.5 MG tablet 05/17/2016 12:00:00 AM EDT 2.5 mg Oral aborted Take 2.5 mg by mouth daily [facility] atorvastatin 40 MG Oral Tablet atorvastatin (LIPITOR) 40 MG tablet atorvastatin (LIPITOR) 40 MG tablet 03/17/2016 12:00:00 AM EST aborted LIPITOR 40 MG TABS [facility] Melatonin 10 MG Oral Tablet Melatonin 10 MG TABS Melatonin 1 0 MG TABS 03/17/2016 12:00:00 AM EST 10 mg Oral aborted Take 1 0 mg by mouth daily [facility] alcaftadine 2.5 MG/ML Ophthalmic Solutio n [Lastacaft] Lastacaft 0.25% Ophthalmic Solution Lastacaft 0.25% Ophthalmic Solution 01/20/2016 12:00:00 AM EST 1 aborted alcaftadine 2.5 MG/ML Oph thalmic Solution [Lastacaft] JERI (Pancho Larsen MD [facility]) gabapentin 400 MG Oral Capsule Gabapentin 400 MG Capsu le Gabapentin 400 MG Capsule 11/03/2014 12:00:00 AM EDT 1 aborted gabapentin 400 MG Oral Capsule JERI (Pancho Larsen MD [facility]) Trazodone Hydrochloride 50 MG Oral Tablet traZODone HC l 50 MG OR TABS traZODone HCl 50 MG OR TABS 01/12/2014 12:00:00 AM EST 3 aborted trazodone hydrochloride 50 MG Oral Tablet JERI (Pancho Larsen MD [facility]) tramadol hydrochloride 50 MG Oral Tablet tramadol 50 mg tablet Take 3 tablets every day by oral route at bedtime. tramadol 50 mg tablet Take 3 tablets coral ry day by oral route at bedtime. 3 complete d tramadol hydrochloride [address] ([facility]) Lisinopril 2.5 MG Oral Tablet lisinopril 2.5 mg tablet lisin opril 2.5 mg tablet completed lisinopril 2.[address] ([facility]) Bisoprolol Fumarate 5 MG Oral Tablet bis oprolol fumarate 5 mg tablet Take 1 tablet every day by oral route. bisoprolol fumarate 5 mg tablet Take 1 t ablet every day by oral route. 1 completed bisoprolol fumarate [address] ([facility]) Diclofenac Sodium 0.01 MG/MG Topical Gel Diclofenac So dium 1 % GEL Diclofenac Sodium 1 % GEL aborted diclofena c 1 % topical gel [facility] Ibuprofen 600 MG Oral Tablet ibuprofen 6 00 mg tablet Take 1 tablet twice a day by oral route for 10 days. ibuprofen 600 mg tablet Take 1 tablet tw ice a day by oral route for 10 days. 1 completed ibuprofen [address] ([facility]) Acetaminophen 325 MG / Hydrocodone Miranda trate 5 MG Oral Tablet hydrocodone 5 mg- acetaminophen 325 mg tablet hydrocodone 5 mg-acetaminophen 325 mg tablet completed acetaminophen 325 MG / hydrocodone bitartrate [address] ([facility]) atorvastatin 40 MG Oral Tablet atorvastatin 40 mg tabl et atorvastatin 40 mg tablet completed atorvastatin [address] ([facility]) Ondansetron 4 MG Oral Tablet ondansetron HCl 4 mg tabl et ondansetron HCl 4 mg tablet completed ondansetron 4 M G Oral Tablet COURT ([facility]) Oxycodone Hydrochloride 5 MG Oral Tablet oxycodone 5 m g tablet oxycodone 5 mg tablet completed oxycodone hydro chloride [address] ([facility]) Oxycodone Hydrochloride 5 MG Oral Tablet oxyCODONE (ROXICODONE) 5 MG immediate release tablet oxyCODONE (ROXICODONE) 5 MG immediate release tablet aborted oxycodone 5 mg tablet [facility] atorvastatin 40 MG Oral Tablet atorvastatin 40 mg tabl et atorvastatin 40 mg tablet completed atorvastatin [address] ([facility]) Trazodone Hydrochloride 50 MG Oral Tablet trazodone 50 mg tablet trazodone 50 mg tablet completed trazodone hydr ochloride [address] ([facility]) Lisinopril 5 MG Oral Tablet lisinopril 5 mg tablet lisinopril 5 mg ta blet completed lisinopril [address] ([facility]) Lisinopril 5 MG Oral Tablet lisinopril 5 mg tablet lisinopril 5 mg ta blet completed lisinopril [address] ([facility]) Lisinopril 2.5 MG Oral Tablet lisinopril 2.5 mg tablet lisin opril 2.5 mg tablet completed lisinopril 2.[address] ([facility]) fluticasone propionate 50 mcg/actuation nasal spray,suspension [id number] completed fluticasone propionate 0.05 MG/ACTUAT Metered Dose Nasal [place] COURT ([facility]) Oxycodone Hydrochloride 5 MG Oral Tablet oxycodone 5 m g tablet oxycodone 5 mg tablet completed oxycodone hydro chloride [address] ([facility]) Lisinopril 10 MG Oral Tablet lisinopril 10 mg tablet lisinopril 10 mg tablet completed lisinopril [address] ([facility]) Nystatin [id number] UNT/ML Topical Cream nystatin 100,000 unit/gram topical cream nystatin 100,000 unit/gram topical cream completed nystatin [id number] UNT/ML Topical Cream COURT ([facility]) Trazodone Hydrochloride 150 MG Oral Tablet traZODone ( DESYREL) 150 MG tablet traZODone (DESYREL) 150 MG tablet 150 mg Oral abor benitez Take 150 mg by mouth nightly [facility] atorvastatin 40 MG Oral Tablet atorvastatin 40 mg tabl et atorvastatin 40 mg tablet completed atorvastatin [address] ([facility]) Acetaminophen 325 MG / Hydrocodone Miranda trate 5 MG Oral Tablet hydrocodone 5 mg- acetaminophen 325 mg tablet hydrocodone 5 mg-acetaminophen 325 mg tablet completed acetaminophen 325 MG / hydrocodone bitartrate [address] ([facility]) Ondansetron 4 MG Oral Tablet ondansetron HCl 4 mg tabl et ondansetron HCl 4 mg tablet completed ondansetron 4 M G Oral Tablet COURT ([facility]) Trazodone Hydrochloride 50 MG Oral Tablet trazodone 50 mg tablet trazodone 50 mg tablet completed trazodone hydr ochloride [address] ([facility]) NITROFURANTOIN, MACROCRYSTALS 25 MG / Ni trofurantoin, Monohydrate 75 MG Oral Capsule nitrofurantoin monohydrate/macrocrystals 100 mg capsule nitrofurantoin monohydrate/macrocrystals 100 mg capsule completed nitrofurantoin, macrocrystals 25 MG / nitrofurantoin, monohydrate [address] ([facility]) Ondansetron 4 MG Oral Tablet ondansetron HCl 4 mg tabl et ondansetron HCl 4 mg tablet completed ondansetron 4 M G Oral Tablet COURT ([facility]) 24 HR Isosorbide Mononitrate 30 MG Exten ded Release Oral Tablet isosorbide mononitrate (IMDUR) 30 MG 24 hr tablet isosorbide mononitrate (IMDUR) 30 MG 24 hr tablet aborted isosor bide mononitrate ER 30 mg tablet,extended release 24 hr TAKE ONE TABLET BY MOUTH EVERY DAY [facility] Isosorbide Dinitrate 30 MG Oral Tablet i sosorbide dinitrate 30 mg tablet Take 1 tablet twice a day by oral route. isosorbide dinitrate 30 mg tablet Take 1 tablet twice a day by oral route. 1 comp leted isosorbide dinitrate [address] ([facility]) Cephalexin 500 MG Oral Capsule cephalexin 500 mg capsu le cephalexin 500 mg capsule completed cephalexin [address] ([facility]) Bisoprolol Fumarate 5 MG Oral Tablet bis oprolol fumarate 5 mg tablet Take 1 tablet every day by oral route. bisoprolol fumarate 5 mg tablet Take 1 t ablet every day by oral route. 1 completed bisoprolol fumarate [address] ([facility]) NITROFURANTOIN, MACROCRYSTALS 25 MG / Ni trofurantoin, Monohydrate 75 MG Oral Capsule nitrofurantoin monohydrate/macrocrystals 100 mg capsule nitrofurantoin monohydrate/macrocrystals 100 mg capsule completed nitrofurantoin, macrocrystals 25 MG / nitrofurantoin, monohydrate [address] ([facility]) tramadol hydrochloride 50 MG Oral Tablet tramadol 50 mg tablet Take 3 tablets every day by oral route at bedtime. tramadol 50 mg tablet Take 3 tablets coral ry day by oral route at bedtime. 3 complete d tramadol hydrochloride [address] ([facility]) Oxycodone Hydrochloride 5 MG Oral Tablet oxycodone 5 m g tablet oxycodone 5 mg tablet completed oxycodone hydro chloride [address] ([facility]) Nystatin [id number] UNT/ML Topical Cream nystatin 100,000 unit/gram topical cream nystatin 100,000 unit/gram topical cream completed nystatin [id number] UNT/ML Topical Cream COURT ([facility]) Lisinopril 5 MG Oral Tablet lisinopril 5 mg tablet lisinopril 5 mg ta blet completed lisinopril [address] ([facility]) Oxycodone Hydrochloride 5 MG Oral Tablet oxycodone 5 m g tablet oxycodone 5 mg tablet completed oxycodone hydro chloride [address] ([facility]) Ondansetron 4 MG Oral Tablet ondansetron HCl 4 mg tabl et ondansetron HCl 4 mg tablet completed ondansetron 4 M G Oral Tablet COURT ([facility]) Nystatin [id number] UNT/ML Topical Cream nystatin 100,000 unit/gram topical cream nystatin 100,000 unit/gram topical cream completed nystatin [id number] UNT/ML Topical Cream COURT ([facility]) Lisinopril 10 MG Oral Tablet lisinopril 10 mg tablet lisinopril 10 mg tablet completed lisinopril [address] ([facility]) Trazodone Hydrochloride 50 MG Oral Tablet trazodone 50 mg tablet trazodone 50 mg tablet completed trazodone hydr ochloride [address] ([facility]) Clonazepam 0.5 MG Oral Tablet clonazepam 0.5 mg tablet clona zepam 0.5 mg tablet completed clonazepam 0.[address] ([facility]) tramadol hydrochloride 50 MG Oral Tablet tramadol 50 mg tablet Take 3 tablets every day by oral route at bedtime. tramadol 50 mg tablet Take 3 tablets coral ry day by oral route at bedtime. 3 complete d tramadol hydrochloride [address] ([facility]) atorvastatin 40 MG Oral Tablet atorvastatin 40 mg tabl et atorvastatin 40 mg tablet completed atorvastatin [address] ([facility]) Trazodone Hydrochloride 50 MG Oral Tablet trazodone 50 mg tablet trazodone 50 mg tablet completed trazodone hydr ochloride [address] ([facility]) Clonazepam 0.5 MG Oral Tablet clonazepam 0.5 mg tablet clona zepam 0.5 mg tablet completed clonazepam 0.[address] ([facility]) NITROFURANTOIN, MACROCRYSTALS 25 MG / Ni trofurantoin, Monohydrate 75 MG Oral Capsule nitrofurantoin monohydrate/macrocrystals 100 mg capsule nitrofurantoin monohydrate/macrocrystals 100 mg capsule completed nitrofurantoin, macrocrystals 25 MG / nitrofurantoin, monohydrate [address] ([facility]) CALCIUM CARBONATE-VITAMIN D PO 1 {tbl} Oral aborted Take 1 tablet by mouth 2 (two) times a day [facility] Oxycodone Hydrochloride 5 MG Oral Tablet oxycodone 5 m g tablet oxycodone 5 mg tablet completed oxycodone hydro chloride [address] ([facility]) tramadol hydrochloride 50 MG Oral Tablet tramadol 50 mg tablet Take 3 tablets every day by oral route at bedtime. tramadol 50 mg tablet Take 3 tablets coral ry day by oral route at bedtime. 3 complete d tramadol hydrochloride [address] ([facility]) carvedilol 25 MG Oral Tablet carvedilol 25 mg tablet carvedilol 25 mg tablet completed carvedilol [address] ([facility]) Ibuprofen 600 MG Oral Tablet ibuprofen 6 00 mg tablet Take 1 tablet twice a day by oral route for 10 days. ibuprofen 600 mg tablet Take 1 tablet tw ice a day by oral route for 10 days. 1 completed ibuprofen [address] ([facility]) Isosorbide Dinitrate 30 MG Oral Tablet i sosorbide dinitrate 30 mg tablet Take 1 tablet twice a day by oral route. isosorbide dinitrate 30 mg tablet Take 1 tablet twice a day by oral route. 1 comp leted isosorbide dinitrate [address] ([facility]) Isosorbide Dinitrate 30 MG Oral Tablet i sosorbide dinitrate 30 mg tablet Take 1 tablet twice a day by oral route. isosorbide dinitrate 30 mg tablet Take 1 tablet twice a day by oral route. 1 comp leted isosorbide dinitrate [address] ([facility]) Acetaminophen 325 MG / Hydrocodone Miranda trate 5 MG Oral Tablet hydrocodone 5 mg- acetaminophen 325 mg tablet hydrocodone 5 mg-acetaminophen 325 mg tablet completed acetaminophen 325 MG / hydrocodone bitartrate [address] ([facility]) Lisinopril 2.5 MG Oral Tablet lisinopril 2.5 mg tablet lisin opril 2.5 mg tablet completed lisinopril 2.[address] ([facility]) Doxycycline Monohydrate 100 MG Oral Caps ule doxycycline monohydrate 100 mg capsule doxycycline monohydrate 100 mg capsule completed doxycycline monohydrate [address] ([facility]) Ibuprofen 600 MG Oral Tablet ibuprofen 6 00 mg tablet Take 1 tablet twice a day by oral route for 10 days. ibuprofen 600 mg tablet Take 1 tablet tw ice a day by oral route for 10 days. 1 completed ibuprofen [address] ([facility]) Clonazepam 0.5 MG Oral Tablet clonazepam 0.5 mg tablet clona zepam 0.5 mg tablet completed clonazepam 0.[address] ([facility]) Nystatin [id number] UNT/ML Topical Cream nystatin 100,000 unit/gram topical cream nystatin 100,000 unit/gram topical cream completed nystatin [id number] UNT/ML Topical Cream COURT ([facility]) Bisoprolol Fumarate 5 MG Oral Tablet bis oprolol fumarate 5 mg tablet Take 1 tablet every day by oral route. bisoprolol fumarate 5 mg tablet Take 1 t ablet every day by oral route. 1 completed bisoprolol fumarate [address] ([facility]) Isosorbide Dinitrate 30 MG Oral Tablet i sosorbide dinitrate 30 mg tablet Take 1 tablet twice a day by oral route. isosorbide dinitrate 30 mg tablet Take 1 tablet twice a day by oral route. 1 comp leted isosorbide dinitrate [address] ([facility]) fluticasone propionate 50 mcg/actuation nasal spray,suspension [id number] completed fluticasone propionate 0.05 MG/ACTUAT Metered Dose Nasal [place] COURT ([facility]) Acetaminophen 325 MG / Hydrocodone Miranda trate 5 MG Oral Tablet hydrocodone 5 mg- acetaminophen 325 mg tablet hydrocodone 5 mg-acetaminophen 325 mg tablet completed acetaminophen 325 MG / hydrocodone bitartrate [address] ([facility]) Cephalexin 500 MG Oral Capsule cephalexin 500 mg capsu le cephalexin 500 mg capsule completed cephalexin [address] ([facility]) Lisinopril 10 MG Oral Tablet lisinopril 10 mg tablet lisinopril 10 mg tablet completed lisinopril [address] ([facility]) carvedilol 25 MG Oral Tablet carvedilol 25 mg tablet carvedilol 25 mg tablet completed carvedilol [address] ([facility]) carvedilol 25 MG Oral Tablet carvedilol 25 mg tablet carvedilol 25 mg tablet completed carvedilol [address] ([facility]) 120 ACTUAT Fluticasone propionate 0.115 MG/ACTUAT / salmeterol 0.021 MG/ACTUAT Metered Dose Inhaler fluticasone-salmeterol (ADVAIR HFA) 115-21 MCG/ACT inhaler fluticasone-salmeterol (ADVAIR HFA) 115-21 MCG/ACT inhaler 2 {puff} Oral aborted Take 2 puffs by mouth daily [facility] Lisinopril 2.5 MG Oral Tablet lisinopril 2.5 mg tablet lisin opril 2.5 mg tablet completed lisinopril 2.[address] [facility] [facility] Bisoprolol Fumarate 5 MG Oral Tablet bis oprolol fumarate 5 mg tablet Take 1 tablet every day by oral route. bisoprolol fumarate 5 mg tablet Take 1 t ablet every day by oral route. 1 completed bisoprolol fumarate [address] ([facility]) Ondansetron 4 MG Oral Tablet ondansetron HCl 4 mg tabl et ondansetron HCl 4 mg tablet completed ondansetron 4 M G Oral Tablet COURT ([facility]) Isosorbide Dinitrate 30 MG Oral Tablet i sosorbide dinitrate 30 mg tablet Take 1 tablet twice a day by oral route. isosorbide dinitrate 30 mg tablet Take 1 tablet twice a day by oral route. 1 comp leted isosorbide dinitrate [address] ([facility]) Trazodone Hydrochloride 50 MG Oral Tablet trazodone 50 mg tablet trazodone 50 mg tablet completed trazodone hydr ochloride [address] ([facility]) Doxycycline Monohydrate 100 MG Oral Caps ule doxycycline monohydrate 100 mg capsule doxycycline monohydrate 100 mg capsule completed doxycycline monohydrate [address] ([facility]) Insurance Providers Payer name Policy type / Coverage type Policy ID Covered alliance party ID Covered alliance party's relationship to hogan Policy Hogan Plan Information BS [place] Medigap Part B [id number] 2.0.1.578044.3.227.99.991.053438.0 Family Dependent [id number] BS [place] Medigap Part B [id number] Family Dependent [id number] BS [place] [facility] [id number] 2.0.1.992631.3.227.99.991.110136.0 Family Dependent [id number] BS [place] Part B [id number] 2.0.1.479442.3.227.99.991.437758.0 Family Dependent [id number] BS [place] [facility] Part B [id number] 2.0.1.214768.3.227.99.991.376098.0 Family Dependent [id number] BS [place] Medigap Part B [id number] 2.0.1.190641.3.227.99.991.785902.0 Family Dependent [id number] BS [place] [facility] [id number] MRN.[id number] Family Dependent [id number] BS [place] Medigap Part B [id number] 2.0.1.720690.3.227.99.991.633039.0 Family Dependent [id number] BS [place] Medigap Part B [id number] MRN.[id number] Family Dependent [id number] BS [place] Medigap Part B [id number] 2.0.1.865301.3.227.99.991.546515.0 Family Dependent [id number] BS [place] Medigap Part B [id number].[id number] Family Dependent [id number] BS [place] Medigap Part B [id number] 2.0.1.194602.3.227.99.991.844890.0 Family Dependent [id number] BS [place] Medigap Part B [id number] 2.0.1.576424.3.227.99.991.997831.0 Family Dependent [id number] BS [place] Medigap Part B [id number] 2.0.1.422610.3.227.99.991.063852.0 Family Dependent [id number] BS [place] Medigap Part B [id number] 2.840.1.084844.3.227.99.991.750431.0 Family Dependent [id number] RMSCO MEDICAL CLAIMS [id number] HU2 [id number] RMSCO PPO 2 [id number] 2 [id number] Lifetime Benefit Solut Medigap Part B [id number] Family Depen dent Rmsco/Lifetime Nacho Solut Medigap Part B 34736 Family Dep endent Lifetime Benefit Solut Medigap Part B 44976 Family Depen dent Rmsco/Lifetime Nacho Solut Medigap Part B 92610 Family Dep endent BS [place] Medigap Part B [id number] 2.16840.1.413066.3.227.99.991.840373.0 Self [id number] BS [place] Medigap Part B [id number] Self BS [place] Commercial 302/802 [id number] Self 302/802 BS Filiberto Trad/MX [facility] Part B [id number] 2.0.1.204603.3.227.99.4595.81280.0 Self [id number] [facility] [id number] 0 [id number] BS [place] Medigap Part B [id number] 2.0.1.529466.3.227.99.991.767906.0 Self [id number] [facility] [id number] 2.0.1.21139 3.3.227.99.8646.4431.0 Self [id number] BS [place] Commercial [id number] 2.0.1.940992.3.227.99.991.124545.0 Self [id number] BS Dale Trad/MX Commercial 802 [id number] Self 802 Excellus [facility] Health Maintenance Organization (HMO) [id number] 2.16840.1.772575.3.227.99.8646.4431.0 Self U [id number] [facility] HMO/PPO/POS/EPO/OTHER [id number] 0 [id number] Blue Ppo Commercial [id number] Self EXCELLUS H [id number] Self [id number] EBS-RMSCO [id number] 1 [id number] EBSRMSCO LIFETIME BENEFIT SOLU [id number] Spo [id number] RMSCO [id number] 1 [id number] EBS-RMSCO [id number] 1 [id number] EXCELLUS BCBS [id number] Nichole UFU [id number] Lifetime Benefit Solution Medigap Part B [id number] 2..1.284181.3.227.99.991.832816.0 Family Dependent [id number] Lifetime Benefit Solution Medigap Part B 630556 Family De pendent BS Dale Trad/MX Medigap Part B [id number] 2..1.162001.3.227.99.4595.73268.0 Family Dependent [id number] BS [place] Trad/MX Medigap Part B [id number] 2...651141.3.227.99.4595.48496.0 Family Dependent [id number] BS Filiberto Trad/MX Commercial 802 [id number] Self 802 BS Dale Trad/MX Commercial [id number] 2..1.148422.3.227.99.4595.96045.0 Self [id number] BS [place] Trad/MX Medigap Part B [id number] 2..1.067498.3.227.99.4595.67279.0 Self [id number] BCBS [place] PPO 302/307 [id number] SP [id number] BS [place] Trad/MX Medigap Part B [id number] 2..1.653726.3.227.99.4595.76551.0 Self [id number] BS [place] Trad/MX Medigap Part B [id number] 2..1.503376.3.227.99.4595.79364.0 Self [id number] BS [place] Trad/MX Commercial 18157 Self BS Dale Trad/MX Medigap Part B [id number] 2..1.990345.3.227.99.4595.10239.0 Self [id number] BS [place] Trad/MX Commercial [id number] 2...901343.3.227.99.4595.44873.0 Self [id number] BCBS OF [place] 306/806 [id number] SP [id number] MEDICARE [id number] xxxxxxxxxxx [id number] MEDICARE A [id number] Self [id number] A MEDICARE A [id number] Self [id number] [id number] MEDICARE [id number] Nichole [id number] Y51 BS [place] Medigap Part B [id number] 2...407045.3.227.99.991.981009.0 Family Dependent [id number] BS [place] Medigap Part B [id number] 2...778393.3.227.99.991.939478.0 Family Dependent [id number] BS [place] Medigap Part B [id number] MRN.[id number] Family Dependent [id number] BS [place] Medigap Part B [id number] ...885470.3.227.99.991.421505.0 Family Dependent [id number] BS [place] Medigap Part B 302/802 660166 Family Dependent 302/802 BS [place] Medigap Part B [id number] 2..1.554352.3.227.99.991.666766.0 Family Dependent [id number] BS [place] Medigap Part B [id number] 2..1.265502.3.227.99.991.667408.0 Family Dependent [id number] BS [place] Medigap Part B [id number].[id number] Family Dependent [id number] BS [place] Medigap Part B [id number] 2.0.1.570987.3.227.99.991.223573.0 Family Dependent [id number] BS [place] Medigap Part B [id number] 2.0.1.757345.3.227.99.991.075379.0 Family Dependent [id number] BS [place] Medigap Part B [id number] 2...577419.3.227.99.991.780977.0 Family Dependent [id number] BS [place] Medigap Part B [id number] MRN.[id number] Family Dependent [id number] BS [place] Medigap Part B [id number] 2..1.135147.3.227.99.991.162012.0 Family Dependent [id number] BS [place] Medigap Part B [id number] 2..1.775241.3.227.99.991.541826.0 Family Dependent [id number] BS [place] Medigap Part B [id number] 2..1.194324.3.227.99.991.731096.0 Family Dependent [id number] BS [place] Medigap Part B [id number] MRN.[id number] Family Dependent [id number] BS [place] Medigap Part B [id number] 2.0.1.235340.3.227.99.991.115365.0 Family Dependent [id number] BS [place] Medigap Part B [id number] 2.0.1.708661.3.227.99.991.233690.0 Family Dependent [id number] BS [place] Medigap Part B [id number] 2.0.1.671743.3.227.99.991.249095.0 Family Dependent [id number] BS [place] Medigap Part B [id number] 2..1.280124.3.227.99.991.138422.0 Family Dependent [id number] BS [place] Medigap Part B [id number] 2..1.218269.3.227.99.991.193966.0 Family Dependent [id number] EXCELLUS BCBS [id number] xxxxxxxxxxxx [phone] [id number] EXCELLUS BCBS [id number] Spo VYW [id number] EXCELLUS BCBS [id number] Spo VYW [id number] MEDICARE [id number] Nichole [id number] A Medicare [facility] Medicare Primary [id number] 2.0.1.451080.3.227.99.4595.99780.0 Self [id number] Medicare Natl Govt Servic Medicare Primary [id number] 2.0.1.449701.3.227.99.4595.86145.0 Self [id number] Medicare [facility]l [facility] Medicare Primary [id number] 2.0.1.074506.3.227.99.4595.84556.0 Self [id number] Medicare [facility]l [facility] Medicare Primary [id number] 2.0.1.724593.3.227.99.4595.39729.0 Self [id number] Medicare [facility] Govt Servic Medicare Primary [id number] 2.16.840.1.910209.3.227.99.4595.52663.0 Self [id number] Medicare [facility] Govt Servic Medicare Primary [id number] 2.16840.1.410963.3.227.99.4595.87547.0 Self [id number] BS [place] Medigap Part B [id number] 2.840.1.534615.3.227.99.991.648870.0 Family Dependent [id number] BS [place] Medigap Part B [id number] 2.0.1.404023.3.227.99.991.777158.0 Family Dependent [id number] EXCELLUS C [id number] Spouse [id number] BS [place] Medigap Part B [id number] 2.0.1.314325.3.227.99.991.812174.0 Family Dependent [id number] [place] Primary [id number] MRN.[id number] Self [id number] [place] Medicare Primary [id number] MRN.[id number] Self [id number] [place] Medicare Primary [id number] 2.840.1.649854.3.227.99.991.095983.0 Self [id number] [place] Medicare Primary [id number] MRN.[id number] Self [id number] [place] Medicare Primary [id number] 2.16.840.1.959236.3.227.99.991.145676.0 Self [id number] [place] Medicare Primary [id number] 2.16.840.1.883985.3.227.99.991.691038.0 Self [id number] [place] Medicare Primary [id number] MRN.[id number] Self [id number] [place] Medicare Primary [id number] 2.16.840.1.678215.3.227.99.991.495519.0 Self [id number] [place] Medicare Primary [id number] 2.16.840.1.123293.3.227.99.991.891578.0 Self [id number] [place] Medicare Primary [id number] 2.16.840.1.008584.3.227.99.991.525819.0 Self [id number] [place] Medicare Primary [id number] 2.16.840.1.413458.3.227.99.991.915676.0 Self [id number] MEDICARE [id number] SP [id number] Y51 EXCELLUS BC-BS PPO 306 [id number] SP [id number] BCBS of [place] Other 0 [id number] Family D ependent [place] 0 Medicare Part B of [place] Other 0 [id number] Self 0 EXCELLUS CNY [facility] BS [id number] 01 [id number] MEDICARE PART A [facility] [id number] 18 [id number] MEDICARE [id number] S [id number] Y51 EXCELLUS BCBS B [id number] S [id number] [id number] MEDICARE [id number] SP [id number] Y51 BCBS [place] PPO 302/307 [id number] HU2 [id number] BCBS of [facility] Other 0 [id number] Family D ependent Eric [place] 0 Medicare Part B of [place] Other 0 [id number] 1 Self 0 EXCELLUS CNY [place] BS UNAVAILABLE 01 UNAVAILABLE BCBS 2.0.1.463282.3.441 [id number] Blue Cross/Bl ue Shield 2.0.1.518973.3.441 Lifetime Benefit Solutions 2.840.1.189969.3.441 105 [id number] Commercial Insurance Co. 2.0.1.434350.3.441 [employer] 2.0.1.173662.3.441 [id number] Commercial Insurance Co. 2.0.1.672410.3.441 BCBS 2.840.1.542869.3.441 [id number] Blue Cross/Bl ue Shield 2.840.1.386721.3.441 BCBS 2.840.1.639514.3.441 [id number] Blue Cross/Bl ue Shield 2.0.1.444687.3.441 Medicare 2.840.1.816610.3.441 [id number] Medicare Part B 2.0.1.825081.3.441 BC/BS Of Lizzeth Jannie [facility] Part B [id number] MRN.[id number] Self [id number] Medicare Part B Medicare Primary [id number] MRN.[id number] Self [id number] BC/BS Of [place] [facility] Part B [id number] MRN.[id number] Family Dependent [id number] Lifetime Benefit (Rmsco) Commercial [id number] 2.16.840.1.305434.3.227.99.4595.71615.0 Family Dependent [id number] BCBS OF [place] 306/806 [id number] [id number] BC/BS Of [place] [facility] Part B [id number] 2.16.840.1.995304.3.227.99.1037.50460.0 Self [id number] Medicare Part B Medicare Primary [id number] 2.16.840.1.147018.3.227.99.1037.67236.0 Self [id number] BC/BS Of [place] [facility] Part B [id number] 2.16.840.1.678831.3.227.99.1037.07786.0 Self [id number] Medicare Part B Medicare Primary [id number] 2.16.840.1.208231.3.227.99.1037.23797.0 Self [id number] BLUE CROSS BLUE SHIELD -O/P [id number] 01 [id number] MEDICARE PART A -O/P [id number] 18 [id number] BC[facility] [id number] 2.16.840.1.896483.3.227.99.1037.52447.0 Self [id number] Medicare Part B Medicare Primary [id number] 2.16.840.1.806885.3.227.99.1037.63951.0 Self [id number] MEDICARE C [id number] S [id number] A MEDICARE PART A -O/P [id number] 18 [id number] MEDICARE PART A [facility] [id number] 18 [id number] MEDICARE [id number] BC[facility]BS [facility] Part [facility] [id number] 2.16.840.1.125831.3.227.99.1037.27533.0 Self [id number] Medicare Part B Medicare Primary [id number] 2.16.840.1.736971.3.227.99.1037.46016.0 Self [id number] [place] Medicare Primary [id number] 2.16.840.1.814039.3.227.99.991.639668.0 Self [id number] Medicare [place] Medicare Primary [id number] 2.16.840.1.186606.3.227.99.991.602023.0 Self [id number] [place] Medicare Primary [id number] 2.16.0.1.475082.3.227.99.991.039755.0 Self [id number] BC/BS [facility] Part [facility] [id number] 2.16840.1.482103.3.227.99.1037.75303.0 Self [id number] Medicare Part B Medicare Primary [id number] 2.16.840.1.701674.3.227.99.1037.45093.0 Self [id number] [employer] [place]AST SVC OPTIONS C [id number] S [id number] [place] Medicare Primary [id number] 2.16.840.1.712239.3.227.99.991.163273.0 Self [id number] BC/BS Of [place] Moira [facility] Part B [id number] 2.16.840.1.598787.3.227.99.1037.37724.0 Self [id number] Medicare Part B Medicare Primary [id number] 2.16.840.1.073607.3.227.99.1037.62491.0 Self [id number] [place] Medicare Primary [id number] 2.0.1.909109.3.227.99.991.382217.0 Self [id number] EXCELLUS BS B [id number] S UFU [id number] EXCELLUS BS B [id number] S [id number] [id number] Medicare [place] Medicare Primary [id number] 2.0.1.104814.3.227.99.991.121789.0 Self [id number] Medicare [place] Medicare Primary [id number] 2.0.1.615199.3.227.99.991.867682.0 Self [id number] BC/BS Of [facility] Medigap Part B [id number] 2.0.1.384291.3.227.99.1037.57983.0 Self [id number] Medicare Part B Medicare Primary [id number] 2.0.1.235703.3.227.99.1037.16707.0 Self [id number] Lifetime Benefit Solution Medigap Part B [id number] 2.0.1.001938.3.227.99.991.875981.0 Family Dependent [id number] Medicare [place] Medicare Primary [id number] 2.0.1.527599.3.227.99.991.875798.0 Self [id number] [facility] Part [facility] [id number] 2.0.1.63944 3.3.227.99.8646.4431.0 Self [id number] Medicare [place]/NGS Medicare Primary [id number] 2.0.1.591023.3.227.99.8646.4431.0 Self [id number] MEDICARE C [id number] S [id number] Excellus [facility] Medigap Part B [id number] 2.0.1.80870 3.3.227.99.8646.4431.0 Self [id number] BC/BS Of [place] Commercial [id number] 2.16.840.1.303384.3.227.99.1037.06764.0 Self [id number] BC/BS Of [place] Commercial [id number] 2.16.840.1.097003.3.227.99.1037.85893.0 Family Dependent [id number] BC/BS Of [place] [facility] Part B [id number] 2.16.840.1.653009.3.227.99.1037.83051.0 Self [id number] Lifetime Benefit Solution [facility] Part B [id number] 2..840.1.877345.3.227.99.991.591502.0 Family Dependent [id number] Lifetime Benefit Solution [facility] Part B [id number] Family De pendent EXCELLUS BCBS B [id number] S UFU [id number] Lifetime Benefit ([employer]) Commercial [id number] Family Depende nt BC/BS Of [place] Medigap Part B [id number] Family Dep endent BC/BS Of [place] Commercial [id number] Self LIFETIME BENEFIT SOLUTIO O [id number] P [id number] BCBS Excellus Ppo U/W [facility] Part B 56270 Self BCBS Excellus Ppo U/W [facility] Part B 69651 Self BCBS Excellus Ppo U/W [facility] Part B 79429 Family Depend ent BCBS Excellus Ppo U/W Commercial [id number] Self BC/BS Of [place] Commercial [id number] Family Depende nt BCBS [place] PPO 302/307 [id number] SP [id number] BLUE CROSS OTHER 1 [id number] SP [id number] EXCELLUS BCBS B UNAVAILABLE P UNAV AILABLE BC/BS [facility] [facility] [facility] [id number] Self BC/BS [place] [facility] Part B 37867 Self LIFETIME BENEFIT SOLUTIONS [id number] SP [id number] BCBS [place] PPO 302/307 [id number] SP [id number] Lifetime Benefit Solution Commercial [id number] Family Depend ent LIFETIME BENEFIT SOLUTIO S [id number] P [id number] RMSCO S [id number] S [id number] SELF PAY 2 UNAVAILABLE 1 UNAVAILA BLE BC EXC PLANS 1 [id number] 1 [id number] DAJUAN BC-BS PPO 306 [id number] HU2 [id number] Problems, Conditions, and Diagnoses Code Display Name Description Problem Type Effective Dates Data Source(s) E66.09 Other obesity due to excess calories Oth er obesity due to excess calories Diagnosis 09/28/2020 09:58:02 AM EDT [facility] 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 Dependence on other enabling machines an Diagnosis 09/28/2020 09:58:02 AM EDT [facility] G47.33 Obstructive sleep apnea (adult) (pediatr ic) Obstructive sleep apnea (adult) (pediatr Diagnosis 09/28/2020 09:58:02 AM EDT [facility] E78.49 Other hyperlipidemia Other hyperlipidemia Diagnosis 09/28/2020 09:58:02 AM EDT [facility] I10 Essential (primary) hypertension Essential (primary) h ypertension Diagnosis 09/28/2020 09:58:02 AM EDT [facility] I25.10 Atherosclerotic heart diseas e of [place] coronary artery without angina pectoris Atherosclerotic heart disease of [place] Diagnosis 09/28/2020 09:58:02 AM EDT [facility] I25.5 Ischemic cardiomyopathy Ischemic cardiomyopathy Diagno sis 09/28/2020 09:58:02 AM EDT [facility] I25.2 Old myocardial infarction Old myocardial infarction Di agnosis 06/22/2020 11:07:00 AM EDT [facility] R07.89 Other chest pain Other chest pain Diagnosis 06/22/2020 11 :07:00 AM EDT [facility] Z98.61 Coronary angioplasty status Coronary angioplasty statu s Diagnosis 06/22/2020 11:07:00 AM EDT [facility] Z01.810 Encounter for preprocedural cardiovascul ar examination Encounter for preprocedural cardiovascul Diagnosis 06/15/2020 10:50:41 AM EDT [facility] E78.5 Hyperlipidemia, unspecified Hyperlipidemia, unspecifie d Diagnosis 04/02/2020 11:02:09 AM EST [facility] I21.02 ST elevation (STEMI) myocard ial infarction involving left anterior descending coronary artery ST elevation (STEMI) myocardial infarcti Diagnosis 01/21/2020 08:39:00 AM EST [facility] G89.29 Chronic pain Other chronic pain Problem 08/13/2020 12:0 0:00 AM EDT eCW1 ([facility]) G43.709 [id number] Chronic migraine Problem 07/15/2020 12:00:00 AM EDT eC1 ([facility]) G43.709 [id number] Chronic migraine w/o aura w/o status migrainosus, not intractable Problem 06/17/2020 12:00:00 AM EDT eCW1 ([facility]) I25.[address] elevation myocardial infar ction (STEMI) History of ST elevation myocardial infarction (STEMI) [id number] 06/17/2020 12:00:00 AM EDT [facility] R07.89 Other chest pain Other chest pain [id number] 06/17/2020 12 :00:00 AM EDT [facility] Z98.61 Coronary angioplasty status Coronary angioplasty statu s [id number] 06/17/2020 12:00:00 AM EDT [facility] G47.33 JAY on CPAP JAY on CPAP [id number] 01/14/2020 12:00:00 AM [facility] I10 Essential hypertension Essential hypertension [id number] 01/14/2020 12:00:00 AM [facility] Surgeries/Procedures Procedure Description Date Indications Data Source(s) OFFICE OUTPATIENT VISIT 15 MINUTES 01/07/2021 12:00:00 AM [facility], [facility]) THERAPEUTIC PX 1/> AREAS EACH 15 MIN EXERCISES 12:00:00 AM EST [facility] ([facility] ) MANUAL THERAPY TQS 1/> REGIONS EACH 15 MINUTES 12:00:00 AM EDT [facility] ([facility]) THERAPEUTIC PX 1/> AREAS EACH 15 MIN EXERCISES 12:00:00 AM EDT [facility] ([facility]) Physical Therapy Eval - Low Complexity 12/20/2020 12:0 0:00 AM EDT [facility] ([facility]) Shave Biopsy Of Skin, Single Lesion 12/16/2020 12:00:0 0 AM EDT [facility] ([facility]) OFFICE OUTPATIENT VISIT 25 MINUTES 12/16/2020 12:00:00 AM EDT [facility] ([facility]) OFFICE OUTPATIENT VISIT 25 MINUTES 12/07/2020 12:00:00 AM EDT [facility] ([facility] ) OFFICE OUTPATIENT VISIT 25 MINUTES 12/07/2020 12:00:00 AM EDT [facility] ([facility]) PHYSICIAN TELEPHONE EVALUATION 5-10 MIN 12/02/2020 12: 00:00 AM EDT [facility] ([facility] ) OFFICE OUTPATIENT VISIT 15 MINUTES 12/02/2020 12:00:00 AM EDT [facility] ([facility] ) FALLS RISK ASSESSMENT DOCUMENTED 11/30/2020 12:00:00 A M EDT [facility] ([facility] ) OFFICE OUTPATIENT VISIT 25 MINUTES 11/30/2020 12:00:00 AM EDT [facility] ([facility] ) BRNCDILAT RSPSE SPMTRY PRE&POST-BRNCDILAT ADMN 12:00:00 AM EDT [facility] ([facility]) OFFICE OUTPATIENT VISIT 15 MINUTES 11/26/2020 12:00:00 AM EDT [facility] OFFICE OUTPATIENT VISIT 15 MINUTES 11/23/2020 12:00:00 AM EDT [facility] ([facility] ) OFFICE OUTPATIENT VISIT 10 MINUTES 11/12/2020 12:00:00 AM EDT [facility] ([facility]) RADIOLOGIC EXAM KNEE COMPLETE 4/MORE VIEWS 11/11/2020 12:00:00 AM EDT [facility] ([facility]) OFFICE OUTPATIENT VISIT 25 MINUTES 11/11/2020 12:00:00 AM EDT [facility] ([facility]) OFFICE OUTPATIENT VISIT 15 MINUTES 11/11/2020 12:00:00 AM EDT [facility] ([facility]) OFFICE OUTPATIENT VISIT 25 MINUTES 11/10/2020 12:00:00 AM EDT [facility] ([facility]) OFFICE OUTPATIENT NEW 30 MINUTES 11/08/2020 12:00:00 A M EDT [facility] ([facility]) OFFICE OUTPATIENT VISIT 15 MINUTES 11/04/2020 12:00:00 AM EDT [facility] ([facility] ) OFFICE OUTPATIENT VISIT 15 MINUTES 11/01/2020 12:00:00 AM EDT [facility] ([facility]) THERAPEUTIC PX 1/> AREAS EACH 15 MIN EXERCISES 12:00:00 AM EDT MEDENT ([facility] ) THERAPEUTIC PX 1/> AREAS EACH 15 MIN EXERCISES 12:00:00 AM EDT MEDENT ([facility] ) THERAPEUTIC PX 1/> AREAS EACH 15 MIN EXERCISES 12:00:00 AM EDT MED[facility] ([facility]) THERAPEUTIC PX 1/> AREAS EACH 15 MIN EXERCISES 12:00:00 AM EDT MED[facility] ([facility] ) THERAPEUTIC PX 1/> AREAS EACH 15 MIN EXERCISES 12:00:00 AM EDT MED[facility] ([facility] ) APPLICATION MODALITY 1/> AREAS HOT/COLD PACKS 10/16/19 12:00:00 AM EDT MED[facility] ([facility] ) Chronic Care Management Services Ea Addl 20 Min 2020 12:00:00 AM EDT MEDENT ([facility]) Chronic Care MGMT 20 Mins Clinical Staff Time Per Calendar M onth 10/13/2020 12:00:00 AM EDT MEDENT ([facility] ) THERAPEUTIC PX 1/> AREAS EACH 15 MIN EXERCISES 12:00:00 AM EDT MED[facility] ([facility] ) THERAPEUTIC PX 1/> AREAS EACH 15 MIN EXERCISES 12:00:00 AM EDT MED[facility] ([facility] ) THERAPEUTIC PX 1/> AREAS EACH 15 MIN EXERCISES 12:00:00 AM EDT MEDENT ([facility] ) MANUAL THERAPY TQS 1/> REGIONS EACH 15 MINUTES 12:00:00 AM EDT MED[facility] ([facility] ) OFFICE OUTPATIENT VISIT 25 MINUTES 10/04/2020 12:00:00 AM EDT MEDENT ([facility]) MANUAL THERAPY TQS 1/> REGIONS EACH 15 MINUTES 12:00:00 AM EDT MED[facility] ([facility] ) OFFICE OUTPATIENT VISIT 15 MINUTES 09/29/2020 12:00:00 AM EDT MED[facility] ([facility] ) THERAPEUTIC PX 1/> AREAS EACH 15 MIN EXERCISES 12:00:00 AM EDT MEDENT ([facility] ) ARTHROCENTESIS ASPIR&/INJECTION MAJOR JT/BURSA 12:00:00 AM EDT MED[facility] ([facility] ) THERAPEUTIC PX 1/> AREAS EACH 15 MIN EXERCISES 12:00:00 AM EDT MED[facility] ([facility] ) THERAPEUTIC PX 1/> AREAS EACH 15 MIN EXERCISES 12:00:00 AM EDT MED[facility] ([facility] ) THERAPEUTIC PX 1/> AREAS EACH 15 MIN EXERCISES 12:00:00 AM EDT MED[facility] ([facility] ) THERAPEUTIC PX 1/> AREAS EACH 15 MIN EXERCISES 12:00:00 AM EDT MED[facility] ([facility] ) MANUAL THERAPY TQS 1/> REGIONS EACH 15 MINUTES 12:00:00 AM EDT MED[facility] ([facility] ) THERAPEUTIC PX 1/> AREAS EACH 15 MIN EXERCISES 12:00:00 AM EDT MED[facility] ([facility] ) MANUAL THERAPY TQS 1/> REGIONS EACH 15 MINUTES 021 12:00:00 AM EDT MED[facility] ([facility] ) MANUAL THERAPY TQS 1/> REGIONS EACH 15 MINUTES 12:00:00 AM EDT MED[facility] ([facility] ) THERAPEUTIC PX 1/> AREAS EACH 15 MIN EXERCISES 12:00:00 AM EDT MED[facility] ([facility] ) THERAPEUTIC PX 1/> AREAS EACH 15 MIN EXERCISES 12:00:00 AM EDT MED[facility] ([facility] ) MANUAL THERAPY TQS 1/> REGIONS EACH 15 MINUTES 12:00:00 AM EDT MED[facility] ([facility] ) THERAPEUTIC PX 1/> AREAS EACH 15 MIN EXERCISES 12:00:00 AM EDT MED[facility] ([facility] ) MANUAL THERAPY TQS 1/> REGIONS EACH 15 MINUTES 12:00:00 AM EDT MED[facility] ([facility] ) THERAPEUTIC PX 1/> AREAS EACH 15 MIN EXERCISES 12:00:00 AM EDT MED[facility] ([facility] ) MANUAL THERAPY TQS 1/> REGIONS EACH 15 MINUTES 12:00:00 AM EDT MEDENT ([facility] ) FALLS RISK ASSESSMENT DOCUMENTED 08/31/2020 12:00:00 A M EDT MEDENT ([facility]) OFFICE OUTPATIENT VISIT 25 MINUTES 08/31/2020 12:00:00 AM EDT MEDENT ([facility] ) Chronic Care MGMT 20 Mins Clinical Staff Time Per Calendar M ont 08/31/2020 12:00:00 AM EDT MEDENT ([facility] ) Physical Therapy Eval - Low Complexity 08/26/2020 12:0 0:00 AM EDT MED[facility] ([facility] ) X-Ray Hips Bilateral With Pelvis 3-4 Views 08/17/2020 12:00:00 AM EDT MED[facility] ([facility] ) OFFICE OUTPATIENT VISIT 15 MINUTES 08/17/2020 12:00:00 AM EDT MED[facility] ([facility] ) OFFICE OUTPATIENT VISIT 25 MINUTES 08/17/2020 12:00:00 AM EDT MEDENT ([facility] ) Pain Procedure Log 08/16/2020 12:00:00 AM EDT eCW1 ([facility]) Chronic Care Management Services Ea Addl 20 Min 2020 12:00:00 AM EDT MEDHEIDI ([facility]) Chronic Care MGMT 20 Mins Clinical Staff Time Per Calendar M ont 07/14/2020 12:00:00 AM EDT JAMILAH ([facility] ) ECG ROUTINE ECG W/LEAST 12 LDS TRCG ONLY W/O I&R <td>E CG 12- LEAD</td><td>Routine</td><td>06/22/2020 2:28 PM EDT</td><td></td><td></td> 06/22/2020 02:28:03 PM EDT [facility] CARDIAC CATHETERIZATION <td>CARDIAC CATHETERIZATION</td><td>Routine</td><td>06/22/2020 1:36 PM EDT</td><td> Cardiomyopathy, ischemic Coronary artery disease involving [place] coronary artery of [place] heart without angina pectoris Coronary angioplasty status [...] chest painCoronary angioplasty statusCoronary artery disease involving [place] coronary artery of [place] heart without angina pectorisCardiomyopathy, ischemic [facility] History of ST elevation myocardial infar ction (STEMI) Obesity due to excess calories, unspecif ied classification, unspecified whether serious comorbidity present JAY on CPAP Essential hypertension Other hyperlipidemia Other chest pain Coronary angioplasty status Coronary artery disease involving [place] coronary artery of [place] heart without angina pectoris Cardiomyopathy, ischemic ECG ROUTINE ECG W/LEAST 12 LDS TRCG ONLY W/O I&R <td>E CG 12- LEAD</td><td>Routine</td><td>06/22/2020 11:46 AM EDT</td><td></td><td></td> 06/22/2020 11:46:22 AM EDT [facility] Operation on Heart Valve 06/22/2020 12:00:[address] ([facility]) Operation on Heart Valve 06/22/2020 12:00:[address] ([facility]) Operation on Heart Valve 06/22/2020 12:00:[address] ([facility]) Chronic Care Management Services Ea Addl 20 Min 2020 12:00:00 AM EDT MEDENT ([facility]) Chronic Care MGMT 20 Mins Clinical Staff Time Per Calendar M onth 06/17/2020 12:00:00 AM EDT MEDENT ([facility] ) BRNCDILAT RSPSE SPMTRY PRE&POST-BRNCDILAT ADMN 021 12:00:00 AM EDT MEDENT ([facility]) OFFICE OUTPATIENT VISIT 25 MINUTES 05/24/2020 12:00:00 AM EDT MED[facility] ([facility] ) OFFICE OUTPATIENT VISIT 25 MINUTES 05/03/2020 12:00:00 AM EDT MEDENT ([facility]) Surgical / procedural history : 2 C-Sect ions, Cautery in nose due to nose bleed (Dr. Hussein Zamarripa), Stimulator inserted into back June 2013, Right Shoulder Surgery in July 2013, Throat [id number], Left Knee Surgery 07/2014, 1 heart stent 02/2016, Hysterectomy June 2018, Knee Surgery September 2018, Hammer Toe Surgery 02/2019, 2 heart stents and cleaning of other stent 02/2019 Surgical / procedural history : 2 C-Sections, Cautery in nose due to nose bleed (Dr. Hussein Zamarripa), Stimulator inserted into back June 2013, Right Shoulder Surgery in July 2013, Throat [id number], Left Knee Surgery 07/2014, 1 heart stent 02/2016, Hysterectomy June 2018, Knee Surgery September 2018, Hammer Toe Surgery 02/2019, 2 heart stents and cleaning of other stent 02/201904/27/2020 12:00:00 AM EST JERI (Pancho Larsen MD [facility]) Comprehensive eye exam established patient Comprehensi ve eye exam established patient 04/27/2020 12:00:00 AM EST JERI (Chauncey Larsen MD [facility]) CHEMODNRVTJ MUSC MUSC INNERVATED FACIAL NRV 03/12/2020 12:00:00 AM EST MED[facility] ([facility]) TROPONIN QUANTITATIVE <td>TROPONIN I</td><td>Routi ne</td><td>01/23/2020 6:20 AM EST</td><td></td><td> </td> 01/23/2020 11:20:00 AM EST [facility] BLOOD COUNT COMPLETE AUTOMATED <td>CBC</td><td>Routine </td><td>01/23/2020 6:20 AM EST</td><td></td><td> </td> 01/23/2020 11:20:00 AM EST [facility] BASIC METABOLIC PANEL CALCIUM TOTAL <td>BASIC METABOLI C PANEL</td><td>Routine</td><td>01/23/2020 6:20 AM EST</td><td></td><td> </td> 01/23/2020 11:20:00 AM EST [facility] CT ANGIOGRAPHY CHEST W/CONTRAST/NONCONTRAST <td>CT ANG IOGRAM CHEST</td><td>Routine</td><td>01/22/2020 10:06 PM EST</td><td></td><td> </td> 01/23/2020 03:06:19 AM EST [facility] CREATINE KINASE MB FRACTION ONLY <td>CKMB</td><td>Rout ine</td><td>01/22/2020 9:02 PM EST</td><td></td><td> </td> 01/23/2020 02:02:00 AM EST [facility] TROPONIN QUANTITATIVE <td>TROPONIN I</td><td>Add-O n</td><td>01/22/2020 4:14 PM EST</td><td></td><td> </td> 01/22/2020 09:14:00 PM EST [facility] FIBRIN DGRADJ PRODUCTS D-DIMER QUANTITATIVE <td>D-DIME R, QUANTITATIVE</td><td>STAT</td><td>01/22/2020 4:14 PM EST</td><td></td><td> </td> 01/22/2020 09:14:00 PM EST [facility] CMB <td>CMB</td><td>STAT</td><td >01/22/2020 1:26 PM EST</td><td></td><td> </td> 01/22/2020 06:26:00 PM EST [facility] TROPONIN QUANTITATIVE <td>TROPONIN I</td><td>STAT< /td><td>01/22/2020 1:26 PM EST</td><td></td><td> </td> 01/22/2020 06:26:00 PM EST [facility] CREATINE KINASE MB FRACTION ONLY <td>CKMB</td><td>STAT </td><td>01/22/2020 1:26 PM EST</td><td></td><td> </td> 01/22/2020 06:26:00 PM EST [facility] ECG ROUTINE ECG W/LEAST 12 LDS W/I&R <td>ECG 12- LEAD</td><td>Routine</td><td>01/22/2020 11:51 AM EST</td><td></td><td></td> 01/22/2020 04:51:46 PM EST [facility] ECG ROUTINE ECG W/LEAST 12 LDS TRCG ONLY W/O I&R <td>E CG 12- LEAD</td><td>Routine</td><td>01/22/2020 5:11 AM EST</td><td></td><td></td> 01/22/2020 10:11:01 AM EST [facility] BASIC METABOLIC PANEL CALCIUM TOTAL <td>BASIC METABOLI C PANEL</td><td>Routine</td><td>01/22/2020 4:43 AM EST</td><td></td><td> </td> 01/22/2020 09:43:00 AM EST [facility] ECG ROUTINE ECG W/LEAST 12 LDS TRCG ONLY W/O I&R <td>E CG 12- LEAD</td><td>Routine</td><td>01/21/2020 1:19 PM EST</td><td></td><td></td> 01/21/2020 06:19:33 PM EST [facility] CARDIAC CATHETERIZATION <td>CARDIAC CATHETERIZATION</td><td>Routine</td><td>01/21/2020 12:47 PM EST</td><td> Coronary angioplasty status Cardiomyopathy, ischemic Hyperlipidemia, unspecified hyperlipidemia type ST elevation (STEMI) myocardial infarction involving left anterior descending coronary artery Essential hypertension JAY on CPAP</td><td> </td> 01/21/2020 05:47:04 PM EST JAY on CPAPEssential hypertensionST elev ation (STEMI) myocardial infarction involving left anterior descending coronary arteryHyperlipidemia, unspecified hyperlipidemia typeCardiomyopathy, ischemicCoronary angioplasty status [facility] JAY on CPAP Essential hypertension ST elevation (STEMI) myocardial infarcti on involving left anterior descending coronary artery Hyperlipidemia, unspecified hyperlipidem ia type Cardiomyopathy, ischemic Coronary angioplasty status ECG ROUTINE ECG W/LEAST 12 LDS TRCG ONLY W/O I&R <td>E CG 12- LEAD</td><td>Routine</td><td>01/21/2020 8:59 AM EST</td><td></td><td></td> 01/21/2020 01:59:03 PM EST [facility] Operation on Heart Valve 01/21/2020 12:00:[address] ([facility]) Operation on Heart Valve 01/21/2020 12:00:[address] ([facility]) Operation on Heart Valve 01/21/2020 12:00:[address] ([facility]) Operation on Heart Valve 01/21/2020 12:00:[address] ([facility]) CHEMODNRVTJ MUSC MUSC INNERVATED FACIAL NRV 12/11/2019 12:00:00 AM EDT MEDENT ([facility]) Results ID Date Data Source [id number] 01/07/2021 12:00:00 AM EST [facility] Name Value Range Interpretation Code Description Data Viki rce(s) Supporting Document(s) SARS-CoV2 Rapid Antigen Negative [facility] This lab was reported by Jannie Cazares. ID Date Data Source [id number] 12/16/2020 03:29:00 PM EDT MEDENT ([facility]) Name Value Range Interpretation Code Description Data Viki rce(s) Supporting Document(s) Laboratory test finding (navigational concept) Laboratory test result MEDENT ([facility]) No further treatment Laboratory test finding (navigational concept) Laboratory test result MEDENT ([facility]) No further treatment ID Date Data Source [id number] 12/07/2020 11:57:00 AM EDT MEDENT ([facility]) Name Value Range Interpretation Code Description Data Viki rce(s) Supporting Document(s) C reactive protein [Mass/volume] in Serum or Plasma by High sensitivity method 0.95 mg/dL 0.00-0.30 [facility] ([facility]) Erythrocyte sedimentation rate by Westergren method 24 mm/hr 0-30 [facility] ([facility]) ID Date Data Source [id number] 12/07/2020 11:57:00 AM EDT [facility] ([facility]) Name Value Range Interpretation Code Description Data Viki rce(s) Supporting Document(s) White Blood Count 8.1 10 4.0-10.0 MED[facility] ([facility]) Red Blood Count 4.07 10 4.00-5.40 [facility] ([facility]) Hemoglobin 12.3 g/dL 12.0-15.5 MED[facility] ([facility]) Mean Corpuscular Volume 94.6 fl 80.0-96.0 M EDENT ([facility]) Mean Corpuscular Hemoglobin 30.2 pg 27.0-33.0 [facility] ([facility]) Hematocrit 38.5 % 36.0-47.0 [facility]) Platelet Count, Automated 311 10 150-450 [facility] ([facility]) Red Cell Distribution Width 14.3 % 11.5-14.5 [facility] ([facility]) Mean Corpuscular HGB Conc 31.9 g/dL 32.0-36.5 [facility] ([facility]) Neutrophils % 66.6 % 36.0-66.0 [facility] Lymph % 24.9 % 24.0-44.0 [facility] [place] % 6.8 % 2.0-8.0 [facility]) Baso % 0.7 % 0.0-1.0 [facility]) Immature Granulocyte % 0.5 % 0-3.0 [facility] ([facility]) Eos % 0.5 % 0.0-3.0 [facility]) Nucleated Red Blood Cell % 0.0 % 0-0 MED ENT ([facility]) Neutrophils # 5.4 10 1.5-8.5 [facility]) [place] # 0.6 10 0.0-0.8 [facility]) Lymph # 2.0 10 1.5-5.0 [facility]) Baso # 0.1 10 0.0-0.2 [facility]) Eos # 0.0 10 0.0-0.5 [facility]) ID Date Data Source [id number] 11/23/2020 01:12:00 PM EDT MED[facility] ([facility]) Name Value Range Interpretation Code Description Data Viki rce(s) Supporting Document(s) Erythrocyte sedimentation rate by Westergren method 27 mm/hr 0-30 [facility] ([facility]) C reactive protein [Mass/volume] in Serum or Plasma by High sensitivity method 0.94 mg/dL 0.00-0.30 [facility] ([facility]) ID Date Data Source [id number] 11/23/2020 01:12:00 PM EDT [facility] ([facility]) Name Value Range Interpretation Code Description Data Viki rce(s) Supporting Document(s) White Blood Count 10.5 10 4.0-10.0 [facility] ([facility]) Red Blood Count 4.06 10 4.00-5.40 MED[facility] ([facility]) Hemoglobin 12.5 g/dL 12.0-15.5 MED[facility] ([facility]) Hematocrit 39.2 % 36.0-47.0 [facility] ([facility]) Mean Corpuscular HGB Conc 31.9 g/dL 32.0-36.5 MED[facility] ([facility]) Mean Corpuscular Hemoglobin 30.8 pg 27.0-33.0 MED[facility] ([facility]) Mean Corpuscular Volume 96.6 fl 80.0-96.0 M EDENT ([facility]) Red Cell Distribution Width 14.6 % 11.5-14.5 MED[facility] ([facility]) Platelet Count, Automated 383 10 150-450 MED[facility] ([facility]) Lymph % 22.5 % 24.0-44.0 [facility] ([facility] Neutrophils % 68.7 % 36.0-66.0 MED[facility] ([facility]) [place] % 7.2 % 2.0-8.0 [facility] ([facility]) Immature Granulocyte % 0.4 % 0-3.0 [facility] ([facility]) Eos % 0.4 % 0.0-3.0 [facility] ([facility]) Baso % 0.8 % 0.0-1.0 [facility] ([facility]) Nucleated Red Blood Cell % 0.0 % 0-0 MED ENT ([facility]) Neutrophils # 7.2 10 1.5-8.5 MED[facility] ([facility]) Lymph # 2.4 10 1.5-5.0 [facility] ([facility]) Baso # 0.1 10 0.0-0.2 [facility] ([facility]) Eos # 0.0 10 0.0-0.5 [facility] ([facility] [place] # 0.8 10 0.0-0.8 [facility]) ID Date Data Source [id number] 11/13/2020 12:31:00 AM EDT [facility] Name Value Range Interpretation Code Description Data Viki rce(s) Supporting Document(s) SARS coronavirus 2 RNA [Presence] in Res piratory specimen by BRO with probe detection NEGATIVE [facility] This lab was ordered by [facility] a nd reported by [facility]. ID Date Data Source [id number] 11/12/2020 07:14:00 PM EDT MEDENT ([facility]) Name Value Range Interpretation Code Description Data Viki rce(s) Supporting Document(s) White Blood Count 8.8 10 4.0-10.0 MEDENT ([facility]) Hemoglobin 12.2 g/dL 12.0-15.5 MEDENT ([facility]) Red Blood Count 4.03 10 4.00-5.40 MEDENT ([facility]) Mean Corpuscular Volume 94.8 fl 80.0-96.0 MEDENT ([facility]) Mean Corpuscular Hemoglobin 30.3 pg 27.0-33.0 [place] DENT ([facility]) Hematocrit 38.2 % 36.0-47.0 [facility] Mean Corpuscular HGB Conc 31.9 g/dL 32.0-36.5 MEDE NT ([facility]) Red Cell Distribution Width 14.4 % 11.5-14.5 [place] DENT ([facility]) Neutrophils % 69.2 % 36.0-66.0 MEDENT ([facility]) Lymph % 21.0 % 24.0-44.0 [facility]) Platelet Count, Automated 304 10 150-450 MEDE NT ([facility]) [place] % 7.6 % 2.0-8.0 [facility] Eos % 1.3 % 0.0-3.0 [facility]) Baso % 0.6 % 0.0-1.0 [facility]) Immature Granulocyte % 0.3 % 0-3.0 MEDENT ([facility]) Nucleated Red Blood Cell % 0.0 % 0-0 MED ENT ([facility]) Neutrophils # 6.1 10 1.5-8.5 MEDENT ([facility]) Lymph # 1.8 10 1.5-5.0 [facility]) [place] # 0.7 10 0.0-0.8 [facility]) Baso # 0.1 10 0.0-0.2 [facility]) Eos # 0.1 10 0.0-0.5 [facility]) ID Date Data Source [id number] 11/12/2020 07:14:00 PM EDT MEDENT ([facility]) Name Value Range Interpretation Code Description Data Viki rce(s) Supporting Document(s) C reactive protein [Mass/volume] in Serum or Plasma by High sensitivity method 3.05 mg/dL 0.00-0.30 MEDENT ([facility] ) ID Date Data Source [id number] 11/12/2020 07:14:00 PM EDT MED[facility] ([facility]) Name Value Range Interpretation Code Description Data Viki rce(s) Supporting Document(s) Glucose, Fasting 78 mg/dL 70-100 MEDENT ([facility]) Blood Urea Nitrogen 6 mg/dL 7-18 MEDENT ([facility]) Creatinine For GFR 0.70 mg/dL 0.55-1.30 MEDENT ([facility]) Glomerular Filtration Rate Laboratory test result [facility]) <content>Units are mL/min/1.73 m2</content>
<content></content>
<content>Chronic Kidney Disease Staging per NKF:</content>
<content></content>
<content>Stage I & II GFR >=60 Normal to Mildly Decreased</content>
<content>Stage III GFR 30- 59 Moderately Decreased</content>
<content>Stage IV GFR 15-29 Severely Decreased</content>
<content>Stage V GFR <15 Very Little GFR Left</content>
<content>ESRD GFR <15 on SOCIAL SCIENCE RESEARCH ASSISTANT</content>
<content></content> Potassium Serum 5.9 meq/L 3.5-5.1 MEDENT ([facility]) Testing was performed on a hemolysed spe cimen. Suggest recollection of specimen for more accurate test results. Sodium Level 138 meq/L 136-145 MEDENT ([facility]) Carbon Dioxide Level 24 meq/L 21-32 MEDENT ([facility]) Anion Gap 7 meq/L 8-16 MEDENT ([facility]) Chloride Level 107 meq/L 98-107 MEDENT ([facility]) Calcium Level 7.8 mg/dL 8.8-10.2 MEDENT ([facility]) ID Date Data Source [id number] 11/12/2020 07:14:00 PM EDT MEDENT ([facility]) Name Value Range Interpretation Code Description Data Viki rce(s) Supporting Document(s) Erythrocyte sedimentation rate by Westergren method 37 mm/hr 0-30 MEDENT ([facility]) ID Date Data Source [id number] 11/10/2020 01:59:00 PM EDT [facility] Name Value Range Interpretation Code Description Data Viki rce(s) Supporting Document(s) Erythrocytes [#/volume] in Blood by Automated count 3.89 x10*6/UL 4.2 0-6.30 MEDENT ([facility]) Leukocytes [#/volume] in Blood by Automated count 9.2 x10*3/UL 4.1-10 .9 MEDENT ([facility]) Hemoglobin [Mass/volume] in Blood 12.1 g/dL 12.0-18.0 MEDENT ([facility]) MCV 90.2 fL 80.0-97.0 [facility] MCH 31.2 pg 26.0-32.0 MEDENT ([facility]) Hematocrit [Volume Fraction] of Blood by Automated count 35.1 % 3 7.0-51.0 MEDENT ([facility]) Platelets [#/volume] in Blood by Automated count 386 x10*3/UL 140-440 MED[facility] ([facility]) Erythrocyte distribution width [Ratio] by Automated count 14.1 % 11.6-13.7 MEDENT ([facility]) MCHC 34.5 g/dL 31.0-38.0 [facility] Mid % 4.7 % 1.7-9.3 [facility] Lymph % 17.1 % 10.0-58.5 [facility] MPV 7.9 FL 7.8-11.0 [facility] ([facility]) Mid # 0.5 x10*3/UL 0.1-0.6 MEDENT ([facility]) Neut % 78.2 % 37.0-92.0 [facility]) Lymph # 1.5 x10*3/UL 0.6-4.1 MEDENT ([facility]) Neut # 7.2 x10*3/UL 2.0-7.8 MED[facility] ([facility]) ID Date Data Source [id number] 11/10/2020 01:59:00 PM EDT MEDENT ([facility]) Name Value Range Interpretation Code Description Data Viki rce(s) Supporting Document(s) Glucose [Mass/volume] in Serum or Plasma 79 mg/dL 74-99 MEDENT ([facility]) 100-125 mg/dL PRE-DIABETES/FASTING >126 mg/dL DIABETES/FASTING Urea nitrogen [Mass/volume] in Serum or Plasma 7 mg/dL 7-18 MEDENT ([facility]) Creatinine 0.8 mg/dL 0.6-1.3 [facility] ([facility]) Sodium [Moles/volume] in Serum or Plasma 137 meq/L 136-145 MED[facility] ([facility]) Potassium [Moles/volume] in Serum or Plasma 3.6 meq/L 3.5-5.1 [facility]) Chloride [Moles/volume] in Serum or Plasma 103 meq/L 98-107 [facility] ([facility]) Carbon dioxide, total [Moles/volume] in Serum or Plasma 30 meq/L 21 -32 [facility] ([facility]) Glomerular filtration rate/1.73 sq M pre dicted among blacks [Volume Rate/Area] in Serum or Plasma by Creatinine-based formula (MDRD) Laboratory test result [facility] ([facility]) <content>CHRONIC KIDNEY DISEASE STAGING PER NKF</content>
<content></content>
<content>STAGE I & II GFR >= 60 NORMAL TO MILDLY DECREASED</content>
<content>STAGE III GFR 30-59 MODERATELY DECREASED</content>
<content>STAGE IV GFR 15-29 SEVERELY DECREASED</content>
<content>STAGE V GFR <15 VERY LITTLE GFR LEFT</content>
<content>ESRD GFR <15 ON SOCIAL SCIENCE RESEARCH ASSISTANT</content>
<content></content> Glomerular filtration rate/1.73 sq M pre dicted among non-blacks [Volume Rate/Area] in Serum or Plasma by Creatinine-based formula (MDRD) Laboratory test result [facility] ([facility] ) Calcium [Mass/volume] in Serum or Plasma 8.5 mg/dL 8.5-10.1 [facility] ([facility]) ID Date Data Source [id number] 11/03/2020 10:30:00 AM EDT [facility] Name Value Range Interpretation Code Description Data Viki rce(s) Supporting Document(s) SARS-CoV-2 (COVID-19) RNA [Presence] in Respiratory specimen by BRO with probe detection Not Detected [facility] This lab was ordered by [facility] and reported by [employer]. ID Date Data Source [id number] 11/01/2020 06:49:00 PM EDT [facility] ([facility]) Name Value Range Interpretation Code Description Data Viki rce(s) Supporting Document(s) Laboratory test finding (navigational concept) 41.0 % 38.0-51.0 [facility] ([facility]) Laboratory test finding (navigational concept) 137 meq/L 136-145 [facility] ([facility]) Laboratory test finding (navigational concept) 82 mg/dL 70-105 [facility] ([facility]) Laboratory test finding (navigational concept) 3.4 meq/L 3.5-5.1 [facility] ([facility]) Laboratory test finding (navigational concept) 21.0 MM/L 23.0-27.0 [facility] ([facility]) Laboratory test finding (navigational concept) 105 meq/L 98-109 [facility] ([facility]) Laboratory test finding (navigational concept) 4.7 mg/dL 4.5-5.3 [facility] ([facility]) Laboratory test finding (navigational concept) 5 mg/dL 8-26 [facility] ([facility]) Laboratory test finding (navigational concept) 0.6 mg/dL 0.6-1.3 [facility] ([facility]) ID Date Data Source [id number] 11/01/2020 06:44:00 PM EDT [facility] ([facility]) Name Value Range Interpretation Code Description Data Viki rce(s) Supporting Document(s) White Blood Count 10.2 10 4.0-10.0 [facility] ([facility]) Red Blood Count 4.22 10 4.00-5.40 [facility] ([facility]) Hemoglobin 12.8 g/dL 12.0-15.5 [facility]) Hematocrit 39.5 % 36.0-47.0 [facility] Mean Corpuscular Volume 93.6 fl 80.0-96.0 [facility] ([facility]) Mean Corpuscular HGB Conc 32.4 g/dL 32.0-36.5 [facility] ([facility]) Mean Corpuscular Hemoglobin 30.3 pg 27.0-33.0 [facility] ([facility]) Platelet Count, Automated 317 10 150-450 [facility] ([facility]) Neutrophils % 68.2 % 36.0-66.0 [facility] ([facility]) Red Cell Distribution Width 14.2 % 11.5-14.5 [facility] ([facility]) Lymph % 23.4 % 24.0-44.0 [facility]) Eos % 0.4 % 0.0-3.0 [facility] ([facility]) [place] % 6.9 % 2.0-8.0 [facility]) Immature Granulocyte % 0.4 % 0-3.0 [facility] ([facility]) Baso % 0.7 % 0.0-1.0 [facility]) Neutrophils # 7.0 10 1.5-8.5 [facility] ([facility]) Nucleated Red Blood Cell % 0.0 % 0-0 [facility] ([facility]) Eos # 0.0 10 0.0-0.5 [facility]) [place] # 0.7 10 0.0-0.8 [facility]) Lymph # 2.4 10 1.5-5.0 [facility]) Baso # 0.1 10 0.0-0.2 [facility]) ID Date Data Source [id number] 11/01/2020 06:44:00 PM EDT [facility] ([facility]) Name Value Range Interpretation Code Description Data Viki rce(s) Supporting Document(s) Inr 0.87 [facility] ([facility]) THERAPUTIC HUMAN INR VALUES INDICATIONS NORMAL RANGES PROPHYLAXIS/TREATMENT OF: VENOUS THROMBOSIS 2.0-3.0 PULMONARY EMBOLISM 2.0-3.0 PREVENTION OF SYSTEMIC EMBOLISM FROM: TISSUE HEART VALVES 2.0-3.0 ACUTE MYOCARDIAL INFARCTION 2.0-3.0 VALVULAR HEART DISEASE 2.0-3.0 ATRIAL FIBRILLATION 2.0-3.0 MECHANICAL VALVES(HIGH RISK) 2.5-3.5 RECURRENT MYOCARDIAL INFARCTION 2.5-3.5 Prothrombin Time 12.2 s 12.7-14.5 [facility] ([facility]) Partial Thromboplastin Time 25.9 s 25.9-37.0 [facility] ([facility]) ID Date Data Source [id number] 11/01/2020 10:46:00 AM EDT [facility] ([facility]) Name Value Range Interpretation Code Description Data Viki rce(s) Supporting Document(s) Appearance, Urine Laboratory test result [facility] ([facility]) Color, Urine Laboratory test result [facility] ([facility]) PH,Urine 6.0 units 5.0-9.0 [facility]) Protein, Urine Auto Laboratory test result [facility] ([facility]) Specific [place] Urine Auto 1.003 1.002-1.035 [facility] ([facility]) Glucose, Urine (Ua) Auto Laboratory test result [facility] ([facility]) Ketone, Urine Auto Laboratory test result [facility] ([facility]) Urobilinogen, Urine Auto 0.2 mg/dL 0.0-2.0 [facility] ([facility]) Bilirubin, Urine Auto Laboratory test result [facility] ([facility]) Nitrite, Urine Auto Laboratory test result [facility] ([facility]) Leukocyte Esterase, Urine Auto Laboratory test result [facility] ([facility]) WBC, Urine Auto 4 /HPF 0-3 [facility] ([facility]) Blood, Urine Blood Laboratory test result [facility] ([facility]) Bacteria, Urine Auto Laboratory test result [facility] ([facility]) RBC, Urine Auto 1 /HPF 0-3 [facility] ([facility]) Mucus, Urine Laboratory test result [facility] ([facility]) Squamous Epithelial Cell Ur AU 3 /HPF 0-6 [facility] ([facility]) Hyaline Cast, Urine Auto 0 /LPF 0-1 [facility] ([facility]) ID Date Data Source [id number] 11/01/2020 10:46:00 AM EDT [facility] ([facility]) Name Value Range Interpretation Code Description Data Viki rce(s) Supporting Document(s) Bacteria identified in Urine by Culture Laboratory test result [facility] ([facility]) FULL REPORT IN LAB NOTES (eCW and [facility] ). NO GROWTH ID Date Data Source [id number] 10/04/2020 01:10:00 PM EDT [facility] ([facility]) Name Value Range Interpretation Code Description Data Viki rce(s) Supporting Document(s) Slide Review Laboratory test result [facility] ([facility]) Slide and/or specimen referred to Pathol ogist for review. Results of the review are located in the EMR Pathology module under Peripheral Smear when completed. Reason For Review Laboratory test result [facility] ([facility]) WBC/LEUKEMIA/BLAST Source Laboratory test result [facility] ([facility]) PERIPHERAL SMEAR ID Date Data Source [id number] 10/04/2020 01:10:00 PM EDT [facility] ([facility]) Name Value Range Interpretation Code Description Data Viki rce(s) Supporting Document(s) Bacteria identified in Urine by Culture Laboratory test result [facility] ([facility]) FULL REPORT IN LAB NOTES (eCW and [facility] ). NO GROWTH ID Date Data Source [id number] 10/04/2020 12:42:00 PM EDT [facility] ([facility]) Name Value Range Interpretation Code Description Data Viki rce(s) Supporting Document(s) Surgical pathology study Laboratory test result [facility] ([facility]) 10/05/2020 - 0842 PERPHERAL SMEAR REVIEW Peripheral smear: Leukocytosis associated with an increased in neutrophils. Erythrocytes appear normal in number and are overall normochromic. Nucleated red cells are not seen. Platelet count within normal limits. No blast forms are identified. 10/05/2020 - 0842 Signed LUI DONNELLY MD 10/05/2020 0843 ID Date Data Source [id number] 10/04/2020 12:42:00 PM EDT [facility] ([facility]) Name Value Range Interpretation Code Description Data Viki rce(s) Supporting Document(s) Urine PH 6.5 units 5.0-9.0 [facility]) Urine Appearance Laboratory test result Abnormal (applies to non-numeric results) [facility] ([facility]) Urine Color Laboratory test result [facility] ([facility]) Urine Blood Laboratory test result Abnormal (applies to non-numeric results) [facility] ([facility]) Urine Leukocytes Laboratory test result Abnormal (applies to non-numeric results) [facility] ([facility]) Specific gravity of Urine 1.005 1.005-1.030 [facility] ([facility]) Urine Protein Laboratory test result 0-0 [facility] ([facility]) Glucose [Presence] in Urine Laboratory test result [facility] ([facility]) Urine Nitrite Laboratory test result [facility] ([facility]) Urine Urobilinogen 0.2 mg/dL 0.2-1.0 [facility] ([facility]) Urine Ketone Laboratory test result [facility]) Bilirubin.total [Mass/volume] in Serum or Plasma Laboratory test resu lt [facility] ([facility]) ID Date Data Source [id number] 10/04/2020 12:42:00 PM EDT [facility] ([facility]) Name Value Range Interpretation Code Description Data Viki rce(s) Supporting Document(s) Glucose [Mass/volume] in Serum or Plasma 84 mg/dL 74-99 [facility] ([facility]) 100-125 mg/dL PRE-DIABETES/FASTING >126 mg/dL DIABETES/FASTING Sodium [Moles/volume] in Serum or Plasma 133 meq/L 136-145 [facility] ([facility]) Urea nitrogen [Mass/volume] in Serum or Plasma 9 mg/dL 7-18 [facility] ([facility]) Creatinine 0.8 mg/dL 0.6-1.3 [facility] Carbon dioxide, total [Moles/volume] in Serum or Plasma 30 meq/L 21 -32 [facility] ([facility]) Chloride [Moles/volume] in Serum or Plasma 97 meq/L 98-107 [facility] ([facility]) Calcium [Mass/volume] in Serum or Plasma 9.0 mg/dL 8.5-10.1 [facility] ([facility]) Potassium [Moles/volume] in Serum or Plasma 3.7 meq/L 3.5-5.1 [facility] ([facility]) Glomerular filtration rate/1.73 sq M pre dicted among non-blacks [Volume Rate/Area] in Serum or Plasma by Creatinine-based formula (MDRD) Laboratory test result [facility] ([facility] ) Glomerular filtration rate/1.73 sq M pre dicted among blacks [Volume Rate/Area] in Serum or Plasma by Creatinine-based formula (MDRD) Laboratory test result [facility] ([facility]) <content>CHRONIC KIDNEY DISEASE STAGING PER NKF</content>
<content></content>
<content>STAGE I & II GFR >= 60 NORMAL TO MILDLY DECREASED</content>
<content>STAGE III GFR 30-59 MODERATELY DECREASED</content>
<content>STAGE IV GFR 15-29 SEVERELY DECREASED</content>
<content>STAGE V GFR <15 VERY LITTLE GFR LEFT</content>
<content>ESRD GFR <15 ON SOCIAL SCIENCE RESEARCH ASSISTANT</content>
<content></content> ID Date Data Source [id number] 10/04/2020 12:42:00 PM EDT [facility] ([facility]) Name Value Range Interpretation Code Description Data Viki rce(s) Supporting Document(s) Erythrocytes [#/volume] in Blood by Automated count 4.56 x10*6/UL 4.2 0-6.30 [facility] ([facility]) Leukocytes [#/volume] in Blood by Automated count 13.3 x10*3/UL 4.1-1 0.9 [facility] ([facility]) NOTE: RESULT VERIFIED. Hemoglobin [Mass/volume] in Blood 13.9 g/dL 12.0-18.0 [facility] ([facility]) MCV 90.1 fL 80.0-97.0 [facility]) MCH 30.5 pg 26.0-32.0 [facility] ([facility]) Hematocrit [Volume Fraction] of Blood by Automated count 41.1 % 3 7.0-51.0 [facility] ([facility]) Erythrocyte distribution width [Ratio] by Automated count 13.4 % 11.6-13.7 [facility] ([facility]) Platelets [#/volume] in Blood by Automated count 386 x10*3/UL 140-440 [facility] ([facility]) MCHC 33.8 g/dL 31.0-38.0 [facility] ([facility]) Mid % 5.2 % 1.7-9.3 [facility] ([facility]) MPV 7.7 FL 7.8-11.0 [facility] ([facility]) Lymph % 16.3 % 10.0-58.5 [facility] ([facility]) Mid # 0.8 x10*3/UL 0.1-0.6 [facility] ([facility]) Neut % 78.5 % 37.0-92.0 [facility]) Lymph # 2.1 x10*3/UL 0.6-4.1 [facility] ([facility]) Neut # 10.4 x10*3/UL 2.0-7.8 [facility] ([facility]) ID Date Data Source [id number] 09/30/2020 11:39:00 AM EDT [facility] ([facility]) Name Value Range Interpretation Code Description Data Viki rce(s) Supporting Document(s) Thyrotropin [Units/volume] in Serum or Plasma by Detec tion limit <= 0.05 mIU/L 0.38 uIU/mL 0.36-3.74 [facility] ([facility] ) Thyroxine (T4) free [Mass/volume] in Serum or Plasma 1.21 ng/dL 0.76- 1.46 [facility] ([facility]) ID Date Data Source [id number] 09/30/2020 11:39:00 AM EDT [facility] ([facility]) Name Value Range Interpretation Code Description Data Viki rce(s) Supporting Document(s) Cholesterol [Mass/volume] in Serum or Plasma 163 mg/dL 131-200 [facility] ([facility]) Cholesterol in HDL [Mass/volume] in Serum or Plasma 72 mg/dL 35-60 [facility] ([facility]) Triglyceride [Mass/volume] in Serum or Plasma 93 mg/dL 30-150 [facility] ([facility]) Cholesterol in LDL [Mass/volume] in Serum or Plasma by calcu lation 72 CALC 50-159 [facility] ([facility]) ID Date Data Source [id number] 09/30/2020 11:39:00 AM EDT [facility] ([facility]) Name Value Range Interpretation Code Description Data Viki rce(s) Supporting Document(s) Glucose [Mass/volume] in Serum or Plasma 103 mg/dL 74-99 [facility] ([facility]) 100-125 mg/dL PRE-DIABETES/FASTING >126 mg/dL DIABETES/FASTING Urea nitrogen [Mass/volume] in Serum or Plasma 8 mg/dL 7-18 [facility] ([facility]) Creatinine 0.9 mg/dL 0.6-1.3 [facility] Sodium [Moles/volume] in Serum or Plasma 131 meq/L 136-145 [facility] ([facility]) NOTE: RESULT VERIFIED. Chloride [Moles/volume] in Serum or Plasma 97 meq/L 98-107 [facility] ([facility]) Potassium [Moles/volume] in Serum or Plasma 4.3 meq/L 3.5-5.1 [facility] ([facility]) Calcium [Mass/volume] in Serum or Plasma 9.7 mg/dL 8.5-10.1 [facility] ([facility]) Carbon dioxide, total [Moles/volume] in Serum or Plasma 24 meq/L 21 -32 [facility] ([facility]) Total Bilirubin 0.5 mg/dL 0.2-1.0 [facility] ([facility]) Alkaline phosphatase isoenzyme [Units/volume] in Serum or Pl asma 109 mg/dL 46-116 [facility] ([facility]) Aspartate aminotransferase [Enzymatic activity/volume] in Serum or Plasma 23 U/L 15-37 [facility] ([facility] ) Proteinase 3 Ab [Units/volume] in Serum 7.0 g/dL 6.4-8.2 [facility] ([facility]) Albumin [Mass/volume] in Serum or Plasma 3.9 g/dL 3.4-5.0 [facility] ([facility]) Alanine aminotransferase [Enzymatic activity/volume] in Seru m or Plasma 31 U/L 12-78 [facility] ([facility]) A/G Ratio 1.26 CALC 1.00-1.90 [facility] ([facility]) Glomerular filtration rate/1.73 sq M pre dicted among non-blacks [Volume Rate/Area] in Serum or Plasma by Creatinine-based formula (MDRD) Laboratory test result [facility] ([facility] ) Glomerular filtration rate/1.73 sq M pre dicted among blacks [Volume Rate/Area] in Serum or Plasma by Creatinine-based formula (MDRD) Laboratory test result [facility] ([facility]) <content>CHRONIC KIDNEY DISEASE STAGING PER NKF</content>
<content></content>
<content>STAGE I & II GFR >= 60 NORMAL TO MILDLY DECREASED</content>
<content>STAGE III GFR 30-59 MODERATELY DECREASED</content>
<content>STAGE IV GFR 15-29 SEVERELY DECREASED</content>
<content>STAGE V GFR <15 VERY LITTLE GFR LEFT</content>
<content>ESRD GFR <15 ON SOCIAL SCIENCE RESEARCH ASSISTANT</content>
<content></content> ID Date Data Source [id number] 09/30/2020 11:39:00 AM EDT [facility] ([facility]) Name Value Range Interpretation Code Description Data Viki rce(s) Supporting Document(s) Leukocytes [#/volume] in Blood by Automated count 13.2 x10*3/UL 4.1-1 0.9 [facility] ([facility]) NOTE: RESULT VERIFIED. Hemoglobin [Mass/volume] in Blood 13.3 g/dL 12.0-18.0 [facility] ([facility]) Erythrocytes [#/volume] in Blood by Automated count 4.37 x10*6/UL 4.2 0-6.30 [facility] ([facility]) MCV 90.4 fL 80.0-97.0 [facility] ([facility]) Hematocrit [Volume Fraction] of Blood by Automated count 39.6 % 3 7.0-51.0 [facility] ([facility]) MCH 30.4 pg 26.0-32.0 [facility] ([facility]) Erythrocyte distribution width [Ratio] by Automated count 13.7 % 11.6-13.7 [facility] ([facility]) Platelets [#/volume] in Blood by Automated count 381 x10*3/UL 140-440 [facility] ([facility]) MCHC 33.6 g/dL 31.0-38.0 [facility] MPV 7.9 FL 7.8-11.0 [facility] Lymph % 8.1 % 10.0-58.5 [facility] Mid % 2.9 % 1.7-9.3 [facility]) Lymph # 1.0 x10*3/UL 0.6-4.1 [facility] ([facility]) Neut % 89.0 % 37.0-92.0 [facility]) Neut # 11.8 x10*3/UL 2.0-7.8 [facility] ([facility]) Mid # 0.4 x10*3/UL 0.1-0.6 [facility] ([facility]) ID Date Data Source [id number] 07/10/2020 11:30:00 AM EDT [facility] Name Value Range Interpretation Code Description Data Viki rce(s) Supporting Document(s) SARS-CoV-2 (COVID-19) RNA [Presence] in Respiratory specimen by BRO with probe detection Not Detected [facility] This lab was ordered by [facility] and reported by [employer]. ID Date Data Source [id number] 06/22/2020 03:28:46 PM EDT [facility] Name Value Range Interpretation Code Description Data Viki rce(s) Supporting Document(s) EKG [facility] OVBQYz2mUsIUAhHll1FqUqSxKABaWB6nrgf2A7O9bFLhV3NrvPJxd9fzU9CmL7HhIEXnFDSKBG5YlMRg jb2 [file] +5dSs/Fuel Cell Binder/4DCq1CqF7Vzw/2IykGR1vEAf0DIn5lNB v6d3qx0bF3Aarj4zfMUvqUeLO63q1jJ7dmJOZflcspXoUo9q2mS4oaDQEfvimtKYj38Iam7Qza9BNNu9 3GMb76ylxJpRyq4J7oOslK5zwNyGse5lrsElZki1HMk2SoNOWp/NzID9tfKsRrjasICqD+vl4DaZa31q aWIkiwReWtWx/Eh5aU+MkBzkgXx92x1UZtwPQQqVZR kicZKAHMYTWceiTj/Xpnl8wzWEHBLZ0bhGJ3QABgpxoeiRB0hU2WABm07oHMeiul7N962IH82xIEehfU M/VI72BnYVQvhHJQX5lUKFYg9oNlrZCRAy5iYs+UtaLhi6YfKSyAmlZHJL7YOER9HrsPfBtd5Z7jVYzb R8Gg/zqqWNyZt6JxjsjPSsVznlFG5Rk6fvqQgfIasJ ZMynjXjhTTSK5qKHnhsQJXUUBIO5i//j//O//rv7LJH/jMr/+v/99//6/8r/+7//9f//7//4X9WX+9/7 Rd6+3Bf/7+rL/Q/J5Euhl2a47iiW/KA9c9J8q4cKi/bopV2pPqQLs9fc3qR9c3n+cDYgwFZ5e1/cE/X5 lRv1+ZW76/DH3uEGnNG/7LQPJHC4ECf5Cn3nXYjLnF dwq5XaduoLjEudF+IirD7CluN3jyn7j3AF+Zezkwmje4o7IkWZY/LXVwIkUJ9fuM4lH+6pz6/cU5//k/ tPv/s2QSeeZL/g/MNS+Pxh/QVl6lwHK4pIXf1i9sufJ4X7j5alAKJowxyqQYV1fJIovFq2TjXTIVh9Va +d610Foi38W6ytCggfmOlghGIHQNN59KVynIT6pDN/ z/uUfrpO1yYTeWCwp+8PjE91rKZw1BanmImVuvpa1ihIl21m+WHFd+T0IMacHlak/l2hJxChyWPt0afJ qcsylkv0eXT5G1kQE7su556E+xFi8YZ6xjc5RWmeVrvZVRp5BelExJigM+QuXO+y3xy+Wx89t+/ORz+P d+Pjn8P/rtL+cK9j/vCqz6/cdT/1E1ox258xqi5+5d 1fdWyN2f++sXa/crM+/4FtQZa5p0k/cLmGGziBz+A/e/YMMhpFJpeWLoYnAYF20qxt3FKLtXZTo9g5el m7qhuomyd1rm/uxg/cQps1thhNz1oyYQa4Jraodto1+t16tzV+OBIE3I7x4gls8j/8v8ErpiH4rBD/C7 kHcg/cKrmkb2T9jm9e3kG20y2pLf/q2k/iO+enj5W9 zrwkqvFuw3Btg5P+n/aiXuW37t3RnsV67+XVy94D1ple7n8lI4/fvb4bF+65LtwUwr3/dapft/18Kit7 XwV8623+bEJ9ouGrJm+iPp/rNRl/w/EOJhDDqmCChwT86POlsSVi22+LMiQKvYOFsEFoTWX8wGDG5tUk Ycoq4uq30t5cnbN9zHQo/G/i8/KjnHmlguPumUFl1r 3zv9ZKwnwq/5itaO2lIFgzOuW3YTfoxYSeOheMbKdN1+/avMvcfj8Ql32rXf7lE/OInyQW6wQDYG7nQ7 xZXAdutVmP6GFmgExXBUePxwBz7ldfpmq+lcG/MvhXBv/JCxLX9vsN6f/8qwX/zf1dh3jguUn4nO64eE pwSw66hdyKVha0ZorSbZZ16W4N/ZteTktqFqsjpV5Q YMjVGeelc3+SOlQPF30z1MyWl+b+Gfe7tNbGZn+LWHPbj9pfsVb0c1NOm4FX+Srinivas/WxseB01dTi/6vpU azk+D3w+/tUq/8rrO+mvk6zra/btsVz+BfDfp6b38NoJNrwHy0/duaJ1QjehhH42fuqt1v0/0kGLTz6f Vwdl0Ou4hb39V8qxTUOA2gtrt+Ndj8G5tFrfAJxfo4 /N/+u+8B4FKNzLS3PXy+AEPoPLXjWWkZWQW/yz7VDN7HVhkPcX2PVV0q1xptzP6ut/F6T3yzYDr5zl// RxXycyvy3l6whP3az84yl+e87c0L/LlXUj/y73+rxDt8wxn4p6o/vPN+wc446uwu4u5J9dpjl//aUb8m 9/ycteXf/SLlx2g1bmB0f123CHguxfxEeojN0goFCy uYyf4/RcHMeDlL2GRZfLQNgWDqAhct7mgKSf3241J72LENCNMLIQov0zNXKOev2qIqx4yN0S11domVrl V3W8cOoDIkAt3MQ7YmdlwY6k2lCc6hfgeC/ADhzAuL+O++brT4s6lIULbvko4Hi4uj9do3/l8K8c/pVH As/71/fEcxz+le95H/Michelle+i9XEvoAQ/8bwLP+8jhXz n8K4d/0BeoF61yg828fMGSkjCd3QEgkZPpbd/7EWAFNmDILf+azFXy6MIlqdCbAeD5g2F/ChWmWm9ZlI 8K+FcB/vyiMbK8i8Y1ciRgzlMbt2ryRL/uFAQhom400L2O81uq9BREJOgXRNOBwFG6nXXJBavfuI3LQw rJ7oRKQbYFcgubC3Ane/p8/+XNZKFKoAhaUy6fwm+6 MZYo/6qx/nySKP/K6/P1iy9F+Qc6mNZw/JxYGziBz+Dyr+47K8q/BpKDo1oP55ryp9N+d+AYfcq/unGw 8ImbhU/4KOH2nAp8tfMFUqbLaY8S+bvy6lwuCjW8o2j/wcRPHyUeGVURRjVJScPCrqB51WHybmB27n7d P2YZBxBPrwGjG202HUFlU0UTl+t67/fP+JNxBBjjfG qm2edy717LQDvBJ8y7MS0KPlqIag/EpZQ3Z1r8b36dZ966/Tj3Yj394J+UA1kdUql7yRMmW053PqTN7v /ELxP5iLGbmNHM7sBIKDsLV/1McnJeCLCRx9yZL08EkhqmFvt1lbo5mru9rwt6itjnu2153Am4neW+tR G/2ibeyyWwyd09uYw5J4Iv5JaM8zhHFHjAPVkOR/DY 571mHbpXAmNe+QMswPM+2j7vo+6V8QAYOr0u+7w9gc/gsleNBXjWvztm/btjATtwAG/yTK99abF/uLcA Q+1z38nf4bvte/N5HsYO37x83s6a/+8ZnGOfN/cezDyfESDL5AEBnSJXtNr9bG1knX3AcuM6AJ1T2TM0 X3DY4D8US8lFUb6vIPrdrQ2Y0/[id number] [file] ++nce8H1y8r8ieWYv5g3rg+35/0/3652j7/kXl40qB iZnPbu+3WMa+P7z8/mCL38RYG1cj3d0rQ9UGo0+4vaflTlecVBo/BcQY5SS669nIPY/NamPXJ/uTQ3f7 v7vP/8g3q3HmwKpM6W0EYN4RS2y1kx5dsQuftYzn34U6x9QP53Dg5x8xC86/398+/tCVr5kwx51vQsip UtHjLpZyhxb91CJusy0SrvTpGn3otvn60e3r+Can3c 32/bMLZyWUX/j5y/jesi/PvMIzDrsd6VB5y+/i4wM58Vq36MB3YZAXHqW1tlpo/afQ7meC2fdkCgAkkxdR PH3+9Uh7j6E/Qf1pv6H0ll8aqAgy4DxymQUk4xpU8vPBjjfoOvhCFpTQ3KGK3md8HwQiJ4LSHbe9PhQW afWMo6jEJjPOkwtrXxp0OybqvaQ6Moq6LxQvGdRQHw AcYeAzn3ILKiEyH4yHVhEcNwIUHfE1SwBMMfRdH5ClJsETAJOS2CEKRwpuPqTpVaHRV+SlVpKJ5tuqoa JOZja5RkFPmsHOkmIQWvR0W8qLshWCZvU6PfwJ08ZUVhC4KqkrW2BRN6XWIuJiZhOMLynMKtFUUwBWF+ CxNmVA1aczfrHQOrm4LjOVszAMP1uH2nFQcIOUDVGI nSOWclGuC2k45xyyPLNXZdNMMdOK6DtjJksVkctoWwdRAhQXP2NxDrQAT0KZWyUOI8IBQWXFNfUZMyWB OlPEGgJ9EdiSzfKBuVGVKAJTuJIRmlOyEfi8E8FTLfjoUOVbnTUCazQtTJLZMbNPYcTxN0AJEmOZNcF8 AhidJlrLKdTVMBVXvzCexiYVLmjR4afInnH1XjPGU8 m5OsPP0UR6IxAHYqSYHBLMC2r7LwKNIslgubqoqiIvDdDPKaJVLzCXVuAS7Aor9pjVMoioOgBIEFLPkn FkewQL3otKqiqrcvS3GykGSaZOC+QdEnVB2nib1+OzHwXFPgHmj5RQSgMVdwTKSnHWGfWQLlC6soXWLp XrKuUIAkNpErPL5Ny8LvlCZxLc0pcgIaGxgQuSXzZb hiUCBuGSIcHGBgItRCUGMdDBZjKVCvGHR8CXFfUALzYGptDLUmSVZ9UGl4PKBhISDaHV5lUpJsQQMrCF m7MZOzKIVyFNIaxmGIHWGtLGM1JUinXTTaAUJeGWAmSQthKVBmQGJfWYFdATM8GTB8ECKwOsZsNKGnJD XhWOZbVXKkRPSbxiHKZPBoJNJlUWR1VZWjAPUfQXMx CSirUJIsFBUpHPoaGTGqRDGqSL7tLpRpNGQrMDAvISjgVKAcGQAggoXIVCXtHQDaGHMpOZDgSONoYRIl RJycOLYzICTsVITjHAVvCYMkLD7vVzWzIBRpMOA3IUEeIZWqAQQiaiZOKRElHDYgTJw3HYIkDMCcZPDj INmeIXLnFGWkYMV3WQBtKGJlXO9wDeEqFOXcYFZ0Gy DtIVKhMEPxesZLWALuUKDeGAL8OyFcXNBvVDHfIBhzYUSpSOOyKFqgEMFmOSWfWF1dGiThOFXmAONiTG giILKcAUIqkoYMRIMrOEZrZJKjBaDaQOOvMPYbCSpySKSpJWZ5EsSuDEKfZFOfEY2lZeTtWDFtKQA4RQ kgMDAwMDAgbiAKMDAwMDAwMTczNCAwMDAwBuIAow KJPoRCOvOOH5EDQxMVGqOQ7uUyNlVSQbIYOuAYDtWyO2JeAlJsKYlYLiiVdrggy9PLcfS0y6XWPqATvc OG0lbuBgJLYlBkqbTs1ejOT6MPBoDguWVx3Te1AiewR2scPqGeF8IsXlUtTuKQ5O ID Date Data Source [id number] 06/22/2020 01:40:29 PM EDT [facility] Name Value Range Interpretation Code Description Data Viki rce(s) Supporting Document(s) &PDF [facility] QDNMFk7zJdSBWrCa06/FHIdrKVSgm3BaMSkqKKc4ZTuqWCYkB2DmrMllIJtTUOpRHYpTIgBXDUFyWTU4 waW [file] d4wDqPriXONMmZ+6ZKz5w6gHRjVV+JLPccj0H+audit partner [file] 6AEbWHTDF6XPZRS4ch+ASSET PROTECTION PROFESSIONAL+fy8J7hYYbdsuh9ew/pqKB3RfoXWWA6OrX9BbvyiTTqD6vM6jpGy79q0iLs [file] eey0KaA2uCIRqRTk8quBCBQP0PK1KtDtkTsE+KIjSXOK+uLu8lTta2SzpkekJYfFcnTXKk0NiJ+funeral home assistant/d [file] NcbeHdSdZV0EFc3UArS8QZI8hZBkXo8YWEKaDZKCUlRlBY0EYOp= ID Date Data Source [id number] 06/22/2020 12:40:06 PM EDT [facility] Name Value Range Interpretation Code Description Data Viki rce(s) Supporting Document(s) EKG [facility] YWVFRv1xWyQACbXod9YyTpTjLUDnWF0ppvy2G1S0nOYqN0BzqBAzq6nhE9AoG9MyEWMzSPOQUG1AoCIx jb2 [file] v4R2pmJFTYsjGoS99gtDqJe1ddkw6pdIb2xylZ+MfDLJE/P1ob5u8aYIx//5Fp4/0/znv//hand cloth examiner//8ZePP f//r58DP//283r34V4/917/99b/87f/40/z587f/+6//9re/5Ha1o2GDd7Xvr//7t3/6r7cfq91g//zz [file] t/Sb/7oSbUhYZQ+fwAWqyA11lyfQnj/c/yu5dM [file] [facility]076co8E6IT5jUoWi6ZP5HjhV4zAUQvYVZ2UPy [file] YwPtkDIo4Pl0LdlcR3dnGgLiFuYAvxOgAmIL1N ID Date Data Source [id number] 06/18/2020 07:38:00 AM EDT [facility] FASTING: UNKNOWNReceived: 06/18/2020 at 07:10:00 QPT: [facility], [address], [address] [place] [address], [phone], Efra Mendez MD Received: 06/18/2020 at 07:10:00 QPT : [facility], [address], [address] [place] [address], [phone], Efra Mendez MD Received: 06/18/2020 at 07:10:00 QPT : [facility], [address], [address] [place], [address], Efra Mendez MD Name Value Range Interpretation [...] risk factors.LDL-C is now calculated using the Sergey-Ivonecalculation, which is a validated novel method providingbetter accuracy than the Friedewald equation in theestimation of LDL-C.Sergey SS et al. MARYCARMEN. 2013;310(19): 9492-8063(http://education.General Specific.[place]/faq/QOO316) Cholesterol.total/Cholesterol in HDL [Mass Ratio] in Serum [...] considered a therapeuticoption. ID Date Data Source [id number] 06/18/2020 07:38:00 AM EDT [facility] FASTING: UNKNOWNReceived: 06/18/2020 at 07:10:00 QPT: [facility], [address], [address] [place], [address], Efra Mendez MD Received: 06/18/2020 at 07:10:00 QPT : [facility], [address], [address] [place], [address], Efra Mendez MD Received: 06/18/2020 at 07:10:00 QPT : [facility], [address], [address] [place], [address], Efra Mendez MD Name Value Range Interpretation [...] is approximately 13% higher for peopleidentified as -Malawian. eGFR NON-AFR. NAMIBIAN 77 mL/min/1.73m2 > OR [...] results) [facility] ID Date Data Source [id number] 06/18/2020 07:38:00 AM EDT [facility] FASTING: UNKNOWNReceived: 06/18/2020 at 07:10:00 QPT: [facility], [address], [address] [place], [address], Efra Mendez MD Received: 06/18/2020 at 07:10:00 QPT : [facility], [address], [address] [place], [address], Efra Mendez MD Received: 06/18/2020 at 07:10:00 QPT : [facility], [address], [address] [place], [address], Efra Mendez MD Name Value Range Interpretation [...] in Blood by Automated count 5725 cells/uL [id number] Normal (applies to non-numeric results) [facility] [...] results) [facility] ID Date Data Source [id number] 06/17/2020 11:30:00 AM EDT [facility] ([facility]) Name Value Range Interpretation Code Description Data Viki rce(s) Supporting Document(s) Coronavirus 2019 [facility] Laboratory test result [facility] ([facility]) ASSAY INFORMATION: Real Time RT-PCR NOTE: The COVID-19 assay has been cleared by the U.S. Food and Drug Administration under the Emergency Use Authorization (EUA). [facility] and [facility] are designated as high complexity laboratories by the Clinical Laboratory Improvement Amendments of 1988(CLIA) and are qualified to perform this test. Not Detected ID Date Data Source [id number] 06/17/2020 11:30:00 AM EDT [facility] Name Value Range Interpretation Code Description Data Viki rce(s) Supporting Document(s) SARS-CoV-2 (COVID-19) RNA [Presence] in Respiratory specimen by BRO with probe detection Not Detected [facility] This lab was ordered by [facility] and reported by [facility]. ID Date Data Source [id number] 06/15/2020 07:10:34 PM EDT [facility] Name Value Range Interpretation Code Description Data Viki rce(s) Supporting Document(s) &PDF [facility] UDRGTg0bLnCIEpCn89/KQTftXTEep1BaKCdqFBf5LCtdZTLyX4VdwOnzQDnXJIeMWLzAHzZLUOKgZDY4 FcG [file] AgICAgICAgICAgICAgICAgICAgICAgICAgICAgICAg WCZgZVAmQCVgMNKqYJNbOUDhUQQuUILkHTAdDQKrWBEySUEqRUSsAWKaULWhBPEgMIDaXZMnLR5MIISt ICAgICAgICAgICAgICAgICAgICAgICAgICAgICAgICAgICAgICAgICAgICAgICAgICAgICAgICAgICAg ICAgICAgICAgICAgICAgICAgICAgICAgICAgICAgIC HtDCQuXT2BFXHmRZLsKTXwQJEgQLJfVDHgNSPfPSJeEWKmPLObGLWfFZIxFWQlUCSzGJIgHKBoGGOyFO EmAHHrNGGbLQCtVYXiOIYhBNBwGOBhMGCiVRIpXZXrIVLcIQCjGTVkFJHjGPDwJN0EUQFkJIIuQWPcNA AgICAgICAgICAgICAgICAgICAgICAgICAgICAgICAg WEHyKTIsXXRdDDEvBMWzFDCtGFMxYGRaJKJsIKUqIMKpAJDwKOIkBLFfKYDgVYNbUDDzZNKdJGAsPO9T ICAgICAgICAgICAgICAgICAgICAgICAgICAgICAgICAgICAgICAgICAgICAgICAgICAgICAgICAgICAg ICAgICAgICAgICAgICAgICAgICAgICAgICAgICAgIC WkOYBuVYKvED8DOIZdKKOwQCZoRAWeWDYmOJLbRQInMHMpUHTfFWUwSDPbKVVmAFHnTUTxCODcFENzAY SjFHGeRENwRHVkGHXqZBWwYXOeTHQfSBFlZFPhQWFyLRGhJQUnHGFkAKTdDVUoCHZpFZ4MLHMvSXJqXG AgICAgICAgICAgICAgICAgICAgICAgICAgICAgICAg ICAgICAgICAgICAgICAgICAgICAgICAgICAgICAgICAgICAgICAgICAgICAgICAgICAgICAgICAgICAg WY5UVKSsRKMfJPXtZJLxQISaSLOoCBVsOKHcLKAdSGKuRXYlFNWoVEXoTTRrUNZcTYCoHFKtXROaPGKn ICAgICAgICAgICAgICAgICAgICAgICAgICAgICAgIC GqXBChTMGcLFQeEH3KQHHlHZLdRDVqNTHbNIZaRPUfAAMaNIGtLEChEJWdRRPeVGIuBRUiJDNkLOWqXB QaNNFfLFGgVUHpNVWrEIOfKNPqUKJoXJJrHVGzBTUkCBLtGBFjGGEcSHXxKDCeXQLcGKHuZV6HZX60mF Svf9N8BELtUP4cwuo/Tz9NMRquodDfbAUjOZ9GFsVk QG2llv1QTlQbRH3qgt4VKLfVVwJbV5H6sHWdINQkJKMVTeAjU85pRYjeXf17BOwmEWLdEqCgTAh4Yc6S BtHzS3ziEEYeByW8XWZpAmR6JJXkLqJuIYxdNX0Na4DxoZJzTJn+Lp8FPK6gd1BfJYsxRFMlAP9wpx5A ITrTElWhG3B5iXRrO3T5PVghKo4SUAJmIJXgSuDcDH UXXEkeQA9EYI0fmcY4SO2EvSHyPLOyRCBytACzRKs9H45epETeQNyvTM3BRSN+Bryan+Ow8RFEHyWFAmVG OwXtGbODKMBtUfY95xoXZhFBJaHQP1OHUcDx6MALVxS7GmmsTebBjtkdEiLBDoKDVWPG6MTHqwayGhvS LigMjyTI75iZssFA4HFt4YKnLjXG1bjj8JeIWxCw1L AYCkWG6UCTHqOJUlACNdILP5RZFnLrQpLRkvUBXgEXSjUUQ3VCJcBMXdSN8RKwRyUUShQVRbHCJiPHDv CMDipp5OVKFzFPRkNOn9GjGzESXoUCFeDLwyVVWgCTAqLIqnBDVsHHAnME1ZXvUcJXHdFCL6RWkwEYDg HGDzxd1MILXeMBOiUBC6MXMkRUXgEECkIJjuNEKmKZ P1CqO3EMVsDEKdUO5VHrLaPGVnUDS8ElYdRTMtIAKnir6RNGUiIPBmAldmRECvMQAeZYGyXBnaOANmGM A4KLY5LPKkMWXfXR0PEuLsOJYdNZarUPOeGYCzOIUupa9SJUOsPMMyJSI9TNLjVMGoWGYaORhkEVEuRS F6YvL2UKSeTPTyPR1XNsRpJCAtOFa5XCTdVKZkQFEw yg5PQFUwDHZmNXDtRiLeZNNoVLLtMTduTVIkJWA6SsZ9JQEqSVVnBI6YMmBhRBRnJHo2ENexRFQuYRNo xc2FVMBySDWaBXt1WbBiTFAeNJIyDUzrLVUoKSQsYYR2YRWbNWZqQU5WHaUfERPhYWQeDFGnIJVzVBYv oo3XMGApQEMlGPX9LGTxWPAqHNIcCLzmJYRmTCMaIB n9MGSjUZXcTE5UXqCpPSHcSJXwChUfEYQuJROjrw1XLXLsNEUgMeQ0RsReVIUrCEPjWIyuFSYiFWNdYg uiXNImNTWlDZ5VYmDqCAOvFNK8EAPsWTYjQJKori5TPGYpGPBeTaGlPhJiTAXfOAHaVEhuVKRyYCU5PD J9UWOtYNUwKI9XTyNdSUmeOAGSVda9BWlpD4e1THKt VQ4PC4Rhn3SyFxgsJXBHCOkfEU6akrNgICEzMw8ET9hAIndiLrDnNfZxQ7MjMVhxGEK5DdJdGvB1IACd HnXvQ6H4KE2wAHHdEFSdFCBxMPJ2IYHsYhxmY5ZrFoooQUGgVGB5NAwtZoQkRB3XTr4GZgI3JXK0bCCx Ux9SREFiJUGZXtLsQD3TBCu= ID Date Data Source [id number] 05/03/2020 02:47:00 PM EDT [facility] ([facility]) Name Value Range Interpretation Code Description Data Viki rce(s) Supporting Document(s) Glucose [Mass/volume] in Serum or Plasma 103 mg/dL 74-99 [facility] ([facility]) 100-125 mg/dL PRE-DIABETES/FASTING >126 mg/dL DIABETES/FASTING Urea nitrogen [Mass/volume] in Serum or Plasma 7 mg/dL 7-18 [facility] ([facility]) Creatinine 0.9 mg/dL 0.6-1.3 [facility] ([facility]) Sodium [Moles/volume] in Serum or Plasma 137 meq/L 136-145 [facility] ([facility]) Potassium [Moles/volume] in Serum or Plasma 3.8 meq/L 3.5-5.1 [facility] ([facility]) Carbon dioxide, total [Moles/volume] in Serum or Plasma 26 meq/L 21 -32 [facility] ([facility]) Chloride [Moles/volume] in Serum or Plasma 101 meq/L 98-107 [facility] ([facility]) Calcium [Mass/volume] in Serum or Plasma 8.6 mg/dL 8.5-10.1 [facility] ([facility]) Alkaline phosphatase isoenzyme [Units/volume] in Serum or Pl asma 112 mg/dL 46-116 [facility] ([facility]) Aspartate aminotransferase [Enzymatic activity/volume] in Serum or Plasma 20 U/L 15-37 [facility] ([facility] ) Total Bilirubin 0.3 mg/dL 0.2-1.0 [facility] ([facility]) Alanine aminotransferase [Enzymatic activity/volume] in Seru m or Plasma 25 U/L 12-78 [facility] ([facility]) Proteinase 3 Ab [Units/volume] in Serum 6.8 g/dL 6.4-8.2 [facility] ([facility]) Albumin [Mass/volume] in Serum or Plasma 3.8 g/dL 3.4-5.0 [facility] ([facility]) A/G Ratio 1.27 CALC 1.00-1.90 [facility] Glomerular filtration rate/1.73 sq M pre dicted among blacks [Volume Rate/Area] in Serum or Plasma by Creatinine-based formula (MDRD) Laboratory test result [facility] ([facility]) <content>CHRONIC KIDNEY DISEASE STAGING PER NKF</content>
<content></content>
<content>STAGE I & II GFR >= 60 NORMAL TO MILDLY DECREASED</content>
<content>STAGE III GFR 30-59 MODERATELY DECREASED</content>
<content>STAGE IV GFR 15-29 SEVERELY DECREASED</content>
<content>STAGE V GFR <15 VERY LITTLE GFR LEFT</content>
<content>ESRD GFR <15 ON SOCIAL SCIENCE RESEARCH ASSISTANT</content>
<content></content> Glomerular filtration rate/1.73 sq M pre dicted among non-blacks [Volume Rate/Area] in Serum or Plasma by Creatinine-based formula (MDRD) Laboratory test result [facility] ([facility] ) ID Date Data Source [id number] 05/03/2020 02:47:00 PM EDT [facility] ([facility]) Name Value Range Interpretation Code Description Data Viki rce(s) Supporting Document(s) Leukocytes [#/volume] in Blood by Automated count 9.9 x10*3/UL 4.1-10 .9 [facility] ([facility]) Erythrocytes [#/volume] in Blood by Automated count 4.18 x10*6/UL 4.2 0-6.30 [facility] ([facility]) Hemoglobin [Mass/volume] in Blood 13.0 g/dL 12.0-18.0 [facility] ([facility]) MCV 90.1 fL 80.0-97.0 [facility] ([facility]) MCH 31.0 pg 26.0-32.0 [facility] ([facility]) Hematocrit [Volume Fraction] of Blood by Automated count 37.7 % 3 7.0-51.0 [facility] ([facility]) MCHC 34.4 g/dL 31.0-38.0 [facility] ([facility]) Erythrocyte distribution width [Ratio] by Automated count 13.3 % 11.6-13.7 [facility] ([facility]) Platelets [#/volume] in Blood by Automated count 310 x10*3/UL 140-440 [facility] ([facility]) MPV 8.0 FL 7.8-11.0 [facility] ([facility]) Lymph % 21.1 % 10.0-58.5 [facility] ([facility]) Mid % 4.8 % 1.7-9.3 [facility] ([facility]) Neut % 74.1 % 37.0-92.0 [facility] ([facility]) Lymph # 2.1 x10*3/UL 0.6-4.1 [facility] ([facility]) Mid # 0.4 x10*3/UL 0.1-0.6 [facility] ([facility]) Neut # 7.4 x10*3/UL 2.0-7.8 [facility] ([facility]) ID Date Data Source [id number] 03/05/2020 03:00:00 PM EST [facility] ([facility]) Name Value Range Interpretation Code Description Data Viki rce(s) Supporting Document(s) Bacteria identified in Urine by Culture Laboratory test result [facility] ([facility]) FULL REPORT IN LAB NOTES ([facility] ). SPECIMEN APPEARS CONTAMINATED ID Date Data Source [id number] 03/05/2020 03:00:00 PM EST [facility] ([facility]) Name Value Range Interpretation Code Description Data Viki rce(s) Supporting Document(s) Urine PH 6.0 units 5.0-9.0 [facility] ([facility]) Urine Appearance Laboratory test result Abnormal (applies to non-numeric results) [facility] ([facility]) Urine Color Laboratory test result [facility] ([facility]) Urine Blood Laboratory test result Abnormal (applies to non-numeric results) [facility] ([facility]) Urine Leukocytes Laboratory test result Abnormal (applies to non-numeric results) [facility] Specific gravity of Urine 1.005 1.005-1.030 [facility] ([facility]) Urine Protein Laboratory test result 0-0 [facility] ([facility]) Glucose [Presence] in Urine Laboratory test result [facility] ([facility]) Urine Nitrite Laboratory test result [facility] ([facility]) Bilirubin.total [Mass/volume] in Serum or Plasma Laboratory test resu lt [facility] ([facility]) Urine Ketone Laboratory test result [facility] ([facility]) Urine Urobilinogen 0.2 mg/dL 0.2-1.0 [facility] ([facility]) ID Date Data Source [id number] 01/28/2020 11:20:00 AM EST [facility] ([facility]) Name Value Range Interpretation Code Description Data Viki rce(s) Supporting Document(s) Thyrotropin [Units/volume] in Serum or Plasma by Detec tion limit <= 0.05 mIU/L 2.85 uIU/mL 0.36-3.74 [facility] ([facility] ) ID Date Data Source [id number] 01/28/2020 11:20:00 AM EST [facility] ([facility]) Name Value Range Interpretation Code Description Data Viki rce(s) Supporting Document(s) Cholesterol [Mass/volume] in Serum or Plasma 167 mg/dL 131-200 [facility] ([facility]) Cholesterol in LDL [Mass/volume] in Serum or Plasma by calcu lation 82 CALC 50-159 [facility] ([facility]) Cholesterol in HDL [Mass/volume] in Serum or Plasma 59 mg/dL 35-60 [facility] ([facility]) Triglyceride [Mass/volume] in Serum or Plasma 129 mg/dL 30-150 [facility] ([facility]) ID Date Data Source [id number] 01/28/2020 11:20:00 AM EST [facility] ([facility]) Name Value Range Interpretation Code Description Data Viki rce(s) Supporting Document(s) Glucose [Mass/volume] in Serum or Plasma 90 mg/dL 74-99 [facility] ([facility]) 100-125 mg/dL PRE-DIABETES/FASTING >126 mg/dL DIABETES/FASTING Urea nitrogen [Mass/volume] in Serum or Plasma 10 mg/dL 7-18 [facility] ([facility]) Sodium [Moles/volume] in Serum or Plasma 140 meq/L 136-145 [facility] ([facility]) Creatinine 0.9 mg/dL 0.6-1.3 [facility] ([facility]) Chloride [Moles/volume] in Serum or Plasma 102 meq/L 98-107 [facility] ([facility]) Carbon dioxide, total [Moles/volume] in Serum or Plasma 31 meq/L 21 -32 [facility] ([facility]) Potassium [Moles/volume] in Serum or Plasma 4.0 meq/L 3.5-5.1 [facility] ([facility]) Calcium [Mass/volume] in Serum or Plasma 9.4 mg/dL 8.5-10.1 [facility] ([facility]) Total Bilirubin 0.5 mg/dL 0.2-1.0 [facility] ([facility]) Alkaline phosphatase isoenzyme [Units/volume] in Serum or Pl asma 107 mg/dL 46-116 [facility] ([facility]) Alanine aminotransferase [Enzymatic activity/volume] in Seru m or Plasma 22 U/L 12-78 [facility] ([facility]) Aspartate aminotransferase [Enzymatic activity/volume] in Serum or Plasma 17 U/L 15-37 [facility] ([facility] ) Albumin [Mass/volume] in Serum or Plasma 3.9 g/dL 3.4-5.0 [facility] ([facility]) A/G Ratio 1.26 CALC 1.00-1.90 [facility] ([facility]) Proteinase 3 Ab [Units/volume] in Serum 7.0 g/dL 6.4-8.2 [facility] ([facility]) Glomerular filtration rate/1.73 sq M pre dicted among non-blacks [Volume Rate/Area] in Serum or Plasma by Creatinine-based formula (MDRD) Laboratory test result [facility] ([facility] ) Glomerular filtration rate/1.73 sq M pre dicted among blacks [Volume Rate/Area] in Serum or Plasma by Creatinine-based formula (MDRD) Laboratory test result [facility] ([facility]) <content>CHRONIC KIDNEY DISEASE STAGING PER NKF</content>
<content></content>
<content>STAGE I & II GFR >= 60 NORMAL TO MILDLY DECREASED</content>
<content>STAGE III GFR 30-59 MODERATELY DECREASED</content>
<content>STAGE IV GFR 15-29 SEVERELY DECREASED</content>
<content>STAGE V GFR <15 VERY LITTLE GFR LEFT</content>
<content>ESRD GFR <15 ON SOCIAL SCIENCE RESEARCH ASSISTANT</content>
<content></content> ID Date Data Source [id number] 01/28/2020 11:20:00 AM EST [facility] ([facility]) Name Value Range Interpretation Code Description Data Viki rce(s) Supporting Document(s) Leukocytes [#/volume] in Blood by Automated count 7.7 x10*3/UL 4.1-10 .9 [facility] ([facility]) Hemoglobin [Mass/volume] in Blood 13.4 g/dL 12.0-18.0 [facility] ([facility]) Erythrocytes [#/volume] in Blood by Automated count 4.41 x10*6/UL 4.2 0-6.30 [facility] ([facility]) Hematocrit [Volume Fraction] of Blood by Automated count 39.5 % 3 7.0-51.0 [facility] ([facility]) MCV 89.6 fL 80.0-97.0 [facility] MCH 30.3 pg 26.0-32.0 [facility] Erythrocyte distribution width [Ratio] by Automated count 13.4 % 11.6-13.7 [facility] ([facility]) MCHC 33.8 g/dL 31.0-38.0 [facility] ([facility] MPV 8.5 FL 7.8-11.0 [facility] Platelets [#/volume] in Blood by Automated count 313 x10*3/UL 140-440 [facility] ([facility]) Mid % 5.7 % 1.7-9.3 [facility]) Neut % 72.1 % 37.0-92.0 [facility]) Lymph % 22.2 % 10.0-58.5 [facility] Mid # 0.4 x10*3/UL 0.1-0.6 [facility] ([facility]) Neut # 5.6 x10*3/UL 2.0-7.8 [facility] ([facility]) Lymph # 1.7 x10*3/UL 0.6-4.1 [facility] ([facility]) ID Date Data Source [id number] 01/23/2020 01:33:19 PM EST [facility] INFORMATIONPatient MRN Name Date of Age Gend*PT [id number] Lianne Tuttle Amador 1955 64 years F OBSPT Location Admission Date/Time Visit ID Attending [id number] 01/21/20 0839 --- Audra Gomes MD([id number]) EPI ID CSN Admitting Provider [id number] Audra Gomes MD([id number])Physician Discharge Summary Lianne EscamillapeggyMRN: [id number] date: 01/21/2020Attending Physician: Audra Gomes MDAdmission Diagnosis: [...] dailySpiriva Respimat 1.25 MCG/ACT AersGeneric drug: Tiotropium [place] Monohydratesucralfate 1 g tabletCommonly known as: CARAFATE [...] Get Your MedicationsThese medications [place] [id number] bisoprolol 5 MG tablet clopidogrel 75 MG [...] rce(s) Supporting Document(s) ID Date Data Source [id number] 01/23/2020 08:04:21 AM EST [facility] Name Value Range Interpretation Code Description Data Viki rce(s) Supporting Document(s) TROPONIN I 0.06 ng/mL (<0.05) H [facility] Less than 0.05: Myocardial injury unlike lyGreater than or equal to 0.05: Highly suggestive of myocardial injuryCorrelation with rise and/or fall ofserial troponins, clinical symptomsand ECG changes is necessary. ID Date Data Source [id number] 01/23/2020 08:04:21 AM EST [facility] Name Value Range Interpretation Code Description Data Viki rce(s) Supporting Document(s) SODIUM 140 mmol/L (136-145) [facility] POTASSIUM 3.9 mmol/L (3.6-5.2) [facility] CHLORIDE 109 mmol/L (100-108) H [facility] CO2 22 mmol/L (22-31) [facility] ANION GAP 9 mmol/L (7-16) [facility] UREA NITROGEN 13 mg/dL (7-24) [facility] CREATININE 0.75 mg/dL (0.60-1.00) [facility] BUN/CREAT RATIO 17.3 RATIO (10.0-20.0) [facility] GLUCOSE 73 mg/dL (70-99) [facility] CALCIUM 8.9 mg/dL (8.4-10.2) [facility] GFR >60 ml/min/1.73m2 (>59) [facility] GFR ( AMER) >60 ml/min/1.73m2 (>59) [facility] GFR INTERPRETATION [facility] --NORMAL KIDNEY FUNCTION OR MILD DISEASE - GFR >OR= 60CHRONIC KIDNEY DISEASE - GFR 15 - 59RENAL FAILURE - GFR <15 Est. GFR calculation based on the MDRDstudy equation, which assumes a steadystate for creatinine. Est. GFR should notbe used for medication dosing. ID Date Data Source [id number] 01/23/2020 07:25:09 AM EST [facility] Name Value Range Interpretation Code Description Data Viki rce(s) Supporting Document(s) WBC 8.4 10*3/uL (4.1-11.0) [facility] RBC 4.06 10*6/uL (4.00-5.40) [facility] HGB 12.5 g/dL (12.0-16.0) [facility] HCT 37.6 % (36.0-47.0) [facility] PERFORMED AT [address] [place] [address] N [place] [id number] MCV 92.6 fL (80.0-95.0) [facility] MCH 30.8 pg (27.0-32.0) [facility] MCHC 33.2 g/dL (32.0-36.0) [facility] RDW 13.9 % (10.5-14.5) [facility] PLT 251 10*3/uL (150-450) [facility] MPV 8.6 fL (7.1-10.7) [facility] ID Date Data Source [id number] 01/22/2020 11:41:26 PM EST [address] [id number] Name: Lianne TuttleB: 1955Sex: FOrdering Provider: CARLOS Mary Prov: CARLOS Sethi Provider: Procedure Performed: CT ANGIOGRAM CHESTExam Date: 01/22/2020 21:55MRN: [id number] Number: [id number] Class: INFORMATION: Exam: CT Angiography Chest With [...] rce(s) Supporting Document(s) ID Date Data Source [id number] 01/22/2020 11:07:30 PM EST [facility] Name Value Range Interpretation Code Description Data Viki rce(s) Supporting Document(s) CK 53 U/L (26-192) [facility] TOTAL CK <56, MASS MB NOT INDICATED. ID Date Data Source [id number] 01/22/2020 07:00:59 PM EST [facility] Name Value Range Interpretation Code Description Data Viki rce(s) Supporting Document(s) TROPONIN I 0.08 ng/mL (<0.05) H [facility] Less than 0.05: Myocardial injury unlike lyGreater than or equal to 0.05: Highly suggestive of myocardial injuryCorrelation with rise and/or fall ofserial troponins, clinical symptomsand ECG changes is necessary. ID Date Data Source [id number] 01/22/2020 05:39:38 PM EST [facility] Name Value Range Interpretation Code Description Data Viki rce(s) Supporting Document(s) D-DIMER,SENSITIVE 0.58 mg/L (<0.50) H [facility] ID Date Data Source [id number] 01/22/2020 04:34:23 PM EST [facility] Name Value Range Interpretation Code Description Data Viki rce(s) Supporting Document(s) CKMB 1.3 ng/mL (0.0-5.0) [facility] CKMB RELATIVE INDEX 2.2 {index_val} (0.0-4.0) [facility] ID Date Data Source [id number] 01/22/2020 04:22:12 PM EST [facility] Name Value Range Interpretation Code Description Data Viki rce(s) Supporting Document(s) TROPONIN I 0.10 ng/mL (<0.05) H [facility] Less than 0.05: Myocardial injury unlike lyGreater than or equal to 0.05: Highly suggestive of myocardial injuryCorrelation with rise and/or fall ofserial troponins, clinical symptomsand ECG changes is necessary. ID Date Data Source [id number] 01/22/2020 04:22:12 PM EST [facility] Name Value Range Interpretation Code Description Data Viki rce(s) Supporting Document(s) CK 59 U/L (26-192) [facility] ID Date Data Source [id number] 01/22/2020 12:48:55 PM EST [facility] Name Value Range Interpretation Code Description Data Viki rce(s) Supporting Document(s) EKG [facility] RFMARi4yKyJUDiWgw2LsIrCeCVBmZM9cuuh1V7E8rTTvR5HkqAZlw9ieQ0TrX6ZtOPEgNYNOVR8PlWXg jb2 [file] ZTsA9K7x6u5oYbEVRYaQ4YrZNJH/yqFOksVrx9sCFCqPbdWezy03MysDkg0ie+fisher net+mxuMM7xjFOT+2L [file] ggMDAwMDAgbiAKMDAwMDAwMDQwOSAwMDAwMCBuIAow TEWlCDIgMGCpCIYfHVFdQF2jDbHkMYFoQWK4VIVmAKIjGYSicsLFJIDtUFMcYSf0LYRoMAGqORFpBRsb WKMfHLDvETL7GFXuDAFiHR3aFeZlFOEwSYY1TtZxRBPzDKKzdoJPULNyKIUqKFC3MeDdXSIjUYFrDEbm XRLvJWIcSWxiWYIvMUUwAO4cDuOlSAEkQIZkNQcoXH GeATWmvnWRUPIlNHEhYWMrThFeSULqOFVyLZzvRBWmUJc5IRHfLEGaSKVuLZ3kYcCrOPHbXZN6JWqiPI LwYLJduwYZJIBhCFIcZHrjZRQyYBKxIPInTXjuDONqAMTtAPC3KMUqYKXcMI1qIbDdQUMhKEZdNEZkCx L9OoMvFgOAzFAbyTusbfr8KSqfW0r9JCIfXCvvWQ4d tkAvNWGvLsxjUu3jhNI2SKSuHljFVl9Ol8CpjdS2wgUnOax8NOQfGeImJB4U ID Date Data Source [id number] 01/22/2020 07:27:18 AM EST [facility] Name Value Range Interpretation Code Description Data Viki rce(s) Supporting Document(s) EKG [facility] GSTQAj7tGyUVLfSbw6JuUjFzPUOnQK8mspg1D1K3vPUcM6GprRVzb9wgO4ZsO2UgVCLgBZYRPQ5NgMZq jb2 [file] 7z71vhIm/vp clinical research/a0W25lP20824L//q2ink43T+9+7r4Ccc00x/bnbGm+qhKFF3j6bkLLG66+6DpDfD9PRe [file] ZiAKMDAwMDAwMDAxNiAwMDAwMCBuIAowMDAwMDAwMD b6TINpBHGePZ2fKaXzTPXbCTHzWGAhOTHvMTXvqaMHQOTlBVGoRDP2MATiHJNwMVLuWJvkHSVsQAXtPL O4LGEuQNYqNF2rRcRzHOTjIJF6NfPrIALjYGNwcmJPTYWbUBPjLOK3JHLtFVThXDFoPGmnRPZjNDPrRh C9GHBqWRVvSV1lUhOkAUQnCMC0FNQtXHYeOMJibhRU BHNrVOMpIUf4PwNsWJPvUOLsBRtkWFEmBGRvMLhpFBUlDKBmMC2kJoJdWPFjBTLgSCEcJILkMHSzokNM FGPqQJJeJJH7AbZoWRCaQJBfIZwaERAlLSMkJSO8YQQyHZNdJD3dLkUhWRZhSGM9SgDxFUBvMYOvheFU JUKoFWTaMHZkXJJcFDRfNSBuHFdjYWFtPYVnGqZ6LV MsXWUcPF9zIaAkSGXuUUI8GUOgQKXuEQAzwuUBRUWrMTEeOBTwIXR6XUHzWHRkMLc5kwZjiQWbXba4Uv 2YvQezCBM8Rp2XetKoMXQcTHKUKz5Wu323YRHdEOHKLfn+ZjypzLCpsJjmFAMKOTF9DtSYPUWUN9L= ID Date Data Source [id number] 01/22/2020 07:49:53 AM EST [facility] Name Value Range Interpretation Code Description Data Viki rce(s) Supporting Document(s) SODIUM 141 mmol/L (136-145) [facility] POTASSIUM 3.9 mmol/L (3.6-5.2) [facility] CHLORIDE 110 mmol/L (100-108) H [facility] CO2 25 mmol/L (22-31) [facility] ANION GAP 6 mmol/L (7-16) L [facility] UREA NITROGEN 12 mg/dL (7-24) [facility] CREATININE 0.72 mg/dL (0.60-1.00) [facility] BUN/CREAT RATIO 16.7 RATIO (10.0-20.0) [facility] GLUCOSE 83 mg/dL (70-99) [facility] CALCIUM 8.3 mg/dL (8.4-10.2) L [facility] GFR >60 ml/min/1.73m2 (>59) [facility] GFR ( AMER) >60 ml/min/1.73m2 (>59) [facility] GFR INTERPRETATION [facility] --NORMAL KIDNEY FUNCTION OR MILD DISEASE - GFR >OR= 60CHRONIC KIDNEY DISEASE - GFR 15 - 59RENAL FAILURE - GFR <15 Est. GFR calculation based on the MDRDstudy equation, which assumes a steadystate for creatinine. Est. GFR should notbe used for medication dosing. ID Date Data Source [id number] 01/21/2020 02:12:20 PM EST [facility] Name Value Range Interpretation Code Description Data Viki rce(s) Supporting Document(s) EKG [facility] QXZVXs9tRmTLRwCnh7MiGfLsSLNiCD8equq6C8I9mUHnM2ShmOHde4txQ4ZoI1IaLLOuTKJKPB9JiPBw jb2 [file] NwolJUVPRg== ID Date Data Source [id number] 01/21/2020 12:51:43 PM EST [facility] Name Value Range Interpretation Code Description Data Viki rce(s) Supporting Document(s) &PDF [facility] HLOYAc2mCwJCEjWv22/IOEluODLab7RxPGeiBIk3VZfeJGRgQ3GtrVriKJbDHIrMROuMIcNIKZDrMJUk FcG [file] YBu617i38qCR+cF/smIdNl0HRNMgEvcSb/qCTuH7+HGh+lUWMnBFArZmexfuZpvlw8E1bG+hand cloth examiner+ZCX3g9 [file] rsS+GZKTTTy2sFUz8HPZm5omdrMEx6/798nz1vdLFL5zeU4972tSfg6p+food and beverage intern+bUO+6K3h96Y8LlR0eL0 [file] /safety engineer pressure vessels/Clc17vu3p0aRpYOFeH2DaZ+DyVddgamfwfd5maNtfzzEImvtexSwZrMO8l08dHn/MAKAieMvDjx [file] ICAgICAgICAgICAgICAgICAgICAgICAgICAgICAgIC AgICAgICAgICAgICAgICAgICAgICAgICAgICAgICAgICAgICAgICAgICAgICAgICAgICANCiAgICAgIC AgICAgICAgICAgICAgICAgICAgICAgICAgICAgICAgICAgICAgICAgICAgICAgICAgICAgICAgICAgIC AgICAgICAgICAgICAgICAgICAgICAgICAgICAgICAg ICANCiAgICAgICAgICAgICAgICAgICAgICAgICAgICAgICAgICAgICAgICAgICAgICAgICAgICAgICAg ICAgICAgICAgICAgICAgICAgICAgICAgICAgICAgICAgICAgICAgICAgICANCiAgICAgICAgICAgICAg ICAgICAgICAgICAgICAgICAgICAgICAgICAgICAgIC AgICAgICAgICAgICAgICAgICAgICAgICAgICAgICAgICAgICAgICAgICAgICAgICAgICAgICANCiAgIC AgICAgICAgICAgICAgICAgICAgICAgICAgICAgICAgICAgICAgICAgICAgICAgICAgICAgICAgICAgIC AgICAgICAgICAgICAgICAgICAgICAgICAgICAgICAg ICAgICANCiAgICAgICAgICAgICAgICAgICAgICAgICAgICAgICAgICAgICAgICAgICAgICAgICAgICAg ICAgICAgICAgICAgICAgICAgICAgICAgICAgICAgICAgICAgICAgICAgICAgICANCiAgICAgICAgICAg ICAgICAgICAgICAgICAgICAgICAgICAgICAgICAgIC AgICAgICAgICAgICAgICAgICAgICAgICAgICAgICAgICAgICAgICAgICAgICAgICAgICAgICAgICANCi AgICAgICAgICAgICAgICAgICAgICAgICAgICAgICAgICAgICAgICAgICAgICAgICAgICAgICAgICAgIC AgICAgICAgICAgICAgICAgICAgICAgICAgICAgICAg ICAgICAgICANCiAgICAgICAgICAgICAgICAgICAgICAgICAgICAgICAgICAgICAgICAgICAgICAgICAg ICAgICAgICAgICAgICAgICAgICAgICAgICAgICAgICAgICAgICAgICAgICAgICAgICANCiAgICAgICAg ICAgICAgICAgICAgICAgICAgICAgICAgICAgICAgIC AgICAgICAgICAgICAgICAgICAgICAgICAgICAgICAgICAgICAgICAgICAgICAgICAgICAgICAgICAgIC ANCjw/eUBqG9uziGQknbM8E1adOo0XOx4JOA3kp3HpBTJvKYustcFvBjqBUrVeJHPkUufXQdd8MSlhIM 1KzMEzS3KvJ3SaCHyzUM4MHUQpXFIvyPRfHBMwIBMb MwD8WFGmQMepBM3OmOXzEIaqILRzVGXuCrNgHKOtXHAgJAIvYQRwIJFSINKtVHQyArGwRUYtPMUkIUei QKEHVS1EWmGcS1KvjN30JJnLVa3+VKbfxuHpOxhGHkQ6BOEku4LkGUl0VA0GLNIfAnzdj1VjCpZoPJKK GOyuYP1ENFI1KDV6IKWiMr3AZMApA693wlAvVI3VGz 5DKiFxTC0gzl9EZzQeUWMlTipXObe3LCldYJ4IxYSrRXnBcOSsYR67ohuEWlWjT7Kgx8OoPyE7UQStRh EuNIpiHNKuSmR7HW45bJcyUP8LIVMrDPXkTE19YFW4SNFzMb2FDu6EVlZuBP7pkl0HGxAzSWAwMnzFHf v8DAsyWV3UhYTtV6JfuHYeh4lEVaWiZ6CODHQbQXXt Dc3VKWKrLnTzTYTwNWsvZJ0mGJHqHCMDyPuxcpQ0TF7IVU9qbyWwIJ2RTvUtEb4tAp2JNdXrS3WvB9Og QOHnSEJUVGkwNM6WJGhjNU6cEU6Yw2QGvNWqiZ7xjm8CXBDkPYMnLmbbkb4EUnjeI4I6eEwyKVJwUtFc TFTKQFshWU9HRFCpYOT1HOTaMzPsCLYVSoAfJ46uYE 7OW8Bsf52jJbT6PZCpUxFrJMscPB06sRiqtyUolCLfhKrsQL3ACo6+DQplbmRvYmoNCnhyZWYNCjAgMz pCQbCgXHZfPWWoPKEpGsH7ZeYzTt2IGXShQILeCWThHkUmXCMbAIZuMNbmLIBkOFabAzQ8WLXnHXAiBM 4SCvAgYNKkJZEtTQegXCNfMJClbd2TDMLdTNLqSRG0 FRHuIPJySPIcJDuyFBViXGHdMrAmLOKdVWHyJX0EAbUyRUMmXMU5DiNhTJHsHYYlmt5BBERpOJAnAMQx LBVmNGVlSTQhJLdmTVHiTJB9GXNuTVGgPWGtNA2INiOdYMBdEDP7OEXvOBYlBTXonw5DVTStVWWhHbWz RTLyURNpAAAiRZweKAIzYNZ5Qxf3BBPgNFUcUC8KGv ZbTOYqHJl6QWQfXRYrGLUkbn8GMACgRAJkFYQ7HYEoPZWuLHSlZCwjXYCaJFFjDwH4EPBiBTXqLD9LJw ZiPAXcFSS6VnVwCDNyLAVuno8WENPxFPQmSMbxCOIcUEDrKKAdIHfeVZZbRAGaHJA6KGAkJYQcCJ8MXl AbCQJyDUWkHlWrYVFrAZJrsk2IVOCyDIPaJHJhEOWe QCQlWADpXIzpFVNsGZJ0DTHrUNArIAAbNV3OAcSqVBAnQWW2MWCwZNTaTAIogi8ZGHWnDOTrRAE3UvEg HAEsYHAbEDkzWMUvHDM4MZI8AGLzABYtQA3QYfSnRYLwWJNlZWRqSPAtWZUgry8JQEYdMCVcYCg1RwTo WQBmOVNcSVekTKFcNLWxZnL9BLEuFKHuVH8KXwNwGH TiKiE6JsSoSORgFRXalw8PGKKrUOV6XcT2SvPkWKLfYGVcTAdhWDItSXNvJIAbPTAcMBFdTX1YMfStPT SjXzBcGNlbURHdQJJtts7AGZVzONP7GvLcOhZrOSZkENOaDQbsBIJfOLduAcT0MLEnXCUvHA9ZUrXjXN JfNAU8UIkzISHaQCSvvc3MMLZeCGA5LSWyNCOmDZZi MONyAImwRRSgLRm5Rew8AGEbJKMbQP4RQqHaGISwYBE8QPKfBZAgGCFlxx1YbHTsrGxlaz5KIPsADw7L sKzzFJZ9WKtlEo1zkNUmBpKtBGRTMk8PneTyESVqXEOXYVmqULWmREgsM0HoJvBpE5RnGJl2GkLnKTXv GeCbTjUhSZV4JmBwFlD1PLFsFVGaSDS4IhClPYxjGM MwYjNmYWNjMzAwZDliNGE+PQ3zNFi+Ii6Zo1EqaeO2jgXpNNo7GKrfNR6ADZNVV3XFKl== ID Date Data Source [id number] 01/21/2020 09:20:05 AM EST [facility] Name Value Range Interpretation Code Description Data Viki rce(s) Supporting Document(s) EKG [facility] RXFGQr2fEeHYCnZoc1WuTpFcOBUfED7vjnp4Q7A0kKFwX6GdrIVto1tbJ2NbH0RePLJlIJHPXJ3SoSXq jb2 [file] 00PmYn7yt8rqkU/0Hj04l2tzZAeR6qN212FO4M0ox1 Kvwrpvo+3kjLaTM/R0P0061/rCA42BwzXryydJ6mm35zbTR+NqYzzvfo/bpPGGIBU2LZ/IBnlBdsgBGX nUtfQd81SmB7sZxrPewM4nKNMy3NdYosPrLlB/ZcpzIDUSsZipM6HX7jfqxsm7viNqPPsNJK7htM/Br2 aA99Ro9EhGbKDUN5C4Kwhws43xJn5MezM/OblzLD3p X42aeAkByG/gVwZ+UzDSZd3m8Rom/Z0Q0qiLZtlj+1ugPsU9LoUMAkaslr1QEcKvde66ZE0l/5Ulvzrz piW/adls1UoF89pC1n7+Yss4OjcVsx30Y+K6E8282xfDY1brV+WIhPY3fRyyN0Yv8WiypyGvvllaTfdv Ic2CO1GTibkm6X+zcSZxSpPHu10ndEY4NyKn+121v5 pxiVS190ta7BK0fCk3Kbm0d5791ig8n3eqd30dk76k6cVDB+Mkh456Q26Od66E4Bdz6EpKqjAa/SU9/6 5jr/Iq74ECsC8S9b+18H6iZM4g+K+T5y3hg6piLhb8azKwGeGwmnMe39QFw9qoaAo16Sud8NmTd7Xtua ds8TmHQch45b2g+OWJaNaAlaYgWlqOgv1SKwPxH+Se pnr14Ac89yeke/3a043ih7e8l6+3C1lzy48snu9aSdoip7v91Esej178PSlsVE/X1/3ixFh0Bj+9Sh61 kf3ACeBWW0YI2Idfjd/OsTAr+vFZU8teOkNF/wb8ahW/Otcp/6E2ohNqANmdd/Bs887ZvbqJ2a9jusc6 effervescent salts compounder/bn6IinLd+EP0RZF3mWw8I6kg3ibUfv/g+YJfrc B7tB/OLztfW3zOR+WCd0E7a1ag7UlV/5XDf+DmQex7Du7+5U/w0zb7cs6ezF02TYv0jdw6doi0rPQoLo /7N435Tby+oGN/2BRbFTySqc7c/JsAhlo6dqUhEGBFyMjdR8VR+/u8sF5Uu+WtHclmwdDaVruKf5241B SCRcvwwtFrXagEz933+CMILek9zfI/1wGeB70TKkBB /WeWpzm9xi99E05k3c+O23vz8K8UeohldAE/dx467qENCdRy6HF0Zst7t/3tvtpO+up1qK/fob0aw6pp 9a87+tlxv95+LPboT98UJCOg+RUCYzr6nSTzCxxJk730+LOEFpl5aAZtAijUy958/Audie/5XDf+GNz221 [file] dsOH+y+3n/578/ATh8hNARihSO1xGK+O3tp+3V0Pf/hzih3Cl/3T3ipnjikS0aNJwe/un/+6f4/2+wells kX6It67K11JAPC4P+qs9IPFL7b/CTTRX5XmZNq4C6adhaxXL++Zvi6ilv3/+l18adOW5T3rmNLBf8YD5 +PwfWKRcuiqMj1f2Pe/q0WZSwon0j/waul0e8w4v0O Ozel9In5hjr5s5/aekS/948a9sV//vKZHTtkO8y77/7/sP7+c/upzpty1kl4XzsI/nL/O6+eMYXRZjT4 rz5tCh1g+3gypFzv3WA7AKkCh1qm7Cew3jE7tji2q/NkAAzva3Ac6fdm8fgQjHxA8ANQEsAVV3oRwd13 4ZIEJAhSpaE5/u/wFpH+a3ZsAoRHT3hyEyoZvjflOe PbkNCLmkDWBdEgi7RA0AnADzNDAdU8I1OTUurv4fJTVvQKPkpTWrAaAbFRQLLE6GdVXrNS4NUTh4EAMu LTLlSfOfQMHhnaV2PQHfNMSqUAYkV3EodvSvaWLzKZDyCp5+LQ6as4McDfYqDMIxCbg0NM6ZgNTqQK0X iNHiqG2iyoPgU949lvZxNNNcHcdbe6QmEFsnBIWNVH 8VKXX5OBA1GCMvOv5+BR0nu1EtNtZkDKGsWfu7KN9KrYBod4DaLP2NC9XwZNZoVUQKULD7u3BxYJTwty lifagrN2RaRKB2mS7lFJJ2USJwNYpqKSYuDSZyJbC5PpWjRUijSTMtUOLjRYFsWLRuJIc5gMDhXT9EY0 ZqINCpRZQHSZUslzFdSk3jEElPUJeJGHXGYM0JQUZd GCMfFGBsERHrMQ2MzMReEKF2CZwNAWLIQIhUUAinVmQct4W3KVZxW7GmTVDbngKdSHGSFPgwLqsaBL5l fDvxevloO9OzeVYtOTTOQBIhBEWsAMIlYDRcU0Srm4T6L3PuLYnUBQDWUQxVQEvaBxD4g15ddlWPYUQb ZXMpID4+RW3mo6WpMm9FJDVsZM3elit1QZ5NeMSvWL 1BTHapdtXvO5qziwVlXmOrNOUKPG7tW4HezE23DPR+RwJyKN2sdqj2syEsJmVfXPEiLGHeCGLrWCmyDM InMUNbNPGaWLX5TGH3ABUaUnWsBQEwSACfNzntDCHxULRsbqTQXKFnSOE8ODcaGBFeRESdEIPtEVztYY ZnXNJxXnibFHBmVXDwGV8fJsHiNANqJOPjUYDcDpX8 EjIwUqCEHSJxEWWvYYEwBuAaVMKiMZVgNNujVYTmNHNhYHe0HUXkVXCzXN1yMiJcAJZvZMHdNWKeLTAe WUDprmMBAWZySQSvUWH1JHQiKTTtHFAqIGinLCUqQLPfLCM9TDPdHZRbRB6tThTzDPBvKYD2OqXxNRVv HOOgkgIOJOJjCGIkPTG2BWJlFXZhSIDeNGnhQNHvOW JbIlX1WZDxPQWvZT4zTvTaMLLlOQN8OWIiSEOfVPXnwvBZXDHfPIVaOOz1FoBbRWViTQCdMGrtZEEoSL PzBIewSMMxXZYaNF6cHaGaPDMaVTMsGMUeQVYmCHYhcxLZVGLtLGVvUJS5ZlYrVKPyUJRwPQjkEWPiIA OjHFR4QOEkAETjSA1hPiMtKIJrHJG8GTBhXBRlPJFa cqFBSWVuEYOgNUKlQHUcMDDeYGGzSIauXGRpJIViCaB4RGXlETDtTL6nPhTwEOLyDQT2VIYcRLXeCSZy nwLXTFNvPYOeMBThSNM9SGNwYINpXEi0cbVzdLOtNey7Np7CcFgbDUW0Ou6XokPlTRZxYNCFEo6Pv126 IDUgMCBSCgo+QgdrqALtvAtqYQGAGLWzLFBVIVHSF8P= ID Date Data Source [id number] 01/16/2020 12:00:00 AM EST [facility] Name Value Range Interpretation Code Description Data Viki rce(s) Supporting Document(s) SARS coronavirus 2 RNA [Presence] in Res piratory specimen by BRO with probe detection [facility] reported by [facility]. ID Date Data Source [id number] 12/29/2019 03:20:00 PM EST [facility] ([facility]) Name Value Range Interpretation Code Description Data Viki rce(s) Supporting Document(s) Laboratory test finding (navigational concept) 0.01 ng/mL 0.00-0.08 [facility] ([facility]) ID Date Data Source [id number] 12/29/2019 12:36:00 PM EST [facility] ([facility] Name Value Range Interpretation Code Description Data Viki rce(s) Supporting Document(s) Lipoprotein lipase [Enzymatic activity/volume] in Serum or Plasm a 77 U/L 73-393 [facility]) Natriuretic peptide.B prohormone N-Terminal [Mass/volu me] in Serum or Plasma 176 pg/mL [facility] Thyrotropin [Units/volume] in Serum or Plasma by Detec tion limit <= 0.05 mIU/L 1.020 uIU/ML 0.358-3.740 [facility] ([facility] ) Thyroxine (T4) free [Mass/volume] in Serum or Plasma 2.69 ng/dL 0.76- 1.46 [facility] ([facility]) ID Date Data Source [id number] 12/29/2019 12:36:00 PM EST [facility] ([facility]) Name Value Range Interpretation Code Description Data Viki rce(s) Supporting Document(s) Glucose, Fasting 80 mg/dL 70-100 [facility] ([facility]) Blood Urea Nitrogen 10 mg/dL 7-18 [facility] ([facility]) Creatinine For GFR 0.84 mg/dL 0.55-1.30 [facility] ([facility]) Sodium Level 137 meq/L 136-145 [facility] ([facility]) Glomerular Filtration Rate Laboratory test result [facility] ([facility]) <content>Units are mL/min/1.73 m2</content>
<content></content>
<content>Chronic Kidney Disease Staging per NKF:</content>
<content></content>
<content>Stage I & II GFR >=60 Normal to Mildly Decreased</content>
<content>Stage III GFR 30- 59 Moderately Decreased</content>
<content>Stage IV GFR 15-29 Severely Decreased</content>
<content>Stage V GFR <15 Very Little GFR Left</content>
<content>ESRD GFR <15 on SOCIAL SCIENCE RESEARCH ASSISTANT</content>
<content></content> Potassium Serum 4.3 meq/L 3.5-5.1 [facility] ([facility]) Carbon Dioxide Level 24 meq/L 21-32 [facility] Chloride Level 105 meq/L 98-107 [facility] ([facility]) Calcium Level 9.0 mg/dL 8.8-10.2 [facility] ([facility]) Anion Gap 8 meq/L 8-16 [facility]) ID Date Data Source [id number] 12/29/2019 12:36:00 PM EST [facility] ([facility]) Name Value Range Interpretation Code Description Data Viki rce(s) Supporting Document(s) Ast/Sgot 16 U/L 7-37 [facility] ([facility]) Bilirubin,Total 0.6 mg/dL 0.2-1.0 [facility] ([facility]) Alt/SGPT 17 U/L 12-78 [facility] ([facility]) Alkaline Phosphatase 114 U/L 45-117 [facility] ([facility]) Bilirubin,Direct 0.1 mg/dL 0.0-0.2 [facility] ([facility]) Albumin/Globulin Ratio 1.1 1.2-2.2 [facility] ([facility]) Total Protein 6.8 GM/DL 6.4-8.2 [facility] ([facility]) Albumin 3.5 GM/DL 3.2-5.2 [facility] ([facility]) ID Date Data Source [id number] 12/29/2019 12:36:00 PM EST [facility] ([facility]) Name Value Range Interpretation Code Description Data Viki rce(s) Supporting Document(s) White Blood Count 9.6 10 4.0-10.0 [facility] ([facility]) Red Blood Count 4.43 10 4.00-5.40 [facility] ([facility]) Hemoglobin 13.4 g/dL 12.0-15.5 [facility]) Hematocrit 41.5 % 36.0-47.0 [facility]) Mean Corpuscular Hemoglobin 30.2 pg 27.0-33.0 [facility] ([facility]) Mean Corpuscular Volume 93.7 fl 80.0-96.0 [facility] ([facility]) Red Cell Distribution Width 13.5 % 11.5-14.5 [facility] ([facility]) Mean Corpuscular HGB Conc 32.3 g/dL 32.0-36.5 [facility] ([facility]) Platelet Count, Automated 288 10 150-450 [facility] ([facility]) Neutrophils % 67.5 % 36.0-66.0 [facility] ([facility]) Lymph % 23.3 % 24.0-44.0 [facility] [place] % 7.7 % 0.0-5.0 [facility] Eos % 0.6 % 0.0-3.0 [facility] Immature Granulocyte % 0.3 % 0-3.0 [facility] ([facility]) Baso % 0.6 % 0.0-1.0 [facility] ([facility]) Nucleated Red Blood Cell % 0.0 % 0-0 [facility] ([facility]) Neutrophils # 6.5 10 1.5-8.5 [facility] ([facility]) [place] # 0.7 10 0.0-0.8 [facility] Lymph # 2.2 10 1.5-5.0 [facility] Eos # 0.1 10 0.0-0.5 [facility] Baso # 0.1 10 0.0-0.2 [facility] ID Date Data Source [id number] 12/29/2019 12:36:00 PM EST [facility] ([facility]) Name Value Range Interpretation Code Description Data Viki rce(s) Supporting Document(s) Laboratory test finding (navigational concept) 0.00 ng/mL 0.00-0.08 MED[facility] ([facility]) ID Date Data Source [id number] 12/22/2019 12:00:00 AM EST [facility] Ragini GARCIA Patient Name: CASSANDRA TUTTLE [facility] Date of : 1955RENNY [place] [address] Date of Exam: 12/22/2019PH#: Fax: [phone] EXAM: CT CERVICAL SPINE WITHOUT CONTRASTCLINICAL INFORMATION: Neck pain. Numbness in both hands. History ofsurger1996.Comparison study 03/31/2019.CT FINDINGS:The patient is status post ventral diskectomy and fusion plating across theC5-6 disc level as before. Vertebral body heights are preserved.Alignment is normal. There is mild degenerative narrowing of the C4-5 [id number] degenerative narrowing of the C6-7 disc spaces. [...] No new disc protrusion seen.Accredited by the [employer] in [place].BRADLEY Campos/Mustapha euceda [...] MEDENT ([facility] ) Smoking 11/04/2020 12:00:00 AM EDT Never Smoker completed Never S moker eCW1 ([facility]) Smoking 11/04/2020 12:00:00 AM EDT Never Smoker completed Never S moker eCW1 ([facility]) Smoking 09/30/2020 12:00:00 AM EDT Never Smoker completed Never S moker eCW1 ([facility]) Smoking 09/30/2020 12:00:00 AM EDT Never Smoker completed Never S moker eCW1 ([facility]) Smoking 09/30/2020 12:00:00 AM EDT Never Smoker completed Never S moker eCW1 ([facility]) Smoking 08/16/2020 12:00:00 AM EDT Never Smoker completed Never S moker eCW1 ([facility]) Smoking 07/15/2020 12:00:00 AM EDT Never Smoker completed Never S moker eCW1 ([facility]) Smoking 07/14/2020 12:00:00 AM EDT Never Smoker completed Never S moker eCW1 ([facility]) Smoking 07/01/2020 12:00:00 AM EDT Never Smoker completed Never S moker eCW1 ([facility]) Alcohol intake 06/29/2020 12:00:00 AM EDT Ex-drinker (finding) comp leted Ex- drinker (finding) [facility] Alcohol intake 06/22/2020 12:00:00 AM EDT Ex-drinker (finding) comp leted Ex- drinker (finding) [facility] Smoking 06/17/2020 12:00:00 AM EDT Never Smoker completed Never S moker eCW1 ([facility]) Smoking 06/17/2020 12:00:00 AM EDT Never Smoker completed Never S moker eCW1 ([facility]) Smoking 04/27/2020 09:54:39 AM EST Never smoked tobacco (findi ng) completed Never smoked tobacco (finding) JERI (Pancho Larsen MD [facility]) Alcohol intake 03/11/2020 12:00:00 AM EST Not Currently completed [facility] Smoking 03/11/2020 12:00:00 AM EST Never smoker completed Never s [facility] Alcohol intake 01/29/2020 12:00:00 AM EST Not Currently completed [facility] Smoking 01/29/2020 12:00:00 AM EST Never smoker completed Never s [facility] Alcohol intake 01/21/2020 12:00:00 AM EST Not Currently completed [facility] Smoking 01/21/2020 12:00:00 AM EST Never smoker completed Never s [facility] Vital Signs ID Date Data Source UNK Name Value Range Interpretation Code Description Data Source(s) Body weight 200.00 [lb_av] 200.00 [lb_av] MEDEN T ([facility], [facility]) Systolic blood pressure 123 mm[Hg] 123 mm[Hg] M EDENT ([facility], [facility]) Diastolic blood pressure 84 mm[Hg] 84 mm[Hg] MEDENT ([facility], [facility]) Heart rate 98 /min 98 /min [facility] ([facility], [facility]) Respiratory rate 12 /min 12 /min [facility] ( [facility]) Oxygen saturation in Arterial blood by Pulse oximetry 98 % 98 % [facility] Body temperature 97.8 [degF] 97.8 [degF] MEDENT ([facility], [facility]) Body height 62 [in_i] 62 [in_i] MEDENT ([facility], [facility]) 5'2" Body mass index (BMI) [Ratio] 36.6 kg/m2 36.6 k g/m2 MED[facility] ([facility], [facility]) Systolic blood pressure 155 mm[Hg] 155 mm[Hg] M EDENT ([facility]) Diastolic blood pressure 88 mm[Hg] 88 mm[Hg] MED[facility] ([facility]) Heart rate 85 /min 85 /min MED[facility] ([facility]) Body weight 200.00 [lb_av] 200.00 [lb_av] MEDEN T ([facility]) Respiratory rate 16 /min 16 /min MEDENT ( [facility]) Diastolic blood pressure 80 mm[Hg] 80 mm[Hg] MEDENT ([facility]) Systolic blood pressure 140 mm[Hg] 140 mm[Hg] M EDENT ([facility]) Heart rate 80 /min 80 /min MEDENT ([facility] ) Diastolic blood pressure 91 mm[Hg] 91 mm[Hg] [facility] ([facility] Body weight 198.00 [lb_av] 198.00 [lb_av] MEDEN T ([facility]) Heart rate 85 /min 85 /min [facility] ([facility] Systolic blood pressure 164 mm[Hg] 164 mm[Hg] M EDENT ([facility]) Diastolic blood pressure 92 mm[Hg] 92 mm[Hg] COURT ([facility]) Body height 62 [in_i] 62 [in_i] COURT ([facility]) Systolic blood pressure 126 mm[Hg] 126 mm[Hg] A THENA ([facility]) Diastolic blood pressure 92 mm[Hg] 92 mm[Hg] COURT ([facility]) Body height 62 [in_i] 62 [in_i] COURT ([facility]) Systolic blood pressure 126 mm[Hg] 126 mm[Hg] A THENA ([facility]) Diastolic blood pressure 92 mm[Hg] 92 mm[Hg] COURT ([facility]) Body height 62 [in_i] 62 [in_i] COURT ([facility]) Systolic blood pressure 126 mm[Hg] 126 mm[Hg] A THENA ([facility]) Diastolic blood pressure 88 mm[Hg] 88 mm[Hg] MEDENT ([facility]) Heart rate 85 /min 85 /min [facility] Body height 61.75 [in_i] 61.75 [in_i] MED[facility] ([facility]) 5'1.75" Systolic blood pressure 138 mm[Hg] 138 mm[Hg] M EDENT ([facility]) Oxygen saturation in Arterial blood by Pulse oximetry 99 % 99 % MEDENT ([facility]) RM Air Body weight 200.00 [lb_av] 200.00 [lb_av] MEDEN T ([facility]) Body height 61.75 [in_i] 61.75 [in_i] MEDENT ([facility]) 5'.75" Diastolic blood pressure 78 mm[Hg] 78 mm[Hg] MEDENT ([facility]) Systolic blood pressure 124 mm[Hg] 124 mm[Hg] EDENT ([facility]) Heart rate 83 /min 83 /min [facility] ([facility]) Oxygen saturation in Arterial blood by Pulse oximetry 96 % 96 % MEDENT ([facility]) RM Air Body mass index (BMI) [Ratio] 36.9 kg/m2 36.9 k g/m2 MEDENT ([facility]) Diastolic blood pressure 80 mm[Hg] 80 mm[Hg] MEDENT ([facility]) Systolic blood pressure 132 mm[Hg] 132 mm[Hg] EDENT ([facility]) Heart rate 96 /min 96 /min [facility] ([facility]) Body height 61.75 [in_i] 61.75 [in_i] MEDENT ([facility]) 5'1.75" Body weight 200.00 [lb_av] 200.00 [lb_av] MEDEN T ([facility]) Body mass index (BMI) [Ratio] 36.9 kg/m2 36.9 k g/m2 MEDENT ([facility]) Systolic blood pressure 152 mm[Hg] 152 mm[Hg] M EDENT ([facility], [facility]) Diastolic blood pressure 89 mm[Hg] 89 mm[Hg] MEDENT ([facility], [facility]) Heart rate 90 /min 90 /min MEDENT ([facility], [facility]) Respiratory rate 16 /min 16 /min MEDENT ( [facility], [facility]) Oxygen saturation in Arterial blood by Pulse oximetry 97 % 97 % MEDENT ([facility], [facility]) Body temperature 98.5 [degF] 98.5 [degF] MEDENT ([facility], [facility]) Body weight 200.00 [lb_av] 200.00 [lb_av] MEDEN T ([facility], [facility]) Body height 64 [in_i] 64 [in_i] MEDENT ([facility], [facility]) 5'4" Body mass index (BMI) [Ratio] 34.3 kg/m2 34.3 k g/m2 MEDENT ([facility], [facility]) Body weight 199.6 [lb_av] 199.6 [lb_av] eCW1 ([facility]) Body weight 90.54 kg 90.54 kg eCW1 ([facility]) Body height 62 [in_i] 62 [in_i] eCW1 ([facility]) Body mass index (BMI) [Ratio] 36.50 kg/m2 36.50 kg/m2 eCW1 ([facility]) Heart rate 80 /min 80 /min eCW1 ([facility]) Respiratory rate 18 /min 18 /min eCW1 [facility] Body temperature 97.6 [degF] 97.6 [degF] eCW1 ( [facility]) Systolic blood pressure 190 mm[Hg] 190 mm[Hg] e CW1 ([facility]) Diastolic blood pressure 86 mm[Hg] 86 mm[Hg] eCW1 ([facility]) Body temperature 97.1 [degF] 97.1 [degF] MEDENT ([facility]) Body mass index (BMI) [Ratio] 38.1 kg/m2 38.1 k g/m2 MEDENT ([facility]) Body height 60.5 [in_i] 60.5 [in_i] MEDENT ([facility]) 5'0.50" Body weight 198.12 [lb_av] 198.12 [lb_av] MEDEN T ([facility]) Systolic blood pressure 138 mm[Hg] 138 mm[Hg] M EDENT ([facility]) Diastolic blood pressure 88 mm[Hg] 88 mm[Hg] MEDENT ([facility]) Heart rate 85 /min 85 /min MEDENT ([facility]) Body height 61.75 [in_i] 61.75 [in_i] MEDENT ([facility]) 5'1.75" Body weight 201.00 [lb_av] 201.00 [lb_av] MEDEN T ([facility]) Oxygen saturation in Arterial blood by Pulse oximetry 96 % 96 % MEDENT ([facility]) [facility] Body mass index (BMI) [Ratio] 37.1 kg/m2 37.1 k g/m2 MEDENT ([facility]) Body height 61.75 [in_i] 61.75 [in_i] MEDENT ([facility]) 5'1.75" Body weight 197.00 [lb_av] 197.00 [lb_av] MEDEN T ([facility]) Body mass index (BMI) [Ratio] 36.3 kg/m2 36.3 k g/m2 MEDENT ([facility]) Systolic blood pressure 130 mm[Hg] 130 mm[Hg] EDENT ([facility]) Diastolic blood pressure 74 mm[Hg] 74 mm[Hg] MEDENT ([facility]) Heart rate 76 /min 76 /min MEDENT ([facility]) Body height 62 [in_i] 62 [in_i] eCW1 ([facility]) Body weight 198 [lb_av] 198 [lb_av] eCW1 ([facility]) Body mass index (BMI) [Ratio] 36.21 kg/m2 36.21 kg/m2 [facility] ([facility]) Heart rate 83 /min 83 /min eCW1 ([facility]) Respiratory rate 18 /min 18 /min eCW1 ([facility] Body temperature 98.2 [degF] 98.2 [degF] eCW1 ( [facility]) Systolic blood pressure 181 mm[Hg] 181 mm[Hg] e CW1 ([facility]) Diastolic blood pressure 98 mm[Hg] 98 mm[Hg] eCW1 ([facility]) Heart rate 68 /min 68 /min MEDENT ([facility] ) Diastolic blood pressure 80 mm[Hg] 80 mm[Hg] MEDENT ([facility] ) Respiratory rate 20 /min 20 /min MEDENT ( [facility] ) Systolic blood pressure 130 mm[Hg] 130 mm[Hg] M EDENT ([facility] ) Body mass index (BMI) [Ratio] 36.3 kg/m2 36.3 k g/m2 MEDENT ([facility]) Body height 61.75 [in_i] 61.75 [in_i] MEDENT ([facility]) 5'1.75" Body temperature 97.2 [degF] 97.2 [degF] MEDENT ([facility]) Body weight 197.00 [lb_av] 197.00 [lb_av] MEDEN T ([facility] ) Heart rate 83 /min 83 /min eCW1 ([facility]) Body weight 199.6 [lb_av] 199.6 [lb_av] eCW1 ([facility]) Body height 62 [in_i] 62 [in_i] eCW1 ([facility]) Respiratory rate 18 /min 18 /min eCW1 ([facility] Systolic blood pressure 171 mm[Hg] 171 mm[Hg] e CW1 ([facility]) Diastolic blood pressure 83 mm[Hg] 83 mm[Hg] eCW1 ([facility]) Body temperature 98.6 [degF] 98.6 [degF] eCW1 ( [facility]) Body mass index (BMI) [Ratio] 36.50 kg/m2 36.50 kg/m2 eCW1 ([facility]) Body weight 199 [lb_av] 199 [lb_av] eCW1 ([facility]) Body height 62 [in_i] 62 [in_i] eCW1 ([facility]) Body mass index (BMI) [Ratio] 36.39 kg/m2 36.39 kg/m2 eCW1 ([facility]) Heart rate 63 /min 63 /min eCW1 ([facility]) Respiratory rate 18 /min 18 /min eCW1 ([facility] Body temperature 95.9 [degF] 95.9 [degF] eCW1 ( [facility]) Systolic blood pressure 147 mm[Hg] 147 mm[Hg] e CW1 ([facility]) Diastolic blood pressure 84 mm[Hg] 84 mm[Hg] eCW1 ([facility]) Systolic blood pressure 138 mm[Hg] 138 mm[Hg] [facility] Diastolic blood pressure 90 mm[Hg] 90 mm[Hg] [facility] Heart rate 74 /min 74 /min [facility] Respiratory rate 18 /min 18 /min [facility] Body weight 91.899 kg 91.899 kg [facility] Body mass index (BMI) [Ratio] 33.71 kg/m2 33.71 kg/m2 [facility] Oxygen saturation in Arterial blood by Pulse oximetry 96 % 96 % [facility] Systolic blood pressure 107 mm[Hg] 107 mm[Hg] [facility] Diastolic blood pressure 81 mm[Hg] 81 mm[Hg] [facility] Heart rate 75 /min 75 /min [facility] Body temperature 36.56 Joan 36.56 Joan [facility] Respiratory rate 18 /min 18 /min [facility] Oxygen saturation in Arterial blood by Pulse oximetry 96 % 96 % [facility] Body height 165.1 cm 165.1 cm [facility] Body weight 88.9 kg 88.9 kg [facility] Body mass index (BMI) [Ratio] 32.61 kg/m2 32.61 kg/m2 [facility] Body weight 202.2 [lb_av] 202.2 [lb_av] eCW1 ([facility]) Body height 62 [in_i] 62 [in_i] eCW1 ([facility]) Body mass index (BMI) [Ratio] 36.98 kg/m2 36.98 kg/m2 eCW1 ([facility]) Heart rate 85 /min 85 /min eCW1 ([facility]) Respiratory rate 18 /min 18 /min eCW1 ([facility] Body temperature 97.7 [degF] 97.7 [degF] eCW1 ( [facility]) Systolic blood pressure 128 mm[Hg] 128 mm[Hg] e CW1 ([facility]) Diastolic blood pressure 74 mm[Hg] 74 mm[Hg] eCW1 ([facility]) Heart rate 92 /min 92 /min MEDENT ([facility] Body height 60 [in_i] 60 [in_i] MEDENT ([facility]) 5'0" Body weight 199.12 [lb_av] 199.12 [lb_av] MEDEN T ([facility]) Respiratory rate 18 /min 18 /min MEDENT ( [facility]) Diastolic blood pressure 87 mm[Hg] 87 mm[Hg] MEDENT ([facility]) Body mass index (BMI) [Ratio] 38.9 kg/m2 38.9 k g/m2 MEDENT ([facility]) Systolic blood pressure 145 mm[Hg] 145 mm[Hg] M EDENT ([facility]) Diastolic blood pressure 94 mm[Hg] 94 mm[Hg] MEDENT ([facility], ) Systolic blood pressure 155 mm[Hg] 155 mm[Hg] M EDENT ([facility], ) Body weight 202.25 [lb_av] 202.25 [lb_av] MEDEN T ([facility]) Body mass index (BMI) [Ratio] 35.8 kg/m2 35.8 k g/m2 MEDENT ([facility]) [place] body weight 115 [lb_av] 115 [lb_av] MEDEN T ([facility]) Body weight 91.741 kg 91.741 kg MEDENT ([facility]) Body surface area Derived from formula 1.94 m2 1.94 m2 [facility] ([facility]) Body height 63 [in_i] 63 [in_i] MEDENT ([facility]) 5'3" Body weight 201.38 [lb_av] 201.38 [lb_av] MEDEN T ([facility]) Oxygen saturation in Arterial blood by Pulse oximetry 99 % 99 % MEDENT ([facility]) Air Body mass index (BMI) [Ratio] 37.1 kg/m2 37.1 k g/m2 MEDENT ([facility]) Diastolic blood pressure 80 mm[Hg] 80 mm[Hg] MEDENT ([facility]) Systolic blood pressure 120 mm[Hg] 120 mm[Hg] M EDENT ([facility]) Heart rate 87 /min 87 /min MEDENT ([facility]) Body height 61.75 [in_i] 61.75 [in_i] MEDENT [facility] 5'1.75" Systolic blood pressure 126 mm[Hg] 126 mm[Hg] [facility] Diastolic blood pressure 74 mm[Hg] 74 mm[Hg] [facility] Heart rate 78 /min 78 /min [facility] Body weight 91.173 kg 91.173 kg [facility] Body mass index (BMI) [Ratio] 36.76 kg/m2 36.76 kg/m2 [facility] Oxygen saturation in Arterial blood by Pulse oximetry 97 % 97 % [facility] Systolic blood pressure 161 mm[Hg] 161 mm[Hg] A THENA ([facility]) Body height 62 [in_i] 62 [in_i] COURT ([facility]) Diastolic blood pressure 89 mm[Hg] 89 mm[Hg] COURT ([facility]) Diastolic blood pressure 89 mm[Hg] 89 mm[Hg] COURT ([facility]) Systolic blood pressure 161 mm[Hg] 161 mm[Hg] A THENA ([facility]) Body height 62 [in_i] 62 [in_i] COURT ([facility]) Diastolic blood pressure 89 mm[Hg] 89 mm[Hg] COURT ([facility]) Body height 62 [in_i] 62 [in_i] COURT ([facility]) Systolic blood pressure 161 mm[Hg] 161 mm[Hg] A THENA ([facility]) Diastolic blood pressure 89 mm[Hg] 89 mm[Hg] COURT ([facility]) Body height 62 [in_i] 62 [in_i] COURT ([facility]) Systolic blood pressure 161 mm[Hg] 161 mm[Hg] A THENA ([facility]) Systolic blood pressure 134 mm[Hg] 134 mm[Hg] M EDENT ([facility]) Diastolic blood pressure 90 mm[Hg] 90 mm[Hg] MEDENT ([facility]) Body height 61.75 [in_i] 61.75 [in_i] MEDHEIDI ([facility]) 5'1.75" Body weight 200.00 [lb_av] 200.00 [lb_av] MEDEN T ([facility]) Oxygen saturation in Arterial blood by Pulse oximetry 98 % 98 % MEDHEIDI ([facility]) Body mass index (BMI) [Ratio] 36.9 kg/m2 36.9 k g/m2 MEDHEIDI ([facility]) Heart rate 80 /min 80 /min JAMILAH ([facility]) Systolic blood pressure 128 mm[Hg] 128 mm[Hg] [facility] Diastolic blood pressure 90 mm[Hg] 90 mm[Hg] [facility] Heart rate 91 /min 91 /min [facility] Body height 157.5 cm 157.5 cm [facility] Body weight 90.719 kg 90.719 kg [facility] Body mass index (BMI) [Ratio] 36.58 kg/m2 36.58 kg/m2 [facility] Oxygen saturation in Arterial blood by Pulse oximetry 95 % 95 % [facility] Heart rate 80 /min 80 /min MEDENT ([facility]) Systolic blood pressure 178 mm[Hg] 178 mm[Hg] M EDENT ([facility]) headaches Systolic blood pressure 150 mm[Hg] 150 mm[Hg] M EDENT ([facility]) Body mass index (BMI) [Ratio] 36.9 kg/m2 36.9 k g/m2 MEDENT ([facility]) Diastolic blood pressure 100 mm[Hg] 100 mm[Hg] MEDENT ([facility]) headaches Diastolic blood pressure 88 mm[Hg] 88 mm[Hg] MEDENT ([facility]) Body height 61.75 [in_i] 61.75 [in_i] MEDENT ([facility]) 5'1.75" Body weight 200.00 [lb_av] 200.00 [lb_av] MEDEN T ([facility]) Diastolic blood pressure 95 mm[Hg] 95 mm[Hg] COURT ([facility]) Body height 62 [in_i] 62 [in_i] COURT ([facility]) Systolic blood pressure 166 mm[Hg] 166 mm[Hg] A THENA ([facility]) Body height 62 [in_i] 62 [in_i] COURT ([facility]) Systolic blood pressure 166 mm[Hg] 166 mm[Hg] A THENA ([facility]) Diastolic blood pressure 95 mm[Hg] 95 mm[Hg] COURT ([facility]) Diastolic blood pressure 95 mm[Hg] 95 mm[Hg] COURT ([facility]) Body height 62 [in_i] 62 [in_i] COURT ([facility]) Systolic blood pressure 166 mm[Hg] 166 mm[Hg] A THENA ([facility]) Diastolic blood pressure 95 mm[Hg] 95 mm[Hg] COURT ([facility]) Body height 62 [in_i] 62 [in_i] COURT ([facility]) Systolic blood pressure 166 mm[Hg] 166 mm[Hg] A THENA ([facility]) Diastolic blood pressure 95 mm[Hg] 95 mm[Hg] COURT ([facility]) Body height 62 [in_i] 62 [in_i] COURT ([facility]) Systolic blood pressure 166 mm[Hg] 166 mm[Hg] A THENA ([facility]) Systolic blood pressure 157 mm[Hg] 157 mm[Hg] [facility] Diastolic blood pressure 92 mm[Hg] 92 mm[Hg] [facility] Heart rate 77 /min 77 /min [facility] Body temperature 36.44 Joan 36.44 Joan [facility] Respiratory rate 17 /min 17 /min [facility] Oxygen saturation in Arterial blood by Pulse oximetry 95 % 95 % [facility] Body weight 89.5 kg 89.5 kg [facility] Body mass index (BMI) [Ratio] 38.53 kg/m2 38.53 kg/m2 [facility] Body height 152.4 cm 152.4 cm [facility] Systolic blood pressure 140 mm[Hg] 140 mm[Hg] M EDENT ([facility]) Diastolic blood pressure 80 mm[Hg] 80 mm[Hg] MEDENT ([facility]) Body weight 201.00 [lb_av] 201.00 [lb_av] MEDEN T ([facility]) Body temperature 99.0 [degF] 99.0 [degF] MEDENT ([facility]) Systolic blood pressure 145 mm[Hg] 145 mm[Hg] M EDENT ([facility]) Diastolic blood pressure 96 mm[Hg] 96 mm[Hg] MEDENT ([facility]) [facility] 74 [facility]min [facility] Body temperature 97.1 [degF] 97.1 [degF] MEDENT ([facility]) Respiratory rate 16 /min 16 /min [facility] ( [facility]) Oxygen saturation in Arterial blood by Pulse oximetry 94 % 94 % MEDENT ([facility]) Heart rate 87 /min 87 /min MEDENT ([facility] Respiratory rate 16 /min 16 /min MEDENT ( [facility] Body weight 202.50 [lb_av] 202.50 [lb_av] MEDEN T ([facility]) Body height 60 [in_i] 60 [in_i] MEDENT ([facility] 5'0" Systolic blood pressure 151 mm[Hg] 151 mm[Hg] M EDENT ([facility]) Diastolic blood pressure 87 mm[Hg] 87 mm[Hg] MEDENT ([facility] Body mass index (BMI) [Ratio] 39.5 kg/m2 39.5 k g/m2 MEDENT ([facility]) Diastolic blood pressure 95 mm[Hg] 95 mm[Hg] COURT ([facility]) Body height 62 [in_i] 62 [in_i] COURT ([facility]) Systolic blood pressure 175 mm[Hg] 175 mm[Hg] A THENA ([facility]) Body height 62 [in_i] 62 [in_i] COURT ([facility]) Systolic blood pressure 175 mm[Hg] 175 mm[Hg] A THENA ([facility]) Diastolic blood pressure 95 mm[Hg] 95 mm[Hg] COURT ([facility]) Diastolic blood pressure 95 mm[Hg] 95 mm[Hg] COURT ([facility]) Body height 62 [in_i] 62 [in_i] COURT ([facility]) Systolic blood pressure 175 mm[Hg] 175 mm[Hg] A THENA ([facility]) Diastolic blood pressure 95 mm[Hg] 95 mm[Hg] COURT ([facility]) Body height 62 [in_i] 62 [in_i] COURT ([facility]) Systolic blood pressure 175 mm[Hg] 175 mm[Hg] A THENA ([facility]) Diastolic blood pressure 95 mm[Hg] 95 mm[Hg] COURT ([facility]) Body height 62 [in_i] 62 [in_i] COURT ([facility]) Systolic blood pressure 175 mm[Hg] 175 mm[Hg] A THENA ([facility]) Diastolic blood pressure 95 mm[Hg] 95 mm[Hg] COURT ([facility]) Body height 62 [in_i] 62 [in_i] COURT ([facility]) Systolic blood pressure 175 mm[Hg] 175 mm[Hg] A THENA ([facility]) Systolic blood pressure 130 mm[Hg] 130 mm[Hg] M EDENT ([facility]) Body height 61.75 [in_i] 61.75 [in_i] JAMILAH ([facility]) 5'1.75" Diastolic blood pressure 80 mm[Hg] 80 mm[Hg] JAMILAH ([facility]) Body mass index (BMI) [Ratio] 37.6 kg/m2 37.6 k g/m2 MEDHEIDI ([facility]) Body weight 204.00 [lb_av] 204.00 [lb_av] MEDEN T ([facility]) Patient Treatment Plan of Care Planned Activity Planned Date Details Description Data Source (s) onabotulinumtoxinA 100 UNT/ML Injectable Solution [Bot ox] 11/01/2020 12:00:00 AM EDT eCW1 ([facility]) onabotulinumtoxinA 100 UNT/ML Injectable Solution [Bot ox] 07/08/2020 12:00:00 AM EDT eCW1 ([facility]) Lisinopril 20 MG Oral Tablet 06/24/2020 12:00:00 AM EDT [facility] normal saline flush 0.9 % injection 3 mL 06/22/2020 03:00:00 PM EDT [facility] sodium chloride 0.9% (NS) infusion 06/22/2020 03:00:00 PM EDT [facility] Nitroglycerin 0.4 MG Sublingual Tablet 06/22/2020 02:18:36 PM EDT [facility] 10 ML Atropine Sulfate 0.1 MG/ML Prefilled Syringe 06/22/2020 02 :18:35 PM EDT [facility] normal saline flush 0.9 % injection 3 mL 06/22/2020 02:00:00 PM EDT [facility] normal saline flush 0.9 % injection 3 mL 06/22/2020 02:00:00 PM EDT [facility] clopidogrel 75 MG Oral Tablet 06/22/2020 12:00:00 AM EDT [facility] 24 HR Isosorbide Mononitrate 30 MG Extended Release Or al Tablet 06/16/2020 12:00:[address] [facility] Lisinopril 20 MG Oral Tablet 06/15/2020 12:00:00 AM EDT [facility] prednisolone acetate 10 MG/ML Ophthalmic Suspension 05/29/19 12:00:00 AM EDT [facility] clopidogrel 75 MG Oral Tablet 05/19/2020 12:00:00 AM EDT [facility] atorvastatin 80 MG Oral Tablet 04/28/2020 12:00:00 AM EST [facility] Bisoprolol Fumarate 10 MG Oral Tablet 04/28/2020 12:00:00 AM EST [facility] prednisolone acetate 10 MG/ML Ophthalmic Suspension 04/28/19 12:00:00 AM EST ONG (Pancho Larsen MD [facility]) Lisinopril 10 MG Oral Tablet 03/11/2020 12:00:00 AM EST [facility] 120 ACTUAT Fluticasone propionate 0.23 M G/ACTUAT / salmeterol 0.021 MG/ACTUAT Metered Dose Inhaler [Advair] 03/06/2020 12:00:00 AM EST [facility] Bisoprolol Fumarate 10 MG Oral Tablet 01/29/2020 12:00:00 AM EST [facility] atorvastatin 80 MG Oral Tablet 01/29/2020 12:00:00 AM EST [facility] 24 HR Isosorbide Mononitrate 30 MG Extended Release Or al Tablet 01/24/2020 12:00:[address] [facility] Bisoprolol Fumarate 5 MG Oral Tablet 01/24/2020 12:00:00 AM EST [facility] Lisinopril 5 MG Oral Tablet 01/23/2020 12:00:00 AM EST [facility] clopidogrel 75 MG Oral Tablet 01/23/2020 12:00:00 AM EST [facility] Trazodone Hydrochloride 100 MG Oral Tablet 01/08/2020 12:00:00 AM E [facility] clopidogrel 75 MG Oral Tablet 12/30/2019 12:00:00 AM EST [facility] 120 ACTUAT Fluticasone propionate 0.23 M G/ACTUAT / salmeterol 0.021 MG/ACTUAT Metered Dose Inhaler [Advair] 12/09/2019 12:00:00 AM EDT [facility] gabapentin 600 MG Oral Tablet 11/11/2019 12:00:00 AM EDT [facility] carvedilol 25 MG Oral Tablet 08/11/2019 12:00:00 AM EDT [facility] fluticasone (FLONASE) 50 MCG/ACT nasal spray 02/22/2019 12:00:00 AM EST [facility] loteprednol etabonate 0.005 MG/MG Ophthalmic Ointment [Lotemax] 02/08/2018 12:00:00 AM EST ONG (Pancho Larsen MD [facility]) Lisinopril 2.5 MG Oral Tablet 05/17/2016 12:00:00 AM EDT [facility] atorvastatin 40 MG Oral Tablet 03/17/2016 12:00:00 AM EST [facility] Melatonin 10 MG Oral Tablet 03/17/2016 12:00:00 AM EST [facility] alcaftadine 2.5 MG/ML Ophthalmic Solution [Lastacaft] 01/20/2016 12:00:00 AM EST ONG (Pancho Larsen MD [facility]) Oxycodone Hydrochloride [address] ([facility]) Ondansetron [address] ([facility]) Nystatin [id number] UNT/ML Topical Cream COURT ([facility]) NITROFURANTOIN, MACROCRYSTALS 25 MG / Ni trofurantoin, Monohydrate [address] ([facility]) Lisinopril [address] ([facility]) Lisinopril 2.[address] ([facility]) Lisinopril [address] ([facility]) Isosorbide Dinitrate [address] ([facility]) Ibuprofen [address] ([facility]) Acetaminophen 325 MG / Hydrocodone Bitartrate [address] ([facility]) Doxycycline Monohydrate [address] ([facility]) Clonazepam 0.[address] ([facility]) Cephalexin [address] ([facility]) carvedilol [address] ([facility]) Bisoprolol Fumarate [address] ([facility]) atorvastatin [address] ([facility]) Trazodone Hydrochloride [address] ([facility]) tramadol hydrochloride [address] ([facility]) Oxycodone Hydrochloride [address] ([facility]) Ondansetron [address] ([facility]) Nystatin 114635 UNT/ML Topical Cream COURT ([facility]) NITROFURANTOIN, MACROCRYSTALS 25 MG / Ni trofurantoin, Monohydrate [address] ([facility] Lisinopril [address] ([facility]) Lisinopril 2.[address] ([facility]) Lisinopril [address] ([facility]) Isosorbide Dinitrate [address] ([facility]) Ibuprofen [address] ([facility]) Acetaminophen 325 MG / Hydrocodone Bitartrate [address] ([facility]) Clonazepam 0.[address] ([facility]) carvedilol [address] ([facility]) Bisoprolol Fumarate [address] ([facility]) atorvastatin [address] ([facility]) Trazodone Hydrochloride [address] ([facility]) tramadol hydrochloride [address] ([facility]) Oxycodone Hydrochloride [address] ([facility]) Ondansetron [address] ([facility]) Nystatin 803182 UNT/ML Topical Cream COURT ([facility]) NITROFURANTOIN, MACROCRYSTALS 25 MG / Ni trofurantoin, Monohydrate [address] ([facility] Lisinopril [address] ([facility]) Lisinopril 2.[address] ([facility]) Lisinopril [address] ([facility]) Isosorbide Dinitrate [address] ([facility]) Ibuprofen [address] ([facility]) Acetaminophen 325 MG / Hydrocodone Bitartrate [address] ([facility]) Doxycycline Monohydrate [address] ([facility]) Clonazepam 0.[address] ([facility]) Cephalexin [address] ([facility]) carvedilol [address] ([facility]) Bisoprolol Fumarate [address] ([facility]) atorvastatin [address] ([facility]) Trazodone Hydrochloride [address] ([facility]) tramadol hydrochloride [address] ([facility]) 24 HR Isosorbide Mononitrate 30 MG Extended Release Oral Tablet [facility] Oxycodone Hydrochloride 5 MG Oral Tablet [facility] Diclofenac Sodium 0.01 MG/MG Topical Gel [facility] 120 ACTUAT Fluticasone propionate 0.115 MG/ACTUAT / salmeterol 0.021 MG/ACTUAT Metered Dose Inhaler [facility] Trazodone Hydrochloride 150 MG Oral Tablet [facility] Trazodone Hydrochloride [address] ([facility]) tramadol hydrochloride [address] ([facility]) Oxycodone Hydrochloride [address] ([facility]) Ondansetron [address] ([facility]) Nystatin 445159 UNT/ML Topical Cream COURT ([facility]) Lisinopril 2.[address] ([facility]) Isosorbide Dinitrate [address] ([facility]) Acetaminophen 325 MG / Hydrocodone Bitartrate [address] ([facility]) fluticasone propionate 50 mcg/actuation nasal spray,suspension COURT ([facility]) Bisoprolol Fumarate [address] ([facility]) atorvastatin [address] ([facility]) Oxycodone Hydrochloride [address] ([facility]) Ondansetron [address] ([facility]) Isosorbide Dinitrate [address] ([facility]) fluticasone propionate 50 mcg/actuation nasal spray,suspension COURT ([facility]) CALCIUM CARBONATE-VITAMIN D PO [facility] Trazodone Hydrochloride [address] ([facility])
--- NOTE | 2021-01-23 00:39 | HPEPDOC ---
General Date of Admission Jan 23, 2021 at 00:14 Date of Service: Jan 23, 2021 Chief Complaint The patient is a 65-year-old female admitted with a reason for visit of RSV. Source: Patient History of Present Illness Lianne Tuttle is a 65-year-old female with significant history of hypertension, hyperlipidemia, CAD, GERD, anxiety, chronic back pain, and OA who arrives with complaints of sob. Patient reports shortness of breath x3 days. She does report generalized malaise, productive cough, sinus congestion, sore throat, fever/chills, and myalgias for reportedly 6 weeks. Patient denies personal tobacco use history but does endorse long-term secondhand smoke exposure. She denies history of asthma or COPD. Patient does endorse sick contact of her granddaughter past week who had RSV. Minimal relief with nyquil and tylenol; reports inability to rest past 3 days due to coughing. Pt denies palpitations, chest pain, n/v/d, weakness, sensory changes or syncope. Patient does endorse right rib/right upper quadrant discomfort. She also endorses constipation x5 days. She reports it is not uncommon for her to have constipation but at 5 days she does endorse bloating sensation. EKG sinus tach. Of note, pt febrile 101.6, tachycardic 115, hypertensive 174/89, RR24, labile spo2, requiring 2LNC to remain 93%. CXR pend. BC and sputum culture sent. PCR+ RSV. Lab work significant for leukocytosis but no lactic acidosis, sodium 132, elevated liver enzymes to include bili 0.5, AST 116, ALT 84, alk phos 280. Patient will be admitted for further evaluation management presenting concerns Home Medications Scheduled Atorvastatin Calcium (Atorvastatin Calcium) 80 Mg Tablet, 80 MG PO QHS, (Reported) Baclofen (Baclofen) 10 Mg Tablet, 10 MG PO BID, (Reported) Bisoprolol Fumarate (Bisoprolol Fumarate) 10 Mg Tablet, 10 MG PO DAILY, (Reported) Calcium Carbonate/Vitamin D3 (Calcium 500-Vit D3 400 Tablet) 1 Each Tablet, 1 TAB PO BID, (Reported) Clopidogrel Bisulfate (Clopidogrel) 75 Mg Tablet, 75 MG PO QHS, (Reported) Cyclosporine (Restasis) 0.05% Droperette, 1 DROP OU BID, (Reported) Fluticasone Propion/Salmeterol (Advair Hfa 230-21 Mcg Inhaler) 12 Gm Hfa.aer.ad, 2 PUFF INH BID, (Reported) Fluticasone Propionate (Flonase Allergy Relief) 9.9 Ml Tennga.susp, 50 MCG NA DAILY, (Reported) Gabapentin (Gabapentin) 400 Mg Capsule, 400 MG PO DAILY, (Reported) Gabapentin (Gabapentin) 600 Mg Tablet, 600 MG PO QHS, (Reported) Isosorbide Mononitrate (Isosorbide Mononitrate ER) 30 Mg Tab.er.24h, 30 MG PO DAILY, (Reported) Lisinopril (Lisinopril) 20 Mg Tablet, 20 MG PO QHS, (Reported) Melatonin (Melatonin) 10 Mg Capsule, 10 MG PO QHS, (Reported) Montelukast Sodium (Montelukast Sodium) 10 Mg Tablet, 10 MG PO DAILY, (Reported) Nortriptyline HCl (Nortriptyline HCl) 25 Mg Capsule, 25 MG PO QHS, (Reported) Pantoprazole Sodium (Pantoprazole Sodium) 40 Mg Tablet.dr, 40 MG PO BID, (Reported) Sertraline Hcl (Zoloft) 50 Mg Tab, 50 MG PO DAILY, (Reported) Sucralfate (Sucralfate) 1 Gm Tablet, 1 GM PO TID, (Reported) Topiramate (Topiramate) 100 Mg Tablet, 100 MG PO BID, (Reported) Trazodone HCl (Trazodone HCl) 100 Mg Tablet, 100 MG PO QHS, (Reported) Scheduled PRN Albuterol Sulfate (Proventil Hfa) 6.7 Gm Hfa.aer.ad, 2 MCG INH Q4HP PRN for SOB/WHEEZING, (Reported) Lidocaine (Lidoderm) 5% Adh..patch, 1 PATCH TD DAILY PRN for PAIN, (Reported) Apply to BACK, Remove patch after 12 hours Nitroglycerin (Nitroglycerin) 0.4 Mg Sub, for CHEST PAIN, (Reported) Oxycodone/Acetaminophen (Oxycodone-Acetaminophen 5-325) 1 Each Tablet, 1 TAB PO Q8HP PRN for PAIN, (Reported) Allergies Coded Allergies: acetaminophen (Verified Allergy, Unknown, 11/13/20) amoxicillin (Unverified Adverse Reaction, Unknown, diarrhea, 05/29/18) cefuroxime (Unverified Adverse Reaction, Unknown, diarrhea, 4/10/19) clavulanic acid (Unverified Adverse Reaction, Unknown, diarrhea, 05/29/18) morphine (Unverified Adverse Reaction, Unknown, muscle twitching, jittery, 05/29/18) pregabalin (Unverified Adverse Reaction, Unknown, blurred vision, 05/29/18) propoxyphene (Unverified Adverse Reaction, Unknown, hallucinations, dizziness, 05/29/18) Past Medical History Medical History hypertension, hyperlipidemia, CAD, GERD, anxiety, chronic back pain, and OA Surgical History , hysterectomy, hammertoe surgery, cardiac stents, right foot surgery Family History Significant Family History: Cancer, Diabetes, Heart disease, Hypertension Social History * Smoker: non-smoker, secondhand, cigarettes Alcohol: Denies Drugs: denies Recent Travel/Sick Contacts: Reports: Recent sick contacts (Granddaughter) Psychosocial History: Anxiety Patient lives with her A-FIB/[facility] A-FIB History Current/History of A-Fib/PAF?: No Current PO Anticoag Therapy: No Review of Systems Constitutional: Reports: Malaise; Denies: Chills, Fever, Night Sweats Eyes: Denies: Pain, Vision change ENT: Denies: Head Aches, Ear Pain, Dysphagia Skin: Denies: Rash, Lesions, Breakdown Pulmonary: Reports: Dyspnea, Cough Cardiovascular: Denies: Chest Pain, Palpitations, Orthopnea, Paroxysmal Noc. Dyspnea, Lt Headedness Gastrointestinal: Denies: Nausea, Vomiting, Abdominal Pain, Diarrhea Genitourinary: Denies: Dysuria, Frequency, Incontinence, Retention Hematologic: Denies: Bruising, Bleeding Excessively Musculoskeletal: Denies: Neck Pain, Back Pain, Joint Pain, Muscle Pain, Spasms Neurological: Denies: Weakness, Numbness, Change in speech, Confusion Psych: Reports: Mood Normal; Denies: Depression, Memory Issues Physical Examination General Exam: Positive: Alert, Cooperative, No Acute Distress, Other (Ill appearance) Eye Exam: Positive: PERRLA, Conjunctiva & lids normal, EOMI, Sclera icteric ENT Exam: Positive: Atraumatic, Mucous membr. moist/pink, Pharynx Normal Neck Exam: Positive: Supple; Negative: JVD, thyromegaly Chest Exam: Positive: Rales Heart Exam: Positive: Tachycardic, Regular Rhythm, Normal S1, Normal S2; Negative: Murmurs, Rubs Telemetry: Positive: Sinus, Tachycardia Abdomen Exam: Positive: Normal bowel sounds, Soft, Tenderness (Right upper quadrant tenderness), Other (Rounded abdomen but soft); Negative: Hepatospenomegaly Extremity Exam: Positive: Normal pulses; Negative: Clubbing, Cyanosis, Edema Skin Exam: Positive: Nl turgor and temperature; Negative: Breakdown, Lesion Neuro Exam: Positive: Normal Gait, Normal Speech, Cranial Nerves 3-12 NL, Reflexes 2+ Psych Exam: Positive: Mental status NL, Mood NL, Oriented x 3 Vital Signs Vital Signs Date Time Temp Pulse Resp B/P (MAP) Pulse Ox O2 Delivery O2 Flow Rate FiO2 01/22/21 23:55 112 94 01/22/21 23:45 28 161/86 (111) Nasal Cannula 2.0 01/22/21 21:11 101.6 Laboratory Data Labs 24H Laboratory Tests 2 01/22/21 22:09: Blood Gas Bicarbonate Standard 22.9, Venous Blood pH 7.386, Venous Blood Partial Pressure CO2 40.6, Venous Blood Partial Pressure O2 36.2, Venous Blood Total C arbon Dioxide 25.1, Venous Blood HCO3 23.8, Venous Blood Oxygen Saturation 70.7, Venous Blood Base Excess -1.1, Lactic Acid Level 0.7 01/22/21 22:11: Immature Granulocyte % (Auto) 0.5, Neutrophils (%) (Auto) 78.0H, Lymphocytes (%) (Auto) 9.5L, Monocytes (%) (Auto) 11.3H, Eosinophils (%) (Auto) 0.3, Basophils (%) (Auto) 0.4, Neutrophils # (Auto) 9.0H, Lymphocytes # (Auto) 1.1L, Monocytes # (Auto) 1.3H, Eosinophils # (Auto) 0.0, Basophils # (Auto) 0.1, Nucleated Red Blood Cells % (auto) 0.0, Prothrombin Time 14.6H, Prothromb Time International Ratio 1.09, Activated Partial Thromboplast Time 38.2, Anion Gap 10, Glomerular Filtration Rate > 60.0, Calcium Level 8.5L, Total Bilirubin 0.9, Direct Bilirubin 0.5H, Aspartate Amino Transf (AST/SGOT) 116H, Alanine Aminotransferase (ALT/SGPT) 84H, Alkaline Phosphatase 280H, QY-Cuk-B-Type Natriuretic Peptide 424H, Total Protein 6.9, Albumin 2.8L, Albumin/Globulin Ratio 0.7L, Thyroid Stimulating Hormone (TSH) 0.198L CBC/BMP Laboratory Tests 01/22/21 22:11 Microbiology Microbiology 01/22/21 Respiratory Virus Panel (PCR) ([facility]) - Final, Complete Respiratory Syncytial Virus 01/22/21 Blood Culture, Received Pending 01/22/21 Gram Stain, Received Pending 01/22/21 Sputum Culture, Received Pending 01/22/21 Blood Culture, Received Pending Assessment/Plan 1. Sepsis secondary to RSV and presumed superimposed bacterial pneumonia: -Monitor for signs symptoms worsening infection and respiratory status -Oxygen as needed to keep saturations greater than 92% -Empiric coverage: Rocephin and doxycycline Symptomatic/supportive care-as needed breathing treatments and antitussives A.m. labs, check procalcitonin and follow-up sputum culture to consider escalation or de-escalation antibiotics 2. Tachycardia: Likely due to fever and demand with above -Telemetry monitoring, received hydration in the ED -We will check magnesium level and replete as necessary 3. Right rib/right upper quadrant discomfort: Patient does not report this is a chief complaint only with review of systems. Possibly MSK related with frequent coughing versus consideration for gallbladder or liver involvement given LFTS; although patient without Positive serna sign or GI complaints so lower suspicion of acute GI process. -Monitor patient, symptomatic treatment/supportive care -Treat above and below and consider differential 4. Constipation: Patient reports that she struggles with constipation at baseline however she has not had a bowel movement in 5 days. She does take pain medicine on a regular basis due to her back pain and this will likely contributing in setting of infection. -Plan for bowel regimen, consider enema. 5. Mild transaminitis: In setting of NyQuil use. Patient denies EtOH history. -Amylase and lipase and acetaminophen level pending -CMP in AM -Consider differential and need for right upper quadrant or liver ultrasound pending patient response with right side discomfort after managing cough and constipation. 6. Hypertension: -Monitor BP in setting of above. Continue home medications once reconciled. 7. GERD: Continue Protonix and Carafate. 8. JAY: CPAP at bedtime 9. CAD: Continue patient Plavix for cardiac stents. *Of note, patient reports that she has a back stimulator and this complicates EKG/telemetry monitoring. 10. Obesity: Complicates care 11. Chronic pain: Patient with back stimulator. -Continue as needed home pain management medications. -Encourage nonpharmacologic methods as adjunct. DVT prophylaxis: Elevated Inocencia score; heparin subcu CODE STATUS full code Disposition planning: Anticipate 2 midnight stay Plan / VTE VTE Prophylaxis Ordered?: Yes SAMANTHA FAUST NP Jan 23, 2021 00:37
[2021-01-23 00:42] LABS: MAGNESIUM LEVEL 1.9 MG/DL (1.8-2.4)
[2021-01-23] MEDS ORDERED: HOME MED LIST COMPLETE! XX SCH (01:05)
--- NOTE | 2021-01-23 01:09 | REPVR ---
PROCEDURE INFORMATION: Exam: XR Chest Exam date and time: 01/22/2021 11:00 PM Age: 65 years old Clinical indication: Other: Dyspnea/cough TECHNIQUE: Imaging protocol: XR of the chest. Views: 1 view. COMPARISON: CR PORTABLE CHEST X-RAY 12/29/2019 12:32 PM FINDINGS: Tubes, catheters and devices: Spinal stimulator electrode is unchanged. Lungs: Linear opacities in the lung bases may be due to atelectasis or scarring. No definite infiltrates are seen but evaluation is limited by low lung volumes. Pleural spaces: No pleural effusion. No pneumothorax. Heart/Mediastinum: Unremarkable. No cardiomegaly. Bones/joints: Prior ACDF in the lower cervical spine. IMPRESSION: 1. Bibasilar atelectasis or scarring. 2. No acute findings. Electronically signed by: Miki Reilly On 01/23/2021 01:09:23 AM
[2021-01-23 01:45] LABS: ACETAMINOPHEN LEVEL < 2.0 UG/ML (10.0-30.0); AMYLASE 54 U/L (25-115); FREE T4 1.82 NG/DL (0.76-1.46); LIPASE 70 U/L (73-393)
[2021-01-23] MEDS ORDERED: guaiFENesin DM LIQ 10ML UD PO PRN (01:55)
[2021-01-23] MEDS ORDERED: SENNA 8.6 MG TAB (SENOKOT) PO PRN (01:55)
[2021-01-23] MEDS ORDERED: LIDOCAINE 5% (LIDODERM) PATCH TD PRN (01:55)
[2021-01-23] MEDS ORDERED: RAMELTEON 8 MG TAB (ROZEREM) PO PRN (01:55)
[2021-01-23] MEDS ORDERED: IBUPROFEN 400MG TAB PO ONE (02:10)
[2021-01-23] MEDS: DOXYCYCLINE HYCLATE 100 MG in D5W MINI-BAG PLUS 100 ML IV SCH ×2 (02:31→13:56)
[2021-01-23] MEDS: DOCUSATE SODIUM 100MG CAPSULE PO SCH ×3 (03:54→21:11)
[2021-01-23 06:21] LABS: BASO % 0.3 % (0.0-1.0); EOS % 0.2 % (0.0-3.0); HEMATOCRIT 35.5 % (36.0-47.0); HEMOGLOBIN 11.6 g/dl (12.0-15.5); LYMPH # 1.4 10^3/uL (1.5-5.0); LYMPH % 11.3 % (24.0-44.0); MEAN CORPUSCULAR HEMOGLOBIN 30.2 pg (27.0-33.0); MEAN CORPUSCULAR HGB CONC 32.7 g/dl (32.0-36.5); MEAN CORPUSCULAR VOLUME 92.4 fl (80.0-96.0); MONO % 12.1 % (2.0-8.0); NEUTROPHILS # 9.5 10^3/uL (1.5-8.5); NEUTROPHILS % 75.5 % (36.0-66.0); PLATELET COUNT, AUTOMATED 297 10^3/uL (150-450); RED BLOOD COUNT 3.84 10^6/uL (4.00-5.40); WHITE BLOOD COUNT 12.6 10^3/uL (4.0-10.0)
[2021-01-23 06:43] LABS: BLOOD UREA NITROGEN 7 MG/DL (7-18); CALCIUM LEVEL 8.5 MG/DL (8.8-10.2); CARBON DIOXIDE LEVEL 22 MEQ/L (21-32); CHLORIDE LEVEL 103 MEQ/L (98-107); CREATININE FOR GFR 0.59 MG/DL (0.55-1.30); GLOMERULAR FILTRATION RATE > 60.0 (>45); GLUCOSE, FASTING 111 MG/DL (70-100); POTASSIUM SERUM 3.4 MEQ/L (3.5-5.1); SODIUM LEVEL 135 MEQ/L (136-145)
[2021-01-23 06:52] LABS: MONO # 1.5 10^3/uL (0.0-0.8)
--- NOTE | 2021-01-23 08:16 | ECGEPIP ---
[facility] - ED Test Date: 2021-01-22 Pat Name: MADYSON TRAORE Department: Room: [place] [address] Gender: Female Research Hydrologist: NANO : 1955 Requested By: EFREN Mittal Order Number: [id number] Reading MD: Myra Irving Measurements Intervals Sage Rate: 111 P: 23 ND: 168 QRS: -21 QRSD: 70 T: 23 QT: 318 QTc: 432 Interpretive Statements Sinus tachycardia Low voltage QRS NSTTW abnormalities Inferior infarct , age undetermined Cannot rule out Anterior infarct , age undetermined baseline artifact may affect interpretation increased rate 12/29/19 Electronically Signed on 01-23-2021 8:16:38 EST by Myra Irving
[2021-01-23] MEDS: MIRALAX *UNIT DOSE* 17GM PACKET PO SCH (09:00)
[2021-01-23] MEDS: ADVAIR HFA 230/21MCG INHALER INH SCH ×2 (09:03→20:37)
[2021-01-23] MEDS: LACTOBACILLUS ACIDOPHILUS CAP (BACID) PO SCH (10:35)
[2021-01-23] MEDS: bisoproloL fumarate 10 MG TAB PO SCH (10:38)
[2021-01-23] MEDS: GABAPENTIN 400MG CAP PO SCH (10:39)
[2021-01-23] MEDS: SUCRALFATE 1 GM TAB PO SCH ×3 (10:39→21:11)
[2021-01-23] MEDS: SERTRALINE HCL 50 MG TAB PO SCH (10:39)
[2021-01-23] MEDS: CALCIUM/VITAMIN D 500 MG TAB PO SCH ×2 (10:39→21:11)
[2021-01-23] MEDS: BACLOFEN 10 MG TAB PO SCH ×2 (10:39→21:11)
[2021-01-23] MEDS: PANTOPRAZOLE 40MG TAB (PROTONIX) PO SCH ×2 (10:39→21:10)
[2021-01-23] MEDS: ISOSORBIDE MON. (IMDUR) 30 MG XR TAB PO SCH (10:40)
[2021-01-23] MEDS: TOPIRAMATE (TopAMAX) 100 MG TAB PO SCH ×2 (10:40→21:10)
[2021-01-23] MEDS: MONTELUKAST 10 MG TAB PO SCH (10:40)
[2021-01-23] MEDS: FLUTICASONE PROP 0.05% NASAL SPRAY 16 GM (FLONASE) SCH (10:41)
--- NOTE | 2021-01-23 12:52 | IPNPDOC ---
Text Note Date of Service The patient was seen on 01/23/21. NOTE Subjective: Patient complains of greenish sputum production and intermittent cough. She denies any fever chills. Objective: GENERAL APPEARANCE: NAD HEENT: no scleral icterus, no JVD, EOMI CARDIOVASCULAR: S1S2 LUNGS: Diminished lung sounds bilaterally ABDOMEN: soft & not tender w palpation MUSCULOSKELETAL: no cyanosis, no swelling INTEGUMENT: no generalized pallor NEUROLOGICAL: cranial nerve function from 2-12 intact, follows commands, speech not dysarthric Assessment and plan: Patient is 65 years old male with past medical history of hypertension, hyperlip idemia, CAD, GERD, anxiety, chronic back pain, and OA presented to hospital with increased shortness of breath and intermittent cough. Patient was tested positive for upper respiratory infection secondary to RSV SIRS Secondary to community-acquired pneumonia most likely secondary to RSV superimposed with bacterial component Blood culture, sputum culture pending Rocephin IV, doxycycline IV Incentive spirometry IV fluid Tachycardia Secondary to SIRS Improved Abdominal pain Resolved Constipation Continue bowel regimen Transaminitis Continue to monitor Hypertension Continue home meds Blood pressure under control GERD Continue PPI JAY: CPAP at bedtime CAD: Continue patient Plavix Obesity: Complicates care Chronic pain: Patient with back stimulator. -Continue as needed home pain management medications DVT prophylaxis with heparin subcutaneously VS,Fishbone, I+O VS, Fishbone, I+O Laboratory Tests 01/22/21 22:11 01/23/21 05:59 Vital Signs Date Time Temp Pulse Resp B/P (MAP) Pulse Ox O2 Delivery O2 Flow Rate FiO2 01/23/21 10:38 90 151/89 01/23/21 09:03 20 01/23/21 08:00 95 Nasal Cannula 4.0 01/23/21 06:00 97.3 I&O- Last 24 Hours up to 6 AM 01/23/21 05:59 Intake Total 270 ml Balance 270 ml GUILLAUME DAVILA DO Jan 23, 2021 12:52
[2021-01-23] MEDS: guaiFENesin SYRUP 200 MG/10 ML UDC PO PRN ×2 (13:06→23:24)
[2021-01-23] MEDS: NS 1,000 ML IV SCH ×2 (13:06→21:12)
[2021-01-23] MEDS ORDERED: predniSONE 20 MG TAB PO ONE (14:00)
[2021-01-23] MEDS ORDERED: **NOTE PATIENT COMMENT** MISC XX PRN (21:00)
[2021-01-23] MEDS: traZODone 100 MG TAB PO SCH (21:10)
[2021-01-23] MEDS: GABAPENTIN 300 MG CAP PO SCH (21:10)
[2021-01-23] MEDS: CLOPIDOGREL 75 MG TAB PO SCH (21:10)
[2021-01-23] MEDS: cefTRIAXone SOD 1 GM in D5W MINI-BAG PLUS 50 ML IV SCH (21:10)
[2021-01-23] MEDS: NORTRIPTYLINE 25 MG CAP PO SCH (21:10)
[2021-01-23] MEDS: ATORVASTATIN 20 MG TAB PO SCH (21:11)
[2021-01-24] MEDS: DOXYCYCLINE HYCLATE 100 MG in D5W MINI-BAG PLUS 100 ML IV SCH ×2 (01:49→14:54)
[2021-01-24] MEDS: NS 1,000 ML IV SCH ×2 (04:19→14:54)
[2021-01-24 06:11] VITALS: BP 151/90
[2021-01-24 06:58] LABS: BASO % 0.2 % (0.0-1.0); HEMATOCRIT 32.9 % (36.0-47.0); HEMOGLOBIN 10.8 g/dl (12.0-15.5); LYMPH # 1.2 10^3/uL (1.5-5.0); LYMPH % 10.9 % (24.0-44.0); MEAN CORPUSCULAR HEMOGLOBIN 30.6 pg (27.0-33.0); MEAN CORPUSCULAR HGB CONC 32.8 g/dl (32.0-36.5); MEAN CORPUSCULAR VOLUME 93.2 fl (80.0-96.0); MONO # 0.9 10^3/uL (0.0-0.8); MONO % 8.2 % (2.0-8.0); NEUTROPHILS # 8.8 10^3/uL (1.5-8.5); NEUTROPHILS % 80.2 % (36.0-66.0); PLATELET COUNT, AUTOMATED 307 10^3/uL (150-450); RED BLOOD COUNT 3.53 10^6/uL (4.00-5.40); WHITE BLOOD COUNT 10.9 10^3/uL (4.0-10.0)
[2021-01-24 07:38] LABS: ALT/SGPT 54 U/L (12-78); BILIRUBIN,TOTAL 0.4 MG/DL (0.2-1.0); BLOOD UREA NITROGEN 11 MG/DL (7-18); CALCIUM LEVEL 7.9 MG/DL (8.8-10.2); CARBON DIOXIDE LEVEL 20 MEQ/L (21-32); CHLORIDE LEVEL 112 MEQ/L (98-107); CREATININE FOR GFR 0.49 MG/DL (0.55-1.30); GLOMERULAR FILTRATION RATE > 60.0 (>45); GLUCOSE, FASTING 112 MG/DL (70-100); POTASSIUM SERUM 3.4 MEQ/L (3.5-5.1); SODIUM LEVEL 140 MEQ/L (136-145); TOTAL PROTEIN 5.5 GM/DL (6.4-8.2)
[2021-01-24] MEDS: ADVAIR HFA 230/21MCG INHALER INH SCH ×2 (07:50→19:58)
[2021-01-24] MEDS ORDERED: MAG SULF 1GM/100ML (MAG RUN) 1 GM in IV 1 EA IV ONE (09:00)
[2021-01-24] MEDS: DOCUSATE SODIUM 100MG CAPSULE PO SCH ×2 (09:00→20:13)
[2021-01-24] MEDS: MIRALAX *UNIT DOSE* 17GM PACKET PO SCH (09:00)
[2021-01-24] MEDS: guaiFENesin SYRUP 200 MG/10 ML UDC PO PRN (09:24)
[2021-01-24] MEDS: SUCRALFATE 1 GM TAB PO SCH ×3 (09:25→20:10)
[2021-01-24] MEDS: TOPIRAMATE (TopAMAX) 100 MG TAB PO SCH ×2 (09:26→20:12)
[2021-01-24] MEDS: CALCIUM/VITAMIN D 500 MG TAB PO SCH ×2 (09:26→20:12)
[2021-01-24] MEDS: BACLOFEN 10 MG TAB PO SCH ×2 (09:26→20:12)
[2021-01-24] MEDS: bisoproloL fumarate 10 MG TAB PO SCH (09:26)
[2021-01-24] MEDS: MONTELUKAST 10 MG TAB PO SCH (09:27)
[2021-01-24] MEDS: predniSONE 20 MG TAB PO SCH (09:27)
[2021-01-24] MEDS: ISOSORBIDE MON. (IMDUR) 30 MG XR TAB PO SCH (09:27)
[2021-01-24] MEDS: GABAPENTIN 400MG CAP PO SCH (09:27)
[2021-01-24] MEDS: SERTRALINE HCL 50 MG TAB PO SCH (09:27)
[2021-01-24] MEDS: LACTOBACILLUS ACIDOPHILUS CAP (BACID) PO SCH (09:27)
[2021-01-24] MEDS: PANTOPRAZOLE 40MG TAB (PROTONIX) PO SCH ×2 (09:27→20:13)
[2021-01-24] MEDS: FLUTICASONE PROP 0.05% NASAL SPRAY 16 GM (FLONASE) SCH (09:28)
[2021-01-24 14:00] VITALS: BP 154/90
[2021-01-24] MEDS ORDERED: RAMELTEON 8 MG TAB (ROZEREM) PO PRN (15:25)
--- NOTE | 2021-01-24 15:26 | IPNPDOC ---
Text Note Date of Service The patient was seen on 01/24/21. NOTE Subjective: Patient stated that she feels little bit better today, less cough. Patient reported insomnia Objective: GENERAL APPEARANCE: NAD HEENT: no scleral icterus, no JVD, EOMI CARDIOVASCULAR: S1S2 LUNGS: Diminished lung sounds bilaterally ABDOMEN: soft & not tender w palpation MUSCULOSKELETAL: no cyanosis, no swelling INTEGUMENT: no generalized pallor NEUROLOGICAL: cranial nerve function from 2-12 intact, follows commands, speech not dysarthric Assessment and plan: Patient is 65 years old male with past medical history of hypertension, hyperlipidemia, CAD, GERD, anxiety, chronic back pain, and OA presented to hospital with increased shortness of breath and intermittent cough. Patient was tested positive for upper respiratory infection secondary to RSV SIRS Secondary to community-acquired pneumonia most likely secondary to RSV superimposed with bacterial component Blood culture, sputum culture pending Rocephin IV, doxycycline IV Incentive spirometry IV fluid Tachycardia Secondary to SIRS Improved Abdominal pain Resolved Constipation Continue bowel regimen Transaminitis Continue to monitor Hypertension Continue home meds Blood pressure under control GERD Continue PPI JAY: CPAP at bedtime Insomnia Melatonin CAD: Continue patient Plavix Obesity: Complicates care Chronic pain: Patient with back stimulator. -Continue as needed home pain management medications DVT prophylaxis with heparin subcutaneously VS,Fishbone, I+O VS, Fishbone, I+O Laboratory Tests 01/24/21 06:37 Vital Signs Date Time Temp Pulse Resp B/P (MAP) Pulse Ox O2 Delivery O2 Flow Rate FiO2 01/24/21 14:00 97.3 92 18 154/90 (111) 94 Room Air 01/23/21 16:35 1.0 I&O- Last 24 Hours up to 6 AM 01/24/21 06:00 Intake Total 2870 ml Output Total 1450 ml Balance 1420 ml GUILLAUME DAVILA DO Jan 24, 2021 15:26
[2021-01-24] MEDS: traZODone 100 MG TAB PO SCH (20:12)
[2021-01-24] MEDS: CLOPIDOGREL 75 MG TAB PO SCH (20:12)
[2021-01-24] MEDS: GABAPENTIN 300 MG CAP PO SCH (20:12)
[2021-01-24] MEDS: NORTRIPTYLINE 25 MG CAP PO SCH (20:12)
[2021-01-24] MEDS: ATORVASTATIN 20 MG TAB PO SCH (20:13)
[2021-01-24] MEDS: cefTRIAXone SOD 1 GM in D5W MINI-BAG PLUS 50 ML IV SCH (20:13)
[2021-01-24 22:00] VITALS: BP 152/87
[2021-01-25] MEDS: NS 1,000 ML IV SCH ×4 (00:37→23:34)
[2021-01-25] MEDS: PERCOCET 5MG/325MG TAB PO PRN (00:38)
[2021-01-25] MEDS: DOXYCYCLINE HYCLATE 100 MG in D5W MINI-BAG PLUS 100 ML IV SCH (02:12)
[2021-01-25 02:51] VITALS: O2SAT 91
[2021-01-25 06:00] VITALS: BP 148/84
[2021-01-25 07:28] LABS: BASO % 0.2 % (0.0-1.0); HEMATOCRIT 32.4 % (36.0-47.0); HEMOGLOBIN 10.3 g/dl (12.0-15.5); LYMPH # 1.9 10^3/uL (1.5-5.0); MEAN CORPUSCULAR HGB CONC 31.8 g/dl (32.0-36.5); MEAN CORPUSCULAR VOLUME 94.5 fl (80.0-96.0); MONO # 0.9 10^3/uL (0.0-0.8); MONO % 7.8 % (2.0-8.0); NEUTROPHILS # 8.3 10^3/uL (1.5-8.5); NEUTROPHILS % 74.4 % (36.0-66.0); PLATELET COUNT, AUTOMATED 305 10^3/uL (150-450); RED BLOOD COUNT 3.43 10^6/uL (4.00-5.40); WHITE BLOOD COUNT 11.1 10^3/uL (4.0-10.0)
[2021-01-25] MEDS: ADVAIR HFA 230/21MCG INHALER INH SCH ×2 (07:51→20:18)
[2021-01-25 07:52] LABS: BLOOD UREA NITROGEN 11 MG/DL (7-18); CARBON DIOXIDE LEVEL 22 MEQ/L (21-32); CHLORIDE LEVEL 112 MEQ/L (98-107); CREATININE FOR GFR 0.58 MG/DL (0.55-1.30); GLOMERULAR FILTRATION RATE > 60.0 (>45); GLUCOSE, FASTING 82 MG/DL (70-100); POTASSIUM SERUM 3.3 MEQ/L (3.5-5.1); SODIUM LEVEL 142 MEQ/L (136-145)
[2021-01-25] MEDS ORDERED: CEPACOL LOZENGE PO PRN (08:55)
[2021-01-25] MEDS: GABAPENTIN 400MG CAP PO SCH (08:59)
[2021-01-25] MEDS: guaiFENesin SYRUP 200 MG/10 ML UDC PO PRN (08:59)
[2021-01-25] MEDS: SUCRALFATE 1 GM TAB PO SCH ×3 (09:00→21:58)
[2021-01-25] MEDS ORDERED: POTASSIUM CHLORIDE 10MEQ SR TABLET PO ONE ×2 (09:00→14:30)
[2021-01-25] MEDS: ISOSORBIDE MON. (IMDUR) 30 MG XR TAB PO SCH (09:00)
[2021-01-25] MEDS: TOPIRAMATE (TopAMAX) 100 MG TAB PO SCH ×2 (09:00→22:03)
[2021-01-25] MEDS: CALCIUM/VITAMIN D 500 MG TAB PO SCH ×2 (09:00→22:01)
[2021-01-25] MEDS: SERTRALINE HCL 50 MG TAB PO SCH (09:00)
[2021-01-25] MEDS: BACLOFEN 10 MG TAB PO SCH ×2 (09:00→21:59)
[2021-01-25] MEDS: bisoproloL fumarate 10 MG TAB PO SCH (09:00)
[2021-01-25] MEDS: DOCUSATE SODIUM 100MG CAPSULE PO SCH ×2 (09:00→21:58)
[2021-01-25] MEDS: FLUTICASONE PROP 0.05% NASAL SPRAY 16 GM (FLONASE) SCH (09:01)
[2021-01-25] MEDS: MIRALAX *UNIT DOSE* 17GM PACKET PO SCH (09:08)
[2021-01-25] MEDS: LACTOBACILLUS ACIDOPHILUS CAP (BACID) PO SCH (09:08)
[2021-01-25] MEDS: PANTOPRAZOLE 40MG TAB (PROTONIX) PO SCH ×2 (09:08→22:03)
[2021-01-25] MEDS: predniSONE 20 MG TAB PO SCH (09:08)
[2021-01-25] MEDS: MONTELUKAST 10 MG TAB PO SCH (09:09)
[2021-01-25] MEDS: BENZONATATE 100MG CAPSULE PO SCH ×3 (09:15→22:03)
[2021-01-25] MEDS ORDERED: ISOVUE-370 76% 100ML VIAL As Ordered ONE (10:41)
--- NOTE | 2021-01-25 11:32 | REP ---
INDICATION: pna. COMPARISON: CT 12/29/2019, radiograph 01/22/2021. TECHNIQUE: CT chest performed following the intravenous administration of 100 cc of Isovue 370. Sagittal and coronal reconstruction images are performed. FINDINGS: Lungs: There is heterogeneous consolidative opacity in the posterior segment of the right upper lobe with air bronchograms compatible with pneumonic infiltrate. There is mild patchy infiltrate or atelectasis in the right middle lobe and lower lobe, as well as in the lingula and left lower lobe. Mediastinum: No adenopathy. Frances: No adenopathy. Axilla: No adenopathy. Pleura: There are small bilateral pleural effusions. Heart: Not enlarged. Thoracic aorta: No aneurysm or dissection. Upper abdominal structures: There is a small hiatal hernia.. Visualized osseous structures: There are degenerative changes of the spine without compression deformity. Dorsal column stimulator leads are noted in the spinal canal. Metallic plate and screws are seen in the lower cervical spine. IMPRESSION: Consolidative infiltrate in the posterior segment of the right upper lobe. There is a lesser degree of mild patchy infiltrate or atelectasis in the right middle lobe and lower lobe as well as in the lingula and left lower lobe. There are small bilateral pleural effusions. <Electronically signed by Zhou Diaz > 01/25/21 1122
[2021-01-25] MEDS ORDERED: LORazepam 1 MG TAB PO ONE (13:00)
[2021-01-25 14:00] VITALS: BP 168/85
--- NOTE | 2021-01-25 14:42 | IPNPDOC ---
Text Note Date of Service The patient was seen on 01/25/21. NOTE Subjective: No any acute events overnight. Patient was told me that she is u pset and anxious because her sister recently Objective: GENERAL APPEARANCE: NAD HEENT: no scleral icterus, no JVD, EOMI CARDIOVASCULAR: S1S2 LUNGS: Diminished lung sounds bilaterally ABDOMEN: soft & not tender w palpation MUSCULOSKELETAL: no cyanosis, no swelling INTEGUMENT: no generalized pallor NEUROLOGICAL: cranial nerve function from 2-12 intact, follows commands, speech not dysarthric Assessment and plan: Patient is 65 years old male with past medical history of hypertension, hyperlipidemia, CAD, GERD, anxiety, chronic back pain, and OA presented to hospital with increased shortness of breath and intermittent cough. Patient was tested positive for upper respiratory infection secondary to RSV SIRS/gram-negative community-acquired pneumonia Secondary to community-acquired pneumonia most likely secondary to RSV superimposed with bacterial component Blood culture negative, sputum culture positive for Haemophilus influenza I changed Rocephin IV, doxycycline IV to Augmentin p.o. and azithromycin p.o. Incentive spirometry Tachycardia Secondary to SIRS Improved Abdominal pain Resolved Constipation Continue bowel regimen Transaminitis Continue to monitor Hypertension Continue home meds Blood pressure under control GERD Continue PPI JAY: CPAP at bedtime Insomnia Melatonin CAD: Continue patient Plavix Obesity: Complicates care Chronic pain: Patient with back stimulator. -Continue as needed home pain management medications DVT prophylaxis with heparin subcutaneously VS,Fishbone, I+O VS, Fishbone, I+O Laboratory Tests 01/25/21 06:49 Vital Signs Date Time Temp Pulse Resp B/P (MAP) Pulse Ox O2 Delivery O2 Flow Rate FiO2 01/25/21 09:00 148/84 01/25/21 06:00 98.0 69 20 94 Room Air 01/25/21 02:51 1.0 I&O- Last 24 Hours up to 6 AM 01/25/21 06:00 Intake Total 4490 ml Output Total 1900 ml Balance 2590 ml GUILLAUME DAVILA DO Jan 25, 2021 14:42
[2021-01-25] MEDS: AZITHROMYCIN 250MG TABLET PO SCH (15:21)
[2021-01-25] MEDS ORDERED: DOXYCYCLINE HYCLATE 100MG TABLET PO SCH (18:00)
[2021-01-25] MEDS: AUGMENTIN 875 MG TAB PO SCH (21:57)
[2021-01-25] MEDS: ATORVASTATIN 20 MG TAB PO SCH (21:59)
[2021-01-25 22:00] VITALS: BP 164/102; O2SAT 91
[2021-01-25] MEDS: GABAPENTIN 300 MG CAP PO SCH (22:00)
[2021-01-25] MEDS: NORTRIPTYLINE 25 MG CAP PO SCH (22:01)
[2021-01-25] MEDS: CLOPIDOGREL 75 MG TAB PO SCH (22:02)
[2021-01-25] MEDS: traZODone 100 MG TAB PO SCH (22:05)
[2021-01-26 05:30] VITALS: BP 178/101
[2021-01-26 05:45] VITALS: BP 190/92
[2021-01-26] MEDS: BENZONATATE 100MG CAPSULE PO SCH ×2 (05:46→14:12)
[2021-01-26] MEDS: bisoproloL fumarate 10 MG TAB PO SCH (05:49)
[2021-01-26 07:58] VITALS: BP 174/90
[2021-01-26] MEDS: ADVAIR HFA 230/21MCG INHALER INH SCH (07:59)
[2021-01-26 08:09] LABS: BASO # 0.1 10^3/uL (0.0-0.2); BASO % 0.5 % (0.0-1.0); EOS % 0.3 % (0.0-3.0); HEMATOCRIT 35.4 % (36.0-47.0); HEMOGLOBIN 11.4 g/dl (12.0-15.5); LYMPH # 2.2 10^3/uL (1.5-5.0); LYMPH % 17.4 % (24.0-44.0); MEAN CORPUSCULAR HEMOGLOBIN 30.2 pg (27.0-33.0); MEAN CORPUSCULAR HGB CONC 32.2 g/dl (32.0-36.5); MEAN CORPUSCULAR VOLUME 93.7 fl (80.0-96.0); MONO # 0.9 10^3/uL (0.0-0.8); MONO % 7.4 % (2.0-8.0); NEUTROPHILS # 9.2 10^3/uL (1.5-8.5); NEUTROPHILS % 72.3 % (36.0-66.0); PLATELET COUNT, AUTOMATED 352 10^3/uL (150-450); RED BLOOD COUNT 3.78 10^6/uL (4.00-5.40); WHITE BLOOD COUNT 12.7 10^3/uL (4.0-10.0)
[2021-01-26] MEDS: GABAPENTIN 400MG CAP PO SCH (08:12)
[2021-01-26] MEDS: NS 1,000 ML IV SCH (08:12)
[2021-01-26] MEDS: AZITHROMYCIN 250MG TABLET PO SCH (08:12)
[2021-01-26] MEDS: SUCRALFATE 1 GM TAB PO SCH (08:12)
[2021-01-26] MEDS: BACLOFEN 10 MG TAB PO SCH (08:12)
[2021-01-26] MEDS: ISOSORBIDE MON. (IMDUR) 30 MG XR TAB PO SCH (08:13)
[2021-01-26] MEDS: PANTOPRAZOLE 40MG TAB (PROTONIX) PO SCH (08:13)
[2021-01-26] MEDS: TOPIRAMATE (TopAMAX) 100 MG TAB PO SCH (08:13)
[2021-01-26] MEDS: predniSONE 20 MG TAB PO SCH (08:13)
[2021-01-26] MEDS: SERTRALINE HCL 50 MG TAB PO SCH (08:13)
[2021-01-26] MEDS: MONTELUKAST 10 MG TAB PO SCH (08:13)
[2021-01-26] MEDS: AUGMENTIN 875 MG TAB PO SCH (08:13)
[2021-01-26] MEDS: LACTOBACILLUS ACIDOPHILUS CAP (BACID) PO SCH (08:13)
[2021-01-26] MEDS: CALCIUM/VITAMIN D 500 MG TAB PO SCH (08:14)
[2021-01-26] MEDS: DOCUSATE SODIUM 100MG CAPSULE PO SCH (08:14)
[2021-01-26] MEDS: PERCOCET 5MG/325MG TAB PO PRN (08:14)
[2021-01-26] MEDS: FLUTICASONE PROP 0.05% NASAL SPRAY 16 GM (FLONASE) SCH (08:14)
[2021-01-26] MEDS: MIRALAX *UNIT DOSE* 17GM PACKET PO SCH (08:14)
[2021-01-26 08:36] LABS: BLOOD UREA NITROGEN 8 MG/DL (7-18); CALCIUM LEVEL 8.3 MG/DL (8.8-10.2); CARBON DIOXIDE LEVEL 24 MEQ/L (21-32); CHLORIDE LEVEL 109 MEQ/L (98-107); CREATININE FOR GFR 0.63 MG/DL (0.55-1.30); GLOMERULAR FILTRATION RATE > 60.0 (>45); GLUCOSE, FASTING 74 MG/DL (70-100); POTASSIUM SERUM 3.9 MEQ/L (3.5-5.1); SODIUM LEVEL 141 MEQ/L (136-145)
[2021-01-26] MEDS ORDERED: PRED10TA2 PO (11:26)
[2021-01-26] MEDS ORDERED: GUAISYP5 PO (11:26)
[2021-01-26] MEDS ORDERED: AMOX875T2 PO (11:26)
[2021-01-26] MEDS ORDERED: AZIT-12 PO (11:26)
[2021-01-26 11:57] VITALS: BP 158/86
[2021-01-26 13:15] VITALS: BP 150/85
--- NOTE | 2021-01-26 18:20 | DS.PDOC ---
Discharge Summary General Date of Admission Jan 23, 2021 at 00:14 Date of Discharge 01/26/21 Discharge Summary PROCEDURES PERFORMED DURING STAY: [None]. ADMITTING DIAGNOSES: SIRS/gram-negative community-acquired pneumonia Abdominal pain Transaminitis Hypertension GERD Constipation Tachycardia DISCHARGE DIAGNOSES: SIRS/gram-negative community-acquired pneumonia Abdominal pain Transaminitis Hypertension GERD Constipation Tachycardia COMPLICATIONS/CHIEF COMPLAINT: RSV. HISTORY OF PRESENT ILLNESS: Patient is 65 years old male with past medical history of hypertension, hyperlipidemia, CAD, GERD, anxiety, chronic back pain, and OA presented to hospital with increased shortness of breath and intermittent cough. Patient was tested positive for upper respiratory infection secondary to RSV HOSPITAL COURSE: During the hospital stay the following issues addressed SIRS/gram-negative community-acquired pneumonia Secondary to community-acquired pneumonia most likely secondary to RSV superimposed with bacterial component Blood culture negative, sputum culture positive for Haemophilus influenza Patient received a course of antibiotic therapy Patient received incentive spirometry Tachycardia Secondary to SIRS Improved Abdominal pain Resolved Constipation Continue bowel regimen Transaminitis Continue to monitor Hypertension Continue home meds Blood pressure under control GERD Continue PPI JAY: CPAP at bedtime Insomnia Melatonin CAD: Continue patient Plavix Obesity: Complicates care Chronic pain: Patient with back stimulator. -Continue as needed home pain management medications DISCHARGE MEDICATIONS: Please see below. ALLERGIES: Please see below. PHYSICAL EXAMINATION ON DISCHARGE: VITAL SIGNS: Please see below. GENERAL APPEARANCE: NAD HEENT: no scleral icterus, no JVD, EOMI CARDIOVASCULAR: S1S2 LUNGS: Diminished lung sounds bilaterally ABDOMEN: soft & not tender w palpation MUSCULOSKELETAL: no cyanosis, no swelling INTEGUMENT: no generalized pallor NEUROLOGICAL: cranial nerve function from 2-12 intact, follows commands, speech LABORATORY DATA: Please see below. IMAGING: COMPARISON: CT 12/29/2019, radiograph 01/22/2021. TECHNIQUE: CT chest performed following the intravenous administration of 100 cc of Isovue 370. Sagittal and coronal reconstruction images are performed. FINDINGS: Lungs: There is heterogeneous consolidative opacity in the posterior segment of the right upper lobe with air bronchograms compatible with pneumonic infiltrate. There is mild patchy infiltrate or atelectasis in the right middle lobe and lower lobe, as well as in the lingula and left lower lobe. Mediastinum: No adenopathy. Frances: No adenopathy. Axilla: No adenopathy. Pleura: There are small bilateral pleural effusions. Heart: Not enlarged. Thoracic aorta: No aneurysm or dissection. Upper abdominal structures: There is a small hiatal hernia.. Visualized osseous structures: There are degenerative changes of the spine without compression deformity. Dorsal column stimulator leads are noted in the spinal canal. Metallic plate and screws are seen in the lower cervical spine. IMPRESSION: Consolidative infiltrate in the posterior segment of the right upper lobe. There is a lesser degree of mild patchy infiltrate or atelectasis in the right middle lobe and lower lobe as well as in the lingula and left lower lobe. There are small bilateral pleural effusions. <Electronically signed by Zhou Diaz > 01/25/21 1128 DD: Zhou Diaz MD, MD 01/25/211118 DT: ANNA 01/25/211127 DS: JASON 01/25/21111801/25/211118 [~ rep ct labl] PROGNOSIS: ACTIVITY: [As tolerated]. DIET: Regular DISPOSITION: 01 Home, Self-Care. DISCHARGE INSTRUCTIONS: Follow-up with PCP Continue incentive spirometry DISCHARGE CONDITION: [Stable]. TIME SPENT ON DISCHARGE: 40 minutes. Vital Signs/I&Os Vital Signs Date Time Temp Pulse Resp B/P (MAP) Pulse Ox O2 Delivery O2 Flow Rate FiO2 01/26/21 13:15 150/85 (106) 01/26/21 08:44 16 01/26/21 07:59 89 01/26/21 05:30 98.1 91 Room Air 01/23/21 16:35 1.0 I&O- Last 24 Hours up to 6 AM 01/26/21 06:00 Intake Total 2815 ml Output Total 3475 ml Balance -660 ml Laboratory Data Labs 24H Laboratory Tests 2 01/26/21 07:34: Immature Granulocyte % (Auto) 2.1, Neutrophils (%) (Auto) 72.3H, Lymphocytes (%) (Auto) 17.4L, Monocytes (%) (Auto) 7.4, Eosinophils (%) (Auto) 0.3, Basophils (%) (Auto) 0.5, Neutrophils # (Auto) 9.2H, Lymphocytes # (Auto) 2.2, Monocytes # (Auto) 0.9H, Eosinophils # (Auto) 0.0, Basophils # (Auto) 0.1, Nucleated Red Blood Cells % (auto) 0.0, Anion Gap 8, Glomerular Filtration Rate > 60.0, Calcium Level 8.3L CBC/BMP Laboratory Tests 01/26/21 07:34 Microbiology Microbiology 01/22/21 Respiratory Virus Panel (PCR) (BECK) - Final, Complete Respiratory Syncytial Virus 01/22/21 Blood Culture - Preliminary, Resulted No Growth after 72 hours. All specime... 01/22/21 Gram Stain - Final, Complete 01/22/21 Sputum Culture - Final, Complete Haemophilus Influenzae 01/22/21 Blood Culture - Preliminary, Resulted No Growth after 72 hours. All specime... Discharge Medications Scheduled Amoxicillin/Potassium Clav (Amox-Clav 875-125 mg Tablet) 1 Each Tablet, 875 MG PO BID Atorvastatin Calcium (Atorvastatin Calcium) 80 Mg Tablet, 80 MG PO QHS, (Reported) Azithromycin (Azithromycin) 250 Mg Tablet, 500 MG PO DAILY Baclofen (Baclofen) 10 Mg Tablet, 10 MG PO BID, (Reported) Bisoprolol Fumarate (Bisoprolol Fumarate) 10 Mg Tablet, 10 MG PO DAILY, (Reported) Calcium Carbonate/Vitamin D3 (Calcium 500-Vit D3 400 Tablet) 1 Each Tablet, 1 TAB PO BID, (Reported) Clopidogrel Bisulfate (Clopidogrel) 75 Mg Tablet, 75 MG PO QHS, (Reported) Cyclosporine (Restasis) 0.05% Droperette, 1 DROP OU BID, (Reported) Fluticasone Propion/Salmeterol (Advair Hfa 230-21 Mcg Inhaler) 12 Gm Hfa.aer.ad, 2 PUFF INH BID, (Reported) Fluticasone Propionate (Flonase Allergy Relief) 9.9 Ml [place].susp, 50 MCG NA DAILY, (Reported) Gabapentin (Gabapentin) 400 Mg Capsule, 400 MG PO DAILY, (Reported) Gabapentin (Gabapentin) 600 Mg Tablet, 600 MG PO QHS, (Reported) Isosorbide Mononitrate (Isosorbide Mononitrate ER) 30 Mg Tab.er.24h, 30 MG PO DAILY, (Reported) Lisinopril (Lisinopril) 20 Mg Tablet, 20 MG PO QHS, (Reported) Melatonin (Melatonin) 10 Mg Capsule, 10 MG PO QHS, (Reported) Montelukast Sodium (Montelukast Sodium) 10 Mg Tablet, 10 MG PO DAILY, (Reported) Nortriptyline HCl (Nortriptyline HCl) 25 Mg Capsule, 25 MG PO QHS, (Reported) Pantoprazole Sodium (Pantoprazole Sodium) 40 Mg Tablet.dr, 40 MG PO BID, (Reported) Prednisone (Prednisone) 10 Mg Tablet, 10 MG PO TAPER Take 4 tabs daily x 3 days, then 3 tabs daily x 3 days, then 2 tabs daily x 3 days, then 1 tab daily x 3 days and stop Sertraline Hcl (Zoloft) 50 Mg Tab, 50 MG PO DAILY, (Reported) Sucralfate (Sucralfate) 1 Gm Tablet, 1 GM PO TID, (Reported) Topiramate (Topiramate) 100 Mg Tablet, 100 MG PO BID, (Reported) Trazodone HCl (Trazodone HCl) 100 Mg Tablet, 100 MG PO QHS, (Reported) Scheduled PRN Albuterol Sulfate (Proventil Hfa) 6.7 Gm Hfa.aer.ad, 2 MCG INH Q4HP PRN for SOB/WHEEZING, (Reported) Guaifenesin/Dextromethorphan (Guaifenesin Dm Syrup) 120 Ml Syrup, 5 ML PO Q4HP PRN for COUGH Lidocaine (Lidoderm) 5% Adh..patch, 1 PATCH TD DAILY PRN for PAIN, (Reported) Apply to BACK, Remove patch after 12 hours Nitroglycerin (Nitroglycerin) 0.4 Mg Sub, for CHEST PAIN, (Reported) Oxycodone/Acetaminophen (Oxycodone-Acetaminophen 5-325) 1 Each Tablet, 1 TAB PO Q8HP PRN for PAIN, (Reported) Allergies Coded Allergies: amoxicillin (Unverified Adverse Reaction, Unknown, diarrhea, 05/29/18) cefuroxime (Unverified Adverse Reaction, Unknown, diarrhea, 05/29/18) clavulanic acid (Unverified Adverse Reaction, Unknown, diarrhea, 05/29/18) morphine (Unverified Adverse Reaction, Unknown, muscle twitching, jittery, 05/29/18) pregabalin (Unverified Adverse Reaction, Unknown, blurred vision, 05/29/18) propoxyphene (Unverified Adverse Reaction, Unknown, hallucinations, dizziness, 05/29/18) GUILLAUME DAVILA DO Jan 26, 2021 18:20
== END 2021-01-26 15:10 | disposition home or self-care (01) | DRG 178 ==
LOC: M ED 21:10 → M ED INP 01-23 00:14 → ENRESERV 01-23 00:37 → M MSPAV 01-23 03:42
PROVIDERS: ADMIT Family Medicine; ATTEND Internal Medicine
DX: J15.6 Pneumonia due to other Gram-negative bacteria (principal); R65.10 Systemic inflammatory response syndrome (SIRS) of non-infectious origin without acute organ dysfunction; R00.0 Tachycardia, unspecified; R07.89 Other chest pain; K59.00 Constipation, unspecified; R74.01 Elevation of levels of liver transaminase levels; I10 Essential (primary) hypertension; K21.9 Gastro-esophageal reflux disease without esophagitis; G47.33 Obstructive sleep apnea (adult) (pediatric); I25.10 Atherosclerotic heart disease of native coronary artery without angina pectoris; E66.9 Obesity, unspecified; M54.9 Dorsalgia, unspecified; G89.29 Other chronic pain; Z79.899 Other long term (current) drug therapy; Z88.1 Allergy status to other antibiotic agents; Z88.5 Allergy status to narcotic agent; Z88.6 Allergy status to analgesic agent; Z88.8 Allergy status to other drugs, medicaments and biological substances; E78.5 Hyperlipidemia, unspecified; F41.9 Anxiety disorder, unspecified; M19.90 Unspecified osteoarthritis, unspecified site; Z90.79 Acquired absence of other genital organ(s); Z95.5 Presence of coronary angioplasty implant and graft; J12.1 Respiratory syncytial virus pneumonia; Z20.822 Contact with and (suspected) exposure to COVID-19

== ENCOUNTER → 2021-04-27 | Outpatient (CLI) | payer MEDICARE, BC ==
[~2021-04-27] MED LIST changes: +AMOX875T2 PO; +AZIT-12 PO; +CALC-175 PO; +GUAISYP5 PO; +LOSA25TA13 PO; -LOSA25TA14 PO; -MONT10TA10 PO; +MONT10TA97 PO; -OYST500T25 PO; +PRED10TA2 PO
== END ==
LOC: M LABSMTC 11:24
PROVIDERS: ATTEND Anesthesiology
DX: Z11.52 Encounter for screening for COVID-19 (principal)

== ENCOUNTER → 2021-05-02 | Outpatient (CLI) | payer MEDICARE, BC ==
[~2021-05-02] MED LIST changes: +BOTOX THERAPEUTIC 100 UNIT VIAL (J0585 PER 1 UNIT) IM ONE
== END ==
LOC: M PAIN 11:30
PROVIDERS: ATTEND Anesthesiology
DX: G43.709 Chronic migraine without aura, not intractable, without status migrainosus (principal); Z79.82 Long term (current) use of aspirin; Z79.02 Long term (current) use of antithrombotics/antiplatelets; Z79.899 Other long term (current) drug therapy
CPT/HCPCS: 64615; J0585

== ENCOUNTER → 2021-06-07 | Outpatient (CLI) | payer MEDICARE, BC ==
[~2021-06-07] MED LIST changes: -BOTOX THERAPEUTIC 100 UNIT VIAL (J0585 PER 1 UNIT) IM ONE
== END ==
LOC: M PAIN 11:30
PROVIDERS: ATTEND Nurse Practitioner Family
DX: G43.709 Chronic migraine without aura, not intractable, without status migrainosus (principal); I10 Essential (primary) hypertension; G47.30 Sleep apnea, unspecified; I25.2 Old myocardial infarction; E78.00 Pure hypercholesterolemia, unspecified; M79.7 Fibromyalgia; Z79.82 Long term (current) use of aspirin; Z79.891 Long term (current) use of opiate analgesic; Z79.899 Other long term (current) drug therapy; Z88.5 Allergy status to narcotic agent; Z88.8 Allergy status to other drugs, medicaments and biological substances; Z91.048 Other nonmedicinal substance allergy status

== ENCOUNTER → 2021-08-09 | Outpatient (CLI) | payer MEDICARE, BC ==
[2021-08-09 13:06] LABS: BASO # 0.1 10^3/uL (0.0-0.2); BASO % 0.8 % (0.0-1.0); EOS % 0.4 % (0.0-3.0); HEMOGLOBIN 12.3 g/dl (12.0-15.5); LYMPH # 2.4 10^3/uL (1.5-5.0); MEAN CORPUSCULAR HEMOGLOBIN 30.7 pg (27.0-33.0); MEAN CORPUSCULAR HGB CONC 32.4 g/dl (32.0-36.5); MEAN CORPUSCULAR VOLUME 94.8 fl (80.0-96.0); MONO % 8.6 % (2.0-8.0); NEUTROPHILS # 7.5 10^3/uL (1.5-8.5); NEUTROPHILS % 67.6 % (36.0-66.0); PLATELET COUNT, AUTOMATED 321 10^3/uL (150-450); RED BLOOD COUNT 4.01 10^6/uL (4.00-5.40); WHITE BLOOD COUNT 11.1 10^3/uL (4.0-10.0)
== END ==
LOC: M LAB 12:16
PROVIDERS: ATTEND Family Medicine
DX: J45.50 Severe persistent asthma, uncomplicated (principal)

== ENCOUNTER → 2021-09-11 | Outpatient (CLI) | payer MEDICARE, BC | LOC: M LABSMTC 10:56 | PROVIDERS: ATTEND Anesthesiology | DX: Z11.52 Encounter for screening for COVID-19 (principal); Z20.822 Contact with and (suspected) exposure to COVID-19 ==

== ENCOUNTER 2021-09-14 09:12 | Day surgery (SDC) | payer MEDICARE, BC ==
[~2021-09-14] VITALS: Ht 162.6 cm; Wt 90.3 kg
[~2021-09-14 09:12] MED LIST changes: +NS 1,000 ML IV ONE
[2021-09-14] MEDS ORDERED: propofoL 200 MG/20 ML VIAL As Ordered ONE (09:26)
[2021-09-14] MEDS ORDERED: LIDOCAINE 2% 100MG/5ML SDV (FOR ANES.) As Ordered ONE (09:26)
[2021-09-14] MEDS ORDERED: fentaNYL 100 MCG/2 ML INJECTION As Ordered ONE (10:07)
[2021-09-14 10:58] VITALS: BP 142/88
== END 2021-09-14 10:59 | disposition home or self-care (01) ==
LOC: M OPP 09:12
PROVIDERS: ATTEND Surgery
DX: K62.5 Hemorrhage of anus and rectum (principal); K64.8 Other hemorrhoids; K30 Functional dyspepsia; K29.60 Other gastritis without bleeding; K21.00 Gastro-esophageal reflux disease with esophagitis, without bleeding; M79.7 Fibromyalgia; G43.909 Migraine, unspecified, not intractable, without status migrainosus; I25.10 Atherosclerotic heart disease of native coronary artery without angina pectoris; G47.30 Sleep apnea, unspecified; I25.2 Old myocardial infarction; Z95.5 Presence of coronary angioplasty implant and graft; Z79.02 Long term (current) use of antithrombotics/antiplatelets; Z79.51 Long term (current) use of inhaled steroids; Z79.52 Long term (current) use of systemic steroids; Z79.891 Long term (current) use of opiate analgesic; Z79.899 Other long term (current) drug therapy
CPT/HCPCS: 43239; 45378; 88305; J3010

== ENCOUNTER → 2021-09-19 | Outpatient (CLI) | payer MEDICARE, BC ==
[~2021-09-19] MED LIST changes: -NS 1,000 ML IV ONE
== END ==
LOC: M LABSMTC 09:16
PROVIDERS: ATTEND Anesthesiology
DX: Z11.52 Encounter for screening for COVID-19 (principal)

== ENCOUNTER → 2021-09-22 | Outpatient (CLI) | payer MEDICARE, BC ==
[~2021-09-22] MED LIST changes: +BOTOX THERAPEUTIC 100 UNIT VIAL (J0585 PER 1 UNIT) IM ONE
== END ==
LOC: M PAIN 11:00
PROVIDERS: ATTEND Anesthesiology
DX: G43.709 Chronic migraine without aura, not intractable, without status migrainosus (principal); I10 Essential (primary) hypertension; G47.30 Sleep apnea, unspecified; M25.559 Pain in unspecified hip; I25.2 Old myocardial infarction; E78.00 Pure hypercholesterolemia, unspecified; M79.7 Fibromyalgia; Z98.41 Cataract extraction status, right eye; Z98.42 Cataract extraction status, left eye; H53.9 Unspecified visual disturbance; Z79.02 Long term (current) use of antithrombotics/antiplatelets; Z79.82 Long term (current) use of aspirin; Z79.899 Other long term (current) drug therapy; Z79.891 Long term (current) use of opiate analgesic; Z88.5 Allergy status to narcotic agent; Z88.8 Allergy status to other drugs, medicaments and biological substances; Z91.048 Other nonmedicinal substance allergy status
CPT/HCPCS: 64615; J0585

== ENCOUNTER → 2021-11-11 | Outpatient (CLI) | payer MEDICARE, BC ==
[~2021-11-11] MED LIST changes: +ALBU6.7H6 INH; -BOTOX THERAPEUTIC 100 UNIT VIAL (J0585 PER 1 UNIT) IM ONE; +PRED20TA PO; -PROV108A INH
== END ==
LOC: M PAIN 11:00
PROVIDERS: ATTEND Anesthesiology
DX: G89.29 Other chronic pain (principal); R51.9 Headache, unspecified; I10 Essential (primary) hypertension; G47.30 Sleep apnea, unspecified; I25.2 Old myocardial infarction; E78.00 Pure hypercholesterolemia, unspecified; M79.7 Fibromyalgia; Z79.02 Long term (current) use of antithrombotics/antiplatelets; Z79.82 Long term (current) use of aspirin; Z79.899 Other long term (current) drug therapy; Z79.891 Long term (current) use of opiate analgesic; Z88.5 Allergy status to narcotic agent; Z88.8 Allergy status to other drugs, medicaments and biological substances; Z91.048 Other nonmedicinal substance allergy status

== ENCOUNTER → 2021-11-14 | Outpatient (CLI) | payer MEDICARE, BC | LOC: M WHC 10:31 | PROVIDERS: ATTEND Obstetrics & Gynecology | DX: Z12.31 Encounter for screening mammogram for malignant neoplasm of breast (principal) ==

== ENCOUNTER → 2021-11-15 | Outpatient (CLI) | payer MEDICARE, BC | LOC: M PAIN 15:00 | PROVIDERS: ATTEND Anesthesiology | DX: G43.709 Chronic migraine without aura, not intractable, without status migrainosus (principal); G89.29 Other chronic pain; R51.9 Headache, unspecified; I10 Essential (primary) hypertension; G47.30 Sleep apnea, unspecified; I25.2 Old myocardial infarction; E78.00 Pure hypercholesterolemia, unspecified; M79.7 Fibromyalgia; Z79.02 Long term (current) use of antithrombotics/antiplatelets; Z79.82 Long term (current) use of aspirin; Z79.899 Other long term (current) drug therapy; Z79.891 Long term (current) use of opiate analgesic; Z88.5 Allergy status to narcotic agent; Z88.8 Allergy status to other drugs, medicaments and biological substances; Z91.048 Other nonmedicinal substance allergy status ==

== ENCOUNTER → 2021-11-24 | Outpatient (CLI) | payer MEDICARE, BC | LOC: M WHC 13:29 | PROVIDERS: ATTEND Obstetrics & Gynecology | DX: Z13.820 Encounter for screening for osteoporosis (principal); M85.851 Other specified disorders of bone density and structure, right thigh; M85.852 Other specified disorders of bone density and structure, left thigh ==

== ENCOUNTER → 2022-01-15 | Outpatient (CLI) | payer MEDICARE, BC ==
[~2022-01-15] MED LIST changes: -DOXY-350 PO; +DOXY-444 PO
== END ==
LOC: M LABSMTC 11:29
PROVIDERS: ATTEND Anesthesiology
DX: Z01.812 Encounter for preprocedural laboratory examination (principal); Z11.52 Encounter for screening for COVID-19

== ENCOUNTER → 2022-01-19 | Outpatient (CLI) | payer MEDICARE, BC ==
[~2022-01-19] MED LIST changes: +BOTOX THERAPEUTIC 100 UNIT VIAL (J0585 PER 1 UNIT) IM ONE
== END ==
LOC: M PAIN 11:00
PROVIDERS: ATTEND Anesthesiology
DX: G43.709 Chronic migraine without aura, not intractable, without status migrainosus (principal); I10 Essential (primary) hypertension; G47.30 Sleep apnea, unspecified; I25.2 Old myocardial infarction; E78.00 Pure hypercholesterolemia, unspecified; M79.7 Fibromyalgia; M25.559 Pain in unspecified hip; H53.9 Unspecified visual disturbance; Z98.41 Cataract extraction status, right eye; Z98.42 Cataract extraction status, left eye; Z79.02 Long term (current) use of antithrombotics/antiplatelets; Z79.82 Long term (current) use of aspirin; Z79.891 Long term (current) use of opiate analgesic; Z79.899 Other long term (current) drug therapy; Z88.5 Allergy status to narcotic agent; Z88.8 Allergy status to other drugs, medicaments and biological substances; Z91.048 Other nonmedicinal substance allergy status
CPT/HCPCS: 64615; J0585

== ENCOUNTER → 2022-03-08 | Outpatient (REF) | payer MEDICARE, BC ==
[~2022-03-08] MED LIST changes: -BOTOX THERAPEUTIC 100 UNIT VIAL (J0585 PER 1 UNIT) IM ONE
== END ==
LOC: M LAB REF 16:31
PROVIDERS: ATTEND Family Medicine
DX: N39.0 Urinary tract infection, site not specified (principal)

== ENCOUNTER → 2022-03-24 | Outpatient (CLI) | payer MEDICARE, BC | LOC: M PAIN 11:15 | PROVIDERS: ATTEND Nurse Practitioner Family | DX: G89.29 Other chronic pain (principal); G43.709 Chronic migraine without aura, not intractable, without status migrainosus; I10 Essential (primary) hypertension; G47.30 Sleep apnea, unspecified; I25.2 Old myocardial infarction; E78.00 Pure hypercholesterolemia, unspecified; M79.7 Fibromyalgia; H53.9 Unspecified visual disturbance; Z79.02 Long term (current) use of antithrombotics/antiplatelets; Z79.82 Long term (current) use of aspirin; Z79.891 Long term (current) use of opiate analgesic; Z79.899 Other long term (current) drug therapy; Z88.5 Allergy status to narcotic agent; Z88.8 Allergy status to other drugs, medicaments and biological substances; Z91.048 Other nonmedicinal substance allergy status ==

== ENCOUNTER → 2022-03-29 | Outpatient (CLI) | payer MEDICARE, BC | LOC: M WUC 11:05 | PROVIDERS: ATTEND Family Medicine | DX: M85.88 Other specified disorders of bone density and structure, other site (principal); M25.532 Pain in left wrist ==

== ENCOUNTER → 2022-04-24 | Outpatient (CLI) | payer MEDICARE, BC | LOC: M LABSMTC 09:34 | PROVIDERS: ATTEND Anesthesiology | DX: Z01.812 Encounter for preprocedural laboratory examination (principal); Z20.822 Contact with and (suspected) exposure to COVID-19; R06.02 Shortness of breath; G47.33 Obstructive sleep apnea (adult) (pediatric); Z79.891 Long term (current) use of opiate analgesic; Z79.82 Long term (current) use of aspirin; Z79.51 Long term (current) use of inhaled steroids; Z79.899 Other long term (current) drug therapy; Z80.0 Family history of malignant neoplasm of digestive organs; Z82.0 Family history of epilepsy and other diseases of the nervous system; Z82.49 Family history of ischemic heart disease and other diseases of the circulatory system; Z83.3 Family history of diabetes mellitus; Z83.6 Family history of other diseases of the respiratory system; Z88.0 Allergy status to penicillin; Z88.1 Allergy status to other antibiotic agents; Z88.2 Allergy status to sulfonamides; Z88.5 Allergy status to narcotic agent; Z88.8 Allergy status to other drugs, medicaments and biological substances; J30.81 Allergic rhinitis due to animal (cat) (dog) hair and dander; Z91.030 Bee allergy status | CPT/HCPCS: 87635; 94010; G0463 ==

== ENCOUNTER → 2022-04-25 | Outpatient (CLI) | payer MEDICARE, BC ==
[~2022-04-25] MED LIST changes: +BOTOX THERAPEUTIC 100 UNIT VIAL IM ONE
== END ==
LOC: M PAIN 13:00
PROVIDERS: ATTEND Anesthesiology
DX: G43.709 Chronic migraine without aura, not intractable, without status migrainosus (principal); I10 Essential (primary) hypertension; G47.30 Sleep apnea, unspecified; E78.00 Pure hypercholesterolemia, unspecified; M79.7 Fibromyalgia; I25.2 Old myocardial infarction; Z79.02 Long term (current) use of antithrombotics/antiplatelets; Z79.82 Long term (current) use of aspirin; Z79.891 Long term (current) use of opiate analgesic; Z79.899 Other long term (current) drug therapy; Z88.5 Allergy status to narcotic agent; Z88.8 Allergy status to other drugs, medicaments and biological substances; Z91.048 Other nonmedicinal substance allergy status
CPT/HCPCS: 64615; J0585

== ENCOUNTER → 2022-04-26 | Outpatient (REF) | payer MEDICARE, BC ==
[~2022-04-26] MED LIST changes: -BOTOX THERAPEUTIC 100 UNIT VIAL IM ONE
== END ==
LOC: M LAB REF 16:03
PROVIDERS: ATTEND Family Medicine
DX: I25.5 Ischemic cardiomyopathy (principal)

== ENCOUNTER → 2022-05-10 | Outpatient (REF) | payer MEDICARE, BC | LOC: M LAB REF 11:21 | PROVIDERS: ATTEND Family Medicine | DX: N39.0 Urinary tract infection, site not specified (principal) ==

== ENCOUNTER → 2022-06-06 | Outpatient (CLI) | payer MEDICARE, BC | LOC: M PAIN 10:30 | PROVIDERS: ATTEND Nurse Practitioner Family | DX: G43.709 Chronic migraine without aura, not intractable, without status migrainosus (principal); G47.30 Sleep apnea, unspecified; I10 Essential (primary) hypertension; M79.7 Fibromyalgia; Z96.89 Presence of other specified functional implants; Z88.5 Allergy status to narcotic agent; Z88.8 Allergy status to other drugs, medicaments and biological substances; Z91.09 Other allergy status, other than to drugs and biological substances; Z79.82 Long term (current) use of aspirin; Z79.899 Other long term (current) drug therapy ==

== ENCOUNTER → 2022-07-25 | Outpatient (CLI) | payer MEDICARE, BC ==
[2022-07-25 13:52] LABS: BASO # 0.1 10^3/uL (0.0-0.2); BASO % 0.6 % (0.0-1.0); EOS % 0.2 % (0.0-3.0); HEMATOCRIT 40.6 % (36.0-47.0); HEMOGLOBIN 13.5 g/dl (12.0-15.5); LYMPH # 2.2 10^3/uL (1.5-5.0); LYMPH % 18.2 % (24.0-44.0); MEAN CORPUSCULAR HEMOGLOBIN 30.8 pg (27.0-33.0); MEAN CORPUSCULAR HGB CONC 33.3 g/dl (32.0-36.5); MEAN CORPUSCULAR VOLUME 92.5 fl (80.0-96.0); MONO # 0.8 10^3/uL (0.0-0.8); MONO % 6.3 % (2.0-8.0); NEUTROPHILS % 74.3 % (36.0-66.0); PLATELET COUNT, AUTOMATED 305 10^3/uL (150-450); RED BLOOD COUNT 4.39 10^6/uL (4.00-5.40); WHITE BLOOD COUNT 12.2 10^3/uL (4.0-10.0)
[2022-07-25 14:16] LABS: IMMUNOGLOBULIN A 287.2 MG/DL (40-350); IMMUNOGLOBULIN G 655 MG/DL (650-1600); IMMUNOGLOBULIN M 31.2 MG/DL (50-300)
[2022-07-25 14:26] LABS: ERYTHROCYTE SEDIMENTATION RATE 34 mm/hr (0-30)
[2022-07-25 14:37] LABS: IMMUNOGLOBULIN E < 2.5 IU/ML (0-378)
== END ==
LOC: M LAB 13:04
PROVIDERS: ATTEND Allergy & Immunology Allergy
DX: D84.9 Immunodeficiency, unspecified (principal)

== ENCOUNTER → 2022-09-21 | Outpatient (CLI) | payer MEDICARE, BC ==
[~2022-09-21] MED LIST changes: +BOTOX THERAPEUTIC 100 UNIT VIAL IM ONE; -GABA-283 PO; +GABA-284 PO
== END ==
LOC: M PAIN 13:00
PROVIDERS: ATTEND Anesthesiology
DX: G43.709 Chronic migraine without aura, not intractable, without status migrainosus (principal); G47.30 Sleep apnea, unspecified; I10 Essential (primary) hypertension; I25.2 Old myocardial infarction; M79.7 Fibromyalgia; Z96.89 Presence of other specified functional implants; Z88.5 Allergy status to narcotic agent; Z88.8 Allergy status to other drugs, medicaments and biological substances; Z91.09 Other allergy status, other than to drugs and biological substances; Z79.02 Long term (current) use of antithrombotics/antiplatelets; Z79.82 Long term (current) use of aspirin; Z79.899 Other long term (current) drug therapy
CPT/HCPCS: 64615; J0585

== ENCOUNTER → 2022-12-19 | Outpatient (CLI) | payer MEDICARE, BC | LOC: M PAIN 14:15 | PROVIDERS: ATTEND Anesthesiology | DX: G43.709 Chronic migraine without aura, not intractable, without status migrainosus (principal); I10 Essential (primary) hypertension; G47.30 Sleep apnea, unspecified; I25.2 Old myocardial infarction; E78.00 Pure hypercholesterolemia, unspecified; M79.7 Fibromyalgia; H53.8 Other visual disturbances; Z79.02 Long term (current) use of antithrombotics/antiplatelets; Z79.82 Long term (current) use of aspirin; Z79.891 Long term (current) use of opiate analgesic; Z79.899 Other long term (current) drug therapy; Z88.5 Allergy status to narcotic agent; Z88.8 Allergy status to other drugs, medicaments and biological substances; Z91.048 Other nonmedicinal substance allergy status | CPT/HCPCS: 64615; J0585 ==

== ENCOUNTER → 2023-02-07 | Outpatient (CLI) | payer MEDICARE, BC ==
[~2023-02-07] MED LIST changes: -BOTOX THERAPEUTIC 100 UNIT VIAL IM ONE
== END ==
LOC: M PAIN 13:30
PROVIDERS: ATTEND Anesthesiology
DX: G43.709 Chronic migraine without aura, not intractable, without status migrainosus (principal); M79.7 Fibromyalgia; Z79.02 Long term (current) use of antithrombotics/antiplatelets; Z79.82 Long term (current) use of aspirin; Z79.891 Long term (current) use of opiate analgesic; Z79.899 Other long term (current) drug therapy; Z88.5 Allergy status to narcotic agent; Z88.8 Allergy status to other drugs, medicaments and biological substances; Z91.048 Other nonmedicinal substance allergy status

== ENCOUNTER → 2023-03-29 | Outpatient (CLI) | payer MEDICARE, BC ==
[~2023-03-29] MED LIST changes: +BOTOX THERAPEUTIC 100 UNIT VIAL IM ONE
== END ==
LOC: M PAIN 10:00
PROVIDERS: ATTEND Anesthesiology
DX: G43.709 Chronic migraine without aura, not intractable, without status migrainosus (principal); I10 Essential (primary) hypertension; E78.00 Pure hypercholesterolemia, unspecified; M79.7 Fibromyalgia; I25.2 Old myocardial infarction; Z79.82 Long term (current) use of aspirin; Z79.02 Long term (current) use of antithrombotics/antiplatelets; Z79.891 Long term (current) use of opiate analgesic; Z79.899 Other long term (current) drug therapy; Z88.5 Allergy status to narcotic agent; Z88.2 Allergy status to sulfonamides; Z88.8 Allergy status to other drugs, medicaments and biological substances; Z91.048 Other nonmedicinal substance allergy status
CPT/HCPCS: 64615; J0585

== ENCOUNTER → 2023-04-12 | Outpatient (CLI) | payer MEDICARE, BC ==
[~2023-04-12] MED LIST changes: -BOTOX THERAPEUTIC 100 UNIT VIAL IM ONE
== END ==
LOC: M PLAIMG 12:48
PROVIDERS: ATTEND Physician Assistant Surgical
DX: M47.22 Other spondylosis with radiculopathy, cervical region (principal); R09.89 Other specified symptoms and signs involving the circulatory and respiratory systems; M79.661 Pain in right lower leg; M79.662 Pain in left lower leg

== ENCOUNTER → 2023-04-12 | Outpatient (CLI) | payer MEDICARE, BC | LOC: M RAD 13:59 | PROVIDERS: ATTEND Family Medicine | DX: M79.661 Pain in right lower leg (principal); M79.662 Pain in left lower leg ==

== ENCOUNTER → 2023-05-10 | Outpatient (CLI) | payer MEDICARE, BC | LOC: M PAIN 11:00 | PROVIDERS: ATTEND Nurse Practitioner Family | DX: G43.709 Chronic migraine without aura, not intractable, without status migrainosus (principal); I10 Essential (primary) hypertension; G47.30 Sleep apnea, unspecified; I25.2 Old myocardial infarction; E78.00 Pure hypercholesterolemia, unspecified; M79.7 Fibromyalgia; Z79.02 Long term (current) use of antithrombotics/antiplatelets; Z79.82 Long term (current) use of aspirin; Z79.891 Long term (current) use of opiate analgesic; Z79.899 Other long term (current) drug therapy; Z88.5 Allergy status to narcotic agent; Z88.2 Allergy status to sulfonamides; Z88.8 Allergy status to other drugs, medicaments and biological substances; Z91.048 Other nonmedicinal substance allergy status ==

== ENCOUNTER → 2023-05-29 | Outpatient (CLI) | payer MEDICARE, BC ==
[2023-05-29 14:43] LABS: PLATELET COUNT, AUTOMATED 305 10^3/uL (150-450)
[2023-05-29 14:59] LABS: INR 0.91; PARTIAL THROMBOPLASTIN TIME 26.5 SECONDS (24.8-34.2)
== END ==
LOC: M LAB 13:32
PROVIDERS: ATTEND Physician Assistant Surgical
DX: Z01.818 Encounter for other preprocedural examination (principal); Z79.01 Long term (current) use of anticoagulants

== ENCOUNTER → 2023-07-12 | Outpatient (CLI) | payer MEDICARE, BC ==
[~2023-07-12] MED LIST changes: +BOTOX THERAPEUTIC 100 UNIT VIAL IM ONE; +DOXY-440 PO; -DOXY-444 PO
== END ==
LOC: M PAIN 14:30
PROVIDERS: ATTEND Anesthesiology
DX: G43.709 Chronic migraine without aura, not intractable, without status migrainosus (principal); I10 Essential (primary) hypertension; G47.30 Sleep apnea, unspecified; E78.00 Pure hypercholesterolemia, unspecified; M79.7 Fibromyalgia; I25.2 Old myocardial infarction; Z79.02 Long term (current) use of antithrombotics/antiplatelets; Z79.82 Long term (current) use of aspirin; Z79.891 Long term (current) use of opiate analgesic; Z79.899 Other long term (current) drug therapy; Z88.5 Allergy status to narcotic agent; Z88.8 Allergy status to other drugs, medicaments and biological substances; Z88.2 Allergy status to sulfonamides; Z91.048 Other nonmedicinal substance allergy status
CPT/HCPCS: 64615; J0585

== ENCOUNTER → 2023-08-28 | Outpatient (CLI) | payer MEDICARE, BC ==
[~2023-08-28] MED LIST changes: -BOTOX THERAPEUTIC 100 UNIT VIAL IM ONE
== END ==
LOC: M PAIN 10:00
PROVIDERS: ATTEND Nurse Practitioner Family
DX: G43.709 Chronic migraine without aura, not intractable, without status migrainosus (principal); I10 Essential (primary) hypertension; G47.30 Sleep apnea, unspecified; I25.2 Old myocardial infarction; E78.00 Pure hypercholesterolemia, unspecified; M79.7 Fibromyalgia; Z79.02 Long term (current) use of antithrombotics/antiplatelets; Z79.82 Long term (current) use of aspirin; Z79.891 Long term (current) use of opiate analgesic; Z79.899 Other long term (current) drug therapy; Z88.5 Allergy status to narcotic agent; Z88.2 Allergy status to sulfonamides; Z88.8 Allergy status to other drugs, medicaments and biological substances; Z91.048 Other nonmedicinal substance allergy status

== ENCOUNTER → 2023-08-30 | Outpatient (CLI) | payer MEDICARE, BC | LOC: M PLAIMG 13:43 | PROVIDERS: ATTEND Physical Medicine & Rehabilitation | DX: S20.214A Contusion of middle front wall of thorax, initial encounter (principal); M54.50 Low back pain, unspecified; Y93.9 Activity, unspecified; Y92.9 Unspecified place or not applicable ==

== ENCOUNTER → 2023-10-12 | Outpatient (CLI) | payer MEDICARE, BC ==
[~2023-10-12] MED LIST changes: +BOTOX THERAPEUTIC 100 UNIT VIAL IM ONE
== END ==
LOC: M PAIN 15:30
PROVIDERS: ATTEND Anesthesiology
DX: G43.709 Chronic migraine without aura, not intractable, without status migrainosus (principal); I10 Essential (primary) hypertension; G47.30 Sleep apnea, unspecified; I25.2 Old myocardial infarction; E78.00 Pure hypercholesterolemia, unspecified; M79.7 Fibromyalgia; Z79.891 Long term (current) use of opiate analgesic; Z79.82 Long term (current) use of aspirin; Z79.899 Other long term (current) drug therapy; Z88.5 Allergy status to narcotic agent; Z88.2 Allergy status to sulfonamides; Z88.8 Allergy status to other drugs, medicaments and biological substances; Z91.048 Other nonmedicinal substance allergy status
CPT/HCPCS: 64615; J0585

== ENCOUNTER → 2023-11-13 | Outpatient (CLI) | payer MEDICARE, BC ==
[~2023-11-13] MED LIST changes: -BOTOX THERAPEUTIC 100 UNIT VIAL IM ONE; +GABA-1490 PO; -GABA600T4 PO
== END ==
LOC: M PAIN 11:30
PROVIDERS: ATTEND Nurse Practitioner Family
DX: G89.29 Other chronic pain (principal); G43.709 Chronic migraine without aura, not intractable, without status migrainosus; I10 Essential (primary) hypertension; G47.30 Sleep apnea, unspecified; I25.2 Old myocardial infarction; E78.00 Pure hypercholesterolemia, unspecified; M79.7 Fibromyalgia; H53.8 Other visual disturbances; Z79.891 Long term (current) use of opiate analgesic; Z79.899 Other long term (current) drug therapy; Z88.2 Allergy status to sulfonamides; Z88.5 Allergy status to narcotic agent; Z88.8 Allergy status to other drugs, medicaments and biological substances; Z91.048 Other nonmedicinal substance allergy status

== ENCOUNTER → 2023-12-12 | Outpatient (CLI) | payer MEDICARE, BC | LOC: M WHC 13:35 | PROVIDERS: ATTEND Obstetrics & Gynecology | DX: Z12.31 Encounter for screening mammogram for malignant neoplasm of breast (principal); Z13.820 Encounter for screening for osteoporosis; M85.89 Other specified disorders of bone density and structure, multiple sites; R92.323 Mammographic fibroglandular density, bilateral breasts ==

== ENCOUNTER → 2024-01-22 | Outpatient (CLI) | payer MEDICARE, BC ==
[~2024-01-22] MED LIST changes: +BOTOX THERAPEUTIC 100 UNIT VIAL IM ONE
== END ==
LOC: M PAIN 16:00
PROVIDERS: ATTEND Anesthesiology
DX: G43.709 Chronic migraine without aura, not intractable, without status migrainosus (principal); I10 Essential (primary) hypertension; G47.30 Sleep apnea, unspecified; E78.00 Pure hypercholesterolemia, unspecified; M79.7 Fibromyalgia; I25.2 Old myocardial infarction; Z79.02 Long term (current) use of antithrombotics/antiplatelets; Z79.899 Other long term (current) drug therapy; Z88.5 Allergy status to narcotic agent; Z88.2 Allergy status to sulfonamides; Z88.8 Allergy status to other drugs, medicaments and biological substances; Z91.048 Other nonmedicinal substance allergy status
CPT/HCPCS: 64615; J0585

== ENCOUNTER → 2024-03-13 | Outpatient (CLI) | payer MEDICARE, BC ==
[~2024-03-13] MED LIST changes: -BOTOX THERAPEUTIC 100 UNIT VIAL IM ONE
== END ==
LOC: M PAIN 11:15
PROVIDERS: ATTEND Nurse Practitioner Family
DX: G43.709 Chronic migraine without aura, not intractable, without status migrainosus (principal); I10 Essential (primary) hypertension; E78.00 Pure hypercholesterolemia, unspecified; M79.7 Fibromyalgia; Z79.02 Long term (current) use of antithrombotics/antiplatelets; Z79.82 Long term (current) use of aspirin; Z79.891 Long term (current) use of opiate analgesic; Z79.899 Other long term (current) drug therapy; Z88.5 Allergy status to narcotic agent; Z88.2 Allergy status to sulfonamides; Z88.8 Allergy status to other drugs, medicaments and biological substances; Z91.048 Other nonmedicinal substance allergy status

== ENCOUNTER → 2024-03-28 | Outpatient (CLI) | payer MEDICARE, BC ==
[2024-03-28 13:15] LABS: BASO # 0.1 10^3/uL (0.0-0.2); BASO % 0.9 % (0.0-1.0); EOS % 0.5 % (0.0-3.0); HEMATOCRIT 40.1 % (36.0-47.0); LYMPH # 2.3 10^3/uL (1.5-5.0); LYMPH % 27.7 % (24.0-44.0); MEAN CORPUSCULAR HEMOGLOBIN 29.8 pg (27.0-33.0); MEAN CORPUSCULAR HGB CONC 32.4 g/dl (32.0-36.5); MONO # 0.8 10^3/uL (0.0-0.8); MONO % 9.4 % (2.0-8.0); NEUTROPHILS % 61.3 % (36.0-66.0); PLATELET COUNT, AUTOMATED 295 10^3/uL (150-450); RED BLOOD COUNT 4.36 10^6/uL (4.00-5.40); WHITE BLOOD COUNT 8.2 10^3/uL (4.0-10.0)
[2024-03-28 13:20] LABS: ERYTHROCYTE SEDIMENTATION RATE 16 mm/hr (0-30)
[2024-03-28 13:40] LABS: ALBUMIN 3.7 G/DL (3.2-5.2); ALKALINE PHOSPHATASE 109 U/L (35-104); ALT/SGPT 16 U/L (7.0-40); AST/SGOT 13 U/L (<34); BILIRUBIN,TOTAL 0.2 MG/DL (0.3-1.2); BLOOD UREA NITROGEN 14 MG/DL (9-23); C REACTIVE PROTEIN QUANTITATIV 0.87 MG/DL (<1.0); CALCIUM LEVEL 8.2 MG/DL (8.3-10.6); CARBON DIOXIDE LEVEL 24 MMOL/L (20-31); CHLORIDE LEVEL 104 MMOL/L (98-107); CREATININE FOR GFR 0.95 MG/DL (0.55-1.30); GLOMERULAR FILTRATION RATE > 60.0 (>39); GLUCOSE, FASTING 95 MG/DL (74-106); POTASSIUM SERUM 3.7 MMOL/L (3.5-5.1); RHEUMATOID FACTOR QUANT < 3.5 IU/ML (<14); SODIUM LEVEL 138 MMOL/L (136-145); TOTAL PROTEIN 6.5 G/DL (5.7-8.2)
[2024-03-31 16:42] LABS: ANA SCREEN, IFA NEGATIVE (NEGATIVE)
[2024-04-01 21:53] LABS: CYCLIC CITRULLINATED PEPTIDE < 16 UNITS (<20)
== END ==
LOC: M RAD 12:21
PROVIDERS: ATTEND Internal Medicine Rheumatology
DX: R52 Pain, unspecified (principal); R79.82 Elevated C-reactive protein (CRP); H04.123 Dry eye syndrome of bilateral lacrimal glands; M15.9 Polyosteoarthritis, unspecified; M85.841 Other specified disorders of bone density and structure, right hand; M85.842 Other specified disorders of bone density and structure, left hand; M46.1 Sacroiliitis, not elsewhere classified

== ENCOUNTER → 2024-06-03 | Outpatient (REF) | payer MEDICARE, BC | LOC: M LAB REF 17:42 | PROVIDERS: ATTEND Physician Assistant Medical | DX: R51.9 Headache, unspecified (principal) ==

== ENCOUNTER → 2024-06-12 | Outpatient (CLI) | payer MEDICARE, BC ==
[~2024-06-12] MED LIST changes: +TOPI-257 PO; -TOPI100T9 PO
== END ==
LOC: M RAD 08:43
PROVIDERS: ATTEND Family Medicine
DX: R10.11 Right upper quadrant pain (principal); K76.0 Fatty (change of) liver, not elsewhere classified

== ENCOUNTER 2024-09-15 09:25 | Emergency (ER) | payer MEDICARE, BC ==
[~2024-09-15] VITALS: Ht 152.4 cm; Wt 85.5 kg
[~2024-09-15 09:25] MED LIST changes: +CVS10CAP8 PO; +LIDO1ADH93 TD; -LIDO5DIS41 TD; -MELA10CA2 PO
[2024-09-15 09:27] VITALS: TEMP 97.2
[2024-09-15 10:20] LABS: BASO # 0.1 10^3/uL (0.0-0.2); BASO % 0.7 % (0.0-1.0); EOS # 0.1 10^3/uL (0.0-0.5); EOS % 1.0 % (0.0-3.0); LYMPH # 1.7 10^3/uL (1.5-5.0); LYMPH % 20.6 % (24.0-44.0); MONO # 0.7 10^3/uL (0.0-0.8); MONO % 8.8 % (2.0-8.0); NEUTROPHILS # 5.7 10^3/uL (1.5-8.5); NEUTROPHILS % 68.7 % (36.0-66.0); PLATELET COUNT, AUTOMATED 255 10^3/uL (150-450)
[2024-09-15] MEDS: ASPIRIN 81 MG CHEWABLE TABLET PO ONE (10:29)
[2024-09-15 10:30] VITALS: BP 147/76
[2024-09-15] MEDS: NITROGLYCERIN 0.4 MG SUBL TABLET SL PRN (10:30)
[2024-09-15 10:41] LABS: INR 0.89
[2024-09-15 10:52] LABS: CALCIUM LEVEL 8.6 MG/DL (8.3-10.6); CARBON DIOXIDE LEVEL 25.0 MMOL/L (20-31); CHLORIDE LEVEL 100.0 MMOL/L (98-107); CK-MB VALUE MASS 1.8 NG/ML (<3.6); CREATININE FOR GFR 0.89 MG/DL (0.55-1.30); GLOMERULAR FILTRATION RATE 69.3 (>39); MAGNESIUM LEVEL 1.9 MG/DL (1.8-2.4); POTASSIUM SERUM 4.1 MMOL/L (3.5-5.1); SODIUM LEVEL 137.0 MMOL/L (136-145)
[2024-09-15 10:54] LABS: CPK CREATINE PHOSPHOKINASE 90.0 U/L (34-145); MB/CK RELATIVE INDEX 2.0 (< OR =4)
[2024-09-15 11:36] LABS: ALT/SGPT 21.0 U/L (7.0-40); AST/SGOT 22.0 U/L (<34)
[2024-09-15] MEDS ORDERED: HOME MED LIST COMPLETE! XX SCH (13:25)
[2024-09-15] MEDS ORDERED: ISOVUE-370 76% 100 ML VIAL As Ordered ONE (13:41)
[2024-09-15] MEDS: ACETAMINOPHEN 500 MG TAB PO ONE (14:00)
[2024-09-15] MEDS ORDERED: PEPC1TAB5 PO (16:48)
[2024-09-15] MEDS ORDERED: CARA1TAB6 PO (16:48)
[2024-09-15 17:01] VITALS: BP 161/82; O2SAT 97
== END 2024-09-15 17:23 | disposition home or self-care (01) ==
LOC: M ED 09:25
DX: R07.9 Chest pain, unspecified (principal); I10 Essential (primary) hypertension; E78.5 Hyperlipidemia, unspecified; I25.2 Old myocardial infarction; G47.33 Obstructive sleep apnea (adult) (pediatric); M79.7 Fibromyalgia; Z88.1 Allergy status to other antibiotic agents; Z88.5 Allergy status to narcotic agent; Z88.8 Allergy status to other drugs, medicaments and biological substances; Z91.048 Other nonmedicinal substance allergy status; Z79.2 Long term (current) use of antibiotics; Z79.899 Other long term (current) drug therapy
CPT/HCPCS: 36415; 71045; 71275; 80048; 80076; 82550; 82553; 83690; 83735; 84484; 85025; 85610; 85730; 93005; 93041; 94760; 99285; Q9967

== ENCOUNTER 2024-12-04 09:26 | Day surgery (SDC) | payer MEDICARE, BC ==
[~2024-12-04] VITALS: Ht 152.4 cm; Wt 87.5 kg
[~2024-12-04 09:26] MED LIST changes: +CARA1TAB6 PO; -IBUP-1022 PO; +IBUP600T42 PO; +PEPC1TAB5 PO; +THERTAB52 PO
[2024-12-04] MEDS ORDERED: LIDOCAINE 2% 100 MG/5 ML SDV (FOR ANES.) As Ordered ONE (10:08)
[2024-12-04 10:29] VITALS: TEMP 98.2
[2024-12-04 10:44] VITALS: BP 110/69; O2SAT 99
== END 2024-12-04 10:55 | disposition home or self-care (01) ==
LOC: M OPP 09:26
PROVIDERS: ATTEND Surgery
DX: K44.9 Diaphragmatic hernia without obstruction or gangrene (principal); K29.70 Gastritis, unspecified, without bleeding; Z98.890 Other specified postprocedural states; R93.3 Abnormal findings on diagnostic imaging of other parts of digestive tract; G47.30 Sleep apnea, unspecified; Z86.73 Personal history of transient ischemic attack (TIA), and cerebral infarction without residual deficits; Z95.5 Presence of coronary angioplasty implant and graft; Z88.1 Allergy status to other antibiotic agents; Z88.5 Allergy status to narcotic agent; Z88.8 Allergy status to other drugs, medicaments and biological substances; Z91.048 Other nonmedicinal substance allergy status; Z79.899 Other long term (current) drug therapy; J45.909 Unspecified asthma, uncomplicated

== ENCOUNTER → 2024-12-12 | Outpatient (CLI) | payer MEDICARE, BC | LOC: M WHC 12:02 | PROVIDERS: ATTEND Obstetrics & Gynecology | DX: Z12.31 Encounter for screening mammogram for malignant neoplasm of breast (principal); R92.313 Mammographic fatty tissue density, bilateral breasts ==